=== PATIENT | female | born 1970 | race Caucasian/White ===

== ENCOUNTER 2017-08-20 13:04 | Emergency (ER) | payer MEDICAID, SELFPAY ==
--- NOTE | 2017-08-20 13:04 | DT_ITS ---
This patient was seen during an EMR downtime August 13, 2017 - August 20, 2017. This patient may have a combination of paper and electronic documentation or all paper documentation. All documentation is viewable within the e-chart portion of [facility] for each patient visit.
[2017-08-20 13:05] VITALS: BP 139/89; PULSE 85; RESP 16; TEMP 36.4; O2SAT 98; BMI 40.8
--- NOTE | 2017-08-20 13:44 | CT_ITS ---
STUDY: CT ABDOMEN AND PELVIS WITHOUT CONTRAST REASON FOR EXAM: Female, 47 years old. DIFFUSE ABD PAIN X 3 DAYS, HARD STOOL-NOW DIARRHEA -- CHOLECYSTECTOMY, HIATAL HERNIA, . RADIATION DOSAGE (If Supplied By Facility): CTDIvol = ( 17.43 ) mGy, DLP = ( 911.48 ) mGycm TECHNIQUE: Transaxial images were obtained from the dome of the diaphragm to the symphysis pubis without oral contrast, and without intravenous contrast. Sagittal and coronal images were reconstructed. Individualized dose optimization techniques were used for this CT. COMPARISON: August 24, 2016 FINDINGS: The visualized lung bases are unremarkable. The visualized portions of the heart are within normal limits. Normal liver. There is non-visualization of the gallbladder, which may be secondary to either contraction or a prior cholecystectomy. Normal spleen. Normal pancreas. Normal bilateral adrenal glands. Normal right kidney. Normal left kidney. Normal visualized stomach. Normal small intestine. Normal colon. The appendix is visualized and appears normal. Normal abdominal aorta. Normal inferior vena cava. Normal retroperitoneum. Normal urinary bladder. Normal abdominal wall. There are diffuse degenerative changes of the visualized lumbar spine. CT/Abdomen/Pelvis without Cont IMPRESSION: Unremarkable unenhanced CT of the abdomen and pelvis. Cholecystectomy Electronically Signed: Eduard Patel MD at 15:30 EDT Tel , Service support ,
--- NOTE | 2017-08-20 13:49 | ED.DCSUM_ITS ---
- ER Visit Summary Date of Service: 08/20/17 Chief Complaint: Abdominal pain History of Present Illness: The patient is a 47 F who presents for 3 days of abdominal pain. Patient states it is the worst stomachache she is ever had. It is diffuse and now radiating into the right lower quadrant. Patient has associated nausea. She has had multiple episodes of diarrhea with it. She saw her primary care doctor today and states an x-ray of the abdomen was normal and she was sent for further evaluation. No fever, chest pain, shortness of breath , urinary complaints. Patient is status post hysterectomy. Medical history remarkable for irritable bowel syndrome, fibromyalgia. Physical Examination: Vital signs: afebrile, hemodynamically stable, no hypoxia on room air General: well nourished, well developed, appears mildly uncomfortable, moving in bed without difficulty Skin: warm, dry, no rash, no pallor HEENT: normocephalic and atraumatic; PERRL, EOMI, moist mucous membranes Cardiovascular: Tachycardic rate and rhythm without murmurs, no peripheral edema , 2+ pulses all distal extremities Respiratory: No increased work of breathing, lungs are clear to auscultation bilaterally, no rales, rhonchi or wheezing Abdominal: Abdomen is soft, tender in the lower quadrant and epigastric region with normoactive bowel sounds, no guarding or rebound, no masses MSK: Moves all extremities, no deformities, normal strength Neuro: Awake and alert, oriented ?4. No facial droop, sensation and motor function intact and symmetric Test Results: Abnormal Lab Results 08/20/17 08/20/17 08/20/17 14:10 14:20 14:20 WBC 8.1 RBC 4.31 Hgb 12.1 Hct 35.9 L MCV 83.3 MCH 28.1 MCHC 33.7 RDW 14.0 RDW Differential 41.8 Plt Count 252 MPV 10.3 Immature Gran % (Auto) 0.100 Neut % (Auto) 70.9 H Lymph % (Auto) 21.6 [place] % (Auto) 6.3 Eos % (Auto) 0.9 Baso % (Auto) 0.2 Absolute Neuts (auto) 5.7 Absolute Lymphs (auto) 1.74 Total Counted Not Reportable Sodium 140 Potassium 3.8 Chloride 104 Carbon Dioxide 27.0 Anion Gap 9 BUN 8 Creatinine 0.72 Est GFR (MDRD) Af Amer 113 Est GFR (MDRD) Non-Af 93 BUN/Creatinine Ratio 11.2 Glucose 79 Calcium 8.7 Total Bilirubin 0.40 AST 12 L ALT 22 Alkaline Phosphatase 122 H Total Protein 7.6 Albumin 3.3 Globulin 4.3 H Albumin/Globulin Ratio 0.8 L Lipase 181 Urine Color Yellow Urine Clarity Sl. Cloudy Urine pH 5.0 Ur Specific [place] 1.025 Urine Protein 15 H Urine Glucose (UA) Normal Urine Ketones Negative Urine Occult Blood Negative Urine Nitrite Negative Urine Bilirubin Negative Urine Urobilinogen Normal Ur Leukocyte Esterase 25 H Urine RBC 0 SEEN Urine WBC 0-5 SEEN Ur Squamous Epith Cells 5-10 SEEN Urine Bacteria 1+ Urine Mucus 1+ Clinical Impression(s) from Imaging Studies Abdomen/Pelvis CT 08/20/17 13:44 IMPRESSION: Unremarkable unenhanced CT of the abdomen and pelvis. Cholecystectomy Electronically Signed: Eduard Patel MD at 15:30 EDT Tel , Service support , Emergency Department Course and Treatment: Patient presents for 3 days of abdominal pain, now with right lower quadrant pain. Because of this and tenderness in the right lower quadrant, workup to rule out appendicitis was performed. Had no leukocytosis, electrolyte derangements, renal or hepatic dysfunction. CT the abdomen and pelvis showed no acute process. Patient received Bentyl and Zofran as well as IV fluids while in the emergency department. On reevaluation she was feeling better. She was given a prescription for Bentyl and Zofran and instructions to follow-up with her primary care doctor. She was discharged home in improved condition. Treatment Plan: [] Disposition: [] Impression: Abdominal pain This note was generated with [employer] dictation software. It may contain incorrect words, spelling, and punctuation that were not noted in review of the chart prior to signing ED Disposition - Plan for ED Patient: Disposition: Home or Assisted Living Chief Complaint: Abd Pain Instructions: ED Abdominal Pain Unkn Cause Prescriptions: Ondansetron [Zofran Odt] 4 mg PO Q8H PRN PRN #10 tab PRN Reason: Nausea Dicyclomine HCl [Bentyl] 20 mg PO TIDAC #20 cap Referrals: Olguin,Tang, DO [Primary Care Provider] - 3-5 Days if not improving
[2017-08-20] MEDS: Dicyclomine 10 MG Capsule 20 MG PO (14:31)
[2017-08-20] MEDS: Ondansetron 4 MG/2 ML Vial IV (14:31)
[2017-08-20 14:38] LABS: Red Blood Cells-Urine 0 SEEN /hpf (0-5)
[2017-08-20 14:39] LABS: Absolute Lymphocyte Count 1.74 X10^3/ul (0.83-4.51); Absolute Neutrophil Count 5.7 X10^3/uL (2.0-7.7); Basophil# 0.02 X10^3/uL; Basophil% 0.2 % (0-1); Eosinophil# 0.07 X10^3/uL; Eosinophils% 0.9 % (0-5); Hematocrit 35.9 % (37-47); Hemoglobin 12.1 g/dl (12.0-15.0); Lymphocyte # 1.74 X10^3/ul (4.0); Lymphocyte % 21.6 % (19-41); Mean Corp Hgb Conc 33.7 g/gl (32-36); Mean Corpuscular Hgb 28.1 pg (27.0-32.0); Mean Corpuscular Volume 83.3 fL (81-99); Mean Platelet Vol. 10.3 fl (6.2-12.0); Monocyte# 0.51 X10^3/uL; Monocyte% 6.3 % (0-10); Neutrophil % 70.9 % (47-70); POSITIVE COUNT NO; POSITIVE DIFFERENTIAL NO; POSITIVE MORPHOLOGY NO; Platelet Count 252 K/mm3 (150-450); RBC Distribution Width SD 41.8 fl (35.1-43.9); Red Blood Count 4.31 M/mm3 (4.2-5.4); White Blood Count 8.1 K/mm3 (4.4-11.0)
[2017-08-20 14:40] LABS: Color, Urine Yellow (Yellow); Glucose, Dipstick Normal (Normal); Ketone-Dipstick Negative (Negative); Leukocyte Esterase-Dipstick 25 /ul (Negative); Nitrite-Dipstick Negative (Negative); Occult Blood-Urine Negative /ul (Negative); Protein-Dipstick 15 mg/dl (Negative); Specific Gravity, Urine 1.025 (1.002-1.030); Urine Bilirubin Dipstick Negative (Negative); Urine Clarity Sl. Cloudy (Clear); Urine Urobilinogen Normal (Normal)
[2017-08-20 14:46] LABS: Bacteria 1+ /hpf (None Seen); Mucous, Urine 1+ /hpf (<or=2+); Squamous Epithelial Cells - UA 5-10 SEEN /hpf (5-10); White Blood Cells 0-5 SEEN /hpf (0-5)
[2017-08-20 14:57] LABS: ALB/GLOB Ratio 0.8 RATIO (0.9-2.4); AST(SGOT) 12 U/L (15-37); Alanine Aminotransfer ALT/SGPT 22 U/L (13-56); Albumin, Serum 3.3 g/dL (3.2-5.0); Alkaline Phosphatase 122 U/L (45-117); Anion Gap 9 (5-15); BUN 8 mg/dL (7-18); BUN/Creat Ratio 11.2 RATIO (10-20); Calcium,Total 8.7 mg/dL (8.5-10.1); Chloride 104 mmol/L (98-107); Creatinine, Serum 0.72 mg/dL (0.55-1.02); EST Glomerular Filtration Rate 93 mL/min (>60); Est Glom Filt Rate - Afr Amer 113 mL/min (>60); Globulin 4.3 g/dL (2.2-4.2); Glucose 79 mg/dL (74-106); Lipase 181 U/L (73-393); Potassium 3.8 mmol/L (3.5-5.1); Protein, Total 7.6 g/dL (6.4-8.2); Sodium Level 140 mmol/L (136-145)
--- NOTE | 2017-08-20 16:07 | ED.DEP ---
ED Disposition - Plan for ED Patient: Disposition: Home or Assisted Living Chief Complaint: Abd Pain Instructions: ED Abdominal Pain Unkn Cause Prescriptions: Ondansetron [Zofran Odt] 4 mg PO Q8H PRN PRN #10 tab PRN Reason: Nausea Dicyclomine HCl [Bentyl] 20 mg PO TIDAC #20 cap Referrals: Tang Olguin DO [Primary Care Provider] - 3-5 Days if not improving
[2017-08-20 16:26] VITALS: BP 131/62; PULSE 75; RESP 16; O2SAT 98
== END 2017-08-20 16:27 | disposition home or self-care (01) ==
PROVIDERS: Emergency Provider Emergency Medicine; Family Provider Student in an Organized Health Care Education/Training Program; PCP Student in an Organized Health Care Education/Training Program
DX: R10.9 Unspecified abdominal pain (principal); Z90.710 Acquired absence of both cervix and uterus; K58.9 Irritable bowel syndrome, unspecified; M79.7 Fibromyalgia
CPT/HCPCS: 74176; 80053; 81001; 83690; 85025; 96374; 99284; A4216; J2405

== ENCOUNTER 2017-10-23 10:11 | Emergency (ER) | payer MEDICAID, SELFPAY ==
[2017-10-23 10:11] VITALS: BP 137/89; PULSE 77; RESP 12; TEMP 36.7; O2SAT 98; BMI 42.0
--- NOTE | 2017-10-23 11:16 | ED.VISSUMM ---
- ER Visit Summary Date of Service: 10/23/17 Chief Complaint: [Pain right leg] History of Present Illness: The patient is a 47 F [presents to the emergency department complaint of discomfort in her right leg that started yesterday. Patient's are with some mild soreness and then had aching throughout the night. Patient is concerned because she has had history of DVT in that leg before. Patient currently not on any anticoagulation. 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 Patient denies any chest pain or shortness of breath. Patient denies any trauma to her leg.] Physical Examination: [HEENT-PERRLA, EOMI. Cranial nerves II through XII grossly intact. TMs clear. Mucous membranes moist. No adenopathy. Cardiovascular-regular rate and rhythm without murmur or ectopy Lungs-clear to auscultation, chest wall stable without crepitus or subcu emphysema Abdomen-normoactive bowel sounds, soft, nontender, no rebound or rigidity, no peritoneal signs. Extremities-intact ?4, normal range of motion, normal pulses, atraumatic]. Right leg-patient does have some tenderness to the distal third medial aspect of the right lower extremity without evidence of edema or erythema. Patient has normal dorsal pedal, posterior tibial, popliteal pulses. Normal range of motion at the ankle and toes. Test Results: [Venous duplex of the right lower extremity obtained was negative for DVT] Emergency Department Course and Treatment: [] Treatment Plan: [I advised use of ibuprofen or naproxen for discomfort. Patient to follow-up with primary care physician in 5-7 days.] Disposition: [Discharged home in stable condition] Impression: [Right leg pain-etiology uncertain] This note was generated with [employer] dictation software. It may contain incorrect words, spelling, and punctuation that were not noted in review of the chart prior to signing ED Disposition - Plan for ED Patient: Chief Complaint: Other, Pain/Inj Referrals: Tang Olguin DO [Primary Care Provider] -
--- NOTE | 2017-10-23 11:19 | ED.DEP ---
ED Disposition - Plan for ED Patient: Chief Complaint: Other, Pain/Inj Instructions: ED Contusion Lower Ext Referrals: Tang Olguin DO [Primary Care Provider] - 5-7 Days
== END 2017-10-23 11:36 | disposition home or self-care (01) ==
LOC: ED 11:29
PROVIDERS: Emergency Provider Emergency Medicine; Family Provider Student in an Organized Health Care Education/Training Program; PCP Student in an Organized Health Care Education/Training Program
DX: M79.604 Pain in right leg (principal); R05 Cough; K21.9 Gastro-esophageal reflux disease without esophagitis; M79.7 Fibromyalgia; Z86.718 Personal history of other venous thrombosis and embolism
CPT/HCPCS: 93971; 99282

== ENCOUNTER 2017-11-04 22:03 | Emergency (ER) | payer MEDICAID, SELFPAY ==
[2017-11-04 22:04] VITALS: BP 121/80; PULSE 77; RESP 16; TEMP 36.7; O2SAT 98; BMI 41.5
--- NOTE | 2017-11-04 22:56 | ED.DEP ---
ED Disposition - Plan for ED Patient: Chief Complaint: Upper Extremity Injury Instructions: ED Sprain Wrist Referrals: Tang Olguin DO [Primary Care Provider] -
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
[2017-11-04] MEDS: Ibuprofen 600 MG Tablet PO (23:02)
== END 2017-11-04 23:05 | disposition home or self-care (01) ==
PROVIDERS: Emergency Provider Emergency Medicine; Family Provider Student in an Organized Health Care Education/Training Program; PCP Student in an Organized Health Care Education/Training Program
DX: S63.502A Unspecified sprain of left wrist, initial encounter (principal); X58.XXXA Exposure to other specified factors, initial encounter; Y93.83 Activity, rough housing and horseplay; Y92.9 Unspecified place or not applicable; Y99.9 Unspecified external cause status; K21.9 Gastro-esophageal reflux disease without esophagitis; M79.7 Fibromyalgia; F32.9 Major depressive disorder, single episode, unspecified
CPT/HCPCS: 73110; 99283

== ENCOUNTER 2017-11-09 11:08 | Emergency (ER) | payer MEDICAID, SELFPAY ==
[2017-11-09 11:09] VITALS: BP 126/86; PULSE 82; RESP 18; TEMP 36.3; O2SAT 98; BMI 42.0
[2017-11-09] MEDS: Aspirin 81 MG TAB.CHEW 324 MG PO (11:49)
[2017-11-09 12:09] VITALS: O2SAT 100
[2017-11-09 12:12] LABS: Absolute Lymphocyte Count 1.65 X10^3/ul (0.83-4.51); Absolute Neutrophil Count 5.5 X10^3/uL (2.0-7.7); Basophil# 0.02 X10^3/uL; Basophil% 0.3 % (0-1); Eosinophil# 0.08 X10^3/uL; Hematocrit 38.3 % (37-47); Hemoglobin 12.4 g/dl (12.0-15.0); Lymphocyte # 1.65 X10^3/ul (4.0); Lymphocyte % 21.3 % (19-41); Mean Corp Hgb Conc 32.4 g/gl (32-36); Mean Corpuscular Hgb 26.9 pg (27.0-32.0); Mean Corpuscular Volume 83.1 fL (81-99); Mean Platelet Vol. 10.1 fl (6.2-12.0); Monocyte# 0.44 X10^3/uL; Monocyte% 5.7 % (0-10); Neutrophil # 5.54 X10^3/uL (2.7-7.7); Neutrophil % 71.6 % (47-70); Platelet Count 271 K/mm3 (150-450); RBC Distribution Width CV 13.7 % (11.6-14.6); RBC Distribution Width SD 40.8 fl (35.1-43.9); Red Blood Count 4.61 M/mm3 (4.2-5.4); White Blood Count 7.7 K/mm3 (4.4-11.0)
[2017-11-09 12:15] LABS: POSITIVE COUNT NO; POSITIVE DIFFERENTIAL NO; POSITIVE MORPHOLOGY NO
[2017-11-09 12:24] LABS: Anion Gap 9 (5-15); BUN 7 mg/dL (7-18); BUN/Creat Ratio 9.6 RATIO (10-20); Calcium,Total 8.6 mg/dL (8.5-10.1); Chloride 103 mmol/L (98-107); Creatinine, Serum 0.73 mg/dL (0.55-1.02); EST Glomerular Filtration Rate 91 mL/min (>60); Est Glom Filt Rate - Afr Amer 110 mL/min (>60); Estimated Creatinine Clearance 76.16 ml/min; Glucose 83 mg/dL (74-106); Potassium 4.1 mmol/L (3.5-5.1); Sodium Level 140 mmol/L (136-145)
[2017-11-09 12:51] LABS: D-Dimer Quantitative (DVT/PE) < 0.27 FEU/ug/m (0.27-0.49)
--- NOTE | 2017-11-09 13:59 | ED.VISSUMM ---
- ER Visit Summary Date of Service: 11/09/17 Chief Complaint: Cough with chest pain History of Present Illness: The patient is a 47 F prior history of DVTs ?2. History also of irritable bowel, PTSD, fibromyalgia and reflux. Patient's had no recent surgery, hospitalization or travel. No leg pain or swelling. 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 She denies any hemoptysis. She has had DVTs in the past but no prior PE. Patient last 2 days she has had a cough that has been nonproductive with some chest discomfort. At times it is pleuritic. She denies any significant shortness of breath. She is not on any type of control pill and she has had a prior hysterectomy. Primary care physician sent the patient to urgent care today who then sent her into ER. Physical Examination: Well-appearing middle-age female. Vital signs are stable afebrile pulse ox 90% room air no signs of hypoxia. No distress. No tachycardia. H EENT exam unremarkable. Neck nontender no lymphadenopathy. Lungs clear to auscultation bilaterally. Dry cough. No rales no rhonchi no wheezing. Equal symmetrical. Heart regular rate and rhythm no murmur. Abdomen soft nontender. Normal bowel sounds no peritoneal signs. She is moving all 4 extremities. Nontender no edema no cords neurologically she is awake and alert with no Test Results: Chest x-ray shows normal cardiac silhouette and mediastinum. No pneumonia. EKG sinus rhythm rate is 73. No S1 nor to 3 nor T3. CBC normal. White count 7 hemoglobin 12 electrolytes unremarkable. Troponin normal. D-dimer less than 0.27. Normal. Multiple repeat exams patient is doing well. Emergency Department Course and Treatment: Clinically and by labs this is consistent with a viral URI. I do not think she is a PE. I do not think this is cardiac chest pain. I discussed all that with the patient going over her test results. She will be discharged to home. Treatment Plan: Treated as a viral URI. Tylenol and Motrin for pain. Follow-up with her doctor as needed return to the ER if worse. Disposition: discharge Impression: Viral URI with chest pain This note was generated with [employer] software. It may contain incorrect words, spelling, and punctuation that were not noted in review of the chart prior to signing ED Disposition - Plan for ED Patient: Chief Complaint: General Illness Referrals: Tang Olguin DO [Primary Care Provider] -
--- NOTE | 2017-11-09 14:03 | ED.DEP ---
ED Disposition - Plan for ED Patient: Disposition: Home or Assisted Living Chief Complaint: General Illness Instructions: ED URI Viral Referrals: Tang Olguin DO [Primary Care Provider] - 1 Week if not improving Additional Instructions: Tylenol and/or Motrin for pain. Your exam, history and labs consistent with a viral URI. Follow-up with primary care physician if not improving or return to ER if feeling a lot worse.
[2017-11-09 14:12] VITALS: BP 121/79; PULSE 73; RESP 16; O2SAT 99
== END 2017-11-09 14:12 | disposition home or self-care (01) ==
PROVIDERS: Emergency Provider Emergency Medicine; Family Provider Student in an Organized Health Care Education/Training Program; PCP Student in an Organized Health Care Education/Training Program
DX: J06.9 Acute upper respiratory infection, unspecified (principal); R07.9 Chest pain, unspecified; K21.9 Gastro-esophageal reflux disease without esophagitis; M79.7 Fibromyalgia; Z86.718 Personal history of other venous thrombosis and embolism; Z79.01 Long term (current) use of anticoagulants; F43.10 Post-traumatic stress disorder, unspecified; K58.9 Irritable bowel syndrome, unspecified
CPT/HCPCS: 71045; 80048; 84484; 85025; 85379; 93005; 99285; A4216

== ENCOUNTER 2017-11-23 04:12 | Emergency (ER) | payer MEDICAID, SELFPAY ==
[2017-11-23 04:13] VITALS: BP 117/76; PULSE 70; RESP 20; TEMP 36.5; O2SAT 99; BMI 41.7
--- NOTE | 2017-11-23 04:28 | CT_ITS ---
STUDY: CT ABDOMEN AND PELVIS WITH CONTRAST REASON FOR EXAM: Female, 47 years old. Upper abdominal pain after drinking prep for scheduled colonoscopy today. History of GERD, hiatal hernia, HLD, hypertension RADIATION DOSAGE (If Supplied By Facility): CTDIvol = ( 20.34 ) mGy, DLP = ( 1276.29 ) mGycm TECHNIQUE: Transaxial 3.75 mm images were obtained from the dome of the diaphragm to the symphysis pubis without oral contrast. 100 ml of Isovue 300 contrast was administered. Sagittal and coronal images were reconstructed. There is obesity, the entirety of soft tissue is not imaged. Individualized dose optimization techniques were used for this CT. COMPARISON: CT abdomen pelvis 08/20/2017. 08/24/2016. 02/11/2016 FINDINGS: The visualized lung bases are unremarkable. The visualized portions of the heart are within normal limits. There is decreased attenuation of the liver consistent with steatosis. Nonvisualized gallbladder and mild prominence of the extrahepatic biliary system which can be seen with cholecystectomy.. Normal spleen. Normal pancreas. Normal bilateral adrenal glands. Normal right kidney. Normal left kidney. Normal visualized stomach. Normal small intestine. Normal colon. The appendix is visualized and appears normal. Normal abdominal aorta. Normal inferior vena cava. Normal retroperitoneum. Decompressed urinary bladder. There is absence of the uterus consistent with a prior hysterectomy. Normal abdominal wall. Stable small focal sclerosis involving the right humeral head, posterior right acetabulum, posterior L5 vertebral body since 2015 felt to be benign entity such as bone islands. Stable mild levoscoliosis. CT/Abdomen/Pelvis W IV Cont ONLY IMPRESSION: There is no acute abdomen and pelvic pathology. There is no significant interval change. Electronically Signed: Madeleine Little MD at 5:15 EDT , Service support ,
[2017-11-23] MEDS: Ondansetron 4 MG/2 ML Vial IV (04:34)
[2017-11-23] MEDS: 0.9% Normal Saline 1,000 ML 1000 ML IV (04:34)
[2017-11-23] MEDS: Morphine 4 MG/ML Syringe IV (04:34)
[2017-11-23 04:51] LABS: Absolute Lymphocyte Count 1.85 X10^3/ul (0.83-4.51); Absolute Neutrophil Count 6.1 X10^3/uL (2.0-7.7); Basophil# 0.03 X10^3/uL; Basophil% 0.3 % (0-1); Eosinophil# 0.07 X10^3/uL; Eosinophils% 0.8 % (0-5); Hematocrit 38.4 % (37-47); Hemoglobin 12.8 g/dl (12.0-15.0); Lymphocyte # 1.85 X10^3/ul (4.0); Lymphocyte % 21.4 % (19-41); Mean Corp Hgb Conc 33.3 g/gl (32-36); Mean Corpuscular Hgb 27.5 pg (27.0-32.0); Mean Corpuscular Volume 82.6 fL (81-99); Monocyte# 0.53 X10^3/uL; Monocyte% 6.1 % (0-10); Neutrophil # 6.13 X10^3/uL (2.7-7.7); Neutrophil % 71.2 % (47-70); Platelet Count 289 K/mm3 (150-450); RBC Distribution Width CV 13.7 % (11.6-14.6); RBC Distribution Width SD 40.3 fl (35.1-43.9); Red Blood Count 4.65 M/mm3 (4.2-5.4); White Blood Count 8.6 K/mm3 (4.4-11.0)
[2017-11-23 04:52] LABS: Differential Indicated SCAN CRITERIA MET; POSITIVE COUNT NO; POSITIVE DIFFERENTIAL NO; POSITIVE MORPHOLOGY YES
[2017-11-23 04:58] LABS: ALB/GLOB Ratio 0.7 RATIO (0.9-2.4); AST(SGOT) 15 U/L (15-37); Alanine Aminotransfer ALT/SGPT 19 U/L (13-56); Albumin, Serum 3.2 g/dL (3.2-5.0); Alkaline Phosphatase 109 U/L (45-117); Anion Gap 10 (5-15); BUN 10 mg/dL (7-18); BUN/Creat Ratio 11.8 RATIO (10-20); Calcium,Total 8.8 mg/dL (8.5-10.1); Chloride 106 mmol/L (98-107); Creatinine, Serum 0.85 mg/dL (0.55-1.02); EST Glomerular Filtration Rate 77 mL/min (>60); Est Glom Filt Rate - Afr Amer 93 mL/min (>60); Estimated Creatinine Clearance 65.41 ml/min; Globulin 4.4 g/dL (2.2-4.2); Glucose 112 mg/dL (74-106); Lipase 91 U/L (73-393); Potassium 3.4 mmol/L (3.5-5.1); Protein, Total 7.6 g/dL (6.4-8.2); Sodium Level 141 mmol/L (136-145)
--- NOTE | 2017-11-23 05:25 | ED.VISSUMM ---
- ER Visit Summary Date of Service: 11/23/17 Chief Complaint: Abdominal pain History of Present Illness: The patient is a 47 F with abdominal pain that started about 1-1/2 hours prior to arrival while the patient was sitting on the toilet. She describes the pain over her upper abdomen as cramping and burning. Associated with nausea and dry heaves. The patient took GoLYTELY yesterday as a bowel prep for colonoscopy later this morning. Her last dose of GoLYTELY was yesterday at 9:30 PM. The pain started this morning around 2:45 AM and she presents today around 4:15 AM. She has a colonoscopy later today at 8 AM. No other associated symptoms. No history of this in the past. She does have a history of cholecystectomy, section, hysterectomy, et al. Physical Examination: Afebrile and vital signs unremarkable. Patient is tearful and appears very uncomfortable. Heart regular rate and rhythm. Lungs clear. Abdomen is tender to palpation with light touch diffusely. No guarding or rebound. Skin appears normal in color without jaundice, diaphoresis, or pallor. Test Results: CBC normal. Potassium 3.4 and glucose 112. Liver panel and lipase normal. CT showed no acute findings. Emergency Department Course and Treatment: Patient treated with fluids, morphine, and Zofran while awaiting results. She was n.p.o. I suspect her symptoms are related to the GoLYTELY. It can cause cramping and pain. He can also cause colitis. The patient is having very severe pain and is tearful. Because of her severe symptoms, workup was pursued. It was unremarkable. On reevaluation, the patient is feeling better. She would like to follow-up with her doctor this morning at 8 AM for the colonoscopy. Patient will be discharged. Return for any new or worsening issues. Treatment Plan: As above Disposition: Discharged Impression: 1. Abdominal pain This note was generated with [employer] dictation software. It may contain incorrect words, spelling, and punctuation that were not noted in review of the chart prior to signing ED Disposition - Plan for ED Patient: Chief Complaint: Abd Pain Referrals: Tang Olguin DO [Primary Care Provider] -
--- NOTE | 2017-11-23 05:29 | ED.DCSUM_ITS ---
- ER Visit Summary Date of Service: 11/23/17 Chief Complaint: Abdominal pain History of Present Illness: The patient is a 47 F with abdominal pain that started about 1-1/2 hours prior to arrival while the patient was sitting on the toilet. She describes the pain over her upper abdomen as cramping and burning. Associated with nausea and dry heaves. The patient took GoLYTELY yesterday as a bowel prep for colonoscopy later this morning. Her last dose of GoLYTELY was yesterday at 9:30 PM. The pain started this morning around 2:45 AM and she presents today around 4:15 AM. She has a colonoscopy later today at 8 AM. No other associated symptoms. No history of this in the past. She does have a history of cholecystectomy, section, hysterectomy, et al. Physical Examination: Afebrile and vital signs unremarkable. Patient is tearful and appears very uncomfortable. Heart regular rate and rhythm. Lungs clear. Abdomen is tender to palpation with light touch diffusely. No guarding or rebound. Skin appears normal in color without jaundice, diaphoresis, or pallor. Test Results: CBC normal. Potassium 3.4 and glucose 112. Liver panel and lipase normal. CT showed no acute findings. Emergency Department Course and Treatment: Patient treated with fluids, morphine , and Zofran while awaiting results. She was n.p.o. I suspect her symptoms are related to the GoLYTELY. It can cause cramping and pain. He can also cause colitis. The patient is having very severe pain and is tearful. Because of her severe symptoms, workup was pursued. It was unremarkable. On reevaluation, the patient is feeling better. She would like to follow-up with her doctor this morning at 8 AM for the colonoscopy. Patient will be discharged. Return for any new or worsening issues. Treatment Plan: As above Disposition: Discharged Impression: 1. Abdominal pain This note was generated with [employer] dictation software. It may contain incorrect words, spelling, and punctuation that were not noted in review of the chart prior to signing ED Disposition - Plan for ED Patient: Chief Complaint: Abd Pain Referrals: Tang Olguin DO [Primary Care Provider] -
--- NOTE | 2017-11-23 05:29 | ED.DEP ---
ED Disposition - Plan for ED Patient: Chief Complaint: Abd Pain Instructions: ED Abdominal Pain Unkn Cause Referrals: Tang Olguin DO [Primary Care Provider] -
[2017-11-23 05:44] VITALS: BP 114/60; PULSE 87; RESP 18; O2SAT 98
== END 2017-11-23 05:45 | disposition home or self-care (01) ==
LOC: ED 04:36
PROVIDERS: Emergency Provider Emergency Medicine; Family Provider Student in an Organized Health Care Education/Training Program; PCP Student in an Organized Health Care Education/Training Program
DX: R10.9 Unspecified abdominal pain (principal); R11.2 Nausea with vomiting, unspecified; I10 Essential (primary) hypertension; M79.7 Fibromyalgia; Z90.49 Acquired absence of other specified parts of digestive tract; Z90.710 Acquired absence of both cervix and uterus; Z86.010 Personal history of colon polyps
CPT/HCPCS: 74177; 80053; 83690; 85025; 96361; 96374; 96375; 99285; Q9967; A4216; J2405

== ENCOUNTER 2018-05-06 16:27 | Emergency (ER) | payer MEDICAID, SELFPAY ==
[2018-05-06 16:28] VITALS: BP 136/84; PULSE 106; PULSE 107; RESP 17; RESP 18; TEMP 37.1; O2SAT 98; BMI 42.1
--- NOTE | 2018-05-06 16:39 | EKG12_ITS ---
Test Reason : CP Blood Pressure : / mmHG Vent. Rate : 094 BPM Atrial Rate : 094 BPM P-R Int : 146 ms QRS Dur : 070 ms QT Int : 342 ms P-R-T Axes : 053 020 031 degrees QTc Int : 427 ms Normal sinus rhythm Poor R wave progression Confirmed by PAM NAVARRO, JULIANA ([id number]), acquisition editor [employer] ([id number]) on 05/08/2018 10:06:59 AM Referred By: YVES Confirmed By:JULIANA OROZCO MD
--- NOTE | 2018-05-06 18:03 | CT_ITS ---
STUDY: CT ABDOMEN AND PELVIS WITH CONTRAST REASON FOR EXAM: Female, 47 years old. Abdominal pain with nausea and vomiting RADIATION DOSAGE (If Supplied By Facility): CTDIvol = ( 17.07 ) mGy, DLP = ( 1261.41 ) mGycm TECHNIQUE: Transaxial images were obtained from the dome of the diaphragm to the symphysis pubis without oral contrast. Isovue 300 100ML IV/Oral was administered. Sagittal and coronal images were reconstructed. Individualized dose optimization techniques were used for this CT. COMPARISON: November 23, 2017 FINDINGS: The visualized lung bases are unremarkable. The visualized portions of the heart are within normal limits. Normal liver. Gallbladder not visualized consistent with cholecystectomy.. Normal spleen. Normal pancreas. Normal bilateral adrenal glands. Normal right kidney. Normal left kidney. Normal visualized stomach. Normal small intestine. Minor diverticular changes of sigmoid colon without evidence for acute diverticulitis . There is no evidence for acute appendicitis. There are tiny subcentimeter mesenteric nodes with stranding in the fat consistent with nonspecific mesenteric adenitis Normal abdominal aorta. Normal inferior vena cava. Normal retroperitoneum. Normal urinary bladder. Uterus not visualized consistent with hysterectomy Normal abdominal wall. Lumbar spine demonstrates mild spondylosis CT/Abdomen/Pelvis WITH Contrast IMPRESSION: Findings which may be consistent with nonspecific mesenteric adenitis. Status post cholecystectomy and hysterectomy Electronically Signed: Moises Hussein MD at 20:24 EST , Service support ,
--- NOTE | 2018-05-06 18:05 | ED.VIS.GEN ---
History of Present Illness Chief Complaint: General Illness Detail of Chief Complaint: Generalized abdominal pain with nausea, vomiting and diarrhea Informant: Patient Onset: Yesterday Context: Sudden Onset Timing: Continuous, Waxes and wanes Quality: Achy Location: Generalized Current Severity: Mild Maximum Severity: Severe Worsened by: Walking and car ride to the emergency department Relieved by: Nothing Associated Symptoms: Subjective fever with sweats Narrative: Patient middle-aged woman who presents with generalized abdominal pain with nausea, vomiting diarrhea that started last evening. She reports 4 episodes of emesis. She reports greater than 10 loose watery stools. She denies black or maroon colored diarrhea. She denies mucus or blood in her diarrhea. She has not had anything to eat that did not taste normal to her. She was on metronidazole for vaginal infection. 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 She states her client is at [facility] with GI symptoms. She denies history of Pseudomonas enterocolitis. She does report decreased urine output. She does report headache, myalgias, arthralgias slight nonproductive cough. She denies rash. She denies photophobia, neck pain or neck stiffness. Past Medical History - Allergies and Home Meds Allergies/Adverse Reactions: Allergies hydromorphone HCl [From Dilaudid] Allergy (Verified 05/06/18 16:28) Chest tightness warfarin sodium [From Coumadin] Allergy (Verified 05/06/18 16:28) Chest tightness milnacipran HCl [From Savella] Adverse Reaction (Verified 05/06/18 16:28) Other rivaroxaban [From Xarelto] Adverse Reaction (Verified 05/06/18 16:28) Nausea Primary Care Physician: Tang Olguin DO [Primary Care Provider] - Past Medical History: - - Hiatal hernia, GERD, fibromyalgia, DVT, depression and history of overdose Surgical History: cholecystectomy, - - , foot surgery for plantar fasciitis, breast reduction, uterine ablation,egd,carpal tunnel Lives: Spouse/ Significant Other, With Family Smoking Status: Never smoker Drugs: None - Family History Maternal Family History: Reports: Pulmonary Disease, No pertinent history, - - no history of CVD or CVA's, no FH of migraines, Paternal Family History: Reports: Pulmonary Disease Sibling Family History: Reports: - - sister with fibromyalgia Review of Systems General: Reports: Chills, Fever, Malaise, Sweats Eyes: Denies: Visual changes - bilaterally, Blurred Vision - bilaterally, Diplopia ENT: Denies: Bilateral ear pain, Rhinorrhea, Sore throat Cardiovascular: Reports: - - She does report lightheadedness with standing. Denies: Chest pain, Palpitations Respiratory: Reports: Cough. Denies: Dyspnea, Dyspnea on exertion Gastrointestinal: Reports: Abdominal pain, Nausea, Vomiting, Diarrhea, Melena, Hematochezia Genitourinary: Denies: Dysuria, Hematuria, Frequency Musculoskeletal: Reports: Myalgias, Arthralgias. Denies: Neck pain, Back pain, Extremity Pain Skin: Denies: Rash, Wounds Neurological: Denies: Headache, Weakness, Numbness Endocrine: Denies: Polyuria, Polydipsia Hematologic: Denies: Easy bruising Allergy: Denies: Uticaria, Swelling of the mouth Physical Exam Vital Signs/Narrative: Vital Signs Temp Pulse Resp BP Pulse Ox 05/06/18 16:28 98.8 F 107 H 18 136/84 H 98 Inital Vital Signs reviewed: Yes General: Well nourished, Well developed, Obese, No Acute Distress, Acute Distress Eyes: Perrl, EOMI. Negative for: Pale conjunctiva, Scleral icterus ENT: No rhinorrhea, TM's clear, Dry mucous membranes, Nasal congestion Neck: Supple, Nontender, No lymphadenopathy, No JVD Cardiovascular: Regular rhythm, No murmurs, Tachycardia. Negative for: Regular rate Respiratory: No distress, CTA bilaterally, Chest nontender Abdomen: Soft, Nondistended, No masses, Tender, Guarding, Rebound tenderness, Hypoactive bowel sounds, - - Patient has well-healed scars.. Negative for: Normal bowel sounds, Hepatomegaly, Splenomegaly Back: Nontender, Normal Inspection Extremities: Nontender, No edema. Negative for: Edema Skin: Normal color, No rash. Negative for: Cyanosis, Jaundice Neurological: Alert, Oriented x3, Cranial nerves II-XII grossly intact, Normal Strength, Normal Sensation Psychological: Normal affect, Normal Mood Diagnostic/Tx/Re-eval CBC and basic metabolic panel unremarkable. CT of the abdomen with IV and p.o. contrast reveals mesenteric adenitis. - Medical Decision Making Basic metabolic panel was obtained to assess electrolytes and renal function. CBC was obtained to assess for anemia and white count. CT of the abdomen and pelvis with IV and p.o. contrast was obtained since patient has peritoneal findings. This may represent infectious diarrhea, versus viral, versus inflammatory bowel disorder. She denies history of diverticulosis or diverticulitis. Patient has viral illness causing nausea, vomiting diarrhea and mesenteric adenitis as the cause of her pain. Will treat with appropriate medication for pain and discharged home ED Disposition - Plan for ED Patient: Disposition: Home or Assisted Living Diagnosis: Acute mesenteric adenitis, Nausea vomiting and diarrhea, Abdominal pain, Mild dehydration Instructions: ED Adenitis Mesenteric Prescriptions: Dicyclomine HCl [Bentyl] 20 mg PO TIDAC #20 capsule Referrals: Tang Olguin DO [Primary Care Provider] - 1 Week if not improving Additional Instructions: 1. Your prescription was electronically transmitted to [facility] pharmacy on [address] your designated pharmacy. 2. You have a viral illness causing your pain as well as vomiting diarrhea. 3. Take Imodium as instructed on box for diarrhea
[2018-05-06] MEDS: Morphine 4 MG/ML Syringe IV (18:17)
[2018-05-06] MEDS: Ondansetron 4 MG/2 ML Vial IV (18:17)
[2018-05-06] MEDS: 0.9% Normal Saline 1,000 ML 1000 ML IV (18:17)
[2018-05-06 18:31] VITALS: TEMP 37
[2018-05-06 18:39] LABS: Anion Gap 8 (5-15); BUN 13 mg/dL (7-18); BUN/Creat Ratio 16.2 RATIO (10-20); Calcium,Total 8.3 mg/dL (8.5-10.1); Chloride 106 mmol/L (98-107); EST Glomerular Filtration Rate 82 mL/min (>60); Est Glom Filt Rate - Afr Amer 99 mL/min (>60); Glucose 86 mg/dL (74-106); Potassium 3.8 mmol/L (3.5-5.1); Sodium Level 140 mmol/L (136-145)
[2018-05-06 18:49] LABS: Absolute Lymphocyte Count 1.02 X10^3/ul (0.83-4.51); Absolute Neutrophil Count 5.6 X10^3/uL (2.0-7.7); Basophil# 0.01 X10^3/uL; Basophil% 0.1 % (0-1); Eosinophil# 0.08 X10^3/uL; Eosinophils% 1.1 % (0-5); Hematocrit 39.9 % (37-47); Hemoglobin 12.6 g/dl (12.0-15.0); Lymphocyte # 1.02 X10^3/ul (4.0); Lymphocyte % 14.4 % (19-41); Mean Corp Hgb Conc 31.6 g/gl (32-36); Mean Corpuscular Hgb 26.9 pg (27.0-32.0); Mean Corpuscular Volume 85.3 fL (81-99); Mean Platelet Vol. 9.6 fl (6.2-12.0); Monocyte# 0.38 X10^3/uL; Monocyte% 5.4 % (0-10); Neutrophil # 5.58 X10^3/uL (2.7-7.7); Neutrophil % 78.9 % (47-70); Platelet Count 263 K/mm3 (150-450); RBC Distribution Width CV 14.7 % (11.6-14.6); RBC Distribution Width SD 45.6 fl (35.1-43.9); Red Blood Count 4.68 M/mm3 (4.2-5.4); White Blood Count 7.1 K/mm3 (4.4-11.0)
[2018-05-06 18:52] LABS: POSITIVE COUNT NO; POSITIVE DIFFERENTIAL NO; POSITIVE MORPHOLOGY NO
[2018-05-06 19:04] VITALS: BP 128/87; PULSE 78; RESP 17; O2SAT 98
[2018-05-06 19:26] VITALS: BP 125/82; PULSE 76; RESP 13; TEMP 37; O2SAT 100
[2018-05-06] MEDS: Dicyclomine 10 MG Capsule 20 MG PO (21:24)
[2018-05-06] MEDS: Ondansetron ODT 4 MG Tablet 16 MG PO (21:25)
[2018-05-06 21:26] VITALS: BP 109/72; BP 109/82; PULSE 82; RESP 18; TEMP 37; O2SAT 97
== END 2018-05-06 21:28 | disposition home or self-care (01) ==
PROVIDERS: Emergency Provider Emergency Medicine; Family Provider Student in an Organized Health Care Education/Training Program; PCP Student in an Organized Health Care Education/Training Program
DX: I88.0 Nonspecific mesenteric lymphadenitis (principal); R11.2 Nausea with vomiting, unspecified; R19.7 Diarrhea, unspecified; R10.9 Unspecified abdominal pain; E86.0 Dehydration; Z90.49 Acquired absence of other specified parts of digestive tract; K21.9 Gastro-esophageal reflux disease without esophagitis; Z86.718 Personal history of other venous thrombosis and embolism
CPT/HCPCS: 74177; 80048; 83605; 85025; 93005; 96361; 96374; 96375; 99284; J7030; Q9967; J2405

== ENCOUNTER 2018-05-27 11:46 | Emergency (ER) | payer MEDICAID, SELFPAY ==
--- NOTE | 2018-05-27 11:30 | EKG12_ITS ---
Test Reason : CP Blood Pressure : / mmHG Vent. Rate : 079 BPM Atrial Rate : 079 BPM P-R Int : 156 ms QRS Dur : 072 ms QT Int : 354 ms P-R-T Axes : 054 012 027 degrees QTc Int : 405 ms Normal sinus rhythm Normal ECG Confirmed by MARCIAL NAVARRO, DIPESH ([id number]), content editor DAMARI PACK ([id number]) on 05/28/2018 2:16:49 PM Referred By: DANA/GILMAR Confirmed By:DIPESH CEJA MD
[2018-05-27 11:47] VITALS: BP 157/96; PULSE 93; RESP 17; TEMP 35.9; O2SAT 100; BMI 41.5
--- NOTE | 2018-05-27 12:15 | ED.DCSUM_ITS ---
History of Present Illness Chief Complaint: Chest Pain Informant: Patient Onset: Yesterday Context: Sudden Onset Timing: Continuous Quality: Sharp Location: Left anterior Current Severity: Mild Maximum Severity: Moderate Worsened by: Movement and breathing Relieved by: Nothing Associated Symptoms: Nothing Narrative: Patient is a middle-aged woman with a history of hypertension and fibromyalgia who presents with left-sided chest pain. 3 weeks ago she was diagnosed with bronchitis. She reports mild congestion. She denies headache, photophobia, neck pain or neck stiffness. She denies sore throat. She denies shortness of breath, dyspnea on exertion, orthopnea or PND. She has no history of PE or DVT. She denies leg pain, swelling or discoloration. 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 (morbid obesity) Status: Chronic (8) Ovarian cyst Status: Chronic Past Medical History - Allergies and Home Meds Allergies/Adverse Reactions: Allergies hydromorphone HCl [From Dilaudid] Allergy (Verified 05/27/18 11:47) Chest tightness warfarin sodium [From Coumadin] Allergy (Verified 05/27/18 11:47) Chest tightness milnacipran HCl [From Savella] Adverse Reaction (Verified 05/27/18 11:47) Other rivaroxaban [From Xarelto] Adverse Reaction (Verified 05/27/18 11:47) Nausea Primary Care Physician: Tang Olguin DO [Primary Care Provider] - Prior records reviewed: Yes - Per old records/problem list history of DVT Surgical History: cholecystectomy, - - , foot surgery for plantar fasciitis, breast reduction, uterine ablation,egd,carpal tunnel Smoking Status: Never smoker - Family History Maternal Family History: Reports: Pulmonary Disease, No pertinent history, - - no history of CVD or CVA's, no FH of migraines, Paternal Family History: Reports: Pulmonary Disease Sibling Family History: Reports: - - sister with fibromyalgia Review of Systems General: Denies: Chills, Fever, Sweats Eyes: Denies: Visual changes - bilaterally, Diplopia ENT: Denies: Rhinorrhea, Sore throat Cardiovascular: Reports: Chest pain. Denies: Palpitations Respiratory: Denies: Dyspnea, Cough, Dyspnea on exertion, Orthopnea, Paroxysmal nocturnal dyspnea Gastrointestinal: Denies: Abdominal pain, Nausea, Vomiting, Diarrhea, Melena, Hematochezia Genitourinary: Denies: Dysuria, Hematuria, Frequency Musculoskeletal: Denies: Myalgias, Arthralgias, Back pain, Extremity Pain Skin: Denies: Rash, Wounds Neurological: Denies: Headache, Weakness, Numbness Psych: Reports: Depression Hematologic: Denies: Easy bruising, Easy bleeding Allergy: Denies: Uticaria, Swelling of the mouth, Swelling of the tongue Physical Exam Vital Signs/Narrative: Vital Signs Temp Pulse Resp BP Pulse Ox 05/27/18 11:47 96.6 F L 93 17 157/96 H 100 General: Well nourished, Well developed, No Acute Distress Head: Normocephalic, Atraumatic Eyes: Perrl, EOMI ENT: Moist mucous membranes, No rhinorrhea Neck: Supple, Nontender Cardiovascular: Regular rate, Regular rhythm, No murmurs Respiratory: No distress, CTA bilaterally, Chest tenderness - Left fourth fifth intercostal space Abdomen: Soft, Nontender, Nondistended, Normal bowel sounds. Negative for: Hepatomegaly, Splenomegaly, Mass, Pulsatile mass Back: Nontender, Normal Inspection Extremities: Nontender, No edema, - - There is no asymmetry, swelling, discoloration, leg vein distention, palpable cords or tenderness along the distribution of the deep venous system. Skin: Normal color, No rash Neurological: Alert, Oriented x3, Cranial nerves II-XII grossly intact, Normal Strength, Normal Sensation Psychological: - - Affect flat Diagnostic/Tx/Re-eval - Rhythm Strip Rhythm Strip: Sinus Rhythm Rate: 85 Ectopy: None - EKG Initial EKG Interpretation: Sinus Rhythm - Ventricular rate 79 with normal MI interval, QRS duration, QT interval and axis. EKG is normal. - Medical Decision Making With history of bronchitis, reproducible chest pain and normal EKG patient's history and physical exam is consistent with costochondritis. Laboratory testing, radiologic imaging are not indicated. EKG was obtained through protocol. ED Disposition - Plan for ED Patient: Disposition: Home or Assisted Living Diagnosis: Acute costochondritis Instructions: ED Chest Pain Costochondritis Prescriptions: Naproxen [Naprosyn] 500 mg PO BID #14 tablet Referrals: Tang Olguin DO [Primary Care Provider] - 1 Week if not improving Additional Instructions: Your prescription was electronically transmitted to [facility] pharmacy located on [address].
[2018-05-27 12:27] VITALS: BP 118/80; PULSE 76; RESP 16; O2SAT 97
[2018-05-27] MEDS: Naproxen 250 MG Tablet 500 MG PO (12:27)
== END 2018-05-27 12:29 | disposition home or self-care (01) ==
LOC: ED 12:19
PROVIDERS: Emergency Provider Emergency Medicine; Family Provider Student in an Organized Health Care Education/Training Program; PCP Student in an Organized Health Care Education/Training Program
DX: M94.0 Chondrocostal junction syndrome [Tietze] (principal); Z90.49 Acquired absence of other specified parts of digestive tract; E66.01 Morbid (severe) obesity due to excess calories; Z68.41 Body mass index [BMI] 40.0-44.9, adult; K44.9 Diaphragmatic hernia without obstruction or gangrene; K21.9 Gastro-esophageal reflux disease without esophagitis; M79.7 Fibromyalgia; F32.9 Major depressive disorder, single episode, unspecified; Z86.718 Personal history of other venous thrombosis and embolism; I10 Essential (primary) hypertension
CPT/HCPCS: 93005; 99284; A4216

== ENCOUNTER 2018-08-19 15:09 | Observation (INO) | payer MEDICAID, SELFPAY ==
[2018-08-19] VITALS (10 sets, daily range): BP systolic 102–132; BP diastolic 60–85; PULSE 66–77; RESP 12–18; TEMP 36.6–36.9; O2SAT 96–100; BMI 42.0; BMI 42.1; BMI 42.6
--- NOTE | 2018-08-19 16:13 | EKG12_ITS ---
Test Reason : CP ADMIT Blood Pressure : / mmHG Vent. Rate : 073 BPM Atrial Rate : 073 BPM P-R Int : 148 ms QRS Dur : 078 ms QT Int : 376 ms P-R-T Axes : 024 014 024 degrees QTc Int : 414 ms Normal sinus rhythm Normal ECG Confirmed by PAM NAVARRO, JULIANA ([id number]), development editor LORIE SULLIVAN ([id number]) on 08/21/2018 11:43:13 AM Referred By: Agustina Rubalcava Confirmed By:JULIANA OROZCO MD
--- NOTE | 2018-08-19 16:18 | RAD_ITS ---
STUDY: X-RAY CHEST REASON FOR EXAM: Female, 48 years old. Chest pain. TECHNIQUE: Single frontal view of the chest. COMPARISON: November 09, 2017 FINDINGS: There is no new focal consolidation. Normal size heart. Normal mediastinum and sagar. Normal visualized pulmonary arteries. Normal visualized aortic arch and descending thoracic aorta. Normal visualized thoracic spine. Normal visualized ribs, clavicles, and shoulders. There is no demonstrated abnormality of the visualized soft tissue structures of the upper abdomen. RAD/Chest 1 View (Portable) IMPRESSION: No acute cardiopulmonary process. Electronically Signed: Nellie Pierre MD at 16:31 EDT Tel , Service support ,
[2018-08-19 16:27] LABS: Absolute Neutrophil Count 5.9 X10^3/uL (2.0-7.7); Basophil# 0.04 X10^3/uL; Basophil% 0.5 % (0-1); Eosinophil# 0.07 X10^3/uL; Eosinophils% 0.8 % (0-5); Hematocrit 36.8 % (37-47); Hemoglobin 12.1 g/dl (12.0-15.0); Lymphocyte % 24.5 % (19-41); Mean Corp Hgb Conc 32.9 g/gl (32-36); Mean Corpuscular Hgb 27.1 pg (27.0-32.0); Mean Corpuscular Volume 82.3 fL (81-99); Mean Platelet Vol. 9.7 fl (6.2-12.0); Monocyte# 0.47 X10^3/uL; Monocyte% 5.5 % (0-10); Neutrophil # 5.86 X10^3/uL (2.7-7.7); Neutrophil % 68.5 % (47-70); Platelet Count 265 K/mm3 (150-450); RBC Distribution Width CV 14.2 % (11.6-14.6); RBC Distribution Width SD 43.1 fl (35.1-43.9); Red Blood Count 4.47 M/mm3 (4.2-5.4); White Blood Count 8.6 K/mm3 (4.4-11.0)
[2018-08-19 16:28] LABS: POSITIVE COUNT NO; POSITIVE DIFFERENTIAL NO; POSITIVE MORPHOLOGY NO
--- NOTE | 2018-08-19 16:31 | CT_ITS ---
STUDY: CT BRAIN WITHOUT CONTRAST REASON FOR EXAM: Female, 48 years old. Headache RADIATION DOSAGE (If Supplied By Facility): CTDIvol = ( 44.99 ) mGy, DLP = ( 779.24 ) mGycm TECHNIQUE: Transaxial CT imaging of the brain was performed without administration of intravenous contrast material. Individualized dose optimization techniques were used for this CT. COMPARISON: June 07, 2016 FINDINGS: Normal soft tissue structures. Normal calvarium. Normal size ventricles and extra-axial spaces for the patient's age. Normal white matter tracts of the cerebral hemispheres. Normal basal ganglia and thalami. Normal brainstem. Normal cerebellum. There is no intracranial hemorrhage. There are no findings of an acute ischemic infarction. There is trace opacification of the sphenoid sinus. CT/Brain/Head without Contrast IMPRESSION: No acute intracranial process. Trace opacification of the sphenoid sinus consistent with a history of sinusitis. Electronically Signed: Nellie Pierre MD at 17:12 EDT Tel , Service support ,
[2018-08-19 16:36] LABS: Anion Gap 6 (5-15); BUN 10 mg/dL (7-18); BUN/Creat Ratio 12.8 RATIO (10-20); Calcium,Total 8.8 mg/dL (8.5-10.1); Chloride 105 mmol/L (98-107); Creatinine, Serum 0.78 mg/dL (0.55-1.02); EST Glomerular Filtration Rate 84 mL/min (>60); Est Glom Filt Rate - Afr Amer 101 mL/min (>60); Estimated Creatinine Clearance 70.52 ml/min; Glucose 89 mg/dL (74-106); Potassium 3.9 mmol/L (3.5-5.1); Sodium Level 137 mmol/L (136-145)
[2018-08-19] MEDS: Aspirin 81 MG TAB.CHEW 324 MG PO (16:44)
[2018-08-19 17:30] LABS: D-Dimer Quantitative (DVT/PE) < 0.27 FEU/ug/m (0.27-0.49)
--- NOTE | 2018-08-19 18:14 | ED.VISSUMM ---
- ER Visit Summary Date of Service: 08/19/18 Chief Complaint: [Chest pain and dizziness] History of Present Illness: The patient is a 48 F [the emergency department complaint of chest discomfort and dizziness for last 2 days. Patient states that 2 days ago she woke up rolled over in bed and noted that everything was spinning on the ground. Patient's been feeling off balance intermittently and this morning fell against the wall because she was so dizzy. Patient also is been experiencing exertional chest discomfort that radiates up into her jaw. She is describes it as a dull ache. Patient denies any nausea or vomiting with it although she does feel somewhat short of breath with activity. Patient does have a history of hyper tension and hypercholesterolemia. Patient has had prior DVT. She denies recent travel or surgery. Patient was seen in urgent care and was referred to the emergency department.] Patient also complaining of a headache that is frontal and that she rates about a 6 out of 10. She just states she does not feel well and feels fatigued and no energy. Physical Examination: [HEENT-PERRLA, EOMI. Cranial nerves II through XII grossly intact. TMs clear. Mucous membranes moist. No adenopathy. Cardiovascular-regular rate and rhythm without murmur or ectopy Lungs-clear to auscultation, chest wall stable without crepitus or subcu emphysema Abdomen-normoactive bowel sounds, soft, nontender, no rebound or rigidity, no peritoneal signs. Neuro octv-[id number] and heel alicea testing within normal limits, negative Romberg, negative pronator drift, fundi benign. Hallpike maneuver performed elicited no nystagmus or symptoms. Extremities-intact ?4, normal range of motion, normal pulses, atraumatic] Test Results: [EKG obtained arrival shows sinus rhythm with a ventricular rate of 78 bpm with no acute ST segment changes. CBC with it was normal. Chemistries normal. Troponin is less than 0.015. D-dimer was less than 0.27. Chest x-ray was normal. CT scan of the brain without contrast showed nothing acute.] Emergency Department Course and Treatment: [Received aspirin in the emergency department.] Treatment Plan: [Admit for further work-up and evaluation of her chest pain.] Disposition: [Admit] Impression: [Chest pain-rule out acute current syndrome Benign positional vertigo] This note was generated with Dragon dictation software. It may contain incorrect words, spelling, and punctuation that were not noted in review of the chart prior to signing ED Disposition - Plan for ED Patient: Referrals: Tang Olguin DO [Primary Care Provider] -
--- NOTE | 2018-08-19 18:38 | PCM.HP.STD ---
Problem List (1) Obesity, Class III, BMI 40-49.9 (morbid obesity) Status: Chronic (2) GERD (gastroesophageal reflux disease) Status: Chronic Qualifiers: Esophagitis presence: esophagitis presence not specified Qualified Code(s): K21.9 - Gastro-esophageal reflux disease without esophagitis (3) Chest pain Status: Acute Qualifiers: Chest pain type: unspecified Qualified Code(s): R07.9 - Chest pain, unspecified (4) Fibromyalgia Status: Chronic (5) Depression Status: Chronic Qualifiers: Depression Type: unspecified Qualified Code(s): F32.9 - Major depressive disorder, single episode, unspecified History of Present Illness Date of Admission: 08/19/18 Chief Complaint: Chest pain, headache, dizziness - 2 days The patient is a 48 year old F with past medical history of fibromyalgia, depression, obesity who comes in with complaints of chest discomfort and dizziness ongoing for 2 days. Patient states that her symptoms started 2 days ago, started with severe frontal headache that radiated down her neck into her chest, mostly on the left side and sometimes into her shoulder. This is associated with dizziness. She states that she has been feeling off balance intermittently. She denied any diaphoresis or nausea or vomiting. Denies any weakness in her extremities or tingling or numbness. She reports that she was following with Dr. Vergara for possible aortic aneurysm. She last saw Dr. Vergara a year ago. She got concerned that this could be due to possible aortic aneurysm. 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 Admits that her fibromyalgia is not under control.. In the ED show temperature of 97.9F, heart rate 72, blood pressure 132/85, respiratory rate is 18, SPO2 is 98% on room air. Blood work was work was unremarkable. EKG was also unremarkable. Chest X-ray showed no acute cardio-pulmonary process. CT scan of the head showed no acute intracranial process. Past Medical History Past Medical History (Chronic Problems): Chronic Problems Obesity, Class III, BMI 40-49.9 (morbid obesity) (Chronic) Hiatal hernia (Chronic) GERD (gastroesophageal reflux disease) (Chronic) Ovarian cyst (Chronic) Fibromyalgia (Chronic) Depression (Chronic) H/O deep venous thrombosis (Chronic) Allergies hydromorphone HCl [From Dilaudid] Allergy (Verified 08/19/18 15:29) Chest tightness warfarin sodium [From Coumadin] Allergy (Verified 08/19/18 15:29) Chest tightness milnacipran HCl [From Savella] Adverse Reaction (Verified 08/19/18 18:27) Other pt does not remember pregabalin [From Lyrica] Adverse Reaction (Verified 08/19/18 18:28) Rash rivaroxaban [From Xarelto] Adverse Reaction (Verified 08/19/18 15:29) Nausea Home Medications: Ambulatory Orders Medication Instructions Recorded Duloxetine Hcl [Cymbalta] 90 mg PO QHS 03/02/13 Ropinirole HCl [Requip] 4 mg PO QHS 03/10/14 Omeprazole [Prilosec] 40 mg PO QHS 11/06/14 Valacyclovir HCl [Valtrex] 500 mg PO QHS 12/06/16 Cetirizine HCl [Zyrtec] 10 mg PO QHS 01/22/17 Losartan Potassium [Cozaar] 50 mg PO QHS 01/22/17 Naproxen [Naprosyn] 500 mg PO BID PRN 03/08/17 Triamcinolone Acetonide [Nasacort 1 spray NASAL BID PRN 11/04/17 Aq Nasal [place]] Nitroglycerin [Nitrostat] 0.4 mg SL Q10M PRN 11/09/17 Surgical History: cholecystectomy, - - , foot surgery for plantar fasciitis, breast reduction, uterine ablation,egd,carpal tunnel Psychiatric History: Anxiety, Depression [employer] History: No pertinent [employer] history Lives: Spouse/ Significant Other Smoking Status: Never smoker Tobacco Use: Non-smoker Alcohol: Occasional Drugs: None - *Family History Maternal History Items: Pulmonary Disease, No pertinent history, - - no history of CVD or CVA's, no FH of migraines, Paternal History Items: Pulmonary Disease Sibling History Items: - - sister with fibromyalgia Review of Systems Constitutional: Reports: Weakness, Fatigue. Denies: Anorexia, Chills, Fever, Night Sweats, Malaise, Weight Change Eyes: Denies: Blurred vision, Cataracts, Conjunctivae Inflammation, Pain, Redness, Vision Change HEENT: Denies: Difficulty Hearing, Difficulty Swallowing, Head Aches, Hearing Changes, Sinus Congestion, Sinus Drainage Cardiovascular: Reports: Chest Pain, Light Headedness. Denies: Claudication, Chest Tightness, Orthopnea, Palpitations, Paroxysmal Noc. Dyspnea Respiratory: Denies: Cough, Hemoptysis, Shortness of breath at rest, Sputum production Gastrointestinal: Denies: Abdominal Pain, Constipation, Hematemesis, Nausea, Vomiting Genitourinary: Denies: Dysuria Musculoskeletal: Denies: Joint Pain, Joint Tenderness Skin: Denies: Rash, Wounds Neurological: Denies: Difficulty swallowing, Focal weakness, Headaches, Numbness, Tingling Psychiatric: Denies: Anxiety, Depression, Homicidal Ideations, Suicidal Ideations Hematologic/ Lymphatic: Denies: Easy Bruising, Easy Bleeding VTE Information - Inpt Only VTE Present on Admission: No VTE Pharm Prophylaxis ordered?: Yes Patient Problems: Active and Suspected Problems Chest pain (Acute) - Physical Exam General: Alert, Oriented x3, Cooperative, No apparent distress HEENT: Atraumatic, PERRLA, EOMI, Normocephalic Oral: Moist Mucosa Neck: Supple Lungs: Clear to auscultation, Normal air movement, - - Tenderness over the left scapula and left anterior chest wall Cardiovascular: Regular rate, Regular Rhythm, Normal S1, Normal S2, No murmurs Abdomen: Bowel Sounds Present, Soft, Non Tender, Non-Distended, No Hepato-splenomegaly Extremities: No edema Skin: No rashes Musculoskeletal: No Tenderness to Palpation of Joints or Extremities Lymphatic: No Cervical, Supraclavicular, or Inguinal Adenopathy Neurological: Cranial nerves II-XII grossly intact, Neuro grossly intact Psych/Mental Status: Normal Affect, Appropriate Vital Signs Temp Pulse Resp BP Pulse Ox 97.9 F 72 12 105/72 98 08/19/18 15:27 08/19/18 18:25 08/19/18 18:25 08/19/18 18:25 08/19/18 18:25 Oxygen Delivery Method Room Air Weight: 104.326 kg Body Mass Index (BMI) 42.0 Finger Stick Blood Glucose 121 Laboratory Tests Past 24 Hrs 08/19/18 08/19/18 08/19/18 16:05 16:05 16:05 WBC 8.6 Corrected WBC RBC 4.47 Hgb 12.1 Hct 36.8 L MCV 82.3 MCH 27.1 MCHC 32.9 RDW 14.2 RDW Differential 43.1 Plt Count 265 MPV 9.7 Immature Gran % (Auto) 0.200 Neut % (Auto) 68.5 Lymph % (Auto) 24.5 [place] % (Auto) 5.5 Eos % (Auto) 0.8 Baso % (Auto) 0.5 Immature Gran # (Auto) Absolute Neuts (auto) 5.9 Absolute Lymphs (auto) 2.10 Absolute Monos (auto) Total Counted Not Reportable Neutrophils % (Manual) Band Neutrophils % Lymphocytes % (Manual) Monocytes % (Manual) Eosinophils % (Manual) Basophils % (Manual) Metamyelocytes % Myelocytes % Promyelocytes % Blast Cells % Plasma Cell % (Manual) Other Cells % Lymphocytes # Nucleated RBCs/100 WBC Differential Comment Diff Path Review Hypersegmented Neuts Atypical Lymphocytes Reactive Lymphocytes Smudge Cells Eosinophilia # Basophilia # Toxic Granulation Dohle Bodies Karin Rods Platelet Estimate Plt Morphology Comment RBC Morphology Polychromasia Hypochromasia Poikilocytosis Basophilic Stippling Anisocytosis Microcytosis Macrocytosis Spherocytes Sickle Cells Target Cells Tear Drop Cells Ovalocytes Stomatocytes Talley-Turton Bodies Lina Cells Bite Cells Acanthocytes (Spur) Rouleaux Schistocytes D-Dimer Quant (PE/DVT) Cancelled Sodium 137 Potassium 3.9 Chloride 105 Carbon Dioxide 26.0 Anion Gap 6 BUN 10 Creatinine 0.78 Estim Creat Clear Calc 70.52 Est GFR (MDRD) Af Amer 101 Est GFR (MDRD) Non-Af 84 BUN/Creatinine Ratio 12.8 Glucose 89 Calcium 8.8 Troponin I < 0.015 08/19/18 08/19/18 16:05 16:58 WBC Cancelled Corrected WBC Cancelled RBC Cancelled Hgb Cancelled Hct Cancelled MCV Cancelled MCH Cancelled MCHC Cancelled RDW Cancelled RDW Differential Cancelled Plt Count Cancelled MPV Cancelled Immature Gran % (Auto) Cancelled Neut % (Auto) Cancelled Lymph % (Auto) Cancelled [place] % (Auto) Cancelled Eos % (Auto) Cancelled Baso % (Auto) Cancelled Immature Gran # (Auto) Cancelled Absolute Neuts (auto) Cancelled Absolute Lymphs (auto) Cancelled Absolute Monos (auto) Cancelled Total Counted Cancelled Neutrophils % (Manual) Cancelled Band Neutrophils % Cancelled Lymphocytes % (Manual) Cancelled Monocytes % (Manual) Cancelled Eosinophils % (Manual) Cancelled Basophils % (Manual) Cancelled Metamyelocytes % Cancelled Myelocytes % Cancelled Promyelocytes % Cancelled Blast Cells % Cancelled Plasma Cell % (Manual) Cancelled Other Cells % Cancelled Lymphocytes # Cancelled Nucleated RBCs/100 WBC Cancelled Differential Comment Cancelled Diff Path Review Cancelled Hypersegmented Neuts Cancelled Atypical Lymphocytes Cancelled Reactive Lymphocytes Cancelled Smudge Cells Cancelled Eosinophilia # Cancelled Basophilia # Cancelled Toxic Granulation Cancelled Dohle Bodies Cancelled Karin Rods Cancelled Platelet Estimate Cancelled Plt Morphology Comment Cancelled RBC Morphology Cancelled Polychromasia Cancelled Hypochromasia Cancelled Poikilocytosis Cancelled Basophilic Stippling Cancelled Anisocytosis Cancelled Microcytosis Cancelled Macrocytosis Cancelled Spherocytes Cancelled Sickle Cells Cancelled Target Cells Cancelled Tear Drop Cells Cancelled Ovalocytes Cancelled Stomatocytes Cancelled Talley-Turton Bodies Cancelled Lina Cells Cancelled Bite Cells Cancelled Acanthocytes (Spur) Cancelled Rouleaux Cancelled Schistocytes Cancelled D-Dimer Quant (PE/DVT) < 0.27 L Sodium Potassium Chloride Carbon Dioxide Anion Gap BUN Creatinine Estim Creat Clear Calc Est GFR (MDRD) Af Amer Est GFR (MDRD) Non-Af BUN/Creatinine Ratio Glucose Calcium Troponin I Assessment/Plan All Active Problems Chest pain (Acute) Hypokalemia (Acute) Encephalopathy (Acute) Acute respiratory failure (Acute) Overdose (Acute) The patient is a 48 year old F with past medical history of fibromyalgia, depression, obesity who comes in with complaints of chest discomfort and dizziness ongoing for 2 days. Patient states that her symptoms started 2 days ago, started with severe frontal headache that radiated down her neck into her chest, mostly on the left side and sometimes into her shoulder. This is associated with dizziness. She states that she has been feeling off balance intermittently. 1. Chest pain, likely musculoskeletal with a component of fibromyalgia Stable vitals, no cardiac history,no acute ST-T changes on EKG, normal troponins x 1 CT of the chest done in 2018 was negative for thoracic aneurysm. Plan: Admit to PCU, recommend conservative treatment, trend troponins, monitor on telemetry Would hold off on ordering stress test or cardiology consult. Needs to be evaluated in the morning 2. GERD, on PPI, continue same 3. Hypertension, controlled, continue on losartan 4. Fibromyalgia/depression/anxiety -needs to be followed up in the outpatient, continue on Cymbalta 5. DVT PPx- early ambulation Code Visit OBSV E&M: 17786 Initial observation care L3
--- NOTE | 2018-08-19 19:45 | EKG12_ITS ---
Test Reason : DIZZINESS Blood Pressure : / mmHG Vent. Rate : 076 BPM Atrial Rate : 076 BPM P-R Int : 148 ms QRS Dur : 072 ms QT Int : 384 ms P-R-T Axes : 015 018 028 degrees QTc Int : 432 ms Normal sinus rhythm Low voltage QRS Borderline ECG Confirmed by PAM NAVARRO, JULIANA ([id number]), metropolitan editor LORIE SULLIVAN ([id number]) on 08/21/2018 11:11:55 AM Referred By: Agustina Rubalcava Confirmed By:JULIANA OROZCO MD
[2018-08-19] MEDS: 0.9% Normal Saline 1,000 ML 100 ML IV (19:58)
[2018-08-19] MEDS: Acetaminophen 325 MG Tablet 650 MG PO (19:58)
[2018-08-19] MEDS: DULoxetine Hcl 30 MG Capsule 90 MG PO (21:48)
[2018-08-19] MEDS: Pramipexole Di-HCl 0.5 MG Tablet 1.5 MG PO (21:48)
[2018-08-19] MEDS: Pantoprazole Sodium 40 MG Tablet PO (21:48)
[2018-08-19] MEDS: Losartan Potassium 50 MG Tablet PO (21:48)
[2018-08-20] VITALS (7 sets, daily range): BP systolic 112–127; BP diastolic 69–83; PULSE 67–82; RESP 15–16; TEMP 36.7–36.8; O2SAT 95–97
[2018-08-20 02:45] LABS: Anion Gap 5 (5-15); BUN 10 mg/dL (7-18); BUN/Creat Ratio 13.7 RATIO (10-20); Calcium,Total 8.3 mg/dL (8.5-10.1); Chloride 107 mmol/L (98-107); Creatinine, Serum 0.73 mg/dL (0.55-1.02); EST Glomerular Filtration Rate 90 mL/min (>60); Est Glom Filt Rate - Afr Amer 109 mL/min (>60); Estimated Creatinine Clearance 75.35 ml/min; Glucose 95 mg/dL (74-106); Potassium 3.7 mmol/L (3.5-5.1); Sodium Level 138 mmol/L (136-145)
[2018-08-20] MEDS: 0.9% Normal Saline 1,000 ML 100 ML IV (05:52)
[2018-08-20] MEDS: Acetaminophen 325 MG Tablet 650 MG PO (05:52)
[2018-08-20 12:01] LABS: Cholesterol 232 mg/dL (200); High Density Lipoprotein 40 mg/dL; Triglycerides 152 mg/dL; Very Low Density Lipoprotein 30 mg/dL (5-40)
--- NOTE | 2018-08-20 13:41 | STRESSREP ---
Stress Test Report Date: 08-20-18 Procedure: Exercise tolerance test/imaging study Indications: Chest pain Consent: Per the patient Procedure: The patient exercised on a Abiodun protocol for 6 minutes completing stage II achieving a peak heart rate of 157 bpm (90 % predicted maximal heart rate) with a peak blood pressure 150/72 mmHg and a peak MET capacity of 7 METs. The baseline ECG demonstrated normal sinus rhythm. The peak exercise ECG demonstrated no obvious ECG changes. There were no cardiac dysrhythmias pretest, during exercise, or recovery. The functional capacity was considered decreased. There was no complaint of chest discomfort during exercise or recovery. The examination was discontinued secondary to dyspnea. Impression: 1. Technically adequate (percent predicted maximal heart rate greater than 85%) exercise tolerance test 2. Peak exercise ECG with no obvious ECG changes 3. There were no cardiac dysrhythmias pretest, during exercise, or recovery 4. Nuclear images pending Myocardial perfusion imaging study: Technique: The patient was injected with 15.0 mCi of technetium 99m Cardiolite and subsequently rest SPECT Cardiolite nuclear imaging was obtained in the horizontal long, vertical long, and short axis views. The patient exercised on a Abiodun protocol for 6 minutes completing stage II achieving a peak heart rate of 157 bpm (90 % predicted maximal heart rate) with a peak blood pressure 150/72 mmHg and a peak MET capacity of 7 METs. The patient was injected with 44.8 mCi of technetium 99m Cardiolite and subsequently stress SPECT Cardiolite nuclear imaging was obtained in the horizontal long, vertical long, and short axis views. A gated Cardiolite study at peak stress was obtained. Interpretation: Rest and stress SPECT Cardiolite nuclear imaging status post realignment, normalization, and attenuation correction, demonstrates rest the appearance of an area of diminished tracer uptake near the apical segments which appears to improve and/or normalize following stress. Otherwise following stress there appears to be relative uniform tracer uptake and myocardial perfusion appearing within normal limits. There is end systolic thickening and brightening. The gated Cardiolite study demonstrates myocardial thickening and inward wall motion. The reported LVEF is 79 %. Impression: 1. Rest and stress SPECT Cardiolite nuclear imaging demonstrate myocardial perfusion changes at rest which appear to improve following stress appearing compatible with shifting soft tissue attenuation/artifact with no myocardial perfusion changes considered diagnostic for associated stress-induced myocardial ischemia. 2. The gated Cardiolite study reports an LVEF of 79 %. This note was generated with Dragon dictation software. It may contain incorrect words, spelling, and punctuation that were not noted in checking the note before signing.
--- NOTE | 2018-08-20 14:09 | DCINST_ITS ---
- Discharge Diagnoses Current Active Problems: Current Active and Chronic Problems Chest pain (Acute) You will use the following diet at home:: Calorie/Carbohydrate Controlled (specify 1200, 1400, etc) Discharge Activity: Return to Normal Activity Call your doctor if you observe: Shortness of breath, Dizziness, Fainting spells, Chest pain Allergies/Adverse Reactions: Allergies hydromorphone HCl [From Dilaudid] Allergy (Verified 08/19/18 15:29) Chest tightness warfarin sodium [From Coumadin] Allergy (Verified 08/19/18 15:29) Chest tightness milnacipran HCl [From Savella] Adverse Reaction (Verified 08/19/18 18:27) Other pt does not remember pregabalin [From Lyrica] Adverse Reaction (Verified 08/19/18 18:28) Rash rivaroxaban [From Xarelto] Adverse Reaction (Verified 08/19/18 15:29) Nausea Medications to take at Discharge Duloxetine Hcl [Cymbalta] 90 mg PO QHS 03/02/13 Ropinirole HCl [Requip] 4 mg PO QHS 03/10/14 Omeprazole [Prilosec] 40 mg PO QHS 11/06/14 Valacyclovir HCl [Valtrex] 500 mg PO QHS 12/06/16 Cetirizine HCl [Zyrtec] 10 mg PO QHS 01/22/17 Losartan Potassium [Cozaar] 50 mg PO QHS 01/22/17 Naproxen [Naprosyn] 500 mg PO BID PRN 03/08/17 Triamcinolone Acetonide [Nasacort Aq Nasal [place]] 1 spray NASAL BID PRN 11/04/17 Nitroglycerin [Nitrostat] 0.4 mg SL Q10M PRN 11/09/17 Atorvastatin Calcium 10 mg PO QHS #30 tablet 08/20/18 The following prescriptions were given: Atorvastatin Calcium 10 mg PO QHS #30 tablet Primary Care Physician: Tang Olguin DO [Primary Care Provider] - Please follow up with your Primary Care Physician in: 1 Week Test Results: Test results from this visit will be discussed in further detail at your follow- up appointment, if applicable. Proposed Discharge Date: 08/20/18
--- NOTE | 2018-08-20 14:23 | DS.PCM_ITS ---
<Jessi John - Last Filed: 08/20/18 14:26> Discharge Date and Diagnosis Date of Admission: 08/19/18 Date of Discharge: 08/20/18 - Primary Discharge Diagnosis Active and Suspected Problems 1. Chest pain, acs ruled out 2. Hyperlipidemia 3. Hypertension 4. Depression 5. GERD 6. Seasonal allergies 7. Fibromyalgia 8. History of DVT 9. Obesity - Secondary Discharge Diagnosis Chronic Problems Obesity, Class III, BMI 40-49.9 (morbid obesity) (Chronic) Hiatal hernia (Chronic) GERD (gastroesophageal reflux disease) (Chronic) Ovarian cyst (Chronic) Fibromyalgia (Chronic) Depression (Chronic) H/O deep venous thrombosis (Chronic) Hospital Course and Treatment Imaging Results: Diagnostic Data Chest X-Ray 08/19/18 16:18 IMPRESSION: No acute cardiopulmonary process. Electronically Signed: Nellie Pierre MD at 16:31 EDT Tel , Service support , Brain CT 08/19/18 16:31 IMPRESSION: No acute intracranial process. Trace opacification of the sphenoid sinus consistent with a history of sinusitis. Electronically Signed: Nellie Pierre MD at 17:12 EDT Tel , Service support , Operations: None Procedures: Stress test Summary of Care Provided: The patient is a 48 year old F admitted 08/19/2018 due to chest pain and dizziness. 1. Chest pain, acs ruled out-troponin negative. EKG without ST-T changes. Patient underwent nuclear treadmill stress test which was negative for ischemia. Denies further chest pain or dizziness. Brain CT shows no acute process. Chest x-ray unremarkable. Follow-up with primary care provider in 1 week. 2. Hyperlipidemia-initiated on atorvastatin 10 mg p.o. nightly. Recommend repeat lipid panel by primary care provider. 3. Hypertension-stable, continue home losartan regimen. 4. Depression-continue home duloxetine regimen. 5. GERD-continue omeprazole regimen. 6. Seasonal allergies-continue Zyrtec. 7. Fibromyalgia 8. History of DVT 9. Obesity-encouraged diet lifestyle modifications. Patient seen and examined prior to discharge. Physical assessment as noted below. Patient is stable for discharge with follow up recommendations as noted above. This patient was seen by LEE Schneider under the supervision of Dr. Diaz. - Physical Exam General: Alert, Oriented x3, Cooperative HEENT: Atraumatic, PERRLA, EOMI, Normocephalic Neck: Supple, No JVD, Negative Carotid Bruits Lungs: Clear to auscultation, Normal air movement Cardiovascular: Regular rate, Regular Rhythm, Normal S1, Normal S2, No murmurs Abdomen: Bowel Sounds Present, Soft, Non Tender, Non-Distended, Obese Extremities: No clubbing, No cyanosis, No edema, Capillary Refill Less than 3 Seconds Skin: No rashes, No breakdown Musculoskeletal: No Tenderness to Palpation of Joints or Extremities Neurological: Cranial nerves II-XII grossly intact, Neuro grossly intact Psych/Mental Status: Normal Affect, Appropriate Vital Signs Temp Pulse Resp BP Pulse Ox 98.2 F 67 15 115/69 97 08/20/18 08:00 08/20/18 08:00 08/20/18 08:00 08/20/18 08:00 08/20/18 08:00 Oxygen Delivery Method Room Air Weight: 233 lb 0.458 oz Body Mass Index (BMI) 42.6 Finger Stick Blood Glucose 121 Intake and Output for Last 24 Hours 08/18/18 08/19/18 08/20/18 23:59 23:59 23:59 Intake Total 673 / 673 992 / 992 Balance 673 / 673 992 / 992 Laboratory Tests Past 24 Hrs 08/19/18 08/19/18 08/19/18 16:05 16:05 16:05 WBC 8.6 Corrected WBC RBC 4.47 Hgb 12.1 Hct 36.8 L MCV 82.3 MCH 27.1 MCHC 32.9 RDW 14.2 RDW Differential 43.1 Plt Count 265 MPV 9.7 Immature Gran % (Auto) 0.200 Neut % (Auto) 68.5 Lymph % (Auto) 24.5 Bucks % (Auto) 5.5 Eos % (Auto) 0.8 Baso % (Auto) 0.5 Immature Gran # (Auto) Absolute Neuts (auto) 5.9 Absolute Lymphs (auto) 2.10 Absolute Monos (auto) Total Counted Not Reportable Neutrophils % (Manual) Band Neutrophils % Lymphocytes % (Manual) Monocytes % (Manual) Eosinophils % (Manual) Basophils % (Manual) Metamyelocytes % Myelocytes % Promyelocytes % Blast Cells % Plasma Cell % (Manual) Other Cells % Lymphocytes # Nucleated RBCs/100 WBC Differential Comment Diff Path Review Hypersegmented Neuts Atypical Lymphocytes Reactive Lymphocytes Smudge Cells Eosinophilia # Basophilia # Toxic Granulation Dohle Bodies Karin Rods Platelet Estimate Plt Morphology Comment RBC Morphology Polychromasia Hypochromasia Poikilocytosis Basophilic Stippling Anisocytosis Microcytosis Macrocytosis Spherocytes Sickle Cells Target Cells Tear Drop Cells Ovalocytes Stomatocytes [place] Bodies Lina Cells Bite Cells Acanthocytes (Spur) Rouleaux Schistocytes D-Dimer Quant (PE/DVT) Cancelled Sodium 137 Potassium 3.9 Chloride 105 Carbon Dioxide 26.0 Anion Gap 6 BUN 10 Creatinine 0.78 Estim Creat Clear Calc 70.52 Est GFR (MDRD) Af Amer 101 Est GFR (MDRD) Non-Af 84 BUN/Creatinine Ratio 12.8 Glucose 89 Calcium 8.8 Troponin I < 0.015 Triglycerides Cholesterol LDL Cholesterol VLDL Cholesterol HDL Cholesterol 08/19/18 08/19/18 08/19/18 16:05 16:58 20:00 WBC Cancelled Corrected WBC Cancelled RBC Cancelled Hgb Cancelled Hct Cancelled MCV Cancelled MCH Cancelled MCHC Cancelled RDW Cancelled RDW Differential Cancelled Plt Count Cancelled MPV Cancelled Immature Gran % (Auto) Cancelled Neut % (Auto) Cancelled Lymph % (Auto) Cancelled Bucks % (Auto) Cancelled Eos % (Auto) Cancelled Baso % (Auto) Cancelled Immature Gran # (Auto) Cancelled Absolute Neuts (auto) Cancelled Absolute Lymphs (auto) Cancelled Absolute Monos (auto) Cancelled Total Counted Cancelled Neutrophils % (Manual) Cancelled Band Neutrophils % Cancelled Lymphocytes % (Manual) Cancelled Monocytes % (Manual) Cancelled Eosinophils % (Manual) Cancelled Basophils % (Manual) Cancelled Metamyelocytes % Cancelled Myelocytes % Cancelled Promyelocytes % Cancelled Blast Cells % Cancelled Plasma Cell % (Manual) Cancelled Other Cells % Cancelled Lymphocytes # Cancelled Nucleated RBCs/100 WBC Cancelled Differential Comment Cancelled Diff Path Review Cancelled Hypersegmented Neuts Cancelled Atypical Lymphocytes Cancelled Reactive Lymphocytes Cancelled Smudge Cells Cancelled Eosinophilia # Cancelled Basophilia # Cancelled Toxic Granulation Cancelled Dohle Bodies Cancelled Karin Rods Cancelled Platelet Estimate Cancelled Plt Morphology Comment Cancelled RBC Morphology Cancelled Polychromasia Cancelled Hypochromasia Cancelled Poikilocytosis Cancelled Basophilic Stippling Cancelled Anisocytosis Cancelled Microcytosis Cancelled Macrocytosis Cancelled Spherocytes Cancelled Sickle Cells Cancelled Target Cells Cancelled Tear Drop Cells Cancelled Ovalocytes Cancelled Stomatocytes Cancelled [place] Bodies Cancelled Lina Cells Cancelled Bite Cells Cancelled Acanthocytes (Spur) Cancelled Rouleaux Cancelled Schistocytes Cancelled D-Dimer Quant (PE/DVT) < 0.27 L Sodium Potassium Chloride Carbon Dioxide Anion Gap BUN Creatinine Estim Creat Clear Calc Est GFR (MDRD) Af Amer Est GFR (MDRD) Non-Af BUN/Creatinine Ratio Glucose Calcium Troponin I < 0.015 Triglycerides Cholesterol LDL Cholesterol VLDL Cholesterol HDL Cholesterol 08/19/18 08/20/18 08/20/18 22:38 02:12 02:12 WBC Corrected WBC RBC Hgb Hct MCV MCH MCHC RDW RDW Differential Plt Count MPV Immature Gran % (Auto) Neut % (Auto) Lymph % (Auto) [place]ucks % (Auto) Eos % (Auto) Baso % (Auto) Immature Gran # (Auto) Absolute Neuts (auto) Absolute Lymphs (auto) Absolute Monos (auto) Total Counted Neutrophils % (Manual) Band Neutrophils % Lymphocytes % (Manual) Monocytes % (Manual) Eosinophils % (Manual) Basophils % (Manual) Metamyelocytes % Myelocytes % Promyelocytes % Blast Cells % Plasma Cell % (Manual) Other Cells % Lymphocytes # Nucleated RBCs/100 WBC Differential Comment Diff Path Review Hypersegmented Neuts Atypical Lymphocytes Reactive Lymphocytes Smudge Cells Eosinophilia # Basophilia # Toxic Granulation Dohle Bodies Karin Rods Platelet Estimate Plt Morphology Comment RBC Morphology Polychromasia Hypochromasia Poikilocytosis Basophilic Stippling Anisocytosis Microcytosis Macrocytosis Spherocytes Sickle Cells Target Cells Tear Drop Cells Ovalocytes Stomatocytes [place] Bodies [place] Cells Bite Cells Acanthocytes (Spur) Rouleaux Schistocytes D-Dimer Quant (PE/DVT) Sodium Cancelled 138 Potassium Cancelled 3.7 Chloride Cancelled 107 Carbon Dioxide Cancelled 26.0 Anion Gap Cancelled 5 BUN Cancelled 10 Creatinine Cancelled 0.73 Estim Creat Clear Calc Cancelled 75.35 Est GFR (MDRD) Af Amer Cancelled 109 Est GFR (MDRD) Non-Af Cancelled 90 BUN/Creatinine Ratio Cancelled 13.7 Glucose Cancelled 95 Calcium Cancelled 8.3 L Troponin I < 0.015 < 0.015 Triglycerides Cholesterol LDL Cholesterol VLDL Cholesterol HDL Cholesterol 08/20/18 02:12 WBC Corrected WBC RBC Hgb Hct MCV MCH MCHC RDW RDW Differential Plt Count MPV Immature Gran % (Auto) Neut % (Auto) Lymph % (Auto) [place] % (Auto) Eos % (Auto) Baso % (Auto) Immature Gran # (Auto) Absolute Neuts (auto) Absolute Lymphs (auto) Absolute Monos (auto) Total Counted Neutrophils % (Manual) Band Neutrophils % Lymphocytes % (Manual) Monocytes % (Manual) Eosinophils % (Manual) Basophils % (Manual) Metamyelocytes % Myelocytes % Promyelocytes % Blast Cells % Plasma Cell % (Manual) Other Cells % Lymphocytes # Nucleated RBCs/100 WBC Differential Comment Diff Path Review Hypersegmented Neuts Atypical Lymphocytes Reactive Lymphocytes Smudge Cells Eosinophilia # Basophilia # Toxic Granulation Dohle Bodies Karin Rods Platelet Estimate Plt Morphology Comment RBC Morphology Polychromasia Hypochromasia Poikilocytosis Basophilic Stippling Anisocytosis Microcytosis Macrocytosis Spherocytes Sickle Cells Target Cells Tear Drop Cells Ovalocytes Stomatocytes [place] Bodies Lina Cells Bite Cells Acanthocytes (Spur) Rouleaux Schistocytes D-Dimer Quant (PE/DVT) Sodium Potassium Chloride Carbon Dioxide Anion Gap BUN Creatinine Estim Creat Clear Calc Est GFR (MDRD) Af Amer Est GFR (MDRD) Non-Af BUN/Creatinine Ratio Glucose Calcium Troponin I Triglycerides 152 Cholesterol 232 H LDL Cholesterol 162 H VLDL Cholesterol 30 HDL Cholesterol 40 Discharge Diet: Low fat/ Low Cholesterol Discharge Activity: Return to Normal Activity Call your doctor if you observe: Shortness of breath, Dizziness, Fainting spells, Chest pain Home Medications: Medications to take at Discharge Duloxetine Hcl [Cymbalta] 90 mg PO QHS 03/02/13 Ropinirole HCl [Requip] 4 mg PO QHS 03/10/14 Omeprazole [Prilosec] 40 mg PO QHS 11/06/14 Valacyclovir HCl [Valtrex] 500 mg PO QHS 12/06/16 Cetirizine HCl [Zyrtec] 10 mg PO QHS 01/22/17 Losartan Potassium [Cozaar] 50 mg PO QHS 01/22/17 Naproxen [Naprosyn] 500 mg PO BID PRN 03/08/17 Triamcinolone Acetonide [Nasacort Aq Nasal [place]] 1 spray NASAL BID PRN 11/04/17 Nitroglycerin [Nitrostat] 0.4 mg SL Q10M PRN 11/09/17 Atorvastatin Calcium 10 mg PO QHS #30 tablet 08/20/18 Following Prescrptions Were Given to Patient: Atorvastatin Calcium 10 mg PO QHS #30 tablet Primary Care Physician: Tang Olguin DO [Primary Care Provider] - Please follow up with your Primary Care Physician in: 1 Week Disposition: Home Minutes spent on discharge:: 35 Patient Condition:: Stable Medical Necessity - Tobacco Use Smoking Status: Never smoker Tobacco Use: Non-smoker Meaningful Use Info Meaningful Use Diagnoses (Choose all that apply): None applicable <Nick Diaz F - Last Filed: 08/20/18 14:45> Discharge Date and Diagnosis - Secondary Discharge Diagnosis Chronic Problems Obesity, Class III, BMI 40-49.9 (morbid obesity) (Chronic) Hiatal hernia (Chronic) GERD (gastroesophageal reflux disease) (Chronic) Ovarian cyst (Chronic) Fibromyalgia (Chronic) Depression (Chronic) H/O deep venous thrombosis (Chronic) Hospital Course and Treatment Imaging Results: 08/20/18 10:10 Nuclear Stress Test - Treadmil [NM] Stat Summary of Care Provided: The patient is a 48 year old F [] - Physical Exam Vital Signs Temp Pulse Resp BP Pulse Ox 98.1 F 76 16 127/83 H 97 08/20/18 14:41 08/20/18 14:41 08/20/18 14:41 08/20/18 14:41 08/20/18 14:41 Oxygen Delivery Method Room Air Weight: 233 lb 0.458 oz Body Mass Index (BMI) 42.6 Finger Stick Blood Glucose 121 Intake and Output for Last 24 Hours 08/18/18 08/19/18 08/20/18 23:59 23:59 23:59 Intake Total 673 / 673 992 / 992 Balance 673 / 673 992 / 992 Laboratory Tests Past 24 Hrs 08/19/18 08/19/18 08/19/18 16:05 16:05 16:05 WBC 8.6 Corrected WBC RBC 4.47 Hgb 12.1 Hct 36.8 L MCV 82.3 MCH 27.1 MCHC 32.9 RDW 14.2 RDW Differential 43.1 Plt Count 265 MPV 9.7 Immature Gran % (Auto) 0.200 Neut % (Auto) 68.5 Lymph % (Auto) 24.5 Bucks % (Auto) 5.5 Eos % (Auto) 0.8 Baso % (Auto) 0.5 Immature Gran # (Auto) Absolute Neuts (auto) 5.9 Absolute Lymphs (auto) 2.10 Absolute Monos (auto) Total Counted Not Reportable Neutrophils % (Manual) Band Neutrophils % Lymphocytes % (Manual) Monocytes % (Manual) Eosinophils % (Manual) Basophils % (Manual) Metamyelocytes % Myelocytes % Promyelocytes % Blast Cells % Plasma Cell % (Manual) Other Cells % Lymphocytes # Nucleated RBCs/100 WBC Differential Comment Diff Path Review Hypersegmented Neuts Atypical Lymphocytes Reactive Lymphocytes Smudge Cells Eosinophilia # Basophilia # Toxic Granulation Dohle Bodies Karin Rods Platelet Estimate Plt Morphology Comment RBC Morphology Polychromasia Hypochromasia Poikilocytosis Basophilic Stippling Anisocytosis Microcytosis Macrocytosis Spherocytes Sickle Cells Target Cells Tear Drop Cells Ovalocytes Stomatocytes [place] Bodies [place] Cells Bite Cells Acanthocytes (Spur) Rouleaux Schistocytes D-Dimer Quant (PE/DVT) Cancelled Sodium 137 Potassium 3.9 Chloride 105 Carbon Dioxide 26.0 Anion Gap 6 BUN 10 Creatinine 0.78 Estim Creat Clear Calc 70.52 Est GFR (MDRD) Af Amer 101 Est GFR (MDRD) Non-Af 84 BUN/Creatinine Ratio 12.8 Glucose 89 Calcium 8.8 Troponin I < 0.015 Triglycerides Cholesterol LDL Cholesterol VLDL Cholesterol HDL Cholesterol 08/19/18 08/19/18 08/19/18 16:05 16:58 20:00 WBC Cancelled Corrected WBC Cancelled RBC Cancelled Hgb Cancelled Hct Cancelled MCV Cancelled MCH Cancelled MCHC Cancelled RDW Cancelled RDW Differential Cancelled Plt Count Cancelled MPV Cancelled Immature Gran % (Auto) Cancelled Neut % (Auto) Cancelled Lymph % (Auto) Cancelled [place] % (Auto) Cancelled Eos % (Auto) Cancelled Baso % (Auto) Cancelled Immature Gran # (Auto) Cancelled Absolute Neuts (auto) Cancelled Absolute Lymphs (auto) Cancelled Absolute Monos (auto) Cancelled Total Counted Cancelled Neutrophils % (Manual) Cancelled Band Neutrophils % Cancelled Lymphocytes % (Manual) Cancelled Monocytes % (Manual) Cancelled Eosinophils % (Manual) Cancelled Basophils % (Manual) Cancelled Metamyelocytes % Cancelled Myelocytes % Cancelled Promyelocytes % Cancelled Blast Cells % Cancelled Plasma Cell % (Manual) Cancelled Other Cells % Cancelled Lymphocytes # Cancelled Nucleated RBCs/100 WBC Cancelled Differential Comment Cancelled Diff Path Review Cancelled Hypersegmented Neuts Cancelled Atypical Lymphocytes Cancelled Reactive Lymphocytes Cancelled Smudge Cells Cancelled Eosinophilia # Cancelled Basophilia # Cancelled Toxic Granulation Cancelled Dohle Bodies Cancelled Karin Rods Cancelled Platelet Estimate Cancelled Plt Morphology Comment Cancelled RBC Morphology Cancelled Polychromasia Cancelled Hypochromasia Cancelled Poikilocytosis Cancelled Basophilic Stippling Cancelled Anisocytosis Cancelled Microcytosis Cancelled Macrocytosis Cancelled Spherocytes Cancelled Sickle Cells Cancelled Target Cells Cancelled Tear Drop Cells Cancelled Ovalocytes Cancelled Stomatocytes Cancelled [place] Bodies Cancelled [place] Cells Cancelled Bite Cells Cancelled Acanthocytes (Spur) Cancelled Rouleaux Cancelled Schistocytes Cancelled D-Dimer Quant (PE/DVT) < 0.27 L Sodium Potassium Chloride Carbon Dioxide Anion Gap BUN Creatinine Estim Creat Clear Calc Est GFR (MDRD) Af Amer Est GFR (MDRD) Non-Af BUN/Creatinine Ratio Glucose Calcium Troponin I < 0.015 Triglycerides Cholesterol LDL Cholesterol VLDL Cholesterol HDL Cholesterol 08/19/18 08/20/18 08/20/18 22:38 02:12 02:12 WBC Corrected WBC RBC Hgb Hct MCV MCH MCHC RDW RDW Differential Plt Count MPV Immature Gran % (Auto) Neut % (Auto) Lymph % (Auto) [place] % (Auto) Eos % (Auto) Baso % (Auto) Immature Gran # (Auto) Absolute Neuts (auto) Absolute Lymphs (auto) Absolute Monos (auto) Total Counted Neutrophils % (Manual) Band Neutrophils % Lymphocytes % (Manual) Monocytes % (Manual) Eosinophils % (Manual) Basophils % (Manual) Metamyelocytes % Myelocytes % Promyelocytes % Blast Cells % Plasma Cell % (Manual) Other Cells % Lymphocytes # Nucleated RBCs/100 WBC Differential Comment Diff Path Review Hypersegmented Neuts Atypical Lymphocytes Reactive Lymphocytes Smudge Cells Eosinophilia # Basophilia # Toxic Granulation Dohle Bodies Karin Rods Platelet Estimate Plt Morphology Comment RBC Morphology Polychromasia Hypochromasia Poikilocytosis Basophilic Stippling Anisocytosis Microcytosis Macrocytosis Spherocytes Sickle Cells Target Cells Tear Drop Cells Ovalocytes Stomatocytes [place] Bodies [place] Cells Bite Cells Acanthocytes (Spur) Rouleaux Schistocytes D-Dimer Quant (PE/DVT) Sodium Cancelled 138 Potassium Cancelled 3.7 Chloride Cancelled 107 Carbon Dioxide Cancelled 26.0 Anion Gap Cancelled 5 BUN Cancelled 10 Creatinine Cancelled 0.73 Estim Creat Clear Calc Cancelled 75.35 Est GFR (MDRD) Af Amer Cancelled 109 Est GFR (MDRD) Non-Af Cancelled 90 BUN/Creatinine Ratio Cancelled 13.7 Glucose Cancelled 95 Calcium Cancelled 8.3 L Troponin I < 0.015 < 0.015 Triglycerides Cholesterol LDL Cholesterol VLDL Cholesterol HDL Cholesterol 08/20/18 02:12 WBC Corrected WBC RBC Hgb Hct MCV MCH MCHC RDW RDW Differential Plt Count MPV Immature Gran % (Auto) Neut % (Auto) Lymph % (Auto) [place] % (Auto) Eos % (Auto) Baso % (Auto) Immature Gran # (Auto) Absolute Neuts (auto) Absolute Lymphs (auto) Absolute Monos (auto) Total Counted Neutrophils % (Manual) Band Neutrophils % Lymphocytes % (Manual) Monocytes % (Manual) Eosinophils % (Manual) Basophils % (Manual) Metamyelocytes % Myelocytes % Promyelocytes % Blast Cells % Plasma Cell % (Manual) Other Cells % Lymphocytes # Nucleated RBCs/100 WBC Differential Comment Diff Path Review Hypersegmented Neuts Atypical Lymphocytes Reactive Lymphocytes Smudge Cells Eosinophilia # Basophilia # Toxic Granulation Dohle Bodies Karin Rods Platelet Estimate Plt Morphology Comment RBC Morphology Polychromasia Hypochromasia Poikilocytosis Basophilic Stippling Anisocytosis Microcytosis Macrocytosis Spherocytes Sickle Cells Target Cells Tear Drop Cells Ovalocytes Stomatocytes [place] Bodies Lina Cells Bite Cells Acanthocytes (Spur) Rouleaux Schistocytes D-Dimer Quant (PE/DVT) Sodium Potassium Chloride Carbon Dioxide Anion Gap BUN Creatinine Estim Creat Clear Calc Est GFR (MDRD) Af Amer Est GFR (MDRD) Non-Af BUN/Creatinine Ratio Glucose Calcium Troponin I Triglycerides 152 Cholesterol 232 H LDL Cholesterol 162 H VLDL Cholesterol 30 HDL Cholesterol 40 Code Visit Addendum: Dr. Diaz I personally examined the patient and reviewed the chart. I agree with the above. 48-year-old female with a history of hypertension and morbid obesity presenting with chest pain. She ruled out with an EKG and serial troponins. She underwent a stress test today which was normal. Her chest pain has resolved and she is okay for discharge. I do recommend modification in her lifestyle given her BMI of 42. OBSV E&M: 31178 Observation care discharge
--- NOTE | 2018-08-20 14:51 | NURSING ---
Work excuse provided for 08/19 and 08/20. Discharge teaching completed. Patient voices understanding of same.
--- NOTE | 2018-08-20 15:36 | CHAPLAIN ---
Type of Pastoral Visit _x__ Initial Visit ___ Follow-up Visit ___ On-call Visit ___ General Patient Visit ___ Spiritual Assessment ___ Family Conference ___ Bereavement ___ Rapid Response ___ Code Blue ___ Other (describe below) Pastoral Care Referral From _x__ Patient ___ Family ___ Nurse ___ Physician ___ Zanjero ___ Electronics Scale Tester ___ Other (describe below) Sacrament/Intervention _x__ Active listening ___ Anointing ___ Sikh ___ Bereavement ___ Communion ___ Mikaela exploration ___ _x__ Life review _x__ Prayer ___ Reconciliation ___ Sacrament of Sick ___ Supportive presence ___ Wedding ___ Other (describe below) Pastoral Comments
== END 2018-08-20 14:08 | disposition home or self-care (01) ==
LOC: ED 16:47 → PCU 18:43
PROVIDERS: Nurse Practitioner Family; Admitting Provider Internal Medicine; Emergency Provider Emergency Medicine; Family Provider Student in an Organized Health Care Education/Training Program; PCP Student in an Organized Health Care Education/Training Program; Referring Provider Internal Medicine; Visit Provider Family Medicine
DX: R07.89 Other chest pain (principal); H81.10 Benign paroxysmal vertigo, unspecified ear; I10 Essential (primary) hypertension; R51 Headache; E78.5 Hyperlipidemia, unspecified; E66.01 Morbid (severe) obesity due to excess calories; K21.9 Gastro-esophageal reflux disease without esophagitis; F32.9 Major depressive disorder, single episode, unspecified; M79.7 Fibromyalgia; F41.9 Anxiety disorder, unspecified; Z86.718 Personal history of other venous thrombosis and embolism; Z79.899 Other long term (current) drug therapy; Z68.41 Body mass index [BMI] 40.0-44.9, adult; Z71.3 Dietary counseling and surveillance
CPT/HCPCS: 36415; 70450; 71045; 78452; 80048; 80061; 84484; 85025; 85379; 93005; 93017; 96360; 96361; 97161; 99218; 99284; A9500; J7030; A4216; G0378

== ENCOUNTER → 2018-10-30 17:17 | Outpatient (CLI) | payer MEDICAID, SELFPAY ==
[2018-08-19 19:16] VITALS: BMI 42.6
== END ==
PROVIDERS: Family Provider Student in an Organized Health Care Education/Training Program; PCP Student in an Organized Health Care Education/Training Program; Referring Provider Otolaryngology Otolaryngology/Facial Plastic Surgery; Visit Provider Otolaryngology Otolaryngology/Facial Plastic Surgery
DX: J02.9 Acute pharyngitis, unspecified (principal)
CPT/HCPCS: 87070

== ENCOUNTER 2019-01-27 19:45 | Emergency (ER) | payer MEDICAID, SELFPAY ==
[2018-08-19 19:16] VITALS: BMI 42.6
[2019-01-27 19:46] VITALS: BP 132/89; PULSE 88; RESP 20; TEMP 36.5; O2SAT 100; BMI 43.4
--- NOTE | 2019-01-27 20:19 | EKG12_ITS ---
Test Reason : SOB Blood Pressure : / mmHG Vent. Rate : 084 BPM Atrial Rate : 084 BPM P-R Int : 162 ms QRS Dur : 076 ms QT Int : 358 ms P-R-T Axes : 014 004 021 degrees QTc Int : 423 ms Normal sinus rhythm Normal ECG Confirmed by PAM NAVARRO, JULIANA ([id number]), make up editor LORIE SULLIVAN ([id number]) on 01/29/2019 2:07:55 PM Referred By: JH Confirmed By:JULIANA OROZCO MD
--- NOTE | 2019-01-27 20:25 | US_ITS ---
STUDY: VENOUS DOPPLER ULTRASOUND - BILATERAL LOWER EXTREMITIES REASON FOR EXAM: Female, 48 years old. Shortness of breath TECHNIQUE: Ultrasound evaluation of the deep vein system to include suárez-scale imaging and compression was performed. Suárez-scale imaging and Doppler sonographic evaluation, including duplex spectral analysis and qualitative color flow sonography, was performed. COMPARISON: None. FINDINGS: RIGHT LEG Common Femoral Vein: Normal compression, spontaneity and augmentation. Normal color Doppler. Common Femoral Vein/Greater Saphenous Junction: Normal compression. Femoral Proximal: Normal compression. Femoral Middle: Normal compression, spontaneity and augmentation. Normal color Doppler. Femoral Distal: Normal compression. Popliteal Vein: Normal compression, spontaneity and augmentation. Normal color Doppler. Posterior Tibial Vein: Normal compression. Peroneal Vein: Normal compression. LEFT LEG Common Femoral Vein: Normal compression, spontaneity and augmentation. Normal color Doppler. Common Femoral Vein/Greater Saphenous Junction: Normal compression. Femoral Proximal: Normal compression. Femoral Middle: Normal compression, spontaneity and augmentation. Normal color Doppler. Femoral Distal: Normal compression. Popliteal Vein: Normal compression, spontaneity and augmentation. Normal color Doppler. Posterior Tibial Vein: Normal compression. Peroneal Vein: Normal compression. US/Venous Duplex Imag/Aldo Extrem IMPRESSION: Normal venous Doppler ultrasound of the bilateral lower extremities. Electronically Signed: Waldemar Marr DO at 21:52 EST Tel [phone], Service support ,
[2019-01-27 20:33] VITALS: PULSE 91; RESP 14; O2SAT 98; O2SAT 99
--- NOTE | 2019-01-27 20:40 | RAD_ITS ---
STUDY: X-RAY CHEST REASON FOR EXAM: Female, 48 years old. Cough TECHNIQUE: Frontal and lateral views COMPARISON: August 19, 2018 FINDINGS: The lungs are clear and expanded. There is no demonstrated pleural abnormality. Normal size heart. Normal mediastinum and sagar. Normal visualized pulmonary arteries. Normal visualized aortic arch and descending thoracic aorta. Normal visualized thoracic spine. Normal visualized ribs, clavicles, and shoulders. There is no demonstrated abnormality of the visualized soft tissue structures of the upper abdomen. RAD/Chest PA and Lateral IMPRESSION: Normal x-ray examination of the chest. Electronically Signed: Waldemar Marr DO at 21:19 EST Tel [phone], Service support ,
[2019-01-27 20:49] LABS: Absolute Lymphocyte Count 2.25 X10^3/uL (0.83-4.51); Absolute Neutrophil Count 3.7 X10^3/uL (2.0-7.7); Basophil# 0.05 X10^3/uL; Basophil% 0.7 % (0-1); Eosinophil# 0.12 X10^3/uL; Eosinophils% 1.8 % (0-5); Hematocrit 39.3 % (37-47); Hemoglobin 12.6 g/dL (12.0-15.0); Lymphocyte # 2.25 X10^3/ul (4.0); Lymphocyte % 33.3 % (19-41); Mean Corp Hgb Conc 32.1 g/dL (32-36); Mean Corpuscular Hgb 27.2 pg (27.0-32.0); Mean Corpuscular Volume 84.7 fL (81-99); Mean Platelet Vol. 9.5 fl (6.2-12.0); Monocyte# 0.58 X10^3/uL; Monocyte% 8.6 % (0-10); NRBC Flagged by Analyzer 0 % (0-5); Neutrophil # 3.71 X10^3/uL (2.7-7.7); Platelet Count 272 K/mm3 (150-450); RBC Distribution Width CV 14.3 % (11.6-14.6); RBC Distribution Width SD 44.2 fl (35.1-43.9); Red Blood Count 4.64 M/mm3 (4.2-5.4); White Blood Count 6.8 K/mm3 (4.4-11.0)
[2019-01-27 21:08] LABS: D-Dimer Quantitative (DVT/PE) 0.39 FEU/ug/m (0.27-0.49)
[2019-01-27 21:15] LABS: ALB/GLOB Ratio 0.8 RATIO (0.9-2.4); AST(SGOT) 16 U/L (15-37); Alanine Aminotransfer ALT/SGPT 32 U/L (13-56); Albumin, Serum 3.4 g/dL (3.2-5.0); Alkaline Phosphatase 122 U/L (45-117); Anion Gap 7 (5-15); BUN 14 mg/dL (7-18); BUN/Creat Ratio 14.7 RATIO (10-20); Calcium,Total 8.8 mg/dL (8.5-10.1); Chloride 109 mmol/L (98-107); Creatinine, Serum 0.95 mg/dL (0.55-1.02); EST Glomerular Filtration Rate 67 mL/min (>60); Est Glom Filt Rate - Afr Amer 81 mL/min (>60); Globulin 4.1 g/dL (2.2-4.2); Glucose 71 mg/dL (74-106); Potassium 3.5 mmol/L (3.5-5.1); Protein, Total 7.5 g/dL (6.4-8.2); Sodium Level 141 mmol/L (136-145)
[2019-01-27] MEDS: 0.9% Normal Saline 1,000 ML 1000 ML IV (21:24)
[2019-01-27] MEDS: Acetaminophen 500 MG Tablet 1000 MG PO (21:24)
--- NOTE | 2019-01-27 22:20 | ED.VISSUMM ---
- ER Visit Summary Date of Service: 01/27/19 Chief Complaint: Shortness of breath and cough History of Present Illness: The patient is a [address] Olguin. She reports that she has had a nonproductive cough for the past 2 months. She reports subjective fever and chills. States that she is been short of breath since yesterday. She has been wheezing. She is using her inhaler without relief. Patient reports that she has a history of DVT and is not been on anticoagulant for a couple of years. She had right calf pain yesterday that resolved and she is not having pain now. However, she reports that she has chest pain with deep breath swelling that began yesterday as well. Physical Examination: Vitals: Stable. Afebrile. General: Well-nourished and well-developed. Head: Normocephalic atraumatic. Neck: Supple, no lymphadenopathy. No JVD. Nontender. Cardiovascular: Regular rate and rhythm. No murmurs. Respiratory: No respiratory distress. Clear to auscultation bilaterally. Abdominal: Soft, nontender, nondistended, normal bowel sounds. No guarding, rebound, or peritoneal signs. Back: Nontender. Extremities: Nontender, no edema. Skin: Normal color, no rash. Neurologic: Alert and oriented ?3. Cranial nerves II through XII are intact. Normal strength and sensation. Psych: Normal affect. Test Results: EKG is sinus at 84 with no acute changes. Troponin is negative. D-dimer is negative. LFTs are marked for alk phos 122. Chem-7 shows a chloride of 109 and glucose of 71. CBC is normal. Bilateral lower extreme Dopplers are negative. Chest x-ray shows no acute disease. Emergency Department Course and Treatment: Patient is resting comfortably without complaint. Treatment Plan: Patient did not want to be placed on steroids. She does not smoke I do not think that there is an indication for an antibiotic. She will be discharged instructions to continue to use her inhaler. Follow-up with her primary care physician in 3 to 5 days if not improving. Return to the emergency department for any worsening symptoms. Disposition: To home in improved and stable condition. Impression: 1. URI. This note was generated with [employer] dictation software. It may contain incorrect words, spelling, and punctuation that were not noted in review of the chart prior to signing ED Disposition - Plan for ED Patient: Disposition: Home or Assisted Living Instructions: BRONCHITIS, No Antibiotic (Adult) Referrals: Tang Olguin, [Primary Care Provider] - 3-5 Days if not improving
[2019-01-27 22:29] VITALS: BP 117/86; PULSE 81; RESP 14; O2SAT 98
== END 2019-01-27 22:31 | disposition home or self-care (01) ==
LOC: ED 20:04
PROVIDERS: Emergency Provider Emergency Medicine; Family Provider Student in an Organized Health Care Education/Training Program; PCP Student in an Organized Health Care Education/Training Program
DX: J06.9 Acute upper respiratory infection, unspecified (principal); Z86.718 Personal history of other venous thrombosis and embolism; I10 Essential (primary) hypertension; E78.00 Pure hypercholesterolemia, unspecified; M79.7 Fibromyalgia
CPT/HCPCS: 71046; 80053; 84484; 85025; 85379; 93005; 93970; 96360; 99284; J7030; A4216

== ENCOUNTER 2019-02-16 20:21 | Emergency (ER) | payer MEDICAID, SELFPAY ==
[2019-02-16 20:22] VITALS: BP 156/104; PULSE 91; RESP 18; TEMP 37.1; O2SAT 99; BMI 41.1
--- NOTE | 2019-02-16 20:38 | ED.DCSUM_ITS ---
- ER Visit Summary Date of Service: 02/16/19 Chief Complaint: Cough and wheezing History of Present Illness: The patient is a 48 F history of hypertension prediabetic. Patient states for 2 months she has had a cough developed wheezing over the last several weeks. Saw her in the urgent care had a chest x-ray which is negative but a week ago. She is on an inhaler. But states she is getting worse instead of better. Intermittent fevers of 101. Denies nausea vomiting or diarrhea. No hemoptysis. She is a non-smoker but is around people smoke frequently. Physical Examination: Middle-aged female no acute distress vital signs are stable afebrile. Pulse ox 99% on room air no signs hypoxia. HEENT exam posterior pharynx normal. Moist and pink. No erythema or exudate. No drooling or stridor. TMs normal bilaterally. Neck nontender no lymphadenopathy. Lungs dry hacking cough. Expiratory wheezing throughout both sides. No rales or rhonchi. Heart regular rhythm no murmur. Abdomen soft nontender normal bowel sounds no peritoneal signs. Moving all 4 extremities. Calves are nontender without edema or cords. Neurologically she is awake and alert with no focal motor deficits. Test Results: None Emergency Department Course and Treatment: Patient had a 1 to 2-month history of a cough is progressively getting worse. I will start her on Zithromax Z-ESTELLE first dose in ER. Prednisone daily first dose given in ER. Follow-up. Treatment Plan: Tinea her inhaler. Prednisone daily for 1 week 40 mg a day. Zithromax Z-ESTELLE. Disposition: Discharge Impression: Bronchitis with bronchospasm This note was generated with [employer] dictation software. It may contain incorrect words, spelling, and punctuation that were not noted in review of the chart prior to signing ED Disposition - Plan for ED Patient: Referrals: Tang Olguin DO [Primary Care Provider] -
--- NOTE | 2019-02-16 20:40 | ED.DEP ---
ED Disposition - Plan for ED Patient: Disposition: Home or Assisted Living Instructions: BRONCHITIS with Wheezing (Adult) Prescriptions: Prednisone [Deltasone] 40 mg PO DAILY 7 Days tab Prescription Printed Azithromycin [Zithromax] 250 mg PO DAILY #4 tab Prescription Printed Referrals: Tang Olguin DO [Primary Care Provider] - 1 Week if not improving Additional Instructions: Prednisone daily for 7 days. Zithromax daily for 4 more days start tomorrow. Use your inhaler. Follow-up with not improving.
[2019-02-16] MEDS: predniSONE 20 MG Tablet 60 MG PO (20:51)
[2019-02-16] MEDS: Azithromycin 250 MG Tablet 500 MG PO (20:52)
[2019-02-16 20:54] VITALS: RESP 16
== END 2019-02-16 20:54 | disposition home or self-care (01) ==
LOC: ED 20:48
PROVIDERS: Emergency Provider Emergency Medicine; Family Provider Student in an Organized Health Care Education/Training Program; PCP Student in an Organized Health Care Education/Training Program
DX: J40 Bronchitis, not specified as acute or chronic (principal); I10 Essential (primary) hypertension
CPT/HCPCS: 99284

== ENCOUNTER → 2019-02-19 15:51 | Outpatient (CLI) | payer MEDICAID, SELFPAY ==
[2019-02-16 20:22] VITALS: BMI 41.1
== END ==
PROVIDERS: Family Provider Student in an Organized Health Care Education/Training Program; PCP Student in an Organized Health Care Education/Training Program; Referring Provider Otolaryngology Otolaryngology/Facial Plastic Surgery; Visit Provider Otolaryngology Otolaryngology/Facial Plastic Surgery
DX: J32.9 Chronic sinusitis, unspecified (principal)
CPT/HCPCS: 87070; 87077; 87186; 87205

== ENCOUNTER 2019-02-25 11:32 | Emergency (ER) | payer MEDICAID, SELFPAY ==
[2019-02-25 11:33] VITALS: BP 122/75; PULSE 80; RESP 20; TEMP 37.2; O2SAT 99; BMI 42.0
--- NOTE | 2019-02-25 12:08 | EKG12_ITS ---
Test Reason : SOB Blood Pressure : / mmHG Vent. Rate : 078 BPM Atrial Rate : 078 BPM P-R Int : 138 ms QRS Dur : 074 ms QT Int : 372 ms P-R-T Axes : 050 011 025 degrees QTc Int : 424 ms Normal sinus rhythm with sinus arrhythmia Normal ECG Confirmed by DANIELLE NAVARRO, [place] ([id number]), book editor DAMARI PACK ([id number]) on 03/03/2019 11:52:01 AM Referred By: NACHO Confirmed By:DENNIS SANTOS MD
--- NOTE | 2019-02-25 12:08 | RAD_ITS ---
STUDY: X-RAY CHEST REASON FOR EXAM: Female, 48 years old. 2 1/2 month history of a cough and cold-like symptoms. TECHNIQUE: PA and lateral views of the chest. COMPARISON: Comparison is made with prior study dated January 27, 2019. FINDINGS: EKG lateral dressing. The lungs are clear and expanded. Scattered calcified granulomas. There is no demonstrated pleural abnormality. Normal size heart. Normal mediastinum and sagar. Normal visualized pulmonary arteries. Normal visualized aortic arch and descending thoracic aorta. Normal visualized thoracic spine. Normal visualized ribs, clavicles, and shoulders. There is no demonstrated abnormality of the visualized soft tissue structures of the upper abdomen. RAD/Chest PA and Lateral IMPRESSION: Normal x-ray examination of the chest. Electronically Signed: Colby Cruz, at 13:20 EST , Service support ,
--- NOTE | 2019-02-25 12:10 | ED.DCSUM_ITS ---
History of Present Illness Chief Complaint: Shortness of Breath Informant: Patient Onset: Weeks Context: Gradual Onset Timing: Continuous Associated Symptoms: Nasal Congestion, Headache, Chest Pain, Productive Cough Narrative: Patient is a 48-year-old female with history of fibromyalgia, depression, hypertension and prediabetes presenting with worsening cough and upper respiratory symptoms. Patient states she has been sick for the past 2-1/2 months. She does unspecified that she had a cold at the beginning that was treated with amoxicillin. She then had a stomach flu which had vomiting and diarrhea. Now for the past month she has had another cold/respiratory symptoms. She states she is wheezing with sinus congestion and cough. She notes she was on a course of Augmentin and then was switched to cefdinir. She still currently on the cefdinir. She also has been on prednisone but is not on any currently. Patient states she followed up with Dr. Mayorga who swabbed her nose and said there is 2 types of bacteria in it. He is on his been prescribed antibiotics. Chart review shows that 1 month ago patient was seen for URI and started on a Z- Jose, prednisone taper and an albuterol inhaler. Patient notes he has been significantly worsening over the past 24 to 48 hours. She states she is been worsening and the intensity of her symptoms. She has chest pain associated with her coughing. She has had associated nausea and posttussive emesis. She has chills and sweats but is not sure if she is had a fever. She states her cough is been productive of green sputum as well as blood. She denies any abdominal pain, diarrhea or leg swelling. She denies any other complaints at this time. She saw her PCP earlier today who apparently sent her to the emergency room for further evaluation of the symptoms. Past Medical History - Allergies and Home Meds Allergies/Adverse Reactions: Allergies hydromorphone HCl [From Dilaudid] Allergy (Verified 02/25/19 11:36) Chest tightness warfarin sodium [From Coumadin] Allergy (Verified 02/25/19 11:36) Chest tightness milnacipran HCl [From Savella] Adverse Reaction (Verified 02/25/19 11:36) Other pt does not remember pregabalin [From Lyrica] Adverse Reaction (Verified 02/25/19 11:36) Rash rivaroxaban [From Xarelto] Adverse Reaction (Verified 02/25/19 11:36) Nausea Primary Care Physician: Tang Olguin DO [Primary Care Provider] - Past Medical History: - - GERD, hiatal hernia, fibromyalgia, depression, history of DVT Surgical History: cholecystectomy, - - , foot surgery for plantar fasciitis, breast reduction, uterine ablation,egd,carpal tunnel Smoking Status: Never smoker - Family History Maternal Family History: Reports: Pulmonary Disease, No pertinent history, - - no history of CVD or CVA's, no FH of migraines, Paternal Family History: Reports: Pulmonary Disease Sibling Family History: Reports: - - sister with fibromyalgia Review of Systems General: Reports: Fever, Malaise Eyes: Denies: Visual changes - bilaterally, Diplopia ENT: Reports: Rhinorrhea, - - Sinus congestion. Denies: Sore throat Cardiovascular: Reports: Chest pain. Denies: Palpitations Respiratory: Reports: Cough, Sputum. Denies: Dyspnea, Dyspnea on exertion Gastrointestinal: Reports: Nausea, Vomiting - Posttussive. Denies: Abdominal pain, Diarrhea, Melena, Hematochezia Genitourinary: Denies: Dysuria, Hematuria, Frequency Musculoskeletal: Reports: Myalgias. Denies: Back pain, Extremity Pain Skin: Denies: Rash, Wounds Neurological: Denies: Headache, Weakness, Numbness Physical Exam Vital Signs/Narrative: Vital Signs Temp Pulse Resp BP Pulse Ox 02/25/19 11:33 98.9 F 80 20 H 122/75 H 99 Inital Vital Signs reviewed: Yes General: Well nourished, Well developed Head: Normocephalic, Atraumatic Eyes: Perrl, EOMI Ears: Normal external canal, - - Mild Erythema and injection of the bilateral TMs but no bulging or no fluid level Nose: Normal Inspection, No Rhinorrhea. Negative for: Swollen Turbinates Mouth/Throat: Normal Inspection, No Posterior Erythema Neck: Supple, Nontender, No Lymphadenopathy, No Meningismus Cardiovascular: Regular rate, Regular rhythm, No murmurs Respiratory: No distress, Chest nontender, Wheezing - Diffuse, bilateral. Negative for: Decreased Air Movement, Chest tenderness Abdomen: Soft, Nontender, Nondistended, Normal bowel sounds Back: Nontender, Normal Inspection Extremities: Nontender, No edema Skin: Normal color, No rash Neurological: Alert, Oriented x3, Cranial nerves II-XII grossly intact, Normal Strength, Normal Sensation Psychological: Normal affect Diagnostic/Tx/Re-eval Chest X-Ray - ED: 2 View, Read by ED Physician, Read by Radiologist, No Acute Disease Clinical Impression(s) from Imaging Studies Chest X-Ray 02/25/19 12:08 IMPRESSION: Normal x-ray examination of the chest. Electronically Signed: Colby Curz, at 13:20 EST , Service support , Laboratory Data 02/25/19 02/25/19 12:35 12:35 WBC 8.6 RBC 4.57 Hgb 12.2 Hct 38.6 MCV 84.5 MCH 26.7 L MCHC 31.6 L RDW Std Deviation 44.3 H RDW Coeff of [place] 14.5 Plt Count 266 MPV 9.3 Immature Gran % (Auto) 0.600 Neut % (Auto) 62.5 Lymph % (Auto) 28.1 [place] % (Auto) 7.0 Eos % (Auto) 1.3 Baso % (Auto) 0.5 Absolute Neuts (auto) 5.4 Absolute Lymphs (auto) 2.42 Nucleated RBC % 0 Sodium 138 Potassium 3.8 Chloride 104 Carbon Dioxide 30.0 Anion Gap 4 L BUN 7 Creatinine 0.80 Estim Creat Clear Calc 68.76 Est GFR (MDRD) Af Amer 99 Est GFR (MDRD) Non-Af 82 BUN/Creatinine Ratio 8.8 L Glucose 85 Calcium 8.3 L - Rhythm Strip Rhythm Strip: Sinus Rhythm Rate: 78 Ectopy: None - EKG Initial EKG Interpretation: Sinus Rhythm, Sinus Arrythmia, - - Normal sinus rhythm at a rate of 78 Sinus arrhythmia present Normal intervals Normal axis Normal ST segments - Medical Decision Making Patient is evaluated for cough, wheezing and upper respiratory symptoms. She has associated myalgias. She appears nontoxic in no acute distress. She is given aerosols which improved her symptoms. She is also given oral steroids. Chest x-ray obtained which does not show any acute infiltrate. CBC and BMP are unremarkable. She does not have a significant leukocytosis or anemia. She does not have any significant electrolyte derangement. Patient is hemodynamically stable. I suspect this is a viral syndrome that is causing her symptoms. 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 Patient has an inhaler that she can use at home with a spacer. She is told that she needs to use it every 4-6 hours. I also encouraged her to call her PCP about getting a nebulizer to help with her respiratory symptoms. Patient will be given a prescription for Mucinex D as well as 5-day prednisone c ourse. First dose is given in the emergency room. Patient is counseled on signs and symptoms requiring return to the emergency room. Patient verbalizes agreement and understand this plan. Patient discharged home in stable and improved condition. ED Disposition - Plan for ED Patient: Disposition: Home or Assisted Living Diagnosis: Acute bronchitis Instructions: BRONCHITIS with Wheezing (Adult) Prescriptions: Prednisone [Deltasone] 40 mg PO DAILY #8 tab Prescription Printed Guaifenesin/Pseudoephedrne HCl [Mucinex D ER 1,200-120 mg Tab] 1 ea PO BID PRN #20 tab.er.12h PRN Reason: Congestion Prescription Printed Referrals: Tang Olguin DO [Primary Care Provider] - Additional Instructions: Please follow-up with your primary care doctor next week. You can discuss a prescription for a nebulizer machine to help with your wheezing. Use your albuterol inhaler every 4-6 hours regularly for your cough and wheezing. Drink plenty of fluids. You been given a work note for the remainder of the week. Return to the emergency room if you develop any worsening symptoms.
[2019-02-25] MEDS: predniSONE 20 MG Tablet 60 MG PO (12:23)
[2019-02-25] MEDS: Benzonatate 100 MG Capsule 200 MG PO (12:24)
[2019-02-25] MEDS: Albuterol 2.5 MG/3 ML VIAL.NEB. INHALATION ×3 (12:31→12:52)
[2019-02-25] MEDS: Ipratropium/Albuterol Sulfate 3 ML AMPUL.NEB INHALATION (12:31)
[2019-02-25 12:32] VITALS: PULSE 76; RESP 20
[2019-02-25 12:35] VITALS: BP 125/79; PULSE 86; RESP 16; TEMP 37; O2SAT 97
[2019-02-25] MEDS: 0.9% Normal Saline 1,000 ML 999 ML IV (12:43)
[2019-02-25 12:47] LABS: Absolute Lymphocyte Count 2.42 X10^3/uL (0.83-4.51); Absolute Neutrophil Count 5.4 X10^3/uL (2.0-7.7); Basophil# 0.04 X10^3/uL; Basophil% 0.5 % (0-1); Eosinophil# 0.11 X10^3/uL; Eosinophils% 1.3 % (0-5); Hematocrit 38.6 % (37-47); Hemoglobin 12.2 g/dL (12.0-15.0); Lymphocyte # 2.42 X10^3/ul (4.0); Lymphocyte % 28.1 % (19-41); Mean Corp Hgb Conc 31.6 g/dL (32-36); Mean Corpuscular Hgb 26.7 pg (27.0-32.0); Mean Corpuscular Volume 84.5 fL (81-99); Mean Platelet Vol. 9.3 fl (6.2-12.0); NRBC Flagged by Analyzer 0 % (0-5); Neutrophil % 62.5 % (47-70); Platelet Count 266 K/mm3 (150-450); RBC Distribution Width CV 14.5 % (11.6-14.6); RBC Distribution Width SD 44.3 fl (35.1-43.9); Red Blood Count 4.57 M/mm3 (4.2-5.4); White Blood Count 8.6 K/mm3 (4.4-11.0)
[2019-02-25 12:57] LABS: Anion Gap 4 (5-15); BUN 7 mg/dL (7-18); BUN/Creat Ratio 8.8 RATIO (10-20); Calcium,Total 8.3 mg/dL (8.5-10.1); Chloride 104 mmol/L (98-107); EST Glomerular Filtration Rate 82 mL/min (>60); Est Glom Filt Rate - Afr Amer 99 mL/min (>60); Estimated Creatinine Clearance 68.76 ml/min; Glucose 85 mg/dL (74-106); Potassium 3.8 mmol/L (3.5-5.1); Sodium Level 138 mmol/L (136-145)
[2019-02-25 13:00] VITALS: BP 129/84; PULSE 98; RESP 16; TEMP 36.9; O2SAT 98
[2019-02-25 14:24] VITALS: RESP 18
== END 2019-02-25 14:25 | disposition home or self-care (01) ==
PROVIDERS: Emergency Provider Emergency Medicine; Family Provider Student in an Organized Health Care Education/Training Program; PCP Student in an Organized Health Care Education/Training Program
DX: J20.9 Acute bronchitis, unspecified (principal); F32.9 Major depressive disorder, single episode, unspecified; I10 Essential (primary) hypertension; K21.9 Gastro-esophageal reflux disease without esophagitis; K44.9 Diaphragmatic hernia without obstruction or gangrene; Z86.718 Personal history of other venous thrombosis and embolism; Z88.5 Allergy status to narcotic agent; Z90.49 Acquired absence of other specified parts of digestive tract
CPT/HCPCS: 71046; 80048; 85025; 87804; 93005; 94640; 99251; 99284; J7030; A4216; G0463

== ENCOUNTER → 2019-03-04 12:20 | Outpatient (CLI) | payer MEDICAID, SELFPAY ==
[2019-02-25 11:33] VITALS: BMI 42.0
== END ==
PROVIDERS: Family Provider Student in an Organized Health Care Education/Training Program; PCP Student in an Organized Health Care Education/Training Program; Referring Provider Otolaryngology Otolaryngology/Facial Plastic Surgery; Visit Provider Otolaryngology Otolaryngology/Facial Plastic Surgery
DX: J32.9 Chronic sinusitis, unspecified (principal)
CPT/HCPCS: 87070; 87077

== ENCOUNTER → 2019-03-24 15:16 | Outpatient (CLI) | payer MEDICAID, SELFPAY ==
[2019-02-25 11:33] VITALS: BMI 42.0
== END ==
PROVIDERS: Family Provider Student in an Organized Health Care Education/Training Program; PCP Student in an Organized Health Care Education/Training Program; Referring Provider Otolaryngology Otolaryngology/Facial Plastic Surgery; Visit Provider Otolaryngology Otolaryngology/Facial Plastic Surgery
DX: J02.9 Acute pharyngitis, unspecified (principal)
CPT/HCPCS: 87070

== ENCOUNTER 2019-03-28 15:53 | Emergency (ER) | payer MEDICAID, SELFPAY ==
[2019-03-28 15:54] VITALS: BP 137/93; PULSE 93; PULSE 97; RESP 16; TEMP 36.3; O2SAT 96; O2SAT 97; BMI 43.7
--- NOTE | 2019-03-28 17:09 | CT_ITS ---
STUDY: CT ABDOMEN AND PELVIS WITH CONTRAST REASON FOR EXAM: Female, 48 years old. PT STATED ABDOM PAIN, N/D X 4 DAYS RADIATION DOSAGE (If Supplied By Facility): CTDIvol = ( 17.07 ) mGy, DLP = ( 1242.66 ) mGycm TECHNIQUE: Transaxial images were obtained from the dome of the diaphragm to the symphysis pubis without oral contrast. Oral and amp; IV Readi-CAT and amp; 100mL Isovue-300 was administered. Sagittal and coronal images were reconstructed. Individualized dose optimization techniques were used for this CT. COMPARISON: May 06, 2018 FINDINGS: The visualized lung bases are unremarkable. The visualized portions of the heart are within normal limits. Normal liver. Gallbladder not visualized status post cholecystectomy. Normal spleen. Normal pancreas. Normal bilateral adrenal glands. Normal right kidney. Normal left kidney. Normal visualized stomach. Normal small intestine. Normal colon. No evidence for acute appendicitis Normal abdominal aorta. Normal inferior vena cava. Normal retroperitoneum. There are a couple of tiny mesenteric nodes with subtle stranding in the fat which may be consistent with mesenteric adenitis Incompletely distended mildly thick-walled bladder likely of no significance. Uterus has been removed surgically. Normal abdominal wall. Normal osseous structures. CT/Abdomen/Pelvis WITH Contrast IMPRESSION: Findings which may be consistent with mild nonspecific mesenteric adenitis. Status post cholecystectomy and hysterectomy. Electronically Signed: Moises Hussein MD at 19:10 EST , Service support ,
[2019-03-28 17:30] LABS: Absolute Lymphocyte Count 1.83 X10^3/uL (0.83-4.51); Absolute Neutrophil Count 4.5 X10^3/uL (2.0-7.7); Basophil# 0.05 X10^3/uL; Basophil% 0.7 % (0-1); Eosinophil# 0.15 X10^3/uL; Eosinophils% 2.1 % (0-5); Hematocrit 39.3 % (37-47); Hemoglobin 12.2 g/dL (12.0-15.0); Lymphocyte # 1.83 X10^3/ul (4.0); Lymphocyte % 25.9 % (19-41); Mean Corpuscular Hgb 26.1 pg (27.0-32.0); Mean Platelet Vol. 10.2 fl (6.2-12.0); Monocyte# 0.45 X10^3/uL; Monocyte% 6.4 % (0-10); NRBC Flagged by Analyzer 0 % (0-5); Neutrophil # 4.54 X10^3/uL (2.7-7.7); Neutrophil % 64.2 % (47-70); Platelet Count 243 K/mm3 (150-450); RBC Distribution Width CV 14.6 % (11.6-14.6); RBC Distribution Width SD 44.4 fl (35.1-43.9); Red Blood Count 4.68 M/mm3 (4.2-5.4); White Blood Count 7.1 K/mm3 (4.4-11.0)
[2019-03-28] MEDS: 0.9% Normal Saline 1,000 ML 1000 ML IV (17:34)
[2019-03-28] MEDS: proMETHazine 25 MG/ML Syringe 6.25 MG IV (17:34)
[2019-03-28] MEDS: Morphine 4 MG/ML Syringe IV (17:35)
[2019-03-28 17:40] LABS: Mucous, Urine 0 SEEN /hpf (<or=2+); Red Blood Cells-Urine 0 SEEN /hpf (0-5); White Blood Cells 0 SEEN /hpf (0-5)
[2019-03-28 17:41] LABS: ALB/GLOB Ratio 0.8 RATIO (0.9-2.4); AST(SGOT) 20 U/L (15-37); Alanine Aminotransfer ALT/SGPT 42 U/L (13-56); Alkaline Phosphatase 126 U/L (45-117); Anion Gap 4 (5-15); BUN 11 mg/dL (7-18); BUN/Creat Ratio 12.4 RATIO (10-20); Calcium,Total 8.6 mg/dL (8.5-10.1); Chloride 106 mmol/L (98-107); Color, Urine Yellow (Yellow); Creatinine, Serum 0.88 mg/dL (0.55-1.02); EST Glomerular Filtration Rate 73 mL/min (>60); Est Glom Filt Rate - Afr Amer 88 mL/min (>60); Estimated Creatinine Clearance 62.51 ml/min; Glucose 106 mg/dL (74-106); Glucose, Dipstick Normal (Normal); Ketone-Dipstick 5 mg/dl (Negative); Leukocyte Esterase-Dipstick Negative /ul (Negative); Lipase 89 U/L (73-393); Nitrite-Dipstick Negative (Negative); Occult Blood-Urine Negative /ul (Negative); Potassium 3.8 mmol/L (3.5-5.1); Protein-Dipstick Negative (Negative); Sodium Level 140 mmol/L (136-145); Urine Bilirubin Dipstick Negative (Negative); Urine Clarity Clear (Clear); Urine Urobilinogen Normal (Normal)
[2019-03-28 17:52] LABS: Bacteria RARE /hpf (None Seen)
[2019-03-28 17:53] LABS: Squamous Epithelial Cells - UA 0-5 SEEN /hpf (5-10)
[2019-03-28 18:25] VITALS: BP 122/73; PULSE 79; RESP 16; O2SAT 100
--- NOTE | 2019-03-28 18:44 | ED.VISSUMM ---
- ER Visit Summary Date of Service: 03/28/19 Chief Complaint: Abdominal pain History of Present Illness: The patient is a 48 F presenting with abdominal pain. Patient states this started on Sunday. She has nausea without vomiting. She has had diarrhea. She denies blood in her stool. She denies urinary complaints. Denies fever. She complains of diffuse abdominal pain. She has tried Zofran at home. Physical Examination: Vitals are stable. Patient is afebrile. Alert no acute distress. HEENT exam is unremarkable. Neck is supple. Lungs are clear and equal bilaterally. Heart is regular rate and rhythm. Abdomen is soft diffuse tenderness with no rebound or guarding Extremities are unremarkable. Skin is warm and dry. No focal neurologic deficit. Remainder of exam is unremarkable. Emergency Department Course and Treatment: Patient was given IV fluids, morphine, Phenergan. CBC, chemistries unremarkable. Liver lipase are normal. Urinalysis unremarkable. CT abdomen pelvis shows findings which may be consistent with mild nonspecific mesenteric adenitis.Status post cholecystectomy and hysterectomy. On reevaluation, patient is resting comfortably. She is given prescription for Bentyl. She will continue Zofran at home. She is advised to follow-up with her primary care physician. Advised return to ED for worsening complaints. Disposition: Discharge home Impression: Abdominal pain, mesenteric adenitis This note was generated with [employer] dictation software. It may contain incorrect words, spelling, and punctuation that were not noted in review of the chart prior to signing ED Disposition - Plan for ED Patient: Instructions: ABDOMINAL PAIN, Unknown Cause, (Female), Adenitis, Mesenteric Prescriptions: Dicyclomine HCl [Bentyl] 20 mg PO TIDAC #20 cap Prescription Printed Referrals: Tang Olguin DO [Primary Care Provider] -
--- NOTE | 2019-03-28 19:39 | ED.DEP ---
ED Disposition - Plan for ED Patient: Instructions: ABDOMINAL PAIN, Unknown Cause, (Female), Adenitis, Mesenteric Prescriptions: Dicyclomine HCl [Bentyl] 20 mg PO TIDAC #20 capsule Referrals: Tang Olguin DO [Primary Care Provider] -
[2019-03-28 20:12] VITALS: BP 109/76; PULSE 81; RESP 16; O2SAT 97
--- NOTE | 2019-03-28 20:19 | ED.RN ---
PT EDUCATED ON WRITTEN AND VERBAL DISCHARGE INSTRUCTIONS. PT EDUCATED ON HOME GOING PRESCRIPTION. PT VERBALIZES UNDERSTANDING AND DENIES ANY FURTHER QUESTIONS. IV D/C AND COVERED WITH 2X2 GAUZE AND PAPER TAPE. PT DRESSES SELF AND AMBULATES OUT OF DEPT WITH SPOUSE.
== END 2019-03-28 20:21 | disposition home or self-care (01) ==
PROVIDERS: Emergency Provider Emergency Medicine; PCP Student in an Organized Health Care Education/Training Program; Referring Provider Student in an Organized Health Care Education/Training Program
DX: I88.0 Nonspecific mesenteric lymphadenitis (principal); I10 Essential (primary) hypertension; Z90.49 Acquired absence of other specified parts of digestive tract; Z90.710 Acquired absence of both cervix and uterus
CPT/HCPCS: 74177; 80053; 81001; 83690; 85025; 99284; J7030; Q9967; A4216

== ENCOUNTER 2019-05-08 11:56 | Observation (INO) | payer MEDICAID, SELFPAY ==
[2019-05-08] VITALS (8 sets, daily range): BP systolic 122–133; BP diastolic 74–84; PULSE 74–104; RESP 16–19; TEMP 36.4–36.8; O2SAT 95–98; BMI 44.4; BMI 43.4; BMI 44.5
--- NOTE | 2019-05-08 12:14 | EKG12_ITS ---
Test Reason : SYNCOPE Blood Pressure : / mmHG Vent. Rate : 075 BPM Atrial Rate : 075 BPM P-R Int : 154 ms QRS Dur : 074 ms QT Int : 390 ms P-R-T Axes : 055 006 025 degrees QTc Int : 435 ms Normal sinus rhythm Normal ECG Confirmed by DANIELLE NAVARRO, [place] ([id number]), school photograph editor DAMARI PACK ([id number]) on 05/12/2019 8:52:38 AM Referred By: MARIUM Confirmed By:DENNIS SANTOS MD
--- NOTE | 2019-05-08 12:15 | CT_ITS ---
STUDY: CTA HEAD AND NECK WITH CONTRAST REASON FOR EXAM: Female, 48 years old. Syncope, headache x 2 days RADIATION DOSAGE (If Supplied By Facility): CTDIvol = ( 28.95 ) mGy, DLP = ( 1588.37 ) mGycm COMPARISON: Previous CT of the head obtained on 08/19/2018 TECHNIQUE: A CTA of the Head and Neck was performed first without than with IV contrast, in the axial plane. Multiplanar CT reconstruction images were performed and later 3D volumetric reconstruction images were obtained This exam was performed according to our departmental dose-optimization program, which includes automated exposure control, adjustment of the mA and/or kV according to patient size and/or use of iterative reconstruction technique. FINDINGS: The pre and post contrast CT images of the head were obtained and reviewed. The anthony, medulla, and cerebellum appear to be normal. The cerebral hemispheres and the ventricles and cerebral sulci are normal. The basal ganglia are normal. No enhancing masses or lesions are seen. Bone scanning windows were reviewed and show the inner and outer tables of the skull to be intact. The frontal, ethmoid, maxillary, and sphenoid sinuses are normal. Post contrast CTA images were then reviewed. Posterior Cerebral Circulation: The V4 segments of the vertebral arteries are normal bilaterally. The basilar artery is normal. The [right and left] anterior inferior cerebellar artery is normal. The anterior superior cerebellar arteries are seen at their origins and are normal. The P1, P2, and P3 segments of the [right and left] posterior cerebral arteries are normal. Anterior Cerebral Circulation: The cavernous and supraclinoid carotid arteries are normal. The A1 segments of the [right and left] anterior cerebral arteries are normal. The anterior communicating artery are normal. The M1 segments of the [right and left] cerebral arteries are normal. The bifurcations of the middle cerebral arteries are normal. Cerebral Venous Circulation: The superior sagital sinus is normal. The inferior sagital sinus is normal. The internal cerebral veins, great vein of [place], straight sinus, and torcula are normal. The transverse sinuses and sigmoid sinuses are normal. The CT scan of the neck, and CTA of the carotid and vertebral arteries was performed. The base of the skull, the mandible and the lung apices are normal. The cervical vertebra are normal and are in good position and alignment. Cervical Soft Tissues. The parotid space, buccal space, heel coverer space, retropharnygeal space, parapharyngeal space, parapharyngeal mucosal space, and visceral space are normal. The carotid space is normal. The thyroid is normal. The thoracic inlet is normal. The supraclavicular space is normal. The nasopharynx and torus tuberous, the oropharynx and epiglottis, and the hypopharynx and aryepiglottic folds are normal. The true vocal cords and false cords are normal. The cervical trachea is normal. CTA images of the neck were reviewed and show a normal branch pattern of the aortic arch with a normal branch pattern. 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 The right subclavian artery is normal. The left common carotid artery is normal at its origin. The left subclavian artery is normal at its origin. On the right side, the right vertebral artery originates from the right subclavian artery. The V1, V2, V3, and V4 segments of the right vertebral artery are normal. The right common carotid artery is smooth. The right carotid bifurcation is normal. The right external carotid artery is normal. The origin of the right internal carotid artery, and the cervical and petrous portions of the right internal carotid artery are normal. On the left side, the left vertebral artery originates from the aortic arch. The V1,V2, V3, and V4 segments of the left vertebral artery are normal. The left common carotid artery is smooth. The left carotid bifurcation is normal. The left external carotid artery is normal. The origins of the left internal carotid artery, and the cervical and petrous portions of the left internal carotid artery are normal. CT/CTA Head AND Neck W/ Contrast IMPRESSION: Normal CTA of the Head Normal CTA of the Cervical Carotid and Vertebral Arteries. No stenosis identified. Electronically Signed: Trevor Og, at 14:19 EST Tel , Service support ,
[2019-05-08 12:33] LABS: Absolute Neutrophil Count 6.5 X10^3/uL (2.0-7.7); Basophil# 0.04 X10^3/uL; Basophil% 0.5 % (0-1); Eosinophil# 0.13 X10^3/uL; Eosinophils% 1.5 % (0-5); Hematocrit 39.8 % (37-47); Hemoglobin 12.8 g/dL (12.0-15.0); Lymphocyte % 17.5 % (19-41); Mean Corp Hgb Conc 32.2 g/dL (32-36); Mean Corpuscular Hgb 26.8 pg (27.0-32.0); Mean Corpuscular Volume 83.4 fL (81-99); Mean Platelet Vol. 9.4 fl (6.2-12.0); Monocyte% 4.7 % (0-10); NRBC Flagged by Analyzer 0 % (0-5); Neutrophil # 6.45 X10^3/uL (2.7-7.7); Neutrophil % 75.3 % (47-70); Platelet Count 289 K/mm3 (150-450); RBC Distribution Width CV 14.5 % (11.6-14.6); RBC Distribution Width SD 43.9 fl (35.1-43.9); Red Blood Count 4.77 M/mm3 (4.2-5.4); White Blood Count 8.6 K/mm3 (4.4-11.0)
[2019-05-08] MEDS: 0.9% Normal Saline 1,000 ML 1000 ML IV (12:36)
[2019-05-08 12:49] LABS: Anion Gap 6 (5-15); BUN 11 mg/dL (7-18); BUN/Creat Ratio 14.3 RATIO (10-20); Chloride 108 mmol/L (98-107); Creatinine, Serum 0.77 mg/dL (0.55-1.02); EST Glomerular Filtration Rate 85 mL/min (>60); Est Glom Filt Rate - Afr Amer 103 mL/min (>60); Estimated Creatinine Clearance 71.44 ml/min; Glucose 91 mg/dL (74-106); Potassium 4.2 mmol/L (3.5-5.1); Sodium Level 140 mmol/L (136-145)
[2019-05-08 12:53] LABS: Erythrocyte Sedimentation Rate 54 mm/hr (0-20)
[2019-05-08 13:34] LABS: D-Dimer Quantitative (DVT/PE) <= 0.27 FEU/ug/m (0.27-0.49)
[2019-05-08] MEDS: predniSONE 20 MG Tablet 60 MG PO (14:16)
[2019-05-08] MEDS: DiphenhydrAMINE 50 MG/ML Syringe 25 MG IV ×2 (14:16→16:08)
[2019-05-08] MEDS: Ketorolac 30 MG/ML Syringe IV (14:17)
[2019-05-08] MEDS: Metoclopramide 10 MG/2 ML Vial IV (14:17)
--- NOTE | 2019-05-08 14:29 | ED.VISSUMM ---
- ER Visit Summary Date of Service: 05/08/19 Chief Complaint: [Syncope and headache] History of Present Illness: The patient is a 48 F [presents to the emergency department complaint of a headache that started 2 days ago. Patient states that kind of came on gradually and progressively worsened. She currently rates it a 9 out of 10. Patient has a friend that staying with her and she came downstairs this morning and the friend states that patient was kind of slurring her words and then passed out. Patient apparently was partially caught by the friend and eased to the floor therefore she did not strike her head. The friend describes some twitching and shaking of the arms and legs and patient was unresponsive for about 5 minutes. She did not lose control of bowel or bladder. Patient has not had symptoms like this before. When asked if she is ever had seizures patient states that when she was up in [place] and admitted she had staring spells. Patient does have history of trigeminal neuralgia. Patient has history of hypertension. Patient's had prior cholecystectomy, hysterectomy, and . Patient denies recent illness otherwise. Does complain of some nausea and some photophobia.] Patient's headache is mostly right side of her head and she rates it a 9 out of 10. Physical Examination: [HEENT-PERRLA, EOMI. Cranial nerves II through XII grossly intact. TMs clear. Mucous membranes moist. No adenopathy. Evaluation of the mouth reveals no evidence of bite wounds to the oral mucosa or the tongue. Patient does have tenderness palpation over the right temporal artery. I cannot palpate any significant induration. Cardiovascular-regular rate and rhythm without murmur or ectopy Lungs-clear to auscultation, chest wall stable without crepitus or subcu emphysema Abdomen-normoactive bowel sounds, soft, nontender, no rebound or rigidity, no peritoneal signs. Neuro xrev-pclonr-xplo and heel alicea testing within normal limits, negative Romberg, negative , Fundi benign Extremities-intact ?4, normal range of motion, normal pulses, atraumatic] Test Results: [EKG obtained arrival shows sinus rhythm with a ventricular rate of 75 bpm with no acute segment changes. CBC with differential was normal. Her sed rate however was quite elevated 54. Chemistries unremarkable. Troponin is less than 0.015. D-dimer was less than 0.27.] CTA of the head and neck normal. Emergency Department Course and Treatment: [Patient had an IV line established. Patient was given a liter normal same fluid bolus. Patient was given Reglan, Benadryl, and Toradol. Patient was given prednisone 60 mg p.o.] Treatment Plan: [Admit for further work-up and evaluation of her syncopal episode as it is unclear if this was syncope versus seizure. Etiology of the headache is unclear although she is responding to current medications. Given the elevated sed rate and the tenderness to the right side of the head concerned about possibility of temporal arteritis.] Disposition: [Admit] Impression: [Syncope Cephalgia] This note was generated with [employer] dictation software. It may contain incorrect words, spelling, and punctuation that were not noted in review of the chart prior to signing ED Disposition - Plan for ED Patient: Referrals: Tang Olguin DO [Primary Care Provider] -
--- NOTE | 2019-05-08 16:06 | HP.PCM_ITS ---
Problem List (1) Acute respiratory failure Status: Resolved (2) Overdose Status: Resolved (3) Depression Status: Chronic Qualifiers: (4) Fibromyalgia Status: Chronic (5) GERD (gastroesophageal reflux disease) Status: Chronic Qualifiers: (6) H/O deep venous thrombosis Status: Chronic (7) Hiatal hernia Status: Chronic (8) Obesity, Class III, BMI 40-49.9 (morbid obesity) Status: Chronic (9) Ovarian cyst Status: Chronic History of Present Illness Date of Admission: 05/08/19 Chief Complaint: Right sided headache. The patient is a 48 year old F who presents emergency room due to intractable headache and possible seizure versus syncope. Patient reports she has had a headache for the past 2 days which initially started as a dull ache in her right religious area and has increased in severity over the past 2 days. She reports her right religious and scalp area is tender to touch. She reports aidan tophobia, nausea without emesis. Denies other neurologic symptoms or focal deficits. Patient reports she lives with her friend who reported that patient was sitting on couch and passed out which was followed by shaking movement. Patient was reported to be unresponsive for approximately 5 minutes. Patient does not recall this incident. The friend is not available during HPI. Patient denies history of seizures. She reports a history of trigeminal neuralgia approximately 10 years ago where she was treated at [facility] and states her current symptoms feel similar to episode 10 years ago. She previously followed with neurology for this, no recent follow-up She denies loss of bowel/bladder function during episode of syncope. Patient's past medical history includes hypertension, hyperlipidemia, depression, GERD, seasonal allergies, fibromyalgia, history of DVT, obesity. Past Medical History Past Medical History (Chronic Problems): Chronic Problems Obesity, Class III, BMI 40-49.9 (morbid obesity) (Chronic) Hiatal hernia (Chronic) GERD (gastroesophageal reflux disease) (Chronic) Ovarian cyst (Chronic) Fibromyalgia (Chronic) Depression (Chronic) H/O deep venous thrombosis (Chronic) Allergies hydromorphone HCl [From Dilaudid] Allergy (Verified 05/08/19 12:01) Chest tightness warfarin sodium [From Coumadin] Allergy (Verified 05/08/19 12:01) Chest tightness milnacipran HCl [From Savella] Adverse Reaction (Verified 05/08/19 12:01) Other pt does not remember pregabalin [From Lyrica] Adverse Reaction (Verified 05/08/19 12:01) Rash rivaroxaban [From Xarelto] Adverse Reaction (Verified 05/08/19 12:01) Nausea Home Medications: Ambulatory Orders Medication Instructions Recorded Duloxetine Hcl [Cymbalta] 60 mg PO QHS 03/02/13 Ropinirole HCl [Requip] 4 mg PO QHS 03/10/14 Omeprazole [Prilosec] 40 mg PO QHS 11/06/14 Valacyclovir HCl [Valtrex] 500 mg PO QHS 12/06/16 Cetirizine HCl [Zyrtec] 10 mg PO QHS 01/22/17 Bupropion HCl [Wellbutrin Xl] 150 mg PO DAILY 05/08/19 Cholecalciferol (Vitamin D3) 2,000 unit PO DAILY 05/08/19 [Vitamin D3] Losartan Potassium [Cozaar] 100 mg PO DAILY 05/08/19 Surgical History: cholecystectomy, - - , foot surgery for plantar fasciitis, breast reduction, uterine ablation,egd,carpal tunnel Psychiatric History: Anxiety, Depression [employer]ATE History: No pertinent [employer] history Lives: - - With friend Smoking Status: Never smoker Tobacco Use: Non-smoker Alcohol: None Drugs: None - *Family History Maternal History Items: Pulmonary Disease, No pertinent history, - - no history of CVD or CVA's, no FH of migraines, Paternal History Items: Pulmonary Disease Sibling History Items: - - sister with fibromyalgia Review of Systems Constitutional: Denies: Chills, Fever, Weight Change Eyes: Reports: - - Photophobia, - - Photophobia HEENT: Reports: Head Aches. Denies: Sinus Congestion, Sinus Drainage Cardiovascular: Denies: Chest Pain, Palpitations Respiratory: Denies: Cough, Shortness of breath at rest, Sputum production Gastrointestinal: Denies: Abdominal Pain, Nausea, Vomiting Genitourinary: Denies: Dysuria Musculoskeletal: Denies: Joint Pain, Joint Tenderness Skin: Denies: Rash, Wounds Neurological: Denies: Numbness, Tingling, Focal weakness Psychiatric: Reports: Anxiety, Depression Hematologic/ Lymphatic: Denies: Easy Bruising, Easy Bleeding VTE Information - Inpt Only VTE Present on Admission: No VTE Mechan Device Prophylaxis: SCD's VTE Pharm Prophylaxis ordered?: Yes - Physical Exam Vitals/I&O's: Vital Signs Temp Pulse Resp BP Pulse Ox 98.3 F 76 16 130/84 H 98 05/08/19 11:56 05/08/19 15:53 05/08/19 15:53 05/08/19 14:20 05/08/19 15:53 Oxygen Delivery Method Room Air Weight: 243 lb 2.718 oz Body Mass Index (BMI) 44.4 Finger Stick Blood Glucose 121 Intake and Output for Last 24 Hours 05/06/19 05/07/19 05/08/19 23:59 23:59 23:59 Intake Total 1000 / 1000 Balance 1000 / 1000 General: Alert, Oriented x3, Cooperative HEENT: Atraumatic, PERRLA, EOMI, Normocephalic Neck: Supple, No JVD, Negative Carotid Bruits Lungs: Clear to auscultation, Normal air movement Cardiovascular: Regular rate, Regular Rhythm, Normal S1, Normal S2, No murmurs Abdomen: Bowel Sounds Present, Soft, Non Tender, Non-Distended Extremities: No clubbing, No cyanosis, No edema, Capillary Refill Less than 3 Seconds Skin: No rashes, No breakdown Musculoskeletal: No Tenderness to Palpation of Joints or Extremities Neurological: Cranial nerves II-XII grossly intact, Neuro grossly intact Psych/Mental Status: Normal Affect, Appropriate Laboratory Results 05/08/19 12:25: WBC 8.6, RBC 4.77, Hgb 12.8, Hct 39.8, MCV 83.4, MCH 26.8 L, MCHC 32.2, RDW Std Deviation 43.9, RDW Coeff of [place] 14.5, Plt Count 289, MPV 9.4, Immature Gran % (Auto) 0.500, Neut % (Auto) 75.3 H, Lymph % (Auto) 17.5 L, Schuyler % (Auto) 4.7, Eos % (Auto) 1.5, Baso % (Auto) 0.5, Absolute Neuts (auto) 6.5, Absolute Lymphs (auto) 1.50, Nucleated RBC % 0, ESR 54 H 05/08/19 12:25: D-Dimer Quant (PE/DVT) <= 0.27 05/08/19 12:25: Sodium 140, Potassium 4.2, Chloride 108 H, Carbon Dioxide 26.0, Anion Gap 6, BUN 11, Creatinine 0.77, Estim Creat Clear Calc 71.44, Est GFR (MDRD) Af Amer 103, Est GFR (MDRD) Non-Af 85, BUN/Creatinine Ratio 14.3, Glucose 91, Calcium 9.0, Troponin I < 0.015 Current Medications Diphenhydramine HCl (Benadryl) 25 mg IV X1 ONE Stop: 05/08/19 16:06 Assessment/Plan All Active Problems Acute respiratory failure (Resolved) Overdose (Resolved) 1. Intractable headache-history of trigeminal neuralgia. Possible migraine versus temporal arteritis. ESR 54, CRP 35. Right-sided headache with tenderness to palpation. MRI of brain with and without contrast. MRA of head with and without contrast. Patient did receive prednisone 60 mg p.o. x1 in ER. Continue prednisone 60 mg daily. Pending imaging, may need biopsy to definitely rule out temporal arteritis. 2. Syncope versus new onset seizure-obtain EEG, echo. Trend enzymes. Repeat EKG in a.m. Monitor telemetry. Orthostatic vitals. Plan for tele-neurology consult in a.m. 3. Hyperlipidemia-previously given Rx for statin, no longer taking. 4. Hypertension-stable, continue home losartan regimen. 5. Depression/anxiety-continue home duloxetine, bupropion regimen. 6. GERD-continue omeprazole regimen. 7. Seasonal allergies-continue Zyrtec. 8. Fibromyalgia-PRN pain regimen. 9. History of DVT-no longer on anticoagulation. 10. Obesity-encouraged diet lifestyle modifications. 11. Restless leg syndrome-continue Requip regimen. DVT prophylaxis-SCDs, Lovenox This patient was seen by LEE Schneider under the supervision of Dr. Sood.
--- NOTE | 2019-05-08 16:33 | MRI_ITS ---
STUDY: MRI BRAIN WITH AND WITHOUT CONTRAST REASON FOR EXAM: Female, 48 years old. MIGRAINE X 2 DAYS, SEIZURE LIKE ACTIVITY THIS AFTERNOON, H/O TRIGEMINAL NEURALGIA TECHNIQUE: Standardized multiplanar fat and water weighted pulse sequences were obtained. DOTAREM IV 20CC was administered for the contrast portion of the examination. COMPARISON: CT brain August 19, 2018 and CTA brain from the 2019. MRI brain November 01, 2013 FINDINGS: Normal size of the ventricles and extra-axial spaces for the patient''s age. Normal white matter tracts of the supratentorial brain. There is no evidence for recent intracranial ischemia or other cause of cytotoxic edema on diffusion weighted imaging (DWI). Normal bilateral basal ganglia. Normal thalami. There is no extra-axial fluid accumulation. Normal flow voids within the major intracranial circulation suggesting patency by spin echo criteria. Normal venous enhancement. There is no enhancing intra-axial or extra-axial abnormality. Normal sella turcica, pituitary gland, infundibular stalk, optic chiasm and hypothalamus. Normal tectal plate and pineal gland. Normal midbrain, anthony and medulla. Normal cerebellum. Normal basal cisterns. Normal bilateral temporal bones. Normal bilateral internal auditory canals. Fluid in right mastoid air cells. No demonstrated orbital abnormality, within the constraints of a routine brain study. Normal visualized paranasal sinuses. Normal calvarium and skull base. Normal visualized soft tissue structures. Normal visualized upper cervical spine. IMPRESSION: Right mastoid effusion. Normal unenhanced and enhanced MRI of the brain. Electronically Signed: Mark Akers MD at 18:37 EST , Service support , MRI/Brain W/WO Contrast
[2019-05-08 17:42] LABS: Thyroid Stim Hormone (TSH) 1.22 uIU/mL (0.358-3.74)
--- NOTE | 2019-05-08 18:29 | ECHOCS_ITS ---
Reason For Study: Syncope Procedure This was a 2D Doppler, Color Flow transthoracic echocardiogram. The study was technically difficult. Contrast injection was performed. Exam performed portable in patient room. Left Ventricle Normal LV size. The estimated ejection fraction is 60 %. No evidence for diastolic dysfunction. No regional wall motion abnormalities noted. Right Ventricle Normal RV size. Normal systolic function. Atria Normal left atrium. Normal right atrium. No doppler evidence for ASD. Mitral Valve There is no mitral valve stenosis. No mitral valve insufficiency. Tricuspid Valve There is no tricuspid stenosis. Trivial tricuspid valve insufficiency. Unable to estimate RV systolic pressure due to insufficient tricuspid regurgitant envelope. Aortic Valve Trisinus/trileaflet aortic valve. There is no aortic stenosis. No aortic valve insufficiency. Pulmonic Valve There is no pulmonic valvular stenosis. No pulmonic valve insufficiency. Great Vessels Normal aortic root. Pericardium/Pleural No pericardial effusion. Medication Diluted definity 2ml given slow IV push to enhance endocardial definition. MMode/2D Measurements & Calculations LVIDd: 3.7 cm IVSd: 1.4 cm Ao root diam: 3.3 cm LVIDs: 2.1 cm LVPWd: 1.0 cm LA dimension: 3.9 cm FS: 43.6 % LAV(MOD-bp): 45.8 ml LA A4 area: 16.3 cm2 RA A4 area: 13.2 cm2 LAV(MOD-bp) Indexed: 22.4 ml/m2 LAV(MOD-sp2): 45.0 ml LAV(MOD-sp4): 45.8 ml Time Measurements MV dec time: 0.18 sec Doppler Measurements & Calculations MV E max horacio: 110.9 cm/sec Lat Peak E' Horacio: 13.3 cm/sec Med Peak E' Horacio: 8.9 cm/sec MV A max horacio: 80.3 cm/sec E/E' lat: 8.3 E/E' med: 12.5 MV E/A: 1.4 MV V2 max: 123.3 cm/sec MV P1/2t max horacio: 124.2 cm/sec Ao V2 max: 136.8 cm/sec MV max P.1 mmHg MV P1/2t: 68.1 msec Ao max P.5 mmHg MV V2 mean: 68.5 cm/sec MV dec slope: 534.0 cm/sec2 MV mean P.2 mmHg MV V2 VTI: 29.5 cm MVA(P1/2t): 3.2 cm2 LV V1 max: 111.0 cm/sec PA V2 max: 104.0 cm/sec TR max horacio: 230.6 cm/sec LV V1 max P.9 mmHg TR max P.3 mmHg Interpretation Summary The estimated ejection fraction is 60 %. No evidence for diastolic dysfunction. The study was technically difficult. Contrast injection was performed. Ordering Physician: Jessi John Referring Physician: Tang Varma Performed By: Shawn Nicholson RCS
[2019-05-08] MEDS: Pramipexole Di-HCl 0.5 MG Tablet 1.5 MG PO (18:43)
[2019-05-08] MEDS: levETIRAcetam IV 1,000 MG/100 ML BAG 400 MG IV (18:43)
[2019-05-08 19:15] LABS: Amphetamine Urine VISTA NEGATIVE (<1000 ng/mL); Barbiturate Urine VISTA NEGATIVE (< 200 ng/mL); Benzodiazepine Urine VISTA NEGATIVE (< 200 ng/mL); Cocaine Urine VISTA NEGATIVE (< 300 ng/mL); Ecstacy Urine VISTA POSITIVE (< 500 ng/mL); Methadone Urine VISTA NEGATIVE (< 300 ng/mL); PCP Urine VISTA NEGATIVE (< 25 ng/mL); THC Urine VISTA NEGATIVE (< 50 ng/mL); Vista UDS pH Range 6
[2019-05-08] MEDS: oxyCODONE 5 MG Tablet PO (20:20)
[2019-05-08] MEDS: DULoxetine Hcl 60 MG Capsule PO (21:22)
[2019-05-08] MEDS: Loratadine 10 MG Tablet PO (21:22)
[2019-05-08] MEDS: Pantoprazole Sodium 40 MG Tablet PO (21:22)
[2019-05-09] VITALS (7 sets, daily range): BP systolic 100–132; BP diastolic 49–79; PULSE 73–97; RESP 16; TEMP 36.5–36.7; O2SAT 96–97
--- NOTE | 2019-05-09 05:55 | EKG12_ITS ---
Test Reason : AM EKG Blood Pressure : / mmHG Vent. Rate : 065 BPM Atrial Rate : 065 BPM P-R Int : 148 ms QRS Dur : 074 ms QT Int : 406 ms P-R-T Axes : 045 004 024 degrees QTc Int : 422 ms Normal sinus rhythm Normal ECG Confirmed by PAM NAVARRO, JULIANA ([id number]), electronic news gathering editor LORIE SULLIVAN ([id number]) on 05/14/2019 2:06:59 PM Referred By: DR CHEN Confirmed By:JULIANA OROZCO MD
[2019-05-09] MEDS: Enoxaparin 40 MG/0.4 ML Syringe SC (06:19)
[2019-05-09] MEDS: Losartan Potassium 100 MG Tablet PO (09:13)
[2019-05-09] MEDS: predniSONE 20 MG Tablet 60 MG PO (09:13)
[2019-05-09] MEDS: buPROPion (XL) 150 MG TABLET.XL PO (09:14)
[2019-05-09] MEDS: Ibuprofen 400 MG Tablet PO (09:22)
[2019-05-09] MEDS: 0.9% Saline Lock 10 ML Syringe IV (09:22)
--- NOTE | 2019-05-09 11:55 | DCINST_ITS ---
You will use the following diet at home:: Calorie/Carbohydrate Controlled (specify 1200, 1400, etc) Discharge Activity: Return to Normal Activity, May Not Drive - until follow up with neurology Call your doctor if you observe: Shortness of breath, Dizziness, Fainting spells, Chest pain Allergies/Adverse Reactions: Allergies hydromorphone HCl [From Dilaudid] Allergy (Verified 05/08/19 12:01) Chest tightness warfarin sodium [From Coumadin] Allergy (Verified 05/08/19 12:01) Chest tightness milnacipran HCl [From Savella] Adverse Reaction (Verified 05/08/19 12:01) Other pt does not remember pregabalin [From Lyrica] Adverse Reaction (Verified 05/08/19 12:01) Rash rivaroxaban [From Xarelto] Adverse Reaction (Verified 05/08/19 12:01) Nausea Medications to take at Discharge Duloxetine Hcl [Cymbalta] 60 mg PO QHS 03/02/13 Ropinirole HCl [Requip] 4 mg PO QHS 03/10/14 Omeprazole [Prilosec] 40 mg PO QHS 11/06/14 Valacyclovir HCl [Valtrex] 500 mg PO QHS 12/06/16 Cetirizine HCl [Zyrtec] 10 mg PO QHS 01/22/17 Bupropion HCl [Wellbutrin Xl] 150 mg PO DAILY 05/08/19 Cholecalciferol (Vitamin D3) [Vitamin D3] 2,000 unit PO DAILY 05/08/19 Losartan Potassium [Cozaar] 100 mg PO DAILY 05/08/19 Levetiracetam [Keppra] 500 mg PO BID #60 tab 05/09/19 Prednisone 60 mg PO DAILY #42 tab 05/09/19 The following prescriptions were given: Levetiracetam [Keppra] 500 mg PO BID #60 tab Transmission Status: Received by [id number] Prednisone 60 mg PO DAILY #42 tab Transmission Status: Received by [id number] Primary Care Physician: Tang Olguin DO [Primary Care Provider] - Please follow up with your Primary Care Physician in: 1 Week Test Results: Test results from this visit will be discussed in further detail at your follow- up appointment, if applicable. Please Follow Up With: Dr. Ruiz - Neurology When: Call sunday for [facility] appt Proposed Discharge Date: 05/09/19
--- NOTE | 2019-05-09 12:46 | PHA.DC.MR ---
Pharmacy Service has performed discharge medication reconciliation for this patient. The patient's discharge medication list was reviewed for discrepancies and discrepancies were resolved. Home Medications Duloxetine Hcl [Cymbalta] 60 mg PO QHS 03/02/13 Ropinirole HCl [Requip] 4 mg PO QHS 03/10/14 Omeprazole [Prilosec] 40 mg PO QHS 11/06/14 Valacyclovir HCl [Valtrex] 500 mg PO QHS 12/06/16 Cetirizine HCl [Zyrtec] 10 mg PO QHS 01/22/17 Bupropion HCl [Wellbutrin Xl] 150 mg PO DAILY 05/08/19 Cholecalciferol (Vitamin D3) [Vitamin D3] 2,000 unit PO DAILY 05/08/19 Losartan Potassium [Cozaar] 100 mg PO DAILY 05/08/19
[2019-05-09] MEDS: Acyclovir 200 MG Capsule 400 MG PO (12:55)
--- NOTE | 2019-05-09 15:51 | PCM.DC.SUM ---
<Jessi John - Last Filed: 05/09/19 17:36> Discharge Date and Diagnosis Date of Admission: 05/08/19 Date of Discharge: 05/09/19 - Primary Discharge Diagnosis 1. Intractable headache-history of trigeminal neuralgia. Possible migraine versus temporal arteritis. 2. Syncope versus new onset seizure 3. Hyperlipidemia 4. Hypertension 5. Depression/anxiety 6. GERD 7. Seasonal allergies 8. Fibromyalgia 9. History of DVT 10. Obesity 11. Restless leg syndrome - Secondary Discharge Diagnosis Chronic Problems Obesity, Class III, BMI 40-49.9 (morbid obesity) (Chronic) Hiatal hernia (Chronic) GERD (gastroesophageal reflux disease) (Chronic) Ovarian cyst (Chronic) Fibromyalgia (Chronic) Depression (Chronic) H/O deep venous thrombosis (Chronic) Hospital Course and Treatment Imaging Results: Diagnostic Data Diagnostic Data Head/Neck CTA 05/08/19 12:15 IMPRESSION: Normal CTA of the Head Normal CTA of the Cervical Carotid and Vertebral Arteries. No stenosis identified. Electronically Signed: Trevor Earle at 14:19 EST Tel , Service support , Brain MRI 05/08/19 16:33 [facility] neurology Operations: None Procedures: 2-D Echocardiogram Summary of Care Provided: The patient is a 48 year old F admitted 05/08/2019 due to right-sided headache. 1. Intractable headache-history of trigeminal neuralgia. Possible migraine versus temporal arteritis. ESR 54, CRP 35. Right-sided headache with tenderness to palpation. MRI of brain normal. CTA of head and neck unremarkable. Initiated on prednisone 60 mg daily which patient will continue at discharge until further neurology follow-up. May need biopsy to definitively rule out temporal arteritis. Patient has followed with [facility] neurology in the past, recommend follow-up with Dr. Ruiz next week for further evaluation. Follow-up with primary care provider in 3 to 5 days as well. Spoke with Dr. Villa who is willing to assist with temporal biopsy if neurology during in fact feels this is strongly indicated. [facility] neurology documented low suspicion for temporal arteritis given patient's age and history. Will await outpatient follow up. 2. Syncope versus new onset seizure-EEG completed, report pending. Orthostatic vitals negative. Echocardiogram demonstrated an EF of 60%. Initiated on Keppra 500 mg twice daily which patient will continue at discharge with further outpatient follow-up with neurology as noted above. No driving until follow-up with neurology. 3. Hyperlipidemia-previously given Rx for statin, no longer taking. 4. Hypertension-stable, continue home losartan regimen. 5. Depression/anxiety-continue home duloxetine, bupropion regimen. 6. GERD-continue omeprazole regimen. 7. Seasonal allergies-continue Zyrtec. 8. Fibromyalgia-PRN pain regimen. 9. History of DVT-no longer on anticoagulation. 10. Obesity-encouraged diet lifestyle modifications. 11. Restless leg syndrome-continue Requip regimen. General: Alert, Oriented x3, Cooperative HEENT: Atraumatic, PERRLA, EOMI, Normocephalic Neck: Supple, No JVD, Negative Carotid Bruits Lungs: Clear to auscultation, Normal air movement Cardiovascular: Regular rate, Regular Rhythm, Normal S1, Normal S2, No murmurs Abdomen: Bowel Sounds Present, Soft, Non Tender, Non-Distended Extremities: No clubbing, No cyanosis, No edema, Capillary Refill Less than 3 Seconds Skin: No rashes, No breakdown Musculoskeletal: No Tenderness to Palpation of Joints or Extremities Neurological: Cranial nerves II-XII grossly intact, Neuro grossly intact Psych/Mental Status: Normal Affect, Appropriate Patient seen and examined prior to discharge. Physical assessment as noted above. Patient is stable for discharge with follow up recommendations as noted above. This patient was seen by LEE Schneider under the supervision of Dr. Lo. - Physical Exam Vitals/I&O's: Vital Signs Temp Pulse Resp BP Pulse Ox 97.7 F L 90 16 119/76 96 05/09/19 09:15 05/09/19 09:15 05/09/19 09:15 05/09/19 09:15 05/09/19 09:15 Oxygen Delivery Method Room Air Weight: 237 lb 3.478 oz Body Mass Index (BMI) 43.4 Finger Stick Blood Glucose 121 Orthostatic Vital Signs Start: 05/09/19 09:06 Freq: q24h Status: Active Protocol: Activity Type Activity Date Activity User E-Sign Co-Sign Detail Recorded Client Recorded Date Recorded By Document 05/09/19 09:13 AMG [id number] 05/09/19 09:13 AMG 02/28/20 09:13 Orthostatic Vitals Standing -Blood Pressure (90/60-120/80) 132/79 H -Extremity Use Right Arm -Pulse Rate (60-100) 90 Sitting -Blood Pressure (90/60-120/80) 119/76 -Extremity Use Right Arm -Pulse Rate (60-100) 90 Lying -Blood Pressure (90/60-120/80) 110/63 -Extremity Use Right Arm -Pulse Rate (60-100) 80 Intake and Output for Last 24 Hours 05/07/19 05/08/19 05/09/19 23:59 23:59 23:59 Intake Total 1700 / 1700 585 / 585 Balance 1700 / 1700 585 / 585 Laboratory Results 05/08/19 12:25: Magnesium 2.0, C-React Prot Ext Range 35.70 H, TSH 1.22 05/08/19 17:05: Urine Opiates Screen NEGATIVE, Urine Methadone Screen NEGATIVE, Ur Barbiturates Screen NEGATIVE, Ur Phencyclidine Scrn NEGATIVE, Ur Amphetamines Screen NEGATIVE, U Methamphetamin-MDMA POSITIVE H, U Benzodiazepines Scrn NEGATIVE, Urine Cocaine Screen NEGATIVE, U Cannabinoids Screen NEGATIVE, Ur Drug Screen Comment 05/08/19 18:55: Troponin I < 0.015 05/08/19 21:41: Troponin I < 0.015 05/09/19 00:45: Troponin I < 0.015 Current Medications Acetaminophen (Tylenol) 650 mg PO Q6H PRN PRN PRN Reason: Pain Score 1-10/Temp > 100.7 F Acyclovir (Zovirax) 400 mg PO BID [facility] Last Admin: 05/09/19 12:55 Dose: 400 mg Documented by: Bupropion HCl (Wellbutrin Xl) 150 mg PO DAILY [facility] Last Admin: 05/09/19 09:14 Dose: 150 mg Documented by: Cholecalciferol (Vitamin D (25mcg)) 2,000 unit PO DAILY [facility] Last Admin: 05/09/19 09:13 Dose: 2,000 unit Documented by: Duloxetine HCl (Cymbalta) 60 mg PO QHS [facility] Last Admin: 05/08/19 21:22 Dose: 60 mg Documented by: Enoxaparin Sodium (Lovenox) 40 mg SC DAILY@0600 [facility] Last Admin: 05/09/19 06:19 Dose: 40 mg Documented by: Glucagon () 1 mg IM .X1 PRN PRN Reason: Hypoglycemia Levetiracetam 500 mg/ Sodium (Chloride) 105 mls @ 400 mls/hr IV Q12 [facility] Last Infusion: 05/09/19 09:30 Dose: Infused Documented by: Sodium Chloride () 250 mls @ 15 mls/hr IV .[id number] PRN PRN Reason: Saline Flush Sodium Chloride () 250 mls @ 15 mls/hr IV .[id number] PRN PRN Reason: Additional IVPB Infusion Dextrose (Dextrose 10%-Water) 250 mls @ 999 mls/hr IV .Q16M PRN; Protocol PRN Reason: HYPOGLYCEMIA Ibuprofen (Motrin) 400 mg PO Q4H PRN PRN PRN Reason: Pain Score 1-10/Temp > 100.7 F Last Admin: 05/09/19 09:22 Dose: 400 mg Documented by: Loratadine (Claritin) 10 mg PO QHS [facility] Last Admin: 05/08/19 21:22 Dose: 10 mg Documented by: Losartan Potassium (Cozaar) 100 mg PO DAILY [facility] Last Admin: 05/09/19 09:13 Dose: 100 mg Documented by: Melatonin (Melatonin) 3 mg PO QHS PRN PRN PRN Reason: INSOMNIA Nutritional Formula (Lactose Free) (Ensure Enlive) 120 ml PO 4X/DAY [facility] Last Admin: 05/09/19 13:38 Dose: Not Given Documented by: Ondansetron HCl (Zofran) 4 mg IV Q8H PRN PRN PRN Reason: NAUSEA/VOMITING Oxycodone HCl (Oxyir) 5 mg PO Q4H PRN PRN PRN Reason: Pain Score 4-5/10 Last Admin: 05/08/19 20:20 Dose: 5 mg Documented by: Pantoprazole Sodium (Protonix) 40 mg PO QHS [facility] Last Admin: 05/08/19 21:22 Dose: 40 mg Documented by: Pramipexole Dihydrochloride (Mirapex) 1.5 mg PO QHS [facility] Last Admin: 05/08/19 18:43 Dose: 1.5 mg Documented by: Prednisone () 60 mg PO DAILY@0800 [facility] Last Admin: 05/09/19 09:13 Dose: 60 mg Documented by: Sodium Chloride () 10 - 40 ml IV UD PRN PRN Reason: SALINE FLUSH Last Admin: 05/09/19 09:22 Dose: 10 ml Documented by: Discharge Diet: No Restrictions Discharge Activity: Return to Normal Activity, May Not Drive - until follow up with neurology Call your doctor if you observe: Shortness of breath, Dizziness, Fainting spells, Chest pain Home Medications: Medications to take at Discharge Duloxetine Hcl [Cymbalta] 60 mg PO QHS 03/02/13 Ropinirole HCl [Requip] 4 mg PO QHS 03/10/14 Omeprazole [Prilosec] 40 mg PO QHS 11/06/14 Valacyclovir HCl [Valtrex] 500 mg PO QHS 12/06/16 Cetirizine HCl [Zyrtec] 10 mg PO QHS 01/22/17 Bupropion HCl [Wellbutrin Xl] 150 mg PO DAILY 05/08/19 Cholecalciferol (Vitamin D3) [Vitamin D3] 2,000 unit PO DAILY 05/08/19 Losartan Potassium [Cozaar] 100 mg PO DAILY 05/08/19 Levetiracetam [Keppra] 500 mg PO BID #60 tab 05/09/19 Prednisone 60 mg PO DAILY #42 tab 05/09/19 Following Prescrptions Were Given to Patient: Levetiracetam [Keppra] 500 mg PO BID #60 tab [facility] Prednisone 60 mg PO DAILY #42 tab [facility]: [facility] Primary Care Physician: Tang Olguin DO [Primary Care Provider] - Please follow up with your Primary Care Physician in: 1 Week Please Follow Up With: Dr. Ruiz - Neurology When: Call sunday for [facility] appt Disposition: Home Minutes spent on discharge:: 35 Patient Condition:: Stable Medical Necessity - Tobacco Use Smoking Status: Never smoker Tobacco Use: Non-smoker Meaningful Use Info Meaningful Use Diagnoses (Choose all that apply): None applicable <Boo Lo - Last Filed: 05/10/19 07:26> Discharge Date and Diagnosis - Secondary Discharge Diagnosis Chronic Problems Obesity, Class III, BMI 40-49.9 (morbid obesity) (Chronic) Hiatal hernia (Chronic) GERD (gastroesophageal reflux disease) (Chronic) Ovarian cyst (Chronic) Fibromyalgia (Chronic) Depression (Chronic) H/O deep venous thrombosis (Chronic) Hospital Course and Treatment Summary of Care Provided: This patient was seen in conjunction with LEE Schneider . I have independently interviewed and examined the patient and reviewed pertinent historical, laboratory, and other data. Please refer to LEE Schneider note for details of this patient's presentation, findings, and recommendations. I have reviewed LEE Schneider note and concur with documented findings. In brief, Patient is a 48-year-old lady with history of neuralgia admitted with intractable headache. Admitted to monitored bed for subsequent management Hospital course: As documented above. - Physical Exam Vitals/I&O's: Vital Signs Temp Pulse Resp BP Pulse Ox 98.0 F 97 16 105/69 96 05/09/19 15:15 05/09/19 15:56 05/09/19 15:15 05/09/19 15:15 05/09/19 15:15 Oxygen Delivery Method Room Air Weight: 107.6 kg Body Mass Index (BMI) 43.4 Finger Stick Blood Glucose 121 Orthostatic Vital Signs Start: 05/09/19 09:06 Freq: q24h Status: Active Protocol: Activity Type Activity Date Activity User E-Sign Co-Sign Detail Recorded Client Recorded Date Recorded By Document 05/09/19 09:13 AMG [id number] 05/09/19 09:13 AMG 05/09/19 09:13 Orthostatic Vitals Standing -Blood Pressure (90/60-120/80) 132/79 H -Extremity Use Right Arm -Pulse Rate (60-100) 90 Sitting -Blood Pressure (90/60-120/80) 119/76 -Extremity Use Right Arm -Pulse Rate (60-100) 90 Lying -Blood Pressure (90/60-120/80) 110/63 -Extremity Use Right Arm -Pulse Rate (60-100) 80 Intake and Output for Last 24 Hours 05/08/19 05/09/19 05/10/19 23:59 23:59 23:59 Intake Total 1700 / 1700 585 / 585 Balance 1700 / 1700 585 / 585 Code Visit OBSV E&M: [id number] Observation care discharge
== END 2019-05-09 11:55 | disposition home or self-care (01) ==
LOC: ED 12:24 → PCU 16:18
PROVIDERS: Nurse Practitioner Family; Admitting Provider Family Medicine; Emergency Provider Emergency Medicine; PCP Student in an Organized Health Care Education/Training Program; Visit Provider Internal Medicine
DX: R55 Syncope and collapse (principal); R51 Headache; E78.5 Hyperlipidemia, unspecified; I10 Essential (primary) hypertension; F41.9 Anxiety disorder, unspecified; F32.9 Major depressive disorder, single episode, unspecified; R47.81 Slurred speech; E66.01 Morbid (severe) obesity due to excess calories; K21.9 Gastro-esophageal reflux disease without esophagitis; M79.7 Fibromyalgia; G93.40 Encephalopathy, unspecified; G25.81 Restless legs syndrome; Z79.899 Other long term (current) drug therapy; Z86.69 Personal history of other diseases of the nervous system and sense organs; Z68.41 Body mass index [BMI] 40.0-44.9, adult; Z86.718 Personal history of other venous thrombosis and embolism
CPT/HCPCS: 36415; 70496; 70498; 70553; 80048; 80307; 83735; 84443; 84484; 85025; 85379; 85652; 86140; 93005; 93306; 95819; 96361; 96365; 96366; 96372; 96375; 96376; 99218; 99285; A9575; J7030; Q9957; Q9967; A4216; C8929; G0378

== ENCOUNTER 2019-05-20 15:03 | Emergency (ER) | payer MEDICAID, SELFPAY ==
[2019-05-08 16:43] VITALS: BMI 43.4
[2019-05-20 15:05] VITALS: BP 133/97; PULSE 86; RESP 17; TEMP 36.2; O2SAT 96; BMI 43.4
--- NOTE | 2019-05-20 15:27 | ED.RN ---
PT REPORTS SHE FEELS HER SYMPTOMS ARE RESOLVING, AND SHE IS GOING TO LEAVE BECAUSE IT IS BUSY.
== END 2019-05-20 15:56 ==
LOC: ED 15:43
PROVIDERS: Emergency Provider Emergency Medicine; PCP Student in an Organized Health Care Education/Training Program
DX: I10 Essential (primary) hypertension (principal)

== ENCOUNTER 2019-06-25 10:01 | Emergency (ER) | payer MEDICAID, SELFPAY ==
[2019-06-25 10:03] VITALS: BP 154/95; PULSE 103; RESP 17; TEMP 36.6; O2SAT 97; BMI 45.1
--- NOTE | 2019-06-25 10:17 | CT_ITS ---
STUDY: CT ABDOMEN AND PELVIS WITH CONTRAST REASON FOR EXAM: Female, 49 years old. ABD PAIN, NAUSEA, DIARRHEA, COUGH. PRIOR Uterus, appendix, TUBAL LIGATION RADIATION DOSAGE (If Supplied By Facility): CTDIvol = ( 15.38 ) mGy, DLP = ( 1256.61 ) mGycm TECHNIQUE: Transaxial images were obtained from the dome of the diaphragm to the symphysis pubis with oral contrast. Oral and amp;amp; IV Gastrografin and amp;amp; 100mL Isovue-370 was administered. Sagittal and coronal images were reconstructed. Individualized dose optimization techniques were used for this CT. COMPARISON: Comparison is made with prior examination dated March 28, 2019. FINDINGS: The visualized lung bases are unremarkable. The visualized portions of the heart are within normal limits. Normal liver. The patient is status post cholecystectomy. Normal spleen. Normal pancreas. Normal bilateral adrenal glands. Normal right kidney. Normal left kidney. There is a small hiatal hernia. Normal small intestine. Normal colon. There is non-visualization of the appendix. Normal abdominal aorta. Normal inferior vena cava. There is borderline retroperitoneal lymphadenopathy with enlarged nodes no greater than 10mm in the short axis diameter. Normal urinary bladder. There is a 2.8 cm x 2 cm cyst in the right ovary. A dominant follicle in the left ovary measuring 1.8 cm x 1.4 cm is seen. The patient is status post hysterectomy. Small benign-appearing bilateral inguinal lymph nodes. There are mild degenerative changes of the visualized lumbar spine. CT/Abdomen/Pelvis WITH Contrast IMPRESSION: Small cyst in the right ovary. Dominant follicle in the left ovary. Electronically Signed: Colby Cruz, at 12:41 EDT , Service support ,
--- NOTE | 2019-06-25 10:18 | ED.VIS.GEN ---
History of Present Illness Chief Complaint: Abd Pain Informant: Patient Onset: Days Context: Gradual Onset Current Severity: Moderate Maximum Severity: Moderate Narrative: Patient presents secondary to upper abdominal pain. Symptoms started 3 days ago. She is had nausea but no vomiting. She also reports diarrhea. She does report having a cough for the past couple weeks. T-max is been 100.8. She has had prior cholecystectomy and hysterectomy. She was trying Gas-X and Pepto-Bismol without improvement of her symptoms. She does report having a recent upper scope. She states she had some stomach irritation but no ulcers. Biopsies were unremarkable. - Past Medical History (1) Depression Status: Chronic (2) Fibromyalgia Status: Chronic (3) GERD (gastroesophageal reflux disease) Status: Chronic (4) H/O deep venous thrombosis Status: Chronic (5) Hiatal hernia Status: Chronic (6) Obesity, Class III, BMI 40-49.9 (morbid obesity) Status: Chronic Past Medical History - Allergies and Home Meds Allergies/Adverse Reactions: Allergies hydromorphone HCl [From Dilaudid] Allergy (Verified 06/25/19 10:03) Chest tightness warfarin sodium [From Coumadin] Allergy (Verified 06/25/19 10:03) Chest tightness milnacipran HCl [From Savella] Adverse Reaction (Verified 06/25/19 10:03) Other pt does not remember pregabalin [From Lyrica] Adverse Reaction (Verified 06/25/19 10:03) Rash rivaroxaban [From Xarelto] Adverse Reaction (Verified 06/25/19 10:03) Nausea Primary Care Physician: Tang Olguin DO [Primary Care Provider] - Doctors: Dr. Bobo Surgical History: cholecystectomy, - - , foot surgery for plantar fasciitis, breast reduction, uterine ablation,egd,carpal tunnel Smoking Status: Unknown if ever smoked - Family History Maternal Family History: Reports: Pulmonary Disease, No pertinent history, - - no history of CVD or CVA's, no FH of migraines, Paternal Family History: Reports: Pulmonary Disease Sibling Family History: Reports: - - sister with fibromyalgia Review of Systems General: Reports: Fever - T-max equals 100.8 Eyes: Denies: Visual changes - bilaterally ENT: Denies: Bilateral ear pain Cardiovascular: Denies: Chest pain Respiratory: Reports: Cough. Denies: Dyspnea, Sputum Gastrointestinal: Reports: Abdominal pain, Nausea, Diarrhea. Denies: Vomiting Genitourinary: Denies: Dysuria Musculoskeletal: Denies: Swelling, Extremity Pain Skin: Denies: Rash Neurological: Denies: Headache Hematologic: Denies: Easy bruising Allergy: Denies: Uticaria Physical Exam Vital Signs/Narrative: Vital Signs Temp Pulse Resp BP Pulse Ox 06/25/19 10:03 97.8 F 103 H 17 154/95 H 97 Inital Vital Signs reviewed: Yes General: Well nourished, Well developed Head: Normocephalic ENT: Moist mucous membranes Neck: Supple Cardiovascular: Regular rate, Regular rhythm Respiratory: No distress Abdomen: Soft, Normal bowel sounds, Tender - Upper abdominal tenderness to palpation.. Negative for: Guarding, Rebound tenderness Back: Nontender Extremities: Nontender Skin: Normal color Neurological: Alert, Oriented x3 Psychological: Normal affect Diagnostic/Tx/Re-eval Impressions Abdomen/Pelvis CT 06/25/19 10:17 IMPRESSION: Small cyst in the right ovary. Dominant follicle in the left ovary. Electronically Signed: Colby Cruz, at 12:41 EDT , Service support , Chest X-Ray 06/25/19 12:22 IMPRESSION: Normal x-ray examination of the chest. Electronically Signed: Colby Cruz, at 12:37 EDT , Service support , 06/25/19 10:17 Abdomen/Pelvis WITH Contrast [CT] Stat 06/25/19 12:22 Chest 1 View (Portable) [RAD] Stat Laboratory Results 06/25/19 06/25/19 11:00 11:00 WBC 8.2 RBC 4.59 Hgb 12.8 Hct 39.4 MCV 85.8 MCH 27.9 MCHC 32.5 RDW Std Deviation 45.6 H RDW Coeff of [place] 14.8 H Plt Count 249 MPV 10.7 Immature Gran % (Auto) 0.500 Neut % (Auto) 74.4 H Lymph % (Auto) 17.9 L [place] % (Auto) 5.5 Eos % (Auto) 1.2 Baso % (Auto) 0.5 Absolute Neuts (auto) 6.1 Absolute Lymphs (auto) 1.47 Nucleated RBC % 0 Sodium 138 Potassium 4.2 Chloride 106 Carbon Dioxide 28.0 Anion Gap 4 L BUN 8 Creatinine 0.84 Estim Creat Clear Calc 64.78 Est GFR (MDRD) Af Amer 93 Est GFR (MDRD) Non-Af 77 BUN/Creatinine Ratio 9.5 L Glucose 113 H Calcium 8.4 L Total Bilirubin 0.30 Direct Bilirubin 0.08 AST 26 ALT 28 Alkaline Phosphatase 125 H Total Protein 6.9 Albumin 2.8 L Globulin 4.1 Lipase 89 - Medical Decision Making Patient was given morphine, Zofran, IV fluids. Test results are discussed with her. No significant findings are noted on her CT to explain her upper abdominal pain. She will continue her Prilosec. She will be written for [place] and Bentyl. She has had both of these medications in the past without difficulty. She is given return instructions and will follow up with her primary care physician. ED Disposition - Plan for ED Patient: Disposition: Home or Assisted Living Diagnosis: Abdominal pain Instructions: ED Abdominal Pain Unkn Cause Fem Prescriptions: Dicyclomine HCl [Bentyl] 20 mg PO TIDAC #20 cap Transmission Status: Pending to [facility] Hydrocodone Bitart/Apap 5-325 [[place] 5MG-325MG] 1 tablet PO Q6H PRN PRN 3 Days #10 tablet PRN Reason: Pain Transmission Status: Sent to [facility] Ondansetron [Zofran Odt] 4 mg PO Q8H PRN PRN #10 tab PRN Reason: Nausea Transmission Status: Pending to [facility] Referrals: Tang Olguin DO [Primary Care Provider] - 1 Week
[2019-06-25 10:36] VITALS: BP 154/95; PULSE 103; RESP 18; TEMP 36.6
[2019-06-25] MEDS: Ondansetron 4 MG/2 ML Vial IV (10:47)
[2019-06-25] MEDS: Morphine 4 MG/ML Syringe IV ×2 (10:47→13:06)
[2019-06-25] MEDS: 0.9% Normal Saline 1,000 ML 150 ML IV (10:47)
[2019-06-25 11:06] LABS: Absolute Lymphocyte Count 1.47 X10^3/uL (0.83-4.51); Absolute Neutrophil Count 6.1 X10^3/uL (2.0-7.7); Basophil# 0.04 X10^3/uL; Basophil% 0.5 % (0-1); Eosinophils% 1.2 % (0-5); Hematocrit 39.4 % (37-47); Hemoglobin 12.8 g/dL (12.0-15.0); Lymphocyte # 1.47 X10^3/ul (4.0); Lymphocyte % 17.9 % (19-41); Mean Corp Hgb Conc 32.5 g/dL (32-36); Mean Corpuscular Hgb 27.9 pg (27.0-32.0); Mean Corpuscular Volume 85.8 fL (81-99); Mean Platelet Vol. 10.7 fl (6.2-12.0); Monocyte# 0.45 X10^3/uL; Monocyte% 5.5 % (0-10); NRBC Flagged by Analyzer 0 % (0-5); Neutrophil # 6.13 X10^3/uL (2.7-7.7); Neutrophil % 74.4 % (47-70); Platelet Count 249 K/mm3 (150-450); RBC Distribution Width CV 14.8 % (11.6-14.6); RBC Distribution Width SD 45.6 fl (35.1-43.9); Red Blood Count 4.59 M/mm3 (4.2-5.4); White Blood Count 8.2 K/mm3 (4.4-11.0)
[2019-06-25 11:24] LABS: AST(SGOT) 26 U/L (15-37); Alanine Aminotransfer ALT/SGPT 28 U/L (13-56); Albumin, Serum 2.8 g/dL (3.2-5.0); Alkaline Phosphatase 125 U/L (45-117); Anion Gap 4 (5-15); BUN 8 mg/dL (7-18); BUN/Creat Ratio 9.5 RATIO (10-20); Bilirubin, Direct 0.08 mg/dL (0.00-0.30); Calcium,Total 8.4 mg/dL (8.5-10.1); Chloride 106 mmol/L (98-107); Creatinine, Serum 0.84 mg/dL (0.55-1.02); EST Glomerular Filtration Rate 77 mL/min (>60); Est Glom Filt Rate - Afr Amer 93 mL/min (>60); Estimated Creatinine Clearance 64.78 ml/min; Globulin 4.1 g/dL (2.2-4.2); Glucose 113 mg/dL (74-106); Lipase 89 U/L (73-393); Potassium 4.2 mmol/L (3.5-5.1); Protein, Total 6.9 g/dL (6.4-8.2); Sodium Level 138 mmol/L (136-145)
--- NOTE | 2019-06-25 12:22 | RAD_ITS ---
STUDY: X-RAY CHEST REASON FOR EXAM: Female, 49 years old. Cough, abdomen pain TECHNIQUE: Single AP portable view of the chest. COMPARISON: Comparison is made with prior study dated February 25, 2019. FINDINGS: EKG electrodes are seen. The lungs are clear and expanded. There is no demonstrated pleural abnormality. Normal size heart. Normal mediastinum and sagar. Normal visualized pulmonary arteries. Normal visualized aortic arch and descending thoracic aorta. Normal visualized thoracic spine. Normal visualized ribs, clavicles, and shoulders. There is no demonstrated abnormality of the visualized soft tissue structures of the upper abdomen. RAD/Chest 1 View (Portable) IMPRESSION: Normal x-ray examination of the chest. Electronically Signed: Colby Cruz, at 12:37 EDT , Service support ,
[2019-06-25 13:07] VITALS: BP 121/76; PULSE 81; PULSE 84; RESP 17; TEMP 36.4; O2SAT 96; O2SAT 97
[2019-06-25 13:27] VITALS: BP 121/76; PULSE 83; RESP 19; O2SAT 94
== END 2019-06-25 13:35 | disposition home or self-care (01) ==
PROVIDERS: Emergency Provider Emergency Medicine; PCP Student in an Organized Health Care Education/Training Program
DX: R10.10 Upper abdominal pain, unspecified (principal); R05 Cough; R19.7 Diarrhea, unspecified; E66.01 Morbid (severe) obesity due to excess calories; F32.9 Major depressive disorder, single episode, unspecified; K21.9 Gastro-esophageal reflux disease without esophagitis; M79.7 Fibromyalgia; K44.9 Diaphragmatic hernia without obstruction or gangrene; N83.201 Unspecified ovarian cyst, right side; Z86.718 Personal history of other venous thrombosis and embolism; Z88.5 Allergy status to narcotic agent; Z90.49 Acquired absence of other specified parts of digestive tract
CPT/HCPCS: 71045; 74177; 80048; 80076; 83690; 85025; 96361; 96374; 96375; 96376; 99284; J7030; Q9967; A4216; J2405

== ENCOUNTER 2019-10-15 15:41 | Emergency (ER) | payer MEDICAID, SELFPAY ==
[2019-10-15 15:43] VITALS: BP 116/71; PULSE 65; RESP 16; TEMP 36.4; BMI 44.7
[2019-10-15 15:48] VITALS: BP 116/71; PULSE 65; RESP 16; TEMP 36.4
--- NOTE | 2019-10-15 16:28 | CT_ITS ---
STUDY: CT ABDOMEN AND PELVIS WITH CONTRAST REASON FOR EXAM: Female, 49 years old. PT STATED N/V, HX HIATAL HERNIA, OVARIAN CYST, [place] RADIATION DOSAGE (If Supplied By Facility): CTDIvol = ( 18.63 ) mGy, DLP = ( 1305.90 ) mGycm TECHNIQUE: Transaxial images were obtained from the dome of the diaphragm to the symphysis pubis with oral contrast. Oral and amp; IV Gastrografin and amp; 100mL Isovue-300 was administered. Sagittal and coronal images were reconstructed. Individualized dose optimization techniques were used for this CT. COMPARISON: 06/25/2019. FINDINGS: The visualized lung bases are unremarkable. The visualized portions of the heart are within normal limits. There is decreased attenuation of the liver consistent with steatosis. There is hepatomegaly. There is non-visualization of the gallbladder, which may be secondary to either contraction or a prior cholecystectomy. Normal spleen. Normal pancreas. Normal bilateral adrenal glands. Normal right kidney. Normal left kidney. Normal visualized stomach. Normal small intestine. Normal colon. There is non-visualization of the appendix. Normal abdominal aorta. Normal inferior vena cava. Normal retroperitoneum. Normal urinary bladder. There is absence of the uterus consistent with a prior hysterectomy. Normal abdominal wall. Normal osseous structures. CT/Abdomen/Pelvis WITH Contrast IMPRESSION: No definite acute or significant abnormality seen. Electronically Signed: Ad Stringer MD at 18:55 EDT , Service support ,
--- NOTE | 2019-10-15 16:29 | ED.DCSUM_ITS ---
History of Present Illness Chief Complaint: Nausea/Vomiting/Diarrhea Informant: Patient Onset: Days Context: Gradual Onset Current Severity: Moderate Maximum Severity: Moderate Narrative: Patient presents secondary to abdominal cramping and diarrhea for the past 4 days. She initially thought she had food poisoning, but symptoms have persisted. She had a Covid test today that was negative. She states pain started to radiate around to the right flank area. She has had nausea but no vomiting. She denies fever, but does feel warm. Prior abdominal surgeries include , hysterectomy, cholecystectomy. - Past Medical History (1) Obesity, Class III, BMI 40-49.9 (morbid obesity) Status: Chronic (2) Hiatal hernia Status: Chronic (3) GERD (gastroesophageal reflux disease) Status: Chronic (4) Fibromyalgia Status: Chronic (5) Depression Status: Chronic (6) H/O deep venous thrombosis Status: Chronic Past Medical History - Allergies and Home Meds Allergies/Adverse Reactions: Allergies hydromorphone HCl [From Dilaudid] Allergy (Verified 06/25/19 10:03) Chest tightness warfarin sodium [From Coumadin] Allergy (Verified 06/25/19 10:03) Chest tightness milnacipran HCl [From Savella] Adverse Reaction (Verified 06/25/19 10:03) Other pt does not remember pregabalin [From Lyrica] Adverse Reaction (Verified 06/25/19 10:03) Rash rivaroxaban [From Xarelto] Adverse Reaction (Verified 06/25/19 10:03) Nausea Primary Care Physician: Tang Olguin DO [Primary Care Provider] - Prior records reviewed: Yes Surgical History: cholecystectomy, - - , foot surgery for plantar fasciitis, breast reduction, uterine ablation,egd,carpal tunnel Lives: Spouse/ Significant Other Smoking Status: Never smoker - Family History Maternal Family History: Reports: Pulmonary Disease, No pertinent history, - - no history of CVD or CVA's, no FH of migraines, Paternal Family History: Reports: Pulmonary Disease Sibling Family History: Reports: - - sister with fibromyalgia Review of Systems General: Denies: Chills, Fever Eyes: Denies: Visual changes - bilaterally ENT: Denies: Bilateral ear pain Cardiovascular: Denies: Chest pain Respiratory: Denies: Dyspnea Gastrointestinal: Reports: Abdominal pain, Nausea, Diarrhea. Denies: Vomiting Genitourinary: Denies: Dysuria Musculoskeletal: Denies: Swelling, Extremity Pain Skin: Denies: Rash Neurological: Denies: Headache Hematologic: Denies: Easy bruising, Easy bleeding Allergy: Denies: Uticaria Physical Exam Vital Signs/Narrative: Vital Signs Temp Pulse Resp BP 10/15/19 15:48 97.5 F L 65 16 116/71 10/15/19 15:43 97.5 F L 65 16 116/71 Inital Vital Signs reviewed: Yes General: Well nourished, Well developed Head: Normocephalic ENT: Moist mucous membranes Neck: Supple Cardiovascular: Regular rate, Regular rhythm Respiratory: No distress, CTA bilaterally Abdomen: Soft, Tender - Mild diffuse tenderness palpation., Hypoactive bowel sounds. Negative for: Guarding, Rebound tenderness Back: Nontender Extremities: Nontender Skin: Normal color, No rash Neurological: Alert, Oriented x3 Psychological: Normal affect Diagnostic/Tx/Re-eval Impressions Abdomen/Pelvis CT 10/15/19 16:28 IMPRESSION: No definite acute or significant abnormality seen. Electronically Signed: Ad Stringer MD at 18:55 EDT , Service support , 10/15/19 16:28 Abdomen/Pelvis WITH Contrast [CT] Stat Laboratory Results 10/15/19 10/15/19 10/15/19 16:14 16:14 17:20 WBC 8.1 RBC 4.59 Hgb 12.6 Hct 39.1 MCV 85.2 MCH 27.5 MCHC 32.2 RDW Std Deviation 43.1 RDW Coeff of [place] 14.0 Plt Count 254 MPV 10.3 Immature Gran % (Auto) 0.500 Neut % (Auto) 65.7 Lymph % (Auto) 26.6 Dixon % (Auto) 5.7 Eos % (Auto) 1.1 Baso % (Auto) 0.4 Absolute Neuts (auto) 5.3 Absolute Lymphs (auto) 2.14 Nucleated RBC % 0 Sodium 141 Potassium 4.2 Chloride 109 H Carbon Dioxide 27.0 Anion Gap 5 BUN 7 Creatinine 0.76 Estim Creat Clear Calc 71.60 Est GFR (MDRD) Af Amer 105 Est GFR (MDRD) Non-Af 86 BUN/Creatinine Ratio 9.2 L Glucose 72 L Calcium 8.5 Total Bilirubin 0.30 Direct Bilirubin < 0.05 AST 26 ALT 30 Alkaline Phosphatase 109 Total Protein 7.4 Albumin 3.3 Globulin 4.1 Urine Color Cancelled Urine Clarity Cancelled Urine pH Cancelled Ur Specific [place] Cancelled U Specif Grav (Refrac) Cancelled Urine Protein Cancelled Urine Glucose (UA) Cancelled Urine Ketones Cancelled Urine Occult Blood Cancelled Urine Nitrite Cancelled Urine Bilirubin Cancelled Urine Urobilinogen Cancelled Ur Leukocyte Esterase Cancelled Urine RBC Cancelled Urine WBC Cancelled Ur Squamous Epith Cells Cancelled Ur Transition Epith Cell Cancelled Ur Renal Epithelial Cell Cancelled Calcium Oxalate Crystal Cancelled Uric Acid Crystals Cancelled Triple Phos Crystals Cancelled Other Crystals Cancelled Amorphous Sediment Cancelled Urine Bacteria Cancelled Hyaline Casts Cancelled Fine Granular Casts Cancelled Coarse Granular Casts Cancelled Waxy Casts Cancelled RBC Casts Cancelled WBC Casts Cancelled Urine Mucus Cancelled Urine Trichomonas Cancelled Urine Yeast Cancelled 10/15/19 18:30 WBC RBC Hgb Hct MCV MCH MCHC RDW Std Deviation RDW Coeff of [place] Plt Count MPV Immature Gran % (Auto) Neut % (Auto) Lymph % (Auto) Dixon % (Auto) Eos % (Auto) Baso % (Auto) Absolute Neuts (auto) Absolute Lymphs (auto) Nucleated RBC % Sodium Potassium Chloride Carbon Dioxide Anion Gap BUN Creatinine Estim Creat Clear Calc Est GFR (MDRD) Af Amer Est GFR (MDRD) Non-Af BUN/Creatinine Ratio Glucose Calcium Total Bilirubin Direct Bilirubin AST ALT Alkaline Phosphatase Total Protein Albumin Globulin Urine Color Yellow Urine Clarity Clear Urine pH 5.0 Ur Specific [place] 1.020 U Specif Grav (Refrac) Urine Protein Negative Urine Glucose (UA) Normal Urine Ketones Negative Urine Occult Blood Negative Urine Nitrite Negative Urine Bilirubin Negative Urine Urobilinogen Normal Ur Leukocyte Esterase Negative Urine RBC 0 SEEN Urine WBC 0 SEEN Ur Squamous Epith Cells 0-5 SEEN Ur Transition Epith Cell Ur Renal Epithelial Cell Calcium Oxalate Crystal Uric Acid Crystals Triple Phos Crystals Other Crystals Amorphous Sediment Urine Bacteria RARE Hyaline Casts Fine Granular Casts Coarse Granular Casts Waxy Casts RBC Casts WBC Casts Urine Mucus 0 SEEN Urine Trichomonas Urine Yeast - Medical Decision Making Patient was given morphine, Zofran, and IV fluids on arrival. Test results are discussed with patient and spouse at bedside. At this time I see no acute cause of her symptoms. She will be given prescriptions for Bentyl and Zofran at home. She is given return instructions. ED Disposition - Plan for ED Patient: Disposition: Home or Assisted Living Diagnosis: Abdominal pain Instructions: ED Abdominal Pain Unkn Cause Fem Prescriptions: Dicyclomine HCl [Bentyl] 20 mg PO TIDAC #20 cap [id number] Ondansetron [Zofran Odt] 4 mg PO Q8H PRN PRN #10 tab PRN Reason: Nausea Transmission Status: [id number] Referrals: Tang Olguin, [Primary Care Provider] - 3-5 Days if not improving
[2019-10-15] MEDS: Morphine 4 MG/ML Syringe IV (16:37)
[2019-10-15] MEDS: Ondansetron 4 MG/2 ML Vial IV (16:37)
[2019-10-15 17:16] LABS: Absolute Lymphocyte Count 2.14 X10^3/uL (0.83-4.51); Absolute Neutrophil Count 5.3 X10^3/uL (2.0-7.7); Basophil# 0.03 X10^3/uL; Basophil% 0.4 % (0-1); Eosinophil# 0.09 X10^3/uL; Eosinophils% 1.1 % (0-5); Hematocrit 39.1 % (37-47); Hemoglobin 12.6 g/dL (12.0-15.0); Lymphocyte # 2.14 X10^3/ul (4.0); Lymphocyte % 26.6 % (19-41); Mean Corp Hgb Conc 32.2 g/dL (32-36); Mean Corpuscular Hgb 27.5 pg (27.0-32.0); Mean Corpuscular Volume 85.2 fL (81-99); Mean Platelet Vol. 10.3 fl (6.2-12.0); Monocyte# 0.46 X10^3/uL; Monocyte% 5.7 % (0-10); NRBC Flagged by Analyzer 0 % (0-5); Neutrophil # 5.29 X10^3/uL (2.7-7.7); Neutrophil % 65.7 % (47-70); Platelet Count 254 K/mm3 (150-450); RBC Distribution Width SD 43.1 fl (35.1-43.9); Red Blood Count 4.59 M/mm3 (4.2-5.4); White Blood Count 8.1 K/mm3 (4.4-11.0)
[2019-10-15 17:54] LABS: AST(SGOT) 26 U/L (15-37); Alanine Aminotransfer ALT/SGPT 30 U/L (13-56); Albumin, Serum 3.3 g/dL (3.2-5.0); Alkaline Phosphatase 109 U/L (45-117); Anion Gap 5 (5-15); BUN 7 mg/dL (7-18); BUN/Creat Ratio 9.2 RATIO (10-20); Bilirubin, Direct < 0.05 mg/dL (0.00-0.30); Calcium,Total 8.5 mg/dL (8.5-10.1); Chloride 109 mmol/L (98-107); Creatinine, Serum 0.76 mg/dL (0.55-1.02); EST Glomerular Filtration Rate 86 mL/min (>60); Est Glom Filt Rate - Afr Amer 105 mL/min (>60); Globulin 4.1 g/dL (2.2-4.2); Glucose 72 mg/dL (74-106); Potassium 4.2 mmol/L (3.5-5.1); Protein, Total 7.4 g/dL (6.4-8.2); Sodium Level 141 mmol/L (136-145)
[2019-10-15 18:38] LABS: Mucous, Urine 0 SEEN /hpf (<or=2+); Red Blood Cells-Urine 0 SEEN /hpf (0-5); White Blood Cells 0 SEEN /hpf (0-5)
[2019-10-15 18:44] LABS: Color, Urine Yellow (Yellow); Glucose, Dipstick Normal (Normal); Ketone-Dipstick Negative (Negative); Leukocyte Esterase-Dipstick Negative /ul (Negative); Nitrite-Dipstick Negative (Negative); Occult Blood-Urine Negative /ul (Negative); Protein-Dipstick Negative (Negative); Urine Bilirubin Dipstick Negative (Negative); Urine Clarity Clear (Clear); Urine Urobilinogen Normal (Normal)
[2019-10-15 18:50] LABS: Bacteria RARE /hpf (None Seen); Squamous Epithelial Cells - UA 0-5 SEEN /hpf (5-10)
[2019-10-15 20:07] VITALS: BP 136/86; PULSE 70; RESP 16; O2SAT 98
== END 2019-10-15 20:12 | disposition home or self-care (01) ==
PROVIDERS: Emergency Provider Emergency Medicine; PCP Student in an Organized Health Care Education/Training Program
DX: R10.9 Unspecified abdominal pain (principal); R19.7 Diarrhea, unspecified; Z90.49 Acquired absence of other specified parts of digestive tract; E66.01 Morbid (severe) obesity due to excess calories; K21.9 Gastro-esophageal reflux disease without esophagitis; K44.9 Diaphragmatic hernia without obstruction or gangrene; M79.7 Fibromyalgia; F32.9 Major depressive disorder, single episode, unspecified; N83.209 Unspecified ovarian cyst, unspecified side; Z86.718 Personal history of other venous thrombosis and embolism; Z88.5 Allergy status to narcotic agent
CPT/HCPCS: 74177; 80048; 80076; 81001; 85025; 96361; 96374; 96375; 99283; J7030; Q9967; A4216; J2405

== ENCOUNTER 2019-10-30 00:24 | Emergency (ER) | payer MEDICAID, SELFPAY ==
[2019-10-30 00:25] VITALS: BP 126/74; PULSE 74; RESP 18; TEMP 36.5; O2SAT 100; BMI 49.3
--- NOTE | 2019-10-30 01:07 | ED.DCSUM_ITS ---
History of Present Illness Chief Complaint: Other, Pain/Inj Informant: Patient Narrative: Stated she is having pain on the inside of her right foot. She had surgery on this foot for heel spurs yesterday. She followed up today and had a cast placed as an outpatient. She stated tonight the pain has gotten worse on the inside of her foot. It is a sharp stabbing pain. She was told that the cast will loosen up tomorrow and may be snug tonight. She denies any significant pain in her leg. The cast goes up to her small alicea. Denies any numbness or tingling. She does have a static that is being injected into the nerve in her right lateral leg to help with pain control as well - Past Medical History (1) Depression Status: Chronic (2) Fibromyalgia Status: Chronic (3) GERD (gastroesophageal reflux disease) Status: Chronic (4) H/O deep venous thrombosis Status: Chronic (5) Hiatal hernia Status: Chronic (6) Obesity, Class III, BMI 40-49.9 (morbid obesity) Status: Chronic (7) Ovarian cyst Status: Chronic Past Medical History - Allergies and Home Meds Allergies/Adverse Reactions: Allergies hydromorphone HCl [From Dilaudid] Allergy (Verified 10/30/19 00:25) Chest tightness warfarin sodium [From Coumadin] Allergy (Verified 10/30/19 00:25) Chest tightness milnacipran HCl [From Savella] Adverse Reaction (Verified 10/30/19 00:25) Other pt does not remember pregabalin [From Lyrica] Adverse Reaction (Verified 10/30/19 00:25) Rash rivaroxaban [From Xarelto] Adverse Reaction (Verified 10/30/19 00:25) Nausea Primary Care Physician: Tang Olguin DO [Primary Care Provider] - Prior records reviewed: Yes Past Medical History: - - Problem list- see Surgical History: cholecystectomy, - - , foot surgery for plantar fasciitis, breast reduction, uterine ablation,egd,carpal tunnel Lives: With Family Smoking Status: Never smoker Alcohol: None Drugs: None - Family History Maternal Family History: Reports: Pulmonary Disease, No pertinent history, - - no history of CVD or CVA's, no FH of migraines, Paternal Family History: Reports: Pulmonary Disease Sibling Family History: Reports: - - sister with fibromyalgia Review of Systems General: Denies: Chills, Fever, Sweats Eyes: Denies: Visual changes - bilaterally, Diplopia ENT: Denies: Rhinorrhea, Sore throat Cardiovascular: Denies: Chest pain, Palpitations Respiratory: Denies: Dyspnea, Cough, Dyspnea on exertion Gastrointestinal: Denies: Abdominal pain, Nausea, Vomiting, Diarrhea, Melena, Hematochezia Genitourinary: Denies: Dysuria, Hematuria, Frequency Musculoskeletal: Reports: Extremity Pain - She is having postoperative pain see HPI. Denies: Back pain Skin: Denies: Rash, Wounds Neurological: Denies: Headache, Weakness, Numbness Physical Exam Vital Signs/Narrative: Vital Signs Temp Pulse Resp BP Pulse Ox 10/30/19 00:25 97.7 F L 74 18 126/74 H 100 General: Well nourished, Well developed, No Acute Distress Head: Normocephalic, Atraumatic Eyes: Perrl, EOMI ENT: Moist mucous membranes, No rhinorrhea Neck: Supple, Nontender Cardiovascular: Regular rate, Regular rhythm, No murmurs Respiratory: No distress, CTA bilaterally, Chest nontender Abdomen: Soft, Nontender, Nondistended, Normal bowel sounds Back: Nontender, Normal Inspection Extremities: - - Has a cast on her right lower extremity up to her proximal alicea. And I am unable to palpate pulses or see the wound. Skin: Normal color, No rash Neurological: Alert, Oriented x3, Cranial nerves II-XII grossly intact, Normal Strength, Normal Sensation Psychological: Normal affect, Normal Mood Diagnostic/Tx/Re-eval - Medical Decision Making Discussed taking the cast off with the patient. I discussed the possibility of postoperative pain exacerbated by the cast. I have a low suspicion for compartment syndrome but this is possible. Her surgery was in her foot however. Patient wants to keep the cast on. She stated starting to feel better. Given a dose of morphine intramuscular. On reevaluation she feels significantly better resting comfortably. I have a low suspicion again for compartment syndrome on reevaluation. She is wiggling her toes. I did discuss again taken her cast off and she would like to hold off and see if it loosens up throughout the night. I suspect her pain is worse because she has a cast that is elizabeth sing her wound surgical site and not a compartment syndrome. She does not want her cast off. She will follow-up and return if she worsens ED Disposition - Plan for ED Patient: Disposition: Home or Assisted Living Diagnosis: Post-operative pain Instructions: Managing Post-Op Pain at Home: Non-Medication Relief Referrals: Tang Olguin DO [Primary Care Provider] -
[2019-10-30] MEDS: morphine 8 MG/ML Syringe IM (01:12)
[2019-10-30 01:55] VITALS: BP 112/74; PULSE 71; RESP 17; O2SAT 99
== END 2019-10-30 01:56 | disposition home or self-care (01) ==
PROVIDERS: Emergency Provider Emergency Medicine; PCP Student in an Organized Health Care Education/Training Program
DX: G89.18 Other acute postprocedural pain (principal); Z90.49 Acquired absence of other specified parts of digestive tract; F32.9 Major depressive disorder, single episode, unspecified; M79.7 Fibromyalgia; K21.9 Gastro-esophageal reflux disease without esophagitis; E66.01 Morbid (severe) obesity due to excess calories; Z68.41 Body mass index [BMI] 40.0-44.9, adult; Z86.718 Personal history of other venous thrombosis and embolism
CPT/HCPCS: 99282

== ENCOUNTER 2019-11-18 17:01 | Emergency (ER) | payer MEDICAID, SELFPAY ==
[2019-11-18 17:02] VITALS: BP 142/89; PULSE 88; RESP 17; TEMP 36.2; O2SAT 98; BMI 40.2
--- NOTE | 2019-11-18 17:21 | ED.DCSUM_ITS ---
History of Present Illness Chief Complaint: Lower Extremity Injury Informant: Patient Onset: Days - 3 days Context: Gradual Onset Timing: Intermittent Current Severity: Mild Maximum Severity: Moderate Narrative: She presents with a 3-day history of intermittent cramping and aching behind her knee and on her lower leg. She had surgery 21 days ago for plantar fasciitis, bone spurs x2, and her heel was shaved. She is currently in a lower extremity cast. She was on Lovenox for the first 14 days after her surgery. She does have a history of DVTs. Her orthopedic doctor in [place] sent her in to rule out DVT. She denies chest pain or shortness of breath. - Past Medical History (1) Depression Status: Chronic (2) Fibromyalgia Status: Chronic (3) GERD (gastroesophageal reflux disease) Status: Chronic (4) H/O deep venous thrombosis Status: Chronic (5) Hiatal hernia Status: Chronic Past Medical History - Allergies and Home Meds Allergies/Adverse Reactions: Allergies hydromorphone HCl [From Dilaudid] Allergy (Verified 11/18/19 17:02) Chest tightness warfarin sodium [From Coumadin] Allergy (Verified 11/18/19 17:02) Chest tightness milnacipran HCl [From Savella] Adverse Reaction (Verified 11/18/19 17:02) Other pt does not remember pregabalin [From Lyrica] Adverse Reaction (Verified 11/18/19 17:02) Rash rivaroxaban [From Xarelto] Adverse Reaction (Verified 11/18/19 17:02) Nausea Primary Care Physician: Tang Olguin DO [Primary Care Provider] - Prior records reviewed: Yes Surgical History: cholecystectomy, - - , foot surgery for plantar fasciitis, breast reduction, uterine ablation,egd,carpal tunnel Smoking Status: Never smoker - Family History Maternal Family History: Reports: Pulmonary Disease, No pertinent history, - - no history of CVD or CVA's, no FH of migraines, Paternal Family History: Reports: Pulmonary Disease Sibling Family History: Reports: - - sister with fibromyalgia Review of Systems General: Denies: Chills, Fever Eyes: Denies: Visual changes - bilaterally ENT: Denies: Bilateral ear pain Cardiovascular: Denies: Chest pain Respiratory: Reports: - - Occasional wheezing secondary to allergies. Denies: Dyspnea Gastrointestinal: Denies: Abdominal pain Genitourinary: Denies: Dysuria Musculoskeletal: Reports: Swelling, Extremity Pain Skin: Denies: Rash Neurological: Denies: Headache Allergy: Denies: Uticaria Physical Exam Vital Signs/Narrative: Vital Signs Temp Pulse Resp BP Pulse Ox 11/18/19 17:02 97.2 F L 88 17 142/89 H 98 Inital Vital Signs reviewed: Yes General: Well nourished, Well developed Head: Normocephalic ENT: Moist mucous membranes Neck: Supple Cardiovascular: Regular rate, Regular rhythm Respiratory: No distress, CTA bilaterally Abdomen: Soft, Nontender Extremities: - - Still two thirds of the right lower leg is covered in cast. No focal calf tenderness or palpable cords over the upper portion of her lower leg. Skin: Normal color Neurological: Alert, Oriented x3 Psychological: Normal affect Diagnostic/Tx/Re-eval Venous ultrasound of the thigh and upper portion of the lower leg was obtained with no evidence of DVT. - Medical Decision Making Patient was sent for ultrasound with cast in place. My thought was that if there was a clot in her thigh or upper portion of her lower leg she would need to be treated with thinners regardless. If there was no clot plan was to cut off the cast to scan the rest of the leg. Initial scan comes back with no evidence of DVT. When I went back to talk with the patient and cut off her cast she is declining that at this time. She was previously on Lovenox 40 mg once a day and wishes just to be covered on this. She will call her doctor for follow- up. She is reassured that at this time there is no clot in the thigh or upper portion of the lower leg so repeat ultrasound is not an unreasonable treatment. ED Disposition - Plan for ED Patient: Disposition: Home or Assisted Living Diagnosis: Right leg pain, Postoperative pain Prescriptions: Enoxaparin [Lovenox] 40 mg SUBCUT DAILY@0600 #20 syringe Transmission Status: Pending to [id number] Additional Instructions: As discussed, there is no clot in the thigh or upper portion of your lower leg. You will be covered with the same dose of Lovenox you were on after your surgery. Please talk to your surgeon tomorrow regarding follow-up scans.
--- NOTE | 2019-11-18 17:47 | US_ITS ---
STUDY: VENOUS DOPPLER ULTRASOUND - RIGHT LOWER EXTREMITY REASON FOR EXAM: Female, 49 years old. RT LEG PAIN S/P FOOT SURGERY TECHNIQUE: Ultrasound evaluation of the deep vein system to include suárez-scale imaging and compression was performed. Suárez-scale imaging and Doppler sonographic evaluation, including duplex spectral analysis and qualitative color flow sonography, was performed. COMPARISON: None. FINDINGS: Slightly limited study due to bandages. Common femoral, femoral, and popliteal veins are patent with no evidence of luminal thrombus. Deep venous structures respond normally to compression maneuvers. Normal color Doppler. Visualized calf veins are patent. US/Venous Duplex Imag/Limited/Uni IMPRESSION: Normal venous Doppler ultrasound of the lower extremity. Electronically Signed: Sanam Noonan MD at 19:15 EDT Tel , Service support ,
[2019-11-18] MEDS: Enoxaparin 40 MG/0.4 ML Syringe SC (18:53)
[2019-11-18 18:54] VITALS: RESP 16
== END 2019-11-18 19:01 | disposition home or self-care (01) ==
PROVIDERS: Emergency Provider Emergency Medicine; PCP Student in an Organized Health Care Education/Training Program
DX: M79.604 Pain in right leg (principal); G89.18 Other acute postprocedural pain; K21.9 Gastro-esophageal reflux disease without esophagitis; M79.7 Fibromyalgia; Z79.01 Long term (current) use of anticoagulants; Z88.5 Allergy status to narcotic agent; Z90.49 Acquired absence of other specified parts of digestive tract; Z86.718 Personal history of other venous thrombosis and embolism; F32.9 Major depressive disorder, single episode, unspecified
CPT/HCPCS: 93971; 96372; 99282

== ENCOUNTER 2020-02-10 05:57 | Emergency (ER) | payer MEDICAID, SELFPAY ==
[2020-02-10 05:58] VITALS: BP 141/86; PULSE 84; RESP 17; TEMP 36.6; O2SAT 95; BMI 46.3
--- NOTE | 2020-02-10 06:07 | CT_ITS ---
STUDY: CT ABDOMEN AND PELVIS WITHOUT CONTRAST REASON FOR EXAM: Female, 49 years old. LEFT FLANK PAIN. PRIOR CHICO,HYSTERECTOMY (HAS OVARIES) RADIATION DOSAGE (If Supplied By Facility): CTDIvol = ( 24.06 ) mGy, DLP = ( 1202.23 ) mGycm TECHNIQUE: Transaxial images were obtained from the dome of the diaphragm to the symphysis pubis without oral contrast, and without intravenous contrast. Sagittal and coronal images were reconstructed. Individualized dose optimization techniques were used for this CT. COMPARISON: CT scan 10/15/2019.w FINDINGS: The visualized lung bases are unremarkable. The visualized portions of the heart are within normal limits. There is decreased attenuation of the liver consistent with steatosis. The gallbladder surgically absent. There is mild splenomegaly. Normal pancreas. Normal bilateral adrenal glands. Normal right kidney. Normal left kidney. Normal visualized stomach. Normal small intestine. Normal colon. The appendix is visualized on axial images 90-114 and it appears normal.. Normal abdominal aorta. Normal inferior vena cava. Normal retroperitoneum. Assessment of the urinary bladder is limited by nondistention. There is absence of the uterus consistent with a prior hysterectomy..There is a 2.5 cm right ovarian cyst. Normal abdominal wall. There are diffuse degenerative changes of the visualized lumbar spine. CT/Abdomen/Pelvis without Cont IMPRESSION: Previous hysterectomy and cholecystectomy. 2.5 cm right ovarian cyst. Fatty liver. Mild splenomegaly. No evidence for acute pathology. No demonstrated urinary calculi or hydronephrosis. No evidence for diverticulitis or appendicitis. Electronically Signed: Matty Johnson MD at 7:04 EST , Service support ,
[2020-02-10 06:08] LABS: Bacteria 0 SEEN /hpf (None Seen); Color, Urine Yellow (Yellow); Glucose, Dipstick Normal (Normal); Ketone-Dipstick 5 mg/dl (Negative); Leukocyte Esterase-Dipstick Negative /ul (Negative); Mucous, Urine 0 SEEN /hpf (<or=2+); Nitrite-Dipstick Negative (Negative); Occult Blood-Urine 10 /ul (Negative); Protein-Dipstick 15 mg/dl (Negative); Urine Bilirubin Dipstick Negative (Negative); Urine Clarity Clear (Clear); Urine Urobilinogen Normal (Normal); White Blood Cells 0 SEEN /hpf (0-5)
--- NOTE | 2020-02-10 06:08 | ED.VIS.GEN ---
History of Present Illness Chief Complaint: Flank Pain Informant: Patient Narrative: Patient is a 49-year-old female who presents to the emergency department for left-sided flank pain that radiates into her abdomen. She states that this initially started 3 or 4 days ago. The pain relieved on its own. Yesterday the pain returned and it was very severe. She currently rates the pain as an 8 out of 10. She has been taking Aleve for this which does take the edge off. She has been nauseous and having chills with it. She states that she is not peeing very frequently and it is difficult to go. No dysuria or hematuria. She denies any history of kidney stones. She has a history of section, cholecystectomy and hysterectomy. She denies any chest pain or shortness of breath. She has not had any fevers. No change in bowel habits. Past Medical History - Allergies and Home Meds Allergies/Adverse Reactions: Allergies hydromorphone HCl [From Dilaudid] Allergy (Verified 02/10/20 05:58) Chest tightness warfarin sodium [From Coumadin] Allergy (Verified 02/10/20 05:58) Chest tightness milnacipran HCl [From Savella] Adverse Reaction (Verified 02/10/20 05:58) Other pt does not remember pregabalin [From Lyrica] Adverse Reaction (Verified 02/10/20 05:58) Rash rivaroxaban [From Xarelto] Adverse Reaction (Verified 02/10/20 05:58) Nausea Primary Care Physician: Tang Olguin DO [Primary Care Provider] - 2 Days Prior records reviewed: Yes Past Medical History: - - History of DVT, fibromyalgia, GERD Surgical History: cholecystectomy, - - , foot surgery for plantar fasciitis, breast reduction, uterine ablation,egd,carpal tunnel Smoking Status: Never smoker - Family History Maternal Family History: Family History (Last Updated 01/16/20 @ 09:27 by Lala Rivera) Mother Hypertension Hyperlipidemia alcohol/drug addiction Allergies Father alcohol/drug addiction Sister Thyroid disorder Fibromyalgia Blindness Grandmother Emphysema lung Heart disease Grandfather Emphysema lung Brother alcohol/drug addiction Family History: Reports: Pulmonary Disease, No pertinent history, - - no history of CVD or CVA's, no FH of migraines, Paternal Family History: Family History (Last Updated 01/16/20 @ 09:27 by Lala Rivera) Mother Hypertension Hyperlipidemia alcohol/drug addiction Allergies Father alcohol/drug addiction Sister Thyroid disorder Fibromyalgia Blindness Grandmother Emphysema lung Heart disease Grandfather Emphysema lung Brother alcohol/drug addiction Family History: Reports: Pulmonary Disease Sibling Family History: Family History (Last Updated 01/16/20 @ 09:27 by Lala Rivera) Mother Hypertension Hyperlipidemia alcohol/drug addiction Allergies Father alcohol/drug addiction Sister Thyroid disorder Fibromyalgia Blindness Grandmother Emphysema lung Heart disease Grandfather Emphysema lung Brother alcohol/drug addiction Family History: Reports: - - sister with fibromyalgia Review of Systems All systems negative except as indicated General: Reports: Chills. Denies: Fever, Sweats Eyes: Denies: Visual changes - bilaterally, Diplopia ENT: Denies: Rhinorrhea, Sore throat Cardiovascular: Denies: Chest pain, Palpitations Respiratory: Denies: Dyspnea, Cough, Dyspnea on exertion Gastrointestinal: Reports: Abdominal pain, Nausea. Denies: Vomiting, Diarrhea, Melena, Hematochezia Genitourinary: Reports: - - Difficulty urinating. Denies: Dysuria, Hematuria, Frequency Musculoskeletal: Reports: Back pain. Denies: Extremity Pain Skin: Denies: Rash, Wounds Neurological: Denies: Headache, Weakness, Numbness Physical Exam Vital Signs/Narrative: Vital Signs Temp Pulse Resp BP Pulse Ox 02/10/20 05:58 98 F 84 17 141/86 H 95 Inital Vital Signs reviewed: Yes General: Well nourished, Well developed, No Acute Distress, - - Patient appears uncomfortable but nontoxic. Head: Normocephalic, Atraumatic Eyes: Perrl, EOMI ENT: Moist mucous membranes, No rhinorrhea Neck: Supple, Nontender Cardiovascular: Regular rate, Regular rhythm, No murmurs Respiratory: No distress, CTA bilaterally, Chest nontender Abdomen: Soft, Nontender, Nondistended, Normal bowel sounds Back: Normal Inspection, CVA tenderness - On the left. Negative for: Spinal tenderness Extremities: Nontender, No edema. Negative for: Calf Tenderness Skin: Normal color, No rash Neurological: Alert, Oriented x3, Normal Strength, Normal Sensation Psychological: Normal affect, Normal Mood Diagnostic/Tx/Re-eval - Medical Decision Making Patient presents to the emerge department for left-sided flank pain that wraps around to her left sided abdomen. Upon arrival to the emergency department vital signs within normal limits. She does not appear in acute distress. Her pain is reproducible on palpation. Basic lab work including CBC and BMP are being obtained. Will check urinalysis for evidence of infection. CT scan of the abdomen pelvis being obtained to evaluate for ureterolithiasis. She is given a dose of Toradol and Zofran for symptomatic treatment. Patient's lab work did not reveal any significant acute abnormality. Urine did not show any evidence of UTI. There were some red blood cells present. CT scan did not show any obvious obstructing stone. No other acute pathology noted. On reevaluation of the patient she does appear comfortable. She states that the Toradol did take the edge off but still having some pain. She is given a Mclaughlin as she has previously tolerated this in the past. She does feel comfortable going home at this time. Will discharge home in stable condition. Warning signs and symptoms for which to return to the ED are reviewed with her including any worsening symptoms, developing any fever/chills. She understands and is agreeable with this plan. All questions were answered. ED Disposition - Plan for ED Patient: Disposition: Home or Assisted Living Diagnosis: Flank pain, Nausea Instructions: ED Flank Pain, Uncertain Cause Referrals: Tang Olguin DO [Primary Care Provider] - 2 Days
[2020-02-10 06:12] LABS: Absolute Lymphocyte Count 2.07 X10^3/uL (0.83-4.51); Absolute Neutrophil Count 4.9 X10^3/uL (2.0-7.7); Basophil# 0.04 X10^3/uL; Basophil% 0.5 % (0-1); Eosinophil# 0.09 X10^3/uL; Eosinophils% 1.2 % (0-5); Hematocrit 40.2 % (37-47); Lymphocyte # 2.07 X10^3/ul (4.0); Lymphocyte % 26.9 % (19-41); Mean Corp Hgb Conc 32.3 g/dL (32-36); Mean Corpuscular Hgb 27.8 pg (27.0-32.0); Mean Corpuscular Volume 86.1 fL (81-99); Monocyte# 0.57 X10^3/uL; Monocyte% 7.4 % (0-10); NRBC Flagged by Analyzer 0 % (0-5); Neutrophil % 63.6 % (47-70); Platelet Count 270 K/mm3 (150-450); RBC Distribution Width CV 13.7 % (11.6-14.6); RBC Distribution Width SD 42.5 fl (35.1-43.9); Red Blood Count 4.67 M/mm3 (4.2-5.4); White Blood Count 7.7 K/mm3 (4.4-11.0)
[2020-02-10 06:16] LABS: Red Blood Cells-Urine 5-10 SEEN /hpf (0-5); Squamous Epithelial Cells - UA 5-10 SEEN /hpf (5-10)
[2020-02-10 06:31] LABS: Anion Gap 3 (5-15); BUN 10 mg/dL (7-18); BUN/Creat Ratio 11.3 RATIO (10-20); Chloride 107 mmol/L (98-107); Creatinine, Serum 0.89 mg/dL (0.55-1.02); EST Glomerular Filtration Rate 72 mL/min (>60); Est Glom Filt Rate - Afr Amer 87 mL/min (>60); Estimated Creatinine Clearance 61.14 ml/min; Glucose 109 mg/dL (74-106); Potassium 3.8 mmol/L (3.5-5.1); Sodium Level 139 mmol/L (136-145)
[2020-02-10] MEDS: Ketorolac 15 MG/ML Vial IV (06:40)
[2020-02-10] MEDS: Ondansetron 4 MG/2 ML Vial IV (06:40)
[2020-02-10 07:17] VITALS: BP 140/85; PULSE 67; RESP 16; O2SAT 96
[2020-02-10] MEDS: HYDROcodone Bitartrate/Apap 5/325 Tablet PO (07:17)
== END 2020-02-10 07:25 | disposition home or self-care (01) ==
PROVIDERS: Emergency Provider Emergency Medicine; PCP Student in an Organized Health Care Education/Training Program
DX: R10.9 Unspecified abdominal pain (principal); R11.0 Nausea; R68.83 Chills (without fever); Z82.49 Family history of ischemic heart disease and other diseases of the circulatory system; Z86.718 Personal history of other venous thrombosis and embolism; Z88.5 Allergy status to narcotic agent; Z90.49 Acquired absence of other specified parts of digestive tract; Z90.710 Acquired absence of both cervix and uterus; K21.9 Gastro-esophageal reflux disease without esophagitis; M79.7 Fibromyalgia
CPT/HCPCS: 74176; 80048; 81001; 85025; 87086; 96374; 96375; 99282; A4216; J2405

== ENCOUNTER → 2020-04-02 11:21 | Outpatient (CLI) | payer MEDICAID, SELFPAY ==
[2020-04-02 11:49] LABS: D-Dimer Quantitative (DVT/PE) 0.32 FEU/ug/m (0.27-0.49)
== END ==
PROVIDERS: PCP Student in an Organized Health Care Education/Training Program; Referring Provider Physician Assistant; Visit Provider Physician Assistant
DX: R07.89 Other chest pain (principal); M79.604 Pain in right leg
CPT/HCPCS: 85379

== ENCOUNTER 2020-07-29 23:22 | Emergency (ER) | payer MEDICAID, SELFPAY ==
[2020-07-26 13:15] VITALS: BMI 46.3
[2020-07-29 23:24] VITALS: BP 158/84; PULSE 86; RESP 14; TEMP 36.7; O2SAT 98; BMI 46.3
--- NOTE | 2020-07-29 23:38 | ED.VIS.LOWEX ---
HPI History of Present Illness Chief Complaint: Lower Extremity Injury Informant: patient Onset/Context/Timing Onset: Today Context: Gradual Onset Timing: Continuous Quality of Pain: Stabbing and Throbbing Current Severity: Moderate Maximum Severity: Moderate Associated Symptoms Associated Symptoms: Negative for Parasthesia, Weakness and Loss of Funtion Narrative Narrative: Patient is a 50-year-old female presents to the emergency department for right heel pain. Patient states that last year, she had surgery on her calcaneus and on her Achilles. She states that about a week ago, she stepped down and felt like something popped. She states it really did not hurt. Today, she was getting up from a seated position and had the same pain. She states it was difficult to bear weight on her foot. She denies other injury. She is otherwise been in her normal state of health. [facility] Medical History Anxiety Aortic aneurysm Calcaneal spur Carpal tunnel syndrome Colon polyps Delivery with history of Depressive disorder Diaphragmatic hernia without mention of obstruction or gangrene DVT (deep venous thrombosis) Endometriosis Fibromyalgia muscle pain GERD (gastroesophageal reflux disease) Hayfever HSV infection HTN (hypertension) Hypercholesteremia Impaired fasting glucose Patellofemoral disorder PTSD (post-traumatic stress disorder) r middle trigger finger release Rheumatoid arthritis Right hand paresthesia Seizures Temporomandibular joint disorder Trigger middle finger of right hand Trigger ring finger of right hand uterine ablation Vitamin D deficiency Home Medications duloxetine 30 mg PO QHS 03/02/13 [History Last Taken 05/07/19] ropinirole [Requip] 4 mg PO QHS 03/10/14 [History Last Taken 05/07/19] valacyclovir [Valtrex] 500 mg PO QHS 12/06/16 [History Last Taken 05/07/19] Zyrtec 10 mg PO QHS 01/22/17 [History Last Taken 05/07/19] cholecalciferol (vitamin D3) 2,000 unit PO DAILY 05/08/19 [History Last Taken 05/07/19] ondansetron 4 mg PO Q8H PRN PRN #10 tab 10/15/19 [Rx Last Taken Unknown] albuterol sulfate 2 puff INHALATION Q4H PRN PRN 10/30/19 [History Last Taken Unknown] ferrous sulfate 325 mg PO DAILY 10/30/19 [History Last Taken Unknown] fluticasone propionate 1 puff INHALATION BID 10/30/19 [History Last Taken Unknown] magnesium 30 mg PO DAILY 10/30/19 [History Last Taken Unknown] metoprolol succinate 25 mg PO DAILY 10/30/19 [History Last Taken Unknown] ondansetron 4 mg PO Q6H PRN PRN 10/30/19 [History Last Taken Unknown] omeprazole 40 mg capsule,delayed release 40 mg PO DAILY 07/26/20 [History Last Taken Unknown] hydrocodone-acetaminophen 1 tab PO Q6H PRN PRN 3 Days #10 tablet 07/30/20 [Rx Last Taken Unknown] Allergy/AdvReac Type Severity Reaction Status Date / Time hydromorphone HCl Allergy Chest Verified 07/29/20 23:23 [From Dilaudid] tightness warfarin sodium Allergy Chest Verified 07/29/20 23:23 [From Coumadin] tightness milnacipran HCl AdvReac Other Verified 07/29/20 23:23 [From Savella] pregabalin [From Lyrica] AdvReac Rash Verified 07/29/20 23:23 rivaroxaban [From Xarelto] AdvReac Nausea Verified 07/29/20 23:23 Family History Mother Hypertension Hyperlipidemia alcohol/drug addiction Allergies Father alcohol/drug addiction Sister Thyroid disorder Fibromyalgia Blindness Grandmother Emphysema lung Heart disease Grandfather Emphysema lung Brother alcohol/drug addiction Surgical History History of bilateral breast reduction surgery History of bilateral salpingectomy History of carpal tunnel release History of esophagogastroduodenoscopy (EGD) History of laparoscopic cholecystectomy History of laparoscopic-assisted vaginal hysterectomy History of tubal ligation Hx of colonoscopy S/P foot surgery, left Social History Smoking Status: Never smoker alcohol intake: former what type of physical activity do you participate in: walking seatbelt use: always do you feel safe at home: Yes additional social history: single- unemployed EXAM Physical Exam Const Vital Signs: 07/29/20 23:24 Temperature 98.0 F Temperature Source Temporal Pulse Rate 86 Respiratory Rate 14 Blood Pressure 158/84 H Blood Pressure Mean 108 Pulse Ox 98 Oxygen Delivery Method Room Air MDM MDM MDM Narrative Medical decision making narrative: The patient presents to the emergency department with heel pain. She does have history of prior heel surgery. I did obtain plain films of the foot and the calcaneus. There is no evidence of fracture. She does have a heel spur. Is reviewed by both myself and the radiologist. With her history of surgery, I do feel that placing her in a boot would be appropriate. She also given a short course of analgesics. 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 Impression 1. Right heel spur Discharge Plan Triage Chief Complaint: Lower Extremity Injury ED Provider: Evaristo Gutierrez Dx/Rx/DC Orders Instructions: ED Heel Spur Prescriptions: New hydrocodone-acetaminophen [hydrocodone-acetaminophen] 1 TABLET tablet 1 tab PO Q6H PRN PRN (Reason: Pain) 3 Days Qty: 10 RF: 0 No Action omeprazole 40 mg capsule,delayed release(DR/EC) 40 mg PO DAILY RF: 0 duloxetine 60 MG capsule 30 mg PO QHS RF: 0 ropinirole [Requip] 4 MG tablet 4 mg PO QHS RF: 0 valacyclovir [Valtrex] 500 MG tablet 500 mg PO QHS RF: 0 Zyrtec 10 MG capsule 10 mg PO QHS RF: 0 cholecalciferol (vitamin D3) 2,000 UNIT capsule 2,000 unit PO DAILY RF: 0 ondansetron 4 MG tablet 4 mg PO Q8H PRN PRN (Reason: Nausea) Qty: 10 RF: 0 ferrous sulfate 325 MG tablet 325 mg PO DAILY RF: 0 metoprolol succinate 25 MG tablet extended release 24 hr 25 mg PO DAILY RF: 0 albuterol sulfate 1 INHALER inhaler 2 puff inhalation Q4H PRN PRN (Reason: Wheezing) RF: 0 magnesium 30 MG tablet 30 mg PO DAILY RF: 0 fluticasone propionate 1 INHALER inhaler 1 puff inhalation BID RF: 0 ondansetron 4 MG tablet 4 mg PO Q6H PRN PRN (Reason: Nausea) RF: 0 Primary Care Provider: Tang Olguin Referrals: Tang Olguin DO [Primary Care Provider] -
--- NOTE | 2020-07-29 23:50 | RAD_ITS ---
STUDY: X-RAY - RIGHT CALCANEUS REASON FOR EXAM: Female, 50 years old patient with injury of the heel. TECHNIQUE: Plantar and lateral view(s) of the calcaneus were obtained. COMPARISON: Radiographs of the right foot dated 07/29/2020. FINDINGS: There is a posterior and plantar calcaneal enthesophyte and plantar calcaneal spur. The tarsal bones have a generally normal appearance and alignment. Visualized metatarsals have a normal appearance. There is localized soft tissue swelling of the heel are particularly posterior to the calcaneus that suggests possible injury to the distal Achilles tendon. RAD/Calcaneus min 2 Views IMPRESSION: Soft tissue swelling and calcaneal spurs. Electronically Signed: Noelle Huang MD at 1:00 EDT , Service support ,
--- NOTE | 2020-07-29 23:54 | RAD_ITS ---
STUDY: X-RAY - RIGHT FOOT CLINICAL: Female, 50 years old patient with right-sided foot injury. TECHNIQUE: 3 view(s) of the foot. COMPARISON: Prior comparison studies are not available for review at this time. FINDINGS: There is a posterior calcaneal enthesophyte and plantar calcaneal spur. The bones have normal appearance and alignment. There is joint space narrowing of the intertarsal and tarsometatarsal reticulations. Normal metatarsi. There is degenerative arthrosis of the metatarsophalangeal joint of the hallux . Normal tibial and fibular sesamoid bones. Normal interphalangeal joint of the great toe. Normal phalanges of the great toe. Normal second through fifth metatarsophalangeal joints. Normal interphalangeal joints and phalanges of the lesser toes. There is moderately severe soft tissue swelling particularly posterior to the calcaneus with may be injury to the distal Achilles tendon near its insertion. RAD/Foot min 3 Views IMPRESSION: Soft tissue swelling particularly of the heel with calcaneal spurs could be secondary to sequela of plantar fasciitis or recent trauma. Electronically Signed: Noelle Huang MD at 0:58 EDT , Service support ,
== END 2020-07-30 01:17 | disposition home or self-care (01) ==
LOC: ED 23:44
PROVIDERS: Emergency Provider Emergency Medicine; PCP Student in an Organized Health Care Education/Training Program
DX: M77.31 Calcaneal spur, right foot (principal); I10 Essential (primary) hypertension; E78.00 Pure hypercholesterolemia, unspecified; K21.9 Gastro-esophageal reflux disease without esophagitis; F43.10 Post-traumatic stress disorder, unspecified; F32.9 Major depressive disorder, single episode, unspecified; M06.9 Rheumatoid arthritis, unspecified; Z56.0 Unemployment, unspecified; Z79.01 Long term (current) use of anticoagulants; Z79.899 Other long term (current) drug therapy
CPT/HCPCS: 73630; 73650; 99283

== ENCOUNTER 2020-08-11 15:21 | Emergency (ER) | payer MEDICAID, SELFPAY ==
[2020-08-11 15:22] VITALS: BP 157/89; PULSE 79; RESP 16; TEMP 36.3; O2SAT 98; BMI 46.6
--- NOTE | 2020-08-11 15:37 | VDUE_ITS ---
Reason For Study: Pain Left Proximal Left jugular vein is spontaneous, widely patent, phasic, with no intraluminal echogenicity noted. Left subclavian vein is spontaneous, widely patent, phasic, with no intraluminal echogenicity noted. Left Arm Left axillary vein is spontaneous, patent, phasic, competent, compressible and demonstrates augmentation. Left brachial vein is compressible. Left cephalic vein is compressible. Left basilic vein is compressible. Left Lower Arm Left radial vein is compressible. Left ulnar vein is compressible. VL/Venous Duplex US, Unilateral Interpretation Summary Deep veins of the left upper extremity are patent and compressible segmentally. There is no evidence of deep vein thrombosis. The superficial veins of the left upper extremity, the basilic and cephalic veins, are patent and compressible. There is no evidence of left upper extremit y superficial thrombophlebitis involving the veins imaged. Ordering Physician: Angela Millard Referring Physician: Tang Olguin Performed By: Lian Cooper, TREVORCS, RVT ?
--- NOTE | 2020-08-11 15:38 | EDS_ITS ---
HPI History of Present Illness Chief Complaint: Upper Extremity Injury Detail of Chief Complaint: Left elbow pain Informant: patient Occured/Mechanism Comment: Patient states that she picked up a case of Gatorade 2 months ago and felt a tear in her left elbow. Narrative Narrative: Patient presents with pain in her left elbow for about 2 months. Patient states that she picked up a case of Gatorade and felt a tear in her left elbow area. She was seen in urgent care and referred to orthopedics. She followed up with Dr. Ramires who wanted to obtain an MRI of her left elbow but it was denied by insurance. Patient states that they have appealed it. She continues to have pain despite using Tylenol and Voltaren cream and prednisone. She states that the prednisone seemed to help for short time but then the discomfort came back. Patient denies any chest pain or shortness of breath. Patient states that now it feels like her arm is swelling and has pain towards the shoulder as well. She is not had any fever or recent illness. [facility] Medical History Anxiety Aortic aneurysm Calcaneal spur Carpal tunnel syndrome Colon polyps Delivery with history of Depressive disorder Diaphragmatic hernia without mention of obstruction or gangrene DVT (deep venous thrombosis) Endometriosis Fibromyalgia muscle pain GERD (gastroesophageal reflux disease) Hayfever HSV infection HTN (hypertension) Hypercholesteremia Impaired fasting glucose Patellofemoral disorder PTSD (post-traumatic stress disorder) r middle trigger finger release Rheumatoid arthritis Right hand paresthesia Seizures Temporomandibular joint disorder Trigger middle finger of right hand Trigger ring finger of right hand uterine ablation Vitamin D deficiency Home Medications duloxetine 30 mg PO QHS 03/02/13 [History Last Taken 05/07/19] ropinirole [Requip] 4 mg PO QHS 03/10/14 [History Last Taken 05/07/19] valacyclovir [Valtrex] 500 mg PO QHS 12/06/16 [History Last Taken 05/07/19] Zyrtec 10 mg PO QHS 01/22/17 [History Last Taken 05/07/19] cholecalciferol (vitamin D3) 2,000 unit PO DAILY 05/08/19 [History Last Taken 05/07/19] ondansetron 4 mg PO Q8H PRN PRN #10 tab 10/15/19 [Rx Last Taken Unknown] albuterol sulfate 2 puff INHALATION Q4H PRN PRN 10/30/19 [History Last Taken Unknown] ferrous sulfate 325 mg PO DAILY 10/30/19 [History Last Taken Unknown] fluticasone propionate 1 puff INHALATION BID 10/30/19 [History Last Taken Unknown] magnesium 30 mg PO DAILY 10/30/19 [History Last Taken Unknown] metoprolol succinate 25 mg PO DAILY 10/30/19 [History Last Taken Unknown] ondansetron 4 mg PO Q6H PRN PRN 10/30/19 [History Last Taken Unknown] omeprazole 40 mg capsule,delayed release 40 mg PO DAILY 07/26/20 [History Last Taken Unknown] hydrocodone-acetaminophen 1 tab PO Q6H PRN PRN 3 Days #10 tablet 07/30/20 [Rx L ast Taken Unknown] hydrocodone-acetaminophen 1 tab PO Q4H PRN PRN 2 Days #14 tablet 08/11/20 [Rx Last Taken Unknown] Allergy/AdvReac Type Severity Reaction Status Date / Time hydromorphone HCl Allergy Chest Verified 08/11/20 15:24 [From Dilaudid] tightness warfarin sodium Allergy Chest Verified 08/11/20 15:24 [From Coumadin] tightness milnacipran HCl AdvReac Other Verified 08/11/20 15:24 [From Savella] pregabalin [From Lyrica] AdvReac Rash Verified 08/11/20 15:24 rivaroxaban [From Xarelto] AdvReac Nausea Verified 08/11/20 15:24 Family History Mother Hypertension Hyperlipidemia alcohol/drug addiction Allergies Father alcohol/drug addiction Sister Thyroid disorder Fibromyalgia Blindness Grandmother Emphysema lung Heart disease Grandfather Emphysema lung Brother alcohol/drug addiction Surgical History History of bilateral breast reduction surgery History of bilateral salpingectomy History of carpal tunnel release History of esophagogastroduodenoscopy (EGD) History of laparoscopic cholecystectomy History of laparoscopic-assisted vaginal hysterectomy History of tubal ligation Hx of colonoscopy S/P foot surgery, left Social History Smoking Status: Never smoker alcohol intake: former what type of physical activity do you participate in: walking seatbelt use: always do you feel safe at home: Yes additional social history: single- unemployed ROS ROS ED Constitutional Constitutional ED: Reports systems reviewed and no addt'l complaints, except as documented; Denies body ache(s), change in weight or chills Eyes Eyes: Denies acute decrease in peripheral vision, change in vision, double vision or loss of vision ENT ENT ED: Reports none; Denies ear pain, lip swelling, loss taste/smell, neck pain, otalgia or sore throat Cardiovascular Cardiovascular: Reports none; Denies abdominal pain, chest pain with activity, leg edema, lightheadedness, palpitations, rapid heart rate or syncope Respiratory/Chest Respiratory/Chest: Reports none; Denies change in mental status, dry cough, dyspnea, hemoptysis, shortness of breath at rest or shortness of breath with exertion Gastrointestinal Gastrointestinal: Reports none; Denies abdominal pain, change in stool character, diarrhea, hematemesis, hematochezia, melena, rectal bleeding or vomiting Genitourinary Genitourinary ED: Reports none; Denies abdominal discomfort, anuria, dysuria, genital pain or polyuria Musculoskeletal Musculoskeletal: Reports none and other Details: Left elbow pain ; Denies arthr algias, back pain, difficulty walking, extremity pain, muscle weakness or myalgias Integumentary Reports none; Denies abscess or rash Neurologic Neurologic: Reports none; Denies abnormal gait, confusion, focal weakness, frequent falls, headache(s), loss of vision, numbness, paresthesias, radicular pain, vertigo or weakness Psychiatric Psychiatric: Reports systems reviewed and no addt'l complaints, except as documented and none; Denies behavioral changes, confusion, difficulty concentrating, hallucinations, suicidal ideation, tactile hallucinations or visual hallucinations Endocrine Endocrinology: Denies none, cold intolerance, excessive sweating, fatigue or heat intolerance Hematologic/Lymphatic Hematologic/Lymphatic: Reports none; Denies anemia, easy bleeding or easy bruising Allergic/Immunologic Allergic/Immunologic ED: Denies as per HPI, none, lip swelling, mouth swelling, throat swelling, tongue swelling or hives EXAM Physical Exam Const Vital Signs: 08/11/20 15:22 Temperature 97.3 F L Temperature Source Temporal Pulse Rate 79 Respiratory Rate 16 Blood Pressure 157/89 H Blood Pressure Mean 111 Pulse Ox 98 Oxygen Delivery Method Room Air Positive well nourished and well developed General Appearance ED: well developed and NAD HEENT Reports TM's clear and moist mucous membranes normocephalic and atraumatic; Negative for trauma or tenderness Tympanic Membrane ED: Yes TM's clear Eyes PERRL and EOMs intact bilaterally General Eye ED: Negative for pale conjunctiva or scleral icterus Neck no lymphadenopathy, supple and no JVD General: Negative for tenderness Chest Wall inspection of chest normal and palpation of chest normal Chest: Negative for tenderness Resp normal respiratory effort and clear to auscultation bilaterally Effort and Inspection: Negative for respiratory distress or pain with movement Auscultation: Negative for rhonchi, wheezes or diminished lung sounds Cardio regular rate, regular rhythm, S1 normal heart sound, S2 normal heart sound and no murmurs Peripheral Pulses: pulses 2+ throughout GI normal to inspection, nondistended, normoactive bowel sounds, soft to palpation, non-tender, non-distended and no masses Back/Spine no CVA tenderness and no thoracic nor lumbar tenderness Extremity Extremity Narrative: I have appreciate any significant edema at the elbow or the left arm compared to the right. Patient does have diffuse tenderness about the elbow. She has pain with range of motion at the elbow. She is neurovascular intact distally. There is no ecchymosis or bruising. There is no erythema or cellulitis. General Extremety ED: Negative for edema General Extremity: Negative for edema Neuro oriented x3, CN's II-XII intact bilaterally, no sensory deficits noted and gait normal Sensorium / Orientation: awake, alert, oriented to person, oriented to place and oriented to time Motor Exam: strength 5/5 throughout and strength abnormal Psych mental status grossly normal Skin no rashes or lesions noted and no wounds MDM MDM MDM Narrative Medical decision making narrative: Patient had a venous duplex of the left upper extremity that was negative for DVT. At this point I suspect ligamentous or musculoskeletal injury of the left elbow. She understands I can get an emergent MRI from the emergency department. She will continue to pursue her appeal with the insurance company. She will follow up with orthopedics. She will be given a prescription for few [place] for pain. Lab Data Attestation: I reviewed the patient's lab results. Discharge Plan Triage Chief Complaint: Upper Extremity Injury ED Provider: Angela Millard Dx/Rx/DC Orders Clinical Impression: Elbow pain, left Instructions: ED Sprain, Elbow, ED Pain, Acute, Uncertain Cause Prescriptions: New hydrocodone-acetaminophen [hydrocodone-acetaminophen] 1 TABLET tablet 1 tab PO Q4H PRN PRN (Reason: Pain) 2 Days Qty: 14 RF: 0 No Action omeprazole 40 mg capsule,delayed release(DR/EC) 40 mg PO DAILY RF: 0 duloxetine 60 MG capsule 30 mg PO QHS RF: 0 ropinirole [Requip] 4 MG tablet 4 mg PO QHS RF: 0 valacyclovir [Valtrex] 500 MG tablet 500 mg PO QHS RF: 0 Zyrtec 10 MG capsule 10 mg PO QHS RF: 0 cholecalciferol (vitamin D3) 2,000 UNIT capsule 2,000 unit PO DAILY RF: 0 ondansetron 4 MG tablet 4 mg PO Q8H PRN PRN (Reason: Nausea) Qty: 10 RF: 0 ferrous sulfate 325 MG tablet 325 mg PO DAILY RF: 0 metoprolol succinate 25 MG tablet extended release 24 hr 25 mg PO DAILY RF: 0 albuterol sulfate 1 INHALER inhaler 2 puff inhalation Q4H PRN PRN (Reason: Wheezing) RF: 0 magnesium 30 MG tablet 30 mg PO DAILY RF: 0 fluticasone propionate 1 INHALER inhaler 1 puff inhalation BID RF: 0 ondansetron 4 MG tablet 4 mg PO Q6H PRN PRN (Reason: Nausea) RF: 0 hydrocodone-acetaminophen [hydrocodone-acetaminophen] 1 TABLET tablet 1 tab PO Q6H PRN PRN (Reason: Pain) 3 Days Qty: 10 RF: 0 Primary Care Provider: Tang Olguin Referrals: Charlie Ramires MD [NON-STAFF] - 3-5 Days Tang Olguin DO [Primary Care Provider] - Disposition Disposition: Home, self care
== END 2020-08-11 16:24 | disposition home or self-care (01) ==
PROVIDERS: Emergency Provider Emergency Medicine; PCP Student in an Organized Health Care Education/Training Program
DX: M25.522 Pain in left elbow (principal); Z56.0 Unemployment, unspecified; I10 Essential (primary) hypertension; E78.00 Pure hypercholesterolemia, unspecified; M06.9 Rheumatoid arthritis, unspecified
CPT/HCPCS: 93971; 99283

== ENCOUNTER 2020-12-21 07:51 | Emergency (ER) | payer MEDICAID, SELFPAY ==
[2020-12-21 07:52] VITALS: BP 126/102; PULSE 72; RESP 20; TEMP 36.6; O2SAT 100; BMI 44.4
--- NOTE | 2020-12-21 07:58 | RAD_ITS ---
STUDY: X-RAY CHEST REASON FOR EXAM: Female, 50 years old. Cough and shortness of breath. TECHNIQUE: Single AP portable view of the chest. COMPARISON: Comparison is made with prior study dated 06/25/2019. FINDINGS: The lungs are clear and expanded. There is no demonstrated pleural abnormality. Normal size heart. Normal mediastinum and sagar. Normal visualized pulmonary arteries. Normal visualized aortic arch and descending thoracic aorta. Normal visualized thoracic spine. Normal visualized ribs, clavicles, and shoulders. There is no demonstrated abnormality of the visualized soft tissue structures of the upper abdomen. RAD/Chest 1 View (Portable) IMPRESSION: Normal x-ray examination of the chest. Electronically Signed: Colby Cruz MD at 8:53 EDT , Service support ,
--- NOTE | 2020-12-21 08:03 | EX.ED.DYSGE1 ---
HPI History of Present Illness Chief Complaint: Cough Informant: patient Narrative Narrative: 50-year-old female presenting with cough, body aches. She states her symptoms started 4 days ago. She has multiple sick contacts at work who have tested positive for Covid. She is not vaccinated. She had an episode of posttussive emesis. She has had subjective fever and chills. She has mild shortness of breath when coughing. Recent Illness/Hospitalization: No PFSH PFSH Medical History Anxiety Aortic aneurysm Calcaneal spur Carpal tunnel syndrome Colon polyps Delivery with history of Depressive disorder Diaphragmatic hernia without mention of obstruction or gangrene DVT (deep venous thrombosis) Endometriosis Fibromyalgia muscle pain GERD (gastroesophageal reflux disease) Hayfever HSV infection HTN (hypertension) Hypercholesteremia Impaired fasting glucose Patellofemoral disorder PTSD (post-traumatic stress disorder) r middle trigger finger release Rheumatoid arthritis Right hand paresthesia Seizures Temporomandibular joint disorder Trigger middle finger of right hand Trigger ring finger of right hand uterine ablation Vitamin D deficiency Home Medications duloxetine 30 mg PO QHS 03/02/13 [History Last Taken 05/07/19] ropinirole [Requip] 4 mg PO QHS 03/10/14 [History Last Taken 05/07/19] valacyclovir [Valtrex] 500 mg PO QHS 12/06/16 [History Last Taken 05/07/19] Zyrtec 10 mg PO QHS 01/22/17 [History Last Taken 05/07/19] cholecalciferol (vitamin D3) 2,000 unit PO DAILY 05/08/19 [History Last Taken 05/07/19] ondansetron 4 mg PO Q8H PRN PRN #10 tab 10/15/19 [Rx Last Taken Unknown] albuterol sulfate 2 puff INHALATION Q4H PRN PRN 10/30/19 [History Last Taken Unknown] ferrous sulfate 325 mg PO DAILY 10/30/19 [History Last Taken Unknown] fluticasone propionate 1 puff INHALATION BID 10/30/19 [History Last Taken Unknown] magnesium 30 mg PO DAILY 10/30/19 [History Last Taken Unknown] metoprolol succinate 25 mg PO DAILY 10/30/19 [History Last Taken Unknown] ondansetron 4 mg PO Q6H PRN PRN 10/30/19 [History Last Taken Unknown] omeprazole 40 mg capsule,delayed release 40 mg PO DAILY 07/26/20 [History Last Taken Unknown] hydrocodone-acetaminophen 1 tab PO Q6H PRN PRN 3 Days #10 tablet 07/30/20 [Rx Last Taken Unknown] hydrocodone-acetaminophen 1 tab PO Q4H PRN PRN 2 Days #14 tablet 08/11/20 [Rx Last Taken Unknown] Allergy/AdvReac Type Severity Reaction Status Date / Time hydromorphone HCl Allergy Chest Verified 12/21/20 08:11 [From Dilaudid] tightness warfarin sodium Allergy Chest Verified 12/21/20 08:11 [From Coumadin] tightness milnacipran HCl AdvReac Other Verified 12/21/20 08:11 [From Savella] pregabalin [From Lyrica] AdvReac Rash Verified 12/21/20 08:11 rivaroxaban [From Xarelto] AdvReac Nausea Verified 12/21/20 08:11 Family History Mother Hypertension Hyperlipidemia alcohol/drug addiction Allergies Father alcohol/drug addiction Sister Thyroid disorder Fibromyalgia Blindness Grandmother Emphysema lung Heart disease Grandfather Emphysema lung Brother alcohol/drug addiction Surgical History History of bilateral breast reduction surgery History of bilateral salpingectomy History of carpal tunnel release History of esophagogastroduodenoscopy (EGD) History of laparoscopic cholecystectomy History of laparoscopic-assisted vaginal hysterectomy History of tubal ligation Hx of colonoscopy S/P foot surgery, left Social History Smoking Status: Never smoker alcohol intake: former what type of physical activity do you participate in: walking seatbelt use: always do you feel safe at home: Yes additional social history: single- unemployed ROS ROS ED Constitutional Constitutional ED: Denies fever(s) Eyes Eyes: Denies change in vision ENT ENT ED: Denies rhinorrhea or sore throat Cardiovascular Cardiovascular: Denies chest pain or palpitations Respiratory/Chest Respiratory/Chest: Reports cough and dyspnea Gastrointestinal Gastrointestinal: Reports nausea and vomiting; Denies abdominal pain or diarrhea Genitourinary Genitourinary ED: Denies dysuria Musculoskeletal Musculoskeletal: Reports myalgias Integumentary Denies rash Neurologic Neurologic: Denies headache(s) Psychiatric Psychiatric: Denies suicidal thoughts EXAM Physical Exam Const Vital Signs: 12/21/20 07:52 12/21/20 08:08 Temperature 97.8 F Temperature Source Temporal Pulse Rate 72 Respiratory Rate 20 H Respiratory Effort Normal Respiratory Depth Normal Respiratory Pattern Normal Blood Pressure 126/102 H Blood Pressure Mean 110 Pulse Ox 100 Oxygen Delivery Method Room Air Room Air Positive well nourished and well developed General Appearance ED: well developed HEENT Reports normocephalic and head/scalp atraumatic Eyes PERRL and EOMs intact bilaterally Neck supple General: Negative for tenderness Chest Wall inspection of chest normal Resp normal respiratory effort and clear to auscultation bilaterally Cardio regular rate and regular rhythm GI non-tender and non-distended Palpation: soft; Negative for guarding or rebound tenderness present no CVA tenderness Extremity normal to inspection Neuro oriented x3 Sensorium / Orientation: alert Psych mental status grossly normal MDM MDM MDM Narrative Medical decision making narrative: Covid is positive. Chest x-ray read by myself and radiology shows no acute process. Her pulse ox is 100% on room air. Advised signs and symptoms for which to return to the ED. Advised to social distance, quarantine, and wear a mask. Lab Data Attestation: I reviewed the patient's lab results. Radiography Diagnostic Testing: Clinical Impression(s) from Imaging Studies Chest X-Ray 12/21/20 07:58 IMPRESSION: Normal x-ray examination of the chest. Electronically Signed: Colby Cruz MD at 8:53 EDT , Service support , Discharge Plan Triage Chief Complaint: Cough ED Provider: Juany Sadnoval Dx/Rx/DC Orders Clinical Impression: COVID-19 Instructions: Coronavirus Disease 2019 (COVID-19): Overview Prescriptions: No Action omeprazole 40 mg capsule,delayed release(DR/EC) 40 mg PO DAILY RF: 0 duloxetine 60 MG capsule 30 mg PO QHS RF: 0 ropinirole [Requip] 4 MG tablet 4 mg PO QHS RF: 0 valacyclovir [Valtrex] 500 MG tablet 500 mg PO QHS RF: 0 Zyrtec 10 MG capsule 10 mg PO QHS RF: 0 cholecalciferol (vitamin D3) 2,000 UNIT capsule 2,000 unit PO DAILY RF: 0 ondansetron 4 MG tablet 4 mg PO Q8H PRN PRN (Reason: Nausea) Qty: 10 RF: 0 ferrous sulfate 325 MG tablet 325 mg PO DAILY RF: 0 metoprolol succinate 25 MG tablet extended release 24 hr 25 mg PO DAILY RF: 0 albuterol sulfate 1 INHALER inhaler 2 puff inhalation Q4H PRN PRN (Reason: Wheezing) RF: 0 magnesium 30 MG tablet 30 mg PO DAILY RF: 0 fluticasone propionate 1 INHALER inhaler 1 puff inhalation BID RF: 0 ondansetron 4 MG tablet 4 mg PO Q6H PRN PRN (Reason: Nausea) RF: 0 hydrocodone-acetaminophen [hydrocodone-acetaminophen] 1 TABLET tablet 1 tab PO Q6H PRN PRN (Reason: Pain) 3 Days Qty: 10 RF: 0 hydrocodone-acetaminophen [hydrocodone-acetaminophen] 1 TABLET tablet 1 tab PO Q4H PRN PRN (Reason: Pain) 2 Days Qty: 14 RF: 0 Primary Care Provider: Tang Olguin Referrals: Tang Olguin DO [Primary Care Provider] - Disposition Disposition: Home, Self Care
[2020-12-21 08:08] VITALS: O2SAT 100
[2020-12-21 09:30] VITALS: BP 138/69; PULSE 89; RESP 18; TEMP 37.2; O2SAT 98
== END 2020-12-21 09:31 | disposition home or self-care (01) ==
PROVIDERS: Emergency Provider Emergency Medicine; PCP Student in an Organized Health Care Education/Training Program
DX: U07.1 COVID-19 (principal); E78.00 Pure hypercholesterolemia, unspecified; F32.A Depression, unspecified; F43.10 Post-traumatic stress disorder, unspecified; I10 Essential (primary) hypertension; K21.9 Gastro-esophageal reflux disease without esophagitis; M06.9 Rheumatoid arthritis, unspecified; Z56.0 Unemployment, unspecified; Z79.01 Long term (current) use of anticoagulants; Z79.899 Other long term (current) drug therapy
CPT/HCPCS: 71045; 87426; 99282

== ENCOUNTER 2021-03-23 12:34 | Outpatient (CLI) | payer MEDICAID, SELFPAY ==
--- NOTE | 2021-03-23 12:38 | BI_ITS ---
MAMMOGRAPHY - BILATERAL SCREENING REASON FOR EXAM: Female, 50 years old. Routine annual screening examination. PERTINENT HISTORY: Non-contributory. Prior bilateral breast reduction surgery. TECHNIQUE: Digital bilateral breast graeme (3D mammographic acquisition) in the CC and MLO projections. 2-D mediolateral oblique (MLO) and craniocaudad (CC) views of both breasts were obtained. CAD: Full Field Digital Mammography with Computer Added Detection was performed. COMPARISON: Comparison is made with prior abdomen examination dated 01/16/2019. FINDINGS: Breast Composition: There are scattered areas of fibroglandular density. There are no dominant masses or suspicious calcifications. No other significant abnormalities are identified. There has been no significant change since the prior study. BI/SCRN MAMM (CAD)W/GRAEME BILAT IMPRESSION: Stable bilateral screening mammogram. Yearly follow-up mammogram recommended. (A) ASSESSMENT CATEGORY: BIRADS Category 1: Negative. A letter regarding these results will be sent to the patient by the facility within 30 days. Approximately 10% of breast cancers are not detected by mammography. A normal mammogram should not delay biopsy of a clinically suspicious abnormality. [id number] Electronically Signed: Colby Cruz MD at 13:49 EST , Service support ,
== END 2021-03-23 23:59 | disposition short-term general hospital (02) ==
PROVIDERS: PCP Student in an Organized Health Care Education/Training Program; Referring Provider Obstetrics & Gynecology; Visit Provider Obstetrics & Gynecology
DX: Z12.31 Encounter for screening mammogram for malignant neoplasm of breast (principal)
CPT/HCPCS: 77063; 77067

== ENCOUNTER 2021-06-09 16:53 | Outpatient (CLI) | payer MEDICAID, SELFPAY | END 2021-06-09 23:59 | disposition home or self-care (01) | PROVIDERS: PCP Student in an Organized Health Care Education/Training Program; Visit Provider Otolaryngology | DX: Z11.59 Encounter for screening for other viral diseases (principal); Z03.818 Encounter for observation for suspected exposure to other biological agents ruled out | CPT/HCPCS: 87635; U0003; U0005 ==

== ENCOUNTER 2021-06-10 07:23 | Outpatient (CLI) | payer MEDICAID, SELFPAY ==
--- NOTE | 2021-06-10 07:27 | EKG12_ITS ---
Test Reason : PRE OP Blood Pressure : / mmHG Vent. Rate : 075 BPM Atrial Rate : 075 BPM P-R Int : 158 ms QRS Dur : 074 ms QT Int : 372 ms P-R-T Axes : 042 000 035 degrees QTc Int : 415 ms Normal sinus rhythm Normal ECG Confirmed by DANIELLE NAVARRO, [place] ([id number]), desk editor DAMARI PACK ([id number]) on 06/10/2021 2:22:20 PM Referred By: Ck Parker Confirmed By:DENNIS SANTOS MD
[2021-06-10 08:05] LABS: Hematocrit 40.9 % (37-47); Hemoglobin 13.5 g/dL (12.0-15.0); Mean Corpuscular Hgb 27.7 pg (27.0-32.0); Mean Corpuscular Volume 83.8 fL (81-99); Mean Platelet Vol. 9.8 fl (6.2-12.0); Platelet Count 255 K/mm3 (150-450); RBC Distribution Width CV 13.8 % (11.6-14.6); RBC Distribution Width SD 42.1 fl (35.1-43.9); Red Blood Count 4.88 M/mm3 (4.2-5.4); White Blood Count 8.6 K/mm3 (4.4-11.0)
[2021-06-10 08:31] LABS: Anion Gap 4 (5-15); BUN 12 mg/dL (7-18); BUN/Creat Ratio 15.1 RATIO (10-20); Chloride 104 mmol/L (98-107); EST Glomerular Filtration Rate 81 mL/min (>60); Est Glom Filt Rate - Afr Amer 98 mL/min (>60); Glucose 108 mg/dL (74-106); Potassium 4.3 mmol/L (3.5-5.1); Sodium Level 137 mmol/L (136-145)
== END 2021-06-10 23:59 | disposition home or self-care (01) ==
PROVIDERS: PCP Student in an Organized Health Care Education/Training Program; Referring Provider Otolaryngology; Visit Provider Otolaryngology
DX: Z01.812 Encounter for preprocedural laboratory examination (principal)
CPT/HCPCS: 36415; 80048; 85027; 93005

== ENCOUNTER 2021-06-26 17:18 | Emergency (ER) | payer MEDICAID, SELFPAY ==
[2021-06-26 17:19] VITALS: BP 133/92; PULSE 73; RESP 15; TEMP 37.2; O2SAT 99; BMI 44.2
--- NOTE | 2021-06-26 17:35 | EX.ED.DYSGE1 ---
HPI History of Present Illness Chief Complaint: Flank Pain Informant: patient Onset/Context/Timing Onset: Today and Hours (2) Context: Gradual Onset Timing: Continuous Quality: Sharp, aching Location: Left flank Worsened by: Nothing Relieved by: Nothing Narrative Narrative: Patient presents with left flank pain that began today. Patient states it began approximately 2 hours prior to arrival. Patient states it is gradually getting worse. Patient states it is constant. Patient describes the pain as sharp and aching. Patient states the pain is over the left flank and radiates into the abdomen. Patient states nothing makes it worse and nothing makes it better. Patient admits to nausea but denies any vomiting. Patient denies any dysuria or hematuria. Patient denies any fevers or chills. PFSH [facility] Medical History Anxiety Aortic aneurysm Calcaneal spur Carpal tunnel syndrome Colon polyps Delivery with history of Depressive disorder Diaphragmatic hernia without mention of obstruction or gangrene DVT (deep venous thrombosis) Endometriosis Fibromyalgia muscle pain GERD (gastroesophageal reflux disease) Hayfever HSV infection HTN (hypertension) Hypercholesteremia Impaired fasting glucose Patellofemoral disorder PTSD (post-traumatic stress disorder) r middle trigger finger release Rheumatoid arthritis Right hand paresthesia Seizures Temporomandibular joint disorder Trigger middle finger of right hand Trigger ring finger of right hand uterine ablation Vitamin D deficiency Home Medications duloxetine 30 mg PO QHS 03/02/13 [History Last Taken 05/07/19] ropinirole [Requip] 4 mg PO QHS 03/10/14 [History Last Taken 05/07/19] valacyclovir [Valtrex] 500 mg PO QHS 12/06/16 [History Last Taken 05/07/19] Zyrtec 10 mg PO QHS 01/22/17 [History Last Taken 05/07/19] cholecalciferol (vitamin D3) 2,000 unit PO DAILY 05/08/19 [History Last Taken 05/07/19] ondansetron 4 mg PO Q8H PRN PRN #10 tab 10/15/19 [Rx Last Taken Unknown] albuterol sulfate 2 puff INHALATION Q4H PRN PRN 10/30/19 [History Last Taken Unknown] ferrous sulfate 325 mg PO DAILY 10/30/19 [History Last Taken Unknown] fluticasone propionate 1 puff INHALATION BID 10/30/19 [History Last Taken Unknown] magnesium 30 mg PO DAILY 10/30/19 [History Last Taken Unknown] metoprolol succinate 25 mg PO DAILY 10/30/19 [History Last Taken Unknown] ondansetron 4 mg PO Q6H PRN PRN 10/30/19 [History Last Taken Unknown] omeprazole 40 mg capsule,delayed release 40 mg PO DAILY 07/26/20 [History Last Taken Unknown] hydrocodone-acetaminophen 1 tab PO Q6H PRN PRN 3 Days #10 tablet 07/30/20 [Rx Last Taken Unknown] hydrocodone-acetaminophen 1 tab PO Q4H PRN PRN 2 Days #14 tablet 08/11/20 [Rx Last Taken Unknown] Allergy/AdvReac Type Severity Reaction Status Date / Time hydromorphone HCl Allergy Chest Verified 06/26/21 17:22 [From Dilaudid] tightness warfarin sodium Allergy Chest Verified 06/26/21 17:22 [From Coumadin] tightness milnacipran HCl AdvReac Other Verified 06/26/21 17:22 [From Savella] pregabalin [From Lyrica] AdvReac Rash Verified 06/26/21 17:22 rivaroxaban [From Xarelto] AdvReac Nausea Verified 06/26/21 17:22 Family History Mother Hypertension Hyperlipidemia alcohol/drug addiction Allergies Father alcohol/drug addiction Sister Thyroid disorder Fibromyalgia Blindness Grandmother Emphysema lung Heart disease Grandfather Emphysema lung Brother alcohol/drug addiction Surgical History History of bilateral breast reduction surgery History of bilateral salpingectomy History of carpal tunnel release History of esophagogastroduodenoscopy (EGD) History of laparoscopic cholecystectomy History of laparoscopic-assisted vaginal hysterectomy History of tubal ligation Hx of colonoscopy S/P foot surgery, left Social History Smoking Status: Never smoker alcohol intake: former what type of physical activity do you participate in: walking seatbelt use: always do you feel safe at home: Yes additional social history: single- unemployed ROS ROS ED Constitutional Constitutional ED: Denies chills or fever(s) Eyes Eyes: Denies blurry vision or change in vision ENT ENT ED: Denies rhinorrhea or sore throat Cardiovascular Cardiovascular: Denies chest pain or palpitations Respiratory/Chest Respiratory/Chest: Denies cough or dyspnea Gastrointestinal Gastrointestinal: Reports nausea; Denies vomiting Genitourinary Genitourinary ED: Denies dysuria or hematuria Musculoskeletal Musculoskeletal: Reports back pain; Denies neck pain Integumentary Denies abscess or rash Neurologic Neurologic: Denies headache(s) or weakness Allergic/Immunologic Allergic/Immunologic ED: Denies mouth swelling or urticaria EXAM Physical Exam Const Vital Signs: 06/26/21 17:19 06/26/21 17:49 Temperature 99 F Temperature Source Temporal Pulse Rate 73 Respiratory Rate 15 Respiratory Pattern Normal Blood Pressure 133/92 H Blood Pressure Mean 105 Pulse Ox 99 Oxygen Delivery Method Room Air Positive well nourished, well developed and obese General Appearance ED: well developed and NAD Nutritional Appearance: obese HEENT Reports moist mucous membranes Neck supple and no JVD Resp normal respiratory effort and clear to auscultation bilaterally Cardio regular rate, regular rhythm and no murmurs GI normal to inspection, nondistended, normoactive bowel sounds and non-tender Palpation: soft Back/Spine General Back: CVA tenderness left Extremity normal to inspection General Extremety ED: Negative for edema or tenderness General Extremity: Negative for edema Neuro oriented x3, CN's II-XII intact bilaterally and no sensory deficits noted Sensorium / Orientation: alert Motor Exam: strength 5/5 throughout Psych mental status grossly normal Skin no rashes or lesions noted MDM MDM MDM Narrative Medical decision making narrative: Patient was given IV fluids, morphine, and Zofran here. CBC was within normal limits. Comprehensive metabolic profile was within normal limits. Urinalysis does not show any evidence of urinary tract infection or hematuria. CT scan of the abdomen pelvis was obtained. There is a 4.1 cm cyst in the right adnexa. There are bilateral renal calculi noted. There is no obstructive uropathy noted. There is stool throughout the colon. This was interpreted by the radiologist and reviewed by myself. Patient was advised of her findings. Patient was instructed to drink plenty of fluids. Patient was instructed to follow-up with her primary care physician in 3 to 5 days. Patient understood and was agreeable with the plan. All questions were answered. Lab Data Labs: Laboratory Results - last 24 hr 06/26/21 06/26/21 06/26/21 18:25 18:25 18:30 WBC 9.1 RBC 4.41 Hgb 12.1 Hct 37.3 MCV 84.6 MCH 27.4 MCHC 32.4 RDW Std Deviation 41.1 RDW Coeff of [place] 13.3 Plt Count 272 MPV 9.7 Immature Gran % (Auto) 0.400 Neut % (Auto) 65.5 Lymph % (Auto) 26.1 [place] % (Auto) 6.1 Eos % (Auto) 1.3 Baso % (Auto) 0.6 Absolute Neuts (auto) 5.9 Absolute Lymphs (auto) 2.37 Nucleated RBC % 0 Sodium 140 Potassium 4.2 Chloride 109 H Carbon Dioxide 26.0 Anion Gap 5 BUN 12 Creatinine 1.03 H Estim Creat Clear Calc 51.68 Est GFR (MDRD) Af Amer 73 Est GFR (MDRD) Non-Af 60 BUN/Creatinine Ratio 11.7 Glucose 105 Calcium 8.4 L Total Bilirubin 0.10 L AST 18 ALT 32 Alkaline Phosphatase 121 H Total Protein 6.9 Albumin 2.8 L Globulin 4.1 Albumin/Globulin Ratio 0.7 L Urine Color Yellow Urine Clarity Clear Urine pH 8.0 Ur Specific [place] 1.015 Urine Protein Negative Urine Glucose (UA) Normal Urine Ketones Negative Urine Occult Blood Negative Urine Nitrite Negative Urine Bilirubin Negative Urine Urobilinogen Normal Ur Leukocyte Esterase Negative Urine RBC 0 SEEN Urine WBC 0 SEEN Ur Squamous Epith Cells 0 SEEN Urine Bacteria 0 SEEN Urine Mucus 0 SEEN Radiography Diagnostic Testing: Clinical Impression(s) from Imaging Studies Abdomen/Pelvis CT 06/26/21 17:38 IMPRESSION: Punctate nonobstructing stones in the bilateral kidneys. A 4.1 cm cystic area in the right adnexa, amenable to further evaluation by ultrasound. Electronically Signed: Yony Winslow MD at 19:25 EDT , Discharge Plan Triage Chief Complaint: Flank Pain ED Provider: Hardeep Mascorro Dx/Rx/DC Orders Clinical Impression: Left flank pain, Ovarian cyst, Obesity, Class III, BMI 40-49.9 (morbid obesity) Instructions: ED Flank Pain, Uncertain Cause, ED Ovarian Cyst Prescriptions: No Action omeprazole 40 mg capsule,delayed release(DR/EC) 40 mg PO DAILY RF: 0 duloxetine 60 MG capsule 30 mg PO QHS RF: 0 ropinirole [Requip] 4 MG tablet 4 mg PO QHS RF: 0 valacyclovir [Valtrex] 500 MG tablet 500 mg PO QHS RF: 0 Zyrtec 10 MG capsule 10 mg PO QHS RF: 0 cholecalciferol (vitamin D3) 2,000 UNIT capsule 2,000 unit PO DAILY RF: 0 ondansetron 4 MG tablet 4 mg PO Q8H PRN PRN (Reason: Nausea) Qty: 10 RF: 0 ferrous sulfate 325 MG tablet 325 mg PO DAILY RF: 0 metoprolol succinate 25 MG tablet extended release 24 hr 25 mg PO DAILY RF: 0 albuterol sulfate 1 INHALER inhaler 2 puff inhalation Q4H PRN PRN (Reason: Wheezing) RF: 0 magnesium 30 MG tablet 30 mg PO DAILY RF: 0 fluticasone propionate 1 INHALER inhaler 1 puff inhalation BID RF: 0 ondansetron 4 MG tablet 4 mg PO Q6H PRN PRN (Reason: Nausea) RF: 0 hydrocodone-acetaminophen [hydrocodone-acetaminophen] 1 TABLET tablet 1 tab PO Q6H PRN PRN (Reason: Pain) 3 Days Qty: 10 RF: 0 hydrocodone-acetaminophen [hydrocodone-acetaminophen] 1 TABLET tablet 1 tab PO Q4H PRN PRN (Reason: Pain) 2 Days Qty: 14 RF: 0 Primary Care Provider: Tang Olguin Referrals: Tang Olguin DO [Primary Care Provider] - 3-5 Days Disposition Disposition: Home, Self Care
--- NOTE | 2021-06-26 17:38 | CT_ITS ---
STUDY: CT ABDOMEN AND PELVIS WITHOUT CONTRAST REASON FOR EXAM: Female, 51 years old. Left flank pain RADIATION DOSAGE (If Supplied By Facility): CTDIvol = ( 22.10 ) mGy, DLP = ( 1104.18 ) mGycm TECHNIQUE: Transaxial images were obtained from the dome of the diaphragm to the symphysis pubis without oral contrast, and without intravenous contrast. Sagittal and coronal images were reconstructed. Individualized dose optimization techniques were used for this CT. COMPARISON: 02/10/2020 FINDINGS: Lung bases clear. Unremarkable liver, spleen, pancreas, and adrenals on this unenhanced study. Gallbladder not seen and likely removed. A few punctate nonobstructing stones in the bilateral kidneys. No radiopaque stone in the ureters and the urinary bladder. Normal appendix. Moderate amount of retained stool throughout the colon with no evidence of bowel obstruction. No free air or free fluid. No adenopathy. No abdominal aortic aneurysm. Sections through the pelvis demonstrate an approximately 4.1 cm cystic area in the right adnexa. There is no radiopaque stone in the urinary bladder. Mild multilevel lumbar spondylosis and mild levoscoliosis. Mild osteoarthritis of the bilateral hip joints. Bone island in the right femoral head. CT/Abdomen/Pelvis without Cont IMPRESSION: Punctate nonobstructing stones in the bilateral kidneys. A 4.1 cm cystic area in the right adnexa, amenable to further evaluation by ultrasound. Electronically Signed: Yony Winslow MD at 19:25 EDT ,
[2021-06-26] MEDS: Ondansetron 4 MG/2 ML Vial IV (18:29)
[2021-06-26] MEDS: 0.9% Normal Saline 1,000 ML 1000 ML IV (18:29)
[2021-06-26] MEDS: Morphine 4 MG/ML Syringe IV (18:29)
[2021-06-26 18:32] LABS: Absolute Lymphocyte Count 2.37 X10^3/uL (0.83-4.51); Absolute Neutrophil Count 5.9 X10^3/uL (2.0-7.7); Basophil# 0.05 X10^3/uL; Basophil% 0.6 % (0-1); Eosinophil# 0.12 X10^3/uL; Eosinophils% 1.3 % (0-5); Hematocrit 37.3 % (37-47); Hemoglobin 12.1 g/dL (12.0-15.0); Lymphocyte # 2.37 X10^3/ul (0.83-4.51); Lymphocyte % 26.1 % (19-41); Mean Corp Hgb Conc 32.4 g/dL (32-36); Mean Corpuscular Hgb 27.4 pg (27.0-32.0); Mean Corpuscular Volume 84.6 fL (81-99); Mean Platelet Vol. 9.7 fl (6.2-12.0); Monocyte# 0.55 X10^3/uL; Monocyte% 6.1 % (0-10); NRBC Flagged by Analyzer 0 % (0-5); Neutrophil # 5.94 X10^3/uL (2.7-7.7); Neutrophil % 65.5 % (47-70); Platelet Count 272 K/mm3 (150-450); RBC Distribution Width CV 13.3 % (11.6-14.6); RBC Distribution Width SD 41.1 fl (35.1-43.9); Red Blood Count 4.41 M/mm3 (4.2-5.4); White Blood Count 9.1 K/mm3 (4.4-11.0)
[2021-06-26 18:44] LABS: Bacteria 0 SEEN /hpf (None Seen); Mucous, Urine 0 SEEN /hpf (<or=2+); Red Blood Cells-Urine 0 SEEN /hpf (0-5); Squamous Epithelial Cells - UA 0 SEEN /hpf (5-10); White Blood Cells 0 SEEN /hpf (0-5)
[2021-06-26 18:47] LABS: Color, Urine Yellow (Yellow); Glucose, Dipstick Normal (Normal); Ketone-Dipstick Negative (Negative); Leukocyte Esterase-Dipstick Negative /ul (Negative); Nitrite-Dipstick Negative (Negative); Occult Blood-Urine Negative /ul (Negative); Protein-Dipstick Negative (Negative); Specific Gravity, Urine 1.015 (1.002-1.030); Urine Bilirubin Dipstick Negative (Negative); Urine Clarity Clear (Clear); Urine Urobilinogen Normal (Normal)
[2021-06-26 18:47] LABS: ALB/GLOB Ratio 0.7 RATIO (0.9-2.4); AST(SGOT) 18 U/L (15-37); Alanine Aminotransfer ALT/SGPT 32 U/L (13-56); Albumin, Serum 2.8 g/dL (3.2-5.0); Alkaline Phosphatase 121 U/L (45-117); Anion Gap 5 (5-15); BUN 12 mg/dL (7-18); BUN/Creat Ratio 11.7 RATIO (10-20); Calcium,Total 8.4 mg/dL (8.5-10.1); Chloride 109 mmol/L (98-107); Creatinine, Serum 1.03 mg/dL (0.55-1.02); EST Glomerular Filtration Rate 60 mL/min (>60); Est Glom Filt Rate - Afr Amer 73 mL/min (>60); Estimated Creatinine Clearance 51.68 ml/min; Globulin 4.1 g/dL (2.2-4.2); Glucose 105 mg/dL (74-106); Potassium 4.2 mmol/L (3.5-5.1); Protein, Total 6.9 g/dL (6.4-8.2); Sodium Level 140 mmol/L (136-145)
[2021-06-26 20:00] VITALS: BP 126/78; PULSE 88; RESP 16; O2SAT 98
[2021-06-26 20:19] VITALS: BP 124/78; PULSE 66; RESP 16; TEMP 36.9; O2SAT 98
== END 2021-06-26 20:21 | disposition home or self-care (01) ==
PROVIDERS: Emergency Provider Emergency Medicine; PCP Student in an Organized Health Care Education/Training Program; Visit Provider Emergency Medicine
DX: R10.9 Unspecified abdominal pain (principal); E66.01 Morbid (severe) obesity due to excess calories; Z68.41 Body mass index [BMI] 40.0-44.9, adult; I10 Essential (primary) hypertension; N83.209 Unspecified ovarian cyst, unspecified side; N20.0 Calculus of kidney; E78.00 Pure hypercholesterolemia, unspecified; R11.0 Nausea
CPT/HCPCS: 74176; 80053; 81001; 85025; 99284; J2405

== ENCOUNTER → 2021-10-19 | Outpatient (CLI) | payer MEDICAID, SELFPAY ==
[2021-10-19 17:27] LABS: Absolute Neutrophil Count 4.3 X10^3/uL (2.0-7.7); Basophil# 0.01 X10^3/uL; Basophil% 0.2 % (0-1); Hemoglobin 13.3 g/dL (12.0-15.0); Lymphocyte % 21.3 % (19-41); Mean Corp Hgb Conc 32.4 g/dL (32-36); Mean Corpuscular Hgb 27.4 pg (27.0-32.0); Mean Corpuscular Volume 84.5 fL (81-99); Mean Platelet Vol. 10.2 fl (6.2-12.0); Monocyte# 0.47 X10^3/uL; Monocyte% 7.7 % (0-10); NRBC Flagged by Analyzer 0 % (0-5); Neutrophil # 4.31 X10^3/uL (2.7-7.7); Neutrophil % 70.5 % (47-70); Platelet Count 250 K/mm3 (150-450); RBC Distribution Width CV 14.6 % (11.6-14.6); RBC Distribution Width SD 44.3 fl (35.1-43.9); Red Blood Count 4.85 M/mm3 (4.2-5.4); White Blood Count 6.1 K/mm3 (4.4-11.0)
[2021-10-19 17:34] LABS: Erythrocyte Sedimentation Rate 48 mm/hr (0-30)
[2021-10-19 17:57] LABS: ALB/GLOB Ratio 0.7 RATIO (0.9-2.4); AST(SGOT) 17 U/L (15-37); Alanine Aminotransfer ALT/SGPT 24 U/L (13-56); Albumin, Serum 3.2 g/dL (3.2-5.0); Alkaline Phosphatase 116 U/L (45-117); Amylase 48 U/L (25-115); Anion Gap 5 (5-15); BUN 11 mg/dL (7-18); Chloride 106 mmol/L (98-107); Creatinine, Serum 0.92 mg/dL (0.55-1.02); EST Glomerular Filtration Rate 69 mL/min (>60); Est Glom Filt Rate - Afr Amer 83 mL/min (>60); GGTP 61 U/L (5-55); Globulin 4.3 g/dL (2.2-4.2); Glucose 87 mg/dL (74-106); LDH 198 U/L (84-246); Lipase 70 U/L (73-393); Potassium 3.9 mmol/L (3.5-5.1); Protein, Total 7.5 g/dL (6.4-8.2); Sodium Level 137 mmol/L (136-145)
[2021-10-21 13:07] LABS: Anti-Centromere B Ab <0.2 AI (0.0-0.9); Anti-Chromatin <0.2 AI (0.0-0.9); Anti-Jo <0.2 AI (0.0-0.9); Anti-Scleroderma-70 AB <0.2 AI (0.0-0.9); RNP Ab 0.2 AI (0.0-0.9); SJOGREN'S Anti-SS-A test < 0.2 AI (0.0-0.9); SJOGREN'S Anti-SS-B test < 0.2 AI (0.0-0.9); Smith Ab <0.2 AI (0.0-0.9)
[2021-10-21 15:08] LABS: Endomysial Antibody IgA Negative (Negative); Immunoglobulin A 77 mg/dL (87-352)
[2021-10-21 17:14] LABS: t-Transglutaminase IgA <2 U/mL (0-3)
[2021-10-21 17:16] LABS: Anti-dsDNA Ab 1 IU/mL (0-9)
[2021-10-25 16:08] LABS: Albumin 3.3 g/dL (2.9-4.4); Alpha-1-Globulins 0.3 g/dL (0.0-0.4); Cytoplasmic Ab (C-ANCA) <1:20 titer (Neg:<1:20); Immunoglobulin A 79 mg/dL (87-352); Immunoglobulin E 3 IU/mL (6-495); Immunoglobulin G 1049 mg/dL (586-1602); Immunoglobulin M 120 mg/dL (26-217); PROEL- TOTAL PROTEIN 6.8 g/dL (6.0-8.5)
[2021-10-26 14:27] LABS: Perinuclear Ab (P-ANCA) <1:20 titer (Neg:<1:20)
== END | disposition home or self-care (01) ==
LOC: LAB 16:46
PROVIDERS: PCP Student in an Organized Health Care Education/Training Program; Referring Provider Nurse Practitioner Adult Health; Visit Provider Nurse Practitioner Adult Health
DX: R19.8 Other specified symptoms and signs involving the digestive system and abdomen (principal); R10.31 Right lower quadrant pain; R14.0 Abdominal distension (gaseous); R68.81 Early satiety; R10.13 Epigastric pain; R74.8 Abnormal levels of other serum enzymes
CPT/HCPCS: 36415; 80053; 82150; 82784; 82785; 82977; 83516; 83615; 83690; 84165; 85025; 85652; 86140; 86225; 86235; 86255; 86256; 86334

== ENCOUNTER → 2021-10-20 | Outpatient (CLI) | payer MEDICAID, SELFPAY ==
[2021-10-25 12:42] LABS: Pancreatic Elastase, Fecal 183 (>200)
[2021-10-27 07:37] LABS: Calprotectin, Stool 27 ug/g (0-120); Fats, Neutral Normal (.); Fats, Total Normal (.)
== END | disposition home or self-care (01) ==
LOC: LABSPEC 09:46
PROVIDERS: PCP Student in an Organized Health Care Education/Training Program; Visit Provider Nurse Practitioner Adult Health
DX: R19.8 Other specified symptoms and signs involving the digestive system and abdomen (principal); R10.31 Right lower quadrant pain; R14.0 Abdominal distension (gaseous); R74.8 Abnormal levels of other serum enzymes; R68.81 Early satiety
CPT/HCPCS: 82653; 82705; 83630; 83993

== ENCOUNTER → 2021-10-24 | Outpatient (CLI) | payer MEDICAID, SELFPAY ==
--- NOTE | 2021-10-24 07:29 | CT_ITS ---
EXAM: CT ABDOMEN AND PELVIS WITH INTRAVENOUS CONTRAST CLINICAL INDICATION: upper and lower abd pain -- oral and iv TECHNIQUE: Helically acquired images were obtained of the abdomen and pelvis with intravenous contrast. This CT exam was performed using one or more of the following dose reduction techniques: automated exposure control, adjustment of the mA and/or kV according to patient size, and/or use of iterative reconstruction technique. This report was created using [employer] report generation technology. CONTRAST: Oral and amp; IV Readi-CAT and amp; 100mL Isovue-300 COMPARISON: CT Abdomen Pelvis dated 06/26/2021 FINDINGS: LOWER THORAX: Normal. Lung bases are clear. No cardiomegaly. No pericardial effusion. ABDOMEN: LIVER: Normal. Homogeneous. No focal mass. GALLBLADDER AND BILE DUCTS: Gallbladder is absent. No intra- or extrahepatic biliary ductal dilation. PANCREAS: Normal. No focal cystic or solid mass. SPLEEN: Normal. Normal size without focal cystic or solid mass. ADRENALS: Normal. No nodules. KIDNEYS AND URETERS: Normal. Normal renal size and position. No hydronephrosis. STOMACH AND BOWEL: Normal. No bowel distention. No focal inflammatory change. PELVIS: APPENDIX: Appendix is visualized and normal in appearance. BLADDER: Normal. REPRODUCTIVE: Resolution of the previously noted right adnexal mass. Uterus is absent. ABDOMEN and PELVIS: INTRAPERITONEAL SPACE: Normal. No ascites or other fluid collection. No free air. BONES/JOINTS: Normal. No suspicious lytic or blastic abnormality. SOFT TISSUES: Normal. No discrete abdominal or pelvic wall hernia. VASCULATURE: Normal. Abdominal aorta is non-dilated. LYMPH NODES: Normal. No enlarged lymph nodes. CT/Abdomen/Pelvis WITH Contrast IMPRESSION: No acute abdominal or pelvic abnormality. Resolution of the previously noted right adnexal lesion. Electronically Signed: Ramírez Harris MD at 14:38 EDT ,
== END | disposition home or self-care (01) ==
LOC: CT 07:27
PROVIDERS: PCP Student in an Organized Health Care Education/Training Program; Referring Provider Nurse Practitioner Adult Health; Visit Provider Nurse Practitioner Adult Health
DX: R10.31 Right lower quadrant pain (principal); R14.0 Abdominal distension (gaseous); R68.81 Early satiety; R19.8 Other specified symptoms and signs involving the digestive system and abdomen
CPT/HCPCS: 74177; Q9967

== ENCOUNTER → 2021-10-27 | Outpatient (CLI) | payer MEDICAID, SELFPAY ==
--- NOTE | 2021-10-27 10:51 | NM_ITS ---
EXAM: NM GASTRIC EMPTYING SCAN CLINICAL INDICATION: suspect gastroparesis -- Pancreatic Insufficiency -- Patient states her stomach feels like it has a big rock in it TECHNIQUE: Patient was fed a drink and meal containing Tc99m sulfur colloid. Images of the abdomen were obtained over 60 minutes. Half time of gastric emptying and percent retention of radionuclide activity were calculated. This report was created using [employer] report generation technology. COMPARISON: None. FINDINGS: STOMACH: 90% gastric emptying noted at 60 minutes. Gastric activity half-life is approximately 30 minutes. NM/Gastric Emptying Study IMPRESSION: Normal gastric emptying. Electronically Signed: Ramírez Harris MD at 13:37 EDT ,
== END | disposition home or self-care (01) ==
LOC: NM 10:50
PROVIDERS: PCP Student in an Organized Health Care Education/Training Program; Referring Provider Internal Medicine Gastroenterology; Visit Provider Internal Medicine Gastroenterology
DX: R68.81 Early satiety (principal); R14.0 Abdominal distension (gaseous); R10.13 Epigastric pain
CPT/HCPCS: 78264; A9541

== ENCOUNTER 2021-11-16 06:58 | Day surgery (SDC) | payer MEDICAID, SELFPAY ==
[2021-11-16] VITALS (7 sets, daily range): BP systolic 103–117; BP diastolic 65–86; PULSE 63–80; RESP 16; TEMP 36–36.3; O2SAT 96–99; BMI 44.3
--- NOTE | 2021-11-16 | GASB_PTH ---
PATIENT: CLARISA ANTHONY LOC: EN U#:[id number] AGE/SX: 51/F ROOM: RE11/16/[address]: Dr. Faraz Cortez DO : 1970 BED: DIS: 11/16/2021 SPEC #: [id number] RECD: 11/16/21 12:48 STATUS: SEDRICK EVERARDO #: [id number] CHAMP: 11/16/21 00:[address]: Faraz Cortez DEPT: SURGICAL PATHOLOGY RECD BY: Ashok Woodward ENTERED: 11/16/21 12:49 SP TYPE: Gastric Bx OTHR DR: Dr. Tang Olguin DO Tissues: A - Duodenum, NOS B - Gastric mucous membrane C - Esophageal mucous membrane Sigmoid colon biopsy Procedures: Special Stain Group II Surgery Specimen Level IV Alcian Blue/PAS (control) HEADER OPERATION: Colonoscopy, EGD ([facility] [place]) with biopsies PRE-OP DIAGNOSIS: Epigastric pain, RLQ abdominal pain, bloating, early satiety, change in bowel function, elevated alk phos level TISSUE SUBMITTED: A ? Duodenum, B ? Gastric ulcer, C ? Distal esophagus, D ? Sigmoid biopsy MICROSCOPIC DIAGNOSIS A. Duodenum, biopsy: A fragment of small intestinal mucosa, no pathologic diagnosis. B. Gastric ulcer, biopsy: Mild gastritis. See microscopic description and comment. C. Distal esophagus, biopsy: Fragments of gastroesophageal mucosa with chronic inflammation. 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 See comment. D. Sigmoid colon, biopsy: Fragments of colonic mucosa, no pathologic diagnosis. SJ:rg 11/17/2021 COMMENT B. The results of immunohistochemistry for Helicobacter pylori will be reported separately ([id number]). C. Alcian blue/PAS stain with matched control is used in the evaluation of the specimen. MICROSCOPIC DESCRIPTION Slides are reviewed. B. The specimen shows fragments of gastric mucosa with chronic inflammatory cell infiltrates in the lamina propria consisting of lymphocytes and plasma cells, consistent with mild chronic gastritis. GROSS DESCRIPTION A - Received in fixative is one container labeled with the patient's name and designated duodenum biopsy. The specimen consists of one irregular fragment of light krause soft tissue that measures 0.5 x 0.4 x 0.1 cm. The specimen is totally submitted in one cassette. B - Received in fixative is one container labeled with the patient's name and designated gastric antrum biopsy. The specimen consists of multiple irregular fragments of light krause soft tissue that in aggregate measure 0.6 x 0.3 x 0.1 cm. The specimen is totally submitted in one cassette. C - Received in fixative is one container labeled with the patient's name and designated distal esophagus biopsy. The specimen consists of two irregular fragments of light krause soft tissue that in aggregate measure 0.6 x 0.3 x 0.1 cm. The specimen is totally submitted in one cassette. D - Received in fixative is one container labeled with the patient's name and designated sigmoid biopsy. The specimen consists of multiple irregular fragments of light krause soft tissue that in aggregate measure 0.9 x 0.4 x 0.1 cm. The specimen is totally submitted in one cassette. / SJ:rg 11/16/2021 TC:3 CPT: 02479 x4, 17903
[2021-11-16] MEDS: Lactated Ringers 1,000 ML 15 ML IV (07:26)
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
--- NOTE | 2021-11-16 08:15 | IMM_PTH ---
PATIENT: CLARISA ANTHONY LOC: EN U#:[id number] AGE/SX: 51/F ROOM: RE11/16/[address]: Dr. Faraz Cortez DO : 1970 BED: DIS: 11/16/2021 SPEC #: [id number] RECD: 11/16/21 13:25 STATUS: SEDRICK REPratibha #: [id number] CHAMP: 11/16/21 08:[address]: Faraz Cortez DEPT: IMMUNOHISTOCHEMISTRY RECD BY: Kelly Sotelo ENTERED: 11/16/21 13:25 SP TYPE: IMMUNO OTHR DR: Dr. Tang Olguin DO Tissues: B - Stomach, NOS Procedures: H Pylori (initial) PHYSICIAN & INSTITUTION [place] [id number] SPECIMEN INFORMATION: Tissue Source: B ? Gastric antrum Clinical Info: Epigastric pain, RLQ abdominal pain, bloating, early satiety, change in bowel habit Specimen Number: [id number] CPT code: 37104 METHODOLOGY: Deparaffinized sections of prefer/formalin-fixed tissue or PAP/DQ stained slides are incubated with monoclonal/polyclonal antibodies/oligonucleotide probes. Localization is made via biotin free immunoperoxidase method. Appropriate controls are performed and reacted as expected. Results on target cell population are indicated in the following table: RESULTS: ANTIBODY / CLONE RESULT Block B H Pylori (polyclonal) negative These tests were developed and their performance characteristics determined by [facility]. They may not have been cleared or approved by the U.S. Food and Drug Administration. The FDA has determined that such clearance or approval is not necessary. The above immunohistochemical/dualISH markers are ordered and reviewed by the Pathologist. INTERPRETATION: B. Gastric antrum, biopsy: Negative for Helicobacter pylori organisms. SJ:yaritza 11/17/2021
--- NOTE | 2021-11-16 08:53 | OP.EGD_ITS ---
Patient Name: Ning Ann Procedure Date: 11/16/2021 8:10 AM Date of : 1970 Age: 51 Procedure: Upper GI endoscopy Indications: Epigastric abdominal pain, Generalized abdominal pain, Functional Dyspepsia, Failure to respond to medical treatment Providers: Faraz Cortez DO Medicines: Monitored Anesthesia Care Patient Profile: Patient has symptoms of chronic abdominal cramping, chronic abdominal distention and chronic epigastric abdominal pain. Complications: No immediate complications. Procedure: Pre-Anesthesia Assessment: - Prior to the procedure, a History and Physical was performed, and patient medications and allergies were reviewed. The patient is competent. The risks and benefits of the procedure and the sedation options and risks were discussed with the patient. All questions were answered and informed consent was obtained. Patient identification and proposed procedure were verified by the physician in the pre-procedure area. Mental Status Examination: alert and oriented. Airway Examination: normal oropharyngeal airway and neck mobility. Respiratory Examination: clear to auscultation. CV Examination: normal. Prophylactic Antibiotics: The patient does not require prophylactic antibiotics. Prior Anticoagulants: The patient has taken no previous anticoagulant or antiplatelet agents. ASA Grade Assessment: II - A patient with mild systemic disease. After reviewing the risks and benefits, the patient was deemed in satisfactory condition to undergo the procedure. The anesthesia plan was to use monitored anesthesia care (MAC). Immediately prior to administration of medications, the patient was re-assessed for adequacy to receive sedatives. The heart rate, respiratory rate, oxygen saturations, blood pressure, adequacy of pulmonary ventilation, and response to care were monitored throughout the procedure. The physical status of the patient was re-assessed after the procedure. After obtaining informed consent, the endoscope was passed under direct vision. Throughout the procedure, the patient's blood pressure, pulse, and oxygen saturations were monitored continuously. The was introduced through the mouth, and advanced to the second part of duodenum. The upper GI endoscopy was accomplished without difficulty. The patient tolerated the procedure well. Scope In: 8:23:18 AM Scope Out: 8:28:29 AM Total Procedure Duration Time 0 hours 5 minutes 11 seconds Findings: The Z-line was irregular and was found 37 cm from the incisors. Biopsies were taken with a cold forceps for histology. Verification of patient identification for the specimen was done. Estimated blood loss was minimal. A medium-sized hiatal hernia was present. The cardia and gastric fundus were normal on retroflexion. No gross lesions were noted in the entire examined stomach. Biopsies were taken with a cold forceps for histology. Verification of patient identification for the specimen was done. Estimated blood loss was minimal. No gross lesions were noted in the second portion of the duodenum. Biopsies were taken with a cold forceps for histology. Verification of patient identification for the specimen was done. Estimated blood loss was minimal. Impression: - Z-line irregular, 37 cm from the incisors. Biopsied. - Medium-sized hiatal hernia. - No gross lesions in the stomach. Biopsied. - No gross lesions in the second portion of the duodenum. Biopsied. Recommendation: - Discharge patient to home. - Resume previous diet. - Continue present medications. - Await pathology results. Procedure Code(s): --- Professional --- 28984, Esophagogastroduodenoscopy, flexible, transoral; with biopsy, single or multiple CPT copyright 2017 [employer]. All rights reserved. The codes documented in this report are preliminary and upon data coder operator review may be revised to meet current compliance requirements. Faraz Cortez DO 11/16/2021 8:53:06 AM This report has been signed electronically. Number of Addenda: 0 Note Initiated On: 11/16/2021 8:10 AM
--- NOTE | 2021-11-16 08:54 | OP.CCLET_ITS ---
11/16/2021 Tang Olguin [address] [place] [address] Re : Upper GI endoscopy procedure for Ning Ann Dear Dr. Olguin This procedure was performed on Tuesday, November 16, 2021. My impressions and recommendations are as follows: Impressions : - Z-line irregular, 37 cm from the incisors. Biopsied. - Medium-sized hiatal hernia. - No gross lesions in the stomach. Biopsied. - No gross lesions in the second portion of the duodenum. Biopsied. Recommendations : - Discharge patient to home. - Resume previous diet. - Continue present medications. - Await pathology results. My findings are described in the full procedure note, which is enclosed. If I can be of further assistance, please feel free to contact me at . Sincerely, Faraz Cortez, 11/16/2021 8:53:06 AM This report has been signed electronically.
--- NOTE | 2021-11-16 08:59 | OP.COLON_ITS ---
Patient Name: Ning Ann Procedure Date: 11/16/2021 8:28 AM Date of : 1970 Age: 51 Procedure: Colonoscopy Indications: Screening for colorectal malignant neoplasm Providers: Faraz Cortez DO Medicines: Monitored Anesthesia Care Patient Profile: Patient has symptoms of chronic abdominal cramping, chronic abdominal distention and chronic epigastric abdominal pain. Last Colonoscopy: date unknown. Unable to locate last colonoscopy report. Complications: No immediate complications. Procedure: Pre-Anesthesia Assessment: - Prior to the procedure, a History and Physical was performed, and patient medications and allergies were reviewed. The patient is competent. The risks and benefits of the procedure and the sedation options and risks were discussed with the patient. All questions were answered and informed consent was obtained. Patient identification and proposed procedure were verified by the physician in the pre-procedure area. Mental Status Examination: alert and oriented. Airway Examination: normal oropharyngeal airway and neck mobility. Respiratory Examination: clear to auscultation. CV Examination: normal. Prophylactic Antibiotics: The patient does not require prophylactic antibiotics. Prior Anticoagulants: The patient has taken no previous anticoagulant or antiplatelet agents. ASA Grade Assessment: II - A patient with mild systemic disease. After reviewing the risks and benefits, the patient was deemed in satisfactory condition to undergo the procedure. The anesthesia plan was to use monitored anesthesia care (MAC). Immediately prior to administration of medications, the patient was re-assessed for adequacy to receive sedatives. The heart rate, respiratory rate, oxygen saturations, blood pressure, adequacy of pulmonary ventilation, and response to care were monitored throughout the procedure. The physical status of the patient was re-assessed after the procedure. After I obtained informed consent, the scope was passed under direct vision. Throughout the procedure, the patient's blood pressure, pulse, and oxygen saturations were monitored continuously. The colonoscope was introduced through the anus and advanced to the cecum, identified by appendiceal orifice and ileocecal valve. The colonoscopy was performed without difficulty. The patient tolerated the procedure well. The quality of the bowel preparation was good. Scope In: 8:30:49 AM Scope Withdrawal Time 0 hours 13 minutes 4 seconds Scope Out: 8:46:00 AM Total Procedure Duration Time 0 hours 15 minutes 11 seconds Findings: The perianal and digital rectal examinations were normal. An area of mildly congested mucosa was found in the sigmoid colon. Biopsies were taken with a cold forceps for histology. Verification of patient identification for the specimen was done. Estimated blood loss was minimal. No additional abnormalities were found on retroflexion. Impression: - Congested mucosa in the sigmoid colon. Biopsied. Recommendation: - Discharge patient to home. - Resume previous diet. - Continue present medications. - Await pathology results. - Repeat colonoscopy in 10 years for screening purposes. Procedure Code(s): --- Professional --- 76081, Colonoscopy, flexible; with biopsy, single or multiple CPT copyright 2017 [employer]. All rights reserved. The codes documented in this report are preliminary and upon credit review manager review may be revised to meet current compliance requirements. Faraz Cortez DO 11/16/2021 8:59:02 AM This report has been signed electronically. Number of Addenda: 0 Note Initiated On: 11/16/2021 8:28 AM
--- NOTE | 2021-11-16 09:00 | OP.CCLET_ITS ---
11/16/2021 Tang Olguin [address] [place] [address] Re : Colonoscopy procedure for Ning Ann Dear Dr. Olguin This procedure was performed on Tuesday, November 16, 2021. My impressions and recommendations are as follows: Impressions : - Congested mucosa in the sigmoid colon. Biopsied. Recommendations : - Discharge patient to home. - Resume previous diet. - Continue present medications. - Await pathology results. - Repeat colonoscopy in 10 years for screening purposes. My findings are described in the full procedure note, which is enclosed. If I can be of further assistance, please feel free to contact me at . Sincerely, Faraz Cortez, 11/16/2021 8:59:02 AM This report has been signed electronically.
== END 2021-11-16 09:35 | disposition home or self-care (01) ==
LOC: EN 06:59 → AC 07:00
PROVIDERS: PCP Student in an Organized Health Care Education/Training Program; Referring Provider Student in an Organized Health Care Education/Training Program; Visit Provider Internal Medicine Gastroenterology
PROC: 0DJD8ZZ Inspection of Lower Intestinal Tract, Via Natural or Artificial Opening Endoscopic (ICD-10-PCS; CPT 45378; principal; 2021-11-16 08:10)
DX: K44.9 Diaphragmatic hernia without obstruction or gangrene (principal); K76.0 Fatty (change of) liver, not elsewhere classified; R14.0 Abdominal distension (gaseous); K59.09 Other constipation; Z12.11 Encounter for screening for malignant neoplasm of colon; R16.1 Splenomegaly, not elsewhere classified; K21.9 Gastro-esophageal reflux disease without esophagitis; D50.9 Iron deficiency anemia, unspecified; N83.201 Unspecified ovarian cyst, right side; R13.10 Dysphagia, unspecified; R60.0 Localized edema; K63.89 Other specified diseases of intestine; L29.9 Pruritus, unspecified; R19.7 Diarrhea, unspecified; R68.81 Early satiety; N20.0 Calculus of kidney; K29.70 Gastritis, unspecified, without bleeding
CPT/HCPCS: 43239; 45380; 88305; 88313; 88342; J7120; J2405

== ENCOUNTER → 2021-11-30 | Outpatient (CLI) | payer MEDICAID, SELFPAY ==
[2021-11-30 10:19] LABS: Absolute Lymphocyte Count 1.48 X10^3/uL (0.83-4.51); Absolute Neutrophil Count 5.7 X10^3/uL (2.0-7.7); Basophil# 0.02 X10^3/uL; Basophil% 0.3 % (0-1); Hematocrit 40.6 % (37-47); Hemoglobin 13.1 g/dL (12.0-15.0); Lymphocyte # 1.48 X10^3/ul (0.83-4.51); Lymphocyte % 19.3 % (19-41); Mean Corp Hgb Conc 32.3 g/dL (32-36); Mean Corpuscular Hgb 27.4 pg (27.0-32.0); Mean Corpuscular Volume 84.9 fL (81-99); Mean Platelet Vol. 10.4 fl (6.2-12.0); Monocyte# 0.45 X10^3/uL; Monocyte% 5.9 % (0-10); NRBC Flagged by Analyzer 0 % (0-5); Neutrophil # 5.69 X10^3/uL (2.7-7.7); Neutrophil % 74.2 % (47-70); Platelet Count 267 K/mm3 (150-450); RBC Distribution Width CV 14.2 % (11.6-14.6); RBC Distribution Width SD 44.3 fl (35.1-43.9); RET-HE 30.1 pg (30-35); Red Blood Count 4.78 M/mm3 (4.2-5.4); Reticulocyte Count 1.22 % (0.5-1.5); White Blood Count 7.7 K/mm3 (4.4-11.0)
[2021-11-30 10:43] LABS: CPK Total, Creatine Kinase 55 U/L (26-192); Ferritin 50 ng/mL (8-252); Iron 62 ug/dL (50-170); Iron Binding Capacity,Total 363 ug/dL (250-450); PERCENT IRON SATURATION 17.1 % (15.0-55.0)
[2021-11-30 11:01] LABS: Erythrocyte Sedimentation Rate 33 mm/hr (0-30)
== END | disposition home or self-care (01) ==
LOC: LAB 09:25
PROVIDERS: PCP Student in an Organized Health Care Education/Training Program; Visit Provider Nurse Practitioner Adult Health
DX: K29.70 Gastritis, unspecified, without bleeding (principal); D50.9 Iron deficiency anemia, unspecified
CPT/HCPCS: 36415; 82550; 82728; 83516; 83540; 83550; 85025; 85045; 85652; 86140

== ENCOUNTER 2021-12-08 09:36 | Emergency (ER) | payer MEDICAID, SELFPAY ==
[2021-12-08 09:38] VITALS: BP 158/114; PULSE 74; RESP 18; TEMP 36.6; O2SAT 97; BMI 44.4
--- NOTE | 2021-12-08 10:05 | EX.ED.DYSGE1 ---
HPI History of Present Illness Chief Complaint: General Illness Informant: patient Onset/Context/Timing Onset: Weeks (1) Context: Gradual Onset Timing: Continuous Quality: Aching, numbing Location: Right face Worsened by: Coughing Relieved by: Nothing Narrative Narrative: Patient presents with right facial pain and numbness for the past week. Patient states it has been constant. Patient states her pain is over the right side of her face. Patient describes it as aching and numbing. Patient denies any weakness. Patient states it is worse whenever she coughs. Patient states she has had an upper respiratory infection and laryngitis for the past week as well. Patient states nothing makes it better. Patient denies any difficulty swallowing or difficulty talking. Patient denies any visual changes. [facility] Medical History Acute maxillary sinusitis, unspecified Anxiety Aortic aneurysm Asthma Calcaneal spur Cardiology follow-up encounter Carpal tunnel syndrome Colon polyps Contact with and (suspected) exposure to other viral communicable diseases Delivery with history of Depressive disorder Diaphragmatic hernia without mention of obstruction or gangrene Difficulty swallowing DVT (deep venous thrombosis) Endometriosis Fatty liver Fibromyalgia Fibromyalgia muscle pain Gastric reflux GERD (gastroesophageal reflux disease) Hayfever History of echocardiogram History of hiatal hernia History of IBS History of stress test HSV infection HTN (hypertension) Hypercholesteremia Impaired fasting glucose Non-smoker Patellofemoral disorder PTSD (post-traumatic stress disorder) r middle trigger finger release Restless legs Rheumatoid arthritis Right hand paresthesia Seizures Temporomandibular joint disorder Trigger middle finger of right hand Trigger ring finger of right hand uterine ablation Vitamin D deficiency Home Medications ropinirole 4 mg tablet (Requip) 4 mg PO QHS restless legs 03/10/14 [History Last Taken 05/07/19] valacyclovir 500 mg tablet (Valtrex) 500 mg PO QHS anti viral 12/06/16 [History Last Taken 05/07/19] cetirizine 10 mg capsule (Zyrtec) 10 mg PO QHS allergies 01/22/17 [History Last Taken 05/07/19] albuterol sulfate 90 mcg/actuation aerosol inhaler 2 puff inhalation Q4H PRN PRN Wheezing 10/30/19 [History Last Taken 11/16/21] fluticasone propionate 110 mcg/actuation HFA aerosol inhaler (Flovent HFA) 1 puff inhalation BID 10/30/19 [History Last Taken Unknown] magnesium 30 mg tablet 500 mg PO DAILY 10/30/19 [History Last Taken Unknown] ondansetron 4 mg disintegrating tablet 4 mg PO Q6H PRN PRN Nausea 10/30/19 [History Last Taken Unknown] uqdmwu-[id number]-hlylncg 36,000-114,000-180,000 unit capsule,delay rel (Creon) See Rx Instructions PO .COMPLEX #300 caps 10/25/21 [Rx Last Taken Unknown] cyclobenzaprine 10 mg tablet 10 mg PO PRN PRN MUSCLE SPASMS 11/10/21 [History Last Taken Unknown] venlafaxine 75 mg capsule,extended release 24 hr (Effexor XR) 75 mg PO DAILY 11/10/21 [History Last Taken Unknown] omeprazole 40 mg capsule,delayed release 40 mg PO BID #180 caps 11/18/21 [Rx Last Taken Unknown] sucralfate 1 gram tablet 1 g PO QAC #90 tabs 11/18/21 [Rx Last Taken Unknown] amoxicillin 500 mg capsule 1,000 mg PO BID 10 days #40 caps 11/30/21 [Rx Last Taken Unknown] prednisone 10 mg tablet 10 mg PO .COMPLEX #30 tabs 12/04/21 [Rx Last Taken Unknown] Allergy/AdvReac Type Severity Reaction Status Date / Time hydromorphone HCl Allergy Chest Verified 12/08/21 09:38 [From Dilaudid] tightness prednisone Allergy Itching Verified 12/08/21 09:38 warfarin sodium Allergy Chest Verified 12/08/21 09:38 [From Coumadin] tightness milnacipran HCl AdvReac Other Verified 12/08/21 09:38 [From Savella] pregabalin [From Lyrica] AdvReac Rash Verified 12/08/21 09:38 rivaroxaban [From Xarelto] AdvReac Nausea Verified 12/08/21 09:38 Family History Mother Hypertension Hyperlipidemia alcohol/drug addiction Allergies Father alcohol/drug addiction Sister Thyroid disorder Fibromyalgia Blindness Grandmother Emphysema lung Heart disease Grandfather Emphysema lung Brother alcohol/drug addiction Surgical History History of bilateral breast reduction surgery History of bilateral salpingectomy History of carpal tunnel release History of esophagogastroduodenoscopy (EGD) History of laparoscopic cholecystectomy History of laparoscopic-assisted vaginal hysterectomy History of nasal surgery History of tubal ligation Hx of colonoscopy Hx of tonsillectomy S/P foot surgery, left Social History Smoking Status: Never smoker alcohol intake: former what type of physical activity do you participate in: walking seatbelt use: always do you feel safe at home: Yes additional social history: single- [employer] ROS ROS ED Constitutional Constitutional ED: Reports chills and subjective; Denies fever(s) Eyes Eyes: Denies blurry vision or change in vision ENT ENT ED: Reports sore throat; Denies rhinorrhea Cardiovascular Cardiovascular: Denies chest pain or palpitations Respiratory/Chest Respiratory/Chest: Reports cough and dyspnea Gastrointestinal Gastrointestinal: Reports nausea; Denies vomiting Genitourinary Genitourinary ED: Denies dysuria or hematuria Musculoskeletal Musculoskeletal: Reports neck pain; Denies back pain Integumentary Denies abscess or rash Neurologic Neurologic: Reports headache(s); Denies weakness Allergic/Immunologic Allergic/Immunologic ED: Denies mouth swelling or urticaria EXAM Physical Exam Const Vital Signs: 12/08/21 09:38 12/08/21 10:21 12/08/21 10:36 Temperature 97.9 F 97.9 F Temperature Source Temporal Temporal Pulse Rate 74 74 92 Respiratory Rate 18 18 20 H Respiratory Pattern Normal Blood Pressure 158/114 H 158/114 H Blood Pressure Mean 128 128 Pulse Ox 97 97 Oxygen Delivery Method Room Air Room Air 12/08/21 11:52 Temperature 98.2 F Temperature Source Oral Pulse Rate 86 Respiratory Rate 17 Respiratory Pattern Blood Pressure 139/84 H Blood Pressure Mean 102 Pulse Ox 98 Oxygen Delivery Method Room Air Positive well nourished, well developed and obese General Appearance ED: well developed and NAD Nutritional Appearance: obese HEENT Reports moist mucous membranes Neck supple and no JVD Resp normal respiratory effort and clear to auscultation bilaterally Cardio regular rate, regular rhythm and no murmurs GI normal to inspection, nondistended, normoactive bowel sounds and non-tender Palpation: soft Extremity normal to inspection General Extremety ED: Negative for edema or tenderness General Extremity: Negative for edema Neuro oriented x3, CN's II-XII intact bilaterally and no sensory deficits noted Sensorium / Orientation: alert Motor Exam: strength 5/5 throughout Psych mental status grossly normal Skin no rashes or lesions noted MDM MDM MDM Narrative Medical decision making narrative: Patient was given a DuoNeb aerosol here. PA and lateral chest x-ray was obtained. There are 2 views. On my interpretation, lung rowe are clear. There is normal cardiac silhouette. Bony thorax is normal. There is no acute process noted. Radiologist also interpreted the x-ray and agrees. CBC was within normal limits. Comprehensive metabolic profile was within normal limits. Alk phos was slightly elevated at 122. COVID-19 rapid antigen was obtained and was negative. Influenza A and influenza B swabs were obtained and were negative. Rapid strep was obtained and was negative. Patient is feeling better on reevaluation. Patient was advised this is most likely a viral upper respiratory infection. Patient was instructed to follow-up with her primary care physician in 5 to 7 days. Patient understood and was agreeable with plan. All questions were answered. Lab Data Attestation: I reviewed the patient's lab results. Labs: Laboratory Results - last 24 hr 12/08/21 12/08/21 10:25 10:25 WBC 7.5 RBC 4.51 Hgb 12.7 Hct 37.8 MCV 83.8 MCH 28.2 MCHC 33.6 RDW Std Deviation 43.8 RDW Coeff of [place] 14.3 Plt Count 257 MPV 9.8 Immature Gran % (Auto) 0.500 Neut % (Auto) 66.3 Lymph % (Auto) 25.0 [place] % (Auto) 7.7 Eos % (Auto) 0.0 Baso % (Auto) 0.5 Absolute Neuts (auto) 5.0 Absolute Lymphs (auto) 1.87 Nucleated RBC % 0 Sodium 138 Potassium 3.9 Chloride 105 Carbon Dioxide 27.0 Anion Gap 6 BUN 8 Creatinine 0.75 Estim Creat Clear Calc 70.98 Est GFR (MDRD) Af Amer 106 Est GFR (MDRD) Non-Af 87 BUN/Creatinine Ratio 10.7 Glucose 98 Calcium 9.0 Total Bilirubin 0.20 AST 13 L ALT 23 Alkaline Phosphatase 122 H Total Protein 7.4 Albumin 3.1 L Globulin 4.3 H Albumin/Globulin Ratio 0.7 L Radiography Diagnostic Testing: Clinical Impression(s) from Imaging Studies Chest X-Ray 12/08/21 10:50 IMPRESSION: Normal x-ray examination of the chest. Electronically Signed: Colby Cruz MD at 11:09 EDT , Discharge Plan Triage Chief Complaint: General Illness ED Provider: Hardeep Mascorro Dx/Rx/DC Orders Clinical Impression: Viral upper respiratory tract infection, Obesity, Class III, BMI 40-49.9 (morbid obesity) Instructions: ED URI, Viral, No Abx (Adult) Prescriptions: No Action amoxicillin 500 mg capsule 1,000 mg PO BID 10 Days Qty: 40 0RF prednisone 10 mg tablet 10 mg PO .COMPLEX Qty: 30 0RF Rx Instructions: Take 4 pills for 3 days, 3 pills for 3 days, 2 pills for 3 days, take 1 pill for 3 days ropinirole [Requip] 4 MG tablet 4 mg PO QHS Label Comments: restless leg valacyclovir [Valtrex] 500 MG tablet 500 mg PO QHS Zyrtec 10 MG capsule 10 mg PO QHS albuterol sulfate 1 INHALER inhaler 2 puff inhalation Q4H PRN PRN (Reason: Wheezing) magnesium 30 MG tablet 500 mg PO DAILY fluticasone propionate [Flovent HFA] 1 INHALER inhaler 1 puff inhalation BID ondansetron 4 MG tablet 4 mg PO Q6H PRN PRN (Reason: Nausea) cyclobenzaprine 10 mg tablet 10 mg PO PRN PRN (Reason: MUSCLE SPASMS) venlafaxine [Effexor XR] 75 mg Capsule,Extended Release 24hr 75 mg PO DAILY Creon 36,000-114,000- 180,000 unit capsule,delayed release(DR/EC) See Rx Instructions PO .COMPLEX Qty: 300 2RF Rx Instructions: take 1 capsule with snacks, take 2 capsules with every meal sucralfate 1 gram tablet 1 g PO QAC Qty: 90 0RF omeprazole 40 mg capsule,delayed release(DR/EC) 40 mg PO BID Qty: 180 0RF Primary Care Provider: Tang Olguin Referrals: Tang Olguin, DO [Primary Care Provider] - 5-7 Days Disposition Disposition: Home, Self Care
[2021-12-08 10:21] VITALS: BP 158/114; PULSE 74; RESP 18; TEMP 36.6; O2SAT 97
[2021-12-08 10:34] LABS: Absolute Lymphocyte Count 1.87 X10^3/uL (0.83-4.51); Basophil# 0.04 X10^3/uL; Basophil% 0.5 % (0-1); Hematocrit 37.8 % (37-47); Hemoglobin 12.7 g/dL (12.0-15.0); Lymphocyte # 1.87 X10^3/ul (0.83-4.51); Mean Corp Hgb Conc 33.6 g/dL (32-36); Mean Corpuscular Hgb 28.2 pg (27.0-32.0); Mean Corpuscular Volume 83.8 fL (81-99); Mean Platelet Vol. 9.8 fl (6.2-12.0); Monocyte# 0.58 X10^3/uL; Monocyte% 7.7 % (0-10); NRBC Flagged by Analyzer 0 % (0-5); Neutrophil # 4.96 X10^3/uL (2.7-7.7); Neutrophil % 66.3 % (47-70); Platelet Count 257 K/mm3 (150-450); RBC Distribution Width CV 14.3 % (11.6-14.6); RBC Distribution Width SD 43.8 fl (35.1-43.9); Red Blood Count 4.51 M/mm3 (4.2-5.4); White Blood Count 7.5 K/mm3 (4.4-11.0)
[2021-12-08 10:36] VITALS: PULSE 92; RESP 20
[2021-12-08] MEDS: Ipratropium/Albuterol Sulfate 3 ML AMPUL.NEB INHALATION (10:36)
--- NOTE | 2021-12-08 10:50 | RAD_ITS ---
STUDY: X-RAY CHEST REASON FOR EXAM: Female, 51 years old. Cough . Respiratory symptoms. TECHNIQUE: PA and lateral views of the chest. COMPARISON: Comparison is made with prior study 12/21/2020. FINDINGS: The lungs are clear and expanded. There is no demonstrated pleural abnormality. Normal size heart. Normal mediastinum and sagar. Normal visualized pulmonary arteries. Normal visualized aortic arch and descending thoracic aorta. Normal visualized thoracic spine. Normal visualized ribs, clavicles, and shoulders. There is no demonstrated abnormality of the visualized soft tissue structures of the upper abdomen. RAD/Chest PA and Lateral IMPRESSION: Normal x-ray examination of the chest. Electronically Signed: Colby Cruz MD at 11:09 EDT ,
[2021-12-08 10:51] LABS: ALB/GLOB Ratio 0.7 RATIO (0.9-2.4); AST(SGOT) 13 U/L (15-37); Alanine Aminotransfer ALT/SGPT 23 U/L (13-56); Albumin, Serum 3.1 g/dL (3.2-5.0); Alkaline Phosphatase 122 U/L (45-117); Anion Gap 6 (5-15); BUN 8 mg/dL (7-18); BUN/Creat Ratio 10.7 RATIO (10-20); Chloride 105 mmol/L (98-107); Creatinine, Serum 0.75 mg/dL (0.55-1.02); EST Glomerular Filtration Rate 87 mL/min (>60); Est Glom Filt Rate - Afr Amer 106 mL/min (>60); Estimated Creatinine Clearance 70.98 ml/min; Globulin 4.3 g/dL (2.2-4.2); Glucose 98 mg/dL (74-106); Potassium 3.9 mmol/L (3.5-5.1); Protein, Total 7.4 g/dL (6.4-8.2); Sodium Level 138 mmol/L (136-145)
[2021-12-08 11:52] VITALS: BP 139/84; PULSE 86; RESP 17; TEMP 36.8; O2SAT 98
[2021-12-08 13:03] VITALS: BP 139/77; PULSE 62; RESP 15; O2SAT 98
== END 2021-12-08 13:10 | disposition home or self-care (01) ==
PROVIDERS: Emergency Provider Emergency Medicine; PCP Student in an Organized Health Care Education/Training Program; Visit Provider Emergency Medicine
DX: J06.9 Acute upper respiratory infection, unspecified (principal); E66.01 Morbid (severe) obesity due to excess calories; Z68.41 Body mass index [BMI] 40.0-44.9, adult; E78.00 Pure hypercholesterolemia, unspecified; I10 Essential (primary) hypertension; R51.9 Headache, unspecified
CPT/HCPCS: 71046; 80053; 85025; 87428; 87880; 94640; 99283

== ENCOUNTER 2022-02-16 07:36 | Emergency (ER) | payer MEDICAID, SELFPAY ==
[2022-02-16 07:38] VITALS: BP 138/66; PULSE 70; RESP 18; TEMP 36.1; O2SAT 99; BMI 45.3
--- NOTE | 2022-02-16 07:47 | RAD_ITS ---
STUDY: X-RAY - LEFT WRIST REASON FOR EXAM: Female, 51 years old. Numbness and tingling. TECHNIQUE: 3 view(s) of the wrist were obtained. COMPARISON: None. FINDINGS: Normal visualized distal radius and ulna. Normal radiocarpal articulation. Normal distal radioulnar articulation. Normal carpal bones. Normal carpal articulations. Normal carpometacarpal articulation of the thumb. Normal second through fifth carpometacarpal articulations. Normal visualized metacarpal bones. The soft tissue structures are unremarkable. RAD/Wrist min 3 Views IMPRESSION: Normal x-ray examination of the wrist. Electronically Signed: Colby Cruz MD at 8:52 EST ,
--- NOTE | 2022-02-16 07:47 | RAD_ITS ---
STUDY: X-RAY - LEFT RADIUS AND ULNA REASON FOR EXAM: Female, 51 years old. Numbness and tingling in the upper extremity. TECHNIQUE: 2 view(s) of the forearm. COMPARISON: None. FINDINGS: There is no demonstrated soft tissue swelling. Normal visualized radius. Normal visualized ulna. RAD/Forearm 2 Views IMPRESSION: Normal x-ray examination of the radius and ulna. Electronically Signed: Colby Cruz MD at 8:52 EST ,
--- NOTE | 2022-02-16 07:47 | RAD_ITS ---
STUDY: X-RAY - LEFT SHOULDER REASON FOR EXAM: Female, 51 years old. Tingling and numbness in the left upper extremity. TECHNIQUE: 4 view(s) of the shoulder. COMPARISON: None. FINDINGS: Normal glenohumeral articulation. Normal acromioclavicular joint. Normal acromion. Normal humeral head and visualized proximal humerus. There is periarticular soft tissue calcification consistent with a calcific tendinitis. Normal visualized pulmonary apex. RAD/Shoulder min 2 Views IMPRESSION: Calcific tendinitis. Electronically Signed: Colby Cruz MD at 8:51 EST ,
--- NOTE | 2022-02-16 07:48 | EDS_ITS ---
HPI History of Present Illness Chief Complaint: Upper Extremity Injury Narrative Narrative: 51-year-old female presenting with left shoulder pain. She states it is nontraumatic. She states she started having this about Sunday. She has pain with range of motion of the left shoulder. She states that over the course of the weekend she started having pain down her left forearm and into her left wrist. She made a appointment for Dr. Ramires to be evaluated, but continued to have pain so she went to the urgent care. Urgent care referred her over here to the emergency room because she has a history of DVT. She states she had 1 provoked DVT after right foot surgery in the right leg. She states she also has a history of an unprovoked DVT in the left leg. She states that she is allergic to all blood thinners except for Lovenox. [facility] Medical History Acute maxillary sinusitis, unspecified Anxiety Aortic aneurysm Asthma Calcaneal spur Cardiology follow-up encounter Carpal tunnel syndrome Colon polyps Contact with and (suspected) exposure to other viral communicable diseases Delivery with history of Depressive disorder Diaphragmatic hernia without mention of obstruction or gangrene Difficulty swallowing DVT (deep venous thrombosis) Endometriosis Fatty liver Fibromyalgia Fibromyalgia muscle pain Gastric reflux GERD (gastroesophageal reflux disease) Hayfever History of echocardiogram History of hiatal hernia History of IBS History of stress test HSV infection HTN (hypertension) Hypercholesteremia Impaired fasting glucose Non-smoker Patellofemoral disorder PTSD (post-traumatic stress disorder) r middle trigger finger release Restless legs Rheumatoid arthritis Right hand paresthesia Seizures Temporomandibular joint disorder Trigger middle finger of right hand Trigger ring finger of right hand uterine ablation Vitamin D deficiency Home Medications ropinirole 4 mg tablet (Requip) 4 mg PO QHS restless legs 03/10/14 [History Last Taken 05/07/19] valacyclovir 500 mg tablet (Valtrex) 500 mg PO QHS anti viral 12/06/16 [History Last Taken 05/07/19] cetirizine 10 mg capsule (Zyrtec) 10 mg PO QHS allergies 01/22/17 [History Last Taken 05/07/19] albuterol sulfate 90 mcg/actuation aerosol inhaler 2 puff inhalation Q4H PRN PRN Wheezing 10/30/19 [History Last Taken 11/16/21] fluticasone propionate 110 mcg/actuation HFA aerosol inhaler (Flovent HFA) 1 puff inhalation BID 10/30/19 [History Last Taken Unknown] magnesium 30 mg tablet 500 mg PO DAILY 10/30/19 [History Last Taken Unknown] ondansetron 4 mg disintegrating tablet 4 mg PO Q6H PRN PRN Nausea 10/30/19 [History Last Taken Unknown] sdxahq-ehjfecam-mitrolh 36,000-114,000-180,000 unit capsule,delay rel (Creon) See Rx Instructions PO .COMPLEX #300 caps 10/25/21 [Rx Last Taken Unknown] cyclobenzaprine 10 mg tablet 10 mg PO PRN PRN MUSCLE SPASMS 11/10/21 [History Last Taken Unknown] venlafaxine 75 mg capsule,extended release 24 hr (Effexor XR) 75 mg PO DAILY 11/10/21 [History Last Taken Unknown] omeprazole 40 mg capsule,delayed release 40 mg PO BID #180 caps 11/18/21 [Rx Last Taken Unknown] sucralfate 1 gram tablet 1 g PO QAC #90 tabs 11/18/21 [Rx Last Taken Unknown] prednisone 10 mg tablet 10 mg PO .COMPLEX #30 tabs 12/04/21 [Rx Last Taken Unknown] naproxen 500 mg tablet (Naprosyn) 500 mg PO BID PRN pain #20 tabs 02/16/22 [Rx Last Taken Unknown] Allergy/AdvReac Type Severity Reaction Status Date / Time hydromorphone HCl Allergy Chest Verified 02/16/22 07:40 [From Dilaudid] tightness prednisone Allergy Itching Verified 02/16/22 07:40 warfarin sodium Allergy Chest Verified 02/16/22 07:40 [From Coumadin] tightness milnacipran HCl AdvReac Other Verified 02/16/22 07:40 [From Savella] pregabalin [From Lyrica] AdvReac Rash Verified 02/16/22 07:40 rivaroxaban [From Xarelto] AdvReac Nausea Verified 02/16/22 07:40 Family History Mother Hypertension Hyperlipidemia alcohol/drug addiction Allergies Father alcohol/drug addiction Sister Thyroid disorder Fibromyalgia Blindness Grandmother Emphysema lung Heart disease Grandfather Emphysema lung Brother alcohol/drug addiction Surgical History History of bilateral breast reduction surgery History of bilateral salpingectomy History of carpal tunnel release History of esophagogastroduodenoscopy (EGD) History of laparoscopic cholecystectomy History of laparoscopic-assisted vaginal hysterectomy History of nasal surgery History of tubal ligation Hx of colonoscopy Hx of tonsillectomy S/P foot surgery, left Social History Smoking Status: Never smoker alcohol intake: former what type of physical activity do you participate in: walking seatbelt use: always do you feel safe at home: Yes additional social history: single- [employer] ROS ROS ED Constitutional Constitutional ED: Denies chills or fever(s) Eyes Eyes: Denies change in vision or diplopia ENT ENT ED: Denies rhinorrhea or sore throat Cardiovascular Cardiovascular: Denies chest pain or palpitations Respiratory/Chest Respiratory/Chest: Reports cough Gastrointestinal Gastrointestinal: Denies abdominal pain Genitourinary Genitourinary ED: Denies dysuria or hematuria Musculoskeletal Musculoskeletal: Reports other Details: Left shoulder, left forearm, left wrist pain ; Denies back pain Integumentary Denies abscess or Abrasions Neurologic Neurologic: Denies headache(s) or paresthesias Psychiatric Psychiatric: Denies anxiety or depression EXAM Physical Exam Const Vital Signs: 02/16/22 07:38 Temperature 97 F L Temperature Source Temporal Pulse Rate 70 Respiratory Rate 18 Blood Pressure 138/66 H Blood Pressure Mean 90 Pulse Ox 99 Oxygen Delivery Method Room Air Positive well nourished General Appearance ED: NAD HEENT Reports moist mucous membranes Eyes PERRL and EOMs intact bilaterally Chest Wall inspection of chest normal Resp normal respiratory effort Auscultation: Negative for rales, rhonchi or wheezes Cardio regular rate and regular rhythm GI non-tender Extremity Extremity Narrative: Tenderness to palpation posterior to the left shoulder. Range of motion is no rmal however it is painful to move the left shoulder. There is no pain in the proximal or distal humerus. Left elbow is nontender to palpation. There is tenderness focally over the dorsal aspect of the left forearm midway. There is no obvious deformity. There is tenderness to palpation over the left wrist medially without deformity. Normal Emiliano's test. Neurovascularly intact brisk cap refill to all 5 fingers. Negative Tinel sign. Negative Nina Neuro oriented x3 and CN's II-XII intact bilaterally Sensorium / Orientation: alert Psych mental status grossly normal Skin Lesions: no lesions Rashes: no rashes MDM MDM MDM Narrative Medical decision making narrative: Patient presenting with left shoulder pain, left forearm pain, left wrist pain. She states this developed over the weekend. She is concerned for DVT. Ultrasound was ordered and is negative for DVT. I obtain x-rays of the left wrist, left forearm, left shoulder. These are all negative for acute fracture or subluxation on my interpretation. Radiologist interprets this and agrees. He does state that there is calcific tendinitis in the left shoulder. Patient has a follow-up already with orthopedics. She is counseled to use Tylenol and Motrin as needed. She has follow-up with her primary care physician tomorrow. Patient discharged stable condition Impression: 1. History of DVT 2. Left shoulder tendinitis 3. Left forearm pain 4. Left wrist Lab Data Attestation: I reviewed the patient's lab results. Discharge Plan Triage Chief Complaint: Upper Extremity Injury ED Provider: Reggie Pina Dx/Rx/DC Orders Instructions: ED Tendonitis, ED Wrist Sprain Prescriptions: New naproxen [Naprosyn] 500 mg tablet 500 mg PO BID PRN (Reason: pain) Qty: 20 0RF No Action prednisone 10 mg tablet 10 mg PO .COMPLEX Qty: 30 0RF Rx Instructions: Take 4 pills for 3 days, 3 pills for 3 days, 2 pills for 3 days, take 1 pill for 3 days ropinirole [Requip] 4 MG tablet 4 mg PO QHS Label Comments: restless leg valacyclovir [Valtrex] 500 MG tablet 500 mg PO QHS Zyrtec 10 MG capsule 10 mg PO QHS albuterol sulfate 1 INHALER inhaler 2 puff inhalation Q4H PRN PRN (Reason: Wheezing) magnesium 30 MG tablet 500 mg PO DAILY fluticasone propionate [Flovent HFA] 1 INHALER inhaler 1 puff inhalation BID ondansetron 4 MG tablet 4 mg PO Q6H PRN PRN (Reason: Nausea) cyclobenzaprine 10 mg tablet 10 mg PO PRN PRN (Reason: MUSCLE SPASMS) venlafaxine [Effexor XR] 75 mg Capsule,Extended Release 24hr 75 mg PO DAILY Creon 36,000-114,000- 180,000 unit capsule,delayed release(DR/EC) See Rx Instructions PO .COMPLEX Qty: 300 2RF Rx Instructions: take 1 capsule with snacks, take 2 capsules with every meal sucralfate 1 gram tablet 1 g PO QAC Qty: 90 0RF omeprazole 40 mg capsule,delayed release(DR/EC) 40 mg PO BID Qty: 180 0RF Primary Care Provider: Tang Olguin Referrals: Tang Olguin DO [Primary Care Provider] - Disposition Disposition: Home, Self Care
--- NOTE | 2022-02-16 08:58 | VDUE_ITS ---
Reason For Study: Arm Pain Right Proximal Left Proximal Right subclavian vein is spontaneous, widely Left jugular vein is spontaneous, widely patent, phasic, with no intraluminal patent, phasic, with no intraluminal echogenicity noted. echogenicity noted. Left subclavian vein is spontaneous, widely patent, phasic, with no intraluminal echogenicity noted. Left Arm Left axillary vein is spontaneous, patent, phasic, competent, compressible and demonstrates augmentation. Left brachial vein is compressible. Left cephalic vein is compressible. Left basilic vein is compressible. Left Lower Arm Left radial vein is compressible. Left ulnar vein is compressible. VL/Venous Duplex US, Unilateral Interpretation Summary No evidence for acute deep venous thrombosis[left] upper extremity with patent and compressible cephalic and basilic veins. Normal flow patterns right subclavian vein Ordering Physician: Reggie Pina Performed By: Prashant Frankel RVEarl ???
== END 2022-02-16 10:41 | disposition home or self-care (01) ==
PROVIDERS: Emergency Provider Student in an Organized Health Care Education/Training Program; PCP Student in an Organized Health Care Education/Training Program; Visit Provider Student in an Organized Health Care Education/Training Program
DX: M75.82 Other shoulder lesions, left shoulder (principal); M25.512 Pain in left shoulder; M79.632 Pain in left forearm; I10 Essential (primary) hypertension; E78.00 Pure hypercholesterolemia, unspecified
CPT/HCPCS: 73030; 73090; 73110; 93971; 99282

== ENCOUNTER 2022-04-07 16:23 | Emergency (ER) | payer MEDICAID, SELFPAY ==
[2022-04-07 16:24] VITALS: BP 160/98; PULSE 81; RESP 18; TEMP 35.8; O2SAT 98; BMI 45.7
--- NOTE | 2022-04-07 17:04 | EKG12_ITS ---
Test Reason : CP Blood Pressure : / mmHG Vent. Rate : 069 BPM Atrial Rate : 069 BPM P-R Int : 158 ms QRS Dur : 074 ms QT Int : 364 ms P-R-T Axes : 054 007 024 degrees QTc Int : 390 ms Normal sinus rhythm Normal ECG Confirmed by MARCIAL NAVARRO, DIPESH ([id number]), slot editor DAMARI PACK ([id number]) on 04/10/2022 9:22:59 AM Referred By: JAVIER/TRA Confirmed By:DIPESH CEJA MD
[2022-04-07 17:23] VITALS: RESP 16
--- NOTE | 2022-04-07 17:30 | RAD_ITS ---
INDICATION: chest pain EXAMINATION/TECHNIQUE: X-RAY - XR Chest 2 Views COMPARISON: 12/08/2021. FINDINGS: The lungs are clear. The cardiomediastinal silhouette is unremarkable. No pleural effusion or pneumothorax. Degenerative changes of the thoracic spine. RAD/Chest PA and Lateral IMPRESSION: No acute radiographic abnormalities. Electronically Signed: Andrew Noriega MD at 18:16 EST ,
--- NOTE | 2022-04-07 17:31 | ED.VIS.CHEST ---
HPI History of Present Illness Chief Complaint: Chest Pain Informant: patient Narrative Narrative: Sent in by PCP for evaluation. Reported having chest tightness for last 4 evenings 1 hour after taking her Requip. She has been taking this for years with no changes in doses. There is been no new prescriptions recently. Today on and off symptoms. Slight palpitations. History of Osman's esophagus. No cardiac history. History of hyper tension hyperlipidemia. Denies diabetes. Denies tobacco. Denies family history of MIs at a young age. She called discussed with her PCP about possible medication changes however sent to the ED for rule out. No dyspnea no leg swelling. She has had DVT in the past was treated with anticoagulants. [facility] Medical History Acute maxillary sinusitis, unspecified Anxiety Aortic aneurysm Asthma Calcaneal spur Cardiology follow-up encounter Carpal tunnel syndrome Colon polyps Contact with and (suspected) exposure to other viral communicable diseases Delivery with history of Depressive disorder Diaphragmatic hernia without mention of obstruction or gangrene Difficulty swallowing DVT (deep venous thrombosis) Endometriosis Fatty liver Fibromyalgia Fibromyalgia muscle pain Gastric reflux GERD (gastroesophageal reflux disease) Hayfever History of echocardiogram History of hiatal hernia History of IBS History of stress test HSV infection HTN (hypertension) Hx of blood clots Hypercholesteremia Impaired fasting glucose Non-smoker Patellofemoral disorder PTSD (post-traumatic stress disorder) r middle trigger finger release Restless legs Rheumatoid arthritis Right hand paresthesia Seizures Temporomandibular joint disorder Trigger middle finger of right hand Trigger ring finger of right hand uterine ablation Vitamin D deficiency Home Medications ropinirole 4 mg tablet (Requip) 4 mg PO QHS restless legs 03/10/14 [History Last Taken 05/07/19] valacyclovir 500 mg tablet (Valtrex) 500 mg PO QHS anti viral 12/06/16 [History Last Taken 05/07/19] cetirizine 10 mg capsule (Zyrtec) 10 mg PO QHS allergies 01/22/17 [History Last Taken 05/07/19] albuterol sulfate 90 mcg/actuation aerosol inhaler 2 puff inhalation Q4H PRN PRN Wheezing 10/30/19 [History Last Taken 11/16/21] fluticasone propionate 110 mcg/actuation HFA aerosol inhaler (Flovent HFA) 1 puff inhalation BID 10/30/19 [History Last Taken Unknown] magnesium 30 mg tablet 500 mg PO DAILY 10/30/19 [History Last Taken Unknown] ondansetron 4 mg disintegrating tablet 4 mg PO Q6H PRN PRN Nausea 10/30/19 [History Last Taken Unknown] lepdms-[id number]-[id number] 36,000-114,000-180,000 unit capsule,delay rel (Creon) See Rx Instructions PO .COMPLEX #300 caps 10/25/21 [Rx Last Taken Unknown] cyclobenzaprine 10 mg tablet 10 mg PO PRN PRN MUSCLE SPASMS 11/10/21 [History Last Taken Unknown] venlafaxine 75 mg capsule,extended release 24 hr (Effexor XR) 75 mg PO DAILY 11/10/21 [History Last Taken Unknown] omeprazole 40 mg capsule,delayed release 40 mg PO BID #180 caps 11/18/21 [Rx Last Taken Unknown] sucralfate 1 gram tablet 1 g PO QAC #90 tabs 11/18/21 [Rx Last Taken Unknown] prednisone 10 mg tablet 10 mg PO .COMPLEX #30 tabs 12/04/21 [Rx Last Taken Unknown] naproxen 500 mg tablet (Naprosyn) 500 mg PO BID PRN pain #20 tabs 02/16/22 [Rx Last Taken Unknown] Allergy/AdvReac Type Severity Reaction Status Date / Time hydromorphone HCl Allergy Chest Verified 04/07/22 16:27 [From Dilaudid] tightness prednisone Allergy Itching Verified 04/07/22 16:27 warfarin sodium Allergy Chest Verified 04/07/22 16:27 [From Coumadin] tightness milnacipran HCl AdvReac Other Verified 04/07/22 16:27 [From Savella] pregabalin [From Lyrica] AdvReac Rash Verified 04/07/22 16:27 rivaroxaban [From Xarelto] AdvReac Nausea Verified 04/07/22 16:27 Family History Mother Hypertension Hyperlipidemia alcohol/drug addiction Allergies Father alcohol/drug addiction Sister Thyroid disorder Fibromyalgia Blindness Grandmother Emphysema lung Heart disease Grandfather Emphysema lung Brother alcohol/drug addiction Surgical History History of bilateral breast reduction surgery History of bilateral salpingectomy History of carpal tunnel release History of esophagogastroduodenoscopy (EGD) History of laparoscopic cholecystectomy History of laparoscopic-assisted vaginal hysterectomy History of nasal surgery History of tubal ligation Hx of colonoscopy Hx of tonsillectomy S/P foot surgery, left Social History Smoking Status: Never smoker alcohol intake: former what type of physical activity do you participate in: walking seatbelt use: always do you feel safe at home: Yes additional social history: [employer] ROS ROS ED Constitutional Constitutional ED: Denies chills, fever(s) or sweats Eyes Eyes: Denies change in vision ENT ENT ED: Denies dysphagia or sore throat Cardiovascular Cardiovascular: Reports chest pain; Denies leg edema, palpitations or racing heartbeat Respiratory/Chest Respiratory/Chest: Denies cough, dyspnea or dyspnea on exertion Gastrointestinal Gastrointestinal: Denies abdominal pain, diarrhea, nausea or vomiting Genitourinary Genitourinary ED: Denies dysuria, hematuria or urinary frequency Musculoskeletal Musculoskeletal: Denies back pain, extremity pain or neck pain Integumentary Denies rash or wounds Neurologic Neurologic: Denies headache(s), paresthesias or weakness EXAM Physical Exam Const Vital Signs: 04/07/22 16:24 04/07/22 16:34 04/07/22 17:04 Temperature 96.4 F L Temperature Source Temporal Pulse Rate 81 Respiratory Rate 18 Respiratory Effort Normal Blood Pressure 160/98 H Blood Pressure Mean 118 Pulse Ox 98 Oxygen Delivery Method Room Air Room Air 04/07/22 17:23 04/07/22 18:23 04/07/22 19:15 Temperature Temperature Source Pulse Rate 75 Respiratory Rate 16 16 16 Respiratory Effort Blood Pressure 121/80 H Blood Pressure Mean Pulse Ox 96 Oxygen Delivery Method Positive well nourished and well developed General Appearance ED: well developed and NAD HEENT Reports moist mucous membranes normocephalic and atraumatic Eyes PERRL, EOMs intact bilaterally and conjunctivae normal General Eye ED: Yes normal appearance of both eyes Neck no lymphadenopathy and supple General: Negative for tenderness Chest Wall Chest: Negative for tenderness Resp normal respiratory effort and normal air movement Effort and Inspection: symmetric chest movement; Negative for respiratory distress Cardio regular rate, regular rhythm and no murmurs Peripheral Pulses: pulses 2+ throughout GI normal to inspection, nondistended, normoactive bowel sounds and non-tender Palpation: Negative for guarding or rebound tenderness present Back/Spine no CVA tenderness and no thoracic nor lumbar tenderness Extremity normal to inspection General Extremety ED: Negative for edema or tenderness General Extremity: Negative for edema Neuro oriented x3 and no sensory deficits noted Sensorium / Orientation: awake and alert Skin no rashes or lesions noted and no wounds MDM MDM MDM Narrative Medical decision making narrative: Patient sent here for chest pains. EKG cardiac work-up negative troponin. Labs are stable. Two-view chest x-ray interpreted myself and read by radiology shows no acute process. She has no dyspnea or hypoxia or concerns for PE. Differential is atypical chest pain, musculoskeletal chest pains. . Also possible medical side effects with symptoms occurring an hour after taking her medications. She is symptom-free on reevaluation. Discussed concerns and obtain repeat troponin however she declines would like to go home. Return precaution discussed otherwise follow-up with her PCP for discussion of potential alternative medications. All questions were answered. Lab Data Attestation: I reviewed the patient's lab results. Labs: Laboratory Results - last 24 hr 04/07/22 04/07/22 16:47 16:47 WBC 12.9 H RBC 4.85 Hgb 13.4 Hct 41.2 MCV 84.9 MCH 27.6 MCHC 32.5 RDW Std Deviation 45.8 H RDW Coeff of [place] 15.0 H Plt Count 294 MPV 9.5 Immature Gran % (Auto) 0.500 Neut % (Auto) 73.9 H Lymph % (Auto) 18.3 L [place] % (Auto) 6.5 Eos % (Auto) 0.5 Baso % (Auto) 0.3 Absolute Neuts (auto) 9.6 H Absolute Lymphs (auto) 2.37 Nucleated RBC % 0 Sodium 140 Potassium 3.9 Chloride 103 Carbon Dioxide 30.0 Anion Gap 7 BUN 16 Creatinine 0.85 Estim Creat Clear Calc 62.62 Est GFR (MDRD) Af Amer 91 Est GFR (MDRD) Non-Af 75 BUN/Creatinine Ratio 18.8 Glucose 86 Calcium 8.9 Troponin I High Sens 4 Radiography Diagnostic Testing: Clinical Impression(s) from Imaging Studies Chest X-Ray 04/07/22 17:30 IMPRESSION: No acute radiographic abnormalities. Electronically Signed: Andrew Noriega MD at 18:16 EST , EKG Initial EKG: Attestation: I personally reviewed and interpreted this EKG as follows: Comments: Sinus rate of 69, no ST changes. Isolated T wave version lead III. Nonspecific. Discharge Plan Triage Chief Complaint: Chest Pain ED Provider: Geovanni Mohan Dx/Rx/DC Orders Clinical Impression: Atypical chest pain, History of restless legs syndrome, Palpitation Instructions: ED Chest Pain, Uncertain Cause, ED Palpitations Prescriptions: No Action prednisone 10 mg tablet 10 mg PO .COMPLEX Qty: 30 0RF Rx Instructions: Take 4 pills for 3 days, 3 pills for 3 days, 2 pills for 3 days, take 1 pill for 3 days ropinirole [Requip] 4 MG tablet 4 mg PO QHS Label Comments: restless leg valacyclovir [Valtrex] 500 MG tablet 500 mg PO QHS Zyrtec 10 MG capsule 10 mg PO QHS albuterol sulfate 1 INHALER inhaler 2 puff inhalation Q4H PRN PRN (Reason: Wheezing) magnesium 30 MG tablet 500 mg PO DAILY fluticasone propionate [Flovent HFA] 1 INHALER inhaler 1 puff inhalation BID ondansetron 4 MG tablet 4 mg PO Q6H PRN PRN (Reason: Nausea) cyclobenzaprine 10 mg tablet 10 mg PO PRN PRN (Reason: MUSCLE SPASMS) venlafaxine [Effexor XR] 75 mg Capsule,Extended Release 24hr 75 mg PO DAILY naproxen [Naprosyn] 500 mg tablet 500 mg PO BID PRN (Reason: pain) Qty: 20 0RF Creon 36,000-114,000- 180,000 unit capsule,delayed release(DR/EC) See Rx Instructions PO .COMPLEX Qty: 300 2RF Rx Instructions: take 1 capsule with snacks, take 2 capsules with every meal sucralfate 1 gram tablet 1 g PO QAC Qty: 90 0RF omeprazole 40 mg capsule,delayed release(DR/EC) 40 mg PO BID Qty: 180 0RF Primary Care Provider: Tang Olguin Referrals: Tang Olguin, [Primary Care Provider] - 2 Days Activity Restrictions/Additional Instructions: Cardiac work-up negative. Follow-up with her doctor discussion of your medications. Return if any worsening symptoms. Disposition Disposition: Home, Self Care Discharge Date/Time: 04/07/22 19:15
[2022-04-07 17:32] LABS: Absolute Lymphocyte Count 2.37 X10^3/uL (0.83-4.51); Absolute Neutrophil Count 9.6 X10^3/uL (2.0-7.7); Basophil# 0.04 X10^3/uL; Basophil% 0.3 % (0-1); Eosinophil# 0.07 X10^3/uL; Eosinophils% 0.5 % (0-5); Hematocrit 41.2 % (37-47); Hemoglobin 13.4 g/dL (12.0-15.0); Lymphocyte # 2.37 X10^3/ul (0.83-4.51); Lymphocyte % 18.3 % (19-41); Mean Corp Hgb Conc 32.5 g/dL (32-36); Mean Corpuscular Hgb 27.6 pg (27.0-32.0); Mean Corpuscular Volume 84.9 fL (81-99); Mean Platelet Vol. 9.5 fl (6.2-12.0); Monocyte# 0.84 X10^3/uL; Monocyte% 6.5 % (0-10); NRBC Flagged by Analyzer 0 % (0-5); Neutrophil # 9.56 X10^3/uL (2.7-7.7); Neutrophil % 73.9 % (47-70); Platelet Count 294 K/mm3 (150-450); RBC Distribution Width SD 45.8 fl (35.1-43.9); Red Blood Count 4.85 M/mm3 (4.2-5.4); White Blood Count 12.9 K/mm3 (4.4-11.0)
[2022-04-07 17:55] LABS: Anion Gap 7 (5-15); BUN 16 mg/dL (7-18); BUN/Creat Ratio 18.8 RATIO (10-20); Calcium,Total 8.9 mg/dL (8.5-10.1); Chloride 103 mmol/L (98-107); Creatinine, Serum 0.85 mg/dL (0.55-1.02); EST Glomerular Filtration Rate 75 mL/min (>60); Est Glom Filt Rate - Afr Amer 91 mL/min (>60); Estimated Creatinine Clearance 62.62 ml/min; Glucose 86 mg/dL (74-106); Potassium 3.9 mmol/L (3.5-5.1); Sodium Level 140 mmol/L (136-145); Troponin-I HS (w/2H Reflex) 4 pg/mL (3.0-54.0)
[2022-04-07 18:23] VITALS: RESP 16
[2022-04-07 19:15] VITALS: BP 121/80; PULSE 75; RESP 16; O2SAT 96
[2022-04-07 19:26] LABS: Reflex Troponin-HS? (from REC) Y
== END 2022-04-07 19:15 | disposition home or self-care (01) ==
PROVIDERS: Emergency Provider Emergency Medicine; PCP Student in an Organized Health Care Education/Training Program; Visit Provider Emergency Medicine
DX: R07.89 Other chest pain (principal); E78.00 Pure hypercholesterolemia, unspecified; I10 Essential (primary) hypertension; R00.2 Palpitations; G25.81 Restless legs syndrome; Z86.718 Personal history of other venous thrombosis and embolism
CPT/HCPCS: 71046; 80048; 84484; 85025; 93005; 99284; A4216

== ENCOUNTER → 2022-05-05 | Outpatient (CLI) | payer MEDICAID, SELFPAY ==
--- NOTE | 2022-05-05 09:12 | US_ITS ---
STUDY: ULTRASOUND BREAST - RIGHT REASON FOR EXAM: Female, 51 years old. Pain in the right breast. TECHNIQUE: Axial and longitudinal images of the RIGHT breast were performed with a high resolution ultrasound transducer. # OF IMAGES: 27 COMPARISON: Comparison is made with prior mammogram done earlier today. FINDINGS: RIGHT Breast: The upper outer quadrant of the right breast was examined with ultrasound. No sonographic abnormality is seen. US/Breast Limited Unilateral IMPRESSION: No sonographic abnormality is seen. ASSESSMENT CATEGORY: BIRADS Category 1: Negative. A letter regarding these results will be sent to the patient by the facility within 30 days. Electronically Signed: Colby Cruz MD at 10:59 EST ,
--- NOTE | 2022-05-05 09:12 | BI_ITS ---
MAMMOGRAPHY - BILATERAL DIAGNOSTIC REASON FOR EXAM: Female, 51 years old. 2 week history of pain in the upper outer quadrant of the right breast. History of prior bilateral breast reduction surgery. PERTINENT HISTORY: Non-contributory. TECHNIQUE: Digital bilateral breast sandy (3D mammographic acquisition) in the CC and MLO projections. 2-D mediolateral oblique (MLO) and craniocaudad (CC) views of both breasts were obtained. CAD: Full Field Digital Mammography with Computer Added Detection was performed. COMPARISON: Comparison is made with prior examination dated 03/23/2021. FINDINGS: Breast Composition: There are scattered areas of fibroglandular density. There are no dominant masses or suspicious calcifications. No other significant abnormalities are identified. There has been no significant change since the prior study. BI/DIAG MAMM W/CAD, BILAT IMPRESSION: Stable bilateral diagnostic mammogram. With the patient''s history of pain in the upper-outer quadrant of the right breast, correlation with ultrasound is recommended. ASSESSMENT CATEGORY: BIRADS Category 0: Incomplete. Need additional imaging evaluation. A letter regarding these results will be sent to the patient by the facility within 30 days. Approximately 10% of breast cancers are not detected by mammography. A normal mammogram should not delay biopsy of a clinically suspicious abnormality. Electronically Signed: Colby Cruz MD at 10:15 EST ,
== END | disposition home or self-care (01) ==
LOC: OPBI 09:11
PROVIDERS: PCP Student in an Organized Health Care Education/Training Program; Referring Provider Obstetrics & Gynecology; Visit Provider Obstetrics & Gynecology
DX: N64.4 Mastodynia (principal); Z12.31 Encounter for screening mammogram for malignant neoplasm of breast
CPT/HCPCS: 77062; 76642; 77066; G0279

== ENCOUNTER 2022-07-25 10:58 | Emergency (ER) | payer MEDICAID, SELFPAY ==
[2022-07-25 10:58] VITALS: BP 117/82; PULSE 84; RESP 18; TEMP 36.4; O2SAT 100; BMI 40.4
--- NOTE | 2022-07-25 11:10 | EX.ED.DYSGE1 ---
HPI History of Present Illness Chief Complaint: Flank Pain Detail of Chief Complaint: Left flank pain Informant: patient Narrative Narrative: Patient presents to the emergency department with complaint of left flank pain that started this morning. Relatively sudden onset of pain that severe and currently rates it a 9 out of 10. Patient had a hard time sitting still. She describes some nausea but no vomiting. She denies fever. She denies urinary symptoms. No history of kidney stones. She did have gastric bypass surgery in May of this year. Patient denies any injury to her back. Pain radiates around the front of the abdomen towards the groin. [facility] Medical History (Reviewed 05/12/22 @ 10:31 by Patricia June [employer], [employer]-C) Acute maxillary sinusitis, unspecified Anxiety Aortic aneurysm Asthma Calcaneal spur Cardiology follow-up encounter Carpal tunnel syndrome Colon polyps Contact with and (suspected) exposure to other viral communicable diseases Delivery with history of Depressive disorder Diaphragmatic hernia without mention of obstruction or gangrene Difficulty swallowing DVT (deep venous thrombosis) Endometriosis Fatty liver Fibromyalgia Fibromyalgia muscle pain Gastric reflux GERD (gastroesophageal reflux disease) Hayfever History of echocardiogram History of hiatal hernia History of IBS History of stress test HSV infection HTN (hypertension) Hx of blood clots Hypercholesteremia Impaired fasting glucose Non-smoker Patellofemoral disorder PTSD (post-traumatic stress disorder) r middle trigger finger release Restless legs Rheumatoid arthritis Right hand paresthesia Seizures Temporomandibular joint disorder Trigger middle finger of right hand Trigger ring finger of right hand uterine ablation Vitamin D deficiency Home Medications ropinirole 4 mg tablet (Requip) 4 mg PO QHS restless legs 03/10/14 [History Last Taken 05/07/19] valacyclovir 500 mg tablet (Valtrex) 500 mg PO QHS anti viral 12/06/16 [History Last Taken 05/07/19] cetirizine 10 mg capsule (Zyrtec) 10 mg PO QHS allergies 01/22/17 [History Last Taken 05/07/19] albuterol sulfate 90 mcg/actuation aerosol inhaler 2 puff inhalation Q4H PRN PRN Wheezing 10/30/19 [History Last Taken 11/16/21] fluticasone propionate 110 mcg/actuation HFA aerosol inhaler (Flovent HFA) 1 puff inhalation BID 10/30/19 [History Last Taken Unknown] magnesium 30 mg tablet 500 mg PO DAILY 10/30/19 [History Last Taken Unknown] krijul-[id number]-[id number] 36,000-114,000-180,000 unit capsule,delay rel (Creon) See Rx Instructions PO .COMPLEX #300 caps 10/25/21 [Rx Last Taken Unknown] venlafaxine 75 mg capsule,extended release 24 hr (Effexor XR) 75 mg PO DAILY 11/10/21 [History Last Taken Unknown] losartan 50 mg tablet 50 mg PO DAILY #90 tabs 04/23/22 [Rx Last Taken Unknown] omeprazole 40 mg capsule,delayed release 40 mg PO BID #180 caps 05/12/22 [Rx Last Taken Unknown] cyclobenzaprine 10 mg tablet 10 mg PO TID PRN Muscle Spasm #20 TABLETS 07/25/22 [Rx Last Taken Unknown] hydrocodone-acetaminophen 5-325mg 5mg-325mg 1 tab PO Q4H PRN PRN Pain 2 days #10 TABLETS 07/25/22 [Rx Last Taken Unknown] naproxen 500 mg tablet (Naprosyn) 500 mg PO BID PRN pain #20 tabs 07/25/22 [Rx Last Taken Unknown] Allergy/AdvReac Type Severity Reaction Status Date / Time hydromorphone HCl Allergy Chest Verified 07/25/22 10:58 [From Dilaudid] tightness prednisone Allergy Itching Verified 07/25/22 10:58 warfarin sodium Allergy Chest Verified 07/25/22 10:58 [From Coumadin] tightness milnacipran HCl AdvReac Other Verified 07/25/22 10:58 [From Savella] pregabalin [From Lyrica] AdvReac Rash Verified 07/25/22 10:58 rivaroxaban [From Xarelto] AdvReac Nausea Verified 07/25/22 10:58 Family History Mother Hypertension Hyperlipidemia alcohol/drug addiction Allergies Father alcohol/drug addiction Sister Thyroid disorder Fibromyalgia Blindness Grandmother Emphysema lung Heart disease Grandfather Emphysema lung Brother alcohol/drug addiction Surgical History (Reviewed 05/12/22 @ 10:31 by Patricia June [employer], [employer]-C) History of bilateral breast reduction surgery History of bilateral salpingectomy History of carpal tunnel release History of esophagogastroduodenoscopy (EGD) History of laparoscopic cholecystectomy History of laparoscopic-assisted vaginal hysterectomy History of nasal surgery History of tubal ligation Hx of colonoscopy Hx of tonsillectomy S/P foot surgery, left Social History (Reviewed 05/12/22 @ 10:31 by Patricia June [employer], [employer]-C) 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 Smoking Status: Never smoker alcohol intake: former what type of physical activity do you participate in: walking seatbelt use: always do you feel safe at home: Yes additional social history: lottie COX ROS ED Review of Systems ROS Unobtainable: other Constitutional Constitutional ED: Reports lethargy; Denies chills, fever(s), sweats or weight loss Eyes Eyes: Denies blurry vision, change in vision or diplopia ENT ENT ED: Denies rhinorrhea or sore throat Cardiovascular Cardiovascular: Denies chest pain, orthopnea or racing heartbeat Respiratory/Chest Respiratory/Chest: Denies cough, dyspnea, dyspnea on exertion, orthopnea or sputum Gastrointestinal Gastrointestinal: Denies abdominal pain, diarrhea, nausea or vomiting Genitourinary Genitourinary ED: Denies dysuria, hematuria or urinary frequency Musculoskeletal Musculoskeletal: Reports back pain; Denies arthralgias, myalgias or neck pain Integumentary Denies abscess, Abrasions or rash Neurologic Neurologic: Denies headache(s) or weakness Psychiatric Psychiatric: Denies anxiety, depression or suicidal thoughts Endocrine Endocrinology: Denies polydipsia, polyphagia or polyuria Hematologic/Lymphatic Hematologic/Lymphatic: Denies easy bleeding, easy bruising or lymphadenopathy Allergic/Immunologic Allergic/Immunologic ED: Denies mouth swelling, tongue swelling or urticaria EXAM Physical Exam Const Vital Signs: 07/25/22 10:58 07/25/22 12:19 Temperature 97.6 F L Temperature Source Temporal Pulse Rate 84 61 Respiratory Rate 18 18 Blood Pressure 117/82 H 105/57 L Blood Pressure Mean 93 73 Pulse Ox 100 98 Oxygen Delivery Method Room Air Room Air Positive well nourished and well developed General Appearance ED: well developed and NAD HEENT Reports TM's clear and moist mucous membranes normocephalic and atraumatic; Negative for trauma or tenderness Tympanic Membrane ED: Yes TM's clear Eyes PERRL and EOMs intact bilaterally General Eye ED: Negative for pale conjunctiva or scleral icterus Neck no lymphadenopathy, supple and no JVD General: Negative for tenderness Chest Wall inspection of chest normal and palpation of chest normal Chest: Negative for tenderness Resp normal respiratory effort and clear to auscultation bilaterally Effort and Inspection: Negative for respiratory distress or pain with movement Auscultation: Negative for rhonchi, wheezes or diminished lung sounds Cardio regular rate, regular rhythm, S1 normal heart sound, S2 normal heart sound and no murmurs Peripheral Pulses: pulses 2+ throughout GI normal to inspection, nondistended, normoactive bowel sounds, soft to palpation, non-tender, non-distended and no masses Back/Spine no thoracic nor lumbar tenderness Back/Spine Narrative: Positive CVA tenderness on the left. Extremity normal to inspection General Extremety ED: Negative for edema General Extremity: Negative for edema Neuro oriented x3, CN's II-XII intact bilaterally, no sensory deficits noted and gait normal Sensorium / Orientation: awake, alert, oriented to person, oriented to place and oriented to time Motor Exam: strength 5/5 throughout and strength abnormal Psych mental status grossly normal Skin no rashes or lesions noted and no wounds MDM MDM MDM Narrative Medical decision making narrative: Patient with sudden onset of left flank pain initially concerning for kidney stone. She had no trauma to her back. No significant risk factors for PE. She has had prior history of DVT. Patient was medicated with morphine and Zofran as well as Toradol. CBC with differential showed a white count 7.1 with a hemoglobin of 13 and platelet count of 242. Chemistries were normal. BUN 11 and creatinine 0.66. Urinalysis was normal. We did obtain a CT flank which was negative for acute disease process and no evidence of kidney stones. I did obtain a D-dimer also given the prior history of DVT and this was normal. This point etiology of her back pain unclear although it is somewhat reproducible I suspect likely musculoskeletal at this time. Patient will be started on prescription for naproxen as well as [place] and Flexeril. Patient advised to follow-up with primary care physician within next 3 to 5 days. She is to return if worsening pain or condition should worsen I may Lab Data Attestation: I reviewed the patient's lab results. Labs: Laboratory Results - last 24 hr 07/25/22 07/25/22 07/25/22 11:20 11:20 12:12 WBC 7.1 RBC 4.68 Hgb 12.9 Hct 39.3 MCV 84.0 MCH 27.6 MCHC 32.8 RDW Std Deviation 49.0 H RDW Coeff of [place] 16.2 H Plt Count 242 MPV 10.5 Immature Gran % (Auto) 0.300 Neut % (Auto) 61.3 Lymph % (Auto) 27.9 Richardson % (Auto) 8.3 Eos % (Auto) 1.6 Baso % (Auto) 0.6 Absolute Neuts (auto) 4.3 Absolute Lymphs (auto) 1.97 Nucleated RBC % 0 D-Dimer Quant (PE/DVT) Sodium 141 Potassium 4.1 Chloride 109 H Carbon Dioxide 23.0 Anion Gap 9 BUN 11 Creatinine 0.66 Estim Creat Clear Calc 79.76 Est GFR (MDRD) Af Amer 122 Est GFR (MDRD) Non-Af 101 BUN/Creatinine Ratio 16.7 Glucose 86 Calcium 9.0 Urine Color Yellow Urine Clarity Clear Urine pH 5.0 Ur Specific [place] 1.025 Urine Protein 15 H Urine Glucose (UA) Normal Urine Ketones 5 H Urine Occult Blood Negative Urine Nitrite Negative Urine Bilirubin Negative Urine Urobilinogen 1 H Ur Leukocyte Esterase Negative Urine RBC 0 SEEN Urine WBC 0-5 SEEN Ur Squamous Epith Cells 0-5 SEEN Urine Bacteria 1+ Urine Mucus 2+ 07/25/22 13:20 WBC RBC Hgb Hct MCV MCH MCHC RDW Std Deviation RDW Coeff of [place] Plt Count MPV Immature Gran % (Auto) Neut % (Auto) Lymph % (Auto) Richardson % (Auto) Eos % (Auto) Baso % (Auto) Absolute Neuts (auto) Absolute Lymphs (auto) Nucleated RBC % D-Dimer Quant (PE/DVT) < 0.27 L Sodium Potassium Chloride Carbon Dioxide Anion Gap BUN Creatinine Estim Creat Clear Calc Est GFR (MDRD) Af Amer Est GFR (MDRD) Non-Af BUN/Creatinine Ratio Glucose Calcium Urine Color Urine Clarity Urine pH Ur Specific [place] Urine Protein Urine Glucose (UA) Urine Ketones Urine Occult Blood Urine Nitrite Urine Bilirubin Urine Urobilinogen Ur Leukocyte Esterase Urine RBC Urine WBC Ur Squamous Epith Cells Urine Bacteria Urine Mucus Discharge Plan Triage Chief Complaint: Flank Pain ED Provider: Angela Millard Dx/Rx/DC Orders Clinical Impression: Back pain Instructions: ED Back Pain (Acute or Chronic) Prescriptions: New cyclobenzaprine [cyclobenzaprine] 10 mg tablet 10 mg PO TID PRN (Reason: Muscle Spasm) Qty: 20 0RF hydrocodone-acetaminophen [hydrocodone-acetaminophen] 5-325 mg tablet 1 tab PO Q4H PRN PRN (Reason: Pain) 2 Days Qty: 10 0RF naproxen [Naprosyn] 500 mg tablet 500 mg PO BID PRN (Reason: pain) Qty: 20 0RF No Action omeprazole 40 mg capsule,delayed release(DR/EC) 40 mg PO BID Qty: 180 1RF losartan 50 mg tablet 50 mg PO DAILY Qty: 90 3RF ropinirole [Requip] 4 MG tablet 4 mg PO QHS Label Comments: restless leg valacyclovir [Valtrex] 500 MG tablet 500 mg PO QHS Zyrtec 10 MG capsule 10 mg PO QHS albuterol sulfate 1 INHALER inhaler 2 puff inhalation Q4H PRN PRN (Reason: Wheezing) magnesium 30 MG tablet 500 mg PO DAILY fluticasone propionate [Flovent HFA] 1 INHALER inhaler 1 puff inhalation BID venlafaxine [Effexor XR] 75 mg Capsule,Extended Release 24hr 75 mg PO DAILY Creon 36,000-114,000- 180,000 unit capsule,delayed release(DR/EC) See Rx Instructions PO .COMPLEX Qty: 300 2RF Rx Instructions: take 1 capsule with snacks, take 2 capsules with every meal Primary Care Provider: Tang Olguin Referrals: Tang Olguin DO [Primary Care Provider] - 3-5 Days Disposition Disposition: Home, Self Care
[2022-07-25] MEDS: 0.9% Normal Saline 1,000 ML 150 ML IV (11:21)
[2022-07-25] MEDS: Ondansetron 4 MG/2 ML Vial IV (11:21)
[2022-07-25] MEDS: Ketorolac 15 MG/ML Vial IV (11:22)
[2022-07-25] MEDS: Morphine 4 MG/ML Syringe IV ×2 (11:22→12:17)
[2022-07-25 11:25] LABS: Absolute Lymphocyte Count 1.97 X10^3/uL (0.83-4.51); Absolute Neutrophil Count 4.3 X10^3/uL (2.0-7.7); Basophil# 0.04 X10^3/uL; Basophil% 0.6 % (0-1); Eosinophil# 0.11 X10^3/uL; Eosinophils% 1.6 % (0-5); Hematocrit 39.3 % (37-47); Hemoglobin 12.9 g/dL (12.0-15.0); Lymphocyte # 1.97 X10^3/ul (0.83-4.51); Lymphocyte % 27.9 % (19-41); Mean Corp Hgb Conc 32.8 g/dL (32-36); Mean Corpuscular Hgb 27.6 pg (27.0-32.0); Mean Platelet Vol. 10.5 fl (6.2-12.0); Monocyte# 0.59 X10^3/uL; Monocyte% 8.3 % (0-10); NRBC Flagged by Analyzer 0 % (0-5); Neutrophil # 4.34 X10^3/uL (2.7-7.7); Neutrophil % 61.3 % (47-70); Platelet Count 242 K/mm3 (150-450); RBC Distribution Width CV 16.2 % (11.6-14.6); Red Blood Count 4.68 M/mm3 (4.2-5.4); White Blood Count 7.1 K/mm3 (4.4-11.0)
--- NOTE | 2022-07-25 11:38 | CT_ITS ---
EXAM: CT ABDOMEN AND PELVIS WITHOUT INTRAVENOUS CONTRAST CLINICAL INDICATION: Left flank pain TECHNIQUE: Helically acquired images were obtained of the abdomen and pelvis without intravenous contrast. This CT exam was performed using one or more of the following dose reduction techniques: automated exposure control, adjustment of the mA and/or kV according to patient size, and/or use of iterative reconstruction technique. RADIATION DOSE: CTDIvol = 20.67 mGy, DLP = 1115.59 mGy-cm COMPARISON: CT abdomen and pelvis with contrast 10/24/2021. FINDINGS: LOWER THORAX: Unremarkable. Lung bases are clear. No cardiomegaly. No significant pericardial effusion. ABDOMEN: LIVER: Unremarkable. Homogeneous. GALLBLADDER AND BILE DUCTS: Unremarkable. No calcified gallstones. No gallbladder distention or wall edema. No intra- or extrahepatic biliary ductal dilation. No visible gallbladder presumably from laparoscopic surgery. PANCREAS: Unremarkable. No focal cystic mass. SPLEEN: Unremarkable. Normal size without focal cystic or solid mass. ADRENALS: Unremarkable. No nodules. KIDNEYS AND URETERS: Unremarkable. Normal renal size and position. No hydronephrosis. STOMACH AND BOWEL: Multiple surgical sutures in the stomach from recent gastric bypass surgery. No stomach or bowel distention. No focal inflammatory change. PELVIS: APPENDIX: Normal. BLADDER: Unremarkable. REPRODUCTIVE: Unremarkable as visualized. No mass. ABDOMEN and PELVIS: INTRAPERITONEAL SPACE: Unremarkable. No ascites or other fluid collection. No free air. BONES/JOINTS: Unremarkable. No suspicious lytic or blastic abnormality. SOFT TISSUES: Unremarkable. No discrete abdominal or pelvic wall hernia. VASCULATURE: Unremarkable. Abdominal aorta is non-dilated. LYMPH NODES: Unremarkable. No enlarged lymph nodes. CT/Abdomen/Pelvis without Cont IMPRESSION: 1. No acute findings in the abdomen or pelvis. 2. No CT evidence of stones kidneys, ureters and urinary bladder. 3. No significant interval change when compared to 10/24/2021. Electronically Signed: Isma Jasmine MD at 12:22 EDT ,
[2022-07-25 11:41] LABS: Anion Gap 9 (5-15); BUN 11 mg/dL (7-18); BUN/Creat Ratio 16.7 RATIO (10-20); Chloride 109 mmol/L (98-107); Creatinine, Serum 0.66 mg/dL (0.55-1.02); EST Glomerular Filtration Rate 101 mL/min (>60); Est Glom Filt Rate - Afr Amer 122 mL/min (>60); Estimated Creatinine Clearance 79.76 ml/min; Glucose 86 mg/dL (74-106); Potassium 4.1 mmol/L (3.5-5.1); Sodium Level 141 mmol/L (136-145)
[2022-07-25 12:15] LABS: Red Blood Cells-Urine 0 SEEN /hpf (0-5)
[2022-07-25 12:19] VITALS: BP 105/57; PULSE 61; RESP 18; O2SAT 98
[2022-07-25 12:37] LABS: Color, Urine Yellow (Yellow); Glucose, Dipstick Normal (Normal); Ketone-Dipstick 5 mg/dl (Negative); Leukocyte Esterase-Dipstick Negative /ul (Negative); Nitrite-Dipstick Negative (Negative); Occult Blood-Urine Negative /ul (Negative); Protein-Dipstick 15 mg/dl (Negative); Specific Gravity, Urine 1.025 (1.002-1.030); Urine Bilirubin Dipstick Negative (Negative); Urine Clarity Clear (Clear); Urine Urobilinogen 1 mg/dl (Normal)
[2022-07-25 12:47] LABS: Bacteria 1+ /hpf (None Seen); Mucous, Urine 2+ /hpf (<or=2+); Squamous Epithelial Cells - UA 0-5 SEEN /hpf (5-10); White Blood Cells 0-5 SEEN /hpf (0-5)
[2022-07-25 13:45] LABS: D-Dimer Quantitative (DVT/PE) < 0.27 FEU/ug/m (0.27-0.49)
[2022-07-25 15:11] VITALS: BP 99/57; PULSE 57; RESP 16; O2SAT 98
== END 2022-07-25 15:12 | disposition home or self-care (01) ==
PROVIDERS: Emergency Provider Emergency Medicine; PCP Student in an Organized Health Care Education/Training Program; Visit Provider Emergency Medicine
DX: M54.9 Dorsalgia, unspecified (principal); I10 Essential (primary) hypertension; E78.00 Pure hypercholesterolemia, unspecified; G25.81 Restless legs syndrome; Z79.899 Other long term (current) drug therapy; J45.909 Unspecified asthma, uncomplicated; Z79.51 Long term (current) use of inhaled steroids; F41.9 Anxiety disorder, unspecified; F32.A Depression, unspecified; K21.9 Gastro-esophageal reflux disease without esophagitis
CPT/HCPCS: 74176; 80048; 81001; 85025; 85379; 99284; J7030; A4216; J2405

== ENCOUNTER 2022-10-02 12:59 | Emergency (ER) | payer MEDICAID, SELFPAY ==
[2022-10-02 13:00] VITALS: BP 111/83; PULSE 59; RESP 16; TEMP 36.7; O2SAT 98; BMI 38.0
--- NOTE | 2022-10-02 14:02 | CT_ITS ---
STUDY: CT ABDOMEN AND PELVIS WITH CONTRAST REASON FOR EXAM: Female, 52 years old. abd pain -- IV PO Contrast, 4 mth post [id number] RADIATION DOSAGE (If Supplied By Facility): CTDIvol = ( 16.42 ) mGy, DLP = ( 1158.85 ) mGycm TECHNIQUE: Transaxial images were obtained from the dome of the diaphragm to the symphysis pubis without oral contrast. IV 100mL Isovue-300 was administered. Sagittal and coronal images were reconstructed. Individualized dose optimization techniques were used for this CT. COMPARISON: 07/25/2022. FINDINGS: The visualized lung bases are unremarkable. The visualized portions of the heart are within normal limits. Normal liver. There is non-visualization of the gallbladder, which may be secondary to either contraction or a prior cholecystectomy. Common bile duct measures 1 cm across, worse than prior study, correlate with liver function tests. Normal spleen. Normal pancreas. Normal bilateral adrenal glands. Normal right kidney. Normal left kidney. There is a typical appearance of gastric bypass with no evidence for complication. Normal small intestine. Normal colon. The appendix is visualized and appears normal. Normal abdominal aorta. Normal inferior vena cava. Normal retroperitoneum. Normal urinary bladder. There is absence of the uterus consistent with a prior hysterectomy. Normal abdominal wall. Normal osseous structures. CT/Abdomen/Pelvis WITH Contrast IMPRESSION: Increasing distention of the common bile duct. Correlate with liver function tests. No other definite acute or significant abnormality seen. Electronically Signed: Ad Stringer MD at 16:29 EDT ,
--- NOTE | 2022-10-02 14:03 | EDS_ITS ---
HPI HPI - GI History of Present Illness Chief Complaint: Abd Pain Informant: patient Narrative Narrative: 1 week history intermittent upper abdominal pain. Nausea without vomiting. Last bowel movement 2 days ago. 3 months status post Faith-en-Y by Dr. Powell at [facility]. She is on Protonix. Was doing well. 1 week of*noted symptoms. She had a cholecystectomy approximately 7 years ago. C-sections in the past. She does states she is having increasing bloating. Positive flatus. No history of bowel obstructions. She called the surgeon office on Sunday was told to use MiraLAX she took it had bowel movements however pain is persisted. Today pain in the right lower abdomen. Called her PCP office was referred here for evaluation. No Jimmy symptoms. Prior similar symptoms: No PFSH PFSH Medical History Acute maxillary sinusitis, unspecified Anxiety Aortic aneurysm Asthma Calcaneal spur Cardiology follow-up encounter Carpal tunnel syndrome Colon polyps Contact with and (suspected) exposure to other viral communicable diseases Delivery with history of Depressive disorder Diaphragmatic hernia without mention of obstruction or gangrene Difficulty swallowing DVT (deep venous thrombosis) Endometriosis Fatty liver Fibromyalgia Fibromyalgia muscle pain Gastric reflux GERD (gastroesophageal reflux disease) Hayfever History of echocardiogram History of hiatal hernia History of IBS History of stress test HSV infection HTN (hypertension) Hx of blood clots Hypercholesteremia Impaired fasting glucose Non-smoker Patellofemoral disorder PTSD (post-traumatic stress disorder) r middle trigger finger release Restless legs Rheumatoid arthritis Right hand paresthesia Seizures Temporomandibular joint disorder Trigger middle finger of right hand Trigger ring finger of right hand uterine ablation Vitamin D deficiency Home Medications ropinirole 4 mg tablet (Requip) 4 mg PO QHS restless legs 03/10/14 [History Last Taken 05/07/19] valacyclovir 500 mg tablet (Valtrex) 500 mg PO QHS anti viral 12/06/16 [History Last Taken 05/07/19] cetirizine 10 mg capsule (Zyrtec) 10 mg PO QHS allergies 01/22/17 [History Last Taken 05/07/19] albuterol sulfate 90 mcg/actuation aerosol inhaler 2 puff inhalation Q4H PRN PRN Wheezing 10/30/19 [History Last Taken 11/16/21] fluticasone propionate 110 mcg/actuation HFA aerosol inhaler (Flovent HFA) 1 puff inhalation BID 10/30/19 [History Last Taken Unknown] magnesium 30 mg tablet 500 mg PO DAILY 10/30/19 [History Last Taken Unknown] tjcelu-zvicneka-skbrbwp 36,000-114,000-180,000 unit capsule,delay rel (Creon) See Rx Instructions PO .COMPLEX #300 caps 10/25/21 [Rx Last Taken Unknown] venlafaxine 75 mg capsule,extended release 24 hr (Effexor XR) 75 mg PO DAILY 11/10/21 [History Last Taken Unknown] losartan 50 mg tablet 50 mg PO DAILY #90 tabs 04/23/22 [Rx Last Taken Unknown] omeprazole 40 mg capsule,delayed release 40 mg PO BID #180 caps 05/12/22 [Rx Last Taken Unknown] cyclobenzaprine 10 mg tablet 10 mg PO TID PRN Muscle Spasm #20 TABLETS 07/25/22 [Rx Last Taken Unknown] hydrocodone-acetaminophen 5-325mg 5mg-325mg 1 tab PO Q4H PRN PRN Pain 2 days #10 TABLETS 07/25/22 [Rx Last Taken Unknown] naproxen 500 mg tablet (Naprosyn) 500 mg PO BID PRN pain #20 tabs 07/25/22 [Rx Last Taken Unknown] Allergy/AdvReac Type Severity Reaction Status Date / Time hydromorphone HCl Allergy Chest Verified 10/02/22 13:02 [From Dilaudid] tightness prednisone Allergy Itching Verified 10/02/22 13:02 warfarin sodium Allergy Chest Verified 10/02/22 13:02 [From Coumadin] tightness milnacipran HCl AdvReac Other Verified 10/02/22 13:02 [From Savella] pregabalin [From Lyrica] AdvReac Rash Verified 10/02/22 13:02 rivaroxaban [From Xarelto] AdvReac Nausea Verified 10/02/22 13:02 Family History Mother Hypertension Hyperlipidemia alcohol/drug addiction Allergies Father alcohol/drug addiction Sister Thyroid disorder Fibromyalgia Blindness Grandmother Emphysema lung Heart disease Grandfather Emphysema lung Brother alcohol/drug addiction Surgical History History of bilateral breast reduction surgery History of bilateral salpingectomy History of carpal tunnel release History of esophagogastroduodenoscopy (EGD) History of laparoscopic cholecystectomy History of laparoscopic-assisted vaginal hysterectomy History of nasal surgery History of tubal ligation Hx of colonoscopy Hx of tonsillectomy S/P foot surgery, left Social History 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 Smoking Status: Never smoker alcohol intake: former what type of physical activity do you participate in: walking seatbelt use: always do you feel safe at home: Yes additional social history: lottie COX ROS ED Constitutional Constitutional ED: Denies chills, fever(s) or sweats Eyes Eyes: Denies change in vision ENT ENT ED: Denies dysphagia or sore throat Cardiovascular Cardiovascular: Denies chest pain, leg edema, palpitations or racing heartbeat Respiratory/Chest Respiratory/Chest: Denies cough, dyspnea or dyspnea on exertion Gastrointestinal Gastrointestinal: Reports abdominal pain and nausea; Denies diarrhea or vomiting Genitourinary Genitourinary ED: Denies dysuria, hematuria or urinary frequency Musculoskeletal Musculoskeletal: Denies back pain, extremity pain or neck pain Integumentary Denies rash or wounds Neurologic Neurologic: Denies headache(s), paresthesias or weakness EXAM Physical Exam Const Vital Signs: 10/02/22 13:00 Temperature 98.1 F Temperature Source Temporal Pulse Rate 59 L Respiratory Rate 16 Blood Pressure 111/83 H Blood Pressure Mean 92 Pulse Ox 98 Oxygen Delivery Method Room Air Positive well nourished and well developed General Appearance ED: well developed and NAD HEENT Reports dry mucous membranes normocephalic and atraumatic Mouth ED: Yes dry mucous membranes Mouth: dry mucous membranes Eyes PERRL, EOMs intact bilaterally and conjunctivae normal General Eye ED: Yes normal appearance of both eyes Neck no lymphadenopathy and supple General: Negative for tenderness Chest Wall Chest: Negative for tenderness Resp normal respiratory effort and normal air movement Effort and Inspection: symmetric chest movement; Negative for respiratory distress Cardio regular rate, regular rhythm and no murmurs Peripheral Pulses: pulses 2+ throughout GI normal to inspection, nondistended, normoactive bowel sounds GI Narrative: Tenderness right lower quadrant hypoactive bowel sounds. Previous laparoscopic incisions healed scars. Palpation: Negative for guarding or rebound tenderness present Back/Spine no CVA tenderness and no thoracic nor lumbar tenderness Extremity normal to inspection General Extremety ED: Negative for edema or tenderness General Extremity: Negative for edema Neuro oriented x3 and no sensory deficits noted Sensorium / Orientation: awake and alert Skin no rashes or lesions noted and no wounds MDM MDM MDM Narrative Medical decision making narrative: Interventions / MDM: Differential diagnosis: Gastritis, choledocholithiasis Diagnosis considered but do not suspect: Appendicitis however CT is negative. Pancreatitis with a normal lipase My EKG interpretation: N/A Imaging independently reviewed and interpreted by myself: CT scan abdomen pelvis with p.o. and oral contrast. Normal. No abnormalities from gastric region. Reported common bile duct dilated more at 1 cm. Read by radiology. External documents reviewed: N/A Test considered but not ordered:N/A ED course: Patient with upper abdominal pain and right lower quadrant pain on my exam. 3 months out from Faith-en-Y surgery. Abdominal labs obtained contrast CT scan ordered she is ordered for morphine Zofran and fluids. 1700: CT scan results per radiology no complications Faith-en-Y region there is a normal appendix however noted increasing dilation of the common bile duct up to 1 cm. Patient will like pain liver enzymes only slightly elevated alk phos of 118. Reevaluation the patient states pain not improve nausea is improved. We will redose her pain since due to she reported dilating common bile duct will obtain ultrasound. However she is postcholecystectomy and this is a normal dilation for this. Patient will be signed out to Dr. Singh. Re-evaluation: stable Disposition discussed with patient/family/significant other: patient Case discussed with consulting clinician: N/A This note was generated with [employer] dictation software. It may contain incorrect words, spelling, and punctuation that were not noted in checking the note before signing. Lab Data Attestation: I reviewed the patient's lab results. Labs: Laboratory Results - last 24 hr 10/02/22 10/02/22 14:10 14:35 WBC 5.8 RBC 4.80 Hgb 13.6 Hct 42.7 MCV 89.0 MCH 28.3 MCHC 31.9 L RDW Std Deviation 46.4 H RDW Coeff of [place] 14.4 Plt Count 247 MPV 11.1 Immature Gran % (Auto) 0.200 Neut % (Auto) 59.3 Lymph % (Auto) 31.6 [place] % (Auto) 6.8 Eos % (Auto) 1.4 Baso % (Auto) 0.7 Absolute Neuts (auto) 3.4 Absolute Lymphs (auto) 1.82 Nucleated RBC % 0 Sodium 138 Potassium 3.8 Chloride 107 Carbon Dioxide 27.0 Anion Gap 4 L BUN 8 Creatinine 0.76 Estim Creat Clear Calc 69.26 Est GFR (MDRD) Af Amer 103 Est GFR (MDRD) Non-Af 85 BUN/Creatinine Ratio 10.5 Glucose 83 Lactic Acid 0.5 Calcium 8.7 Total Bilirubin 0.30 AST 24 ALT 35 Alkaline Phosphatase 118 H Total Protein 6.8 Albumin 3.0 L Globulin 3.8 Albumin/Globulin Ratio 0.8 L Lipase 21 Urine Color Yellow Urine Clarity Sl. Cloudy Urine pH 6.5 Ur Specific [place] 1.015 Urine Protein 15 H Urine Glucose (UA) Normal Urine Ketones Negative Urine Occult Blood Negative Urine Nitrite Negative Urine Bilirubin Negative Urine Urobilinogen 4 H Ur Leukocyte Esterase Negative Urine RBC 0 SEEN Urine WBC 0 SEEN Ur Squamous Epith Cells 0-5 SEEN Urine Bacteria 0 SEEN Urine Mucus 0 SEEN Radiography Diagnostic Testing: Clinical Impression(s) from Imaging Studies Abdomen/Pelvis CT 10/02/22 14:02 IMPRESSION: Increasing distention of the common bile duct. Correlate with liver function tests. No other definite acute or significant abnormality seen. Electronically Signed: Ad Stringer MD at 16:29 EDT Reading Location ID and State: [address] [place] [address] , Service support , Discharge Plan Triage Chief Complaint: Abd Pain ED Provider: Geovanni Mohan Dx/Rx/DC Orders Prescriptions: No Action omeprazole 40 mg capsule,delayed release(DR/EC) 40 mg PO BID Qty: 180 1RF losartan 50 mg tablet 50 mg PO DAILY Qty: 90 3RF ropinirole [Requip] 4 MG tablet 4 mg PO QHS Patient Comments: restless leg valacyclovir [Valtrex] 500 MG tablet 500 mg PO QHS Zyrtec 10 MG capsule 10 mg PO QHS albuterol sulfate 1 INHALER inhaler 2 puff inhalation Q4H PRN PRN (Reason: Wheezing) magnesium 30 MG tablet 500 mg PO DAILY fluticasone propionate [Flovent HFA] 1 INHALER inhaler 1 puff inhalation BID venlafaxine [Effexor XR] 75 mg Capsule,Extended Release 24hr 75 mg PO DAILY cyclobenzaprine [cyclobenzaprine] 10 mg tablet 10 mg PO TID PRN (Reason: Muscle Spasm) Qty: 20 0RF hydrocodone-acetaminophen [hydrocodone-acetaminophen] 5-325 mg tablet 1 tab PO Q4H PRN PRN (Reason: Pain) 2 Days Qty: 10 0RF naproxen [Naprosyn] 500 mg tablet 500 mg PO BID PRN (Reason: pain) Qty: 20 0RF Creon 36,000-114,000- 180,000 unit capsule,delayed release(DR/EC) See Rx Instructions PO .COMPLEX Qty: 300 2RF Rx Instructions: take 1 capsule with snacks, take 2 capsules with every meal Primary Care Provider: Tang Olguin Referrals: Tang Olguin DO [Primary Care Provider] -
[2022-10-02 14:26] LABS: Absolute Lymphocyte Count 1.82 X10^3/uL (0.83-4.51); Absolute Neutrophil Count 3.4 X10^3/uL (2.0-7.7); Basophil# 0.04 X10^3/uL; Basophil% 0.7 % (0-1); Eosinophil# 0.08 X10^3/uL; Eosinophils% 1.4 % (0-5); Hematocrit 42.7 % (37-47); Hemoglobin 13.6 g/dL (12.0-15.0); Lymphocyte # 1.82 X10^3/ul (0.83-4.51); Lymphocyte % 31.6 % (19-41); Mean Corp Hgb Conc 31.9 g/dL (32-36); Mean Corpuscular Hgb 28.3 pg (27.0-32.0); Mean Platelet Vol. 11.1 fl (6.2-12.0); Monocyte# 0.39 X10^3/uL; Monocyte% 6.8 % (0-10); NRBC Flagged by Analyzer 0 % (0-5); Neutrophil # 3.42 X10^3/uL (2.7-7.7); Neutrophil % 59.3 % (47-70); Platelet Count 247 K/mm3 (150-450); RBC Distribution Width CV 14.4 % (11.6-14.6); RBC Distribution Width SD 46.4 fl (35.1-43.9); White Blood Count 5.8 K/mm3 (4.4-11.0)
[2022-10-02] MEDS: Ondansetron 4 MG/2 ML Vial IV (14:27)
[2022-10-02] MEDS: Morphine 4 MG/ML Syringe IV ×2 (14:27→17:09)
[2022-10-02] MEDS: 0.9% Normal Saline 1,000 ML 1000 ML IV (14:27)
[2022-10-02 14:39] LABS: Bacteria 0 SEEN /hpf (None Seen); Mucous, Urine 0 SEEN /hpf (<or=2+); Red Blood Cells-Urine 0 SEEN /hpf (0-5); White Blood Cells 0 SEEN /hpf (0-5)
[2022-10-02 14:40] LABS: ALB/GLOB Ratio 0.8 RATIO (0.9-2.4); AST(SGOT) 24 U/L (15-37); Alanine Aminotransfer ALT/SGPT 35 U/L (13-56); Alkaline Phosphatase 118 U/L (45-117); Anion Gap 4 (5-15); BUN 8 mg/dL (7-18); BUN/Creat Ratio 10.5 RATIO (10-20); Calcium,Total 8.7 mg/dL (8.5-10.1); Chloride 107 mmol/L (98-107); Creatinine, Serum 0.76 mg/dL (0.55-1.02); EST Glomerular Filtration Rate 85 mL/min (>60); Est Glom Filt Rate - Afr Amer 103 mL/min (>60); Estimated Creatinine Clearance 69.26 ml/min; Globulin 3.8 g/dL (2.2-4.2); Glucose 83 mg/dL (74-106); Lipase 21 U/L (13-75); Potassium 3.8 mmol/L (3.5-5.1); Protein, Total 6.8 g/dL (6.4-8.2); Sodium Level 138 mmol/L (136-145)
[2022-10-02 14:47] LABS: Color, Urine Yellow (Yellow); Glucose, Dipstick Normal (Normal); Ketone-Dipstick Negative (Negative); Leukocyte Esterase-Dipstick Negative /ul (Negative); Nitrite-Dipstick Negative (Negative); Occult Blood-Urine Negative /ul (Negative); Protein-Dipstick 15 mg/dl (Negative); Specific Gravity, Urine 1.015 (1.002-1.030); Urine Bilirubin Dipstick Negative (Negative); Urine Clarity Sl. Cloudy (Clear); Urine Urobilinogen 4 mg/dl (Normal); Urine pH 6.5 (5.0 - 8.0)
[2022-10-02 15:10] LABS: Squamous Epithelial Cells - UA 0-5 SEEN /hpf (5-10)
[2022-10-02 15:16] LABS: Lactic Acid 0.5 mmol/L (0.4-1.9)
--- NOTE | 2022-10-02 16:57 | US_ITS ---
STUDY: ABDOMINAL ULTRASOUND - RIGHT UPPER QUADRANT REASON FOR VISIT: Female, 52 years old pain -- hx cholecystectomy, dilated CBD TECHNIQUE: Ultrasound evaluation of the right upper quadrant was performed with real-time and static pleitez-scale imaging. TECHNICAL QUALITY: Limited. Examination limited due to a combination of factors including obesity and bowel gas. COMPARISON: CT scan of the same day showing dilated common bile duct.. FINDINGS: Liver: The liver measures 14.2 cm. There is normal echogenicity of the liver. The bile ducts are within normal limits. There is hepatic color flow. The direction of portal flow is hepatopetal. There is no demonstrated mass lesion. Gallbladder: The patient is status post cholecystectomy. Common Bile Duct (C.B.D.): The common bile duct measures 11 mm. Pancreas: Normal size of the head, body and tail of the pancreas. There is normal echogenicity of the pancreas. There is no demonstrated pancreatic mass or cyst. Right Kidney: Normal size of the right kidney. The right kidney measures 9.7 cm. Normal renal cortex. The right cortex measures 1.8 cm. There is no demonstrated renal mass or cyst. There is no right hydronephrosis. US/Gallbladder IMPRESSION: Limited as above. As previously diagnosed on CT scan of earlier today, dilated common bile duct again noted. No additional findings. Electronically Signed: Ad Stringer MD at 18:34 EDT ,
[2022-10-02] MEDS: Famotidine 200 MG/20 ML MDV 20 MG in 0.9% Normal Saline (Pres. free 8 ML 300 MG IV (18:03)
[2022-10-02 19:37] VITALS: BP 116/69; PULSE 53; RESP 18
== END 2022-10-02 20:14 | disposition home or self-care (01) ==
PROVIDERS: Emergency Provider Emergency Medicine; PCP Student in an Organized Health Care Education/Training Program; Visit Provider Emergency Medicine
DX: R10.31 Right lower quadrant pain (principal); R11.0 Nausea; E78.00 Pure hypercholesterolemia, unspecified; I10 Essential (primary) hypertension; G89.29 Other chronic pain; R14.3 Flatulence; Z90.49 Acquired absence of other specified parts of digestive tract; Z86.718 Personal history of other venous thrombosis and embolism
CPT/HCPCS: 74177; 76705; 80053; 81001; 83605; 83690; 85025; 96361; 96374; 96375; 96376; 99283; J7030; Q9967; A4216; J2405; J3490

== ENCOUNTER → 2022-10-13 | Outpatient (CLI) | payer MEDICAID, SELFPAY ==
[2022-10-13 13:02] LABS: ALB/GLOB Ratio 0.8 RATIO (0.9-2.4); AST(SGOT) 46 U/L (15-37); Alanine Aminotransfer ALT/SGPT 56 U/L (13-56); Albumin, Serum 3.3 g/dL (3.2-5.0); Alkaline Phosphatase 146 U/L (45-117); Anion Gap 5 (5-15); BUN 9 mg/dL (7-18); Bilirubin, Direct 0.12 mg/dL (0.00-0.30); Chloride 107 mmol/L (98-107); EST Glomerular Filtration Rate 70 mL/min (>60); Est Glom Filt Rate - Afr Amer 85 mL/min (>60); Globulin 4.2 g/dL (2.2-4.2); Glucose 89 mg/dL (74-106); Potassium 3.9 mmol/L (3.5-5.1); Protein, Total 7.5 g/dL (6.4-8.2); Sodium Level 139 mmol/L (136-145)
== END | disposition home or self-care (01) ==
LOC: LAB 12:00
PROVIDERS: PCP Student in an Organized Health Care Education/Training Program; Referring Provider Internal Medicine Gastroenterology; Visit Provider Internal Medicine Gastroenterology
DX: K83.8 Other specified diseases of biliary tract (principal)
CPT/HCPCS: 36415; 80053; 82248

== ENCOUNTER → 2022-10-17 | Outpatient (CLI) | payer MEDICAID, SELFPAY ==
--- NOTE | 2022-10-17 15:44 | MRI_ITS ---
STUDY: MR MRCP WITHOUT CONTRAST REASON FOR EXAM: Female, 52 years old. dilated CBD, abd pain,bloating TECHNIQUE: Standard MRCP technique was utilized. 3-dimensional reconstruction images of the biliary tree provided. COMPARISON: 10/02/[address] FINDINGS: Gall Bladder: Gall bladder is surgically absent. Cystic duct: Cystic duct was not well visualized. Intrahepatic ducts: Normal visualized intrahepatic ducts with no demonstrated fixed filling defect, dilation or stricture. Common hepatic duct: Diffusely dilated measuring up to 9.5 mm. No filling defect or stricture. Common bile duct: Diffusely dilated measuring up to 7.8 mm with normal tapering at the ampulla. No filling defect or stricture. Pancreatic duct: Nondilated. No filling defects or strictures. The pancreatic duct drains into the minor papilla of the second portion duodenum best seen on image 5 of series 10. MRI/MRCP Abdomen without Contrast IMPRESSION: 1. Distended extrahepatic common duct likely related to increased capacitance following cholecystectomy. No biliary stricture or filling defects. 2. Pancreatic divisum Electronically Signed: Paul Berrios (Brooks), at 14:35 EDT Reading Location ID and State: [address] [place] [address] , Service support ,
== END | disposition home or self-care (01) ==
LOC: MRI 15:35
PROVIDERS: PCP Student in an Organized Health Care Education/Training Program; Referring Provider Internal Medicine Gastroenterology; Visit Provider Internal Medicine Gastroenterology
DX: K83.8 Other specified diseases of biliary tract (principal)
CPT/HCPCS: 74181

== ENCOUNTER 2022-12-11 10:32 | Emergency (ER) | payer MEDICAID, SELFPAY ==
[2022-12-11 10:34] VITALS: BP 78/40; PULSE 59; RESP 15; TEMP 36.1; O2SAT 99; BMI 37.0
--- NOTE | 2022-12-11 10:45 | ED.RN ---
THIS RN CALLED HER SPORTS WRITER ANIYAH AT [phone] PER PT REQUEST TO GIVE HER UPDATE ON HER CONDITION AND THAT SHE IS IN THE DEPARTMENT
[2022-12-11 10:54] VITALS: BP 126/77; PULSE 53; RESP 16; O2SAT 99
--- NOTE | 2022-12-11 11:03 | EKG12_ITS ---
Test Reason : CP/DIZZY Blood Pressure : / mmHG Vent. Rate : 054 BPM Atrial Rate : 054 BPM P-R Int : 168 ms QRS Dur : 076 ms QT Int : 416 ms P-R-T Axes : 053 015 021 degrees QTc Int : 394 ms Sinus bradycardia Low voltage QRS Borderline ECG Confirmed by MARCIAL NAVARRO, DIPESH ([id number]), news videotape editor YVONNE NAVA ([id number]) on 12/15/2022 2:32:54 PM Referred By: GILMAR/NACHO Confirmed By:DIPESH CEJA MD
--- NOTE | 2022-12-11 11:05 | RAD_ITS ---
STUDY: X-RAY CHEST REASON FOR EXAM: Female, 52 years old. Chest pain and dizziness. TECHNIQUE: Single AP portable view of the chest. COMPARISON: Comparison is made with prior study dated 12/06/2022. FINDINGS: EKG electrodes are seen. The lungs are clear and expanded. There is no demonstrated pleural abnormality. Normal size heart. Normal mediastinum and sagar. Normal visualized pulmonary arteries. Normal visualized aortic arch and descending thoracic aorta. Normal visualized thoracic spine. Normal visualized ribs, clavicles, and shoulders. There is no demonstrated abnormality of the visualized soft tissue structures of the upper abdomen. RAD/Chest 1 View (Portable) IMPRESSION: Normal x-ray examination of the chest. Electronically Signed: Colby Cruz MD at 11:25 EDT ,
--- NOTE | 2022-12-11 11:21 | EX.ED.DYSGE1 ---
HPI <LEE Antoine - Last Filed: 12/11/22 13:52> History of Present Illness Chief Complaint: Chest Pain Narrative Narrative: Patient is a 52 female with history of far myalgia, depression, history of Faith-en-Y gastric bypass who presents to the emergency department with 1 week of generalized feeling of unwell, 2 days of vomiting, feeling of dizziness like she might pass out as well chest pain. Patient states that she is felt chest heaviness today while she was sitting, she became weak and nauseous, felt she was in a pass out she is here for evaluation. Patient is not on any medication that affects her heart rate or her blood pressure. Patient stopped her blood pressure medicine after she lost weight from the Faith-en-Y surgery. Patient states she just feels generally not right, patient states she feels spacey. PFSH <LEE Antoine - Last Filed: 12/11/22 13:52> [facility] Medical History Acute maxillary sinusitis, unspecified Anxiety Aortic aneurysm Asthma Calcaneal spur Cardiology follow-up encounter Carpal tunnel syndrome Colon polyps Contact with and (suspected) exposure to other viral communicable diseases Delivery with history of Depressive disorder Diaphragmatic hernia without mention of obstruction or gangrene Difficulty swallowing DVT (deep venous thrombosis) Endometriosis Fatty liver Fibromyalgia Fibromyalgia muscle pain Gastric reflux GERD (gastroesophageal reflux disease) Hayfever History of echocardiogram History of hiatal hernia History of IBS History of stress test HSV infection HTN (hypertension) Hx of blood clots Hypercholesteremia Impaired fasting glucose Non-smoker Patellofemoral disorder PTSD (post-traumatic stress disorder) r middle trigger finger release Restless legs Rheumatoid arthritis Right hand paresthesia Seizures Temporomandibular joint disorder Trigger middle finger of right hand Trigger ring finger of right hand uterine ablation Vitamin D deficiency Home Medications cetirizine 10 mg capsule (Zyrtec) 10 mg PO QHS allergies 01/22/17 [History Last Taken 05/07/19] albuterol sulfate 90 mcg/actuation aerosol inhaler 2 puff inhalation Q4H PRN PRN Wheezing 10/30/19 [History Last Taken 11/16/21] magnesium 30 mg tablet 500 mg PO DAILY 10/30/19 [History Last Taken Unknown] venlafaxine 75 mg capsule,extended release 24 hr (Effexor XR) 75 mg PO DAILY 11/10/21 [History Last Taken Unknown] losartan 50 mg tablet 50 mg PO DAILY #90 tabs 04/23/22 [Rx Last Taken Unknown] omeprazole 40 mg capsule,delayed release 40 mg PO BID #180 caps 05/12/22 [Rx Last Taken Unknown] cyclobenzaprine 10 mg tablet 10 mg PO TID PRN Muscle Spasm #20 TABLETS 07/25/22 [Rx Last Taken Unknown] hydrocodone-acetaminophen 5-325mg 5mg-325mg 1 tab PO Q4H PRN PRN Pain 2 days #10 TABLETS 07/25/22 [Rx Last Taken Unknown] naproxen 500 mg tablet (Naprosyn) 500 mg PO BID PRN pain #20 tabs 07/25/22 [Rx Last Taken Unknown] hydrocodone-acetaminophen 5-325mg 5mg-325mg 1 tab PO Q6H PRN PRN Pain 3 days #10 TABLETS 10/02/22 [Rx Last Taken Unknown] ursodiol 250 mg tablet 250 mg PO BID #60 tabs 10/13/22 [Rx Last Taken Unknown] ondansetron 4 mg disintegrating tablet 4 mg PO Q8H PRN PRN Nausea #10 tabs 12/11/22 [Rx Last Taken Unknown] Allergy/AdvReac Type Severity Reaction Status Date / Time hydromorphone HCl Allergy Chest Verified 12/11/22 10:37 [From Dilaudid] tightness prednisone Allergy Itching Verified 12/11/22 10:37 warfarin sodium Allergy Chest Verified 12/11/22 10:37 [From Coumadin] tightness milnacipran HCl AdvReac Other Verified 12/11/22 10:37 [From Savella] pregabalin [From Lyrica] AdvReac Rash Verified 12/11/22 10:37 rivaroxaban [From Xarelto] AdvReac Nausea Verified 12/11/22 10:37 Family History Mother Hypertension Hyperlipidemia alcohol/drug addiction Allergies Father alcohol/drug addiction Sister Thyroid disorder Fibromyalgia Blindness Grandmother Emphysema lung Heart disease Grandfather Emphysema lung Brother alcohol/drug addiction Surgical History History of bilateral breast reduction surgery History of bilateral salpingectomy History of carpal tunnel release History of esophagogastroduodenoscopy (EGD) History of laparoscopic cholecystectomy History of laparoscopic-assisted vaginal hysterectomy History of nasal surgery History of tubal ligation Hx of colonoscopy Hx of tonsillectomy S/P foot surgery, left Social History current occupation: [employer] Smoking Status: Never smoker alcohol intake: former what type of physical activity do you participate in: walking seatbelt use: always do you feel safe at home: Yes additional social history: lottie COX <LEE Antoine - Last Filed: 12/11/22 13:52> ROS ED ROS Narrative Constitutional: Negative for fever, chills, weight loss, weakness Eyes: Negative for vision loss, vision change, double vision ENT: Negative for any sore throat, ear pain, congestion Cardiovascular: Negative for any chest pain, tightness, palpitations Respiratory: Negative for any cough, sputum production, hemoptysis, dyspnea, dyspnea on exertion, orthopnea Gastrointestinal: Negative for any diarrhea, constipation, blood in stool, blood in vomit. Positive for nausea, vomiting : Negative for any urinary frequency, dysuria, retention, blood in urine Muscle skeletal: Negative for any muscle joint pain, stiffness, myalgias, arthralgias, neck pain, back pain Neurological: Negative for any headache, syncope, numbness or tingling. Positive feeling of dizziness Skin: Negative for any rashes, lumps, itching, abrasions, lacerations Psychiatric: Negative for any depression, anxiety, stress, suicidal ideation, homicidal ideation Hematologic: Negative for any easy bruising, excessive bruising, easy bleeding Allergies: Negative for any eczema, hives, rash EXAM <LEE Antoine - Last Filed: 12/11/22 13:52> Physical Exam Narrative Exam Narrative: Vital signs reviewed. When patient was sitting up, patient heart rate went from 55-75, patient felt dizzy like he might pass out. Patient's blood pressure was 100/60 during initial evaluation. She states this is not normal for her. HEET: Head normocephalic atraumatic, TMs clear bilaterally. Posterior pharynx is clear, moist mucous membranes. Nares clear bilaterally. Neck: Supple with no lymphadenopathy or tenderness. No signs of meningismus, negative jolt sign. Cardiac: Bradycardic rhythm, rate of 55 no murmurs gallops or rubs, equal peripheral pulses bilaterally. Respiratory: Lungs clear to auscultation bilaterally. No chest tenderness. Abdomen: Soft, nondistended. No abdominal bruit or pulsatile masses. No hepatosplenomegaly. Tenderness to the right upper quadrant, history of the same, this has been ongoing. Extremities: No peripheral edema, no signs of gross trauma or deformity. Active full range of motion of all extremities. Neuro: Cranial nerves II through XII intact, no focal neurological deficits. Skin: Clean dry and intact with no rash, purpura, petechiae, vesicles or pustules. Backs/flank: No CVA tenderness, no midline spinal tenderness, no deformity. Psych: Normal mood and affect. No SI, HI or acute psychosis. Const Vital Signs: 12/11/22 10:34 12/11/22 10:54 12/11/22 11:07 Temperature 97.0 F L Temperature Source Temporal Pulse Rate 59 L 53 L Respiratory Rate 15 16 Blood Pressure 78/40 L 126/77 H Blood Pressure Mean 52 93 Pulse Ox 99 99 Oxygen Delivery Method Room Air Room Air Room Air 12/11/22 13:30 12/11/22 14:15 12/11/22 14:40 Temperature Temperature Source Pulse Rate 49 L 57 L Respiratory Rate 15 16 26 H Blood Pressure 128/116 H 124/91 H Blood Pressure Mean 122 101 Pulse Ox 96 98 99 Oxygen Delivery Method Positive well nourished <Dr. Delfina Gabriel, DO - Last Filed: 12/11/22 17:11> Physical Exam Const Vital Signs: 12/11/22 10:34 12/11/22 10:54 12/11/22 11:07 Temperature 97.0 F L Temperature Source Temporal Pulse Rate 59 L 53 L Respiratory Rate 15 16 Blood Pressure 78/40 L 126/77 H Blood Pressure Mean 52 93 Pulse Ox 99 99 Oxygen Delivery Method Room Air Room Air Room Air 12/11/22 13:30 12/11/22 14:15 12/11/22 14:40 Temperature Temperature Source Pulse Rate 49 L 57 L Respiratory Rate 15 16 26 H Blood Pressure 128/116 H 124/91 H Blood Pressure Mean 122 101 Pulse Ox 96 98 99 Oxygen Delivery Method [facility] <Ty AslLEE aponte - Last Filed: 12/11/22 13:52> [facility] Lab Data Attestation: I reviewed the patient's lab results. Labs: Laboratory Results - last 24 hr 12/11/22 12/11/22 12/11/22 10:35 11:39 13:16 WBC 6.6 RBC 4.79 Hgb 13.9 Hct 42.9 MCV 89.6 MCH 29.0 MCHC 32.4 RDW Std Deviation 44.8 H RDW Coeff of [place] 13.6 Plt Count 230 MPV 10.9 Immature Gran % (Auto) 0.200 Neut % (Auto) 57.1 Lymph % (Auto) 33.0 [place] % (Auto) 7.3 Eos % (Auto) 1.8 Baso % (Auto) 0.6 Absolute Neuts (auto) 3.8 Absolute Lymphs (auto) 2.18 Nucleated RBC % 0 Sodium 138 Potassium 4.1 Chloride 105 Carbon Dioxide 29.0 Anion Gap 4 L BUN 12 Creatinine 0.79 Estim Creat Clear Calc 66.63 Est GFR (MDRD) Af Amer 98 Est GFR (MDRD) Non-Af 81 BUN/Creatinine Ratio 15.2 Glucose 95 Calcium 9.0 Magnesium 2.3 Total Bilirubin 0.40 Direct Bilirubin 0.12 AST 31 ALT 44 Alkaline Phosphatase 138 H Troponin I High Sens 5 6 Total Protein 7.3 Albumin 3.5 Globulin 3.8 Lipase 22 Urine Color Yellow Urine Clarity Clear Urine pH 6.5 Ur Specific [place] 1.010 Urine Protein Negative Urine Glucose (UA) Normal Urine Ketones Negative Urine Occult Blood Negative Urine Nitrite Negative Urine Bilirubin Negative Urine Urobilinogen Normal Ur Leukocyte Esterase Negative Urine RBC 0 SEEN Urine WBC 0 SEEN Ur Squamous Epith Cells 0-5 SEEN Urine Bacteria 0 SEEN Urine Mucus 0 SEEN Radiography Diagnostic Testing: Clinical Impression(s) from Imaging Studies Chest X-Ray 12/11/22 11:05 IMPRESSION: Normal x-ray examination of the chest. Electronically Signed: Colby Cruz MD at 11:25 EDT , Treatment and Re-Evaluation :: Patient appears to be in no obvious distress. Patient's vital signs she states are different for her, patient states her blood pressure is normally not this low and her heart rate is not this low. Patient's physical examination is consistent with possible dehydration, patient has not been eating or drinking well the last 48 hours. Patient will receive laboratory values, cardiac work-up. Patient chest x-ray two-view by ER physician was negative. Patient's laboratory values show a normal CBC, chemistries were unremarkable, patient's alkaline phosphatase was slightly elevated 138, this is chronic. Patient's urinalysis was negative for any infection. Patient's troponin was negative. EKG was unremarkable, no evidence of any ACS or NV. Patient after 1 L of normal saline felt much better, patient was able to get up and walk and did not feel dizzy. She will receive 1 more liter of fluid. She will see a second troponin, if this is negative, patient be stable for discharge. Patient is likely suffering from dehydration, she does not drink enough water, and she is having orthostatic hypotension secondary to dehydration. This was reversed with IV fluids. She is happy the plan of care and will follow-up outpatient. <Dr. Delfina Gabriel, DO - Last Filed: 12/11/22 17:11> [facility] Lab Data Labs: Laboratory Results - last 24 hr 12/11/22 12/11/22 12/11/22 10:35 11:39 13:16 WBC 6.6 RBC 4.79 Hgb 13.9 Hct 42.9 MCV 89.6 MCH 29.0 MCHC 32.4 RDW Std Deviation 44.8 H RDW Coeff of [place] 13.6 Plt Count 230 MPV 10.9 Immature Gran % (Auto) 0.200 Neut % (Auto) 57.1 Lymph % (Auto) 33.0 [place] % (Auto) 7.3 Eos % (Auto) 1.8 Baso % (Auto) 0.6 Absolute Neuts (auto) 3.8 Absolute Lymphs (auto) 2.18 Nucleated RBC % 0 Sodium 138 Potassium 4.1 Chloride 105 Carbon Dioxide 29.0 Anion Gap 4 L BUN 12 Creatinine 0.79 Estim Creat Clear Calc 66.63 Est GFR (MDRD) Af Amer 98 Est GFR (MDRD) Non-Af 81 BUN/Creatinine Ratio 15.2 Glucose 95 Calcium 9.0 Magnesium 2.3 Total Bilirubin 0.40 Direct Bilirubin 0.12 AST 31 ALT 44 Alkaline Phosphatase 138 H Troponin I High Sens 5 6 Total Protein 7.3 Albumin 3.5 Globulin 3.8 Lipase 22 Urine Color Yellow Urine Clarity Clear Urine pH 6.5 Ur Specific [place] 1.010 Urine Protein Negative Urine Glucose (UA) Normal Urine Ketones Negative Urine Occult Blood Negative Urine Nitrite Negative Urine Bilirubin Negative Urine Urobilinogen Normal Ur Leukocyte Esterase Negative Urine RBC 0 SEEN Urine WBC 0 SEEN Ur Squamous Epith Cells 0-5 SEEN Urine Bacteria 0 SEEN Urine Mucus 0 SEEN Radiography Diagnostic Testing: Clinical Impression(s) from Imaging Studies Chest X-Ray 12/11/22 11:05 IMPRESSION: Normal x-ray examination of the chest. Electronically Signed: Colby Cruz MD at 11:25 EDT , Treatment and Re-Evaluation :: Patient appears to be in no obvious distress. Patient's vital signs she states are different for her, patient states her blood pressure is normally not this low and her heart rate is not this low. Patient's physical examination is consistent with possible dehydration, patient has not been eating or drinking well the last 48 hours. Patient will receive laboratory values, cardiac work-up. Patient chest x-ray two-view by ER physician was negative. Patient's laboratory values show a normal CBC, chemistries were unremarkable, patient's alkaline phosphatase was slightly elevated 138, this is chronic. Patient's urinalysis was negative for any infection. Patient's troponin was negative. EKG was unremarkable, no evidence of any ACS or NV. Patient after 1 L of normal saline felt much better, patient was able to get up and walk and did not feel dizzy. She will receive 1 more liter of fluid. She will see a second troponin, if this is negative, patient be stable for discharge. Patient is likely suffering from dehydration, she does not drink enough water, and she is having orthostatic hypotension secondary to dehydration. This was reversed with IV fluids. She is happy the plan of care and will follow-up outpatient. I have personally performed a face to face assessment of the patient and have reviewed the DOROTA Note. I performed a substantive portion of the visit including all aspects of the following. My pitts findings include: History is a 52-year-old female a status post Faith-en-Y gastric bypass performed at [facility] earlier this year. Presenting with lightheadedness and of vague chest discomfort. Suspect her symptoms are more from hypovolemia. She notes that she has had nausea, ongoing right upper quadrant abdominal pain (this has been worked up pretty thoroughly outpatient) and that she does not only tolerate water and does not think she is drinking enough. She is mildly hypotensive upon arrival however is fluid responsive. She is not complain of any shortness of breath or respiratory symptoms. She is not hypoxic and have a low suspicion for pulmonary emboli as a cause of her symptoms. I do suspect she is hypervolemic. Is given 2 L of fluid. States that she is feeling better. Now able to ambulate without feeling lightheaded. Counseled importance of outpatient follow-up with her surgeon as this hypovolemia is likely more of a complication associated with her Faith-en-Y bypass. She verbalized agreement understand this plan. Discharged home in stable and improved condition. Other additions or changes: [None] Discharge Plan Triage Chief Complaint: Chest Pain Other Complaint: Dizziness ED Midlevel Provider: Ty Garcia ED Provider: Delfina Gabriel Dx/Rx/DC Orders Clinical Impression: Acute dehydration, Orthostatic hypotension, Nausea & vomiting Instructions: ED Dehydration (Adult), ED Hypotension, Orthostatic Prescriptions: New ondansetron 4 mg tablet,disintegrating 4 mg PO Q8H PRN PRN (Reason: Nausea) Qty: 10 0RF No Action omeprazole 40 mg capsule,delayed release(DR/EC) 40 mg PO BID Qty: 180 1RF losartan 50 mg tablet 50 mg PO DAILY Qty: 90 3RF Zyrtec 10 MG capsule 10 mg PO QHS albuterol sulfate 1 INHALER inhaler 2 puff inhalation Q4H PRN PRN (Reason: Wheezing) magnesium 30 MG tablet 500 mg PO DAILY venlafaxine [Effexor XR] 75 mg Capsule,Extended Release 24hr 75 mg PO DAILY cyclobenzaprine [cyclobenzaprine] 10 mg tablet 10 mg PO TID PRN (Reason: Muscle Spasm) Qty: 20 0RF hydrocodone-acetaminophen [hydrocodone-acetaminophen] 5-325 mg tablet 1 tab PO Q4H PRN PRN (Reason: Pain) 2 Days Qty: 10 0RF naproxen [Naprosyn] 500 mg tablet 500 mg PO BID PRN (Reason: pain) Qty: 20 0RF hydrocodone-acetaminophen [hydrocodone-acetaminophen] 5-325 mg tablet 1 tab PO Q6H PRN PRN (Reason: Pain) 3 Days Qty: 10 0RF ursodiol 250 mg tablet 250 mg PO BID Qty: 60 0RF Primary Care Provider: Tang Olguin Referrals: Tang Olguin DO [Primary Care Provider] - Activity Restrictions/Additional Instructions: Please use the nausea medicine. Maintain hydration. Need to follow-up with your surgeon at the [facility] Disposition Disposition: Home, Self Care Discharge Date/Time: 12/11/22 14:44
[2022-12-11 11:22] LABS: Absolute Lymphocyte Count 2.18 X10^3/uL (0.83-4.51); Absolute Neutrophil Count 3.8 X10^3/uL (2.0-7.7); Basophil# 0.04 X10^3/uL; Basophil% 0.6 % (0-1); Eosinophil# 0.12 X10^3/uL; Eosinophils% 1.8 % (0-5); Hematocrit 42.9 % (37-47); Hemoglobin 13.9 g/dL (12.0-15.0); Lymphocyte # 2.18 X10^3/ul (0.83-4.51); Mean Corp Hgb Conc 32.4 g/dL (32-36); Mean Corpuscular Volume 89.6 fL (81-99); Mean Platelet Vol. 10.9 fl (6.2-12.0); Monocyte# 0.48 X10^3/uL; Monocyte% 7.3 % (0-10); NRBC Flagged by Analyzer 0 % (0-5); Neutrophil # 3.77 X10^3/uL (2.7-7.7); Neutrophil % 57.1 % (47-70); Platelet Count 230 K/mm3 (150-450); RBC Distribution Width CV 13.6 % (11.6-14.6); RBC Distribution Width SD 44.8 fl (35.1-43.9); Red Blood Count 4.79 M/mm3 (4.2-5.4); White Blood Count 6.6 K/mm3 (4.4-11.0)
[2022-12-11 11:31] LABS: Anion Gap 4 (5-15); BUN 12 mg/dL (7-18); BUN/Creat Ratio 15.2 RATIO (10-20); Chloride 105 mmol/L (98-107); Creatinine, Serum 0.79 mg/dL (0.55-1.02); EST Glomerular Filtration Rate 81 mL/min (>60); Est Glom Filt Rate - Afr Amer 98 mL/min (>60); Estimated Creatinine Clearance 66.63 ml/min; Glucose 95 mg/dL (74-106); Potassium 4.1 mmol/L (3.5-5.1); Sodium Level 138 mmol/L (136-145); Troponin-I HS (w/2H Reflex) 5 pg/mL (3.0-54.0)
[2022-12-11] MEDS: Ondansetron 4 MG/2 ML Vial IV (11:35)
[2022-12-11] MEDS: 0.9% Normal Saline (1000mL) 1,000 ML 1000 ML IV (11:35)
[2022-12-11 11:40] LABS: AST(SGOT) 31 U/L (15-37); Alanine Aminotransfer ALT/SGPT 44 U/L (13-56); Albumin, Serum 3.5 g/dL (3.2-5.0); Alkaline Phosphatase 138 U/L (45-117); Bilirubin, Direct 0.12 mg/dL (0.00-0.30); Globulin 3.8 g/dL (2.2-4.2); Lipase 22 U/L (13-75); Protein, Total 7.3 g/dL (6.4-8.2)
[2022-12-11 11:44] LABS: Bacteria 0 SEEN /hpf (None Seen); Mucous, Urine 0 SEEN /hpf (<or=2+); Red Blood Cells-Urine 0 SEEN /hpf (0-5); White Blood Cells 0 SEEN /hpf (0-5)
[2022-12-11 11:52] LABS: Color, Urine Yellow (Yellow); Glucose, Dipstick Normal (Normal); Ketone-Dipstick Negative (Negative); Leukocyte Esterase-Dipstick Negative /ul (Negative); Nitrite-Dipstick Negative (Negative); Occult Blood-Urine Negative /ul (Negative); Protein-Dipstick Negative (Negative); Urine Bilirubin Dipstick Negative (Negative); Urine Clarity Clear (Clear); Urine Urobilinogen Normal (Normal); Urine pH 6.5 (5.0 - 8.0)
[2022-12-11 12:15] LABS: Squamous Epithelial Cells - UA 0-5 SEEN /hpf (5-10)
[2022-12-11 12:30] LABS: Magnesium 2.3 mg/dL (1.6-2.6)
[2022-12-11 13:07] LABS: Reflex Troponin-HS? (from REC) Y
[2022-12-11] MEDS: 0.9% Normal Saline (1000mL) 1,000 ML 999 ML IV (13:14)
[2022-12-11 13:30] VITALS: BP 128/116; PULSE 49; RESP 15; O2SAT 96
[2022-12-11 13:41] LABS: Troponin-I HS 6 pg/mL (3.0-54.0)
[2022-12-11 14:15] VITALS: BP 124/91; PULSE 57; RESP 16; O2SAT 98
[2022-12-11 14:40] VITALS: RESP 26; O2SAT 99
== END 2022-12-11 14:44 | disposition home or self-care (01) ==
PROVIDERS: Nurse Practitioner; Emergency Provider Emergency Medicine; PCP Student in an Organized Health Care Education/Training Program; Visit Provider Emergency Medicine
DX: E86.0 Dehydration (principal); E78.00 Pure hypercholesterolemia, unspecified; I95.1 Orthostatic hypotension; R11.2 Nausea with vomiting, unspecified; I10 Essential (primary) hypertension; J45.909 Unspecified asthma, uncomplicated; Z86.718 Personal history of other venous thrombosis and embolism; Z98.84 Bariatric surgery status
CPT/HCPCS: 71045; 80048; 80076; 81001; 83690; 83735; 84484; 85025; 93005; 96361; 96374; 99283; J7030; A4216; J2405

== ENCOUNTER 2023-04-26 09:28 | Day surgery (SDC) | payer MEDICAID, SELFPAY ==
[2023-04-26 09:53] VITALS: BP 104/72; PULSE 60; RESP 16; TEMP 36.3; O2SAT 100; BMI 34.9
--- NOTE | 2023-04-26 10:30 | EGD_PTH ---
PATHOLOGY RESULTS PATIENT: CLARISA CHO LOC: EN U#:[id number] AGE/SX: 52/F ROOM: RE04/26/[address]: Dr. Faraz Cortez DO : 1970 BED: DIS: 04/26/2023 SPEC #: [id number] RECD: 04/26/23 13:21 STATUS: SEDRICK REPratibha #: [id number] CHAMP: 04/26/23 10:[address]: Faraz Cortez DEPT: SURGICAL PATHOLOGY RECD BY: Adriana Bentley ENTERED: 04/26/23 13:39 SP TYPE: EGD BIOPSY OTHR DR: Dr. Tang Olguin DO Tissues: Esophagus, NOS Procedures: Special Stain Group II Surgery Specimen Level IV Alcian Blue/PAS (control) HEADER OPERATION: EGD with biopsy PRE-OP DIAGNOSIS: Gastritis, anemia, dilated CBD, Osman's TISSUE SUBMITTED: Distal esophagus MICROSCOPIC DIAGNOSIS Distal esophagus, biopsy: Gastroesophageal junctional mucosa with chronic inflammation. No evidence of goblet cell metaplasia. See comment. AM:yaritza 04/30/2023 COMMENT Alcian blue/PAS stain with matched control supports the above diagnosis. MICROSCOPIC DESCRIPTION Slides are reviewed. GROSS DESCRIPTION Received in fixative is one container labeled with the patient's name and designated distal esophagus. The specimen consists of multiple irregular fragments of light krause soft tissue that in aggregate measure 1.5 x 0.3 x 0.1 cm. The specimen is totally submitted in one cassette. ZAID/rd 04/26/23 TC:3 CPT: 89979
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
--- NOTE | 2023-04-26 10:48 | OP.EGD_ITS ---
Patient Name: Ning Ann Procedure Date: 04/26/2023 10:33 AM Date of : 1970 Age: 52 Procedure: Upper GI endoscopy Indications: Heartburn, Follow-up of Osman's esophagus Providers: Faraz Cortez DO Medicines: Monitored Anesthesia Care Patient Profile: This is a 52 year old female. Refer to note in patient chart for documentation of history and physical. Patient has symptoms of chronic heartburn and chronic nausea. Complications: No immediate complications. Procedure: Pre-Anesthesia Assessment: - Prior to the procedure, a History and Physical was performed, and patient medications and allergies were reviewed. The patient is competent. The risks and benefits of the procedure and the sedation options and risks were discussed with the patient. All questions were answered and informed consent was obtained. Patient identification and proposed procedure were verified by the physician in the pre-procedure area. Mental Status Examination: alert and oriented. Airway Examination: normal oropharyngeal airway and neck mobility. Respiratory Examination: clear to auscultation. CV Examination: normal. Prophylactic Antibiotics: The patient does not require prophylactic antibiotics. Prior Anticoagulants: The patient has taken no anticoagulant or antiplatelet agents. After reviewing the risks and benefits, the patient was deemed in satisfactory condition to undergo the procedure. The anesthesia plan was to use monitored anesthesia care (MAC). Immediately prior to administration of medications, the patient was re-assessed for adequacy to receive sedatives. The heart rate, respiratory rate, oxygen saturations, blood pressure, adequacy of pulmonary ventilation, and response to care were monitored throughout the procedure. The physical status of the patient was re-assessed after the procedure. After obtaining informed consent, the endoscope was passed under direct vision. Throughout the procedure, the patient's blood pressure, pulse, and oxygen saturations were monitored continuously. The gastroscope was introduced through the mouth, and advanced to the second part of duodenum. The upper GI endoscopy was accomplished without difficulty. The patient tolerated the procedure well. Scope In: 10:41:28 AM Scope Out: 10:44:23 AM Total Procedure Duration Time 0 hours 2 minutes 55 seconds Findings: There were esophageal mucosal changes secondary to established short-segment Osman's disease present in the lower third of the esophagus. The maximum longitudinal extent of these mucosal changes was 2 cm in length. Mucosa was biopsied with a cold forceps for histology in a targeted manner at intervals of 1 cm in the lower third of the esophagus. One specimen bottle was sent to pathology. Verification of patient identification for the specimen was done. Estimated blood loss was minimal. Evidence of a Faith-en-Y gastrojejunostomy was found. The gastrojejunal anastomosis was characterized by healthy appearing mucosa. This was traversed. The sglzf-[id number]-[id number] limb was characterized by healthy appearing mucosa. The jejunojejunal anastomosis was characterized by healthy appearing mucosa. The yhtdexdg-se-vzyqxfn limb was not examined as it could not be found. The excluded stomach was not examined as it could not be found. The examined jejunum was normal. Impression: - Esophageal mucosal changes secondary to established short-segment Osman's disease. Biopsied. - Faith-en-Y gastrojejunostomy with gastrojejunal anastomosis characterized by healthy appearing mucosa. - Normal examined jejunum. Recommendation: - Discharge patient to home. - Resume previous diet. - Continue present medications. - Await pathology results. Procedure Code(s): --- Professional --- 61097, Esophagogastroduodenoscopy, flexible, transoral; with biopsy, single or multiple CPT copyright 2021 [employer]. All rights reserved. The codes documented in this report are preliminary and upon operations intelligence review may be revised to meet current compliance requirements. Faraz Cortez DO 04/26/2023 10:47:51 AM This report has been signed electronically. Number of Addenda: 0 Note Initiated On: 04/26/2023 10:33 AM
--- NOTE | 2023-04-26 10:48 | OP.CCLET_ITS ---
04/26/2023 Tang Olguin [address] [place] [address] Re : Upper GI endoscopy procedure for Ning Ann Dear Dr. Olguin This procedure was performed on April. My impressions and recommendations are as follows: Impressions : - Esophageal mucosal changes secondary to established short-segment Osman's disease. Biopsied. - Faith-en-Y gastrojejunostomy with gastrojejunal anastomosis characterized by healthy appearing mucosa. - Normal examined jejunum. Recommendations : - Discharge patient to home. - Resume previous diet. - Continue present medications. - Await pathology results. My findings are described in the full procedure note, which is enclosed. If I can be of further assistance, please feel free to contact me at . Sincerely, Faraz Cortez, 04/26/2023 10:47:51 AM This report has been signed electronically.
[2023-04-26 10:50] VITALS: BP 100/84; BP 104/72; PULSE 69; RESP 16; TEMP 36.1; O2SAT 94
[2023-04-26 10:55] VITALS: BP 104/72; BP 99/62; PULSE 62; RESP 16; O2SAT 93
[2023-04-26 10:58] VITALS: BP 104/72
[2023-04-26 11:00] VITALS: BP 104/72; BP 99/70; PULSE 64; RESP 16; TEMP 36.6; O2SAT 96
[2023-04-26 11:20] VITALS: BP 104/72
== END 2023-04-26 11:29 | disposition home or self-care (01) ==
LOC: EN 09:29 → AC 09:30
PROVIDERS: PCP Student in an Organized Health Care Education/Training Program; Referring Provider Student in an Organized Health Care Education/Training Program; Visit Provider Internal Medicine Gastroenterology
PROC: 0DJ08ZZ Inspection of Upper Intestinal Tract, Via Natural or Artificial Opening Endoscopic (ICD-10-PCS; CPT 43235; principal; 2023-04-26 10:25)
DX: K22.70 Barrett's esophagus without dysplasia (principal); E78.00 Pure hypercholesterolemia, unspecified; L29.9 Pruritus, unspecified; I10 Essential (primary) hypertension; K31.89 Other diseases of stomach and duodenum; R12 Heartburn; M79.7 Fibromyalgia; D50.9 Iron deficiency anemia, unspecified; Z79.01 Long term (current) use of anticoagulants; Z98.84 Bariatric surgery status; K29.50 Unspecified chronic gastritis without bleeding
CPT/HCPCS: 43239; 88305; 88313; J7120; J2405

== ENCOUNTER 2023-05-29 10:37 | Emergency (ER) | payer MEDICAID, SELFPAY ==
[2023-05-29] VITALS (8 sets, daily range): BP systolic 114–147; BP diastolic 68–97; PULSE 54–69; RESP 10–20; TEMP 36.4–36.7; O2SAT 95–100; BMI 33.7
--- NOTE | 2023-05-29 11:07 | EDS_ITS ---
HPI History of Present Illness Chief Complaint: Chest Pain Informant: patient Onset/Context/Timing Onset: Days (2) Activity at onset: sudden Timing: Continuous Quality: Positive for Heaviness Location: Substernal Worsened By: Nothing Relieved By: Nothing Associated Symptoms: Positive for Cough, Lightheadedness, Acid Reflux and Palpitations; Negative for Nausea, Vomiting, Diaphoresis, Dyspnea or Fever Narrative Narrative: Patient presents with chest pain and right leg pain that began 2 days ago. Patient states it came on rather suddenly. Patient states it has been constant. Patient describes it as a heaviness. Patient states it is over the substernal area. Patient states nothing makes it better nothing makes it worse. Patient admits to some swelling in her right leg. Patient also admits to some aching in her right calf. Patient is concerned for possible DVT. Patient states she has had a DVT in the past. [facility] Medical History Acute maxillary sinusitis, unspecified Acute otitis externa of left ear Anxiety Aortic aneurysm Asthma Calcaneal spur Cardiology follow-up encounter Carpal tunnel syndrome Colon polyps Contact with and (suspected) exposure to other viral communicable diseases Delivery with history of Depressive disorder Diaphragmatic hernia without mention of obstruction or gangrene Difficulty swallowing DVT (deep venous thrombosis) Endometriosis Fatty liver Fibromyalgia Fibromyalgia muscle pain Gastric reflux GERD (gastroesophageal reflux disease) Hayfever History of echocardiogram History of hiatal hernia History of IBS History of stress test HSV infection HTN (hypertension) Hx of blood clots Hypercholesteremia Impaired fasting glucose Non-smoker Patellofemoral disorder PTSD (post-traumatic stress disorder) r middle trigger finger release Restless legs Rheumatoid arthritis Right hand paresthesia Seizures Temporomandibular joint disorder Trigger middle finger of right hand Trigger ring finger of right hand uterine ablation Vitamin D deficiency Home Medications cetirizine 10 mg capsule (Zyrtec) 10 mg PO QHS allergies 01/22/17 [History Last Taken 05/07/19] albuterol sulfate 90 mcg/actuation aerosol inhaler 2 puff inhalation Q4H PRN PRN Wheezing 10/30/19 [History Last Taken 11/16/21] ondansetron 4 mg disintegrating tablet 4 mg PO Q8H PRN PRN Nausea #10 tabs 12/11/22 [Rx Last Taken Unknown] cholestyramine (with sugar) 4 gram oral powder 2 g PO DAILY #378 grams 04/20/23 [Rx Last Taken Unknown] duloxetine 30 mg capsule,delayed release 30 mg PO DAILY #30 caps 04/20/23 [Rx Last Taken Unknown] escitalopram oxalate 5 mg tablet 5 mg PO DAILY 04/20/23 [History Last Taken Unknown] pantoprazole 40 mg tablet,delayed release 40 mg PO DAILY 04/20/23 [History Last Taken Unknown] vitamin #56-iron 35 mg and 5 mg-folic acid 1 mg-dha capsule 1 cap PO DAILY 04/20/23 [History Last Taken Unknown] valacyclovir 500 mg tablet 500 mg PO DAILY 04/20/23 [History Last Taken Unknown] pseudoephedrine 60 mg-DM 15 mg-guaifenesin 400 mg tablet (Capmist DM) 1 tab PO Q4-6H PRN cold symptoms #20 tabs 05/03/23 [Rx Last Taken Unknown] Allergy/AdvReac Type Severity Reaction Status Date / Time hydromorphone HCl Allergy Chest Verified 05/29/23 10:40 [From Dilaudid] tightness prednisone Allergy Itching Verified 05/29/23 10:40 warfarin sodium Allergy Chest Verified 05/29/23 10:40 [From Coumadin] tightness milnacipran HCl AdvReac Other Verified 05/29/23 10:40 [From Savella] pregabalin [From Lyrica] AdvReac Rash Verified 05/29/23 10:40 rivaroxaban [From Xarelto] AdvReac Nausea Verified 05/29/23 10:40 Family History Mother Hypertension Hyperlipidemia alcohol/drug addiction Allergies Father alcohol/drug addiction Sister Thyroid disorder Fibromyalgia Blindness Grandmother Emphysema lung Heart disease Grandfather Emphysema lung Brother alcohol/drug addiction Surgical History History of bilateral breast reduction surgery History of bilateral salpingectomy History of carpal tunnel release History of esophagogastroduodenoscopy (EGD) History of laparoscopic cholecystectomy History of laparoscopic-assisted vaginal hysterectomy History of nasal surgery History of tubal ligation History of weight loss surgery Hx of colonoscopy Hx of tonsillectomy S/P foot surgery, left Social History 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 Smoking Status: Never smoker alcohol intake: former what type of physical activity do you participate in: walking seatbelt use: always do you feel safe at home: Yes additional social history: lottie COX ROS ED Constitutional Constitutional ED: Denies chills or fever(s) Eyes Eyes: Denies blurry vision or change in vision ENT ENT ED: Reports sore throat; Denies rhinorrhea Cardiovascular Cardiovascular: Reports chest pain, palpitations and racing heartbeat Respiratory/Chest Respiratory/Chest: Reports cough; Denies dyspnea Gastrointestinal Gastrointestinal: Denies nausea or vomiting Genitourinary Genitourinary ED: Denies dysuria or hematuria Musculoskeletal Musculoskeletal: Denies back pain or neck pain Integumentary Denies abscess or rash Neurologic Neurologic: Reports headache(s); Denies weakness Allergic/Immunologic Allergic/Immunologic ED: Denies mouth swelling or urticaria EXAM Physical Exam Const Vital Signs: 05/29/23 10:38 05/29/23 10:38 05/29/23 10:44 Temperature 97.6 F L 97.6 F L Temperature Source Temporal Temporal Pulse Rate 63 60 Respiratory Rate 15 15 Respiratory Effort Normal Blood Pressure 147/97 H 147/97 H Blood Pressure Mean 113 113 Pulse Ox 100 100 Oxygen Delivery Method Room Air Room Air 05/29/23 11:14 05/29/23 11:19 05/29/23 11:30 Temperature Temperature Source Pulse Rate 57 L 57 L Respiratory Rate 11 L 10 L Respiratory Effort Blood Pressure 116/82 H 125/85 H Blood Pressure Mean 92 98 Pulse Ox 100 100 100 Oxygen Delivery Method Room Air 05/29/23 11:40 05/29/23 11:45 05/29/23 12:00 Temperature Temperature Source Pulse Rate 69 54 L 62 Respiratory Rate 20 H 18 18 Respiratory Effort Blood Pressure 129/78 H 114/68 Blood Pressure Mean 95 84 Pulse Ox 98 95 98 Oxygen Delivery Method Positive well nourished and well developed General Appearance ED: well developed and NAD HEENT Reports moist mucous membranes Neck supple and no JVD Chest Wall Chest Narrative: There is some mild tenderness over the sternal area with palpation. There is no bony crepitance or step-off noted. Resp normal respiratory effort and clear to auscultation bilaterally Cardio regular rate and regular rhythm GI soft to palpation, non-tender and non-distended Extremity Extremity Narrative: There is some mild calf tenderness on the right. There is no pain with dorsiflexion of the ankle. There is some pain with squeezing of the calf. Pedal pulses are equal bilaterally. Sensation was intact to light touch bilaterally in the lower extremities. Strength is 5/5 bilaterally in the lower extremities. Neuro oriented x3, CN's II-XII intact bilaterally and no sensory deficits noted Sensorium / Orientation: awake and alert Motor Exam: strength 5/5 throughout Heart Score History: Slightly/Non-Suspicious ECG: Normal Age: >45 - <65 years Risk Factors: No Risk Factors Troponin: </= Normal Limit Score: 1 MDM MDM MDM Narrative Medical decision making narrative: Differential diagnosis includes DVT, PE, cardiac dysrhythmia, cardiac ischemia, pneumonia, electrolyte abnormality, and musculoskeletal pain. Venous duplex of the right lower extremity will be obtained to assess for DVT. CTA of the chest will be obtained to assess for pulmonary embolism. EKG will be obtained to assess for cardiac dysrhythmia and cardiac ischemia. CBC will be obtained to assess for leukocytosis and anemia. Basic metabolic profile will be obtained to assess for electrolyte abnormality and renal function. High-sensitivity troponin will be obtained to assess for cardiac ischemia. Lab Data Attestation: I reviewed the patient's lab results. Lab results narrative: CBC was reviewed and was within normal limits. Basic metabolic profile was rev iewed and was within normal limits. High-sensitivity troponin was reviewed and was normal at 6. Labs: Laboratory Results - last 24 hr 05/29/23 10:55 WBC 6.3 RBC 4.98 Hgb 14.5 Hct 45.0 MCV 90.4 MCH 29.1 MCHC 32.2 RDW Std Deviation 44.9 H RDW Coeff of [place] 13.6 Plt Count 229 MPV 10.7 Immature Gran % (Auto) 0.300 Neut % (Auto) 54.9 Lymph % (Auto) 35.6 [place] % (Auto) 7.0 Eos % (Auto) 1.3 Baso % (Auto) 0.9 Absolute Neuts (auto) 3.5 Absolute Lymphs (auto) 2.25 Nucleated RBC % 0 Sodium 139 Potassium 3.6 Chloride 102 Carbon Dioxide 29.0 Anion Gap 8 BUN 10 Creatinine 0.74 Estim Creat Clear Calc 89.12 Est GFR (MDRD) Af Amer 105 Est GFR (MDRD) Non-Af 87 BUN/Creatinine Ratio 13.4 Glucose 88 Calcium 9.3 Troponin I High Sens 6 Radiography CTA PE Study: No Evidence of PE and No Evidence of Dissection Diagnostic Testing: Venous duplex of the right lower extremity was obtained. There is no evidence of DVT noted. CTA of the chest was obtained. There is no evidence of pulmonary embolism or aortic dissection. This was interpreted by the radiologist and was also independently reviewed by myself. EKG Initial EKG: Attestation: I personally reviewed and interpreted this EKG as follows: Interpretation: No Acute Injury Pattern and Sinus Bradycardia (55) Comments: EKG was obtained. On my independent interpretation, it showed a sinus bradycardia with a rate of 55. NM interval, QRS interval, and QTc intervals were all normal. [place] was normal. There are no acute ST or T wave changes. Prior EKG tracings: available for review Prior: Unchanged (12/11/2022) Treatment and Re-Evaluation :: Patient was advised of her findings. Patient is resting comfortably on reevaluation. Patient has a HEART score of 1. Patient was advised that this is low risk for acute cardiac event. Patient was instructed to follow-up with her primary care physician in 5 to 7 days. Patient was instructed take Tylenol or ibuprofen as needed for pain. Patient understood and was agreeable with the plan. All questions were answered. Discharge Plan Triage Chief Complaint: Chest Pain Other Complaint: Lower Extremity Injury ED Provider: Hardeep Mascorro Dx/Rx/DC Orders Clinical Impression: Pain in right lower leg, Chest pain of uncertain etiology Instructions: ED Chest Pain, Uncertain Cause, ED Pain, Acute, Uncertain Cause, ED Muscle Strain, Extremity Prescriptions: No Action valacyclovir 500 mg tablet 500 mg PO DAILY Patient Comments: TAKE 1 TABLET BY MOUTH 2 TIMES A DAY pantoprazole 40 mg tablet,delayed release (DR/EC) 40 mg PO DAILY Patient Comments: TAKE 1 TABLET BY MOUTH EVERY DAY escitalopram oxalate 5 mg tablet 5 mg PO DAILY Patient Comments: TAKE 1 TABLET BY MOUTH AT BEDTIME FOR MOOD PNV #[id number] acid-dha 35 mg iron-5 mg iron-1 mg capsule 1 cap PO DAILY cholestyramine (with sugar) 4 gram powder 2 g PO DAILY Qty: 378 0RF Rx Instructions: administer w/meal; avoid other meds within 1hr before or 4-6hr after dose duloxetine 30 mg capsule,delayed release(DR/EC) 30 mg PO DAILY Qty: 30 3RF Capmist DM 60-15-400 mg tablet 1 tab PO Q4-6H PRN (Reason: cold symptoms) Qty: 20 0RF Rx Instructions: do not exceed 4 doses per 24 hrs Zyrtec 10 MG capsule 10 mg PO QHS albuterol sulfate 1 INHALER inhaler 2 puff inhalation Q4H PRN PRN (Reason: Wheezing) ondansetron 4 mg tablet,disintegrating 4 mg PO Q8H PRN PRN (Reason: Nausea) Qty: 10 0RF Primary Care Provider: Tang Olguin Referrals: Tang Olguin DO [Primary Care Provider] - 5-7 Days Disposition Disposition: Home, Self Care
--- NOTE | 2023-05-29 11:14 | EKG12_ITS ---
Test Reason : CP Blood Pressure : / mmHG Vent. Rate : 055 BPM Atrial Rate : 055 BPM P-R Int : 168 ms QRS Dur : 072 ms QT Int : 404 ms P-R-T Axes : 070 042 030 degrees QTc Int : 386 ms Sinus bradycardia Otherwise normal ECG When compared with ECG of 11-DEC-2022 10:43, No significant change was found Confirmed by Evaristo Luis ([id number]), newspaper managing editor DAMARI PACK ([id number]) on 06/01/2023 6:24:43 AM Referred By: ROSANGELA/RU Confirmed By:Evaristo Luis
--- NOTE | 2023-05-29 11:14 | VDLE_ITS ---
Reason For Study: Right leg jaqueline RIGHT LEFT GSV is normal. CFV is compressible, spontaneous, phasic, CFV is compressible, spontaneous, phasic, competent, and demonstrates normal competent and demonstrates normal augmentation. augmentation. FV is compressible, spontaneous, phasic, competent and demonstrates normal augmentation. POP V is compressible, spontaneous, phasic, competent and demonstrates normal augmentation. T/P Trunk is compressible. PTV is compressible. RT PerV is compressible. Procedure This is a venous duplex using B-mode, color flow and spectral Doppler. Exam performed portable in ED. A preliminary report was called and/or faxed to Dr. Mascorro. VL/Venous Duplex US, Unilateral Interpretation Summary There is no evidence of right lower extremity deep vein thrombosis. Right great saphenous vein appears patent and compressible segmentally. Normal flow patterns left common f emoral vein Ordering Physician: Hardeep Mascorro Referring Physician: Tang York Performed By: Kenya Escoto RVT
[2023-05-29] MEDS: Aspirin 81 MG TAB.CHEW 324 MG PO (11:19)
[2023-05-29 11:27] LABS: Absolute Lymphocyte Count 2.25 X10^3/uL (0.83-4.51); Absolute Neutrophil Count 3.5 X10^3/uL (2.0-7.7); Basophil# 0.06 X10^3/uL; Basophil% 0.9 % (0-1); Eosinophil# 0.08 X10^3/uL; Eosinophils% 1.3 % (0-5); Hemoglobin 14.5 g/dL (12.0-15.0); Lymphocyte # 2.25 X10^3/ul (0.83-4.51); Lymphocyte % 35.6 % (19-41); Mean Corp Hgb Conc 32.2 g/dL (32-36); Mean Corpuscular Hgb 29.1 pg (27.0-32.0); Mean Corpuscular Volume 90.4 fL (81-99); Mean Platelet Vol. 10.7 fl (6.2-12.0); Monocyte# 0.44 X10^3/uL; NRBC Flagged by Analyzer 0 % (0-5); Neutrophil # 3.47 X10^3/uL (2.7-7.7); Neutrophil % 54.9 % (47-70); Platelet Count 229 K/mm3 (150-450); RBC Distribution Width CV 13.6 % (11.6-14.6); RBC Distribution Width SD 44.9 fl (35.1-43.9); Red Blood Count 4.98 M/mm3 (4.2-5.4); White Blood Count 6.3 K/mm3 (4.4-11.0)
[2023-05-29 11:43] LABS: Anion Gap 8 (5-15); BUN 10 mg/dL (7-18); BUN/Creat Ratio 13.4 RATIO (10-20); Calcium,Total 9.3 mg/dL (8.5-10.1); Chloride 102 mmol/L (98-107); Creatinine, Serum 0.74 mg/dL (0.55-1.02); EST Glomerular Filtration Rate 87 mL/min (>60); Est Glom Filt Rate - Afr Amer 105 mL/min (>60); Estimated Creatinine Clearance 89.12 ml/min; Glucose 88 mg/dL (74-106); Potassium 3.6 mmol/L (3.5-5.1); Sodium Level 139 mmol/L (136-145); Troponin-I HS 6 pg/mL (3.0-54.0)
--- NOTE | 2023-05-29 12:00 | CT_ITS ---
STUDY: CTA CHEST REASON FOR EXAM: Female, 53 years old. Chest pain RADIATION DOSAGE (If Supplied By Facility): CTDIvol = ( 12.10 ) mGy, DLP = ( 527.34 ) mGycm TECHNIQUE: The examination was performed with the intravenous administration of IV 100mL [id number]-370. Post-processing of the angiographic images was performed, with multiplanar reformation and 3D reconstruction. Individualized dose optimization techniques were used for this CT. COMPARISON: Comparison is made with prior study dated March 20, 2017. FINDINGS: Normal enhancement of the main pulmonary artery and right and left pulmonary arteries. Normal enhancement of the bilateral peripheral pulmonary arteries. There is no demonstrated pulmonary embolism. Normal thoracic aorta and visualized great vessels. There is no demonstrated aortic dissection. Normal heart and pericardium. Normal mediastinum. Normal hilar regions. Normal visualized trachea and bronchi. The lungs are well expanded. Normal pulmonary parenchyma. Normal pleura. Normal chest wall structures. There are degenerative changes of thoracic spine. Status post cholecystectomy. Surgical anastomosis seen in the left upper quadrant involving the small bowel. Subtotal gastrectomy. CT/CTA Chest W/WO Contrast IMPRESSION: No evidence of pulmonary embolism. No acute abnormality is seen. Electronically Signed: Colby Cruz MD at 13:27 EDT ,
== END 2023-05-29 13:19 | disposition home or self-care (01) ==
PROVIDERS: Emergency Provider Emergency Medicine; PCP Student in an Organized Health Care Education/Training Program; Visit Provider Emergency Medicine
DX: R07.9 Chest pain, unspecified (principal); M79.661 Pain in right lower leg; I10 Essential (primary) hypertension; F41.9 Anxiety disorder, unspecified; F32.A Depression, unspecified; Z79.899 Other long term (current) drug therapy; K21.9 Gastro-esophageal reflux disease without esophagitis; Z90.49 Acquired absence of other specified parts of digestive tract; Z98.51 Tubal ligation status; Z90.710 Acquired absence of both cervix and uterus
CPT/HCPCS: 71275; 80048; 84484; 85025; 93005; 93971; 99285; Q9967

== ENCOUNTER → 2023-10-22 | Outpatient (CLI) | payer OTHER, SELFPAY ==
--- NOTE | 2023-10-22 13:50 | VDLE_ITS ---
Reason For Study: Swelling LLE RIGHT LEFT CFV is compressible, spontaneous, phasic, GSV is normal. competent and demonstrates normal CFV is compressible, spontaneous, phasic, augmentation. competent, and demonstrates normal Procedure augmentation. This is a venous duplex using B-mode, color FV is compressible, spontaneous, phasic, flow and spectral Doppler. competent and demonstrates normal Exam performed in department. augmentation. A preliminary report was called and/or faxed POP V is compressible, spontaneous, phasic, to Debbie Ying [employer]PERATOR. competent and demonstrates normal augmentation. T/P Trunk is compressible. PTV is compressible. LT PerV is compressible. VL/Venous Duplex US, Unilateral Interpretation Summary Deep veins of the left lower extremity are patent and compressible segmentally. There is no evidence of left lower extremity deep vein thrombosis. The left great saphenous vein anastasia ears patent and compressible segmentally. Ordering Physician: Debbie Ying Referring Physician: Tang Olguin Performed By: Lian Cooper, MAXWELL, RVT
== END | disposition home or self-care (01) ==
PROVIDERS: PCP Student in an Organized Health Care Education/Training Program; Referring Provider Nurse Practitioner Women's Health; Visit Provider Nurse Practitioner Women's Health
DX: Z86.718 Personal history of other venous thrombosis and embolism (principal)
CPT/HCPCS: 93971

== ENCOUNTER → 2024-01-07 | Outpatient (CLI) | payer OTHER, SELFPAY ==
--- NOTE | 2024-01-07 11:25 | RAD_ITS ---
STUDY: X-RAY CHEST REASON FOR EXAM: Female, 53 years old. Cough and headache. Shortness of breath. TECHNIQUE: PA and lateral views of the chest. COMPARISON: Comparison is made with prior study dated December 11, 2022. FINDINGS: The lungs are clear and expanded. Scattered calcified granulomas. There is no demonstrated pleural abnormality. Normal size heart. Normal mediastinum and sagar. Normal visualized pulmonary arteries. Normal visualized aortic arch and descending thoracic aorta. Normal visualized thoracic spine. Normal visualized ribs, clavicles, and shoulders. Surgical clips are seen in the epigastric region. RAD/Chest PA and Lateral IMPRESSION: Stable examination. No acute abnormality is seen. Electronically Signed: Colby Cruz MD at 12:42 EDT ,
--- OUTSIDE RECORDS SUMMARY | 2024-01-07 13:31 | XMS RPT_ITS | CCD ---
Author Organization [facility] Informat ion Partnership [employer] SAL[employer] [facility] Care Team Providers Care Special Education Science Teacher Name Role Phone Tang Olguin DO Primary Care Provider CHARLIE DRAPER Attending Unavailable CHARLIE DRAPER Admitting Unavailable TANG OLGUIN Primary Care Unavailable Tang Olguin DO Primary Care Provider Tang Olguin Unavailable Dr. Kristal Recinos Attending Bharati Olguin, Dr. Tang Ballesteros Primary Care Unava lida Friend, Dr. Ruth Referring Unavailable Tang Olguin DO Primary Care Provider Tang Olguin DO Primary Care Provider SÁNCHEZ PELLETIER Attending Unavailable TANG OLGUIN Primary Care Unavailable TANG OLGUIN Primary Care Unavailable TANG OLGUIN Primary Care Unavailable TANG OLGUIN Primary Care Unavailable OLGUIN, TANG Clifford Primary Care Unavailable OLGUINTANG Primary Care Unavailable OLGUINTANG Primary Care Unavailable TANG OLGUIN Referring Unavailable TANG OLGUIN Primary Care Unavailable TANG OLGUIN Attending Unavailable TANG OLGUIN Primary Care Unavailable SÁNCHEZ PELLETIER Referring Unavailable SHARIF, TANG Clifford Primary Care Unavailable MARY FARFAN Attending Unavailable TANG OLGUIN Primary Care Unavailable CIERRA EMMANUEL Attending Unavailable TANG OLGUIN Primary Care Unavailable Allergies Allergy Classification Reported Allergen(s) Allergy Type Date of Onset Reaction(s) Facility (20 sources) atorvastatin; Translations: [ATORVASTATIN] Drug Allergy 08-28-2018 Other: See Comments [facility] (20 sources) HYDROmorphone; Translations: [HYDROMORPHONE (BULK)] Drug Allergy 03-17-2013 Other: See Comments [facility] (20 sources) HYDROmorphone; Translations: [HYDROMORPHONE] Drug Allergy 08-12-2016 Other: See Comments [facility] (20 sources) Miconazole; Translations: [MICONAZOLE] Drug Allergy 01-13-2004 Itching [facility] (20 sources) milnacipran; Translations: [MILNACIPRAN] Drug Allergy 07-19-2011 Mental Status Change, Other: See Comments [facility] (20 sources) Morphine; Translations: [MORPHINE] Drug Allergy 03-09-2009 Shortness of Breath [facility] (20 sources) pregabalin; Translations: [PREGABALIN] Drug Allergy 07-22-2018 Rash, Cough, Itching [facility] Work Phone: (20 sources) rivaroxaban; Translations: [RIVAROXABAN] Drug Allergy 12-02-2014 Other: See Comments, GI Upset [facility] (20 sources) Warfarin; Translations: [WARFARIN SODIUM] Drug Allergy 07-19-2011 Other: See Comments [facility] Work Phone: (20 sources) Warfarin; Translations: [WARFARIN] Drug Allergy 08-12-2016 Other: See Comments [facility] (20 sources) predniSONE; Translations: [PREDNISONE] Drug Allergy 12-27-2021 Itching [facility] Work Phone: Medications Current Medications Medication Drug Class(es) Dates Sig (Normalized) Sig (Original) acetaminophen 325 mg / HYDROcodone bitartrate 5 mg oral tablet (1 source) Opioid Agonist Start: 03-22-2022 End: 03-29-2022 take 1 tablet by mouth every six hours as needed for pain HYDROcodone-acet aminophen (NORCO) 5-325 mg per tablet Indications: Carpal tunnel syndrome of left wrist Take 1 tablet by mouth every 6 hours as needed for pain for up to 7 days. 10 tablet 0 03/22/2022 03/29/2022 Active Comment on above: Take 1 tablet by asim every 6 hours as needed for pain for up to 7 days. albuterol 0.833 mg/ml / ipratropium bromide 0.167 mg/ml inhalation solution (20 sources) Anticholinergic, beta2-Adrenergic Agonist Start: 02-16-2021 take 3 mL by inhalation every four hours as needed ipratropium-albu terol (DUONEB) 0.5 mg-3 mg(2.5 mg base)/3 mL nebu Inhale 3 mL as instructed every 4 hours as needed for wheezing/shortne ss of breath. 3 mL 3 02/16/2021 Active Comment on above: Inhale 3 mL as instr ucted every 4 hours as needed for wheezing/shortness of breath. amoxicillin 875 mg / clavulanate 125 mg oral tablet (6 sources) Penicillin-class Antibacterial Start: 2023 End: 05-29-2023 take 1 tablet by mouth twice daily amoxicillin-clav ulanate potassium (AUGMENTIN) 875-125 mg per tablet Take 1 tablet by mouth two times a day for 7 days. 14 tablet 0 2023 05/29/2023 Active Start: 12-13-2022 End: 12-20-2022 take 1 tablet by mouth twice daily amoxicillin-clavulanic acid (AUGMENTIN) 875-125 mg per tablet Take 1 tablet by mouth two times a day for 7 days. 14 tablet 0 12/13/2022 12/20/2022 Active Comment on above: Take 1 tablet by asim th two times a day for 7 days. amylase [id number] unt / lipase 10528 unt / protease [id number] unt delayed release oral capsule (20 sources) Start: 03-20-2022 End: 06-18-2022 take 3 capsules by mouth three times daily at mealtime meumja-tupfflch-bdb lase (CREON) 36,000-114,000- 180,000 unit delayed release capsule Take 3 capsules by mouth three times daily with meals. 810 capsule 03/20/2022 Active Start: 01-04-2022 End: 03-17-2022 take 3 capsules by mouth three times daily at mealtime whatlw-zvzomggz-oggrwtt (CREON) 36,000-114,000- 180,000 unit delayed release capsule Take 3 capsules by mouth three times daily with meals. 01/04/2022 03/17/2022 Discontinued Comment on above: Take 3 capsules by m outh three times daily with meals. Blood Pressure Monitor (20 sources) Start: 06-23-2022 Blood Pressure Monitor Indications: Hypertension, essential 1 Each as directed. Blood pressure KIT, Dx: HTN 1 Each 06/23/2022 Active Start: 06-23-2022 Blood Pressure Monitor Indications: Hypertension, essential 1 Each as directed. Blood pressure KIT, Dx: HTN 1 Each 0 06/23/2022 Active Comment on above: 1 Each as directed. Blood pressure KIT, Dx: HTN Blood-Glucose Meter monitoring kit (1 source) Start: 4 End: Blood-Glucose Meter monitoring kit Indications: Lightheaded , Hypoglycemia , Blood glucose labile Glucose Meter of Choice - Kit - Dx: Other DM Code : fluctuating blood glucose, hypoglycemia 1 Each 0 08/21/2023 08/22/2023 Active cetirizine hydrochloride 10 mg oral tablet (20 sources) Histamine-1 Receptor Antagonist Start: 4 End: take 1 tablet by mouth once daily cetirizine (ZYRTEC) 10 mg tablet Indications: Environmental allergies Take 1 tablet by mouth once daily. 30 tablet 2 07/02/2023 Active Start: 08-18-2022 End: 12-18-2022 take 1 tablet by mouth once daily cetirizine (ZYRTEC) 10 mg tablet Indications: Environmental allergies Take 1 tablet by mouth once daily. 30 tablet 2 12/18/2022 Active Start: 05-30-2021 End: 07-20-2022 take 1 tablet by mouth once daily cetirizine (ZYRTEC) 10 mg tablet Indications: Environmental allergies Take 1 tablet by mouth once daily. 90 tablet 3 05/30/2021 07/20/2022 Discontinued Start: 05-18-2020 End: 05-28-2021 take 1 tablet by mouth once daily cetirizine (ZYRTEC) 10 mg tablet Indications: Environmental allergies Take 1 tablet by mouth once daily. 90 tablet 3 05/18/2020 05/28/2021 Discontinued Comment on above: Take 1 tablet by asim th once daily. Take 1 tablet by asim th once daily codeine phosphate 2 mg/ml / guaiFENesin 20 mg/ml oral solution (3 sources) Opioid Agonist Start: End: take 5 mL by mouth every eight hours as needed for cough and cough codeine-guaiFENesin (ROBITUSSIN AC) 10-100 mg/5 mL syrup Indications: Acute cough Take 5 mL by mouth three times daily as needed for up to 7 days. 118 mL 0 12/05/2021 12/12/2021 Active Comment on above: Take 5 mL by mouth t hree times daily as needed for up to 7 days. 0.4 ml enoxaparin sodium 100 mg/ml prefilled syringe (10 sources) Low Molecular Weight Heparin Start: End: inject 40 mg by subcutaneous injection every twelve hours enoxaparin (LOVENOX) 40 mg/0.4 mL Inject 0.4 mL subcutaneously q 12 HR for 14 days. 11.2 mL 0 05/28/2022 06/11/2022 Active Comment on above: Inject 0.4 mL subcut aneously q 12 HR for 14 days. escitalopram 5 mg oral tablet (20 sources) Serotonin Reuptake Inhibitor Start: End: take 1 tablet by mouth once daily at bedtime escitalopram oxalate (LEXAPRO) 5 mg tablet Indications: Perimenopausal disorder Take 1 tablet by mouth daily at bedtime. For mood 30 tablet 5 12/14/2023 Active Comment on above: Take 1 tablet by asim th daily at bedtime. For mood fluconazole 150 mg oral tablet (1 source) Azole Antifungal Start: End: fluconazole (DIFLUCAN) 150 mg tablet Indications: Vaginal yeast infection Take 1 tablet by mouth one time only for 1 dose. Repeat in 3 days as needed. 2 tablet 0 12/05/2021 12/05/2021 Active Comment on above: Take 1 tablet by asim th one time only for 1 dose. Repeat in 3 days as needed. fluticasone propionate 0.05 mg/actuat metered dose nasal spray (20 sources) Corticosteroid Start: take 2 spray(s) by mouth once daily fluticasone (FLONASE) 50 mcg/actuation nasal spray Use 2 Sprays in each nostril once daily. Rinse mouth after use. 1 Each 2023 Active Start: 09-06-2022 take 1 puff(s) by mo ut twice daily fluticasone (FLOVENT HFA) 110 mcg/actuation inhaler Indications: Cough Inhale 1 Puff as instructed twice daily. Rinse mouth after using. 12 g 5 09/06/2022 Active Start: 01-26-2021 End: 01-04-2022 take 2 spray(s) by mouth once daily fluticasone (FLONASE) 50 mcg/actuation nasal spray Indications: Right otitis media with effusion Use 2 Sprays in each nostril once daily. Rinse mouth after use. 1 Each 01/26/2021 01/04/2022 Discontinued Start: 03-14-2019 End: 09-06-2022 take 1 puff(s) by mouth twice daily fluticasone (FLOVENT HFA) 110 mcg/actuation inhaler Indications: Cough Inhale 1 Puff as instructed twice daily. Rinse mouth after using. 1 Inhaler 1 03/14/2019 10/17/2021 Discontinued Comment on above: Inhale 1 Puff as ins tructed twice daily. Rinse mouth after using. Use 2 Sprays in each nostril once daily. Rinse mouth after use. Miscellaneous Medical Supply (BLOOD PRESSURE CUFF) (20 sources) Start: 01-04-2022 Miscellaneous Medical Supply (BLOOD PRESSURE CUFF) Indications: Elevated BP without diagnosis of hypertension 1 Each once daily. 1 Each 01/04/2022 Active Start: 01-04-2022 Miscellaneous Medical Supply (BLOOD PRESSURE CUFF) Indications: Elevated BP without diagnosis of hypertension 1 Each once daily. 1 Each 0 01/04/2022 Suspended Start: 01-04-2022 Miscellaneous Medical Supply (BLOOD PRESSURE CUFF) Indications: Elevated BP without diagnosis of hypertension 1 Each once daily. 1 Each 0 01/04/2022 Active Comment on above: 1 Each once daily. Nebulizer Accessories misc (20 sources) Start: 02-26-2019 Nebulizer Accessories misc Indications: Bronchitis, mucopurulent recurrent (HCC) , Wheezing 1 Each as directed. Dx: wheezing, recurrent acute bronchitis, Tubing and mask for nebulizer 1 Each 02/26/2019 Active Start: 02-26-2019 Nebulizer Acce ssories misc Indications: Bronchitis, mucopurulent recurrent (HCC) , Wheezing 1 Each as directed. Dx: wheezing, recurrent acute bronchitis, Tubing and mask for nebulizer 1 Each 0 02/26/2019 Suspended Start: 02-26-2019 Nebulizer Acce [place]ories [facility] [place]ications: Bronchitis, mucopurulent recurrent (HCC) , Wheezing 1 Each as directed. Dx: wheezing, recurrent acute bronchitis, Tubing and mask for nebulizer 1 Each 0 02/26/2019 Active Comment on above: 1 Each as directed. Dx: wheezing, recurrent acute bronchitis, Tubing and mask for nebulizer Nebulizers (20 sources) Start: 02-26-2019 Nebulizers Indications: Bronchitis, mucopurulent recurrent (HCC) , Wheezing 1 Each as directed. Dx: wheezing, recurrent acute bronchitis, 1 Each 02/26/2019 Active Start: 02-26-2019 Nebulizers Ind ications: Bronchitis, mucopurulent recurrent (HCC) , Wheezing 1 Each as directed. Dx: wheezing, recurrent acute bronchitis, 1 Each 0 02/26/2019 Suspended Start: 02-26-2019 Nebulizers Ind ications: Bronchitis, mucopurulent recurrent (HCC) , Wheezing 1 Each as directed. Dx: wheezing, recurrent acute bronchitis, 1 Each 0 02/26/2019 Active Comment on above: 1 Each as directed. Dx: wheezing, recurrent acute bronchitis, omeprazole 40 mg delayed release oral capsule (20 sources) Proton Pump Inhibitor Start: 3 End: 3 take 1 capsule by mouth twice daily omeprazole (PRILOSEC) 40 mg capsule Take 1 capsule by mouth twice daily. Open capsules 180 capsule 2 08/23/2022 Active Start: 02-19-2020 End: 2022 take 1 capsule by mouth once daily omeprazole (PRILOSEC) 40 mg capsule Take 1 capsule by mouth once daily. 30 capsule 11 02/16/2021 05/03/2022 Discontinued Comment on above: Take 1 capsule by mo [facility] once daily. Take 1 capsule by mo [facility] twice daily. Open capsules ondansetron 4 mg disintegrating oral tablet (20 sources) Serotonin-3 Receptor Antagonist Start: 05-29-19 23 take 1 tablet by mouth every eight hours as needed ondansetron orally disintegrating (ZOFRAN ODT) 4 mg disintegrating tablet Take 1 tablet by mouth every 8 hours as needed for nausea/vomiting. 20 tablet 1 05/28/2022 Active Start: 06-04-2019 End: 01-18-2021 take 1 tablet by mouth every six hours as needed for nausea and nausea ondansetron orally disintegrating (ZOFRAN ODT) 4 mg disintegrating tablet Indications: Nausea Take 1 tablet by mouth every 6 hours as needed for Nausea/Vomiting. 30 tablet 06/04/2019 01/18/2021 Discontinued Comment on above: Take 1 tablet by asim th every 8 hours as needed for nausea/vomiting. pantoprazole 40 mg delayed release oral tablet (20 sources) Proton Pump Inhibitor Start: 12-12-19 End: 06-11-19 take 1 tablet by mouth once daily pantoprazole DR (PROTONIX) 40 mg tablet Take 1 tablet by mouth once daily. 180 tablet 12/13/2023 06/10/2024 Active Start: 06-05-2022 End: 12-02-2022 take 1 tablet by mouth once daily pantoprazole DR (PROTONIX) 40 mg tablet Take 1 tablet by mouth once daily. 180 tablet 0 06/05/2022 12/02/2022 Active Start: 05-26-2022 End: 05-26-2023 take 1 tablet by mouth twice daily pantoprazole DR (PROTONIX) 40 mg tablet Take 1 tablet by mouth twice daily. 60 tablet 11 05/26/2022 06/05/2022 Discontinued Comment on above: Take 1 tablet by asim twice daily. Take 1 tablet by asim th once daily. predniSONE 20 mg oral tablet (3 sources) Start: 08-23-2021 End: 08-28-2021 take 2 tablets by mouth once daily predniSONE (DELTASONE) 20 mg tablet Take 2 tablets by mouth once daily for 5 days. 10 tablet 0 08/23/2021 08/28/2021 Active Start: 07-20-2021 End: 07-25-2021 take 2 tablets by mouth once daily predniSONE (DELTASONE) 20 mg tablet Indications: Itching Take 2 tablets by mouth once daily for 5 days. 10 tablet 0 07/20/2021 07/25/2021 Active Comment on above: Take 2 tablets by mo [facility] once daily for 5 days. no115/iron/folic acid ( 19 ORAL) (15 sources) take 1 tablet by mouth once daily no115/iron/folic acid ( 19 ORAL) Take 1 tablet by mouth once daily. Active take 1 tablet by mouth once yola y no115/iron/folic acid ( 19 ORAL) Take 1 tablet by mouth once daily. 0 Active Comment on above: Take 1 tablet by asim th once daily. rOPINIRole 0.5 mg oral tablet (20 sources) Nonergot Dopamine Agonist Start: 02-22-2023 End: 12-04-2023 take 0.5-1 mg by mouth every twenty-four hours as needed rOPINIRole (REQUIP) 0.5 mg tablet Take 1-2 tablets by mouth at bedtime as needed (restless legs). 60 tablet 5 12/04/2023 Active Start: 06-23-2022 take 0.5-1 mg by asim th every twenty-four hours as needed rOPINIRole (REQUIP) 0.5 mg tablet Take 1-2 tablets by mouth at bedtime as needed (restless legs). 60 tablet 5 06/23/2022 Active Start: 12-15-2019 End: 06-23-2022 take 1 tablet by mouth once daily at bedtime rOPINIRole (REQUIP) 4 mg tablet Indications: Restless legs Take 1 tablet by mouth daily at bedtime. 30 tablet 11 01/10/2021 01/04/2022 Discontinued Comment on above: Take 1 tablet by asim daily at bedtime. Take 1-2 tablets by mouth at bedtime as needed (restless legs). sucralfate 100 mg/ml oral suspension (20 sources) Aluminum Complex Start: 08-23-2022 End: 02-19-2023 take 10 mL by mouth four times daily sucralfate (CARAFATE) 100 mg/mL suspension Take 10 mL by mouth four times daily. 3600 mL 1 08/23/2022 02/19/2023 Active Start: 03-20-2022 End: 04-19-2022 take 1 tablet by mouth at bedtime sucralfate (CARAFATE) 1 gram tablet Take 1 tablet by mouth before meals and at bedtime. 120 tablet 0 03/20/2022 04/19/2022 Active Start: 01-04-2022 End: 03-17-2022 take 1 tablet by mouth at bedtime sucralfate (CARAFATE) 1 gram tablet Take 1 tablet by mouth before meals and at bedtime. 01/04/2022 03/17/2022 Discontinued Comment on above: Take 1 tablet by asim th before meals and at bedtime. Take 10 mL by mouth four times daily. valACYclovir 500 mg oral tablet (20 sources) Herpesvirus Nucleoside Analog DNA Polymerase Inhibitor, Herpes Simplex Virus Nucleoside Analog DNA Polymerase Inhibitor, Herpes Zoster Virus Nucleoside Analog DNA Polymerase Inhibitor Start: End: take 1 tablet by mouth twice daily valACYclovir (VALTREX) 500 mg tablet Take 1 tablet by mouth two times a day. 60 tablet 5 12/04/2023 Active Start: 03-20-2022 take 1 tablet by asim th twice daily valACYclovir (VALTREX) 500 mg tablet Take 1 tablet by mouth twice daily. 60 tablet 5 03/20/2022 Active Start: 03-16-2020 End: 03-17-2022 take 1 tablet by mouth twice daily valACYclovir (VALTREX) 500 mg tablet Take 1 tablet by mouth twice daily. 60 tablet 5 03/16/2020 03/08/2021 Discontinued Comment on above: Take 1 tablet by asim th twice daily. Take 1 tablet by asim th two times a day. Completed/Discontinued Medications Medication Drug Class(es) Dates Sig (Normalized) Sig (Original) albuterol 0.83 mg/ml inhalation solution (20 sources) beta2-Adrenergic Agonist Start: 12-05-2021 End: 2022 albuterol (PROVENTIL) 2.5 mg /3 mL (0.083 %) nebulizer solution Indications: Acute cough , Pleuritic pain Use 3 mL via nebulizer every 4 hours as needed for wheezing/shortness of breath. Use over 5-15minutes. 3 mL 01/04/2022 2022 Discontinued Start: 01-18-2021 End: 2022 take 2 puff(s) by inhalation every four hours as needed for wheezing albuterol HFA (PROVENTIL HFA, VENTOLIN HFA) 90 mcg/actuation inhaler Indications: Cough Inhale 2 Puffs as instructed every 4 hours as needed for wheezing/shortness of breath. 1 Each 01/18/2021 01/04/2022 Discontinued Start: 03-16-2020 End: 10-03-2020 take 2 puff(s) by inhalation every four hours as needed albuterol HFA (PROAIR HFA) 90 mcg/actuation inhaler Indications: Cough Inhale 2 Puffs as instructed every 4 hours as needed. 18 g 1 03/16/2020 10/03/2020 Discontinued Start: 02-27-2019 End: 01-18-2021 albuterol (PROVENTIL) 2.5 mg /3 mL (0.083 %) nebulizer solution Indications: Cough , Bronchitis, mucopurulent recurrent (HCC) Use 3 mL via nebulizer every 4 hours as needed for Wheezing/Shortness of Breath. Use over 5-15minutes. Dx: R05, J41.1 100 Vial 1 02/27/2019 01/18/2021 Discontinued Comment on above: Inhale 2 Puffs as in structed every 4 hours as needed for wheezing/shortness of breath. Use 3 mL via nebuliz er every 4 hours as needed for wheezing/shortness of breath. Use over 5-15minutes. ascorbic acid 1000 mg oral tablet (4 sources) Vitamin C take 1 tablet by mouth once daily Ascorbic Acid (VITAMIN C) 1,000 mg tablet Take 1,000 mg by mouth once daily. 0 Active Comment on above: Take 1,000 mg by asim once daily. bifidobacterium animalis [id number] unt / bifidobacterium longum [id number] unt / lactobacillus acidophilus [id number] unt oral capsule (1 source) Start: 2018 End: 2020 take 1 capsule by mouth once daily L.acidoph-B.lactis-B .longum (FLORAJEN3) 460 mg (7.5-6- 1.5 bill. cell) cap Take 1 capsule by mouth once daily. 30 capsule 2 04/18/2018 06/30/2020 Discontinued (Course of therapy completed) 24 hr buPROPion hydrochloride 150 mg extended release oral tablet (1 source) Aminoketone Start: 2019 End: 2020 take 1 tablet by mouth once daily at breakfast buPROPion XL (WELLBUTRIN XL) 150 mg 24 hr tablet Indications: Perimenopausal disorder Take 1 tablet by mouth daily with breakfast. 90 tablet 1 04/07/2019 06/30/2020 Discontinued (Discontinued by another Health Care Provider) cholecalciferol 0.05 mg oral tablet (20 sources) Vitamin D Start: 2019 End: 2023 take 1 tablet by mouth once daily cholecalciferol (VITAMIN D3) 50 mcg (2,000 unit) tablet Take 1 tablet by mouth once daily. 90 tablet 3 03/11/2020 05/24/2021 Discontinued Comment on above: Take 1 tablet by asim th once daily. cholestyramine resin 4000 mg powder for oral suspension (14 sources) Bile Acid Sequestrant Start: 2020 End: 2021 take 1 dose by mouth three times daily at mealtime cholestyramine (QUESTRAN) 4 gram packet Take 1 Packet by mouth three times daily with meals. 90 Packet 06/17/2020 01/04/2022 Discontinued Comment on above: Take 1 Packet by asim th three times daily with meals. COMPOUNDED PRESCRIPTION (1 source) Start: 2014 End: 2020 COMPOUNDED PRESCRIPTION Indications: DVT (deep venous thrombosis), left , Edema Support socks 10-20 mmHg # one pair Dx: 453.40 and 782.3 1 Device 0 11/05/2014 06/30/2020 Discontinued (Course of therapy completed) cyclobenzaprine hydrochloride 10 mg oral tablet (20 sources) Muscle Relaxant Start: 2021 End: 2023 take 1 tablet by mouth three times daily as needed for muscle spasms cyclobenzaprine (FLEXERIL) 10 mg tablet Indications: Muscle spasm of back Take 1 tablet by mouth three times daily as needed for muscle spasm. 30 tablet 11/09/2021 06/06/2023 Discontinued Comment on above: Take 1 tablet by asim th three times daily as needed for muscle spasm. 1 ml dexamethasone phosphate 4 mg/ml injection (5 sources) Corticosteroid Start: 2020 End: 2021 dexAMETHasone sodium phosphate (DECADRON) 4 mg/mL injection 4 mg as directed. For topical use with iontophoresis pads for at home iontophoresis therapy Not being used for IV usage. 30 mL 12/01/2020 07/20/2021 Discontinued Comment on above: 4 mg as directed. Fo r topical use with iontophoresis pads for at home iontophoresis therapy Not being used for IV usage. diclofenac sodium 0.01 mg/mg topical gel (20 sources) Nonsteroidal Anti-inflammatory Drug End: 2022 apply 2 g topically four times daily diclofenac (VOLTAREN) 1 % topical gel Apply 2 g to affected area four times daily. uses on foot and left arm 05/26/2022 Discontinued Comment on above: Apply 2 g to affecte d area four times daily. uses on foot and left arm dicyclomine hydrochloride 10 mg oral capsule (20 sources) Anticholinergic Start: 2020 End: 2021 take 1 capsule by mouth four times daily as needed dicyclomine (BENTYL) 10 mg capsule Indications: CRP elevated , Myalgia , Chronic pain syndrome , Nausea , Elevated sed rate Take 1 capsule by mouth four times daily as needed. 60 capsule 1 06/04/2020 02/27/2022 Discontinued (Course of therapy completed) Comment on above: Take 1 capsule by mo [facility] four times daily as needed. doxycycline hyclate 100 mg oral tablet (6 sources) Tetracycline-class Drug Start: 2021 End: 2021 take 1 tablet by mouth twice daily doxycycline (VIBRA-TABS) 100 mg tablet Indications: Subacute cough , Acute bronchitis, unspecified organism Take 1 tablet by mouth twice daily for 7 days. 14 tablet 02/17/2022 02/24/2022 Start: 12-27-2021 End: 01-06-2022 take 1 tablet by mouth twice daily doxycycline (VIBRA-TABS) 100 mg tablet Indications: Subacute cough , Acute bronchitis, unspecified organism Take 1 tablet by mouth twice daily for 10 days. 20 tablet 0 12/27/2021 01/06/2022 Active Comment on above: Take 1 tablet by asim twice daily for 10 days. Take 1 tablet by asim twice daily for 7 days. DULoxetine 20 mg delayed release oral capsule (17 sources) Serotonin and Norepinephrine Reuptake Inhibitor Start: 04-11-2021 End: 01-04-2022 DULoxetine (CYMBALTA) 20 mg capsule Take 1 capsule every day x 2 weeks then 1 capsule every other day x 2 weeks then stop medication (tapering off) 21 capsule 0 04/11/2021 01/04/2022 Discontinued Start: 02-16-2021 End: 01-31-2022 take 1 capsule by mouth once daily DULoxetine (CYMBALTA) 30 mg capsule Indications: Perimenopausal disorder Take 1 capsule by mouth once daily. Tapering off 30 capsule 3 02/16/2021 04/11/2021 Discontinued Start: 05-26-2020 End: 10-03-2020 take 1 capsule by mouth once daily DULoxetine (CYMBALTA) 30 mg capsule Indications: Perimenopausal disorder Take 1 capsule by mouth once daily. Tapering off 30 capsule 3 05/26/2020 10/03/2020 Discontinued Comment on above: Take 1 capsule every day x 2 weeks then 1 capsule every other day x 2 weeks then stop medication (tapering off) enteric contrast (will be provided with radiology test) (1 source) Start: 2 End: 2 enteric contrast (will be provided with radiology test) Indications: Blood in stool , Nausea , Bloating , Generalized abdominal pain , Abdominal pain, unspecified abdominal location For CT ABD/PEL W IVCON Routine order Administer, As Directed One Time Only, via Oral, Rectal, both Oral and Rectal, Enteric Tube, Stoma or Indwelling Catheter, Enteric Contrast as designated per enteric contrast guidelines 1 Each 03/18/2021 03/19/2021 ferrous sulfate 140 mg extended release oral tablet (17 sources) Start: 2 End: 2 take 1 tablet by mouth twice daily at mealtime ferrous sulfate (SLOW FE) 140 mg (45 mg iron) TbER Indications: Iron deficiency Take 1 tablet by mouth twice daily with meals. 60 tablet 3 03/30/2021 01/04/2022 Discontinued Start: 03-11-2020 End: 03-30-2021 take 1 tablet by mouth once daily at breakfast ferrous sulfate 325 mg (65 mg iron) tablet Take 1 tablet by mouth daily with breakfast. 30 tablet 5 03/11/2020 03/30/2021 Discontinued Comment on above: Take 1 tablet by asim twice daily with meals. hydroCHLOROthiazide 12.5 mg oral capsule (1 source) Thiazide Diuretic Start : 06-15 End: 06-30 take 1 capsule by mouth once daily Hydrochlorothiazide 12.5 mg capsule Take 1 capsule by mouth once daily. 30 capsule 12 06/16/2019 06/30/2020 Discontinued (Discontinued by another Health Care Provider) hydrocortisone acetate 25 mg rectal suppository (16 sources) Corticosteroid Start : 12-04 End: 01-04 take 25 mg rectal route every twelve hours as needed hydrocortisone (ANUSOL-HC) 25 mg suppository 1 Suppository by RECTAL route twice daily as needed (hemorrhoids/rectal pain). 12 Suppository 1 12/04/2020 01/04/2022 Discontinued Comment on above: 1 Suppository by REC KARLI route twice daily as needed (hemorrhoids/rectal pain). iv contrast (will be provided with radiology test) (2 sources) Start : 03-18 End: 03-19 iv contrast (will be provided with radiology test) Indications: Blood in stool , Nausea , Bloating , Generalized abdominal pain , Abdominal pain, unspecified abdominal location CT ABD/PEL -Inject, intravenously, once for 1 dose.No IV access, insert saline lock prior to the beginning of sedation, infusion, injection of imaging exam. Discontinue saline lock post exam. If Pt. has a central line or IVAD, may access for administration according to line specific nursing protocol. Once exam is complete flush line and de-access according to line specific nursing protocol in the CT contrast administration guidelines link. 1 Each 03/18/2021 03/19/2021 Start: 02-16-2021 End: 02-17-2021 iv contrast (will be provide d with radiology test) Indications: Shortness of breath , Chest tightness , Post-COVID chronic cough , History of DVT (deep vein thrombosis) CT Chest PE -Inject, intravenously, once for 1 dose.No IV access, insert saline lock prior to the beginning of sedation, infusion, injection of imaging exam. Discontinue saline lock post exam. If Pt. has a central line or IVAD, may access for administration according to line specific nursing protocol. Once exam is complete flush line and de-access according to line specific nursing protocol in the CT contrast administration guidelines link. 1 Each 02/16/2021 02/17/2021 lactobacillus rhamnosus gg [id number] unt oral capsule (20 sources) Start: 01-26-2021 End: 02-27-2022 take 1 capsule by mouth once daily lactobacillus rhamnosus (CULTURELLE) 15 billion cell capsule Take 1 capsule by mouth once daily. 30 capsule 01/26/2021 02/27/2022 Discontinued (Course of therapy completed) Comment on above: Take 1 capsule by mo [facility] once daily. losartan potassium 50 mg oral tablet (14 sources) Angiotensin 2 Receptor Annamarie Start: 01-22-2017 take 1 tablet by mouth once daily losartan (COZAAR) 50 mg tablet Take 50 mg by mouth once daily. 0 01/22/2017 Active Comment on above: Take 50 mg by mouth once daily. maalox-lidocaine (GI COCKTAIL) 2:1 liqd (17 sources) Start: 08-23-2022 End: 06-06-2023 take 5 mL by mouth every four hours as needed maalox-lidocaine (GI COCKTAIL) 2:1 liqd Take 5 mL by mouth every 4 hours as needed for up to 30 doses. 30 mL 08/23/2022 06/06/2023 Discontinued Start: 08-23-2022 take 5 mL by mouth e very four hours as needed maalox-lidocaine (GI COCKTAIL) 2:1 liqd Take 5 mL by mouth every 4 hours as needed for up to 30 doses. 30 mL 0 08/23/2022 Active Comment on above: Take 5 mL by mouth e very 4 hours as needed for up to 30 doses. magnesium gluconate 550 mg oral tablet (2 sources) End: 03-18-2021 take 1 tablet by mouth twice daily Magnesium 30 mg tablet Take 30 mg by mouth twice daily. 03/18/2021 Discontinued magnesium oxide 500 mg oral tablet (20 sources) Start: 03-20-2022 End: 06-06-2023 take 1 tablet by mouth once daily Magnesium Oxide 500 mg tab Indications: Restless legs Take 1 tablet by mouth once daily. 90 tablet 3 03/20/2022 06/06/2023 Discontinued Start: 03-18-2021 End: 03-17-2022 take 1 tablet by mouth once daily Magnesium Oxide 500 mg tab Indications: Restless legs Take 1 tablet by mouth once daily. 90 tablet 3 03/18/2021 03/17/2022 Discontinued Comment on above: Take 1 tablet by [facility] once daily. meloxicam 15 mg oral tablet (19 sources) Nonsteroidal Anti-inflammatory Drug Start : 01-12 End: 05-26 take 1 tablet by mouth once daily at mealtime meloxicam (MOBIC) 15 mg tablet Take 1 tablet by mouth once daily. Take with food. 30 tablet 2 01/12/2022 05/26/2022 Discontinued Comment on above: Take 1 tablet by asim th once daily. Take with food. methylPREDNISolone (4 sources) Corticosteroid Start : 02-17 End: 02-23 methylPREDNISolone (MEDROL, ESTELLE,) 4 mg Dose-Pack Indications: Subacute cough , Acute bronchitis, unspecified organism Follow dosing instructions, take with food. 21 tablet 02/17/2022 02/23/2022 Start: 02-17-2022 End: 02-23-2022 methylPREDNISolone (MEDROL, ESTELLE,) 4 mg Dose-Pack Indications: Subacute cough , Acute bronchitis, unspecified organism Follow dosing instructions, take with food. 21 tablet 0 02/17/2022 02/23/2022 Start: 02-17-2022 End: 02-23-2022 methylPREDNISolone (MEDROL, ESTELLE,) 4 mg Dose-Pack Indications: Subacute cough , Acute bronchitis, unspecified organism Follow dosing instructions, take with food. 21 tablet 0 02/17/2022 02/23/2022 Active Start: 12-27-2021 End: 01-02-2022 methylPREDNISolone (MEDROL, ESTELLE,) 4 mg Dose-Pack Indications: Subacute cough , Acute bronchitis, unspecified organism Follow dosing instructions, take with food. 21 tablet 0 12/27/2021 01/02/2022 Active Comment on above: Follow dosing instru ctions, take with food. 24 hr metoprolol succinate 25 mg extended release oral tablet (17 sources) beta-Adrenergic Annamarie Start: End: take 1 tablet by mouth once daily at bedtime metoprolol succinate ER (TOPROL XL) 25 mg 24 hr tablet Indications: Hypertension, essential Take 1 tablet by mouth daily at bedtime. FOR blood pressure 30 tablet 1 02/09/2021 01/04/2022 Discontinued Start: 05-17-2020 End: 07-09-2020 take 1 tablet by mouth once daily at bedtime metoprolol succinate ER (TOPROL XL) 25 mg 24 hr tablet Indications: Hypertension, essential Take 1 tablet by mouth daily at bedtime. FOR blood pressure 30 tablet 1 05/17/2020 07/09/2020 Discontinued Comment on above: Take 1 tablet by asim th daily at bedtime. FOR blood pressure oxyCODONE hydrochloride 5 mg oral tablet (20 sources) Opioid Agonist Start: End: take 1 tablet by mouth every six hours as needed for pain oxyCODONE IR (ROXICODONE) 5 mg immediate release tablet Indications: Post-op pain Take 1 tablet by mouth every 6 hours as needed for pain. 8 tablet 05/28/2022 06/06/2023 Discontinued Comment on above: Take 1 tablet by asim th every 6 hours as needed for pain. polyethylene glycol 3350 51431 mg powder for oral solution (17 sources) Osmotic Laxative Start: End: take 1 scoop(s) by mouth once daily in the morning polyethylene glycol 3350 (MIRALAX) 17 gram/dose powder Take 1 scoop of powder by mouth with 8oz of liquid once daily in the morning 507 g 2 01/12/2022 2022 Discontinued Comment on above: Take 1 scoop of powd er by mouth with 8oz of liquid once daily in the morning 1000 ml sodium chloride 9 mg/ml injection (20 sources) Start: End: 0.9 % sodium chloride (NACL 0.9%) 0.9% solp Indications: Dehydration , History of bariatric surgery Please administer over 2 hours. 1000 mL 05/30/2022 06/06/2023 Discontinued Comment on above: Please administer ov er 2 hours. traZODone hydrochloride 50 mg oral tablet (14 sources) Serotonin Reuptake Inhibitor Start: End: take 1-2 tablets by mouth once daily at bedtime traZODone (DESYREL) 50 mg tablet Indications: Perimenopausal disorder , Situational insomnia Take 1-2 tablets by mouth daily at bedtime. For insomnia, perimenopause 90 tablet 1 07/08/2021 01/04/2022 Discontinued Comment on above: Take 1-2 tablets by mouth daily at bedtime. For insomnia, perimenopause triamcinolone acetonide 0.055 mg/actuat metered dose nasal spray (20 sources) Corticosteroid Start: End: triamcinolone acetonide (KENALOG) 0.1 % cream Indications: Itching Apply 1 application to affected area three times daily for 10 days. Apply sparingly to area for rash/itching. 80 g 0 07/20/2021 07/30/2021 Active Start: 08-31-2020 End: 06-06-2023 take 2 spray(s) by inhalation once daily triamcinolone acetonide (NASACORT) 55 mcg nasal inhaler Use 2 Sprays in the nose once daily. 16.9 mL 5 10/17/2021 06/06/2023 Discontinued Comment on above: Use 2 Sprays in the nose once daily. Apply 1 application to affected area three times daily for 10 days. Apply sparingly to area for rash/itching. 24 hr venlafaxine 37.5 mg extended release oral capsule (20 sources) Serotonin and Norepinephrine Reuptake Inhibitor Start: 11-10-19 End: 06-24-19 23 take 1 capsule by mouth once daily venlafaxine ER (EFFEXOR XR) 37.5 mg 24 hr capsule Take 1 capsule by mouth once daily. 90 capsule 1 11/09/2021 06/23/2022 Discontinued Start: 08-12-2021 End: 11-09-2021 take 1 capsule by mouth once daily venlafaxine ER (EFFEXOR XR) 75 mg 24 hr capsule Take 75 mg by mouth once daily. 0 08/12/2021 11/09/2021 Discontinued Comment on above: Take 75 mg by mouth once daily. Take 1 capsule by [facility] once daily. vitamin b12 1 mg oral tablet (20 sources) Vitamin B12 Start: 01-03-2021 End: 06-06-2023 take 1 tablet by mouth once daily cyanocobalamin (VITAMIN B-12) 1,000 mcg tab Take 1 tablet by mouth once daily. 30 tablet 2 05/25/2021 06/06/2023 Discontinued Start: 04-05-2020 End: 07-09-2020 take 1 tablet by mouth once daily cyanocobalamin (VITAMIN B-12) 1,000 mcg tab Take 1 tablet by mouth once daily. 30 tablet 2 04/05/2020 07/09/2020 Discontinued Comment on above: Take 1 tablet by [facility] once daily. Zinc Acetate (4 sources) take 1 tablet by mouth once daily ZINC ACETATE ORAL Take 1 tablet by mouth once daily. 0 Active Comment on above: Take 1 tablet by asim th once daily. Problems Active Problems Problem Classification Problem Date Documented Da te Episodic/Chronic Anxiety disorders (20 sources) Anxiety state; Translations: [Generalized anxiety disorder] Onset: 7 06-03-2019 Chronic Asthma (20 sources) Mild intermittent asthma; Translations: [Mild intermittent asthma, uncomplicated] Onset: 0 10-27-2019 Chronic Biliary tract disease (20 sources) Cholangiectasis; Translations: [Other specified diseases of biliary tract] Onset: 3 10-10-2022 Chronic Disorders of lipid metabolism (20 sources) Hyperlipidemia; Translations: [Hyperlipidemia, unspecified] Onset: 6 01-11-2011 Chronic Esophageal disorders (20 sources) Gastroesophageal reflux disease; Translations: [Gastro-esophageal reflux disease without esophagitis] Onset: 0 01-11-2011 Chronic Essential hypertension (20 sources) Essential hypertension; Translations: [Essential (primary) hypertension] Onset: 0 10-09-2019 Chronic Genitourinary symptoms and ill-defined conditions (20 sources) Female stress incontinence; Translations: [Stress incontinence (female) (male)] Onset: 4 04-02-2013 Chronic Immunizations and screening for infectious disease (2 sources) Contact with or exposure to other viral diseases; Translations: [Close exposure to COVID-19 virus] Episodic Menopausal disorders (20 sources) Perimenopausal disorder; Translations: [Unspecified menopausal and perimenopausal disorder] Onset: 2 Chronic Miscellaneous mental health disorders (1 source) Insomnia; Translations: [Other insomnia not due to a substance or known physiological condition] Chronic Mood disorders (20 sources) Moderate major depression, single episode; Translations: [Major depressive disorder, single episode, moderate] Onset: 9 06-29-2015 Chronic Mycoses (1 source) Candidiasis of vagina; Translations: [Candidiasis of vulva and vagina] Episodic Nonspecific chest pain (2 sources) Chest pain; Translations: [Other chest pain] Episodic Nutritional deficiencies (1 source) Iron deficiency; Translations: [Iron deficiency] Episodic Other aftercare (1 source) Polypharmacy ; Translations: [Other middle or intermediate school principal (current) drug therapy] Episodic Other aftercare (3 sources) Patient encounter status; Translations: [Other penitentiary (current) drug therapy] Episodic Other bone disease and musculoskeletal deformities (20 sources) Posterior calcaneal exostosis; Translations: [Juvenile osteochondrosis of tarsus, right ankle] Onset: 2 10-20-2019 Chronic Other circulatory disease (1 source) Elevated blood-pressure reading without diagnosis of hypertension; Translations: [Elevated blood-pressure reading, without diagnosis of hypertension] Episodic Other connective tissue disease (2 sources) Pain in left arm; Translations: [Pain in left arm] Episodic Other connective tissue disease (2 sources) Pain of left hand; Translations: [Pain in left hand] Episodic Other connective tissue disease (2 sources) Pain in right foot; Translations: [Pain in right foot] 04-13-2023 Episodic Other ear and sense organ disorders (1 source) Otalgia, right ear; Translations: [Otalgia, unspecified] 12-05-2023 Episodic Other endocrine disorders (10 sources) Hypoglycemia; Translations: [Hypoglycemia, unspecified] Onset: 4 08-22-2023 Chronic Other endocrine disorders (1 source) Hypoglycemia, unspecified; Translations: [Hypoglycemia] Onset: 4 Chronic Other gastrointestinal disorders (20 sources) Irritable bowel syndrome; Translations: [Irritable bowel syndrome without diarrhea] Onset: 0 01-11-2011 Chronic Other gastrointestinal disorders (1 source) Abnormal intestinal absorption; Translations: [Intestinal malabsorption, unspecified] Chronic Other gastrointestinal disorders (3 sources) History of bariatric surgical procedure; Translations: [Bariatric surgery status] Episodic Other gastrointestinal disorders (4 sources) H/O: GIT by-pass; Translations: [Bariatric surgery status] Onset: 3 Episodic Other hereditary and degenerative nervous system conditions (20 sources) Restless legs; Translations: [Restless legs syndrome] Onset: 1 01-11-2011 Chronic Other inflammatory condition of skin (1 source) Itching ; Translations: [Pruritus, unspecified] Episodic Other injuries and conditions due to external causes (1 source) Other injury of unspecified body region, initial encounter; Translations: [Hematoma] Onset: 4 Episodic Other lower respiratory disease (2 sources) Pleuritic pain; Translations: [Pleurodynia] Episodic Other lower respiratory disease (1 source) Chronic cough; Translations: [Chronic cough] Episodic Other lower respiratory disease (2 sources) Cough; Translations: [Acute cough] 12-05-2021 Episodic Other lower respiratory disease (1 source) Dyspnea; Translations: [Shortness of breath] 02-16-2021 Episodic Other nervous system disorders (20 sources) Chronic pain syndrome; Translations: [Chronic pain syndrome] Onset: 9 07-09-2018 Chronic Other nervous system disorders (2 sources) Carpal tunnel syndrome of left wrist; Translations: [Carpal tunnel syndrome, left upper limb] Chronic Other nervous system disorders (1 source) Carpal tunnel syndrome, left upper limb; Translations: [Carpal tunnel syndrome of left wrist] Onset: 3 Chronic Other nervous system disorders (2 sources) Paresthesia; Translations: [Paresthesia of skin] Episodic Other non-traumatic joint disorders (1 source) Disorder of shoulder; Translations: [Other specified joint disorders, unspecified shoulder] Episodic Other non-traumatic joint disorders (1 source) Chronic pain of left upper limb; Translations: [Pain in left shoulder] Episodic Other non-traumatic joint disorders (1 source) Hip pain; Translations: [Pain in left hip] 03-18-2021 Episodic Other non-traumatic joint disorders (1 source) Pain in elbow; Translations: [Pain in left elbow] 06-28-2020 Episodic Other nutritional; endocrine; and metabolic disorders (20 sources) Obesity; Translations: [Obesity, unspecified] Onset: 7 12-20-2016 Chronic Other nutritional; endocrine; and metabolic disorders (20 sources) Body mass index 40+ - severely obese; Translations: [Morbid (severe) obesity due to excess calories] Onset: 0 10-28-2019 Chronic Other nutritional; endocrine; and metabolic disorders (2 sources) Morbid obesity; Translations: [Morbid (severe) obesity due to excess calories] Chronic Other nutritional; endocrine; and metabolic disorders (1 source) Obese class III; Translations: [Morbid (severe) obesity due to excess calories] Chronic Other nutritional; endocrine; and metabolic disorders (1 source) Body weight problem; Translations: [Other symptoms and signs concerning food and fluid intake] Episodic Other nutritional; endocrine; and metabolic disorders (1 source) Abnormal weight gain; Translations: [Abnormal weight gain] Episodic Other upper respiratory infections (1 source) Acute pansinusitis; Translations: [Acute pansinusitis, unspecified] 2023 Episodic Residual codes; unclassified (20 sources) Obstructive sleep apnea syndrome; Translations: [Obstructive sleep apnea (adult) (pediatric)] Onset: 0 10-27-2019 Chronic Residual codes; unclassified (1 source) Did not attend; Translations: [No-show for appointment] Episodic Unclassified (1 source) NO SHOW Past or Other Problems Problem Classification Problem Date Documented Da te Episodic/Chronic Abdominal hernia (20 sources) Hiatal hernia; Translations: [Diaphragmatic hernia without obstruction or gangrene] Onset: 2 Episodic Abdominal pain (20 sources) Indigestion; Translations: [Epigastric pain] Onset: 7 Resolved: 7 06-16-2019 Episodic Acute bronchitis (20 sources) Acute bronchitis; Translations: [Acute bronchitis, unspecified] Onset: 9 Episodic Allergic reactions (20 sources) Environmental allergy; Translations: [Other allergy status, other than to drugs and biological substances] Onset: 9 Resolved: 0 Episodic Biliary tract disease (16 sources) Disorder of gallbladder; Translations: [Other specified diseases of gallbladder] Onset: 7 Resolved: 6 03-17-2015 Episodic Conditions associated with dizziness or vertigo (20 sources) Vertigo; Translations: [Dizziness and giddiness] Onset: 1 01-11-2011 Episodic Diabetes mellitus without complication (20 sources) Abnormal glucose level; Translations: [Other abnormal glucose] Onset: 4 08-21-2023 Episodic Disorders of teeth and jaw (16 sources) Temporomandibular joint disorder; Translations: [Unspecified temporomandibular joint disorder, unspecified side] Resolved: 7 05-18-2006 Episodic Endometriosis (16 sources) Endometriosis (clinical); Translations: [Endometriosis] Resolved: 5 04-22-2014 Chronic Epilepsy; convulsions (20 sources) Seizure; Translations: [Unspecified convulsions] Onset: 0 10-27-2019 Episodic Fluid and electrolyte disorders (1 source) Hypovolemia; Translations: [Hypotension due to hypovolemia] Onset: 4 Episodic Gastritis and duodenitis (16 sources) Acute gastritis; Translations: [Acute gastritis without bleeding] Onset: 1 Resolved: 1 07-01-2010 Episodic Gastrointestinal hemorrhage (20 sources) Hematochezia; Translations: [Melena] Onset: 2 Resolved: 6 03-18-2021 Episodic Genitourinary symptoms and ill-defined conditions (20 sources) Dysuria; Translations: [Dysuria] Onset: 2 Episodic Influenza (1 source) Influenza due to unidentified influenza virus with other respiratory manifestations; Translations: [Influenza] Onset: 3 Episodic Intestinal infection (16 sources) Infection caused by Helicobacter pylori; Translations: [Other specified bacterial intestinal infections] Onset: 0 Resolved: 1 07-01-2010 Episodic Joint disorders and dislocations; trauma-related (16 sources) Disorder of patellofemoral joint; Translations: [Patellofemoral disorders, unspecified knee] Onset: 9 Resolved: 7 07-25-2016 Chronic Malaise and fatigue (20 sources) Fatigue; Translations: [Other fatigue] Onset: 8 Resolved: 0 Episodic Mood disorders (20 sources) Mood swings; Translations: [Emotional lability] Onset: 4 04-02-2013 Episodic Nausea and vomiting (20 sources) Nausea; Translations: [Nausea] Onset: 6 Resolved: 7 03-18-2021 Episodic Nonmalignant breast conditions (16 sources) Hypertrophy of breast; Translations: [Hypertrophy of breast] Onset: 4 Resolved: 7 05-18-2006 Episodic Other and unspecified benign neoplasm (20 sources) Polyp of colon; Translations: [Polyp of colon] Onset: 0 01-11-2011 Episodic Other and unspecified benign neoplasm (16 sources) History of polyp of colon; Translations: [Personal history of colonic polyps] Onset: 7 Resolved: 1 07-01-2010 Episodic Other connective tissue disease (20 sources) Fibromyalgia; Translations: [Fibromyalgia] Onset: 0 03-07-2021 Episodic Other connective tissue disease (20 sources) Calcaneal spur of right foot; Translations: [Calcaneal spur, right foot] Onset: 0 04-15-2019 Episodic Other connective tissue disease (20 sources) Heel pain; Translations: [Pain in right foot] Onset: 0 04-15-2019 Episodic Other connective tissue disease (20 sources) Plantar fasciitis of right foot; Translations: [Plantar fascial fibromatosis] Onset: 0 04-29-2019 Episodic Other connective tissue disease (16 sources) Muscle pain; Translations: [Myalgia and myositis, unspecified] Resolved: 0 11-12-2009 Episodic Other connective tissue disease (20 sources) Triggering of digit; Translations: [Trigger finger, right ring finger] Onset: 5 Resolved: 7 07-25-2016 Episodic Other connective tissue disease (1 source) Pain in right foot; Translations: [Foot pain, right] Onset: 4 Episodic Other ear and sense organ disorders (17 sources) Otalgia, left ear; Translations: [Otalgia, unspecified] Onset: 4 Resolved: 6 2023 Episodic Other female genital disorders (16 sources) Abnormal uterine bleeding; Translations: [Abnormal uterine and vaginal bleeding, unspecified] Onset: 3 Resolved: 4 01-13-2014 Chronic Other gastrointestinal disorders (20 sources) Abdominal bloating; Translations: [Abdominal distension (gaseous)] Onset: 2 03-18-2021 Episodic Other gastrointestinal disorders (20 sources) History of bypass of stomach; Translations: [Bariatric surgery status] Onset: 3 05-30-2022 Episodic Other gastrointestinal disorders (16 sources) Diarrhea; Translations: [Diarrhea, unspecified] Onset: 1 Resolved: 1 07-01-2010 Episodic Other lower respiratory disease (20 sources) Cough; Translations: [Acute cough] Onset: 2 Episodic Other nervous system disorders (16 sources) Carpal tunnel syndrome of right wrist; Translations: [Carpal tunnel syndrome, right upper limb] Onset: 4 Resolved: 7 07-25-2016 Chronic Other nervous system disorders (20 sources) Right trigeminal neuralgia; Translations: [Trigeminal neuralgia] Onset: 5 04-21-2014 Episodic Other nervous system disorders (16 sources) Abnormal gait; Translations: [Unspecified abnormalities of gait and mobility] Onset: 2 Resolved: 6 03-17-2015 Episodic Other nervous system disorders (16 sources) Paresthesia of hand ; Translations: [Paresthesia of skin] Onset: 4 Resolved: 7 07-25-2016 Episodic Other non-traumatic joint disorders (20 sources) Multiple joint pain; Translations: [Pain in unspecified joint] Onset: 2 Episodic Other non-traumatic joint disorders (1 source) Pain in unspecified joint; Translations: [Multiple joint pain] Onset: 2 Episodic Other nutritional; endocrine; and metabolic disorders (10 sources) Increased appetite; Translations: [Polyphagia] Onset: 4 08-22-2023 Episodic Other nutritional; endocrine; and metabolic disorders (1 source) Polyphagia; Translations: [Appetite increase] Onset: 4 Episodic Other screening for suspected conditions (not mental disorders or infectious disease) (20 sources) Thyroid function tests abnormal; Translations: [Abnormal results of thyroid function studies] Onset: 2 Episodic Other skin disorders (16 sources) Nail deformity; Translations: [Other nail disorders] Onset: 4 Resolved: 7 07-25-2016 Episodic Other skin disorders (16 sources) Folliculitis; Translations: [Follicular disorder, unspecified] Onset: 4 Resolved: 6 03-17-2015 Episodic Other upper respiratory disease (16 sources) Allergy to pollen; Translations: [Allergic rhinitis due to pollen] Onset: 1 Resolved: 7 07-25-2016 Chronic Other upper respiratory disease (16 sources) Disorder of nasal sinus; Translations: [Unspecified disorder of nose and nasal sinuses] Onset: 9 Resolved: 0 11-12-2009 Episodic Otitis media and related conditions (16 sources) Acute serous otitis media of bilateral ears; Translations: [Acute serous otitis media, bilateral] Onset: 4 Resolved: 6 03-17-2015 Episodic Pancreatic disorders (not diabetes) (20 sources) Pancreatic insufficiency; Translations: [Other specified diseases of pancreas] Onset: 2 Episodic Phlebitis; thrombophlebitis and thromboembolism (20 sources) Deep venous thrombosis; Translations: [Acute embolism and thrombosis of unspecified deep veins of unspecified lower extremity] Onset: 3 06-26-2012 Episodic Residual codes; unclassified (20 sources) Postoperative state; Translations: [Other specified postprocedural states] Onset: 0 01-21-2020 Episodic Spondylosis; intervertebral disc disorders; other back problems (20 sources) Left cervical root neuropathy; Translations: [Radiculopathy, cervical region] Onset: 0 06-16-2019 Episodic Suicide and intentional self-inflicted injury (20 sources) Suicide attempt ; Translations: [Suicide and self-inflicted injury by unspecified means] Onset: 0 08-15-2016 Episodic Viral infection (16 sources) Infective dermatosis of female genitalia; Translations: [Anogenital (venereal) warts] Onset: 6 Resolved: 7 04-27-2016 Episodic Results Test Name Value Interpretation Reference Range Facility [facility] 12-28-2023 [facility] HNO ID: [id number] Author: SIERRA HU TECHNOLOGIST Service: ? Author Type: Technologist Type: [facility] Filed: 12/28/2023 17:48 Note Text: Radiology Service Progress Note PATIENT NAME: Ning Mendes DATE OF SERVICE: December 28, 2023 TIME: 5:47 PM PATIENT IDENTITY VERIFICATION COMPLETED USING TWO (2) IDENTIFIERS: Name and Date of confirmed by patient verbally. FALL SCREENING: Has the patient had 2 falls in the last year or 1 fall with injury or currently using an Ambulatory Assistive Device (Walker, Cane, Wheelchair, Crutches, etc.)? Emergency Room Patient: Screened in ED PATIENT GENDER DATA: Female. status: : No status: NO. PATIENT RELEVANT IMPLANT DATA REVIEWED: Yes PATIENT PRESENTS WITH AN IMPLANTABLE OR ATTACHED CAR DRIVER: No RADIOLOGY DEPARTMENT: Ultrasound PERIPHERAL IV DATA: Not applicable SIGNED BY: Sierra Hu TECHNOLOGIST December 28, 2023 5:47 PM [facility] ED NOTEon 12-28-2023 ED NOTE HNO ID: [id number] Author: BENSON ARROYO RN Service: Emergency Medicine Author Type: Registered Nurse Type: ED Notes Filed: 12/29/2023 09:16 Note Text: Patient Call Back Information How are you doing ? better Did we appropriately manage your pain? Yes Did you understand your discharge instructions? Yes Did you get your prescriptions filled? Yes Were you able to make a follow-up appointment with your physician? Yes Were you comfortable during your stay here? Yes Did a member of the ER nursing team round on you during your visit? Yes You will receive a patient satisfaction survey in the mail in the nest 2 weeks, please take the time to fill out the survey as your input from your ER visit is very important to us. Yes Can we do anything else to help you? No [facility] ED NOTE HNO ID: [id number] Author: KALI RAMOS RN Service: Emergency Medicine Author Type: Registered Nurse Type: ED Notes Filed: 12/28/2023 19:36 Note Text: Patient discharge instructions given to patient. Patient educated on discharge instructions. Patient denied having questions at this time regarding discharge instructions. Patient discharged home at this time. [facility] ED NOTE HNO ID: [id number] Author: KALI RAMOS RN Service: Emergency Medicine Author Type: Registered Nurse Type: ED Notes Filed: 12/28/2023 19:15 Note Text: Change of shift report received from Yumiko Garcia RN. I assumed patient care at this time. [facility] ED NOTE HNO ID: [id number] Author: YUMIKO ZAMUDIO RN Service: Nursing Author Type: Registered Nurse Type: ED Notes Filed: 12/28/2023 17:32 Note Text: US at bedside [facility] ED NOTE HNO ID: [id number] Author: YUMIKO ZAMUDIO RN Service: Nursing Author Type: Registered Nurse Type: ED Notes Filed: 12/28/2023 17:19 Note Text: Pt denies injury [facility] ED NOTE HNO ID: [id number] Author: KAIN JIMÉNEZ RN Service: Emergency Medicine Author Type: Registered Nurse Type: ED Notes Filed: 12/28/2023 17:02 Note Text: Pt reports pain/burning sensation to L left lower leg. Patient is alert and oriented ambulates to room 4 [facility] ED PROV NOTEon 12-28-2023 ED PROV NOTE HNO ID: [id number] Author: CIERRA EMMANUEL MD Service: Emergency Medicine Author Type: Physician Type: ED Provider Notes Filed: 12/28/2023 21:38 Note Text: ED Provider Note Patient Name: Ning Mendes : 1970 SERVICE DATE: 12/28/23 History Patient presents with: Leg Pain HPI Patient is a 53-year-old female who has history as below presenting with concern for blood clot in her left leg. States that she noticed a lump on the upper outer aspect of her left calf and some discomfort. States that it is burning, sore. States that it was bruised looking fall trauma or injury. Was concerned that she was developing a blood clot, DVT she has a history of this so presents for ED assessment. Chest pain, shortness of breath. No palpitations. PAST MEDICAL HISTORY Diagnosis Date Abdominal pain 02/15/2016 Abdominal pain, epigastric Anxiety state, unspecified Aortic aneurysm (HCC) ascending thoracic Asthma Calcaneal spur 05/24/2011 Carpal tunnel syndrome, right 05/2013 moderate Colon polyps Depressive disorder, not elsewhere classified Diaphragmatic hernia without mention of obstruction or gangrene DVT (deep venous thrombosis) (HCC) post foot surgery, x 2 interval Endometriosis ? HX not confirmed Fibromyalgia muscle pain GERD (gastroesophageal reflux disease) Hayfever 10/04/2010 HSV (herpes simplex virus) infection Hypercholesteremia Hypertension 01/2017 Impaired fasting glucose 08/2013 5.7% A1C Mild intermittent asthma without complication 10/27/2019 NNEKA (obstructive sleep apnea) 10/27/2019 Patellofemoral disorder 03/09/2009 PONV (postoperative nausea and vomiting) 03/17/2015 PTSD (post-traumatic stress disorder) per counseling center rheumatoid arthritis Right carpal tunnel syndrome 06/30/2013 Right hand paresthesia 04/28/2013 Seizures (HCC) Snoring Temporomandibular joint disorders, unspecified Toenail deformity 04/28/2013 Trigger middle finger of right hand 12/15/2014 Trigger ring finger of right hand 12/15/2014 Vitamin D deficiency 03/2013 PAST SURGICAL HISTORY Procedure Laterality Date CARPAL TUNNEL 07/2013 right, Dr. Draper DELIVERY ONLY 1990 , low cervical COLONOSCOPY 08/11/2014 normal, repeat in 5 years COLONOSCOPY FLX DX W/COLLJ SPEC WHEN PFRMD 06/24/2004 Colonoscopy/Dr. Cash COLONOSCOPY FLX DX W/COLLJ SPEC WHEN PFRMD 11/23/2017 Colonoscopy COLONOSCOPY W/BIOPSY SINGLE/MULTIPLE 05/04/2010 EGD EGD 08/11/2014 mild chronic gastritis EGD TRANSORAL BIOPSY SINGLE/MULTIPLE 05/04/2010 ESOPHAGOGASTRODUODENOSC OPY TRANSORAL DIAGNOSTIC 11/23/2017 EGD ESOPHAGOGASTRODUODENOSC OPY TRANSORAL DIAGNOSTIC 05/01/2019 EGD GASTRIC BYPASS HX 05/26/2022 INCISE FINGER TENDON SHEATH Right 03/23/2015 Right middle trigger finger release LAPAROSCOPIC TUBAL LIGATION/RING/CLIP 2012 alessandro elliott vesicouterine adhesions LAPAROSCOPY DIAGNOSTIC 2016 extensive KEVYN, severe LAPS SURG CHOLECYSTECTOMY W/CHOLANGIOGRAPHY 05/02/2006 LAPS W/VAG HYSTERECT 250 GM/ANDRMVL TUBEAND/OVARIES 2014 [facility] bilateral salpingectomy, scar tissue LIDOCAINE IV treatments-Mohit Duran PAST SURGICAL HISTORY OF 01/13/2006 Bilateral Breast Reduction PAST SURGICAL HISTORY OF 06/14/2011 left foot for plantar fasciitis REVISE MEDIAN N/CARPAL TUNNEL SURG Left 03/22/2022 Left carpal tunnel release and injection left shoulder S CATH ABLATION THERMACHOICE 2013 uterine ablation FAMILY HISTORY Problem Relation Age of Onset Hypertension Mother Lipids Mother Alcohol/Drug Mother Allergies Mother Alcohol/Drug Father Thyroid Sister other (fibromyalgia) Sister other (brain) Sister surgery brain too big for her skull (plate) Blindness Sister Alcohol/Drug Brother Emphysema Maternal Grandmother Emphysema Maternal Grandfather Heart Paternal Grandmother Anesthesia Problems No Family History Social History Tobacco Use Smoking status: Never Smokeless tobacco: Never Vaping Use Vaping status: Never Used Substance and Sexual Activity Alcohol use: Not Currently Drug use: No Sexual activity: Yes Partners: Male control/protection: Vasectomy, Surgical Comment: Vaginal Hysterectomy ALLERGIES Allergen Reactions Miconazole Itching Milnacipran Mental Status Change, Other: See Comments [place] weird. Rivaroxaban Other: See Comments, GI Upset Taste of blood in mouth and muscle aches Morphine Shortness of Breath Atorvastatin Other: See Comments Leg aching and pain Coumadin [Warfarin * Other: See Comments headache,arm pain and back pain Dilaudid [Hydromorp* Other: See Comments Pain Lyrica [Pregabalin] Rash, Cough, Itching Prednisone Itching Review of Systems Per HPI Physical Exam Vitals [12/28/23 1702] BP Pulse Temp Temp src Resp SpO2 Weight Height 127/70 64 (!) 35.8 ?C (96.4 ?F) Temporal 18 98 % 81.6 kg (180 lb) -- Physical Exam Well-appearing, non-toxic and in (more content not included)... [facility] US DVT LOWER LTon 12-28-2023 US DVT LOWER LT * * *Final Report* * * DATE OF EXAM: Dec 28 2023 5:46PM LDU 1006 - US DVT LOWER LT / PROCEDURE REASON: Leg deep vein thrombosis (DVT), new symptoms * * * * Physician Interpretation * * * * EXAMINATION: LEFT LOWER EXTREMITY DEEP VENOUS ULTRASOUND WITH DOPPLER IMAGING CLINICAL HISTORY: Leg swelling TECHNIQUE: Grayscale with compression maneuvers, color Doppler and spectral Doppler imaging of the left proximal deep veins was performed. Grayscale with compression maneuvers of the peroneal and posterior tibial veins was performed. The left great and small saphenous veins were evaluated at their insertion to the deep system. The contralateral common femoral vein was imaged for comparison. Images were obtained and stored in a permanent archive. MQ: [id number] COMPARISON: None RESULT: LEFT LOWER EXTREMITY PROXIMAL DEEP VEINS Distal External Iliac, Common Femoral and proximal Profunda Veins: Compression: Normal Doppler: Normal, spontaneous respirophasic flow. Normal response to augmentation. Femoral vein: Compression: Normal Doppler: Normal, spontaneous flow. Normal response to augmentation. Popliteal vein: Compression: Normal Doppler: Normal, spontaneous flow. Normal response to augmentation. CALF DEEP VEINS Peroneal veins: Normal compression. Posterior tibial veins: Normal compression. Gastrocnemius and Soleal veins: Not imaged. SUPERFICIAL VEINS Great saphenous: Patent and compressible at insertion into common femoral vein; not otherwise assessed. Small Saphenous: Patent and compressible in the proximal calf, not otherwise assessed. RIGHT LOWER EXTREMITY (FOR COMPARISON) Common Femoral Vein: Compression: Normal Doppler: Normal, spontaneous respirophasic flow. Normal response to augmentation. IMPRESSION: NEGATIVE STUDY FOR PROXIMAL DVT IN THE LEFT LOWER EXTREMITY. NEGATIVE STUDY FOR CALF DVT IN THE LEFT LOWER EXTREMITY. NEGATIVE STUDY FOR SUPERFICIAL THROMBOPHLEBITIS IN THE IMAGED SEGMENTS OF THE LEFT LOWER EXTREMITY. Plant Tour Guide[facility] Transcribe Date/Time: Dec 28 2023 7:01P Dictated by : GELY WILSON MD This examination was interpreted and the report reviewed and electronically signed by: GELY WILSON MD on Dec 28 2023 7:02PM EST [id number] [facility] NING MENDES ([id number]) 1970 F NFR Date Time Provider Department 12/05/23 10:30 AM [facility] During your visit today, we recorded the following information about you: Temperature Pulse Respiration Blood pressure 96.9 degrees 66/minute 16/minute 110/72 Weight 83.2 kg Mark Tate MD 12/05/2023 10:52 AM Signed Patient presents with: Head Congestion: dry cough, fatigue. right ear pain x 2 weeks HPI: Right ear discomfort for a couple weeks. Pain has been sharp for a couple days. The pain is radiating down the neck to the right shoulder and her trigeminal neuralgia is aggravated on the right parietal. Positive symptoms: dry Cough, right Earache, some Sinus pressure/Nasal Congestion, scratchy throat, Fatigue, Negative symptoms: Shortness of breath, Fever, Chills, OTC: Tylenol MEDICATIONS: Current Outpatient Medications Medication Sig valACYclovir (VALTREX) 500 mg tablet Take 1 tablet by mouth two times a day. rOPINIRole (REQUIP) 0.5 mg tablet Take 1-2 tablets by mouth at bedtime as needed (restless legs). pantoprazole DR (PROTONIX) 40 mg tablet Take 1 tablet by mouth once daily. blood sugar diagnostic (BLOOD GLUCOSE TEST) test strip Test blood sugar(s) 2 times daily. Dx: Other DM Code fluctuating blood glucose, hypoglycemia Insulin: No Lancets Test blood sugar(s) 2 times daily. Dx: Other DM Code fluctuating blood glucose, hypoglycemia. Insulin: No cetirizine (ZYRTEC) 10 mg tablet Take 1 tablet by mouth once daily. escitalopram oxalate (LEXAPRO) 5 mg tablet Take 1 tablet by mouth daily at bedtime. For mood no115/iron/folic acid ( 19 ORAL) Take 1 tablet by mouth once daily. fluticasone (FLONASE) 50 mcg/actuation nasal spray Use 2 Sprays in each nostril once daily. Rinse mouth after use. fluticasone (FLOVENT HFA) 110 mcg/actuation inhaler Inhale 1 Puff as instructed twice daily. Rinse mouth after using. Blood Pressure Monitor 1 Each as directed. Blood pressure KIT, Dx: HTN ondansetron orally disintegrating (ZOFRAN ODT) 4 mg disintegrating tablet Take 1 tablet by mouth every 8 hours as needed for nausea/vomiting. Miscellaneous Medical Supply (BLOOD PRESSURE CUFF) 1 Each once daily. ipratropium-albuterol (DUONEB) 0.5 mg-3 mg(2.5 mg base)/3 mL nebu Inhale 3 mL as instructed every 4 hours as needed for wheezing/shortness of breath. Nebulizers 1 Each as directed. Dx: wheezing, recurrent acute bronchitis, Nebulizer Accessories misc 1 Each as directed. Dx: wheezing, recurrent acute bronchitis, Tubing and mask for nebulizer omeprazole (PRILOSEC) 40 mg capsule Take 1 capsule by mouth twice daily. Open capsules ynjvgk-favqboob-wjrkxff (CREON) 36,000-114,000- 180,000 unit delayed release capsule Take 3 capsules by mouth three times daily with meals. No current facility-administered medications for this visit. ALLERGIES: ALLERGIES Allergen Reactions Miconazole Itching Milnacipran Mental Status Change, Other: See Comments [place] weird. Rivaroxaban Other: See Comments, GI Upset Taste of blood in mouth and muscle aches Morphine Shortness of Breath Atorvastatin Other: See Comments Leg aching and pain Coumadin [Warfarin * Other: See Comments headache,arm pain and back pain Dilaudid [Hydromorp* Other: See Comments Pain Lyrica [Pregabalin] Rash, Cough, Itching Prednisone Itching VITALS: BP 110/72 Pulse 66 Temp 36.1 ?C (96.9 ?F) Resp 16 Wt 83.2 kg (183 lb 6.8 oz) LMP 07/11/2012 SpO2 97% BMI 33.55 kg/m? PHYSICAL EXAM: GEN: Pleasant, in no acute distress. HEENT: PERRL, EOMI, conjunctiva clear Ears: canals clear. TMs without erythema, bulge, or effusion. Tender right TMJ palpation reproduces right ear pain. Sinuses: non-tender frontal sinus, non-tender maxillary sinuses Throat: moist mucous membranes, mild erythema, no exudate Neck: supple, no thyromegaly, no lymphadenopathy HEART: regular rate and rhythm, no murmurs LUNGS: clear to auscultation, no wheezes or crackles, no increased WOB ASSESSMENT/PLAN: 1. Otalgia, right - ICD9: 388.70, ICD10: H92.01 Reassured by benign exam with no ear infection. Right temporomandibular joint pain. 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 Continue ccsd-bls-pbwvqfu acetaminophen. Discussed options for further treatment to include consult to specialist focusing on TMJ pain: dentist, oral maxillofacial surgeon, physical therapy. Mark Tate MD Allergies As of Date: 12/05/2023 Noted Allergy Reaction MICONAZOLE 01/13/2004 9 - Itching MILNACIPRAN 07/19/2011 1 - Mental Status Change 14 - Other: See Comments Comments: [place] weird. RIVAROXABAN 12/02/2014 14 - Other: See Comments 8 - GI Upset Comments: Taste of blood in mouth and muscle aches MORPHINE 03/09/2009 12 - Shortness of Breath A (more content not included)... Normal [facility] Zaira 10-09-2023 [facility] Telephone ([facility]) NING MENDES ([id number]) 1970 F NFR Date Time Provider Department 10/09[facility]23 [facility] During your visit today, we recorded the following information about you: Karen Middleton MA 10/09/2023 2:43 PM Signed Pt sends World[employer] message asking about weight loss meds. See pt message below. Eddy, we talked about putting me on something to help with my weight loss, is it possible that I can get something now since my labs were okay? Thank you Tang Olguin DO 10/23/2023 7:12 AM Signed Please let her know that options would include Metformin or Adipex or Wellbutrin (or a combination of 2 of these medications). What is she interested in starting? DO Corrine Wright [place], MA 10/23/2023 9:43 AM Signed Sent pt World[employer] message Alicia Castle MA Allergies As of Date: 10/09/2023 Noted Allergy Reaction MICONAZOLE 01/13/2004 9 - Itching MILNACIPRAN 07/19/2011 1 - Mental Status Change 14 - Other: See Comments Comments: [place] weird. RIVAROXABAN 12/02/2014 14 - Other: See Comments 8 - GI Upset Comments: Taste of blood in mouth and muscle aches MORPHINE 03/09/2009 12 - Shortness of Breath ATORVASTATIN 08/28/2018 14 - Other: See Comments Comments: Leg aching and pain COUMADIN (WARFARIN SODIUM) 07/19/2011 14 - Other: See Comments Comments: headache,arm pain and back pain DILAUDID (HYDROMORPHONE (BULK)) 03/17/2013 14 - Other: See Comments Comments: Pain LYRICA (PREGABALIN) 07/22/2018 2 - Rash 3 - Cough 9 - Itching PREDNISONE 12/27/2021 9 - Itching Date Reviewed: 06/06/2023 Reviewed by: Sánchez Pelletier APRN.EVALUATION MANAGER - Fully Assessed Reason for Visit: Weight Problem [121] Prescriptions as of 10/23/2023 - blood sugar diagnostic (BLOOD GLUCOSE TEST) test strip Test blood sugar(s) 2 times daily. Dx: Other DM Code fluctuating blood glucose, hypoglycemia Insulin: No - Lancets Test blood sugar(s) 2 times daily. Dx: Other DM Code fluctuating blood glucose, hypoglycemia. Insulin: No - cetirizine (ZYRTEC) 10 mg tablet Take 1 tablet by mouth once daily. - escitalopram oxalate (LEXAPRO) 5 mg tablet Take 1 tablet by mouth daily at bedtime. For mood - pantoprazole DR (PROTONIX) 40 mg tablet Take 1 tablet by mouth once daily. - no115/iron/folic acid ( 19 ORAL) Take 1 tablet by mouth once daily. - fluticasone (FLONASE) 50 mcg/actuation nasal spray Use 2 Sprays in each nostril once daily. Rinse mouth after use. - valACYclovir (VALTREX) 500 mg tablet Take 1 tablet by mouth two times a day. - rOPINIRole (REQUIP) 0.5 mg tablet Take 1-2 tablets by mouth at bedtime as needed (restless legs). - fluticasone (FLOVENT HFA) 110 mcg/actuation inhaler Inhale 1 Puff as instructed twice daily. Rinse mouth after using. - omeprazole (PRILOSEC) 40 mg capsule Take 1 capsule by mouth twice daily. Open capsules - Blood Pressure Monitor 1 Each as directed. Blood pressure KIT, Dx: HTN - ondansetron orally disintegrating (ZOFRAN ODT) 4 mg disintegrating tablet Take 1 tablet by mouth every 8 hours as needed for nausea/vomiting. - qgpobj-sxhcgvyr-ddflxlc (CREON) 36,000-114,000- 180,000 unit delayed release capsule Take 3 capsules by mouth three times daily with meals. - Miscellaneous Medical Supply (BLOOD PRESSURE CUFF) 1 Each once daily. - ipratropium-albuterol (DUONEB) 0.5 mg-3 mg(2.5 mg base)/3 mL nebu Inhale 3 mL as instructed every 4 hours as needed for wheezing/shortness of breath. - Nebulizers 1 Each as directed. Dx: wheezing, recurrent acute bronchitis, - Nebulizer Accessories misc 1 Each as directed. Dx: wheezing, recurrent acute bronchitis, Tubing and mask for nebulizer Problem List As Of Date 10/09/2023 Noted Resolved HYPERTROPHY OF BREAST [N62] 01/13/2004 05/18/2006 Endometriosis [617] 04/22/2014 Anxiety state [F41.1] Moderate single current episode of major depres* TM JOINT DISORDER, UNSPEC [M26.609] 05/18/2006 Unspecified Myalgia and Myositis [CYP9472] 11/12/2009 Other and unspecified hyperlipidemia [E78.5] 03/30/2005 Personal history of colonic polyps [Z86.010] 03/15/2006 07/01/2010 PAIN ABDOMEN( Right Upper Quadrant) [R10.11] 04/20/2006 05/18/2006 Hemorrhage of rectum and anus [K62.5] 03/17/2015 Abdominal Pain, Epigastric [R10.13] 11/12/2009 BILIARY DYSKINESIA [K82.8] 04/25/2006 03/17/2015 Obesity [E66.9] 05/18/2006 Other Malaise and Fatigue [R53.81, R53.83] 04/22/2007 11/12/2009 Acute bronchitis [J20.9] 07/13/2008 Contact Dermatitis and Other Eczema, due to Uns*07/13/2008 11/12/2009 Sinus Disorder [J34.9] 11/23/2008 11/12/2009 Patellofemoral disorder [M22.2X9] 03/09/2009 07/25/2016 Suicidal attempted 04/06/2009 Fibromyalgia [M79.7] 11/12/2009 IBS (irritable bowel syndrome) [K58.9] 11/12/2009 GERD (gastroesophageal reflux disease) [K21.9] 11/12/2009 Epigastric pain [R10.13] 12/27/2009 (more content not included)... Normal [facility] CBC W Auto Differential pane l (Bld)on 08-22-2023 Basophils (Bld) [#/Vol] 0.05 10*3/uL Normal <0.11 [facility] Comment on above: Order Comment: Speci men Type: BLOOD SPECIMENOrdering Facility: [facility] Address: [address] [place] [address] Performed By: #### 5 7021-8 ####[facility] LABCLIA [id number] [place] [address] [place] Basophils/100 WBC (Bld) 1.0 % Normal [facility] Comment on above: Order Comment: Speci men Type: BLOOD SPECIMENOrdering Facility: [facility] Address: [address] [place] [address] Performed By: #### 5 7021-8 ####[facility]CL[facility] [id number] [place] [address] [place] Differential cell count method Nom (Bld) Auto Normal [facility] Comment on above: Order Comment: Speci men Type: BLOOD SPECIMENOrdering Facility: [facility] Address: [address] [place] [address] Performed By: #### 5 7021-8 ####[facility]CLIA [id number] [place] [address] [place] Eosinophils (Bld) [#/Vol] 0.07 10*3/uL Normal <0.46 [facility] Comment on above: Order Comment: Speci men Type: BLOOD SPECIMENOrdering Facility: [facility] Address: [address] [place] [address] Performed By: #### 5 7021-8 ####[facility] LABCLIA [id number] [place] [address] [place] Eosinophils/100 WBC (Bld) 1.4 % Normal [facility] Comment on above: Order Comment: Speci men Type: BLOOD SPECIMENOrdering Facility: [facility] Address: [address] [place] [address] Performed By: #### 5 7021-8 ####[facility] LABCLIA [id number] [address] [id number] [address] [place] [place] Erythrocyte distribution width (RBC) [Ratio] 13.1 % Normal 11.5-15.0 [facility] Comment on above: Order Comment: Speci men Type: BLOOD SPECIMENOrdering Facility: [facility] Address: [address] [place] [address] Performed By: #### 5 7021-8 ####[facility] [id number] [place] [address] [place] Hematocrit (Bld) [Volume fraction] 40.4 % Normal 36.0-46.0 [facility] Comment on above: Order Comment: Speci men Type: BLOOD SPECIMENOrdering Facility: [facility] Address: [address] [place] [address] Performed By: #### 5 7021-8 ####[facility] [id number] [place] [address] [place] Hemoglobin (Bld) [Mass/Vol] 13.7 g/dL Normal 11.5-15.5 [facility] Comment on above: Order Comment: Speci men Type: BLOOD SPECIMENOrdering Facility: [facility] Address: [address] [place] [address] Performed By: #### 5 7021-8 ####[facility] [id number] [place] [address] [place] Immature granulocytes (Bld) [#/Vol] 10*3/uL Normal <0.10 [facility] Comment on above: Order Comment: Speci men Type: BLOOD SPECIMENOrdering Facility: [facility] Address: [address] [place] [address] Performed By: #### 5 7021-8 ####[facility] [id number] [place] [address] [place] Immature granulocytes/100 WBC (Bld) 0.2 % Normal [facility] Comment on above: Order Comment: Speci men Type: BLOOD SPECIMENOrdering Facility: [facility] Address: [address] [place] [address] Performed By: #### 5 7021-8 ####[facility] [id number] [place] [address] [place] Lymphocytes (Bld) [#/Vol] 1.86 10*3/uL Normal 1.00-4.00 [facility] Comment on above: Order Comment: Speci men Type: BLOOD SPECIMENOrdering Facility: [facility] Address: [address] [place] [address] Performed By: #### 5 7021-8 ####[facility] [id number] [place] [address] [place] Lymphocytes/100 WBC (Bld) 37.7 % Normal [facility] Comment on above: Order Comment: Speci men Type: BLOOD SPECIMENOrdering Facility: [facility] Address: [address] [place] [address] Performed By: #### 5 7021-8 ####[facility] [id number] [place] [address] [place] MCH (RBC) [Entitic mass] 30.3 pg Normal 26.0-34.0 [facility] Comment on above: Order Comment: Speci men Type: BLOOD SPECIMENOrdering Facility: [facility] Address: [address] [place] [address] Performed By: #### 5 7021-8 ####[facility] [id number] [place] [address] [place] MCHC (RBC) [Mass/Vol] 33.9 g/dL Normal 30.5-36.0 [facility] Comment on above: Order Comment: Speci men Type: BLOOD SPECIMENOrdering Facility: [facility] Address: [address] [place] [address] Performed By: #### 5 7021-8 ####[facility] [id number] [place] [address] [place] MCV (RBC) [Entitic vol] 89.4 fL Normal 80.0-100.0 [facility] Comment on above: Order Comment: Speci men Type: BLOOD SPECIMENOrdering Facility: [facility] Address: [address] [place] [address] Performed By: #### 5 7021-8 ####[facility] [id number] [place] [address] [place] Monocytes (Bld) [#/Vol] 0.36 10*3/uL Normal <0.87 [facility] Comment on above: Order Comment: Speci men Type: BLOOD SPECIMENOrdering Facility: [facility] Address: [address] [place] [address] Performed By: #### 5 7021-8 ####[facility] [id number] [place] [address] [place] Monocytes/100 WBC (Bld) 7.3 % Normal [facility] Comment on above: Order Comment: Speci men Type: BLOOD SPECIMENOrdering Facility: [facility] Address: [address] [place] [address] Performed By: #### 5 7021-8 ####[facility] [id number] [place] [address] [place] Neutrophils (Bld) [#/Vol] 2.59 10*3/uL Normal 1.45-7.50 [facility] Comment on above: Order Comment: Speci men Type: BLOOD SPECIMENOrdering Facility: [facility] Address: [address] [place] [address] Performed By: #### 5 7021-8 ####[facility] [id number] [place] [address] [place] Neutrophils/100 WBC (Bld) 52.4 % Normal [facility] Comment on above: Order Comment: Speci men Type: BLOOD SPECIMENOrdering Facility: [facility] Address: [address] [place] [address] Performed By: #### 5 7021-8 ####[facility] [id number] [place] [address] [place] Nucleated RBC (Bld) [#/Vol] 10*3/uL Normal <0.01 [facility] Comment on above: Order Comment: Speci men Type: BLOOD SPECIMENOrdering Facility: [facility] Address: [address] [place] [address] Performed By: #### 5 7021-8 ####[facility] [id number] [place] [address] [place] Nucleated RBC/100 WBC (Bld) [Ratio] 0.0 /100 WBC Normal [facility] Comment on above: Order Comment: Speci men Type: BLOOD SPECIMENOrdering Facility: [facility] Address: [address] [place] [address] Performed By: #### 5 7021-8 ####[facility] [id number] [place] [address] [place] Platelet mean volume (Bld) [Entitic vol] 11.3 fL Normal 9.0-12.7 [facility] Comment on above: Order Comment: Speci men Type: BLOOD SPECIMENOrdering Facility: [facility] Address: [address] [place] [address] Performed By: #### 5 7021-8 ####[facility] [id number] [place] [address] [place] Platelets (Bld) [#/Vol] 201 10*3/uL Normal 150-400 [facility] Comment on above: Order Comment: Speci men Type: BLOOD SPECIMENOrdering Facility: [facility] Address: [address] [place] [address] Performed By: #### 5 7021-8 ####[facility] [id number] [place] [address] [place] RBC (Bld) [#/Vol] 4.52 10*6/uL Normal 3.90-5.20 [facility] Comment on above: Order Comment: Speci men Type: BLOOD SPECIMENOrdering Facility: [facility] Address: [address] [place] [address] Performed By: #### 5 7021-8 ####[facility] [id number] [place] [address] [place] WBC (Bld) [#/Vol] 4.94 10*3/uL Normal 3.70-11.00 [facility] Comment on above: Order Comment: Speci men Type: BLOOD SPECIMENOrdering Facility: [facility] Address: [address] [place] [address] Performed By: #### 5 7021-8 ####[facility] [id number] [place] [address] [place] Comprehensive metabolic 2000 panelon 08-22-2023 Albumin [Mass/Vol] 3.8 g/dL Low 3.9-4.9 [facility] Comment on above: Order Comment: Speci men Type: BLOOD SPECIMENOrdering Facility: [facility] Address: [address] [place] [address] Performed By: #### 3 016-3, 21248-7, 302-7, 3051-0 ####[facility] [id number] [place] [id number] [place] ALP [Catalytic activity/Vol] 127 U/L High 34-123 [facility] Comment on above: Order Comment: Speci men Type: BLOOD SPECIMENOrdering Facility: [facility] Address: [address] [place] [address] Performed By: #### 3 016-3, 73195-9, 3024-7, 3051-0 ####[facility] [id number] [address] [address] [place] ALT [Catalytic activity/Vol] 32 U/L Normal 7-38 [facility] Comment on above: Order Comment: Speci men Type: BLOOD SPECIMENOrdering Facility: [facility] Address: [address] [place] [address] Performed By: #### 3 016-3, 19553-4, 3023-7, 3051-0 ####[facility] [id number] [place] [id number] [place] Anion gap [Moles/Vol] 8 mmol/L Normal 8-15 [facility] Comment on above: Order Comment: Speci men Type: BLOOD SPECIMENOrdering Facility: [facility] Address: [address] [place] [address] Performed By: #### 3 016-3, 65339-1, 3023-7, 305-0 ####[facility] [id number] [place] [address] [place] AST [Catalytic activity/Vol] 32 U/L Normal 13-35 [facility] Comment on above: Order Comment: Speci men Type: BLOOD SPECIMENOrdering Facility: [facility] Address: [address] [place] [address] Performed By: #### 3 016-3, 11042-1, 3023-7, 305-0 ####[facility] [id number] [place] [id number] [place] Bilirubin [Mass/Vol] 0.4 mg/dL Normal 0.2-1.3 [facility] Comment on above: Order Comment: Speci men Type: BLOOD SPECIMENOrdering Facility: [facility] Address: [address] [place] [address] Performed By: #### 3 016-3, 49317-7, 302-7, 3051-0 ####[facility] [id number] [address] [address] [place] Calcium [Mass/Vol] 9.0 mg/dL Normal 8.5-10.2 [facility] Comment on above: Order Comment: Speci men Type: BLOOD SPECIMENOrdering Facility: [facility] Address: [address] [place] [address] Performed By: #### 3 016-3, 99022-1, 302-7, 3051-0 ####[facility] [id number] [place] [id number] [place] Chloride [Moles/Vol] 104 mmol/L Normal 98-107 [facility] Comment on above: Order Comment: Speci men Type: BLOOD SPECIMENOrdering Facility: [facility] Address: [address] [place] [address] Performed By: #### 3 016-3, 98898-4, 3023-7, 305-0 ####[facility] [id number] [place] [address] [place] CO2 [Moles/Vol] 27 mmol/L Normal 22-30 [facility] Comment on above: Order Comment: Speci men Type: BLOOD SPECIMENOrdering Facility: [facility] Address: [address] [place] [address] Performed By: #### 3 016-3, 96129-7, 3023-7, 305-0 ####[facility] [id number] [place] [id number] [place] Creatinine [Mass/Vol] 0.75 mg/dL Normal 0.58-0.96 [facility] Comment on above: Order Comment: Speci men Type: BLOOD SPECIMENOrdering Facility: [facility] Address: [address] [place] [address] Performed By: #### 3 016-3, 11976-7, 3024-7, 3051-0 ####[facility] [id number] [address] [place] Creatinine and Glomerular filtration rate.predicted panel (S/P/Bld) 96 mL/min/1.73m??? Normal >=60 [facility] Comment on above: Order Comment: Fabiola luis m Type: BLOOD SPECIMENOrdering Facility: [facility] Address: [address] [place] [address] Result Comment: Cris mated Glomerular Filtration Rate (eGFR) is calculated using the 2020 CKD-EPI creatinine equation. This equation utilizes serum creatinine, sex, and age as parameters. The creatinine assay has traceable calibration to isotope dilution-mass spectrometry. Refer to KDIGO guidelines for clinical interpretation. In patients with unstable renal function, e.g. those with acute kidney injury, the eGFR may not accurately reflect actual GFR. Performed By: #### 3 016-3, 69692-0, 3024-7, 3051-0 ####[facility] [id number] [place] [address] [place] Glucose [Mass/Vol] 84 mg/dL Normal 74-99 [facility] Comment on above: Order Comment: Fabiola asencio Type: BLOOD SPECIMENOrdering Facility: [facility] Address: [address] [place] [address] Result Comment: The [place] [employer] (ADA) provides guidance for cutoff values for fasting glucose and random glucose. The ADA defines fasting as no caloric intake for at least 8 hours. Fasting plasma glucose results between 100 to 125 mg/dL indicate increased risk for diabetes (prediabetes). Fasting plasma glucose results greater than or equal to 126 mg/dL meet the criteria for diagnosis of diabetes. In the absence of unequivocal hyperglycemia, results should be confirmed by repeat testing. In a patient with classic symptoms of hyperglycemia or hyperglycemic crisis, random plasma glucose results greater than or equal to 200 mg/dL meet the criteria for diagnosis of diabetes. Reference: Standards of Medical Care in Diabetes 2016, [place] [employer] Association. Diabetes Care. 2016.39(Suppl 1). Performed By: #### 3 016-3, 57064-5, 3024-7, 3051-0 ####[facility] [id number] [address] [address] [place] Potassium [Moles/Vol] 4.3 mmol/L Normal 3.7-5.1 [facility] Comment on above: Order Comment: Speci men Type: BLOOD SPECIMENOrdering Facility: [facility] Address: [address] [place] [address] Performed By: #### 3 016-3, 77010-0, 3024-7, 3051-0 ####[facility] [id number] [place] [id number] [place] Protein [Mass/Vol] 6.1 g/dL Low 6.3-8.0 [facility] Comment on above: Order Comment: Speci men Type: BLOOD SPECIMENOrdering Facility: [facility] Address: [address] [place] [address] Performed By: #### 3 016-3, 88050-4, 3023-7, 3051-0 ####[facility] [id number] [place] [address] [place] Sodium [Moles/Vol] 139 mmol/L Normal 136-144 [facility] Comment on above: Order Comment: Speci men Type: BLOOD SPECIMENOrdering Facility: [facility] Address: [address] [place] [address] Performed By: #### 3 016-3, 05872-4, 302-7, 3051-0 ####[facility] [id number] [place] [id number] [place] Urea nitrogen [Mass/Vol] 11 mg/dL Normal 7-21 [facility] Comment on above: Order Comment: Speci men Type: BLOOD SPECIMENOrdering Facility: [facility] Address: [address] [place] [address] Performed By: #### 3 016-3, 03520-0, 3024-7, 3051-0 ####[facility] [id number] [place] [address] [place] HbA1c (Bld)on 08-22-2023 Average glucose Estimated from glycated hemoglobin (Bld) [Mass/Vol] 100 mg/dL Normal [facility] Comment on above: Order Comment: Fabiola men Type: BLOOD SPECIMENOrdering Facility: [facility] Address: [address] [place] [address] Result Comment: eAG: (Estimated average glucose) is a calculated value from HgbA1c and is telephone sales representative of the average blood glucose level in the last 2-3 month period. Performed By: #### 5 5454-3 ####[facility] [id number] [place] [address] [place] HbA1c (Bld) [Mass fraction] 5.1 % Normal 4.3-5.6 [facility] Comment on above: Order Comment: Speci men Type: BLOOD SPECIMENOrdering Facility: [facility] Address: [address] [place] [address] Result Comment: [place] Diabetes Association guidelines indicate that patients with HgbA1c in the range 5.7-6.4% are at increased risk for development of diabetes, and intervention by lifestyle modification may be beneficial. HgbA1c greater or equal to 6.5% is considered diagnostic of diabetes. Performed By: #### 5 5454-3 ####[facility] [id number] [place] [address] [place] T3Free SerPl-mCncon 08-22-19 24 Free T3 [Mass/Vol] 2.5 pg/mL Normal 2.3-4.1 [facility] Comment on above: Order Comment: Speci men Type: BLOOD SPECIMENOrdering Facility: [facility] Address: [address] [place] [address] Performed By: #### 3 016-3, 58234-4, 3024-7, 3051-0 ####[facility] [id number] [place] [address] [place] T4 Free SerPl-mCncon 024 Free T4 [Mass/Vol] 0.9 ng/dL Normal 0.9-1.7 [facility] Comment on above: Order Comment: Speci men Type: BLOOD SPECIMENOrdering Facility: [facility] Address: [address] [place] [address] Performed By: #### 3 016-3, 99197-5, 3024-7, 3051-0 ####[facility] [id number] [address] [place] TSH SerPl-aCncon 08-22-2023 TSH Qn 3.960 m[IU]/L Normal 0.270-4.200 [facility] Comment on above: Order Comment: Speci men Type: BLOOD SPECIMENOrdering Facility: [facility] Address: [address] [place] [address] Performed By: #### 3 016-3, 90062-1, 3024-7, 3051-0 ####[facility] [id number] [address] [place] CNOVon 08-21-2023 CNOV Office Visit (FAMPWS ) NING MENDES ([id number]) 1970 F NFR Date Time Provider Department 08/21/23 3:00 PM TANG OLGUIN FAMPWS During your visit today, we recorded the following information about you: Temperature Pulse Respiration Blood pressure 97 degrees 64/minute 12/minute 110/60 Weight 83.9 kg Tang Olguin DO 08/22/2023 7:23 AM Signed CC: Ning Mendes is a 53 year old female who presents to the office for follow up HPI: Concerns for hypoglycemia and sometimes hypeglycemia- no previous known history of diabetes. Has been shaky and struggling with blood glucose regulation with feeling that her blood glucose goes from 80s to 150s range. Hasn't had diabetes in the past. She is concerned about her risk since she had IFG in the past. She is interested in having a glucometer to be able to check her blood glucose Obestiy, weight now at 185 lbs. Her goal is in the 150 lbs range. Inflammation markers were normal last labs after her weight loss Elevated LFTs. Has been seen by Dr. 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 He is helping her with medication adjustments. + Fatigue, frustrated with constant feeling of hunger, even after her bariatric surgery PAST MEDICAL HISTORY Diagnosis Date Abdominal pain 02/15/2016 Abdominal pain, epigastric Anxiety state, unspecified Aortic aneurysm (HCC) ascending thoracic Asthma Calcaneal spur 05/24/2011 Carpal tunnel syndrome, right 05/2013 moderate Colon polyps Depressive disorder, not elsewhere classified Diaphragmatic hernia without mention of obstruction or gangrene DVT (deep venous thrombosis) (HCC) post foot surgery, x 2 interval Endometriosis ? HX not confirmed Fibromyalgia muscle pain GERD (gastroesophageal reflux disease) Hayfever 10/04/2010 HSV (herpes simplex virus) infection Hypercholesteremia Hypertension 01/2017 Impaired fasting glucose 08/2013 5.7% A1C Mild intermittent asthma without complication 10/27/2019 NNEKA (obstructive sleep apnea) 10/27/2019 Patellofemoral disorder 03/09/2009 PONV (postoperative nausea and vomiting) 03/17/2015 PTSD (post-traumatic stress disorder) per counseling center rheumatoid arthritis Right carpal tunnel syndrome 06/30/2013 Right hand paresthesia 04/28/2013 Seizures (HCC) Snoring Temporomandibular joint disorders, unspecified Toenail deformity 04/28/2013 Trigger middle finger of right hand 12/15/2014 Trigger ring finger of right hand 12/15/2014 Vitamin D deficiency 03/2013 PAST SURGICAL HISTORY Procedure Laterality Date CARPAL TUNNEL 07/2013 right, Dr. Draper DELIVERY ONLY 1990 , low cervical COLONOSCOPY 08/11/2014 normal, repeat in 5 years COLONOSCOPY FLX DX W/COLLJ SPEC WHEN PFRMD 06/24/2004 Colonoscopy/Dr. Cash COLONOSCOPY FLX DX W/COLLJ SPEC WHEN PFRMD 11/23/2017 Colonoscopy COLONOSCOPY W/BIOPSY SINGLE/MULTIPLE 05/04/2010 EGD EGD 08/11/2014 mild chronic gastritis EGD TRANSORAL BIOPSY SINGLE/MULTIPLE 05/04/2010 ESOPHAGOGASTRODUODENOSC OPY TRANSORAL DIAGNOSTIC 11/23/2017 EGD ESOPHAGOGASTRODUODENOSC OPY TRANSORAL DIAGNOSTIC 05/01/2019 EGD GASTRIC BYPASS HX 05/26/2022 INCISE FINGER TENDON SHEATH Right 03/23/2015 Right middle trigger finger release LAPAROSCOPIC TUBAL LIGATION/RING/CLIP 2012 alessandro elliott vesicouterine adhesions LAPAROSCOPY DIAGNOSTIC 2016 extensive KEVYN, severe LAPS SURG CHOLECYSTECTOMY W/CHOLANGIOGRAPHY 05/02/2006 LAPS W/VAG HYSTERECT 250 GM/ANDRMVL TUBEAND/OVARIES 2013 [facility] bilateral salpingectomy, scar tissue LIDOCAINE IV treatments-Mohit Duran PAST SURGICAL HISTORY OF 01/13/2006 Bilateral Breast Reduction PAST SURGICAL HISTORY OF 06/14/2011 left foot for plantar fasciitis REVISE MEDIAN N/CARPAL TUNNEL SURG Left 03/22/2022 Left carpal tunnel release and injection left shoulder S CATH ABLATION THERMACHOICE 2012 uterine ablation Current Outpatient Medications Medication Sig Blood-Glucose Meter monitoring kit Glucose Meter of Choice - Kit - Dx: Other DM Code : fluctuating blood glucose, hypoglycemia blood sugar diagnostic (BLOOD GLUCOSE TEST) test strip Test blood sugar(s) 2 times daily. Dx: Other DM Code fluctuating blood glucose, hypoglycemia Insulin: No Lancets Test blood sugar(s) 2 times daily. Dx: Other DM Code fluctuating blood glucose, hypoglycemia. Insulin: No cetirizine (ZYRTEC) 10 mg tablet Take 1 tablet by mouth once daily. escitalopram oxalate (LEXAPRO) 5 mg tablet Take 1 tablet by mouth daily at bedtime. For mood pantoprazole DR (PROTONIX) 40 mg tablet Take 1 tablet by mouth once daily. no115/iron/folic acid ( 19 ORAL) Take 1 tablet by mouth once daily. fluticasone (FLONASE) 50 mcg/actuation nasal spray Use 2 Sprays in each nostril once daily. Rinse mouth after use. v (more content not included)... Normal [facility] CBC panel Auto (Bld)on 06-05 Erythrocyte distribution width (RBC) [Ratio] 13.4 % Normal 11.5-15.0 [facility] Comment on above: Order Comment: Speci men Type: BLOOD SPECIMENOrdering Facility: [facility] Address: [address] [place] [address] Performed By: #### 5 8410-2 ####[facility] [id number] [place] [address] [place] Hematocrit (Bld) [Volume fraction] 44.7 % Normal 36.0-46.0 [facility] Comment on above: Order Comment: Speci men Type: BLOOD SPECIMENOrdering Facility: [facility] Address: [address] [place] [address] Performed By: #### 5 8410-2 ####[facility] [id number] [place] [address] [place] Hemoglobin (Bld) [Mass/Vol] 14.6 g/dL Normal 11.5-15.5 [facility] Comment on above: Order Comment: Speci men Type: BLOOD SPECIMENOrdering Facility: [facility] Address: [address] [place] [address] Performed By: #### 5 8410-2 ####[facility] [id number] [place] [address] [place] MCH (RBC) [Entitic mass] 29.9 pg Normal 26.0-34.0 [facility] Comment on above: Order Comment: Speci men Type: BLOOD SPECIMENOrdering Facility: [facility] Address: [address] [place] [address] Performed By: #### 5 8410-2 ####[facility] [id number] [place] [address] [place] MCHC (RBC) [Mass/Vol] 32.7 g/dL Normal 30.5-36.0 [facility] Comment on above: Order Comment: Speci men Type: BLOOD SPECIMENOrdering Facility: [facility] Address: [address] [place] [address] Performed By: #### 5 8410-2 ####[facility] [id number] [place] [address] [place] MCV (RBC) [Entitic vol] 91.6 fL Normal 80.0-100.0 [facility] Comment on above: Order Comment: Speci men Type: BLOOD SPECIMENOrdering Facility: [facility] Address: [address] [place] [address] Performed By: #### 5 8410-2 ####[facility] [id number] [place] [address] [place] Nucleated RBC (Bld) [#/Vol] 10*3/uL Normal <0.01 [facility] Comment on above: Order Comment: Speci men Type: BLOOD SPECIMENOrdering Facility: [facility] Address: [address] [place] [address] Performed By: #### 5 8410-2 ####[facility] [id number] [place] [address] [place] Platelet mean volume (Bld) [Entitic vol] 11.3 fL Normal 9.0-12.7 [facility] [facility] Comment on above: Order Comment: Speci men Type: BLOOD SPECIMENOrdering Facility: [facility] Address: [address] [place] [address] Performed By: #### 5 8410-2 ####[facility] [id number] [place] [address] [place] Platelets (Bld) [#/Vol] 244 10*3/uL Normal 150-400 [facility] Comment on above: Order Comment: Speci men Type: BLOOD SPECIMENOrdering Facility: [facility] Address: [address] [place] [address] Performed By: #### 5 8410-2 ####[facility] [id number] [place] [address] [place] RBC (Bld) [#/Vol] 4.88 10*6/uL Normal 3.90-5.20 [facility] Comment on above: Order Comment: Speci men Type: BLOOD SPECIMENOrdering Facility: [facility] Address: [address] [place] [address] Performed By: #### 5 8410-2 ####[facility]CL[facility] [id number] [place] [address] [place] WBC (Bld) [#/Vol] 6.04 10*3/uL Normal 3.70-11.00 [facility] Comment on above: Order Comment: Speci men Type: BLOOD SPECIMENOrdering Facility: [facility] Address: [address] [place] [address] Performed By: #### 5 8410-2 ####[facility] LABCL[facility] [id number] [address] [place] CNOVon 06-06-2023 [facility] N[facility] ANN ([id number]) 1970 F NFR Date Time Provider Department 06/06/23 10:20 AM SÁNCHEZ PELLETIER FAMPWS During your visit today, we recorded the following information about you: Pulse Respiration Blood pressure Weight 60/minute 16/minute 102/78 84.6 kg Sánchez Pelletier APRN.EVALUATION MANAGER 06/06/2023 12:10 PM Signed Chief Complaint Patient presents with: Acute Visit: Lightheaded, shaky, headaches x 1 month, has checked blood sugars and they run around 60-70, feels like Blood sugar related. Skin tag on back. HPI Ning Pierson Marissa is a 53 year old female who presents here today for Above Complaints.. Currently: Had weight loss surgery about a year ago. Has lost weight but feels like she's at a standstill with her weight loss right now. Concern for low blood sugar. Occasionally will feel lightheaded and achy. Has checked her blood sugar at her friend's house and has been in the 60's-70's. Has had headaches as well. Typically eating improves her sx. Eating-breakfast, lunch, dinner. Tries to eat cheese sticks in between for snacks. Knows she is dehydrated-just can't get enough water in because she will get stomach ache because it gets so full. Tries to get protein but probably doesn't get enough. Has skin tag in her right armpit that she would like to have removed as she is getting in a month and would show with her dress. Past medical history, appointments, medications, allergies reviewed. Previous Medical History PAST MEDICAL HISTORY Diagnosis Date Abdominal pain 02/15/2016 Abdominal pain, epigastric Anxiety state, unspecified Aortic aneurysm (HCC) ascending thoracic Asthma Calcaneal spur 05/24/2011 Carpal tunnel syndrome, right 05/2013 moderate Colon polyps Depressive disorder, not elsewhere classified Diaphragmatic hernia without mention of obstruction or gangrene DVT (deep venous thrombosis) (HCC) post foot surgery, x 2 interval Endometriosis ? HX not confirmed Fibromyalgia muscle pain GERD (gastroesophageal reflux disease) Hayfever 10/04/2010 HSV (herpes simplex virus) infection Hypercholesteremia Hypertension 01/2017 Impaired fasting glucose 08/2013 5.7% A1C Mild intermittent asthma without complication 10/27/2019 NNEKA (obstructive sleep apnea) 10/27/2019 Patellofemoral disorder 03/09/2009 PONV (postoperative nausea and vomiting) 03/17/2015 PTSD (post-traumatic stress disorder) per counseling center rheumatoid arthritis Right carpal tunnel syndrome 06/30/2013 Right hand paresthesia 04/28/2013 Seizures (HCC) Snoring Temporomandibular joint disorders, unspecified Toenail deformity 04/28/2013 Trigger middle finger of right hand 12/15/2014 Trigger ring finger of right hand 12/15/2014 Vitamin D deficiency 03/2013 Previous Surgical History PAST SURGICAL HISTORY Procedure Laterality Date CARPAL TUNNEL 07/2013 right, Dr. Draper DELIVERY ONLY 1990 , low cervical COLONOSCOPY 08/11/2014 normal, repeat in 5 years COLONOSCOPY FLX DX W/COLLJ SPEC WHEN PFRMD 06/24/2004 Colonoscopy/Dr. Cash COLONOSCOPY FLX DX W/COLLJ SPEC WHEN PFRMD 11/23/2017 Colonoscopy COLONOSCOPY W/BIOPSY SINGLE/MULTIPLE 05/04/2010 EGD EGD 08/11/2014 mild chronic gastritis EGD TRANSORAL BIOPSY SINGLE/MULTIPLE 05/04/2010 ESOPHAGOGASTRODUODENOSC OPY TRANSORAL DIAGNOSTIC 11/23/2017 EGD ESOPHAGOGASTRODUODENOSC OPY TRANSORAL DIAGNOSTIC 05/01/2019 EGD GASTRIC BYPASS HX 05/26/2022 INCISE FINGER TENDON SHEATH Right 03/23/2015 Right middle trigger finger release LAPAROSCOPIC TUBAL LIGATION/RING/CLIP 2012 alessandro elliott vesicouterine adhesions LAPAROSCOPY DIAGNOSTIC 2016 extensive KEVYN, severe LAPS SURG CHOLECYSTECTOMY W/CHOLANGIOGRAPHY 05/02/2006 LAPS W/VAG HYSTERECT 250 GM/ANDRMVL TUBEAND/OVARIES 2013 lavh bilateral salpingectomy, scar tissue LIDOCAINE IV treatments-Mohit Duran PAST SURGICAL HISTORY OF 01/13/2006 Bilateral Breast Reduction PAST SURGICAL HISTORY OF 06/14/2011 left foot for plantar fasciitis REVISE MEDIAN N/CARPAL TUNNEL SURG Left 03/22/2022 Left carpal tunnel release and injection left shoulder S CATH ABLATION THERMACHOICE 2013 uterine ablation Family History FAMILY HISTORY Problem Relation Age of Onset Hypertension Mother Lipids Mother Alcohol/Drug Mother Allergies Mother Alcohol/Drug Father Thyroid Sister other (fibromyalgia) Sister other (brain) Sister surgery brain too big for her skull (plate) Blindness Sister Alcohol/Drug Brother Emphysema Maternal Grandmother Emphysema Maternal Grandfather Heart Paternal Grandmother Anesthesia Problems No Family History Patient Allergies ALLERGIES Allergen Reactions Miconazole Itching Milnacipran Mental Status Change, Other: See Comments [place] weird. Rivaroxaban Other: See Comments, GI Upset Taste of blood in m (more content not included)... Normal [facility] CRP SerPl-mCncon 06-06-2023 CRP [Mass/Vol] 0.5 mg/dL Normal <0.9 [facility] Comment on above: Order Comment: Speci men Type: BLOOD SPECIMENOrdering Facility: [facility] Address: [address] [place] [address] Performed By: #### 2 4323-8, 2276, , 1987-07 ####[facility] [id number] [address] [address] [place] Comprehensive metabolic 2000 panelon 06-06-2023 Albumin [Mass/Vol] 4.0 g/dL Normal 3.9-4.9 [facility] Comment on above: Order Comment: Speci men Type: BLOOD SPECIMENOrdering Facility: [facility] Address: [address] [place] [address] Performed By: #### 2 4323-8, 6-4, 55143-9, 1987-07 ####[facility] [id number] [place] [id number] [place] ALP [Catalytic activity/Vol] 133 U/L High 34-123 [facility] Comment on above: Order Comment: Speci men Type: BLOOD SPECIMENOrdering Facility: [facility] Address: [address] [place] [address] Performed By: #### 2 4323-8, 6-4, , 1987-07 ####[facility] [id number] [place] [id number] [place] ALT [Catalytic activity/Vol] 40 U/L High 7-38 [facility] Comment on above: Order Comment: Speci men Type: BLOOD SPECIMENOrdering Facility: [facility] Address: [address] [place], [place] [address] Performed By: #### 2 4323-8, 2275-4, , 1987-07 ####[facility] [id number] [place] [id number] [place] Anion gap [Moles/Vol] 9 mmol/L Normal 9-18 [facility] Comment on above: Order Comment: Speci men Type: BLOOD SPECIMENOrdering Facility: [facility] Address: [address] [place] [address] Performed By: #### 2 4323-8, 2275-06, , 1987-07 ####[facility] [id number] [address] [address] [place] AST [Catalytic activity/Vol] 38 U/L High 13-35 [facility] Comment on above: Order Comment: Speci men Type: BLOOD SPECIMENOrdering Facility: [facility] Address: [address] [place] [address] Performed By: #### 2 4323-8, 2275-4, , 1987-07 ####[facility] [id number] [place] [id number] [place] Bilirubin [Mass/Vol] 0.4 mg/dL Normal 0.2-1.3 [facility] Comment on above: Order Comment: Speci men Type: BLOOD SPECIMENOrdering Facility: [facility] Address: [address] [place] [address] Performed By: #### 2 4323-8, 2275-4, , 1987-07 ####[facility] [id number] [place] [id number] [place] Calcium [Mass/Vol] 9.4 mg/dL Normal 8.5-10.2 [facility] Comment on above: Order Comment: Speci men Type: BLOOD SPECIMENOrdering Facility: [facility] Address: [address] [place], [place] [address] Performed By: #### 2 4323-8, 2275-4, , 1987-07 ####[facility] [id number] [place] [id number] [place] Chloride [Moles/Vol] 104 mmol/L Normal 97-105 [facility] Comment on above: Order Comment: Speci men Type: BLOOD SPECIMENOrdering Facility: [facility] Address: [address] [place], [place] [address] Performed By: #### 2 4323-8, 2275-06, , 1987-07 ####[facility]CL[facility] [id number] [facility] [place] [id number] [place] CO2 [Moles/Vol] 27 mmol/L Normal 22-30 [facility] Comment on above: Order Comment: Speci men Type: BLOOD SPECIMENOrdering Facility: [facility] Address: [address] [place] [address] Performed By: #### 2 4323-8, 2275-06, , 1987-07 ####[facility] [id number] [place] [address] [place] Creatinine [Mass/Vol] 0.72 mg/dL Normal 0.58-0.96 [facility] Comment on above: Order Comment: Speci men Type: BLOOD SPECIMENOrdering Facility: [facility] Address: [address] [place] [address] Performed By: #### 2 4323-8, 2275-06, , 1987-07 ####[facility] [id number] [place] [address] [place] Creatinine and Glomerular filtration rate.predicted panel (S/P/Bld) 101 mL/min/1.73m??? Normal >=60 [facility] Comment on above: Order Comment: Speci men Type: BLOOD SPECIMENOrdering Facility: [facility] Address: [address] [place] [address] Result Comment: Cris mated Glomerular Filtration Rate (eGFR) is calculated using the 2020 CKD-EPI creatinine equation. This equation utilizes serum creatinine, sex, and age as parameters. The creatinine assay has traceable calibration to isotope dilution-mass spectrometry. Refer to KDIGO guidelines for clinical interpretation. In patients with unstable renal function, e.g. those with acute kidney injury, the eGFR may not accurately reflect actual GFR. Performed By: #### 2 4323-8, 2275-06, , 1987-07 ####[facility] [id number] [address] [address] [place] Glucose [Mass/Vol] 78 mg/dL Normal 74-99 [facility] Comment on above: Order Comment: Speci men Type: BLOOD SPECIMENOrdering Facility: [facility] Address: [address] [place], [place] [id number] Result Comment: The [place] [employer] (ADA) provides guidance for cutoff values for fasting glucose and random glucose. The ADA defines fasting as no caloric intake for at least 8 hours. Fasting plasma glucose results between 100 to 125 mg/dL indicate increased risk for diabetes (prediabetes). Fasting plasma glucose results greater than or equal to 126 mg/dL meet the criteria for diagnosis of diabetes. In the absence of unequivocal hyperglycemia, results should be confirmed by repeat testing. In a patient with classic symptoms of hyperglycemia or hyperglycemic crisis, random plasma glucose results greater than or equal to 200 mg/dL meet the criteria for diagnosis of diabetes. Reference: Standards of Medical Care in Diabetes 2016, [place] [employer]. Diabetes Care. 2016.39(Suppl 1). Performed By: #### 2 4323-8, 2276-4, 98454-1, 1987-07 ####[facility] [id number] [place] [address] [place] Potassium [Moles/Vol] 4.8 mmol/L Normal 3.7-5.1 [facility] Comment on above: Order Comment: Speci men Type: BLOOD SPECIMENOrdering Facility: [facility] Address: [address] [place] [address] Performed By: #### 2 4323-8, 2276-4, 64866-8, 1987-07 ####[facility] [id number] [place] [address] [place] Protein [Mass/Vol] 7.2 g/dL Normal 6.3-8.0 [facility] Comment on above: Order Comment: Speci men Type: BLOOD SPECIMENOrdering Facility: [facility] Address: [address] [place] [address] Performed By: #### 2 4323-8, 2275-06, , 1987-07 ####[facility] [id number] [place] [id number] [place] Sodium [Moles/Vol] 140 mmol/L Normal 136-144 [facility] Comment on above: Order Comment: Speci men Type: BLOOD SPECIMENOrdering Facility: [facility] Address: [address] [place] [address] Performed By: #### 2 4323-8, 2275-06, , 1987-07 ####[facility] [id number] [place] [address] [place] Urea nitrogen [Mass/Vol] 12 mg/dL Normal 7-21 [facility] Comment on above: Order Comment: Speci men Type: BLOOD SPECIMENOrdering Facility: [facility] Address: [address] [place] [address] Performed By: #### 2 4323-8, 2275-06, , 1987-07 ####[facility] [id number] [place] [address] [place] Ferritin SerPl-mCncon 2023 Ferritin [Mass/Vol] 105.0 ng/mL Normal 14.7-205.1 [facility] Comment on above: Order Comment: Speci men Type: BLOOD SPECIMENOrdering Facility: [facility] Address: [address] [place] [address] Performed By: #### 2 4323-8, 4, , 1987-07 ####[facility] [id number] [place] [id number] [place] Insulin SerPl-aCncon 024 Insulin Qn 3.7 u[IU]/mL Normal 3.0-25.0 [facility] Comment on above: Order Comment: Speci men Type: BLOOD SPECIMENOrdering Facility: [facility] Address: [address] [place] [address] Performed By: #### 2 0448-7 ####[facility] [id number] [place] [address] [place] Iron and Iron binding capaci ty panelon 06-06-2023 Iron [Mass/Vol] 86 ug/dL Normal 41-186 [facility] Comment on above: Order Comment: Speci men Type: BLOOD SPECIMENOrdering Facility: [facility] Address: [address] [place] [address] Performed By: #### 2 4323-8, 2276-4, 07889-3, 1987-07 ####[facility] [id number] [address] STATES [facility] Iron binding capacity [Mass/Vol] 356 ug/dL Normal 232-386 [facility] Comment on above: Order Comment: Speci men Type: BLOOD SPECIMENOrdering Facility: [facility] Address: [address] [place] [address] Performed By: #### 2 4323-8, 6-4, 97873-0, 1987-07 ####[facility] [id number] [address] STATES OF [facility] Iron/TIBC [Molar ratio] 24.2 % Normal 15.0-57.0 [facility] Comment on above: Order Comment: Speci men Type: BLOOD SPECIMENOrdering Facility: [facility] Address: [address] [place] [address] Performed By: #### 2 4323-8, 2276-4, 84411-2, 1987-07 ####[facility] [id number] [place] [id number] [place] CNOVon 2023 CNOV Office Visit ([facility] ) NING ANN ([id number]) 1970 F NFR Date Time Provider Department 05/22/23 10:30 AM AGAPITO GONZALEZ [facility] During your visit today, we recorded the following information about you: Temperature Pulse Respiration Blood pressure 97.4 degrees 62/minute 20/minute 134/86 Weight 85 kg Agapito Gonzalez PA-C 2023 11:05 AM Signed This note was created using KontronriMinggl. Subjective Ning Ann is a 53 year old female. HPI Patient presents with a chief complaint of left ear pain. She states she had COVID at the beginning of May. She still has sinus pressure and congestion and her ear has been popping and bothering her. No drainage out of her ear. Denies chest pain. She states she is still coughing and felt a little wheezy this morning. No vomiting or diarrhea. She has been using saline spray [id number]. Review of Systems Constitutional: Negative. HENT: Positive for congestion, ear pain, sinus pressure and sinus pain. Negative for ear discharge and sore throat. Respiratory: Positive for cough and wheezing. Cardiovascular: Negative. Gastrointestinal: Negative. Genitourinary: Negative. Musculoskeletal: Negative. All other systems reviewed and are negative. PAST MEDICAL HISTORY Diagnosis Date Abdominal pain 02/15/2016 Abdominal pain, epigastric Anxiety state, unspecified Aortic aneurysm (HCC) ascending thoracic Asthma Calcaneal spur 05/24/2011 Carpal tunnel syndrome, right 05/2013 moderate Colon polyps Depressive disorder, not elsewhere classified Diaphragmatic hernia without mention of obstruction or gangrene DVT (deep venous thrombosis) (HCC) post foot surgery, x 2 interval Endometriosis ? HX not confirmed Fibromyalgia muscle pain GERD (gastroesophageal reflux disease) Hayfever 10/04/2010 HSV (herpes simplex virus) infection Hypercholesteremia Hypertension 01/2017 Impaired fasting glucose 08/2013 5.7% A1C Mild intermittent asthma without complication 10/27/2019 NNEKA (obstructive sleep apnea) 10/27/2019 Patellofemoral disorder 03/09/2009 PONV (postoperative nausea and vomiting) 03/17/2015 PTSD (post-traumatic stress disorder) per counseling center rheumatoid arthritis Right carpal tunnel syndrome 06/30/2013 Right hand paresthesia 04/28/2013 Seizures (HCC) Snoring Temporomandibular joint disorders, unspecified Toenail deformity 04/28/2013 Trigger middle finger of right hand 12/15/2014 Trigger ring finger of right hand 12/15/2014 Vitamin D deficiency 03/2013 Current Outpatient Medications Medication Sig Dispense Refill ZINC ACETATE ORAL Take 1 tablet by mouth once daily. Ascorbic Acid (VITAMIN C) 1,000 mg tablet Take 1,000 mg by mouth once daily. no115/iron/folic acid ( 19 ORAL) Take 1 tablet by mouth once daily. cetirizine (ZYRTEC) 10 mg tablet Take 1 tablet by mouth once daily. 30 tablet 2 valACYclovir (VALTREX) 500 mg tablet Take 1 tablet by mouth two times a day. 60 tablet 5 rOPINIRole (REQUIP) 0.5 mg tablet Take 1-2 tablets by mouth at bedtime as needed (restless legs). 60 tablet 5 escitalopram oxalate (LEXAPRO) 5 mg tablet Take 1 tablet by mouth daily at bedtime. For mood [address] (PROTONIX) 40 mg tablet Take 1 tablet by mouth once daily. 180 tablet 0 Blood Pressure Monitor 1 Each as directed. Blood pressure KIT, Dx: HTN 1 Each 0 ondansetron orally disintegrating (ZOFRAN ODT) 4 mg disintegrating tablet Take 1 tablet by mouth every 8 hours as needed for nausea/vomiting. 20 tablet 1 ipratropium-albuterol (DUONEB) 0.5 mg-3 mg(2.5 mg base)/3 mL nebu Inhale 3 mL as instructed every 4 hours as needed for wheezing/shortness of breath. 3 mL 3 Nebulizers 1 Each as directed. Dx: wheezing, recurrent acute bronchitis, 1 Each 0 Nebulizer Accessories misc 1 Each as directed. Dx: wheezing, recurrent acute bronchitis, Tubing and mask for nebulizer 1 Each 0 amoxicillin-clavulanate potassium (AUGMENTIN) 875-125 mg per tablet Take 1 tablet by mouth two times a day for 7 days. 14 tablet 0 fluticasone (FLONASE) 50 mcg/actuation nasal spray Use 2 Sprays in each nostril once daily. Rinse mouth after use. 1 Each 0 fluticasone (FLOVENT HFA) 110 mcg/actuation inhaler Inhale 1 Puff as instructed twice daily. Rinse mouth after using. 12 g 5 omeprazole (PRILOSEC) 40 mg capsule Take 1 capsule by mouth twice daily. Open capsules 180 capsule 2 maalox-lidocaine (GI COCKTAIL) 2:1 liqd Take 5 mL by mouth every 4 hours as needed for up to 30 doses. (Patient not taking: Reported on 2023) 30 mL 0 0.9 % sodium chloride (NACL 0.9%) 0.9% solp Please administer over 2 hours. (Patient not taking: Reported on 2023) 1000 mL 0 oxyCODONE IR (ROXICODONE) 5 mg immediate release tablet Take 1 tablet by mouth every 6 hours as needed for pain. (Patient not taking: Reported on 04/05/2023) 8 tablet (more content not included)... Normal [facility] CNOVon 04-13-2023 CNOV Office Visit ([facility] ) MAYELAROSANGELANING Kenna ([id number]) 1970 F NFR Date Time Provider Department 04/13/23 9:30 AM LIAM ALANIS [facility] During your visit today, we recorded the following information about you: Temperature Pulse Respiration Blood pressure 97 degrees 63/minute 18/minute 144/84 Weight 86.8 kg Liam Alanis PA 04/13/2023 10:22 AM Signed This note was created using Synchris. Nikole Whytee Kenna Marissa is a 52 year old female. HPI 52-year-old female presents for foot pain. Patient has been having right foot pain for the past 2 days. She stepped wrong on her foot and has been having pain over the right lateral foot since then. She states that when she stepped down she kind of twisted her foot and felt a sharp pain in it. She reports pain is worse with ambulation. No numbness, occasionally has a little bit of tingling in her toes. She denies any fevers. No other injury or complaints. No history of surgery on this foot. PAST MEDICAL HISTORY Diagnosis Date Abdominal pain 02/15/2016 Abdominal pain, epigastric Anxiety state, unspecified Aortic aneurysm (HCC) ascending thoracic Asthma Calcaneal spur 05/24/2011 Carpal tunnel syndrome, right 05/2013 moderate Colon polyps Depressive disorder, not elsewhere classified Diaphragmatic hernia without mention of obstruction or gangrene DVT (deep venous thrombosis) (HCC) post foot surgery, x 2 interval Endometriosis ? HX not confirmed Fibromyalgia muscle pain GERD (gastroesophageal reflux disease) Hayfever 10/04/2010 HSV (herpes simplex virus) infection Hypercholesteremia Hypertension 01/2017 Impaired fasting glucose 08/2013 5.7% A1C Mild intermittent asthma without complication 10/27/2019 NNEKA (obstructive sleep apnea) 10/27/2019 Patellofemoral disorder 03/09/2009 PONV (postoperative nausea and vomiting) 03/17/2015 PTSD (post-traumatic stress disorder) per counseling center rheumatoid arthritis Right carpal tunnel syndrome 06/30/2013 Right hand paresthesia 04/28/2013 Seizures ([facility]) Snoring Temporomandibular joint disorders, unspecified Toenail deformity 04/28/2013 Trigger middle finger of right hand 12/15/2014 Trigger ring finger of right hand 12/15/2014 Vitamin D deficiency 03/2013 PAST SURGICAL HISTORY Procedure Laterality Date CARPAL TUNNEL 07/2013 right, Dr. Draper DELIVERY ONLY 1990 , low cervical COLONOSCOPY 08/11/2014 normal, repeat in 5 years COLONOSCOPY FLX DX W/COLLJ SPEC WHEN PFRMD 06/24/2004 Colonoscopy/Dr. Cash COLONOSCOPY FLX DX W/COLLJ SPEC WHEN PFRMD 11/23/2017 Colonoscopy COLONOSCOPY W/BIOPSY SINGLE/MULTIPLE 05/04/2010 EGD EGD 08/11/2014 mild chronic gastritis EGD TRANSORAL BIOPSY SINGLE/MULTIPLE 05/04/2010 ESOPHAGOGASTRODUODENOSC OPY TRANSORAL DIAGNOSTIC 11/23/2017 EGD ESOPHAGOGASTRODUODENOSC OPY TRANSORAL DIAGNOSTIC 05/01/2019 EGD GASTRIC BYPASS HX 05/26/2022 INCISE FINGER TENDON SHEATH Right 03/23/2015 Right middle trigger finger release LAPAROSCOPIC TUBAL LIGATION/RING/CLIP 2012 alessandro elliott vesicouterine adhesions LAPAROSCOPY DIAGNOSTIC 2016 extensive KEVYN, severe LAPS SURG CHOLECYSTECTOMY W/CHOLANGIOGRAPHY 05/02/2006 LAPS W/VAG HYSTERECT 250 GM/ANDRMVL TUBEAND/OVARIES 2013 lav[facility] bilateral salpingectomy, scar tissue LIDOCAINE IV treatments-Mohit Duran PAST SURGICAL HISTORY OF 01/13/2006 Bilateral Breast Reduction PAST SURGICAL HISTORY OF 06/14/2011 left foot for plantar fasciitis REVISE MEDIAN N/CARPAL TUNNEL SURG Left 03/22/2022 Left carpal tunnel release and injection left shoulder S CATH ABLATION THERMACHOICE 2012 uterine ablation ALLERGIES Miconazole, Milnacipran, Rivaroxaban, Morphine, Atorvastatin, Coumadin [Warfarin Sodium], Dilaudid [Hydromorphone (Bulk)], Lyrica [Pregabalin], and Prednisone MEDICATIONS cetirizine (ZYRTEC) 10 mg tablet Take 1 tablet by mouth once daily. valACYclovir (VALTREX) 500 mg tablet Take 1 tablet by mouth two times a day. rOPINIRole (REQUIP) 0.5 mg tablet Take 1-2 tablets by mouth at bedtime as needed (restless legs). escitalopram oxalate (LEXAPRO) 5 mg tablet Take 1 tablet by mouth daily at bedtime. For mood pantoprazole DR (PROTONIX) 40 mg tablet Take 1 tablet by mouth once daily. fluticasone (FLOVENT HFA) 110 mcg/actuation inhaler Inhale 1 Puff as instructed twice daily. Rinse mouth after using. omeprazole (PRILOSEC) 40 mg capsule Take 1 capsule by mouth twice daily. Open capsules maalox-lidocaine (GI COCKTAIL) 2:1 liqd Take 5 mL by mouth every 4 hours as needed for up to 30 doses. Blood Pressure Monitor 1 Each as directed. Blood pressure KIT, Dx: HTN 0.9 % sodium chloride (NACL 0.9%) 0.9% solp Please administer over 2 hours. ondansetron orally disintegrating (ZOFRAN ODT) 4 mg disintegrating tablet Take 1 tablet by mouth every 8 hours as needed for nausea/vomiting (more content not included)... Normal [facility] XR FOOT 3V AP/LAT/OBL RTon 0 04-13-2023 XR FOOT 3V AP/LAT/OBL RT * * *Final Report* * * DATE OF EXAM: Apr 13 2023 10:01AM WOX [id number] - XR FOOT 3V AP/LAT/OBL RT / PROCEDURE REASON: Foot pain, right * * * * Physician Interpretation * * * * EXAM TITLE: XR FOOT 3V AP/LAT/OBL RT EXAM DATE/TIME: 04/13/2023 10:01 AM COMPARISON: X-ray foot on 08/28/2019 CLINICAL INDICATION/HISTORY: Foot pain at the fifth metatarsal bone TECHNIQUE: AP, lateral and oblique views of the right foot are presented. FINDINGS: No acute fractures or subluxations are noted. There are degenerative changes in the first metatarsophalangeal joint. Achilles/calcaneal enthesopathy noted. The joint spaces are well preserved. The mineralization of the bones is normal. There is no significant soft tissue swelling. IMPRESSION: No acute fractures demonstrated in the right foot. Degenerative changes as described above. Plant Tour Guide: LEON Transcribe Date/Time: Apr 13 2023 10:07A Dictated by : ROSE MARY SULLIVAN MD This examination was interpreted and the report reviewed and electronically signed by: ROSE MARY SULLIVAN MD on Apr 13 2023 10:13AM EST [id number] Normal [facility] XR FOOT GENERAL 3V AP/LAT/OB L RIGHTon 04-13-2023 [facility] XR Foot - right AP and Later al and obliqueon 04-13-2023 IMPRESSION: No acute fractures demonstrated in the right foot. Degenerative changes as described above. Plant Tour Guide: [facility] Transcribe Date/Time: Apr 13 2023 10:07A Dictated by : ROSE MARY SULLIVAN MD This examination was interpreted and the report reviewed and electronically signed by: ROSE MARY SULLIVAN MD on Apr 13 2023 10:13AM EST DIVISION OF RADIOLOGY * * *Final Report* * * DATE OF EXAM: Apr 13 2023 10:01AM WOX [id number] - XR FOOT 3V AP/LAT/OBL RT / PROCEDURE REASON: Foot pain, right * * * * Physician Interpretation * * * * EXAM TITLE: XR FOOT 3V AP/LAT/OBL RT EXAM DATE/TIME: 04/13/2023 10:01 AM COMPARISON: X-ray foot on 08/28/2019 CLINICAL INDICATION/HISTORY: Foot pain at the fifth metatarsal bone TECHNIQUE: AP, lateral and oblique views of the right foot are presented. FINDINGS: No acute fractures or subluxations are noted. There are degenerative changes in the first metatarsophalangeal joint. Achilles/calcaneal enthesopathy noted. The joint spaces are well preserved. The mineralization of the bones is normal. There is no significant soft tissue swelling. DIVISION OF RADIOLOGY Provider, Kenan De La Garza [place] - 04/13/2023 * * *Final Report* * * DATE OF EXAM: Apr 13 2023 10:01AM WOX [id number] - XR FOOT 3V AP/LAT/OBL RT / PROCEDURE REASON: Foot pain, right * * * * Physician Interpretation * * * * EXAM TITLE: XR FOOT 3V AP/LAT/OBL RT EXAM DATE/TIME: 04/13/2023 10:01 AM COMPARISON: X-ray foot on 08/28/2019 CLINICAL INDICATION/HISTORY: Foot pain at the fifth metatarsal bone TECHNIQUE: AP, lateral and oblique views of the right foot are presented. FINDINGS: No acute fractures or subluxations are noted. There are degenerative changes in the first metatarsophalangeal joint. Achilles/calcaneal enthesopathy noted. The joint spaces are well preserved. The mineralization of the bones is normal. There is no significant soft tissue swelling. IMPRESSION IMPRESSION: No acute fractures demonstrated in the right foot. Degenerative changes as described above. Plant Tour Guide: [facility] Transcribe Date/Time: Apr 13 2023 10:07A Dictated by : ROSE MARY SULLIVAN MD This examination was interpreted and the report reviewed and electronically signed by: ROSE MARY SULLIVAN MD on Apr 13 2023 10:13AM [facility] Radiology Study observation (narrative) [facility] XR Foot - right AP and Later al and obliqueOrdered By: Ccf Provider on 04-13-2023 [facility] CNOVon 04-05-2023 CNOV Office Visit (UCWSTR ) NING ANN ([id number]) 1970 F NFR Date Time Provider Department 04/05/23 10:30 AM JESSI LUU During your visit today, we recorded the following information about you: Temperature Pulse Respiration Blood pressure 97.5 degrees 68/minute 16/minute 128/64 Weight 86.8 kg Jessi Luu APRN.EVALUATION MANAGER 04/05/2023 10:51 AM Signed This note was created using Kontronriter. Subjective Ning Ann is a 52 year old female. 52 year old female with PMH fibromyalgia, RLS, HTN, ashtma, GERD, IBS, anxiety, and PTSD presents for illness. 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 Has used Tylenol (states history of bypass surgery and cannot take NSAIDs) The history is provided by the patient. No speech and language assistant was used. Cough This is a new problem. The current episode started 2 days ago. The problem occurs constantly. The problem has not changed since onset.The cough is Non-productive. There has been no fever. Associated symptoms include chills, ear congestion, ear pain, headaches, rhinorrhea and myalgias. Pertinent negatives include no chest pain, no sweats, no weight loss, no sore throat, no shortness of breath, no wheezing and no eye redness. Treatments tried: Tylenol. The treatment provided no relief. She is not a smoker. Her past medical history does not include bronchitis, pneumonia, bronchiectasis, COPD, emphysema or asthma. PAST MEDICAL HISTORY Diagnosis Date Abdominal pain 02/15/2016 Abdominal pain, epigastric Anxiety state, unspecified Aortic aneurysm (HCC) ascending thoracic Asthma Calcaneal spur 05/24/2011 Carpal tunnel syndrome, right 05/2013 moderate Colon polyps Depressive disorder, not elsewhere classified Diaphragmatic hernia without mention of obstruction or gangrene DVT (deep venous thrombosis) (HCC) post foot surgery, x 2 interval Endometriosis ? HX not confirmed Fibromyalgia muscle pain GERD (gastroesophageal reflux disease) Hayfever 10/04/2010 HSV (herpes simplex virus) infection Hypercholesteremia Hypertension 01/2017 Impaired fasting glucose 08/2013 5.7% A1C Mild intermittent asthma without complication 10/27/2019 NNEKA (obstructive sleep apnea) 10/27/2019 Patellofemoral disorder 03/09/2009 PONV (postoperative nausea and vomiting) 03/17/2015 PTSD (post-traumatic stress disorder) per counseling center rheumatoid arthritis Right carpal tunnel syndrome 06/30/2013 Right hand paresthesia 04/28/2013 Seizures (HCC) Snoring Temporomandibular joint disorders, unspecified Toenail deformity 04/28/2013 Trigger middle finger of right hand 12/15/2014 Trigger ring finger of right hand 12/15/2014 Vitamin D deficiency 03/2013 PAST SURGICAL HISTORY Procedure Laterality Date CARPAL TUNNEL 07/2013 right, Dr. Draper DELIVERY ONLY 1990 , low cervical COLONOSCOPY 08/11/2014 normal, repeat in 5 years COLONOSCOPY FLX DX W/COLLJ SPEC WHEN PFRMD 06/24/2004 Colonoscopy/Dr. Cash COLONOSCOPY FLX DX W/COLLJ SPEC WHEN PFRMD 11/23/2017 Colonoscopy COLONOSCOPY W/BIOPSY SINGLE/MULTIPLE 05/04/2010 EGD EGD 08/11/2014 mild chronic gastritis EGD TRANSORAL BIOPSY SINGLE/MULTIPLE 05/04/2010 ESOPHAGOGASTRODUODENOSC OPY TRANSORAL DIAGNOSTIC 11/23/2017 EGD ESOPHAGOGASTRODUODENOSC OPY TRANSORAL DIAGNOSTIC 05/01/2019 EGD GASTRIC BYPASS HX 05/26/2022 INCISE FINGER TENDON SHEATH Right 03/23/2015 Right middle trigger finger release LAPAROSCOPIC TUBAL LIGATION/RING/CLIP 2012 alessandro elliott vesicouterine adhesions LAPAROSCOPY DIAGNOSTIC 2016 extensive KEVYN, severe LAPS SURG CHOLECYSTECTOMY W/CHOLANGIOGRAPHY 05/02/2006 LAPS W/VAG HYSTERECT 250 GM/ANDRMVL TUBEAND/OVARIES 2014 [facility] bilateral salpingectomy, scar tissue LIDOCAINE IV treatments-Mohit Duran PAST SURGICAL HISTORY OF 01/13/2006 Bilateral Breast Reduction PAST SURGICAL HISTORY OF 06/14/2011 left foot for plantar fasciitis REVISE MEDIAN N/CARPAL TUNNEL SURG Left 03/22/2022 Left carpal tunnel release and injection left shoulder S CATH ABLATION THERMACHOICE 2012 uterine ablation ALLERGIES Miconazole, Milnacipran, Rivaroxaban, Morphine, Atorvastatin, Coumadin [Warfarin Sodium], Dilaudid [Hydromorphone (Bulk)], Lyrica [Pregabalin], and Prednisone MEDICATIONS cetirizine (ZYRTEC) 10 mg tablet Take 1 tablet by mouth once daily. valACYclovir (VALTREX) 500 mg tablet Take 1 tablet by mouth two times a day. rOPINIRole (REQUIP) 0.5 mg tablet Take 1-2 tablets by mouth at bedtime as needed (restless legs). escitalopram oxalate (LEXAPRO) 5 mg tablet Take 1 tablet b (more content not included)... Normal [facility] COVID AND INFLUENZA A/B AND RSV NAAT, ROUTINEon 04-05-2023 SARS-CoV-2 (COVID-19) RNA AYAZ+probe Ql (Unsp spec) COVID 19 RESULT: Not detected The method used is RT-PCR or an equivalent NAAT method. Reference Range (the expected result in uninfected individuals): Not detected INFLUENZA A PCR: Not detected INFLUENZA B PCR: Not detected RSV PCR: Not detected Normal [facility] Comment on above: Performed By: #### C VFLRS ####[facility] LABCLIA [id number] [address] OF [facility] ED NOTEon 02-25-2023 ED NOTE HNO ID: [id number] Author: Ashley Land, RN Service: Nursing Author Type: Registered Nurse Type: ED Notes Filed: 02/25/2023 7:25 PM Note Text: Pt verbalizes understanding of discharge instructions. Pt able to ambulate out of ED. Normal [facility] ED NOTE HNO ID: [id number] Author: Ashley Land, RN Service: Nursing Author Type: Registered Nurse Type: ED Notes Filed: 02/25/2023 3:55 PM Note Text: Pt reports body aches and cough since yesterday. Did covid home test this morning which was negative. Normal [facility] ED PROV NOTEon 02-25-2023 ED PROV NOTE HNO ID: [id number] Author: MARY FARFAN MD Service: Emergency Medicine Author Type: Physician Type: ED Provider Notes Filed: 03/21/2023 21:56 Note Text: ED Provider Note Patient Name: Ning Ann : 1970 SERVICE DATE: 02/25/23 History Patient presents with: Flu Like Symptoms Patient is a 52-year-old female presenting today with complaint of I do not feel well. Patient states that yesterday started getting myalgias as well as headaches. She also endorses a cough. She has mild congestion but a lot more mucus drainage and rhinorrhea. She denies any sick contacts. She did take a COVID test at home which was negative. She denies any shortness of breath. She does endorse decreased appetite as well as fatigue. She endorses some mild fevers and chills as well. She is here because she does not feel well and is looking to get some symptom relief as well as try to figure out what exactly she has. PAST MEDICAL HISTORY Diagnosis Date Abdominal pain 02/15/2016 Abdominal pain, epigastric Anxiety state, unspecified Aortic aneurysm (HCC) ascending thoracic Asthma Calcaneal spur 05/24/2011 Carpal tunnel syndrome, right 05/2013 moderate Colon polyps Depressive disorder, not elsewhere classified Diaphragmatic hernia without mention of obstruction or gangrene DVT (deep venous thrombosis) (HCC) post foot surgery, x 2 interval Endometriosis ? HX not confirmed Fibromyalgia muscle pain GERD (gastroesophageal reflux disease) Hayfever 10/04/2010 HSV (herpes simplex virus) infection Hypercholesteremia Hypertension 01/2017 Impaired fasting glucose 08/2013 5.7% A1C Mild intermittent asthma without complication 10/27/2019 NNEKA (obstructive sleep apnea) 10/27/2019 Patellofemoral disorder 03/09/2009 PONV (postoperative nausea and vomiting) 03/17/2015 PTSD (post-traumatic stress disorder) per counseling center rheumatoid arthritis Right carpal tunnel syndrome 06/30/2013 Right hand paresthesia 04/28/2013 Seizures (HCC) Snoring Temporomandibular joint disorders, unspecified Toenail deformity 04/28/2013 Trigger middle finger of right hand 12/15/2014 Trigger ring finger of right hand 12/15/2014 Vitamin D deficiency 03/2013 PAST SURGICAL HISTORY Procedure Laterality Date CARPAL TUNNEL 07/2013 right, Dr. Draper DELIVERY ONLY 1990 , low cervical COLONOSCOPY 08/11/2014 normal, repeat in 5 years COLONOSCOPY FLX DX W/COLLJ SPEC WHEN PFRMD 06/24/2004 Colonoscopy/Dr. Cash COLONOSCOPY FLX DX W/COLLJ SPEC WHEN PFRMD 11/23/2017 Colonoscopy COLONOSCOPY W/BIOPSY SINGLE/MULTIPLE 05/04/2010 EGD EGD 08/11/2014 mild chronic gastritis EGD TRANSORAL BIOPSY SINGLE/MULTIPLE 05/04/2010 ESOPHAGOGASTRODUODENOSC OPY TRANSORAL DIAGNOSTIC 11/23/2017 EGD ESOPHAGOGASTRODUODENOSC OPY TRANSORAL DIAGNOSTIC 05/01/2019 EGD GASTRIC BYPASS HX 05/26/2022 INCISE FINGER TENDON SHEATH Right 03/23/2015 Right middle trigger finger release LAPAROSCOPIC TUBAL LIGATION/RING/CLIP 2013 alessandro elliott vesicouterine adhesions LAPAROSCOPY DIAGNOSTIC 2016 extensive KEVYN, severe LAPS SURG CHOLECYSTECTOMY W/CHOLANGIOGRAPHY 05/02/2006 LAPS W/VAG HYSTERECT 250 GM/ANDRMVL TUBEAND/OVARIES 2014 [facility] bilateral salpingectomy, scar tissue LIDOCAINE IV treatments-Mohit Duran PAST SURGICAL HISTORY OF 01/13/2006 Bilateral Breast Reduction PAST SURGICAL HISTORY OF 06/14/2011 left foot for plantar fasciitis REVISE MEDIAN N/CARPAL TUNNEL SURG Left 03/22/2022 Left carpal tunnel release and injection left shoulder S CATH ABLATION THERMACHOICE 2012 uterine ablation FAMILY HISTORY Problem Relation Age of Onset Hypertension Mother Lipids Mother Alcohol/Drug Mother Allergies Mother Alcohol/Drug Father Thyroid Sister other (fibromyalgia) Sister other (brain) Sister surgery brain too big for her skull (plate) Blindness Sister Alcohol/Drug Brother Emphysema Maternal Grandmother Emphysema Maternal Grandfather Heart Paternal Grandmother Anesthesia Problems No Family History Social History Tobacco Use Smoking status: Never Smokeless tobacco: Never Vaping Use Vaping Use: Never used Substance and Sexual Activity Alcohol use: Not Currently Drug use: No Sexual activity: Yes Partners: Male control/protection: Vasectomy, Surgical Comment: Vaginal Hysterectomy ALLERGIES Allergen Reactions Miconazole Itching Milnacipran Mental Status Change, Other: See Comments [place] weird. Rivaroxaban Other: See Comments, GI Upset Taste of blood in mouth and muscle aches Morphine Shortness of Breath Atorvastatin Other: See Comments Leg aching and pain Coumadin [Warfarin * Other: See Comments headache,arm pain and back pain Dilaudid [Hydromorp* Other: See Comments Pain Lyrica [Pregabalin] Rash, Cough, Itching Prednisone Itching Review of Systems Constitutional: Positive for appetite change, chills, fa (more content not included)... Normal [facility] FLUABV+SARS-CoV-2+RSV Pnl Re sp AYAZ+probeon 02-25-2023 FLUABV+SARS-CoV-2+RSV Pnl Resp AYAZ+probe COVID 19 RESULT: Not detected The method used is RT-PCR or an equivalent NAAT method. Reference Range(the expected result in uninfected individuals): Not detected INFLUENZA A PCR: Detected INFLUENZA B PCR: Not detected RSV PCR: Not detected Abnormal [facility] Comment on above: Performed By: #### [id number] ####[facility] LABCLIA [id number] [place] [address] [facility] 12-14-2022 [facility] Telephone ([facility]) NING ANN ([id number]) 1970 F NFR Date Time Provider Department 12/14/22 PARVEEN SEN [facility] During your visit today, we recorded the following information about you: Parveen Sen APRN.[facility] 12/14/2022 7:21 AM Signed Please notify that covid/flu testing negative. Continue with plan of care as discussed during visit. Milagros Cruz LPN 12/14/2022 8:36 AM Signed Patient given results and verbalized understanding of instructions given. Milagros Cruz LPN Allergies As of Date: 12/14/2022 Noted Allergy Reaction MICONAZOLE 01/13/2004 9 - Itching MILNACIPRAN 07/19/2011 1 - Mental Status Change 14 - Other: See Comments Comments: [place] weird. RIVAROXABAN 12/02/2014 14 - Other: See Comments 8 - GI Upset Comments: Taste of blood in mouth and muscle aches MORPHINE 03/09/2009 12 - Shortness of Breath ATORVASTATIN 08/28/2018 14 - Other: See Comments Comments: Leg aching and pain COUMADIN (WARFARIN SODIUM) 07/19/2011 14 - Other: See Comments Comments: headache,arm pain and back pain DILAUDID (HYDROMORPHONE (BULK)) 03/17/2013 14 - Other: See Comments Comments: Pain LYRICA (PREGABALIN) 07/22/2018 2 - Rash 3 - Cough 9 - Itching PREDNISONE 12/27/2021 9 - Itching Date Reviewed: 12/13/2022 Reviewed by: Deanna Wallace MA - Fully Assessed Reason for Visit: Results [95] Prescriptions as of 12/14/2022 - amoxicillin-clavulanic acid (AUGMENTIN) 875-125 mg per tablet Take 1 tablet by mouth two times a day for 7 days. - pantoprazole DR (PROTONIX) 40 mg tablet Take 1 tablet by mouth once daily. - cetirizine (ZYRTEC) 10 mg tablet Take 1 tablet by mouth once daily. - fluticasone (FLOVENT HFA) 110 mcg/actuation inhaler Inhale 1 Puff as instructed twice daily. Rinse mouth after using. - omeprazole (PRILOSEC) 40 mg capsule Take 1 capsule by mouth twice daily. Open capsules - sucralfate (CARAFATE) 100 mg/mL suspension Take 10 mL by mouth four times daily. - maalox-lidocaine (GI COCKTAIL) 2:1 liqd Take 5 mL by mouth every 4 hours as needed for up to 30 doses. - rOPINIRole (REQUIP) 0.5 mg tablet Take 1-2 tablets by mouth at bedtime as needed (restless legs). - Blood Pressure Monitor 1 Each as directed. Blood pressure KIT, Dx: HTN - escitalopram oxalate (LEXAPRO) 5 mg tablet Take 1 tablet by mouth daily at bedtime. For mood - 0.9 % sodium chloride (NACL 0.9%) 0.9% solp Please administer over 2 hours. - ondansetron orally disintegrating (ZOFRAN ODT) 4 mg disintegrating tablet Take 1 tablet by mouth every 8 hours as needed for nausea/vomiting. - oxyCODONE IR (ROXICODONE) 5 mg immediate release tablet Take 1 tablet by mouth every 6 hours as needed for pain. - nxktyw-yegfdqzc-kkzjklp (CREON) 36,000-114,000- 180,000 unit delayed release capsule Take 3 capsules by mouth three times daily with meals. - valACYclovir (VALTREX) 500 mg tablet Take 1 tablet by mouth twice daily. - Magnesium Oxide 500 mg tab Take 1 tablet by mouth once daily. - Miscellaneous Medical Supply (BLOOD PRESSURE CUFF) 1 Each once daily. - cyclobenzaprine (FLEXERIL) 10 mg tablet Take 1 tablet by mouth three times daily as needed for muscle spasm. - triamcinolone acetonide (NASACORT) 55 mcg nasal inhaler Use 2 Sprays in the nose once daily. - cholecalciferol (VITAMIN D3) 50 mcg (2,000 unit) tablet Take 1 tablet by mouth once daily. - cyanocobalamin (VITAMIN B-12) 1,000 mcg tab Take 1 tablet by mouth once daily. - ipratropium-albuterol (DUONEB) 0.5 mg-3 mg(2.5 mg base)/3 mL nebu Inhale 3 mL as instructed every 4 hours as needed for wheezing/shortness of breath. - Nebulizers 1 Each as directed. Dx: wheezing, recurrent acute bronchitis, - Nebulizer Accessories misc 1 Each as directed. Dx: wheezing, recurrent acute bronchitis, Tubing and mask for nebulizer Problem List As Of Date 12/14/2022 Noted Resolved HYPERTROPHY OF BREAST [N62] 01/13/2004 05/18/2006 Endometriosis [617] 04/22/2014 Anxiety state [F41.1] Moderate single current episode of major depres* TM JOINT DISORDER, UNSPEC [M26.609] 05/18/2006 Unspecified Myalgia and Myositis [BGI8633] 11/12/2009 Other and unspecified hyperlipidemia [E78.5] 03/30/2005 Personal history of colonic polyps [Z86.010] 03/15/2006 07/01/2010 PAIN ABDOMEN( Right Upper Quadrant) [R10.11] 04/20/2006 05/18/2006 Hemorrhage of rectum and anus [K62.5] 03/17/2015 Abdominal Pain, Epigastric [R10.13] 11/12/2009 BILIARY DYSKINESIA [K82.8] 04/25/2006 03/17/2015 Obesity [E66.9] 05/18/2006 Other Malaise and Fatigue [R53.81, R53.83] 04/22/2007 11/12/2009 Acute bronchitis [J20.9] 07/13/2008 Contact Dermatitis and Other Eczema, due to Uns*07/13/2008 11/12/2009 Sinus Disorder [J34.9] 11/23/2008 11/12/2009 Patellofemoral disorder [M22.2X9] 03/09/2009 07/25/2016 Suicidal attempted 04/06/2009 Fibromyalgia [M79.7] 11/12/2009 IBS (irritable bowel syndrom (more content not included)... Normal [facility] CNOVon 12-13-2022 CNOV Office Visit (UCWSTR ) MARISSANING Kenna ([id number]) 1970 F NFR Date Time Provider Department 12/13/22 5:00 PM AGAPITO GONZALEZ WSTR During your visit today, we recorded the following information about you: Temperature Pulse Respiration Blood pressure 98.1 degrees 58/minute 18/minute 132/84 Weight 89.3 kg Agapito Gonzalez PA-C 12/13/2022 5:50 PM Signed This note was created using Synchris. Subjective Ninggregorio Ann is a 52 year old female. HPI Patient presents with sinus pressure, ear pressure and congestion for over a week. She was seen in the ER 2 days ago for dizziness and dehydration. She did feel better after 2 L of fluid there. Her labs were stable and unremarkable. She states she has not been able to eat much due to having a gastric bypass surgery in May. She states she has drank about 60 ounces of fluids today. She did start to cough today. She has not had a fever. 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 Review of Systems Constitutional: Positive for fatigue. HENT: Positive for congestion, ear pain, postnasal drip, sinus pressure and sinus pain. Negative for sore throat. Respiratory: Positive for cough. Negative for shortness of breath. Genitourinary: Negative. Musculoskeletal: Positive for myalgias. Neurological: Positive for headaches. All other systems reviewed and are negative. PAST MEDICAL HISTORY Diagnosis Date Abdominal pain 02/15/2016 Abdominal pain, epigastric Anxiety state, unspecified Aortic aneurysm (HCC) ascending thoracic Asthma Calcaneal spur 05/24/2011 Carpal tunnel syndrome, right 05/2013 moderate Colon polyps Depressive disorder, not elsewhere classified Diaphragmatic hernia without mention of obstruction or gangrene DVT (deep venous thrombosis) (HCC) post foot surgery, x 2 interval Endometriosis ? HX not confirmed Fibromyalgia muscle pain GERD (gastroesophageal reflux disease) Hayfever 10/04/2010 HSV (herpes simplex virus) infection Hypercholesteremia Hypertension 01/2017 Impaired fasting glucose 08/2013 5.7% A1C Mild intermittent asthma without complication 10/27/2019 NNEKA (obstructive sleep apnea) 10/27/2019 Patellofemoral disorder 03/09/2009 PONV (postoperative nausea and vomiting) 03/17/2015 PTSD (post-traumatic stress disorder) per counseling center rheumatoid arthritis Right carpal tunnel syndrome 06/30/2013 Right hand paresthesia 04/28/2013 Seizures ([facility]) Snoring Temporomandibular joint disorders, unspecified Toenail deformity 04/28/2013 Trigger middle finger of right hand 12/15/2014 Trigger ring finger of right hand 12/15/2014 Vitamin D deficiency 03/2013 Current Outpatient Medications Medication Sig Dispense Refill amoxicillin-clavulanic acid (AUGMENTIN) 875-125 mg per tablet Take 1 tablet by mouth two times a day for 7 days. 14 tablet [address] (PROTONIX) 40 mg tablet Take 1 tablet by mouth once daily. 180 tablet 0 cetirizine (ZYRTEC) 10 mg tablet Take 1 tablet by mouth once daily. 30 tablet 2 fluticasone (FLOVENT HFA) 110 mcg/actuation inhaler Inhale 1 Puff as instructed twice daily. Rinse mouth after using. 12 g 5 omeprazole (PRILOSEC) 40 mg capsule Take 1 capsule by mouth twice daily. Open capsules 180 capsule 2 sucralfate (CARAFATE) 100 mg/mL suspension Take 10 mL by mouth four times daily. 3600 mL 1 maalox-lidocaine (GI COCKTAIL) 2:1 liqd Take 5 mL by mouth every 4 hours as needed for up to 30 doses. 30 mL 0 rOPINIRole (REQUIP) 0.5 mg tablet Take 1-2 tablets by mouth at bedtime as needed (restless legs). 60 tablet 5 Blood Pressure Monitor 1 Each as directed. Blood pressure KIT, Dx: HTN 1 Each 0 escitalopram oxalate (LEXAPRO) 5 mg tablet Take 1 tablet by mouth daily at bedtime. For mood 30 tablet 5 0.9 % sodium chloride (NACL 0.9%) 0.9% solp Please administer over 2 hours. 1000 mL 0 ondansetron orally disintegrating (ZOFRAN ODT) 4 mg disintegrating tablet Take 1 tablet by mouth every 8 hours as needed for nausea/vomiting. 20 tablet 1 oxyCODONE IR (ROXICODONE) 5 mg immediate release tablet Take 1 tablet by mouth every 6 hours as needed for pain. 8 tablet 0 xeoufu-ncvclfoz-lnvpbml (CREON) 36,000-114,000- 180,000 unit delayed release capsule Take 3 capsules by mouth three times daily with meals. 810 capsule 0 valACYclovir (VALTREX) 500 mg tablet Take 1 tablet by mouth twice daily. 60 tablet 5 Magnesium Oxide 500 mg tab Take 1 tablet by mouth once daily. 90 tablet 3 Miscellaneous Medical Supply (BLOOD PRESSURE CUFF) 1 Each once daily. 1 Each 0 cyclobenzaprine (FLEXERIL) 10 mg tablet Take 1 tablet by mouth three times daily as needed for muscle spasm. 30 tablet 0 triamcinolone acetonide (NASACORT) 55 mcg nasal inhaler Use 2 Sprays in the nose once daily. 16.9 mL 5 cholecalciferol (VITAMIN D3) 50 mcg (2,000 unit) tablet Take 1 tablet by mouth once daily. (more content not included)... Normal [facility] FLUABV + SARS-CoV-2 Pnl Resp AYAZ+prbon 12-13-2022 Influenza virus A and B RNA and SARS-CoV-2 (COVID-19) N gene panel AYAZ+probe (Resp) COVID 19 RESULT: Not detected The method used is RT-PCR or an equivalent NAAT method. Reference Range (the expected result in uninfected individuals): Not detected INFLUENZA A PCR: Not detected INFLUENZA B PCR: Not detected Normal [facility] Comment on above: Performed By: #### 9 [id number] ####[facility] LABCLIA [id number] [place] [id number] [place] Endoscopic Ultrasound (Upper )on 11-09-2022 Kristal Recinos MD - 12/05/2022 Patient Name: Ning Ann Procedure Date: 11/09/2022 12:35 PM Date of : 1970 Admit Type: Outpatient Site: [facility] Ethnicity: Not or Race: White Attending MD: Kristal Recinos MD, [id number] Procedure: Upper EUS Indications: Common bile duct dilation (acquired) seen on MRI, Upper abdominal pain, Generalized abdominal pain, Assessment following Bernadine-en-Y gastric bypass Patient Profile: This is a 52 year old female. Refer to note in patient chart for documentation of history and physical. Providers: Kristal Recinos MD (Doctor), Amanda Muñoz RN (Nurse), Clive Boyer, Automotive Brake Specialist Referring: Medicines: Monitored Anesthesia Care Complications: No immediate complications. Procedure: After obtaining informed consent, the endoscope was passed under direct vision. Throughout the procedure, the patient's blood pressure, pulse, and oxygen saturations were monitored continuously. The endoscope was introduced through the mouth, and advanced to the jejunum. After obtaining informed consent, the endoscope was passed under direct vision. Throughout the procedure, the patient's blood pressure, pulse, and oxygen saturations were monitored continuously. The ultrasound scope was introduced through the mouth, and advanced to the stomach for ultrasound examination. Findings: ENDOSCOPIC FINDING: : The examined esophagus was normal. The Z-line was found 38 cm from the incisors. Evidence of a gastric bypass was found. A gastric pouch with a 5 cm length from the GE junction to the gastrojejunal anastomosis was found. The staple line appeared intact. The gastrojejunal anastomosis was characterized by healthy appearing mucosa. This was traversed. The vjhtp-xw-aoecrje limb was characterized by healthy appearing mucosa. The examined jejunum was normal. ENDOSONOGRAPHIC FINDING: : There was no sign of significant endosonographic abnormality in the genu of the pancreas, pancreatic body and pancreatic tail. The pancreatic duct measured up to 2 mm in diameter. The pancreas was well visualized, the pancreatic duct was well visualized from ampulla to tail, the pancreatic duct was thin in caliber, the pancreatic duct was regular in contour. Endosonographic images of the remnant stomach were unremarkable. No pathologic lymphadenopathy, no masses and no wall thickening were identified. Given limitations of post surgical anatomy (RYGB), the bile duct was unabe to be visualized. Estimated Blood Loss: Estimated blood loss: none. Impression: EGD: - Normal esophagus. - Z-line, 38 cm from the incisors. - Gastric bypass with a pouch 5 cm in length and intact staple line. Gastrojejunal anastomosis characterized by healthy appearing mucosa. - Normal examined jejunum. EUS: - There was no sign of significant pathology in the genu of the pancreas, pancreatic body and pancreatic tail. - Endosonographic images of the remnant stomach were unremarkable. - Given limitations of post surgical anatomy (RYGB), the bile duct was unabe to be visualized. Recommendation: - The patient will be observed post-procedure, until all discharge criteria are met. - Patient has a contact number available for emergencies. The signs and symptoms of potential delayed complications were discussed with the patient. Return to normal activities tomorrow. Written discharge instructions were provided to the patient. - Resume previous diet. - Continue present medications. Procedure Code(s): --- Professional --- 15728, Esophagogastroduodenosc opy, flexible, transoral; with endoscopic ultrasound examination limited to the esophagus, stomach or duodenum, and adjacent structures Diagnosis Code(s): --- Professional --- Z98.84, Bariatric surgery status R10.10, Upper abdominal pain, unspecified R10.84, Generalized abdominal pain Z09, Encounter for follow-up examination after completed treatment for conditions other than malignant neoplasm Z98.0, Intestinal bypass and anastomosis status K83.8, Other specified diseases of biliary tract CPT copyright 2020 [employer]. All rights reserved. The codes documented in this report are preliminary and upon electronic scale tester review may be revised to meet current compliance requirements. MD Kristal Zarate MD 11/09/2022 1:18:40 PM This report has been signed electronically. Number of Addenda: 0 Note Initiated On: 11/09/2022 12:35 PM Total Procedure Duration Time 0 hours 17 minutes 19 seconds [facility] Work Phone: Radiology Study observation (narrative) [facility] Work Phone: Endoscopic Ultrasound (Upper )Ordered By: Kristal Recinos on 11-09-2022 [facility] Work Phone: Upper EUSon 11-09-2022 Upper EUS PATIENTNAME Patient Name: Ning Ann EXAMDATE Procedure Date: 11/09/2022 12:35 PM PATIENTID PATIENTACCOUNTNUM PATIENTDOB Date of : 1970 ADMITTYPE Admit Type: Outpatient PATIENTROOM Site: [facility] 1 ETHNICITY Ethnicity: Not or RACE Race: White PROVDR Attending MD: Kristal Recinos MD, [id number] ENDOPROCEDURENAME Procedure: Upper EUS INDICATION Indications: Common bile duct dilation (acquired) seen on MRI, Upper abdominal pain, Generalized abdominal pain, Assessment following Bernadine-en-Y gastric bypass PTPROFILE Patient Profile: This is a 52 year old female. Refer to note in patient chart for documentation of history and physical. PRIMARYPROVIDER Providers: Kristal Recinos MD (Doctor), Amanda Muñoz RN (Nurse), Clive Boyer, Automotive Brake Specialist EDREFPROVIDER Referring: CURRENT_MEDS Medicines: Monitored Anesthesia Care COMPLIC Complications: No immediate complications. ENDOPROCEDURETEXT Procedure: After obtaining informed consent, the endoscope was passed under direct vision. Throughout the procedure, the patient's blood pressure, pulse, and oxygen saturations were monitored continuously. The endoscope was introduced through the mouth, and advanced to the jejunum. After obtaining informed consent, the endoscope was passed under direct vision. Throughout the procedure, the patient's blood pressure, pulse, and oxygen saturations were monitored continuously. The ultrasound scope was introduced through the mouth, and advanced to the stomach for ultrasound examination. FINDING Findings: ENDOSCOPIC FINDING: : The examined esophagus was normal. The Z-line was found 38 cm from the incisors. Evidence of a gastric bypass was found. A gastric pouch with a 5 cm length from the GE junction to the gastrojejunal anastomosis was found. The staple line appeared intact. The gastrojejunal anastomosis was characterized by healthy appearing mucosa. This was traversed. The izepx-gy-gyiswzm limb was characterized by healthy appearing mucosa. The examined jejunum was normal. ENDOSONOGRAPHIC FINDING: : There was no sign of significant endosonographic abnormality in the genu of the pancreas, pancreatic body and pancreatic tail. The pancreatic duct measured up to 2 mm in diameter. The pancreas was well visualized, the pancreatic duct was well visualized from ampulla to tail, the pancreatic duct was thin in caliber, the pancreatic duct was regular in contour. Endosonographic images of the remnant stomach were unremarkable. No pathologic lymphadenopathy, no masses and no wall thickening were identified. Given limitations of post surgical anatomy (RYGB), the bile duct was unabe to be visualized. EBL Estimated Blood Loss: Estimated blood loss: none. IMPRESS Impression: EGD: - Normal esophagus. - Z-line, 38 cm from the incisors. - Gastric bypass with a pouch 5 cm in length and intact staple line. Gastrojejunal anastomosis characterized by healthy appearing mucosa. - Normal examined jejunum. EUS: - There was no sign of significant pathology in the genu of the pancreas, pancreatic body and pancreatic tail. - Endosonographic images of the remnant stomach were unremarkable. - Given limitations of post surgical anatomy (RYGB), the bile duct was unabe to be visualized. ENDORECOMMENDATION Recommendation: - The patient will be observed post-procedure, until all discharge criteria are met. - Patient has a contact number available for emergencies. The signs and symptoms of potential delayed complications were discussed with the patient. Return to normal activities tomorrow. Written discharge instructions were provided to the patient. - Resume previous diet. - Continue present medications. CPT_CODES Procedure Code(s): --- Professional --- 93459, Esophagogastroduodenosc opy, flexible, transoral; with endoscopic ultrasound examination limited to the esophagus, stomach or duodenum, and adjacent structures ICD_CODES Diagnosis Code(s): --- Professional --- Z98.84, Bariatric surgery status R10.10, Upper abdominal pain, unspecified R10.84, Generalized abdominal pain Z09, Encounter for follow-up examination after completed treatment for conditions other than malignant neoplasm Z98.0, Intestinal bypass and anastomosis status K83.8, Other specified diseases of biliary tract CODINGSTPR CPT copyright 2020 [employer]. All rights reserved. The codes documented in this report are preliminary and upon electronic scale tester review may be revised to meet current compliance requirements. SIGNATURENAME MD Kristal Zarate MD SIGNATUREDATE 11/09/2022 1:18:40 PM SIGNATUREONFILEIND This report has been signed electronically. NUMADDENDA Number of Addenda: 0 INITIATEDON Note Initiated On: 11/09/2022 12:35 PM TOTPROCTIME To (more content not included)... Normal [facility] Comprehensive metabolic 2000 panelon 10-11-2022 Albumin [Mass/Vol] 3.7 g/dL Low 3.9 - 4.9 g/dL [facility] ALP [Catalytic activity/Vol] 121 U/L 34 - 123 U/L [facility] ALT [Catalytic activity/Vol] 30 U/L 7 - 38 U/L [facility] Anion gap [Moles/Vol] 10 mmol/L 9 - 18 mmol/L [facility] AST [Catalytic activity/Vol] 28 U/L 13 - 35 U/L [facility] Bilirubin [Mass/Vol] 0.3 mg/dL 0.2 - 1 .3 mg/dL [facility] Calcium [Mass/Vol] 9.3 mg/dL 8.5 - 10. 2 mg/dL [facility] Chloride [Moles/Vol] 105 mmol/L 97 - 10 5 mmol/L [facility] CO2 [Moles/Vol] 22 mmol/L 22 - 30 mmol/L [facility] Creatinine [Mass/Vol] 0.81 mg/dL 0.58 - 0.96 mg/dL [facility] Estimated Glomerular Filtration Rate 88 mL/min/1.73m >=60 mL/min/1.73m [facility] Glucose [Mass/Vol] 85 mg/dL 74 - 99 mg/dL [facility] Potassium [Moles/Vol] 4.3 mmol/L 3.7 - 5.1 mmol/L [facility] Protein [Mass/Vol] 6.7 g/dL 6.3 - 8.0 g/dL [facility] Sodium [Moles/Vol] 137 mmol/L 136 - 144 mmol/L [facility] Urea nitrogen [Mass/Vol] 9 mg/dL 7 - 21 mg/dL [facility] MAGNESIUM BLDon 10-11-2022 Magnesium [Mass/Vol] 2.0 mg/dL 1.7 - 2 .3 mg/dL [facility] T3 FREE BLDon 10-11-2022 Free T3 [Mass/Vol] 2.5 pg/mL 2.3 - 4.1 pg/mL [facility] T4 FREE/FREE THYROXon 2022 Free T4 [Mass/Vol] 0.9 ng/dL 0.9 - 1.7 ng/dL [facility] TSH BLDon 10-11-2022 TSH Qn 3.580 m[IU]/L 0.270 - 4.200 mIU/L [facility] VITAMIN B12 BLOODon 10-12-19 Cobalamin (Vitamin B12) [Mass/Vol] 1407 pg/mL High 232 - 1,245 pg/mL [facility] VITAMIN D 25 HYDROXYon 10-11 25-hydroxyvitamin D3 [Mass/Vol] 41.2 ng/mL 31.0 - 80.0 ng/mL [facility] ANES POSTPROC EVALon 023 ANES POSTPROC EVAL HNO ID: [id number] Author: Max Sen MD Service: ? Author Type: Anesthesiologist Type: Anesthesia Postprocedure Evaluation Filed: 03/29/2022 9:05 AM Note Text: POST ANESTHESIA EVALUATION NOTE : 1970 Procedure Summary Date: 03/22/22 Room / Location: [place] [address] / [place] Anesthesia Start: 1447 Anesthesia Stop: 151 Procedures: DECOMPRESSION NERVE MEDIAN CARPAL TUNNEL (Left: Wrist) INJECTION SHOULDER LEFT - NO C-ARM (Left: Shoulder) Diagnosis: Carpal tunnel syndrome, left (Carpal tunnel syndrome, left [G56.02]) Surgeons: Charlie Draper MD Responsible Provider: Max Sen MD Anesthesia Type: MAC ASA Status: 2 Anesthesia Type: MAC Last Vitals Vitals Value Taken Time BP 162/82 03/22/22 1600 Temp 37.5 ?C (99.5 ?F) 03/22/22 1525 Pulse 67 03/22/22 1615 Resp 27 03/22/22 1615 SpO2 98 % 03/22/22 1615 Post Anesthesia Patient Status Patient Evaluation: bedside. Anticipated Disposition: phase 2 then home. Neurological Status: aware and responsive. Pulmonary Status: breathing comfortably on room air Airway Control: returned to baseline unsupported. Cardiovascular Status: stable. Pain Management: clinically adequate Postoperative Hydration: acceptable. Intraoperative Events: no significant anesthesia events Post Operative Nausea/Vomiting Status: no significant post operative nausea or vomiting Recommendation: continue current plan of care. Anesthesia Observations No Documentation SIGNATURE: Max Sen MD PATIENT NAME: Ning Ann DATE: March 29, 2022 TIME: 9:04 AM CSN: [id number] [facility] ANES PRE-OPon 03-22-2022 ANES PRE-OP HNO ID: [id number] Author: Max Sen MD Service: ? Author Type: Anesthesiologist Type: Anesthesia Preprocedure Evaluation Filed: 03/22/2022 1:33 PM Note Text: ANESTHESIOLOGY DAY OF SURGERY NOTE : 1970 Procedure Information Date/Time: 03/22/22 1425 Procedures: DECOMPRESSION NERVE MEDIAN CARPAL TUNNEL (Left: Wrist) INJECTION SHOULDER LEFT - NO C-ARM (Left: Shoulder) Location: [facility] / [place] Surgeons: Charlie Draper MD Estimated body mass index is 43.91 kg/m? as calculated from the following: Height as of 03/08/22: 158.5 cm (5' 2.4 ). Weight as of 03/08/22: 110.3 kg (243 lb 3.2 oz). Most recent hematocrit and potassium results: Hematocrit 41.8 01/04/2022 Potassium 4.6 01/04/2022 Relevant Problems ANESTHESIA (+) NNEKA (obstructive sleep apnea) CARDIO (+) DVT (deep venous thrombosis) (HCC) (+) Hypertension, essential (-) Angina at rest (HCC) (-) Angina of effort (HCC) GI (+) GERD (gastroesophageal reflux disease) (+) Hiatal hernia NEURO-PSYCH (+) Seizures (HCC) PULMONARY (+) Mild intermittent asthma without complication (Improved. Has not needed PRN albuterol in nember of weeks.) (+) NNEKA (obstructive sleep apnea) I - PHYSICAL EVALUATION AIRWAY Patient intubated: No. Tracheostomy tube not present Mallampati: II. TM distance: >3 FB. Neck ROM: full ROM without neurological symptoms. Mouth opening: adequate. Short neck: no. Thick neck: no Ziegler present: no DENTAL Dental findings: teeth intact. Additional exam findings: yes. CARDIOVASCULAR Rhythm: regular Rate: normal PULMONARY Breath sounds clear to auscultation. II - ANESTHESIA PLAN ASA Score: 2 The patient is not a current smoker. NPO Status: adequate Beta Annamarie Monitoring Plan Monitoring plan: standard ASA. Post Procedure Analgesic Plan Postoperative analgesic plan: multimodal analgesia. Informed Consent Anesthetic risks, benefits, alternatives, personnel and consent discussed: yes. Patient / Responsible Libertarian agrees to proceed: yes Patient / Surrogate agrees to blood products: Yes DNR status not reviewed with patient and/or family prior to surgery. Significant changes in the patient condition since the History and Physical, not otherwise documented in primary service progress note: no. Potential Anesthesia issues that may suggest increased risk of complications or contraindication to planned procedure: none. No vitals data found for the desired time range. Facility-Administered Medications as of 03/22/2022 Medication Dose Route Frequency - lidocaine (PF) 10 mg/mL (1 %) 1-2 mg injection (XYLOCAINE) 0.1-0.2 mL INTRADERMAL PRN - lactated ringers iv infusion 5-30 mL/hr INTRAVENOUS CONTINUOUS - NaCl 0.9% iv flush bag 20 mL INTRAVENOUS PRN - ceFAZolin iv piggyback 2 g in D5W (iso-osmotic) 100 mL (ANCEF) 2 g INTRAVENOUS Pre-Op Once - promethazine 12.5 mg tab(s) (PHENERGAN) 12.5 mg ORAL Pre-Op Once - scopolamine 1 mg over 3 days 1 Patch (TRANSDERM-SCOP) 1 Patch TRANSDERMAL ONCE Outpatient Medications as of 03/22/2022 Medication Sig - venlafaxine ER (EFFEXOR XR) 37.5 mg 24 hr capsule Take 1 capsule by mouth once daily. - cetirizine (ZYRTEC) 10 mg tablet Take 1 tablet by mouth once daily. - omeprazole (PRILOSEC) 40 mg capsule Take 1 capsule by mouth once daily. - diclofenac (VOLTAREN) 1 % topical gel Apply 2 g to affected area four times daily. uses on foot and left arm - [] doxycycline (VIBRA-TABS) 100 mg tablet Take 1 tablet by mouth twice daily for 7 days. - meloxicam (MOBIC) 15 mg tablet Take 1 tablet by mouth once daily. Take with food. - polyethylene glycol 3350 (MIRALAX) 17 gram/dose powder Take 1 scoop of powder by mouth with 8oz of liquid once daily in the morning - rOPINIRole (REQUIP) 4 mg tablet Take 1 tablet by mouth daily at bedtime. - albuterol HFA (PROVENTIL HFA, VENTOLIN HFA) 90 mcg/actuation inhaler Inhale 2 Puffs as instructed every 4 hours as needed for wheezing/shortness of breath. - albuterol (PROVENTIL) 2.5 mg /3 mL (0.083 %) nebulizer solution Use 3 mL via nebulizer every 4 hours as needed for wheezing/shortness of breath. Use over 5-15minutes. - Miscellaneous Medical Supply (BLOOD PRESSURE CUFF) 1 Each once daily. - cyclobenzaprine (FLEXERIL) 10 mg tablet Take 1 tablet by mouth three times daily as needed for muscle spasm. - triamcinolone acetonide (NASACORT) 55 mcg nasal inhaler Use 2 Sprays in the nose once daily. - fluticasone (FLOVENT HFA) 110 mcg/actuation inhaler Inhale 1 Puff as instructed twice daily. Rinse mouth after using. - cholecalciferol (VITAMIN D3) 50 mcg (2,000 unit) tablet Take 1 tablet by mouth once daily. - cyanocobalamin (VITAMIN B-12) 1,000 mcg tab Take 1 tablet by mouth once daily. - ipratropium-albuterol (DUONEB) 0.5 mg-3 mg(2.5 mg base)/3 mL nebu Inhale 3 mL as instructed every 4 hours as needed for wheezing/shortness of breath. - Nebulizers 1 Each as directed. Dx (more content not included)... [facility] OPERATIVE NOon 03-22-2022 OPERATIVE NO HNO ID: [id number] Author: Charlie Draper MD Service: Orthopaedic Surgery Author Type: Physician Type: Operative Report Filed: 03/27/2022 12:55 PM Note Text: OPERATIVE/PROCEDURE REPORT LOG ID: [id number] SURGERY/PROCEDURE DATE: 03/22/2022 INCISION/PROCEDURE START TIME: 3:04 PM INCISION CLOSE/PROCEDURE END TIME: 3:17 PM SURGEON(S)/PROCEDURALIS T(S) AND HUMID SYSTEM OPERATOR(S): Surgeon(s) and Role: * Charlie Draper MD - Primary Physician Candle Wicker: Lyudmila Lynch PA-C SURGERY/PROCEDURE(S): OPERATION: 1. Left carpal tunnel release, open. 2. Left shoulder, subacromial injection; large joint. ANESTHESIA: MAC with local. PREOPERATIVE DIAGNOSIS:1. Left carpal tunnel syndrome. 2. Left shoulder, subacromial impingement. POSTOPERATIVE DIAGNOSIS: Same OPERATIVE INDICATIONS: This is a pleasant 51 year old female who had worsening, numbness, and tingling. She deferred nerve testing, though had successful corrective surgery on the right side back in 2013. Additionally, she has been having impingement symptoms in her left shoulder and she wished to have a cortisone injection at the time of anesthesia. She exhausted conservative management and in the office, we discussed the risks, benefits, alternatives, and potential complications involving carpal tunnel release and she wished to pursue surgical intervention. OPERATIVE FINDINGS: Consistent with postoperative diagnosis. OPERATIVE PROCEDURE: On March 22, 2022, the patient was clearly identified in the preoperative area and marked accordingly on the Left palm and shoulder by myself. She was taken to the operative suite and placed in the supine position with an armboard on the Left. She received 2 g of Ancef in the IV within 1 hour of incision or tourniquet. Anesthesia assumed care of the head and neck for the remainder of the case and began a MAC anesthetic. All other bony landmarks were appropriately padded in standard fashion. The upper extremity had a well-padded upper brachium tourniquet applied with Webril padding and set at 250 mmHg, but not yet inflated. The arm was then sterilely prepped and draped in standard fashion. An appropriate time-out was conducted and all in the room were in agreement, signed consent form was on the chart. The upper extremity was exsanguinated with an Esmarch bandage and the tourniquet was applied at 250 mmHg. Local anesthetic was provided at the palm and wrist with 1% lidocaine plain and 0.25% Marcaine plain in a 1:1 ratio for total of 4 mL. A longitudinal incision was made with in line with the third web space from 1 cm distal of the wrist crease to Garner's cardinal line. I used Marlyn Rakes to retract the soft tissues. Bipolar electrocautery was used for hemostasis. I bluntly dissected down with Littler scissors to distal edge of the transverse carpal ligament until a flash of fat was noted. I directly divided distal edge of the transverse carpal ligament with a #15 blade. Attention was then focused on the proximal portion and I used Littler scissors to bluntly dissect off the volar surface of the transverse carpal ligament. A carpal tunnel and median nerve protection guide was slid directly under the ligament for dilation and a second time for appropriate positioning, this was passed freely without any resistance. Subsequently, I selected a mini meniscotome [place] blade and slid this in the protective guide, completely dividing the transverse carpal ligament. Marlyn rakes were used to view up the wound to visualize for complete release and a [place] elevator was used to palpate for complete release. At this point, the tourniquet was taken down and hemostasis was observed. The wound was copiously irrigated with normal saline and I closed with 3-0 nylons in horizontal mattress fashion for a total of 3. Xeroform gauze, sterile 4 x 4 gauze, Webril padding, and a Bias roll was used for final bandage. After a ChloraPrep to the left shoulder subacromial injection was provided with 80 mg of Kenalog and 3 cc of quarter percent Marcaine plain. Band-Aid was applied. There were no complications during the procedure. The patient was safely awoken and transferred to the Postanesthetic Care Unit in stable condition. ANESTHESIA: Monitored Anesthesia Care ESTIMATED BLOOD LOSS: 0 ml SPECIMENS: None IMPLANTABLE DEVICES: NONE DRAINS: None COMPLICATIONS: None PARTICIPATION IN SURGERY/PROCEDURE: I/primary surgeon/proceduralist performed the entire procedure. SIGNATURE: Charlie Draper MD PATIENT NAME: Ning Ann DATE: March 27, 2022 TIME: 12:[address] [facility] XR Cervical spine AP and Lat eral and obliqueon 02-19-2022 IMPRESSION: As above Plant Tour Guide: PSCB Transcribe Date/Time: Feb 19 2022 5:29P Dictated by : SUHAIL SERNA MD This examination was interpreted and the report reviewed and electronically signed by: SUHAIL SERNA MD on Feb 19 2022 6:25PM [facility] DIVISION OF RADIOLOGY * * *Final Report* * * DATE OF EXAM: Feb 17 2022 10:32AM WOX 5311 - XR CERVICAL 4V AP/LAT/OBL / PROCEDURE REASON: multiple diagnoses * * * * Physician Interpretation * * * * History: Left arm pain and hand pain/paresthesia FINDINGS: AP, lateral, and bilateral oblique views of the cervical spine have been obtained. The bones are well-mineralized without evidence of fracture or subluxation. Vertebrae are best seen to the level of C6. Vertebral and intervertebral disc space heights appear maintained. Prevertebral soft tissues are unremarkable. There is mild neural foraminal narrowing on the left at the C5/6 and C6/7 levels. DIVISION OF RADIOLOGY Provider, Kenan De La Garza [facility] - 02/19/2022 * * *Final Report* * * DATE OF EXAM: Feb 17 2022 10:32AM WOX 5311 - XR CERVICAL 4V AP/LAT/OBL / PROCEDURE REASON: multiple diagnoses * * * * Physician Interpretation * * * * History: Left arm pain and hand pain/paresthesia FINDINGS: AP, lateral, and bilateral oblique views of the cervical spine have been obtained. The bones are well-mineralized without evidence of fracture or subluxation. Vertebrae are best seen to the level of C6. Vertebral and intervertebral disc space heights appear maintained. Prevertebral soft tissues are unremarkable. There is mild neural foraminal narrowing on the left at the C5/6 and C6/7 levels. IMPRESSION IMPRESSION: As above Plant Tour Guide: LEON Transcribe Date/Time: Feb 19 2022 5:29P Dictated by : SUHAIL SERNA MD This examination was interpreted and the report reviewed and electronically signed by: SUHAIL SERNA MD on Feb 19 2022 6:25PM EST [facility] XR Cervical spine AP and Lat eral and obliqueOrdered By: Ccf [facility] C[facility] and Lat eral and obliqueon 02-17-2022 Radiology Study observation (narrative) [facility] XR CHEST 2V FRONTAL/LATon [facility] XR Chest PA and Lateralon IMPRESSION: No acute radiographic abnormality. Plant Tour Guide: LEON Transcribe Date/Time: Dec 05 2021 12:03P Dictated by : SKYLAR STRICKLAND MD This examination was interpreted and the report reviewed and electronically signed by: SKYLAR STRICKLAND MD on Dec 05 2021 12:03PM EST DIVISION OF RADIOLOGY * * *Final Report* * * DATE OF EXAM: Dec 05 2021 11:56AM WOX 5291 - XR CHEST 2V FRONTAL/LAT / PROCEDURE REASON: Acute cough * * * * Physician Interpretation * * * * EXAMINATION: CHEST RADIOGRAPH (2 VIEW FRONTAL & LATERAL) CLINICAL HISTORY: Acute cough MQ: XC2_6 EXAM DATE/TIME: 12/05/2021 11:56 AM COMPARISON: 02/16/2021 RESULT: Lines, tubes, and devices: None. Lungs and pleura: No consolidation. No lung mass. No pleural effusion. No pneumothorax. Cardiomediastinal silhouette: Normal cardiomediastinal silhouette. Bones and soft tissues: Unremarkable. DIVISION OF RADIOLOGY Provider, [facility] - 12/05/2021 * * *Final Report* * * DATE OF EXAM: Dec 05 2021 11:56AM WOX 5291 - XR CHEST 2V FRONTAL/LAT / PROCEDURE REASON: Acute cough * * * * Physician Interpretation * * * * EXAMINATION: CHEST RADIOGRAPH (2 VIEW FRONTAL & LATERAL) CLINICAL HISTORY: Acute cough MQ: XC2_6 EXAM DATE/TIME: 12/05/2021 11:56 AM COMPARISON: 02/16/2021 RESULT: Lines, tubes, and devices: None. Lungs and pleura: No consolidation. No lung mass. No pleural effusion. No pneumothorax. Cardiomediastinal silhouette: Normal cardiomediastinal silhouette. Bones and soft tissues: Unremarkable. IMPRESSION IMPRESSION: No acute radiographic abnormality. Plant Tour Guide: PSCB Transcribe Date/Time: Dec 05 2021 12:03P Dictated by : SKYLAR STRICKLADN MD This examination was interpreted and the report reviewed and electronically signed by: SKYLAR STRICKLAND MD on Dec 05 2021 12:03PM EST [facility] Radiology Study observation (narrative) [facility] XR Chest PA and LateralOrder ed By: [facility] Provider on 12-05-2021 [facility] UA DIP, URINE (POC)on 2021 BILIRUBIN UA (POCT) Negative Negative [facility] CLARITY UA (POCT) Clear [facility] COLOR UA (POCT) Yellow [facility] GLUCOSE UA (POCT) Negative Negative mg/dL [facility] HEMOGLOBIN/BLOOD UA (POCT) Negative Negative [facility] KETONE UA (POCT) Negative Negative mg/dL [facility] LEUKOCYTES UA (POCT) Negative Negative [facility] NITRITE UA (POCT) Negative Negative [facility] PH UA (POCT) 5.5 4.5 - 8.0 [facility] Protein Ql (U) Negative Negative mg/dL [facility] SPECIFIC GRAVITY UA (POCT) >=1.030 1.005 - 1.030 [facility] UROBILINOGEN UA (POCT) 0.2 E.U./dL Tess l E.U./dL [facility] CBC W Auto Differential pane l (Bld)on 07-08-2021 Abs Immature Gran 0.04 k/uL <0.10 k/uL [facility] Basophils (Bld) [#/Vol] 0.04 10*3/uL <0.11 k/uL [facility] Basophils/100 WBC (Bld) 0.5 % [facility] Differential cell count method Nom (Bld) Auto [facility] Eosinophils (Bld) [#/Vol] 0.10 10*3/uL <0.46 k/uL [facility] Eosinophils/100 WBC (Bld) 1.3 % [facility] Erythrocyte distribution width (RBC) [Ratio] 13.8 % 11.5 - 15.0 % [facility] Hematocrit (Bld) [Volume fraction] 39.7 % 36.0 - 46.0 % [facility] Hemoglobin (Bld) [Mass/Vol] 12.7 g/dL 11.5 - 15.5 g/dL [facility] Immature Gran % 0.5 % [facility] Lymphocytes (Bld) [#/Vol] 1.70 10*3/uL 1.00 - 4.00 k/uL [facility] Lymphocytes/100 WBC (Bld) 22.6 % [facility] MCH (RBC) [Entitic mass] 27.5 pg 26.0 - 34.0 pg [facility] MCHC (RBC) [Mass/Vol] 32.0 g/dL 30.5 - 36.0 g/dL [facility] MCV (RBC) [Entitic vol] 86.1 fL 80.0 - 100.0 fL [facility] Monocytes (Bld) [#/Vol] 0.45 10*3/uL <0.87 k/uL [facility] Monocytes/100 WBC (Bld) 6.0 % [facility] Neutrophils (Bld) [#/Vol] 5.19 10*3/uL 1.45 - 7.50 k/uL [facility] Neutrophils/100 WBC (Bld) 69.1 % [facility] Nucleated RBC (Bld) [#/Vol] 10*3/uL <0.01 k/uL [facility] Nucleated RBC/100 WBC (Bld) [Ratio] 0.0 /100 WBC [facility] Platelet mean volume (Bld) [Entitic vol] 10.3 fL 9.0 - 12.7 fL [facility] Platelets (Bld) [#/Vol] 280 10*3/uL 150 - 400 k/uL [facility] RBC (Bld) [#/Vol] 4.61 10*6/uL 3.90 - 5.2 0 m/uL [facility] WBC (Bld) [#/Vol] 7.52 10*3/uL 3.70 - 11. 00 k/uL [facility] Comprehensive metabolic 2000 panelon 07-08-2021 Albumin [Mass/Vol] 3.8 g/dL Low 3.9 - 4.9 g/dL [facility] ALP [Catalytic activity/Vol] 119 U/L 34 - 123 U/L [facility] ALT [Catalytic activity/Vol] 18 U/L 7 - 38 U/L [facility] Anion gap [Moles/Vol] 9 mmol/L 9 - 18 mmol/L [facility] AST [Catalytic activity/Vol] 15 U/L 13 - 35 U/L [facility] Bilirubin [Mass/Vol] 0.2 mg/dL 0.2 - 1 .3 mg/dL [facility] Calcium [Mass/Vol] 9.2 mg/dL 8.5 - 10. 2 mg/dL [facility] Chloride [Moles/Vol] 103 mmol/L 97 - 10 5 mmol/L [facility] CO2 [Moles/Vol] 27 mmol/L 22 - 30 mmol/L [facility] Creatinine [Mass/Vol] 0.72 mg/dL 0.58 - 0.96 mg/dL [facility] Estimated Glomerular Filtration Rate 102 mL/min/1.73m >=60 mL/min/1.73m [facility] Glucose [Mass/Vol] 97 mg/dL 74 - 99 mg/dL [facility] Potassium [Moles/Vol] 4.3 mmol/L 3.7 - 5.1 mmol/L [facility] Protein [Mass/Vol] 7.3 g/dL 6.3 - 8.0 g/dL [facility] Sodium [Moles/Vol] 139 mmol/L 136 - 144 mmol/L [facility] Urea nitrogen [Mass/Vol] 8 mg/dL 7 - 21 mg/dL [facility] FERRITIN [facility] 07-08-2021 Ferritin [Mass/Vol] 93.5 ng/mL 14.7 - 2 05.1 ng/mL [facility] FSH [facility] 07-08-2021 Follitropin Qn 8.2 m[IU]/mL See comment mIU/mL [facility] IRON + TIBCon 07-08-2021 Iron [Mass/Vol] 34 ug/dL Low 41 - 186 ug/dL [facility] Iron binding capacity [Mass/Vol] 378 ug/dL 232 - 386 ug/dL [facility] Iron/TIBC [Molar ratio] 9 % Low 15 - 57 % [facility] T3 FREE [facility] 07-08-2021 Free T3 [Mass/Vol] 3.0 pg/mL 2.3 - 4.1 pg/mL [facility] T4 FREE/FREE THYROXon 2021 Free T4 [Mass/Vol] 0.9 ng/dL 0.9 - 1.7 ng/dL [facility] TSH Don 07-08-2021 TSH Qn 1.780 m[IU]/L 0.270 - 4.200 mIU/L [facility] VITAMIN B12 BLOODon 07-09-19 Cobalamin (Vitamin B12) [Mass/Vol] 1230 pg/mL 232-1,245 pg/mL [facility] VITAMIN D 25 HYDROXYon 07-08 25-hydroxyvitamin D3 [Mass/Vol] 37.8 ng/mL 31.0 - 80.0 ng/mL [facility] No Panel Informationon 03-18 IMPRESSION: Bilateral hips well-maintained. Plant Tour Guide: LEON Transcribe Date/Time: Mar 18 2021 10:59A Dictated by : DEVORAH FELDMAN MD This examination was interpreted and the report reviewed and electronically signed by: DEVORAH FELDMAN MD on Mar 18 2021 11:03AM [facility] DIVISION OF RADIOLOGY Radiology Study observation (narrative) [facility] No Panel InformationOrdered By: Cc Provider on 03-18-2021 [facility] XR Hip - left AP and Lateral on 03-18-2021 * * *Final Report* * * DATE OF EXAM: Mar 18 2021 10:48AM WOX 5279 - XR HIP 2V AP/ LAT LT / PROCEDURE REASON: multiple diagnoses * * * * Physician Interpretation * * * * HISTORY: pain for a couple of months posterior left hip and lateral side of left hip no inj. Left hip pain Acute left-sided low back pain without sciatica . TECHNIQUE: XR HIP 3V PELV+ AP/LAT RT, XR HIP 2V AP/ LAT LT Laterality: RIGHT (accession [id number]), LEFT (accession [id number]) Number of different views (projections): 3 (accession [id number]), 2 (accession [id number]) COMPARISON: None RESULT: Bilateral hips are well-maintained. There is enthesophyte formation of the acetabulum on both side. Normal contour of the femoral head. No fracture. Bony pelvis is intact. SI joints grossly unremarkable. DIVISION OF RADIOLOGY Provider, [facility] - 03/18/2021 * * *Final Report* * * DATE OF EXAM: Mar 18 2021 10:48AM WOX 5279 - XR HIP 2V AP/ LAT LT / PROCEDURE REASON: multiple diagnoses * * * * Physician Interpretation * * * * HISTORY: pain for a couple of months posterior left hip and lateral side of left hip no inj. Left hip pain Acute left-sided low back pain without sciatica . TECHNIQUE: XR HIP 3V PELV+ AP/LAT RT, XR HIP 2V AP/ LAT LT Laterality: RIGHT (accession [id number]), LEFT (accession [id number]) Number of different views (projections): 3 (accession [id number]), 2 (accession [id number]) COMPARISON: None RESULT: Bilateral hips are well-maintained. There is enthesophyte formation of the acetabulum on both side. Normal contour of the femoral head. No fracture. Bony pelvis is intact. SI joints grossly unremarkable. IMPRESSION IMPRESSION: Bilateral hips well-maintained. Plant Tour Guide: LEON Transcribe Date/Time: Mar 18 2021 10:59A Dictated by : DEVORAH FELDMAN MD This examination was interpreted and the report reviewed and electronically signed by: DEVORAH FELDMAN MD on Mar 18 2021 11:03AM EST [facility] XR Lumbar spine 3 Viewson IMPRESSION: Lumbar spine degenerative changes as described above. Plant Tour Guide: LEON Transcribe Date/Time: Mar 18 2021 10:56A Dictated by : ROSE MARY SULLIVAN MD This examination was interpreted and the report reviewed and electronically signed by: ROSE MARY SULLIVAN MD on Mar 18 2021 10:58AM EST DIVISION OF RADIOLOGY * * *Final Report* * * DATE OF EXAM: Mar 18 2021 10:48AM WOX 5228 - XR LUMBAR 3V AP/LAT/L5-S1 / PROCEDURE REASON: multiple diagnoses * * * * Physician Interpretation * * * * EXAM TITLE: XR LUMBAR 3V AP/LAT/L5-S1 EXAM DATE/TIME: 03/18/2021 10:48 AM COMPARISON: None. CLINICAL INDICATION/HISTORY: Pain. TECHNIQUE: AP, lateral and cone down lateral views of the lumbar spine are presented. FINDINGS: There are five [id number]-vbekxas lumbar vertebrae. No fracture or subluxations are noted. The disc spaces are grossly preserved. There is mild osteophyte formation, with facet arthrosis in the lower lumbar spine. Kissing spine seen on lateral view. DIVISION OF RADIOLOGY Provider, [facility] - 03/18/2021 * * *Final Report* * * DATE OF EXAM: Mar 18 2021 10:48AM WOX 5228 - XR LUMBAR 3V AP/LAT/L5-S1 / PROCEDURE REASON: multiple diagnoses * * * * Physician Interpretation * * * * EXAM TITLE: XR LUMBAR 3V AP/LAT/L5-S1 EXAM DATE/TIME: 03/18/2021 10:48 AM COMPARISON: None. CLINICAL INDICATION/HISTORY: Pain. TECHNIQUE: AP, lateral and cone down lateral views of the lumbar spine are presented. FINDINGS: There are five [id number]-jnxoisd lumbar vertebrae. No fracture or subluxations are noted. The disc spaces are grossly preserved. There is mild osteophyte formation, with facet arthrosis in the lower lumbar spine. Kissing spine seen on lateral view. IMPRESSION IMPRESSION: Lumbar spine degenerative changes as described above. Plant Tour Guide: LEON Transcribe Date/Time: Mar 18 2021 10:56A Dictated by : ROSE MARY SULLIVAN MD This examination was interpreted and the report reviewed and electronically signed by: ROSE MARY SULLIVAN MD on Mar 18 2021 10:58AM [facility] XR Pelvis and Hip - right AP and Lateral frogon 03-18-2021 * * *Final Report* * * DATE OF EXAM: Mar 18 2021 10:48AM WOX 5352 - XR HIP 3V PELV+ AP/LAT RT / PROCEDURE REASON: multiple diagnoses * * * * Physician Interpretation * * * * HISTORY: pain for a couple of months posterior left hip and lateral side of left hip no inj. Left hip pain Acute left-sided low back pain without sciatica . TECHNIQUE: XR HIP 3V PELV+ AP/LAT RT, XR HIP 2V AP/ LAT LT Laterality: RIGHT (accession [id number]), LEFT (accession [id number]) Number of different views (projections): 3 (accession [id number]), 2 (accession [id number]) COMPARISON: None RESULT: Bilateral hips are well-maintained. There is enthesophyte formation of the acetabulum on both side. Normal contour of the femoral head. No fracture. Bony pelvis is intact. SI joints grossly unremarkable. DIVISION OF RADIOLOGY Provider, [facility] - 03/18/2021 * * *Final Report* * * DATE OF EXAM: Mar 18 2021 10:48AM WOX 5352 - XR HIP 3V PELV+ AP/LAT RT / PROCEDURE REASON: multiple diagnoses * * * * Physician Interpretation * * * * HISTORY: pain for a couple of months posterior left hip and lateral side of left hip no inj. Left hip pain Acute left-sided low back pain without sciatica . TECHNIQUE: XR HIP 3V PELV+ AP/LAT RT, XR HIP 2V AP/ LAT LT Laterality: RIGHT (accession [id number]), LEFT (accession [id number]) Number of different views (projections): 3 (accession [id number]), 2 (accession [id number]) COMPARISON: None RESULT: Bilateral hips are well-maintained. There is enthesophyte formation of the acetabulum on both side. Normal contour of the femoral head. No fracture. Bony pelvis is intact. SI joints grossly unremarkable. IMPRESSION IMPRESSION: Bilateral hips well-maintained. Plant Tour Guide[facility] Transcribe Date/Time: Mar 18 2021 10:59A Dictated by : DEVORAH FELDMAN MD This examination was interpreted and the report reviewed and electronically signed by: DEVORAH FELDMAN MD on Mar 18 2021 11:03AM EST [facility] XR Chest PA and Lateralon IMPRESSION: No acute radiographic abnormality. Plant Tour Guide: [facility] Transcribe Date/Time: Feb 16 2021 5:38P Dictated by : HAILE BANKS MD This examination was interpreted and the report reviewed and electronically signed by: HAILE BANKS MD on Feb 16 2021 5:39PM EST DIVISION OF RADIOLOGY * * *Final Report* * * DATE OF EXAM: Feb 16 2021 5:20PM WOX 5291 - XR CHEST 2V FRONTAL/LAT / PROCEDURE REASON: multiple diagnoses * * * * Physician Interpretation * * * * EXAMINATION: CHEST RADIOGRAPH (2 VIEW FRONTAL & LATERAL) CLINICAL HISTORY: Shortness of breath Chest tightness MQ: XC2_6 EXAM DATE/TIME: 02/16/2021 5:20 PM COMPARISON: 02/10/2019 RESULT: Lines, tubes, and devices: None. Lungs and pleura: No consolidation. No lung mass. No pleural effusion. No pneumothorax. Cardiomediastinal silhouette: Normal cardiomediastinal silhouette. Bones and soft tissues: Endplate osteophytes at multiple levels in the thoracic spine. DIVISION OF RADIOLOGY Provider, [facility] - 02/16/2021 * * *Final Report* * * DATE OF EXAM: Feb 16 2021 5:20PM WOX 5291 - XR CHEST 2V FRONTAL/LAT / PROCEDURE REASON: multiple diagnoses * * * * Physician Interpretation * * * * EXAMINATION: CHEST RADIOGRAPH (2 VIEW FRONTAL & LATERAL) CLINICAL HISTORY: Shortness of breath Chest tightness MQ: XC2_6 EXAM DATE/TIME: 02/16/2021 5:20 PM COMPARISON: 02/10/2019 RESULT: Lines, tubes, and devices: None. Lungs and pleura: No consolidation. No lung mass. No pleural effusion. No pneumothorax. Cardiomediastinal silhouette: Normal cardiomediastinal silhouette. Bones and soft tissues: Endplate osteophytes at multiple levels in the thoracic spine. IMPRESSION IMPRESSION: No acute radiographic abnormality. Plant Tour Guide: LEON Transcribe Date/Time: Feb 16 2021 5:38P Dictated by : HAILE BANKS MD This examination was interpreted and the report reviewed and electronically signed by: HAILE BANKS MD on Feb 16 2021 5:39PM EST [facility] Radiology Study observation (narrative) [facility] XR Chest PA and LateralOrder ed By: Ccf Provider on 02-16-2021 [facility] XR Elbow - left AP and Later al and obliqueon 06-28-2020 IMPRESSION: No acute osseous findings. Plant Tour Guide: LEON Transcribe Date/Time: Jun 28 2020 10:11A Dictated by : TARA WARD DO This examination was interpreted and the report reviewed and electronically signed by: TARA WARD DO on Jun 28 2020 10:12AM [facility] DIVISION OF RADIOLOGY * * *Final Report* * * DATE OF EXAM: Jun 28 2020 10:03AM WOX 5324 - XR ELBOW 3V AP/LAT/OTHER LT / PROCEDURE REASON: Left elbow pain * * * * Physician Interpretation * * * * EXAMINATION: XR ELBOW 3V AP/LAT/OTHER LT PATIENT/TECHNOLOGIST PROVIDED HISTORY: pt states picked up a 6 pack of gatorade a month ago and has pain since worsening in the last few weeks, pain all along lateral left elbow. CLINICAL INFORMATION: 50 years old Female with Left elbow pain TECHNIQUE: XR ELBOW 3V AP/LAT/OTHER LT Laterality: LEFT Number of different views (projections): 3 COMPARISON: None available RESULT: No acute fracture or dislocation. Joint spaces are maintained. No effusion. DIVISION OF RADIOLOGY Provider, [facility] - 06/28/2020 * * *Final Report* * * DATE OF EXAM: Jun 28 2020 10:03AM WOX 5324 - XR ELBOW 3V AP/LAT/OTHER LT / PROCEDURE REASON: Left elbow pain * * * * Physician Interpretation * * * * EXAMINATION: XR ELBOW 3V AP/LAT/OTHER LT PATIENT/TECHNOLOGIST PROVIDED HISTORY: pt states picked up a 6 pack of gatorade a month ago and has pain since worsening in the last few weeks, pain all along lateral left elbow. CLINICAL INFORMATION: 50 years old Female with Left elbow pain TECHNIQUE: XR ELBOW 3V AP/LAT/OTHER LT Laterality: LEFT Number of different views (projections): 3 COMPARISON: None available RESULT: No acute fracture or dislocation. Joint spaces are maintained. No effusion. IMPRESSION IMPRESSION: No acute osseous findings. Plant Tour Guide: PSCB Transcribe Date/Time: Jun 28 2020 10:11A Dictated by : TARA WARD DO This examination was interpreted and the report reviewed and electronically signed by: TARA WARD DO on Jun 28 2020 10:12AM EST [facility] Radiology Study observation (narrative) [facility] XR Elbow - left AP and Later al and obliqueOrdered By: Ccbrayden Provider on 06-28-2020 [facility] ANES POSTPROC EVALon 020 ANES POSTPROC EVAL HNO ID: [id number] Author: Herb Altamirano Service: ? 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 Post Anesthesia Patient Status Patient Evaluation: PACU. PACU/ICU Patient Condition: stable. Anticipated Disposition: inpatient floor planned admission. Neurological Status: aware and responsive. Pulmonary Status: breathing comfortably on room air Airway Control: returned to baseline unsupported. Cardiovascular Status: stable. Pain Management: clinically adequate Postoperative Hydration: acceptable. Intraoperative Events: no significant anesthesia events Post Operative Nausea/Vomiting Status: Anesthetic Observations: no significant anesthetic observations Recommendation: continue current plan of care. SIGNATURE: Herb Altamirano MD PATIENT NAME: Ning Ann DATE: October 28, 2019 TIME: 3:02 PM CSN: [id number] [facility] ANES PRE-OPon 10-28-2019 ANES PRE-OP HNO ID: [id number] Author: Herb Altamirano Service: ? Author Type: Anesthesiologist Type: Anesthesia Preprocedure Evaluation Filed: 10/28/2019 8:11 AM Note Text: ANESTHESIOLOGY DAY OF SURGERY NOTE : 1970 Procedure(s) (LRB): REPAIR ACHILLES TENDON SECONDARY (Right) OSTECTOMY CALCANEUS SPUR W/ OR W/O PLANTAR FASCIAL RELEASE (Right) FASCIOTOMY FOOT AND/OR TOE (Right) NEUROLYSIS OF FOOT (Right) Surgeon(s): Joe Gaitan Estimated body mass index is 40.24 kg/m? as calculated from the following: Height as of 10/27/19: 157.5 cm (5' 2 ). Weight as of 10/27/19: 99.8 kg (220 lb). Most recent hematocrit and potassium results: Hematocrit 38.9 04/07/2019 Potassium 4.4 04/07/2019 Relevant Problems ANESTHESIA (+) NNEKA (obstructive sleep apnea) CARDIO (+) DVT (deep venous thrombosis) (HCC) (+) Hypertension, essential GI (+) GERD (gastroesophageal reflux disease) NEURO-PSYCH (+) Seizures (HCC) PULMONARY (+) Mild intermittent asthma without complication (+) NNEKA (obstructive sleep apnea) I - PHYSICAL EVALUATION AIRWAY Patient intubated: No. Tracheostomy tube not present Mallampati: II. TM distance: <3 FB. Neck ROM: full ROM without neurological symptoms. Mouth opening: adequate. Short neck: no. Thick neck: no DENTAL Dental findings: teeth intact. Additional exam findings: no II - ANESTHESIA PLAN ASA Score: 2 Anesthetic Plan: general Airway type: ETT The patient is not a current smoker. NPO Status: adequate Monitoring plan: standard ASA. Postoperative analgesic plan: multimodal analgesia and peripheral nerve catheter. Anesthetic Risks, Benefits, Alternatives, Personnel Discussed. Consent obtained from: patient. Patient / Surrogate agrees to blood products: blood products not planned DNR status not reviewed with patient and/or family prior to surgery. Significant changes in the patient condition since the History and Physical, not otherwise documented in primary service progress note: no. Potential Anesthesia issues that may suggest increased risk of complications or contractions to planned procedure: none. Vitals Value Taken Time BP 145/76 10/28/19 08 Pulse 70 10/28/19 08 Resp 18 10/28/19806 Temp 36.5 ?C (97.7 ?F) 10/28/19806 SpO2 99 % 10/28/19 08 Facility-Administered Medications as of 10/28/2019 Medication Dose Route Frequency - acetaminophen 1,000 mg tab(s) (TYLENOL) 1,000 mg ORAL Pre-Op Once - promethazine 12.5 mg tab(s) (PHENERGAN) 12.5 mg ORAL Pre-Op Once - lactated ringers infusion 30 mL/hr INTRAVENOUS CONTINUOUS - lidocaine 10 mg/mL (1 %) 1-2 mg injection (XYLOCAINE) 0.1-0.2 mL INTRADERMAL PRN - lactated ringers infusion 5-30 mL/hr INTRAVENOUS CONTINUOUS - ceFAZolin iv piggyback 2 g in D5W (iso-osmotic) 100 mL (ANCEF) 2 g INTRAVENOUS Pre-Op Once - scopolamine 1 mg over 3 days 1 Patch (TRANSDERM-SCOP) 1 Patch TRANSDERMAL q 72 HR And - [START ON 10/31/2019] scopolamine - REMOVE PATCH OTHER q 72 HR And - scopolamine - VERIFY patch OTHER q 8 H - ropivacaine (PF) 1,500 mg in empty bag Total Volume 750 mL (NAROPIN) PERIPHERAL NERVE CATHETER CONTINUOUS Outpatient Medications as of 10/28/2019 Medication Sig - ferrous sulfate 325 mg (65 mg iron) tablet Take 1 tablet by mouth daily with breakfast. - metoprolol succinate ER (TOPROL XL) 25 mg 24 hr tablet Take 1 tablet by mouth daily at bedtime. FOR blood pressure - cholecalciferol (VITAMIN D3) 2,000 unit tablet Take 1 tablet by mouth once daily. - Omeprazole 40 mg capsule Take 1 capsule by mouth once daily. - rOPINIRole (REQUIP) 4 mg tablet Take 1 tablet by mouth daily at bedtime. - cetirizine (ZYRTEC) 10 mg tablet Take 1 tablet by mouth once daily. - Hydrochlorothiazide 12.5 mg capsule Take 1 capsule by mouth once daily. (Patient not taking: Reported on 10/27/2019 ) - ondansetron orally disintegrating (ZOFRAN ODT) 4 mg disintegrating tablet Take 1 tablet by mouth every 6 hours as needed for Nausea/Vomiting. - buPROPion XL (WELLBUTRIN XL) 150 mg 24 hr tablet Take 1 tablet by mouth daily with breakfast. (Patient not taking: Reported on 10/27/2019 ) - fluticasone (FLOVENT HFA) 110 mcg/actuation inhaler Inhale 1 Puff as instructed twice daily. Rinse mouth after using. - albuterol (PROVENTIL) 2.5 mg /3 mL (0.083 %) nebulizer solution Use 3 mL via nebulizer every 4 hours as needed for Wheezing/Shortness of Breath. Use over 5-15minutes. Dx: R05, J41.1 - Nebulizers 1 Each as directed. Dx: wheezing, recurrent acute bronchitis, - Nebulizer Accessories misc 1 Each as directed. Dx: wheezing, recurrent acute bronchitis, Tubing and mask for nebulizer - albuterol HFA (PROAIR HFA) 90 mcg/actuation inhaler Inhale 2 Puffs as instructed every 4 hours as needed. - L.acidoph-B.lactis-B.lo ngum (FLORAJEN3) 460 mg (7.5-6- 1.5 bill. cell) cap Take 1 capsule by mouth once daily. - COMPOUNDED PRESCRIPTION Support socks 10-20 mmHg # one pair Dx: 453.40 and 782.3 I have interviewed and examined the patient. I have reviewed the medical record and/or the pre-anesthesia evaluation, pertinent labs, and test results. This contains updated information obtained within 48 hours of Surgery/Procedure. SIGNATURE: Herb Altamirano MD PATIENT NAME: Ning Ann DATE: October 28, 2019 TIME: 8:11 AM CSN: [id number] [facility] NURSING PROGon 10-28-2019 NURSING PROG HNO ID: [id number] Author: Mary (Rn) YOLIE Coats Service: Nursing Author Type: Registered Nurse Type: Nursing Progress Note Filed: 10/28/2019 4:01 PM Note Text: Nursing Progress Note Topic of Note: PACU Ning Ann [id number] Pt having pain when waking up in PACU. Medicated per MAY. Dr. Altamirano notified. He removed initial pain catheter and attempted to reinsert right popliteal nerve catheter without success- pt's pain not relieved. Dr. Tripathi came and reinserted nerve block catheter with pt having good relief of pain. This note was completed by: Mary Coats RN [facility] OPERATIVE NOon 10-28-2019 OPERATIVE NO HNO ID: [id number] Author: Joe Gaitan Service: Orthopaedic Surgery Author Type: Physician Type: Operative Report Filed: 10/28/2019 7:33 PM Note Text: OPERATIVE REPORT LOG ID: [id number] Surgery Date: 10/28/2019 Incision/Procedure Start Time: 9:42 AM Incision Close/Procedure End Time: 12:05 PM Procedure Performed: Procedure(s) (LRB): REPAIR ACHILLES TENDON SECONDARY (Right) Posterior calcaneal exostectomy Excision of Wolf's deformity TENO synovectomy of Achilles tendon Pre-Achilles bursectomy Surgeon monitored fluoroscopy Second procedure with repositioning and second incision OSTECTOMY INFERIOR CALCANEUS SPUR W/ OR W/O PLANTAR FASCIAL RELEASE (Right) Partial plantar fasciectomy NEUROLYSIS OF FOOT (Right), decompression first branch lateral plantar nerve Surgeon(s)/Proceduralis t(s) and Candle Wicker(s): Surgeon(s) and Role: * Joe Gaitan - Primary Physician Candle Wicker: Shanae Bryant; was essential in patient positioning, surgical exposure, bony resections, tendon repair, surgical debridement, utilizing fluoroscopy, surgical closure, postoperative bandaging and splinting. Denise Fung) [place] Anesthesia: General Estimated Blood Loss: 0 ml Drains: None Specimen: Plantar fascia, heel spur inferior calcaneus and posterior calcaneus Complications: None IMPLANTS: Implant Name Type Inv. Item Serial No. Printing Machinist Lot No. LRB No. 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 Sign in was performed with the operative team. Prophylactic IV antibiotics were administered. The patient was brought to the operating room, placed upon the operating table and given an anesthetic. Following successful levels of anesthesia, she was appropriately padded, positioned and secured to the table. The surgical leg was then prepped and draped in the usual sterile fashion. An Esmarch bandage was utilized to exsanguinate the limb and tourniquet raised on the thigh to 300 mmHg. We began with the patient in a prone position. An incision was made along the lateral border of the Achilles increasing the size of the skin bridge for planned second incision. Dissection was carried through skin and subcutaneous tissue through the peritenon which was inflammatory therefore a Maura synovectomy was performed. A complete pre-Achilles bursectomy was then performed. We then peeled off the Achilles tendon beginning from the lateral incision directly on the spur beginning inferior to it and carrying the subperiosteal dissection over the top of the spur and then moving medially. We left the medial third of the Achilles attachment as were able to get to the medial border of the spur with our subperiosteal dissection. Once we had the posterior calcaneal spur completely visualized and subperiosteally dissected we remove this with a saw and osteotome and then smoothed the back of the calcaneus appropriately. We used a motorized wraps for this. We then excised the Wolf's deformity and made sure that there was no pressure that could be on the reattached Achilles tendon. Once we resected the Wolf's deformity we smoothed and rasped and then thoroughly irrigated out our wound we checked on fluoroscopy at this point to make sure we had completely decompressed the posterior and superior calcaneus. We then repaired the Achilles tendon back to the posterior calcaneus using two 4.5 bio absorbable Arthrex anchors. Once we had a good stable repair and were quite satisfied with the we irrigated 1 more time we placed amniotic tissue over the Achilles repair then closed the peritenon with a 4-0 Vicryl suture the subcutaneous tissue was closed with the same and the skin was closed with 4-0 nylon. We placed a sterile bandage released the tourniquet and then brought in a second operating room table and transferred the patient to a prone position on the second operating room table we then remove the first operating room table. We sent to the table in the room under the lights appropriately we padded position and secured the patient appropriately. Second procedure; We brought the fluoroscopy unit back in and we marked the area of the inferior calcaneal spur and a line on the posterior aspect of the medial malleolus. At the junction of the medial and plantar skin we made an incision then which began at this line which is equal to where the spur was and we did go posterior to the line behind the vertical from the medial malleolus posterior border. This incision was continued approximately 2 and half to 3 cm distally dissecting then through skin and subcutaneous tissue and identifying the very thickened plantar fascia. We then bluntly dissected on the plantar surface of the plantar fascia and were able to get from medial to lateral and placed a nice retractor to protect there we then incised the superficial side of the abductor fascia and then dissected the musculature off of this and then dissected down the deep side of the plantar fascia we placed a Troy clamp on this and incised the plantar fascia distal to the Deidre clamp we then worked to subperiosteally dissect back to the origin of the plantar fascia identifying the spur and then subperiosteally dissecting the plantar fascia off of the inferior calcaneus we then removed the large segment of the plantar fascia we identified the inferior calcaneal spur confirmed this on fluoroscopy and used an osteotome to remove this. We then smoothed and rasped the inferior aspect of the calcaneus thoroughly irrigating and making sure on fluoroscopy that we had complete resection of the inferior calcaneal spur. Once we are satisfied with the plantar fasciotomy excision of the plantar fascia and spur removal we then lifted the abductor musculature to where we could visualize the deep fascia around the abductor calluses. We made a large window in this and made sure that we had plenty room for the first branch lateral plantar nerve we with this window and a blunt hemostat we made sure that the nerve had plenty room all the way up into the tarsal tunnel. Once we thought that we had adequately decompressed the nerve we thoroughly irrigated out our wound we placed amniotic tissue deep into the wound we then closed the the deep and subcutaneous tissues with 2-0 Vicryl the skin with 4-0 nylon a sterile bulky bandage and posterior splint were applied and the patient was then transported to the recovery room in good condition The PA'S helped with all aspects of the case. Details are as noted above There was no qualified resident to assist SIGNATURE: Joe Gaitan MD PATIENT NAME: Ning Ann DATE: October 28, 2019 TIME: 7:19 PM PHONE: [phone] [facility] PT EDon 10-28-2019 PT ED HNO ID: [id number] Author: Mary (Rn) YOLIE Coats Service: Nursing Author Type: Registered Nurse Type: Patient Education Filed: 10/28/2019 3:57 PM Note Text: Info reviewed with pt and family. Copy given. Scopolamine Transdermal Patch URL of this page: http://www.nlm.nih.gov/ medlineplus/druginfo/me ds/a627417.html Why is this medication prescribed? Scopolamine is used to prevent nausea and vomiting caused by motion sickness. This medication is sometimes prescribed for other uses; ask your doctor or pharmacist for more information. How should this medicine be used? Scopolamine comes as a patch to be placed on the skin behind your ear. Apply one patch to a clean, dry, hairless area behind the ear. The patch should be applied at least 4 hours before its effects will be needed. Each patch is good for 3 days. Follow the directions on your prescription label carefully, and ask your doctor or pharmacist to explain any part you do not understand. Use the scopolamine patch exactly as directed. To apply the patch, follow the directions provided by the public health nutritionist and these steps: 1. After washing the area behind the ear, wipe the area with a clean, dry tissue to ensure that the area is dry. 2. Remove the patch from its protective pouch. To expose the adhesive surface of the patch, the clear plastic protective strip should be peeled off and discarded. Contact with the exposed adhesive layer should be avoided to prevent contamination of fingers with scopolamine. Temporary blurred vision and dilation of the pupils may result if scopolamine comes into contact with your eyes. 3. Place the adhesive side against the skin. 4. Press the patch firmly for 10 to 20 seconds. Be sure that the edges adhere to your skin. 5. After you have placed the patch behind your ear, wash your hands thoroughly. At the end of 3 days, or when the scopolamine patch is no longer needed, (usually the day after surgery) remove the patch and throw it away. Wrap the patch in tissue or paper to avoid exposing anyone else to the remaining medication. Wash your hands and the area behind your ear thoroughly to remove any traces of scopolamine from the area. If a new patch needs to be applied, place a fresh patch on the hairless area behind your other ear. What special precautions should I follow before using scopolamine patches? tell your doctor and pharmacist if you are allergic to scopolamine or any other drugs. tell your doctor and pharmacist what prescription and nonprescription medications you are taking, especially medications that decrease mental alertness; cough, cold, and allergy products; and vitamins. tell your doctor if you have or have ever had glaucoma; heart, liver, or kidney disease; stomach or intestinal obstruction; or difficulty urinating. tell your doctor if you are , plan to become , or are breast-feeding. If you become while using scopolamine patches, call your doctor immediately. if you are having surgery, including dental surgery, tell the doctor or dentist that you are using scopolamine patches. you should know that this drug may make you drowsy. Do not drive a car or operate machinery until you know how scopolamine patches will affect you. This is especially important during the first 3 to 5 days of therapy and when your dose is increased. talk to your doctor about the safe use of alcohol while taking this drug. Alcohol increases the side effects caused by scopolamine patches. What should I do if I forget a dose? Apply the missed patch as soon as you remember it. Do not apply more than one patch at a time. What side effects can this medication cause? Scopolamine patches may cause side effects. Tell your doctor if any of these symptoms are severe or do not go away: drowsiness disorientation dry mouth blurred vision dilated pupils confusion hallucinations difficulty urinating rash If you experience any of the following symptoms, remove the patch and call your doctor immediately: eye pain dizziness rapid pulse What should I know about storage and disposal of this medication? Keep this medication in the container it came in, tightly closed, and out of reach of children. Store it at room temperature and away from excess heat and moisture (not in the bathroom). Throw away any medication that is outdated or no longer needed. Talk to your pharmacist about the proper disposal of your medication. In case of emergency/overdose In case of overdose, call your local poison control center at . If the victim has collapsed or is not breathing, call local emergency services at 110. What other information should I know? Keep all appointments with your doctor and the laboratory. The patch is not affected by limited exposure to water during bathing or swimming. Do not let anyone else use your medication. Ask your pharmacist any questions you have about refilling your prescription. It is important for you to keep a written list of all of the prescription and nonprescription (lxfk-opj-aujhlum) medicines you are taking, as well as any products such as vitamins, minerals, or other dietary supplements. You should bring this list with you each time you visit a doctor or if you are admitted to a hospital. It is also important information to carry with you in case of emergencies. Brand names Transderm Scop? Other names Transdermal scopolamine AHFS? Consumer Medication Information. ? Copyright, 2014. The [employer] [address] [facility], [place], [place]. All Rights Reserved. Duplication for commercial use must be authorized by [facility]. Patient/ family Nurse Date/ time [facility] PT ED HNO ID: [id number] Author: Mary (Rn) Pauly RN Service: Nursing Author Type: Registered Nurse Type: Patient Education Filed: 10/28/2019 3:57 PM Note Text: PATIENT EDUCATION TOPIC: PROCEDURE / SURGERY: Post Procedure Teaching: Med Administration, Symptom Management, Wound Care, and CADD pump PATIENT NAME: Ning Ann PATIENT LOCATION: ASC POOL/ ASC POOL READINESS TO LEARN COGNITIVE ABILITY: Alert and oriented MOTIVATION TO LEARN: Eager FAMILY SUPPORT: High - Very involved in pt care INSTRUCTION PROVIDED TO: Patient and family member PATIENT LEARNS BEST BY: Individual Instruction Written Instruction - Hand-outs Verbal Instruction Demonstration Videos FACTORS AFFECTING LEARNING: None PHYSICAL LIMITATIONS AFFECTING LEARNING: None LEARNING RESPONSE DIAGNOSIS: ADULT: POST OP recovery PATIENT/FAMILY RESPONSE: Verbalizes understanding of: MEDICAL REGIMEN-Importance of following prescribed medical regimen MEDICATION PRESCRIBED-Accurate knowledge of prescribed medication prior to discharge PAIN MANAGEMENT-Effective strategies to manage pain in addition to pain medication PHYSICAL RESTRICTIONS-Physical restrictions and recommendations after discharge from the hospital POST-OPERATIVE INSTRUCTIONS-Correct actions to take to reduce postoperative complications PATIENT SAFETY PRINCIPLES SYMPTOM MANAGEMENT-Correct actions to take to manage symptoms associated with his/her disease/illness WORSENING CONDITION-Signs and symptoms of a worsening condition that warrant a call to the physician WOUND CARE-Correct procedure to perform wound care METHOD OF INSTRUCTION: Teach Back CADD pump Individual instruction Written instruction - handouts Verbal instruction Demonstration-Hands on Learning FOLLOW-UP PLAN: Patient instructed to call with any further issues, follow up appointment with surgeon. INSTRUCTIONAL AIDS USED: CADD pump written instructions. SUPPLEMENTAL MATERIAL PROVIDED TO PATIENT: None REFERRAL (RECOMMENDATION): None Electronically Signed By: Mary Coats, YOLIE [facility] SURGICAL PATHOLOGYon 020 SURGICAL PATHOLOGY Specimen originated from [facility] Specimen #: [id number] Submitting Physician: Joe Gaitan M.D. FINAL DIAGNOSIS Bone and soft tissue, right plantar fascia and right heel, excision - Osteocartilaginous tissue with degenerative changes, clinically heel spur. - Fibrotendinous tissue with reactive changes. KAMALA/JGONZALO/[facility] 11/03/2019 Mahad Gomez MD (Electronic Signature) SPECIMEN SUBMITTED A: RIGHT PLANTAR FASCIA AND RIGHT HEEL SPUR CLINICAL DATA WOLF'S DEFORMITY, RIGHT; HEEL SPUR, RIGHT; PLANTAR FASCIAL FIBROMATOSIS OF RIGHT FOOT RIGHT ACHILLES TENDON TENOSYNOVECTOMY, POSTERIOR CALCANEAL SPUR EXCISION; EXCISION OF WOLF DEFORMITY, RIGHT PLANTAR FASCIOTOMY; EXCISION OF INFERIOR CALCANEAL SPUR GROSS DESCRIPTION A. Received in formalin designated right plantar fascia and heel spur are multiple segments of white rubbery and fibrofatty tissue, which aggregate to 4.2 x 1.7 x 0.8 cm. Sectioning and palpation reveal multiple fragments of unremarkable bone present, which aggregate to 1.5 x 1 x 0.4 cm. [employer] sections are submitted as follows: A1 soft tissue, A2 bone submitted after decalcification. /[facility] 10/29/2019 Gross examination performed at [facility], [address] [place] [address] Date of Report: 11/03/2019 Date of Procedure: 10/28/2019 Date of Receipt: 10/29/2019 Submitted by: Joe Gaitan M.D. Location: [facility] Diagnostic interpretation performed at [facility], [address] [place] [address]. CLIA Number: [id number] [facility] PT EDon 10-27-2019 PT ED HNO ID: [id number] Author: Hortensia (Rn) YOLIE Palacios Service: Nursing Author Type: Registered Nurse Type: Patient Education Filed: 10/27/2019 9:37 AM Note Text: During pre-op phone call patient was educated on nerve block procedure, use of crutches, non-weight bearing status, and to have a support person available for at least 24 hours after procedure. Patient states marcella Palacios RN [facility] HOSPon 10-21-2019 HOSP Patient:Kaylin Ann MRN: Height:5' 2 [pt rpt[(1.575 m) Weight:220 lb (99.791 kg) Outpatient Medications as of 10/28/19: acetaminophen (TYLENOL) 325 mg tablet oxyCODONE IR (ROXICODONE) 5 mg immediate release tablet cephALEXin (KEFLEX) 500 mg capsule valACYclovir (VALTREX) 500 mg tablet Magnesium 30 mg tablet enoxaparin (LOVENOX) 40 mg/0.4 mL cetirizine (ZYRTEC) 10 mg tablet ferrous sulfate 325 mg (65 mg iron) tablet metoprolol succinate ER (TOPROL XL) 25 mg 24 hr tablet DULoxetine (CYMBALTA) 30 mg capsule Hydrochlorothiazide 12.5 mg capsule ondansetron orally disintegrating (ZOFRAN ODT) 4 mg disintegrating tablet buPROPion XL (WELLBUTRIN XL) 150 mg 24 hr tablet fluticasone (FLOVENT HFA) 110 mcg/actuation inhaler cholecalciferol (VITAMIN D3) 2,000 unit tablet albuterol (PROVENTIL) 2.5 mg /3 mL (0.083 %) nebulizer solution Nebulizers Nebulizer Accessories misc Omeprazole 40 mg capsule albuterol HFA (PROAIR HFA) 90 mcg/actuation inhaler rOPINIRole (REQUIP) 4 mg tablet L.acidoph-B.lactis-B.lo ngum (FLORAJEN3) 460 mg (7.5-6- 1.5 bill. cell) cap COMPOUNDED PRESCRIPTION Admission/Clinic Administered Medications as of 10/28/19: lactated ringers infusion lidocaine 10 mg/mL (1 %) 1-2 mg injection (XYLOCAINE) lactated ringers infusion ceFAZolin iv piggyback 2 g in D5W (iso-osmotic) 100 mL (ANCEF) scopolamine 1 mg over 3 days 1 Patch (TRANSDERM-SCOP) scopolamine - REMOVE PATCH scopolamine - VERIFY patch ropivacaine (PF) 1,500 mg in empty bag Total Volume 750 mL (NAROPIN) Problem List: Anxiety state [F41.1] Moderate single current episode of major depressive disorder (HCC) [F32.1] Other and unspecified hyperlipidemia [E78.5] Obesity [E66.9] Suicidal attempted [] Fibromyalgia [M79.7] IBS (irritable bowel syndrome) [K58.9] GERD (gastroesophageal reflux disease) [K21.9] Colon polyps [K63.5] Vertigo [R42] RLS (restless legs syndrome) [G25.81] Wolf's deformity, 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] DVT (deep venous thrombosis) ([facility]) [I82.409] Mood swings [R45.86] Urinary, incontinence, stress female [N39.3] Trigeminal neuralgia of right side of face [G50.0] PTSD (post-traumatic stress disorder) [F43.10] Chronic pain syndrome [G89.4] Depressive disorder [F32.9] GERD with esophagitis [K21.0] Hypertension, essential [I10] Heel spur, right [M77.31] Intractable right heel pain [M79.671] Plantar fasciitis of right foot [M72.2] Left cervical radiculopathy [M54.12] Dyspepsia [R10.13] Mild intermittent asthma without complication [J45.20] Seizures (HCC) [R56.9] NNEKA (obstructive sleep apnea) [G47.33] Obesity, Class III, BMI >= 40 [E66.01] Allergies: Atorvastatin Coumadin [Warfarin Sodium] Dilaudid [Hydromorphone (Bulk)] Lyrica [Pregabalin] Miconazole Savella [Milnacipran] Xarelto [Rivaroxaban] Date Verified: 10/28/19 Lab Values No results within the last 30 days for the following basenames: K,HCT Progress Notes ([facility]): Simi Yousif, RN, RN 10/27/2019 4:14 PM Signed [facility] pharmacy called They received the prescription for Toradol, to be given after the procedure on 10/27 This medication can only be prescribed as a continuation of therapy Will patient be given either IV or IM toradol during the procedure? Pharmacy [phone] Dottie Bell RN 10/27/2019 4:32 PM Signed I spoke with the pharmacy, all questions answered. Dottie Bell RN Progress Notes ([facility]): Sánchez Pelletier APRN.CNP 10/21/2019 9:52 PM Signed The following approved medication requests have been transmitted electronically. Signed Prescriptions Disp Refills cetirizine (ZYRTEC) 10 mg tablet 90 tablet 3 Sig: Take 1 tablet by mouth once daily. DELMY: No Sánchez Pelletier APRN.[facility] XR FOOT 3V AP/LAT/OBL RTon 0 10-27-2018 XR FOOT 3V AP/LAT/OBL RT * * *Final Report* * * DATE OF EXAM: Oct 27 2018 4:15PM LDX 5337 - XR FOOT 3V AP/LAT/OBL RT / PROCEDURE REASON: Bone pain, foot * * * * Physician Interpretation * * * * EXAM TITLE: XR FOOT 3V AP/LAT/OBL RT DATE: 10/27/2018 INDICATION: Right foot pain COMPARISON: None. FINDINGS: There is no fracture or dislocation. Joint spaces and soft tissues appear normal. IMPRESSION: Within normal limits. Plant Tour Guide: PSCB Transcribe Date/Time: Oct 27 2018 4:20P Dictated by : JUVENTINO COLIN MD This examination was interpreted and the report reviewed and electronically signed by: JUVENTINO COLIN MD on Oct 27 2018 4:21PM [facility] Vital Signs Date Time Vital Sign Value Performing Clinician Facility 12-05-2023 10:28040 Body mass index (BMI) [Ratio] 33.55 kg/m2 Mark Tate MD Work Phone: [facility] 12-05-2023 10:28040 Body temperature 96.91 [degF] Mark Tate MD Work Phone: [facility] 12-05-2023 10:28040 Body weight 83.2 kg Mark Tate MD Work Phone: [facility] 12-05-2023 10:28040 Diastolic blood pressure 72 mm[Hg] Mark Tate MD Work Phone: [facility] 12-05-2023 10:28-0400 Heart rate 66 /min Mark Tate MD Work Phone: [facility] 12-05-2023 10:28-0400 Respiratory rate 16 /min Mark Tate MD Work Phone: [facility] 12-05-2023 10:28-0400 SaO2% (BldA) [Mass fraction] 97 % Mark Tate MD Work Phone: [facility] 12-05-2023 10:28-0400 Systolic blood pressure 110 mm[Hg] Mark Tate MD Work Phone: [facility] 08-21-2023 14:49-0400 Body mass index (BMI) [Ratio] 33.84 kg/m2 Tang Olguin DO Work Phone: [facility] 08-21-2023 14:49-0400 Body temperature 97 [degF] Tang Olguin DO Work Phone: [facility] 08-21-2023 14:49-0400 Body weight 83.92 kg Tang Olguin DO Work Phone: [facility] 08-21-2023 14:49-0400 Diastolic blood pressure 60 mm[Hg] Tang Olguin DO Work Phone: [facility] 08-21-2023 14:49-0400 Heart rate 64 /min Tang Olguin DO Work Phone: [facility] 08-21-2023 14:49-0400 Respiratory rate 12 /min Tang Olguin DO Work Phone: [facility] 08-21-2023 14:49-0400 Systolic blood pressure 110 mm[Hg] Tang Olguin DO Work Phone: [facility] 2023 10:40-0400 Body temperature 97.39 [degF] Agapito Athy PA-C Work Phone: [facility] 2023 10:40-0400 Body weight 85 kg Agapito Athy PA-C Work Phone: [facility] 2023 10:40-0400 Diastolic blood pressure 86 mm[Hg] Agapito Athy PA-C Work Phone: [facility] 2023 10:40-0400 Heart rate 62 /min Agapito Athy PA-C Work Phone: [facility] 2023 10:40-0400 Respiratory rate 20 /min Agapito Athy PA-C Work Phone: [facility] 2023 10:40-0400 SaO2% (BldA) [Mass fraction] 100 % Agapito Athy PA-C Work Phone: [facility] 2023 10:40-0400 Systolic blood pressure 134 mm[Hg] Agapito Athy PA-C Work Phone: [facility] 04-13-2023 09:36-0500 Body temperature 97 [degF] Krislyn Aberegg PA Work Phone: [facility] 04-13-2023 09:36-0500 Body weight 86.82 kg Krislyn Aberegg PA Work Phone: [facility] 04-13-2023 09:36-0500 Diastolic blood pressure 84 mm[Hg] Krislyn Aberegg PA Work Phone: [facility] 04-13-2023 09:36-0500 Heart rate 63 /min Krislyn Aberegg PA Work Phone: [facility] 04-13-2023 09:36-0500 Respiratory rate 18 /min Krislyn Aberegg PA Work Phone: [facility] 04-13-2023 09:36-0500 SaO2% (BldA) [Mass fraction] 98 % Krislyn Aberegg PA Work Phone: [facility] 04-13-2023 09:36-0500 Systolic blood pressure 144 mm[Hg] Krislyn Aberegg PA Work Phone: [facility] 11-09-2022 11:11-0400 Body height 157.4 cm Kristal Recinos MD Work Phone: [facility] 11-09-2022 11:11-0400 Body mass index (BMI) [Ratio] 36.73 kg/m2 Kristal Recinos MD Work Phone: [facility] 11-09-2022 11:11-0400 Body weight 91 kg Kristal Recinos MD Work Phone: [facility] 10-10-2022 11:56-0400 Body temperature 98.01 [degF] Tang Olguin DO Work Phone: [facility] 10-10-2022 11:56-0400 Body weight 92.99 kg Tang Olguin DO Work Phone: [facility] 10-10-2022 11:56-0400 Diastolic blood pressure 80 mm[Hg] Tang Olguin DO Work Phone: [facility] 10-10-2022 11:56-0400 Heart rate 64 /min Tang Olguin DO Work Phone: [facility] 10-10-2022 11:56-0400 Respiratory rate 16 /min Tang Olguin DO Work Phone: [facility] 10-10-2022 11:56-0400 Systolic blood pressure 120 mm[Hg] Tang Olguin DO Work Phone: [facility] 06-30-2022 09:11-0400 Body height 157.[address] Work Phone: [facility] 06-30-2022 09:11-0400 Body weight 102.[address] Work Phone: [facility] 06-09-2022 10:36-0400 Body height 157.[address] [facility] 06-09-2022 10:36-0400 Body weight 105.[address] [facility] 05-31-2022 08:55-0400 Body temperature 97.11 [degF] Treatment Work Phone: [facility] 05-31-2022 08:55-0400 Diastolic blood pressure 76 mm[Hg] Treatment Work Phone: [facility] 05-31-2022 08:55-0400 Heart rate 74 /min Treatment Work Phone: [facility] 05-31-2022 08:55-0400 Respiratory rate 18 /min Treatment Work Phone: [facility] 05-31-2022 08:55-0400 SaO2% (BldA) [Mass fraction] 97 % Treatment Work Phone: [facility] 05-31-2022 08:55-0400 Systolic blood pressure 129 mm[Hg] Treatment Work Phone: [facility] 2022 10:41-0400 Body height 157.5 cm Pacc 1 Work Phone: [facility] 2022 10:41-0400 Body temperature 98.2 [degF] Pacc 1 Work Phone: [facility] 2022 10:41-0400 Body weight 112.49 kg Pacc 1 Work Phone: [facility] 2022 10:41-0400 Diastolic blood pressure 82 mm[Hg] Pacc 1 Work Phone: [facility] 2022 10:41-0400 Heart rate 81 /min Pacc 1 Work Phone: [facility] 2022 10:41-0400 Respiratory rate 16 /min Pacc 1 Work Phone: [facility] 2022 10:41-0400 SaO2% (BldA) [Mass fraction] 99 % Pacc 1 Work Phone: [facility] 2022 10:41-0400 Systolic blood pressure 120 mm[Hg] Pacc 1 Work Phone: [facility] 03-08-2022 13:40-0500 Body height 158.5 cm Mayi Murillo MD Work Phone: [facility] 03-08-2022 13:40-0500 Body weight 110.31 kg Mayi Murillo MD Work Phone: [facility] 03-08-2022 13:40-0500 Diastolic blood pressure 81 mm[Hg] Mayi Murillo MD Work Phone: [facility] 03-08-2022 13:40-0500 Heart rate 75 /min Mayi Murillo MD Work Phone: [facility] 03-08-2022 13:40-0500 Systolic blood pressure 139 mm[Hg] Mayi Murillo MD Work Phone: [facility] 02-28-2022 13:28-0500 Body weight 111.13 kg Radha Langston MD Work Phone: [facility] 02-17-2022 09:29-0500 Body temperature 97.11 [degF] Tang Olguin DO Work Phone: [facility] 02-17-2022 09:29-0500 Body weight 112.49 kg Tang Olguin DO Work Phone: [facility] 02-17-2022 09:29-0500 Diastolic blood pressure 86 mm[Hg] Tang Olguin DO Work Phone: [facility] 02-17-2022 09:29-0500 Heart rate 64 /min Tang Olguin DO Work Phone: [facility] 02-17-2022 09:29-0500 Respiratory rate 20 /min Tang Olguin DO Work Phone: [facility] 02-17-2022 09:29-0500 Systolic blood pressure 136 mm[Hg] Tang Olguin DO Work Phone: [facility] 02-08-2022 12:54-0500 Body height 157.5 cm Tawny Cope MD Work Phone: [facility] 02-08-2022 12:54-0500 Body weight 113.4 kg Tawny Cope MD Work Phone: [facility] 02-08-2022 12:54-0500 Diastolic blood pressure 87 mm[Hg] Tawny Cope MD Work Phone: [facility] 02-08-2022 12:54-0500 Heart rate 83 /min Tawny Cope MD Work Phone: [facility] 02-08-2022 12:54-0500 SaO2% (BldA) [Mass fraction] 100 % Tawny Cope MD Work Phone: [facility] 02-08-2022 12:54-0500 Systolic blood pressure 149 mm[Hg] Tawny Cope MD Work Phone: [facility] 01-04-2022 14:46-0400 Body weight 111.13 kg Sánchez Cornelius WELDER/INSTALLER.EVALUATION MANAGER Work Phone: [facility] 01-04-2022 14:46-0400 Diastolic blood pressure 96 mm[Hg] Sánchez Cornelius WELDER/INSTALLER.EVALUATION MANAGER Work Phone: [facility] 01-04-2022 14:46-0400 Heart rate 82 /min Sánchez Cornelius WELDER/INSTALLER.EVALUATION MANAGER Work Phone: [facility] 01-04-2022 14:46-0400 Respiratory rate 16 /min Sánchez Cornelius WELDER/INSTALLER.EVALUATION MANAGER Work Phone: [facility] 01-04-2022 14:46-0400 SaO2% (BldA) [Mass fraction] 97 % Sánchez Cornelius WELDER/INSTALLER.EVALUATION MANAGER Work Phone: [facility] 01-04-2022 14:46-0400 Systolic blood pressure 124 mm[Hg] Sánchez Cornelius WELDER/INSTALLER.EVALUATION MANAGER Work Phone: [facility] 12-27-2021 10:11-0400 Body temperature 97.7 [degF] Tang Olguin DO Work Phone: [facility] 12-27-2021 10:11-0400 Body weight 110.68 kg Tang Olguin DO Work Phone: [facility] 12-27-2021 10:11-0400 Diastolic blood pressure 80 mm[Hg] Tang Olguin DO Work Phone: [facility] 12-27-2021 10:11-0400 Heart rate 80 /min Tang Olguin DO Work Phone: [facility] 12-27-2021 10:11-0400 Respiratory rate 16 /min Tang Olguin DO Work Phone: [facility] 12-27-2021 10:11-0400 Systolic blood pressure 130 mm[Hg] Tang Olguin DO Work Phone: [facility] 12-05-2021 10:54-0400 Body temperature 98.29 [degF] Silva Zurawick WELDER/INSTALLER.EVALUATION MANAGER Work Phone: [facility] 12-05-2021 10:54-0400 Body weight 109.77 kg Silva Zurfelixck WELDER/INSTALLER.EVALUATION MANAGER Work Phone: [facility] 12-05-2021 10:54-0400 Diastolic blood pressure 78 mm[Hg] Silva Zurawick WELDER/INSTALLER.EVALUATION MANAGER Work Phone: [facility] 12-05-2021 10:54-0400 Heart rate 89 /min Silva Zurawick WELDER/INSTALLER.EVALUATION MANAGER Work Phone: [facility] 12-05-2021 10:54-0400 Respiratory rate 16 /min Silva Zurawick WELDER/INSTALLER.EVALUATION MANAGER Work Phone: [facility] 12-05-2021 10:54-0400 SaO2% (BldA) [Mass fraction] 99 % Silva Patel WELDER/INSTALLER.EVALUATION MANAGER Work Phone: [facility] 12-05-2021 10:54-0400 Systolic blood pressure 132 mm[Hg] Silva Zurawick WELDER/INSTALLER.EVALUATION MANAGER Work Phone: [facility] 11-09-2021 15:58-0400 Body temperature 97.9 [degF] Tang Olguin DO Work Phone: [facility] 11-09-2021 15:58-0400 Body weight 111.13 kg Tang Olguin DO Work Phone: [facility] 11-09-2021 15:58-0400 Diastolic blood pressure 80 mm[Hg] Tang Olguin DO Work Phone: [facility] 11-09-2021 15:58-0400 Heart rate 80 /min Tang Olguin DO Work Phone: [facility] 11-09-2021 15:58-0400 Respiratory rate 20 /min Tang Olguin DO Work Phone: [facility] 11-09-2021 15:58-0400 Systolic blood pressure 130 mm[Hg] Tang Olguin DO Work Phone: [facility] 08-23-2021 09:38-0400 Body temperature 99.19 [degF] Deysi Mcfarland APRN.EVALUATION MANAGER Work Phone: [facility] 08-23-2021 09:38-0400 Body weight 109.32 kg Deysi Mcfarland APRN.EVALUATION MANAGER Work Phone: [facility] 08-23-2021 09:38-0400 Diastolic blood pressure 74 mm[Hg] Deysi Mcfarland APRN.EVALUATION MANAGER Work Phone: [facility] 08-23-2021 09:38-0400 Heart rate 114 /min Deysi Mcfarland APRN.EVALUATION MANAGER Work Phone: [facility] 08-23-2021 09:38-0400 Respiratory rate 18 /min Deysi Mcfarland APRN.EVALUATION MANAGER Work Phone: [facility] 08-23-2021 09:38-0400 SaO2% (BldA) [Mass fraction] 96 % Deysi Mcfarland APRN.EVALUATION MANAGER Work Phone: [facility] 08-23-2021 09:38-0400 Systolic blood pressure 132 mm[Hg] Deysi Mcfarland WELDER/INSTALLER.EVALUATION MANAGER Work Phone: [facility] 07-20-2021 10:25-0400 Body temperature 97.7 [degF] Parveen Mckinley WELDER/INSTALLER.EVALUATION MANAGER Work Phone: [facility] 07-20-2021 10:25-0400 Body weight 110.59 kg Parveen Mckinley WELDER/INSTALLER.EVALUATION MANAGER Work Phone: [facility] 07-20-2021 10:25-0400 Diastolic blood pressure 78 mm[Hg] Parveen Mckinley WELDER/INSTALLER.EVALUATION MANAGER Work Phone: [facility] 07-20-2021 10:25-0400 Heart rate 77 /min Parveenfrancis Sen WELDER/INSTALLER.EVALUATION MANAGER Work Phone: [facility] 07-20-2021 10:25-0400 Respiratory rate 20 /min Parveen Sen WELDER/INSTALLER.EVALUATION MANAGER Work Phone: [facility] 07-20-2021 10:25-0400 SaO2% (BldA) [Mass fraction] 98 % Parveen King WELDER/INSTALLER.EVALUATION MANAGER Work Phone: [facility] 07-20-2021 10:25-0400 Systolic blood pressure 112 mm[Hg] Parveen King WELDER/INSTALLER.EVALUATION MANAGER Work Phone: [facility] 07-08-2021 08:34-0400 Body temperature 97 [degF] Tang Olguin DO Work Phone: [facility] 07-08-2021 08:34-0400 Body weight 110.68 kg Tang Olguin DO Work Phone: [facility] 07-08-2021 08:34-0400 Diastolic blood pressure 78 mm[Hg] Tang Olguin DO Work Phone: [facility] 07-08-2021 08:34-0400 Heart rate 100 /min Tang Olguin DO Work Phone: [facility] 07-08-2021 08:34-0400 Respiratory rate 20 /min Tang Olguin DO Work Phone: [facility] 07-08-2021 08:34-0400 Systolic blood pressure 110 mm[Hg] Tang Olguin DO Work Phone: [facility] Encounters Encounter Date Encounter Type Care Provider Facility Start: 12-28-2023 End: 12-28-2023 Emergency department patient visit CIERRA EMMANUEL Facility:[facility] Start: 12-14-2023 End: 12-14-2023 Refill Tang Olguin DO Work Phone: [facility] Comment on above: Refill Request Start: 12-13-2023 End: 12-13-2023 ambulatory Tang Purdyrison DO Work Phone: [facility] [place] Comment on above: Question Refill Request Start: 12-05-2023 End: 12-05-2023 ambulatory TANG L OLGUIN Facility:[facility] Start: 12-05-2023 End: 12-05-2023 Patient encounter procedure Mark Tate MD Work Phone: [facility] Comment on above: Gwendolyn right (Prim sean Dx) Start: 12-04-2023 End: 12-04-2023 Refill Silva Lew WELDER/INSTALLER.EVALUATION MANAGER Work Phone: [facility] Comment on above: Refill Request Start: 11-12-2023 End: 11-13-2023 Refill Silva Lew WELDER/INSTALLER.EVALUATION MANAGER Work Phone: [facility] Comment on above: Refill Request Start: 10-09-2023 ambulatory Tang Woo fransisco DO Work Phone: [facility] Comment on above: Weight loss Start: 10-09-2023 Telephone encounter Tang guillermo DO Work Phone: [facility] Comment on above: Weight Problem Start: 08-22-2023 End: 08-22-2023 ambulatory TANG L OLGUIN Facility:[facility] Start: 08-21-2023 End: 08-21-2023 ambulatory TANG L OLGUIN Facility:[facility] Start: 08-21-2023 End: 08-21-2023 Patient encounter procedure Tang Olguin DO Work Phone: [facility] Comment on above: Hypoglycemia (Primar y Dx); Appetite increase; Lightheaded; Blood glucose labile; History of Bernadine-en-Y gastric bypass; Fatigue, unspecified type; IFG (impaired fasting glucose) Start: 07-01-2023 Refill Tang moody DO Work Phone: [facility] Comment on above: Refill Request Start: 06-12-2023 ambulatory Tang moody DO Work Phone: [facility] Comment on above: Need meds Start: 06-06-2023 End: 06-06-2023 ambulatory [facility] Facility:[facility] Start: 06-06-2023 End: 06-06-2023 ambulatory [facility] Facility:[facility] Start: 06-05-2023 Refill Silva Lew APRN.EVALUATION MANAGER Work Phone: [facility] Comment on above: Refill Request Start: 05-29-2023 ambulatory Tang moody DO Work Phone: [facility] [place] Comment on above: Possible blood clot in leg. Leg Swelling Start: 2023 End: 2023 ambulatory TANG OLGUIN Facility:[facility] Start: 2023 End: 2023 Patient encounter procedure Agapito Gonzalez PA-C Work Phone: [facility] Comment on above: Acute pansinusitis, recurrence not specified (Primary Dx); Otalgia of left ear Start: 04-13-2023 End: 04-13-2023 Subsequent hospital visit by physician Janel [facility] Work Phone: Radiology Comment on above: Foot pain, right [M7 9.325] Start: 04-13-2023 End: 04-13-2023 ambulatory TANG OLGUIN Facility:[facility] Start: 04-13-2023 End: 04-13-2023 Patient encounter procedure Liam SÁNCHEZ Work Phone: [facility] Comment on above: Foot pain, right (Pr imary Dx) Start: 04-05-2023 End: 04-05-2023 ambulatory TANG OLGUIN Facility:[facility] Start: 02-25-2023 End: 02-25-2023 Emergency department patient visit MARY FARFAN Facility:[facility] Start: 12-18-2022 Refill Tang moody DO Work Phone: [facility] [place] Comment on above: Refill Request Start: 12-14-2022 Telephone encounter Parveen castañeda APRN.EVALUATION MANAGER Work Phone: [facility] Comment on above: Results Start: 12-13-2022 End: 12-13-2022 ambulatory TANG OLGUIN Facility:[facility] Start: 11-09-2022 End: 11-09-2022 Subsequent hospital visit by physician Kristal Recinos MD Work Phone: [facility] Comment on above: Upper abdominal pain , unspecified; Bariatric surgery status; Abnormal findings on diagnostic imaging of other parts of digestive tract Start: 10-30-2022 AUDIT Tang Woo son Work Phone: [facility] [address] DO Work Phone: Start: 10-30-[address] Kristal Recinos Facility:[id number] Start: 10-18-2022 Telephone encounter Tang guillermo DO Work Phone: [facility] [place] Comment on above: Results Start: 10-10-2022 End: 10-10-2022 Patient encounter procedure Tang Olguin DO Work Phone: [facility] [place] Comment on above: Fatigue, unspecified type (Primary Dx); Nausea; RUQ abdominal pain; Common bile duct dilation; History of Bernadien-en-Y gastric bypass Start: 10-02-2022 ambulatory Tang moody DO Work Phone: [facility] Comment on above: Abdominal Pain Start: 09-25-2022 Telephone encounter Mayi Murillo MD Work Phone: General Surgery Comment on above: Patient Update; Michelle ent Question Start: 09-08-2022 Chart abstracting Edin Macho glen MURRAY Work Phone: General Surgery Comment on above: Refill Request Start: 09-06-2022 Refill Tang moody DO Work Phone: [facility] [place] Comment on above: Refill Request Start: 08-23-2022 Orders Only Leonel Freeman MD Work Phone: General Surgery Start: 07-20-2022 Refill Silva Lew WELDER/INSTALLER.EVALUATION MANAGER Work Phone: [facility] [place] Comment on above: Refill Request Start: 07-19-2022 Refill Silva Lew WELDER/INSTALLER.EVALUATION MANAGER Work Phone: [facility] [place] Comment on above: Refill Request Start: 07-03-2022 End: 07-03-2022 ambulatory Mayi Murillo MD Work Phone: General Surgery Comment on above: History of Bernadine-en-Y gastric bypass (Primary Dx) Start: 07-03-2022 End: 07-03-2022 Telemedicine consultation with patient Mayi Murillo MD Work Phone: [facility] Start: 06-30-2022 End: 06-30-2022 ambulatory Edin Sanchezaparna MURRAY Work Phone: General Surgery Comment on above: Class 3 obesity (HCC ) (Primary Dx); Dietary counseling and surveillance; Impaired intestinal absorption; S/P gastric bypass Start: 06-30-2022 End: 06-30-2022 Telemedicine consultation with patient Edin Sanchezaparna MURRAY Work Phone: [facility] Start: 06-28-2022 Telephone encounter Tang carreonvishal DO Work Phone: [facility] [place] Comment on above: Results Start: 06-12-2022 Telephone encounter Celina Mendoza RN General Surgery Comment on above: Follow Up Start: 06-09-2022 Telephone encounter Mayi Murillo MD Work Phone: General Surgery Comment on above: Patient Update Multiple Concerns Start: 06-09-2022 End: 06-09-2022 Admission to same day surgery center Dottie Ray RD Endocrinology BMI Comment on above: Bariatric surgery [facility] (Primary Dx); Dietary counseling and surveillance; Morbid obesity (HCC) Start: 06-09-2022 End: 06-09-2022 Telemedicine consultation with patient Dottie Ray RD [facility] Start: 06-07-2022 End: 06-07-2022 Admission to same day surgery center Fellow mandy Main Work Phone: General Surgery Comment on above: Bariatric surgery [facility] (Primary Dx) Start: 06-07-2022 End: 06-07-2022 Telemedicine consultation with patient Fellow Geovany Main Work Phone: [facility] Start: 06-05-2022 Telephone encounter Mayi Murillo MD Work Phone: General Surgery Comment on above: Patient Update Follow Up Start: 05-31-2022 End: 05-31-2022 Orders Only Mayi Murillo MD Work Phone: General Surgery Comment on above: S/P gastric bypass ( Primary Dx); Post-operative state Start: 05-30-2022 Telephone encounter Celina Mendoza RN General Surgery Comment on above: Follow Up Start: 05-29-2022 Telephone encounter Celina Mendoza RN General Surgery Comment on above: Post Op Start: 05-25-2022 Telephone encounter Celina Mendoza RN General Surgery Comment on above: Pre-Op Teaching Start: 2022 End: 2022 ambulatory Mayi Murillo MD Work Phone: General Surgery Comment on above: Morbid obesity with BMI of 45.0-49.9, adult (HCC) (Primary Dx); NNEKA (obstructive sleep apnea); Gastroesophageal reflux disease, unspecified whether esophagitis present; VTE (venous thromboembolism); Essential (primary) hypertension Start: 2022 End: 2022 Telemedicine consultation with patient Mayi Murillo MD Work Phone: [facility] Start: 2022 End: 2022 PAT Pacc [facility] 1 Work Phone: Pre Anesthesia Comment on above: Pre-operative examin ation (Primary Dx); Way's esophagus with dysplasia; Depressive disorder; Deep vein thrombosis (DVT) of proximal vein of left lower extremity, unspecified chronicity (HCC); Hypertension, essential; Mild intermittent asthma without complication; NNEKA (obstructive sleep apnea); Pancreatic insufficiency; RLS (restless legs syndrome); Seizures (HCC) Start: 2022 End: 2022 Preprocedural examination done Pac [place] 1 Work Phone: Pre Anesthesia Start: 05-18-2022 Telephone encounter Celina Mendoza RN General Surgery Comment on above: Schedule Surgery Start: 05-03-2022 Refill Sánchez jenkins APRN.CNP Work Phone: [facility] [place] Comment on above: Refill Request Start: 05-02-2022 ambulatory Mayi Murillo MD Work Phone: General Surgery Comment on above: 05/28/2022Sunday PSE UDO DATE Start: 04-26-2022 ambulatory Tang Woo son DO Work Phone: Internal Medicine [facility] Start: 04-07-2022 ambulatory Tang Woo son DO Work Phone: [facility] [place] Comment on above: Chest Pain Start: 03-29-2022 End: 03-29-2022 Patient encounter procedure Mesha Villarreal RD Work Phone: General Surgery Comment on above: No-show for appointm ent (Primary Dx) Start: 03-29-2022 End: 03-29-2022 Telemedicine consultation with patient Mesha Saraviacandy MURRAY Work Phone: [facility] Start: 03-22-2022 End: 03-22-2022 ambulatory CHARLIE DRAPER Facility:[facility] Start: 03-17-2022 Refill Tang Woo son DO Work Phone: [facility] [place] Comment on above: Refill Request Start: 03-08-2022 End: 03-08-2022 Patient encounter procedure Mayi Murillo MD Work Phone: General Surgery Comment on above: Obesity, Class III, BMI 40-49.9 (morbid obesity) ([facility]) (Primary Dx); Way's esophagus without dysplasia Start: 02-28-2022 End: 02-28-2022 [facility] Radha Langston MD Work Phone: General Surgery Comment on above: Weight disorder (Jillian hortensia Dx); Abnormal weight gain; Preop testing; Morbid obesity with BMI of 40.0-44.9, adult ([facility]) Start: 02-28-2022 End: 02-28-2022 Patient encounter status Radha Langston MD Work Phone: General Surgery Start: 02-24-2022 Telephone encounter Charlie montez MD Work Phone: Orthopaedics Comment on above: Schedule Surgery Start: 02-23-2022 End: 02-23-2022 Patient encounter procedure Charlie Draper MD Work Phone: Orthopaedics Comment on above: Carpal tunnel syndro me of left wrist (Primary Dx); Shoulder impingement; Chronic left shoulder pain Start: 02-17-2022 End: 02-17-2022 Subsequent hospital visit by physician Janel [facility] [place] Work Phone: Radiology Comment on above: Left arm pain [M79.6 02] Start: 02-17-2022 End: 02-17-2022 Patient encounter procedure Tang Olguin DO Work Phone: [facility] Comment on above: Need for influenza v accination (Primary Dx); Left arm pain; Left hand pain; Paresthesia; Other chest pain; Subacute cough; Acute bronchitis, unspecified organism; Medication management Start: 02-08-2022 End: 02-08-2022 Patient encounter procedure Tawny Cope MD Work Phone: Rheumatology Comment on above: Multiple joint pain (Primary Dx); CRP elevated; Fibromyalgia Start: 01-26-2022 Telephone encounter Jane rangel [facility] Comment on above: Appointment Start: 01-09-2022 Telephone encounter Sánchez Ponce WELDER/INSTALLER.EVALUATION MANAGER Work Phone: [facility] [place] Comment on above: Opened In Error Start: 01-04-2022 End: 01-04-2022 Patient encounter procedure Sánchez Pelletier WELDER/INSTALLER.EVALUATION MANAGER Work Phone: [facility] [place] Comment on above: Elevated BP without diagnosis of hypertension (Primary Dx); Restless legs; Pleuritic pain; Fatigue, unspecified type; Polypharmacy; Acute cough; Cough; Chronic cough Start: 01-02-2022 Refill Tang Woo fransisco DO Work Phone: [facility] [place] Comment on above: Refill Request Start: 12-27-2021 End: 12-27-2021 Patient encounter procedure Tang Archibaldon DO Work Phone: [facility] [place] Comment on above: Subacute cough (Prim sean Dx); Acute bronchitis, unspecified organism; Multiple joint pain; CRP elevated; Pancreatic insufficiency; Hiatal hernia; Way's esophagus with dysplasia Start: 12-08-2021 Telephone encounter Silva Delmy moody WELDER/INSTALLER.EVALUATION MANAGER Work Phone: [facility] [place] Comment on above: Results Start: 12-06-2021 ambulatory Silva werner WELDER/INSTALLER.EVALUATION MANAGER Work Phone: [facility] [place] Comment on above: Question regarding C OMP METABOLIC PANEL Start: 12-05-2021 ambulatory Silva werner WELDER/INSTALLER.EVALUATION MANAGER Work Phone: [facility] [place] Comment on above: Question regarding D -DIMER Start: 12-05-2021 Telephone encounter Tang guillermo DO Work Phone: [facility] [place] Comment on above: Future Appointment ( today 12-05-21) Start: 12-05-2021 End: 12-05-2021 Subsequent hospital visit by physician Janel [facility] [place] Work Phone: Radiology Comment on above: Acute cough [R05.1] Start: 12-05-2021 End: 12-05-2021 Patient encounter procedure Silva Sweeney WELDER/INSTALLER.EVALUATION MANAGER Work Phone: [facility] [place] Comment on above: Acute cough (Primary Dx); Pleuritic pain; Vaginal yeast infection Start: 11-09-2021 End: 11-09-2021 Patient encounter procedure Tang Olguin DO Work Phone: [facility] Comment on above: Dysuria (Primary Dx) ; Muscle spasm of back; Fatigue, unspecified type; Obesity, Class III, BMI 40-49.9 (morbid obesity) ([facility]); Perimenopausal disorder; Generalized abdominal pain Start: 10-18-2021 Chart abstracting Tang carrillo DO Work Phone: [facility] [place] Start: 08-23-2021 End: 08-23-2021 Patient encounter procedure Deysi Mcfarland APRN.EVALUATION MANAGER Work Phone: [facility] Comment on above: Close exposure to [place] VID-19 virus (Primary Dx) Start: 07-20-2021 Telephone encounter Tang guillermo DO Work Phone: [facility] Comment on above: Itching Start: 07-20-2021 End: 07-20-2021 Patient encounter procedure Parveen Sen APRN.EVALUATION MANAGER Work Phone: [facility] Comment on above: Itching (Primary Dx) Start: 07-09-2021 Telephone encounter Tang guillermo DO Work Phone: [facility] [place] Comment on above: Results Start: 07-08-2021 End: 07-08-2021 Patient encounter procedure Tang Olguin DO Work Phone: [facility] Comment on above: Fatigue, unspecified type (Primary Dx); Iron deficiency; Borderline abnormal thyroid function test; Perimenopausal disorder; Situational insomnia Start: 03-18-2021 End: 03-18-2021 Subsequent hospital visit by physician Janel [facility] [place] Work Phone: Radiology Comment on above: Left hip pain [M25.5 52] Start: 02-16-2021 End: 02-16-2021 Subsequent hospital visit by physician Janel [facility] [place] Work Phone: Radiology Comment on above: Shortness of breath [R06.02] Start: 06-28-2020 End: 06-28-2020 Subsequent hospital visit by physician Janel [facility] [place] Work Phone: Radiology Comment on above: Left elbow pain [M25 .522] Start: 01-11-2011 End: 01-15-2012 Patient encounter status Tang Olguin DO Work Phone: [facility] Work Phone: Procedures Date Procedure Procedure Detail Performing Clinician Start: 04-13-2023 Radex foot complete minimum 3 views Liam SÁNCHEZ Work Phone: Start: 11-09-2022 Esophagoscopy flexible transoral ultrasound exam Provation Conversion Start: 10-17-2022 History of gastrointestinal tract bypass History of Bernadine-en-Y gastric bypass Parveen Sen APRN.EVALUATION MANAGER Work Phone: Start: 02-17-2022 Radex spine cervical 4 or 5 views Tang Olguin DO Work Phone: Start: 02-17-2022 INFLUENZA VACCINE QUADRIVALENT 6 MO - 64 YRS IM Tang Clifford Olguin DO Work Phone: Start: 12-05-2021 Radiologic exam chest 2 views Silva Lew WELDER/INSTALLER.EVALUATION MANAGER Work Phone: Start: 11-09-2021 Urnls dip stick/tablet rgnt auto w/o microscopy Tang Clifford Olguin DO Work Phone: Start: 07-29-2021 Lipid 1996 panel - Serum or Plasma Parveen Sen WELDER/INSTALLER.EVALUATION MANAGER Work Phone: Start: 03-23-2021 Mammography Tang Olguin DO Work Phone: Start: 03-18-2021 Radex hip unilateral with pelvis 2-3 views Tang Clifford Olguin DO Work Phone: Start: 02-16-2021 Radiologic exam chest 2 views Sánchez Pelletier WELDER/INSTALLER.EVALUATION MANAGER Work Phone: Start: 06-28-2020 Radex elbow complete minimum 3 views Gracie Barboza APRN.EVALUATION MANAGER Work Phone: Start: 11-23-2017 Colonoscopy Tang Olguin DO Work Phone: History of gastroint estinal tract bypass History of Bernadine-en-Y gastric bypass Tagn Olguin DO Work Phone: Plan of Treatment Date Care Activity Detail Author Start: 11-24-2027 Colonoscopy COLONOSCOPY [facility] Start: 11-24-2027 COLORECTAL CANCER SCREENING COLORECTAL CANCER SCREENING [facility] Start: 11-24-2027 Screening for malign ant neoplasm of colon [facility] Start: 01-25-2027 Urine microalbumin profile [facility] Start: 08-21-2026 [facility] Start: 07-29-2026 Lipid 1996 panel - S alek or Plasma Lipid Screening [facility] Start: 07-29-2026 Lipid panel Lipid Screening [facility] Start: 07-29-2026 LIPID SCREEN LIPID SCREEN [facility] Start: 06-05-2026 Diabetes Screening Diabetes Screenin g [facility] Start: 10-10-2025 DIABETES SCREEN DIABETES SCREEN [facility] Start: 10-10-2025 Diabetes Screening Diabetes Screenne g [facility] Start: 06-23-2025 DIABETES SCREEN DIABETES SCREEN [facility] Start: 06-05-2025 DIABETES SCREEN DIABETES SCREEN [facility] Start: 05-28-2025 DIABETES SCREEN DIABETES SCREEN [facility] Start: 2025 DIABETES SCREEN DIABETES SCREEN [facility] Start: 01-04-2025 DIABETES SCREEN DIABETES SCREEN [facility] Start: 12-05-2024 DIABETES SCREEN DIABETES SCREEN [facility] Start: 12-04-2024 BP Controlled (<130/80) BP Controlle d (<130/80) [facility] Start: 08-20-2024 Annual PCP Team Supervisor [employer] jose Disease Visit Annual PCP Team Chronic Disease Visit [facility] Start: 08-20-2024 BP Controlled (<130/80) BP Controlle d (<130/80) [facility] Start: 07-08-2024 DIABETES SCREEN DIABETES SCREEN [facility] Start: 06-05-2024 Annual PCP Team Supervisor [employer] jose Disease Visit Annual PCP Team Chronic Disease Visit [facility] Start: 06-05-2024 BP Controlled (<130/80) BP Controlle d (<130/80) [facility] Start: 02-27-2024 End: 02-27-2024 Patient encounter procedure 02/27/2024 9:40 AM EST Office Visit [facility] [place] [address] [place] [address] Tang Olguin, DO [address] [place] [address] Weight. [facility] [place] Comment on above: Weight. Start: 12-27-2023 LIPID SCREEN LIPID SCREEN [facility] Start: 11-11-2023 Covid-19 Vaccine () Covid-19 Vaccine () [facility] Start: 11-11-2023 Covid-19 Vaccine () Covid-19 Vaccine () [facility] Start: 11-11-2023 Influenza vaccination C [facility] Start: 10-11-2023 ANNUAL PCP TEAM BOARDING MOTHER JOSE DISEASE VISIT ANNUAL PCP TEAM CHRONIC DISEASE VISIT [facility] Start: 08-21-2023 End: 08-21-2023 Patient encounter procedure 08/21/2023 3:00 PM EDT Office Visit [facility] [place] [address] [place] [address] Tang Olguin DO [address] [place] [address] Low blood sugar concerns [facility] [place] Comment on above: Low blood sugar conc erns Start: 08-21-2023 End: 11-20-2023 CBC W Auto Differential panel - Blood COMPLETE BLOOD COUNT AND DIFFERENTIAL Lab Routine Lightheaded Blood glucose labile Expected: 08/21/2023, Expires: 11/20/2023 [facility] Comment on above: Expected: 08/21/2023 , Expires: 11/20/2023 Start: 08-21-2023 End: 11-20-2023 Comprehensive metabolic 2000 panel - Serum or Plasma COMPREHENSIVE METABOLIC PANEL Lab Routine Lightheaded Blood glucose labile Expected: 08/21/2023, Expires: 11/20/2023 [facility] Work Phone: Comment on above: Expected: 08/21/2023 , Expires: 11/20/2023 Start: 08-21-2023 End: 11-20-2023 Hemoglobin A1c in Blood HEMOGLOBIN A1C Lab Routine Blood glucose labile Expected: 08/21/2023, Expires: 11/20/2023 [facility] Comment on above: Expected: 08/21/2023 , Expires: 11/20/2023 Start: 08-21-2023 End: 11-20-2023 Thyrotropin [Units/volume] in Serum or Plasma THYROID STIMULATING HORMONE Lab Routine Appetite increase Expected: 08/21/2023, Expires: 11/20/2023 [facility] Comment on above: Expected: 08/21/2023 , Expires: 11/20/2023 Start: 08-21-2023 End: 11-20-2023 Thyroxine (T4) free [Mass/volume] in Serum or Plasma T4 FREE/FREE THYROXINE Lab Routine Appetite increase Expected: 08/21/2023, Expires: 11/20/2023 [facility] Comment on above: Expected: 08/21/2023 , Expires: 11/20/2023 Start: 08-21-2023 End: 11-20-2023 Triiodothyronine (T3) Free [Mass/volume] in Serum or Plasma T3, FREE Lab Routine Appetite increase Expected: 08/21/2023, Expires: 11/20/2023 [facility] Comment on above: Expected: 08/21/2023 , Expires: 11/20/2023 Start: 06-24-2023 ANNUAL PCP TEAM BOARDING MOTHER JOSE DISEASE VISIT ANNUAL PCP TEAM CHRONIC DISEASE VISIT [facility] Start: 06-24-2023 BP CONTROLLED (<130/80) BP CONTROLLE D (<130/80) [facility] Start: 02-17-2023 ANNUAL PCP TEAM BOARDING MOTHER JOSE DISEASE VISIT ANNUAL PCP TEAM CHRONIC DISEASE VISIT [facility] Start: 02-17-2023 COVID-19 VACCINE (#1) COVID-19 VACCI NE (#1) [facility] Comment on above: Postponed from 11/21 (Declined at this time) Start: 01-04-2023 ANNUAL PCP TEAM BOARDING MOTHER JOSE DISEASE VISIT ANNUAL PCP TEAM CHRONIC DISEASE VISIT [facility] Start: 12-27-2022 ANNUAL PCP TEAM BOARDING MOTHER JOSE DISEASE VISIT ANNUAL PCP TEAM CHRONIC DISEASE VISIT [facility] Start: 12-05-2022 ANNUAL PCP TEAM BOARDING MOTHER JOSE DISEASE VISIT ANNUAL PCP TEAM CHRONIC DISEASE VISIT [facility] Start: 11-10-2022 Covid-19 Vaccine ( season) Covid-19 Vaccine () [facility] Start: 11-10-2022 Influenza vaccination C [facility] Start: 11-09-2022 ANNUAL PCP TEAM BOARDING MOTHER JOSE DISEASE VISIT ANNUAL PCP TEAM CHRONIC DISEASE VISIT [facility] Start: 11-09-2022 BP CONTROLLED (<130/80) BP CONTROLLE D (<130/80) [facility] Start: 07-20-2022 BP CONTROLLED (<130/80) BP CONTROLLE D (<130/80) [facility] Start: 07-08-2022 ANNUAL PCP TEAM BOARDING MOTHER JOSE DISEASE VISIT ANNUAL PCP TEAM CHRONIC DISEASE VISIT [facility] Start: 07-08-2022 BP CONTROLLED (<130/80) BP CONTROLLE D (<130/80) [facility] Start: 03-23-2022 Mammography [facility] Start: 03-23-2022 Screening for malign ant neoplasm of breast Mammogram Screening [facility] Start: 01-04-2022 End: 03-06-2022 25-hydroxyvitamin D3 [Mass/volume] in Serum or Plasma [facility] Work Phone: Comment on above: Expected: 01/04/2022 , Expires: 03/06/2022 Start: 01-04-2022 End: 03-06-2022 C reactive protein [Mass/volume] in Serum or Plasma [facility] Work Phone: Comment on above: Expected: 01/04/2022 , Expires: 03/06/2022 Start: 01-04-2022 End: 03-06-2022 CBC panel - Blood by Automated count [facility] Work Phone: Comment on above: Expected: 01/04/2022 , Expires: 03/06/2022 Start: 01-04-2022 End: 03-06-2022 Cobalamin (Vitamin B12) [Mass/volume] in Serum or Plasma [facility] Work Phone: Comment on above: Expected: 01/04/2022 , Expires: 03/06/2022 Start: 01-04-2022 End: 03-06-2022 Comprehensive metabolic 2000 panel - Serum or Plasma [facility] Work Phone: Comment on above: Expected: 01/04/2022 , Expires: 03/06/2022 Start: 01-04-2022 End: 03-06-2022 Erythrocyte sedimentation rate [facility] Work Phone: Comment on above: Expected: 01/04/2022 , Expires: 03/06/2022 Start: 01-04-2022 End: 03-06-2022 Ferritin [Mass/volume] in Serum or Plasma [facility] Work Phone: Comment on above: Expected: 01/04/2022 , Expires: 03/06/2022 Start: 01-04-2022 End: 03-06-2022 Iron and Iron binding capacity panel - Serum or Plasma [facility] Work Phone: Comment on above: Expected: 01/04/2022 , Expires: 03/06/2022 Start: 01-04-2022 End: 03-06-2022 Thyrotropin [Units/volume] in Serum or Plasma [facility] Work Phone: Comment on above: Expected: 01/04/2022 , Expires: 03/06/2022 Start: 12-27-2021 End: 02-26-2022 Extractable nuclear Ab panel - Serum ANTI EDSON ID Lab Routine Multiple joint pain CRP elevated Expected: 12/27/2021, Expires: 02/26/2022 [facility] Work Phone: Comment on above: Expected: 12/27/2021 , Expires: 02/26/2022 Start: 12-27-2021 End: 02-26-2022 Nuclear Ab [Presence] in Serum by Immunoassay ANTOINETTE BLOOD Lab Routine Multiple joint pain CRP elevated Expected: 12/27/2021, Expires: 02/26/2022 [facility] Work Phone: Comment on above: Expected: 12/27/2021 , Expires: 02/26/2022 Start: 12-27-2021 End: 02-26-2022 Rheumatoid factor [Units/volume] in Serum or Plasma RHEUMATOID FACTOR BL Lab Routine Multiple joint pain CRP elevated Expected: 12/27/2021, Expires: 02/26/2022 [facility] Work Phone: Comment on above: Expected: 12/27/2021 , Expires: 02/26/2022 Start: 12-05-2021 End: 02-04-2022 CBC W Auto Differential panel - Blood [facility] Work Phone: Comment on above: Expected: 12/05/2021 , Expires: 02/04/2022 Start: 12-05-2021 End: 02-04-2022 Comprehensive metabolic 2000 panel - Serum or Plasma [facility] Work Phone: Comment on above: Expected: 12/05/2021 , Expires: 02/04/2022 Start: 12-05-2021 End: 02-04-2022 Fibrin D-dimer FEU [Mass/volume] in Platelet poor plasma [facility] Work Phone: Comment on above: Expected: 12/05/2021 , Expires: 02/04/2022 Start: 11-10-2021 Influenza vaccination INFLUENZA (#1) [facility] Start: 09-08-2021 SHINGRIX VACCINE (2 of 2) NEUMANN GRIX VACCINE (2 of 2) [facility] Start: 08-23-2021 End: 09-06-2021 Influenza virus A and B RNA and SARS-CoV-2 (COVID-19) N gene panel - Respiratory specimen by AYAZ with probe detection COVID WITH FLUA+B, ROUTINE Microbiology Routine Close exposure to COVID-19 virus Expected: 08/23/2021, Expires: 09/06/2021 [facility] Work Phone: Comment on above: Expected: 08/23/2021 , Expires: 09/06/2021 Start: 05-21-2021 SHINGRIX VACCINE (1 of 2) NEUMANN GRIX VACCINE (1 of 2) [facility] Start: 05-21-2021 Zoster Vaccines (1 of 2) Zoste r Vaccines (1 of 2) [facility] Start: 05-21-2016 COLOGUARD (FIT-DNA) COLOGUARD (FIT-D NA) [facility] Start: 05-21-[address] COLONOGRAPHY [facility] Start: 05-21-2016 FECAL OCCULT BLOOD FECAL OCCULT BLOO D [facility] Start: 05-21-2016 Screening for malign ant neoplasm of colon [facility] Start: 05-21-2016 SIGMOIDOSCOPY SIGMOIDOSCOPY [facility] Start: 10-31-2012 HEPATITIS B (3 of 3 - 19+ 3-dose series) HEPATITIS B (3 of 3 - 19+ 3-dose series) [facility] Start: 10-31-2012 Hepatitis B Vaccine (3 of 3 - 19+ 3-dose series) Hepatitis B Vaccine (3 of 3 - 19+ 3-dose series) [facility] Start: 08-23-2012 HEPATITIS B (3 of 3 - 3-dose series) HEPATITIS B (3 of 3 - 3-dose series) [facility] Start: 2011 Screening for malign ant neoplasm of breast Mammogram [facility] Start: 05-21-1993 DTaP/Tdap/Td Vaccine s (1 - Tdap) DTaP/Tdap/Td Vaccines (1 - Tdap) [facility] Start: 05-21-1992 Screening for malign ant neoplasm of cervix [facility] Start: 05-21-1990 ONE PNEUMOVAX PRIOR TO AGE 65 ONE PNEUMOVAX PRIOR TO AGE 65 [facility] Start: 05-21-1989 BP CONTROLLED (<130/80) BP CONTROLLE D (<130/80) [facility] Start: 05-21-1989 Hepatitis C screening Hepatitis C Sc reening [facility] Start: 05-21-1977 PNEUMOCOCCAL (1 - PCV) PNEUMOCOCCAL (1 - PCV) [facility] Start: 05-21-1977 Pneumococcal vaccination [facility] Start: 05-21-1976 COVID-19 VACCINE (#1) COVID-19 VACCI NE (#1) [facility] Start: 05-21-1976 COVID-19 VACCINE (1) COVID-19 VACCIN E (1) [facility] Start: 05-21-1972 MMR Vaccines (1 of 1 - Standard series) MMR Vaccines (1 of 1 - Standard series) [facility] Start: 1971 COVID-19 VACCINE (#1) COVID-19 VACCI NE (#1) [facility] Start: 1971 Hepatitis B Vaccines (1 of 3 - 3-dose series) Hepatitis B Vaccines (1 of 3 - 3-dose series) [facility] Start: 1971 HIV screening HIV Screening [facility] Start: 1971 Lipid panel Lipid Panel [facility] Start: 1971 Screening for malign ant neoplasm of colon [facility] Start: 1971 Yearly Adult Physical Yearly Adult P hysical [facility] CBC W Auto Different ial panel - Blood COMPLETE BLOOD COUNT AND DIFFERENTIAL Lab Routine Lightheaded Blood glucose labile 08/22/2023 9:37 AM EDT [facility] Comprehensive metabo lic 2000 panel - Serum or Plasma COMPREHENSIVE METABOLIC PANEL Lab Routine Lightheaded Blood glucose labile 08/22/2023 9:37 AM EDT [facility] End: 12-05-2022 ECG COMPLETE ECG COMPLETE ECG Routine Acute cough Pleuritic pain 1 Occurrences starting 12/05/2021 until 12/05/2022 [facility] Work Phone: Comment on above: 1 Occurrences starti ng 12/05/2021 until 12/05/2022 End: 02-17-2023 ECG COMPLETE ECG COMPLETE ECG Routine Other chest pain 1 Occurrences starting 02/17/2022 until 02/17/2023 [facility] Work Phone: Comment on above: 1 Occurrences starti ng 02/17/2022 until 02/17/2023 Hemoglobin A1c in Blood HEMOGLOB IN A1C Lab Routine Blood glucose labile 08/22/2023 9:37 AM EDT [facility] End: 05-26-2023 KAVIN SCREENING KAVIN SCREENING Radiology Routine Encounter for screening mammogram for breast cancer 1 Occurrences starting 04/26/2022 until 05/26/2023 [facility] Work Phone: Comment on above: 1 Occurrences starti ng 04/26/2022 until 05/26/2023 End: 03-19-2023 Radex spine cervical 4 or 5 views XR CERV OTHER 4V AP/LAT/OBL Radiology Routine Left arm pain Left hand pain Paresthesia 1 Occurrences starting 02/17/2022 until 03/19/2023 [facility] Work Phone: Comment on above: 1 Occurrences starti ng 02/17/2022 until 03/19/2023 Radex spine cervical 4 or 5 views XR CERV OTHER 4V AP/LAT/OBL Radiology Routine Left arm pain Left hand pain Paresthesia 02/17/2022 10:42 AM EST [facility] Work Phone: Thyrotropin [Units/v olume] in Serum or Plasma THYROID STIMULATING HORMONE Lab Routine Appetite increase 08/22/2023 9:37 AM EDT [facility] Thyroxine (T4) free [Mass/volume] in Serum or Plasma T4 FREE/FREE THYROXINE Lab Routine Appetite increase 08/22/2023 9:37 AM EDT [facility] Triiodothyronine (T3 ) Free [Mass/volume] in Serum or Plasma T3, FREE Lab Routine Appetite increase 08/22/2023 9:37 AM EDT [facility] Immunizations Immunization Date Immunization Notes Care Provider Nickie chambers 02-17-2022 influenza, injectabl e, quadrivalent, contains preservative Tang Olguin DO Work Phone: [facility] Work Phone: 02-17-2022 influenza virus vaccine, unspecified formulation Parveen Sen WELDER/INSTALLER.EVALUATION MANAGER Work Phone: [facility] 10-18-2021 zoster vaccine recombinant Tang Olguin DO Work Phone: [facility] Work Phone: 07-14-2021 zoster vaccine recombinant Parveen Mckinley WELDER/INSTALLER.EVALUATION MANAGER Work Phone: [facility] 03-18-2021 influenza, injectabl e, quadrivalent, contains preservative Tang Olguin DO Work Phone: [facility] Work Phone: 02-21-2019 measles, mumps and rubella virus vaccine Tang Olguin DO Work Phone: [facility] Work Phone: 11-10-2018 influenza virus vaccine, unspecified formulation Tang Olguin DO Work Phone: [facility] 11-10-2018 influenza, injectabl e, quadrivalent, preservative free Tang Olguin DO Work Phone: [facility] 11-10-2018 influenza, seasonal, injectable Tang Olguin DO Work Phone: [facility] 04-01-2018 tuberculin skin test ; purified protein derivative solution, intradermal Silva Lew APRN.EVALUATION MANAGER Work Phone: [facility] 01-04-2018 influenza, injectabl e, quadrivalent, preservative free Tang Olguin DO Work Phone: [facility] 01-04-2018 influenza, seasonal, injectable Tang Olguin DO Work Phone: [facility] 12-10-2017 influenza, seasonal, injectable, preservative free Tang Olguin DO Work Phone: [facility] 01-25-2017 influenza, injectabl e, quadrivalent, contains preservative Tang Olguin DO Work Phone: [facility] 01-25-2017 tetanus toxoid, redu trisha diphtheria toxoid, and acellular pertussis vaccine, adsorbed Tang Olguin DO Work Phone: [facility] 11-30-2015 influenza, seasonal, injectable, preservative free Tang Olguin DO Work Phone: [facility] 03-11-2014 influenza, seasonal, injectable, preservative free Tang Olguin DO Work Phone: [facility] 01-07-2013 tuberculin skin test ; purified protein derivative solution, intradermal Silvaneftaly Lew WELDER/INSTALLER.EVALUATION MANAGER Work Phone: [facility] 05-31-2012 hepatitis B vaccine, adult dosage Tang Olguin DO Work Phone: [facility] 05-31-2012 hepatitis B vaccine, unspecified formulation Tang Olguin DO Work Phone: [facility] 05-03-2012 hepatitis B vaccine, adult dosage Tang Olguin DO Work Phone: [facility] 01-11-2011 influenza virus vaccine, unspecified formulation Tang Olguin DO Work Phone: [facility] Work Phone: 12-27-2009 influenza virus vaccine, unspecified formulation Tang Olguin DO Work Phone: [facility] Work Phone: 12-23-2008 influenza virus vaccine, unspecified formulation Tang Olguin DO Work Phone: [facility] Work Phone: 01-02-2006 tetanus toxoid, redu trisha diphtheria toxoid, and acellular pertussis vaccine, adsorbed Tang Olguin DO Work Phone: [facility] Work Phone: Payers Date Payer Category Payer Private Health Insurance [id number] 2023 Unknown 2023 Unknown [id number] 2022 Medicaid [id number] 2021 Private Health Insurance [employer] A ETNA CHOICE POS II [id number] 2021-Present [phone] [address] [place] [address] POS [id number] 2021 Private Health Insurance [id number] 2016 Medicaid [employer] [facility] MEDICAID [id number] 2016-Present [phone] [address] [place] [address] Medicaid [id number] 2016 Medicaid [id number] 2016 Medicaid [id number] 1971 Unknown [id number] Social History Date Type Detail Facility Start: 04-12-2011 End: 12-27-2021 Tobacco smoking status NHIS Never smoked tobacco [facility] Work Phone: Start: 06-28-2020 End: 07-08-2021 Alcohol intake Current drinker of alcohol (finding) [facility] Start: 01-19-2020 End: 02-16-2022 History SDOH Alcohol Frequency 2 [facility] Start: 01-19-2020 End: 02-16-2022 History SDOH Alcohol Std Drinks 1 [facility] Start: 08-18-2016 History SDOH Alcohol Comment social [facility] Start: 08-19-2019 End: 02-16-2022 History SDOH Social Connections Phone 5 [facility] Start: 07-16-2019 Education 15 [facility] Start: 1970 Sex Assigned At Female [facility] Start: 05-29-2020 End: 02-08-2022 Exposure to SARS-CoV-2 (event) Not sure [facility] Work Phone: Start: 04-12-2011 End: 12-27-2021 Tobacco use and exposure Smokeless tobacco non-user [facility] Start: 02-16-2022 History SDOH Alcohol Std Drinks 0 [facility] Start: 02-16-2022 History SDOH Financial 3 [facility] Start: 2022 End: 12-05-2023 Alcohol intake Ex-drinker (finding) [facility] Start: 02-16-2022 End: 07-19-2022 History of Social function [facility] Start: 02-16-2022 End: 07-19-2022 Social connection and isolation panel [facility] Do you belong to any clubs or organizations such as christianity groups, unions, fraternal or athletic groups, or school groups? Yes [facility] Are you now , , , , never or living with a partner? [facility] How often to you hav e a drink containing alcohol? Never [facility] How many standard dr inks containing alcohol do you have on a typical day? Patient does not drink [facility] How hard is it for y ou to pay for the very basics like food, housing, medical care, and heating Somewhat hard [facility] Do you feel stress - tense, restless, nervous, or anxious, or unable to sleep at night because your mind is troubled all the time - these days [OSQ] Not at all [facility] (I/We) worried mango er (my/our) food would run out before (I/we) got money to buy more. Never true [facility] In the past 12 month s, was there a time when you were not able to pay the mortgage or rent on time? No [facility] Start: 11-25-2018 Gender identity Identifies as female gender (finding) [facility] Start: 06-22-2021 Sexual orientation Heterosexual (finding) [facility] unknown [facility] Work Phone: Start: 1970 Sex Assigned At Not on file [facility] Work Phone: Are you now , , , , never or living with a partner? Living with partner [facility] How often to you hav e a drink containing alcohol? Monthly or less [facility] How many standard dr inks containing alcohol do you have on a typical day? 1 or 2 [facility] How hard is it for y ou to pay for the very basics like food, housing, medical care, and heating Not very hard [facility] Do you feel stress - tense, restless, nervous, or anxious, or unable to sleep at night because your mind is troubled all the time - these days [OSQ] To some extent [facility] How hard is it for y ou to pay for the very basics like food, housing, medical care, and heating Hard [facility] Do you feel stress - tense, restless, nervous, or anxious, or unable to sleep at night because your mind is troubled all the time - these days [OSQ] Very much [facility] Medical Equipment Procedure Code Equipment Code Equipment Origin al Text Equipment Identifier Dates Weed Sut 4.5mm Bcmps Crkscr Ft Ndl [id number] Start: 10-28-2019 Weed Sut 4.5mm Bcmps Crkscr Ft Ndl [id number] Start: 10-28-2019 Clip Endscp Flsh Smpl Rlb - [id number] Start: 08-13-2012 Comment on above: Description: Filshie clip Matrix Clarix Amniotic Membrane Umbilical Cord 6x3cm Tissue Allograft - [id number] Start: 10-28-2019 Comment on above: Description: Date an d integrity of package shown to dr. Gaitan and tech Test blood sugar (s) 2 times daily. Dx: Other DM Code fluctuating blood glucose, hypoglycemia Insulin: No [id number] Start: 08-21-2023 Test blood sugar (s) 2 times daily. Dx: Other DM Code fluctuating blood glucose, hypoglycemia. Insulin: No [id number] Start: 08-21-2023 Clinical Notes 02-15-2016 to 12-14-2023 Telephone Encounter - Alicia Castle MA - 12/14/2023 11:26 AM EDTTelephone Encounter - Alicia Castle MA - 12/14/2023 11:26 AM Mark Fuentes MD - 12/05/2023 10:31 AM EDT Note Date & Type Note Facility 12-14-2023 Telephone encounter Note Prescription Refill Information The patient has been identified by name and date of : Yes Caregiver verified no other encounters exist for this prescription request: Yes Caregiver confirmed with patient/requestor that no other refills are due, in the near future, with this provider at this time: Yes The last office visit in the department: 08/21/2023 Does the patient have a future office visit with this provider/department: Yes Requested Prescriptions Pending Prescriptions Disp Refills escitalopram oxalate (LEXAPRO) 5 mg tablet 30 tablet 5 Sig: Take 1 tablet by mouth daily at bedtime. For mood Alicia Castle MA December 14, 2023 11:26 AM [facility] 12-14-2023 Miscellaneous Notes Prescription Refill Information The patient has been identified by name and date of : Yes Caregiver verified no other encounters exist for this prescription request: Yes Caregiver confirmed with patient/requestor that no other refills are due, in the near future, with this provider at this time: Yes The last office visit in the department: 08/21/2023 Does the patient have a future office visit with this provider/department: Yes Requested Prescriptions Pending Prescriptions Disp Refills escitalopram oxalate (LEXAPRO) 5 mg tablet 30 tablet 5 Sig: Take 1 tablet by mouth daily at bedtime. For mood Alicia Castle MA December 14, 2023 11:26 AM documented in this encounter [facility] 12-13-2023 Telephone encounter Note See refill encounter Alicia Castle MA [facility] 12-13-2023 Miscellaneous Notes See refill encounter Alicia Castle MA documented in this encounter [facility] 12-13-2023 Telephone encounter Note Prescription Refill Information The patient has been identified by name and date of : Yes Caregiver verified no other encounters exist for this prescription request: Yes Caregiver confirmed with patient/requestor that no other refills are due, in the near future, with this provider at this time: Yes The last office visit in the department: 08/21/2023 Does the patient have a future office visit with this provider/department: Yes Requested Prescriptions Pending Prescriptions Disp Refills pantoprazole DR (PROTONIX) 40 mg tablet 180 tablet 0 Sig: Take 1 tablet by mouth once daily. Alicia Castle MA December 13, 2023 11:36 AM [facility] 12-13-2023 Miscellaneous Notes Prescription Refill Information The patient has been identified by name and date of : Yes Caregiver verified no other encounters exist for this prescription request: Yes Caregiver confirmed with patient/requestor that no other refills are due, in the near future, with this provider at this time: Yes The last office visit in the department: 08/21/2023 Does the patient have a future office visit with this provider/department: Yes Requested Prescriptions Pending Prescriptions Disp Refills pantoprazole DR (PROTONIX) 40 mg tablet 180 tablet 0 Sig: Take 1 tablet by mouth once daily. Alicia Castle MA December 13, 2023 11:36 AM documented in this encounter [facility] 12-05-2023 Note HNO ID: [id number] Author: MARK TATE MD Service: ? Author Type: Physician Type: Progress Notes Filed: 12/05/2023 10:52 Note Text: Patient presents with: Head Congestion: dry cough, fatigue. right ear pain x 2 weeks HPI: Right ear discomfort for a couple weeks. Pain has been sharp for a couple days. The pain is radiating down the neck to the right shoulder and her trigeminal neuralgia is aggravated on the right parietal. Positive symptoms: dry Cough, right Earache, some Sinus pressure/Nasal Congestion, scratchy throat, Fatigue, Negative symptoms: Shortness of breath, Fever, Chills, OTC: Tylenol MEDICATIONS: Current Outpatient Medications Medication Sig valACYclovir (VALTREX) 500 mg tablet Take 1 tablet by mouth two times a day. rOPINIRole (REQUIP) 0.5 mg tablet Take 1-2 tablets by mouth at bedtime as needed (restless legs). pantoprazole DR (PROTONIX) 40 mg tablet Take 1 tablet by mouth once daily. blood sugar diagnostic (BLOOD GLUCOSE TEST) test strip Test blood sugar(s) 2 times daily. Dx: Other DM Code fluctuating blood glucose, hypoglycemia Insulin: No Lancets Test blood sugar(s) 2 times daily. Dx: Other DM Code fluctuating blood glucose, hypoglycemia. Insulin: No cetirizine (ZYRTEC) 10 mg tablet Take 1 tablet by mouth once daily. escitalopram oxalate (LEXAPRO) 5 mg tablet Take 1 tablet by mouth daily at bedtime. For mood no115/iron/folic acid ( 19 ORAL) Take 1 tablet by mouth once daily. fluticasone (FLONASE) 50 mcg/actuation nasal spray Use 2 Sprays in each nostril once daily. Rinse mouth after use. fluticasone (FLOVENT HFA) 110 mcg/actuation inhaler Inhale 1 Puff as instructed twice daily. Rinse mouth after using. Blood Pressure Monitor 1 Each as directed. Blood pressure KIT, Dx: HTN ondansetron orally disintegrating (ZOFRAN ODT) 4 mg disintegrating tablet Take 1 tablet by mouth every 8 hours as needed for nausea/vomiting. Miscellaneous Medical Supply (BLOOD PRESSURE CUFF) 1 Each once daily. ipratropium-albuterol (DUONEB) 0.5 mg-3 mg(2.5 mg base)/3 mL nebu Inhale 3 mL as instructed every 4 hours as needed for wheezing/shortness of breath. Nebulizers 1 Each as directed. Dx: wheezing, recurrent acute bronchitis, Nebulizer Accessories misc 1 Each as directed. Dx: wheezing, recurrent acute bronchitis, Tubing and mask for nebulizer omeprazole (PRILOSEC) 40 mg capsule Take 1 capsule by mouth twice daily. Open capsules [id number] (CREON) 36,000-114,000- 180,000 unit delayed release capsule Take 3 capsules by mouth three times daily with meals. No current facility-administered medications for this visit. ALLERGIES: ALLERGIES Allergen Reactions Miconazole Itching Milnacipran Mental Status Change, Other: See Comments [place] weird. Rivaroxaban Other: See Comments, GI Upset Taste of blood in mouth and muscle aches Morphine Shortness of Breath Atorvastatin Other: See Comments Leg aching and pain Coumadin [Warfarin * Other: See Comments headache,arm pain and back pain Dilaudid [Hydromorp* Other: See Comments Pain Lyrica [Pregabalin] Rash, Cough, Itching Prednisone Itching VITALS: BP 110/72 Pulse 66 Temp 36.1 ?C (96.9 ?F) Resp 16 Wt 83.2 kg (183 lb 6.8 oz) LMP 07/11/2012 SpO2 97% BMI 33.55 kg/m? PHYSICAL EXAM: GEN: Pleasant, in no acute distress. HEENT: PERRL, EOMI, conjunctiva clear Ears: canals clear. TMs without erythema, bulge, or effusion. Tender right TMJ palpation reproduces right ear pain. Sinuses: non-tender frontal sinus, non-tender maxillary sinuses Throat: moist mucous membranes, mild erythema, no exudate Neck: supple, no thyromegaly, no lymphadenopathy HEART: regular rate and rhythm, no murmurs LUNGS: clear to auscultation, no wheezes or crackles, no increased WOB ASSESSMENT/PLAN: 1. Otalgia, right - ICD9: 388.70, ICD10: H92.01 Reassured by benign exam with no ear infection. Right temporomandibular joint pain. 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 Continue giau-hje-mprtigy acetaminophen. Discussed options for further treatment to include consult to specialist focusing on TMJ pain: dentist, oral maxillofacial surgeon, physical therapy. Mark Tate MD [facility] 12-05-2023 History of Present illness Narrative Patient presents with: Head Congestion: dry cough, fatigue. right ear pain x 2 weeks HPI: Right ear discomfort for a couple weeks. Pain has been sharp for a couple days. The pain is radiating down the neck to the right shoulder and her trigeminal neuralgia is aggravated on the right parietal. Positive symptoms: dry Cough, right Earache, some Sinus pressure/Nasal Congestion, scratchy throat, Fatigue, Negative symptoms: Shortness of breath, Fever, Chills, OTC: Tylenol MEDICATIONS: Current Outpatient Medications Medication Sig valACYclovir (VALTREX) 500 mg tablet Take 1 tablet by mouth two times a day. rOPINIRole (REQUIP) 0.5 mg tablet Take 1-2 tablets by mouth at bedtime as needed (restless legs). pantoprazole DR (PROTONIX) 40 mg tablet Take 1 tablet by mouth once daily. blood sugar diagnostic (BLOOD GLUCOSE TEST) test strip Test blood sugar(s) 2 times daily. Dx: Other DM Code fluctuating blood glucose, hypoglycemia Insulin: No Lancets Test blood sugar(s) 2 times daily. Dx: Other DM Code fluctuating blood glucose, hypoglycemia. Insulin: No cetirizine (ZYRTEC) 10 mg tablet Take 1 tablet by mouth once daily. escitalopram oxalate (LEXAPRO) 5 mg tablet Take 1 tablet by mouth daily at bedtime. For mood no115/iron/folic acid ( 19 ORAL) Take 1 tablet by mouth once daily. fluticasone (FLONASE) 50 mcg/actuation nasal spray Use 2 Sprays in each nostril once daily. Rinse mouth after use. fluticasone (FLOVENT HFA) 110 mcg/actuation inhaler Inhale 1 Puff as instructed twice daily. Rinse mouth after using. Blood Pressure Monitor 1 Each as directed. Blood pressure KIT, Dx: HTN ondansetron orally disintegrating (ZOFRAN ODT) 4 mg disintegrating tablet Take 1 tablet by mouth every 8 hours as needed for nausea/vomiting. Miscellaneous Medical Supply (BLOOD PRESSURE CUFF) 1 Each once daily. ipratropium-albuterol (DUONEB) 0.5 mg-3 mg(2.5 mg base)/3 mL nebu Inhale 3 mL as instructed every 4 hours as needed for wheezing/shortness of breath. Nebulizers 1 Each as directed. Dx: wheezing, recurrent acute bronchitis, Nebulizer Accessories misc 1 Each as directed. Dx: wheezing, recurrent acute bronchitis, Tubing and mask for nebulizer omeprazole (PRILOSEC) 40 mg capsule Take 1 capsule by mouth twice daily. Open capsules [id number] (CREON) 36,000-114,000- 180,000 unit delayed release capsule Take 3 capsules by mouth three times daily with meals. No current facility-administered medications for this visit. ALLERGIES: ALLERGIES Allergen Reactions Miconazole Itching Milnacipran Mental Status Change, Other: See Comments [place] weird. Rivaroxaban Other: See Comments, GI Upset Taste of blood in mouth and muscle aches Morphine Shortness of Breath Atorvastatin Other: See Comments Leg aching and pain Coumadin [Warfarin * Other: See Comments headache,arm pain and back pain Dilaudid [Hydromorp* Other: See Comments Pain Lyrica [Pregabalin] Rash, Cough, Itching Prednisone Itching VITALS: BP 110/72 Pulse 66 Temp 36.1 C (96.9 F) Resp 16 Wt 83.2 kg (183 lb 6.8 oz) LMP 07/11/2012 SpO2 97% BMI 33.55 kg/m PHYSICAL EXAM: GEN: Pleasant, in no acute distress. HEENT: PERRL, EOMI, conjunctiva clear Ears: canals clear. TMs without erythema, bulge, or effusion. Tender right TMJ palpation reproduces right ear pain. Sinuses: non-tender frontal sinus, non-tender maxillary sinuses Throat: moist mucous membranes, mild erythema, no exudate Neck: supple, no thyromegaly, no lymphadenopathy HEART: regular rate and rhythm, no murmurs LUNGS: clear to auscultation, no wheezes or crackles, no increased WOB ASSESSMENT/PLAN: 1. Otalgia, right - ICD9: 388.70, ICD10: H92.01 Reassured by benign exam with no ear infection. Right temporomandibular joint pain. 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 Continue wvzq-bwp-pvteaay acetaminophen. Discussed options for further treatment to include consult to specialist focusing on TMJ pain: dentist, oral maxillofacial surgeon, physical therapy. Mark Tate MD documented in this encounter [facility] 12-04-2023 Telephone encounter Note Prescription Refill Information The patient has been identified by name and date of : Yes Caregiver verified no other encounters exist for this prescription request: Yes Caregiver confirmed with patient/requestor that no other refills are due, in the near future, with this provider at this time: Yes The last office visit in the department: 08/21/2023 Does the patient have a future office visit with this provider/department: Yes Requested Prescriptions Pending Prescriptions Disp Refills valACYclovir (VALTREX) 500 mg tablet 60 tablet 5 Sig: Take 1 tablet by mouth two times a day. rOPINIRole (REQUIP) 0.5 mg tablet 60 tablet 5 Sig: Take 1-2 tablets by mouth at bedtime as needed (restless legs). Mer Everett LPN December 04, 2023 12:48 PM [facility] 12-04-2023 Miscellaneous Notes Prescription Refill Information The patient has been identified by name and date of : Yes Caregiver verified no other encounters exist for this prescription request: Yes Caregiver confirmed with patient/requestor that no other refills are due, in the near future, with this provider at this time: Yes The last office visit in the department: 08/21/2023 Does the patient have a future office visit with this provider/department: Yes Requested Prescriptions Pending Prescriptions Disp Refills valACYclovir (VALTREX) 500 mg tablet 60 tablet 5 Sig: Take 1 tablet by mouth two times a day. rOPINIRole (REQUIP) 0.5 mg tablet 60 tablet 5 Sig: Take 1-2 tablets by mouth at bedtime as needed (restless legs). Mer Everett LPN December 04, 2023 12:48 PM documented in this encounter [facility] 11-13-2023 Telephone encounter Note Patient has been identified by name and date of : Patient phones for refill(s): Requested Prescriptions Pending Prescriptions Disp Refills pantoprazole DR (PROTONIX) 40 mg tablet 180 tablet 0 Sig: Take 1 tablet by mouth once daily. Date of last office visit in primary care: 08/21/2023 Date of next office visit in primary care: Visit date not found Please advise. Thank you. Alesha Madrigal LPN. [facility] 11-13-2023 Miscellaneous Notes Patient has been identified by name and date of : Patient phones for refill(s): Requested Prescriptions Pending Prescriptions Disp Refills pantoprazole DR (PROTONIX) 40 mg tablet 180 tablet 0 Sig: Take 1 tablet by mouth once daily. Date of last office visit in primary care: 08/21/2023 Date of next office visit in primary care: Visit date not found Please advise. Thank you. Alesha Madrigal LPN. documented in this encounter [facility] 10-23-2023 Telephone encounter Note Sent pt mychart message Alicia Castle MA [facility] 10-23-2023 Miscellaneous Notes Sent pt mychart message Alicia Castle MA Please let her know that options would include Metformin or Adipex or Wellbutrin (or a combination of 2 of these medications). What is she interested in starting? Tang Olguin DO Pt sends mychart message asking about weight loss meds. See pt message below. Eddy, we talked about putting me on something to help with my weight loss, is it possible that I can get something now since my labs were okay? Thank you documented in this encounter [facility] 10-23-2023 Telephone encounter Note Please let her know that options would include Metformin or Adipex or Wellbutrin (or a combination of 2 of these medications). What is she interested in starting? Tang Olguin DO [facility] 10-09-2023 Telephone encounter Note Pt sends Oximityhart message asking about weight loss meds. See pt message below. Eddy we talked about putting me on something to help with my weight loss, is it possible that I can get something now since my labs were okay? Thank you [facility] 10-09-2023 Telephone encounter Note See TE 10/09/23 Karen Middleton MA [facility] 10-09-2023 Miscellaneous Notes See TE 10/09/23 Karen Middleton MA documented in this encounter [facility] 08-21-2023 Note HNO ID: [id number] Author: TANG OLGUIN, DO Service: ? Author Type: Physician Type: Progress Notes Filed: 08/22/2023 07:23 Note Text: CC: Ning Mendes is a 53 year old female who presents to the office for follow up HPI: Concerns for hypoglycemia and sometimes hypeglycemia- no previous known history of diabetes. Has been shaky and struggling with blood glucose regulation with feeling that her blood glucose goes from 80s to 150s range. Hasn't had diabetes in the past. She is concerned about her risk since she had IFG in the past. She is interested in having a glucometer to be able to check her blood glucose Obestiy, weight now at 185 lbs. Her goal is in the 150 lbs range. Inflammation markers were normal last labs after her weight loss Elevated LFTs. Has been seen by Dr. 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 He is helping her with medication adjustments. + Fatigue, frustrated with constant feeling of hunger, even after her bariatric surgery PAST MEDICAL HISTORY Diagnosis Date Abdominal pain 02/15/2016 Abdominal pain, epigastric Anxiety state, unspecified Aortic aneurysm (HCC) ascending thoracic Asthma Calcaneal spur 05/24/2011 Carpal tunnel syndrome, right 05/2013 moderate Colon polyps Depressive disorder, not elsewhere classified Diaphragmatic hernia without mention of obstruction or gangrene DVT (deep venous thrombosis) (HCC) post foot surgery, x 2 interval Endometriosis ? HX not confirmed Fibromyalgia muscle pain GERD (gastroesophageal reflux disease) Hayfever 10/04/2010 HSV (herpes simplex virus) infection Hypercholesteremia Hypertension 01/2017 Impaired fasting glucose 08/2013 5.7% A1C Mild intermittent asthma without complication 10/27/2019 NNEKA (obstructive sleep apnea) 10/27/2019 Patellofemoral disorder 03/09/2009 PONV (postoperative nausea and vomiting) 03/17/2015 PTSD (post-traumatic stress disorder) per counseling center rheumatoid arthritis Right carpal tunnel syndrome 06/30/2013 Right hand paresthesia 04/28/2013 Seizures (HCC) Snoring Temporomandibular joint disorders, unspecified Toenail deformity 04/28/2013 Trigger middle finger of right hand 12/15/2014 Trigger ring finger of right hand 12/15/2014 Vitamin D deficiency 03/2013 PAST SURGICAL HISTORY Procedure Laterality Date CARPAL TUNNEL 07/2013 right, Dr. Draper DELIVERY ONLY 1990 , low cervical COLONOSCOPY 08/11/2014 normal, repeat in 5 years COLONOSCOPY FLX DX W/COLLJ SPEC WHEN PFRMD 06/24/2004 Colonoscopy/Dr. Cash COLONOSCOPY FLX DX W/COLLJ SPEC WHEN PFRMD 11/23/2017 Colonoscopy COLONOSCOPY W/BIOPSY SINGLE/MULTIPLE 05/04/2010 EGD EGD 08/11/2014 mild chronic gastritis EGD TRANSORAL BIOPSY SINGLE/MULTIPLE 05/04/2010 ESOPHAGOGASTRODUODENOSCOPY TRANSORAL DIAGNOSTIC 11/23/2017 EGD ESOPHAGOGASTRODUODENOSCOPY TRANSORAL DIAGNOSTIC 05/01/2019 EGD GASTRIC BYPASS HX 05/26/2022 INCISE FINGER TENDON SHEATH Right 03/23/2015 Right middle trigger finger release LAPAROSCOPIC TUBAL LIGATION/RING/CLIP 2012 alessandro elliott vesicouterine adhesions LAPAROSCOPY DIAGNOSTIC 2016 extensive KEVYN, severe LAPS SURG CHOLECYSTECTOMY W/CHOLANGIOGRAPHY 05/02/2006 LAPS W/VAG HYSTERECT 250 GM/ANDRMVL TUBEAND/OVARIES 2014 [facility] bilateral salpingectomy, scar tissue LIDOCAINE IV treatments-[facility] Dr Duran PAST SURGICAL HISTORY OF 01/13/2006 Bilateral Breast Reduction PAST SURGICAL HISTORY OF 06/14/2011 left foot for plantar fasciitis REVISE MEDIAN N/CARPAL TUNNEL SURG Left 03/22/2022 Left carpal tunnel release and injection left shoulder S CATH ABLATION THERMACHOICE 2012 uterine ablation Current Outpatient Medications Medication Sig Blood-Glucose Meter monitoring kit Glucose Meter of Choice - Kit - Dx: Other DM Code : fluctuating blood glucose, hypoglycemia blood sugar diagnostic (BLOOD GLUCOSE TEST) test strip Test blood sugar(s) 2 times daily. Dx: Other DM Code fluctuating blood glucose, hypoglycemia Insulin: No Lancets Test blood sugar(s) 2 times daily. Dx: Other DM Code fluctuating blood glucose, hypoglycemia. Insulin: No cetirizine (ZYRTEC) 10 mg tablet Take 1 tablet by mouth once daily. escitalopram oxalate (LEXAPRO) 5 mg tablet Take 1 tablet by mouth daily at bedtime. For mood pantoprazole DR (PROTONIX) 40 mg tablet Take 1 tablet by mouth once daily. no115/iron/folic acid ( 19 ORAL) Take 1 tablet by mouth once daily. fluticasone (FLONASE) 50 mcg/actuation nasal spray Use 2 Sprays in each nostril once daily. Rinse mouth after use. valACYclovir (VALTREX) 500 mg tablet Take 1 tablet by mouth two times a day. rOPINIRole (REQUIP) 0.5 mg tablet Take 1-2 tablets by mouth at bedtime as needed (restless legs). fluticasone (FLOVENT HFA) 110 mcg/actuation inhaler Inhale 1 Puff as instructed twice daily. Rinse mouth after using. omeprazol (more content not included)... [facility] 08-21-2023 History of Present illness Narrative CC: Ning Mendes is a 53 year old female who presents to the office for follow up HPI: Concerns for hypoglycemia and sometimes hypeglycemia- no previous known history of diabetes. Has been shaky and struggling with blood glucose regulation with feeling that her blood glucose goes from 80s to 150s range. Hasn't had diabetes in the past. She is concerned about her risk since she had IFG in the past. She is interested in having a glucometer to be able to check her blood glucose Obestiy, weight now at 185 lbs. Her goal is in the 150 lbs range. Inflammation markers were normal last labs after her weight loss Elevated LFTs. Has been seen by Dr. 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 He is helping her with medication adjustments. + Fatigue, frustrated with constant feeling of hunger, even after her bariatric surgery PAST MEDICAL HISTORY Diagnosis Date Abdominal pain 02/15/2016 Abdominal pain, epigastric Anxiety state, unspecified Aortic aneurysm (HCC) ascending thoracic Asthma Calcaneal spur 05/24/2011 Carpal tunnel syndrome, right 05/2013 moderate Colon polyps Depressive disorder, not elsewhere classified Diaphragmatic hernia without mention of obstruction or gangrene DVT (deep venous thrombosis) (HCC) post foot surgery, x 2 interval Endometriosis ? HX not confirmed Fibromyalgia muscle pain GERD (gastroesophageal reflux disease) Hayfever 10/04/2010 HSV (herpes simplex virus) infection Hypercholesteremia Hypertension 01/2017 Impaired fasting glucose 08/2013 5.7% A1C Mild intermittent asthma without complication 10/27/2019 NNEKA (obstructive sleep apnea) 10/27/2019 Patellofemoral disorder 03/09/2009 PONV (postoperative nausea and vomiting) 03/17/2015 PTSD (post-traumatic stress disorder) per counseling center rheumatoid arthritis Right carpal tunnel syndrome 06/30/2013 Right hand paresthesia 04/28/2013 Seizures (HCC) Snoring Temporomandibular joint disorders, unspecified Toenail deformity 04/28/2013 Trigger middle finger of right hand 12/15/2014 Trigger ring finger of right hand 12/15/2014 Vitamin D deficiency 03/2013 PAST SURGICAL HISTORY Procedure Laterality Date CARPAL TUNNEL 07/2013 right, Dr. Draper DELIVERY ONLY 1990 , low cervical COLONOSCOPY 08/11/2014 normal, repeat in 5 years COLONOSCOPY FLX DX W/COLLJ SPEC WHEN PFRMD 06/24/2004 Colonoscopy/Dr. Cash COLONOSCOPY FLX DX W/COLLJ SPEC WHEN PFRMD 11/23/2017 Colonoscopy COLONOSCOPY W/BIOPSY SINGLE/MULTIPLE 05/04/2010 EGD EGD 08/11/2014 mild chronic gastritis EGD TRANSORAL BIOPSY SINGLE/MULTIPLE 05/04/2010 ESOPHAGOGASTRODUODENOSCOPY TRANSORAL DIAGNOSTIC 11/23/2017 EGD ESOPHAGOGASTRODUODENOSCOPY TRANSORAL DIAGNOSTIC 05/01/2019 EGD GASTRIC BYPASS HX 05/26/2022 INCISE FINGER TENDON SHEATH Right 03/23/2015 Right middle trigger finger release LAPAROSCOPIC TUBAL LIGATION/RING/CLIP 2012 alessandro elliott vesicouterine adhesions LAPAROSCOPY DIAGNOSTIC 2016 extensive KEVYN, severe LAPS SURG CHOLECYSTECTOMY W/CHOLANGIOGRAPHY 05/02/2006 LAPS W/VAG HYSTERECT 250 GM/&RMVL TUBE&/OVARIES 2014 [facility] bilateral salpingectomy, scar tissue LIDOCAINE IV treatments-Mohit Duran PAST SURGICAL HISTORY OF 01/13/2006 Bilateral Breast Reduction PAST SURGICAL HISTORY OF 06/14/2011 left foot for plantar fasciitis REVISE MEDIAN N/CARPAL TUNNEL SURG Left 03/22/2022 Left carpal tunnel release and injection left shoulder S CATH ABLATION THERMACHOICE 2012 uterine ablation Current Outpatient Medications Medication Sig Blood-Glucose Meter monitoring kit Glucose Meter of Choice - Kit - Dx: Other DM Code : fluctuating blood glucose, hypoglycemia blood sugar diagnostic (BLOOD GLUCOSE TEST) test strip Test blood sugar(s) 2 times daily. Dx: Other DM Code fluctuating blood glucose, hypoglycemia Insulin: No Lancets Test blood sugar(s) 2 times daily. Dx: Other DM Code fluctuating blood glucose, hypoglycemia. Insulin: No cetirizine (ZYRTEC) 10 mg tablet Take 1 tablet by mouth once daily. escitalopram oxalate (LEXAPRO) 5 mg tablet Take 1 tablet by mouth daily at bedtime. For mood pantoprazole DR (PROTONIX) 40 mg tablet Take 1 tablet by mouth once daily. no115/iron/folic acid ( 19 ORAL) Take 1 tablet by mouth once daily. fluticasone (FLONASE) 50 mcg/actuation nasal spray Use 2 Sprays in each nostril once daily. Rinse mouth after use. valACYclovir (VALTREX) 500 mg tablet Take 1 tablet by mouth two times a day. rOPINIRole (REQUIP) 0.5 mg tablet Take 1-2 tablets by mouth at bedtime as needed (restless legs). fluticasone (FLOVENT HFA) 110 mcg/actuation inhaler Inhale 1 Puff as instructed twice daily. Rinse mouth after using. omeprazole (PRILOSEC) 40 mg capsule Take 1 capsule by mouth twice daily. Open capsules Blood Pressure Monitor 1 Each as directed. Blood pressure KIT, Dx: HTN ondansetron orally disintegrating (ZOFRAN ODT) 4 mg disintegrating tablet Take 1 tablet by mouth every 8 hours as needed for nausea/vomiting. nxmexl-jcwooeyg-fbvlyur (CREON) 36,000-114,000- 180,000 unit delayed release capsule Take 3 capsules by mouth three times daily with meals. Miscellaneous Medical Supply (BLOOD PRESSURE CUFF) 1 Each once daily. ipratropium-albuterol (DUONEB) 0.5 mg-3 mg(2.5 mg base)/3 mL nebu Inhale 3 mL as instructed every 4 hours as needed for wheezing/shortness of breath. Nebulizers 1 Each as directed. Dx: wheezing, recurrent acute bronchitis, Nebulizer Accessories misc 1 Each as directed. Dx: wheezing, recurrent acute bronchitis, Tubing and mask for nebulizer No current facility-administered medications for this visit. ALLERGIES Allergen Reactions Miconazole Itching Milnacipran Mental Status Change, Other: See Comments [place] weird. Rivaroxaban Other: See Comments, GI Upset Taste of blood in mouth and muscle aches Morphine Shortness of Breath Atorvastatin Other: See Comments Leg aching and pain Coumadin [Warfarin * Other: See Comments headache,arm pain and back pain Dilaudid [Hydromorp* Other: See Comments Pain Lyrica [Pregabalin] Rash, Cough, Itching Prednisone Itching Social History Tobacco Use Smoking status: Never Smokeless tobacco: Never Vaping Use Vaping Use: Never used Substance Use Topics Alcohol use: Not Currently Drug use: No ROS: See HPI PE: BP 110/60 Pulse 64 Temp (Src) 97 (Right Tympanic) Resp 12 Wt 185 lb (83.9kg) LMP 07/11/2012 Gen: A&OX3, NAD, non-toxic appearing HEENT: PERRLA, EOMs intact b/l, nares without drainage, pharynx without erythema, exudate, lesions, or drainage. Uvula midline. Neck: No LAD, no thyromegaly, no meningismus. CV: RRR, no murmur Lungs: CTA b/l, no wheezing Skin: No rashes, lesions, or wounds on exposed skin. No edema, normal pulses Abd: soft, NT, normal BS, overweight ASSESSMENT/PLAN: 1. Hypoglycemia - ICD9: 251.2, ICD10: E16.2 (primary diagnosis) Need for glucose monitoring and labs as ordered Concerns about her risk of diabetes - BLOOD-GLUCOSE METER KIT - BLOOD SUGAR DIAGNOSTIC STRIPS - LANCETS 2. Appetite increase - ICD9: 783.6, ICD10: R63.2 Need for glucose monitoring and labs as ordered Concerns about her risk of diabetes - THYROID STIMULATING HORMONE - T4 FREE/FREE THYROXINE - T3, FREE 3. Lightheaded - ICD9: 780.4, ICD10: R42 Need for glucose monitoring and labs as ordered Concerns about her risk of diabetes - COMPREHENSIVE METABOLIC PANEL - COMPLETE BLOOD COUNT AND DIFFERENTIAL - BLOOD-GLUCOSE METER KIT - BLOOD SUGAR DIAGNOSTIC STRIPS - LANCETS 4. Blood glucose labile - ICD9: 790.29, ICD10: R73.09 Need for glucose monitoring and labs as ordered Concerns about her risk of diabetes - COMPREHENSIVE METABOLIC PANEL - COMPLETE BLOOD COUNT AND DIFFERENTIAL - HEMOGLOBIN A1C - BLOOD-GLUCOSE METER KIT - BLOOD SUGAR DIAGNOSTIC STRIPS - LANCETS 5. History of Bernadine-en-Y gastric bypass - ICD9: V45.86, ICD10: Z98.84 Need for glucose monitoring and labs as ordered Concerns about her risk of diabetes 6. Fatigue, unspecified type - ICD9: 780.79, ICD10: R53.83 Need for glucose monitoring and labs as ordered Concerns about her risk of diabetes 7. IFG (impaired fasting glucose) - ICD9: 790.21, ICD10: R73.01 Need for glucose monitoring and labs as ordered Concerns about her risk of diabetes Tang Olguin DO Return if no improvement. Follow up with Tang Olguin DO. To ER if develops chest pain, shortness of breath. Discussed risks, benefits, alternatives, and potential side effects of medications. Patient/Guardian expressed understanding and agreed with the plan. See patient instructions. Tang Olguin DO [address] [place] [address] documented in this encounter [facility] 06-12-2023 Miscellaneous Notes The following approved medication requests have been transmitted electronically. Requested Prescriptions Signed Prescriptions Disp Refills escitalopram oxalate (LEXAPRO) 5 mg tablet 30 tablet 5 Sig: Take 1 tablet by mouth daily at bedtime. For mood Sánchez Pelletier APRN.CNP Patient last visit with PCP 06/06/23 Follow up appointment scheduled 08/21/23 Radha Modi MA documented in this encounter [facility] 06-06-2023 Note HNO ID: [id number] Author: SÁNCHEZ PELLETIER APRN.EVALUATION MANAGER Service: ? Author Type: Nurse Practitioner Type: Progress Notes Filed: 06/06/2023 12:10 Note Text: Chief Complaint Patient presents with: Acute Visit: Lightheaded, shaky, headaches x 1 month, has checked blood sugars and they run around 60-70, feels like Blood sugar related. Skin tag on back. HPI Ning Ann is a 53 year old female who presents here today for Above Complaints.. Currently: Had weight loss surgery about a year ago. Has lost weight but feels like she's at a standstill with her weight loss right now. Concern for low blood sugar. Occasionally will feel lightheaded and achy. Has checked her blood sugar at her friend's house and has been in the 60's-70's. Has had headaches as well. Typically eating improves her sx. Eating-breakfast, lunch, dinner. Tries to eat cheese sticks in between for snacks. Knows she is dehydrated-just can't get enough water in because she will get stomach ache because it gets so full. Tries to get protein but probably doesn't get enough. Has skin tag in her right armpit that she would like to have removed as she is getting in a month and would show with her dress. Past medical history, appointments, medications, allergies reviewed. Previous Medical History PAST MEDICAL HISTORY Diagnosis Date Abdominal pain 02/15/2016 Abdominal pain, epigastric Anxiety state, unspecified Aortic aneurysm (HCC) ascending thoracic Asthma Calcaneal spur 05/24/2011 Carpal tunnel syndrome, right 05/2013 moderate Colon polyps Depressive disorder, not elsewhere classified Diaphragmatic hernia without mention of obstruction or gangrene DVT (deep venous thrombosis) (HCC) post foot surgery, x 2 interval Endometriosis ? HX not confirmed Fibromyalgia muscle pain GERD (gastroesophageal reflux disease) Hayfever 10/04/2010 HSV (herpes simplex virus) infection Hypercholesteremia Hypertension 01/2017 Impaired fasting glucose 08/2013 5.7% A1C Mild intermittent asthma without complication 10/27/2019 NNEKA (obstructive sleep apnea) 10/27/2019 Patellofemoral disorder 03/09/2009 PONV (postoperative nausea and vomiting) 03/17/2015 PTSD (post-traumatic stress disorder) per counseling center rheumatoid arthritis Right carpal tunnel syndrome 06/30/2013 Right hand paresthesia 04/28/2013 Seizures (HCC) Snoring Temporomandibular joint disorders, unspecified Toenail deformity 04/28/2013 Trigger middle finger of right hand 12/15/2014 Trigger ring finger of right hand 12/15/2014 Vitamin D deficiency 03/2013 Previous Surgical History PAST SURGICAL HISTORY Procedure Laterality Date CARPAL TUNNEL 07/2013 right, Dr. Draper DELIVERY ONLY 1990 , low cervical COLONOSCOPY 08/11/2014 normal, repeat in 5 years COLONOSCOPY FLX DX W/COLLJ SPEC WHEN PFRMD 06/24/2004 Colonoscopy/Dr. Cash COLONOSCOPY FLX DX W/COLLJ SPEC WHEN PFRMD 11/23/2017 Colonoscopy COLONOSCOPY W/BIOPSY SINGLE/MULTIPLE 05/04/2010 EGD EGD 08/11/2014 mild chronic gastritis EGD TRANSORAL BIOPSY SINGLE/MULTIPLE 05/04/2010 ESOPHAGOGASTRODUODENOSCOPY TRANSORAL DIAGNOSTIC 11/23/2017 EGD ESOPHAGOGASTRODUODENOSCOPY TRANSORAL DIAGNOSTIC 05/01/2019 EGD GASTRIC BYPASS HX 05/26/2022 INCISE FINGER TENDON SHEATH Right 03/23/2015 Right middle trigger finger release LAPAROSCOPIC TUBAL LIGATION/RING/CLIP 2012 alessandro elliott vesicouterine adhesions LAPAROSCOPY DIAGNOSTIC 2016 extensive KEVYN, severe LAPS SURG CHOLECYSTECTOMY W/CHOLANGIOGRAPHY 05/02/2006 LAPS W/VAG HYSTERECT 250 GM/ANDRMVL TUBEAND/OVARIES 2014 [facility] bilateral salpingectomy, scar tissue LIDOCAINE IV treatments-Mohit Duran PAST SURGICAL HISTORY OF 01/13/2006 Bilateral Breast Reduction PAST SURGICAL HISTORY OF 06/14/2011 left foot for plantar fasciitis REVISE MEDIAN N/CARPAL TUNNEL SURG Left 03/22/2022 Left carpal tunnel release and injection left shoulder S CATH ABLATION THERMACHOICE 2012 uterine ablation Family History FAMILY HISTORY Problem Relation Age of Onset Hypertension Mother Lipids Mother Alcohol/Drug Mother Allergies Mother Alcohol/Drug Father Thyroid Sister other (fibromyalgia) Sister other (brain) Sister surgery brain too big for her skull (plate) Blindness Sister Alcohol/Drug Brother Emphysema Maternal Grandmother Emphysema Maternal Grandfather Heart Paternal Grandmother Anesthesia Problems No Family History Patient Allergies ALLERGIES Allergen Reactions Miconazole Itching Milnacipran Mental Status Change, Other: See Comments [place] weird. Rivaroxaban Other: See Comments, GI Upset Taste of blood in mouth and muscle aches Morphine Shortness of Breath Atorvastatin Other: See Comments Leg aching and pain Coumadin [Warfarin * Other: See Comments headache,arm pain and back pain Dilaudid [Hydromorp* Other: See Comments Pain Lyrica [Pregabalin] Rash, Cough, I (more content not included)... [facility] 06-05-2023 Miscellaneous Notes Patient has been identified by name and date of : Patient phones for refill(s): Requested Prescriptions Pending Prescriptions Disp Refills pantoprazole DR (PROTONIX) 40 mg tablet 180 tablet 0 Sig: Take 1 tablet by mouth once daily. Date of last office visit in primary care: 10/10/2022 Date of next office visit in primary care: 06/06/2023 Please advise. Thank you. Alesha Madrigal LPN. documented in this encounter [facility] 05-29-2023 Miscellaneous Notes Spoke to patient and triage completed. See triage. Closing encounter. Yuli Pike RN documented in this encounter [facility] 05-29-2023 Miscellaneous Notes Patient calls to report right foot and leg swelling. She reports the leg aches. The right foot is numb feeling and cool to touch. The numbness/tingling extends up the leg into the calf. Nurse triage completed. Protocol recommends go to ED now. Patient agreeable and aware that she should have someone take her. Patient reports that she will have someone take her to [facility] ER. Care advice reviewed. Patient verbalizes understanding. Reason for Disposition Entire foot is cool or blue in comparison to other side Answer Assessment - Initial Assessment Questions 1. ONSET: Patient reports two days ago 2. LOCATION:Right foot and right leg above the knee 3. SEVERITY: - SEVERE edema: Swelling extends above knee, facial or hand swelling present. 4. REDNESS: No 5. PAIN:Moderate 6. FEVER: No 7. CAUSE: Patient concerned with a blood clot 8. MEDICAL HISTORY: History or blood clots. No history of cancer, heart failure, kidney disease, or liver failure. 9. RECURRENT SYMPTOM: Yes, previously had to be treated for blood clots. 10. OTHER SYMPTOMS: Patient reports that foot is numb feeling and cool to touch. Numbness extends up leg into calf. No chest pain or difficulty breathing. Protocols used: Leg Swelling and [id number] documented in this encounter [facility] 2023 Note HNO ID: [id number] Author: AGAPITO GONZALEZ PA-C Service: ? Author Type: Physician Candle Wicker Type: Progress Notes Filed: 2023 11:05 Note Text: This note was created using Synchris. Subjective Ning Ann is a 53 year old female. HPI Patient presents with a chief complaint of left ear pain. She states she had COVID at the beginning of May. She still has sinus pressure and congestion and her ear has been popping and bothering her. No drainage out of her ear. Denies chest pain. She states she is still coughing and felt a little wheezy this morning. No vomiting or diarrhea. She has been using saline spray [id number]. Review of Systems Constitutional: Negative. HENT: Positive for congestion, ear pain, sinus pressure and sinus pain. Negative for ear discharge and sore throat. Respiratory: Positive for cough and wheezing. Cardiovascular: Negative. Gastrointestinal: Negative. Genitourinary: Negative. Musculoskeletal: Negative. All other systems reviewed and are negative. PAST MEDICAL HISTORY Diagnosis Date Abdominal pain 02/15/2016 Abdominal pain, epigastric Anxiety state, unspecified Aortic aneurysm (HCC) ascending thoracic Asthma Calcaneal spur 05/24/2011 Carpal tunnel syndrome, right 05/2013 moderate Colon polyps Depressive disorder, not elsewhere classified Diaphragmatic hernia without mention of obstruction or gangrene DVT (deep venous thrombosis) (HCC) post foot surgery, x 2 interval Endometriosis ? HX not confirmed Fibromyalgia muscle pain GERD (gastroesophageal reflux disease) Hayfever 10/04/2010 HSV (herpes simplex virus) infection Hypercholesteremia Hypertension 01/2017 Impaired fasting glucose 08/2013 5.7% A1C Mild intermittent asthma without complication 10/27/2019 NNEKA (obstructive sleep apnea) 10/27/2019 Patellofemoral disorder 03/09/2009 PONV (postoperative nausea and vomiting) 03/17/2015 PTSD (post-traumatic stress disorder) per counseling center rheumatoid arthritis Right carpal tunnel syndrome 06/30/2013 Right hand paresthesia 04/28/2013 Seizures (HCC) Snoring Temporomandibular joint disorders, unspecified Toenail deformity 04/28/2013 Trigger middle finger of right hand 12/15/2014 Trigger ring finger of right hand 12/15/2014 Vitamin D deficiency 03/2013 Current Outpatient Medications Medication Sig Dispense Refill ZINC ACETATE ORAL Take 1 tablet by mouth once daily. Ascorbic Acid (VITAMIN C) 1,000 mg tablet Take 1,000 mg by mouth once daily. no115/iron/folic acid ( 19 ORAL) Take 1 tablet by mouth once daily. cetirizine (ZYRTEC) 10 mg tablet Take 1 tablet by mouth once daily. 30 tablet 2 valACYclovir (VALTREX) 500 mg tablet Take 1 tablet by mouth two times a day. 60 tablet 5 rOPINIRole (REQUIP) 0.5 mg tablet Take 1-2 tablets by mouth at bedtime as needed (restless legs). 60 tablet 5 escitalopram oxalate (LEXAPRO) 5 mg tablet Take 1 tablet by mouth daily at bedtime. For mood [address] (PROTONIX) 40 mg tablet Take 1 tablet by mouth once daily. 180 tablet 0 Blood Pressure Monitor 1 Each as directed. Blood pressure KIT, Dx: HTN 1 Each 0 ondansetron orally disintegrating (ZOFRAN ODT) 4 mg disintegrating tablet Take 1 tablet by mouth every 8 hours as needed for nausea/vomiting. 20 tablet 1 ipratropium-albuterol (DUONEB) 0.5 mg-3 mg(2.5 mg base)/3 mL nebu Inhale 3 mL as instructed every 4 hours as needed for wheezing/shortness of breath. 3 mL 3 Nebulizers 1 Each as directed. Dx: wheezing, recurrent acute bronchitis, 1 Each 0 Nebulizer Accessories misc 1 Each as directed. Dx: wheezing, recurrent acute bronchitis, Tubing and mask for nebulizer 1 Each 0 amoxicillin-clavulanate potassium (AUGMENTIN) 875-125 mg per tablet Take 1 tablet by mouth two times a day for 7 days. 14 tablet 0 fluticasone (FLONASE) 50 mcg/actuation nasal spray Use 2 Sprays in each nostril once daily. Rinse mouth after use. 1 Each 0 fluticasone (FLOVENT HFA) 110 mcg/actuation inhaler Inhale 1 Puff as instructed twice daily. Rinse mouth after using. 12 g 5 omeprazole (PRILOSEC) 40 mg capsule Take 1 capsule by mouth twice daily. Open capsules 180 capsule 2 maalox-lidocaine (GI COCKTAIL) 2:1 liqd Take 5 mL by mouth every 4 hours as needed for up to 30 doses. (Patient not taking: Reported on 2023) 30 mL 0 0.9 % sodium chloride (NACL 0.9%) 0.9% solp Please administer over 2 hours. (Patient not taking: Reported on 2023) 1000 mL 0 oxyCODONE IR (ROXICODONE) 5 mg immediate release tablet Take 1 tablet by mouth every 6 hours as needed for pain. (Patient not taking: Reported on 04/05/2023) 8 tablet 0 gzzbre-qalormsi-daejobn (CREON) 36,000-114,000- 180,000 unit delayed release capsule Take 3 capsules by mouth three times daily with meals. 810 capsule 0 Magnesium Oxide 500 mg tab Take 1 tablet by mouth once daily. (Patient not taking: Reported on 2023) 90 tablet 3 Miscellaneous Me (more content not included)... [facility] 2023 History of Present illness Narrative This note was created using Synchris. Subjective Ning Ann is a 53 year old female. HPI Patient presents with a chief complaint of left ear pain. She states she had COVID at the beginning of May. She still has sinus pressure and congestion and her ear has been popping and bothering her. No drainage out of her ear. Denies chest pain. She states she is still coughing and felt a little wheezy this morning. No vomiting or diarrhea. She has been using saline spray [id number]. Review of Systems Constitutional: Negative. HENT: Positive for congestion, ear pain, sinus pressure and sinus pain. Negative for ear discharge and sore throat. Respiratory: Positive for cough and wheezing. Cardiovascular: Negative. Gastrointestinal: Negative. Genitourinary: Negative. Musculoskeletal: Negative. All other systems reviewed and are negative. PAST MEDICAL HISTORY Diagnosis Date Abdominal pain 02/15/2016 Abdominal pain, epigastric Anxiety state, unspecified Aortic aneurysm (HCC) ascending thoracic Asthma Calcaneal spur 05/24/2011 Carpal tunnel syndrome, right 05/2013 moderate Colon polyps Depressive disorder, not elsewhere classified Diaphragmatic hernia without mention of obstruction or gangrene DVT (deep venous thrombosis) ([facility]) post foot surgery, x 2 interval Endometriosis ? HX not confirmed Fibromyalgia muscle pain GERD (gastroesophageal reflux disease) Hayfever 10/04/2010 HSV (herpes simplex virus) infection Hypercholesteremia Hypertension 01/2017 Impaired fasting glucose 08/2013 5.7% A1C Mild intermittent asthma without complication 10/27/2019 NNEKA (obstructive sleep apnea) 10/27/2019 Patellofemoral disorder 03/09/2009 PONV (postoperative nausea and vomiting) 03/17/2015 PTSD (post-traumatic stress disorder) per counseling center rheumatoid arthritis Right carpal tunnel syndrome 06/30/2013 Right hand paresthesia 04/28/2013 Seizures ([facility]) Snoring Temporomandibular joint disorders, unspecified Toenail deformity 04/28/2013 Trigger middle finger of right hand 12/15/2014 Trigger ring finger of right hand 12/15/2014 Vitamin D deficiency 03/2013 Current Outpatient Medications Medication Sig Dispense Refill ZINC ACETATE ORAL Take 1 tablet by mouth once daily. Ascorbic Acid (VITAMIN C) 1,000 mg tablet Take 1,000 mg by mouth once daily. no115/iron/folic acid ( 19 ORAL) Take 1 tablet by mouth once daily. cetirizine (ZYRTEC) 10 mg tablet Take 1 tablet by mouth once daily. 30 tablet 2 valACYclovir (VALTREX) 500 mg tablet Take 1 tablet by mouth two times a day. 60 tablet 5 rOPINIRole (REQUIP) 0.5 mg tablet Take 1-2 tablets by mouth at bedtime as needed (restless legs). 60 tablet 5 escitalopram oxalate (LEXAPRO) 5 mg tablet Take 1 tablet by mouth daily at bedtime. For mood [address] (PROTONIX) 40 mg tablet Take 1 tablet by mouth once daily. 180 tablet 0 Blood Pressure Monitor 1 Each as directed. Blood pressure KIT, Dx: HTN 1 Each 0 ondansetron orally disintegrating (ZOFRAN ODT) 4 mg disintegrating tablet Take 1 tablet by mouth every 8 hours as needed for nausea/vomiting. 20 tablet 1 ipratropium-albuterol (DUONEB) 0.5 mg-3 mg(2.5 mg base)/3 mL nebu Inhale 3 mL as instructed every 4 hours as needed for wheezing/shortness of breath. 3 mL 3 Nebulizers 1 Each as directed. Dx: wheezing, recurrent acute bronchitis, 1 Each 0 Nebulizer Accessories misc 1 Each as directed. Dx: wheezing, recurrent acute bronchitis, Tubing and mask for nebulizer 1 Each 0 amoxicillin-clavulanate potassium (AUGMENTIN) 875-125 mg per tablet Take 1 tablet by mouth two times a day for 7 days. 14 tablet 0 fluticasone (FLONASE) 50 mcg/actuation nasal spray Use 2 Sprays in each nostril once daily. Rinse mouth after use. 1 Each 0 fluticasone (FLOVENT HFA) 110 mcg/actuation inhaler Inhale 1 Puff as instructed twice daily. Rinse mouth after using. 12 g 5 omeprazole (PRILOSEC) 40 mg capsule Take 1 capsule by mouth twice daily. Open capsules 180 capsule 2 maalox-lidocaine (GI COCKTAIL) 2:1 liqd Take 5 mL by mouth every 4 hours as needed for up to 30 doses. (Patient not taking: Reported on 2023) 30 mL 0 0.9 % sodium chloride (NACL 0.9%) 0.9% solp Please administer over 2 hours. (Patient not taking: Reported on 2023) 1000 mL 0 oxyCODONE IR (ROXICODONE) 5 mg immediate release tablet Take 1 tablet by mouth every 6 hours as needed for pain. (Patient not taking: Reported on 04/05/2023) 8 tablet 0 vqzajj-nbcqrnpe-dgzmpxi (CREON) 36,000-114,000- 180,000 unit delayed release capsule Take 3 capsules by mouth three times daily with meals. 810 capsule 0 Magnesium Oxide 500 mg tab Take 1 tablet by mouth once daily. (Patient not taking: Reported on 2023) 90 tablet 3 Miscellaneous Medical Supply (BLOOD PRESSURE CUFF) 1 Each once daily. 1 Each 0 cyclobenzaprine (FLEXERIL) 10 mg tablet Take 1 tablet by mouth three times daily as needed for muscle spasm. (Patient not taking: Reported on 2023) 30 tablet 0 triamcinolone acetonide (NASACORT) 55 mcg nasal inhaler Use 2 Sprays in the nose once daily. (Patient not taking: Reported on 2023) 16.9 mL 5 cholecalciferol (VITAMIN D3) 50 mcg (2,000 unit) tablet Take 1 tablet by mouth once daily. (Patient not taking: Reported on 2023) 90 tablet 3 cyanocobalamin (VITAMIN B-12) 1,000 mcg tab Take 1 tablet by mouth once daily. (Patient not taking: Reported on 2023) 30 tablet 2 No current facility-administered medications for this visit. PAST SURGICAL HISTORY Procedure Laterality Date CARPAL TUNNEL 07/2013 right, Dr. Draper DELIVERY ONLY 1990 , low cervical COLONOSCOPY 08/11/2014 normal, repeat in 5 years COLONOSCOPY FLX DX W/COLLJ SPEC WHEN PFRMD 06/24/2004 Colonoscopy/Dr. Cash COLONOSCOPY FLX DX W/COLLJ SPEC WHEN PFRMD 11/23/2017 Colonoscopy COLONOSCOPY W/BIOPSY SINGLE/MULTIPLE 05/04/2010 EGD EGD 08/11/2014 mild chronic gastritis EGD TRANSORAL BIOPSY SINGLE/MULTIPLE 05/04/2010 ESOPHAGOGASTRODUODENOSCOPY TRANSORAL DIAGNOSTIC 11/23/2017 EGD ESOPHAGOGASTRODUODENOSCOPY TRANSORAL DIAGNOSTIC 05/01/2019 EGD GASTRIC BYPASS HX 05/26/2022 INCISE FINGER TENDON SHEATH Right 03/23/2015 Right middle trigger finger release LAPAROSCOPIC TUBAL LIGATION/RING/CLIP 2012 alessandro elliott vesicouterine adhesions LAPAROSCOPY DIAGNOSTIC 2016 extensive KEVYN, severe LAPS SURG CHOLECYSTECTOMY W/CHOLANGIOGRAPHY 05/02/2006 LAPS W/VAG HYSTERECT 250 GM/&RMVL TUBE&/OVARIES 2013 [facility] bilateral salpingectomy, scar tissue LIDOCAINE IV treatments-Mohit Duran PAST SURGICAL HISTORY OF 01/13/2006 Bilateral Breast Reduction PAST SURGICAL HISTORY OF 06/14/2011 left foot for plantar fasciitis REVISE MEDIAN N/CARPAL TUNNEL SURG Left 03/22/2022 Left carpal tunnel release and injection left shoulder S CATH ABLATION THERMACHOICE 2013 uterine ablation FAMILY HISTORY Problem Relation Age of Onset Hypertension Mother Lipids Mother Alcohol/Drug Mother Allergies Mother Alcohol/Drug Father Thyroid Sister other (fibromyalgia) Sister other (brain) Sister surgery brain too big for her skull (plate) Blindness Sister Alcohol/Drug Brother Emphysema Maternal Grandmother Emphysema Maternal Grandfather Heart Paternal Grandmother Anesthesia Problems No Family History Social History Tobacco Use Smoking status: Never Smokeless tobacco: Never Vaping Use Vaping Use: Never used Substance Use Topics Alcohol use: Not Currently Drug use: No Objective BP 134/86 Pulse 62 Temp 36.3 C (97.4 F) Resp 20 Wt 85 kg (187 lb 6.3 oz) LMP 07/11/2012 SpO2 100% BMI 34.27 kg/m Physical Exam Vitals reviewed. Constitutional: Appearance: Normal appearance. HENT: Head: Normocephalic and atraumatic. Right Ear: Tympanic membrane, ear canal and external ear normal. Left Ear: Tympanic membrane, ear canal and external ear normal. Nose: Congestion present. Mouth/Throat: Mouth: Mucous membranes are moist. Pharynx: Oropharynx is clear. Cardiovascular: Rate and Rhythm: Normal rate and regular rhythm. Heart sounds: Normal heart sounds. Pulmonary: Effort: Pulmonary effort is normal. Breath sounds: Normal breath sounds. Musculoskeletal: Cervical back: Neck supple. Lymphadenopathy: Cervical: No cervical adenopathy. Skin: General: Skin is warm and dry. Findings: No rash. Neurological: General: No focal deficit present. Mental Status: She is alert and oriented to person, place, and time. Assessment and Plan ASSESSMENT/PLAN: 1. Acute pansinusitis, recurrence not specified - ICD9: 461.8, ICD10: J01.40 (primary diagnosis) - Will begin treatment with Augmentin 875 mg PO BID for 7 days - Supportive care with plenty of fluids, rest, and analgesia prn. - Follow up in 3-5 days if symptoms persist or worsen. 2. Otalgia of left ear - ICD9: 388.70, ICD10: H92.02 Likely eustachian tube dysfunction. Flonase rx, continue zyrtec, maybe try sudafed otc. Agapito Gonzalez PA-C documented in this encounter [facility] 04-13-2023 Instructions Liam Alanis PA - 04/13/2023 10:19 AM EST R.I.C.E. The general care of your injury includes the following: Resting, Icing, Compressing and Elevating the injured area. Remember this as RICE. REST: Limit the use of the injured body part. ICE: By applying ice to the affected area, swelling and pain can be reduced. Place some ice cubes in a re-sealable (Ziploc) bag and add some water. Put a thin washcloth between the bag and your skin. Apply the ice bag to the area for at least 20 minutes. Do this at least 4 times per day. Using the ice for longer times and more frequently is OK. NEVER APPLY ICE DIRECTLY TO THE SKIN. COMPRESS: Compression means to apply pressure around the injured area such as with a splint, cast or an marvel bandage. Compression decreases swelling and improves comfort. Compression should be tight enough to relieve swelling but not so tight as to decrease circulation. Increasing pain, numbness, tingling, or change in skin color, are all signs of decreased circulation. ELEVATE: Elevate the injured part. For example, elevate your foot by placing it on a chair while sitting, or propping it up on pillows when lying down. documented in this encounter [facility] 04-13-2023 History of Present illness Narrative Radiology Service Progress Note PATIENT NAME: Ning Ann DATE OF SERVICE: April 13, 2023 TIME: 9:51 AM PATIENT IDENTITY VERIFICATION COMPLETED USING TWO (2) IDENTIFIERS: Name and Date of confirmed by patient verbally. FALL SCREENING: Has the patient had 2 falls in the last year or 1 fall with injury or currently using an Ambulatory Assistive Device (Walker, Cane, Wheelchair, Crutches, etc.)? No PATIENT GENDER DATA: Female. status: : No status: NO. PATIENT RELEVANT IMPLANT DATA REVIEWED: Not Applicable PATIENT PRESENTS WITH AN IMPLANTABLE OR ATTACHED CAR DRIVER: No RADIOLOGY DEPARTMENT: General X-ray: Exam(s) Completed: Lower Extremity X-Ray(s): Foot, Right PERIPHERAL IV DATA: Not applicable SIGNED BY: RT Will(Sheila) April 13, 2023 9:51 AM documented in this encounter [facility] 04-13-2023 Note HNO ID: [id number] Author: CAMDEN RAMAN RT(R) Service: Radiology Author Type: Technologist Type: Progress Notes Filed: 04/13/2023 10:02 Note Text: Radiology Service Progress Note PATIENT NAME: Ning Ann DATE OF SERVICE: April 13, 2023 TIME: 9:51 AM PATIENT IDENTITY VERIFICATION COMPLETED USING TWO (2) IDENTIFIERS: Name and Date of confirmed by patient verbally. FALL SCREENING: Has the patient had 2 falls in the last year or 1 fall with injury or currently using an Ambulatory Assistive Device (Walker, Cane, Wheelchair, Crutches, etc.)? No PATIENT GENDER DATA: Female. status: : No status: NO. PATIENT RELEVANT IMPLANT DATA REVIEWED: Not Applicable PATIENT PRESENTS WITH AN IMPLANTABLE OR ATTACHED CAR DRIVER: No RADIOLOGY DEPARTMENT: General X-ray: Exam(s) Completed: Lower Extremity X-Ray(s): Foot, Right PERIPHERAL IV DATA: Not applicable SIGNED BY: RT Will(Sheila) April 13, 2023 9:51 AM [facility] 04-13-2023 Note HNO ID: [id number] Author: LIAM ALANIS PA Service: ? Author Type: Physician Candle Wicker Type: Progress Notes Filed: 04/13/2023 10:22 Note Text: This note was created using Kontronriter. Subjective Ning Ann is a 52 year old female. HPI 52-year-old female presents for foot pain. Patient has been having right foot pain for the past 2 days. She stepped wrong on her foot and has been having pain over the right lateral foot since then. She states that when she stepped down she kind of twisted her foot and felt a sharp pain in it. She reports pain is worse with ambulation. No numbness, occasionally has a little bit of tingling in her toes. She denies any fevers. No other injury or complaints. No history of surgery on this foot. PAST MEDICAL HISTORY Diagnosis Date Abdominal pain 02/15/2016 Abdominal pain, epigastric Anxiety state, unspecified Aortic aneurysm (HCC) ascending thoracic Asthma Calcaneal spur 05/24/2011 Carpal tunnel syndrome, right 05/2013 moderate Colon polyps Depressive disorder, not elsewhere classified Diaphragmatic hernia without mention of obstruction or gangrene DVT (deep venous thrombosis) (HCC) post foot surgery, x 2 interval Endometriosis ? HX not confirmed Fibromyalgia muscle pain GERD (gastroesophageal reflux disease) Hayfever 10/04/2010 HSV (herpes simplex virus) infection Hypercholesteremia Hypertension 01/2017 Impaired fasting glucose 08/2013 5.7% A1C Mild intermittent asthma without complication 10/27/2019 NNEKA (obstructive sleep apnea) 10/27/2019 Patellofemoral disorder 03/09/2009 PONV (postoperative nausea and vomiting) 03/17/2015 PTSD (post-traumatic stress disorder) per counseling center rheumatoid arthritis Right carpal tunnel syndrome 06/30/2013 Right hand paresthesia 04/28/2013 Seizures ([facility]) Snoring Temporomandibular joint disorders, unspecified Toenail deformity 04/28/2013 Trigger middle finger of right hand 12/15/2014 Trigger ring finger of right hand 12/15/2014 Vitamin D deficiency 03/2013 PAST SURGICAL HISTORY Procedure Laterality Date CARPAL TUNNEL 07/2013 right, Dr. Draper DELIVERY ONLY 1990 , low cervical COLONOSCOPY 08/11/2014 normal, repeat in 5 years COLONOSCOPY FLX DX W/COLLJ SPEC WHEN PFRMD 06/24/2004 Colonoscopy/Dr. Cash COLONOSCOPY FLX DX W/COLLJ SPEC WHEN PFRMD 11/23/2017 Colonoscopy COLONOSCOPY W/BIOPSY SINGLE/MULTIPLE 05/04/2010 EGD EGD 08/11/2014 mild chronic gastritis EGD TRANSORAL BIOPSY SINGLE/MULTIPLE 05/04/2010 ESOPHAGOGASTRODUODENOSCOPY TRANSORAL DIAGNOSTIC 11/23/2017 EGD ESOPHAGOGASTRODUODENOSCOPY TRANSORAL DIAGNOSTIC 05/01/2019 EGD GASTRIC BYPASS HX 05/26/2022 INCISE FINGER TENDON SHEATH Right 03/23/2015 Right middle trigger finger release LAPAROSCOPIC TUBAL LIGATION/RING/CLIP 2012 filshie, saw vesicouterine adhesions LAPAROSCOPY DIAGNOSTIC 2016 extensive KEVYN, severe LAPS SURG CHOLECYSTECTOMY W/CHOLANGIOGRAPHY 05/02/2006 LAPS W/VAG HYSTERECT 250 GM/ANDRMVL TUBEAND/OVARIES 2013 [facility] bilateral salpingectomy, scar tissue LIDOCAINE IV treatments-Mohit Duran PAST SURGICAL HISTORY OF 01/13/2006 Bilateral Breast Reduction PAST SURGICAL HISTORY OF 06/14/2011 left foot for plantar fasciitis REVISE MEDIAN N/CARPAL TUNNEL SURG Left 03/22/2022 Left carpal tunnel release and injection left shoulder S CATH ABLATION THERMACHOICE 2012 uterine ablation ALLERGIES Miconazole, Milnacipran, Rivaroxaban, Morphine, Atorvastatin, Coumadin [Warfarin Sodium], Dilaudid [Hydromorphone (Bulk)], Lyrica [Pregabalin], and Prednisone MEDICATIONS cetirizine (ZYRTEC) 10 mg tablet Take 1 tablet by mouth once daily. valACYclovir (VALTREX) 500 mg tablet Take 1 tablet by mouth two times a day. rOPINIRole (REQUIP) 0.5 mg tablet Take 1-2 tablets by mouth at bedtime as needed (restless legs). escitalopram oxalate (LEXAPRO) 5 mg tablet Take 1 tablet by mouth daily at bedtime. For mood pantoprazole DR (PROTONIX) 40 mg tablet Take 1 tablet by mouth once daily. fluticasone (FLOVENT HFA) 110 mcg/actuation inhaler Inhale 1 Puff as instructed twice daily. Rinse mouth after using. omeprazole (PRILOSEC) 40 mg capsule Take 1 capsule by mouth twice daily. Open capsules maalox-lidocaine (GI COCKTAIL) 2:1 liqd Take 5 mL by mouth every 4 hours as needed for up to 30 doses. Blood Pressure Monitor 1 Each as directed. Blood pressure KIT, Dx: HTN 0.9 % sodium chloride (NACL 0.9%) 0.9% solp Please administer over 2 hours. ondansetron orally disintegrating (ZOFRAN ODT) 4 mg disintegrating tablet Take 1 tablet by mouth every 8 hours as needed for nausea/vomiting. oxyCODONE IR (ROXICODONE) 5 mg immediate release tablet Take 1 tablet by mouth every 6 hours as needed for pain. (Patient not taking: Reported on 04/05/2023) xictgt-escrarlo-oecktkk (CREON) 36,000-114,000- 180,000 unit delayed release capsule Take 3 capsules by mouth three times daily with (more content not included)... [facility] 04-13-2023 History of Present illness Narrative This note was created using Seeoter. Subjective Ning Ann is a 52 year old female. HPI 52-year-old female presents for foot pain. Patient has been having right foot pain for the past 2 days. She stepped wrong on her foot and has been having pain over the right lateral foot since then. She states that when she stepped down she kind of twisted her foot and felt a sharp pain in it. She reports pain is worse with ambulation. No numbness, occasionally has a little bit of tingling in her toes. She denies any fevers. No other injury or complaints. No history of surgery on this foot. PAST MEDICAL HISTORY Diagnosis Date Abdominal pain 02/15/2016 Abdominal pain, epigastric Anxiety state, unspecified Aortic aneurysm (HCC) ascending thoracic Asthma Calcaneal spur 05/24/2011 Carpal tunnel syndrome, right 05/2013 moderate Colon polyps Depressive disorder, not elsewhere classified Diaphragmatic hernia without mention of obstruction or gangrene DVT (deep venous thrombosis) (HCC) post foot surgery, x 2 interval Endometriosis ? HX not confirmed Fibromyalgia muscle pain GERD (gastroesophageal reflux disease) Hayfever 10/04/2010 HSV (herpes simplex virus) infection Hypercholesteremia Hypertension 01/2017 Impaired fasting glucose 08/2013 5.7% A1C Mild intermittent asthma without complication 10/27/2019 NNEKA (obstructive sleep apnea) 10/27/2019 Patellofemoral disorder 03/09/2009 PONV (postoperative nausea and vomiting) 03/17/2015 PTSD (post-traumatic stress disorder) per counseling center rheumatoid arthritis Right carpal tunnel syndrome 06/30/2013 Right hand paresthesia 04/28/2013 Seizures (HCC) Snoring Temporomandibular joint disorders, unspecified Toenail deformity 04/28/2013 Trigger middle finger of right hand 12/15/2014 Trigger ring finger of right hand 12/15/2014 Vitamin D deficiency 03/2013 PAST SURGICAL HISTORY Procedure Laterality Date CARPAL TUNNEL 07/2013 right, Dr. Draper DELIVERY ONLY 1990 , low cervical COLONOSCOPY 08/11/2014 normal, repeat in 5 years COLONOSCOPY FLX DX W/COLLJ SPEC WHEN PFRMD 06/24/2004 Colonoscopy/Dr. Cash COLONOSCOPY FLX DX W/COLLJ SPEC WHEN PFRMD 11/23/2017 Colonoscopy COLONOSCOPY W/BIOPSY SINGLE/MULTIPLE 05/04/2010 EGD EGD 08/11/2014 mild chronic gastritis EGD TRANSORAL BIOPSY SINGLE/MULTIPLE 05/04/2010 ESOPHAGOGASTRODUODENOSCOPY TRANSORAL DIAGNOSTIC 11/23/2017 EGD ESOPHAGOGASTRODUODENOSCOPY TRANSORAL DIAGNOSTIC 05/01/2019 EGD GASTRIC BYPASS HX 05/26/2022 INCISE FINGER TENDON SHEATH Right 03/23/2015 Right middle trigger finger release LAPAROSCOPIC TUBAL LIGATION/RING/CLIP 2012 alessandro elliott vesicouterine adhesions LAPAROSCOPY DIAGNOSTIC 2016 extensive KEVYN, severe LAPS SURG CHOLECYSTECTOMY W/CHOLANGIOGRAPHY 05/02/2006 LAPS W/VAG HYSTERECT 250 GM/&RMVL TUBE&/OVARIES 2014 [facility] bilateral salpingectomy, scar tissue LIDOCAINE IV treatments-Mohit Duran PAST SURGICAL HISTORY OF 01/13/2006 Bilateral Breast Reduction PAST SURGICAL HISTORY OF 06/14/2011 left foot for plantar fasciitis REVISE MEDIAN N/CARPAL TUNNEL SURG Left 03/22/2022 Left carpal tunnel release and injection left shoulder S CATH ABLATION THERMACHOICE 2012 uterine ablation ALLERGIES Miconazole, Milnacipran, Rivaroxaban, Morphine, Atorvastatin, Coumadin [Warfarin Sodium], Dilaudid [Hydromorphone (Bulk)], Lyrica [Pregabalin], and Prednisone MEDICATIONS cetirizine (ZYRTEC) 10 mg tablet Take 1 tablet by mouth once daily. valACYclovir (VALTREX) 500 mg tablet Take 1 tablet by mouth two times a day. rOPINIRole (REQUIP) 0.5 mg tablet Take 1-2 tablets by mouth at bedtime as needed (restless legs). escitalopram oxalate (LEXAPRO) 5 mg tablet Take 1 tablet by mouth daily at bedtime. For mood pantoprazole DR (PROTONIX) 40 mg tablet Take 1 tablet by mouth once daily. fluticasone (FLOVENT HFA) 110 mcg/actuation inhaler Inhale 1 Puff as instructed twice daily. Rinse mouth after using. omeprazole (PRILOSEC) 40 mg capsule Take 1 capsule by mouth twice daily. Open capsules maalox-lidocaine (GI COCKTAIL) 2:1 liqd Take 5 mL by mouth every 4 hours as needed for up to 30 doses. Blood Pressure Monitor 1 Each as directed. Blood pressure KIT, Dx: HTN 0.9 % sodium chloride (NACL 0.9%) 0.9% solp Please administer over 2 hours. ondansetron orally disintegrating (ZOFRAN ODT) 4 mg disintegrating tablet Take 1 tablet by mouth every 8 hours as needed for nausea/vomiting. oxyCODONE IR (ROXICODONE) 5 mg immediate release tablet Take 1 tablet by mouth every 6 hours as needed for pain. (Patient not taking: Reported on 04/05/2023) lcmpem-dzkgfjpp-pcgjskt (CREON) 36,000-114,000- 180,000 unit delayed release capsule Take 3 capsules by mouth three times daily with meals. Magnesium Oxide 500 mg tab Take 1 tablet by mouth once daily. Miscellaneous Medical Supply (BLOOD PRESSURE CUFF) 1 Each once daily. cyclobenzaprine (FLEXERIL) 10 mg tablet Take 1 tablet by mouth three times daily as needed for muscle spasm. triamcinolone acetonide (NASACORT) 55 mcg nasal inhaler Use 2 Sprays in the nose once daily. cholecalciferol (VITAMIN D3) 50 mcg (2,000 unit) tablet Take 1 tablet by mouth once daily. cyanocobalamin (VITAMIN B-12) 1,000 mcg tab Take 1 tablet by mouth once daily. ipratropium-albuterol (DUONEB) 0.5 mg-3 mg(2.5 mg base)/3 mL nebu Inhale 3 mL as instructed every 4 hours as needed for wheezing/shortness of breath. Nebulizers 1 Each as directed. Dx: wheezing, recurrent acute bronchitis, Nebulizer Accessories misc 1 Each as directed. Dx: wheezing, recurrent acute bronchitis, Tubing and mask for nebulizer FAMILY HISTORY Problem Relation Age of Onset Hypertension Mother Lipids Mother Alcohol/Drug Mother Allergies Mother Alcohol/Drug Father Thyroid Sister other (fibromyalgia) Sister other (brain) Sister surgery brain too big for her skull (plate) Blindness Sister Alcohol/Drug Brother Emphysema Maternal Grandmother Emphysema Maternal Grandfather Heart Paternal Grandmother Anesthesia Problems No Family History Social History Tobacco Use Smoking status: Never Smokeless tobacco: Never Vaping Use Vaping Use: Never used Substance Use Topics Alcohol use: Not Currently Drug use: No Review of Systems Constitutional: Negative for chills and fever. HENT: Negative for congestion, ear pain and sore throat. Respiratory: Negative for cough and shortness of breath. Cardiovascular: Negative for chest pain. Gastrointestinal: Negative for diarrhea and vomiting. Musculoskeletal: Positive for arthralgias. Objective BP 144/84 Pulse 63 Temp 36.1 C (97 F) Resp 18 Wt 86.8 kg (191 lb 6.4 oz) LMP 07/11/2012 SpO2 98% BMI 35.01 kg/m Physical Exam Vitals and nursing note reviewed. Constitutional: General: She is not in acute distress. Appearance: Normal appearance. She is not toxic-appearing. Musculoskeletal: Right foot: Normal range of motion and normal capillary refill. Tenderness and bony tenderness present. No swelling or deformity. Normal pulse. Comments: Tenderness over distal right fifth metatarsal. No bruising or deformity. No significant swelling. DP and PT pulses 2+. Normal sensation. Cap refill less than 2 seconds. Nontender ankle. Skin: General: Skin is warm and dry. Neurological: Mental Status: She is alert. Assessment and Plan ASSESSMENT/PLAN: 1. Foot pain, right - ICD9: 729.5, ICD10: M79.671 - XR FOOT GENERAL 3V AP/LAT/OBL RIGHT-no acute fractures. Degenerative changes. -Recommend rest, ice, Tylenol/Motrin as needed for pain. -Follow-up with PCP if no improvement in 1 week. -Patient able to ambulate. Diagnosis and treatment plan were discussed and questions were answered to the patient's satisfaction. Pt acknowledged understanding of concepts and follow up plan. Specific signs and symptoms that would indicate the need for higher level of care were discussed in detail warranting prompt ER evaluation. PRINCESS Ferrera documented in this encounter [facility] 04-05-2023 Note HNO ID: [id number] Author: JESSI LUU APRN.EVALUATION MANAGER Service: ? Author Type: Nurse Practitioner Type: Progress Notes Filed: 04/05/2023 10:51 Note Text: This note was created using Kontronriter. Subjective Ning Ann is a 52 year old female. 52 year old female with PMH fibromyalgia, RLS, HTN, ashtma, GERD, IBS, anxiety, and PTSD presents for illness. 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 Has used Tylenol (states history of bypass surgery and cannot take NSAIDs) The history is provided by the patient. No speech and language assistant was used. Cough This is a new problem. The current episode started 2 days ago. The problem occurs constantly. The problem has not changed since onset.The cough is Non-productive. There has been no fever. Associated symptoms include chills, ear congestion, ear pain, headaches, rhinorrhea and myalgias. Pertinent negatives include no chest pain, no sweats, no weight loss, no sore throat, no shortness of breath, no wheezing and no eye redness. Treatments tried: Tylenol. The treatment provided no relief. She is not a smoker. Her past medical history does not include bronchitis, pneumonia, bronchiectasis, COPD, emphysema or asthma. PAST MEDICAL HISTORY Diagnosis Date Abdominal pain 02/15/2016 Abdominal pain, epigastric Anxiety state, unspecified Aortic aneurysm (HCC) ascending thoracic Asthma Calcaneal spur 05/24/2011 Carpal tunnel syndrome, right 05/2013 moderate Colon polyps Depressive disorder, not elsewhere classified Diaphragmatic hernia without mention of obstruction or gangrene DVT (deep venous thrombosis) ([facility]) post foot surgery, x 2 interval Endometriosis ? HX not confirmed Fibromyalgia muscle pain GERD (gastroesophageal reflux disease) Hayfever 10/04/2010 HSV (herpes simplex virus) infection Hypercholesteremia Hypertension 01/2017 Impaired fasting glucose 08/2013 5.7% A1C Mild intermittent asthma without complication 10/27/2019 NNEKA (obstructive sleep apnea) 10/27/2019 Patellofemoral disorder 03/09/2009 PONV (postoperative nausea and vomiting) 03/17/2015 PTSD (post-traumatic stress disorder) per counseling center rheumatoid arthritis Right carpal tunnel syndrome 06/30/2013 Right hand paresthesia 04/28/2013 Seizures (HCC) Snoring Temporomandibular joint disorders, unspecified Toenail deformity 04/28/2013 Trigger middle finger of right hand 12/15/2014 Trigger ring finger of right hand 12/15/2014 Vitamin D deficiency 03/2013 PAST SURGICAL HISTORY Procedure Laterality Date CARPAL TUNNEL 07/2013 right, Dr. Draper DELIVERY ONLY 1990 , low cervical COLONOSCOPY 08/11/2014 normal, repeat in 5 years COLONOSCOPY FLX DX W/COLLJ SPEC WHEN PFRMD 06/24/2004 Colonoscopy/Dr. Cash COLONOSCOPY FLX DX W/COLLJ SPEC WHEN PFRMD 11/23/2017 Colonoscopy COLONOSCOPY W/BIOPSY SINGLE/MULTIPLE 05/04/2010 EGD EGD 08/11/2014 mild chronic gastritis EGD TRANSORAL BIOPSY SINGLE/MULTIPLE 05/04/2010 ESOPHAGOGASTRODUODENOSCOPY TRANSORAL DIAGNOSTIC 11/23/2017 EGD ESOPHAGOGASTRODUODENOSCOPY TRANSORAL DIAGNOSTIC 05/01/2019 EGD GASTRIC BYPASS HX 05/26/2022 INCISE FINGER TENDON SHEATH Right 03/23/2015 Right middle trigger finger release LAPAROSCOPIC TUBAL LIGATION/RING/CLIP 2012 alessandro elliott vesicouterine adhesions LAPAROSCOPY DIAGNOSTIC 2016 extensive KEVYN, severe LAPS SURG CHOLECYSTECTOMY W/CHOLANGIOGRAPHY 05/02/2006 LAPS W/VAG HYSTERECT 250 GM/ANDRMVL TUBEAND/OVARIES 2014 [facility] bilateral salpingectomy, scar tissue LIDOCAINE IV treatments-Mohit Duran PAST SURGICAL HISTORY OF 01/13/2006 Bilateral Breast Reduction PAST SURGICAL HISTORY OF 06/14/2011 left foot for plantar fasciitis REVISE MEDIAN N/CARPAL TUNNEL SURG Left 03/22/2022 Left carpal tunnel release and injection left shoulder S CATH ABLATION THERMACHOICE 2012 uterine ablation ALLERGIES Miconazole, Milnacipran, Rivaroxaban, Morphine, Atorvastatin, Coumadin [Warfarin Sodium], Dilaudid [Hydromorphone (Bulk)], Lyrica [Pregabalin], and Prednisone MEDICATIONS cetirizine (ZYRTEC) 10 mg tablet Take 1 tablet by mouth once daily. valACYclovir (VALTREX) 500 mg tablet Take 1 tablet by mouth two times a day. rOPINIRole (REQUIP) 0.5 mg tablet Take 1-2 tablets by mouth at bedtime as needed (restless legs). escitalopram oxalate (LEXAPRO) 5 mg tablet Take 1 tablet by mouth daily at bedtime. For mood pantoprazole DR (PROTONIX) 40 mg tablet Take 1 tablet by mouth once daily. fluticasone (FLOVENT HFA) 110 mcg/actuation inhaler Inhale 1 Puff as instructed twice daily. Rinse mouth after using. maalox-lidocaine (GI COCKTAIL) 2:1 liqd Take 5 mL by mouth ever (more content not included)... [facility] 03-28-2023 Note Patient Outreach (IN [facility]) -------- NING ANN ([id number]) 1970 F NFR Date Time Provider Department 03/28/23 TANG OLGUIN During your visit today, we recorded the following information about you: Allergies As of Date: 03/28/2023 Noted Allergy Reaction MICONAZOLE 01/13/2004 9 - Itching MILNACIPRAN 07/19/2011 1 - Mental Status Change 14 - Other: See Comments Comments: [place] weird. RIVAROXABAN 12/02/2014 14 - Other: See Comments 8 - GI Upset Comments: Taste of blood in mouth and muscle aches MORPHINE 03/09/2009 12 - Shortness of Breath ATORVASTATIN 08/28/2018 14 - Other: See Comments Comments: Leg aching and pain COUMADIN (WARFARIN SODIUM) 07/19/2011 14 - Other: See Comments Comments: headache,arm pain and back pain DILAUDID (HYDROMORPHONE (BULK)) 03/17/2013 14 - Other: See Comments Comments: Pain LYRICA (PREGABALIN) 07/22/2018 2 - Rash 3 - Cough 9 - Itching PREDNISONE 12/27/2021 9 - Itching Date Reviewed: 02/25/2023 Reviewed by: Ashley Land, YOLIE - Fully Assessed Visit Diagnosis:Encounter for screening mammogram for breast cancer [Z12.31] Order(s):[facility] SCREEN[facility] [[id number]] Order #: [id number] FUTURE Prescriptions as of 04/02/2023 - cetirizine (ZYRTEC) 10 mg tablet Take 1 tablet by mouth once daily. - valACYclovir (VALTREX) 500 mg tablet Take 1 tablet by mouth two times a day. - rOPINIRole (REQUIP) 0.5 mg tablet Take 1-2 tablets by mouth at bedtime as needed (restless legs). - escitalopram oxalate (LEXAPRO) 5 mg tablet Take 1 tablet by mouth daily at bedtime. For mood - pantoprazole DR (PROTONIX) 40 mg tablet Take 1 tablet by mouth once daily. - fluticasone (FLOVENT HFA) 110 mcg/actuation inhaler Inhale 1 Puff as instructed twice daily. Rinse mouth after using. - omeprazole (PRILOSEC) 40 mg capsule Take 1 capsule by mouth twice daily. Open capsules - maalox-lidocaine (GI COCKTAIL) 2:1 liqd Take 5 mL by mouth every 4 hours as needed for up to 30 doses. - Blood Pressure Monitor 1 Each as directed. Blood pressure KIT, Dx: HTN - 0.9 % sodium chloride (NACL 0.9%) 0.9% solp Please administer over 2 hours. - ondansetron orally disintegrating (ZOFRAN ODT) 4 mg disintegrating tablet Take 1 tablet by mouth every 8 hours as needed for nausea/vomiting. - oxyCODONE IR (ROXICODONE) 5 mg immediate release tablet Take 1 tablet by mouth every 6 hours as needed for pain. - wybqnd-hbhphpqu-lgkukwr (CREON) 36,000-114,000- 180,000 unit delayed release capsule Take 3 capsules by mouth three times daily with meals. - Magnesium Oxide 500 mg tab Take 1 tablet by mouth once daily. - Miscellaneous Medical Supply (BLOOD PRESSURE CUFF) 1 Each once daily. - cyclobenzaprine (FLEXERIL) 10 mg tablet Take 1 tablet by mouth three times daily as needed for muscle spasm. - triamcinolone acetonide (NASACORT) 55 mcg nasal inhaler Use 2 Sprays in the nose once daily. - cholecalciferol (VITAMIN D3) 50 mcg (2,000 unit) tablet Take 1 tablet by mouth once daily. - cyanocobalamin (VITAMIN B-12) 1,000 mcg tab Take 1 tablet by mouth once daily. - ipratropium-albuterol (DUONEB) 0.5 mg-3 mg(2.5 mg base)/3 mL nebu Inhale 3 mL as instructed every 4 hours as needed for wheezing/shortness of breath. - Nebulizers 1 Each as directed. Dx: wheezing, recurrent acute bronchitis, - Nebulizer Accessories misc 1 Each as directed. Dx: wheezing, recurrent acute bronchitis, Tubing and mask for nebulizer Problem List As Of Date 03/28/2023 Noted Resolved HYPERTROPHY OF BREAST [N62] 01/13/2004 05/18/2006 Endometriosis [617] 04/22/2014 Anxiety state [F41.1] Moderate single current episode of major depres* TM JOINT DISORDER, UNSPEC [M26.609] 05/18/2006 Unspecified Myalgia and Myositis [KNC6844] 11/12/2009 Other and unspecified hyperlipidemia [E78.5] 03/30/2005 Personal history of colonic polyps [Z86.010] 03/15/2006 07/01/2010 PAIN ABDOMEN( Right Upper Quadrant) [R10.11] 04/20/2006 05/18/2006 Hemorrhage of rectum and anus [K62.5] 03/17/2015 Abdominal Pain, Epigastric [R10.13] 11/12/2009 BILIARY DYSKINESIA [K82.8] 04/25/2006 03/17/2015 Obesity [E66.9] 05/18/2006 Other Malaise and Fatigue [R53.81, R53.83] 04/22/2007 11/12/2009 Acute bronchitis [J20.9] 07/13/2008 Contact Dermatitis and Other Eczema, due to Uns*07/13/2008 11/12/2009 Sinus Disorder [J34.9] 11/23/2008 11/12/2009 Patellofemoral disorder [M22.2X9] 03/09/2009 07/25/2016 Suicidal attempted 04/06/2009 Fibromyalgia [M79.7] 11/12/2009 IBS (irritable bowel syndrome) [K58.9] 11/12/2009 GERD (gastroesophageal reflux disease) [K21.9] 11/12/2009 Epigastric pain [R10.13] 12/27/2009 03/17/2015 Bacterial infection due to H. pylori [A04.8] 02/09/2010 07/01/2010 Colon polyps [K63.5] 02/09/2010 Acute gastritis without mention of hemorrhage [*05/04/2010 07/01/2010 Diarrhea [R19.7] 05/04/2010 07/01/2010 Vertigo [R42] 10/04/2010 Hayfeve (more content not included)... [facility] 12-18-2022 Miscellaneous Notes Patient has been identified by name and date of : Yes Requested Prescriptions Pending Prescriptions Disp Refills cetirizine (ZYRTEC) 10 mg tablet 30 tablet 2 Sig: Take 1 tablet by mouth once daily. RX INSTRUCTIONS: Patient aware RX will be sent to pharmacy. No need to notify patient. Patient last office visit: 10/10/22 Patient next office visit: 03/30/23 Lian Smith MA documented in this encounter [facility] 12-18-2022 Miscellaneous Notes Judith--10/10/22 Nov--03/30/23 Last refill--06/23/22 30 with 5 refills Last labs--10/10/22 documented in this encounter [facility] 12-14-2022 Miscellaneous Notes Patient given results and verbalized understanding of instructions given. Milagros Cruz LPN Please notify that covid/flu testing negative. Continue with plan of care as discussed during visit. documented in this encounter [facility] 12-13-2022 Note HNO ID: [id number] Author: Agapito Gonzalez PA-C Service: ? Author Type: Physician Candle Wicker Type: Progress Notes Filed: 12/13/2022 5:50 PM Note Text: This note was created using Kontronriter. Nikole Ann is a 52 year old female. HPI Patient presents with sinus pressure, ear pressure and congestion for over a week. She was seen in the ER 2 days ago for dizziness and dehydration. She did feel better after 2 L of fluid there. Her labs were stable and unremarkable. She states she has not been able to eat much due to having a gastric bypass surgery in May. She states she has drank about 60 ounces of fluids today. She did start to cough today. She has not had a fever. 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 Review of Systems Constitutional: Positive for fatigue. HENT: Positive for congestion, ear pain, postnasal drip, sinus pressure and sinus pain. Negative for sore throat. Respiratory: Positive for cough. Negative for shortness of breath. Genitourinary: Negative. Musculoskeletal: Positive for myalgias. Neurological: Positive for headaches. All other systems reviewed and are negative. PAST MEDICAL HISTORY Diagnosis Date Abdominal pain 02/15/2016 Abdominal pain, epigastric Anxiety state, unspecified Aortic aneurysm (HCC) ascending thoracic Asthma Calcaneal spur 05/24/2011 Carpal tunnel syndrome, right 05/2013 moderate Colon polyps Depressive disorder, not elsewhere classified Diaphragmatic hernia without mention of obstruction or gangrene DVT (deep venous thrombosis) (HCC) post foot surgery, x 2 interval Endometriosis ? HX not confirmed Fibromyalgia muscle pain GERD (gastroesophageal reflux disease) Hayfever 10/04/2010 HSV (herpes simplex virus) infection Hypercholesteremia Hypertension 01/2017 Impaired fasting glucose 08/2013 5.7% A1C Mild intermittent asthma without complication 10/27/2019 NNEKA (obstructive sleep apnea) 10/27/2019 Patellofemoral disorder 03/09/2009 PONV (postoperative nausea and vomiting) 03/17/2015 PTSD (post-traumatic stress disorder) per counseling center rheumatoid arthritis Right carpal tunnel syndrome 06/30/2013 Right hand paresthesia 04/28/2013 Seizures ([facility]) Snoring Temporomandibular joint disorders, unspecified Toenail deformity 04/28/2013 Trigger middle finger of right hand 12/15/2014 Trigger ring finger of right hand 12/15/2014 Vitamin D deficiency 03/2013 Current Outpatient Medications Medication Sig Dispense Refill amoxicillin-clavulanic acid (AUGMENTIN) 875-125 mg per tablet Take 1 tablet by mouth two times a day for 7 days. [address] (PROTONIX) 40 mg tablet Take 1 tablet by mouth once daily. 180 tablet 0 cetirizine (ZYRTEC) 10 mg tablet Take 1 tablet by mouth once daily. 30 tablet 2 fluticasone (FLOVENT HFA) 110 mcg/actuation inhaler Inhale 1 Puff as instructed twice daily. Rinse mouth after using. 12 g 5 omeprazole (PRILOSEC) 40 mg capsule Take 1 capsule by mouth twice daily. Open capsules 180 capsule 2 sucralfate (CARAFATE) 100 mg/mL suspension Take 10 mL by mouth four times daily. 3600 mL 1 maalox-lidocaine (GI COCKTAIL) 2:1 liqd Take 5 mL by mouth every 4 hours as needed for up to 30 doses. 30 mL 0 rOPINIRole (REQUIP) 0.5 mg tablet Take 1-2 tablets by mouth at bedtime as needed (restless legs). 60 tablet 5 Blood Pressure Monitor 1 Each as directed. Blood pressure KIT, Dx: HTN 1 Each 0 escitalopram oxalate (LEXAPRO) 5 mg tablet Take 1 tablet by mouth daily at bedtime. For mood 30 tablet 5 0.9 % sodium chloride (NACL 0.9%) 0.9% solp Please administer over 2 hours. 1000 mL 0 ondansetron orally disintegrating (ZOFRAN ODT) 4 mg disintegrating tablet Take 1 tablet by mouth every 8 hours as needed for nausea/vomiting. 20 tablet 1 oxyCODONE IR (ROXICODONE) 5 mg immediate release tablet Take 1 tablet by mouth every 6 hours as needed for pain. 8 tablet 0 ijwgsv-bywwwtwz-aekhepr (CREON) 36,000-114,000- 180,000 unit delayed release capsule Take 3 capsules by mouth three times daily with meals. 810 capsule 0 valACYclovir (VALTREX) 500 mg tablet Take 1 tablet by mouth twice daily. 60 tablet 5 Magnesium Oxide 500 mg tab Take 1 tablet by mouth once daily. 90 tablet 3 Miscellaneous Medical Supply (BLOOD PRESSURE CUFF) 1 Each once daily. 1 Each 0 cyclobenzaprine (FLEXERIL) 10 mg tablet Take 1 tablet by mouth three times daily as needed for muscle spasm. 30 tablet 0 triamcinolone acetonide (NASACORT) 55 mcg nasal inhaler Use 2 Sprays in the nose once daily. 16.9 mL 5 cholecalciferol (VITAMIN D3) 50 mcg (2,000 unit) tablet Take 1 tablet by mouth once daily. 90 tablet 3 cyanocobalamin (VITAMIN B-12) 1,000 mcg tab Take 1 tablet by mouth once daily. 30 tablet 2 ipratropium-albuterol (DUONEB) 0.5 mg-3 mg(2.5 mg base)/3 mL nebu Inhale 3 mL as instructed every 4 hours as needed for wheezing/shortness of breath. 3 mL 3 Nebulizers 1 E (more content not included)... [facility] 11-09-2022 Note Patient Name: Kaylin Ann Procedure Date: 11/09/2022 12:35 PM Date of : 1970 Admit Type: Outpatient Site: [facility] Ethnicity: Not or Race: White Attending MD: Kristal Recinos MD, [id number] Procedure: Upper EUS Indications: Common bile duct dilation (acquired) seen on MRI, Upper abdominal pain, Generalized abdominal pain, Assessment following Bernadine-en-Y gastric bypass Patient Profile: This is a 52 year old female. Refer to note in patient chart for documentation of history and physical. Providers: Kristal Recinos MD (Doctor), Amanda Muñoz RN (Nurse), Clive Boyer, Automotive Brake Specialist Referring: Medicines: Monitored Anesthesia Care Complications: No immediate complications. Procedure: After obtaining informed consent, the endoscope was passed under direct vision. Throughout the procedure, the patient's blood pressure, pulse, and oxygen saturations were monitored continuously. The endoscope was introduced through the mouth, and advanced to the jejunum. After obtaining informed consent, the endoscope was passed under direct vision. Throughout the procedure, the patient's blood pressure, pulse, and oxygen saturations were monitored continuously. The ultrasound scope was introduced through the mouth, and advanced to the stomach for ultrasound examination. Findings: ENDOSCOPIC FINDING: : The examined esophagus was normal. The Z-line was found 38 cm from the incisors. Evidence of a gastric bypass was found. A gastric pouch with a 5 cm length from the GE junction to the gastrojejunal anastomosis was found. The staple line appeared intact. The gastrojejunal anastomosis was characterized by healthy appearing mucosa. This was traversed. The unjna-et-mawbjxi limb was characterized by healthy appearing mucosa. The examined jejunum was normal. ENDOSONOGRAPHIC FINDING: : There was no sign of significant endosonographic abnormality in the genu of the pancreas, pancreatic body and pancreatic tail. The pancreatic duct measured up to 2 mm in diameter. The pancreas was well visualized, the pancreatic duct was well visualized from ampulla to tail, the pancreatic duct was thin in caliber, the pancreatic duct was regular in contour. Endosonographic images of the remnant stomach were unremarkable. No pathologic lymphadenopathy, no masses and no wall thickening were identified. Given limitations of post surgical anatomy (RYGB), the bile duct was unabe to be visualized. Estimated Blood Loss: Estimated blood loss: none. Impression: EGD: - Normal esophagus. - Z-line, 38 cm from the incisors. - Gastric bypass with a pouch 5 cm in length and intact staple line. Gastrojejunal anastomosis characterized by healthy appearing mucosa. - Normal examined jejunum. EUS: - There was no sign of significant pathology in the genu of the pancreas, pancreatic body and pancreatic tail. - Endosonographic images of the remnant stomach were unremarkable. - Given limitations of post surgical anatomy (RYGB), the bile duct was unabe to be visualized. Recommendation: - The patient will be observed post-procedure, until all discharge criteria are met. - Patient has a contact number available for emergencies. The signs and symptoms of potential delayed complications were discussed with the patient. Return to normal activities tomorrow. Written discharge instructions were provided to the patient. - Resume previous diet. - Continue present medications. Procedure Code(s): --- Professional --- 10190, Esophagogastroduodenoscopy, flexible, transoral; with endoscopic ultrasound examination limited to the esophagus, stomach or duodenum, and adjacent structures Diagnosis Code(s): --- Professional --- Z98.84, Bariatric surgery status (more content not included)... PROVATION - 10-19-2022 Miscellaneous Notes Pt called and is notified of providers results. Brenda Ng RN Please let patient know that overall her lab results are stable, no concerns Tang Olguin DO documented in this encounter [facility] 10-10-2022 History of Present illness Narrative CC: Ning Ann is a 52 year old female who presents to the office for follow up HPI: Surgery was on May 26 for Bernadine n Y bypass surgery. She feesl that she has adjusted to the smaller stomach size and she is tolerating foods that she should be eating and she is losing weight. Weight today at 205 lbs. Was recently having right upper abdominal discomfort, like a knot feeling. Was supposed to be seen by Dr. Cortez and had to have surgery rescheduled. Had RUQ US which showed dilated common bile duct at 11 mm. Was supposed to be scheduled by specialist at [facility] for this due to her recent surgery of Bernadine n Y bypass. Was told needs to have an MRCP procedure but hasn't had this scheduled- waiting on [facility] to schedule this testing. Had CT abd/pelvis which also showed this common bile duct dilation Struggling with some LH feeling with exercise so is avoiding exercise. + nausea and knot like feeling in right upper stomach. + fatigue. Feels that most of her symptoms are related to this abdominal concern. No fevers or chills. No vomiting, no diarrhea or blood in stool or jaundice. PAST MEDICAL HISTORY Diagnosis Date Abdominal pain 02/15/2016 Abdominal pain, epigastric Anxiety state, unspecified Aortic aneurysm (HCC) ascending thoracic Asthma Calcaneal spur 05/24/2011 Carpal tunnel syndrome, right 05/2013 moderate Colon polyps Depressive disorder, not elsewhere classified Diaphragmatic hernia without mention of obstruction or gangrene DVT (deep venous thrombosis) (HCC) post foot surgery, x 2 interval Endometriosis ? HX not confirmed Fibromyalgia muscle pain GERD (gastroesophageal reflux disease) Hayfever 10/04/2010 HSV (herpes simplex virus) infection Hypercholesteremia Hypertension 01/2017 Impaired fasting glucose 08/2013 5.7% A1C Mild intermittent asthma without complication 10/27/2019 NNEKA (obstructive sleep apnea) 10/27/2019 Patellofemoral disorder 03/09/2009 PONV (postoperative nausea and vomiting) 03/17/2015 PTSD (post-traumatic stress disorder) per counseling center rheumatoid arthritis Right carpal tunnel syndrome 06/30/2013 Right hand paresthesia 04/28/2013 Seizures (HCC) Snoring Temporomandibular joint disorders, unspecified Toenail deformity 04/28/2013 Trigger middle finger of right hand 12/15/2014 Trigger ring finger of right hand 12/15/2014 Vitamin D deficiency 03/2013 PAST SURGICAL HISTORY Procedure Laterality Date CARPAL TUNNEL 07/2013 right, Dr. Draper DELIVERY ONLY 1990 , low cervical COLONOSCOPY 08/11/2014 normal, repeat in 5 years COLONOSCOPY FLX DX W/COLLJ SPEC WHEN PFRMD 06/24/2004 Colonoscopy/Dr. Cash COLONOSCOPY FLX DX W/COLLJ SPEC WHEN PFRMD 11/23/2017 Colonoscopy COLONOSCOPY W/BIOPSY SINGLE/MULTIPLE 05/04/2010 EGD EGD 08/11/2014 mild chronic gastritis EGD TRANSORAL BIOPSY SINGLE/MULTIPLE 05/04/2010 ESOPHAGOGASTRODUODENOSCOPY TRANSORAL DIAGNOSTIC 11/23/2017 EGD ESOPHAGOGASTRODUODENOSCOPY TRANSORAL DIAGNOSTIC 05/01/2019 EGD INCISE FINGER TENDON SHEATH Right 03/23/2015 Right middle trigger finger release LAPAROSCOPIC TUBAL LIGATION/RING/CLIP 2012 alessandro elliott vesicouterine adhesions LAPAROSCOPY DIAGNOSTIC 2016 extensive KEVYN, severe LAPS SURG CHOLECYSTECTOMY W/CHOLANGIOGRAPHY 05/02/2006 LAPS W/VAG HYSTERECT 250 GM/&RMVL TUBE&/OVARIES 2014 [facility] bilateral salpingectomy, scar tissue LIDOCAINE IV treatments-Mohit Duran PAST SURGICAL HISTORY OF 01/13/2006 Bilateral Breast Reduction PAST SURGICAL HISTORY OF 06/14/2011 left foot for plantar fasciitis REVISE MEDIAN N/CARPAL TUNNEL SURG Left 03/22/2022 Left carpal tunnel release and injection left shoulder S CATH ABLATION THERMACHOICE 2012 uterine ablation Current Outpatient Medications Medication Sig cetirizine (ZYRTEC) 10 mg tablet Take 1 tablet by mouth once daily. fluticasone (FLOVENT HFA) 110 mcg/actuation inhaler Inhale 1 Puff as instructed twice daily. Rinse mouth after using. omeprazole (PRILOSEC) 40 mg capsule Take 1 capsule by mouth twice daily. Open capsules rOPINIRole (REQUIP) 0.5 mg tablet Take 1-2 tablets by mouth at bedtime as needed (restless legs). Blood Pressure Monitor 1 Each as directed. Blood pressure KIT, Dx: HTN escitalopram oxalate (LEXAPRO) 5 mg tablet Take 1 tablet by mouth daily at bedtime. For mood pantoprazole DR (PROTONIX) 40 mg tablet Take 1 tablet by mouth once daily. ondansetron orally disintegrating (ZOFRAN ODT) 4 mg disintegrating tablet Take 1 tablet by mouth every 8 hours as needed for nausea/vomiting. oxyCODONE IR (ROXICODONE) 5 mg immediate release tablet Take 1 tablet by mouth every 6 hours as needed for pain. wdniim-ywnzyvxo-zrfbtdo (CREON) 36,000-114,000- 180,000 unit delayed release capsule Take 3 capsules by mouth three times daily with meals. valACYclovir (VALTREX) 500 mg tablet Take 1 tablet by mouth twice daily. Miscellaneous Medical Supply (BLOOD PRESSURE CUFF) 1 Each once daily. triamcinolone acetonide (NASACORT) 55 mcg nasal inhaler Use 2 Sprays in the nose once daily. ipratropium-albuterol (DUONEB) 0.5 mg-3 mg(2.5 mg base)/3 mL nebu Inhale 3 mL as instructed every 4 hours as needed for wheezing/shortness of breath. Nebulizers 1 Each as directed. Dx: wheezing, recurrent acute bronchitis, Nebulizer Accessories misc 1 Each as directed. Dx: wheezing, recurrent acute bronchitis, Tubing and mask for nebulizer sucralfate (CARAFATE) 100 mg/mL suspension Take 10 mL by mouth four times daily. maalox-lidocaine (GI COCKTAIL) 2:1 liqd Take 5 mL by mouth every 4 hours as needed for up to 30 doses. 0.9 % sodium chloride (NACL 0.9%) 0.9% solp Please administer over 2 hours. Magnesium Oxide 500 mg tab Take 1 tablet by mouth once daily. cyclobenzaprine (FLEXERIL) 10 mg tablet Take 1 tablet by mouth three times daily as needed for muscle spasm. cholecalciferol (VITAMIN D3) 50 mcg (2,000 unit) tablet Take 1 tablet by mouth once daily. cyanocobalamin (VITAMIN B-12) 1,000 mcg tab Take 1 tablet by mouth once daily. No current facility-administered medications for this visit. ALLERGIES Allergen Reactions Miconazole Itching Milnacipran Mental Status Change, Other: See Comments [place] weird. Rivaroxaban Other: See Comments, GI Upset Taste of blood in mouth and muscle aches Morphine Shortness of Breath Atorvastatin Other: See Comments Leg aching and pain Coumadin [Warfarin * Other: See Comments headache,arm pain and back pain Dilaudid [Hydromorp* Other: See Comments Pain Lyrica [Pregabalin] Rash, Cough, Itching Prednisone Itching Social History Tobacco Use Smoking status: Never Smokeless tobacco: Never Vaping Use Vaping Use: Never used Substance Use Topics Alcohol use: Not Currently Drug use: No ROS: See HPI PE: BP 120/80 Pulse 64 Temp (Src) 98 (Left Tympanic) Resp 16 Wt 205 lb (93.0kg) LMP 07/11/2012 Gen: A&OX3, NAD, non-toxic appearing HEENT: PERRLA, EOMs intact b/l, nares without drainage, pharynx without erythema, exudate, lesions, or drainage. Uvula midline. Neck: No LAD, no thyromegaly, no meningismus. CV: RRR, no murmur Lungs: CTA b/l, no wheezing Skin: No rashes, lesions, or wounds on exposed skin. Abd: mild epigastric discomfort, no obvious distension or fluid wave, no r/r/g. No obvious masses No edema legs, normal pulses Normal gait ASSESSMENT/PLAN: 1. Fatigue, unspecified type - ICD9: 780.79, ICD10: R53.83 (primary diagnosis) Unsure if fatigue is regarding her recent pain as below or concerning any deficiencies due to recent Bernadine en Y bypass procedure. She is taking Bariatric vitamins. - TSH BLD - HEPATIC FUNCTION PNL - T4 FREE/FREE THYROX - T3 FREE BLD - COMP METABOLIC PANEL - VITAMIN B12 BLOOD - VITAMIN D 25 HYDROXY - MAGNESIUM BLD 2. Nausea - ICD9: 787.02, ICD10: R11.0 Needs follow up with Dr. Cortez/Product Distribution Specialist for further testing, recently found to have dilated CBD concerns and need for further determination of cause - TSH BLD - T4 FREE/FREE THYROX - T3 FREE BLD - COMP METABOLIC PANEL - MAGNESIUM BLD 3. RUQ abdominal pain - ICD9: 789.01, ICD10: R10.11 Needs follow up with Dr. Cortez/Product Distribution Specialist for further testing, recently found to have dilated CBD concerns and need for further determination of cause - TSH BLD - T4 FREE/FREE THYROX - T3 FREE BLD - COMP METABOLIC PANEL 4. Common bile duct dilation - ICD9: 576.8, ICD10: K83.8 Needs follow up with Dr. Cortez/Product Distribution Specialist for further testing, recently found to have dilated CBD concerns and need for further determination of cause - HEPATIC FUNCTION PNL - COMP METABOLIC PANEL 5. History of Bernadine-en-Y gastric bypass - ICD9: V45.86, ICD10: Z98.84 Needs follow up with Dr. Cortez/Product Distribution Specialist for further testing, recently found to have dilated CBD concerns and need for further determination of cause Tang Olguin DO Return if no improvement. Follow up with Tang Olguin DO. To ER if develops chest pain, shortness of breath Discussed risks, benefits, alternatives, and potential side effects of medications. Patient/Guardian expressed understanding and agreed with the plan. See patient instructions. Tang Olguin DO [address] [place] [address] documented in this encounter [facility] 10-02-2022 Miscellaneous Notes Call to pt and notified her of response below from Provider. 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 Barbara Rojas Ma Patient needs to go to ER immediately. Patient calls to report upper abdominal pain. Nurse triage completed. Protocol recommends go to ED now. Patient doesn't want to but will go to ED. Care advice reviewed. Patient verbalizes understanding. Reason for Disposition [1] Pain lasts > 10 minutes AND [2] age > 50 Answer Assessment - Initial Assessment Questions 1. LOCATION: Abdomen right side above the rib cage and right side below (groin area). Patient reports back pain, constipation, bloating. Inability to eat or drink. Previously recommended patient seek ED treatment. 2. RADIATION: to the back. 3. ONSET: A week ago. 4. SUDDEN: Sudden. 5. PATTERN Pain at the level of the rib cage: Constant. Lower right abdomen comes and goes. 6. SEVERITY: - MODERATE (4-7): interferes with normal activities or awakens from sleep, abdomen tender to touch 7. RECURRENT SYMPTOM: No, just since bariatric surgery 8. AGGRAVATING FACTORS: Food 9. CARDIAC SYMPTOMS: Nausea and chills. Patient reports she is not able to eat or drink anything. Denies chest pain, sweating, or difficulty breathing. 10. OTHER SYMPTOMS: Back pain. Denies diarrhea, fever, urination, or vomiting. Protocols used: Abdominal Pain - [id number] documented in this encounter [facility] 09-25-2022 Miscellaneous Notes BMI SPECIALTY CARE COORDINATION TELEPHONE ENCOUNTER Phoned patient upon learning of her call to office. She reported feeling bloated; passing gas but unable to have BM for several days. Says she has not been hydrating well because feeling bloated makes her uncomfortable. Tried taking colace with no relief. Recommended Miralax and increasing fluids; encouraged exercise. Patient stated she walked on treadmill this morning and felt like she might pass out. Denied dizziness and lightheadedness, but stated she felt weak. Patient stated concerns for pancreatic insufficiency and dehydration, remembering prior issues. Patient also complaining of back pain and upper abdominal pain with breathing. Advised patient to go to her local ER for evaluation and treatment. Patient stated understanding and agreed with plan. She will continue to keep this office updated. BMI Incoming Patient Nursing Line Call Summary: Situation/Concerns:Constipation and back pain. Has taken laxatives, nothing working. Background/Duration of event: Pass 3 weeks Assessment/Subjective symptoms: as noted above. Recommendation/How message sent to provider/nurse:Celina via Telephone Encounter. NATHAN Kent documented in this encounter [facility] 09-08-2022 Miscellaneous Notes OK to refill as ordered Froylan House MD Last office visit: 06/23/22 F/u scheduled: 11/01/22 Karen Middleton Ma documented in this encounter [facility] 09-08-2022 History of Present illness Narrative Patient was scheduled for a nutrition appointment today. The patient did not check into their scheduled appointment. I sent the patient a [employer] message encouraging them to reschedule their appointment by calling [phone]. documented in this encounter [facility] 09-06-2022 Miscellaneous Notes Patient has been identified by name and date of : Patient phones for refill(s): Requested Prescriptions Pending Prescriptions Disp Refills fluticasone (FLOVENT HFA) 110 mcg/actuation inhaler Sig: Inhale 1 Puff as instructed twice daily. Rinse mouth after using. Date of last office visit in primary care: 06/23/22 Last 2 Encounter Wt Readings: Date: Wt: 06/30/2022 103 kg (227 lb) 06/23/2022 104.8 kg (231 lb) Previous labs/tests for medication: Not applicable Please advise. Thank you. Alesha Madrigal LPN documented in this encounter [facility] 07-20-2022 Miscellaneous Notes Judith--06/23/22 Nov--nothing schedule Last refill-- Last labs-- documented in this encounter [facility] 07-20-2022 Miscellaneous Notes Patient has been identified by name and date of : Yes Requested Prescriptions Pending Prescriptions Disp Refills cetirizine (ZYRTEC) 10 mg tablet [Pharmacy Med Name: Cetirizine HCl 10 MG Oral Tablet] 30 tablet 0 Sig: Take 1 tablet by mouth once daily RX INSTRUCTIONS: Patient aware RX will be sent to pharmacy. No need to notify patient. Izabel Mcfarland MA Judith 06/2022 Nov 08/2022 Last refill: 05/2021 documented in this encounter [facility] 07-03-2022 History of Present illness Narrative Metabolic Surgery Postoperative Virtual Clinic Visit Name: Ning Ann This visit was performed virtually via Zoom technology due to the COVID-19 epidemic as an effort to protect patients and minimize exposure.? Virtual Visit (Audio/Visual) I have discussed the nature of this visit with the patient which will occur via [facility] (Phone, Virtual Visit) and she agrees to proceed with this interaction . Index Surgery Date of Surgery: 05/26/2022 Surgeon: Mayi Murillo MD Surgical Procedure: LAPAROSCOPIC GASTRIC RESTRICTIVE SURG W/ BYPASS & BERNADINE-EN-Y 150CM OR LESS Pre-surgical weight: 112.5 kg (248 lb) HPI: Today's Visit: There were no vitals taken for this visit. No weight on file for this encounter. Last Visit: Wt: 103 kg (227 lb) BMI: 41.52 kg/(m^2) Total weight loss: 22 Ib Doing well, better oral intake. She has been drinking Powerade zero, 2-3 a day. She has bought different protein shakes, turkey, eggs, tuna, etc... Denies acid reflux. Body weight today 227 Ib. Not constipated. She can start exercicing PHYSICAL EXAM: General - Normal, healthy, cooperative, in no acute distress, obese Able to interact verbally by video conference Psych - ORIENTATION: normal to time place, person and situation Mood/Affect: AFFECT AND MOOD: Normal Head/Neuro - Normal size and shape Facial appearance normal Pulmonary - respiratory effort normal Cardiovascular - patient describes extremities normal, warm, no cyanosis,no clubbing, and no edema Abdominal - Obese, Visible protrusions or hernias: No Incisions/scars: Healed, Skin - abnormal lesions not visualized Motor - patient seen sitting with Normal appearing strength and coordination Assessment A/P: Normal post-OP course Patient Active Problem List Other and unspecified hyperlipidemia Anxiety state Moderate single current episode of major depressive disorder (HCC) Colon polyps Fibromyalgia GERD (gastroesophageal reflux disease) IBS (irritable bowel syndrome) Status post gastric bypass for obesity Way's esophagus with dysplasia Hiatal hernia CRP elevated Multiple joint pain Pancreatic insufficiency Subacute cough Fatigue Dysuria Muscle spasm of back Nausea Bloating Blood in stool Perimenopausal disorder Major depressive disorder, recurrent, moderate (HCC) Post-operative state Obesity, Class III, BMI >= 40 Mild intermittent asthma without complication Seizures (HCC) NNEKA (obstructive sleep apnea) Left cervical radiculopathy Dyspepsia Plantar fasciitis of right foot GERD with esophagitis Hypertension, essential Heel spur, right Intractable right heel pain Chronic pain syndrome Depressive disorder PTSD (post-traumatic stress disorder) Trigeminal neuralgia of right side of face Restless legs Mood swings Urinary, incontinence, stress female DVT (deep venous thrombosis) (HCC) Wolf's deformity, right RLS (restless legs syndrome) Vertigo Suicidal attempted Acute bronchitis Obesity Resolved Hospital Problems No resolved problems to display. DISPOSITION: Return 1 year to Post-op follow up/ individual office visit EDUCATION: Encouraged to continue with healthy lifestyle changes and incorporate cardiovascular and resistance training, Discussed weight loss expectations after bariatric and metabolic surgery, Advised PT to avoid NSAIDs, smoking tobacco given increased risk of marginal ulcers, or Discussed importance of protein intake as per the RDN note REFERRALS: N/A LABS: Mayi Powell MD Advanced Laparoscopic & Bariatric Surgery Bariatric & Metabolic [place] [facility] documented in this encounter [facility] 06-30-2022 Instructions Edin Powers, RD - 06/30/2022 9:30 AM EDT Nutrition Action Plan 1. Continue to take all recommended vitamin/minerals: Bariatric Pal Once Daily MVI + 9981-5308 mg calcium citrate (3 soft chews) 2. Protein goal: 74 grams protein/day 3. Fluid goal: 64 ounces per day (no carbonation, caffeine, calories, alcohol) 4. Exercise goal: Continue walking; add in strength training when cleared by surgery with a goal of 150+ minutes per week 5. Practice mindful eating habits-take small portions, eat slowly, chew thoroughly Follow Up on 09/08 at 8 AM documented in this encounter [facility] 06-30-2022 History of Present illness Narrative AMBULATORY PATIENT EDUCATION NOTE- Shared [facility] I have communicated my name and active licensure. The patient s identity and physical location were verified at the time of this visit. Either the patient or their legal telephone sales representative has been informed of the risks and benefits of -- and alternatives to -- treatment through a remote evaluation and consents to proceed with the evaluation remotely. Patient reports weight (as measured by home scale) of 227 pounds. TOPIC: LIFE STYLE CHANGES: Post-op weight loss surgery: Diet and Exercise READINESS TO LEARN COGNITIVE ABILITY: Alert and oriented MOTIVATION TO LEARN: Eager FAMILY SUPPORT: Unable to assess - Family not present INSTRUCTION PROVIDED TO: Patient PATIENT LEARNS BEST BY: Multiple Methods FACTORS AFFECTING LEARNING: None PHYSICAL LIMITATIONS AFFECTING LEARNING: None LEARNING RESPONSE DIAGNOSIS: Inadequate protein-energy intake, related to s/p bariatric surgery, as evidenced by patient report and diet recall, Altered Gastrointestinal Tract Function, related to, S/P bariatric surgery, as evidenced by patient report and past surgical history and Overweight/obesity, related to, food/nutrition - related knowledge deficit, as evidenced by BMI above normative standard for age and gender. Malnutrition Screening Significant unintentional weight loss? No Eating less than 75% of usual intake for more than 2 weeks? Yes, but advancing per diet protocol METHOD OF INSTRUCTION: Individual instruction & Group class instruction PATIENT / FAMILY RESPONSE: Nutrition outcome statement: Expect attention to diet to assist with weight management and minimum 800 calories/2 liters of fluids per day. 1 months post op RYGB ([place]) Net weight loss 25 lbs (252 lbs initial) Pre-surgery weight: 248 pounds 10 % TWL weight loss higher than anticipated 5 lb weight loss since last session (232 lbs) Diet recall indicates consistent meal pattern with regular meals and snacks. Patient tolerates Phase III diet plan with minimal complaints; she cannot tolerates protein shakes, however. Patient confirms to eat slowly and separates fluids from foods as recommended. ~800 calories/day Inadequate, but progressing 74+ gm protein intake/day Meets recommendations 60+ oz fluid intake/day Meets recommendations Consistent with appropriate vitamin/minerals (Bariatric Pal Once Daily MVI and 1000 mg calcium citrate) Inadequate in calcium citrate Labs low iron and transferrin Exercise - Walking daily for 30-45 minutes Meets current recommendations Resting Metabolic Rate: 1601 Energy needs for weight loss: 2936-3416 calories per day (10-15 kcal/kg CBW) Protein needs: 74 grams protein per day (1.2 g/kg IBW kg) Reviewed nutrition principles of: 1. Continue to take all recommended vitamin/minerals: Bariatric Pal Once Daily MVI + 1433-9901 mg calcium citrate (3 soft chews) 2. Protein goal: 74 grams protein/day 3. Fluid goal: 64 ounces per day (no carbonation, caffeine, calories, alcohol) 4. Exercise goal: Continue walking; add in strength training when cleared by surgery with a goal of 150+ minutes per week 5. Practice mindful eating habits-take small portions, eat slowly, chew thoroughly Nutrition Monitoring & Evaluation:BMI <40 Criteria: weight check Need for Follow up: 3 months post op Appointment Start Time: 7:54 AM Appointment End Time: 8:47 AM Time Spent on Consult: 53 minutes - Group Edin Powers RD documented in this encounter [facility] 06-29-2022 Miscellaneous Notes Pt informed, verbalized understanding. Alicia Castle Please inform patient that her iron levels are low, other labs are stable. Needs to be taking her bariatric vitamins /Tang Olguin DO documented in this encounter [facility] 06-12-2022 Miscellaneous Notes [facility] SPECIALTY CARE COORDINATION TELEPHONE ENCOUNTER Patient phoned this morning to update team on R incision. She reports same serosanguinous drainage, scant to small amounts on gauze dressing that she changes 2-3 x daily. No odor. No fevers. No redness around area or swelling. Notes pain is improved; taking Tylenol occasionally. She's hydrating better, has started eating soft/pureed foods and tolerating well. She continues to feel unsure of her progress, has concerns about incision healing. Sent updated photo this morning and this RN forwarded to team. MD confirmed current home care is appropriate and no immediate concerns. Instructed patient to continue keeping area clean and dry; may keep [employer] or loosely covered with gauze. Will add patient to surgical fellow's schedule on 06/14 for continued close monitoring and support. This RN will also follow. Patient stated good understanding and agreed with plan. documented in this encounter [facility] 06-09-2022 Miscellaneous Notes [facility] SPECIALTY CARE COORDINATION TELEPHONE ENCOUNTER Sharp pain at L side near her incision that shoots up her side to her shoulder. Happening for about a week, has become more frequent (2-3 times daily) and It takes my breath away . More intense last night and associated with movement. Denies pain w breathing, SOB at rest or any other trouble breathing; denies palpitations. No nausea, vomiting, constipation or diarrhea. Passing lots of gas; bloated. Has not taken any Gas X or other pain med. BM 2 days ago; has been soft and about every 2-3 days since surgery. Reports drainage this afternoon at L incision; serosanguinous white with blood - noticed her shirt was wet this afternoon about a half-dollar sized amount on her clothing. Patient sent photo - will forward to surgical team. No odor noted. Greenish bruise above incision, small scab. She reports improved fluid intake; including decaf tea; gatorade 0; water. Today had soft boiled egg and tolerated. Met with Nutrition today. Patient seemingly close to tears. I'm so scared . Asking, do you think it's infected? , and why am I having this pain ? Provided emotional support and reassurance. Reviewed incision care and encouraged patient to take Gas X, do gentle stretches, continue with oral intake and ambulating. Will notify MD and update patient of any additional recommendations or orders. Patient stated understanding and agreed with plan S/p LRYGB on 05/[address] Powell. 16:30 Phoned patient again while waiting for MD's reply. No new or worsening s/s except patient noted area above scabbed L sided incision is soft and spongy to touch. This RN will ask MD to phone patient this evening. Instructed patient of s/s that would warrant immediate medical attention. She stated understanding and agreed with plan documented in this encounter [facility] 06-09-2022 Miscellaneous Notes [facility] Incoming Patient Nursing Line Call Summary: Situation/Concerns:Today Pus is coming out of one incision. Also for the past 4 days she has had under the left breast. The pain takes her breath away Background/Duration of event: N/A Assessment/Subjective symptoms: as noted above. Recommendation/How message sent to provider/nurse:Celina via Telephone Encounter. NATHAN Kent [facility] SPECIALTY CARE COORDINATION TELEPHONE ENCOUNTER Sharp pain at L side near her incision that shoots up her side to her shoulder. Happening for about a week, has become more frequent (2-3 times daily) and It takes my breath away . More intense last night and associated with movement. Denies pain w breathing, SOB at rest or any other trouble breathing; denies palpitations. No nausea, vomiting, constipation or diarrhea. Passing lots of gas; bloated. Has not taken any Gas X or other pain med. BM 2 days ago; has been soft and about every 2-3 days since surgery. Reports dainage this afternoon at L incision; serosanguinous white with blood - noticed her shirt was wet this afternoon about a half-dollar sized amount on her clothing. Patient sent photo - will forward to surgical team. No odor noted. Greenish bruise above incision, small scab. She reports improved fluid intake; including decaf tea; gatorade 0; water. Today had soft boiled egg and tolerated. Met with Nutrition today. Patient seemingly close to tears. I'm so scared . Asking, do you think it's infected? , and why am I having this pain ? Provided emotional support and reassurance. Reviewed incision care and encouraged patient to take Gas X, do gentle stretches, continue with oral intake and ambulating. Will notify MD and update patient of any additional recommendations or orders. Patient stated understanding and agreed with plan S/p LRYGB on 05/[address] Powell. documented in this encounter [facility] 06-09-2022 History of Present illness Narrative This visit was performed virtually due to the COVID-19 epidemic as an effort to protect patients and minimize exposure. Consent from patient received to conduct visit virtually. This Team Access Model visit is a virtual GROUP encounter. It required patient-provider interaction for the medical decision making as documented below. I have communicated my name and active licensure. The patient s identity and physical location were verified at the time of this visit. Either the patient or their legal telephone sales representative has been informed of the risks and benefits of -- and alternatives to -- treatment through a remote evaluation and consents to proceed with the evaluation remotely. Patient reports weight (as measured by home scale) of 232 pounds. AMBULATORY PATIENT EDUCATION NOTE-Shared Nutrition Group TOPIC: LIFE STYLE CHANGES: Post-op weight loss surgery: Diet and Exercise READINESS TO LEARN COGNITIVE ABILITY: Alert and oriented MOTIVATION TO LEARN: Eager Interested FAMILY SUPPORT: Unable to assess - Family not present INSTRUCTION PROVIDED TO: Patient PATIENT LEARNS BEST BY: Multiple Methods FACTORS AFFECTING LEARNING: None PHYSICAL LIMITATIONS AFFECTING LEARNING: None LEARNING RESPONSE DIAGNOSIS: Inadequate protein-energy intake, related to: decreased PO intake due to complaints of early fullness, as evidenced by verbal recall less than recommended. Malnutrition Screening Significant unintentional weight loss? No Eating less than 75% of usual intake for more than 2 weeks? No Nutritional status: METHOD OF INSTRUCTION: Individual instruction Group class instruction PATIENT / FAMILY RESPONSE: Nutrition outcome statement: Expect attention to diet to assist with weight management and minimum 500 calories/2 liters of fluids per day. Patient participated in a 2 week post-op shared nutrition group. Post-op weight loss surgery (RYGB) (Dr. Powell) . Weight loss: 20 lbs since initial assessment (252 lbs); 8% loss total body weight. Pre surgery weight: 248 lbs. Weight loss tracking higher than expected from surgery. Tolerating phase 2/3 diet without difficulty. Protein needs estimated at 74 grams protein per day (1.2 g/kg IBW kg). Current intake meeting ~ 50% protein needs. Fluid consumption working towards goal- has had IVF x 2 and includes popsicles and gatorade zero- went to ED for IVF Patient is not yet taking recommended vitamin/minerals. Exercise includes walking as able up to 3/day. Labs not available to evaluate. Reviewed nutrition principles of: Begin vitamins this weekend 2. Protein goal: 74 grams protein/day 3. Fluid goal: 64 ounces per day (no carbonation, caffeine, calories, alcohol) - separate foods and fluids by 20 minutes, small sips, no straw 4. Exercise goal: begin low intensity exercise until cleared by surgeon. 5. Practice mindful eating habits-take small portions, eat slowly, and chew thoroughly You have lost 8% total weight loss (average 6-9% at 1 month) Blog: patsy [facility] has 2 virtual support group meetings: This is the [employer] link with meeting number that will be used for all of the SUNDAY virtual support groups this year, on the Sunday of each month 5:30-6:30PM Join from the meeting link [email or web address] Join by meeting number Meeting number (access code): [phone] Meeting password: [email or web address] The schedule with dates, times, topics, and facilitators can be found here: [email or web address] This is the V[employer] link with meeting number that will be used for the Open Discussion ( Food for Thought ) support group on the Sunday of each month 5:30-6:30PM Join from the meeting link [email or web address] Join by meeting number Meeting number (access code): [phone] Meeting password: [email or web address] Hope to see you there! Nutrition Monitoring & Evaluation: Advance diet to phase 3 by next visit Criteria: patient recall Need for Follow up: 1 month post op Appointment Start Time: 9:30 AM Appointment End Time: 10:02 AM Time Spent on Consult: 32 minutes - Group Dottie Ray MS,RD,CSOWM,LD documented in this encounter [facility] 06-07-2022 History of Present illness Narrative Metabolic Surgery Postoperative Virtual Clinic Visit Name: Ning Ann This visit was performed virtually via Zoom technology due to the COVID-19 epidemic as an effort to protect patients and minimize exposure.? Virtual Visit (Audio/Visual) I have discussed the nature of this visit with the patient which will occur via Distance Health (Phone, Virtual Visit) and she agrees to proceed with this interaction . Index Surgery Date of Surgery: 05/26/2022 Surgeon: Mayi Murillo MD Surgical Procedure: LAPAROSCOPIC GASTRIC RESTRICTIVE SURG W/ BYPASS & BERNADINE-EN-Y 150CM OR LESS Pre-surgical weight: 112.5 kg (248 lb) HPI: Ning Ann is a 52 year old female with history of NNEKA, high BMI 45.18 now s/p lap RYGB with Dr. Powell on 05/26 Doing well, pain is controlled. She had dehydration few days , requiring IV hydration. She is feeling better. Tolerating PO intake. Takes around 50 oz of liquids and 1 bottles of proteins. Feels full when she drinks. She also do some scrambled eggs. She has no nausea or vomiting. Urine color light yellow. She has no dysphagia. Had normal bowel movements. Walking and doing daily activities. Denies any fever, SOB, chest pain, calf muscle pain or swelling. Today's Visit: There were no vitals taken for this visit. No weight on file for this encounter. Last Visit: Wt: 105.2 kg (232 lb) BMI: 42.43 kg/(m^2) Total weight loss: 17 lbs PHYSICAL EXAM: General - Normal, healthy, cooperative, in no acute distress, obese Able to interact verbally by video conference Psych - ORIENTATION: normal to time place, person and situation Mood/Affect: AFFECT AND MOOD: Normal Head/Neuro - Normal size and shape Facial appearance normal Pulmonary - respiratory effort normal Cardiovascular - patient describes extremities normal, warm, no cyanosis,no clubbing, and no edema Abdominal - Obese, Visible protrusions or hernias: No Incisions/scars: Healed, Skin - abnormal lesions not visualized Motor - patient seen sitting with Normal appearing strength and coordination Assessment A/P: Normal post-OP course Patient Active Problem List Other and unspecified hyperlipidemia Anxiety state Moderate single current episode of major depressive disorder (HCC) Colon polyps Fibromyalgia GERD (gastroesophageal reflux disease) IBS (irritable bowel syndrome) S/P gastric bypass Way's esophagus with dysplasia Hiatal hernia CRP elevated Multiple joint pain Pancreatic insufficiency Subacute cough Fatigue Dysuria Muscle spasm of back Nausea Bloating Blood in stool Perimenopausal disorder Major depressive disorder, recurrent, moderate (HCC) Post-operative state Obesity, Class III, BMI >= 40 Mild intermittent asthma without complication Seizures ([facility]) NNEKA (obstructive sleep apnea) Left cervical radiculopathy Dyspepsia Plantar fasciitis of right foot GERD with esophagitis Hypertension, essential Heel spur, right Intractable right heel pain Chronic pain syndrome Depressive disorder PTSD (post-traumatic stress disorder) Trigeminal neuralgia of right side of face Restless legs Mood swings Urinary, incontinence, stress female DVT (deep venous thrombosis) (HCC) Wolf's deformity, right RLS (restless legs syndrome) Vertigo Suicidal attempted Acute bronchitis Obesity Resolved Hospital Problems No resolved problems to display. DISPOSITION: Return 1 month to Post-op follow up/ individual office visit EDUCATION: Encouraged to continue with healthy lifestyle changes and incorporate cardiovascular and resistance training, Discussed weight loss expectations after bariatric and metabolic surgery, Advised PT to avoid NSAIDs, smoking tobacco given increased risk of marginal ulcers, or Discussed importance of protein intake as per the RDN note Activity: OK to start exercise program in next 1-2 weeks. Return to work: 3 weeks Diet: Advance diet per Handbook Counseling: Vitamins, Symptoms of stricture and Ulcer REFERRALS: N/A LABS: Leonel Fisher MD Advanced Laparoscopic & Bariatric Surgery Fellow [facility] [facility] documented in this encounter [facility] 06-05-2022 Miscellaneous Notes Addended by: TULIO KNIGHT on: 06/05/2022 07:24 PM Modules accepted: Orders [facility] SPECIAL[facility]ARE COORDINATION TELEPHONE ENCOUNTER Phoned patient after IV hydration. She reported feeling improved after IV Zofran and 1L NS. Encouraged patient to maintain oral hydration. Discussed mjultiple strategies and reinforced prior instruction for increasing fluids and protein. Patient stated she took cottage cheese over the weekend and had no issues. Instructed patient to stay with Phase II diet for now. Will be 2 weeks post-op this Sunday, has visit with Nutrition also that day. Patient stated good understanding and agreed w plan. Instructed patient to update this RN tomorrow; she agreed and has contact info documented in this encounter [facility] 06-05-2022 Miscellaneous Notes [facility] Incoming Patient Nursing Line Call Summary: Situation/Concerns:Nutrition Questions and Ning feels she is dehydrated. Please call her at [phone] Background/Duration of event: all the time Assessment/Subjective symptoms: as noted above. Recommendation/How message sent to provider/nurse:Celina via Telephone Encounter. NATHAN Kent [facility] SPECIALTY CARE COORDINATION TELEPHONE ENCOUNTER Phoned patient. She reported feeling well over the weekend, but noticed she is no urinating as usual, small amounts and dark in color. Patient says she knows she is dehydrated, I'm afraid to drink so much because it hurts . Says she is nauseated this morning also; has not vomiting. Patient tearful. Provided emotional support. Patient will have lottie's mom take her this morning to [facility] for IV hydration. This RN to follow. Post-op w Surgical Fellow this Sunday, 06/07. Patient aware. documented in this encounter [facility] 05-30-2022 Miscellaneous Notes [facility] SPECIALTY CARE COORDINATION TELEPHONE ENCOUNTER Phoned patient for additional follow and and to provide support. She reported taking about 15 oz so far today, having been awake about 4 hours this morning. Intake includes popsicles, water and 5 oz (15 g) protein shake. Denies nausea/vomiting, headache or lightheadedness. States pain is improved. States reason for not hydrating more, I'm afraid I'll hurt myself and I'm tired . Was able to take 32 oz by end of day yesterday. Has urinated twice this morning, but notes color darker yellow . RN phoned [facility] yesterday and was told no slots available this week. Will call [place] today for possible slot tomorrow. Discussed with patient. She says it will be unlikely she can get a ride to [facility] [place], but might be able to find a local flatbed driver tomorrow for [place]. Reinforced prior instruction regarding importance of hydration and strategies to increase intake. Patient again stated understanding and agreed w plan. Cough slightly improved. Secretions are loose and thin. Denies chest pain, tightness or SOB. She confirms she has been ambulating at home; plans to walk a bit outside this afternoon with her nieces. Encouraged fresh air and reviewed safety precautions. Will phone patient again this afternoon for update. NOTE: order for IV hydration (1000 mL NS over 2 hours) directed by Dr. Powell. Slot available at [facility] for tomorrow. Patient notified. documented in this encounter [facility] 05-29-2022 Miscellaneous Notes BMI SPECIALTY CARE COORDINATION POST-OP TELEPHONE CALL BMI Post Op Telephone Call Pt was called on the first day after discharge. DO YOU HAVE A COPY OF YOUR DISCHARGE INSTRUCTIONS YES Is there anything in your discharge instructions that you do not understand? NO Pain: tolerable, taking Tylenol, and taking Oxycodone occasionally. On a scale of 0-10, 0 being not satisfied and 10 being very satisfied, how satisfied were you with your pain management strategy after surgery? 7 Patient instructed not to take any narcotic pain medications (such as Roxicodone) within three hours before bedtime as it may cause breathing difficulty. If you are having pain at bedtime you may take Tylenol (liquid form or two extra strength tablets). Phase 2 full liquid diet: tolerating diet and pt estimates 30 grams of protein and 48 oz of fluid daily. Discussed strategies to increase hydration and protein; patient stated good understanding and agreed w plan. Incisions: surgical glue intact GI: +flatus : WNL at this time, but patient noted darker urine upon rising this morning.; noted dry mouth. Reinforced importance of hydration, discussed strategies and s/s dehydration; confirmed patient has phone numbers to call w concerns; this RN will call patient again this afternoon and tomorrow to follow up. Medications: Taking as instructioned at discharge Zofran and usual meds as directed; picking up lovenox and pantoprazole today and will begin this afternoon. CPAP USE: N/A Remind patient of post op appt. Reminded patient of how to reach [facility] or their surgeons office. Patient reminded to seek medical attention if they develop chest pain, a sudden onset of shortness of breath or persistent pain in the calf of their legs - BEST TO ALWAYS present to [facility] hospital where you had your surgery Patient verbalized understanding of all advice and instructions given. COVID-19 Symptoms: patient noted cough that was present prior to surgery and continues at this time. Secretions thin and clear. No fevers, no sore throat . Intermittent wheezing that improves w nebulizer. Celina Mendoza RN 16:00 Phoned patient again for update. States, after prior call, she took oxycodone and slept for over 2 hours on the couch. Said, before falling asleep she was able to take in 10 oz protein shake and 10 oz clear liquids. Instructed patient to focus on clear liquids for the rest of the day, to stay awake and hydrate. Patient stated good understanding and agreed. She denied any pain or nausea at this time. Will call again tomorrow morning to follow. documented in this encounter [facility] 05-25-2022 Miscellaneous Notes [facility] SPECIALTY CARE COORDINATION SURGERY PRE-OP EDUCATION NOTE AMBULATORY PATIENT EDUCATION NOTE TOPIC: SURVIVAL SKILLS: Diet Pain Management Wound Care LIFE STYLE CHANGES: Diet, Exercise, and Safety Precautions HEALTH PROMOTION: Diet Exercise Follow up management VTE Prevention Measure Mechanical READINESS TO LEARN COGNITIVE ABILITY: Alert and oriented MOTIVATION TO LEARN: Eager Interested FAMILY SUPPORT: Unable to assess - Family not present INSTRUCTION PROVIDED TO: Patient PATIENT LEARNS BEST BY: Individual Instruction Written Instruction - Hand-outs Verbal Instruction Multiple Methods FACTORS AFFECTING LEARNING: None PHYSICAL LIMITATIONS AFFECTING LEARNING: None LEARNING RESPONSE DIAGNOSIS: Morbid Obesity METHOD OF INSTRUCTION: Teach Back pre and post-op diet/importance of hydration PATIENT / FAMILY RESPONSE: Information received as demonstrated by interest and questions FOLLOW-UP PLAN: Reinforce - Repeat previous content SUPPLEMENTAL MATERIAL: Bariatric Surgery Post Operative Care REFERRAL (RECOMMENDATION): None Surgery Pre-Op Education Note in Nurse Visit Education video modules viewed by the patient: Yes Postop prescriptions provided to the patient: Yes Postop Surgeon Visit scheduled: Yes On-Call & Clinic Phone Number given to the Patient: Yes Pre surgery checklist reviewed: Yes Patient Instructions for the Liquid Diet: Day Before Surgery - Liquid Diet Instruction Review 1. Last Protein shake should be before 6 pm. 2. It is important that you stay hydrated - 64 ounces of fluid per day. 3. Drink a 28-32 ounce bottle of a regular (not sugar free) sport drink (Gatorade, Powerade, etc.) the night prior to surgery. If the sport drinks aren t tolerable, may substitute with no sugar added - no pulp juice - apple, cranberry, lemonade, white grape or orange. Day of Surgery Clear Liquid Diet Drink 12-20 ounces of a regular sport drink (or juice as above) stop liquids 2 hours before scheduled arrival time. Other Instructions Reviewed: Skin Preparation: Skin cleanse with antibacterial soap, Teodora, wound care, vitamin & nutrients, activity restrictions post op, discharge instructions & surgical guide, incentive spirometry;diet progression-mria phase I & II & 2wk liquid diet prior to surgery, activity level & pt responsibility during hospitalization. Sleep Apnea: Patient has sleep apnea? No. Do not take pain medication three hours before bedtime as it may cause breathing difficulty. If you are having pain at bedtime you may take two Extra Strength Tylenol. Celina Mendoza RN documented in this encounter [facility] 2022 History of Present illness Narrative BARIATRIC SURGERY PREOPERATIVE VISIT NOTE SERVICE DATE: 2022 SERVICE TIME: 3:25 pm This visit was performed virtually using Zoom technology due to the COVID-19 epidemic as an effort to protect patients and minimize exposure.? Patient gave me the verbal consent for the telehealth visit. Ms. Ann is a 52 year old female referred to me for preoperative evaluation. Name: Ning Ann Medical Record: [id number] Encounter No.: [id number] Ning Ann is a 52 year old female seen in Bariatric Surgery clinic today for their final preoperative assessment. WEIGHT Current Wt/BMI: 248 Ib, 45 kg/m2 Planned Procedure: Laparoscopic Bernadine en-Y Gastric Bypass PAST MEDICAL HISTORY: PAST MEDICAL HISTORY Diagnosis Date Abdominal pain 02/15/2016 Abdominal pain, epigastric Anxiety state, unspecified Aortic aneurysm (HCC) ascending thoracic Asthma Calcaneal spur 05/24/2011 Carpal tunnel syndrome, right 05/2013 moderate Colon polyps Depressive disorder, not elsewhere classified Diaphragmatic hernia without mention of obstruction or gangrene DVT (deep venous thrombosis) (HCC) post foot surgery, x 2 interval Endometriosis ? HX not confirmed Fibromyalgia muscle pain GERD (gastroesophageal reflux disease) Hayfever 10/04/2010 HSV (herpes simplex virus) infection Hypercholesteremia Hypertension 01/2017 Impaired fasting glucose 08/2013 5.7% A1C Mild intermittent asthma without complication 10/27/2019 NNEKA (obstructive sleep apnea) 10/27/2019 Patellofemoral disorder 03/09/2009 PONV (postoperative nausea and vomiting) 03/17/2015 PTSD (post-traumatic stress disorder) per counseling center rheumatoid arthritis Right carpal tunnel syndrome 06/30/2013 Right hand paresthesia 04/28/2013 Seizures (HCC) Snoring Temporomandibular joint disorders, unspecified Toenail deformity 04/28/2013 Trigger middle finger of right hand 12/15/2014 Trigger ring finger of right hand 12/15/2014 Vitamin D deficiency 03/2013 PAST SURGICAL HISTORY: PAST SURGICAL HISTORY Procedure Laterality Date CARPAL TUNNEL 07/2013 right, Dr. Draper DELIVERY ONLY 1990 , low cervical COLONOSCOPY 08/11/2014 normal, repeat in 5 years COLONOSCOPY FLX DX W/COLLJ SPEC WHEN PFRMD 06/24/2004 Colonoscopy/Dr. Cash COLONOSCOPY FLX DX W/COLLJ SPEC WHEN PFRMD 11/23/2017 Colonoscopy COLONOSCOPY W/BIOPSY SINGLE/MULTIPLE 05/04/2010 EGD EGD 08/11/2014 mild chronic gastritis EGD TRANSORAL BIOPSY SINGLE/MULTIPLE 05/04/2010 ESOPHAGOGASTRODUODENOSCOPY TRANSORAL DIAGNOSTIC 11/23/2017 EGD ESOPHAGOGASTRODUODENOSCOPY TRANSORAL DIAGNOSTIC 05/01/2019 EGD INCISE FINGER TENDON SHEATH Right 03/23/2015 Right middle trigger finger release LAPAROSCOPIC TUBAL LIGATION/RING/CLIP 2012 alessandro elliott vesicouterine adhesions LAPAROSCOPY DIAGNOSTIC 2016 extensive KEVYN, severe LAPS SURG CHOLECYSTECTOMY W/CHOLANGIOGRAPHY 05/02/2006 LAPS W/VAG HYSTERECT 250 GM/&RMVL TUBE&/OVARIES 2013 [facility] bilateral salpingectomy, scar tissue LIDOCAINE IV treatments-Mohit Duran PAST SURGICAL HISTORY OF 01/13/2006 Bilateral Breast Reduction PAST SURGICAL HISTORY OF 06/14/2011 left foot for plantar fasciitis REVISE MEDIAN N/CARPAL TUNNEL SURG Left 03/22/2022 Left carpal tunnel release and injection left shoulder S CATH ABLATION THERMACHOICE 2012 uterine ablation SOCIAL HISTORY: Social History Tobacco Use Smoking status: Never Smokeless tobacco: Never Vaping Use Vaping Use: Never used Substance Use Topics Alcohol use: Not Currently Drug use: No ALLERGIES: ALLERGIES Allergen Reactions Miconazole Itching Milnacipran Mental Status Change, Other: See Comments [place] weird. Rivaroxaban Other: See Comments, GI Upset Taste of blood in mouth and muscle aches Warfarin Other: See Comments Morphine Shortness of Breath Atorvastatin Other: See Comments Leg aching and pain Coumadin [Warfarin * Other: See Comments headache,arm pain and back pain Dilaudid [Hydromorp* Other: See Comments Pain Hydromorphone Other: See Comments Lyrica [Pregabalin] Rash, Cough, Itching Prednisone Itching MEDICATIONS: Prior to Admission Medications: losartan (COZAAR) 50 mg tablet Take 50 mg by mouth once daily. vlzlke-enxksdld-ricrjll (CREON) 36,000-114,000- 180,000 unit delayed release capsule Take 3 capsules by mouth three times daily with meals. valACYclovir (VALTREX) 500 mg tablet Take 1 tablet by mouth twice daily. Magnesium Oxide 500 mg tab Take 1 tablet by mouth once daily. meloxicam (MOBIC) 15 mg tablet Take 1 tablet by mouth once daily. Take with food. rOPINIRole (REQUIP) 4 mg tablet Take 1 tablet by mouth daily at bedtime. Miscellaneous Medical Supply (BLOOD PRESSURE CUFF) 1 Each once daily. venlafaxine ER (EFFEXOR XR) 37.5 mg 24 hr capsule Take 1 capsule by mouth once daily. cyclobenzaprine (FLEXERIL) 10 mg tablet Take 1 tablet by mouth three times daily as needed for muscle spasm. triamcinolone acetonide (NASACORT) 55 mcg nasal inhaler Use 2 Sprays in the nose once daily. fluticasone (FLOVENT HFA) 110 mcg/actuation inhaler Inhale 1 Puff as instructed twice daily. Rinse mouth after using. cetirizine (ZYRTEC) 10 mg tablet Take 1 tablet by mouth once daily. cholecalciferol (VITAMIN D3) 50 mcg (2,000 unit) tablet Take 1 tablet by mouth once daily. cyanocobalamin (VITAMIN B-12) 1,000 mcg tab Take 1 tablet by mouth once daily. ipratropium-albuterol (DUONEB) 0.5 mg-3 mg(2.5 mg base)/3 mL nebu Inhale 3 mL as instructed every 4 hours as needed for wheezing/shortness of breath. diclofenac (VOLTAREN) 1 % topical gel Apply 2 g to affected area four times daily. uses on foot and left arm Nebulizers 1 Each as directed. Dx: wheezing, recurrent acute bronchitis, Nebulizer Accessories misc 1 Each as directed. Dx: wheezing, recurrent acute bronchitis, Tubing and mask for nebulizer VISIT NOTE This patient was seen in virtual clinic today to discuss the details of their upcoming operation including the appropriate expectations for perioperative and postoperative care. I have also reviewed with this patient needed nutritional changes, post-operative recovery and the potential for excess skin following surgery and subsequent weight loss She has class III obesity, BMI 43, h/o lap ivette, CS, lap tubal ligation. 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 She has history of DVT twice, was in coumadin and then on Xarelto. No longer on AC. We will need to extend DVT chemoprophylaxis at [facility] For surgery this Sunday. SIGNATURE: Mayi Murillo MD PATIENT NAME: Ning Ann DATE: 2022 TIME: 3:41 PM PAGER/CONTACT #: documented in this encounter [facility] 2022 Instructions Elis Andres APRN.EVALUATION MANAGER - 2022 10:57 AM EDT PATIENT PREOPERATIVE INSTRUCTIONS No ref. provider found has scheduled you for your procedure at this surgery center: [facility] [place] Scheduling Office: [phone] --[address] [place] [address]. Please read below carefully for your personalized instructions. Dietary Restrictions: - No solid food after midnight. - You may have 12 ounces of clear liquids (water, clear juices such as apple juice or gatorade, carbonated beverages, clear tea, black coffee, jello) until 2 hours before scheduled arrival at facility. No red/purple coloring and no creamer/sugar Medications: Unless instructed differently below, stay on all of your medications until your surgery. Approved medications to take the morning of surgery with a sip of water: omeprazole (PRILOSEC), rOPINIRole (REQUIP), venlafaxine (EFFEXOR), flovent, duoneb, zyrtec If you start any new medications after today's visit, please contact the surgeon's office. Blood Thinning Medications: - Stop NSAIDS (Ibuprofen, Advil, Aleve, Motrin, Celebrex, Mobic, etc.) 7 days before surgery, as directed by your surgeon. - Stop Aspirin 7 days before surgery, as directed by your surgeon. - Stop Vitamin E, ALL multi-vitamins, herbals and dietary supplements 7 days before surgery. - You may take Tylenol (Acetaminophen) or any of your pain medications that do not contain aspirin or NSAIDS as needed. Important Reminders: - Candy, mints, gum and tobacco products are NOT permitted the morning of surgery. - Hearing aids, dentures and glasses may be worn the morning of surgery. - NO jewelry, body piercings, makeup, hairpins or contacts are to be worn the day of surgery. If you develop symptoms such as a fever, cold, or flu, or have other changes to your health within TWO DAYS of scheduled surgery or the morning of surgery, please contact the surgery center above. Personal Belongings: -Please have photo ID and insurance cards. -If you do not have a copy of advance directives on file with us, please bring a copy with you on the day of surgery. - Leave ALL valuables and money at home or with family members. For Outpatient Procedures: - YOU MUST HAVE A RESPONSIBLE RAG CUTTING MACHINE OPERATOR TAKE YOU HOME. A UNDERCAR SPECIALIST OR PHARMACY TECHNICIAN TRAINEE CANNOT BE MADE A RESPONSIBLE RAG CUTTING MACHINE OPERATOR. - We recommend that a responsible person stays with you overnight to take care of you. - You cannot stay in a hotel alone after outpatient surgery. You will not be permitted to have your surgery, if you do not have someone to take care of you. Arrival Time for Surgery: - To obtain your arrival time for surgery, call your physician's office the day before your surgery. - If your surgery is scheduled for Sunday, call the Sunday before. Your surgeon s armor officer will tell you what time to call the office. - If you have not reached the departmental armor officer by 5 P.M., call [phone] after 5 P.M. the day before your surgery. Please be aware that emergency situations arise, which may delay or change your surgical time. If this happens, we will notify you as soon as possible and regret any inconvenience. If you already have an Advance Directive, please fax a copy to [phone] or email to for it to be added to your chart. If you do not have an Advance Directive, you can find the appropriate form and more information at [email or web address]. We recommend that you complete the Advance Directive form found on the website and bring it with you the day of your surgery. It can be witnessed and scanned into your chart that day. Elis Andres APRN.SERA documented in this encounter [facility] 2022 History and physical note Images from the original note were not included. HISTORY AND PHYSICAL EXAMINATION SERVICE DATE: 2022 SERVICE TIME: 12:15 PM PRIMARY CARE PHYSICIAN: Tang Olguin DO REASON FOR VISIT: Ning Ann is a 52 year old female who is scheduled for Procedure(s): LAPAROSCOPIC GASTRIC RESTRICTIVE SURG W/ BYPASS & BERNADINE-EN-Y 150CM OR LESS (N/A) at the request of Dr. Mayi Murillo MD for consultation. My final recommendation will be communicated back to the requesting physician by way of shared medical record or letter. Subjective The patient has the following: ACTIVE PROBLEM LIST Anxiety State Moderate Single Current Episode of Major Depressive Disorder (Hcc) Other and Unspecified Hyperlipidemia Obesity Acute Bronchitis Suicidal Attempted Fibromyalgia Ibs (Irritable Bowel Syndrome) Gerd (Gastroesophageal Reflux Disease) Colon Polyps Vertigo Rls (Restless Legs Syndrome) Wolf's Deformity, Right Dvt (Deep Venous Thrombosis) (Hcc) Restless Legs Mood Swings Urinary, Incontinence, Stress Female Trigeminal Neuralgia of Right Side of Face Ptsd (Post-Traumatic Stress Disorder) Chronic Pain Syndrome Depressive Disorder Gerd With Esophagitis Hypertension, Essential Heel Spur, Right Intractable Right Heel Pain Plantar Fasciitis of Right Foot Left Cervical Radiculopathy Dyspepsia Mild Intermittent Asthma Without Complication Seizures (Hcc) Nneka (Obstructive Sleep Apnea) Obesity, Class III, BMI >= 40 Post-Operative State Major Depressive Disorder, Recurrent, Moderate (Hcc) Nausea Bloating Blood in Stool Perimenopausal Disorder Fatigue Dysuria Muscle Spasm of Back Way's Esophagus With Dysplasia Hiatal Hernia Crp Elevated Multiple Joint Pain Pancreatic Insufficiency Subacute Cough COVID-19 Immunization Status Postponed - COVID-19 VACCINE (1) Postponed until 02/17/2023 02/17/2022 Postponed until 02/17/2023 by Alesha Madrigal LPN (Declined at this time) CHIEF COMPLAINT: Pre-op exam HPI: Ning Ann is a 52 year old seen for PAC due to scheduled above surgery because of morbid obesity. 03/08/2022, Dr. Powell Ning Ann is a 51 year old female who presents on March 08, 2022 for surgical evaluation and treatment of obesity. The patient is interested in laparoscopic gastric bypass bernadine-en-y and has decided to have the procedure with Mayi Powell MD. Age at onset - adolescence. Rate of weight gain is described as gradual over years. Family history positive for obesity in the patient's sister. She considers ideal weight to be 140 lb. Maximum weight 240 lb. Previous treatments include self-directed dieting, metal tank erector consultation, supervised diet program, very low calorie diet, and prescription appetite suppressants. Current pre-operative weight is 110.3 kg (243 lb) with BMI of 43.91 kg/m^2. She had endoscopy in 2019 showing gastritis. She takes medication for gastric reflux therefore not an ideal candidate for sleeve gastrectomy. She has a history of bilateral DVT. No NNEKA. DIET INTAKE: Carbohydrate restriction, water intake, high protein intake. EXERCISE ACTIVITY: Patient walks 30 min/day for 3-4 times/ week FUNCTIONAL STATUS: Walk indoors, such as around the house (1.75 METs) Patient's functional class is I based on self-reported physical activity. Significant Anesthesia Considerations: Postop nausea/vomiting REVIEW OF SYSTEMS: General: No weight loss, malaise or fevers. Neurological: +RLS, on rx. No history of TIA's, stroke, DESIGN ENGINEERING TECHNICIAN tumor, impaired sensorium, hemiplegia, paraplegia or quadraplegia. No neurological symptoms or problems. Respiratory: Positive for: asthma (on rx and as neded). Negative for: COPD, pneumonia within 6 weeks, tobacco use, URI < 2 weeks and obstructive sleep apnea. Cardiovascular: Positive for: DVT/PE (LE DVT, provoked, tx with AC), hyperlipidemia and hypertension Negative for: anticoagulation therapy, arrhythmia, atrial fibrillation, CAD, chest pain, CHF, congenital heart defect, recent [place], murmur/valvular heart disease, open heart surgery and valve surgery. GI: See HPI. Positive for: GERD (on rx, hiatal hernia, way's) Negative for: abdominal pain, dysphagia, hepatitis, irritable bowel syndrome, inflammatory bowel disease, liver disease, nausea, pancreatitis, vomiting and ETOH >2 drinks/day. : No history of dysuria, frequency or incontinence, stones or chronic kidney disease. No difficulty urinating, nocturia > 1 time per night or hematuria. ADJUNCT PSYCHOLOGY PROFESSOR: Negative for abnormal vaginal bleeding, abnormal vaginal discharge. Endocrine: +pancreatic insufficiency, on rx. No history of diabetes. Has not taken steroids within the past 30 days. No history of endocrinological symptoms or problems. Hematology: No history of bleeding or clotting disorder. Patient is not taking anti-coagulation or platelet medications. No history of hematological symptoms or problems. Oncology: No history of CA metastasis, chemo within 30 days, or radiotherapy within 90 days. No history of oncological symptoms or problems. Psych: Positive for: anxiety (on rx). Musculoskeletal: +fibromyalgia Skin: Negative for lesions, rash and itching. PAST MEDICAL HISTORY Diagnosis Date Abdominal pain 02/15/2016 Abdominal pain, epigastric Anxiety state, unspecified Aortic aneurysm (HCC) ascending thoracic Asthma Calcaneal spur 05/24/2011 Carpal tunnel syndrome, right 05/2013 moderate Colon polyps Depressive disorder, not elsewhere classified Diaphragmatic hernia without mention of obstruction or gangrene DVT (deep venous thrombosis) (HCC) post foot surgery, x 2 interval Endometriosis ? HX not confirmed Fibromyalgia muscle pain GERD (gastroesophageal reflux disease) Hayfever 10/04/2010 HSV (herpes simplex virus) infection Hypercholesteremia Hypertension 01/2017 Impaired fasting glucose 08/2013 5.7% A1C Mild intermittent asthma without complication 10/27/2019 NNEKA (obstructive sleep apnea) 10/27/2019 Patellofemoral disorder 03/09/2009 PONV (postoperative nausea and vomiting) 03/17/2015 PTSD (post-traumatic stress disorder) per counseling center rheumatoid arthritis Right carpal tunnel syndrome 06/30/2013 Right hand paresthesia 04/28/2013 Seizures (HCC) Snoring Temporomandibular joint disorders, unspecified Toenail deformity 04/28/2013 Trigger middle finger of right hand 12/15/2014 Trigger ring finger of right hand 12/15/2014 Vitamin D deficiency 03/2013 PAST SURGICAL HISTORY Procedure Laterality Date CARPAL TUNNEL 07/2013 right, Dr. Draper DELIVERY ONLY 1990 , low cervical COLONOSCOPY 08/11/2014 normal, repeat in 5 years COLONOSCOPY FLX DX W/COLLJ SPEC WHEN PFRMD 06/24/2004 Colonoscopy/Dr. Cash COLONOSCOPY FLX DX W/COLLJ SPEC WHEN PFRMD 11/23/2017 Colonoscopy COLONOSCOPY W/BIOPSY SINGLE/MULTIPLE 05/04/2010 EGD EGD 08/11/2014 mild chronic gastritis EGD TRANSORAL BIOPSY SINGLE/MULTIPLE 05/04/2010 ESOPHAGOGASTRODUODENOSCOPY TRANSORAL DIAGNOSTIC 11/23/2017 EGD ESOPHAGOGASTRODUODENOSCOPY TRANSORAL DIAGNOSTIC 05/01/2019 EGD INCISE FINGER TENDON SHEATH Right 03/23/2015 Right middle trigger finger release LAPAROSCOPIC TUBAL LIGATION/RING/CLIP 2012 alessandro elliott vesicouterine adhesions LAPAROSCOPY DIAGNOSTIC 2016 extensive KEVYN, severe LAPS SURG CHOLECYSTECTOMY W/CHOLANGIOGRAPHY 05/02/2006 LAPS W/VAG HYSTERECT 250 GM/&RMVL TUBE&/OVARIES 2014 [facility] bilateral salpingectomy, scar tissue LIDOCAINE IV treatments-Mohit Duran PAST SURGICAL HISTORY OF 01/13/2006 Bilateral Breast Reduction PAST SURGICAL HISTORY OF 06/14/2011 left foot for plantar fasciitis REVISE MEDIAN N/CARPAL TUNNEL SURG Left 03/22/2022 Left carpal tunnel release and injection left shoulder S CATH ABLATION THERMACHOICE 2013 uterine ablation FAMILY HISTORY Problem Relation Age of Onset Hypertension Mother Lipids Mother Alcohol/Drug Mother Allergies Mother Alcohol/Drug Father Thyroid Sister other (fibromyalgia) Sister other (brain) Sister surgery brain too big for her skull (plate) Blindness Sister Alcohol/Drug Brother Emphysema Maternal Grandmother Emphysema Maternal Grandfather Heart Paternal Grandmother Anesthesia Problems No Family History Social History Tobacco Use Smoking status: Never Smokeless tobacco: Never Vaping Use Vaping Use: Never used Substance Use Topics Alcohol use: Not Currently Drug use: No Prior to Admission medications as of 05/22/22 1057 Medication Sig Last Dose Taking losartan (COZAAR) 50 mg tablet Take 50 mg by mouth once daily. Yes mobbje-enhjldkc-blpvmel (CREON) 36,000-114,000- 180,000 unit delayed release capsule Take 3 capsules by mouth three times daily with meals. Taking Yes valACYclovir (VALTREX) 500 mg tablet Take 1 tablet by mouth twice daily. Taking Yes Magnesium Oxide 500 mg tab Take 1 tablet by mouth once daily. Taking Yes rOPINIRole (REQUIP) 4 mg tablet Take 1 tablet by mouth daily at bedtime. Taking Yes Miscellaneous Medical Supply (BLOOD PRESSURE CUFF) 1 Each once daily. Taking Yes venlafaxine ER (EFFEXOR XR) 37.5 mg 24 hr capsule Take 1 capsule by mouth once daily. Taking Yes cyclobenzaprine (FLEXERIL) 10 mg tablet Take 1 tablet by mouth three times daily as needed for muscle spasm. Taking Yes triamcinolone acetonide (NASACORT) 55 mcg nasal inhaler Use 2 Sprays in the nose once daily. Taking Yes fluticasone (FLOVENT HFA) 110 mcg/actuation inhaler Inhale 1 Puff as instructed twice daily. Rinse mouth after using. Taking Yes cetirizine (ZYRTEC) 10 mg tablet Take 1 tablet by mouth once daily. Taking Yes cholecalciferol (VITAMIN D3) 50 mcg (2,000 unit) tablet Take 1 tablet by mouth once daily. Taking Yes cyanocobalamin (VITAMIN B-12) 1,000 mcg tab Take 1 tablet by mouth once daily. Taking Yes ipratropium-albuterol (DUONEB) 0.5 mg-3 mg(2.5 mg base)/3 mL nebu Inhale 3 mL as instructed every 4 hours as needed for wheezing/shortness of breath. Taking Yes diclofenac (VOLTAREN) 1 % topical gel Apply 2 g to affected area four times daily. uses on foot and left arm Taking Yes Nebulizers 1 Each as directed. Dx: wheezing, recurrent acute bronchitis, Taking Yes Nebulizer Accessories misc 1 Each as directed. Dx: wheezing, recurrent acute bronchitis, Tubing and mask for nebulizer Taking Yes meloxicam (MOBIC) 15 mg tablet Take 1 tablet by mouth once daily. Take with food. Medication Comments documented by Trina Carr RN on 11/12/2019 at 1247. Pt reports not taking Lovenox or Keflex fatoumata longer ALLERGIES Allergen Reactions Miconazole Itching Milnacipran Mental Status Change, Other: See Comments [place] weird. Rivaroxaban Other: See Comments, GI Upset Taste of blood in mouth and muscle aches Warfarin Other: See Comments Morphine Shortness of Breath Atorvastatin Other: See Comments Leg aching and pain Coumadin [Warfarin * Other: See Comments headache,arm pain and back pain Dilaudid [Hydromorp* Other: See Comments Pain Hydromorphone Other: See Comments Lyrica [Pregabalin] Rash, Cough, Itching Prednisone Itching Objective PHYSICAL EXAM: General: alert and oriented (x3), healthy appearance and morbidly obese. Pertinent negatives noted - not distressed. Skin: normal color, no rash or lesions. HEENT: EOM intact and pupils equal round. Pertinent negatives noted - no carotid bruit. Cardiovascular: regular rate and rhythm, normal S1 and S2, no rub, murmurs, or gallop. Respiratory: normal breath sounds, no wheezes or crackles. No chest wall deformity or tenderness. Abdomen: soft. Pertinent negatives noted - not tender. Extremities: no deformity, no edema or tenderness, no joint swelling or clubbing. Neurological: normal cognition and motor skills. Gait normal. No weakness or sensory deficit. PAIN ASSESSMENT: VITALS: BP 120/82 Pulse 81 Temp (Src) 98.2 (Temporal) Resp 16 Ht 5' 2 (1.58m) Wt 248 lb (112.5kg) SpO2 99% LMP 07/11/2012 BMI 45.35 kg/(m^2). Diagnostic tests reviewed for today's visit: Lab Value Units Date High Low HB 13.1 g/dL 2022 15.5 11.5 HCT 39.8 % 2022 46.0 36.0 WBC 8.81 k/uL 2022 11.00 3.70 PLT 259 k/uL 2022 400 150 NA 140 mmol/L 01/04/2022 144 136 K 4.6 mmol/L 01/04/2022 5.1 3.7 GLUC 95 mg/dL 01/04/2022 99 74 BUN 11 mg/dL 01/04/2022 21 7 CREAT 0.76 mg/dL 01/04/2022 0.96 0.58 PTSEC No results within date range. INR No results within date range. APTT No results within date range. ALT 16 U/L 01/04/2022 38 7 AST 10 U/L 01/04/2022 35 13 TBILI <0.2 mg/dL 01/04/2022 1.3 0.2 TSH 3.080 mIU/L 01/04/2022 4.200 0.270 Lab Value Units Date High Low HCGQT No results within date range. UHCG No results within date range. HCG, BODY* No results within date range. Lab Value Units Date High Low ABORHD No results within date range. ABSCREEN No results within date range. Hemoglobin A1C (%) Date Value 12/26/2018 5.7 06/21/2017 5.7 06/29/2015 5.4 03/13/2015 5.9 09/05/2013 5.7 Recent Results (from the past 8760 hour(s)) ECG COMPLETE Collection Time: 02/17/22 10:08 AM Result Value Ventricular Rate 59 Atrial Rate 59 P-R Interval 152 QRS Duration 76 QT Interval 416 QTC Calculation (Bazett) 411 Calculated P [place] 58 Calculated R [place] 24 Calculated T [place] 27 Impression SINUS BRADYCARDIA LOW VOLTAGE QRS, CONSIDER PULMONARY DISEASE, PERICARDIAL EFFUSION, OR NORMAL VARIANT BORDERLINE ECG Confirmed by VERONIKA REID M.D. ([id number]) on 02/21/2022 4:09:56 PM No results found for this or any previous visit (from the past 41143 hour(s)). Assessment Patient has the following medical conditions which may affect stanley-operative course: Way's esophagus with dysplasia Assessment: GERD, controlled on rx, hx hiatal hernia present Depressive disorder Assessment: and anxiety, stable on rx per pt DVT (deep venous thrombosis) Assessment: hx DVT following surgery, no current tX Hypertension, essential Assessment: controlled on rx Last 14 BP Last 14 Encounter BP Readings: Date: BP: 2022 120/82 03/22/2022 107/55 03/08/2022 139/81 02/24/2022 162/82 02/17/2022 136/86 02/09/2022 136/80 02/08/2022 149/87[forarm[ 01/04/2022 124/96 12/27/2021 130/80 12/05/2021 132/78 11/09/2021 130/80 08/23/2021 132/74 07/20/2021 112/78 07/08/2021 110/78 Mild intermittent asthma without complication Assessment: controlled on rx and as needed NNEKA (obstructive sleep apnea) Assessment: pt states was mild results and did not require CPAP Pancreatic insufficiency Assessment: on rx RLS (restless legs syndrome) Assessment: on rx Seizures (HCC) Assessment: several years ago, absence seizure x1, no further problems, no meds [place] Activity Status Index: METS: Climb a flight of stairs or walk up a hill (5.50 METs) DASI Score: 5.5 Patient denies any chest pain or undue shortness of breath with the above physical activity. Clinical Frailty Scale: 3. Well, with treated comorbid disease STOP-Bang Score: Snores loudly Has or is being treated for high blood pressure BMI greater than 35 kg/m^2 Patient over 50 years old Has a large neck Denies feeling tired, fatigued, or sleepy during the daytime Has not been observed to stop breathing or choking/gasping during sleep Non-male patient STOP-Bang Score: 5 [id number] Score: Age: <65 Sex: female CHF history: No Hypertension history: Yes Stroke/TIA/thromboembolism history: No Vascular disease history: No Diabetes history: No [id number] Score: 2 ARISCAT Score: Age: 51-80 Preoperative SpO2: >=96% Preoperative anemia: No Surgical incision: upper abdominal Duration of surgery: >3 hrs Emergency procedure: No ARISCAT Score: ASA Class: 3 ANESTHESIA FINDINGS: Intubation History: No history of difficult intubation Significant Anesthesia Considerations: none Airway History: No history of difficult airway I - PHYSICAL EVALUATION AIRWAY Patient intubated: No. Tracheostomy tube not present Mallampati: III. TM distance: >3 FB. Neck ROM: full ROM without neurological symptoms. Mouth opening: adequate. Short neck: no. Thick neck: yes Ziegler present: no DENTAL Dental findings: teeth intact. II - ANESTHESIA PLAN ASA Score: 3 Anesthetic Plan: other Anesthetic plan additional comments: *PACC/TCI - anesthesia choice. Beta Annamarie Monitoring Plan Post Procedure Analgesic Plan Informed Consent Anesthetic risks, benefits, alternatives, personnel and consent discussed: yes. Patient / Responsible Libertarian agrees to proceed: yes Patient / Surrogate agrees to blood products: Yes Prepared for Surgery: optimally prepared for surgery, pending [see comment]. labs CONSULTS: Patient does not require consults for optimization at this time Planned Anesthetic: other anesthesia choice The Following Tests/Procedures Have Been Initiated: Orders Placed This Encounter losartan (COZAAR) 50 mg tablet Sig: Take 50 mg by mouth once daily. Instructions Given to Patient: Instructions located in the after visit summary. Patient given verbal and written preop instructions and voices comprehension and compliance. SIGNATURE: Elis Andres APRN.CNP PATIENT NAME: Ning Ann DATE: 2022 TIME: 10:56 AM PAGER/CONTACT #: documented in this encounter [facility] 05-18-2022 Miscellaneous Notes [facility] COORDINATION SURGERY APPROVAL CALL Received e-mail confirmation of insurance approval for bariatric surgery.Pre-operative call placed to the patient, this RN spoke with patient and agreed upon a surgery date of May 26 2022. Surgical episode request sent to [facility] surgery scheduling. Patient understands that the surgery type is Gastric Bypass as approved by insurance. Creatinine level 0.76 Patient instructed to start pre-op 800 calorie total protein liquid diet Atkins (5) daily beginning 2 weeks prior to surgery. - Stop all ASA and NSAID products, Blanding 3 fish oil, herbal products such as ginko etc. Stop vitamins EXCEPT B COMPLEX- take this up to the day before surgery - Medication List reviewed. - Patient denies use of estrogen products. Sleep apnea requiring treatment? No. Patient will require FMLA forms to be completed? Yes, Pt instructed to fax FMLA forms to [phone] and allow 7-10 days for completion. - Teodora video assigned. - All questions and concerns addressed and patient verbalized understanding. - Patient case reviewed. All nutrition appointments completed, psychology clearance obtained, surgeon visit and procedure type verified, medical optimization obtained and all testing complete. Does patient have Con ABO? No, patient does not have Con ABO and it has been ordered. Celina Mendoza RN documented in this encounter [facility] 05-03-2022 Miscellaneous Notes Judith--02/17/22 Nov--nothing scheduled Last refill--02/16/21 30 with 11 Last labs--01/04/22 documented in this encounter [facility] 04-07-2022 Miscellaneous Notes Patient was left detailed message on confidential vm Radha Modi Ma Agree with EMERGENCY DEPARTMENT evaluation of her symptoms Tang Olguin DO Triage protocol advised: See provider within 4 hours today. Patient states she would not be able to be evaluated until after 4pm today. No appts available. Pt agreeable to possible [facility] this afternoon and ER for red flag sx's as discussed. Pt requests PCP to advise. Pt asking if this could be side effect of her Requip, which she has been taking for awhile. Please call patient with advise. Thank you. Reason for Disposition [1] Chest pain lasts > 5 minutes AND [2] occurred > 3 days ago (72 hours) AND [3] NO chest pain or cardiac symptoms now Answer Assessment - Initial Assessment Questions Patient calling with complaints of multiple symptoms and asking for PCP advise. Patient states over the last week she has noticed during the nights, that she becomes anxious, sweats, palpitations, breathing gets heavier , mild chest pressure, feels a flutter in her throat area and shoulders and neck feel tense. Denies any radiating pain into jaw, arms or back. States when these sx's occur, she just lies in bed and dozes off and sx's go away. Lies flat on her left or right sides at night. Reports been having headaches in the mornings and they go away on their own. Pt asking PCP if this could be a side effect from her Requip medication that she takes at bedtime daily? States takes medication with food. Currently denies chest pain, chest pressure, SOB, dizziness, fever, sore throat, nausea, vomiting or diarrhea. Currently has occ. mild cough and reports after she ate something this morning the food feels like it is stuck in her throat. No difficulty breathing now, no coughing heard during length of phone call and no distress. Has h/o Way's esophagus, hiatal hernia, and GERD. Reports she sees Dr. Cortez and has appt with his office next month. Reports Dr. Cortez ordered her a medication, she thinks is called sucralfate, and she does not take it as she should-states she forgets to. 1. LOCATION: as above 2. RADIATION: as above 3. ONSET: approx 1 week ago 4. PATTERN : comes and goes-at night mostly 5. DURATION: minutes/hours 6. SEVERITY: mild-moderate 7. CARDIAC RISK FACTORS: see history 8. PULMONARY RISK FACTORS: see history 9. CAUSE: Patient thinks may be a side effect of her Requip 10. OTHER SYMPTOMS: as above Protocols used: Chest Fcka-MYHKH-OM documented in this encounter [facility] 03-29-2022 History of Present illness Narrative Patient did not attend today's appointment. Mesha Villarreal RD documented in this encounter [facility] 03-20-2022 Miscellaneous Notes Patient phones requesting refills as follows: Requested Prescriptions Pending Prescriptions Disp Refills valACYclovir (VALTREX) 500 mg tablet 60 tablet 5 Sig: Take 1 tablet by mouth twice daily. Magnesium Oxide 500 mg tab 90 tablet 3 Sig: Take 1 tablet by mouth once daily. JUDITH-02/17/22 Labs-03/01/22 NOV-none Please review and advise. Brenda Hernandez LPN documented in this encounter [facility] 03-20-2022 Miscellaneous Notes Patient phones requesting refills as follows: Requested Prescriptions Pending Prescriptions Disp Refills yvohjv-xswmddef-gyjpqek (CREON) 36,000-114,000- 180,000 unit delayed release capsule Sig: Take 3 capsules by mouth three times daily with meals. sucralfate (CARAFATE) 1 gram tablet Sig: Take 1 tablet by mouth before meals and at bedtime. JUDITH-02/17/22 Labs-03/01/22 NOV-none med filled 01/04/22 Please review and advise. Brenda Hernandez LPN documented in this encounter [facility] 03-08-2022 History of Present illness Narrative BARIATRIC H&P/PRE-OPERATIVE CONSULT SERVICE DATE: 03/08/2022 SERVICE TIME: 2:40 pm Nikole Ann is a 51 year old female who presents on March 08, 2022 for surgical evaluation and treatment of obesity. The patient is interested in laparoscopic gastric bypass bernadine-en-y and has decided to have the procedure with Mayi Powell MD. Age at onset - adolescence. Rate of weight gain is described as gradual over years. Family history positive for obesity in the patient s sister. She considers ideal weight to be 140 lb. Maximum weight 240 lb. Previous treatments include self-directed dieting, metal tank erector consultation, supervised diet program, very low calorie diet, and prescription appetite suppressants. Current pre-operative weight is 110.3 kg (243 lb) with BMI of 43.91 kg/m^2. She had endoscopy in 2019 showing gastritis. She takes medication for gastric reflux therefore not an ideal candidate for sleeve gastrectomy. She has a history of bilateral DVT. No NNEKA. DIET INTAKE: Carbohydrate restriction, water intake, high protein intake. EXERCISE ACTIVITY: Patient walks 30 min/day for 3-4 times/ week FUNCTIONAL STATUS: Walk indoors, such as around the house (1.75 METs) Patient's functional class is I based on self-reported physical activity. Significant Anesthesia Considerations: Postop nausea/vomiting PAST MEDICAL HISTORY Diagnosis Date Abdominal pain 02/15/2016 Abdominal pain, epigastric Anxiety state, unspecified Aortic aneurysm (HCC) ascending thoracic Asthma Calcaneal spur 05/24/2011 Carpal tunnel syndrome, right 05/2013 moderate Colon polyps Depressive disorder, not elsewhere classified Diaphragmatic hernia without mention of obstruction or gangrene DVT (deep venous thrombosis) (HCC) post foot surgery, x 2 interval Endometriosis ? HX not confirmed Fibromyalgia muscle pain GERD (gastroesophageal reflux disease) Hayfever 10/04/2010 HSV (herpes simplex virus) infection Hypercholesteremia Hypertension 01/2017 Impaired fasting glucose 08/2013 5.7% A1C Mild intermittent asthma without complication 10/27/2019 NNEKA (obstructive sleep apnea) 10/27/2019 Patellofemoral disorder 03/09/2009 PONV (postoperative nausea and vomiting) 03/17/2015 PTSD (post-traumatic stress disorder) per counseling center rheumatoid arthritis Right carpal tunnel syndrome 06/30/2013 Right hand paresthesia 04/28/2013 Seizures (HCC) Snoring Temporomandibular joint disorders, unspecified Toenail deformity 04/28/2013 Trigger middle finger of right hand 12/15/2014 Trigger ring finger of right hand 12/15/2014 Vitamin D deficiency 03/2013 PAST SURGICAL HISTORY Procedure Laterality Date CARPAL TUNNEL 07/2013 right, Dr. Draper DELIVERY ONLY 1990 , low cervical COLONOSCOPY 08/11/14 normal, repeat in 5 years COLONOSCOPY FLX DX W/COLLJ SPEC WHEN PFRMD 06/24/04 Colonoscopy/Dr. Cash COLONOSCOPY FLX DX W/COLLJ SPEC WHEN PFRMD 11/23/2017 Colonoscopy COLONOSCOPY W/BIOPSY SINGLE/MULTIPLE 05/04/10 EGD EGD 08/11/14 mild chronic gastritis EGD TRANSORAL BIOPSY SINGLE/MULTIPLE 05/04/10 ESOPHAGOGASTRODUODENOSCOPY TRANSORAL DIAGNOSTIC 11/23/2017 EGD ESOPHAGOGASTRODUODENOSCOPY TRANSORAL DIAGNOSTIC 05/01/2019 EGD INCISE FINGER TENDON SHEATH Right 03/23/2015 Right middle trigger finger release LAPAROSCOPIC TUBAL LIGATION/RING/CLIP 2012 alessandro elliott vesicouterine adhesions LAPAROSCOPY DIAGNOSTIC 2015 extensive KEVYN, severe LAPS SURG CHOLECYSTECTOMY W/CHOLANGIOGRAPHY 05/02/06 LAPS W/VAG HYSTERECT 250 GM/&RMVL TUBE&/OVARIES 2013 [facility] bilateral salpingectomy, scar tissue LIDOCAINE IV treatments-Mohit Duran PAST SURGICAL HISTORY OF 01/13/06 Bilateral Breast Reduction PAST SURGICAL HISTORY OF 06/14/2011 left foot for plantar fasciitis S CATH ABLATION THERMACHOICE 2012 uterine ablation FAMILY HISTORY Problem Relation Age of Onset Hypertension Mother Lipids Mother Alcohol/Drug Mother Allergies Mother Alcohol/Drug Father Thyroid Sister other (fibromyalgia) Sister other (brain) Sister surgery brain too big for her skull (plate) Blindness Sister Alcohol/Drug Brother Emphysema Maternal Grandmother Emphysema Maternal Grandfather Heart Paternal Grandmother Anesthesia Problems No Family History Social History Tobacco Use Smoking status: Never Smokeless tobacco: Never Vaping Use Vaping Use: Never used Substance Use Topics Alcohol use: Yes Comment: social Drug use: No Current Outpatient Medications Medication Sig meloxicam (MOBIC) 15 mg tablet Take 1 tablet by mouth once daily. Take with food. polyethylene glycol 3350 (MIRALAX) 17 gram/dose powder Take 1 scoop of powder by mouth with 8oz of liquid once daily in the morning rOPINIRole (REQUIP) 4 mg tablet Take 1 tablet by mouth daily at bedtime. odrdqg-hnecgjfm-kwllklj (CREON) 36,000-114,000- 180,000 unit delayed release capsule Take 3 capsules by mouth three times daily with meals. sucralfate (CARAFATE) 1 gram tablet Take 1 tablet by mouth before meals and at bedtime. Miscellaneous Medical Supply (BLOOD PRESSURE CUFF) 1 Each once daily. venlafaxine ER (EFFEXOR XR) 37.5 mg 24 hr capsule Take 1 capsule by mouth once daily. cyclobenzaprine (FLEXERIL) 10 mg tablet Take 1 tablet by mouth three times daily as needed for muscle spasm. triamcinolone acetonide (NASACORT) 55 mcg nasal inhaler Use 2 Sprays in the nose once daily. fluticasone (FLOVENT HFA) 110 mcg/actuation inhaler Inhale 1 Puff as instructed twice daily. Rinse mouth after using. cetirizine (ZYRTEC) 10 mg tablet Take 1 tablet by mouth once daily. cholecalciferol (VITAMIN D3) 50 mcg (2,000 unit) tablet Take 1 tablet by mouth once daily. cyanocobalamin (VITAMIN B-12) 1,000 mcg tab Take 1 tablet by mouth once daily. Magnesium Oxide 500 mg tab Take 1 tablet by mouth once daily. valACYclovir (VALTREX) 500 mg tablet Take 1 tablet by mouth twice daily. omeprazole (PRILOSEC) 40 mg capsule Take 1 capsule by mouth once daily. ipratropium-albuterol (DUONEB) 0.5 mg-3 mg(2.5 mg base)/3 mL nebu Inhale 3 mL as instructed every 4 hours as needed for wheezing/shortness of breath. diclofenac (VOLTAREN) 1 % topical gel Apply 2 g to affected area four times daily. uses on foot and left arm Nebulizers 1 Each as directed. Dx: wheezing, recurrent acute bronchitis, Nebulizer Accessories misc 1 Each as directed. Dx: wheezing, recurrent acute bronchitis, Tubing and mask for nebulizer albuterol HFA (PROVENTIL HFA, VENTOLIN HFA) 90 mcg/actuation inhaler Inhale 2 Puffs as instructed every 4 hours as needed for wheezing/shortness of breath. albuterol (PROVENTIL) 2.5 mg /3 mL (0.083 %) nebulizer solution Use 3 mL via nebulizer every 4 hours as needed for wheezing/shortness of breath. Use over 5-15minutes. No current facility-administered medications for this visit. ALLERGIES Allergen Reactions Miconazole Itching Milnacipran Mental Status Change, Other: See Comments [place] weird. Rivaroxaban Other: See Comments, GI Upset Taste of blood in mouth and muscle aches Warfarin Other: See Comments Morphine Shortness of Breath Atorvastatin Other: See Comments Leg aching and pain Coumadin [Warfarin * Other: See Comments headache,arm pain and back pain Dilaudid [Hydromorp* Other: See Comments Pain Hydromorphone Other: See Comments Lyrica [Pregabalin] Rash, Cough, Itching Prednisone Itching REVIEW OF SYSTEMS: General: No weight loss, malaise or fevers. 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 No neurological symptoms or problems. Respiratory: No history of current cough or dyspnea, or pneumonia in the past 6 weeks. No history of respiratory/pulmonary symptoms or problems. Cardiovascular: No history of HTN requiring medication, no history of angina, CHF, OH, cardiac surgery or stents. Denies rest pain, gangrene or revascularization/amputation for PVD. No history of cardiovascular symptoms or problems. GI: No history of GI symptoms or problems. No history of esophageal varices, recent ascites, or ETOH greater than 2 drinks per day. : No history of UTI in past 6 weeks. No history of renal failure. Not currently on or requiring dialysis. No history of symptoms or problems. 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 Endocrine: No history of diabetes. Has not taken steroids within the past 30 days. No history of endocrinological symptoms or problems. Hematology: No history of bleeding or clotting disorder. No history of hematological symptoms or problems. Oncology: No history of CA metastasis, chemo within 30 days, or radiotherapy within 90 days. No history of oncological symptoms or problems. Psych: No history of psychiatric symptoms or problems. Skin: Negative for lesions, rash, and itching. Objective PHYSICAL EXAM: Patient reported BP 139/81 Pulse 75 Ht 158.5 cm (5' 2.4 ) Wt 110.3 kg (243 lb 3.2 oz) LMP 07/11/2012 BMI 43.91 kg/m General - Normal, healthy, cooperative, in no acute distress, obese Able to interact verbally by video conference Psych - ORIENTATION: normal to time place, person and situation Mood/Affect: AFFECT AND MOOD: Normal Head/Neuro - Normal size and shape Facial appearance normal Pulmonary - respiratory effort normal Cardiovascular - patient describes extremities normal, warm, no cyanosis,no clubbing, and no edema Abdominal - Obese, Visible protrusions or hernias: No Incisions/scars: None, Skin - abnormal lesions not visualized Motor - patient seen sitting with Normal appearing strength and coordination DATA: Diagnostic tests reviewed for today's visit: Most recent labs Most recent imaging Assessment/Plan IMPRESSION: Patient Active Problem List Other and unspecified hyperlipidemia Anxiety state Moderate single current episode of major depressive disorder (HCC) Colon polyps Fibromyalgia GERD (gastroesophageal reflux disease) IBS (irritable bowel syndrome) Way's esophagus with dysplasia Hiatal hernia CRP elevated Multiple joint pain Pancreatic insufficiency Subacute cough Fatigue Dysuria Muscle spasm of back Nausea Bloating Blood in stool Perimenopausal disorder Major depressive disorder, recurrent, moderate (HCC) Post-operative state Obesity, Class III, BMI >= 40 Mild intermittent asthma without complication Seizures (HCC) NNEKA (obstructive sleep apnea) Left cervical radiculopathy Dyspepsia Plantar fasciitis of right foot GERD with esophagitis Hypertension, essential Heel spur, right Intractable right heel pain Chronic pain syndrome Depressive disorder PTSD (post-traumatic stress disorder) Trigeminal neuralgia of right side of face Restless legs Mood swings Urinary, incontinence, stress female DVT (deep venous thrombosis) (HCC) Wolf's deformity, right RLS (restless legs syndrome) Vertigo Suicidal attempted Acute bronchitis Obesity Resolved Hospital Problems No resolved problems to display. PLAN/RECOMMENDATIONS: Ning Ann is a 51 years old lady who is here for her preoperative visit. Patient is a good candidate for metabolic surgery based on NIH criteria and will undergo laparoscopic gastric bypass. She has a history of reflux gastritis and bilateral DVTs. She also has h/o lap cholecystectomy and lap hysterectomy as previous abdominal surgeries. - She is advised to continue through BMI program - Reviewed principles of energy metabolism, caloric intake and expenditure, and rationale for treatment program. Also reinforced need for reduced calorie, low fat diet and increased physical activity. SIGNATURE: Chantale Barrios (Medical Student) PATIENT NAME: Ning Ann DATE: March 08, 2022 TIME: 2:42 PM PAGER/CONTACT #: STAFF ATTESTATION: I have reviewed the note obtained and documented by the medical student and I personally participated in the pitts components. I have discussed the case and management of the patient's care with the medical student. I have examined the patient, reviewed all relevant laboratory findings and imaging studies. The following comments revise or confirm relevant pitts components of the medical student's note. I spent a total of 45 minutes on the date of the service which included preparing to see the patient, [id number] patient care, completing clinical documentation, obtaining and/or reviewing separately obtained history, performing a medically appropriate examination, ordering medications, tests, or procedures, and care coordination (not separately reported). IMPRESSION AND PLAN: Ning Ann is a pleasant 51 yo female patient, she is almost done with our pathway for MBS (Metabolic & Bariatric Surgery). She has class III obesity, BMI 43, h/o lap ivette, CS, lap tubal ligation. 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 Discussed the LRYGB as her best option. She has history of DVT twice, was in coumadin and then on Xarelto. No longer on AC. We will need to extend DVT chemoprophylaxis at [place]. Mayi Powell MD documented in this encounter [facility] 02-28-2022 History of Present illness Narrative This Team Access Model visit is a virtual encounter. It required patient-provider interaction for the medical decision making as documented below. Both audio and visual components utilized for this visit. Consent from patient received to conduct visit using telehealth. This visit was performed virtually due to the COVID-19 pandemic as an effort to protect patients and minimize exposure. CC/HPI: 51 year old lady presents for follow up evaluation in preparation for bariatric surgery. General Health Updates: Patient specifies the following items as new or significant updates in general health since last appointment here: -she is now on 2 new medications: Creon for pancreatic insufficiency, and recently diagnosed Way's d/t acid reflux and on Sucralfate. 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 Cannon Physical activity: has been doing a little bit of walking, but is going to have carpal tunnel surgery in March; suggested looking into mini-sessions of physical activity-she notes that through work she will soon have access to a free rec center OTHER: -01/26/2022 OV BMI/Nutrition -10/08/2020: OV BMI/[place]orty MEDS: See [facility] PMH: Women: Control method: PSHX: PAST MEDICAL HISTORY Diagnosis Date Abdominal pain 02/15/2016 Abdominal pain, epigastric Anxiety state, unspecified Aortic aneurysm (HCC) ascending thoracic Asthma Calcaneal spur 05/24/2011 Carpal tunnel syndrome, right 05/2013 moderate Colon polyps Depressive disorder, not elsewhere classified Diaphragmatic hernia without mention of obstruction or gangrene DVT (deep venous thrombosis) ([facility]) post foot surgery, x 2 interval Endometriosis ? HX not confirmed Fibromyalgia muscle pain GERD (gastroesophageal reflux disease) Hayfever 10/04/2010 HSV (herpes simplex virus) infection Hypercholesteremia Hypertension 01/2017 Impaired fasting glucose 08/2013 5.7% A1C Mild intermittent asthma without complication 10/27/2019 NNEKA (obstructive sleep apnea) 10/27/2019 Patellofemoral disorder 03/09/2009 PONV (postoperative nausea and vomiting) 03/17/2015 PTSD (post-traumatic stress disorder) per counseling center rheumatoid arthritis Right carpal tunnel syndrome 06/30/2013 Right hand paresthesia 04/28/2013 Seizures ([facility]) Snoring Temporomandibular joint disorders, unspecified Toenail deformity 04/28/2013 Trigger middle finger of right hand 12/15/2014 Trigger ring finger of right hand 12/15/2014 Vitamin D deficiency 03/2013 methylPREDNISolone (MEDROL, ESTELLE,) 4 mg Dose-Pack Follow dosing instructions, take with food. doxycycline (VIBRA-TABS) 100 mg tablet Take 1 tablet by mouth twice daily for 7 days. meloxicam (MOBIC) 15 mg tablet Take 1 tablet by mouth once daily. Take with food. polyethylene glycol 3350 (MIRALAX) 17 gram/dose powder Take 1 scoop of powder by mouth with 8oz of liquid once daily in the morning rOPINIRole (REQUIP) 4 mg tablet Take 1 tablet by mouth daily at bedtime. albuterol HFA (PROVENTIL HFA, VENTOLIN HFA) 90 mcg/actuation inhaler Inhale 2 Puffs as instructed every 4 hours as needed for wheezing/shortness of breath. albuterol (PROVENTIL) 2.5 mg /3 mL (0.083 %) nebulizer solution Use 3 mL via nebulizer every 4 hours as needed for wheezing/shortness of breath. Use over 5-15minutes. tnkazs-jjuptkyg-wdpkwvf (CREON) 36,000-114,000- 180,000 unit delayed release capsule Take 3 capsules by mouth three times daily with meals. sucralfate (CARAFATE) 1 gram tablet Take 1 tablet by mouth before meals and at bedtime. Miscellaneous Medical Supply (BLOOD PRESSURE CUFF) 1 Each once daily. venlafaxine ER (EFFEXOR XR) 37.5 mg 24 hr capsule Take 1 capsule by mouth once daily. cyclobenzaprine (FLEXERIL) 10 mg tablet Take 1 tablet by mouth three times daily as needed for muscle spasm. triamcinolone acetonide (NASACORT) 55 mcg nasal inhaler Use 2 Sprays in the nose once daily. fluticasone (FLOVENT HFA) 110 mcg/actuation inhaler Inhale 1 Puff as instructed twice daily. Rinse mouth after using. cetirizine (ZYRTEC) 10 mg tablet Take 1 tablet by mouth once daily. cholecalciferol (VITAMIN D3) 50 mcg (2,000 unit) tablet Take 1 tablet by mouth once daily. cyanocobalamin (VITAMIN B-12) 1,000 mcg tab Take 1 tablet by mouth once daily. Magnesium Oxide 500 mg tab Take 1 tablet by mouth once daily. valACYclovir (VALTREX) 500 mg tablet Take 1 tablet by mouth twice daily. omeprazole (PRILOSEC) 40 mg capsule Take 1 capsule by mouth once daily. ipratropium-albuterol (DUONEB) 0.5 mg-3 mg(2.5 mg base)/3 mL nebu Inhale 3 mL as instructed every 4 hours as needed for wheezing/shortness of breath. lactobacillus rhamnosus (CULTURELLE) 15 billion cell capsule Take 1 capsule by mouth once daily. diclofenac (VOLTAREN) 1 % topical gel Apply 2 g to affected area four times daily. uses on foot and left arm dicyclomine (BENTYL) 10 mg capsule Take 1 capsule by mouth four times daily as needed. Nebulizers 1 Each as directed. Dx: wheezing, recurrent acute bronchitis, Nebulizer Accessories misc 1 Each as directed. Dx: wheezing, recurrent acute bronchitis, Tubing and mask for nebulizer ALLERGIES Allergen Reactions Miconazole Itching Milnacipran Mental Status Change, Other: See Comments [place] weird. Rivaroxaban Other: See Comments, GI Upset Taste of blood in mouth and muscle aches Warfarin Other: See Comments Morphine Shortness of Breath Atorvastatin Other: See Comments Leg aching and pain Coumadin [Warfarin * Other: See Comments headache,arm pain and back pain Dilaudid [Hydromorp* Other: See Comments Pain Hydromorphone Other: See Comments Lyrica [Pregabalin] Rash, Cough, Itching Prednisone Itching PHYSICAL EXAMINATION: Wt 111.1 kg (245 lb) LMP 07/11/2012 BMI 44.81 kg/m General: alert and appropriate, in no distress, well-hydrated, well nourished, happy, smiling, interactive, and pleasant lady Skin: no rash noted Head: normocephalic, no abnormality or lesion noted Eyes: no injection and visual acuity is grossly normal Respiratory: breathing non-labored REVIEW OF SYSTEMS Non-remarkable except for what is noted in HPI and/or Assessment/plan ASSESSMENT: Reviewed principles of energy metabolism, caloric intake and expenditure, and rationale for treatment program. Also reinforced need for reduced calorie, low fat diet and increased physical Activity. 1)Morbid obesity Weight and BMI today (02/28/2022) = 245 lbs Weight and BMI previous visit dated: 10/08/2020= 252 lb -this does count as visit # 5 of 6 supervised nutrition visits as required by the patient's insurance. Discussed importance of physical activity, avoiding sugary/carbonated/caffeinated beverages and to consider replacing 1 or 2 meals per day with healthy protein shake (see Nutrition guide for suggestions). Presurgical testing: -had a CXR 12/01; prior h/o GB surgery; had an EKG 02/2022-needs to have a presurgical visit with a surgeon-have messaged her navigator and scheduling team regarding this. May need updated labs. 2)h/o DVT previous-she will inform surgical team 3)sleep disordered: denies snoring; her partner says she doesn't stop breathing; denies excessive sleepiness x tired d/t her iron level; has trigeminal nerve damage; had a sleep study done before and this bothered her-her last PSG was mild, told by sleep med she didn't require a mask Radha Langston MD I spent a total of 30 minutes on the date of the service which included preparing to see the patient, [id number] patient care, obtaining and/or reviewing separately obtained history, counseling and educating the patient/family/caregiver, ordering medications, tests, or procedures, and care coordination (not separately reported). documented in this encounter [facility] 02-27-2022 Miscellaneous Notes Surgery has been scheduled as requested. Surgical request completed for left CTR and left shoulder injection at [facility] on 03/22/2022. Post op appointments have been scheduled and mailed to patient. documented in this encounter [facility] 02-23-2022 History of Present illness Narrative Charlie Draper MD Department of Orthopaedics Orthopaedics [address] [facility] [address] Dept: [phone] Dept February 23, 2022 CHIEF COMPLAINT: Established Patient of the Left Wrist and Left CTR - Wants to discuss surgery (Last seen 07/15/20 Left elbow pain) HPI Patient states on 02/17/22 she had swelling and pain in her left hand. Saw Dr Olguin and had an x-ray of her cervical spine and then sent to the ED for an US. She was negative for a DVT in her arm. She is having some numbness in her 3-5 fingers. It it worse with driving. She has been loosing rug measurer strength and dropping things. 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 Patient is right hand dominant. Taking Meloxicam for the pain and is no help. She did have an EMG done on 05/23/13 on her right hand and had CTR done on 08/01/13. Pt is not , nor is she 3 months post-. Intake information documented in the prior visit with Dr. Olguin on 02/17/22. [facility] ROOMING INTAKE FLOWSHEET DATA Pain Pain Level: 5 Pain Location: Hand-Left Description: Sharp, Aching, Numbness, Tingling Duration Amount of Time: 1 Duration Units: Weeks Frequency: Continuous Intervention/Comfort measure: Medication ASSESSMENT: G56.02 Carpal tunnel syndrome of left wrist (primary encounter diagnosis) M75.40 Shoulder impingement M25.512, G89.29 Chronic left shoulder pain PLAN: She did very well many years ago with carpal tunnel release on the right side. She is having similar and worsening symptoms on the left. We reviewed the risks, benefits, alternatives and potential complications again with the procedure and she would like to proceed with surgery. SHe's been having impingement/rotator cuff symptoms and is interested in a cortisone injection, however is a bit needle phobic. She would like a subacromial injection while under anesthesia for the carpal tunnel. This seems like a reasonable request. Ms. Ning Ann was advised as to contrast therapies and/or to take analgesics/anti-inflammatories as needed and all contraindications were reviewed. OBJECTIVE: Ms. Ning Ann is a pleasant 51 year old in no apparent distress. Gen:LMP 07/11/2012 nl development, obese, no deformities ENT: Normocephalic, normal hearing, moist mucosa CV: Pulses:Radial= 2+ and symmetric, capillary refill < 2 secs, no peripheral edema/varicosities Skin: no rash, bruising or lesions. Good turgor. Psych: cooperative and appropriate, alert and oriented x 3, good mood and affect. Musculoskeletal: Cervical spine has some limitations with range of motion and no tenderness to palpation, Spurling's sign negative. Shoulders and elbows have pain free range of motion with still some diminished on the left elbow. She has positive neer and hawkin's exam. 4+/5 supraspinatus testing. Neg. Tinel's over the cubital tunnel, no subluxation of ulnar nerve at the elbow with flexion. Neg Tinel's over Guyon's canal. Inspection reveals no thenar atrophy. diminished sensation to light touch in the radial 3 digits. Sensation intact in the ulnar 2 digits with no intrinsic atrophy/weakness. positive Tinel's at the wrist, positive carpal tunnel compression testing on the left. No locking or catching of the digits. No tenderness to palpation or masses noted in the forearm or hand. Imaging: Deferred today Supporting Subjective Information Below: Past Surgical History: PAST SURGICAL HISTORY Procedure Laterality Date CARPAL TUNNEL 07/2013 right, Dr. Draper DELIVERY ONLY 1990 , low cervical COLONOSCOPY 08/11/14 normal, repeat in 5 years COLONOSCOPY FLX DX W/COLLJ SPEC WHEN PFRMD 06/24/04 Colonoscopy/Dr. Cash COLONOSCOPY FLX DX W/COLLJ SPEC WHEN PFRMD 11/23/2017 Colonoscopy COLONOSCOPY W/BIOPSY SINGLE/MULTIPLE 05/04/10 EGD EGD 08/11/14 mild chronic gastritis EGD TRANSORAL BIOPSY SINGLE/MULTIPLE 05/04/10 ESOPHAGOGASTRODUODENOSCOPY TRANSORAL DIAGNOSTIC 11/23/2017 EGD ESOPHAGOGASTRODUODENOSCOPY TRANSORAL DIAGNOSTIC 05/01/2019 EGD INCISE FINGER TENDON SHEATH Right 03/23/2015 Right middle trigger finger release LAPAROSCOPIC TUBAL LIGATION/RING/CLIP 2012 alessandro elliott vesicouterine adhesions LAPAROSCOPY DIAGNOSTIC 2015 extensive KEVYN, severe LAPS SURG CHOLECYSTECTOMY W/CHOLANGIOGRAPHY 05/02/06 LAPS W/VAG HYSTERECT 250 GM/&RMVL TUBE&/OVARIES 2013 [facility] bilateral salpingectomy, scar tissue LIDOCAINE IV treatments-Mohit Duran PAST SURGICAL HISTORY OF 01/13/06 Bilateral Breast Reduction PAST SURGICAL HISTORY OF 06/14/2011 left foot for plantar fasciitis S CATH ABLATION THERMACHOICE 2012 uterine ablation Medications: Current Outpatient Medications Medication Sig methylPREDNISolone (MEDROL, ESTELLE,) 4 mg Dose-Pack Follow dosing instructions, take with food. doxycycline (VIBRA-TABS) 100 mg tablet Take 1 tablet by mouth twice daily for 7 days. meloxicam (MOBIC) 15 mg tablet Take 1 tablet by mouth once daily. Take with food. polyethylene glycol 3350 (MIRALAX) 17 gram/dose powder Take 1 scoop of powder by mouth with 8oz of liquid once daily in the morning rOPINIRole (REQUIP) 4 mg tablet Take 1 tablet by mouth daily at bedtime. albuterol HFA (PROVENTIL HFA, VENTOLIN HFA) 90 mcg/actuation inhaler Inhale 2 Puffs as instructed every 4 hours as needed for wheezing/shortness of breath. albuterol (PROVENTIL) 2.5 mg /3 mL (0.083 %) nebulizer solution Use 3 mL via nebulizer every 4 hours as needed for wheezing/shortness of breath. Use over 5-15minutes. ctyuej-ximiltjd-uhcepsm (CREON) 36,000-114,000- 180,000 unit delayed release capsule Take 3 capsules by mouth three times daily with meals. sucralfate (CARAFATE) 1 gram tablet Take 1 tablet by mouth before meals and at bedtime. Miscellaneous Medical Supply (BLOOD PRESSURE CUFF) 1 Each once daily. venlafaxine ER (EFFEXOR XR) 37.5 mg 24 hr capsule Take 1 capsule by mouth once daily. cyclobenzaprine (FLEXERIL) 10 mg tablet Take 1 tablet by mouth three times daily as needed for muscle spasm. triamcinolone acetonide (NASACORT) 55 mcg nasal inhaler Use 2 Sprays in the nose once daily. fluticasone (FLOVENT HFA) 110 mcg/actuation inhaler Inhale 1 Puff as instructed twice daily. Rinse mouth after using. cetirizine (ZYRTEC) 10 mg tablet Take 1 tablet by mouth once daily. cholecalciferol (VITAMIN D3) 50 mcg (2,000 unit) tablet Take 1 tablet by mouth once daily. cyanocobalamin (VITAMIN B-12) 1,000 mcg tab Take 1 tablet by mouth once daily. Magnesium Oxide 500 mg tab Take 1 tablet by mouth once daily. valACYclovir (VALTREX) 500 mg tablet Take 1 tablet by mouth twice daily. omeprazole (PRILOSEC) 40 mg capsule Take 1 capsule by mouth once daily. ipratropium-albuterol (DUONEB) 0.5 mg-3 mg(2.5 mg base)/3 mL nebu Inhale 3 mL as instructed every 4 hours as needed for wheezing/shortness of breath. lactobacillus rhamnosus (CULTURELLE) 15 billion cell capsule Take 1 capsule by mouth once daily. diclofenac (VOLTAREN) 1 % topical gel Apply 2 g to affected area four times daily. uses on foot and left arm dicyclomine (BENTYL) 10 mg capsule Take 1 capsule by mouth four times daily as needed. Nebulizer Accessories misc 1 Each as directed. Dx: wheezing, recurrent acute bronchitis, Tubing and mask for nebulizer Nebulizers 1 Each as directed. Dx: wheezing, recurrent acute bronchitis, No current facility-administered medications for this visit. Allergies: Miconazole, Milnacipran, Rivaroxaban, Warfarin, Morphine, Atorvastatin, Coumadin [Warfarin Sodium], Dilaudid [Hydromorphone (Bulk)], Hydromorphone, Lyrica [Pregabalin], and Prednisone ROS: General (negative for fatigue, malaise, weight loss/gain) HEENT (negative for headache, earache, recent vision changes, sinus pain, sore throat) Respiratory (no recent shortness of breath, hemoptysis) CV (negative for chest tightness, palpitations) Musculoskeletal (see HPI) Psych (no depression, anxiety) Charlie Draper MD documented in this encounter [facility] 02-17-2022 History of Present illness Narrative Radiology Service Progress Note PATIENT NAME: Ning Ann DATE OF SERVICE: February 17, 2022 TIME: 10:30 AM PATIENT IDENTITY VERIFICATION COMPLETED USING TWO (2) IDENTIFIERS: Name and Date of confirmed by patient verbally. FALL SCREENING: Has the patient had 2 falls in the last year or 1 fall with injury or currently using an Ambulatory Assistive Device (Walker, Cane, Wheelchair, Crutches, etc.)? No PATIENT GENDER DATA: Female. status: : No status: NO. PATIENT RELEVANT IMPLANT DATA REVIEWED: Not Applicable RADIOLOGY DEPARTMENT: General X-ray: Exam(s) Completed: Spine X-Ray(s): Cervical AP / LAT / OBL PERIPHERAL IV DATA: Not applicable SIGNED BY: RT Will(R) February 17, 2022 10:30 AM documented in this encounter [facility] 02-17-2022 History of Present illness Narrative CC: Ning Ann is a 51 year old female who presents to the office for follow up HPI: Left hand pain, tingling and swelling feeling. Was seen in EMERGENCY DEPARTMENT yesterday and had xray of ulna and radius which was normal. Also xray of left shoulder showed calcific tendinitis. Xray of wrist left side was also normal. Is interested in seeing orthopedics- this has caused her to lose her job since not able to use her left arm well without pain. Is taking meloxicam medication without relief. Cough, present for 2-3 weeks, sputum production is yellow in appearance. Did have fever and chills- those resolved. Did covid and influenza testing which was normal. No wheezing or dyspnea. Has been trying OTC decongestants with relief. No sore throat Chest pain, comes and goes, associated with left arm pain, happens at rest and not with exertion. No dyspnea. Has been sick and coughing. Does also have a hiatal hernia that will be corrected with bariatric surgery upcoming. No syncope or palpitations. PAST MEDICAL HISTORY Diagnosis Date Abdominal pain 02/15/2016 Abdominal pain, epigastric Anxiety state, unspecified Aortic aneurysm (HCC) ascending thoracic Asthma Calcaneal spur 05/24/2011 Carpal tunnel syndrome, right 05/2013 moderate Colon polyps Depressive disorder, not elsewhere classified Diaphragmatic hernia without mention of obstruction or gangrene DVT (deep venous thrombosis) (HCC) post foot surgery, x 2 interval Endometriosis ? HX not confirmed Fibromyalgia muscle pain GERD (gastroesophageal reflux disease) Hayfever 10/04/2010 HSV (herpes simplex virus) infection Hypercholesteremia Hypertension 01/2017 Impaired fasting glucose 08/2013 5.7% A1C Mild intermittent asthma without complication 10/27/2019 NNEKA (obstructive sleep apnea) 10/27/2019 Patellofemoral disorder 03/09/2009 PONV (postoperative nausea and vomiting) 03/17/2015 PTSD (post-traumatic stress disorder) per counseling center rheumatoid arthritis Right carpal tunnel syndrome 06/30/2013 Right hand paresthesia 04/28/2013 Seizures (HCC) Snoring Temporomandibular joint disorders, unspecified Toenail deformity 04/28/2013 Trigger middle finger of right hand 12/15/2014 Trigger ring finger of right hand 12/15/2014 Vitamin D deficiency 03/2013 PAST SURGICAL HISTORY Procedure Laterality Date CARPAL TUNNEL 07/2013 right, Dr. Draper DELIVERY ONLY 1990 , low cervical COLONOSCOPY 08/11/14 normal, repeat in 5 years COLONOSCOPY FLX DX W/COLLJ SPEC WHEN PFRMD 06/24/04 Colonoscopy/Dr. Cash COLONOSCOPY FLX DX W/COLLJ SPEC WHEN PFRMD 11/23/2017 Colonoscopy COLONOSCOPY W/BIOPSY SINGLE/MULTIPLE 05/04/10 EGD EGD 08/11/14 mild chronic gastritis EGD TRANSORAL BIOPSY SINGLE/MULTIPLE 05/04/10 ESOPHAGOGASTRODUODENOSCOPY TRANSORAL DIAGNOSTIC 11/23/2017 EGD ESOPHAGOGASTRODUODENOSCOPY TRANSORAL DIAGNOSTIC 05/01/2019 EGD INCISE FINGER TENDON SHEATH Right 03/23/2015 Right middle trigger finger release LAPAROSCOPIC TUBAL LIGATION/RING/CLIP 2012 alessandro elliott vesicouterine adhesions LAPAROSCOPY DIAGNOSTIC 2015 extensive KEVYN, severe LAPS SURG CHOLECYSTECTOMY W/CHOLANGIOGRAPHY 05/02/06 LAPS W/VAG HYSTERECT 250 GM/&RMVL TUBE&/OVARIES 2013 [facility] bilateral salpingectomy, scar tissue LIDOCAINE IV treatments-Mohit Duran PAST SURGICAL HISTORY OF 01/13/06 Bilateral Breast Reduction PAST SURGICAL HISTORY OF 06/14/2011 left foot for plantar fasciitis S CATH ABLATION THERMACHOICE 2012 uterine ablation Current Outpatient Medications Medication Sig meloxicam (MOBIC) 15 mg tablet Take 1 tablet by mouth once daily. Take with food. polyethylene glycol 3350 (MIRALAX) 17 gram/dose powder Take 1 scoop of powder by mouth with 8oz of liquid once daily in the morning rOPINIRole (REQUIP) 4 mg tablet Take 1 tablet by mouth daily at bedtime. albuterol HFA (PROVENTIL HFA, VENTOLIN HFA) 90 mcg/actuation inhaler Inhale 2 Puffs as instructed every 4 hours as needed for wheezing/shortness of breath. albuterol (PROVENTIL) 2.5 mg /3 mL (0.083 %) nebulizer solution Use 3 mL via nebulizer every 4 hours as needed for wheezing/shortness of breath. Use over 5-15minutes. jyjxrv-mfacxogz-gozlscv (CREON) 36,000-114,000- 180,000 unit delayed release capsule Take 3 capsules by mouth three times daily with meals. sucralfate (CARAFATE) 1 gram tablet Take 1 tablet by mouth before meals and at bedtime. Miscellaneous Medical Supply (BLOOD PRESSURE CUFF) 1 Each once daily. venlafaxine ER (EFFEXOR XR) 37.5 mg 24 hr capsule Take 1 capsule by mouth once daily. cyclobenzaprine (FLEXERIL) 10 mg tablet Take 1 tablet by mouth three times daily as needed for muscle spasm. triamcinolone acetonide (NASACORT) 55 mcg nasal inhaler Use 2 Sprays in the nose once daily. fluticasone (FLOVENT HFA) 110 mcg/actuation inhaler Inhale 1 Puff as instructed twice daily. Rinse mouth after using. cetirizine (ZYRTEC) 10 mg tablet Take 1 tablet by mouth once daily. cholecalciferol (VITAMIN D3) 50 mcg (2,000 unit) tablet Take 1 tablet by mouth once daily. cyanocobalamin (VITAMIN B-12) 1,000 mcg tab Take 1 tablet by mouth once daily. Magnesium Oxide 500 mg tab Take 1 tablet by mouth once daily. valACYclovir (VALTREX) 500 mg tablet Take 1 tablet by mouth twice daily. omeprazole (PRILOSEC) 40 mg capsule Take 1 capsule by mouth once daily. ipratropium-albuterol (DUONEB) 0.5 mg-3 mg(2.5 mg base)/3 mL nebu Inhale 3 mL as instructed every 4 hours as needed for wheezing/shortness of breath. lactobacillus rhamnosus (CULTURELLE) 15 billion cell capsule Take 1 capsule by mouth once daily. diclofenac (VOLTAREN) 1 % topical gel Apply 2 g to affected area four times daily. uses on foot and left arm dicyclomine (BENTYL) 10 mg capsule Take 1 capsule by mouth four times daily as needed. Nebulizers 1 Each as directed. Dx: wheezing, recurrent acute bronchitis, Nebulizer Accessories misc 1 Each as directed. Dx: wheezing, recurrent acute bronchitis, Tubing and mask for nebulizer No current facility-administered medications for this visit. ALLERGIES Allergen Reactions Miconazole Itching Milnacipran Mental Status Change, Other: See Comments [place] weird. Rivaroxaban Other: See Comments, GI Upset Taste of blood in mouth and muscle aches Warfarin Other: See Comments Morphine Shortness of Breath Atorvastatin Other: See Comments Leg aching and pain Coumadin [Warfarin * Other: See Comments headache,arm pain and back pain Dilaudid [Hydromorp* Other: See Comments Pain Hydromorphone Other: See Comments Lyrica [Pregabalin] Rash, Cough, Itching Prednisone Itching Social History Tobacco Use Smoking status: Never Smokeless tobacco: Never Vaping Use Vaping Use: Never used Substance Use Topics Alcohol use: Yes Comment: social Drug use: No ROS: See HPI PE: BP 136/86 Pulse 64 Temp (Src) 97.1 (Left Tympanic) Resp 20 Wt 248 lb (112.5kg) LMP 07/11/2012 Gen: A&OX3, NAD, non-toxic appearing HEENT: PERRLA, EOMs intact b/l, nares without drainage, pharynx without erythema, exudate, lesions, or drainage. Uvula midline. Neck: No LAD, no thyromegaly, no meningismus. + neck muscle tension left >right side with spasms of muscle present and trigger point on left mid trapezius CV: RRR, no murmur, normal s1s2 Left chest wall TTP that is reproducible Lungs: CTA b/l, coughing, rhonchi present at bases. Skin: No rashes, lesions, or wounds on exposed skin. Left arm reduced ROM shoulder and elbow and wrist and hand rug measurer due to pain and tingling ASSESSMENT/PLAN: 1. Need for influenza vaccination - ICD9: V04.81, ICD10: Z23 (primary diagnosis) - INFLUENZA VACCINE QUADRIVALENT 6 MO - 64 YRS IM 2. Left arm pain - ICD9: 729.5, ICD10: M79.602 Xray of cervical spine needed and follow up with orthopedics for opinion. Unsure where symptoms are coming from but suspicious of potential impingement. - XR CERV OTHER 4V AP/LAT/OBL - CONSULT TO ORTHOPAEDICS 3. Left hand pain - ICD9: 729.5, ICD10: M79.642 Xray of cervical spine needed and follow up with orthopedics for opinion. Unsure where symptoms are coming from but suspicious of potential impingement. Xray of wrist and elbow/ulna and radius was normal - XR CERV OTHER 4V AP/LAT/OBL - CONSULT TO ORTHOPAEDICS 4. Paresthesia - ICD9: 782.0, ICD10: R20.2 Xray of cervical spine needed and follow up with orthopedics for opinion. Unsure where symptoms are coming from but suspicious of potential impingement. Xray of wrist and elbow/ulna and radius was normal - XR CERV OTHER 4V AP/LAT/OBL - CONSULT TO ORTHOPAEDICS 5. Other chest pain - ICD9: 786.59, ICD10: R07.89 Atypical chest pain, likely related to recent cough/chest cold and neck / left arm pain, not likely cardiac by description. - ECG COMPLETE 6. Subacute cough - ICD9: 786.2, ICD10: R05.2 Atypical chest pain, likely related to recent cough/chest cold and neck / left arm pain, not likely cardiac by description. - METHYLPREDNISOLONE 4 MG TABLETS IN A DOSE PACK - DOXYCYCLINE HYCLATE 100 MG TABLET 7. Acute bronchitis, unspecified organism - ICD9: 466.0, ICD10: J20.9 rx as below, f/u in office if symptoms don't improve - METHYLPREDNISOLONE 4 MG TABLETS IN A DOSE PACK - DOXYCYCLINE HYCLATE 100 MG TABLET 8. Medication management - ICD9: V58.69, ICD10: Z79.899 - CONSULT TO PHARMACY Tang Olguin DO Return if no improvement. Follow up with Tang Olguin DO. To ER if develops chest pain, shortness of breath Discussed risks, benefits, alternatives, and potential side effects of medications. Patient/Guardian expressed understanding and agreed with the plan. See patient instructions. Tang Olguin DO [address] [place] [address] documented in this encounter [facility] 02-08-2022 Instructions Tawny Cope MD - 02/08/2022 1:26 PM EST I discussed regarding nature of Chronic pain syndrome. Discussed that this is not an inflammatory rheumatologic disease. It is a disorder that causes widespread muscle pain and tenderness which tends to come and go and move about the body. This common and chronic condition typically is associated with fatigue and sleep disturbances. Discussed that underlying sleep apnea may cause or worsen chronic pain, so sleep apnea testing is recommended. Discussed recommended management include: Regular exercise: regular graded aerobic exercise (start low and go slow), physical therapy and aquatic pool therapy. There are some reports on benefits from chriopractic and acupuncture procedures, Yoga, ana rosa chi, therapeutic massage, and other body-based therapies to relieve muscle spasms and stiffness. Come As You Are: YOGA - Gentle Yoga Anyone Can Do Anywhere [email or web address] Sleep : Improving sleep hygiene and quality, poor sleep impacts everything, recommended sleep is 7.5 to 8 hrs. a night. Certain people need less or more sleep. Meditation and relaxation techniques have shown to help with improving sleep. Diet: continue with healthy diet, Vit D supplementation. Stress management: staying positive, be happy, laugh often (it is a great medicine) Find time to relax and meditate if possible. Following steps 1-3 will help with this as well. In psychiatric disorders, it is important to follow with a professional on the optimal management of depression, anxiety or psychiatric illness Diet and Supplements: Continue with healthy diet, avoid processed food, refined sugar. Supplementing necessary vitamins and minerals, correcting any deficiencies, i.e. Vitamin D, B12, omega-3 fatty acids Blanding-3 plant based rich foods are good anti-inflammatory sources such as : lydia seeds, flax seed (needs to be ground), walnuts, hemp seeds, dark green leafy vegetables Medication, while important, are not first choice and not indicated for all patients, and not the only treatment. Patient education, exercise, self-management skills and alternative therapies help treat fibromyalgia symptoms. Certain patient require anti-depressants, especially if they have a diagnosis of depression. Patients who have other associated disorders, such as depression, would need to be evaluated and treated by their Primary care physician or Psychiatrist. Recommend the Fibroguide at [email or web address] website. It has shown that the website alone can be very effective in helping manage fibromyalgia symptoms. As discussed, this is a pain syndrome and usually well managed by primary care physicians. In certain cases, a referral to a building performance specialist and multidisciplinary management may be required, in patients who fail traditional management approach as prescribed by primary care physician and as listed above. documented in this encounter [facility] 02-08-2022 History of Present illness Narrative Images from the original note were not included. Rheumatology Outpatient Clinic Date of Service: 02/08/2022 Patient: Ning Ann Medical Record: [id number] Primary Care Physician: Tang Olguin DO Referring Provider: Tang Olguin [id number] [facility] [id number] Last Rheumatology visit: 07/23/2019 (with Andrés Bond) Chief complaint: Consult (Multiple joint pain, whole body, pain scale 8-9, aching pain, x years, just getting worse. ) History of Present Illness Ning Ann is a 51 year old White female with medical history of anxiety, ascending thoracic aortic aneurysm, Way's esophagus, asthma, right carpal tunnel syndrome, colon polyp, depression, DVT, fibromyalgia, GERD, hyperlipidemia, mild NNEKA (told that she did not need CPAP), hypertension, presents on 02/08/2022 for an in-person visit for evaluation of Consult (Multiple joint pain, whole body, pain scale 8-9, aching pain, x years, just getting worse. ). She is currently taking meloxicam. Ning is both RF - 9 (01/04/2022) and CCP - 13.5 (03/07/2019) negative. Her most recent ANTOINETTE was negative (01/04/2022). HISTORY OF PRESENT ILLNESS Patient was seen by rheumatology in 07/2019 for elevated sed rate and CRP. She did not have any evidence of inflammatory arthritis. She was diagnosed with fibromyalgia. Today she is here for follow-up of her elevated sed rate and CRP. Patient reports diffuse pain over whole body. Pain is gradually getting worse Pain is mostly continuous and worse with activities Has noted puffy hands but no joint swelling Has morning stiffness for whole day Medications tried for pain meloxicam 15 mg, tylenol as needed- helps slightly Lyrica- rash Duloxetine- didn't help for pain so switched to effexor Amitryptiline- tried, does not recall why stopped Tried water therapy that had helped Denies history of inflammatory eye disease, inflammatory bowel disease, psoriasis, history of kidney disease/biopsy, nephrolithiasis, peptic ulcer disease, miscarriages, malignancy, pleural/pericardial effusion, CHF, CAD, CVA. MRI right ankle 09/2019-FINDINGS OF CHRONIC PLANTAR FASCIITIS DETAILED. Radiograph feet 08/2019- No radiographic evidence of acute fracture or dislocation. The osseous structures appear intact. Bones of the midfoot are well aligned. Moderate to large size plantar calcaneal spur is noted. Small enthesophyte is identified in the posterior aspect of the calcaneus, at the site of insertion of the Achilles tendon. Few small dorsal tarsal spurs are noted. Stable appearing small well-corticated osseous density adjacent to the space between the distal fourth and fifth metatarsal. Radiograph hands 07/2019- Visualized soft tissues are normal. No fracture or erosion. Joint spaces are well-maintained. Patient-Entered Data PAIN EVALUATION 02/08/2022 1253 Pain Level: 9 Pain Location: Other: See Comment Joint pain, pain all over, pain scale 9. Description: Aching Duration Units: Years Frequency: Continuous Intervention/Comfort measure: Medication Comments: Meloxicam, it takes the edge off, cold makes it worse. PROMIS Assessments PROMIS Assessments 12/20/2021 02/05/2022 02/06/2022 Physical Health Percentile 4 % - 1 % Mental Health Percentile 19 % - 19 % Pain Score 2 - 2 Pain Interference Percentile - 4 % - Fatigue Percentile - 0 % - Physical Function Percentile - 16 % - RAPID 3 [place] Activities of Daily Living 02/05/2022 12:09 AM 08/25/2020 10:46 AM Dress self? With SOME difficulty With SOME difficulty Get in and out of bed? With SOME difficulty With SOME difficulty Walk outdoors? With SOME difficulty With SOME difficulty Wash and dry body? Without ANY difficulty With SOME difficulty Get in and out of car? Without ANY difficulty With SOME difficulty RAPID 3 Disease Activity Weighed Score Levels: 0 - 1: Near Remission 1.3 - 2.0: Low Severity 2.3 - 4.0: Moderate Severity 4.3 - 10.0: High Severity RAPID-3 Weighed Score 08/25/2020 02/05/2022 RAPID 3 Weighed Score 7.22 (High Severity (HS)) 6.56 (High Severity (HS)) Review of Systems REVIEW OF SYSTEMS: Joint pain: As above Joint swelling: Denies Joint stiffness: Whole day Back/neck pain: yes Enthesopathic pain: Denies Fever: Denies Change in weight: Denies Lymphadenopathy: Denies Mucosal ulcers: Denies Skin rash: Denies Photosensitive rash: Denies Alopecia: yes Chest Pain: Denies Dyspnea: Denies Cough : Yes with mild sputum since covid in 05/2021 Difficulty swallowing: Denies Nausea/vomiting: Denies Heartburn: Denies Abdominal Pain: Denies Diarrhea/constipation :alternating diarrhea and constipation, has IBD Blood in stool : Denies Dysuria/hematuria: Denies Muscle pain: Denies Muscle weakness: Denies Numbness: Yes, Tingling sensation over bilateral feet on and off. Headache: yes Seizures: Denies Raynaud's: Denies Sicca: Dry mouth Past Medical History PAST MEDICAL HISTORY Diagnosis Date Abdominal pain 02/15/2016 Abdominal pain, epigastric Anxiety state, unspecified Aortic aneurysm (HCC) ascending thoracic Asthma Calcaneal spur 05/24/2011 Carpal tunnel syndrome, right 05/2013 moderate Colon polyps Depressive disorder, not elsewhere classified Diaphragmatic hernia without mention of obstruction or gangrene DVT (deep venous thrombosis) (HCC) post foot surgery, x 2 interval Endometriosis ? HX not confirmed Fibromyalgia muscle pain GERD (gastroesophageal reflux disease) Hayfever 10/04/2010 HSV (herpes simplex virus) infection Hypercholesteremia Hypertension 01/2017 Impaired fasting glucose 08/2013 5.7% A1C Mild intermittent asthma without complication 10/27/2019 NNEKA (obstructive sleep apnea) 10/27/2019 Patellofemoral disorder 03/09/2009 PONV (postoperative nausea and vomiting) 03/17/2015 PTSD (post-traumatic stress disorder) per counseling center rheumatoid arthritis Right carpal tunnel syndrome 06/30/2013 Right hand paresthesia 04/28/2013 Seizures (HCC) Snoring Temporomandibular joint disorders, unspecified Toenail deformity 04/28/2013 Trigger middle finger of right hand 12/15/2014 Trigger ring finger of right hand 12/15/2014 Vitamin D deficiency 03/2013 Past Surgical History PAST SURGICAL HISTORY Procedure Laterality Date CARPAL TUNNEL 07/2013 right, Dr. Draper DELIVERY ONLY 1990 , low cervical COLONOSCOPY 08/11/14 normal, repeat in 5 years COLONOSCOPY FLX DX W/COLLJ SPEC WHEN PFRMD 06/24/04 Colonoscopy/Dr. Cash COLONOSCOPY FLX DX W/COLLJ SPEC WHEN PFRMD 11/23/2017 Colonoscopy COLONOSCOPY W/BIOPSY SINGLE/MULTIPLE 05/04/10 EGD EGD 08/11/14 mild chronic gastritis EGD TRANSORAL BIOPSY SINGLE/MULTIPLE 05/04/10 ESOPHAGOGASTRODUODENOSCOPY TRANSORAL DIAGNOSTIC 11/23/2017 EGD ESOPHAGOGASTRODUODENOSCOPY TRANSORAL DIAGNOSTIC 05/01/2019 EGD INCISE FINGER TENDON SHEATH Right 03/23/2015 Right middle trigger finger release LAPAROSCOPIC TUBAL LIGATION/RING/CLIP 2012 alessandro elliott vesicouterine adhesions LAPAROSCOPY DIAGNOSTIC 2016 extensive KEVYN, severe LAPS SURG CHOLECYSTECTOMY W/CHOLANGIOGRAPHY 05/02/06 LAPS W/VAG HYSTERECT 250 GM/&RMVL TUBE&/OVARIES 2013 [facility] bilateral salpingectomy, scar tissue LIDOCAINE IV treatments-Mohit Duran PAST SURGICAL HISTORY OF 01/13/06 Bilateral Breast Reduction PAST SURGICAL HISTORY OF 06/14/2011 left foot for plantar fasciitis S CATH ABLATION THERMACHOICE 2012 uterine ablation Allergy ALLERGIES Allergen Reactions Miconazole Itching Milnacipran Mental Status Change, Other: See Comments [place] weird. Rivaroxaban Other: See Comments, GI Upset Taste of blood in mouth and muscle aches Warfarin Other: See Comments Morphine Shortness of Breath Atorvastatin Other: See Comments Leg aching and pain Coumadin [Warfarin * Other: See Comments headache,arm pain and back pain Dilaudid [Hydromorp* Other: See Comments Pain Hydromorphone Other: See Comments Lyrica [Pregabalin] Rash, Cough, Itching Prednisone Itching Family History The patient denies family history of SLE, RA, Sarcoidosis, Scleroderma, IBD or Psoriasis. FAMILY HISTORY Problem Relation Age of Onset Hypertension Mother Lipids Mother Alcohol/Drug Mother Allergies Mother Alcohol/Drug Father Thyroid Sister other (fibromyalgia) Sister other (brain) Sister surgery brain too big for her skull (plate) Blindness Sister Emphysema Maternal Grandmother Emphysema Maternal Grandfather Heart Paternal Grandmother Alcohol/Drug Brother Social History Social History Tobacco Use Smoking status: Never Smokeless tobacco: Never Vaping Use Vaping Use: Never used Substance Use Topics Alcohol use: Yes Comment: social Drug use: No Current Medications Current Outpatient Medications Medication Sig meloxicam (MOBIC) 15 mg tablet Take 1 tablet by mouth once daily. Take with food. polyethylene glycol 3350 (MIRALAX) 17 gram/dose powder Take 1 scoop of powder by mouth with 8oz of liquid once daily in the morning rOPINIRole (REQUIP) 4 mg tablet Take 1 tablet by mouth daily at bedtime. albuterol HFA (PROVENTIL HFA, VENTOLIN HFA) 90 mcg/actuation inhaler Inhale 2 Puffs as instructed every 4 hours as needed for wheezing/shortness of breath. albuterol (PROVENTIL) 2.5 mg /3 mL (0.083 %) nebulizer solution Use 3 mL via nebulizer every 4 hours as needed for wheezing/shortness of breath. Use over 5-15minutes. uyzjhf-jgubjwfz-wsnluax (CREON) 36,000-114,000- 180,000 unit delayed release capsule Take 3 capsules by mouth three times daily with meals. sucralfate (CARAFATE) 1 gram tablet Take 1 tablet by mouth before meals and at bedtime. Miscellaneous Medical Supply (BLOOD PRESSURE CUFF) 1 Each once daily. venlafaxine ER (EFFEXOR XR) 37.5 mg 24 hr capsule Take 1 capsule by mouth once daily. cyclobenzaprine (FLEXERIL) 10 mg tablet Take 1 tablet by mouth three times daily as needed for muscle spasm. triamcinolone acetonide (NASACORT) 55 mcg nasal inhaler Use 2 Sprays in the nose once daily. fluticasone (FLOVENT HFA) 110 mcg/actuation inhaler Inhale 1 Puff as instructed twice daily. Rinse mouth after using. cetirizine (ZYRTEC) 10 mg tablet Take 1 tablet by mouth once daily. cholecalciferol (VITAMIN D3) 50 mcg (2,000 unit) tablet Take 1 tablet by mouth once daily. cyanocobalamin (VITAMIN B-12) 1,000 mcg tab Take 1 tablet by mouth once daily. Magnesium Oxide 500 mg tab Take 1 tablet by mouth once daily. valACYclovir (VALTREX) 500 mg tablet Take 1 tablet by mouth twice daily. omeprazole (PRILOSEC) 40 mg capsule Take 1 capsule by mouth once daily. ipratropium-albuterol (DUONEB) 0.5 mg-3 mg(2.5 mg base)/3 mL nebu Inhale 3 mL as instructed every 4 hours as needed for wheezing/shortness of breath. lactobacillus rhamnosus (CULTURELLE) 15 billion cell capsule Take 1 capsule by mouth once daily. diclofenac (VOLTAREN) 1 % topical gel Apply 2 g to affected area four times daily. uses on foot and left arm dicyclomine (BENTYL) 10 mg capsule Take 1 capsule by mouth four times daily as needed. Nebulizers 1 Each as directed. Dx: wheezing, recurrent acute bronchitis, Nebulizer Accessories misc 1 Each as directed. Dx: wheezing, recurrent acute bronchitis, Tubing and mask for nebulizer No current facility-administered medications for this visit. Labs CBC Latest Ref Rng & Units 03/18/2021 07/08/2021 12/05/2021 01/04/2022 WBC 3.70 - 11.00 k/uL - 7.52 10.72 10.77 HEMOGLOBIN 11.5 - 15.5 g/dL - 12.7 13.0 13.3 HEMOGLOBIN, ROBERTO 11.5 - 15.5 g/dL - - - - HEMATOCRIT 36.0 - 46.0 % 39.3 39.7 41.1 41.8 PLATELETS 150 - 400 k/uL - 280 300 247 ABS NEUT (ANC) 1.45 - 7.50 k/uL - 5.19 7.60(H) - ABS NEUT, ROBERTO 1.45 - 7.50 k/uL - - - - ABS LYMP, ROBERTO 1.00 - 4.00 k/uL - - - - ABS LYMPH 1.00 - 4.00 k/uL - 1.70 2.32 - CMP Latest Ref Rng & Units 03/18/2021 07/08/2021 12/05/2021 01/04/2022 SODIUM 136 - 144 mmol/L 136 139 139 140 SODIUM, ROBERTO 136 - 145 mmol/L - - - - SODIUM, ROBERTO 136 - 145 mmol/L - - - - POTASSIUM 3.7 - 5.1 mmol/L 4.2 4.3 3.8 4.6 POTASSIUM, ROBERTO 3.5 - 5.1 mmol/L - - - - CHLORIDE 97 - 105 mmol/L 101 103 104 102 CHLORIDE, ROBERTO 98 - 107 mmol/L - - - - CO2 22 - 30 mmol/L 24 27 22 26 CO2, ROBERTO 21.0 - 32.0 mmol/L - - - - GLUCOSE 74 - 99 mg/dL 96 97 84 95 GLUCOSE (U), ROBERTO NEGAT mg/dL - - - - GLUCOSE, ROBERTO 70 - 99 mg/dL - - - - BUN 7 - 21 mg/dL 12 8 8 11 BUN, ROBERTO 7 - 18 mg/dL - - - - CREATININE 0.58 - 0.96 mg/dL 0.73 0.72 0.73 0.76 CREATININE, ROBERTO 0.6 - 1.0 mg/dL - - - - CALCIUM, ROBERTO 8.5 - 10.1 mg/dL - - - - CALCIUM, TOTAL 8.5 - 10.2 mg/dL 9.4 9.2 9.5 9.0 AST 13 - 35 U/L 15 15 16 10(L) AST, ROBERTO 7 - 40 U/L - - - - ALT 7 - 38 U/L 20 18 20 16 ALT, ROBERTO 0 - 45 U/L - - - - ALKALINE PHOSPHATASE 34 - 123 U/L 113 119 134(H) 131(H) Uric Acid Latest Ref Rng & Units 01/31/2013 03/07/2019 URIC ACID 2.5 - 6.6 mg/dL 4.7 4.3 ESR, WSR Latest Ref Rng & Units 04/07/2019 07/29/2019 05/26/2020 01/04/2022 WSR 0 - 20 mm/hr 31(H) 35(H) 52(H) 35(H) SED RATE, ROBERTO 0 - 20 mm/hr - - - - CRP Latest Ref Rng & Units 07/29/2019 05/26/2020 02/16/2021 01/04/2022 CRP <0.9 mg/dL 3.0(H) 3.1(H) 3.3(H) 3.9(H) CK Latest Ref Rng & Units 06/21/2017 03/11/2019 CK 42 - 196 U/L 52 48 RF and CCP Latest Ref Rng & Units 03/13/2015 06/29/2015 03/07/2019 01/04/2022 RHEUMATOID FACTOR <16 IU/mL <10 10 <10 <10 CCP ANTIBODY, IGG <20 Units - - <15 - Hepatitis Screen Latest Ref Rng & Units 01/31/2013 07/29/2019 HEPBCOTOL Negative Negative Negative HEPSABQ Negative Equivocal(A) Negative HEPCABEIA Negative Negative Negative HBSAGR Negative Negative Negative TB Screen Latest Ref Rng & Units 01/10/2013 TBTEST 0 x 0 - 10 x 10 mm 0mm Antibodies Latest Ref Rng & Units 06/21/2017 03/07/2019 03/11/2019 01/04/2022 ANTOINETTE Negative Negative Negative - - ANTOINETTE BY EIA <1.5 OD Ratio - - - - ANTOINETTE BY EIA, QUAL Negative - - - Negative ANTOINETTE TITER Negative Negative Negative - - ANTOINETTE PATTERN - Not applicable for negative result. Not applicable for negative result. - - DNA ANTIBODY W/CONFIRMATION <30 IU/mL - - - - WOOD FINISHER ANTIBODY <1.0 AI - - <0.2 - WOOD FINISHER ANTIBODY QUAL Negative - - - Negative SSA ANTIBODY <1.0 AI - - <0.2 - SSA ANTIBODY QUAL Negative - - - Negative SSB ANTIBODY <1.0 AI - - <0.2 - RUBEN-1 ANTIBODY, IGG <1.0 AI - - <0.2 <0.2 RUBEN 1 ANTIBODY QUAL Negative - - - Negative RIBOSOMAL WOOD FINISHER <1.0 AI - - <0.2 - RIBOSOMAL WOOD FINISHER AB <1.0 AI - - - <0.2 RIBOSOMAL WOOD FINISHER QUAL Negative - - - Negative ANTI-SSA <1.0 AI - - - <0.2 ANTI-SSB <1.0 AI - - - <0.2 ANTI-SM <1.0 AI - - - <0.2 SM ANTIBODY Negative - - <0.2 Negative SCLERODERMA AB, IGG <1.0 AI - - <0.2 - SCL-70 AB QUAL Negative - - - Negative SCL-70 ABS, EIA <1.0 AI - - - <0.2 CENTROMERE AB <1.0 AI - - <0.2 <0.2 CENTROMERE AB QUAL Negative - - - Negative CHROMATIN AB <1.0 AI - - - <0.2 CHROMATIN AB QUAL Negative - - - Negative CHROMATIN ANTIBODY <1.0 AI - - <0.2 - PT INR 2.0 - 3.0 - - - - Urinalysis Latest Ref Rng & Units 01/08/2018 05/20/2018 11/19/2020 11/09/2021 PROTEIN, URINE Negative mg/dL Negative - - - PROTEIN (U), ROBERTO NEGAT mg/dL - - - - PROTEIN UA (POCT) Negative mg/dL - Negative Negative Negative RBC, URINE 0 - 3 /HPF - - - - RBC, URINE, ROBERTO /hpf - - - - Vitamin D Latest Ref Rng & Units 05/26/2020 03/18/2021 07/08/2021 01/04/2022 VITAMIN D 25 HYDROXY 31.0 - 80.0 ng/mL 37.8 39.9 37.8 27.8(L) Vitamin B12 Latest Ref Rng & Units 05/26/2020 03/18/2021 07/08/2021 01/04/2022 VITAMIN B12 232 - 1,245 pg/mL 871 649 1,230 616 Celiac Panel Latest Ref Rng & Units 07/29/2019 06/17/2020 CELIAC CATEGORY - - 0 CELIAC PANEL COMMENT - - SEE COMMENT CELIAC PNL INTERPRETATION - - No evidence of celiac disease. CELIAC RISK HAPLOTYPE Negative - Negative IGA 70 - 400 mg/dL 69(L) 64(L) TRANSGLUTAMINASE AB, IGA <20 Units - 2 Imaging Last XR Hand/Finger - Impression Only XR HAND GENERAL 3V PA/LAT/OBL BILAT Exam End: 07/29/2019 9:31 AM (Final result) Impression: IMPRESSION: No bone or articular disease identified. Plant Tour Guide: LEON Transcribe Date/Time: Jul 29 2019 9:33A ... Last MRI Hand - Impression Only No resulted procedures found. Last XR Chest - Impression Only XR CHEST 2V FRONTAL/LAT Exam End: 12/05/2021 11:56 AM (Final result) Impression: IMPRESSION: No acute radiographic abnormality. ... Last XR Cervical Spine - Impression Only XR CERVICAL AP/LAT/OBL Collected: 05/17/2009 2:33 PM (Final result) Health Maintenance Current Immunizations Reviewed on 02/17/2021 Name Date HEPATITIS B 05/31/2012 , 05/03/2012 INFLUENZA 03/18/2021 , 11/10/2018 , 11/10/2018 , 11/10/2018 , 01/04/2018 , 01/04/2018 , 12/10/2017 , 01/25/2017 , 11/30/2015 , 03/11/2014 , 01/11/2011 , 12/27/2009 , 12/23/2008 PPD ([place]) 04/01/2018 , 01/07/2013 Tdap (Age 7+) 01/25/2017 , 01/02/2006 VARICELLA-ZOSTER (SHINGLES) 10/18/2021 , 07/14/2021 measles mumps rubella (MMR) vaccine 02/21/2019 Physical Exam VITAL SIGNS: BP 149/87[forarm[ Pulse 83 Ht 5' 2 (1.58m) Wt 250 lb (113.4kg) SpO2 100% LMP 07/11/2012 BMI 45.71 kg/(m^2). GENERAL APPEARANCE: Well groomed. In no distress. SKIN: No rash, thickening, nodules, calcifications, discoloration. EYES: PERRL, EOMI HENT: Normal external examination of the ears and nose, lips, oropharynx and tongue. No oropharyngeal lesions, exudate, or sores. NECK: No mass or asymmetry, no lymphadenopathy. RESPIRATORY: Normal respiratory effort. Clear to auscultation, no wheeze. CARDIOVASCULAR: regular, normal rate, normal heart sounds, no murmur or rub ABDOMEN: BS normal. No bruits, NEUROLOGIC: Alert and oriented x 3. Motor exam: grossly Normal. Normal bulk and tone. MUSCULOSKELETAL EXAMINATION: Soft tissue tender points: Tenderness to light touch of skin all over her body Full ROM in all directions, No synovitis or joint effusion. Bony enlargement over multiple DIP bony enlargement over multiple DIPs Diagnoses: (M25.50) Multiple joint pain (primary encounter diagnosis) (R79.82) CRP elevated (M79.7) Fibromyalgia Impression and Plan 1. Elevated ESR/CRP She has persistently elevated sed rate and CRP for many years She has diffuse pain all over her body but no history of joint swelling, no synovitis on exam She does not have any evidence of inflammatory arthritis/autoimmune arthritis Also noted that RF, CCP, ANTOINETTE was negative in the past She reports being up-to-date with is appropriate malignancy screening Discussed that elevated sed rate and CRP can be elevated in different conditions and is not specific for autoimmune disease Discussed that it could also be elevated due to body fat 2. Fibromyalgia: Patient has diffuse body pain with fatigue, brain fog, nonrestorative sleep No synovitis on exam but has diffuse tenderness to light touch I discussed regarding nature of Chronic pain syndrome. Discussed that this is not an inflammatory rheumatologic disease. It is a disorder that causes widespread muscle pain and tenderness which tends to come and go and move about the body. This common and chronic condition typically is associated with fatigue and sleep disturbances. Discussed that underlying sleep apnea may cause or worsen chronic pain, so sleep apnea testing is recommended. She did see was diagnosed with mild NNEKA, advised to try using CPAP and see if her symptoms improve. Discussed recommended management include: Regular exercise: regular graded aerobic exercise (start low and go slow), physical therapy and aquatic pool therapy. There are some reports on benefits from chriopractic and acupuncture procedures, Yoga, ana rosa chi, therapeutic massage, and other body-based therapies to relieve muscle spasms and stiffness. Come As You Are: YOGA - Gentle Yoga Anyone Can Do Anywhere [email or web address] Sleep : Improving sleep hygiene and quality, poor sleep impacts everything, recommended sleep is 7.5 to 8 hrs. a night. Certain people need less or more sleep. Meditation and relaxation techniques have shown to help with improving sleep. Diet: continue with healthy diet, Vit D supplementation. Stress management: staying positive, be happy, laugh often (it is a great medicine) Find time to relax and meditate if possible. Following steps 1-3 will help with this as well. In psychiatric disorders, it is important to follow with a professional on the optimal management of depression, anxiety or psychiatric illness Diet and Supplements: Continue with healthy diet, avoid processed food, refined sugar. Supplementing necessary vitamins and minerals, correcting any deficiencies, i.e. Vitamin D, B12, omega-3 fatty acids Blanding-3 plant based rich foods are good anti-inflammatory sources such as : lydia seeds, flax seed (needs to be ground), walnuts, hemp seeds, dark green leafy vegetables Medication, while important, are not first choice and not indicated for all patients, and not the only treatment. Patient education, exercise, self-management skills and alternative therapies help treat fibromyalgia symptoms. Certain patient require anti-depressants, especially if they have a diagnosis of depression. Patients who have other associated disorders, such as depression, would need to be evaluated and treated by their Primary care physician or Psychiatrist. Recommend the Fibroguide at [email or web address] website. It has shown that the website alone can be very effective in helping manage fibromyalgia symptoms. As discussed, this is a pain syndrome and usually well managed by primary care physicians. In certain cases, a referral to a building performance specialist and multidisciplinary management may be required, in patients who fail traditional management approach as prescribed by primary care physician and as listed above. 3. Healthcare maintenance/Malignancy screening Defer to PCP Orders this visit: Office Visit on 02/08/22 CONSULT TO RHEUM/IMMUN DISEASE Return if symptoms worsen or fail to improve. I spent a total of 42 minutes on the date of the service which included preparing to see the patient, [id number] patient care, completing clinical documentation, obtaining and/or reviewing separately obtained history, performing a medically appropriate examination, and counseling and educating the patient/family/caregiver. Tawny Cope MD, MSUS Rheumatology documented in this encounter [facility] 01-26-2022 Miscellaneous Notes Left message for patient to call and reschedule PharmD appointment. Jane Flores RPh, PharmD PGY1 Aircraft Inspector documented in this encounter [facility] 01-06-2022 Miscellaneous Notes Ordered 01/04/2022. Sánchez Pelletier APRN.SERA Last office visit: 12/27/21 F/u scheduled: 02/17/22 Karen Middleton Ma documented in this encounter [facility] 01-04-2022 History of Present illness Narrative Chief Complaint Patient presents with: Hypertension HPI Ning Ann is a 51 year old female who presents here today for Above Complaints.. Today: The past few days has felt off, just not like herself. Took her BP at home: 158/98, 152/88, etc. Used to take BP medication, but hasn't for almost a year. Is a lot more tired than typical, can't hardly stay awake during the day. Past medical history, appointments, medications, allergies reviewed. Previous Medical History PAST MEDICAL HISTORY Diagnosis Date Abdominal pain 02/15/2016 Abdominal pain, epigastric Anxiety state, unspecified Aortic aneurysm (HCC) ascending thoracic Asthma Calcaneal spur 05/24/2011 Carpal tunnel syndrome, right 05/2013 moderate Colon polyps Depressive disorder, not elsewhere classified Diaphragmatic hernia without mention of obstruction or gangrene DVT (deep venous thrombosis) (HCC) post foot surgery, x 2 interval Endometriosis ? HX not confirmed Fibromyalgia muscle pain GERD (gastroesophageal reflux disease) Hayfever 10/04/2010 HSV (herpes simplex virus) infection Hypercholesteremia Hypertension 01/2017 Impaired fasting glucose 08/2013 5.7% A1C Mild intermittent asthma without complication 10/27/2019 NNEKA (obstructive sleep apnea) 10/27/2019 Patellofemoral disorder 03/09/2009 PONV (postoperative nausea and vomiting) 03/17/2015 PTSD (post-traumatic stress disorder) per counseling center rheumatoid arthritis Right carpal tunnel syndrome 06/30/2013 Right hand paresthesia 04/28/2013 Seizures (HCC) Snoring Temporomandibular joint disorders, unspecified Toenail deformity 04/28/2013 Trigger middle finger of right hand 12/15/2014 Trigger ring finger of right hand 12/15/2014 Vitamin D deficiency 03/2013 Previous Surgical History PAST SURGICAL HISTORY Procedure Laterality Date CARPAL TUNNEL 07/2013 right, Dr. Draper DELIVERY ONLY 1990 , low cervical COLONOSCOPY 08/11/14 normal, repeat in 5 years COLONOSCOPY FLX DX W/COLLJ SPEC WHEN PFRMD 06/24/04 Colonoscopy/Dr. Cash COLONOSCOPY FLX DX W/COLLJ SPEC WHEN PFRMD 11/23/2017 Colonoscopy COLONOSCOPY W/BIOPSY SINGLE/MULTIPLE 05/04/10 EGD EGD 08/11/14 mild chronic gastritis EGD TRANSORAL BIOPSY SINGLE/MULTIPLE 05/04/10 ESOPHAGOGASTRODUODENOSCOPY TRANSORAL DIAGNOSTIC 11/23/2017 EGD ESOPHAGOGASTRODUODENOSCOPY TRANSORAL DIAGNOSTIC 05/01/2019 EGD INCISE FINGER TENDON SHEATH Right 03/23/2015 Right middle trigger finger release LAPAROSCOPIC TUBAL LIGATION/RING/CLIP 2012 alessandro elliott vesicouterine adhesions LAPAROSCOPY DIAGNOSTIC 2016 extensive KEVYN, severe LAPS SURG CHOLECYSTECTOMY W/CHOLANGIOGRAPHY 05/02/06 LAPS W/VAG HYSTERECT 250 GM/&RMVL TUBE&/OVARIES 2013 [facility] bilateral salpingectomy, scar tissue LIDOCAINE IV treatments-Mohit Duran PAST SURGICAL HISTORY OF 01/13/06 Bilateral Breast Reduction PAST SURGICAL HISTORY OF 06/14/2011 left foot for plantar fasciitis S CATH ABLATION THERMACHOICE 2013 uterine ablation Family History FAMILY HISTORY Problem Relation Age of Onset Hypertension Mother Lipids Mother Alcohol/Drug Mother Allergies Mother Alcohol/Drug Father Thyroid Sister other (fibromyalgia) Sister other (brain) Sister surgery brain too big for her skull (plate) Blindness Sister Emphysema Maternal Grandmother Emphysema Maternal Grandfather Heart Paternal Grandmother Alcohol/Drug Brother Patient Allergies ALLERGIES Allergen Reactions Miconazole Itching Milnacipran Mental Status Change, Other: See Comments [place] weird. Rivaroxaban Other: See Comments, GI Upset Taste of blood in mouth and muscle aches Warfarin Other: See Comments Morphine Shortness of Breath Atorvastatin Other: See Comments Leg aching and pain Coumadin [Warfarin * Other: See Comments headache,arm pain and back pain Dilaudid [Hydromorp* Other: See Comments Pain Hydromorphone Other: See Comments Lyrica [Pregabalin] Rash, Cough, Itching Prednisone Itching Current Medications Current Outpatient Medications on File Prior to Visit Medication Sig doxycycline (VIBRA-TABS) 100 mg tablet Take 1 tablet by mouth twice daily for 10 days. albuterol (PROVENTIL) 2.5 mg /3 mL (0.083 %) nebulizer solution Use 3 mL via nebulizer every 4 hours as needed for wheezing/shortness of breath. Use over 5-15minutes. venlafaxine ER (EFFEXOR XR) 37.5 mg 24 hr capsule Take 1 capsule by mouth once daily. cyclobenzaprine (FLEXERIL) 10 mg tablet Take 1 tablet by mouth three times daily as needed for muscle spasm. triamcinolone acetonide (NASACORT) 55 mcg nasal inhaler Use 2 Sprays in the nose once daily. fluticasone (FLOVENT HFA) 110 mcg/actuation inhaler Inhale 1 Puff as instructed twice daily. Rinse mouth after using. cetirizine (ZYRTEC) 10 mg tablet Take 1 tablet by mouth once daily. cholecalciferol (VITAMIN D3) 50 mcg (2,000 unit) tablet Take 1 tablet by mouth once daily. cyanocobalamin (VITAMIN B-12) 1,000 mcg tab Take 1 tablet by mouth once daily. Magnesium Oxide 500 mg tab Take 1 tablet by mouth once daily. valACYclovir (VALTREX) 500 mg tablet Take 1 tablet by mouth twice daily. omeprazole (PRILOSEC) 40 mg capsule Take 1 capsule by mouth once daily. ipratropium-albuterol (DUONEB) 0.5 mg-3 mg(2.5 mg base)/3 mL nebu Inhale 3 mL as instructed every 4 hours as needed for wheezing/shortness of breath. fluticasone (FLONASE) 50 mcg/actuation nasal spray Use 2 Sprays in each nostril once daily. Rinse mouth after use. lactobacillus rhamnosus (CULTURELLE) 15 billion cell capsule Take 1 capsule by mouth once daily. albuterol HFA (PROVENTIL HFA, VENTOLIN HFA) 90 mcg/actuation inhaler Inhale 2 Puffs as instructed every 4 hours as needed for wheezing/shortness of breath. rOPINIRole (REQUIP) 4 mg tablet Take 1 tablet by mouth daily at bedtime. diclofenac (VOLTAREN) 1 % topical gel Apply 2 g to affected area four times daily. uses on foot and left arm dicyclomine (BENTYL) 10 mg capsule Take 1 capsule by mouth four times daily as needed. Nebulizers 1 Each as directed. Dx: wheezing, recurrent acute bronchitis, Nebulizer Accessories misc 1 Each as directed. Dx: wheezing, recurrent acute bronchitis, Tubing and mask for nebulizer traZODone (DESYREL) 50 mg tablet Take 1-2 tablets by mouth daily at bedtime. For insomnia, perimenopause (Patient not taking: Reported on 01/04/2022) DULoxetine (CYMBALTA) 20 mg capsule Take 1 capsule every day x 2 weeks then 1 capsule every other day x 2 weeks then stop medication (tapering off) ferrous sulfate (SLOW FE) 140 mg (45 mg iron) TbER Take 1 tablet by mouth twice daily with meals. (Patient not taking: Reported on 01/04/2022) metoprolol succinate ER (TOPROL XL) 25 mg 24 hr tablet Take 1 tablet by mouth daily at bedtime. FOR blood pressure (Patient not taking: Reported on 01/04/2022) hydrocortisone (ANUSOL-HC) 25 mg suppository 1 Suppository by RECTAL route twice daily as needed (hemorrhoids/rectal pain). cholestyramine (QUESTRAN) 4 gram packet Take 1 Packet by mouth three times daily with meals. No current facility-administered medications on file prior to visit. Social History Social History Tobacco Use Smoking status: Never Smokeless tobacco: Never Vaping Use Vaping Use: Never used Substance Use Topics Alcohol use: Yes Comment: social Drug use: No Review of Symptoms REVIEW OF SYSTEMS See HPI, otherwise negative EXAM: BP 124/96 (BP Site: Left Arm, BP Position: Sitting, BP Cuff Size: Regular Adult) Pulse 82 Resp 16 Wt 111.1 kg (245 lb) LMP 07/11/2012 SpO2 97% BMI 44.81 kg/m General Appearance: Well appearing, alert, in no acute distress, well-hydrated, well nourished. and Morbidly obese. Oropharynx: Lips, mucosa, and tongue normal, teeth and gums normal, oropharynx normal. Neck: Supple, no adenopathy; thyroid symmetric, normal size, no bruits. Lungs: Lungs clear to auscultation. No wheezing, rhonchi, rales.. Heart: RRR without murmur, gallop, or rubs. No ectopy. Lymph Nodes: No cervical lymphadenopathy and No supraclavicular lymphadenopathy. Psychiatric: pleasant, cooperative. Health Maintenance List COVID-19 VACCINE(1) Never done PNEUMOCOCCAL(1 - PCV) Never done HEPATITIS B(3 of 3 - 3-dose series) due on 08/23/2012 INFLUENZA(1) due on 11/10/2021 MAMMOGRAM due on 03/23/2022 BP CONTROLLED (<130/80) due on 11/09/2022 ANNUAL PCP TEAM CHRONIC DISEASE VISIT due on 12/27/2022 DIABETES SCREEN due on 12/05/2024 LIPID SCREEN due on 07/29/2026 DTAP,TDAP,TD(3 - Td or Tdap) due on 01/25/2027 COLORECTAL CANCER SCREENING due on 11/24/2027 SPIROMETRY Completed HEPATITIS C SCREENING Completed HIV SCREENING Completed SHINGRIX VACCINE Completed PAP TESTING Discontinued HPV TESTING Discontinued Data reviewed Previous records, office notes ASSESSMENT/PLAN: 1. Elevated BP without diagnosis of hypertension - ICD9: 796.2, ICD10: R03.0 (primary diagnosis) - Encouraged dietary sodium restriction/DASH diet - Recommended regular aerobic exercise. - Recommend home blood pressure monitoring, to bring results in on next visit - Goal of BP <130/80 - CBC - COMP METABOLIC PANEL - TSH BLD - C-REACTIVE PROTEIN (CRP) - SED RATE WESTERGREN - BLOOD PRESSURE CUFF - IRON + TIBC - FERRITIN BLD - CONSULT TO PHARMACY 2. Restless legs - ICD9: 333.94, ICD10: G25.81 - ROPINIROLE 4 MG TABLET 3. Pleuritic pain - ICD9: 786.52, ICD10: R07.81 - ALBUTEROL SULFATE 2.5 MG/3 ML (0.083 %) SOLUTION FOR NEBULIZATION 4. Fatigue, unspecified type - ICD9: 780.79, ICD10: R53.83 - CBC - COMP METABOLIC PANEL - TSH BLD - VITAMIN D 25 HYDROXY - VITAMIN B12 BLOOD - C-REACTIVE PROTEIN (CRP) - SED RATE WESTERGREN - CONSULT TO PHARMACY 5. Polypharmacy - ICD9: V58.69, ICD10: Z79.899 - CONSULT TO PHARMACY 6. Acute cough - ICD9: 786.2, ICD10: R05.1 - ALBUTEROL SULFATE 2.5 MG/3 ML (0.083 %) SOLUTION FOR NEBULIZATION 7. Cough - ICD9: 786.2, ICD10: R05.9 - ALBUTEROL SULFATE HFA 90 MCG/ACTUATION AEROSOL INHALER Sánchez Pelletier APRN.SERA documented in this encounter [facility] 12-27-2021 Instructions Tang Olguin DO - 12/27/2021 11:09 AM EDT Manager Sales Training Dr. Jhonathan Luna documented in this encounter [facility] 12-27-2021 History of Present illness Narrative CC: Ning Ann is a 51 year old female who presents to the office for follow up HPI: Hiatal hernia, diagnosed with moderate size. Also confirmed to have Way's esophagus by EGD with Dr. [facility]ez [facility] at [facility]. Also found to have pancreatic insufficiency and now taking Creon with meals. Still struggling with bloating and indigestion. Has a follow up. Found to have elevated CRP at 28. Has a lot of chronic muscle and joint pains. Has been diagnosed with fibromyalgia in the past. Hasn't seen Manager Sales Training recently. Cough, present for 3-4 weeks. Was treated with amoxicillin and cough medication without relief. Has been using her albuterol and mucinex as well. No fevers or chills. Symptoms worse when trying to be active or laying down at night. Had labs with normal D dimer levels and elevated neutrophil levels. PAST MEDICAL HISTORY Diagnosis Date Abdominal pain 02/15/2016 Abdominal pain, epigastric Anxiety state, unspecified Aortic aneurysm (HCC) ascending thoracic Asthma Calcaneal spur 05/24/2011 Carpal tunnel syndrome, right 05/2013 moderate Colon polyps Depressive disorder, not elsewhere classified Diaphragmatic hernia without mention of obstruction or gangrene DVT (deep venous thrombosis) ([facility]) post foot surgery, x 2 interval Endometriosis ? HX not confirmed Fibromyalgia muscle pain GERD (gastroesophageal reflux disease) Hayfever 10/04/2010 HSV (herpes simplex virus) infection Hypercholesteremia Hypertension 01/2017 Impaired fasting glucose 08/2013 5.7% A1C Mild intermittent asthma without complication 10/27/2019 NNEKA (obstructive sleep apnea) 10/27/2019 Patellofemoral disorder 03/09/2009 PONV (postoperative nausea and vomiting) 03/17/2015 PTSD (post-traumatic stress disorder) per counseling center rheumatoid arthritis Right carpal tunnel syndrome 06/30/2013 Right hand paresthesia 04/28/2013 Seizures ([facility]) Snoring Temporomandibular joint disorders, unspecified Toenail deformity 04/28/2013 Trigger middle finger of right hand 12/15/2014 Trigger ring finger of right hand 12/15/2014 Vitamin D deficiency 03/2013 PAST SURGICAL HISTORY Procedure Laterality Date CARPAL TUNNEL 07/2013 right, Dr. Draper DELIVERY ONLY 1990 , low cervical COLONOSCOPY 08/11/14 normal, repeat in 5 years COLONOSCOPY FLX DX W/COLLJ SPEC WHEN PFRMD 06/24/04 Colonoscopy/Dr. Cash COLONOSCOPY FLX DX W/COLLJ SPEC WHEN PFRMD 11/23/2017 Colonoscopy COLONOSCOPY W/BIOPSY SINGLE/MULTIPLE 05/04/10 EGD EGD 08/11/14 mild chronic gastritis EGD TRANSORAL BIOPSY SINGLE/MULTIPLE 05/04/10 ESOPHAGOGASTRODUODENOSCOPY TRANSORAL DIAGNOSTIC 11/23/2017 EGD ESOPHAGOGASTRODUODENOSCOPY TRANSORAL DIAGNOSTIC 05/01/2019 EGD INCISE FINGER TENDON SHEATH Right 03/23/2015 Right middle trigger finger release LAPAROSCOPIC TUBAL LIGATION/RING/CLIP 2012 alessandro elliott vesicouterine adhesions LAPAROSCOPY DIAGNOSTIC 2015 extensive KEVYN, severe LAPS SURG CHOLECYSTECTOMY W/CHOLANGIOGRAPHY 05/02/06 LAPS W/VAG HYSTERECT 250 GM/&RMVL TUBE&/OVARIES 2013 [facility] bilateral salpingectomy, scar tissue LIDOCAINE IV treatments-Mohit Duran PAST SURGICAL HISTORY OF 01/13/06 Bilateral Breast Reduction PAST SURGICAL HISTORY OF 06/14/2011 left foot for plantar fasciitis S CATH ABLATION THERMACHOICE 2012 uterine ablation Social History: Social History Tobacco Use Smoking status: Never Smokeless tobacco: Never Vaping Use Vaping Use: Never used Substance Use Topics Alcohol use: Yes Comment: social Drug use: No FAMILY HISTORY Problem Relation Age of Onset Hypertension Mother Lipids Mother Alcohol/Drug Mother Allergies Mother Alcohol/Drug Father Thyroid Sister other (fibromyalgia) Sister other (brain) Sister surgery brain too big for her skull (plate) Blindness Sister Emphysema Maternal Grandmother Emphysema Maternal Grandfather Heart Paternal Grandmother Alcohol/Drug Brother Current Outpatient prescriptions: albuterol (PROVENTIL) 2.5 mg /3 mL (0.083 %) nebulizer solution Use 3 mL via nebulizer every 4 hours as needed for wheezing/shortness of breath. Use over 5-15minutes. venlafaxine ER (EFFEXOR XR) 37.5 mg 24 hr capsule Take 1 capsule by mouth once daily. cyclobenzaprine (FLEXERIL) 10 mg tablet Take 1 tablet by mouth three times daily as needed for muscle spasm. triamcinolone acetonide (NASACORT) 55 mcg nasal inhaler Use 2 Sprays in the nose once daily. fluticasone (FLOVENT HFA) 110 mcg/actuation inhaler Inhale 1 Puff as instructed twice daily. Rinse mouth after using. traZODone (DESYREL) 50 mg tablet Take 1-2 tablets by mouth daily at bedtime. For insomnia, perimenopause cetirizine (ZYRTEC) 10 mg tablet Take 1 tablet by mouth once daily. cholecalciferol (VITAMIN D3) 50 mcg (2,000 unit) tablet Take 1 tablet by mouth once daily. cyanocobalamin (VITAMIN B-12) 1,000 mcg tab Take 1 tablet by mouth once daily. ferrous sulfate (SLOW FE) 140 mg (45 mg iron) TbER Take 1 tablet by mouth twice daily with meals. Magnesium Oxide 500 mg tab Take 1 tablet by mouth once daily. valACYclovir (VALTREX) 500 mg tablet Take 1 tablet by mouth twice daily. omeprazole (PRILOSEC) 40 mg capsule Take 1 capsule by mouth once daily. ipratropium-albuterol (DUONEB) 0.5 mg-3 mg(2.5 mg base)/3 mL nebu Inhale 3 mL as instructed every 4 hours as needed for wheezing/shortness of breath. fluticasone (FLONASE) 50 mcg/actuation nasal spray Use 2 Sprays in each nostril once daily. Rinse mouth after use. lactobacillus rhamnosus (CULTURELLE) 15 billion cell capsule Take 1 capsule by mouth once daily. albuterol HFA (PROVENTIL HFA, VENTOLIN HFA) 90 mcg/actuation inhaler Inhale 2 Puffs as instructed every 4 hours as needed for wheezing/shortness of breath. rOPINIRole (REQUIP) 4 mg tablet Take 1 tablet by mouth daily at bedtime. hydrocortisone (ANUSOL-HC) 25 mg suppository 1 Suppository by RECTAL route twice daily as needed (hemorrhoids/rectal pain). diclofenac (VOLTAREN) 1 % topical gel Apply 2 g to affected area four times daily. uses on foot and left arm cholestyramine (QUESTRAN) 4 gram packet Take 1 Packet by mouth three times daily with meals. dicyclomine (BENTYL) 10 mg capsule Take 1 capsule by mouth four times daily as needed. Nebulizers 1 Each as directed. Dx: wheezing, recurrent acute bronchitis, Nebulizer Accessories misc 1 Each as directed. Dx: wheezing, recurrent acute bronchitis, Tubing and mask for nebulizer doxycycline (VIBRA-TABS) 100 mg tablet Take 1 tablet by mouth twice daily for 10 days. methylPREDNISolone (MEDROL, ESTELLE,) 4 mg Dose-Pack Follow dosing instructions, take with food. DULoxetine (CYMBALTA) 20 mg capsule Take 1 capsule every day x 2 weeks then 1 capsule every other day x 2 weeks then stop medication (tapering off) metoprolol succinate ER (TOPROL XL) 25 mg 24 hr tablet Take 1 tablet by mouth daily at bedtime. FOR blood pressure Allergies: ALLERGIES Allergen Reactions Miconazole Itching Milnacipran Mental Status Change, Other: See Comments [place] weird. Rivaroxaban Other: See Comments, GI Upset Taste of blood in mouth and muscle aches Warfarin Other: See Comments Morphine Shortness of Breath Atorvastatin Other: See Comments Leg aching and pain Coumadin [Warfarin * Other: See Comments headache,arm pain and back pain Dilaudid [Hydromorp* Other: See Comments Pain Hydromorphone Other: See Comments Lyrica [Pregabalin] Rash, Cough, Itching Prednisone Itching ROS: See HPI PE: 12/27/21 1011 BP: 130/80 Pulse: 80 Resp: 16 Temp: 36.5 C (97.7 F) TempSrc: Right Tympanic Weight: 110.7 kg (244 lb) Gen: A&O, NAD, non-toxic appearing, coughing, fatigued appearing. HEENT: NT/AC, PERRLA, EOMs intact b/l, nares congested and swollen turbinates, pharynx without erythema, exudate or lesions. Uvula midline. EACs without erythema or debris. TMs pearly dennison with serous effusion present Neck: supple, No cervical LAD, no thyromegaly, no carotid bruits CV: RRR, normal S1 and S2, no murmurs, no gallops, no rubs, Pulses 2+ and symmetric in UE and LE b/l Lungs: normal respiratory effort, coughing through examination, no respiratory distress Abd: soft, obese, bloated appearing, mild generalized pain, +BS, no hepatosplenomegaly MS: muscle and joint pain diffusely Neuro: CN II-XII intact b/l Skin: warm, dry, intact, No rashes or lesions on exposed skin. ASSESSMENT/PLAN: 1. Subacute cough - ICD9: 786.2, ICD10: R05.2 (primary diagnosis) - rx as below, f/u in office if symptoms don't improve. - DOXYCYCLINE HYCLATE 100 MG TABLET - METHYLPREDNISOLONE 4 MG TABLETS IN A DOSE PACK 2. Acute bronchitis, unspecified organism - ICD9: 466.0, ICD10: J20.9 See above, start on antibiotic and medrol dose pack - DOXYCYCLINE HYCLATE 100 MG TABLET - METHYLPREDNISOLONE 4 MG TABLETS IN A DOSE PACK 3. Multiple joint pain - ICD9: 719.49, ICD10: M25.50 - f/u with repeat labs and referral to Manager Sales Training, CRP at [facility] recently at -. Hx of fibromyalgia. No diagnosis in past of inflammatory arthritis. Unsure cause - CONSULT TO RHEUM/IMMUN DISEASE - ANTI EDSON ID - ANTOINETTE BLOOD - RHEUMATOID FACTOR BL 4. CRP elevated - ICD9: 790.95, ICD10: R79.82 - f/u with repeat labs and referral to Manager Sales Training, CRP at [facility] recently at -. Hx of fibromyalgia. No diagnosis in past of inflammatory arthritis. Unsure cause - CONSULT TO RHEUM/IMMUN DISEASE - ANTI EDSON ID - ANTOINETTE BLOOD - RHEUMATOID FACTOR BL 5. Pancreatic insufficiency - ICD9: 577.8, ICD10: K86.89 F/u with Product Distribution Specialist, taking Creon medication 6. Hiatal hernia - ICD9: 553.3, ICD10: K44.9 - f/u with GI, need for surgical intervention to be considered due to her recent diagnosis of Way's esophagitis 7. Way's esophagus with dysplasia - ICD9: 530.85, ICD10: K22.719 See above Tang Olguin DO To ER if develops chest pain, shortness of breath, or severe worsening of symptoms. Discussed risks, benefits, alternatives, and potential side effects of medications. Patient expressed understanding and agreed with the plan. Tang Olguin DO [address] [place] [address] documented in this encounter [facility] 12-08-2021 Miscellaneous Notes Noted. Thank you, Silva Sweneey APRN.SERA Pt informed and agreed to go to the ER. Alicia Christian Ma Please call patient and let her know that if she is having numbness or abnormal feeling to one side of her face/body -- she needs to go to ER d/t concerns for stroke. Thank you, Silva Sweeney APRN.SERA Please review labs. Pt also sent additional message regarding D-Dimer, but I'm closing it as this encounter is open. Barabra Rojas Ma documented in this encounter [facility] 12-06-2021 Miscellaneous Notes Duplicate request. Pt sent in additional message regarding lab results. Barbara Rojas Ma documented in this encounter [facility] 12-05-2021 History of Present illness Narrative Chief Complaint Patient presents with: Cough HPI Ning Ann is a 51 year old female who presents here today for Above Complaints. Ning is an established patient of Dr. Sharif DO. Lorna is a new patient to me today. Concerns today... Cough, Congestion, headache -- Been to [facility] urgent care x2 in the last 6 days. At first visit 6 days ago, tested negative for COVID. Given amoxicillin ATB regimen. Symptoms did not improve and returned to yesterday, given prednisone taper. COVID negative again. Today... Reports only taking 1 prednisone tablet and had extreme itchiness and throat closing sensation so she stopped taking this and does not want to take anymore. Reports symptoms of productive cough with pleitez/yellow sputum, pleuritic pain with deep breath and coughing, lost her voice, and scratchy throat. Hx of asthma. Taking albuterol inhaler more frequently. Reports mild CP radiating to R arm. Taking OTC cough drops and tessalone perles for cough with no relief. Feels she is getting a yeast infection from antibiotic regimen. Has tried OTC cream without relief. No other concerns or complaints. Past medical history, appointments, medications, allergies reviewed. Previous Medical History PAST MEDICAL HISTORY Diagnosis Date Abdominal pain 02/15/2016 Abdominal pain, epigastric Anxiety state, unspecified Aortic aneurysm (HCC) ascending thoracic Asthma Calcaneal spur 05/24/2011 Carpal tunnel syndrome, right 05/2013 moderate Colon polyps Depressive disorder, not elsewhere classified Diaphragmatic hernia without mention of obstruction or gangrene DVT (deep venous thrombosis) (HCC) post foot surgery, x 2 interval Endometriosis ? HX not confirmed Fibromyalgia muscle pain GERD (gastroesophageal reflux disease) Hayfever 10/04/2010 HSV (herpes simplex virus) infection Hypercholesteremia Hypertension 01/2017 Impaired fasting glucose 08/2013 5.7% A1C Mild intermittent asthma without complication 10/27/2019 NNEKA (obstructive sleep apnea) 10/27/2019 Patellofemoral disorder 03/09/2009 PONV (postoperative nausea and vomiting) 03/17/2015 PTSD (post-traumatic stress disorder) per counseling center rheumatoid arthritis Right carpal tunnel syndrome 06/30/2013 Right hand paresthesia 04/28/2013 Seizures ([facility]) Snoring Temporomandibular joint disorders, unspecified Toenail deformity 04/28/2013 Trigger middle finger of right hand 12/15/2014 Trigger ring finger of right hand 12/15/2014 Vitamin D deficiency 03/2013 Previous Surgical History PAST SURGICAL HISTORY Procedure Laterality Date CARPAL TUNNEL 07/2013 right, Dr. Draper DELIVERY ONLY 1990 , low cervical COLONOSCOPY 08/11/14 normal, repeat in 5 years COLONOSCOPY FLX DX W/COLLJ SPEC WHEN PFRMD 06/24/04 Colonoscopy/Dr. Cash COLONOSCOPY FLX DX W/COLLJ SPEC WHEN PFRMD 11/23/2017 Colonoscopy COLONOSCOPY W/BIOPSY SINGLE/MULTIPLE 05/04/10 EGD EGD 08/11/14 mild chronic gastritis EGD TRANSORAL BIOPSY SINGLE/MULTIPLE 05/04/10 ESOPHAGOGASTRODUODENOSCOPY TRANSORAL DIAGNOSTIC 11/23/2017 EGD ESOPHAGOGASTRODUODENOSCOPY TRANSORAL DIAGNOSTIC 05/01/2019 EGD INCISE FINGER TENDON SHEATH Right 03/23/2015 Right middle trigger finger release LAPAROSCOPIC TUBAL LIGATION/RING/CLIP 2012 alessandro elliott vesicouterine adhesions LAPAROSCOPY DIAGNOSTIC 2016 extensive KEVYN, severe LAPS SURG CHOLECYSTECTOMY W/CHOLANGIOGRAPHY 05/02/06 LAPS W/VAG HYSTERECT 250 GM/&RMVL TUBE&/OVARIES 2014 [facility] bilateral salpingectomy, scar tissue LIDOCAINE IV treatments-Mohit Duran PAST SURGICAL HISTORY OF 01/13/06 Bilateral Breast Reduction PAST SURGICAL HISTORY OF 06/14/2011 left foot for plantar fasciitis S CATH ABLATION THERMACHOICE 2012 uterine ablation Family History FAMILY HISTORY Problem Relation Age of Onset Hypertension Mother Lipids Mother Alcohol/Drug Mother Allergies Mother Alcohol/Drug Father Thyroid Sister other (fibromyalgia) Sister other (brain) Sister surgery brain too big for her skull (plate) Blindness Sister Emphysema Maternal Grandmother Emphysema Maternal Grandfather Heart Paternal Grandmother Alcohol/Drug Brother Patient Allergies ALLERGIES Allergen Reactions Miconazole Itching Milnacipran Mental Status Change, Other: See Comments [place] weird. Rivaroxaban Other: See Comments, GI Upset Taste of blood in mouth and muscle aches Warfarin Other: See Comments Morphine Shortness of Breath Atorvastatin Other: See Comments Leg aching and pain Coumadin [Warfarin * Other: See Comments headache,arm pain and back pain Dilaudid [Hydromorp* Other: See Comments Pain Hydromorphone Other: See Comments Lyrica [Pregabalin] Rash, Cough, Itching Current Medications Current Outpatient Medications on File Prior to Visit Medication Sig venlafaxine ER (EFFEXOR XR) 37.5 mg 24 hr capsule Take 1 capsule by mouth once daily. cyclobenzaprine (FLEXERIL) 10 mg tablet Take 1 tablet by mouth three times daily as needed for muscle spasm. triamcinolone acetonide (NASACORT) 55 mcg nasal inhaler Use 2 Sprays in the nose once daily. fluticasone (FLOVENT HFA) 110 mcg/actuation inhaler Inhale 1 Puff as instructed twice daily. Rinse mouth after using. traZODone (DESYREL) 50 mg tablet Take 1-2 tablets by mouth daily at bedtime. For insomnia, perimenopause (Patient not taking: Reported on 08/23/2021 ) cetirizine (ZYRTEC) 10 mg tablet Take 1 tablet by mouth once daily. cholecalciferol (VITAMIN D3) 50 mcg (2,000 unit) tablet Take 1 tablet by mouth once daily. cyanocobalamin (VITAMIN B-12) 1,000 mcg tab Take 1 tablet by mouth once daily. DULoxetine (CYMBALTA) 20 mg capsule Take 1 capsule every day x 2 weeks then 1 capsule every other day x 2 weeks then stop medication (tapering off) (Patient not taking: Reported on 08/23/2021 ) ferrous sulfate (SLOW FE) 140 mg (45 mg iron) TbER Take 1 tablet by mouth twice daily with meals. Magnesium Oxide 500 mg tab Take 1 tablet by mouth once daily. valACYclovir (VALTREX) 500 mg tablet Take 1 tablet by mouth twice daily. omeprazole (PRILOSEC) 40 mg capsule Take 1 capsule by mouth once daily. ipratropium-albuterol (DUONEB) 0.5 mg-3 mg(2.5 mg base)/3 mL nebu Inhale 3 mL as instructed every 4 hours as needed for wheezing/shortness of breath. metoprolol succinate ER (TOPROL XL) 25 mg 24 hr tablet Take 1 tablet by mouth daily at bedtime. FOR blood pressure (Patient not taking: Reported on 08/23/2021 ) fluticasone (FLONASE) 50 mcg/actuation nasal spray Use 2 Sprays in each nostril once daily. Rinse mouth after use. (Patient not taking: Reported on 08/23/2021 ) lactobacillus rhamnosus (CULTURELLE) 15 billion cell capsule Take 1 capsule by mouth once daily. albuterol HFA (PROVENTIL HFA, VENTOLIN HFA) 90 mcg/actuation inhaler Inhale 2 Puffs as instructed every 4 hours as needed for wheezing/shortness of breath. rOPINIRole (REQUIP) 4 mg tablet Take 1 tablet by mouth daily at bedtime. hydrocortisone (ANUSOL-HC) 25 mg suppository 1 Suppository by RECTAL route twice daily as needed (hemorrhoids/rectal pain). (Patient not taking: Reported on 08/23/2021 ) diclofenac (VOLTAREN) 1 % topical gel Apply 2 g to affected area four times daily. uses on foot and left arm cholestyramine (QUESTRAN) 4 gram packet Take 1 Packet by mouth three times daily with meals. (Patient not taking: Reported on 03/18/2021 ) dicyclomine (BENTYL) 10 mg capsule Take 1 capsule by mouth four times daily as needed. Nebulizers 1 Each as directed. Dx: wheezing, recurrent acute bronchitis, Nebulizer Accessories misc 1 Each as directed. Dx: wheezing, recurrent acute bronchitis, Tubing and mask for nebulizer No current facility-administered medications on file prior to visit. Social History Social History Tobacco Use Smoking status: Never Smokeless tobacco: Never Vaping Use Vaping Use: Never used Substance Use Topics Alcohol use: Yes Comment: social Drug use: No REVIEW OF SYSTEMS: as above Reviewed relevant PMHx, PSHx, Social Hx, current medications and allergies. Review of Symptoms REVIEW OF SYSTEMS See HPI. EXAM: BP 132/78 Pulse 89 Temp 36.8 C (98.3 F) Resp 16 Wt 109.8 kg (242 lb) LMP 07/11/2012 SpO2 99% BMI 44.26 kg/m General Appearance: Well appearing, alert, in no acute distress, well-hydrated, well nourished.. Skin: Skin color, texture, turgor normal, no suspicious rashes or lesions. Head: Normocephalic, no masses, lesions, tenderness or abnormalities. Eyes: Anicteric sclera. Pupils are equally round and reactive to light. Extraocular movements are intact. . Nose/Sinuses: Nares normal, septum midline, mucosa normal, no drainage or sinus tenderness. Oropharynx: Lips, mucosa, and tongue normal, teeth and gums normal, oropharynx normal. Neck: Supple, no adenopathy; thyroid symmetric, normal size, no bruits. Back:no pain to palpation of vertebrae, good flexion and extension, good range of motion, no muscle tenderness, reflexes are 2+ and symmetric, motor and sensory appear to be normal, negative SLR test, no evidence of scoliosis Lungs: Lungs clear to auscultation. No wheezing, rhonchi, rales.. Heart: RRR without murmur, gallop, or rubs. No ectopy. Lymph Nodes: No cervical lymphadenopathy, No supraclavicular lymphadenopathy, No axillary lymphadenopathy., and No inguinal lymphadenopathy.. Health Maintenance List COVID-19 VACCINE(1) Never done PNEUMOCOCCAL(1 - PCV) Never done HEPATITIS B(3 of 3 - 3-dose series) due on 08/23/2012 INFLUENZA(1) due on 11/10/2021 MAMMOGRAM due on 03/23/2022 ANNUAL PCP TEAM CHRONIC DISEASE VISIT due on 11/09/2022 BP CONTROLLED (<130/80) due on 11/09/2022 DIABETES SCREEN due on 07/08/2024 LIPID SCREEN due on 07/29/2026 DTAP,TDAP,TD(3 - Td or Tdap) due on 01/25/2027 COLORECTAL CANCER SCREENING due on 11/24/2027 SPIROMETRY Completed HEPATITIS C SCREENING Completed HIV SCREENING Completed SHINGRIX VACCINE Completed PAP TESTING Discontinued HPV TESTING Discontinued ASSESSMENT/PLAN: 1. Acute cough - ICD9: 786.2, ICD10: R05.1 (primary diagnosis) Chest x-ray to rule out pneumonia. Robitussin AC cough syrup EKG to rule out cardiac concerns. Albuterol nebulizer prn. Discontinue prednisone. Blood work, rule out blood clot with D-dimer. - XR CHEST 2V FRONTAL/LAT - CODEINE 10 MG-GUAIFENESIN 100 MG/5 ML ORAL LIQUID - ALBUTEROL SULFATE 2.5 MG/3 ML (0.083 %) SOLUTION FOR NEBULIZATION - ECG COMPLETE - COMP METABOLIC PANEL - CBC + DIFF - D-DIMER 2. Pleuritic pain - ICD9: 786.52, ICD10: R07.81 Atypical chest pain, symptoms are not consistent with cardiac ischemia due to nonexertional nature of symptom and pleuritic nature of pain - Electrocardiogram: An ECG today showed normal sinus rhythm at 77 BPM, - Chest X-ray today. - Oxygen saturation 99% on RA - ALBUTEROL SULFATE 2.5 MG/3 ML (0.083 %) SOLUTION FOR NEBULIZATION - ECG COMPLETE - D-DIMER 3. Vaginal yeast infection - ICD9: 112.1, ICD10: B37.3 Take 1 tablet today. If no relief in 3 days, take additional tablet. - FLUCONAZOLE 150 MG TABLET RTO if symptoms worsen or do not improve. Prescription instructions reviewed with patient as applicable. Potential red flag symptoms discussed with the patient. Reviewed appropriate action plan to take if red flag symptoms occur. Patient agreeable to treatment plan. Silva Sweeney APRN.CNP [address] [place] [address] documented in this encounter [facility] 12-05-2021 Miscellaneous Notes Noted, thank you. Sánchez Pelletier APRN.EVALUATION MANAGER Pt calls and states the following: COUGH ONSET: 11-30-21 pt started with sinus infection, cough SEVERITY: deep cough has made he chest hurt SPUTUM: Sputum yellow in color HEMOPTYSIS: no DIFFICULTY BREATHING: no FEVER: no CARDIAC HISTORY: aortic aneurysm LUNG HISTORY: asthma PE RISK FACTORS: surgery on nose approx 3 month ago OTHER SYMPTOMS: itching, runny nose, drainage down throat,wheezing chest hurts because of coughing Pt states went to [facility] at [facility] on 11-30-21 dx with sinus infection. Pt was given Amoxicillin. Pt went back again 12/04/21 for cough and felt like she was getting worse. She was given Prednisone. Took Yesterday and starting itching but no rash. Then started with vaginal itching, eyes itch (no rash). Yesterday felt like her throat was closing but that has left. She has not taken Prednisone today. Pt lost her voice on Sunday. Pt scheduled for apt in office 11 am. Sanam Landers LPN documented in this encounter [facility] 11-09-2021 History of Present illness Narrative CC: Ning Ann is a 51 year old female who presents to the office for follow up HPI: Seen in office on 03/18/21, at that time: Restless legs, taking requip 4 mg a day, states it feels like it isn't working well, the restlessness is all over my body now. Hasn't had recent labs completed. Is taking low dose magnesium over the counter supplement 20-30 mg a day only. Blood in stool, bring red, sometimes dark stools. Hx of hemorrhoids. Also having nausea, gassiness, abdominal bloating symptoms. No known hx of food intoleratnces, no vomiting. No weight loss. Has had some sweats. Hx of colon polyps, last scope colon 11/2017. Sweats, appetite difficult to control. Obesity, frustrated with inability to lose any weight. Wanting to get weight loss surgery, try weight loss medication. Unsure what her insurance will cover. Left hip pain, lateral, sometimes also with low back pain and radiating into posterior thigh. No known injuries. Does admit that she favors putting more weight on left leg due to her right foot pain and issues. No falls. No swelling, no skin changes. No routine use of ice or heat or NSAIDs. At follow up on 07/08/21 She is struggling with a lot of fatigue symptoms, difficulty falling asleep and staying asleep at night. Sometimes laying awake in the middle of the night for >1 hour and sometimes not able to fall back asleep. This is causing her a lot of fatigue during the daytime. Has had iron deficiency and vitamin D and B12 deficiency in the past. Unsure what else could be causing her symptoms. Has been more emotional recently as well. Denies any SI or HI Currently Mood, recently dose of effexor was increased to 75 mg a day. Doesn't feel that she is tolerating this. [place] better at 37.5 mg dose daily. Asking to go back down on dose. No SI or HI. Abdominal pain, distension, upper discomfort. Has been seen by Gastroenterology recently and found to have abnormal pancreatic elastase levels. Diagnosed with pancreatic insufficiency and started on CREON. Is scheduled to have EGD and colonoscopy. Still struggling with bloating and distension and intermittent loose stools and intermittent constipation. No blood in stool. Feels full quickly with eating, sometimes feels nausea and need to vomit after eating and a burning feeling in her stomach. Urinary urgency, minimal. Mostly resolved but wondering if could have UTI Muscle spasm of mid back, no fevers of chills. Started today, no known injury or cause. No history of kidney stones PAST MEDICAL HISTORY Diagnosis Date Abdominal pain 02/15/2016 Abdominal pain, epigastric Anxiety state, unspecified Aortic aneurysm (HCC) ascending thoracic Asthma Calcaneal spur 05/24/2011 Carpal tunnel syndrome, right 05/2013 moderate Colon polyps Depressive disorder, not elsewhere classified Diaphragmatic hernia without mention of obstruction or gangrene DVT (deep venous thrombosis) (HCC) post foot surgery, x 2 interval Endometriosis ? HX not confirmed Fibromyalgia muscle pain GERD (gastroesophageal reflux disease) Hayfever 10/04/2010 HSV (herpes simplex virus) infection Hypercholesteremia Hypertension 01/2017 Impaired fasting glucose 08/2013 5.7% A1C Mild intermittent asthma without complication 10/27/2019 NNEKA (obstructive sleep apnea) 10/27/2019 Patellofemoral disorder 03/09/2009 PONV (postoperative nausea and vomiting) 03/17/2015 PTSD (post-traumatic stress disorder) per counseling center rheumatoid arthritis Right carpal tunnel syndrome 06/30/2013 Right hand paresthesia 04/28/2013 Seizures (HCC) Snoring Temporomandibular joint disorders, unspecified Toenail deformity 04/28/2013 Trigger middle finger of right hand 12/15/2014 Trigger ring finger of right hand 12/15/2014 Vitamin D deficiency 03/2013 PAST SURGICAL HISTORY Procedure Laterality Date CARPAL TUNNEL 07/2013 right, Dr. Draper DELIVERY ONLY 1990 , low cervical COLONOSCOPY 08/11/14 normal, repeat in 5 years COLONOSCOPY FLX DX W/COLLJ SPEC WHEN PFRMD 06/24/04 Colonoscopy/Dr. Cash COLONOSCOPY FLX DX W/COLLJ SPEC WHEN PFRMD 11/23/2017 Colonoscopy COLONOSCOPY W/BIOPSY SINGLE/MULTIPLE 05/04/10 EGD EGD 08/11/14 mild chronic gastritis EGD TRANSORAL BIOPSY SINGLE/MULTIPLE 05/04/10 ESOPHAGOGASTRODUODENOSCOPY TRANSORAL DIAGNOSTIC 11/23/2017 EGD ESOPHAGOGASTRODUODENOSCOPY TRANSORAL DIAGNOSTIC 05/01/2019 EGD INCISE FINGER TENDON SHEATH Right 03/23/2015 Right middle trigger finger release LAPAROSCOPIC TUBAL LIGATION/RING/CLIP 2012 alessandro elliott vesicouterine adhesions LAPAROSCOPY DIAGNOSTIC 2015 extensive KEVYN, severe LAPS SURG CHOLECYSTECTOMY W/CHOLANGIOGRAPHY 05/02/06 LAPS W/VAG HYSTERECT 250 GM/&RMVL TUBE&/OVARIES 2013 [facility] bilateral salpingectomy, scar tissue LIDOCAINE IV treatments-Mohit Duran PAST SURGICAL HISTORY OF 01/13/06 Bilateral Breast Reduction PAST SURGICAL HISTORY OF 06/14/2011 left foot for plantar fasciitis S CATH ABLATION THERMACHOICE 2012 uterine ablation Current Outpatient Medications Medication Sig venlafaxine ER (EFFEXOR XR) 37.5 mg 24 hr capsule Take 1 capsule by mouth once daily. cyclobenzaprine (FLEXERIL) 10 mg tablet Take 1 tablet by mouth three times daily as needed for muscle spasm. triamcinolone acetonide (NASACORT) 55 mcg nasal inhaler Use 2 Sprays in the nose once daily. fluticasone (FLOVENT HFA) 110 mcg/actuation inhaler Inhale 1 Puff as instructed twice daily. Rinse mouth after using. traZODone (DESYREL) 50 mg tablet Take 1-2 tablets by mouth daily at bedtime. For insomnia, perimenopause (Patient not taking: Reported on 08/23/2021 ) cetirizine (ZYRTEC) 10 mg tablet Take 1 tablet by mouth once daily. cholecalciferol (VITAMIN D3) 50 mcg (2,000 unit) tablet Take 1 tablet by mouth once daily. cyanocobalamin (VITAMIN B-12) 1,000 mcg tab Take 1 tablet by mouth once daily. DULoxetine (CYMBALTA) 20 mg capsule Take 1 capsule every day x 2 weeks then 1 capsule every other day x 2 weeks then stop medication (tapering off) (Patient not taking: Reported on 08/23/2021 ) ferrous sulfate (SLOW FE) 140 mg (45 mg iron) TbER Take 1 tablet by mouth twice daily with meals. Magnesium Oxide 500 mg tab Take 1 tablet by mouth once daily. valACYclovir (VALTREX) 500 mg tablet Take 1 tablet by mouth twice daily. omeprazole (PRILOSEC) 40 mg capsule Take 1 capsule by mouth once daily. ipratropium-albuterol (DUONEB) 0.5 mg-3 mg(2.5 mg base)/3 mL nebu Inhale 3 mL as instructed every 4 hours as needed for wheezing/shortness of breath. metoprolol succinate ER (TOPROL XL) 25 mg 24 hr tablet Take 1 tablet by mouth daily at bedtime. FOR blood pressure (Patient not taking: Reported on 08/23/2021 ) fluticasone (FLONASE) 50 mcg/actuation nasal spray Use 2 Sprays in each nostril once daily. Rinse mouth after use. (Patient not taking: Reported on 08/23/2021 ) lactobacillus rhamnosus (CULTURELLE) 15 billion cell capsule Take 1 capsule by mouth once daily. albuterol HFA (PROVENTIL HFA, VENTOLIN HFA) 90 mcg/actuation inhaler Inhale 2 Puffs as instructed every 4 hours as needed for wheezing/shortness of breath. rOPINIRole (REQUIP) 4 mg tablet Take 1 tablet by mouth daily at bedtime. hydrocortisone (ANUSOL-HC) 25 mg suppository 1 Suppository by RECTAL route twice daily as needed (hemorrhoids/rectal pain). (Patient not taking: Reported on 08/23/2021 ) diclofenac (VOLTAREN) 1 % topical gel Apply 2 g to affected area four times daily. uses on foot and left arm cholestyramine (QUESTRAN) 4 gram packet Take 1 Packet by mouth three times daily with meals. (Patient not taking: Reported on 03/18/2021 ) dicyclomine (BENTYL) 10 mg capsule Take 1 capsule by mouth four times daily as needed. Nebulizers 1 Each as directed. Dx: wheezing, recurrent acute bronchitis, Nebulizer Accessories misc 1 Each as directed. Dx: wheezing, recurrent acute bronchitis, Tubing and mask for nebulizer No current facility-administered medications for this visit. ALLERGIES Allergen Reactions Miconazole Itching Milnacipran Mental Status Change, Other: See Comments [place] weird. Rivaroxaban Other: See Comments, GI Upset Taste of blood in mouth and muscle aches Warfarin Other: See Comments Morphine Shortness of Breath Atorvastatin Other: See Comments Leg aching and pain Coumadin [Warfarin * Other: See Comments headache,arm pain and back pain Dilaudid [Hydromorp* Other: See Comments Pain Hydromorphone Other: See Comments Lyrica [Pregabalin] Rash, Cough, Itching Social History Tobacco Use Smoking status: Never Smokeless tobacco: Never Vaping Use Vaping Use: Never used Substance Use Topics Alcohol use: Yes Comment: social Drug use: No ROS: See HPI PE: BP 130/80 Pulse 80 Temp (Src) 97.9 (Left Tympanic) Resp 20 Wt 245 lb (111.1kg) LMP 07/11/2012 Gen: A&OX3, NAD, non-toxic appearing HEENT: PERRLA, EOMs intact b/l, nares without drainage, pharynx without erythema, exudate, lesions, or drainage. Uvula midline. Neck: No LAD, no thyromegaly, no meningismus. CV: RRR, no murmur Lungs: CTA b/l, no wheezing Skin: No rashes, lesions, or wounds on exposed skin. Abd: upper abdominal distension with mild TTP, no obvious masses, normal BS No edema, normal pulses Obese ASSESSMENT/PLAN: 1. Dysuria - ICD9: 788.1, ICD10: R30.0 (primary diagnosis) acute - Patient education for prevention given UA is negative for any signs of blood or infection - UA DIP, URINE (POC) 2. Muscle spasm of back - ICD9: 724.8, ICD10: M62.830 - rx as below, prn use, use of heating pad prn. - CYCLOBENZAPRINE 10 MG TABLET 3. Fatigue, unspecified type - ICD9: 780.79, ICD10: R53.83 - chronic, decrease dose of Effexor due to SE with medication, f/u in 1-2 months in office. 4. Obesity, Class III, BMI 40-49.9 (morbid obesity) (HCC) - ICD9: 278.01, ICD10: E66.01 Stable - Behavioral intervention and - Eat well program 5. Perimenopausal disorder - ICD9: 627.9, ICD10: N95.9 - see above, will decrease effexor dosing as above due to SE 6. Generalized abdominal pain - ICD9: 789.07, ICD10: R10.84 F/u with Product Distribution Specialist, has pancreatic insufficiency, also concerns for potential other causes of symptoms Tang Olguin DO Return if no improvement. Follow up with Tang Olguin DO. To ER if develops chest pain, shortness of breath, Discussed risks, benefits, alternatives, and potential side effects of medications. Patient/Guardian expressed understanding and agreed with the plan. See patient instructions. Tang Olguin DO [address] [place] [address] documented in this encounter [facility] 11-09-2021 Instructions Tang Olguin DO - 11/09/2021 4:43 PM EDT Eosinophilic esophagitis evaluation? documented in this encounter [facility] 08-23-2021 History of Present illness Narrative CC: Patient presents with: Chest Congestion: cough, bodyaches and sinus pressure x 3 days, boyfriend + covid on HPI: Ning Ann is a 51 year old female who presents to the office with complaint of head congestion and cough, productive for a few days. Symptoms are worsening Associated symptoms includes body aches and wheezing. Denies fever, nausea, vomiting and diarrhea. Treatments tried include nothing so far. with no relief of symptoms. Sick contacts: yes. History of asthma, frequent episodes of bronchitis, chronic bronchitis, bronchiectasis or COPD: yes ashtma Smoker: No Seasonal/environmental allergies: No The ROS is otherwise negative. The patient's pmh, medications, allergies, and past visits are reviewed. PHYSICAL EXAM: BP 132/74 Pulse 114 Temp 37.3 C (99.2 F) Resp 18 Wt 109.3 kg (241 lb) LMP 07/11/2012 SpO2 96% BMI 44.08 kg/m General appearance: alert, cooperative, pleasant, in no acute distress Head: Normocephalic Eyes: EOM's intact, conjunctiva pink and moist, no icterus, sclera white, non-injected Heart: Negative. RRR without obvious murmur, gallop, or rubs. No ectopy. Lungs: mild wheezing throughout bilaterally. PAST MEDICAL HISTORY Diagnosis Date Abdominal pain 02/15/2016 Abdominal pain, epigastric Anxiety state, unspecified Aortic aneurysm (HCC) ascending thoracic Asthma Calcaneal spur 05/24/2011 Carpal tunnel syndrome, right 05/2013 moderate Colon polyps Depressive disorder, not elsewhere classified Diaphragmatic hernia without mention of obstruction or gangrene DVT (deep venous thrombosis) (HCC) post foot surgery, x 2 interval Endometriosis ? HX not confirmed Fibromyalgia muscle pain GERD (gastroesophageal reflux disease) Hayfever 10/04/2010 HSV (herpes simplex virus) infection Hypercholesteremia Hypertension 01/2017 Impaired fasting glucose 08/2013 5.7% A1C Mild intermittent asthma without complication 10/27/2019 NNEKA (obstructive sleep apnea) 10/27/2019 Patellofemoral disorder 03/09/2009 PONV (postoperative nausea and vomiting) 03/17/2015 PTSD (post-traumatic stress disorder) per counseling center rheumatoid arthritis Right carpal tunnel syndrome 06/30/2013 Right hand paresthesia 04/28/2013 Seizures (HCC) Snoring Temporomandibular joint disorders, unspecified Toenail deformity 04/28/2013 Trigger middle finger of right hand 12/15/2014 Trigger ring finger of right hand 12/15/2014 Vitamin D deficiency 03/2013 PAST SURGICAL HISTORY Procedure Laterality Date CARPAL TUNNEL 07/2013 right, Dr. Draper DELIVERY ONLY 1990 , low cervical COLONOSCOPY 08/11/14 normal, repeat in 5 years COLONOSCOPY FLX DX W/COLLJ SPEC WHEN PFRMD 06/24/04 Colonoscopy/Dr. Cash COLONOSCOPY FLX DX W/COLLJ SPEC WHEN PFRMD 11/23/2017 Colonoscopy COLONOSCOPY W/BIOPSY SINGLE/MULTIPLE 05/04/10 EGD EGD 08/11/14 mild chronic gastritis EGD TRANSORAL BIOPSY SINGLE/MULTIPLE 05/04/10 ESOPHAGOGASTRODUODENOSCOPY TRANSORAL DIAGNOSTIC 11/23/2017 EGD ESOPHAGOGASTRODUODENOSCOPY TRANSORAL DIAGNOSTIC 05/01/2019 EGD INCISE FINGER TENDON SHEATH Right 03/23/2015 Right middle trigger finger release LAPAROSCOPIC TUBAL LIGATION/RING/CLIP 2012 alessandro elliott vesicouterine adhesions LAPAROSCOPY DIAGNOSTIC 2015 extensive KEVYN, severe LAPS SURG CHOLECYSTECTOMY W/CHOLANGIOGRAPHY 05/02/06 LAPS W/VAG HYSTERECT 250 GM/&RMVL TUBE&/OVARIES 2013 [facility] bilateral salpingectomy, scar tissue LIDOCAINE IV treatments-Mohit Duran PAST SURGICAL HISTORY OF 01/13/06 Bilateral Breast Reduction PAST SURGICAL HISTORY OF 06/14/2011 left foot for plantar fasciitis S CATH ABLATION THERMACHOICE 2012 uterine ablation ALLERGIES Miconazole, Milnacipran, Rivaroxaban, Warfarin, Morphine, Atorvastatin, Coumadin [Warfarin Sodium], Dilaudid [Hydromorphone (Bulk)], Hydromorphone, and Lyrica [Pregabalin] MEDICATIONS cetirizine (ZYRTEC) 10 mg tablet Take 1 tablet by mouth once daily. cholecalciferol (VITAMIN D3) 50 mcg (2,000 unit) tablet Take 1 tablet by mouth once daily. cyanocobalamin (VITAMIN B-12) 1,000 mcg tab Take 1 tablet by mouth once daily. ferrous sulfate (SLOW FE) 140 mg (45 mg iron) TbER Take 1 tablet by mouth twice daily with meals. Magnesium Oxide 500 mg tab Take 1 tablet by mouth once daily. valACYclovir (VALTREX) 500 mg tablet Take 1 tablet by mouth twice daily. omeprazole (PRILOSEC) 40 mg capsule Take 1 capsule by mouth once daily. ipratropium-albuterol (DUONEB) 0.5 mg-3 mg(2.5 mg base)/3 mL nebu Inhale 3 mL as instructed every 4 hours as needed for wheezing/shortness of breath. lactobacillus rhamnosus (CULTURELLE) 15 billion cell capsule Take 1 capsule by mouth once daily. albuterol HFA (PROVENTIL HFA, VENTOLIN HFA) 90 mcg/actuation inhaler Inhale 2 Puffs as instructed every 4 hours as needed for wheezing/shortness of breath. rOPINIRole (REQUIP) 4 mg tablet Take 1 tablet by mouth daily at bedtime. triamcinolone acetonide (NASACORT) 55 mcg nasal inhaler Use 2 Sprays in the nose once daily. diclofenac (VOLTAREN) 1 % topical gel Apply 2 g to affected area four times daily. uses on foot and left arm dicyclomine (BENTYL) 10 mg capsule Take 1 capsule by mouth four times daily as needed. fluticasone (FLOVENT HFA) 110 mcg/actuation inhaler Inhale 1 Puff as instructed twice daily. Rinse mouth after using. Nebulizers 1 Each as directed. Dx: wheezing, recurrent acute bronchitis, Nebulizer Accessories misc 1 Each as directed. Dx: wheezing, recurrent acute bronchitis, Tubing and mask for nebulizer venlafaxine ER (EFFEXOR XR) 75 mg 24 hr capsule Take 75 mg by mouth once daily. predniSONE (DELTASONE) 20 mg tablet Take 2 tablets by mouth once daily for 5 days. traZODone (DESYREL) 50 mg tablet Take 1-2 tablets by mouth daily at bedtime. For insomnia, perimenopause DULoxetine (CYMBALTA) 20 mg capsule Take 1 capsule every day x 2 weeks then 1 capsule every other day x 2 weeks then stop medication (tapering off) metoprolol succinate ER (TOPROL XL) 25 mg 24 hr tablet Take 1 tablet by mouth daily at bedtime. FOR blood pressure fluticasone (FLONASE) 50 mcg/actuation nasal spray Use 2 Sprays in each nostril once daily. Rinse mouth after use. hydrocortisone (ANUSOL-HC) 25 mg suppository 1 Suppository by RECTAL route twice daily as needed (hemorrhoids/rectal pain). cholestyramine (QUESTRAN) 4 gram packet Take 1 Packet by mouth three times daily with meals. FAMILY HISTORY Problem Relation Age of Onset Hypertension Mother Lipids Mother Alcohol/Drug Mother Allergies Mother Alcohol/Drug Father Thyroid Sister other (fibromyalgia) Sister other (brain) Sister surgery brain too big for her skull (plate) Blindness Sister Emphysema Maternal Grandmother Emphysema Maternal Grandfather Heart Paternal Grandmother Alcohol/Drug Brother Social History Tobacco Use Smoking status: Never Smoker Smokeless tobacco: Never Used Vaping Use Vaping Use: Never used Substance Use Topics Alcohol use: Yes Comment: social Drug use: No ASSESSMENT/PLAN: 1. Close exposure to COVID-19 virus - ICD9: V01.79, ICD10: Z20.822 - COVID WITH FLUA+B, ROUTINE prednisone 40mg daily for 5 days. Prescription instructions reviewed with patient as applicable. Potential red flag symptoms discussed with the patient. Reviewed appropriate action plan to take if red flag symptoms occur. Patient agreeable to treatment plan. Deysi Mcfarland APRN.SERA documented in this encounter [facility] 07-21-2021 Miscellaneous Notes Pt seen in . Sanam Landers LPN 1st attempt - LVM for patient to call back and set up office visit with pcp Please contact the patient to schedule an appointment. Appointment specifications include: WHY does the patient need to be seen? Office visit for red/itchiness WHO should the patient schedule the appointment with? Physician or [facility] is acceptable WHAT specific type of appointment is needed? Office Visit WHEN should the patient be seen? First available appointment WHERE should the patient be seen? In Office Please assist in aking pt appointment to come in and be seen. , Agree with need for appt as below Tang Olguin DO Pt calls and states the following: she had a shingles vaccine at [facility] 07-13-21. States feeling sluggish for the past day or so and feels warm has not taken her temperature. APPEARANCE OF RASH: red only not seeing anything raised LOCATION: slight rash on left arm ONSET: itching last night 07-19-21 and getting worse ITCHING: on back towards side severe and around face, PAIN: where itching, it is getting painful. Scale 4 or 5 OTHER SYMPTOMS: face is red around area where she is itching. The itching is close to the eyes and round out side of face. Pt advised to come into [facility] and gave hours. She is not sure if she got into something or if this is from the shingles vaccine. Sanam Landers LPN documented in this encounter [facility] 07-20-2021 History of Present illness Narrative Images from the original note were not included. Subjective HPI HPI Ning Ann is a 51 year old female who presents today for CC of itching all over. This started 1 day ago. Has tried nothing for relief. Symptoms are worsened by nothign. Risk factors was doing garden work for past few days. Denies fever, cp/sob. Multiple cat scratches on right hand, no redness, drainage, fever, lymph nodes. .Patient presents with: Rash: on arm, back, and face started last night PAST MEDICAL HISTORY Diagnosis Date Abdominal pain 02/15/2016 Abdominal pain, epigastric Anxiety state, unspecified Aortic aneurysm (HCC) ascending thoracic Asthma Calcaneal spur 05/24/2011 Carpal tunnel syndrome, right 05/2013 moderate Colon polyps Depressive disorder, not elsewhere classified Diaphragmatic hernia without mention of obstruction or gangrene DVT (deep venous thrombosis) (HCC) post foot surgery, x 2 interval Endometriosis ? HX not confirmed Fibromyalgia muscle pain GERD (gastroesophageal reflux disease) Hayfever 10/04/2010 HSV (herpes simplex virus) infection Hypercholesteremia Hypertension 01/2017 Impaired fasting glucose 08/2013 5.7% A1C Mild intermittent asthma without complication 10/27/2019 NNEKA (obstructive sleep apnea) 10/27/2019 Patellofemoral disorder 03/09/2009 PONV (postoperative nausea and vomiting) 03/17/2015 PTSD (post-traumatic stress disorder) per counseling center rheumatoid arthritis Right carpal tunnel syndrome 06/30/2013 Right hand paresthesia 04/28/2013 Seizures (HCC) Snoring Temporomandibular joint disorders, unspecified Toenail deformity 04/28/2013 Trigger middle finger of right hand 12/15/2014 Trigger ring finger of right hand 12/15/2014 Vitamin D deficiency 03/2013 PAST SURGICAL HISTORY Procedure Laterality Date CARPAL TUNNEL 07/2013 right, Dr. Draper DELIVERY ONLY 1990 , low cervical COLONOSCOPY 08/11/14 normal, repeat in 5 years COLONOSCOPY FLX DX W/COLLJ SPEC WHEN PFRMD 06/24/04 Colonoscopy/Dr. Cash COLONOSCOPY FLX DX W/COLLJ SPEC WHEN PFRMD 11/23/2017 Colonoscopy COLONOSCOPY W/BIOPSY SINGLE/MULTIPLE 05/04/10 EGD EGD 08/11/14 mild chronic gastritis EGD TRANSORAL BIOPSY SINGLE/MULTIPLE 05/04/10 ESOPHAGOGASTRODUODENOSCOPY TRANSORAL DIAGNOSTIC 11/23/2017 EGD ESOPHAGOGASTRODUODENOSCOPY TRANSORAL DIAGNOSTIC 05/01/2019 EGD INCISE FINGER TENDON SHEATH Right 03/23/2015 Right middle trigger finger release LAPAROSCOPIC TUBAL LIGATION/RING/CLIP 2012 alessandro elliott vesicouterine adhesions LAPAROSCOPY DIAGNOSTIC 2016 extensive KEVYN, severe LAPS SURG CHOLECYSTECTOMY W/CHOLANGIOGRAPHY 05/02/06 LAPS W/VAG HYSTERECT 250 GM/&RMVL TUBE&/OVARIES 2013 [facility] bilateral salpingectomy, scar tissue LIDOCAINE IV treatments-Mohit Duran PAST SURGICAL HISTORY OF 01/13/06 Bilateral Breast Reduction PAST SURGICAL HISTORY OF 06/14/2011 left foot for plantar fasciitis S CATH ABLATION THERMACHOICE 2013 uterine ablation ALLERGIES Miconazole, Milnacipran, Rivaroxaban, Warfarin, Morphine, Atorvastatin, Coumadin [Warfarin Sodium], Dilaudid [Hydromorphone (Bulk)], Hydromorphone, and Lyrica [Pregabalin] MEDICATIONS traZODone (DESYREL) 50 mg tablet Take 1-2 tablets by mouth daily at bedtime. For insomnia, perimenopause cetirizine (ZYRTEC) 10 mg tablet Take 1 tablet by mouth once daily. cholecalciferol (VITAMIN D3) 50 mcg (2,000 unit) tablet Take 1 tablet by mouth once daily. cyanocobalamin (VITAMIN B-12) 1,000 mcg tab Take 1 tablet by mouth once daily. ferrous sulfate (SLOW FE) 140 mg (45 mg iron) TbER Take 1 tablet by mouth twice daily with meals. Magnesium Oxide 500 mg tab Take 1 tablet by mouth once daily. valACYclovir (VALTREX) 500 mg tablet Take 1 tablet by mouth twice daily. omeprazole (PRILOSEC) 40 mg capsule Take 1 capsule by mouth once daily. ipratropium-albuterol (DUONEB) 0.5 mg-3 mg(2.5 mg base)/3 mL nebu Inhale 3 mL as instructed every 4 hours as needed for wheezing/shortness of breath. metoprolol succinate ER (TOPROL XL) 25 mg 24 hr tablet Take 1 tablet by mouth daily at bedtime. FOR blood pressure lactobacillus rhamnosus (CULTURELLE) 15 billion cell capsule Take 1 capsule by mouth once daily. albuterol HFA (PROVENTIL HFA, VENTOLIN HFA) 90 mcg/actuation inhaler Inhale 2 Puffs as instructed every 4 hours as needed for wheezing/shortness of breath. rOPINIRole (REQUIP) 4 mg tablet Take 1 tablet by mouth daily at bedtime. triamcinolone acetonide (NASACORT) 55 mcg nasal inhaler Use 2 Sprays in the nose once daily. diclofenac (VOLTAREN) 1 % topical gel Apply 2 g to affected area four times daily. uses on foot and left arm dicyclomine (BENTYL) 10 mg capsule Take 1 capsule by mouth four times daily as needed. fluticasone (FLOVENT HFA) 110 mcg/actuation inhaler Inhale 1 Puff as instructed twice daily. Rinse mouth after using. Nebulizers 1 Each as directed. Dx: wheezing, recurrent acute bronchitis, Nebulizer Accessories misc 1 Each as directed. Dx: wheezing, recurrent acute bronchitis, Tubing and mask for nebulizer predniSONE (DELTASONE) 20 mg tablet Take 2 tablets by mouth once daily for 5 days. triamcinolone acetonide (KENALOG) 0.1 % cream Apply 1 application to affected area three times daily for 10 days. Apply sparingly to area for rash/itching. DULoxetine (CYMBALTA) 20 mg capsule Take 1 capsule every day x 2 weeks then 1 capsule every other day x 2 weeks then stop medication (tapering off) fluticasone (FLONASE) 50 mcg/actuation nasal spray Use 2 Sprays in each nostril once daily. Rinse mouth after use. hydrocortisone (ANUSOL-HC) 25 mg suppository 1 Suppository by RECTAL route twice daily as needed (hemorrhoids/rectal pain). cholestyramine (QUESTRAN) 4 gram packet Take 1 Packet by mouth three times daily with meals. FAMILY HISTORY Problem Relation Age of Onset Hypertension Mother Lipids Mother Alcohol/Drug Mother Allergies Mother Alcohol/Drug Father Thyroid Sister other (fibromyalgia) Sister other (brain) Sister surgery brain too big for her skull (plate) Blindness Sister Emphysema Maternal Grandmother Emphysema Maternal Grandfather Heart Paternal Grandmother Alcohol/Drug Brother Social History Tobacco Use Smoking status: Never Smoker Smokeless tobacco: Never Used Vaping Use Vaping Use: Never used Substance Use Topics Alcohol use: Yes Comment: social Drug use: No ROS Objective Blood pressure 112/78, pulse 77, temperature 36.5 C (97.7 F), resp. rate 20, weight 110.6 kg (243 lb 12.8 oz), last menstrual period 07/11/2012, SpO2 98 %. Physical Exam Constitutional: General: She is not in acute distress. Appearance: She is not toxic-appearing or diaphoretic. HENT: Head: Normocephalic and atraumatic. Pulmonary: Effort: Pulmonary effort is normal. No accessory muscle usage or respiratory distress. Skin: Neurological: Mental Status: She is alert and oriented to person, place, and time. ASSESSMENT/PLAN: 1. Itching - ICD9: 698.9, ICD10: L29.9 No rash present. Will order steroids F/u for continued/worsening s/s. - PREDNISONE 20 MG TABLET - TRIAMCINOLONE ACETONIDE 0.1 % TOPICAL CREAM Agrees to plan Parveen Sen APRN.EVALUATION MANAGER documented in this encounter [facility] 07-09-2021 Miscellaneous Notes Spoke with pt and information listed below given. Pt verbalizes understanding. FYI: Pt states she is already taking an iron supplement (1) per day. Pt will increase to (2) per day. Sanam Landers LPN Please inform patient that her labs show that her iron levels are low normal. Needs to be taking an iron supplemnt such as ferrous sulfate twice a day with meals. Her vitamin D is also borderline range at 37. Needs to be taking an extra 1000 international unit(s) A day of vitamin D3 supplement from what she is already taking currently. Tang Olguin DO documented in this encounter [facility] 07-08-2021 History of Present illness Narrative CC: Ning Ann is a 51 year old female who presents to the office for follow up HPI: Seen in office on 03/18/21, at that time: Restless legs, taking requip 4 mg a day, states it feels like it isn't working well, the restlessness is all over my body now. Hasn't had recent labs completed. Is taking low dose magnesium over the counter supplement 20-30 mg a day only. Blood in stool, bring red, sometimes dark stools. Hx of hemorrhoids. Also having nausea, gassiness, abdominal bloating symptoms. No known hx of food intoleratnces, no vomiting. No weight loss. Has had some sweats. Hx of colon polyps, last scope colon 11/2017. Sweats, appetite difficult to control. Obesity, frustrated with inability to lose any weight. Wanting to get weight loss surgery, try weight loss medication. Unsure what her insurance will cover. Left hip pain, lateral, sometimes also with low back pain and radiating into posterior thigh. No known injuries. Does admit that she favors putting more weight on left leg due to her right foot pain and issues. No falls. No swelling, no skin changes. No routine use of ice or heat or NSAIDs. Currently She is struggling with a lot of fatigue symptoms, difficulty falling asleep and staying asleep at night. Sometimes laying awake in the middle of the night for >1 hour and sometimes not able to fall back asleep. This is causing her a lot of fatigue during the daytime. Has had iron deficiency and vitamin D and B12 deficiency in the past. Unsure what else could be causing her symptoms. Has been more emotional recently as well. Denies any SI or HI PAST MEDICAL HISTORY Diagnosis Date Abdominal pain 02/15/2016 Abdominal pain, epigastric Anxiety state, unspecified Aortic aneurysm (HCC) ascending thoracic Asthma Calcaneal spur 05/24/2011 Carpal tunnel syndrome, right 05/2013 moderate Colon polyps Depressive disorder, not elsewhere classified Diaphragmatic hernia without mention of obstruction or gangrene DVT (deep venous thrombosis) (HCC) post foot surgery, x 2 interval Endometriosis ? HX not confirmed Fibromyalgia muscle pain GERD (gastroesophageal reflux disease) Hayfever 10/04/2010 HSV (herpes simplex virus) infection Hypercholesteremia Hypertension 01/2017 Impaired fasting glucose 08/2013 5.7% A1C Mild intermittent asthma without complication 10/27/2019 NNEKA (obstructive sleep apnea) 10/27/2019 Patellofemoral disorder 03/09/2009 PONV (postoperative nausea and vomiting) 03/17/2015 PTSD (post-traumatic stress disorder) per counseling center rheumatoid arthritis Right carpal tunnel syndrome 06/30/2013 Right hand paresthesia 04/28/2013 Seizures (HCC) Snoring Temporomandibular joint disorders, unspecified Toenail deformity 04/28/2013 Trigger middle finger of right hand 12/15/2014 Trigger ring finger of right hand 12/15/2014 Vitamin D deficiency 03/2013 PAST SURGICAL HISTORY Procedure Laterality Date CARPAL TUNNEL 07/2013 right, Dr. Draper DELIVERY ONLY 1990 , low cervical COLONOSCOPY 08/11/14 normal, repeat in 5 years COLONOSCOPY FLX DX W/COLLJ SPEC WHEN PFRMD 06/24/04 Colonoscopy/Dr. Cash COLONOSCOPY FLX DX W/COLLJ SPEC WHEN PFRMD 11/23/2017 Colonoscopy COLONOSCOPY W/BIOPSY SINGLE/MULTIPLE 05/04/10 EGD EGD 08/11/14 mild chronic gastritis EGD TRANSORAL BIOPSY SINGLE/MULTIPLE 05/04/10 ESOPHAGOGASTRODUODENOSCOPY TRANSORAL DIAGNOSTIC 11/23/2017 EGD ESOPHAGOGASTRODUODENOSCOPY TRANSORAL DIAGNOSTIC 05/01/2019 EGD INCISE FINGER TENDON SHEATH Right 03/23/2015 Right middle trigger finger release LAPAROSCOPIC TUBAL LIGATION/RING/CLIP 2012 alessandro elliott vesicouterine adhesions LAPAROSCOPY DIAGNOSTIC 2015 extensive KEVYN, severe LAPS SURG CHOLECYSTECTOMY W/CHOLANGIOGRAPHY 05/02/06 LAPS W/VAG HYSTERECT 250 GM/&RMVL TUBE&/OVARIES 2013 [facility] bilateral salpingectomy, scar tissue LIDOCAINE IV treatments-Mohit Duran PAST SURGICAL HISTORY OF 01/13/06 Bilateral Breast Reduction PAST SURGICAL HISTORY OF 06/14/2011 left foot for plantar fasciitis S CATH ABLATION THERMACHOICE 2012 uterine ablation Current Outpatient Medications Medication Sig cetirizine (ZYRTEC) 10 mg tablet Take 1 tablet by mouth once daily. cholecalciferol (VITAMIN D3) 50 mcg (2,000 unit) tablet Take 1 tablet by mouth once daily. cyanocobalamin (VITAMIN B-12) 1,000 mcg tab Take 1 tablet by mouth once daily. ferrous sulfate (SLOW FE) 140 mg (45 mg iron) TbER Take 1 tablet by mouth twice daily with meals. Magnesium Oxide 500 mg tab Take 1 tablet by mouth once daily. valACYclovir (VALTREX) 500 mg tablet Take 1 tablet by mouth twice daily. omeprazole (PRILOSEC) 40 mg capsule Take 1 capsule by mouth once daily. ipratropium-albuterol (DUONEB) 0.5 mg-3 mg(2.5 mg base)/3 mL nebu Inhale 3 mL as instructed every 4 hours as needed for wheezing/shortness of breath. metoprolol succinate ER (TOPROL XL) 25 mg 24 hr tablet Take 1 tablet by mouth daily at bedtime. FOR blood pressure lactobacillus rhamnosus (CULTURELLE) 15 billion cell capsule Take 1 capsule by mouth once daily. albuterol HFA (PROVENTIL HFA, VENTOLIN HFA) 90 mcg/actuation inhaler Inhale 2 Puffs as instructed every 4 hours as needed for wheezing/shortness of breath. rOPINIRole (REQUIP) 4 mg tablet Take 1 tablet by mouth daily at bedtime. triamcinolone acetonide (NASACORT) 55 mcg nasal inhaler Use 2 Sprays in the nose once daily. diclofenac (VOLTAREN) 1 % topical gel Apply 2 g to affected area four times daily. uses on foot and left arm dicyclomine (BENTYL) 10 mg capsule Take 1 capsule by mouth four times daily as needed. fluticasone (FLOVENT HFA) 110 mcg/actuation inhaler Inhale 1 Puff as instructed twice daily. Rinse mouth after using. DULoxetine (CYMBALTA) 20 mg capsule Take 1 capsule every day x 2 weeks then 1 capsule every other day x 2 weeks then stop medication (tapering off) fluticasone (FLONASE) 50 mcg/actuation nasal spray Use 2 Sprays in each nostril once daily. Rinse mouth after use. hydrocortisone (ANUSOL-HC) 25 mg suppository 1 Suppository by RECTAL route twice daily as needed (hemorrhoids/rectal pain). dexAMETHasone sodium phosphate (DECADRON) 4 mg/mL injection 4 mg as directed. For topical use with iontophoresis pads for at home iontophoresis therapy Not being used for IV usage. (Patient not taking: Reported on 07/08/2021 ) cholestyramine (QUESTRAN) 4 gram packet Take 1 Packet by mouth three times daily with meals. (Patient not taking: Reported on 03/18/2021 ) Nebulizers 1 Each as directed. Dx: wheezing, recurrent acute bronchitis, Nebulizer Accessories misc 1 Each as directed. Dx: wheezing, recurrent acute bronchitis, Tubing and mask for nebulizer No current facility-administered medications for this visit. ALLERGIES Allergen Reactions Miconazole Itching Milnacipran Mental Status Change, Other: See Comments [place] weird. Rivaroxaban Other: See Comments, GI Upset Taste of blood in mouth and muscle aches Warfarin Other: See Comments Morphine Shortness of Breath Atorvastatin Other: See Comments Leg aching and pain Coumadin [Warfarin * Other: See Comments headache,arm pain and back pain Dilaudid [Hydromorp* Other: See Comments Pain Hydromorphone Other: See Comments Lyrica [Pregabalin] Rash, Cough, Itching Social History Tobacco Use Smoking status: Never Smoker Smokeless tobacco: Never Used Vaping Use Vaping Use: Never used Substance Use Topics Alcohol use: Yes Comment: social Drug use: No ROS: See HPI PE: BP 110/78 Pulse 100 Temp (Src) 97 (Tympanic) Resp 20 Wt 244 lb (110.7kg) LMP 07/11/2012 Gen: A&OX3, NAD, non-toxic appearing HEENT: PERRLA, EOMs intact b/l, nares without drainage, pharynx without erythema, exudate, lesions, or drainage. Uvula midline. Neck: No LAD, no thyromegaly, no meningismus. CV: RRR, no murmur Lungs: CTA b/l, no wheezing Skin: No rashes, lesions, or wounds on exposed skin. Tearful in office today, no distress ASSESSMENT/PLAN: 1. Fatigue, unspecified type - ICD9: 780.79, ICD10: R53.83 (primary diagnosis) - labs as ordered, unsure cause of her symptoms, start on trazodone to help with her insomnia symptoms, suspect partially related to perimenopause and insomnia. - CBC + DIFF - IRON + TIBC - FERRITIN BLD - COMP METABOLIC PANEL - VITAMIN D 25 HYDROXY - VITAMIN B12 BLOOD 2. Iron deficiency - ICD9: 280.9, ICD10: E61.1 - labs as ordered, unsure cause of her symptoms, start on trazodone to help with her insomnia symptoms, suspect partially related to perimenopause and insomnia. - CBC + DIFF - IRON + TIBC - FERRITIN BLD 3. Borderline abnormal thyroid function test - ICD9: 794.5, ICD10: R94.6 - labs as ordered, unsure cause of her symptoms, start on trazodone to help with her insomnia symptoms, suspect partially related to perimenopause and insomnia. - TSH BLD - T4 FREE/FREE THYROX - T3 FREE BLD 4. Perimenopausal disorder - ICD9: 627.9, ICD10: N95.9 - labs as ordered, unsure cause of her symptoms, start on trazodone to help with her insomnia symptoms, suspect partially related to perimenopause and insomnia. - FSH BLD - TRAZODONE 50 MG TABLET 5. Situational insomnia - ICD9: 307.41, ICD10: F51.09 - labs as ordered, unsure cause of her symptoms, start on trazodone to help with her insomnia symptoms, suspect partially related to perimenopause and insomnia. - TRAZODONE 50 MG TABLET Tang Olguin DO Return if no improvement. Follow up with Tang Olguin DO. To ER if develops chest pain, shortness of breath Discussed risks, benefits, alternatives, and potential side effects of medications. Patient/Guardian expressed understanding and agreed with the plan. See patient instructions. Tang Olguin DO [id number] [place] [address] documented in this encounter [facility] 03-18-2021 History of Present illness Narrative Radiology Service Progress Note PATIENT NAME: Ning Ann DATE OF SERVICE: March 18, 2021 TIME: 10:19 AM PATIENT IDENTITY VERIFICATION COMPLETED USING TWO (2) IDENTIFIERS: Name and Date of confirmed by patient verbally. FALL SCREENING: Has the patient had 2 falls in the last year or 1 fall with injury or currently using an Ambulatory Assistive Device (Walker, Cane, Wheelchair, Crutches, etc.)? No PATIENT GENDER DATA: Female. status: : No status: NO. PATIENT RELEVANT IMPLANT DATA REVIEWED: Not Applicable RADIOLOGY DEPARTMENT: General X-ray: Exam(s) Completed: Spine X-Ray(s): Lumbar AP / LAT / L5-S1 Pelvis X-Ray: Pelvis with Hip Bilateral PERIPHERAL IV DATA: Not applicable SIGNED BY: RT Will(R) March 18, 2021 10:48 AM documented in this encounter [facility] 02-16-2021 History of Present illness Narrative Radiology Service Progress Note PATIENT NAME: Ning Ann DATE OF SERVICE: February 16, 2021 TIME: 5:16 PM PATIENT IDENTITY VERIFICATION COMPLETED USING TWO (2) IDENTIFIERS: Name and Date of confirmed by patient verbally. FALL SCREENING: Has the patient had 2 falls in the last year or 1 fall with injury or currently using an Ambulatory Assistive Device (Walker, Cane, Wheelchair, Crutches, etc.)? No PATIENT GENDER DATA: Female. status: : No status: NO. PATIENT RELEVANT IMPLANT DATA REVIEWED: Not Applicable RADIOLOGY DEPARTMENT: General X-ray: Exam(s) Completed: Chest X-Ray PERIPHERAL IV DATA: Not applicable SIGNED BY: RT Jenn(R) February 16, 2021 5:16 PM documented in this encounter [facility] 06-28-2020 History of Present illness Narrative Radiology Service Progress Note PATIENT NAME: Ning Ann DATE OF SERVICE: June 28, 2020 TIME: 10:03 AM PATIENT IDENTITY VERIFICATION COMPLETED USING TWO (2) IDENTIFIERS: Name and Date of confirmed by patient verbally. FALL SCREENING: Has the patient had 2 falls in the last year or 1 fall with injury or currently using an Ambulatory Assistive Device (Walker, Cane, Wheelchair, Crutches, etc.)? No PATIENT GENDER DATA: Female. status: : No status: NO. PATIENT RELEVANT IMPLANT DATA REVIEWED: Not Applicable RADIOLOGY DEPARTMENT: General X-ray: Exam(s) Completed: Upper Extremity X-Ray(s): Elbow, left : PERIPHERAL IV DATA: Not applicable SIGNED BY: RT Will June 28, 2020 10:03 AM documented in this encounter [facility] 02-15-2016 History of Past i llness Narrative Problem Noted Date Resolved Date Abdominal pain 02/15/2016 07/25/2016 Genital condyloma, female 09/23/20152016 PONV (postoperative nausea and vomiting) 016 07/25/2016 Trigger ring finger of right hand 12/15/2014 07/25/2016 Trigger middle finger of right hand 12/15/2014 07/25/2016 Chronic pelvic pain in female 01/13/2014 Acute pelvic pain, female 11/03/20132013 Right carpal tunnel syndrome 06/30/2013 Toenail deformity 04/28/2013 07/25/2016 Right hand paresthesia 04/28/2013 7 Folliculitis 04/28/2013 03/17/2015 Left ear pain 04/02/2013 03/17/2015 Bilateral acute serous otitis media 04/02/2013 03/17/2015 Abnormal uterine bleeding 08/09/20122013 Abnormality of gait 06/09/2011 03/17/2015 Routine general medical exam ination at a health care facility 01/11/2011 01/15/2012 Overview: 01/11/2011, establish care from Dr. Manning Routine gynecological examination 01/11/2011 01/15/2012 Overview: [facility]2016 Acute gastritis without mention of hemorrhage 07/01/2010 Diarrhea 05/04/2010 07/01/2010 Bacterial infection due to H. pylori 02/09/2010 07/01/2010 Epigastric pain 12/27/2009 03/17/2015 Patellofemoral disorder 03/09/2009 07/26/19 17 Sinus disorder 11/23/2008 11/12/2009 Acute bronchitis 07/13/2008 11/12/2009 Contact dermatitis and other eczema, due to unspecified cause 07/13/2008 11/12/2009 Other malaise and fatigue 04/22/20072009 BILIARY DYSKINESIA 04/25/2006 03/17/2015 PAIN ABDOMEN( Right Upper Quadrant) 04/20/2006 05/18/2006 Personal history of colonic polyps 03/15/2006 07/01/2010 Hypertrophy of breast 01/13/2004 05/18/2006 Endometriosis 04/22/2014 Temporomandibular joint disorders, unspecified 05/18/2006 Myalgia and myositis, unspecified 11/12/2009 Hemorrhage of rectum and anus Abdominal pain, epigastric 11/12 documented as of this encounter (statuses as of 07/11/2021) [facility]12-[facility]-2016 History of Past illness Narrative* Problem Noted Date Resolved Date Abdominal pain 02/15/2016 07/25/2016 Genital condyloma, female 09/23/20152016 PONV (postoperative nausea and vomiting) 016 07/25/2016 Trigger ring finger of right hand 12/15/2014 07/25/2016 Trigger middle finger of right hand 12/15/2014 07/25/2016 Chronic pelvic pain in female 01/13/2014 Acute pelvic pain, female 11/03/20132013 Right carpal tunnel syndrome 06/30/2013 Toenail deformity 04/28/2013 07/25/2016 Right hand paresthesia 04/28/2013 7 Folliculitis 04/28/2013 03/17/2015 Left ear pain 04/02/2013 03/17/2015 Bilateral acute serous otitis media 04/02/2013 03/17/2015 Abnormal uterine bleeding 08/09/20122013 Abnormality of gait 06/09/2011 03/17/2015 Routine general medical exam ination at a health care facility 01/11/2011 01/15/2012 Overview: 01/11/2011, establish care from Dr. Manning Routine gynecological examination 01/11/2011 01/15/2012 Overview: [facility] Roberto Kenneymagdi 10/04/2010 07/25/2016 Acute gastritis without mention of hemorrhage 07/01/2010 Diarrhea 05/04/2010 07/01/2010 Bacterial infection due to H. pylori 02/09/2010 07/01/2010 Epigastric pain 12/27/2009 03/17/2015 Patellofemoral disorder 03/09/2009 07/26/19 17 Sinus disorder 11/23/2008 11/12/2009 Acute bronchitis 07/13/2008 11/12/2009 Contact dermatitis and other eczema, due to unspecified cause 07/13/2008 11/12/2009 Other malaise and fatigue 04/22/20072009 BILIARY DYSKINESIA 04/25/2006 03/17/2015 PAIN ABDOMEN( Right Upper Quadrant) 04/20/2006 05/18/2006 Personal history of colonic polyps 03/15/2006 07/01/2010 Hypertrophy of breast 01/13/2004 05/18/2006 Endometriosis 04/22/2014 Temporomandibular joint disorders, unspecified 05/18/2006 Myalgia and myositis, unspecified 11/12/2009 Hemorrhage of rectum and anus Abdominal pain, epigastric 11/12 documented as of this encounter (statuses as of 07/15/2021) [facility]12[facility] History of Past illness Narrative* Problem Noted Date Resolved Date Abdominal pain 02/15/2016 07/25/2016 Genital condyloma, female 09/23/20152016 PONV (postoperative nausea and vomiting) 016 07/25/2016 Trigger ring finger of right hand 12/15/2014 07/25/2016 Trigger middle finger of right hand 12/15/2014 07/25/2016 Chronic pelvic pain in female 01/13/2014 Acute pelvic pain, female 11/03/20132013 Right carpal tunnel syndrome 06/30/2013 Toenail deformity 04/28/2013 07/25/2016 Right hand paresthesia 04/28/2013 7 Folliculitis 04/28/2013 03/17/2015 Left ear pain 04/02/2013 03/17/2015 Bilateral acute serous otitis media 04/02/2013 03/17/2015 Abnormal uterine bleeding 08/09/20122013 Abnormality of gait 06/09/2011 03/17/2015 Routine general medical exam ination at a health care facility 01/11/2011 01/15/2012 Overview: 01/11/2011, establish care from Dr. Manning Routine gynecological examination 01/11/2011 01/15/2012 Overview: [facility] Roberto Godinez 10/04/2010 07/25/2016 Acute gastritis without mention of hemorrhage 07/01/2010 Diarrhea 05/04/2010 07/01/2010 Bacterial infection due to H. pylori 02/09/2010 07/01/2010 Epigastric pain 12/27/2009 03/17/2015 Patellofemoral disorder 03/09/2009 07/26/19 17 Sinus disorder 11/23/2008 11/12/2009 Acute bronchitis 07/13/2008 11/12/2009 Contact dermatitis and other eczema, due to unspecified cause 07/13/2008 11/12/2009 Other malaise and fatigue 04/22/20072009 BILIARY DYSKINESIA 04/25/2006 03/17/2015 PAIN ABDOMEN( Right Upper Quadrant) 04/20/2006 05/18/2006 Personal history of colonic polyps 03/15/2006 07/01/2010 Hypertrophy of breast 01/13/2004 05/18/2006 Endometriosis 04/22/2014 Temporomandibular joint disorders, unspecified 05/18/2006 Myalgia and myositis, unspecified 11/12/2009 Hemorrhage of rectum and anus Abdominal pain, epigastric 11/12 documented as of this encounter (statuses as of 07/20/2021) [facility]12[facility] History of Past illness Narrative* Problem Noted Date Resolved Date Abdominal pain 02/15/2016 07/25/2016 Genital condyloma, female 09/23/20152016 PONV (postoperative nausea and vomiting) 016 07/25/2016 Trigger ring finger of right hand 12/15/2014 07/25/2016 Trigger middle finger of right hand 12/15/2014 07/25/2016 Chronic pelvic pain in female 01/13/2014 Acute pelvic pain, female 11/03/20132013 Right carpal tunnel syndrome 06/30/2013 Toenail deformity 04/28/2013 07/25/2016 Right hand paresthesia 04/28/2013 7 Folliculitis 04/28/2013 03/17/2015 Left ear pain 04/02/2013 03/17/2015 Bilateral acute serous otitis media 04/02/2013 03/17/2015 Abnormal uterine bleeding 08/09/20122013 Abnormality of gait 06/09/2011 03/17/2015 Routine general medical exam ination at a health care facility 01/11/2011 01/15/2012 Overview: 01/11/2011, establish care from Dr. Manning Routine gynecological examination 01/11/2011 01/15/2012 Overview: [facility] Roberto Godinez 10/04/2010 07/25/2016 Acute gastritis without mention of hemorrhage 07/01/2010 Diarrhea 05/04/2010 07/01/2010 Bacterial infection due to H. pylori 02/09/2010 07/01/2010 Epigastric pain 12/27/2009 03/17/2015 Patellofemoral disorder 03/09/2009 07/26/19 17 Sinus disorder 11/23/2008 11/12/2009 Acute bronchitis 07/13/2008 11/12/2009 Contact dermatitis and other eczema, due to unspecified cause 07/13/2008 11/12/2009 Other malaise and fatigue 04/22/20072009 BILIARY DYSKINESIA 04/25/2006 03/17/2015 PAIN ABDOMEN( Right Upper Quadrant) 04/20/2006 05/18/2006 Personal history of colonic polyps 03/15/2006 07/01/2010 Hypertrophy of breast 01/13/2004 05/18/2006 Endometriosis 04/22/2014 Temporomandibular joint disorders, unspecified 05/18/2006 Myalgia and myositis, unspecified 11/12/2009 Hemorrhage of rectum and anus Abdominal pain, epigastric 11/12 documented as of this encounter (statuses as of 07/21/2021) [facility]12[facility] History of Past illness Narrative* Problem Noted Date Resolved Date Abdominal pain 02/15/2016 07/25/2016 Genital condyloma, female 09/23/20152016 PONV (postoperative nausea and vomiting) 016 07/25/2016 Trigger ring finger of right hand 12/15/2014 07/25/2016 Trigger middle finger of right hand 12/15/2014 07/25/2016 Chronic pelvic pain in female 01/13/2014 Acute pelvic pain, female 11/03/20132013 Right carpal tunnel syndrome 06/30/2013 Toenail deformity 04/28/2013 07/25/2016 Right hand paresthesia 04/28/2013 7 Folliculitis 04/28/2013 03/17/2015 Left ear pain 04/02/2013 03/17/2015 Bilateral acute serous otitis media 04/02/2013 03/17/2015 Abnormal uterine bleeding 08/09/20122013 Abnormality of gait 06/09/2011 03/17/2015 Routine general medical exam ination at a health care facility 01/11/2011 01/15/2012 Overview: 01/11/2011, establish care from Dr. Manning Routine gynecological examination 01/11/2011 01/15/2012 Overview: [facility], [facility] Roberto Godinez 10/04/2010 07/25/2016 Acute gastritis without mention of hemorrhage 07/01/2010 Diarrhea 05/04/2010 07/01/2010 Bacterial infection due to H. pylori 02/09/2010 07/01/2010 Epigastric pain 12/27/2009 03/17/2015 Patellofemoral disorder 03/09/2009 07/26/19 17 Sinus disorder 11/23/2008 11/12/2009 Acute bronchitis 07/13/2008 11/12/2009 Contact dermatitis and other eczema, due to unspecified cause 07/13/2008 11/12/2009 Other malaise and fatigue 04/22/20072009 BILIARY DYSKINESIA 04/25/2006 03/17/2015 PAIN ABDOMEN( Right Upper Quadrant) 04/20/2006 05/18/2006 Personal history of colonic polyps 03/15/2006 07/01/2010 Hypertrophy of breast 01/13/2004 05/18/2006 Endometriosis 04/22/2014 Temporomandibular joint disorders, unspecified 05/18/2006 Myalgia and myositis, unspecified 11/12/2009 Hemorrhage of rectum and anus Abdominal pain, epigastric 11/12 documented as of this encounter (statuses as of 08/23/2021) [facility]12[facility] History of Past illness Narrative* Problem Noted Date Resolved Date Abdominal pain 02/15/2016 07/25/2016 Genital condyloma, female 09/23/20152016 PONV (postoperative nausea and vomiting) 016 07/25/2016 Trigger ring finger of right hand 12/15/2014 07/25/2016 Trigger middle finger of right hand 12/15/2014 07/25/2016 Chronic pelvic pain in female 01/13/2014 Acute pelvic pain, female 11/03/20132013 Right carpal tunnel syndrome 06/30/2013 Toenail deformity 04/28/2013 07/25/2016 Right hand paresthesia 04/28/2013 7 Folliculitis 04/28/2013 03/17/2015 Left ear pain 04/02/2013 03/17/2015 Bilateral acute serous otitis media 04/02/2013 03/17/2015 Abnormal uterine bleeding 08/09/20122013 Abnormality of gait 06/09/2011 03/17/2015 Routine general medical exam ination at a health care facility 01/11/2011 01/15/2012 Overview: 01/11/2011, establish care from Dr. Manning Routine gynecological examination 01/11/2011 01/15/2012 Overview: [facility] 07/25/2016 Acute gastritis without mention of hemorrhage 07/01/2010 Diarrhea 05/04/2010 07/01/2010 Bacterial infection due to H. pylori 02/09/2010 07/01/2010 Epigastric pain 12/27/2009 03/17/2015 Patellofemoral disorder 03/09/2009 07/26/19 17 Sinus disorder 11/23/2008 11/12/2009 Acute bronchitis 07/13/2008 11/12/2009 Contact dermatitis and other eczema, due to unspecified cause 07/13/2008 11/12/2009 Other malaise and fatigue 04/22/20072009 BILIARY DYSKINESIA 04/25/2006 03/17/2015 PAIN ABDOMEN( Right Upper Quadrant) 04/20/2006 05/18/2006 Personal history of colonic polyps 03/15/2006 07/01/2010 Hypertrophy of breast 01/13/2004 05/18/2006 Endometriosis 04/22/2014 Temporomandibular joint disorders, unspecified 05/18/2006 Myalgia and myositis, unspecified 11/12/2009 Hemorrhage of rectum and anus Abdominal pain, epigastric 11/12 documented as of this encounter (statuses as of 10/18/2021) [facility]12[facility] History of Past illness Narrative* Problem Noted Date Resolved Date Abdominal pain 02/15/2016 07/25/2016 Genital condyloma, female 09/23/20152016 PONV (postoperative nausea and vomiting) 016 07/25/2016 Trigger ring finger of right hand 12/15/2014 07/25/2016 Trigger middle finger of right hand 12/15/2014 07/25/2016 Chronic pelvic pain in female 01/13/2014 Acute pelvic pain, female 11/03/20132013 Right carpal tunnel syndrome 06/30/2013 Toenail deformity 04/28/2013 07/25/2016 Right hand paresthesia 04/28/2013 7 Folliculitis 04/28/2013 03/17/2015 Left ear pain 04/02/2013 03/17/2015 Bilateral acute serous otitis media 04/02/2013 03/17/2015 Abnormal uterine bleeding 08/09/20122013 Abnormality of gait 06/09/2011 03/17/2015 Routine general medical exam ination at a health care facility 01/11/2011 01/15/2012 Overview: 01/11/2011, establish care from Dr. Manning Routine gynecological examination 01/11/2011 01/15/2012 Overview: [facility] Roberto Kenneymagdi 10/04/2010 07/25/2016 Acute gastritis without mention of hemorrhage 07/01/2010 Diarrhea 05/04/2010 07/01/2010 Bacterial infection due to H. pylori 02/09/2010 07/01/2010 Epigastric pain 12/27/2009 03/17/2015 Patellofemoral disorder 03/09/2009 07/26/19 17 Sinus disorder 11/23/2008 11/12/2009 Acute bronchitis 07/13/2008 11/12/2009 Contact dermatitis and other eczema, due to unspecified cause 07/13/2008 11/12/2009 Other malaise and fatigue 04/22/20072009 BILIARY DYSKINESIA 04/25/2006 03/17/2015 PAIN ABDOMEN( Right Upper Quadrant) 04/20/2006 05/18/2006 Personal history of colonic polyps 03/15/2006 07/01/2010 Hypertrophy of breast 01/13/2004 05/18/2006 Endometriosis 04/22/2014 Temporomandibular joint disorders, unspecified 05/18/2006 Myalgia and myositis, unspecified 11/12/2009 Hemorrhage of rectum and anus Abdominal pain, epigastric 11/12 documented as of this encounter (statuses as of 11/10/2021) [facility] History of Past illness Narrative* Problem Noted Date Resolved Date Abdominal pain 02/15/2016 07/25/2016 Genital condyloma, female 09/23/20152016 PONV (postoperative nausea and vomiting) 016 07/25/2016 Trigger ring finger of right hand 12/15/2014 07/25/2016 Trigger middle finger of right hand 12/15/2014 07/25/2016 Chronic pelvic pain in female 01/13/2014 Acute pelvic pain, female 11/03/20132013 Right carpal tunnel syndrome 06/30/2013 Toenail deformity 04/28/2013 07/25/2016 Right hand paresthesia 04/28/2013 7 Folliculitis 04/28/2013 03/17/2015 Left ear pain 04/02/2013 03/17/2015 Bilateral acute serous otitis media 04/02/2013 03/17/2015 Abnormal uterine bleeding 08/09/20122013 Abnormality of gait 06/09/2011 03/17/2015 Routine general medical exam ination at a health care facility 01/11/2011 01/15/2012 Overview: 01/11/2011, establish care from Dr. Manning Routine gynecological examination 01/11/2011 01/15/2012 Overview: [facility] Roberto Godinez 10/04/2010 07/25/2016 Acute gastritis without mention of hemorrhage 07/01/2010 Diarrhea 05/04/2010 07/01/2010 Bacterial infection due to H. pylori 02/09/2010 07/01/2010 Epigastric pain 12/27/2009 03/17/2015 Patellofemoral disorder 03/09/2009 07/26/19 17 Sinus disorder 11/23/2008 11/12/2009 Acute bronchitis 07/13/2008 11/12/2009 Contact dermatitis and other eczema, due to unspecified cause 07/13/2008 11/12/2009 Other malaise and fatigue 04/22/20072009 BILIARY DYSKINESIA 04/25/2006 03/17/2015 PAIN ABDOMEN( Right Upper Quadrant) 04/20/2006 05/18/2006 Personal history of colonic polyps 03/15/2006 07/01/2010 Hypertrophy of breast 01/13/2004 05/18/2006 Endometriosis 04/22/2014 Temporomandibular joint disorders, unspecified 05/18/2006 Myalgia and myositis, unspecified 11/12/2009 Hemorrhage of rectum and anus Abdominal pain, epigastric 11/12 documented as of this encounter (statuses as of 12/05/2021) [facility] History of Past illness Narrative* Problem Noted Date Resolved Date Abdominal pain 02/15/2016 07/25/2016 Genital condyloma, female 09/23/20152016 PONV (postoperative nausea and vomiting) 016 07/25/2016 Trigger ring finger of right hand 12/15/2014 07/25/2016 Trigger middle finger of right hand 12/15/2014 07/25/2016 Chronic pelvic pain in female 01/13/2014 Acute pelvic pain, female 11/03/20132013 Right carpal tunnel syndrome 06/30/2013 Toenail deformity 04/28/2013 07/25/2016 Right hand paresthesia 04/28/2013 7 Folliculitis 04/28/2013 03/17/2015 Left ear pain 04/02/2013 03/17/2015 Bilateral acute serous otitis media 04/02/2013 03/17/2015 Abnormal uterine bleeding 08/09/20122013 Abnormality of gait 06/09/2011 03/17/2015 Routine general medical exam ination at a health care facility 01/11/2011 01/15/2012 Overview: 01/11/2011, establish care from Dr. Manning Routine gynecological examination 01/11/2011 01/15/2012 Overview: [facility], [facility] Roberto Godinez 10/04/2010 07/25/2016 Acute gastritis without mention of hemorrhage 07/01/2010 Diarrhea 05/04/2010 07/01/2010 Bacterial infection due to H. pylori 02/09/2010 07/01/2010 Epigastric pain 12/27/2009 03/17/2015 Patellofemoral disorder 03/09/2009 07/26/19 17 Sinus disorder 11/23/2008 11/12/2009 Acute bronchitis 07/13/2008 11/12/2009 Contact dermatitis and other eczema, due to unspecified cause 07/13/2008 11/12/2009 Other malaise and fatigue 04/22/20072009 BILIARY DYSKINESIA 04/25/2006 03/17/2015 PAIN ABDOMEN( Right Upper Quadrant) 04/20/2006 05/18/2006 Personal history of colonic polyps 03/15/2006 07/01/2010 Hypertrophy of breast 01/13/2004 05/18/2006 Endometriosis 04/22/2014 Temporomandibular joint disorders, unspecified 05/18/2006 Myalgia and myositis, unspecified 11/12/2009 Hemorrhage of rectum and anus Abdominal pain, epigastric 11/12 documented as of this encounter (statuses as of 12/05/2021) [facility] of Past illness Narrative* Problem Noted Date Resolved Date Abdominal pain 02/15/2016 07/25/2016 Genital condyloma, female 09/23/20152016 PONV (postoperative nausea and vomiting) 016 07/25/2016 Trigger ring finger of right hand 12/15/2014 07/25/2016 Trigger middle finger of right hand 12/15/2014 07/25/2016 Chronic pelvic pain in female 01/13/2014 Acute pelvic pain, female 11/03/20132013 Right carpal tunnel syndrome 06/30/2013 Toenail deformity 04/28/2013 07/25/2016 Right hand paresthesia 04/28/2013 7 Folliculitis 04/28/2013 03/17/2015 Left ear pain 04/02/2013 03/17/2015 Bilateral acute serous otitis media 04/02/2013 03/17/2015 Abnormal uterine bleeding 08/09/20122013 Abnormality of gait 06/09/2011 03/17/2015 Routine general medical exam ination at a health care facility 01/11/2011 01/15/2012 Overview: 01/11/2011, establish care from Dr. Manning Routine gynecological examination 01/11/2011 01/15/2012 Overview: [facility], [facility] Roberto [facility] 10/04/2010 07/25/2016 Acute gastritis without mention of hemorrhage 07/01/2010 Diarrhea 05/04/2010 07/01/2010 Bacterial infection due to H. pylori 02/09/2010 07/01/2010 Epigastric pain 12/27/2009 03/17/2015 Patellofemoral disorder 03/09/2009 07/26/19 17 Sinus disorder 11/23/2008 11/12/2009 Acute bronchitis 07/13/2008 11/12/2009 Contact dermatitis and other eczema, due to unspecified cause 07/13/2008 11/12/2009 Other malaise and fatigue 04/22/20072009 BILIARY DYSKINESIA 04/25/2006 03/17/2015 PAIN ABDOMEN( Right Upper Quadrant) 04/20/2006 05/18/2006 Personal history of colonic polyps 03/15/2006 07/01/2010 Hypertrophy of breast 01/13/2004 05/18/2006 Endometriosis 04/22/2014 Temporomandibular joint disorders, unspecified 05/18/2006 Myalgia and myositis, unspecified 11/12/2009 Hemorrhage of rectum and anus Abdominal pain, epigastric 11/12 documented as of this encounter (statuses as of 12/06/2021) [facility] of Past illness Narrative* Problem Noted Date Resolved Date Abdominal pain 02/15/2016 07/25/2016 Genital condyloma, female 09/23/20152016 PONV (postoperative nausea and vomiting) 016 07/25/2016 Trigger ring finger of right hand 12/15/2014 07/25/2016 Trigger middle finger of right hand 12/15/2014 07/25/2016 Chronic pelvic pain in female 01/13/2014 Acute pelvic pain, female 11/03/20132013 Right carpal tunnel syndrome 06/30/2013 Toenail deformity 04/28/2013 07/25/2016 Right hand paresthesia 04/28/2013 7 Folliculitis 04/28/2013 03/17/2015 Left ear pain 04/02/2013 03/17/2015 Bilateral acute serous otitis media 04/02/2013 03/17/2015 Abnormal uterine bleeding 08/09/20122013 Abnormality of gait 06/09/2011 03/17/2015 Routine general medical exam ination at a health care facility 01/11/2011 01/15/2012 Overview: 01/11/2011, establish care from Dr. Manning Routine gynecological examination 01/11/2011 01/15/2012 Overview: [facility], [facility] Roberto Godinez 10/04/2010 07/25/2016 Acute gastritis without mention of hemorrhage 07/01/2010 Diarrhea 05/04/2010 07/01/2010 Bacterial infection due to H. pylori 02/09/2010 07/01/2010 Epigastric pain 12/27/2009 03/17/2015 Patellofemoral disorder 03/09/2009 07/26/19 17 Sinus disorder 11/23/2008 11/12/2009 Acute bronchitis 07/13/2008 11/12/2009 Contact dermatitis and other eczema, due to unspecified cause 07/13/2008 11/12/2009 Other malaise and fatigue 04/22/20072009 BILIARY DYSKINESIA 04/25/2006 03/17/2015 PAIN ABDOMEN( Right Upper Quadrant) 04/20/2006 05/18/2006 Personal history of colonic polyps 03/15/2006 07/01/2010 Hypertrophy of breast 01/13/2004 05/18/2006 Endometriosis 04/22/2014 Temporomandibular joint disorders, unspecified 05/18/2006 Myalgia and myositis, unspecified 11/12/2009 Hemorrhage of rectum and anus Abdominal pain, epigastric 11/12 documented as of this encounter (statuses as of 12/08/2021) [facility] of Past illness Narrative* Problem Noted Date Resolved Date Abdominal pain 02/15/2016 07/25/2016 Genital condyloma, female 09/23/20152016 PONV (postoperative nausea and vomiting) 016 07/25/2016 Trigger ring finger of right hand 12/15/2014 07/25/2016 Trigger middle finger of right hand 12/15/2014 07/25/2016 Chronic pelvic pain in female 01/13/2014 Acute pelvic pain, female 11/03/20132013 Right carpal tunnel syndrome 06/30/2013 Toenail deformity 04/28/2013 07/25/2016 Right hand paresthesia 04/28/2013 7 Folliculitis 04/28/2013 03/17/2015 Left ear pain 04/02/2013 03/17/2015 Bilateral acute serous otitis media 04/02/2013 03/17/2015 Abnormal uterine bleeding 08/09/20122013 Abnormality of gait 06/09/2011 03/17/2015 Routine general medical exam ination at a health care facility 01/11/2011 01/15/2012 Overview: 01/11/2011, establish care from Dr. Manning Routine gynecological examination 01/11/2011 01/15/2012 Overview: [facility] 10/04/2010 07/25/2016 Acute gastritis without mention of hemorrhage 07/01/2010 Diarrhea 05/04/2010 07/01/2010 Bacterial infection due to H. pylori 02/09/2010 07/01/2010 Epigastric pain 12/27/2009 03/17/2015 Patellofemoral disorder 03/09/2009 07/26/19 17 Sinus disorder 11/23/2008 11/12/2009 Contact dermatitis and other eczema, due to unspecified cause 07/13/2008 11/12/2009 Other malaise and fatigue 04/22/20072009 BILIARY DYSKINESIA 04/25/2006 03/17/2015 PAIN ABDOMEN( Right Upper Quadrant) 04/20/2006 05/18/2006 Personal history of colonic polyps 03/15/2006 07/01/2010 Hypertrophy of breast 01/13/2004 05/18/2006 Endometriosis 04/22/2014 Temporomandibular joint disorders, unspecified 05/18/2006 Myalgia and myositis, unspecified 11/12/2009 Hemorrhage of rectum and anus Abdominal pain, epigastric 11/12 documented as of this encounter (statuses as of 12/27/2021) [facility] of Past illness Narrative* Problem Noted Date Resolved Date Abdominal pain 02/15/2016 07/25/2016 Genital condyloma, female 09/23/20152016 PONV (postoperative nausea and vomiting) 016 07/25/2016 Trigger ring finger of right hand 12/15/2014 07/25/2016 Trigger middle finger of right hand 12/15/2014 07/25/2016 Chronic pelvic pain in female 01/13/2014 Acute pelvic pain, female 11/03/20132013 Right carpal tunnel syndrome 06/30/2013 Toenail deformity 04/28/2013 07/25/2016 Right hand paresthesia 04/28/2013 7 Folliculitis 04/28/2013 03/17/2015 Left ear pain 04/02/2013 03/17/2015 Bilateral acute serous otitis media 04/02/2013 03/17/2015 Abnormal uterine bleeding 08/09/20122013 Abnormality of gait 06/09/2011 03/17/2015 Routine general medical exam ination at a health care facility 01/11/2011 01/15/2012 Overview: 01/11/2011, establish care from Dr. Manning Routine gynecological examination 01/11/2011 01/15/2012 Overview: [facility] Roberto Godinez 10/04/2010 07/25/2016 Acute gastritis without mention of hemorrhage 07/01/2010 Diarrhea 05/04/2010 07/01/2010 Bacterial infection due to H. pylori 02/09/2010 07/01/2010 Epigastric pain 12/27/2009 03/17/2015 Patellofemoral disorder 03/09/2009 07/26/19 17 Sinus disorder 11/23/2008 11/12/2009 Contact dermatitis and other eczema, due to unspecified cause 07/13/2008 11/12/2009 Other malaise and fatigue 04/22/20072009 BILIARY DYSKINESIA 04/25/2006 03/17/2015 PAIN ABDOMEN( Right Upper Quadrant) 04/20/2006 05/18/2006 Personal history of colonic polyps 03/15/2006 07/01/2010 Hypertrophy of breast 01/13/2004 05/18/2006 Endometriosis 04/22/2014 Temporomandibular joint disorders, unspecified 05/18/2006 Myalgia and myositis, unspecified 11/12/2009 Hemorrhage of rectum and anus Abdominal pain, epigastric 11/12 documented as of this encounter (statuses as of 01/04/2022) [facility]12-[facility]-2016 History of Past illness Narrative* Problem Noted Date Resolved Date Abdominal pain 02/15/2016 07/25/2016 Genital condyloma, female 09/23/20152016 PONV (postoperative nausea and vomiting) 016 07/25/2016 Trigger ring finger of right hand 12/15/2014 07/25/2016 Trigger middle finger of right hand 12/15/2014 07/25/2016 Chronic pelvic pain in female 01/13/2014 Acute pelvic pain, female 11/03/20132013 Right carpal tunnel syndrome 06/30/2013 Toenail deformity 04/28/2013 07/25/2016 Right hand paresthesia 04/28/2013 7 Folliculitis 04/28/2013 03/17/2015 Left ear pain 04/02/2013 03/17/2015 Bilateral acute serous otitis media 04/02/2013 03/17/2015 Abnormal uterine bleeding 08/09/20122013 Abnormality of gait 06/09/2011 03/17/2015 Routine general medical exam ination at a health care facility 01/11/2011 01/15/2012 Overview: 01/11/2011, establish care from Dr. Manning Routine gynecological examination 01/11/2011 01/15/2012 Overview: [facility], [facility] Roberto Godinez 10/04/2010 07/25/2016 Acute gastritis without mention of hemorrhage 07/01/2010 Diarrhea 05/04/2010 07/01/2010 Bacterial infection due to H. pylori 02/09/2010 07/01/2010 Epigastric pain 12/27/2009 03/17/2015 Patellofemoral disorder 03/09/2009 07/26/19 17 Sinus disorder 11/23/2008 11/12/2009 Contact dermatitis and other eczema, due to unspecified cause 07/13/2008 11/12/2009 Other malaise and fatigue 04/22/20072009 BILIARY DYSKINESIA 04/25/2006 03/17/2015 PAIN ABDOMEN( Right Upper Quadrant) 04/20/2006 05/18/2006 Personal history of colonic polyps 03/15/2006 07/01/2010 Hypertrophy of breast 01/13/2004 05/18/2006 Endometriosis 04/22/2014 Temporomandibular joint disorders, unspecified 05/18/2006 Myalgia and myositis, unspecified 11/12/2009 Hemorrhage of rectum and anus Abdominal pain, epigastric 11/12 documented as of this encounter (statuses as of 01/06/2022) [facility]12-[facility]2016 History of Past illness Narrative* Problem Noted Date Resolved Date Abdominal pain 02/15/2016 07/25/2016 Genital condyloma, female 09/23/20152016 PONV (postoperative nausea and vomiting) 016 07/25/2016 Trigger ring finger of right hand 12/15/2014 07/25/2016 Trigger middle finger of right hand 12/15/2014 07/25/2016 Chronic pelvic pain in female 01/13/2014 Acute pelvic pain, female 11/03/20132013 Right carpal tunnel syndrome 06/30/2013 Toenail deformity 04/28/2013 07/25/2016 Right hand paresthesia 04/28/2013 7 Folliculitis 04/28/2013 03/17/2015 Left ear pain 04/02/2013 03/17/2015 Bilateral acute serous otitis media 04/02/2013 03/17/2015 Abnormal uterine bleeding 08/09/20122013 Abnormality of gait 06/09/2011 03/17/2015 Routine general medical exam ination at a health care facility 01/11/2011 01/15/2012 Overview: 01/11/2011, establish care from Dr. Manning Routine gynecological examination 01/11/2011 01/15/2012 Overview: [facility], [facility] Roberto Godinez 10/04/2010 07/25/2016 Acute gastritis without mention of hemorrhage 07/01/2010 Diarrhea 05/04/2010 07/01/2010 Bacterial infection due to H. pylori 02/09/2010 07/01/2010 Epigastric pain 12/27/2009 03/17/2015 Patellofemoral disorder 03/09/2009 07/26/19 17 Sinus disorder 11/23/2008 11/12/2009 Contact dermatitis and other eczema, due to unspecified cause 07/13/2008 11/12/2009 Other malaise and fatigue 04/22/20072009 BILIARY DYSKINESIA 04/25/2006 03/17/2015 PAIN ABDOMEN( Right Upper Quadrant) 04/20/2006 05/18/2006 Personal history of colonic polyps 03/15/2006 07/01/2010 Hypertrophy of breast 01/13/2004 05/18/2006 Endometriosis 04/22/2014 Temporomandibular joint disorders, unspecified 05/18/2006 Myalgia and myositis, unspecified 11/12/2009 Hemorrhage of rectum and anus Abdominal pain, epigastric 11/12 documented as of this encounter (statuses as of 01/09/2022) [facility] History of Past illness Narrative* Problem Noted Date Resolved Date Abdominal pain 02/15/2016 07/25/2016 Genital condyloma, female 09/23/20152016 PONV (postoperative nausea and vomiting) 016 07/25/2016 Trigger ring finger of right hand 12/15/2014 07/25/2016 Trigger middle finger of right hand 12/15/2014 07/25/2016 Chronic pelvic pain in female 01/13/2014 Acute pelvic pain, female 11/03/20132013 Right carpal tunnel syndrome 06/30/2013 Toenail deformity 04/28/2013 07/25/2016 Right hand paresthesia 04/28/2013 7 Folliculitis 04/28/2013 03/17/2015 Left ear pain 04/02/2013 03/17/2015 Bilateral acute serous otitis media 04/02/2013 03/17/2015 Abnormal uterine bleeding 08/09/20122013 Abnormality of gait 06/09/2011 03/17/2015 Routine general medical exam ination at a health care facility 01/11/2011 01/15/2012 Overview: 01/11/2011, establish care from Dr. Manning Routine gynecological examination 01/11/2011 01/15/2012 Overview: [facility] 07[facility]/2016 Acute gastritis without mention of hemorrhage 07/01/2010 Diarrhea 05/04/2010 07/01/2010 Bacterial infection due to H. pylori 02/09/2010 07/01/2010 Epigastric pain 12/27/2009 03/17/2015 Patellofemoral disorder 03/09/2009 07/26/19 17 Sinus disorder 11/23/2008 11/12/2009 Contact dermatitis and other eczema, due to unspecified cause 07/13/2008 11/12/2009 Other malaise and fatigue 04/22/20072009 BILIARY DYSKINESIA 04/25/2006 03/17/2015 PAIN ABDOMEN( Right Upper Quadrant) 04/20/2006 05/18/2006 Personal history of colonic polyps 03/15/2006 07/01/2010 Hypertrophy of breast 01/13/2004 05/18/2006 Endometriosis 04/22/2014 Temporomandibular joint disorders, unspecified 05/18/2006 Myalgia and myositis, unspecified 11/12/2009 Hemorrhage of rectum and anus Abdominal pain, epigastric 11/12 documented as of this encounter (statuses as of 01/26/2022) [facility]12[facility] History of Past illness Narrative* Problem Noted Date Resolved Date Abdominal pain 02/15/2016 07/25/2016 Genital condyloma, female 09/23/20152016 PONV (postoperative nausea and vomiting) 016 07/25/2016 Trigger ring finger of right hand 12/15/2014 07/25/2016 Trigger middle finger of right hand 12/15/2014 07/25/2016 Chronic pelvic pain in female 01/13/2014 Acute pelvic pain, female 11/03/20132013 Right carpal tunnel syndrome 06/30/2013 Toenail deformity 04/28/2013 07/25/2016 Right hand paresthesia 04/28/2013 7 Folliculitis 04/28/2013 03/17/2015 Left ear pain 04/02/2013 03/17/2015 Bilateral acute serous otitis media 04/02/2013 03/17/2015 Abnormal uterine bleeding 08/09/20122013 Abnormality of gait 06/09/2011 03/17/2015 Routine general medical exam ination at a health care facility 01/11/2011 01/15/2012 Overview: 01/11/2011, establish care from Dr. Manning Routine gynecological examination 01/11/2011 01/15/2012 Overview: [facility] Roberto Kenneymagdi 10/04/2010 07/25/2016 Acute gastritis without mention of hemorrhage 07/01/2010 Diarrhea 05/04/2010 07/01/2010 Bacterial infection due to H. pylori 02/09/2010 07/01/2010 Epigastric pain 12/27/2009 03/17/2015 Patellofemoral disorder 03/09/2009 07/26/19 17 Sinus disorder 11/23/2008 11/12/2009 Contact dermatitis and other eczema, due to unspecified cause 07/13/2008 11/12/2009 Other malaise and fatigue 04/22/20072009 BILIARY DYSKINESIA 04/25/2006 03/17/2015 PAIN ABDOMEN( Right Upper Quadrant) 04/20/2006 05/18/2006 Personal history of colonic polyps 03/15/2006 07/01/2010 Hypertrophy of breast 01/13/2004 05/18/2006 Endometriosis 04/22/2014 Temporomandibular joint disorders, unspecified 05/18/2006 Myalgia and myositis, unspecified 11/12/2009 Hemorrhage of rectum and anus Abdominal pain, epigastric 11/12 documented as of this encounter (statuses as of 02/08/2022) [facility]12[facility] History of Past illness Narrative* Problem Noted Date Resolved Date Abdominal pain 02/15/2016 07/25/2016 Genital condyloma, female 09/23/20152016 PONV (postoperative nausea and vomiting) 016 07/25/2016 Trigger ring finger of right hand 12/15/2014 07/25/2016 Trigger middle finger of right hand 12/15/2014 07/25/2016 Chronic pelvic pain in female 01/13/2014 Acute pelvic pain, female 11/03/20132013 Right carpal tunnel syndrome 06/30/2013 Toenail deformity 04/28/2013 07/25/2016 Right hand paresthesia 04/28/2013 7 Folliculitis 04/28/2013 03/17/2015 Left ear pain 04/02/2013 03/17/2015 Bilateral acute serous otitis media 04/02/2013 03/17/2015 Abnormal uterine bleeding 08/09/20122013 Abnormality of gait 06/09/2011 03/17/2015 Routine general medical exam ination at a health care facility 01/11/2011 01/15/2012 Overview: 01/11/2011, establish care from Dr. Manning Routine gynecological examination 01/11/2011 01/15/2012 Overview: [facility] Roberto Godinez 10/04/2010 07/25/2016 Acute gastritis without mention of hemorrhage 07/01/2010 Diarrhea 05/04/2010 07/01/2010 Bacterial infection due to H. pylori 02/09/2010 07/01/2010 Epigastric pain 12/27/2009 03/17/2015 Patellofemoral disorder 03/09/2009 07/26/19 17 Sinus disorder 11/23/2008 11/12/2009 Contact dermatitis and other eczema, due to unspecified cause 07/13/2008 11/12/2009 Other malaise and fatigue 04/22/20072009 BILIARY DYSKINESIA 04/25/2006 03/17/2015 PAIN ABDOMEN( Right Upper Quadrant) 04/20/2006 05/18/2006 Personal history of colonic polyps 03/15/2006 07/01/2010 Hypertrophy of breast 01/13/2004 05/18/2006 Endometriosis 04/22/2014 Temporomandibular joint disorders, unspecified 05/18/2006 Myalgia and myositis, unspecified 11/12/2009 Hemorrhage of rectum and anus Abdominal pain, epigastric 11/12 documented as of this encounter (statuses as of 02/17/2022) [facility] History of Past illness Narrative* Problem Noted Date Resolved Date Abdominal pain 02/15/2016 07/25/2016 Genital condyloma, female 09/23/20152016 PONV (postoperative nausea and vomiting) 016 07/25/2016 Trigger ring finger of right hand 12/15/2014 07/25/2016 Trigger middle finger of right hand 12/15/2014 07/25/2016 Chronic pelvic pain in female 01/13/2014 Acute pelvic pain, female 11/03/20132013 Right carpal tunnel syndrome 06/30/2013 Toenail deformity 04/28/2013 07/25/2016 Right hand paresthesia 04/28/2013 7 Folliculitis 04/28/2013 03/17/2015 Left ear pain 04/02/2013 03/17/2015 Bilateral acute serous otitis media 04/02/2013 03/17/2015 Abnormal uterine bleeding 08/09/20122013 Abnormality of gait 06/09/2011 03/17/2015 Routine general medical exam ination at a health care facility 01/11/2011 01/15/2012 Overview: 01/11/2011, establish care from Dr. Manning Routine gynecological examination 01/11/2011 01/15/2012 Overview: [facility], [facility] Roberto Godinez 10/04/2010 07/25/2016 Acute gastritis without mention of hemorrhage 07/01/2010 Diarrhea 05/04/2010 07/01/2010 Bacterial infection due to H. pylori 02/09/2010 07/01/2010 Epigastric pain 12/27/2009 03/17/2015 Patellofemoral disorder 03/09/2009 07/26/19 17 Sinus disorder 11/23/2008 11/12/2009 Contact dermatitis and other eczema, due to unspecified cause 07/13/2008 11/12/2009 Other malaise and fatigue 04/22/20072009 BILIARY DYSKINESIA 04/25/2006 03/17/2015 PAIN ABDOMEN( Right Upper Quadrant) 04/20/2006 05/18/2006 Personal history of colonic polyps 03/15/2006 07/01/2010 Hypertrophy of breast 01/13/2004 05/18/2006 Endometriosis 04/22/2014 Temporomandibular joint disorders, unspecified 05/18/2006 Myalgia and myositis, unspecified 11/12/2009 Hemorrhage of rectum and anus Abdominal pain, epigastric 11/12 documented as of this encounter (statuses as of 02/27/2022) [facility] History of Past illness Narrative* Problem Noted Date Resolved Date Abdominal pain 02/15/2016 07/25/2016 Genital condyloma, female 09/23/20152016 PONV (postoperative nausea and vomiting) 016 07/25/2016 Trigger ring finger of right hand 12/15/2014 07/25/2016 Trigger middle finger of right hand 12/15/2014 07/25/2016 Chronic pelvic pain in female 01/13/2014 Acute pelvic pain, female 11/03/20132013 Right carpal tunnel syndrome 06/30/2013 Toenail deformity 04/28/2013 07/25/2016 Right hand paresthesia 04/28/2013 7 Folliculitis 04/28/2013 03/17/2015 Left ear pain 04/02/2013 03/17/2015 Bilateral acute serous otitis media 04/02/2013 03/17/2015 Abnormal uterine bleeding 08/09/20122013 Abnormality of gait 06/09/2011 03/17/2015 Routine general medical exam ination at a health care facility 01/11/2011 01/15/2012 Overview: 01/11/2011, establish care from Dr. Beam Routine gynecological examination 01/11/2011 01/15/2012 Overview: [facility], [facility] Roberto Godinez 10/04/2010 07/25/2016 Acute gastritis without mention of hemorrhage 07/01/2010 Diarrhea 05/04/2010 07/01/2010 Bacterial infection due to H. pylori 02/09/2010 07/01/2010 Epigastric pain 12/27/2009 03/17/2015 Patellofemoral disorder 03/09/2009 07/26/19 17 Sinus disorder 11/23/2008 11/12/2009 Contact dermatitis and other eczema, due to unspecified cause 07/13/2008 11/12/2009 Other malaise and fatigue 04/22/20072009 BILIARY DYSKINESIA 04/25/2006 03/17/2015 PAIN ABDOMEN( Right Upper Quadrant) 04/20/2006 05/18/2006 Personal history of colonic polyps 03/15/2006 07/01/2010 Hypertrophy of breast 01/13/2004 05/18/2006 Endometriosis 04/22/2014 Temporomandibular joint disorders, unspecified 05/18/2006 Myalgia and myositis, unspecified 11/12/2009 Hemorrhage of rectum and anus Abdominal pain, epigastric 11/12 documented as of this encounter (statuses as of 03/01/2022) [facility] History of Past illness Narrative* Problem Noted Date Resolved Date Abdominal pain 02/15/2016 07/25/2016 Genital condyloma, female 09/23/20152016 PONV (postoperative nausea and vomiting) 016 07/25/2016 Trigger ring finger of right hand 12/15/2014 07/25/2016 Trigger middle finger of right hand 12/15/2014 07/25/2016 Chronic pelvic pain in female 01/13/2014 Acute pelvic pain, female 11/03/20132013 Right carpal tunnel syndrome 06/30/2013 Toenail deformity 04/28/2013 07/25/2016 Right hand paresthesia 04/28/2013 7 Folliculitis 04/28/2013 03/17/2015 Left ear pain 04/02/2013 03/17/2015 Bilateral acute serous otitis media 04/02/2013 03/17/2015 Abnormal uterine bleeding 08/09/20122013 Abnormality of gait 06/09/2011 03/17/2015 Routine general medical exam ination at a health care facility 01/11/2011 01/15/2012 Overview: 01/11/2011, establish care from Dr. Manning Routine gynecological examination 01/11/2011 01/15/2012 Overview: [facility]2016 Acute gastritis without mention of hemorrhage 07/01/2010 Diarrhea 05/04/2010 07/01/2010 Bacterial infection due to H. pylori 02/09/2010 07/01/2010 Epigastric pain 12/27/2009 03/17/2015 Patellofemoral disorder 03/09/2009 07/26/19 17 Sinus disorder 11/23/2008 11/12/2009 Contact dermatitis and other eczema, due to unspecified cause 07/13/2008 11/12/2009 Other malaise and fatigue 04/22/20072009 BILIARY DYSKINESIA 04/25/2006 03/17/2015 PAIN ABDOMEN( Right Upper Quadrant) 04/20/2006 05/18/2006 Personal history of colonic polyps 03/15/2006 07/01/2010 Hypertrophy of breast 01/13/2004 05/18/2006 Endometriosis 04/22/2014 Temporomandibular joint disorders, unspecified 05/18/2006 Myalgia and myositis, unspecified 11/12/2009 Hemorrhage of rectum and anus Abdominal pain, epigastric 11/12 documented as of this encounter (statuses as of 03/15/2022) [facility] History of Past illness Narrative* Problem Noted Date Resolved Date Abdominal pain 02/15/2016 07/25/2016 Genital condyloma, female 09/23/20152016 PONV (postoperative nausea and vomiting) 016 07/25/2016 Trigger ring finger of right hand 12/15/2014 07/25/2016 Trigger middle finger of right hand 12/15/2014 07/25/2016 Chronic pelvic pain in female 01/13/2014 Acute pelvic pain, female 11/03/20132013 Right carpal tunnel syndrome 06/30/2013 Toenail deformity 04/28/2013 07/25/2016 Right hand paresthesia 04/28/2013 7 Folliculitis 04/28/2013 03/17/2015 Left ear pain 04/02/2013 03/17/2015 Bilateral acute serous otitis media 04/02/2013 03/17/2015 Abnormal uterine bleeding 08/09/20122013 Abnormality of gait 06/09/2011 03/17/2015 Routine general medical exam ination at a health care facility 01/11/2011 01/15/2012 Overview: 01/11/2011, establish care from Dr. Manning Routine gynecological examination 01/11/2011 01/15/2012 Overview: [facility], [facility] Roberto Godinez 10/04/2010 07/25/2016 Acute gastritis without mention of hemorrhage 07/01/2010 Diarrhea 05/04/2010 07/01/2010 Bacterial infection due to H. pylori 02/09/2010 07/01/2010 Epigastric pain 12/27/2009 03/17/2015 Patellofemoral disorder 03/09/2009 07/26/19 17 Sinus disorder 11/23/2008 11/12/2009 Contact dermatitis and other eczema, due to unspecified cause 07/13/2008 11/12/2009 Other malaise and fatigue 04/22/20072009 BILIARY DYSKINESIA 04/25/2006 03/17/2015 PAIN ABDOMEN( Right Upper Quadrant) 04/20/2006 05/18/2006 Personal history of colonic polyps 03/15/2006 07/01/2010 Hypertrophy of breast 01/13/2004 05/18/2006 Endometriosis 04/22/2014 Temporomandibular joint disorders, unspecified 05/18/2006 Myalgia and myositis, unspecified 11/12/2009 Hemorrhage of rectum and anus Abdominal pain, epigastric 11/12 documented as of this encounter (statuses as of 03/16/2022) [facility] History of Past illness Narrative* Problem Noted Date Resolved Date Abdominal pain 02/15/2016 07/25/2016 Genital condyloma, female 09/23/20152016 PONV (postoperative nausea and vomiting) 016 07/25/2016 Trigger ring finger of right hand 12/15/2014 07/25/2016 Trigger middle finger of right hand 12/15/2014 07/25/2016 Chronic pelvic pain in female 01/13/2014 Acute pelvic pain, female 11/03/20132013 Right carpal tunnel syndrome 06/30/2013 Toenail deformity 04/28/2013 07/25/2016 Right hand paresthesia 04/28/2013 7 Folliculitis 04/28/2013 03/17/2015 Left ear pain 04/02/2013 03/17/2015 Bilateral acute serous otitis media 04/02/2013 03/17/2015 Abnormal uterine bleeding 08/09/20122013 Abnormality of gait 06/09/2011 03/17/2015 Routine general medical exam ination at a health care facility 01/11/2011 01/15/2012 Overview: 01/11/2011, establish care from Dr. Manning Routine gynecological examination 01/11/2011 01/15/2012 Overview: [facility], [facility] 10/04/2010 07/25/2016 Acute gastritis without mention of hemorrhage 07/01/2010 Diarrhea 05/04/2010 07/01/2010 Bacterial infection due to H. pylori 02/09/2010 07/01/2010 Epigastric pain 12/27/2009 03/17/2015 Patellofemoral disorder 03/09/2009 07/26/19 17 Sinus disorder 11/23/2008 11/12/2009 Contact dermatitis and other eczema, due to unspecified cause 07/13/2008 11/12/2009 Other malaise and fatigue 04/22/20072009 BILIARY DYSKINESIA 04/25/2006 03/17/2015 PAIN ABDOMEN( Right Upper Quadrant) 04/20/2006 05/18/2006 Personal history of colonic polyps 03/15/2006 07/01/2010 Hypertrophy of breast 01/13/2004 05/18/2006 Endometriosis 04/22/2014 Temporomandibular joint disorders, unspecified 05/18/2006 Myalgia and myositis, unspecified 11/12/2009 Hemorrhage of rectum and anus Abdominal pain, epigastric 11/12 documented as of this encounter (statuses as of 03/20/2022) [facility] of Past illness Narrative* Problem Noted Date Resolved Date Abdominal pain 02/15/2016 07/25/2016 Genital condyloma, female 09/23/20152016 PONV (postoperative nausea and vomiting) 016 07/25/2016 Trigger ring finger of right hand 12/15/2014 07/25/2016 Trigger middle finger of right hand 12/15/2014 07/25/2016 Chronic pelvic pain in female 01/13/2014 Acute pelvic pain, female 11/03/20132013 Right carpal tunnel syndrome 06/30/2013 Toenail deformity 04/28/2013 07/25/2016 Right hand paresthesia 04/28/2013 7 Folliculitis 04/28/2013 03/17/2015 Left ear pain 04/02/2013 03/17/2015 Bilateral acute serous otitis media 04/02/2013 03/17/2015 Abnormal uterine bleeding 08/09/20122013 Abnormality of gait 06/09/2011 03/17/2015 Routine general medical exam ination at a health care facility 01/11/2011 01/15/2012 Overview: 01/11/2011, establish care from Dr. Manning Routine gynecological examination 01/11/2011 01/15/2012 Overview: [facility] Roberto Godinez 10/04/2010 07/25/2016 Acute gastritis without mention of hemorrhage 07/01/2010 Diarrhea 05/04/2010 07/01/2010 Bacterial infection due to H. pylori 02/09/2010 07/01/2010 Epigastric pain 12/27/2009 03/17/2015 Patellofemoral disorder 03/09/2009 07/26/19 17 Sinus disorder 11/23/2008 11/12/2009 Contact dermatitis and other eczema, due to unspecified cause 07/13/2008 11/12/2009 Other malaise and fatigue 04/22/20072009 BILIARY DYSKINESIA 04/25/2006 03/17/2015 PAIN ABDOMEN( Right Upper Quadrant) 04/20/2006 05/18/2006 Personal history of colonic polyps 03/15/2006 07/01/2010 Hypertrophy of breast 01/13/2004 05/18/2006 Endometriosis 04/22/2014 Temporomandibular joint disorders, unspecified 05/18/2006 Myalgia and myositis, unspecified 11/12/2009 Hemorrhage of rectum and anus Abdominal pain, epigastric 11/12 documented as of this encounter (statuses as of 03/20/2022) [facility] of Past illness Narrative* Problem Noted Date Resolved Date Abdominal pain 02/15/2016 07/25/2016 Genital condyloma, female 09/23/20152016 PONV (postoperative nausea and vomiting) 016 07/25/2016 Trigger ring finger of right hand 12/15/2014 07/25/2016 Trigger middle finger of right hand 12/15/2014 07/25/2016 Chronic pelvic pain in female 01/13/2014 Acute pelvic pain, female 11/03/20132013 Right carpal tunnel syndrome 06/30/2013 Toenail deformity 04/28/2013 07/25/2016 Right hand paresthesia 04/28/2013 7 Folliculitis 04/28/2013 03/17/2015 Left ear pain 04/02/2013 03/17/2015 Bilateral acute serous otitis media 04/02/2013 03/17/2015 Abnormal uterine bleeding 08/09/20122013 Abnormality of gait 06/09/2011 03/17/2015 Routine general medical exam ination at a health care facility 01/11/2011 01/15/2012 Overview: 01/11/2011, establish care from Dr. Manning Routine gynecological examination 01/11/2011 01/15/2012 Overview: [facility], [facility] Roberto Godinez 10/04/2010 07/25/2016 Acute gastritis without mention of hemorrhage 07/01/2010 Diarrhea 05/04/2010 07/01/2010 Bacterial infection due to H. pylori 02/09/2010 07/01/2010 Epigastric pain 12/27/2009 03/17/2015 Patellofemoral disorder 03/09/2009 07/26/19 17 Sinus disorder 11/23/2008 11/12/2009 Contact dermatitis and other eczema, due to unspecified cause 07/13/2008 11/12/2009 Other malaise and fatigue 04/22/20072009 BILIARY DYSKINESIA 04/25/2006 03/17/2015 PAIN ABDOMEN( Right Upper Quadrant) 04/20/2006 05/18/2006 Personal history of colonic polyps 03/15/2006 07/01/2010 Hypertrophy of breast 01/13/2004 05/18/2006 Endometriosis 04/22/2014 Temporomandibular joint disorders, unspecified 05/18/2006 Myalgia and myositis, unspecified 11/12/2009 Hemorrhage of rectum and anus Abdominal pain, epigastric 11/12 documented as of this encounter (statuses as of 03/29/2022) [facility]12-[facility]2016 History of Past illness Narrative* Problem Noted Date Resolved Date Abdominal pain 02/15/2016 07/25/2016 Genital condyloma, female 09/23/20152016 PONV (postoperative nausea and vomiting) 016 07/25/2016 Trigger ring finger of right hand 12/15/2014 07/25/2016 Trigger middle finger of right hand 12/15/2014 07/25/2016 Chronic pelvic pain in female 01/13/2014 Acute pelvic pain, female 11/03/20132013 Right carpal tunnel syndrome 06/30/2013 Toenail deformity 04/28/2013 07/25/2016 Right hand paresthesia 04/28/2013 7 Folliculitis 04/28/2013 03/17/2015 Left ear pain 04/02/2013 03/17/2015 Bilateral acute serous otitis media 04/02/2013 03/17/2015 Abnormal uterine bleeding 08/09/20122013 Abnormality of gait 06/09/2011 03/17/2015 Routine general medical exam ination at a health care facility 01/11/2011 01/15/2012 Overview: 01/11/2011, establish care from Dr. Manning Routine gynecological examination 01/11/2011 01/15/2012 Overview: [facility], [facility] Roberto Godinez 10/04/2010 07/25/2016 Acute gastritis without mention of hemorrhage 07/01/2010 Diarrhea 05/04/2010 07/01/2010 Bacterial infection due to H. pylori 02/09/2010 07/01/2010 Epigastric pain 12/27/2009 03/17/2015 Patellofemoral disorder 03/09/2009 07/26/19 17 Sinus disorder 11/23/2008 11/12/2009 Contact dermatitis and other eczema, due to unspecified cause 07/13/2008 11/12/2009 Other malaise and fatigue 04/22/20072009 BILIARY DYSKINESIA 04/25/2006 03/17/2015 PAIN ABDOMEN( Right Upper Quadrant) 04/20/2006 05/18/2006 Personal history of colonic polyps 03/15/2006 07/01/2010 Hypertrophy of breast 01/13/2004 05/18/2006 Endometriosis 04/22/2014 Temporomandibular joint disorders, unspecified 05/18/2006 Myalgia and myositis, unspecified 11/12/2009 Hemorrhage of rectum and anus Abdominal pain, epigastric 11/12 documented as of this encounter (statuses as of 03/31/2022) [facility]12-[facility] History of Past illness Narrative* Problem Noted Date Resolved Date Abdominal pain 02/15/2016 07/25/2016 Genital condyloma, female 09/23/20152016 PONV (postoperative nausea and vomiting) 016 07/25/2016 Trigger ring finger of right hand 12/15/2014 07/25/2016 Trigger middle finger of right hand 12/15/2014 07/25/2016 Chronic pelvic pain in female 01/13/2014 Acute pelvic pain, female 11/03/20132013 Right carpal tunnel syndrome 06/30/2013 Toenail deformity 04/28/2013 07/25/2016 Right hand paresthesia 04/28/2013 7 Folliculitis 04/28/2013 03/17/2015 Left ear pain 04/02/2013 03/17/2015 Bilateral acute serous otitis media 04/02/2013 03/17/2015 Abnormal uterine bleeding 08/09/20122013 Abnormality of gait 06/09/2011 03/17/2015 Routine general medical exam ination at a health care facility 01/11/2011 01/15/2012 Overview: 01/11/2011, establish care from Dr. Manning Routine gynecological examination 01/11/2011 01/15/2012 Overview: [facility], [facility] Roberto Kenneymagdi 10/04/2010 07/25/2016 Acute gastritis without mention of hemorrhage 07/01/2010 Diarrhea 05/04/2010 07/01/2010 Bacterial infection due to H. pylori 02/09/2010 07/01/2010 Epigastric pain 12/27/2009 03/17/2015 Patellofemoral disorder 03/09/2009 07/26/19 17 Sinus disorder 11/23/2008 11/12/2009 Contact dermatitis and other eczema, due to unspecified cause 07/13/2008 11/12/2009 Other malaise and fatigue 04/22/20072009 BILIARY DYSKINESIA 04/25/2006 03/17/2015 PAIN ABDOMEN( Right Upper Quadrant) 04/20/2006 05/18/2006 Personal history of colonic polyps 03/15/2006 07/01/2010 Hypertrophy of breast 01/13/2004 05/18/2006 Endometriosis 04/22/2014 Temporomandibular joint disorders, unspecified 05/18/2006 Myalgia and myositis, unspecified 11/12/2009 Hemorrhage of rectum and anus Abdominal pain, epigastric 11/12 documented as of this encounter (statuses as of 04/07/2022) [facility]12[facility] History of Past illness Narrative* Problem Noted Date Resolved Date Abdominal pain 02/15/2016 07/25/2016 Genital condyloma, female 09/23/20152016 PONV (postoperative nausea and vomiting) 016 07/25/2016 Trigger ring finger of right hand 12/15/2014 07/25/2016 Trigger middle finger of right hand 12/15/2014 07/25/2016 Chronic pelvic pain in female 01/13/2014 Acute pelvic pain, female 11/03/20132013 Right carpal tunnel syndrome 06/30/2013 Toenail deformity 04/28/2013 07/25/2016 Right hand paresthesia 04/28/2013 7 Folliculitis 04/28/2013 03/17/2015 Left ear pain 04/02/2013 03/17/2015 Bilateral acute serous otitis media 04/02/2013 03/17/2015 Abnormal uterine bleeding 08/09/20122013 Abnormality of gait 06/09/2011 03/17/2015 Routine general medical exam ination at a health care facility 01/11/2011 01/15/2012 Overview: 01/11/2011, establish care from Dr. Manning Routine gynecological examination 01/11/2011 01/15/2012 Overview: [facility], [facility] Roberto Pablitomagdi 10/04/2010 07/25/2016 Acute gastritis without mention of hemorrhage 07/01/2010 Diarrhea 05/04/2010 07/01/2010 Bacterial infection due to H. pylori 02/09/2010 07/01/2010 Epigastric pain 12/27/2009 03/17/2015 Patellofemoral disorder 03/09/2009 07/26/19 17 Sinus disorder 11/23/2008 11/12/2009 Contact dermatitis and other eczema, due to unspecified cause 07/13/2008 11/12/2009 Other malaise and fatigue 04/22/20072009 BILIARY DYSKINESIA 04/25/2006 03/17/2015 PAIN ABDOMEN( Right Upper Quadrant) 04/20/2006 05/18/2006 Personal history of colonic polyps 03/15/2006 07/01/2010 Hypertrophy of breast 01/13/2004 05/18/2006 Endometriosis 04/22/2014 Temporomandibular joint disorders, unspecified 05/18/2006 Myalgia and myositis, unspecified 11/12/2009 Hemorrhage of rectum and anus Abdominal pain, epigastric 11/12 documented as of this encounter (statuses as of 05/01/2022) [facility]12[facility] History of Past illness Narrative* Problem Noted Date Resolved Date Abdominal pain 02/15/2016 07/25/2016 Genital condyloma, female 09/23/20152016 PONV (postoperative nausea and vomiting) 016 07/25/2016 Trigger ring finger of right hand 12/15/2014 07/25/2016 Trigger middle finger of right hand 12/15/2014 07/25/2016 Chronic pelvic pain in female 01/13/2014 Acute pelvic pain, female 11/03/20132013 Right carpal tunnel syndrome 06/30/2013 Toenail deformity 04/28/2013 07/25/2016 Right hand paresthesia 04/28/2013 7 Folliculitis 04/28/2013 03/17/2015 Left ear pain 04/02/2013 03/17/2015 Bilateral acute serous otitis media 04/02/2013 03/17/2015 Abnormal uterine bleeding 08/09/20122013 Abnormality of gait 06/09/2011 03/17/2015 Routine general medical exam ination at a health care facility 01/11/2011 01/15/2012 Overview: 01/11/2011, establish care from Dr. Manning Routine gynecological examination 01/11/2011 01/15/2012 Overview: [facility], [facility] Roberto Godinez 10/04/2010 07/25/2016 Acute gastritis without mention of hemorrhage 07/01/2010 Diarrhea 05/04/2010 07/01/2010 Bacterial infection due to H. pylori 02/09/2010 07/01/2010 Epigastric pain 12/27/2009 03/17/2015 Patellofemoral disorder 03/09/2009 07/26/19 17 Sinus disorder 11/23/2008 11/12/2009 Contact dermatitis and other eczema, due to unspecified cause 07/13/2008 11/12/2009 Other malaise and fatigue 04/22/20072009 BILIARY DYSKINESIA 04/25/2006 03/17/2015 PAIN ABDOMEN( Right Upper Quadrant) 04/20/2006 05/18/2006 Personal history of colonic polyps 03/15/2006 07/01/2010 Hypertrophy of breast 01/13/2004 05/18/2006 Endometriosis 04/22/2014 Temporomandibular joint disorders, unspecified 05/18/2006 Myalgia and myositis, unspecified 11/12/2009 Hemorrhage of rectum and anus Abdominal pain, epigastric 11/12 documented as of this encounter (statuses as of 05/03/2022) [facility] History of Past illness Narrative* Problem Noted Date Resolved Date Abdominal pain 02/15/2016 07/25/2016 Genital condyloma, female 09/23/20152016 PONV (postoperative nausea and vomiting) 016 07/25/2016 Trigger ring finger of right hand 12/15/2014 07/25/2016 Trigger middle finger of right hand 12/15/2014 07/25/2016 Chronic pelvic pain in female 01/13/2014 Acute pelvic pain, female 11/03/20132013 Right carpal tunnel syndrome 06/30/2013 Toenail deformity 04/28/2013 07/25/2016 Right hand paresthesia 04/28/2013 7 Folliculitis 04/28/2013 03/17/2015 Left ear pain 04/02/2013 03/17/2015 Bilateral acute serous otitis media 04/02/2013 03/17/2015 Abnormal uterine bleeding 08/09/20122013 Abnormality of gait 06/09/2011 03/17/2015 Routine general medical exam ination at a health care facility 01/11/2011 01/15/2012 Overview: 01/11/2011, establish care from Dr. Manning Routine gynecological examination 01/11/2011 01/15/2012 Overview: [facility], [facility] Roberto Godinez 10/04/2010 07/25/2016 Acute gastritis without mention of hemorrhage 07/01/2010 Diarrhea 05/04/2010 07/01/2010 Bacterial infection due to H. pylori 02/09/2010 07/01/2010 Epigastric pain 12/27/2009 03/17/2015 Patellofemoral disorder 03/09/2009 07/26/19 17 Sinus disorder 11/23/2008 11/12/2009 Contact dermatitis and other eczema, due to unspecified cause 07/13/2008 11/12/2009 Other malaise and fatigue 04/22/20072009 BILIARY DYSKINESIA 04/25/2006 03/17/2015 PAIN ABDOMEN( Right Upper Quadrant) 04/20/2006 05/18/2006 Personal history of colonic polyps 03/15/2006 07/01/2010 Hypertrophy of breast 01/13/2004 05/18/2006 Endometriosis 04/22/2014 Temporomandibular joint disorders, unspecified 05/18/2006 Myalgia and myositis, unspecified 11/12/2009 Hemorrhage of rectum and anus Abdominal pain, epigastric 11/12 documented as of this encounter (statuses as of 05/04/2022) [facility]12[facility] History of Past illness Narrative* Problem Noted Date Resolved Date Abdominal pain 02/15/2016 07/25/2016 Genital condyloma, female 09/23/20152016 PONV (postoperative nausea and vomiting) 016 07/25/2016 Trigger ring finger of right hand 12/15/2014 07/25/2016 Trigger middle finger of right hand 12/15/2014 07/25/2016 Chronic pelvic pain in female 01/13/2014 Acute pelvic pain, female 11/03/20132013 Right carpal tunnel syndrome 06/30/2013 Toenail deformity 04/28/2013 07/25/2016 Right hand paresthesia 04/28/2013 7 Folliculitis 04/28/2013 03/17/2015 Left ear pain 04/02/2013 03/17/2015 Bilateral acute serous otitis media 04/02/2013 03/17/2015 Abnormal uterine bleeding 08/09/20122013 Abnormality of gait 06/09/2011 03/17/2015 Routine general medical exam ination at a health care facility 01/11/2011 01/15/2012 Overview: 01/11/2011, establish care from Dr. Manning Routine gynecological examination 01/11/2011 01/15/2012 Overview: [facility], [facility] Roberto Godinez 10/04/2010 07/25/2016 Acute gastritis without mention of hemorrhage 07/01/2010 Diarrhea 05/04/2010 07/01/2010 Bacterial infection due to H. pylori 02/09/2010 07/01/2010 Epigastric pain 12/27/2009 03/17/2015 Patellofemoral disorder 03/09/2009 07/26/19 17 Sinus disorder 11/23/2008 11/12/2009 Contact dermatitis and other eczema, due to unspecified cause 07/13/2008 11/12/2009 Other malaise and fatigue 04/22/20072009 BILIARY DYSKINESIA 04/25/2006 03/17/2015 PAIN ABDOMEN( Right Upper Quadrant) 04/20/2006 05/18/2006 Personal history of colonic polyps 03/15/2006 07/01/2010 Hypertrophy of breast 01/13/2004 05/18/2006 Endometriosis 04/22/2014 Temporomandibular joint disorders, unspecified 05/18/2006 Myalgia and myositis, unspecified 11/12/2009 Hemorrhage of rectum and anus Abdominal pain, epigastric 11/12 documented as of this encounter (statuses as of 05/19/2022) [facility]12[facility] History of Past illness Narrative* Problem Noted Date Resolved Date Abdominal pain 02/15/2016 07/25/2016 Genital condyloma, female 09/23/20152016 PONV (postoperative nausea and vomiting) 016 07/25/2016 Trigger ring finger of right hand 12/15/2014 07/25/2016 Trigger middle finger of right hand 12/15/2014 07/25/2016 Chronic pelvic pain in female 01/13/2014 Acute pelvic pain, female 11/03/20132013 Right carpal tunnel syndrome 06/30/2013 Toenail deformity 04/28/2013 07/25/2016 Right hand paresthesia 04/28/2013 7 Folliculitis 04/28/2013 03/17/2015 Left ear pain 04/02/2013 03/17/2015 Bilateral acute serous otitis media 04/02/2013 03/17/2015 Abnormal uterine bleeding 08/09/20122013 Abnormality of gait 06/09/2011 03/17/2015 Routine general medical exam ination at a health care facility 01/11/2011 01/15/2012 Overview: 01/11/2011, establish care from Dr. Manning Routine gynecological examination 01/11/2011 01/15/2012 Overview: [facility], [facility] Roberto Kenneyrosalio 10/04/2010 07/25/2016 Acute gastritis without mention of hemorrhage 07/01/2010 Diarrhea 05/04/2010 07/01/2010 Bacterial infection due to H. pylori 02/09/2010 07/01/2010 Epigastric pain 12/27/2009 03/17/2015 Patellofemoral disorder 03/09/2009 07/26/19 17 Sinus disorder 11/23/2008 11/12/2009 Contact dermatitis and other eczema, due to unspecified cause 07/13/2008 11/12/2009 Other malaise and fatigue 04/22/20072009 BILIARY DYSKINESIA 04/25/2006 03/17/2015 PAIN ABDOMEN( Right Upper Quadrant) 04/20/2006 05/18/2006 Personal history of colonic polyps 03/15/2006 07/01/2010 Hypertrophy of breast 01/13/2004 05/18/2006 Endometriosis 04/22/2014 Temporomandibular joint disorders, unspecified 05/18/2006 Myalgia and myositis, unspecified 11/12/2009 Hemorrhage of rectum and anus Abdominal pain, epigastric 11/12 documented as of this encounter (statuses as of 2022) [facility] History of Past illness Narrative* Problem Noted Date Resolved Date Abdominal pain 02/15/2016 07/25/2016 Genital condyloma, female 09/23/20152016 PONV (postoperative nausea and vomiting) 016 07/25/2016 Trigger ring finger of right hand 12/15/2014 07/25/2016 Trigger middle finger of right hand 12/15/2014 07/25/2016 Chronic pelvic pain in female 01/13/2014 Acute pelvic pain, female 11/03/20132013 Right carpal tunnel syndrome 06/30/2013 Toenail deformity 04/28/2013 07/25/2016 Right hand paresthesia 04/28/2013 7 Folliculitis 04/28/2013 03/17/2015 Left ear pain 04/02/2013 03/17/2015 Bilateral acute serous otitis media 04/02/2013 03/17/2015 Abnormal uterine bleeding 08/09/20122013 Abnormality of gait 06/09/2011 03/17/2015 Routine general medical exam ination at a health care facility 01/11/2011 01/15/2012 Overview: 01/11/2011, establish care from Dr. Manning Routine gynecological examination 01/11/2011 01/15/2012 Overview: [facility], [facility] Roberto Godinez 10/04/2010 07/25/2016 Acute gastritis without mention of hemorrhage 07/01/2010 Diarrhea 05/04/2010 07/01/2010 Bacterial infection due to H. pylori 02/09/2010 07/01/2010 Epigastric pain 12/27/2009 03/17/2015 Patellofemoral disorder 03/09/2009 07/26/19 17 Sinus disorder 11/23/2008 11/12/2009 Contact dermatitis and other eczema, due to unspecified cause 07/13/2008 11/12/2009 Other malaise and fatigue 04/22/20072009 BILIARY DYSKINESIA 04/25/2006 03/17/2015 PAIN ABDOMEN( Right Upper Quadrant) 04/20/2006 05/18/2006 Personal history of colonic polyps 03/15/2006 07/01/2010 Hypertrophy of breast 01/13/2004 05/18/2006 Endometriosis 04/22/2014 Temporomandibular joint disorders, unspecified 05/18/2006 Myalgia and myositis, unspecified 11/12/2009 Hemorrhage of rectum and anus Abdominal pain, epigastric 11/12 documented as of this encounter (statuses as of 05/23/2022) [facility] of Past illness Narrative* Problem Noted Date Resolved Date Abdominal pain 02/15/2016 07/25/2016 Genital condyloma, female 09/23/20152016 PONV (postoperative nausea and vomiting) 016 07/25/2016 Trigger ring finger of right hand 12/15/2014 07/25/2016 Trigger middle finger of right hand 12/15/2014 07/25/2016 Chronic pelvic pain in female 01/13/2014 Acute pelvic pain, female 11/03/20132013 Right carpal tunnel syndrome 06/30/2013 Toenail deformity 04/28/2013 07/25/2016 Right hand paresthesia 04/28/2013 7 Folliculitis 04/28/2013 03/17/2015 Left ear pain 04/02/2013 03/17/2015 Bilateral acute serous otitis media 04/02/2013 03/17/2015 Abnormal uterine bleeding 08/09/20122013 Abnormality of gait 06/09/2011 03/17/2015 Routine general medical exam ination at a health care facility 01/11/2011 01/15/2012 Overview: 01/11/2011, establish care from Dr. Manning Routine gynecological examination 01/11/2011 01/15/2012 Overview: [facility]2016 Acute gastritis without mention of hemorrhage 07/01/2010 Diarrhea 05/04/2010 07/01/2010 Bacterial infection due to H. pylori 02/09/2010 07/01/2010 Epigastric pain 12/27/2009 03/17/2015 Patellofemoral disorder 03/09/2009 07/26/19 17 Sinus disorder 11/23/2008 11/12/2009 Contact dermatitis and other eczema, due to unspecified cause 07/13/2008 11/12/2009 Other malaise and fatigue 04/22/20072009 BILIARY DYSKINESIA 04/25/2006 03/17/2015 PAIN ABDOMEN( Right Upper Quadrant) 04/20/2006 05/18/2006 Personal history of colonic polyps 03/15/2006 07/01/2010 Hypertrophy of breast 01/13/2004 05/18/2006 Endometriosis 04/22/2014 Temporomandibular joint disorders, unspecified 05/18/2006 Myalgia and myositis, unspecified 11/12/2009 Hemorrhage of rectum and anus Abdominal pain, epigastric 11/12 documented as of this encounter (statuses as of 05/26/2022) [facility] History of Past illness Narrative* Problem Noted Date Resolved Date Abdominal pain 02/15/2016 07/25/2016 Genital condyloma, female 09/23/20152016 PONV (postoperative nausea and vomiting) 016 07/25/2016 Trigger ring finger of right hand 12/15/2014 07/25/2016 Trigger middle finger of right hand 12/15/2014 07/25/2016 Chronic pelvic pain in female 01/13/2014 Acute pelvic pain, female 11/03/20132013 Right carpal tunnel syndrome 06/30/2013 Toenail deformity 04/28/2013 07/25/2016 Right hand paresthesia 04/28/2013 7 Folliculitis 04/28/2013 03/17/2015 Left ear pain 04/02/2013 03/17/2015 Bilateral acute serous otitis media 04/02/2013 03/17/2015 Abnormal uterine bleeding 08/09/20122013 Abnormality of gait 06/09/2011 03/17/2015 Routine general medical exam ination at a health care facility 01/11/2011 01/15/2012 Overview: 01/11/2011, establish care from Dr. Manning Routine gynecological examination 01/11/2011 01/15/2012 Overview: [facility] Roberto Godinez 10/04/2010 07/25/2016 Acute gastritis without mention of hemorrhage 07/01/2010 Diarrhea 05/04/2010 07/01/2010 Bacterial infection due to H. pylori 02/09/2010 07/01/2010 Epigastric pain 12/27/2009 03/17/2015 Patellofemoral disorder 03/09/2009 07/26/19 17 Sinus disorder 11/23/2008 11/12/2009 Contact dermatitis and other eczema, due to unspecified cause 07/13/2008 11/12/2009 Other malaise and fatigue 04/22/20072009 BILIARY DYSKINESIA 04/25/2006 03/17/2015 PAIN ABDOMEN( Right Upper Quadrant) 04/20/2006 05/18/2006 Personal history of colonic polyps 03/15/2006 07/01/2010 Hypertrophy of breast 01/13/2004 05/18/2006 Endometriosis 04/22/2014 Temporomandibular joint disorders, unspecified 05/18/2006 Myalgia and myositis, unspecified 11/12/2009 Hemorrhage of rectum and anus Abdominal pain, epigastric 11/12 documented as of this encounter (statuses as of 05/29/2022) [facility] of Past illness Narrative* Problem Noted Date Resolved Date Abdominal pain 02/15/2016 07/25/2016 Genital condyloma, female 09/23/20152016 PONV (postoperative nausea and vomiting) 016 07/25/2016 Trigger ring finger of right hand 12/15/2014 07/25/2016 Trigger middle finger of right hand 12/15/2014 07/25/2016 Chronic pelvic pain in female 01/13/2014 Acute pelvic pain, female 11/03/20132013 Right carpal tunnel syndrome 06/30/2013 Toenail deformity 04/28/2013 07/25/2016 Right hand paresthesia 04/28/2013 7 Folliculitis 04/28/2013 03/17/2015 Left ear pain 04/02/2013 03/17/2015 Bilateral acute serous otitis media 04/02/2013 03/17/2015 Abnormal uterine bleeding 08/09/20122013 Abnormality of gait 06/09/2011 03/17/2015 Routine general medical exam ination at a health care facility 01/11/2011 01/15/2012 Overview: 01/11/2011, establish care from Dr. Manning Routine gynecological examination 01/11/2011 01/15/2012 Overview: [facility] Roberto Godinez 10/04/2010 07/25/2016 Acute gastritis without mention of hemorrhage 07/01/2010 Diarrhea 05/04/2010 07/01/2010 Bacterial infection due to H. pylori 02/09/2010 07/01/2010 Epigastric pain 12/27/2009 03/17/2015 Patellofemoral disorder 03/09/2009 07/26/19 Sinus disorder 11/23/2008 11/12/2009 Contact dermatitis and other eczema, due to unspecified cause 07/13/2008 11/12/2009 Other malaise and fatigue 04/22/20072009 BILIARY DYSKINESIA 04/25/2006 03/17/2015 PAIN ABDOMEN( Right Upper Quadrant) 04/20/2006 05/18/2006 Personal history of colonic polyps 03/15/2006 07/01/2010 Hypertrophy of breast 01/13/2004 05/18/2006 Endometriosis 04/22/2014 Temporomandibular joint disorders, unspecified 05/18/2006 Myalgia and myositis, unspecified 11/12/2009 Hemorrhage of rectum and anus Abdominal pain, epigastric 11/12 documented as of this encounter (statuses as of 05/30/2022) [facility] of Past illness Narrative* Problem Noted Date Resolved Date Abdominal pain 02/15/2016 07/25/2016 Genital condyloma, female 09/23/20152016 PONV (postoperative nausea and vomiting) 016 07/25/2016 Trigger ring finger of right hand 12/15/2014 07/25/2016 Trigger middle finger of right hand 12/15/2014 07/25/2016 Chronic pelvic pain in female 01/13/2014 Acute pelvic pain, female 11/03/20132013 Right carpal tunnel syndrome 06/30/2013 Toenail deformity 04/28/2013 07/25/2016 Right hand paresthesia 04/28/2013 7 Folliculitis 04/28/2013 03/17/2015 Left ear pain 04/02/2013 03/17/2015 Bilateral acute serous otitis media 04/02/2013 03/17/2015 Abnormal uterine bleeding 08/09/20122013 Abnormality of gait 06/09/2011 03/17/2015 Routine general medical exam ination at a health care facility 01/11/2011 01/15/2012 Overview: 01/11/2011, establish care from Dr. Manning Routine gynecological examination 01/11/2011 01/15/2012 Overview: [facility], [facility] Roberto Kenneyrosalio 10/04/2010 07/25/2016 Acute gastritis without mention of hemorrhage 07/01/2010 Diarrhea 05/04/2010 07/01/2010 Bacterial infection due to H. pylori 02/09/2010 07/01/2010 Epigastric pain 12/27/2009 03/17/2015 Patellofemoral disorder 03/09/2009 07/26/19 17 Sinus disorder 11/23/2008 11/12/2009 Contact dermatitis and other eczema, due to unspecified cause 07/13/2008 11/12/2009 Other malaise and fatigue 04/22/20072009 BILIARY DYSKINESIA 04/25/2006 03/17/2015 PAIN ABDOMEN( Right Upper Quadrant) 04/20/2006 05/18/2006 Personal history of colonic polyps 03/15/2006 07/01/2010 Hypertrophy of breast 01/13/2004 05/18/2006 Endometriosis 04/22/2014 Temporomandibular joint disorders, unspecified 05/18/2006 Myalgia and myositis, unspecified 11/12/2009 Hemorrhage of rectum and anus Abdominal pain, epigastric 11/12 documented as of this encounter (statuses as of 05/31/2022) [facility]12-06-2016 History of Past illness Narrative* Problem Noted Date Resolved Date Abdominal pain 02/15/2016 07/25/2016 Genital condyloma, female 09/23/20152016 PONV (postoperative nausea and vomiting) 016 07/25/2016 Trigger ring finger of right hand 12/15/2014 07/25/2016 Trigger middle finger of right hand 12/15/2014 07/25/2016 Chronic pelvic pain in female 01/13/2014 Acute pelvic pain, female 11/03/20132013 Right carpal tunnel syndrome 06/30/2013 Toenail deformity 04/28/2013 07/25/2016 Right hand paresthesia 04/28/2013 7 Folliculitis 04/28/2013 03/17/2015 Left ear pain 04/02/2013 03/17/2015 Bilateral acute serous otitis media 04/02/2013 03/17/2015 Abnormal uterine bleeding 08/09/20122013 Abnormality of gait 06/09/2011 03/17/2015 Routine general medical exam ination at a health care facility 01/11/2011 01/15/2012 Overview: 01/11/2011, establish care from Dr. Manning Routine gynecological examination 01/11/2011 01/15/2012 Overview: [facility], [facility]/2016 Acute gastritis without mention of hemorrhage 07/01/2010 Diarrhea 05/04/2010 07/01/2010 Bacterial infection due to H. pylori 02/09/2010 07/01/2010 Epigastric pain 12/27/2009 03/17/2015 Patellofemoral disorder 03/09/2009 07/26/19 17 Sinus disorder 11/23/2008 11/12/2009 Contact dermatitis and other eczema, due to unspecified cause 07/13/2008 11/12/2009 Other malaise and fatigue 04/22/20072009 BILIARY DYSKINESIA 04/25/2006 03/17/2015 PAIN ABDOMEN( Right Upper Quadrant) 04/20/2006 05/18/2006 Personal history of colonic polyps 03/15/2006 07/01/2010 Hypertrophy of breast 01/13/2004 05/18/2006 Endometriosis 04/22/2014 Temporomandibular joint disorders, unspecified 05/18/2006 Myalgia and myositis, unspecified 11/12/2009 Hemorrhage of rectum and anus Abdominal pain, epigastric 11/12 documented as of this encounter (statuses as of 05/31/2022) [facility]12-06-2016 History of Past illness Narrative* Problem Noted Date Resolved Date Abdominal pain 02/15/2016 07/25/2016 Genital condyloma, female 09/23/20152016 PONV (postoperative nausea and vomiting) 016 07/25/2016 Trigger ring finger of right hand 12/15/2014 07/25/2016 Trigger middle finger of right hand 12/15/2014 07/25/2016 Chronic pelvic pain in female 01/13/2014 Acute pelvic pain, female 11/03/20132013 Right carpal tunnel syndrome 06/30/2013 Toenail deformity 04/28/2013 07/25/2016 Right hand paresthesia 04/28/2013 7 Folliculitis 04/28/2013 03/17/2015 Left ear pain 04/02/2013 03/17/2015 Bilateral acute serous otitis media 04/02/2013 03/17/2015 Abnormal uterine bleeding 08/09/20122013 Abnormality of gait 06/09/2011 03/17/2015 Routine general medical exam ination at a health care facility 01/11/2011 01/15/2012 Overview: 01/11/2011, establish care from Dr. Manning Routine gynecological examination 01/11/2011 01/15/2012 Overview: [facility] 07/25/2016 Acute gastritis without mention of hemorrhage 07/01/2010 Diarrhea 05/04/2010 07/01/2010 Bacterial infection due to H. pylori 02/09/2010 07/01/2010 Epigastric pain 12/27/2009 03/17/2015 Patellofemoral disorder 03/09/2009 07/26/19 17 Sinus disorder 11/23/2008 11/12/2009 Contact dermatitis and other eczema, due to unspecified cause 07/13/2008 11/12/2009 Other malaise and fatigue 04/22/20072009 BILIARY DYSKINESIA 04/25/2006 03/17/2015 PAIN ABDOMEN( Right Upper Quadrant) 04/20/2006 05/18/2006 Personal history of colonic polyps 03/15/2006 07/01/2010 Hypertrophy of breast 01/13/2004 05/18/2006 Endometriosis 04/22/2014 Temporomandibular joint disorders, unspecified 05/18/2006 Myalgia and myositis, unspecified 11/12/2009 Hemorrhage of rectum and anus Abdominal pain, epigastric 11/12 documented as of this encounter (statuses as of 06/05/2022) [facility]12-06-2016 History of Past illness Narrative* Problem Noted Date Resolved Date Abdominal pain 02/15/2016 07/25/2016 Genital condyloma, female 09/23/20152016 PONV (postoperative nausea and vomiting) 016 07/25/2016 Trigger ring finger of right hand 12/15/2014 07/25/2016 Trigger middle finger of right hand 12/15/2014 07/25/2016 Chronic pelvic pain in female 01/13/2014 Acute pelvic pain, female 11/03/20132013 Right carpal tunnel syndrome 06/30/2013 Toenail deformity 04/28/2013 07/25/2016 Right hand paresthesia 04/28/2013 7 Folliculitis 04/28/2013 03/17/2015 Left ear pain 04/02/2013 03/17/2015 Bilateral acute serous otitis media 04/02/2013 03/17/2015 Abnormal uterine bleeding 08/09/20122013 Abnormality of gait 06/09/2011 03/17/2015 Routine general medical exam ination at a health care facility 01/11/2011 01/15/2012 Overview: 01/11/2011, establish care from Dr. Manning Routine gynecological examination 01/11/2011 01/15/2012 Overview: [facility] Roberto Godinez 10/04/2010 07/25/2016 Acute gastritis without mention of hemorrhage 07/01/2010 Diarrhea 05/04/2010 07/01/2010 Bacterial infection due to H. pylori 02/09/2010 07/01/2010 Epigastric pain 12/27/2009 03/17/2015 Patellofemoral disorder 03/09/2009 07/26/19 17 Sinus disorder 11/23/2008 11/12/2009 Contact dermatitis and other eczema, due to unspecified cause 07/13/2008 11/12/2009 Other malaise and fatigue 04/22/20072009 BILIARY DYSKINESIA 04/25/2006 03/17/2015 PAIN ABDOMEN( Right Upper Quadrant) 04/20/2006 05/18/2006 Personal history of colonic polyps 03/15/2006 07/01/2010 Hypertrophy of breast 01/13/2004 05/18/2006 Endometriosis 04/22/2014 Temporomandibular joint disorders, unspecified 05/18/2006 Myalgia and myositis, unspecified 11/12/2009 Hemorrhage of rectum and anus Abdominal pain, epigastric 11/12 documented as of this encounter (statuses as of 06/05/2022) [facility]12-06-2016 History of Past illness Narrative* Problem Noted Date Resolved Date Abdominal pain 02/15/2016 07/25/2016 Genital condyloma, female 09/23/20152016 PONV (postoperative nausea and vomiting) 016 07/25/2016 Trigger ring finger of right hand 12/15/2014 07/25/2016 Trigger middle finger of right hand 12/15/2014 07/25/2016 Chronic pelvic pain in female 01/13/2014 Acute pelvic pain, female 11/03/20132013 Right carpal tunnel syndrome 06/30/2013 Toenail deformity 04/28/2013 07/25/2016 Right hand paresthesia 04/28/2013 7 Folliculitis 04/28/2013 03/17/2015 Left ear pain 04/02/2013 03/17/2015 Bilateral acute serous otitis media 04/02/2013 03/17/2015 Abnormal uterine bleeding 08/09/20122013 Abnormality of gait 06/09/2011 03/17/2015 Routine general medical exam ination at a health care facility 01/11/2011 01/15/2012 Overview: 01/11/2011, establish care from Dr. Manning Routine gynecological examination 01/11/2011 01/15/2012 Overview: [facility], [facility] Roberto Godinez 10/04/2010 07/25/2016 Acute gastritis without mention of hemorrhage 07/01/2010 Diarrhea 05/04/2010 07/01/2010 Bacterial infection due to H. pylori 02/09/2010 07/01/2010 Epigastric pain 12/27/2009 03/17/2015 Patellofemoral disorder 03/09/2009 07/26/19 17 Sinus disorder 11/23/2008 11/12/2009 Contact dermatitis and other eczema, due to unspecified cause 07/13/2008 11/12/2009 Other malaise and fatigue 04/22/20072009 BILIARY DYSKINESIA 04/25/2006 03/17/2015 PAIN ABDOMEN( Right Upper Quadrant) 04/20/2006 05/18/2006 Personal history of colonic polyps 03/15/2006 07/01/2010 Hypertrophy of breast 01/13/2004 05/18/2006 Endometriosis 04/22/2014 Temporomandibular joint disorders, unspecified 05/18/2006 Myalgia and myositis, unspecified 11/12/2009 Hemorrhage of rectum and anus Abdominal pain, epigastric 11/12 documented as of this encounter (statuses as of 06/07/2022) [facility]12-06-2016 History of Past illness Narrative* Problem Noted Date Resolved Date Abdominal pain 02/15/2016 07/25/2016 Genital condyloma, female 09/23/20152016 PONV (postoperative nausea and vomiting) 016 07/25/2016 Trigger ring finger of right hand 12/15/2014 07/25/2016 Trigger middle finger of right hand 12/15/2014 07/25/2016 Chronic pelvic pain in female 01/13/2014 Acute pelvic pain, female 11/03/20132013 Right carpal tunnel syndrome 06/30/2013 Toenail deformity 04/28/2013 07/25/2016 Right hand paresthesia 04/28/2013 7 Folliculitis 04/28/2013 03/17/2015 Left ear pain 04/02/2013 03/17/2015 Bilateral acute serous otitis media 04/02/2013 03/17/2015 Abnormal uterine bleeding 08/09/20122013 Abnormality of gait 06/09/2011 03/17/2015 Routine general medical exam ination at a health care facility 01/11/2011 01/15/2012 Overview: 01/11/2011, establish care from Dr. Manning Routine gynecological examination 01/11/2011 01/15/2012 Overview: [facility] Roberto Godinez 10/04/2010 07/25/2016 Acute gastritis without mention of hemorrhage 07/01/2010 Diarrhea 05/04/2010 07/01/2010 Bacterial infection due to H. pylori 02/09/2010 07/01/2010 Epigastric pain 12/27/2009 03/17/2015 Patellofemoral disorder 03/09/2009 07/26/19 17 Sinus disorder 11/23/2008 11/12/2009 Contact dermatitis and other eczema, due to unspecified cause 07/13/2008 11/12/2009 Other malaise and fatigue 04/22/20072009 BILIARY DYSKINESIA 04/25/2006 03/17/2015 PAIN ABDOMEN( Right Upper Quadrant) 04/20/2006 05/18/2006 Personal history of colonic polyps 03/15/2006 07/01/2010 Hypertrophy of breast 01/13/2004 05/18/2006 Endometriosis 04/22/2014 Temporomandibular joint disorders, unspecified 05/18/2006 Myalgia and myositis, unspecified 11/12/2009 Hemorrhage of rectum and anus Abdominal pain, epigastric 11/12 documented as of this encounter (statuses as of 06/09/2022) [facility]12-06-2016 History of Past illness Narrative* Problem Noted Date Resolved Date Abdominal pain 02/15/2016 07/25/2016 Genital condyloma, female 09/23/20152016 PONV (postoperative nausea and vomiting) 016 07/25/2016 Trigger ring finger of right hand 12/15/2014 07/25/2016 Trigger middle finger of right hand 12/15/2014 07/25/2016 Chronic pelvic pain in female 01/13/2014 Acute pelvic pain, female 11/03/20132013 Right carpal tunnel syndrome 06/30/2013 Toenail deformity 04/28/2013 07/25/2016 Right hand paresthesia 04/28/2013 7 Folliculitis 04/28/2013 03/17/2015 Left ear pain 04/02/2013 03/17/2015 Bilateral acute serous otitis media 04/02/2013 03/17/2015 Abnormal uterine bleeding 08/09/20122013 Abnormality of gait 06/09/2011 03/17/2015 Routine general medical exam ination at a health care facility 01/11/2011 01/15/2012 Overview: 01/11/2011, establish care from Dr. Manning Routine gynecological examination 01/11/2011 01/15/2012 Overview: [facility], [facility] Roberto Godinez 10/04/2010 07/25/2016 Acute gastritis without mention of hemorrhage 07/01/2010 Diarrhea 05/04/2010 07/01/2010 Bacterial infection due to H. pylori 02/09/2010 07/01/2010 Epigastric pain 12/27/2009 03/17/2015 Patellofemoral disorder 03/09/2009 07/26/19 17 Sinus disorder 11/23/2008 11/12/2009 Contact dermatitis and other eczema, due to unspecified cause 07/13/2008 11/12/2009 Other malaise and fatigue 04/22/20072009 BILIARY DYSKINESIA 04/25/2006 03/17/2015 PAIN ABDOMEN( Right Upper Quadrant) 04/20/2006 05/18/2006 Personal history of colonic polyps 03/15/2006 07/01/2010 Hypertrophy of breast 01/13/2004 05/18/2006 Endometriosis 04/22/2014 Temporomandibular joint disorders, unspecified 05/18/2006 Myalgia and myositis, unspecified 11/12/2009 Hemorrhage of rectum and anus Abdominal pain, epigastric 11/12 documented as of this encounter (statuses as of 06/09/2022) [facility]12[facility]-2016 History of Past illness Narrative* Problem Noted Date Resolved Date Abdominal pain 02/15/2016 07/25/2016 Genital condyloma, female 09/23/20152016 PONV (postoperative nausea and vomiting) 016 07/25/2016 Trigger ring finger of right hand 12/15/2014 07/25/2016 Trigger middle finger of right hand 12/15/2014 07/25/2016 Chronic pelvic pain in female 01/13/2014 Acute pelvic pain, female 11/03/20132013 Right carpal tunnel syndrome 06/30/2013 Toenail deformity 04/28/2013 07/25/2016 Right hand paresthesia 04/28/2013 7 Folliculitis 04/28/2013 03/17/2015 Left ear pain 04/02/2013 03/17/2015 Bilateral acute serous otitis media 04/02/2013 03/17/2015 Abnormal uterine bleeding 08/09/20122013 Abnormality of gait 06/09/2011 03/17/2015 Routine general medical exam ination at a health care facility 01/11/2011 01/15/2012 Overview: 01/11/2011, establish care from Dr. Manning Routine gynecological examination 01/11/2011 01/15/2012 Overview: [facility]2016 Acute gastritis without mention of hemorrhage 07/01/2010 Diarrhea 05/04/2010 07/01/2010 Bacterial infection due to H. pylori 02/09/2010 07/01/2010 Epigastric pain 12/27/2009 03/17/2015 Patellofemoral disorder 03/09/2009 07/26/19 17 Sinus disorder 11/23/2008 11/12/2009 Contact dermatitis and other eczema, due to unspecified cause 07/13/2008 11/12/2009 Other malaise and fatigue 04/22/20072009 BILIARY DYSKINESIA 04/25/2006 03/17/2015 PAIN ABDOMEN( Right Upper Quadrant) 04/20/2006 05/18/2006 Personal history of colonic polyps 03/15/2006 07/01/2010 Hypertrophy of breast 01/13/2004 05/18/2006 Endometriosis 04/22/2014 Temporomandibular joint disorders, unspecified 05/18/2006 Myalgia and myositis, unspecified 11/12/2009 Hemorrhage of rectum and anus Abdominal pain, epigastric 11/12 documented as of this encounter (statuses as of 06/10/2022) [facility]12[facility] History of Past illness Narrative* Problem Noted Date Resolved Date Abdominal pain 02/15/2016 07/25/2016 Genital condyloma, female 09/23/20152016 PONV (postoperative nausea and vomiting) 016 07/25/2016 Trigger ring finger of right hand 12/15/2014 07/25/2016 Trigger middle finger of right hand 12/15/2014 07/25/2016 Chronic pelvic pain in female 01/13/2014 Acute pelvic pain, female 11/03/20132013 Right carpal tunnel syndrome 06/30/2013 Toenail deformity 04/28/2013 07/25/2016 Right hand paresthesia 04/28/2013 7 Folliculitis 04/28/2013 03/17/2015 Left ear pain 04/02/2013 03/17/2015 Bilateral acute serous otitis media 04/02/2013 03/17/2015 Abnormal uterine bleeding 08/09/20122013 Abnormality of gait 06/09/2011 03/17/2015 Routine general medical exam ination at a health care facility 01/11/2011 01/15/2012 Overview: 01/11/2011, establish care from Dr. Manning Routine gynecological examination 01/11/2011 01/15/2012 Overview: [facility], [facility] Roberto Godinez 10/04/2010 07/25/2016 Acute gastritis without mention of hemorrhage 07/01/2010 Diarrhea 05/04/2010 07/01/2010 Bacterial infection due to H. pylori 02/09/2010 07/01/2010 Epigastric pain 12/27/2009 03/17/2015 Patellofemoral disorder 03/09/2009 07/26/19 17 Sinus disorder 11/23/2008 11/12/2009 Contact dermatitis and other eczema, due to unspecified cause 07/13/2008 11/12/2009 Other malaise and fatigue 04/22/20072009 BILIARY DYSKINESIA 04/25/2006 03/17/2015 PAIN ABDOMEN( Right Upper Quadrant) 04/20/2006 05/18/2006 Personal history of colonic polyps 03/15/2006 07/01/2010 Hypertrophy of breast 01/13/2004 05/18/2006 Endometriosis 04/22/2014 Temporomandibular joint disorders, unspecified 05/18/2006 Myalgia and myositis, unspecified 11/12/2009 Hemorrhage of rectum and anus Abdominal pain, epigastric 11/12 documented as of this encounter (statuses as of 06/12/2022) [facility] History of Past illness Narrative* Problem Noted Date Resolved Date Abdominal pain 02/15/2016 07/25/2016 Genital condyloma, female 09/23/20152016 PONV (postoperative nausea and vomiting) 016 07/25/2016 Trigger ring finger of right hand 12/15/2014 07/25/2016 Trigger middle finger of right hand 12/15/2014 07/25/2016 Chronic pelvic pain in female 01/13/2014 Acute pelvic pain, female 11/03/20132013 Right carpal tunnel syndrome 06/30/2013 Toenail deformity 04/28/2013 07/25/2016 Right hand paresthesia 04/28/2013 7 Folliculitis 04/28/2013 03/17/2015 Left ear pain 04/02/2013 03/17/2015 Bilateral acute serous otitis media 04/02/2013 03/17/2015 Abnormal uterine bleeding 08/09/20122013 Abnormality of gait 06/09/2011 03/17/2015 Routine general medical exam ination at a health care facility 01/11/2011 01/15/2012 Overview: 01/11/2011, establish care from Dr. Manning Routine gynecological examination 01/11/2011 01/15/2012 Overview: [facility], [facility] Roberto Godinez 10/04/2010 07/25/2016 Acute gastritis without mention of hemorrhage 07/01/2010 Diarrhea 05/04/2010 07/01/2010 Bacterial infection due to H. pylori 02/09/2010 07/01/2010 Epigastric pain 12/27/2009 03/17/2015 Patellofemoral disorder 03/09/2009 07/26/19 17 Sinus disorder 11/23/2008 11/12/2009 Contact dermatitis and other eczema, due to unspecified cause 07/13/2008 11/12/2009 Other malaise and fatigue 04/22/20072009 BILIARY DYSKINESIA 04/25/2006 03/17/2015 PAIN ABDOMEN( Right Upper Quadrant) 04/20/2006 05/18/2006 Personal history of colonic polyps 03/15/2006 07/01/2010 Hypertrophy of breast 01/13/2004 05/18/2006 Endometriosis 04/22/2014 Temporomandibular joint disorders, unspecified 05/18/2006 Myalgia and myositis, unspecified 11/12/2009 Hemorrhage of rectum and anus Abdominal pain, epigastric 11/12 documented as of this encounter (statuses as of 06/29/2022) [facility] History of Past illness Narrative* Problem Noted Date Resolved Date Abdominal pain 02/15/2016 07/25/2016 Genital condyloma, female 09/23/20152016 PONV (postoperative nausea and vomiting) 016 07/25/2016 Trigger ring finger of right hand 12/15/2014 07/25/2016 Trigger middle finger of right hand 12/15/2014 07/25/2016 Chronic pelvic pain in female 01/13/2014 Acute pelvic pain, female 11/03/20132013 Right carpal tunnel syndrome 06/30/2013 Toenail deformity 04/28/2013 07/25/2016 Right hand paresthesia 04/28/2013 7 Folliculitis 04/28/2013 03/17/2015 Left ear pain 04/02/2013 03/17/2015 Bilateral acute serous otitis media 04/02/2013 03/17/2015 Abnormal uterine bleeding 08/09/20122013 Abnormality of gait 06/09/2011 03/17/2015 Routine general medical exam ination at a health care facility 01/11/2011 01/15/2012 Overview: 01/11/2011, establish care from Dr. Manning Routine gynecological examination 01/11/2011 01/15/2012 Overview: [facility] Roberto Godinez 10/04/2010 07/25/2016 Acute gastritis without mention of hemorrhage 07/01/2010 Diarrhea 05/04/2010 07/01/2010 Bacterial infection due to H. pylori 02/09/2010 07/01/2010 Epigastric pain 12/27/2009 03/17/2015 Patellofemoral disorder 03/09/2009 07/26/19 17 Sinus disorder 11/23/2008 11/12/2009 Contact dermatitis and other eczema, due to unspecified cause 07/13/2008 11/12/2009 Other malaise and fatigue 04/22/20072009 BILIARY DYSKINESIA 04/25/2006 03/17/2015 PAIN ABDOMEN( Right Upper Quadrant) 04/20/2006 05/18/2006 Personal history of colonic polyps 03/15/2006 07/01/2010 Hypertrophy of breast 01/13/2004 05/18/2006 Endometriosis 04/22/2014 Temporomandibular joint disorders, unspecified 05/18/2006 Myalgia and myositis, unspecified 11/12/2009 Hemorrhage of rectum and anus Abdominal pain, epigastric 11/12 documented as of this encounter (statuses as of 06/30/2022) [facility] History of Past illness Narrative* Problem Noted Date Resolved Date Abdominal pain 02/15/2016 07/25/2016 Genital condyloma, female 09/23/20152016 PONV (postoperative nausea and vomiting) 016 07/25/2016 Trigger ring finger of right hand 12/15/2014 07/25/2016 Trigger middle finger of right hand 12/15/2014 07/25/2016 Chronic pelvic pain in female 01/13/2014 Acute pelvic pain, female 11/03/20132013 Right carpal tunnel syndrome 06/30/2013 Toenail deformity 04/28/2013 07/25/2016 Right hand paresthesia 04/28/2013 7 Folliculitis 04/28/2013 03/17/2015 Left ear pain 04/02/2013 03/17/2015 Bilateral acute serous otitis media 04/02/2013 03/17/2015 Abnormal uterine bleeding 08/09/20122013 Abnormality of gait 06/09/2011 03/17/2015 Routine general medical exam ination at a health care facility 01/11/2011 01/15/2012 Overview: 01/11/2011, establish care from Dr. Manning Routine gynecological examination 01/11/2011 01/15/2012 Overview: [facility], [facility] Roberto Godinez 10/04/2010 07/25/2016 Acute gastritis without mention of hemorrhage 07/01/2010 Diarrhea 05/04/2010 07/01/2010 Bacterial infection due to H. pylori 02/09/2010 07/01/2010 Epigastric pain 12/27/2009 03/17/2015 Patellofemoral disorder 03/09/2009 07/26/19 17 Sinus disorder 11/23/2008 11/12/2009 Contact dermatitis and other eczema, due to unspecified cause 07/13/2008 11/12/2009 Other malaise and fatigue 04/22/20072009 BILIARY DYSKINESIA 04/25/2006 03/17/2015 PAIN ABDOMEN( Right Upper Quadrant) 04/20/2006 05/18/2006 Personal history of colonic polyps 03/15/2006 07/01/2010 Hypertrophy of breast 01/13/2004 05/18/2006 Endometriosis 04/22/2014 Temporomandibular joint disorders, unspecified 05/18/2006 Myalgia and myositis, unspecified 11/12/2009 Hemorrhage of rectum and anus Abdominal pain, epigastric 11/12 documented as of this encounter (statuses as of 07/03/2022) [facility] of Past illness Narrative* Problem Noted Date Resolved Date Abdominal pain 02/15/2016 07/25/2016 Genital condyloma, female 09/23/20152016 PONV (postoperative nausea and vomiting) 016 07/25/2016 Trigger ring finger of right hand 12/15/2014 07/25/2016 Trigger middle finger of right hand 12/15/2014 07/25/2016 Chronic pelvic pain in female 01/13/2014 Acute pelvic pain, female 11/03/20132013 Right carpal tunnel syndrome 06/30/2013 Toenail deformity 04/28/2013 07/25/2016 Right hand paresthesia 04/28/2013 7 Folliculitis 04/28/2013 03/17/2015 Left ear pain 04/02/2013 03/17/2015 Bilateral acute serous otitis media 04/02/2013 03/17/2015 Abnormal uterine bleeding 08/09/20122013 Abnormality of gait 06/09/2011 03/17/2015 Routine general medical exam ination at a health care facility 01/11/2011 01/15/2012 Overview: 01/11/2011, establish care from Dr. Manning Routine gynecological examination 01/11/2011 01/15/2012 Overview: [facility]2016 Acute gastritis without mention of hemorrhage 07/01/2010 Diarrhea 05/04/2010 07/01/2010 Bacterial infection due to H. pylori 02/09/2010 07/01/2010 Epigastric pain 12/27/2009 03/17/2015 Patellofemoral disorder 03/09/2009 07/26/19 17 Sinus disorder 11/23/2008 11/12/2009 Contact dermatitis and other eczema, due to unspecified cause 07/13/2008 11/12/2009 Other malaise and fatigue 04/22/20072009 BILIARY DYSKINESIA 04/25/2006 03/17/2015 PAIN ABDOMEN( Right Upper Quadrant) 04/20/2006 05/18/2006 Personal history of colonic polyps 03/15/2006 07/01/2010 Hypertrophy of breast 01/13/2004 05/18/2006 Endometriosis 04/22/2014 Temporomandibular joint disorders, unspecified 05/18/2006 Myalgia and myositis, unspecified 11/12/2009 Hemorrhage of rectum and anus Abdominal pain, epigastric 11/12 documented as of this encounter (statuses as of 07/21/2022) [facility] of Past illness Narrative* Problem Noted Date Resolved Date Abdominal pain 02/15/2016 07/25/2016 Genital condyloma, female 09/23/20152016 PONV (postoperative nausea and vomiting) 016 07/25/2016 Trigger ring finger of right hand 12/15/2014 07/25/2016 Trigger middle finger of right hand 12/15/2014 07/25/2016 Chronic pelvic pain in female 01/13/2014 Acute pelvic pain, female 11/03/20132013 Right carpal tunnel syndrome 06/30/2013 Toenail deformity 04/28/2013 07/25/2016 Right hand paresthesia 04/28/2013 7 Folliculitis 04/28/2013 03/17/2015 Left ear pain 04/02/2013 03/17/2015 Bilateral acute serous otitis media 04/02/2013 03/17/2015 Abnormal uterine bleeding 08/09/20122013 Abnormality of gait 06/09/2011 03/17/2015 Routine general medical exam ination at a health care facility 01/11/2011 01/15/2012 Overview: 01/11/2011, establish care from Dr. Manning Routine gynecological examination 01/11/2011 01/15/2012 Overview: [facility] 07/25/2016 Acute gastritis without mention of hemorrhage 07/01/2010 Diarrhea 05/04/2010 07/01/2010 Bacterial infection due to H. pylori 02/09/2010 07/01/2010 Epigastric pain 12/27/2009 03/17/2015 Patellofemoral disorder 03/09/2009 07/26/19 17 Sinus disorder 11/23/2008 11/12/2009 Contact dermatitis and other eczema, due to unspecified cause 07/13/2008 11/12/2009 Other malaise and fatigue 04/22/20072009 BILIARY DYSKINESIA 04/25/2006 03/17/2015 PAIN ABDOMEN( Right Upper Quadrant) 04/20/2006 05/18/2006 Personal history of colonic polyps 03/15/2006 07/01/2010 Hypertrophy of breast 01/13/2004 05/18/2006 Endometriosis 04/22/2014 Temporomandibular joint disorders, unspecified 05/18/2006 Myalgia and myositis, unspecified 11/12/2009 Hemorrhage of rectum and anus Abdominal pain, epigastric 11/12 documented as of this encounter (statuses as of 07/21/2022) [facility]12-[facility]2016 History of Past illness Narrative* Problem Noted Date Resolved Date Abdominal pain 02/15/2016 07/25/2016 Genital condyloma, female 09/23/20152016 PONV (postoperative nausea and vomiting) 016 07/25/2016 Trigger ring finger of right hand 12/15/2014 07/25/2016 Trigger middle finger of right hand 12/15/2014 07/25/2016 Chronic pelvic pain in female 01/13/2014 Acute pelvic pain, female 11/03/20132013 Right carpal tunnel syndrome 06/30/2013 Toenail deformity 04/28/2013 07/25/2016 Right hand paresthesia 04/28/2013 7 Folliculitis 04/28/2013 03/17/2015 Left ear pain 04/02/2013 03/17/2015 Bilateral acute serous otitis media 04/02/2013 03/17/2015 Abnormal uterine bleeding 08/09/20122013 Abnormality of gait 06/09/2011 03/17/2015 Routine general medical exam ination at a health care facility 01/11/2011 01/15/2012 Overview: 01/11/2011, establish care from Dr. Manning Routine gynecological examination 01/11/2011 01/15/2012 Overview: [facility] Roberto Godinez 10/04/2010 07/25/2016 Acute gastritis without mention of hemorrhage 07/01/2010 Diarrhea 05/04/2010 07/01/2010 Bacterial infection due to H. pylori 02/09/2010 07/01/2010 Epigastric pain 12/27/2009 03/17/2015 Patellofemoral disorder 03/09/2009 07/26/19 17 Sinus disorder 11/23/2008 11/12/2009 Contact dermatitis and other eczema, due to unspecified cause 07/13/2008 11/12/2009 Other malaise and fatigue 04/22/20072009 BILIARY DYSKINESIA 04/25/2006 03/17/2015 PAIN ABDOMEN( Right Upper Quadrant) 04/20/2006 05/18/2006 Personal history of colonic polyps 03/15/2006 07/01/2010 Hypertrophy of breast 01/13/2004 05/18/2006 Endometriosis 04/22/2014 Temporomandibular joint disorders, unspecified 05/18/2006 Myalgia and myositis, unspecified 11/12/2009 Hemorrhage of rectum and anus Abdominal pain, epigastric 11/12 documented as of this encounter (statuses as of 08/23/2022) [facility]12[facility] History of Past illness Narrative* Problem Noted Date Resolved Date Abdominal pain 02/15/2016 07/25/2016 Genital condyloma, female 09/23/20152016 PONV (postoperative nausea and vomiting) 016 07/25/2016 Trigger ring finger of right hand 12/15/2014 07/25/2016 Trigger middle finger of right hand 12/15/2014 07/25/2016 Chronic pelvic pain in female 01/13/2014 Acute pelvic pain, female 11/03/20132013 Right carpal tunnel syndrome 06/30/2013 Toenail deformity 04/28/2013 07/25/2016 Right hand paresthesia 04/28/2013 7 Folliculitis 04/28/2013 03/17/2015 Left ear pain 04/02/2013 03/17/2015 Bilateral acute serous otitis media 04/02/2013 03/17/2015 Abnormal uterine bleeding 08/09/20122013 Abnormality of gait 06/09/2011 03/17/2015 Routine general medical exam ination at a health care facility 01/11/2011 01/15/2012 Overview: 01/11/2011, establish care from Dr. Manning Routine gynecological examination 01/11/2011 01/15/2012 Overview: [facility], [facility] Roberto Godinez 10/04/2010 07/25/2016 Acute gastritis without mention of hemorrhage 07/01/2010 Diarrhea 05/04/2010 07/01/2010 Bacterial infection due to H. pylori 02/09/2010 07/01/2010 Epigastric pain 12/27/2009 03/17/2015 Patellofemoral disorder 03/09/2009 07/26/19 17 Sinus disorder 11/23/2008 11/12/2009 Contact dermatitis and other eczema, due to unspecified cause 07/13/2008 11/12/2009 Other malaise and fatigue 04/22/20072009 BILIARY DYSKINESIA 04/25/2006 03/17/2015 PAIN ABDOMEN( Right Upper Quadrant) 04/20/2006 05/18/2006 Personal history of colonic polyps 03/15/2006 07/01/2010 Hypertrophy of breast 01/13/2004 05/18/2006 Endometriosis 04/22/2014 Temporomandibular joint disorders, unspecified 05/18/2006 Myalgia and myositis, unspecified 11/12/2009 Hemorrhage of rectum and anus Abdominal pain, epigastric 11/12 documented as of this encounter (statuses as of 09/07/2022) [facility] History of Past illness Narrative* Problem Noted Date Resolved Date Abdominal pain 02/15/2016 07/25/2016 Genital condyloma, female 09/23/20152016 PONV (postoperative nausea and vomiting) 016 07/25/2016 Trigger ring finger of right hand 12/15/2014 07/25/2016 Trigger middle finger of right hand 12/15/2014 07/25/2016 Chronic pelvic pain in female 01/13/2014 Acute pelvic pain, female 11/03/20132013 Right carpal tunnel syndrome 06/30/2013 Toenail deformity 04/28/2013 07/25/2016 Right hand paresthesia 04/28/2013 7 Folliculitis 04/28/2013 03/17/2015 Left ear pain 04/02/2013 03/17/2015 Bilateral acute serous otitis media 04/02/2013 03/17/2015 Abnormal uterine bleeding 08/09/20122013 Abnormality of gait 06/09/2011 03/17/2015 Routine general medical exam ination at a health care facility 01/11/2011 01/15/2012 Overview: 01/11/2011, establish care from Dr. Manning Routine gynecological examination 01/11/2011 01/15/2012 Overview: [facility], [facility] Roberto Godinez 10/04/2010 07/25/2016 Acute gastritis without mention of hemorrhage 07/01/2010 Diarrhea 05/04/2010 07/01/2010 Bacterial infection due to H. pylori 02/09/2010 07/01/2010 Epigastric pain 12/27/2009 03/17/2015 Patellofemoral disorder 03/09/2009 07/26/19 17 Sinus disorder 11/23/2008 11/12/2009 Contact dermatitis and other eczema, due to unspecified cause 07/13/2008 11/12/2009 Other malaise and fatigue 04/22/20072009 BILIARY DYSKINESIA 04/25/2006 03/17/2015 PAIN ABDOMEN( Right Upper Quadrant) 04/20/2006 05/18/2006 Personal history of colonic polyps 03/15/2006 07/01/2010 Hypertrophy of breast 01/13/2004 05/18/2006 Endometriosis 04/22/2014 Temporomandibular joint disorders, unspecified 05/18/2006 Myalgia and myositis, unspecified 11/12/2009 Hemorrhage of rectum and anus Abdominal pain, epigastric 11/12 documented as of this encounter (statuses as of 09/08/2022) [facility] History of Past illness Narrative* Problem Noted Date Resolved Date Abdominal pain 02/15/2016 07/25/2016 Genital condyloma, female 09/23/20152016 PONV (postoperative nausea and vomiting) 016 07/25/2016 Trigger ring finger of right hand 12/15/2014 07/25/2016 Trigger middle finger of right hand 12/15/2014 07/25/2016 Chronic pelvic pain in female 01/13/2014 Acute pelvic pain, female 11/03/20132013 Right carpal tunnel syndrome 06/30/2013 Toenail deformity 04/28/2013 07/25/2016 Right hand paresthesia 04/28/2013 7 Folliculitis 04/28/2013 03/17/2015 Left ear pain 04/02/2013 03/17/2015 Bilateral acute serous otitis media 04/02/2013 03/17/2015 Abnormal uterine bleeding 08/09/20122013 Abnormality of gait 06/09/2011 03/17/2015 Routine general medical exam ination at a health care facility 01/11/2011 01/15/2012 Overview: 01/11/2011, establish care from Dr. Manning Routine gynecological examination 01/11/2011 01/15/2012 Overview: [facility]2016 Acute gastritis without mention of hemorrhage 07/01/2010 Diarrhea 05/04/2010 07/01/2010 Bacterial infection due to H. pylori 02/09/2010 07/01/2010 Epigastric pain 12/27/2009 03/17/2015 Patellofemoral disorder 03/09/2009 07/26/19 17 Sinus disorder 11/23/2008 11/12/2009 Contact dermatitis and other eczema, due to unspecified cause 07/13/2008 11/12/2009 Other malaise and fatigue 04/22/20072009 BILIARY DYSKINESIA 04/25/2006 03/17/2015 PAIN ABDOMEN( Right Upper Quadrant) 04/20/2006 05/18/2006 Personal history of colonic polyps 03/15/2006 07/01/2010 Hypertrophy of breast 01/13/2004 05/18/2006 Endometriosis 04/22/2014 Temporomandibular joint disorders, unspecified 05/18/2006 Myalgia and myositis, unspecified 11/12/2009 Hemorrhage of rectum and anus Abdominal pain, epigastric 11/12 documented as of this encounter (statuses as of 09/08/2022) [facility] History of Past illness Narrative* Problem Noted Date Diagnosed Date Resolved Date Abdominal pain 02/15/2016 07/25/2016 Genital condyloma, female 09/23/2015 PONV (postoperative nausea and vomiting) 03/17/2015 07/25/2016 Trigger ring finger of right hand 12/15/2014 07/25/2016 Trigger middle finger of right hand 12/15/2014 07/25/2016 Chronic pelvic pain in female 01/13/2014 04/22/2014 Acute pelvic pain, female 11/03/2013 Right carpal tunnel syndrome 06/30/2013 07/25/2016 Toenail deformity 04/28/2013 07/25/2016 Right hand paresthesia 04/28/201307/25 Folliculitis 04/28/2013 03/17/2015 Left ear pain 04/02/2013 03/17/2015 Bilateral acute serous otitis media 04/02/2013 03/17/2015 Abnormal uterine bleeding 08/09/2012 Abnormality of gait 06/09/2011 03/17/19 16 Routine general medical exam ination at a health care facility 01/11/2011 01/15/2012 Overview: 01/11/2011, establish care from Dr. Manning Routine gynecological examination 01/11/2011 01/15/2012 Overview: [facility] 07/25/2016 Acute gastritis without mention of hemorrhage 05/04/19 11 07/01/2010 Diarrhea 05/04/2010 07/01/2010 Bacterial infection due to H. pylori 02/09/2010 07/01/2010 Epigastric pain 12/27/2009 03/17/2015 Patellofemoral disorder 03/09/200907/10 Sinus disorder 11/23/2008 11/12/2009 Contact dermatitis and other eczema, due to unspecified cause 07/13/2008 11/12/2009 Other malaise and fatigue 04/22/2007 BILIARY DYSKINESIA 04/25/2006 6 PAIN ABDOMEN( Right Upper Quadrant) 04/20/2006 05/18/2006 Personal history of colonic polyps 03/15/2006 07/01/2010 Hypertrophy of breast 01/13/20042006 Endometriosis 04/22/2014 Temporomandibular joint diso rders, unspecified 05/18/2006 Myalgia and myositis, unspecified 11/12/2009 Hemorrhage of rectum and anus 03/17/2015 Abdominal pain, epigastric 0 11/12/2009 documented as of this encounter (statuses as of 09/26/2022) [facility] History of Past illness Narrative* Problem Noted Date Diagnosed Date Resolved Date Abdominal pain 02/15/2016 07/25/2016 Genital condyloma, female 09/23/2015 PONV (postoperative nausea and vomiting) 03/17/2015 07/25/2016 Trigger ring finger of right hand 12/15/2014 07/25/2016 Trigger middle finger of right hand 12/15/2014 07/25/2016 Chronic pelvic pain in female 01/13/2014 04/22/2014 Acute pelvic pain, female 11/03/2013 Right carpal tunnel syndrome 06/30/2013 07/25/2016 Toenail deformity 04/28/2013 07/25/2016 Right hand paresthesia 04/28/201307/25 Folliculitis 04/28/2013 03/17/2015 Left ear pain 04/02/2013 03/17/2015 Bilateral acute serous otitis media 04/02/2013 03/17/2015 Abnormal uterine bleeding 08/09/2012 Abnormality of gait 06/09/2011 03/17/19 16 Routine general medical exam ination at a health care facility 01/11/2011 01/15/2012 Overview: 01/11/2011, establish care from Dr. Manning Routine gynecological examination 01/11/2011 01/15/2012 Overview: [facility] Roberto Godinez 10/04/2010 07/25/2016 Acute gastritis without mention of hemorrhage 05/04/19 11 07/01/2010 Diarrhea 05/04/2010 07/01/2010 Bacterial infection due to H. pylori 02/09/2010 07/01/2010 Epigastric pain 12/27/2009 03/17/2015 Patellofemoral disorder 03/09/200907/10 Sinus disorder 11/23/2008 11/12/2009 Contact dermatitis and other eczema, due to unspecified cause 07/13/2008 11/12/2009 Other malaise and fatigue 04/22/2007 BILIARY DYSKINESIA 04/25/2006 01/06/201 6 PAIN ABDOMEN( Right Upper Quadrant) 04/20/2006 05/18/2006 Personal history of colonic polyps 03/15/2006 07/01/2010 Hypertrophy of breast 01/13/20042006 Endometriosis 04/22/2014 Temporomandibular joint diso rders, unspecified 05/18/2006 Myalgia and myositis, unspecified 11/12/2009 Hemorrhage of rectum and anus 03/17/2015 Abdominal pain, epigastric 0 11/12/2009 documented as of this encounter (statuses as of 10/02/2022) [facility] History of Past illness Narrative* Problem Noted Date Diagnosed Date Resolved Date Abdominal pain 02/15/2016 07/25/2016 Genital condyloma, female 09/23/2015 PONV (postoperative nausea and vomiting) 03/17/2015 07/25/2016 Trigger ring finger of right hand 12/15/2014 07/25/2016 Trigger middle finger of right hand 12/15/2014 07/25/2016 Chronic pelvic pain in female 01/13/2014 04/22/2014 Acute pelvic pain, female 11/03/2013 Right carpal tunnel syndrome 06/30/2013 07/25/2016 Toenail deformity 04/28/2013 07/25/2016 Right hand paresthesia 04/28/201307/25 Folliculitis 04/28/2013 03/17/2015 Left ear pain 04/02/2013 03/17/2015 Bilateral acute serous otitis media 04/02/2013 03/17/2015 Abnormal uterine bleeding 08/09/2012 Abnormality of gait 06/09/2011 03/17/19 16 Routine general medical exam ination at a health care facility 01/11/2011 01/15/2012 Overview: 01/11/2011, establish care from Dr. Manning Routine gynecological examination 01/11/2011 01/15/2012 Overview: [facility] Roberto Godinez 10/04/2010 07/25/2016 Acute gastritis without mention of hemorrhage 05/04/19 11 07/01/2010 Diarrhea 05/04/2010 07/01/2010 Bacterial infection due to H. pylori 02/09/2010 07/01/2010 Epigastric pain 12/27/2009 03/17/2015 Patellofemoral disorder 03/09/200907/10 Sinus disorder 11/23/2008 11/12/2009 Contact dermatitis and other eczema, due to unspecified cause 07/13/2008 11/12/2009 Other malaise and fatigue 04/22/2007 BILIARY DYSKINESIA 04/25/2006 6 PAIN ABDOMEN( Right Upper Quadrant) 04/20/2006 05/18/2006 Personal history of colonic polyps 03/15/2006 07/01/2010 Hypertrophy of breast 01/13/20042006 Endometriosis 04/22/2014 Temporomandibular joint diso rders, unspecified 05/18/2006 Myalgia and myositis, unspecified 11/12/2009 Hemorrhage of rectum and anus 03/17/2015 Abdominal pain, epigastric 0 11/12/2009 documented as of this encounter (statuses as of 10/17/2022) [facility] History of Past illness Narrative* Problem Noted Date Diagnosed Date Resolved Date Abdominal pain 02/15/2016 07/25/2016 Genital condyloma, female 09/23/2015 PONV (postoperative nausea and vomiting) 03/17/2015 07/25/2016 Trigger ring finger of right hand 12/15/2014 07/25/2016 Trigger middle finger of right hand 12/15/2014 07/25/2016 Chronic pelvic pain in female 01/13/2014 04/22/2014 Acute pelvic pain, female 11/03/2013 Right carpal tunnel syndrome 06/30/2013 07/25/2016 Toenail deformity 04/28/2013 07/25/2016 Right hand paresthesia 04/28/201307/25 Folliculitis 04/28/2013 03/17/2015 Left ear pain 04/02/2013 03/17/2015 Bilateral acute serous otitis media 04/02/2013 03/17/2015 Abnormal uterine bleeding 08/09/2012 Abnormality of gait 06/09/2011 03/17/19 16 Routine general medical exam ination at a health care facility 01/11/2011 01/15/2012 Overview: 01/11/2011, establish care from Dr. Manning Routine gynecological examination 01/11/2011 01/15/2012 Overview: [facility] Roberto Godinez 10/04/2010 07/25/2016 Acute gastritis without mention of hemorrhage 05/04/19 11 07/01/2010 Diarrhea 05/04/2010 07/01/2010 Bacterial infection due to H. pylori 02/09/2010 07/01/2010 Epigastric pain 12/27/2009 03/17/2015 Patellofemoral disorder 03/09/200907/10 Sinus disorder 11/23/2008 11/12/2009 Contact dermatitis and other eczema, due to unspecified cause 07/13/2008 11/12/2009 Other malaise and fatigue 04/22/2007 BILIARY DYSKINESIA 04/25/2006 6 PAIN ABDOMEN( Right Upper Quadrant) 04/20/2006 05/18/2006 Personal history of colonic polyps 03/15/2006 07/01/2010 Hypertrophy of breast 01/13/20042006 Endometriosis 04/22/2014 Temporomandibular joint diso rders, unspecified 05/18/2006 Myalgia and myositis, unspecified 11/12/2009 Hemorrhage of rectum and anus 03/17/2015 Abdominal pain, epigastric 0 11/12/2009 documented as of this encounter (statuses as of 10/19/2022) [facility] of Past illness Narrative* Problem Noted Date Diagnosed Date Resolved Date Abdominal pain 02/15/2016 07/25/2016 Genital condyloma, female 09/23/2015 PONV (postoperative nausea and vomiting) 03/17/2015 07/25/2016 Trigger ring finger of right hand 12/15/2014 07/25/2016 Trigger middle finger of right hand 12/15/2014 07/25/2016 Chronic pelvic pain in female 01/13/2014 04/22/2014 Acute pelvic pain, female 11/03/2013 Right carpal tunnel syndrome 06/30/2013 07/25/2016 Toenail deformity 04/28/2013 07/25/2016 Right hand paresthesia 04/28/201307/25 Folliculitis 04/28/2013 03/17/2015 Left ear pain 04/02/2013 03/17/2015 Bilateral acute serous otitis media 04/02/2013 03/17/2015 Abnormal uterine bleeding 08/09/2012 Abnormality of gait 06/09/2011 03/17/19 16 Routine general medical exam ination at a health care facility 01/11/2011 01/15/2012 Overview: 01/11/2011, establish care from Dr. Manning Routine gynecological examination 01/11/2011 01/15/2012 Overview: [facility], [facility] Roberto Godinez 10/04/2010 07/25/2016 Acute gastritis without mention of hemorrhage 05/04/19 11 07/01/2010 Diarrhea 05/04/2010 07/01/2010 Bacterial infection due to H. pylori 02/09/2010 07/01/2010 Epigastric pain 12/27/2009 03/17/2015 Patellofemoral disorder 03/09/200907/10 Sinus disorder 11/23/2008 11/12/2009 Contact dermatitis and other eczema, due to unspecified cause 07/13/2008 11/12/2009 Other malaise and fatigue 04/22/2007 BILIARY DYSKINESIA 04/25/2006 6 PAIN ABDOMEN( Right Upper Quadrant) 04/20/2006 05/18/2006 Personal history of colonic polyps 03/15/2006 07/01/2010 Hypertrophy of breast 01/13/20042006 Endometriosis 04/22/2014 Temporomandibular joint diso rders, unspecified 05/18/2006 Myalgia and myositis, unspecified 11/12/2009 Hemorrhage of rectum and anus 03/17/2015 Abdominal pain, epigastric 0 11/12/2009 documented as of this encounter (statuses as of 12/15/2022) [facility] of Past illness Narrative* Problem Noted Date Diagnosed Date Resolved Date Abdominal pain 02/15/2016 07/25/2016 Genital condyloma, female 09/23/2015 PONV (postoperative nausea and vomiting) 03/17/2015 07/25/2016 Trigger ring finger of right hand 12/15/2014 07/25/2016 Trigger middle finger of right hand 12/15/2014 07/25/2016 Chronic pelvic pain in female 01/13/2014 04/22/2014 Acute pelvic pain, female 11/03/2013 Right carpal tunnel syndrome 06/30/2013 07/25/2016 Toenail deformity 04/28/2013 07/25/2016 Right hand paresthesia 04/28/201307/25 Folliculitis 04/28/2013 03/17/2015 Left ear pain 04/02/2013 03/17/2015 Bilateral acute serous otitis media 04/02/2013 03/17/2015 Abnormal uterine bleeding 08/09/2012 Abnormality of gait 06/09/2011 03/17/19 16 Routine general medical exam ination at a health care facility 01/11/2011 01/15/2012 Overview: 01/11/2011, establish care from Dr. Manning Routine gynecological examination 01/11/2011 01/15/2012 Overview: [facility] 07/25/2016 Acute gastritis without mention of hemorrhage 05/04/19 11 07/01/2010 Diarrhea 05/04/2010 07/01/2010 Bacterial infection due to H. pylori 02/09/2010 07/01/2010 Epigastric pain 12/27/2009 03/17/2015 Patellofemoral disorder 03/09/200907/10 Sinus disorder 11/23/2008 11/12/2009 Contact dermatitis and other eczema, due to unspecified cause 07/13/2008 11/12/2009 Other malaise and fatigue 04/22/2007 BILIARY DYSKINESIA 04/25/2006 6 PAIN ABDOMEN( Right Upper Quadrant) 04/20/2006 05/18/2006 Personal history of colonic polyps 03/15/2006 07/01/2010 Hypertrophy of breast 01/13/20042006 Endometriosis 04/22/2014 Temporomandibular joint diso rders, unspecified 05/18/2006 Myalgia and myositis, unspecified 11/12/2009 Hemorrhage of rectum and anus 03/17/2015 Abdominal pain, epigastric 0 11/12/2009 documented as of this encounter (statuses as of 12/19/2022) [facility] of Past illness Narrative* Problem Noted Date Diagnosed Date Resolved Date Abdominal pain 02/15/2016 07/25/2016 Genital condyloma, female 09/23/2015 PONV (postoperative nausea and vomiting) 03/17/2015 07/25/2016 Trigger ring finger of right hand 12/15/2014 07/25/2016 Trigger middle finger of right hand 12/15/2014 07/25/2016 Chronic pelvic pain in female 01/13/2014 04/22/2014 Acute pelvic pain, female 11/03/2013 Right carpal tunnel syndrome 06/30/2013 07/25/2016 Toenail deformity 04/28/2013 07/25/2016 Right hand paresthesia 04/28/201307/25 Folliculitis 04/28/2013 03/17/2015 Left ear pain 04/02/2013 03/17/2015 Bilateral acute serous otitis media 04/02/2013 03/17/2015 Abnormal uterine bleeding 08/09/2012 Abnormality of gait 06/09/2011 03/17/19 16 Routine general medical exam ination at a health care facility 01/11/2011 01/15/2012 Overview: 01/11/2011, establish care from Dr. Manning Routine gynecological examination 01/11/2011 01/15/2012 Overview: [facility] Roberto Godinez 10/04/2010 07/25/2016 Acute gastritis without mention of hemorrhage 05/04/19 11 07/01/2010 Diarrhea 05/04/2010 07/01/2010 Bacterial infection due to H. pylori 02/09/2010 07/01/2010 Epigastric pain 12/27/2009 03/17/2015 Patellofemoral disorder 03/09/200907/10 Sinus disorder 11/23/2008 11/12/2009 Contact dermatitis and other eczema, due to unspecified cause 07/13/2008 11/12/2009 Other malaise and fatigue 04/22/2007 BILIARY DYSKINESIA 04/25/2006 6 PAIN ABDOMEN( Right Upper Quadrant) 04/20/2006 05/18/2006 Personal history of colonic polyps 03/15/2006 07/01/2010 Hypertrophy of breast 01/13/20042006 Endometriosis 04/22/2014 Temporomandibular joint diso rders, unspecified 05/18/2006 Myalgia and myositis, unspecified 11/12/2009 Hemorrhage of rectum and anus 03/17/2015 Abdominal pain, epigastric 0 11/12/2009 documented as of this encounter (statuses as of 04/13/2023) [facility] of Past illness Narrative* Problem Noted Date Diagnosed Date Resolved Date Abdominal pain 02/15/2016 07/25/2016 Genital condyloma, female 09/23/2015 PONV (postoperative nausea and vomiting) 03/17/2015 07/25/2016 Trigger ring finger of right hand 12/15/2014 07/25/2016 Trigger middle finger of right hand 12/15/2014 07/25/2016 Chronic pelvic pain in female 01/13/2014 04/22/2014 Acute pelvic pain, female 11/03/2013 Right carpal tunnel syndrome 06/30/2013 07/25/2016 Toenail deformity 04/28/2013 07/25/2016 Right hand paresthesia 04/28/201307/25 Folliculitis 04/28/2013 03/17/2015 Left ear pain 04/02/2013 03/17/2015 Bilateral acute serous otitis media 04/02/2013 03/17/2015 Abnormal uterine bleeding 08/09/2012 Abnormality of gait 06/09/2011 03/17/19 16 Routine general medical exam ination at a health care facility 01/11/2011 01/15/2012 Overview: 01/11/2011, establish care from Dr. Manning Routine gynecological examination 01/11/2011 01/15/2012 Overview: [facility] Roberto Godinez 10/04/2010 07/25/2016 Acute gastritis without mention of hemorrhage 05/04/19 11 07/01/2010 Diarrhea 05/04/2010 07/01/2010 Bacterial infection due to H. pylori 02/09/2010 07/01/2010 Epigastric pain 12/27/2009 03/17/2015 Patellofemoral disorder 03/09/200907/10 Sinus disorder 11/23/2008 11/12/2009 Contact dermatitis and other eczema, due to unspecified cause 07/13/2008 11/12/2009 Other malaise and fatigue 04/22/2007 BILIARY DYSKINESIA 04/25/2006 6 PAIN ABDOMEN( Right Upper Quadrant) 04/20/2006 05/18/2006 Personal history of colonic polyps 03/15/2006 07/01/2010 Hypertrophy of breast 01/13/20042006 Endometriosis 04/22/2014 Temporomandibular joint diso rders, unspecified 05/18/2006 Myalgia and myositis, unspecified 11/12/2009 Hemorrhage of rectum and anus 03/17/2015 Abdominal pain, epigastric 0 11/12/2009 documented as of this encounter (statuses as of 2023) [facility]12-06-2016 History of Past illness Narrative* Problem Noted Date Diagnosed Date Resolved Date Abdominal pain 02/15/2016 07/25/2016 Genital condyloma, female 09/23/2015 PONV (postoperative nausea and vomiting) 03/17/2015 07/25/2016 Trigger ring finger of right hand 12/15/2014 07/25/2016 Trigger middle finger of right hand 12/15/2014 07/25/2016 Chronic pelvic pain in female 01/13/2014 04/22/2014 Acute pelvic pain, female 11/03/2013 Right carpal tunnel syndrome 06/30/2013 07/25/2016 Toenail deformity 04/28/2013 07/25/2016 Right hand paresthesia 04/28/201307/25 Folliculitis 04/28/2013 03/17/2015 Left ear pain 04/02/2013 03/17/2015 Bilateral acute serous otitis media 04/02/2013 03/17/2015 Abnormal uterine bleeding 08/09/2012 Abnormality of gait 06/09/2011 03/17/19 16 Routine general medical exam ination at a health care facility 01/11/2011 01/15/2012 Overview: 01/11/2011, establish care from Dr. Manning Routine gynecological examination 01/11/2011 01/15/2012 Overview: [facility], [facility] Roberto Godinez 10/04/2010 07/25/2016 Acute gastritis without mention of hemorrhage 05/04/19 11 07/01/2010 Diarrhea 05/04/2010 07/01/2010 Bacterial infection due to H. pylori 02/09/2010 07/01/2010 Epigastric pain 12/27/2009 03/17/2015 Patellofemoral disorder 03/09/200907/10 Sinus disorder 11/23/2008 11/12/2009 Contact dermatitis and other eczema, due to unspecified cause 07/13/2008 11/12/2009 Other malaise and fatigue 04/22/2007 BILIARY DYSKINESIA 04/25/2006 6 PAIN ABDOMEN( Right Upper Quadrant) 04/20/2006 05/18/2006 Personal history of colonic polyps 03/15/2006 07/01/2010 Hypertrophy of breast 01/13/20042006 Endometriosis 04/22/2014 Temporomandibular joint diso rders, unspecified 05/18/2006 Myalgia and myositis, unspecified 11/12/2009 Hemorrhage of rectum and anus 03/17/2015 Abdominal pain, epigastric 0 11/12/2009 documented as of this encounter (statuses as of 05/29/2023) [facility]12[facility] History of Past illness Narrative* Problem Noted Date Diagnosed Date Resolved Date Abdominal pain 02/15/2016 07/25/2016 Genital condyloma, female 09/23/2015 PONV (postoperative nausea and vomiting) 03/17/2015 07/25/2016 Trigger ring finger of right hand 12/15/2014 07/25/2016 Trigger middle finger of right hand 12/15/2014 07/25/2016 Chronic pelvic pain in female 01/13/2014 04/22/2014 Acute pelvic pain, female 11/03/2013 Right carpal tunnel syndrome 06/30/2013 07/25/2016 Toenail deformity 04/28/2013 07/25/2016 Right hand paresthesia 04/28/201307/25 Folliculitis 04/28/2013 03/17/2015 Left ear pain 04/02/2013 03/17/2015 Bilateral acute serous otitis media 04/02/2013 03/17/2015 Abnormal uterine bleeding 08/09/2012 Abnormality of gait 06/09/2011 03/17/19 16 Routine general medical exam ination at a health care facility 01/11/2011 01/15/2012 Overview: 01/11/2011, establish care from Dr. Manning Routine gynecological examination 01/11/2011 01/15/2012 Overview: [facility], [facility] Roberto Kenneymagdi 10/04/2010 07/25/2016 Acute gastritis without mention of hemorrhage 05/04/19 11 07/01/2010 Diarrhea 05/04/2010 07/01/2010 Bacterial infection due to H. pylori 02/09/2010 07/01/2010 Epigastric pain 12/27/2009 03/17/2015 Patellofemoral disorder 03/09/200907/10 Sinus disorder 11/23/2008 11/12/2009 Contact dermatitis and other eczema, due to unspecified cause 07/13/2008 11/12/2009 Other malaise and fatigue 04/22/2007 BILIARY DYSKINESIA 04/25/2006 6 PAIN ABDOMEN( Right Upper Quadrant) 04/20/2006 05/18/2006 Personal history of colonic polyps 03/15/2006 07/01/2010 Hypertrophy of breast 01/13/20042006 Endometriosis 04/22/2014 Temporomandibular joint diso rders, unspecified 05/18/2006 Myalgia and myositis, unspecified 11/12/2009 Hemorrhage of rectum and anus 03/17/2015 Abdominal pain, epigastric 0 11/12/2009 documented as of this encounter (statuses as of 05/29/2023) [facility] History of Past illness Narrative* Problem Noted Date Diagnosed Date Resolved Date Abdominal pain 02/15/2016 07/25/2016 Genital condyloma, female 09/23/2015 PONV (postoperative nausea and vomiting) 03/17/2015 07/25/2016 Trigger ring finger of right hand 12/15/2014 07/25/2016 Trigger middle finger of right hand 12/15/2014 07/25/2016 Chronic pelvic pain in female 01/13/2014 04/22/2014 Acute pelvic pain, female 11/03/2013 Right carpal tunnel syndrome 06/30/2013 07/25/2016 Toenail deformity 04/28/2013 07/25/2016 Right hand paresthesia 04/28/201307/25 Folliculitis 04/28/2013 03/17/2015 Left ear pain 04/02/2013 03/17/2015 Bilateral acute serous otitis media 04/02/2013 03/17/2015 Abnormal uterine bleeding 08/09/2012 Abnormality of gait 06/09/2011 03/17/19 16 Routine general medical exam ination at a health care facility 01/11/2011 01/15/2012 Overview: 01/11/2011, establish care from Dr. Manning Routine gynecological examination 01/11/2011 01/15/2012 Overview: [facility] 07/25/2016 Acute gastritis without mention of hemorrhage 05/04/19 11 07/01/2010 Diarrhea 05/04/2010 07/01/2010 Bacterial infection due to H. pylori 02/09/2010 07/01/2010 Epigastric pain 12/27/2009 03/17/2015 Patellofemoral disorder 03/09/200907/10 Sinus disorder 11/23/2008 11/12/2009 Contact dermatitis and other eczema, due to unspecified cause 07/13/2008 11/12/2009 Other malaise and fatigue 04/22/2007 BILIARY DYSKINESIA 04/25/2006 6 PAIN ABDOMEN( Right Upper Quadrant) 04/20/2006 05/18/2006 Personal history of colonic polyps 03/15/2006 07/01/2010 Hypertrophy of breast 01/13/20042006 Endometriosis 04/22/2014 Temporomandibular joint diso rders, unspecified 05/18/2006 Myalgia and myositis, unspecified 11/12/2009 Hemorrhage of rectum and anus 03/17/2015 Abdominal pain, epigastric 0 11/12/2009 documented as of this encounter (statuses as of 06/05/2023) [facility] History of Past illness Narrative* Problem Noted Date Diagnosed Date Resolved Date Abdominal pain 02/15/2016 07/25/2016 Genital condyloma, female 09/23/2015 PONV (postoperative nausea and vomiting) 03/17/2015 07/25/2016 Trigger ring finger of right hand 12/15/2014 07/25/2016 Trigger middle finger of right hand 12/15/2014 07/25/2016 Chronic pelvic pain in female 01/13/2014 04/22/2014 Acute pelvic pain, female 11/03/2013 Right carpal tunnel syndrome 06/30/2013 07/25/2016 Toenail deformity 04/28/2013 07/25/2016 Right hand paresthesia 04/28/201307/25 Folliculitis 04/28/2013 03/17/2015 Left ear pain 04/02/2013 03/17/2015 Bilateral acute serous otitis media 04/02/2013 03/17/2015 Abnormal uterine bleeding 08/09/2012 Abnormality of gait 06/09/2011 03/17/19 16 Routine general medical exam ination at a health care facility 01/11/2011 01/15/2012 Overview: 01/11/2011, establish care from Dr. Manning Routine gynecological examination 01/11/2011 01/15/2012 Overview: [facility] Roberto Godinez 10/04/2010 07/25/2016 Acute gastritis without mention of hemorrhage 05/04/19 11 07/01/2010 Diarrhea 05/04/2010 07/01/2010 Bacterial infection due to H. pylori 02/09/2010 07/01/2010 Epigastric pain 12/27/2009 03/17/2015 Patellofemoral disorder 03/09/200907/10 Sinus disorder 11/23/2008 11/12/2009 Contact dermatitis and other eczema, due to unspecified cause 07/13/2008 11/12/2009 Other malaise and fatigue 04/22/2007 BILIARY DYSKINESIA 04/25/2006 6 PAIN ABDOMEN( Right Upper Quadrant) 04/20/2006 05/18/2006 Personal history of colonic polyps 03/15/2006 07/01/2010 Hypertrophy of breast 01/13/20042006 Endometriosis 04/22/2014 Temporomandibular joint diso rders, unspecified 05/18/2006 Myalgia and myositis, unspecified 11/12/2009 Hemorrhage of rectum and anus 03/17/2015 Abdominal pain, epigastric 0 11/12/2009 documented as of this encounter (statuses as of 06/13/2023) [facility] [place] [facility]* Diagnosis Fatigue, unspecified type- Primary Iron deficiency Iron deficiency anemia, unspecified Borderline abnormal thyroid function test Nonspecific abnormal results of thyroid function study Perimenopausal disorder Unspecified menopausal and postmenopausal disorder Situational insomnia Transient disorder of initiating or maintaining sleep [facility] Diagnosis Itching- Primary Unspecified pruritic disorder [facility]* Diagnosis Close exposure to COVID-19 virus- Primary documented in this [facility] [place] [facility]* Diagnosis Dysuria- Primary Muscle spasm of back Other symptoms referable to back Fatigue, unspecified type Obesity, Class III, BMI 40-49.9 (morbid obesity) ([facility]) Morbid obesity Perimenopausal disorder Unspecified menopausal and postmenopausal disorder Generalized abdominal pain Abdominal pain, generalized [facility]* Diagnosis Acute cough- Primary Pleuritic pain Painful respiration Vaginal yeast infection Candidiasis of vulva and vagina [facility] Diagnosis Subacute cough- Primary Cough Acute bronchitis, unspecified organism Multiple joint pain Pain in joint, multiple sites CRP elevated Elevated C-reactive protein (CRP) Pancreatic insufficiency Other specified disease of pancreas Hiatal hernia Diaphragmatic hernia without mention of obstruction or gangrene Way's esophagus with dysplasia Way's esophagus [facility] Diagnosis Elevated BP without diagnosis of hypertension- Primary Restless legs Restless legs syndrome (RLS) Pleuritic pain Painful respiration Fatigue, unspecified type Polypharmacy Encounter for long-term (current) use of other medications Acute cough Cough Chronic cough Cough [facility]* Diagnosis Restless legs Restless legs syndrome (RLS) [facility] Diagnosis Multiple joint pain- Primary Pain in joint, multiple sites CRP elevated Elevated C-reactive protein (CRP) Fibromyalgia Mylagia and myositis, unspecified documented in this encounter [facility] [place] [facility]* Diagnosis Need for influenza vaccination- Primary Need for prophylactic vaccination and inoculation against influenza Left arm pain Pain in limb Left hand pain Pain in limb Paresthesia Disturbance of skin sensation Other chest pain Subacute cough Cough Acute bronchitis, unspecified organism Medication management Encounter for long-term (current) use of other medications documented in this encounter [facility] note* Diagnosis Carpal tunnel syndrome, left- Primary Carpal tunnel syndrome Carpal tunnel syndrome, left Carpal tunnel syndrome documented in this encounter [facility] [place] [facility]* Diagnosis Weight disorder- Primary Other symptoms concerning nutrition, metabolism, and development Abnormal weight gain Preop testing Preoperative examination, unspecified Morbid obesity with BMI of 40.0-44.9, adult (HCC) Morbid obesity Carpal tunnel syndrome, left Carpal tunnel syndrome [facility] [place] [facility] Diagnosis Obesity, Class III, BMI 40-49.9 (morbid obesity) (HCC)- Primary Morbid obesity Way's esophagus without dysplasia Way's esophagus Carpal tunnel syndrome, left Carpal tunnel syndrome documented in this encounter [facility] [place] [facility]* Diagnosis Carpal tunnel syndrome of left wrist- Primary Carpal tunnel syndrome Shoulder impingement Other affections of shoulder region, not elsewhere classified Chronic left shoulder pain Pain in joint, shoulder region Carpal tunnel syndrome, left Carpal tunnel syndrome [facility] [place] [facility]* Diagnosis Restless legs Restless legs syndrome (RLS) Carpal tunnel syndrome, left Carpal tunnel syndrome documented in this encounter [facility] note* Diagnosis No-show for appointment- Primary documented [facility] this [facility] [place] [facility]* Diagnosis Encounter for screening mammogram for breast cancer documented in this encounter [facility] [place] [facility]* Diagnosis Morbid obesity (HCC)- Primary Morbid obesity documented [facility] this [facility] [place] [facility]* Diagnosis Pre-operative examination- Primary Preoperative examination, unspecified Way's esophagus with dysplasia Way's esophagus Depressive disorder Depressive disorder, not elsewhere classified Deep vein thrombosis (DVT) of proximal vein of left lower extremity, unspecified chronicity (HCC) Hypertension, essential Unspecified essential hypertension Mild intermittent asthma without complication Unspecified asthma NNEKA (obstructive sleep apnea) Obstructive sleep apnea (adult) (pediatric) Pancreatic insufficiency Other specified disease of pancreas RLS (restless legs syndrome) Restless legs syndrome (RLS) Seizures (HCC) Other convulsions Morbid obesity (HCC) Morbid obesity documented in this [facility] [place] [facility]* Diagnosis Morbid obesity with BMI of 45.0-49.9, adult (HCC)- Primary Morbid obesity NNEKA (obstructive sleep apnea) Obstructive sleep apnea (adult) (pediatric) Gastroesophageal reflux disease, unspecified whether esophagitis present VTE (venous thromboembolism) Embolism and thrombosis of unspecified site Essential (primary) hypertension Unspecified essential hypertension Morbid obesity (HCC) Morbid obesity documented in this encounter [facility] [place] [facility]* Diagnosis S/P gastric bypass- Primary Bariatric surgery status Post-operative state Other postprocedural status documented in this encounter [facility] [place] [facility]* Diagnosis Gastroesophageal reflux disease, unspecified whether esophagitis present- Primary documented in this encounter [facility] [place] [facility]* Diagnosis Bariatric surgery status- Primary documented in this encounter [facility] [place] [facility]* Diagnosis Bariatric surgery status- Primary Dietary counseling and surveillance Dietary surveillance and counseling Morbid obesity (HCC) Morbid obesity documented [facility] this [facility] [place] [facility]* Diagnosis Class 3 obesity (HCC)- Primary Dietary counseling and surveillance Dietary surveillance and counseling Impaired intestinal absorption Unspecified intestinal malabsorption S/P gastric bypass Bariatric surgery status documented in this encounter [facility] [place] [facility]* Diagnosis History of Bernadine-en-Y gastric bypass- Primary Bariatric surgery status documented in this encounter [facility] [place] [facility]* Diagnosis Environmental allergies Other allergy, other than to medicinal agents documented in this encounter [facility] [place] [facility]* Diagnosis Environmental allergies Other allergy, other than to medicinal agents documented in this encounter [facility] [place] [facility]* Diagnosis Cough [facility]* Diagnosis NO SHOW- Primary documented in this encounter [facility] [place] [facility]* Diagnosis Environmental allergies Other allergy, other than to medicinal agents documented in this encounter [facility] [place] [facility]* Diagnosis Fatigue, unspecified type- Primary Nausea Nausea alone RUQ abdominal pain Abdominal pain, right upper quadrant Common bile duct dilation Other specified disorders of biliary tract History of Bernadine-en-Y gastric bypass Bariatric surgery status documented in this encounter [facility] [place] [facility]* Diagnosis Perimenopausal disorder Unspecified menopausal and postmenopausal disorder documented in this encounter [facility] [place] [facility]* Diagnosis Environmental allergies Other allergy, other than to medicinal agents [facility]* Diagnosis Upper abdominal pain, unspecified Bariatric surgery status Abnormal findings on diagnostic imaging of other parts of digestive tract documented in this encounter [facility] Work Phone: Evaluation note* Diagnosis Foot pain, right- Primary Pain in limb documented in this encounter [facility] [place] [facility]* Diagnosis Acute pansinusitis, recurrence not specified- Primary Otalgia of left ear Otalgia, unspecified documented in this encounter [facility] [place] [facility]* Diagnosis Perimenopausal disorder Unspecified menopausal and postmenopausal disorder documented in this encounter [facility] [place] [facility]* Diagnosis Environmental allergies Other allergy, other than to medicinal agents [facility] [place] [facility]* Diagnosis Hypoglycemia- Primary Hypoglycemia, unspecified Appetite increase Polyphagia Lightheaded Dizziness and giddiness Blood glucose labile Other abnormal glucose History of Bernadine-en-Y gastric bypass Bariatric surgery status Fatigue, unspecified type IFG (impaired fasting glucose) Impaired fasting glucose documented [facility] this encounter [facility] [place] [facility]* Diagnosis Preop examination- Primary Preoperative examination, unspecified Wolf's deformity, right Plantar fasciitis of right foot Plantar fascial fibromatosis RLS (restless legs syndrome) Restless legs syndrome (RLS) Hypertension, essential Unspecified essential hypertension Fibromyalgia Mylagia and myositis, unspecified Gastroesophageal reflux disease, esophagitis presence not specified Deep vein thrombosis (DVT) of proximal vein of left lower extremity, unspecified chronicity (HCC) Class 3 severe obesity with body mass index (BMI) of 40.0 to 44.9 in adult, unspecified obesity type, unspecified whether serious comorbidity present (HCC) Mild intermittent asthma without complication Unspecified asthma Seizures (HCC) Other convulsions NNEKA (obstructive sleep apnea) Obstructive sleep apnea (adult) (pediatric) Preop examination- Primary Preoperative examination, unspecified Gastroesophageal reflux disease, unspecified whether esophagitis present Deep vein thrombosis (DVT) of proximal vein of left lower extremity, unspecified chronicity (HCC) Pancreatic insufficiency Other specified disease of pancreas Obesity, Class III, BMI >= 40 Morbid obesity NNEKA (obstructive sleep apnea) Obstructive sleep apnea (adult) (pediatric) Mild intermittent asthma without complication Unspecified asthma Seizures (HCC) Other convulsions Acute bronchitis, unspecified organism Pre-operative examination- Primary Preoperative examination, unspecified Way's esophagus with dysplasia Way's esophagus Depressive disorder Depressive disorder, not elsewhere classified Deep vein thrombosis (DVT) of proximal vein of left lower extremity, unspecified chronicity (HCC) Hypertension, essential Unspecified essential hypertension Mild intermittent asthma without complication Unspecified asthma NNEKA (obstructive sleep apnea) Obstructive sleep apnea (adult) (pediatric) Pancreatic insufficiency Other specified disease of pancreas RLS (restless legs syndrome) Restless legs syndrome (RLS) Seizures (HCC) Other convulsions Foot pain, right Pain in limb documented in this encounter [facility] note* Diagnosis Preop examination- Primary Preoperative examination, unspecified Wolf's deformity, right Plantar fasciitis of right foot Plantar fascial fibromatosis RLS (restless legs syndrome) Restless legs syndrome (RLS) Hypertension, essential Unspecified essential hypertension Fibromyalgia Mylagia and myositis, unspecified Gastroesophageal reflux disease, esophagitis presence not specified Deep vein thrombosis (DVT) of proximal vein of left lower extremity, unspecified chronicity (HCC) Class 3 severe obesity with body mass index (BMI) of 40.0 to 44.9 in adult, unspecified obesity type, unspecified whether serious comorbidity present (HCC) Mild intermittent asthma without complication Unspecified asthma Seizures (HCC) Other convulsions NNEKA (obstructive sleep apnea) Obstructive sleep apnea (adult) (pediatric) Preop examination- Primary Preoperative examination, unspecified Gastroesophageal reflux disease, unspecified whether esophagitis present Deep vein thrombosis (DVT) of proximal vein of left lower extremity, unspecified chronicity (HCC) Pancreatic insufficiency Other specified disease of pancreas Obesity, Class III, BMI >= 40 Morbid obesity NNEKA (obstructive sleep apnea) Obstructive sleep apnea (adult) (pediatric) Mild intermittent asthma without complication Unspecified asthma Seizures (HCC) Other convulsions Acute bronchitis, unspecified organism Pre-operative examination- Primary Preoperative examination, unspecified Way's esophagus with dysplasia Way's esophagus Depressive disorder Depressive disorder, not elsewhere classified Deep vein thrombosis (DVT) of proximal vein of left lower extremity, unspecified chronicity (HCC) Hypertension, essential Unspecified essential hypertension Mild intermittent asthma without complication Unspecified asthma NNEKA (obstructive sleep apnea) Obstructive sleep apnea (adult) (pediatric) Pancreatic insufficiency Other specified disease of pancreas RLS (restless legs syndrome) Restless legs syndrome (RLS) Seizures (HCC) Other convulsions Otalgia, right- Primary documented in this encounter [facility] note* Diagnosis Preop examination- Primary Preoperative examination, unspecified Wolf's deformity, right Plantar fasciitis of right foot Plantar fascial fibromatosis RLS (restless legs syndrome) Restless legs syndrome (RLS) Hypertension, essential Unspecified essential hypertension Fibromyalgia Mylagia and myositis, unspecified Gastroesophageal reflux disease, esophagitis presence not specified Deep vein thrombosis (DVT) of proximal vein of left lower extremity, unspecified chronicity (HCC) Class 3 severe obesity with body mass index (BMI) of 40.0 to 44.9 in adult, unspecified obesity type, unspecified whether serious comorbidity present (HCC) Mild intermittent asthma without complication Unspecified asthma Seizures (HCC) Other convulsions NNEKA (obstructive sleep apnea) Obstructive sleep apnea (adult) (pediatric) Acute cough Preop examination- Primary Preoperative examination, unspecified Gastroesophageal reflux disease, unspecified whether esophagitis present Deep vein thrombosis (DVT) of proximal vein of left lower extremity, unspecified chronicity (HCC) Pancreatic insufficiency Other specified disease of pancreas Obesity, Class III, BMI >= 40 Morbid obesity NNEKA (obstructive sleep apnea) Obstructive sleep apnea (adult) (pediatric) Mild intermittent asthma without complication Unspecified asthma Seizures (HCC) Other convulsions Acute bronchitis, unspecified organism Pre-operative examination- Primary Preoperative examination, unspecified Way's esophagus with dysplasia Way's esophagus Depressive disorder Depressive disorder, not elsewhere classified Deep vein thrombosis (DVT) of proximal vein of left lower extremity, unspecified chronicity (HCC) Hypertension, essential Unspecified essential hypertension Mild intermittent asthma without complication Unspecified asthma NNEKA (obstructive sleep apnea) Obstructive sleep apnea (adult) (pediatric) Pancreatic insufficiency Other specified disease of pancreas RLS (restless legs syndrome) Restless legs syndrome (RLS) Seizures (HCC) Other convulsions [facility] Diagnosis Preop examination- Primary Preoperative examination, unspecified Wolf's deformity, right Plantar fasciitis of right foot Plantar fascial fibromatosis RLS (restless legs syndrome) Restless legs syndrome (RLS) Hypertension, essential Unspecified essential hypertension Fibromyalgia Mylagia and myositis, unspecified Gastroesophageal reflux disease, esophagitis presence not specified Deep vein thrombosis (DVT) of proximal vein of left lower extremity, unspecified chronicity (HCC) Class 3 severe obesity with body mass index (BMI) of 40.0 to 44.9 in adult, unspecified obesity type, unspecified whether serious comorbidity present (HCC) Mild intermittent asthma without complication Unspecified asthma Seizures (HCC) Other convulsions NNEKA (obstructive sleep apnea) Obstructive sleep apnea (adult) (pediatric) Left arm pain Pain in limb Left hand pain Pain in limb Paresthesia Disturbance of skin sensation Preop examination- Primary Preoperative examination, unspecified Gastroesophageal reflux disease, unspecified whether esophagitis present Deep vein thrombosis (DVT) of proximal vein of left lower extremity, unspecified chronicity (HCC) Pancreatic insufficiency Other specified disease of pancreas Obesity, Class III, BMI >= 40 Morbid obesity NNEKA (obstructive sleep apnea) Obstructive sleep apnea (adult) (pediatric) Mild intermittent asthma without complication Unspecified asthma Seizures (HCC) Other convulsions Acute bronchitis, unspecified organism Pre-operative examination- Primary Preoperative examination, unspecified Way's esophagus with dysplasia Way's esophagus Depressive disorder Depressive disorder, not elsewhere classified Deep vein thrombosis (DVT) of proximal vein of left lower extremity, unspecified chronicity (HCC) Hypertension, essential Unspecified essential hypertension Mild intermittent asthma without complication Unspecified asthma NNEKA (obstructive sleep apnea) Obstructive sleep apnea (adult) (pediatric) Pancreatic insufficiency Other specified disease of pancreas RLS (restless legs syndrome) Restless legs syndrome (RLS) Seizures (HCC) Other convulsions [facility] Diagnosis Preop examination- Primary Preoperative examination, unspecified Wolf's deformity, right Plantar fasciitis of right foot Plantar fascial fibromatosis RLS (restless legs syndrome) Restless legs syndrome (RLS) Hypertension, essential Unspecified essential hypertension Fibromyalgia Mylagia and myositis, unspecified Gastroesophageal reflux disease, esophagitis presence not specified Deep vein thrombosis (DVT) of proximal vein of left lower extremity, unspecified chronicity (HCC) Class 3 severe obesity with body mass index (BMI) of 40.0 to 44.9 in adult, unspecified obesity type, unspecified whether serious comorbidity present (HCC) Mild intermittent asthma without complication Unspecified asthma Seizures (HCC) Other convulsions NNEKA (obstructive sleep apnea) Obstructive sleep apnea (adult) (pediatric) Left hip pain Pain in joint, pelvic region and thigh Acute left-sided low back pain without sciatica Preop examination- Primary Preoperative examination, unspecified Gastroesophageal reflux disease, unspecified whether esophagitis present Deep vein thrombosis (DVT) of proximal vein of left lower extremity, unspecified chronicity (HCC) Pancreatic insufficiency Other specified disease of pancreas Obesity, Class III, BMI >= 40 Morbid obesity NNEKA (obstructive sleep apnea) Obstructive sleep apnea (adult) (pediatric) Mild intermittent asthma without complication Unspecified asthma Seizures (HCC) Other convulsions Acute bronchitis, unspecified organism Pre-operative examination- Primary Preoperative examination, unspecified Way's esophagus with dysplasia Way's esophagus Depressive disorder Depressive disorder, not elsewhere classified Deep vein thrombosis (DVT) of proximal vein of left lower extremity, unspecified chronicity (HCC) Hypertension, essential Unspecified essential hypertension Mild intermittent asthma without complication Unspecified asthma NNEKA (obstructive sleep apnea) Obstructive sleep apnea (adult) (pediatric) Pancreatic insufficiency Other specified disease of pancreas RLS (restless legs syndrome) Restless legs syndrome (RLS) Seizures (HCC) Other convulsions [facility] Diagnosis Preop examination- Primary Preoperative examination, unspecified Wolf's deformity, right Plantar fasciitis of right foot Plantar fascial fibromatosis RLS (restless legs syndrome) Restless legs syndrome (RLS) Hypertension, essential Unspecified essential hypertension Fibromyalgia Mylagia and myositis, unspecified Gastroesophageal reflux disease, esophagitis presence not specified Deep vein thrombosis (DVT) of proximal vein of left lower extremity, unspecified chronicity (HCC) Class 3 severe obesity with body mass index (BMI) of 40.0 to 44.9 in adult, unspecified obesity type, unspecified whether serious comorbidity present (HCC) Mild intermittent asthma without complication Unspecified asthma Seizures (HCC) Other convulsions NNEKA (obstructive sleep apnea) Obstructive sleep apnea (adult) (pediatric) Shortness of breath Chest tightness Other chest pain Post-COVID chronic cough Preop examination- Primary Preoperative examination, unspecified Gastroesophageal reflux disease, unspecified whether esophagitis present Deep vein thrombosis (DVT) of proximal vein of left lower extremity, unspecified chronicity (HCC) Pancreatic insufficiency Other specified disease of pancreas Obesity, Class III, BMI >= 40 Morbid obesity NNEKA (obstructive sleep apnea) Obstructive sleep apnea (adult) (pediatric) Mild intermittent asthma without complication Unspecified asthma Seizures (HCC) Other convulsions Acute bronchitis, unspecified organism Pre-operative examination- Primary Preoperative examination, unspecified Way's esophagus with dysplasia Way's esophagus Depressive disorder Depressive disorder, not elsewhere classified Deep vein thrombosis (DVT) of proximal vein of left lower extremity, unspecified chronicity (HCC) Hypertension, essential Unspecified essential hypertension Mild intermittent asthma without complication Unspecified asthma NNEKA (obstructive sleep apnea) Obstructive sleep apnea (adult) (pediatric) Pancreatic insufficiency Other specified disease of pancreas RLS (restless legs syndrome) Restless legs syndrome (RLS) Seizures (HCC) Other convulsions [facility] [place] Diagnosis Preop examination- Primary Preoperative examination, unspecified Wolf's deformity, right Plantar fasciitis of right foot Plantar fascial fibromatosis RLS (restless legs syndrome) Restless legs syndrome (RLS) Hypertension, essential Unspecified essential hypertension Fibromyalgia Mylagia and myositis, unspecified Gastroesophageal reflux disease, esophagitis presence not specified Deep vein thrombosis (DVT) of proximal vein of left lower extremity, unspecified chronicity (HCC) Class 3 severe obesity with body mass index (BMI) of 40.0 to 44.9 in adult, unspecified obesity type, unspecified whether serious comorbidity present (HCC) Mild intermittent asthma without complication Unspecified asthma Seizures (HCC) Other convulsions NNEKA (obstructive sleep apnea) Obstructive sleep apnea (adult) (pediatric) Left elbow pain Pain in joint, upper arm Preop examination- Primary Preoperative examination, unspecified Gastroesophageal reflux disease, unspecified whether esophagitis present Deep vein thrombosis (DVT) of proximal vein of left lower extremity, unspecified chronicity (HCC) Pancreatic insufficiency Other specified disease of pancreas Obesity, Class III, BMI >= 40 Morbid obesity NNEKA (obstructive sleep apnea) Obstructive sleep apnea (adult) (pediatric) Mild intermittent asthma without complication Unspecified asthma Seizures (HCC) Other convulsions Acute bronchitis, unspecified organism Pre-operative examination- Primary Preoperative examination, unspecified Way's esophagus with dysplasia Way's esophagus Depressive disorder Depressive disorder, not elsewhere classified Deep vein thrombosis (DVT) of proximal vein of left lower extremity, unspecified chronicity (HCC) Hypertension, essential Unspecified essential hypertension Mild intermittent asthma without complication Unspecified asthma NNEKA (obstructive sleep apnea) Obstructive sleep apnea (adult) (pediatric) Pancreatic insufficiency Other specified disease of pancreas RLS (restless legs syndrome) Restless legs syndrome (RLS) Seizures (HCC) Other convulsions documented in this encounter [facility] note* Diagnosis Preop examination- Primary Preoperative examination, unspecified Wolf's deformity, right Plantar fasciitis of right foot Plantar fascial fibromatosis RLS (restless legs syndrome) Restless legs syndrome (RLS) Hypertension, essential Unspecified essential hypertension Fibromyalgia Mylagia and myositis, unspecified Gastroesophageal reflux disease, esophagitis presence not specified Deep vein thrombosis (DVT) of proximal vein of left lower extremity, unspecified chronicity (HCC) Class 3 severe obesity with body mass index (BMI) of 40.0 to 44.9 in adult, unspecified obesity type, unspecified whether serious comorbidity present (HCC) Mild intermittent asthma without complication Unspecified asthma Seizures (HCC) Other convulsions NNEKA (obstructive sleep apnea) Obstructive sleep apnea (adult) (pediatric) Preop examination- Primary Preoperative examination, unspecified Gastroesophageal reflux disease, unspecified whether esophagitis present Deep vein thrombosis (DVT) of proximal vein of left lower extremity, unspecified chronicity (HCC) Pancreatic insufficiency Other specified disease of pancreas Obesity, Class III, BMI >= 40 Morbid obesity NNEKA (obstructive sleep apnea) Obstructive sleep apnea (adult) (pediatric) Mild intermittent asthma without complication Unspecified asthma Seizures (HCC) Other convulsions Acute bronchitis, unspecified organism Pre-operative examination- Primary Preoperative examination, unspecified Wya's esophagus with dysplasia Way's esophagus Depressive disorder Depressive disorder, not elsewhere classified Deep vein thrombosis (DVT) of proximal vein of left lower extremity, unspecified chronicity (HCC) Hypertension, essential Unspecified essential hypertension Mild intermittent asthma without complication Unspecified asthma NNEKA (obstructive sleep apnea) Obstructive sleep apnea (adult) (pediatric) Pancreatic insufficiency Other specified disease of pancreas RLS (restless legs syndrome) Restless legs syndrome (RLS) Seizures (HCC) Other convulsions Perimenopausal disorder Unspecified menopausal and postmenopausal disorder [facility] Outpatient Procedure (Routine) - Pending Review Specialty Diagnoses / Procedures Referred By Alvina ross [facility] Diagnoses Acute cough Pleuritic pain Procedures ECG COMPLETE ECG ROUTINE ECG W/LEAST 12 LDS W/I&R Silva Sweeney APRN.CNP [address] [place] [address] [facility] [address] [place] [id number] Referral ID Status Reason Start Date Expiration Date Visits Requested Visits Authorized [id number] Pending Review Auto-Generat ed Referral 12/05/2021 12/05/2022 1 1 [facility] for referral (narrative)* Outpatient Procedure (Routine) - Closed Specialty Diagnoses / Procedures Referred By Contac t Referred To [facility] Diagnoses Other chest pain Procedures ECG COMPLETE ECG ROUTINE ECG W/LEAST 12 LDS W/I&R Tang Olguin DO [address] [place] [address] [facility] [address] [place] [address] Referral ID Status Reason Start Date Expiration Date V isits Requested Visits Authorized [id number] Closed Auto-Generate d Referral 02/17/2022 02/17/2023 1 1 * Consult, Test, Treat (Routine) - Authorized Specialty Diagnoses / Procedures Referred By Contac t Referred To Contact Orthopedics Diagnoses Left arm pain Left hand pain Paresthesia Procedures CONSULT TO ORTHOPAEDICS OFFICE/OUTPATIENT [facility] 60-74 MINUTES Tang Olguin DO [address] [place] [address] Referral ID Status Reason Start Date Expiration Date Visits Requested Visits Authorized [id number] Authorized PCP Requested Referral 02/17/2022 02/17/2023 1 1 * Diagnostic Procedure Only (Routine) - Closed Specialty Diagnoses / Procedures Referred By Contac t Referred To Contact XR IMAGING Diagnoses Left arm pain Left hand pain Paresthesia Procedures XR CERV OTHER 4V AP/LAT/OBL RADEX SPINE CERVICAL 4 OR 5 VIEWS Tang Olguin DO [address] [place] [address] [facility] Referral ID Status Reason Start Date Expiration Date V isits Requested Visits Authorized [id number] Closed Auto-Generate d Referral 02/17/2022 03/19/2023 1 1 [facility] Diagnostic Procedure Only (Routine) - Pending Review Specialty Diagnoses / Procedures Referred By Contac t Referred To Contact BR [facility] Diagnoses Encounter for screening mammogram for breast cancer Procedures KAVIN SCREENING SCREENING MAMMOGRAPHY BI 2-VIEW BREAST INC CAD Tang Olguin DO [address] [place] [address] [facility] [address] [place] [address] Referral ID Status Reason Start Date Expiration Date Visits Requested Visits Authorized [id number] Pending Review Auto-Generat ed Referral 04/26/2022 05/26/2023 1 1 [facility] for referral (narrative)* Diagnostic Procedure Only (Urgent) - Closed Specialty Diagnoses / Procedures Referred By Contac t Referred To Contact XR IMAGING Diagnoses Foot pain, right Procedures XR FOOT GENERAL 3V AP/LAT/OBL RIGHT RADEX FOOT COMPLETE MINIMUM 3 VIEWS [facility] [address] [place] [address] [place] [address] Referral ID Status Reason Start Date Expiration Date V isits Requested Visits Authorized [id number] Closed Auto-Generate d Referral 04/13/2023 05/12/2024 1 1 [facility] for referral (narrative)* Diagnostic Procedure Only (Urgent) - Closed Specialty Diagnoses / Procedures Referred By Contac t Referred To Contact XR IMAGING Diagnoses Foot pain, right Procedures XR FOOT GENERAL 3V AP/LAT/OBL RIGHT RADEX FOOT COMPLETE MINIMUM 3 VIEWS [facility] [address] [place] [address] [place] [address] Referral ID Status Reason Start Date Expiration Date V isits Requested Visits Authorized [id number] Closed Auto-Generate d Referral 04/13/2023 05/12/2024 1 1 [facility] for referral (narrative)* Diagnostic Procedure Only (Routine) - Closed Specialty Diagnoses / Procedures Referred By Contac t Referred To Contact XR IMAGING Diagnoses Left arm pain Left hand pain Paresthesia Procedures XR CERV OTHER 4V AP/LAT/OBL RADEX SPINE CERVICAL 4 OR 5 VIEWS Tang Olguin DO [address] [place] [address] [place] [address] Referral ID Status Reason Start Date Expiration Date V isits Requested Visits Authorized [id number] Closed Auto-Generate d Referral 02/17/2022 03/19/2023 1 1 [facility] for referral (narrative)* Diagnostic Procedure Only (Routine) - Closed Specialty Diagnoses / Procedures Referred By Contac t Referred To Contact XR IMAGING Diagnoses Left hip pain Acute left-sided low back pain without sciatica Procedures XR HIP 2V AP/LAT LEFT (AK,FL,ME) RADEX HIP UNILATERAL WITH PELVIS 2-3 VIEWS Tang Olguin, DO [address] [place] [address] [place] [address] Referral ID Status Reason Start Date Expiration Date V isits Requested Visits Authorized [id number] Closed Auto-Generate d Referral 03/18/2021 04/17/2022 1 1 * Diagnostic Procedure Only (Routine) - Closed Specialty Diagnoses / Procedures Referred By Contac t Referred To Contact XR IMAGING Diagnoses Left hip pain Acute left-sided low back pain without sciatica Procedures XR LUMBAR GENERAL 3V AP/LAT/L5-S1 X-RAY L-S SPINE AP/LATERAL Tang Olguin, DO [address] [place] [address] [place] [address] Referral ID Status Reason Start Date Expiration Date V isits Requested Visits Authorized [id number] Closed Auto-Generate d Referral 03/18/2021 04/17/2022 1 1 * Diagnostic Procedure Only (Routine) - Closed Specialty Diagnoses / Procedures Referred By Contac t Referred To Contact XR IMAGING Diagnoses Left hip pain Acute left-sided low back pain without sciatica Procedures XR HIP GENERAL 3V PELV/AP/LAT RIGHT RADEX HIP UNILATERAL WITH PELVIS 2-3 VIEWS Tang Olguin, DO [address] [place] [address] [place] [address] Referral ID Status Reason Start Date Expiration Date V isits Requested Visits Authorized [id number] Closed Auto-Generate d Referral 03/18/2021 04/17/2022 1 1 [facility] for visit Narrative* Diagnostic Procedure Only (Urgent) - Closed Specialty Diagnoses / Procedures Referred By Contac t Referred To Contact XR IMAGING Diagnoses Foot pain, right Procedures XR FOOT GENERAL 3V AP/LAT/OBL RIGHT RADEX FOOT COMPLETE MINIMUM 3 VIEWS [facility] [address] [place] [address] [place] [address] Referral ID Status Reason Start Date Expiration Date V isits Requested Visits Authorized [id number] Closed Auto-Generate d Referral 04/13/2023 05/12/2024 1 1 [facility] for visit Narrative* Diagnostic Procedure Only (Routine) - Closed Specialty Diagnoses / Procedures Referred By Contac t Referred To Contact XR IMAGING Diagnoses Left arm pain Left hand pain Paresthesia Procedures XR CERV OTHER 4V AP/LAT/OBL RADEX SPINE CERVICAL 4 OR 5 VIEWS Tang Olguin DO [address] [place] [address] [place] [address] Referral ID Status Reason Start Date Expiration Date V isits Requested Visits Authorized [id number] Closed Auto-Generate d Referral 02/17/2022 03/19/2023 1 1 [facility] for visit Narrative* Diagnostic Procedure Only (Routine) - Closed Specialty Diagnoses / Procedures Referred By Contac t Referred To Contact XR IMAGING Diagnoses Left hip pain Acute left-sided low back pain without sciatica Procedures XR LUMBAR GENERAL 3V AP/LAT/L5-S1 X-RAY L-S SPINE AP/LATERAL Tang Olguin, DO [address] [place] [address] [place] [address] Referral ID Status Reason Start Date Expiration Date V isits Requested Visits Authorized [id number] Closed Auto-Generate d Referral 03/18/2021 04/17/2022 1 1 [facility] Summary Purpose Family History No Family History Records FoundNo Family History Records FoundNo Family History Records FoundNo Family History Records FoundNo Family History Records FoundNo Family History Records Found Advance Directives No Advanced Directives Records FoundDocuments on File Type Date Recorded 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 Author Type: Anesthesiologist Type: Anesthesia Procedure Notes Filed: 10/28/2019 9:34 AM Note Text: ANESTHESIOLOGY PROCEDURE NOTE Peripheral Nerve Block General Information Procedure Start Time/Medication Administration: 10/28/2019 8:24 AM Procedure End time: 10/28/2019 8:45 AM Patient location during procedure: pre-op Timeout Performed Pre-procedure: timeout performed Consent Obtained: Yes Patient identity confirmed: patient Reason for block: post-op pain management/at surgeon's request Staffing Anesthesiologist: Herb Altamirano Performed by: anesthesiologist Preparation Sterility Preparation: hand hygiene performed prior to procedure, surgical cap used, mask used, sterile drape used during line insertion, skin prep agent completely dried prior to procedure Sterility Technique Not Completely Performed Due to Extreme Emergency: No Site Prep: Duraprep Pre-Procedure Neuro Exam Location: RLE Sensory: intact Motor: intact Procedure Details Michelle (more content not included)... Note HNO ID: [id number] Author: Arcelia Bolanos Service: ? Author Type: Nurse A Operator Type: Anesthesia Procedure Notes Filed: 10/28/2019 9:38 AM Note Text: ANESTHESIOLOGY PROCEDURE NOTE Airway General Information Procedure Start Time/Medication Administration: 10/28/2019 9:16 AM Patient location during procedure: OR Patient identity confirmed: arm band and patient Staffing Anesthesiologist: Herb Altamirano [employer]: Noemy Bolanos Performed by: NATACHA Indications and Patient Condition Preoxygenated: yes Patient position: sniffing Manual In-Line Stabilization: No Difficult Mask: Yes Indications for airway management: anesthesia anesthesia circuit Method: asleep Cricoid Pressure: No Airway Accessory: oral airway Final Airway Details Final airway type: endotracheal airway Final Endotracheal Airway: ETT Cuffed: yes Devices used: Glidescope Endotracheal tube insertion site: oral Blade size: #4 ETT size (mm): 7.0 Measured from: lips Measurement (cm): 21 Placement verified by: chest a (more content not included)... Note HNO ID: [id number] Author: Mandy Altamirano Service: ? Author Type: Anesthesiologist Type: Anesthesia Procedure Notes Filed: 10/28/2019 3:01 PM Note Text: ANESTHESIOLOGY PROCEDURE NOTE Peripheral Nerve Block General Information Procedure Start Time/Medication Administration: 10/28/2019 2:37 PM Patient location during procedure: PACU Timeout Performed Pre-procedure: timeout performed Consent Obtained: Yes Patient identity confirmed: arm band and patient Reason for block: post-op pain management/at surgeon's request Staffing Anesthesiologist: Nick Tripathi Performed by: anesthesiologist Preparation Sterility Preparation: hand hygiene performed prior to procedure, surgical cap used, mask used, sterile drape used during line insertion, skin prep agent completely dried prior to procedure Site Prep: Duraprep Pre- Procedure Neuro Exam Location: RLE Procedure Details Patient Position: left lateral decubitus Monitoring: Pulse OX, NIBP and EKG Block Type Lower Extremity: popliteal Approach: pop (more content not included)... Health Concerns Infection Onset Date Last Indicated Resolved Time COVID-19 Rule-Out 08/23/2021 08/23/2021 Infection Onset Date Last Indicated Resolved Time COVID-19 Rule-Out 02/09/2022 02/09/2022 02/10/2022 8:16 AM EST Reason for Referral Specialty Diagnoses / Procedures Referred By Alvina ross Referred To Contact Rheumatology Diagnoses Multiple joint pain CRP elevated Procedures CONSULT TO RHEUM/IMMUN DISEASE OFFICE/OUTPATIENT FOR[facility]LY [facility] MDM 60-74 MINUTES Tang Olguin DO [address] [place] [address] Referral ID Status Reason Start Date Expiration Date Visits Requested Visits Authorized [id number] Authorized PCP Requested Referral 2 12/27/2022 1 1 Specialty Diagnoses / Procedures Referred By Alvina ross Referred To Contact Diagnoses Sánchez Waddell APRN.EVALUATION MANAGER [address] [place] [address] Referral ID Status Reason Start Date Expiration Date Visits Re quested Visits Authorized [id number] Closed 1 1 Medications Administered Section Inactive Administered Medications - up to 3 most recent administrations Medication Order MAR Action Action Date Dose Rate Site NaCl 0.9% 1,000 mL INTRAVENOUS, at 500 mL/hr, Administer over 2 Hours, ONCE, 1 dose, On Sun05/31/22 at 0930 New Bag/Syringe/Bottle 05/31/2022 9:05 AM EDT 500 mL/hr Additional Source Comments INFORMATION SOURCE (unrecogn ized section and content) DATE CREATED AUTHOR 10/27/2018 [facility] DATE CREATED AUTHOR AUTHOR'S ORGANIZ ATION 11/04/2019 [facility] DATE CREATED AUTHOR AUTHOR'S ORGANIZ ATION 04/04/2022 [facility] DATE CREATED AUTHOR AUTHOR'S ORGANIZ ATION 11/15/2022 [facility] DATE CREATED AUTHOR AUTHOR'S ORGANIZ ATION 12/07/2023 [facility] DATE CREATED AUTHOR AUTHOR'S ORGANIZ ATION 12/31/2023 [facility] Source Comments (unrecognize d section and content) In the event this informatio n is protected by the Federal Confidentiality of Alcohol and Drug Abuse Patient Records regulations: The Federal rules restrict any use of the information to criminally investigate or prosecute any alcohol or drug abuse patient.[facility] the event this information is protected by the Federal Confidentiality of Alcohol and Drug Abuse Patient Records regulations: The Federal rules restrict any use of the information to criminally investigate or prosecute any alcohol or drug abuse patient.[facility] CenterIn the event this information is protected by the Federal Confidentiality of Alcohol and Drug Abuse Patient Records regulations: The Federal rules restrict any use of the information to criminally investigate or prosecute any alcohol or drug abuse patient.[facility] CenterIn the event this information is protected by the Federal Confidentiality of Alcohol and Drug Abuse Patient Records regulations: The Federal rules restrict any use of the information to criminally investigate or prosecute any alcohol or drug abuse patient.[facility] CenterIn the event this information is protected by the Federal Confidentiality of Alcohol and Drug Abuse Patient Records regulations: The Federal rules restrict any use of the information to criminally investigate or prosecute any alcohol or drug abuse patient.[facility] CenterIn the event this information is protected by the Federal Confidentiality of Alcohol and Drug Abuse Patient Records regulations: The Federal rules restrict any use of the information to criminally investigate or prosecute any alcohol or drug abuse patient.[facility] CenterIn the event this information is protected by the Federal Confidentiality of Alcohol and Drug Abuse Patient Records regulations: The Federal rules restrict any use of the information to criminally investigate or prosecute any alcohol or drug abuse patient.[facility] CenterIn the event this information is protected by the Federal Confidentiality of Alcohol and Drug Abuse Patient Records regulations: The Federal rules restrict any use of the information to criminally investigate or prosecute any alcohol or drug abuse patient.[facility] CenterIn the event this information is protected by the Federal Confidentiality of Alcohol and Drug Abuse Patient Records regulations: The Federal rules restrict any use of the information to criminally investigate or prosecute any alcohol or drug abuse patient.[facility] CenterIn the event this information is protected by the Federal Confidentiality of Alcohol and Drug Abuse Patient Records regulations: The Federal rules restrict any use of the information to criminally investigate or prosecute any alcohol or drug abuse patient.[facility] CenterIn the event this information is protected by the Federal Confidentiality of Alcohol and Drug Abuse Patient Records regulations: The Federal rules restrict any use of the information to criminally investigate or prosecute any alcohol or drug abuse patient.[facility] CenterIn the event this information is protected by the Federal Confidentiality of Alcohol and Drug Abuse Patient Records regulations: The Federal rules restrict any use of the information to criminally investigate or prosecute any alcohol or drug abuse patient.[facility] CenterIn the event this information is protected by the Federal Confidentiality of Alcohol and Drug Abuse Patient Records regulations: The Federal rules restrict any use of the information to criminally investigate or prosecute any alcohol or drug abuse patient.[facility] CenterIn the event this information is protected by the Federal Confidentiality of Alcohol and Drug Abuse Patient Records regulations: The Federal rules restrict any use of the information to criminally investigate or prosecute any alcohol or drug abuse patient.[facility] CenterIn the event this information is protected by the Federal Confidentiality of Alcohol and Drug Abuse Patient Records regulations: The Federal rules restrict any use of the information to criminally investigate or prosecute any alcohol or drug abuse patient.[facility] CenterIn the event this information is protected by the Federal Confidentiality of Alcohol and Drug Abuse Patient Records regulations: The Federal rules restrict any use of the information to criminally investigate or prosecute any alcohol or drug abuse patient.[facility] CenterIn the event this information is protected by the Federal Confidentiality of Alcohol and Drug Abuse Patient Records regulations: The Federal rules restrict any use of the information to criminally investigate or prosecute any alcohol or drug abuse patient.[facility] CenterIn the event this information is protected by the Federal Confidentiality of Alcohol and Drug Abuse Patient Records regulations: The Federal rules restrict any use of the information to criminally investigate or prosecute any alcohol or drug abuse patient.[facility] CenterIn the event this information is protected by the Federal Confidentiality of Alcohol and Drug Abuse Patient Records regulations: The Federal rules restrict any use of the information to criminally investigate or prosecute any alcohol or drug abuse patient.[facility] CenterIn the event this information is protected by the Federal Confidentiality of Alcohol and Drug Abuse Patient Records regulations: The Federal rules restrict any use of the information to criminally investigate or prosecute any alcohol or drug abuse patient.[facility] CenterIn the event this information is protected by the Federal Confidentiality of Alcohol and Drug Abuse Patient Records regulations: The Federal rules restrict any use of the information to criminally investigate or prosecute any alcohol or drug abuse patient.[facility] CenterIn the event this information is protected by the Federal Confidentiality of Alcohol and Drug Abuse Patient Records regulations: The Federal rules restrict any use of the information to criminally investigate or prosecute any alcohol or drug abuse patient.[facility] CenterIn the event this information is protected by the Federal Confidentiality of Alcohol and Drug Abuse Patient Records regulations: The Federal rules restrict any use of the information to criminally investigate or prosecute any alcohol or drug abuse patient.[facility] CenterIn the event this information is protected by the Federal Confidentiality of Alcohol and Drug Abuse Patient Records regulations: The Federal rules restrict any use of the information to criminally investigate or prosecute any alcohol or drug abuse patient.[facility] CenterIn the event this information is protected by the Federal Confidentiality of Alcohol and Drug Abuse Patient Records regulations: The Federal rules restrict any use of the information to criminally investigate or prosecute any alcohol or drug abuse patient.[facility] CenterIn the event this information is protected by the Federal Confidentiality of Alcohol and Drug Abuse Patient Records regulations: The Federal rules restrict any use of the information to criminally investigate or prosecute any alcohol or drug abuse patient.[facility] CenterIn the event this information is protected by the Federal Confidentiality of Alcohol and Drug Abuse Patient Records regulations: The Federal rules restrict any use of the information to criminally investigate or prosecute any alcohol or drug abuse patient.[facility] CenterIn the event this information is protected by the Federal Confidentiality of Alcohol and Drug Abuse Patient Records regulations: The Federal rules restrict any use of the information to criminally investigate or prosecute any alcohol or drug abuse patient.[facility] CenterIn the event this information is protected by the Federal Confidentiality of Alcohol and Drug Abuse Patient Records regulations: The Federal rules restrict any use of the information to criminally investigate or prosecute any alcohol or drug abuse patient.[facility] CenterIn the event this information is protected by the Federal Confidentiality of Alcohol and Drug Abuse Patient Records regulations: The Federal rules restrict any use of the information to criminally investigate or prosecute any alcohol or drug abuse patient.[facility] CenterIn the event this information is protected by the Federal Confidentiality of Alcohol and Drug Abuse Patient Records regulations: The Federal rules restrict any use of the information to criminally investigate or prosecute any alcohol or drug abuse patient.[facility] CenterIn the event this information is protected by the Federal Confidentiality of Alcohol and Drug Abuse Patient Records regulations: The Federal rules restrict any use of the information to criminally investigate or prosecute any alcohol or drug abuse patient.[facility] CenterIn the event this information is protected by the Federal Confidentiality of Alcohol and Drug Abuse Patient Records regulations: The Federal rules restrict any use of the information to criminally investigate or prosecute any alcohol or drug abuse patient.[facility] CenterIn the event this information is protected by the Federal Confidentiality of Alcohol and Drug Abuse Patient Records regulations: The Federal rules restrict any use of the information to criminally investigate or prosecute any alcohol or drug abuse patient.[facility] CenterIn the event this information is protected by the Federal Confidentiality of Alcohol and Drug Abuse Patient Records regulations: The Federal rules restrict any use of the information to criminally investigate or prosecute any alcohol or drug abuse patient.[facility] CenterIn the event this information is protected by the Federal Confidentiality of Alcohol and Drug Abuse Patient Records regulations: The Federal rules restrict any use of the information to criminally investigate or prosecute any alcohol or drug abuse patient.[facility] CenterIn the event this information is protected by the Federal Confidentiality of Alcohol and Drug Abuse Patient Records regulations: The Federal rules restrict any use of the information to criminally investigate or prosecute any alcohol or drug abuse patient.[facility] CenterIn the event this information is protected by the Federal Confidentiality of Alcohol and Drug Abuse Patient Records regulations: The Federal rules restrict any use of the information to criminally investigate or prosecute any alcohol or drug abuse patient.[facility] CenterIn the event this information is protected by the Federal Confidentiality of Alcohol and Drug Abuse Patient Records regulations: The Federal rules restrict any use of the information to criminally investigate or prosecute any alcohol or drug abuse patient.[facility] CenterIn the event this information is protected by the Federal Confidentiality of Alcohol and Drug Abuse Patient Records regulations: The Federal rules restrict any use of the information to criminally investigate or prosecute any alcohol or drug abuse patient.[facility] CenterIn the event this information is protected by the Federal Confidentiality of Alcohol and Drug Abuse Patient Records regulations: The Federal rules restrict any use of the information to criminally investigate or prosecute any alcohol or drug abuse patient.[facility] CenterIn the event this information is protected by the Federal Confidentiality of Alcohol and Drug Abuse Patient Records regulations: The Federal rules restrict any use of the information to criminally investigate or prosecute any alcohol or drug abuse patient.[facility] CenterIn the event this information is protected by the Federal Confidentiality of Alcohol and Drug Abuse Patient Records regulations: The Federal rules restrict any use of the information to criminally investigate or prosecute any alcohol or drug abuse patient.[facility] CenterIn the event this information is protected by the Federal Confidentiality of Alcohol and Drug Abuse Patient Records regulations: The Federal rules restrict any use of the information to criminally investigate or prosecute any alcohol or drug abuse patient.[facility] CenterIn the event this information is protected by the Federal Confidentiality of Alcohol and Drug Abuse Patient Records regulations: The Federal rules restrict any use of the information to criminally investigate or prosecute any alcohol or drug abuse patient.[facility] CenterIn the event this information is protected by the Federal Confidentiality of Alcohol and Drug Abuse Patient Records regulations: The Federal rules restrict any use of the information to criminally investigate or prosecute any alcohol or drug abuse patient.[facility] CenterIn the event this information is protected by the Federal Confidentiality of Alcohol and Drug Abuse Patient Records regulations: The Federal rules restrict any use of the information to criminally investigate or prosecute any alcohol or drug abuse patient.[facility] CenterIn the event this information is protected by the Federal Confidentiality of Alcohol and Drug Abuse Patient Records regulations: The Federal rules restrict any use of the information to criminally investigate or prosecute any alcohol or drug abuse patient.[facility] CenterIn the event this information is protected by the Federal Confidentiality of Alcohol and Drug Abuse Patient Records regulations: The Federal rules restrict any use of the information to criminally investigate or prosecute any alcohol or drug abuse patient.[facility] CenterIn the event this information is protected by the Federal Confidentiality of Alcohol and Drug Abuse Patient Records regulations: The Federal rules restrict any use of the information to criminally investigate or prosecute any alcohol or drug abuse patient.[facility] CenterIn the event this information is protected by the Federal Confidentiality of Alcohol and Drug Abuse Patient Records regulations: The Federal rules restrict any use of the information to criminally investigate or prosecute any alcohol or drug abuse patient.[facility] CenterIn the event this information is protected by the Federal Confidentiality of Alcohol and Drug Abuse Patient Records regulations: The Federal rules restrict any use of the information to criminally investigate or prosecute any alcohol or drug abuse patient.[facility] CenterIn the event this information is protected by the Federal Confidentiality of Alcohol and Drug Abuse Patient Records regulations: The Federal rules restrict any use of the information to criminally investigate or prosecute any alcohol or drug abuse patient.[facility] CenterIn the event this information is protected by the Federal Confidentiality of Alcohol and Drug Abuse Patient Records regulations: The Federal rules restrict any use of the information to criminally investigate or prosecute any alcohol or drug abuse patient.[facility] CenterIn the event this information is protected by the Federal Confidentiality of Alcohol and Drug Abuse Patient Records regulations: The Federal rules restrict any use of the information to criminally investigate or prosecute any alcohol or drug abuse patient.[facility] CenterIn the event this information is protected by the Federal Confidentiality of Alcohol and Drug Abuse Patient Records regulations: The Federal rules restrict any use of the information to criminally investigate or prosecute any alcohol or drug abuse patient.[facility] CenterIn the event this information is protected by the Federal Confidentiality of Alcohol and Drug Abuse Patient Records regulations: The Federal rules restrict any use of the information to criminally investigate or prosecute any alcohol or drug abuse patient.[facility] CenterIn the event this information is protected by the Federal Confidentiality of Alcohol and Drug Abuse Patient Records regulations: The Federal rules restrict any use of the information to criminally investigate or prosecute any alcohol or drug abuse patient.[facility] CenterIn the event this information is protected by the Federal Confidentiality of Alcohol and Drug Abuse Patient Records regulations: The Federal rules restrict any use of the information to criminally investigate or prosecute any alcohol or drug abuse patient.[facility] CenterIn the event this information is protected by the Federal Confidentiality of Alcohol and Drug Abuse Patient Records regulations: The Federal rules restrict any use of the information to criminally investigate or prosecute any alcohol or drug abuse patient.[facility] CenterIn the event this information is protected by the Federal Confidentiality of Alcohol and Drug Abuse Patient Records regulations: The Federal rules restrict any use of the information to criminally investigate or prosecute any alcohol or drug abuse patient.[facility] CenterIn the event this information is protected by the Federal Confidentiality of Alcohol and Drug Abuse Patient Records regulations: The Federal rules restrict any use of the information to criminally investigate or prosecute any alcohol or drug abuse patient.[facility] CenterIn the event this information is protected by the Federal Confidentiality of Alcohol and Drug Abuse Patient Records regulations: The Federal rules restrict any use of the information to criminally investigate or prosecute any alcohol or drug abuse patient.[facility] CenterIn the event this information is protected by the Federal Confidentiality of Alcohol and Drug Abuse Patient Records regulations: The Federal rules restrict any use of the information to criminally investigate or prosecute any alcohol or drug abuse patient.[facility] CenterIn the event this information is protected by the Federal Confidentiality of Alcohol and Drug Abuse Patient Records regulations: The Federal rules restrict any use of the information to criminally investigate or prosecute any alcohol or drug abuse patient.[facility] CenterIn the event this information is protected by the Federal Confidentiality of Alcohol and Drug Abuse Patient Records regulations: The Federal rules restrict any use of the information to criminally investigate or prosecute any alcohol or drug abuse patient.[facility] CenterIn the event this information is protected by the Federal Confidentiality of Alcohol and Drug Abuse Patient Records regulations: The Federal rules restrict any use of the information to criminally investigate or prosecute any alcohol or drug abuse patient.[facility] CenterIn the event this information is protected by the Federal Confidentiality of Alcohol and Drug Abuse Patient Records regulations: The Federal rules restrict any use of the information to criminally investigate or prosecute any alcohol or drug abuse patient.[facility] CenterIn the event this information is protected by the Federal Confidentiality of Alcohol and Drug Abuse Patient Records regulations: The Federal rules restrict any use of the information to criminally investigate or prosecute any alcohol or drug abuse patient.[facility] CenterIn the event this information is protected by the Federal Confidentiality of Alcohol and Drug Abuse Patient Records regulations: The Federal rules restrict any use of the information to criminally investigate or prosecute any alcohol or drug abuse patient.[facility] CenterIn the event this information is protected by the Federal Confidentiality of Alcohol and Drug Abuse Patient Records regulations: The Federal rules restrict any use of the information to criminally investigate or prosecute any alcohol or drug abuse patient.[facility] CenterIn the event this information is protected by the Federal Confidentiality of Alcohol and Drug Abuse Patient Records regulations: The Federal rules restrict any use of the information to criminally investigate or prosecute any alcohol or drug abuse patient.[facility] CenterIn the event this information is protected by the Federal Confidentiality of Alcohol and Drug Abuse Patient Records regulations: The Federal rules restrict any use of the information to criminally investigate or prosecute any alcohol or drug abuse patient.[facility] CenterIn the event this information is protected by the Federal Confidentiality of Alcohol and Drug Abuse Patient Records regulations: The Federal rules restrict any use of the information to criminally investigate or prosecute any alcohol or drug abuse patient.[facility] Medical CenterIn the event this information is protected by the Federal Confidentiality of Alcohol and Drug Abuse Patient Records regulations: The Federal rules restrict any use of the information to criminally investigate or prosecute any alcohol or drug abuse patient.[facility] Center[facility] the event this information is protected by the Federal Confidentiality of Alcohol and Drug Abuse Patient Records regulations: The Federal rules restrict any use of the information to criminally investigate or prosecute any alcohol or drug abuse patient.[facility] Center[facility] the event this information is protected by the Federal Confidentiality of Alcohol and Drug Abuse Patient Records regulations: The Federal rules restrict any use of the information to criminally investigate or prosecute any alcohol or drug abuse patient.[facility] CenterIn the event this information is protected by the Federal Confidentiality of Alcohol and Drug Abuse Patient Records regulations: The Federal rules restrict any use of the information to criminally investigate or prosecute any alcohol or drug abuse patient.[facility] CenterIn the event this information is protected by the Federal Confidentiality of Alcohol and Drug Abuse Patient Records regulations: The Federal rules restrict any use of the information to criminally investigate or prosecute any alcohol or drug abuse patient.[facility] CenterIn the event this information is protected by the Federal Confidentiality of Alcohol and Drug Abuse Patient Records regulations: The Federal rules restrict any use of the information to criminally investigate or prosecute any alcohol or drug abuse patient.[facility] CenterIn the event this information is protected by the Federal Confidentiality of Alcohol and Drug Abuse Patient Records regulations: The Federal rules restrict any use of the information to criminally investigate or prosecute any alcohol or drug abuse patient.[facility] CenterIn the event this information is protected by the Federal Confidentiality of Alcohol and Drug Abuse Patient Records regulations: The Federal rules restrict any use of the information to criminally investigate or prosecute any alcohol or drug abuse patient.[facility] CenterIn the event this information is protected by the Federal Confidentiality of Alcohol and Drug Abuse Patient Records regulations: The Federal rules restrict any use of the information to criminally investigate or prosecute any alcohol or drug abuse patient.[facility] Reason for Visit (unrecogniz ed section and content) Reason Comments Depression states been more dep ressed and fatigued Medication Follow-up Reason Comments Results Reason Comments Rash on arm, back, and fa ce started last night Reason Comments Itching Reason Comments Chest Congestion cough, bodyaches and sinus pressure x 3 days, boyfriend + covid on thurs Reason Comments Follow Up Reason Comments Future Appointment today 12-05-21 Reason Comments Cough Reason Comments Follow Up 2 months Reason Comments Hypertension Reason Onset Date Comments Refill Request 01/02/2022 Reason Comments Opened In Error Reason Comments Appointment Reason Comments Consult Multiple joint pain, whole body, pain scale 8-9, aching pain, x years, just getting worse. Specialty Diagnoses / Procedures Referred By Contac t Referred To Contact Rheumatology Diagnoses Multiple joint pain CRP elevated Procedures CONSULT TO RHEUM/IMMUN DISEASE OFFICE/OUTPATIENT NEW HIGH MDM 60-74 MINUTES Tang Olguin, DO [address] [place] [address] Referral ID Status Reason Start Date Expiration Date V isits Requested Visits Authorized [id number] Closed PCP Requested Referral 12/27/2021 12/27/2022 1 1 Reason Onset Date Comments Follow Up Immunizations 02/17/2022 Flu vaccination Reason Comments Schedule Surgery Reason Comments Obesity Reason Comments Established Patient Left CTR - Wants to discuss surgery Last seen 07/15/20 Left elbow pain Reason Onset Date Comments Refill Request 03/17/2022 Reason Comments No Show Reason Comments Chest Pain Reason Comments 05/28/2022 PILAR PSEUDO DATE Reason Onset Date Comments Refill Request 05/03/2022 Reason Comments Consult Reason Comments Pre-Op Teaching Reason Comments Post Op Reason Comments Infusion Reason Comments Patient Update Reason Comments Weight Loss Surgery Reason Comments Patient Education Reassessment Reason Comments Multiple Concerns Reason Comments Reassessment Patient Education Reason Onset Date Comments Refill Request 07/20/2022 Reason Comments Refill Request Reason Onset Date Comments Refill Request 09/06/2022 Reason Onset Date Comments Refill Request 09/08/2022 Reason Comments Patient Update Patient Question Reason Comments Abdominal Pain Reason Comments Weight Check Reason Onset Date Comments Refill Request 12/18/2022 Reason Comments Other D [address]105 [id number] [id number] .[id number] Reason Comments Pain (foot) R foot pain x2 days, stepped wrong and felt sharp pain Reason Comments Ear Pain Left ear pain x 2 da ys cough Reason Comments Leg Swelling Reason Onset Date Comments Refill Request 06/05/2023 Reason Onset Date Comments Refill Request 07/01/2023 Reason Comments Follow Up possible low blood s ugar Reason Comments Weight Problem Reason Onset Date Comments Refill Request 11/12/2023 Reason Onset Date Comments Refill Request 12/04/2023 Reason Comments Head Congestion dry cough, fatigue. right ear pain x 2 weeks Reason Onset Date Comments Refill Request 12/13/2023 Reason Onset Date Comments Refill Request 12/14/2023 Care Teams (unrecognized sec tion and content) Special Education Science Teacher Relationship Specialty Start Date End Date Tang Olguin, DO [address] [place] [address] PCP - General Family Practice 10/24/12 Special Education Science Teacher Relationship Specialty Start Date End Date Tang Olguin, DO [address] [place] [address] PCP - General Family Practice 10/24/12 Special Education Science Teacher Relationship Specialty Start Date End Date Tang Olguin, DO [address] [place] [address] PCP - General Family Practice 10/24/12 Special Education Science Teacher Relationship Specialty Start Date End Date Tang Olguin, DO [address] [place] [address] PCP - General Family Practice 10/24/12 Special Education Science Teacher Relationship Specialty Start Date End Date Tang Olguin, DO [address] [place] [address] PCP - General Family Practice 10/24/12 Special Education Science Teacher Relationship Specialty Start Date End Date Tang Olguin DO [address] [place] [address] PCP - General Family Practice 10/24/12 Special Education Science Teacher Relationship Specialty Start Date End Date Tang Olguin, DO [address] [place] [address] PCP - General Family Medicine 10/24/12 Special Education Science Teacher Relationship Specialty Start Date End Date Tang Olguin, DO [address] [place] [address] PCP - General Family Medicine 10/24/12 Special Education Science Teacher Relationship Specialty Start Date End Date Tang Olguin, DO [address] [place] [address] PCP - General Family Medicine 10/24/12 Special Education Science Teacher Relationship Specialty Start Date End Date Tang Olguin, DO [address] [place] [address] PCP - General Family Medicine 10/24/12 Special Education Science Teacher Relationship Specialty Start Date End Date Tang Olguin, DO [address] [place] [address] PCP - General Family Medicine 10/24/12 Special Education Science Teacher Relationship Specialty Start Date End Date Tang Olguin, DO [address] [place] [address] PCP - General Family Medicine 10/24/12 Special Education Science Teacher Relationship Specialty Start Date End Date Tang Olguin, DO [address] [place] [address] PCP - General Family Medicine 10/24/12 Special Education Science Teacher Relationship Specialty Start Date End Date Tang Olguin, DO [address] [place] [address] PCP - General Family Medicine 10/24/12 Special Education Science Teacher Relationship Specialty Start Date End Date Tang Olguin, DO [address] [place] [address] PCP - General Family Medicine 10/24/12 Special Education Science Teacher Relationship Specialty Start Date End Date Tang Olguin, DO [address] [place] [address] PCP - General Family Medicine 10/24/12 Special Education Science Teacher Relationship Specialty Start Date End Date Tang Olguin, DO [address] [place] [place] [address] PCP - General Family Medicine 10/24/12 Special Education Science Teacher Relationship Specialty Start Date End Date Tang Olguin, DO [address] [place] [place] [address] PCP - General Family Medicine 10/24/12 Special Education Science Teacher Relationship Specialty Start Date End Date Tang Olguin, DO [address] [place] [address] PCP - General Family Medicine 10/24/12 Special Education Science Teacher Relationship Specialty Start Date End Date Tang Olguin, DO [address] [place] [place] [address] PCP - General Family Medicine 10/24/12 Special Education Science Teacher Relationship Specialty Start Date End Date Tang Olguin, DO [address] [place] [place] [address] PCP - General Family Medicine 10/24/12 Special Education Science Teacher Relationship Specialty Start Date End Date Tang Olguin, DO [address] [place] [address] PCP - General Family Medicine 10/24/12 Special Education Science Teacher Relationship Specialty Start Date End Date Tang Olguin, DO [address] [place] [address] PCP - General Family Medicine 10/24/12 Special Education Science Teacher Relationship Specialty Start Date End Date Tang Olguin, DO [address] [place] [address] PCP - General Family Medicine 10/24/12 Special Education Science Teacher Relationship Specialty Start Date End Date Tang Olguin, DO [address] [place] [address] PCP - General Family Medicine 10/24/12 Special Education Science Teacher Relationship Specialty Start Date End Date Tang Olguin, DO [address] [place] [address] PCP - General Family Medicine 10/24/12 Special Education Science Teacher Relationship Specialty Start Date End Date Tang Olguin, DO [address] [place] [address] PCP - General Family Medicine 10/24/12 Special Education Science Teacher Relationship Specialty Start Date End Date Tang Olguin, DO [address] [place] [address] PCP - General Family Medicine 10/24/12 Special Education Science Teacher Relationship Specialty Start Date End Date Tang Olguin, DO [address] [place] [address] PCP - General Family Medicine 10/24/12 Special Education Science Teacher Relationship Specialty Start Date End Date Tang Olguin, DO [address] [place] [address] PCP - General Family Medicine 10/24/12 Special Education Science Teacher Relationship Specialty Start Date End Date Tang Olguin, DO [address] [place] [address] PCP - General Family Medicine 10/24/12 Special Education Science Teacher Relationship Specialty Start Date End Date Tang Olguin, DO [address] [place] [address] PCP - General Family Medicine 10/24/12 Special Education Science Teacher Relationship Specialty Start Date End Date Tang Olguin DO [address] [place] [address] PCP - General Family Medicine 10/24/12 Special Education Science Teacher Relationship Specialty Start Date End Date Tang Olguin DO [address] [place] [address] PCP - General Family Medicine 10/24/12 Special Education Science Teacher Relationship Specialty Start Date End Date Tang Olguin DO [address] [place] [address] PCP - General Family Medicine 10/24/12 Special Education Science Teacher Relationship Specialty Start Date End Date Tang Olguin DO [address] [place] [address] PCP - General Family Medicine 10/24/12 Special Education Science Teacher Relationship Specialty Start Date End Date Tang Olguin DO [address] [place] [address] PCP - General 10/30/22 Special Education Science Teacher Relationship Specialty Start Date End Date Tang Olguin DO [address] [place] [address] PCP - General Family Medicine 10/24/12 Special Education Science Teacher Relationship Specialty Start Date End Date Tang Olguin DO [address] [place] [address] PCP - General Family Medicine 10/24/12 Special Education Science Teacher Relationship Specialty Start Date End Date Tang Olguin DO [address] [place] [address] PCP - General Family Medicine 10/24/12 Special Education Science Teacher Relationship Specialty Start Date End Date Tang Olguin DO [address] [place] [address] PCP - General Family Medicine 10/24/12 Special Education Science Teacher Relationship Specialty Start Date End Date Tang Olguin DO [address] [place] [address] PCP - General Family Medicine 10/24/12 Special Education Science Teacher Relationship Specialty Start Date End Date Tang Olguin DO [address] [place] [address] PCP - General Family Medicine 10/24/12 Special Education Science Teacher Relationship Specialty Start Date End Date Tang Olguin DO [address] [place] [address] PCP - General Family Medicine 10/24/12 Special Education Science Teacher Relationship Specialty Start Date End Date Tang Olguin DO [address] [place] [address] PCP - General Family Medicine 10/24/12 Special Education Science Teacher Relationship Specialty Start Date End Date Tang Olguin DO [address] [place] [address] PCP - General Family Medicine 10/24/12 Special Education Science Teacher Relationship Specialty Start Date End Date Tang Olguin DO [address] [place] [address] PCP - General Family Medicine 10/24/12 Special Education Science Teacher Relationship Specialty Start Date End Date Tang Olguin DO [address] [place] [address] PCP - General Family Medicine 10/24/12 Special Education Science Teacher Relationship Specialty Start Date End Date Tang Olguin DO [address] [place] [address] PCP - General Family Medicine 10/24/12 Special Education Science Teacher Relationship Specialty Start Date End Date Tang Olguin DO [address] [place] [address] PCP - General Family Medicine 10/24/12 Special Education Science Teacher Relationship Specialty Start Date End Date Tang Olguin DO [address] [place] [address] PCP - General Family Medicine 10/24/12 Special Education Science Teacher Relationship Specialty Start Date End Date Tang Olguin DO [address] [place] [address] PCP - General Family Medicine 10/24/12 FOR RECORDS PERTAINING TO PATIENTS WHO ARE OR HAVE BEEN ENROLLED IN A CHEMICAL DEPENDENCY/SUBSTANCEABUSE PROGRAM, SOME INFORMATION MAY BE OMITTED. This clinical summary was aggregated from multiple sources. Caution should be exercised in using it in the provision of clinical care. This summary normalizes information from multiple sources, and as a consequence, information in this document may materially change the coding, format and clinical context of patient data. In addition, data may be omitted in some cases. CLINICAL DECISIONS SHOULD BE BASED ON THE PRIMARY CLINICAL RECORDS. [employer]. provides no warranty or guarantee of the accuracy or completeness of information in this document.
== END | disposition home or self-care (01) ==
LOC: MTRAD 11:23
PROVIDERS: PCP Student in an Organized Health Care Education/Training Program; Referring Provider Physician Assistant; Visit Provider Physician Assistant
DX: R05.9 Cough, unspecified (principal)
CPT/HCPCS: 71046

== ENCOUNTER → 2024-01-31 | Outpatient (CLI) | payer OTHER, SELFPAY ==
--- NOTE | 2024-01-31 09:34 | US_ITS ---
STUDY: ULTRASOUND BREAST - RIGHT REASON FOR EXAM: Female, 53 years old. Palpable lump in the right breast. TECHNIQUE: Axial and longitudinal images of the RIGHT breast were performed with a high resolution ultrasound transducer. # OF IMAGES: 22 COMPARISON: Comparison is made with prior mammogram done earlier today as well as prior sonogram dated May 05, 2022. FINDINGS: RIGHT Breast: The inferior lateral aspect of the right breast was examined. There is a 1 cm x 0.4 cm x 0.3 cm well-defined hypoechoic nodule with fatty hilum suggestive of benign lymph node at the 8:00 position of the breast at 8 cm from the nipple. US/Breast Limited Unilateral IMPRESSION: Findings suggestive of a 1 cm x 0.4 cm x 0.3 cm well-defined hypoechoic nodule suggestive of a lymph node at the 8 o''clock position of the breast at 8 cm from the nipple. ASSESSMENT CATEGORY: BIRADS Category 2: Benign. A letter regarding these results will be sent to the patient by the facility within 30 days. Electronically Signed: Colby Cruz MD at 13:43 EST ,
--- NOTE | 2024-01-31 09:34 | BI_ITS ---
MAMMOGRAPHY - BILATERAL DIAGNOSTIC REASON FOR EXAM: Female, 53 years old. Right lateral breast lump. Remote bilateral breast reduction surgery. PERTINENT HISTORY: Non-contributory. TECHNIQUE: Digital bilateral breast sandy (3D mammographic acquisition) in the CC and MLO projections. 2-D mediolateral oblique (MLO) and craniocaudad (CC) views of both breasts were obtained. CAD: Full Field Digital Mammography with Computer Added Detection was performed. COMPARISON: Comparison is made with prior study dated May 05, 2022 and March 23, 2021. FINDINGS: Breast Composition: There are scattered areas of fibroglandular density. There are no dominant masses or suspicious calcifications. No other significant abnormalities are identified. There has been no significant change since the prior study. BI/DIAG MAMM W/CAD, BILAT IMPRESSION: Stable bilateral diagnostic mammogram. With the patient''s history of a palpable lump in the right breast, correlation with ultrasound recommended. ASSESSMENT CATEGORY: BIRADS Category 0: Incomplete. Need additional imaging evaluation. A letter regarding these results will be sent to the patient by the facility within 30 days. Approximately 10% of breast cancers are not detected by mammography. A normal mammogram should not delay biopsy of a clinically suspicious abnormality. Electronically Signed: Colby Cruz MD at 10:51 EST ,
== END | disposition home or self-care (01) ==
LOC: OPBI 09:34
PROVIDERS: PCP Student in an Organized Health Care Education/Training Program; Referring Provider Advanced Practice Midwife; Visit Provider Advanced Practice Midwife
DX: N64.4 Mastodynia (principal); N63.10 Unspecified lump in the right breast, unspecified quadrant
CPT/HCPCS: 76642; 77062; 77066; G0279

== ENCOUNTER → 2024-02-27 | Outpatient (CLI) | payer OTHER, SELFPAY ==
[2024-02-27 16:55] LABS: Mucous, Urine 0 SEEN /hpf (<or=2+)
[2024-02-27 17:14] LABS: Color, Urine Yellow (Yellow); Glucose, Dipstick Normal (Normal); Ketone-Dipstick Negative (Negative); Leukocyte Esterase-Dipstick Negative /ul (Negative); Nitrite-Dipstick Negative (Negative); Occult Blood-Urine Negative /ul (Negative); Protein-Dipstick 15 mg/dl (Negative); Specific Gravity, Urine 1.025 (1.002-1.030); Urine Bilirubin Dipstick Negative (Negative); Urine Clarity Sl. Cloudy (Clear); Urine Urobilinogen 1 mg/dl (Normal)
[2024-02-27 20:07] LABS: Calcium Oxalate Crystals Ur 2+ /hpf (<or=2+); Squamous Epithelial Cells - UA 0-5 SEEN /hpf (5-10)
[2024-02-27 20:08] LABS: Bacteria 1+ /hpf (None Seen)
[2024-02-27 20:11] LABS: Red Blood Cells-Urine 5-10 SEEN /hpf (0-5); White Blood Cells 0-5 SEEN /hpf (0-5)
[2024-02-27 20:14] LABS: Yeast-Urine 1+ /hpf (None Seen)
== END | disposition home or self-care (01) ==
PROVIDERS: PCP Student in an Organized Health Care Education/Training Program; Referring Provider Physician Assistant; Visit Provider Physician Assistant
DX: R10.9 Unspecified abdominal pain (principal)
CPT/HCPCS: 81001; 87086; 87088

== ENCOUNTER → 2024-05-26 | Outpatient (CLI) | payer OTHER, SELFPAY ==
--- NOTE | 2024-05-26 16:30 | RAD_ITS ---
PROCEDURE: CHEST PA AND LATERAL 05/26/2024 REASON FOR EXAM: COUGH TECHNIQUE: Frontal view of the chest. COMPARISON: 01/07/2024 FINDINGS: The heart size is normal. No focal consolidation. No pneumothorax. No pleural effusion. RAD/Chest PA and Lateral IMPRESSION: No Acute Findings. [facility]
== END | disposition home or self-care (01) ==
PROVIDERS: PCP Student in an Organized Health Care Education/Training Program; Referring Provider Physician Assistant; Visit Provider Physician Assistant
DX: R05.9 Cough, unspecified (principal)
CPT/HCPCS: 71046

== ENCOUNTER → 2024-07-02 | Outpatient (CLI) | payer OTHER, SELFPAY ==
--- NOTE | 2024-07-02 16:48 | RAD_ITS ---
EXAM: Right foot radiographs CLINICAL HISTORY: Pain COMPARISON: None TECHNIQUE: Three views of the right foot FINDINGS: See impression RAD/Foot min 3 Views IMPRESSION: Negative for acute displaced fracture or malalignment. Mild 1st MTP joint oste oarthritis. Moderate calcaneal enthesopathy. Thickening at the insertion of the Achilles tendon likely related to chronic te ndinopathy. Reading Location: [facility]
== END | disposition home or self-care (01) ==
PROVIDERS: PCP Student in an Organized Health Care Education/Training Program; Referring Provider Physician Assistant; Visit Provider Physician Assistant
DX: S99.921A Unspecified injury of right foot, initial encounter (principal)
CPT/HCPCS: 73630

== ENCOUNTER 2024-07-23 10:15 | Day surgery (SDC) | payer OTHER, SELFPAY ==
--- NOTE | 2024-07-21 15:02 | PAT.ANE_ITS ---
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 When Was Last Pacemaker Check QUESTION #4 FULL TEXT: You/Your Family Experience fever (hyperthermia) with Anesthesia Last Oral Intake Last Oral intake: Last Oral Intake NPO since Meds taken in AM with sips of water? Meds patient instructed to take am of surgery PONV PONV - mud tank operator: PONV - mud tank operator Female Yes 07/21/24 13:15 HX of Motion Sickness No 07/21/24 13:15 HX of N/V After Surgery Yes 07/21/24 13:15 Non-Smoker Yes 07/21/24 13:15 Duration of Surgery greater No 07/21/24 13:15 than 60 minutes Number of Risk Factors 3 07/21/24 13:15 PONV Score Moderate Risk 07/21/24 13:15 Height & Weight Height & Weight: Anesthesia: Height & Weight Height 5 ft 2 in 06/06/24 09:46 Respiratory Assessment Respiratory Assessment - mud tank operator: Respiratory Tract Infection Hx - mud tank operator Hx Respiratory Tract Infection No 07/21/24 13:15 STOP Sleep Apnea STOP Sleep Apnea - mud tank operator: STOP Sleep Apnea - mud tank operator Hx Hypertension Yes: HISTORY OF/ RESOLVED 07/21/24 13:15 AAFTER WT LOSS Hx Sleep Apnea No 07/21/24 13:15 CPAP No 07/21/24 13:15 BIPAP No 07/21/24 13:15 Do you snore loudly (louder No 07/21/24 13:15 than talking or can be heard Do you often feel tired/ No 07/21/24 13:15 fatigued/ sleepy during daytime? Has anyone observed you stop No 07/21/24 13:15 breathing during sleep? STOP Results Negative 07/21/24 13:15 QUESTION #5 FULL TEXT : Do you snore loudly (louder than talking or can be heard through closed doors)? 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 Specify any problems Hx of Preganancy in last 3 No 07/21/24 13:15 Months Nurse Filling Out Transfusion SHER 07/21/24 13:15 & Questions: Date: 07/21/24 07/21/24 13:15 Time: 13:17 07/21/24 13:15 Patient unable to answer at this time (ie. confused, unrespo /Reproduction History /Reproductive History - mud tank operator: /Reproductive Hx- mud tank operator Hx Now No 07/21/24 13:15 Gestational Age (in weeks): EDC: Hx Hx Para Hx Section SAB No 07/21/24 13:15 [facility] Medical History (Updated 07/21/24 @ 13:27 by Lulu De Los Santos) Arthritis History of DVT (deep vein thrombosis) Easy bruising Difficulty chewing PONV (postoperative nausea and vomiting) Contusion of right lesser toe(s) without damage to nail, initial encounter URI (upper respiratory infection) Mid back pain on right side Hx of blood clots Fibromyalgia Fatty liver Restless legs Difficulty swallowing History of hiatal hernia History of IBS Gastric reflux Non-smoker Asthma History of echocardiogram History of stress test Cardiology follow-up encounter COVID-19 uterine ablation r middle trigger finger release Delivery with history of Vitamin D deficiency Trigger ring finger of right hand Trigger middle finger of right hand Temporomandibular joint disorder Seizures Right hand paresthesia Rheumatoid arthritis PTSD (post-traumatic stress disorder) Patellofemoral disorder Impaired fasting glucose HTN (hypertension) Hypercholesteremia HSV infection Hayfever GERD (gastroesophageal reflux disease) Fibromyalgia muscle pain Endometriosis Diaphragmatic hernia without mention of obstruction or gangrene Depressive disorder Colon polyps Carpal tunnel syndrome Anxiety Calcaneal spur Aortic aneurysm Home Medications ?Medication ?Instructions ?Recorded ?Last Taken ?Type cetirizine 10 mg capsule (Zyrtec) 10 mg PO QHS allergi es 01/22/17 05/07/19 History escitalopram oxalate 5 mg tablet 5 mg PO QHS 04/20/23 Unknown History pantoprazole 40 mg tablet,delayed 40 mg PO QHS 4 Unknown History release valacyclovir 500 mg tablet 500 mg PO QHS 04/20/23 Unkn own History ropinirole 0.25 mg tablet 0.25 mg PO QHS 10/22/23 Unkn own History multivitamin with minerals-folic 1 tab PO DAILY Unknown History acid 200 mcg chewable tablet (Women's Multivitamin Gummies) clobetasol 0.05 % topical ointment 1 applic topical .C OMPLEX #60 grams 01/29/24 Unknown Rx estradiol 0.01% (0.1 mg/gram) 1 appful vaginal 2XW #42 .5 grams 01/29/24 Unknown Rx vaginal cream Allergy/AdvReac Type Severity Reaction Status Date / Time hydromorphone HCl (From Allergy Chest Verified 07/21/24 13:10 Dilaudid) tightness prednisone Allergy Itching Verified 07/21/24 13:10 warfarin sodium (From Allergy Chest Verified 07/21/24 13:10 Coumadin) tightness milnacipran HCl (From AdvReac Other Verified 07/21/24 13:10 Savella) pregabalin (From Lyrica) AdvReac Rash Verified 07/21/24 13:10 rivaroxaban (From Xarelto) AdvReac Nausea Verified 07/21/24 13:10 Family History Mother Hypertension Hyperlipidemia alcohol/drug addiction Allergies Father alcohol/drug addiction Sister Thyroid disorder Fibromyalgia Blindness Grandmother Emphysema lung Heart disease Grandfather Emphysema lung Brother alcohol/drug addiction Surgical History History of weight loss surgery Hx of tonsillectomy History of nasal surgery S/P foot surgery, left History of bilateral breast reduction surgery History of tubal ligation History of bilateral salpingectomy History of laparoscopic-assisted vaginal hysterectomy History of laparoscopic cholecystectomy History of esophagogastroduodenoscopy (EGD) Hx of colonoscopy History of carpal tunnel release Social History 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 Sinus bradycardia 55 bpm. Compared to December 2022 no significant change was found. Stress test pertinent findings: August 20, 2018. Ejection fraction 79%. No perfusion changes to indicate ischemia. Echo (EF%) pertinent findings: 05/09/2019. Ejection fraction 60%. No aortic stenosis. Recommendation Anesthesia Recommendation Anesthesia recommendation: OPTIMIZED for anesthesia
[2024-07-23] VITALS (8 sets, daily range): BP systolic 103–117; BP diastolic 64–79; PULSE 55–69; RESP 14–16; TEMP 36.2–36.4; O2SAT 94–99; BMI 33.6
[2024-07-23] MEDS: Lactated Ringers 1,000 ML 15 ML IV (11:00)
--- NOTE | 2024-07-23 11:19 | PCM.PRE.AN2 ---
ASA Classification* ASA Classification ASA Classification: 2 Assessment & Plan Anesthesia* Anesthesia Assessment Anesthesia Assessment: Discussed sedation and/or anesthesia options, risks, benefits, and alternatives with patient/parents/legal guardian/POA. Questions invited. The patient/parents/legal guardian/POA seems to understand and agrees to proceed with anesthesia plan. Reviewed the physical assessment, medical history, allergy history and patient home medications list prior to surgery/procedure/anesthetic and documented any changes. Performed airway and anesthesia risk assessments. Anesthesia Type Anesthesia Type: MAC Anesthesia Focused Assessment* Temperature: 97.5 F Pulse Rate: 59 Blood Pressure: 117/72 Respiratory Rate: 16 Pulse Ox: 97 Airway Assessment Mouth opens: >3 cm Mallampati Score: II Focused Labs Anesthesia Preop lab: CBC WBC 6.3 K/mm3 (4.4-11.0) 05/29/23 10:55 05/29/23 RBC 4.98 M/mm3 (4.2-5.4) 05/29/23 10:55 05/29/23 Hgb 14.5 g/dL (12.0-15.0) 05/29/23 10:55 05/29/23 Hct 45.0 % (37-47) 05/29/23 10:55 05/29/23 Plt Count 229 K/mm3 (150-450) 05/29/23 10:55 05/29/23 CHEMISTRY Potassium 3.6 mmol/L (3.5-5.1) 05/29/23 10:55 05/29/23 Sodium 139 mmol/L (136-145) 05/29/23 10:55 05/29/23 Magnesium 2.3 mg/dL (1.6-2.6) 12/11/22 10:35 12/11/22 BUN 10 mg/dL (7-18) 05/29/23 10:55 05/29/23 Creatinine 0.74 mg/dL (0.55-1.02) 05/29/23 10:55 05/29/23 Glucose 88 mg/dL (74-106) 05/29/23 10:55 05/29/23 POC Glucose 121 mg/dL (70-110) H 06/25/16 16:24 06/25/16 TSH 1.22 uIU/mL (0.358-3.74) 05/08/19 12:25 05/08/19 COAG PT 12.8 SECONDS (11.7-14.9) 06/25/16 16:15 06/25/16 HCG, Quant < 1 mIU/mL (<9 non-preg) 09/26/12 18:00 09/26/12 Urine Test Negative Negative 12/04/14 11:12 12/04/14 Pre-Assessment Diagnosis/Proposed Procedure Planned Operative Procedure(s): EGD, CAPSULE PACEMENT Anesthesia History 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 When Was Last Pacemaker Check QUESTION #4 FULL TEXT: You/Your Family Experience fever (hyperthermia) with Anesthesia Last Oral Intake Last Oral intake: Last Oral Intake NPO since 22:00 07/23/24 10:53 Meds taken in AM with sips of water? Meds patient instructed to take am of surgery PONV PONV - surgical processor: PONV - surgical processor Female Yes 07/21/24 13:15 HX of Motion Sickness No 07/21/24 13:15 HX of N/V After Surgery Yes 07/21/24 13:15 Non-Smoker Yes 07/21/24 13:15 Duration of Surgery greater No 07/21/24 13:15 than 60 minutes Number of Risk Factors 3 07/21/24 13:15 PONV Score Moderate Risk 07/21/24 13:15 Height & Weight Height & Weight: Anesthesia: Height & Weight Height 5 ft 2 in 07/23/24 10:53 Weight: 83.5 kg 07/23/24 10:53 Body Mass Index (BMI) 33.6 07/23/24 10:53 Respiratory Assessment Respiratory Assessment - surgical processor: Respiratory Tract Infection Hx - surgical processor Hx Respiratory Tract Infection No 07/21/24 13:15 STOP Sleep Apnea STOP Sleep Apnea - surgical processor: STOP Sleep Apnea - surgical processor Hx Hypertension Yes: HISTORY OF/ RESOLVED 07/21/24 13:15 AAFTER WT LOSS Hx Sleep Apnea No 07/21/24 13:15 CPAP No 07/21/24 13:15 BIPAP No 07/21/24 13:15 Do you snore loudly (louder No 07/21/24 13:15 than talking or can be heard Do you often feel tired/ No 07/21/24 13:15 fatigued/ sleepy during daytime? Has anyone observed you stop No 07/21/24 13:15 breathing during sleep? STOP Results Negative 07/21/24 13:15 QUESTION #5 FULL TEXT : Do you snore loudly (louder than talking or can be heard through closed doors)? 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 Specify any problems Hx of Preganancy in last 3 No 07/21/24 13:15 Months Nurse Filling Out Transfusion MGRIFFITH 07/21/24 13:15 & Questions: Date: 07/21/24 07/21/24 13:15 Time: 13:17 07/21/24 13:15 Patient unable to answer at this time (ie. confused, unrespo /Reproduction History /Reproductive History - surgical processor: /Reproductive Hx- surgical processor Hx Now No 07/21/24 13:15 Gestational Age (in weeks): EDC: Hx Hx Para Hx Section SAB No 07/21/24 13:15 Active Medications Active Medications: Current Medications Generic Name Dose Route Start Last Admin Trade Name Linoq PRN Reason Stop Dose Admin Lactated Ringer's 1,000 mls @ 15 mls/hr 07/23/24 10:45 07/23/24 11:00 IV 15 mls/hr .Q48H DEWEY Administration PFSH Medical History Arthritis History of DVT (deep vein thrombosis) Easy bruising Difficulty chewing PONV (postoperative nausea and vomiting) Contusion of right lesser toe(s) without damage to nail, initial encounter URI (upper respiratory infection) Mid back pain on right side Hx of blood clots Fibromyalgia Fatty liver Restless legs Difficulty swallowing History of hiatal hernia History of IBS Gastric reflux Non-smoker Asthma History of echocardiogram History of stress test Cardiology follow-up encounter COVID-19 uterine ablation r middle trigger finger release Delivery with history of Vitamin D deficiency Trigger ring finger of right hand Trigger middle finger of right hand Temporomandibular joint disorder Seizures Right hand paresthesia Rheumatoid arthritis PTSD (post-traumatic stress disorder) Patellofemoral disorder Impaired fasting glucose HTN (hypertension) Hypercholesteremia HSV infection Hayfever GERD (gastroesophageal reflux disease) Fibromyalgia muscle pain Endometriosis Diaphragmatic hernia without mention of obstruction or gangrene Depressive disorder Colon polyps Carpal tunnel syndrome Anxiety Calcaneal spur Aortic aneurysm Home Medications ?Medication ?Instructions ?Recorded ?Last Taken ?Type cetirizine 10 mg capsule (Zyrtec) 10 mg PO QHS allergies 01/22/17 07/22/24 History escitalopram oxalate 5 mg tablet 5 mg PO QHS 04/20/23 Unknown History pantoprazole 40 mg tablet,delayed 40 mg PO QHS 04/20/23 07/21/24 History release valacyclovir 500 mg tablet 500 mg PO QHS 04/20/23 07/21/24 History ropinirole 0.25 mg tablet 0.25 mg PO QHS 10/22/23 07/22/24 History multivitamin with minerals-folic 1 tab PO DAILY 11/22/23 Unknown History acid 200 mcg chewable tablet (Women's Multivitamin Gummies) clobetasol 0.05 % topical ointment 1 applic topical .COMPLEX #60 grams 01/29/24 Unknown Rx estradiol 0.01% (0.1 mg/gram) 1 appful vaginal 2XW #42.5 grams 01/29/24 Unknown Rx vaginal cream Allergy/AdvReac Type Severity Reaction Status Date / Time hydromorphone HCl (From Allergy Chest Verified 07/23/24 10:51 Dilaudid) tightness prednisone Allergy Itching Verified 07/23/24 10:51 warfarin sodium (From Allergy Chest Verified 07/23/24 10:51 Coumadin) tightness milnacipran HCl (From AdvReac Other Verified 07/23/24 10:51 Savella) pregabalin (From Lyrica) AdvReac Rash Verified 07/23/24 10:51 rivaroxaban (From Xarelto) AdvReac Nausea Verified 07/23/24 10:51 Family History Mother Hypertension Hyperlipidemia alcohol/drug addiction Allergies Father alcohol/drug addiction Sister Thyroid disorder Fibromyalgia Blindness Grandmother Emphysema lung Heart disease Grandfather Emphysema lung Brother alcohol/drug addiction Surgical History History of weight loss surgery Hx of tonsillectomy History of nasal surgery S/P foot surgery, left History of bilateral breast reduction surgery History of tubal ligation History of bilateral salpingectomy History of laparoscopic-assisted vaginal hysterectomy History of laparoscopic cholecystectomy History of esophagogastroduodenoscopy (EGD) Hx of colonoscopy History of carpal tunnel release 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
--- NOTE | 2024-07-23 11:30 | EGD_PTH ---
PATIENT: CLARISA ANTHONY LOC: EN U#:[id number] AGE/SX: 54/F ROOM: RE07/23/[address]: Dr. Faraz Cortez DO : 1970 BED: DIS: 07/23/2024 SPEC #: [id number] RECD: 07/23/24 14:12 STATUS: SEDRICK REPratibha #: [id number] CHAMP: 07/23/24 11:[address]: Faraz Cortez DEPT: SURGICAL PATHOLOGY RECD BY: Rishi Laws ENTERED: 07/23/24 14:37 SP TYPE: EGD BIOPSY CASANDRA DR: Dr. Tang Olguin DO Tissues: A - Gastric mucous membrane Procedures: Surgery Specimen Level IV HEADER OPERATION: EGD, capsule placement PRE-OP DIAGNOSIS: Gastritis, iron deficiency anemia, exocrine pancreatic insufficiency, dilated CBD, Osman's TISSUE SUBMITTED: A- Gastric-jejunal anastomosis biopsy MICROSCOPIC DIAGNOSIS A. Stomach, gastric-jejunal anastomosis, biopsy: * Oxyntic gastric mucosa with features of reactive gastropathy. * Negative for Helicobacter-like organisms (H&E stain). MICROSCOPIC DESCRIPTION Slides are reviewed. GROSS DESCRIPTION A. Received in formalin in a container labeled with the patient's name, date of , and gastric-jejunal anastomosis is a 0.5 x 0.3 x 0.2 cm fragment of krause-pink mucosal tissue. Submitted in toto in A1. [facility] 07-23-2024 CPT:63043
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
--- NOTE | 2024-07-23 12:55 | OP.EGD_ITS ---
Patient Name: Ning Mendes Procedure Date: 07/23/2024 12:30 PM Date of : 1970 Age: 54 Procedure: Upper GI endoscopy Indications: Epigastric abdominal pain, Iron deficiency anemia, Failure to respond to medical treatment Providers: Faraz Cortez DO Referring MD: Tang Olguin Medicines: Monitored Anesthesia Care Patient Profile: This is a 54 year old female. Refer to note in patient chart for documentation of history and physical. Patient has symptoms of chronic abdominal cramping, chronic abdominal distention, acute epigastric abdominal pain, chronic dyspepsia, chronic heartburn, acute nausea and chronic nausea. Complications: No immediate complications. Procedure: Pre-Anesthesia Assessment: - Prior to the procedure, a History and Physical was performed, and patient medications and allergies were reviewed. The patient is competent. The risks and benefits of the procedure and the sedation options and risks were discussed with the patient. All questions were answered and informed consent was obtained. Patient identification and proposed procedure were verified by the physician. Mental Status Examination: alert and oriented. Airway Examination: normal oropharyngeal airway and neck mobility. Respiratory Examination: clear to auscultation. CV Examination: normal. Prophylactic Antibiotics: The patient does not require prophylactic antibiotics. Prior Anticoagulants: The patient has taken no anticoagulant or antiplatelet agents except for NSAID medication. ASA Grade Assessment: II - A patient with mild systemic disease. After reviewing the risks and benefits, the patient was deemed in satisfactory condition to undergo the procedure. The anesthesia plan was to use monitored anesthesia care (MAC). Immediately prior to administration of medications, the patient was re-assessed for adequacy to receive sedatives. The heart rate, respiratory rate, oxygen saturations, blood pressure, adequacy of pulmonary ventilation, and response to care were monitored throughout the procedure. The physical status of the patient was re-assessed after the procedure. After obtaining informed consent, the endoscope was passed under direct vision. Throughout the procedure, the patient's blood pressure, pulse, and oxygen saturations were monitored continuously. The Endoscope was introduced through the mouth, and advanced to the jejunum. Small bowel enteroscopy was deemed necessary. The upper GI endoscopy was accomplished without difficulty. The patient tolerated the procedure well. Scope In: 12:39:32 PM Scope Out: 12:48:05 PM Total Procedure Duration Time 0 hours 8 minutes 33 seconds Findings: The examined esophagus was normal. Evidence of a Faith-en-Y gastrojejunostomy was found. The gastrojejunal anastomosis was characterized by friable mucosa and an intact appearance. This was traversed. The yrlpw-ta-halzzqa limb was characterized by erosion and erythema. The vauctpvm-cu-murofnp limb was not examined as it could not be found. The excluded stomach was not examined as it could not be found. Biopsies were taken with a cold forceps for histology. Verification of patient identification for the specimen was done. Estimated blood loss was minimal. Using the endoscope, the video capsule enteroscope was advanced into the proximal jejunum. The video capsule was positioned 60 cm from the incisors. The examined jejunum was normal. Impression: - Normal esophagus. - Faith-en-Y gastrojejunostomy with gastrojejunal anastomosis characterized by friable mucosa and an intact appearance. Biopsied. - Normal examined jejunum. - Successful completion of the Video Capsule Enteroscope placement. Recommendation: - Discharge patient to home. - Resume previous diet. - Continue present medications. - Await pathology results. Procedure Code(s): --- Professional --- 18083, Small intestinal endoscopy, enteroscopy beyond second portion of duodenum, not including ileum; with biopsy, single or multiple CPT copyright 2021 [employer]. All rights reserved. The codes documented in this report are preliminary and upon photofinishing laboratory worker review may be revised to meet current compliance requirements. Faraz Cortez DO 07/23/2024 12:55:10 PM This report has been signed electronically. Number of Addenda: 0 Note Initiated On: 07/23/2024 12:30 PM
--- NOTE | 2024-07-23 12:56 | OP.CCLET_ITS ---
07/23/2024 Tang Olguin [address] [place] [address] Re : Upper GI endoscopy procedure for Ning Mendes Dear Dr. Olguin This procedure was performed on Tuesday, July 23, 2024. My impressions and recommendations are as follows: Impressions : - Normal esophagus. - Faith-en-Y gastrojejunostomy with gastrojejunal anastomosis characterized by friable mucosa and an intact appearance. Biopsied. - Normal examined jejunum. - Successful completion of the Video Capsule Enteroscope placement. Recommendations : - Discharge patient to home. - Resume previous diet. - Continue present medications. - Await pathology results. My findings are described in the full procedure note, which is enclosed. If I can be of further assistance, please feel free to contact me at . Sincerely, Faraz Cortez, 07/23/2024 12:55:10 PM This report has been signed electronically.
--- NOTE | 2024-07-23 12:59 | PCM.POST.ANE ---
Anesthesia: Postop Eval I Current Vital Signs Temperature: 97.4 F Pulse Rate: 67 Blood Pressure: 103/64 Respiratory Rate: 16 Pulse Ox: 97 Assessment Airway patent: Yes Spontaneous unlabored respirations: Yes nausea: No Vomiting: No Anesthesia Complication: No Fluid Hydration Crystalloid volume administer (ml): 800 Total IV fluid infused: 800 Progress Note Anesthesia document: Postop Eval 1 completed: Yes
--- NOTE | 2024-07-23 13:06 | POSTOPAN2_ITS ---
Anesthesia Postop Eval I Sum Postop Eval Completion status Anesthesia document: Postop Eval 1 completed: Yes Anesthesia Postop Eval I Summary Anesthesia Postop Eval I Summary: Anesthesia Postop Eval I: Assessment Summary Airway patent Yes 07/23/24 12:59 [email or web address] Spontaneous unlabored Yes 07/23/24 12:59 [email or web address] [email or web address] respirations Mental status nausea No 07/23/24 12:59 [email or web address] [email or web address] Vomiting No 07/23/24 12:59 [email or web address] Anesthesia Postop Eval I: Fluid Summary Crystalloid volume administer 800 07/23/24 12:59 [email or web address] (ml) Colloids volume administered ( ml) Blood Product volume administered (ml) Total IV fluid infused 800 07/23/24 12:59 [email or web address] Anesthesia Postop Eval I: Summary Notes Anesthesia Complication No 07/23/24 12:59 [email or web address] Anesthesia Complication Comment: Post-operative progress note Anesthesia: Postop Eval II Evaluation Mental status: Awake Pain Level: 0 nausea: No Vomiting: No
--- NOTE | 2024-07-23 13:06 | PCM.POSTANE2 ---
Anesthesia Postop Eval I Sum Postop Eval Completion status Anesthesia document: Postop Eval 1 completed: Yes Anesthesia Postop Eval I Summary Anesthesia Postop Eval I Summary: Anesthesia Postop Eval I: Assessment Summary Airway patent Yes 07/23/24 12:59 [email or web address] Spontaneous unlabored Yes 07/23/24 12:59 [email or web address] respirations Mental status nausea No 07/23/24 12:59 [email or web address] Vomiting No 07/23/24 12:59 [email or web address] Anesthesia Postop Eval I: Fluid Summary Crystalloid volume administer 800 07/23/24 12:59 [email or web address] (ml) Colloids volume administered ( ml) Blood Product volume administered (ml) Total IV fluid infused 800 07/23/24 12:59 [email or web address] Anesthesia Postop Eval I: Summary Notes Anesthesia Complication No 07/23/24 12:59 [email or web address] Anesthesia Complication Comment: Post-operative progress note Anesthesia: Postop Eval II Evaluation Mental status: Awake Pain Level: 0 nausea: No Vomiting: No
== END 2024-07-23 13:36 | disposition home or self-care (01) ==
LOC: EN 10:17 → AC 10:19
PROVIDERS: PCP Student in an Organized Health Care Education/Training Program; Referring Provider Student in an Organized Health Care Education/Training Program; Visit Provider Internal Medicine Gastroenterology
PROC: 0DJ08ZZ Inspection of Upper Intestinal Tract, Via Natural or Artificial Opening Endoscopic (ICD-10-PCS; CPT 43235; principal; 2024-07-23 11:25)
DX: K22.70 Barrett's esophagus without dysplasia (principal); D50.9 Iron deficiency anemia, unspecified; K86.89 Other specified diseases of pancreas; I10 Essential (primary) hypertension; Z79.899 Other long term (current) drug therapy; Z86.718 Personal history of other venous thrombosis and embolism; Z86.16 Personal history of COVID-19
CPT/HCPCS: 43239; 88305; C1889; J2405

== ENCOUNTER 2024-09-30 21:49 | Emergency (ER) | payer OTHER, SELFPAY ==
[2024-09-30 21:49] VITALS: BP 149/86; PULSE 62; RESP 16; TEMP 36.6; O2SAT 100; BMI 34.5
--- NOTE | 2024-09-30 22:18 | EKG12_ITS ---
Test Reason : CP Blood Pressure : */* mmHG Vent. Rate : 52 BPM Atrial Rate : 52 BPM P-R Int : 166 ms QRS Dur : 76 ms QT Int : 424 ms P-R-T Axes : 54 17 23 degrees QTcB Int : 394 ms Sinus bradycardia Otherwise normal ECG Confirmed by Evaristo Luis ([id number]), editor managing director DIONNE LEIGH ([id number]) on 10/01/2024 1:50:01 PM Referred By: JEANNA Confirmed By: Evaristo Luis
--- NOTE | 2024-09-30 22:22 | RAD_ITS ---
PROCEDURE: CHEST PA AND LATERAL 09/30/2024 REASON FOR EXAM: CHEST PAIN TECHNIQUE: CHEST PA AND LATERAL COMPARISON: 05/26/2024 FINDINGS: Normal heart size. Well inflated lungs. No consolidation, effusion or pneumothorax. RAD/Chest PA and Lateral IMPRESSION: No acute chest findings Reading Location: [facility]
[2024-09-30 22:28] LABS: Hematocrit 41.4 % (37-47); Hemoglobin 13.8 g/dL (12.0-15.0); Immature Granulocytes Count 0.020 X10^3/uL (0.0-0.0); Mean Corp Hgb Conc 33.3 g/dL (32-36); Mean Corpuscular Volume 91.2 fL (81-99); Mean Platelet Vol. 11.3 fl (6.2-12.0); NRBC Flagged by Analyzer 0 % (0-5); Platelet Count 212 K/mm3 (150-450); RBC Distribution Width CV 12.7 % (11.6-14.6); RBC Distribution Width SD 41.7 fl (35.1-43.9); Red Blood Count 4.54 M/mm3 (4.2-5.4); White Blood Count 6.9 K/mm3 (4.4-11.0)
[2024-09-30 22:49] VITALS: BP 146/72; PULSE 59; RESP 14; O2SAT 99
[2024-09-30 23:00] VITALS: PULSE 59
[2024-09-30] MEDS: 0.9% Normal Saline (1000mL) 1,000 ML 999 ML IV (23:02)
[2024-09-30] MEDS: Ketorolac 30 MG/ML Syringe IV (23:02)
[2024-09-30 23:03] VITALS: O2SAT 98
[2024-09-30 23:09] LABS: Magnesium 2.1 mg/dL (1.5-2.2)
[2024-09-30 23:11] LABS: Anion Gap 12 (5-15); BUN 12 mg/dL (4-19); BUN/Creat Ratio 15.3 RATIO (10-20); Calcium,Total 9.2 mg/dL (7.6-11.0); Carbon Dioxide 25.8 mmol/L (21.0-32.0); Chloride 102 mmol/L (98-108); Estimated Creatinine Clearance 84.74 ml/min (50-250); Glucose 92 mg/dL (70-99); Potassium 4.6 mmol/L (3.3-5.1); Troponin T High Sensitivity < 6 ng/L (<=14)
[2024-09-30 23:23] LABS: D-Dimer Quantitative (DVT/PE) < 0.27 FEU/ug/m (0.27-0.49)
--- OUTSIDE RECORDS SUMMARY | 2024-09-30 23:24 | XMS RPT_ITS | CCD ---
Author Organization [facility] Care Team Providers Care Wind Farm Support Specialist Name Role Phone Dr. Tang Olguin Primary Care Provider Dr. David Lincoln Attending Provider Dr. Ck Parker Referring Provider Tang Olguin DO Primary Care Provider Tang Olguin DO Primary Care Provider Dr. Tang Olguin Primary Care Provider Dr. Tang Olguin Referring Provider Dr. Vidhya Prajapati Attending Provider Shaylee REIMBURSEMENT DIRECTOR, REIMBURSEMENT DIRECTOR-C Patricia Lin Attending Provider Dr. Faraz Cortez Attending Provider Dr. Faraz Cortez Other Provider Tang Olguin DO Primary Care Provider Catina SÁNCHEZ, PA Herb Lin Attending Provider Valorie SÁNCHEZ, PA Breanna Lin Attending Provider Tang Olguin DO Primary Care Provider CHARLIE DRAPER Attending Unavailable CHARLIE DRAPER Admitting Unavailable TANG OLGUIN Primary Care Unavailable Dr. Tang Olguin Primary Care Provider Dr. Ayad Villa Attending Provider Dr. Reggie Pina Referring Provider [phone] Dr. aTng Olguin Referring Provider Roof REIMBURSEMENT DIRECTOR, REIMBURSEMENT DIRECTOR-C Trevor Curry Attending Provider Dr. Vidhya Prajapati Attending Provider [phone] Shaylee REIMBURSEMENT DIRECTOR, REIMBURSEMENT DIRECTOR-C Patricia Lin Attending Provider [phone] Dr. Tang Olguin Primary Care Provider Dr. Tang Olguin Referring Provider Roof REIMBURSEMENT DIRECTOR, REIMBURSEMENT DIRECTOR-C Trevor Curry Attending Provider Dr. Vidhya Prajapati Attending Provider [phone] Shaylee REIMBURSEMENT DIRECTOR, REIMBURSEMENT DIRECTOR-C Patricia Lin Attending Provider [phone] Dr. Tang Olguin Primary Care Provider Dr. Tang Olguin Referring Provider Dr. Faraz Cortez Attending Provider [phone] Kristal Recinos Attending Dr. Tang Rothman Primary Care Padminila ilDr. Faraz Smith Referring Unavailable Tang Olguin DO Primary Care Provider Dr. Tang Olguin Primary Care Provider Dr. Tang Olguin Referring Provider PRINCESS Santos Attending Provider Dr. Faraz Cortez Attending Provider [phone] Dr. Faraz Cortez Other Provider [phone] Tang Olguin Primary Care Provider Dr. Tang Olguin Referring Provider Dr. Faraz Cortez Attending Provider [phone] Dr. Faraz Cortez Other Provider [phone] PRINCESS Trejo Attending Provider Dr. Ayad Villa Attending Provider Olguin DO, Tang L Primary Care Provider MARY FARFAN Attending Unavailable OLGUIN, TANG L Primary Care Unavailable CIERRA EMMANUEL Attending Unavailable OLGUIN, TANG L Primary Care Unavailable Lew TECHNICAL SUPPORT ANALYST.RESIDENCE LIFE DIRECTOR, Silav Faiza Unavailable [facility] TECHNICAL SUPPORT ANALYST.RESIDENCE LIFE DIRECTORNeva Unavailable Lew TECHNICAL SUPPORT ANALYST.SERA, Silva Kendall Unavailable Sharif PURDY, Dr. Beckwith Primary Care Provider Sharif PURDY, Dr. Beckwith Referring Provider Herb Santos Attending Provider Herb Santos Referring Provider [phone] Sharif PURDY, Dr. Beckwith Primary Care Provider Sharif PURDY, Dr. Beckwith Referring Provider Herb Santos Attending Provider [phone] Herb Santos Referring Provider Debbie Perry Attending Provider Dana PURDY, Dr. Ruth Attending Provider Dr. Faraz Cortez DO Other Provider Debbie Ying NP Attending Unavailable Olguin, Tang Primary Care Unavailable Olguin, Tang Referring Unavailable Olguin, Tang Primary Care Unavailable Herb Santos Attending Unavailable Olguin, Tang Referring Unavailable Faraz Cortez Attending Unavailable Faraz Cortez Consulting Unavailable Olguin, Tang Primary Care Unavailable Olguin, Tang Referring Unavailable Olguin, Tang Referring Unavailable Olguin, Tang Primary Care Unavailable Herb Santos Attending Unavailable Olguin, Tang Primary Care Unavailable Cortney Paul Attending Unavailable Olguin, Tang Referring Unavailable Mary Kramer Attending Unavailabl e Olguin, Tang Referring Unavailable Olguin, Tang Primary Care Unavailable Olguin, Tang Primary Care Unavailable Olguin, Tang Referring Unavailable Debbie Ying NP Attending Unavailable Hardeep Lucio Attending Unavailable Olguin, Tang Primary Care Unavailable Debbie Ying NP Referring Unavailable Olguin, Tang Primary Care Unavailable Herb Santos M Referring Unavailable WyHerb Rome M Attending Unavailable Olguin, Tang Primary Care Unavailable Olguin, Tang Referring Unavailable Herb Santos M Attending Unavailable Olguin, Tang Primary Care Unavailable Lukeles PA Herb M Referring Unavailable Wytai SÁNCHEZ Herb M Attending Unavailable Stepan REIMBURSEMENT DIRECTOR, Debbie Attending Unavailable Olguin, Tang Primary Care Unavailable Stepan REIMBURSEMENT DIRECTOR, Debbie Referring Unavailable Olguin, Tang Primary Care Unavailable Herb Santos M Attending Unavailable Catina PA Herb M Referring Unavailable Olguin, Tang Primary Care Unavailable Herb Santos Attending Unavailable Catina SÁNCHEZ Herb M Referring Unavailable Friend, Faraz Attending Unavailable Olguin, Tang Primary Care Unavailable Olguin, Tang Referring Unavailable Olguin, Tang Primary Care Unavailable Cortney Paul Referring Unavailable Cortney Paul Attending Unavailable Stepan REIMBURSEMENT DIRECTOR, Debbie Attending Unavailable Olguin, Tang Primary Care Unavailable Olguin, Tang Referring Unavailable Olguin, Tang Primary Care Unavailable Olguin, Tang Referring Unavailable Herb Santos Attending Unavailable Olguin, Tang Primary Care Unavailable Olguin, Tang Referring Unavailable Friend, Faraz Attending Unavailable Friend, Faraz Attending Unavailable Olguin, Tang Primary Care Unavailable Olguin, Tang Referring Unavailable Hamilton TECHNICAL SUPPORT ANALYST.SERA, Nissa Den Unavailable [phone] OLGUIN, TANG L Attending Unavailable OLGUIN, TANG L Primary Care Unavailable NELLY YOON Attending Unavailable OLGUIN, TANG L Primary Care Unavailable OLGUIN, TANG L Primary Care Unavailable MICHAEL DEGROOT Attending Unavailable SELF Referring Unavailable OLGUIN, TANG L Primary Care Unavailable OLGUIN, TANG L Primary Care Unavailable OLGUIN, TANG L Attending Unavailable OLGUIN, TANG L Primary Care Unavailable OLGUIN, TANG L Referring Unavailable OLGUIN, TANG L Primary Care Unavailable OLGUIN, TANG L Attending Unavailable OLGUIN, TANG L Primary Care Unavailable OLGUIN, TANG L Referring Unavailable OLGUIN, TANG L Primary Care Unavailable OLGUIN, TANG L Referring Unavailable OLGUIN, TANG L Primary Care Unavailable TOSHIA MICHAEL Referring Unavailable OLGUIN, TANG L Primary Care Unavailable Allergies Allergy Classification Reported Allergen(s) Allergy Type Date of Onset Reaction(s) Facility (20 sources) HYDROmorphone; Translations: [hydromorphone HCl] Drug Allergy 1 Chest tightness [facility] (20 sources) milnacipran; Translations: [milnacipran HCl] Drug Allergy 1 Other [facility] Comment on above: pt does not remember (20 sources) pregabalin; Translations: [PREGABALIN] Drug Allergy 9 Rash, Cough, Itching [facility] Work Phone: (20 sources) rivaroxaban; Translations: [RIVAROXABAN] Drug Allergy 5 Other: See Comments, GI Upset [facility] (20 sources) Warfarin; Translations: [WARFARIN SODIUM] Drug Allergy 2 Other: See Comments [facility] Work Phone: (20 sources) atorvastatin; Translations: [ATORVASTATIN] Drug Allergy 9 Other: See Comments [facility] (20 sources) HYDROmorphone; Translations: [HYDROMORPHONE (BULK)] Drug Allergy 4 Other: See Comments [facility] (20 sources) HYDROmorphone; Translations: [HYDROMORPHONE] Drug Allergy 7 Other: See Comments [facility] (20 sources) Miconazole; Translations: [MICONAZOLE] Drug Allergy 4 Itching [facility] (20 sources) milnacipran; Translations: [MILNACIPRAN] Drug Allergy 2 Mental Status Change, Other: See Comments [facility] (20 sources) Morphine; Translations: [MORPHINE] Drug Allergy 9 Shortness of Breath [facility] (20 sources) Warfarin; Translations: [WARFARIN] Drug Allergy 7 Other: See Comments [facility] (20 sources) predniSONE; Translations: [PREDNISONE] Drug Allergy 2 Itching [facility] Work Phone: (1 source) predniSONE Drug Allergy 5 [facility] Repository (1 source) pregabalin Drug Allergy 5 [facility] Repository (1 source) rivaroxaban Drug Allergy [facility] Repository Medications Current Medications Medication Drug Class(es) Dates Sig (Normalized) Sig (Original) [id number] 200 actuat albuterol 0.09 mg/actuat metered dose inhaler (20 sources) beta2-Adrenergic Agonist Start: 08-19-2024 take 2 puff(s) by inhalation every four hours as needed for wheezing albuterol HFA (PROVENTIL HFA, VENTOLIN HFA) 90 mcg/actuation inhaler Indications: SOB (shortness of breath) Inhale 2 puffs as instructed every 4 hours as needed for wheezing/shortnes s of breath. 2 each 1 08/19/2024 Active Start: 12-05-2021 End: 2022 albuterol (PROVENTIL) 2.5 [...] 18 g 1 03/16/2020 10/03/2020 Discontinued Start: 10-30-2019 End: 07-21-2024 Albuterol Sulfate 1 INHALER inhaler Discontinued 2 NMA INHALATION EVERY 4 HOURS NEEDED as needed for Wheezing October 30, 2019 12:00am July 21, 2024 1:10pm Start: 10-30-2019 take 1 puff(s) by in halation every four hours as needed Albuterol Sulfate Active 2 PUFF INHALATION EVERY 4 HOURS NEEDED October 30, 2019 12:00am Start: 02-27-2019 End: 01-18-2021 albuterol (PROVENTIL) 2.5 [...] for wheezing/shortness of breath. Use over 5-15minutes. albuterol 0.833 mg/ml / ipratropium bromide 0.167 mg/ml inhalation solution (20 sources) Anticholinergic, beta2-Adrenergic Agonist Start: take 3 mL by inhalation every four hours as needed ipratropium-albut elena (DUONEB) 0.5 mg-3 mg(2.5 mg base)/3 mL nebu Inhale 3 mL as instructed every 4 hours as needed for wheezing/shortnes s of breath. 3 mL 3 02/16/2021 Active Comment on above: Inhale 3 mL as instr ucted every 4 hours as needed for wheezing/shortness of breath. amylase [id number] unt / lipase [id number] unt / protease [id number] unt delayed release oral capsule (20 sources) Start: End: 023 take 3 capsules by mouth three times daily at mealtime tcrsrw-kxhliuxa-b mylase (CREON) 36,000-114,000- 180,000 unit delayed release capsule Take 3 capsules by mouth three times daily with meals. 810 capsule 03/20/2022 Active Start: 01-04-2022 End: 03-17-2022 take 3 capsules by mouth three times daily at mealtime cclhsv-lajyzydf-cntpofh (CREON) 36,000-114,000- 180,000 unit delayed release capsule Take 3 capsules by mouth three times daily with meals. 01/04/2022 03/17/2022 Discontinued Start: 10-25-2021 End: 12-11-2022 Sjrvhi-Tekecakb-Afftivk (Cre on) 36,000-114,000- 180,000 unit capsule,delayed release(DR/EC) Discontinued 0 PO .COMPLEX 300 October 25, 2021 12:00am December 11, 2022 2:09pm take 1 capsule with snacks, take 2 capsules with every meal Comment on above: Take 3 capsules by [...] Blood-Glucose Meter monitoring kit (1 source) Start: End: Blood-Glucose Meter monitoring kit Indications: Lightheaded [...] daily. 90 tablet 3 05/18/2020 05/28/2021 Discontinued Start: 01-22-2017 take 1 capsule by mo [facility] at bedtime Cetirizine (Zyrtec) 10 MG capsule Active 10 mg PO AT BEDTIME January 22, 2017 1:00am Comment on above: Take 1 tablet by asim th once daily. Take 1 tablet by asim th once daily clobetasol propionate 0.0005 mg/mg topical ointment (8 sources) Corticosteroid Start: End: Clobetasol 0.05 % ointment Active 1 NMA TOPICAL .COMPLEX 60 January 29, 2024 5:23pm 1 applic topical apply bid X 2 weeks for outbreaks and then daily for maintenance codeine phosphate 2 mg/ml / guaiFENesin 20 [...] (10 sources) Low Molecular Weight Heparin Start: 023 End: inject 40 mg by subcutaneous injection every twelve hours enoxaparin (LOVENOX) 40 mg/0.4 mL Inject 0.4 mL subcutaneously q 12 HR for 14 days. 11.2 mL 0 05/28/2022 06/11/2022 Active Comment on above: Inject 0.4 mL subcut aneously q 12 HR for 14 days. escitalopram 10 mg oral tablet (20 sources) Serotonin Reuptake Inhibitor Start: 025 take 1 tablet by mouth once daily at bedtime escitalopram oxalate (LEXAPRO) 10 mg tablet Indications: Perimenopausal disorder Take 1 tablet by mouth daily at bedtime. For mood 90 tablet 1 08/19/2024 Active Start: 06-23-2022 End: 08-19-2024 take 1 tablet by mouth once daily at bedtime escitalopram oxalate (LEXAPRO) 5 mg tablet Indications: Perimenopausal disorder Take 1 tablet by mouth daily at bedtime. For mood 30 tablet 5 05/16/2024 08/19/2024 Discontinued Comment on above: Take 1 tablet by asim th daily at bedtime. For mood estradiol 0.1 mg/ml vaginal cream (4 sources) Estrogen Start: 4 Estradiol 0.01 % (0.1 mg/gram) cream Active 1 NMA VAGINAL TWICE A WEEK 42.5 January 29, 2024 1:00am use just a fingertip amount to the external vaginal area fluticasone propionate 0.05 mg/actuat metered dose nasal spray (20 sources) Corticosteroid Start: 4 take 2 spray(s) by mouth once daily fluticasone (FLONASE) 50 mcg/actuation nasal spray Use 2 Sprays in each nostril once daily. Rinse mouth after use. 1 Each 2023 Active Start: 09-06-2022 take 1 puff(s) by mo uth twice daily fluticasone (FLOVENT HFA) 110 mcg/actuation [...] use. 1 Each 01/26/2021 01/04/2022 Discontinued Start: 10-30-2019 End: 12-11-2022 Fluticasone Propionate (Flov ent Hfa) 1 INHALER inhaler Discontinued 1 NMA INHALATION TWICE A DAY October 30, 2019 12:00am December 11, 2022 2:08pm Start: 10-30-2019 End: 12-11-2022 take 1 puff(s) by inhalation twice daily Fluticasone Propionate (Flovent Hfa) 1 INHALER inhaler Discontinued 1 PUFF INHALATION TWICE A DAY October 29, 2019 11:00pm December 11, 2022 1:08pm Start: 10-30-2019 End: 12-11-2022 take 1 puff(s) by inhalation twice daily Fluticasone Propionate (Flovent Hfa) 1 INHALER inhaler Discontinued 1 PUFF INHALATION TWICE A DAY October 30, 2019 12:00am December 11, 2022 2:08pm Start: 10-30-2019 take 1 puff(s) by in halation twice daily Fluticasone Propionate (Flovent Hfa) 1 INHALER inhaler Active 1 PUFF INHALATION TWICE A DAY October 29, 2019 11:00pm Start: 10-30-2019 take 1 puff(s) by in halation twice daily Fluticasone Propionate (Flovent Hfa) 1 INHALER inhaler Active 1 PUFF INHALATION TWICE A DAY October 30, 2019 12:00am Start: 10-30-2019 take 1 puff(s) by in halation twice daily Fluticasone Propionate Active 1 PUFF INHALATION TWICE A DAY October 30, 2019 12:00am Start: 03-14-2019 End: 09-06-2022 take 1 puff(s) by mouth twice daily fluticasone (FLOVENT HFA) 110 mcg/actuation inhaler Indications: Cough Inhale 1 Puff as instructed twice daily. Rinse mouth after using. 1 Inhaler 1 03/14/2019 10/17/2021 Discontinued Comment on above: Inhale 1 Puff as ins tructed twice daily. Rinse mouth after using. Use 2 Sprays in each nostril once daily. Rinse mouth after use. hyoscyamine sulfate 0.125 mg oral tablet (4 sources) Start: 08-08-2024 Hyoscyamine Sulfate 0.125 mg tablet Active 0.125 mg PO 2 to 4 times per day as needed for dyspepsia August 08, 2024 12:00am take 0.125 mg under the tongue every four hours as needed hyoscyamine sublingual (LEVSIN SL) 0.125 mg Dissolve 0.125 mg under the tongue every 4 hours as needed. Active Miscellaneous Medical Supply (BLOOD PRESSURE CUFF) (20 [...] Comment on above: 1 Each once daily. Multivit With Min-Folic Acid (Women's Multivitamin Gummies) 200 mcg tablet,chewable (4 sources) Start: 11-22-2023 take 1 tablet by mouth once daily Multivit With Min-Folic Acid (Women's Multivitamin Gummies) 200 mcg tablet,chewable Active 1 {tbl} PO DAILY November 22, 2023 12:00am Start: 11-22-2023 take 1 tablet by mouth once Mu ltivit With Min-Folic Acid (Women's Multivitamin Gummies) 200 mcg tablet,chewable Active {tbl} PO November 22, 2023 12:00am Nebulizer Accessories misc (20 sources) Start: 02-26-2019 Nebulizer Acce ssories misc Indications: [...] 02/26/2019 Suspended Start: 02-26-2019 Nebulizer Acce ssories misc Indications: [...] capsule (20 sources) Proton Pump Inhibitor Start: 2 End: 4 take 1 capsule by mouth twice daily omeprazole (PRILOSEC) 40 mg capsule Take 1 capsule by mouth twice daily. Open capsules 180 capsule 2 08/23/2022 Active Start: 11-06-2014 End: 07-26-2020 take 1 capsule by mouth at bedtime Omeprazole (Prilosec) 40 MG capsule Discontinued 40 mg PO AT BEDTIME November 06, 2014 12:00am July 26, 2020 1:12pm Start: 11-06-2014 End: 2022 take 1 capsule by mouth once daily Omeprazole 40 mg capsule,delayed release(DR/EC) Discontinued 40 mg PO DAILY October 19, 2021 12:00am November 18, 2021 11:09am Comment on above: Take 1 capsule by mo [facility] once daily. Take 1 capsule by mo [facility] twice daily. Open capsules ondansetron 4 mg disintegrating oral tablet (20 sources) Serotonin-3 Receptor Antagonist Start: 05-29-19 End: 07-22-19 25 take 1 tablet by mouth every eight hours as needed ondansetron orally disintegrating (ZOFRAN ODT) 4 mg disintegrating tablet Take 1 tablet by mouth every 8 hours as needed for nausea/vomiting. 20 tablet 1 05/28/2022 Active Start: 06-25-2019 End: 08-12-2021 take 1 tablet by mouth every eight hours as needed for nausea Ondansetron 4 MG tablet Discontinued 4 mg PO EVERY 8 HOURS NEEDED as needed for Nausea October 15, 2019 12:00am August 12, 2021 4:01pm Start: 06-04-2019 End: 04-23-2022 take 1 tablet by mouth every six hours as needed for nausea Ondansetron 4 MG tablet Discontinued 4 mg PO EVERY 6 HOURS NEEDED as needed for Nausea October 30, 2019 1:09am April 23, 2022 11:05am Comment on above: Take 1 tablet by asim th every 8 hours as needed for nausea/vomiting. pantoprazole 40 mg delayed release oral tablet (20 sources) Proton Pump Inhibitor Start: 04-20-19 take 40 mg by mouth once daily Pantoprazole Active 40 MG PO DAILY April 20, 2023 1:00am Start: 12-11-2022 End: 12-14-2024 take 1 tablet by mouth once daily pantoprazole DR (PROTONIX) 40 mg tablet Take 1 tablet by mouth once daily. 180 tablet 06/17/2024 12/14/2024 Active Start: 06-05-2022 End: 12-02-2022 take 1 [...] 1 tablet by asim th once daily. Pantoprazole 40 mg tablet,delayed release (DR/EC) (2 sources) Start: 04-20-19 take 1 tablet by mouth once daily Pantoprazole 40 mg tablet,delayed release (DR/EC) Active 40 mg PO DAILY April 20, 2023 1:00am phentermine hydrochloride 37.5 mg oral tablet (3 sources) Sympathomimetic Amine Anorectic Start: 05-17-19 End: 06-16-19 take 1 tablet by mouth once daily Phentermine HCl (ADIPEX-P) 37.5 mg tablet Indications: IFG (impaired fasting glucose) , Class 1 obesity with body mass index (BMI) of 33.0 to 33.9 in adult, unspecified obesity type, unspecified whether serious comorbidity present Take 1 tablet by mouth once daily for 30 days. BMI 33.65 30 tablet 2 05/16/2024 06/15/2024 Active Pnv #57-Uikg-Qbmwe Acid-Dha (2 sources) Start: 04-20-19 take 1 capsule by mouth once daily Pnv #70-Yike-Dxsai Acid-Dha Active 1 CAP PO DAILY April 20, 2023 1:00am Start: 04-20-2023 take 1 capsule by mo [facility] once daily Pnv #15-Nchp-Xbwnf Acid-Dha Active 1 CAP PO DAILY April 20, 2023 12:00am rOPINIRole 0.25 mg oral tablet (20 sources) Nonergot Dopamine Agonist Start: 08-19-2024 take 1 tablet by mouth twice daily as needed rOPINIRole (REQUIP) 0.25 mg tablet Indications: RLS (restless legs syndrome) Take 1 tablet by mouth two times a day as needed (restless legs). 60 tablet 2 08/19/2024 Active Start: 10-22-2023 take 1 tablet by asim at bedtime Ropinirole 0.25 mg tablet Active 0.25 mg PO AT BEDTIME October 22, 2023 12:00am Start: 02-22-2023 End: 08-19-2024 take 0.5-1 mg by mouth every twenty-four hours as needed rOPINIRole (REQUIP) 0.5 mg tablet Take 1-2 tablets by mouth at bedtime as needed (restless legs). 60 tablet 5 12/04/2023 08/19/2024 Discontinued Start: 06-23-2022 take 0.5-1 mg by asim every twenty-four hours as needed rOPINIRole (REQUIP) 0.5 mg tablet Take 1-2 tablets by mouth at bedtime as needed (restless legs). 60 tablet 5 06/23/2022 Active Start: 03-10-2014 End: 12-11-2022 take 1 tablet by mouth at bedtime Ropinirole (Requip) 4 MG tablet Discontinued 4 mg PO AT BEDTIME March 10, 2014 1:00am December 11, 2022 2:09pm Comment on above: Take 1 tablet by asim daily at bedtime. Take 1-2 tablets by mouth at bedtime as needed (restless legs). sucralfate 100 mg/ml oral suspension (20 sources) Aluminum Complex Start: 08-23-2022 End: 02-19-2023 take 10 mL by mouth four times daily sucralfate (CARAFATE) 100 mg/mL suspension Take 10 mL by mouth four times daily. 3600 mL 1 08/23/2022 02/19/2023 Active Start: 11-18-2021 End: 05-12-2022 take 1 tablet by mouth before mealtime Sucralfate 1 gram tablet Discontinued 1 g PO before meals 90 November 18, 2021 12:00am May 12, 2022 11:40am Comment on above: Take 1 tablet by asim th before meals and at bedtime. Take 10 mL by mouth four times daily. valACYclovir 500 mg oral tablet (20 sources) Herpesvirus Nucleoside Analog DNA Polymerase Inhibitor, Herpes Simplex Virus Nucleoside Analog DNA Polymerase Inhibitor, Herpes Zoster Virus Nucleoside Analog DNA Polymerase Inhibitor Start: take 1 tablet by mouth at bedtime Valacyclovir 500 mg tablet Active 500 mg PO AT BEDTIME April 20, 2023 1:00am Start: 02-22-2023 End: 12-04-2023 take 1 tablet by mouth twice daily valACYclovir (VALTREX) 500 mg tablet Take 1 tablet by mouth two times a day. 60 tablet 5 12/04/2023 Active Start: 12-06-2016 End: 12-11-2022 take 1 tablet by mouth at bedtime Valacyclovir (Valtrex) 500 MG tablet Discontinued 500 mg PO AT BEDTIME December 06, 2016 12:00am December 11, 2022 2:09pm Start: 12-06-2016 End: 12-11-2022 take 1 tablet by mouth twice daily [...] / HYDROcodone bitartrate 5 mg oral tablet (20 sources) Opioid Agonist Start: 10-02-2022 End: 04-20-2023 Hydrocodone-Acetami nophen 5-325 mg tablet Discontinued 1 {tbl} PO EVERY 6 HOURS NEEDED as needed for Pain 10 October 02, 2022 April 20, 2023 8:34am Start: 10-02-2022 End: 04-20-2023 take 1 tablet by mouth every six hours as needed Hydrocodone-Acetaminophen Discontinued 1 TABLET PO EVERY 6 HOURS NEEDED 10 3 October 02, 2022 April 20, 2023 8:34am Start: 07-25-2022 End: 04-20-2023 Hydrocodone-Acetaminophen 5- 325 mg tablet Discontinued 1 {tbl} PO EVERY 4 HOURS NEEDED as needed for Pain 10 July 25, 2022 April 20, 2023 8:34am Start: 07-25-2022 End: 04-20-2023 take 1 tablet by mouth every four hours as needed Hydrocodone-Acetaminophen Discontinued 1 TABLET PO EVERY 4 HOURS NEEDED 10 July 25, 2022 April 20, 2023 8:34am Start: 03-22-2022 End: 03-29-2022 take 1 tablet by mouth every six hours as needed for pain HYDROcodone-acetaminophen (NORCO) 5-325 mg per tablet Indications: Carpal tunnel syndrome of left wrist Take 1 tablet by mouth every 6 hours as needed for pain for up to 7 days. 10 tablet 0 03/22/2022 03/29/2022 Active Start: 08-11-2020 End: 08-12-2021 Hydrocodone-Acetaminophen 1 TABLET tablet Discontinued 1 {tbl} PO EVERY 4 HOURS NEEDED as needed for Pain 14 2 August 11, 2020 August 12, 2021 4:01pm Start: 08-11-2020 End: 08-12-2021 take 1 tablet by mouth every four hours as needed Hydrocodone-Acetaminophen Discontinued 1 TABLET PO EVERY 4 HOURS NEEDED 14 2 August 11, 2020 August 12, 2021 4:01pm Start: 07-30-2020 End: 08-12-2021 Hydrocodone-Acetaminophen 1 TABLET tablet Discontinued 1 {tbl} PO EVERY 6 HOURS NEEDED as needed for Pain 10 July 30, 2020 August 12, 2021 4:01pm Start: 07-30-2020 End: 08-12-2021 take 1 tablet by mouth every six hours as needed Hydrocodone-Acetaminophen Discontinued 1 TABLET PO EVERY 6 HOURS NEEDED 10 July 30, 2020 August 12, 2021 4:01pm Start: 06-25-2019 End: 06-28-2019 Hydrocodone-Acetaminophen 1 TABLET tablet Discontinued 1 {tbl} PO EVERY 6 HOURS NEEDED as needed for Pain 10 June 25, 2019 June 27, 2019 12:00am June 28, 2019 12:02am Start: 06-25-2019 End: 06-28-2019 take 1 tablet by mouth every six hours as needed Hydrocodone-Acetaminophen Discontinued 1 TABLET PO EVERY 6 HOURS NEEDED 12 12June 25, 2019 June 28, 2019 12:02am Comment on above: Take 1 tablet by asim th every 6 hours as needed for pain for up to 7 days. amoxicillin 500 mg oral tablet (20 sources) Penicillin-class Antibacterial Start: End: take 1 tablet by mouth three times daily Amoxicillin 500 mg tablet Discontinued 500 mg PO THREE TIMES A DAY January 23, 2023 1:00am April 20, 2023 8:34am Start: 11-30-2021 End: 12-10-2021 take 2 capsules by mouth twice daily Amoxicillin 500 mg capsule Discontinued 1000 mg PO TWICE A DAY 40 November 30, 2021 12:00am December 09, 2021 12:00am December 10, 2021 12:09am Start: 11-30-2021 End: 12-10-2021 take 1000 mg by mouth twice daily Amoxicillin Discontinued 1000 MG PO TWICE A DAY 40 November 30, 2021 12:00am December 10, 2021 12:09am amoxicillin 500 mg / clavulanate 125 mg oral tablet (10 sources) Penicillin-class Antibacterial Start: 06-08-2023 End: 10-22-2023 Amoxicillin-Pot Clavulanate 500-125 mg tablet Discontinued 1 {tbl} PO TWICE A DAY June 08, 2023 12:00am October 22, 2023 11:37am Start: 2023 End: 05-29-2023 take 1 tablet by mouth twice daily amoxicillin-clavulanate potassium (AUGMENTIN) 875-125 mg per tablet [...] two times a day for 7 days. ascorbic acid 1000 mg oral tablet (4 sources) Vitamin C take 1 tablet by mouth once daily Ascorbic Acid (VITAMIN C) 1,000 mg tablet Take 1,000 mg by mouth once daily. 0 Active Comment on above: Take 1,000 mg by asim th once daily. benzonatate 200 mg oral capsule (8 sources) Non-narcotic Antitussive Start: End: take 1 capsule by mouth three times daily as needed for cough Benzonatate 200 mg capsule Discontinued 200 mg PO THREE TIMES A DAY as needed for cough May 26, 2024 12:00am July 02, 2024 4:58pm Start: 01-07-2024 End: 01-29-2024 take 1 capsule by mouth three times daily as needed for cough Benzonatate 200 mg capsule Discontinued 200 mg PO THREE TIMES A DAY as needed for cough January 07, 2024 12:00am January 29, 2024 4:47pm bifidobacterium animalis [id number] unt / bifidobacterium longum [id number] unt / lactobacillus acidophilus [id number] unt oral capsule (1 source) Start: 04-18-2018 End: 06-30-2020 take 1 capsule by mouth once daily L.acidoph-B.lactis-B.longum (FLORAJEN3) 460 mg (7.5-6- 1.5 bill. cell) cap Take 1 capsule by mouth once daily. 30 capsule 2 04/18/2018 06/30/2020 Discontinued (Course of therapy completed) 24 hr buPROPion hydrochloride 150 mg extended release oral tablet (1 source) Aminoketone Start: 04-07-2019 End: 06-30-2020 take 1 tablet by mouth once daily at breakfast buPROPion XL (WELLBUTRIN XL) 150 mg 24 hr tablet Indications: Perimenopausal disorder Take 1 tablet by mouth daily with breakfast. 90 tablet 1 04/07/2019 06/30/2020 Discontinued (Discontinued by another Health Care Provider) cholecalciferol 0.05 mg oral tablet (20 sources) Vitamin D Start: 03-11-2020 End: 06-06-2023 take 1 tablet by mouth once daily cholecalciferol (VITAMIN D3) 50 mcg (2,000 unit) tablet Take 1 tablet by mouth once daily. 90 tablet 3 03/11/2020 05/24/2021 Discontinued Start: 05-08-2019 End: 10-19-2021 take 1 capsule by mouth once daily Cholecalciferol (Vitamin D3) 2,000 UNIT capsule Discontinued 2000 U PO DAILY May 08, 2019 1:00am October 19, 2021 4:10pm Comment on above: Take 1 tablet by asim once daily. Cholestyramine Resin (20 sources) Bile Acid Sequestrant Start: End: take 1 dose by mouth once daily Cholestyramine (With Sugar) 4 gram powder Discontinued 2 g PO DAILY April 20, 2023 1:00am October 22, 2023 11:39am administer w/meal; avoid other meds within 1hr before or 4-6hr after dose Start: 04-20-2023 take 1 dose by mouth once yola y Cholestyramine (With Sugar) Active 2 GM PO DAILY April 20, 2023 1:00am administer w/meal; avoid other meds within 1hr before or 4-6hr after dose Start: 04-20-2023 take 1 dose by mouth once yola y Cholestyramine (With Sugar) Active 2 GM PO DAILY April 20, 2023 12:00am administer w/meal; avoid other meds within 1hr before or 4-6hr after dose Start: 06-17-2020 End: 01-04-2022 take 1 dose by mouth three times daily at mealtime cholestyramine (QUESTRAN) 4 gram packet Take 1 Packet by mouth three times daily with meals. 90 Packet 06/17/2020 01/04/2022 Discontinued Comment on above: Take 1 Packet by asim three times daily with meals. COMPOUNDED PRESCRIPTION [...] times daily as needed for muscle spasms Cyclobenzaprine 10 mg tablet Discontinued 10 mg PO THREE TIMES A DAY as needed for Muscle Spasm July 25, 2022 12:00am April 20, 2023 8:34am Comment on above: Take 1 tablet by asim three times daily as needed for muscle [...] therapy Not being used for IV usage. dextromethorphan hydrobromide 15 mg / guaiFENesin 400 mg / pseudoephedrine hydrochloride 60 mg oral tablet (5 sources) alpha-Adrenergic Agonist, Uncompetitive L-axgopq-U-aspartate Receptor Antagonist, Sigma-1 Agonist Start: 2023 End: 2024 take 4 tablets by mouth every twenty-four hours as needed Avxxazaypfwugkd-We-Uy aifenesin (Capmist Dm) 60-15-400 mg tablet Discontinued 1 {tbl} PO EVERY 4-6 HOURS as needed for cold symptoms May 03, 2023 1:00am July 02, 2024 4:59pm do not exceed 4 doses per 24 hrs diclofenac sodium 0.01 mg/mg topical gel (20 [...] on above: Take 1 capsule by mo [facility] four times daily as needed. doxycycline hyclate 100 mg oral tablet (20 sources) Tetracycline-class Drug Start: 2022 End: 2022 take 1 tablet by mouth twice daily Doxycycline Hyclate 100 mg tablet Discontinued 100 mg PO TWICE A DAY 29 12April 23, 2022 11:25am May 02, 2022 1:00am May 03, 2022 1:08am Start: 02-17-2022 End: 02-24-2022 take 1 tablet by mouth twice daily [...] days. 20 tablet 0 12/27/2021 01/06/2022 Active Start: 11-10-2021 End: 11-18-2021 take 1 tablet by mouth twice daily Doxycycline Hyclate 100 mg tablet Discontinued 100 mg PO TWICE A DAY November 10, 2021 12:00am November 18, 2021 11:05am Start: 10-27-2021 End: 11-10-2021 take 1 capsule by mouth twice daily Doxycycline Hyclate 100 mg capsule Discontinued 100 mg PO TWICE A DAY October 27, 2021 12:00am November 09, 2021 12:00am November 10, 2021 12:04am Comment on above: Take 1 tablet by [facility] twice daily for 10 days. [facility] DULoxetine 30 mg delayed release oral capsule (20 sources) Serotonin and Norepinephrine Reuptake Inhibitor Start: 04-20-19 End: 10-22-19 take 1 capsule by mouth once daily Duloxetine 30 mg capsule,delayed release(DR/EC) Discontinued 30 mg PO DAILY April 20, 2023 1:00am October 22, 2023 11:38am Start: 04-11-2021 End: 01-04-2022 DULoxetine (CYMBALTA) 20 mg capsule Take 1 capsule every day x 2 weeks then 1 capsule every other day x 2 weeks then stop medication (tapering off) 21 capsule 0 04/11/2021 01/04/2022 Discontinued Start: 02-16-2021 End: 04-11-2021 take 1 capsule by mouth once daily [...] off 30 capsule 3 05/26/2020 10/03/2020 Discontinued Start: 03-02-2013 End: 08-12-2021 Duloxetine 60 MG capsule Dis continued 30 mg PO AT BEDTIME March 02, 2013 1:00am August 12, 2021 4:32pm Start: 03-02-2013 End: 08-12-2021 take 30 mg by mouth at bedtime Duloxetine Discontinued 30 MG PO AT BEDTIME March 02, 2013 1:00am August 12, 2021 4:32pm Comment on above: Take 1 capsule every [...] sulfate 140 mg extended release oral tablet (20 sources) Start: 2 End: 2 take 1 [...] breakfast. 30 tablet 5 03/11/2020 03/30/2021 Discontinued Start: 10-30-2019 End: 10-19-2021 take 1 tablet by mouth once daily Ferrous Sulfate 325 MG tablet Discontinued 325 mg PO DAILY October 30, 2019 12:00am October 19, 2021 4:10pm Comment on above: Take 1 tablet by asim th twice daily with meals. fluconazole 150 mg oral tablet (5 sources) Azole Antifungal Start: 05-07-2024 End: 06-06-2024 Fluconazole 150 mg tablet Discontinued 150 mg PO .COMPLEX 2 May 07, 2024 1:00am June 06, 2024 7:12am 150 mg PO take one po now and repeat in 3 days Start: 12-05-2021 End: 12-05-2021 fluconazole (DIFLUCAN) 150 m g tablet Indications: Vaginal yeast infection Take 1 tablet by mouth one time only for 1 dose. Repeat in 3 days as needed. 2 tablet 0 12/05/2021 12/05/2021 Active Comment on above: Take 1 tablet by asim one time only for 1 dose. Repeat in 3 days as needed. hydroCHLOROthiazide 12.5 mg oral capsule (1 source) [...] route twice daily as needed (hemorrhoids/rectal pain). hydrocortisone 10 mg/ml / neomycin 3.5 mg/ml / polymyxin b 03728 unt/ml otic solution (6 sources) Aminoglycoside Antibacterial, Polymyxin-class Antibacterial, Corticosteroid Start : 01-23 End: 02-02 Adfdatvs-Axltthifc-La 3.5-10,000-1 mg/mL-unit/mL-% solution Discontinued 4 NMA OTIC THREE TIMES A DAY 12 19January 23, 2023 1:00am February 01, 2023 1:00am February 02, 2023 1:05am to affected ear as instructed Start: 01-23-2023 End: 02-02-2023 Wdxqujxc-Ivummtrmb-Mp Discon tinued 4 DRP OTIC THREE TIMES A DAY 12 19January 23, 2023 1:00am February 02, 2023 1:05am to affected ear as instructed iv contrast (will be provide d with radiology test) (2 sources) Start: 03-18-2021 End: 03-19-2021 iv contrast (will be provide d with radiology test) Indications: Blood in stool [...] administration guidelines link. 1 Each 02/16/2021 02/17/2021 Lacto 51-Bifid 3-L.Lact-S.Ther (18 sources) Start: 10-30-2019 End: 07-26-2020 take 3 tablets by mouth once daily Lacto 51-Bifid 3-L.Lact-S.Ther Discontinued 1 TABLET PO DAILY October 30, 2019 12:59am July 26, 2020 1:12pm Start: 10-30-2019 End: 07-26-2020 take 3 tablets by mouth once daily Lacto 51-Bifid 3-L.Lact-S.Ther Discontinued 1 TABLET PO DAILY October 29, 2019 11:00pm July 26, 2020 12:12pm Start: 10-30-2019 End: 07-26-2020 take 3 tablets by mouth once daily Lacto 51-Bifid 3-L.Lact-S.Ther Discontinued 1 TABLET PO DAILY October 30, 2019 12:00am July 26, 2020 1:12pm Lacto 51-Bifid 3-L.Lact-S.Ther 1 EACH capsule (4 sources) Start: 10-30-2019 End: 07-26-2020 take 1 capsule by mouth once daily Lacto 51-Bifid 3-L.Lact-S.Ther 1 EACH capsule Discontinued 1 {tbl} PO DAILY October 30, 2019 12:00am July 26, 2020 1:12pm lactobacillus rhamnosus gg [id number] unt oral capsule (20 sources) Start: 01-26-2021 End: 02-27-2022 take 1 capsule by mouth once daily lactobacillus rhamnosus (CULTURELLE) 15 billion cell capsule Take 1 capsule by mouth once daily. 30 capsule 01/26/2021 02/27/2022 Discontinued (Course of therapy completed) Comment on above: Take 1 capsule by [facility] once daily. levoFLOXacin 500 mg oral tablet (8 sources) Quinolone Antimicrobial Start: 02-27-2024 End: 05-07-2024 take 1 tablet by mouth every twenty-four hours Levofloxacin 500 mg tablet Discontinued 500 mg PO Q24H February 27, 2024 1:00am May 07, 2024 11:23am Start: 01-07-2024 End: 01-29-2024 take 1 tablet by mouth every twenty-four hours Levofloxacin 500 mg tablet Discontinued 500 mg PO Q24H 7 January 07, 2024 12:00am January 29, 2024 4:47pm losartan potassium 50 mg oral tablet (20 sources) Angiotensin 2 Receptor Annamarie Start: 01-22-2017 End: 04-20-2023 take 1 tablet by mouth once daily Losartan 50 mg tablet Discontinued 50 mg PO DAILY 90 April 23, 2022 1:00am April 20, 2023 8:34am Comment on above: Take 50 mg by [...] doses. magnesium gluconate 550 mg oral tablet (20 sources) Start: 10-30-2019 End: 04-20-2023 Magnesium 30 MG tablet Discontinued 500 mg PO DAILY October 30, 2019 12:00am April 20, 2023 8:34am Start: 10-30-2019 End: 04-20-2023 take 500 mg by mouth once daily Magnesium Discontinued 500 MG PO DAILY October 30, 2019 12:00am April 20, 2023 8:34am Start: 10-30-2019 take 30 mg by mouth once daily Magnesium Active 30 MG PO DAILY October 30, 2019 12:00am End: 03-18-2021 take 1 tablet by mouth [...] 1 tablet by asim th once daily. meloxicam 15 mg oral tablet [...] succinate 25 mg extended release oral tablet (20 sources) beta-Adrenergic Annamarie Start: 0 End: take 1 tablet by mouth once daily Metoprolol Succinate 25 MG tablet extended release 24 hr Discontinued 25 mg PO DAILY October 30, 2019 12:00am October 19, 2021 4:10pm Comment on above: Take 1 tablet by asim daily at bedtime. FOR blood pressure naproxen 500 mg oral tablet (20 sources) Nonsteroidal Anti-inflammatory Drug Start: End: take 1 tablet by mouth twice daily as needed for pain Naproxen (Naprosyn) 500 mg tablet Discontinued 500 mg PO TWICE A DAY as needed for pain July 25, 2022 12:00am April 20, 2023 8:35am Start: 02-16-2022 End: 04-23-2022 take 1 tablet by mouth twice daily as needed for pain Naproxen (Naprosyn) 500 mg tablet Discontinued 500 mg PO TWICE A DAY as needed for pain February 16, 2022 1:00am April 23, 2022 11:05am Start: 08-24-2016 End: 03-08-2017 take 1 tablet by mouth twice daily Naproxen 500 MG tablet Discontinued 500 mg PO TWICE A DAY August 24, 2016 12:00am March 08, 2017 1:46pm oxyCODONE hydrochloride 5 mg oral tablet (20 sources) Opioid Agonist Start: 05-28-2022 End: 06-06-2023 take 1 tablet by mouth every six hours as needed for pain oxyCODONE IR (ROXICODONE) 5 mg immediate release tablet Indications: Post-op pain Take 1 tablet by mouth every 6 hours as needed for pain. 8 tablet 05/28/2022 06/06/2023 Discontinued Comment on above: Take 1 tablet by asim every 6 hours as needed for pain. Pnv #[id number] Acid-Dha 35 mg iron-5 mg iron-1 mg capsule (4 sources) Start: 04-20-2023 End: 10-22-2023 Pnv #[id number] Acid-Dha 35 mg iron-5 mg iron-1 mg capsule Discontinued 1 NMA PO DAILY April 20, 2023 1:00am October 22, 2023 11:31am polyethylene glycol 3350 91223 mg powder for oral solution (17 sources) Osmotic Laxative Start: 01-12-2022 End: 2022 take 1 scoop(s) by mouth once daily in the morning polyethylene glycol 3350 (MIRALAX) 17 gram/dose powder Take 1 scoop of powder by mouth with 8oz of liquid once daily in the morning 507 g 2 01/12/2022 2022 Discontinued Comment on above: Take 1 scoop of powd er by mouth with 8oz of liquid once daily in the morning predniSONE 10 mg oral tablet (20 sources) Start: 12-04-2021 End: 04-23-2022 Prednisone 10 mg tablet Discontinued 10 mg PO .COMPLEX December 04, 2021 12:00am April 23, 2022 11:05am Take 4 pills for 3 days, 3 pills for 3 days, 2 pills for 3 days, take 1 pill for 3 days Start: 08-23-2021 End: 08-28-2021 take 2 tablets [...] days. 10 tablet 0 07/20/2021 07/25/2021 Active Start: 02-16-2019 End: 02-26-2019 take 2 tablets by mouth once daily at mealtime Prednisone 20 MG tablet Discontinued 40 mg PO DAILY February 16, 2019 1:00am February 22, 2019 1:00am February 26, 2019 1:12am With food Start: 02-16-2019 End: 02-26-2019 take 40 mg by mouth once daily at mealtime Prednisone Discontinued 40 MG PO DAILY February 16, 2019 1:00am February 26, 2019 1:12am With food Comment on above: Take 2 tablets by [facility] once daily for 5 days. no115/iron/folic acid ( 19 ORAL) (20 sources) End: 08-19-2024 take 1 tablet by mouth once daily no115/iron/folic acid ( 19 ORAL) Take 1 tablet by mouth once daily. 08/19/2024 Discontinued take 1 tablet by mouth once yola y no115/iron/folic acid ( 19 ORAL) Take 1 tablet by mouth once daily. Active take 1 tablet by mouth once yola y no115/iron/folic acid ( 19 ORAL) Take 1 tablet by mouth once daily. 0 Active Comment on above: Take 1 tablet by asim th once daily. 1000 ml sodium chloride 9 mg/ml injection (20 sources) Start: End: 0.9 % sodium chloride (NACL 0.9%) 0.9% solp Indications: Dehydration , History of bariatric surgery Please administer over 2 hours. 1000 mL 05/30/2022 06/06/2023 Discontinued Comment on above: Please administer ov er 2 hours. Sucralfate 100 mg/mL suspension (4 sources) Start: End: take 1 mL by mouth twice daily Sucralfate 100 mg/mL suspension Discontinued 10 mL PO TWICE A DAY 600 June 08, 2023 12:00am October 22, 2023 11:38am traZODone hydrochloride 50 mg oral tablet (14 [...] days. Apply sparingly to area for rash/itching. ursodiol 250 mg oral tablet (20 sources) Bile Acid Start: 06-08-2023 End: 10-22-2023 take 1 tablet by mouth twice daily Ursodiol 250 mg tablet Discontinued 250 mg PO TWICE A DAY 60 June 08, 2023 12:00am October 22, 2023 11:38am Start: 10-13-2022 End: 04-20-2023 take 1 tablet by mouth twice daily Ursodiol 250 mg tablet Discontinued 250 mg PO TWICE A DAY 60 October 13, 2022 3:41pm April 20, 2023 8:35am 24 hr venlafaxine 75 mg extended release oral capsule (20 sources) Serotonin and Norepinephrine Reuptake Inhibitor Start: 11-09-2021 End: 06-23-2022 take 1 capsule by mouth once daily venlafaxine ER (EFFEXOR XR) 37.5 mg 24 hr capsule Take 1 capsule by mouth once daily. 90 capsule 1 11/09/2021 06/23/2022 Discontinued Start: 09-09-2021 take 150 mg by mouth once yola y Venlafaxine Active 150 MG PO DAILY September 09, 2021 11:33am Start: 08-12-2021 End: 04-20-2023 take 1 capsule by mouth once daily Venlafaxine (Effexor Xr) 75 mg Capsule,Extended Release 24hr Discontinued 75 mg PO DAILY November 10, 2021 12:00am April 20, 2023 8:35am Comment on above: Take 75 mg by mouth once daily. Take 1 capsule by [facility] once daily. vitamin b12 1 [...] 1 tablet by asim th once daily. Zinc Acetate (4 sources) take [...] of biliary tract] Onset: 3 10-10-2022 Chronic Cardiac dysrhythmias (12 sources) Palpitations; Translations: [Palpitations] 04-07-2022 Episodic Deficiency and other anemia (19 sources) Iron deficiency anemia; Translations: [Iron deficiency anemia, unspecified] 11-30-2021 Episodic Deficiency and other anemia (8 sources) Iron deficiency anemia, unspecified; Translations: [Iron deficiency anemia, unspecified] Onset: 5 Episodic Disorders of lipid metabolism (20 sources) Hyperlipidemia; Translations: [Hyperlipidemia, unspecified] Onset: 6 01-11-2011 Chronic Esophageal disorders (20 sources) Gastroesophageal reflux disease; Translations: [Gastro-esophageal reflux disease without esophagitis] Onset: 0 01-11-2011 Chronic Essential hypertension (20 sources) Essential hypertension; Translations: [Essential (primary) hypertension] Onset: 0 10-09-2019 Chronic Comment on above: RESOLVED W/ WEIGHT L OSS SURGERY, NO MEDS Fluid and electrolyte disorders (20 sources) Mild dehydration; Translations: [Dehydration] 05-07-2018 Episodic Genitourinary symptoms and ill-defined conditions (20 sources) Female stress incontinence; Translations: [Stress incontinence (female) (male)] Onset: 4 04-02-2013 Chronic Immunizations and screening for infectious disease (18 sources) Contact with or exposure to other viral diseases; Translations: [Close exposure to COVID-19 virus] Episodic Lymphadenitis (20 sources) Acute mesenteric adenitis; Translations: [Nonspecific mesenteric lymphadenitis] 05-07-2018 Episodic Menopausal disorders (20 sources) Perimenopausal disorder; Translations: [Unspecified menopausal and perimenopausal disorder] Onset: 2 Chronic Miscellaneous mental health disorders (1 source) Insomnia; Translations: [Other insomnia not due to a substance or known physiological condition] Chronic Mood disorders (20 sources) Depressive disorder; Translations: [Depression] Onset: 9 06-29-2015 Chronic Comment on above: counseling referral, restart effexor. 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) drug therapy] Episodic Other bone disease and musculoskeletal deformities (20 sources) Posterior calcaneal exostosis; Translations: [Juvenile osteochondrosis of tarsus, right ankle] Onset: 2 10-20-2019 Chronic Other bone disease and musculoskeletal deformities (20 sources) Costal chondritis; Translations: [Chondrocostal junction syndrome [Tietze]] 05-28-2018 Episodic Other circulatory disease (1 source) Elevated blood-pressure reading without diagnosis of hypertension; Translations: [Elevated blood-pressure reading, without diagnosis of hypertension] Episodic Other circulatory disease (7 sources) Orthostatic hypotension; Translations: [Orthostatic hypotension] 12-11-2022 Episodic Other connective tissue disease (20 sources) Pain in right lower limb; Translations: [Pain in right leg] 11-19-2019 Episodic Other connective tissue disease (20 sources) Pain in left lower limb; Translations: [Pain in left leg] 08-19-2018 Episodic Other connective tissue disease (2 sources) Pain in left arm; Translations: [Pain in left arm] Episodic Other connective tissue disease (2 sources) Pain of left hand; Translations: [Pain in left hand] Episodic Other connective tissue disease (6 sources) Pain in right foot; Translations: [Pain in right foot] 04-13-2023 Episodic Other connective tissue disease (5 sources) Pain of right lower leg; Translations: [Pain in right lower leg] 05-29-2023 Episodic Other connective tissue disease (20 sources) Muscle pain; Translations: [Myalgia and myositis, unspecified] Onset: 5 Resolved: 0 11-12-2009 Episodic Other connective tissue disease (1 source) Pain in right foot; Translations: [Right foot pain] Onset: 5 Episodic Other ear and sense organ disorders (1 source) Otalgia, right ear; Translations: [Otalgia, unspecified] 12-05-2023 Episodic Other endocrine disorders (20 sources) Hypoglycemia; Translations: [Hypoglycemia, unspecified] Onset: 4 08-22-2023 Chronic Other endocrine disorders (1 source) Hypoglycemia, unspecified; Translations: [Hypoglycemia] Onset: 4 Chronic Other gastrointestinal disorders (20 sources) Irritable bowel syndrome; Translations: [Irritable bowel syndrome without diarrhea] Onset: 0 01-11-2011 Chronic Other gastrointestinal disorders (1 source) Abnormal intestinal absorption; Translations: [Intestinal malabsorption, unspecified] Chronic Other gastrointestinal disorders (19 sources) Altered bowel function; Translations: [Other specified symptoms and signs involving the digestive system and abdomen] 10-19-2021 Episodic Other gastrointestinal disorders (7 sources) Abdominal distension (gaseous); Translations: [Flatulence, eructation, and gas pain] Episodic Other gastrointestinal disorders (7 sources) Other specified symptoms and signs involving the digestive system and abdomen; Translations: [Other symptoms involving digestive system] Episodic Other gastrointestinal disorders (3 sources) History of bariatric surgical procedure; Translations: [Bariatric surgery status] Episodic Other gastrointestinal disorders (8 sources) H/O: GIT by-pass; Translations: [Bariatric surgery status] Onset: 3 Episodic Other gastrointestinal disorders (1 source) Diarrhea, unspecified; Translations: [Diarrhea, unspecified] Onset: 5 Episodic Other hereditary and degenerative nervous system conditions (20 sources) Restless legs; Translations: [Restless legs syndrome] Onset: 1 01-11-2011 Chronic Other hereditary and degenerative nervous system conditions (1 source) Restless legs syndrome; Translations: [RLS (restless legs syndrome)] Onset: 1 Chronic Other inflammatory condition of skin (1 source) Itching ; Translations: [Pruritus, unspecified] Episodic Other injuries and conditions due to external causes (1 source) Other injury of unspecified body region, initial encounter; Translations: [Hematoma] Onset: 4 Episodic Other injuries and conditions due to external causes (1 source) Unspecified injury of right foot, initial encounter; Translations: [Unspecified injury of right foot, initial encounter] Onset: 5 Episodic Other injuries and conditions due to external causes (1 source) Unspecified injury of unspecified foot, initial encounter; Translations: [Unspecified injury of unspecified foot, initial encounter] Onset: 5 Episodic Other liver diseases (20 sources) Alkaline phosphatase raised; Translations: [Abnormal levels of other serum enzymes] 10-19-2021 Episodic Other lower respiratory disease (2 sources) Pleuritic pain; Translations: [Pleurodynia] Episodic Other lower respiratory disease (1 source) Chronic cough; Translations: [Chronic cough] Episodic Other lower respiratory disease (5 sources) Dyspnea; Translations: [Shortness of breath] Onset: 5 02-16-2021 Episodic Other lower respiratory disease (1 source) Shortness of breath; Translations: [SOB (shortness of breath)] Onset: 5 Episodic Other nervous system disorders (20 sources) [...] Onset: 3 Chronic Other nervous system disorders (20 sources) Postoperative pain ; Translations: [Other acute postprocedural pain] 10-31-2019 Episodic Other nervous system disorders (2 sources) Paresthesia; Translations: [Paresthesia of skin] Episodic Other nervous system disorders (12 sources) H/O: Disorder; Translations: [Personal history of other diseases of the nervous system and sense organs] 04-07-2022 Episodic Other nervous system disorders (1 source) Abnormal sensation; Translations: [Other disturbances of skin sensation] 09-29-2024 Episodic Other non-traumatic joint disorders (19 sources) Pain in elbow; Translations: [Pain in left elbow] 08-11-2020 Episodic Other non-traumatic joint disorders (1 source) Disorder of shoulder; Translations: [Other specified joint disorders, unspecified shoulder] Episodic Other non-traumatic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 Anticoagulants: The patient has taken no anticoagulant or antiplatelet agents except for NSAID medication. ASA Grade Assessment: II - A patient with mild systemic disease. After reviewing the risks and benefits, the patient was deemed in satisfactory condition to undergo the procedure. The anesthesia plan was to use monitored anesthesia care (MAC). Immediately prior to administration of medications, the patient was re-assessed for adequacy to receive sedatives. The heart rate, respiratory rate, oxygen saturations, blood pressure, adequacy of pulmonary ventilation, and response to care were monitored throughout the procedure. The physical status of the patient was re-assessed after the procedure. After obtaining informed consent, the endoscope was passed under direct vision. Throughout the procedure, the patient's blood pressure, pulse, and oxygen saturations were monitored continuously. The Endoscope was introduced through the mouth, and advanced to the jejunum. Small bowel enteroscopy was deemed necessary. The upper GI endoscopy was accomplished without difficulty. The patient tolerated the procedure well. Scope In: 12:39:32 PM Scope Out: 12:48:05 PM Total Procedure Duration Time 0 hours 8 minutes 33 seconds Findings: The examined esophagus was normal. Evidence of a Mitchel-en-Y gastrojejunostomy was found. The gastrojejunal anastomosis was characterized by friable mucosa and an intact appearance. This was traversed. The cflfa-wk-ceaomap limb was characterized by erosion and erythema. The vzoexifi-yx-uqwtyxu limb was not examined as it could not be found. The excluded stomach was not examined as it could not be found. Biopsies were taken with a cold forceps for histology. Verification of patient identification for the specimen was done. Estimated blood loss was minimal. Using the endoscope, the video capsule enteroscope was advanced into the proximal jejunum. The video capsule was positioned 60 cm from the incisors. The examined jejunum was normal. Impression: - Normal esophagus. - Mitchel-en-Y gastrojejunostomy with gastrojejunal anastomosis characterized by friable mucosa and an intact appearance. Biopsied. - Normal examined jejunum. - Successful completion of the Video Capsule Enteroscope placement. Recommendation: - Discharge patient to home. - Resume previous diet. - Continue present medications. - Await pathology results. Procedure Code(s): --- Professional --- 68248, Small intestinal endoscopy, enteroscopy beyond second portion of duodenum, not including ileum; with biopsy, single or multiple CPT copyright 2021 [employer] [employer]. All rights reserved. The codes documented in this report are preliminary and upon truck driver helper review may be revised to meet current compliance requirements. Faraz Cortez DO 07/23/2024 12:55:10 PM This report has been signed electronically. Number of Addenda: 0 Note Initiated On: 07/23/2024 12:30 PM 07/23/24 1255 Date Faraz Bray Signature: Date (if indicated) (more content not included)... Normal [facility] MR/POSTOP.Summer 07-23-2024 MR/POSTOP.[facility] Medical Records Department [address] [place] [address] Anesthesia Postop Eval I 07/23/24 1259 MR#: [id number] Acct: [id number] Name: CLARISA MENDES Rep #: [id number] : 1970 54 From: Ajay Ruiz CRNA PCP: Dr. Tang Olguin, DO Status:REG SDC Y Race: C Location: [place] [address] Anesthesia: Postop Eval I Current Vital Signs Temperature: 97.4 F Pulse Rate: 67 Blood Pressure: 103/64 Respiratory Rate: 16 Pulse Ox: 97 Assessment Airway patent: Yes Spontaneous unlabored respirations: Yes nausea: No Vomiting: No Anesthesia Complication: No Fluid Hydration Crystalloid volume administer (ml): 800 Total IV fluid infused: 800 Progress Note Anesthesia document: Postop Eval 1 completed: Yes 07/23/24 1300 Date Ajay Ruiz CRYSTAL SYRUP MAKER Cosigner Signature: Date CC: Signed Normal [facility] MR/[id number] 07-23-2024 /[facility] Medical Records Department [address] [place] [address] Anesthesia Postop Eval II 07/23/24 1306 MR#: [id number] Acct: [id number] Name: CLARISA MENDES Rep #: [id number] : 1970 54 From: Ej Awad MD PCP: Dr. Tang Olguin, DO Status:REG SDC Y Race: C Location: [place] [address] Anesthesia Postop Eval I Sum Postop Eval Completion status Anesthesia document: Postop Eval 1 completed: Yes Anesthesia Postop Eval I Summary Anesthesia Postop Eval I Summary: Anesthesia Postop Eval I: Assessment Summary Airway patent Yes 07/23/24 12:59 CRYSTAL SYRUP [email or web address].TNES Spontaneous unlabored Yes 07/23/24 12:59 CRYSTAL SYRUP MAKER.TNES respirations Mental status nausea No 07/23/24 12:59 CRYSTAL SYRUP MAKER.TNES Vomiting No 07/23/24 12:59 CRYSTAL SYRUP MAKER.TNES Anesthesia Postop Eval I: Fluid Summary Crystalloid volume administer 800 07/23/24 12:59 CRYSTAL SYRUP MAKER.TNES (ml) Colloids volume administered ( ml) Blood Product volume administered (ml) Total IV fluid infused 800 07/23/24 12:59 CRYSTAL SYRUP MAKER.TNES Anesthesia Postop Eval I: Summary Notes Anesthesia Complication No 07/23/24 12:59 CRYSTAL SYRUP MAKER.TNES Anesthesia Complication Comment: Post-operative progress note Anesthesia: Postop Eval II Evaluation Mental status: Awake Pain Level: 0 nausea: No Vomiting: No 07/23/24 1306 Date Ej Delmi Peacock Signature: Date CC: Signed Normal [facility] Office Visit Reporton 2024 Office Visit Report [facility] [address] [place] [address] OFFICE VISIT Date of Service: MR#: [id number] Acct: [id number] Patient: CLARISA MENDES Rep #: [id number] : 1970 Provider: Faraz Cortez DO Age/Sex: 54/F [place] [facility] [place]: Signed Intake Vital Signs 07/23/24 10:53 Height 5 ft 2 in Intake Visit Reasons: capsule placement Chief Complaint: Video capsule placement Allergies hydromorphone HCl (From Dilaudid) Allergy (Verified 07/23/24 10:51) Chest tightness prednisone Allergy (Verified 07/23/24 10:51) Itching warfarin sodium (From Coumadin) Allergy (Verified 07/23/24 10:51) Chest tightness milnacipran HCl (From Savella) Adverse Reaction (Verified 07/23/24 10:51) Other pregabalin (From Lyrica) Adverse Reaction (Verified 07/23/24 10:51) Rash rivaroxaban (From Xarelto) Adverse Reaction (Verified 07/23/24 10:51) Nausea Office Procedures Procedure Administration Route: PO Administration Location: [facility] Dispensed Units: 1 Capsule Lot Number: [id number] Expiration Date: 05/09/25 Capsule ID Number: [id number] Reason for Pill Capsule Endoscopy: Barretts Comments: Pt tolerated well Pill Cam Billing-In Office: [id number] GI TRACT CAPSULE ENDOSCOPY 07/23/24 1521 Date Faraz Bray Signature: Date (if applicable) CC: Normal [facility] Surgery Specimen Level Sandra 07-23-2024 Surgery Specimen Level IV Patient Age/Sex Location Account Attending Physician CLARISA MENDES 54/F EN [id number] Faraz Cortez DO Specimen: [id number] Received: 07/23/24 Status: SEDRICK Cohen Num: [id number] Spec Type: EGD BIOPSY Subm Dr: Faraz Cortez, DO HEADER OPERATION: EGD, capsule placement PRE-OP DIAGNOSIS: Gastritis, iron deficiency anemia, exocrine pancreatic insufficiency, dilated CBD, Way's TISSUE SUBMITTED: A- Gastric-jejunal anastomosis biopsy MICROSCOPIC DIAGNOSIS A. Stomach, gastric-jejunal anastomosis, biopsy: * Oxyntic gastric mucosa with features of reactive gastropathy. * Negative for Helicobacter-like organisms (H E stain). MICROSCOPIC DESCRIPTION Slides are reviewed. GROSS DESCRIPTION A. Received in formalin in a container labeled with the patient's name, date of , and gastric-jejunal anastomosis is a 0.5 x 0.3 x 0.2 cm fragment of krause-pink mucosal tissue. Submitted in toto in A1. [facility] 07-23-2024 [facility]:[address] Patient Age/Sex Location Account Attending Physician CLARISA MENDES 54/F EN [id number] Farazcandy Cortez DO Signed (signature on file) Dr. Smiley Newell MD 07/29/24 1558 Normal [facility] Comment on above: Performed By: #### P SUIV ####[facility] [address] [place], [place], [id number] /Tristan 07-21-2024 /THAO [facility] Medical Records Department [address] [place] [address] PAT - Anesthesia 07/21/24 1502 MR#: [id number] Acct: [id number] Name: CLARISA MENDES Rep #: [id number] : 1970 54 From: Isma Ford MD PCP: Dr. Tang Olguin, DO Status:PRE [facility] [place] [facility] Y Race: C Location: EN Pre-Assessment Diagnosis/Proposed Procedure Planned Operative Procedure(s): EGD, CAPSULE PACEMENT Anesthesia History Anesthesia History - incident response specialist: Anesthesia History - incident response specialist Hx Hospitalization No 07/21/24 13:15 Any Problems With Anesthesia Yes: PONV 07/21/24 13:15 Cholinesterase deficiency No 07/21/24 13:15 You/Your Family Experience No 07/21/24 13:15 fever (hyperthermia) with Relationship Recent Exposure to Contagious No 01/21/24 08:44 Disease Does patient have nerve No 07/21/24 13:15 stimulator Patient instructed to have device shut off --Does patient have Pacemaker or ICD? When Was Last Pacemaker Check QUESTION #4 FULL TEXT: You/Your Family Experience fever (hyperthermia) with Anesthesia Last Oral Intake Last Oral intake: Last Oral Intake NPO since Meds taken in AM with sips of water? Meds patient instructed to take am of surgery PONV PONV - incident response specialist: PONV - incident response specialist Female Yes 07/21/24 13:15 HX of Motion Sickness No 07/21/24 13:15 HX of N/V After Surgery Yes 07/21/24 13:15 Non-Smoker Yes 07/21/24 13:15 Duration of Surgery greater No 07/21/24 13:15 than 60 minutes Number of Risk Factors 3 07/21/24 13:15 PONV Score Moderate Risk 07/21/24 13:15 Height Weight Height Weight: Anesthesia: Height Weight Height 5 ft 2 in 06/06/24 09:46 Respiratory Assessment Respiratory Assessment - incident response specialist: Respiratory Tract Infection Hx - incident response specialist Hx Respiratory Tract Infection No 07/21/24 13:15 STOP Sleep Apnea STOP Sleep Apnea - incident response specialist: STOP Sleep Apnea - incident response specialist Hx Hypertension Yes: HISTORY OF/ RESOLVED 07/21/24 13:15 AAFTER WT LOSS Hx Sleep Apnea No 07/21/24 13:15 CPAP No 07/21/24 13:15 BIPAP No 07/21/24 13:15 Do you snore loudly (louder No 07/21/24 13:15 than talking or can be heard Do you often feel tired/ No 07/21/24 13:15 fatigued/ sleepy during daytime? Has anyone observed you stop No 07/21/24 13:15 breathing during sleep? STOP Results Negative 07/21/24 13:15 QUESTION #5 FULL TEXT : Do you snore loudly (louder than talking or can be heard through closed doors)? 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 Specify any problems Hx of Preganancy in last 3 No 07/21/24 13:15 Months Nurse Filling Out Transfusion MGMARCIAL 07/21/24 13:15 Questions: Date: 07/21/24 07/21/24 13:15 Time: 13:17 07/21/24 13:15 Patient unable to answer at this time (ie. confused, unrespo /Reproduction History /Reproductive History - incident response specialist: /Reproductive Hx- incident response specialist Hx Now No 07/21/24 13:15 Gestational Age (in weeks): EDC: Hx Hx Para Hx Section SAB No 07/21/24 13:15 [facility] Medical History (Updated 07/21/24 @ 13:27 by Lulu De Los Santos) Arthritis History of DVT (deep vein thrombosis) Easy bruising Difficulty chewing PONV (postoperative nausea and vomiting) Contusion of right lesser toe(s) without damage to nail, initial encounter URI (upper respiratory infection) Mid back pain on right side Hx of blood clots Fibromyalgia Fatty liver Restless legs Difficulty swallowing History of hiatal hernia History of IBS Gastric reflux Non-smoker Asthma History of echocardiogram History of stress test Cardiology follow-up encounter COVID-19 uterine ablation r middle trigger finger release Delivery with history of Vitamin D deficiency Trigger ring finger of right hand Trigger middle finger of right hand Temporomandibular joint disorder Seizures Right hand paresthesia Rh (more content not included)... Normal [facility] CNOVon 07-11-2024 CNOV Office Visit (PODIWS ) ----- GABRIELLECLARISA ([id number]) 1970 F NFR Date Time Provider Department 07/11/24 11:30 AM MICHAEL DEGROOT During your visit today, we recorded the following information about you: Cyndie Koehler LPN 07/11/2024 2:01 PM Signed AMB ROOMING INTAKE FLOWSHEET DATA Pain Pain Level: 7 Pain Location: Foot-Right Description: Aching, Burning, Numbness, Pulsating, Radiating, Sore, Stiffness, Tenderness, Throbbing, Tingling Duration Units: Days Frequency: Continuous Intervention/Comfort measure: Medication, Reposition Patient presents with: Right Foot - Pain, New, Swelling, Numbness 07/03/2024 patient kicked frame of bed. [facility] to [facility]. ABDON Her Matthew 07/11/2024 11:34 AM Signed An x?ray of your right foot was ordered today to evaluate the area of pain (right fourth and fifth metatarsal shafts and pinky toe region). You will be provided with a surgical shoe /boot to protect your foot and reduce pressure; if you find the shoe uncomfortable, discuss trying a boot with us. Continue taking Tylenol as needed for pain management. For the callus on your foot, use a pumice stone to gently smooth it, and consider gel inserts or memory foam to reduce friction while you walk. If your pain persists or worsens after today?s evaluation, please contact us to discuss the possibility of a pain specialist evaluation for conditions like reflex sympathetic dystrophy. Michael Degroot 07/11/2024 2:01 PM Signed Subjective Lorna is a 54-year-old female presenting for right foot pain following trauma. Right Foot Pain: - Acute onset of pain in the right foot after stubbing it against the bed last . - Pain localized to the right 4th and 5th toes, extending to the side and bottom of the foot. - Pain is severe enough to prevent wearing tennis shoes; currently wearing Crocs for comfort. - Pain is exacerbated by walking and touching the affected area. - Denies any prior foot problems before this incident. - X-ray taken at urgent care the day after the injury reportedly showed no fractures. - Taking Tylenol for pain management with minimal relief. Musculoskeletal: (+) right foot pain, (+) right ankle pain, (+) difficulty walking, (+) limited range of motion in right toe Neurological: (+) right foot tingling, (+) right toe numbness Skin: (+) right foot redness, (+) right foot swelling Objective Last menstrual period 07/11/2012. - Cardiovascular: Dorsalis pedis and posterior tibial pulses palpable in the right foot. Capillary refill time <5 seconds. Skin temperature warm. - Musculoskeletal: - Right Foot: - Pain present over the fourth and fifth metatarsal shafts. - Skin: No open sores noted on the right foot; callus present to right 5th metatarsal head. - Neurological: Protected sensation intact in the right foot. Imaging: - X-ray of the right foot: No fracture identified 1. Right foot pain (M79.671) 2. Contusion of right foot, initial encounter (S90.31XA) - Patient stubbed right fourth and fifth toes against the bed frame, now experiencing pain across the fourth and fifth metatarsal shafts. - Initial X-ray at urgent care showed no fractures. - On examination, pain present to the right fourth and fifth metatarsal shafts; - Ordered a repeat X-ray of the right foot to assure no fracture - Discussed possibility of bone bruising that may take time to resolve. - Advised use of a boot to reduce pain and provide support. - If X-ray shows no abnormalities and pain persists, consider referral to a pain specialist to rule out Reflex Sympathetic Dystrophy (RSD). - Patient advised to continue wearing Crocs for comfort. - Educated on the use of a pumice stone for callus management. callus reduced with dremmel today Attestation Recording using [employer] software for draft documentation of the visit was discussed with the patient/authorized quality assurance representative; all questions welcomed and answered. Patient/authorized quality assurance representative agreed to proceed Michael Degroot DPM Referring Provider: SELF [[id number]] Allergies As of Date: 07/11/2024 Noted Allergy Reaction MICONAZOLE 01/13/2004 9 - Itching MILNACIPRAN 07/19/2011 1 - Mental Status Change 14 - Other: See Comments Comments: Duson weird. RIVAROXABAN 12/02/2014 14 - Other: See [...] PREDNISONE 12/27/2021 9 - Itching Date Reviewed: 07/11 (more content not included)... Normal [facility] XR FOOT 3V AP/LAT/OBL RTon 0 5- XR FOOT 3V AP/LAT/OBL RT * * *Final Repo rt* * * DATE OF EXAM: Jul 11 2024 12:08PM [id number] - XR FOOT 3V AP/LAT/OBL RT / PROCEDURE REASON: multiple diagnoses * * * * Physician Interpretation * * * * EXAM(s): XR FOOT 3V AP/LAT/OBL RT..... HISTORY: 54 years old Clinical information: Right foot pain Contusion of right foot, initial encounter PT STATES RIGHT LITTLE TOE INJURY LAST WEEK TECHNIQUE: Images: XR FOOT 3V AP/LAT/OBL RT Comparison: None. RESULT: Findings: No fractures or dislocations identified in the right fourth or fifth toes at the site of this patient's injury. Osteoarthritic changes are seen in the interphalangeal joints of all 5 toes. Mild degenerative changes also noted in the right talonavicular joint. Soft tissues unremarkable. IMPRESSION: Degenerative changes as noted above. No evidence of fracture Head Cook: PSCB Transcribe Date/Time: Jul 11 2024 12:24P Dictated by : DARLEEN QUIÑONEZ MD This examination was interpreted and the report reviewed and electronically signed by: DARLEEN QUIÑONEZ MD on Jul 11 2024 12:27PM EST [id number] Normal [facility] XR Foot - right AP and Later al and obliqueon 07-11-2024 IMPRESSION: Degenerative changes as noted above. No evidence of fracture Head Cook: LEON Transcribe Date/Time: Jul 11 2024 12:24P Dictated by : DARLEEN QUIÑONEZ MD This examination was interpreted and the report reviewed and electronically signed by: DARLEEN QUIÑONEZ MD on Jul 11 2024 12:27PM [facility] DIVISION OF RADIOLOGY * * *Final Report* * * DATE OF EXAM: Jul 11 2024 12:08PM [id number] - XR FOOT 3V AP/LAT/OBL RT / PROCEDURE REASON: multiple diagnoses * * * * Physician Interpretation * * * * EXAM(s): XR FOOT 3V AP/LAT/OBL RT..... HISTORY: 54 years old Clinical information: Right foot pain Contusion of right foot, initial encounter PT STATES RIGHT LITTLE TOE INJURY LAST WEEK TECHNIQUE: Images: XR FOOT 3V AP/LAT/OBL RT Comparison: None. RESULT: Findings: No fractures or dislocations identified in the right fourth or fifth toes at the site of this patient's injury. Osteoarthritic changes are seen in the interphalangeal joints of all 5 toes. Mild degenerative changes also noted in the right talonavicular joint. Soft tissues unremarkable. DIVISION OF RADIOLOGY Provider, [facility] Holli Sparrow [facility] - 07/11/2024 * * *Final Report* * * DATE OF EXAM: Jul 11 2024 12:08PM [id number] - XR FOOT 3V AP/LAT/OBL RT / PROCEDURE REASON: multiple diagnoses * * * * Physician Interpretation * * * * EXAM(s): XR FOOT 3V AP/LAT/OBL RT..... HISTORY: 54 years old Clinical information: Right foot pain Contusion of right foot, initial encounter PT STATES RIGHT LITTLE TOE INJURY LAST WEEK TECHNIQUE: Images: XR FOOT 3V AP/LAT/OBL RT Comparison: None. RESULT: Findings: No fractures or dislocations identified in the right fourth or fifth toes at the site of this patient's injury. Osteoarthritic changes are seen in the interphalangeal joints of all 5 toes. Mild degenerative changes also noted in the right talonavicular joint. Soft tissues unremarkable. IMPRESSION IMPRESSION: Degenerative changes as noted above. No evidence of fracture Head Cook: LEON Transcribe Date/Time: Jul 11 2024 12:24P Dictated by : DARLEEN QUIÑONEZ MD This examination was interpreted and the report reviewed and electronically signed by: DARLEEN QUIÑONEZ MD on Jul 11 2024 12:27PM EST [facility] Radiology Study observation (narrative) [facility] XR Foot - right AP and Later al and obliqueOrdered By: Ccf Provider on 07-11-2024 [facility] Gastroenterology Visit Repor ton 07-04-2024 Gastroenterology Visit Report [facility] [address] [place] [address] OFFICE VISIT Date of Service: 07/04/24 MR#: [id number] Acct: [id number] Name: CLARISA MENDES Rep #: [id number] : 1970 Provider: Faraz Cortez DO Age/Sex: 54/F Location: [facility] [place] [facility] Status: Signed Intake Vital Signs 06/06/24 09:46 Height 5 ft 2 in Intake Visit Reasons: fOLLOW UP Allergies hydromorphone HCl (From Dilaudid) Allergy (Verified 07/02/24 16:58) Chest tightness prednisone Allergy (Verified 07/02/24 16:58) Itching warfarin sodium (From Coumadin) Allergy (Verified 07/02/24 16:58) Chest tightness milnacipran HCl (From Savella) Adverse Reaction (Verified 07/02/24 16:58) Other pregabalin (From Lyrica) Adverse Reaction (Verified 07/02/24 16:58) Rash rivaroxaban (From Xarelto) Adverse Reaction (Verified 07/02/24 16:58) Nausea Medications ???Medication ???Instructions ???Recorded ???Confirmed ???Type cetirizine 10 mg capsule (Zyrtec) 10 mg PO QHS allergies 01/22/17 0 07/04/24 History albuterol sulfate 90 mcg/actuation 2 puff inhalation Q4H PRN PRN 07/04/24 History aerosol inhaler Wheezing ondansetron 4 mg disintegrating 4 mg PO Q8H PRN PRN Nausea #10 tab s 12/11/22 07/04/24 Rx tablet escitalopram oxalate 5 mg tablet 5 mg PO DAILY 04/20/23 07/04/24 Hi story pantoprazole 40 mg tablet,delayed 40 mg PO DAILY 04/20/23 07/04/24 History release valacyclovir 500 mg tablet 500 mg PO DAILY 04/20/23 07/04/24 History ropinirole 0.25 mg tablet 0.25 mg PO DAILY 10/22/23 07/04/24 History multivitamin with minerals-folic tab PO 11/22/23 07/04/24 History acid 200 mcg chewable tablet (Women's Multivitamin Gummies) clobetasol 0.05 % topical ointment 1 applic topical .COMPLEX #60 gr ams 01/29/24 07/04/24 Rx estradiol 0.01% (0.1 mg/gram) 1 appful vaginal 2XW #42.5 grams 1 03/30/23 07/04/24 Rx vaginal cream Nurse's Note: Pt was scheduled for EGD w/ Pill Cam Placement on 07.23.24 at the end of their appt today. Reviewed prep instructions and which medications to hold prior to procedure with pt in office. A paper copy of EGD and Capsule prep instructions were given to pt. Pt denies any questions or concerns at this time. [facility] Medical History (Updated 07/02/24 @ 17:09 by Herb SÁNCHEZ, PA) Contusion of right lesser toe(s) without damage to nail, initial encounter URI (upper respiratory infection) Mid back pain on right side COVID-19 Hx of blood clots Fibromyalgia Fatty liver Restless legs Difficulty swallowing History of hiatal hernia History of IBS Gastric reflux Non-smoker Asthma History of echocardiogram History of stress test Cardiology follow-up encounter uterine ablation r middle trigger finger release Delivery with history of Vitamin D deficiency Trigger ring finger of right hand Trigger middle finger of right hand Temporomandibular joint disorder Seizures Right hand paresthesia Rheumatoid arthritis PTSD (post-traumatic stress disorder) Patellofemoral disorder Impaired fasting glucose HTN (hypertension) Hypercholesteremia HSV infection Hayfever GERD (gastroesophageal reflux disease) Fibromyalgia muscle pain Endometriosis DVT (deep venous thrombosis) Diaphragmatic hernia without mention of obstruction or gangrene Depressive disorder Colon polyps Carpal tunnel syndrome Anxiety Calcaneal spur Aortic aneurysm Surgical History History of weight loss surgery Hx of tonsillectomy History of nasal surgery S/P foot surgery, left History of bilateral breast reduction surgery History of tubal ligation History of bilateral salpingectomy History of laparoscopic-assisted vaginal hysterectomy History of laparoscopic cholecystectomy History of esophagogastroduodenoscop y (EGD) Hx of colonoscopy History of carpal tunnel release Family History Mother Hypertension Hyperlipidemia alcohol/drug addiction Allergies Father alcohol/drug addiction Sister Thyroid disorder Fibromyalgia Blindness Grandmother Emphysema lung Heart disease Grandfather Emphysema lung Brother alcohol/drug addiction Social History 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 *BGI established 8.10.22 with postprandial abd pain, nausea, early satiety and bloating for several years, but is feeling worse. Fecal pilar (more content not included)... Normal [facility] Foot min 3 Viewson 5 Foot min 3 Views [facility] Imaging Services [address] [place] [address] Foot min 3 Views MR#: [id number] Acct: [id number] Name: CLARISA MENDES Rep #: [id number] : 1970 F 54 From: Ayad Rodriguez PCP: Dr. Tang Olguin, DO Status: REG CLI Study: Foot min 3 Views Date of Exam: 07/02/24 Exam# [id number] Ordering Dr: Herb Dominique PA EXAM: Right foot radiographs CLINICAL HISTORY: Pain COMPARISON: None TECHNIQUE: Three views of the right foot FINDINGS: See impression RAD/Foot min 3 Views IMPRESSION: Negative for acute displaced fracture or malalignment. Mild 1st MTP joint osteoarthritis. Moderate calcaneal enthesopathy. Thickening at the insertion of the Achilles tendon likely related to chronic tendinopathy. Reading Location: [facility] CC: Dr. Tang Olguin, DO; PRINCESS Claudio Head Cook: Signed Normal [facility] Urgent Care Visit Reporton 0 07-02-2024 Urgent Care Visit Report [facility] [address], [address] [place] [address] OFFICE VISIT Date of Service: 07/02/24 MR#: [id number] Acct: [id number] Name: CLARISA MENDES Rep #: [id number] : 1970 Provider: PRINCESS Claudio Age/Sex: 54/F Location: [facility] Status: Signed Intake Vital Signs 06/06/24 09:46 07/02/24 16:58 Height 5 ft 2 in BP 110/60 Blood Pressure Location Lt brachial Position Sitting Respiration 14 Pulse 68 Pulse Source NIBP Temp 98.2 F Temp Source Oral Pulse Oximetry (%) 98 Oxygen Delivery Method room air Intake Visit Reasons: R FOOT/PINKY AND RING TOE INJURY Chief Complaint: right 4th/5th toes 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: No Allergies hydromorphone HCl (From Dilaudid) Allergy (Verified 07/02/24 16:58) Chest tightness prednisone Allergy (Verified 07/02/24 16:58) Itching warfarin sodium (From Coumadin) Allergy (Verified 07/02/24 16:58) Chest tightness milnacipran HCl (From Savella) Adverse Reaction (Verified 07/02/24 16:58) Other pregabalin (From Lyrica) Adverse Reaction (Verified 07/02/24 16:58) Rash rivaroxaban (From Xarelto) Adverse Reaction (Verified 07/02/24 16:58) Nausea Medications ???Medication ???Instructions ???Recorded ???Confirmed ???Type cetirizine 10 mg capsule (Zyrtec) 10 mg PO QHS allergies 01/22/17 0 06/06/24 History albuterol sulfate 90 mcg/actuation 2 puff inhalation Q4H PRN PRN 06/06/24 History aerosol inhaler Wheezing ondansetron 4 mg disintegrating 4 mg PO Q8H PRN PRN Nausea #10 tab s 12/11/22 06/06/24 Rx tablet escitalopram oxalate 5 mg tablet 5 mg PO DAILY 04/20/23 06/06/24 Hi story pantoprazole 40 mg tablet,delayed 40 mg PO DAILY 04/20/23 06/06/24 History release valacyclovir 500 mg tablet 500 mg PO DAILY 04/20/23 06/06/24 History ropinirole 0.25 mg tablet 0.25 mg PO DAILY 10/22/23 06/06/24 History multivitamin with minerals-folic tab PO 11/22/23 06/06/24 History acid 200 mcg chewable tablet (Women's Multivitamin Gummies) clobetasol 0.05 % topical ointment 1 applic topical .COMPLEX #60 gr ams 01/29/24 06/06/24 Rx estradiol 0.01% (0.1 mg/gram) 1 appful vaginal 2XW #42.5 grams 1 03/30/23 06/06/24 Rx vaginal cream Is last menstrual period known: No Post menopausal: Yes Patient : No Have you fallen in the past year?: Yes Nurse's Note: right 4th/5th toes vs. bed leg this morning. c/o pain and bruising to same, pain into right foot. hx of surgery to right foot approx 2 years ago. painful ambulation without assistance to exam room. denies additional injuries. [facility] Medical History (Updated 07/02/24 @ 17:09 by Herb SÁNCHEZ, PA) Contusion of right lesser toe(s) without damage to nail, initial encounter URI (upper respiratory infection) Mid back pain on right side COVID-19 Hx of blood clots Fibromyalgia Fatty liver Restless legs Difficulty swallowing History of hiatal hernia History of IBS Gastric reflux Non-smoker Asthma History of echocardiogram History of stress test Cardiology follow-up encounter uterine ablation r middle trigger finger release Delivery with history of Vitamin D deficiency Trigger ring finger of right hand Trigger middle finger of right hand Temporomandibular joint disorder Seizures Right hand paresthesia Rheumatoid arthritis PTSD (post-traumatic stress disorder) Patellofemoral disorder Impaired fasting glucose HTN (hypertension) Hypercholesteremia HSV infection Hayfever GERD (gastroesophageal reflux disease) Fibromyalgia muscle pain Endometriosis DVT (deep venous thrombosis) Diaphragmatic hernia without mention of obstruction or gangrene Depressive disorder Colon polyps Carpal tunnel syndrome Anxiety Calcaneal spur Aortic aneurysm Surgical History History of weight loss surgery Hx of tonsillectomy History of nasal surgery S/P foot surgery, left History of bilateral breast reduction surgery History of tubal ligation History of bilateral salpingectomy History of laparoscopic-assisted vaginal hysterectomy History of laparoscopic cholecystectomy History of esophagogastroduodenoscop y (EGD) Hx of colonoscopy History of carpal tunnel release Family History Mother Hypertension Hyperlipidemia alcohol/drug addiction Allergies Father alcohol/drug addiction Sister Thyroid disorder Fibromyalgia Blindness Grandmother Emphysema lung Heart disease Grandfather Emphysema lung Brother alcohol/drug addiction Social History current occupation: [employer] Smoking Status: Never smoker alcohol intake: former what type of physical act (more content not included)... Normal [facility] 25-hydroxyvitamin D3 [Mass/Vol] 32.3 ng/mL Normal 31.0-80.0 [facility] Comment on above: Order Comment: Speci men Type: BLOOD SPECIMENOrdering Facility: [facility] Address: [address] [place] [address] Result Comment: Clas sification of 25 [place] Vitamin D status: Deficiency/Insufficiency: < or = 30 ng/ml. Sufficiency/Optimal Levels: 31-80 ng/mL Toxicity: > 100 ng/mL. Test performed by chemiluminescent immunoassay. Performed By: #### 1 989-3, 86335-0 ####[facility] LABCLIA [id number] [place] [address] [place] ALKALINE PHOSPHATASE ISOENZY MES (P)on 06-26-2024 ALK PHOS BONE % 34.9 % Normal 10.7-68.3 [facility] Comment on above: Order Comment: Speci men Type: BLOOD SPECIMENOrdering Facility: [facility] Address: [address] [place] [address] Performed By: #### A LKISOP ####[facility] LABCLIA [id number] [address] [address] [place] ALK PHOS LIVER % 57.1 % Normal 26.0-86.2 [facility] Comment on above: Order Comment: Speci men Type: BLOOD SPECIMENOrdering Facility: [facility] Address: [address] [place] [address] Performed By: #### A LKISOP ####[facility] LABCLIA [id number] [place] [address] [place] BONE FRACTION 48.9 U/L Normal 12.9-52.6 [facility] Comment on above: Order Comment: Speci men Type: BLOOD SPECIMENOrdering Facility: [facility] Address: [address] [place] [address] Performed By: #### A LKISOP ####[facility] LABCLIA [id number] [address] [place] INTESTINE FRACTION 11.2 U/L Normal 0.0-16.3 [facility] Comment on above: Order Comment: Speci men Type: BLOOD SPECIMENOrdering Facility: [facility] Address: [address] [place] [address] Performed By: #### A LKISOP ####[facility] LABCLIA [id number] [place] [address] [place] LIVER FRACTION 79.9 U/L High 16.0-69.3 [facility] Comment on above: Order Comment: Speci men Type: BLOOD SPECIMENOrdering Facility: [facility] Address: [address] [place] [address] Performed By: #### A LKISOP ####[facility] LABCLIA [id number] [place] [id number] [place] Neutrophils/100 WBC (Bld) 8.0 % Normal 0.0-24.2 [facility] Comment on above: Order Comment: Speci men Type: BLOOD SPECIMENOrdering Facility: [facility] Address: [address] [place] [address] Performed By: #### A LKISOP ####[facility] LABIA [id number] [place] [address] [place] ALP SerPl-cCncon 06-26-2024 ALP [Catalytic activity/Vol] 140 U/L High 34-123 [facility] Comment on above: Order Comment: Speci men Type: BLOOD SPECIMENOrdering Facility: [facility] Address: [address] [place] [address] Performed By: #### 6 768-6, 2132-9, 12233-4, 57978-0 ####[facility] LABIA [id number] [place] [address] [place] B. burgdorferi IgG and IgM p ondina (S)on 06-26-2024 B. burgdorferi IgG+IgM Qn (S) Negative Normal Negative [facility] Comment on above: Order Comment: Speci [facility] Type: BLOOD SPECIMENOrdering Facility: [facility] Address: [address] [place] [address] Result Comment: Rece nt infection with B. burgdorferi sensu lato cannot be excluded if the specimen collected within four weeks after the onset of signs and symptoms or within six weeks after a known tick exposure. Clinical and epidemiological correlation is required. Performed By: #### 1 989-3, 58108-4 ####[facility] LABIA [id number] [place] [address] [place] CBC W Auto Differential pane l (Bld)on 06-26-2024 Basophils (Bld) [#/Vol] 0.05 10*3/uL Normal <0.11 [facility] Comment on above: Order Comment: Speci men Type: BLOOD SPECIMENOrdering Facility: [facility] Address: [address] [place] [address] Performed By: #### 4 537-7, 36214-7 ####[facility] LABCLIA [id number] [address] [place] [address] [place] Basophils/100 WBC (Bld) 0.8 % Normal [facility] Comment on above: Order Comment: Speci men Type: BLOOD SPECIMENOrdering Facility: [facility] Address: [address] [place] [address] Performed By: #### 4 537-7, 06036-2 ####[facility] LABCLIA [id number] [address], [place] [address] [place] Differential cell count method Nom (Bld) Auto Normal [facility] Comment on above: Order Comment: Speci men Type: BLOOD SPECIMENOrdering Facility: [facility] Address: [address] [place] [address] Performed By: #### 4 537-7, 96019-0 ####[facility] LABCLIA [id number] [place] [address] [place] Eosinophils (Bld) [#/Vol] 0.10 10*3/uL Normal <0.46 [facility] Comment on above: Order Comment: Speci men Type: BLOOD SPECIMENOrdering Facility: [facility] Address: [address] [place] [address] Performed By: #### 4 537-7, 12247-8 ####[facility] LABCLIA [id number] [address] [place] Eosinophils/100 WBC (Bld) 1.6 % Normal [facility] Comment on above: Order Comment: Speci men Type: BLOOD SPECIMENOrdering Facility: [facility] Address: [address] [place] [address] Performed By: #### 4 537-7, 60989-5 ####[facility] LABCLIA [id number] [place] [id number] [place] Erythrocyte distribution width (RBC) [Ratio] 12.5 % Normal 11.5-15.0 [facility] Comment on above: Order Comment: Speci men Type: BLOOD SPECIMENOrdering Facility: [facility] Address: [address] [place] [address] Performed By: #### 4 537-7, 61792-2 ####[facility] LABCLIA [id number] [place] [address] [place] Hematocrit (Bld) [Volume fraction] 42.3 % Normal 36.0-46.0 [facility] Comment on above: Order Comment: Speci men Type: BLOOD SPECIMENOrdering Facility: [facility] Address: [address] [place] [address] Performed By: #### 4 537-7, 46019-6 ####[facility] LABCLIA [id number] [place] [address] [place] Hemoglobin (Bld) [Mass/Vol] 14.1 g/dL Normal 11.5-15.5 [facility] Comment on above: Order Comment: Speci men Type: BLOOD SPECIMENOrdering Facility: [facility] Address: [address] [place] [address] Performed By: #### 4 537-7, 18547-4 ####[facility] LABCLIA [id number] [place] [address] [place] Immature granulocytes (Bld) [#/Vol] 10*3/uL Normal <0.10 [facility] Comment on above: Order Comment: Speci men Type: BLOOD SPECIMENOrdering Facility: [facility] Address: [address] [place] [address] Performed By: #### 4 537-7, 69903-9 ####[facility] LABCLIA [id number] [place] [address] [place] Immature granulocytes/100 WBC (Bld) 0.3 % Normal [facility] Comment on above: Order Comment: Speci men Type: BLOOD SPECIMENOrdering Facility: [facility] Address: [address] [place] [address] Performed By: #### 4 537-7, 45443-6 ####[facility] LABCLIA [id number] [place] [address] [place] Lymphocytes (Bld) [#/Vol] 2.09 10*3/uL Normal 1.00-4.00 [facility] Comment on above: Order Comment: Speci men Type: BLOOD SPECIMENOrdering Facility: [facility] Address: [address] [place] [address] Performed By: #### 4 537-7, 74317-0 ####[facility] LABIA [id number] [place] [address] [place] Lymphocytes/100 WBC (Bld) 34.4 % Normal [facility] Comment on above: Order Comment: Speci men Type: BLOOD SPECIMENOrdering Facility: [facility] Address: [address] [place] [address] Performed By: #### 4 537-7, 78838-0 ####[facility] LABIA [id number] [place] [address] [place] MCH (RBC) [Entitic mass] 30.9 pg Normal 26.0-34.0 [facility] Comment on above: Order Comment: Speci men Type: BLOOD SPECIMENOrdering Facility: [facility] Address: [address] [place] [address] Performed By: #### 4 537-7, 62511-2 ####[facility] LABIA [id number] [place] [address] [place] MCHC (RBC) [Mass/Vol] 33.3 g/dL Normal 30.5-36.0 [facility] Comment on above: Order Comment: Speci men Type: BLOOD SPECIMENOrdering Facility: [facility] Address: [address] [place] [address] Performed By: #### 4 537-7, 67927-3 ####[facility] LABCLIA [id number] [address] [address] [place] MCV (RBC) [Entitic vol] 92.8 fL Normal 80.0-100.0 [facility] Comment on above: Order Comment: Speci men Type: BLOOD SPECIMENOrdering Facility: [facility] Address: [address] [place] [address] Performed By: #### 4 537-7, 86307-0 ####[facility] LABCLIA [id number] [place] [id number] [place] Monocytes (Bld) [#/Vol] 0.35 10*3/uL Normal <0.87 [facility] Comment on above: Order Comment: Speci men Type: BLOOD SPECIMENOrdering Facility: [facility] Address: [address] [place] [address] Performed By: #### 4 537-7, 38865-3 ####[facility] LABIA [id number] [place] [address] [place] Monocytes/100 WBC (Bld) 5.8 % Normal [facility] Comment on above: Order Comment: Speci men Type: BLOOD SPECIMENOrdering Facility: [facility] Address: [address] [place] [address] Performed By: #### 4 537-7, 73675-2 ####[facility] LABCLIA [id number] [place] [address] [place] Neutrophils (Bld) [#/Vol] 3.47 10*3/uL Normal 1.45-7.50 [facility] Comment on above: Order Comment: Speci men Type: BLOOD SPECIMENOrdering Facility: [facility] Address: [address] [place] [address] Performed By: #### 4 537-7, 15296-4 ####[facility] LABCLIA [id number] [place] [address] [place] Neutrophils/100 WBC (Bld) 57.1 % Normal [facility] Comment on above: Order Comment: Speci men Type: BLOOD SPECIMENOrdering Facility: [facility] Address: [address] [place] [address] Performed By: #### 4 537-7, 61193-4 ####[facility] LABCLIA [id number] [place] [address] [place] Nucleated RBC (Bld) [#/Vol] 10*3/uL Normal <0.01 [facility] Comment on above: Order Comment: Speci men Type: BLOOD SPECIMENOrdering Facility: [facility] Address: [address] [place] [address] Performed By: #### 4 537-7, 60557-7 ####[facility] LABCLIA [id number] [place] [address] [place] Nucleated RBC/100 WBC (Bld) [Ratio] 0.0 /100 WBC Normal [facility] Comment on above: Order Comment: Speci men Type: BLOOD SPECIMENOrdering Facility: [facility] Address: [address] [place] [address] Performed By: #### 4 537-7, 50535-2 ####[facility] LABCLIA [id number] [place] [address] [place] Platelet mean volume (Bld) [Entitic vol] 10.6 fL Normal 9.0-12.7 [facility] Comment on above: Order Comment: Speci men Type: BLOOD SPECIMENOrdering Facility: [facility] Address: [address] [place] [address] Performed By: #### 4 537-7, 49782-1 ####[facility] LABCLIA [id number] [place] [id number] [place] Platelets (Bld) [#/Vol] 209 10*3/uL Normal 150-400 [facility] Comment on above: Order Comment: Speci men Type: BLOOD SPECIMENOrdering Facility: [facility] Address: [address] [place] [address] Performed By: #### 4 537-7, 73674-1 ####[facility] LABCLIA [id number] [place] [id number] [place] RBC (Bld) [#/Vol] 4.56 10*6/uL Normal 3.90-5.20 [facility] Comment on above: Order Comment: Speci men Type: BLOOD SPECIMENOrdering Facility: [facility] Address: [address] [place] [address] Performed By: #### 4 537-7, 54260-9 ####[facility] LABCLIA [id number] [place] [address] [place] WBC (Bld) [#/Vol] 6.08 10*3/uL Normal 3.70-11.00 [facility] Comment on above: Order Comment: Speci men Type: BLOOD SPECIMENOrdering Facility: [facility] Address: [address] [place] [address] Performed By: #### 4 537-7, 62552-4 ####[facility] LABCLIA [id number] [place] [address] [place] CK SerPl-cCncon 06-26-2024 CK [Catalytic activity/Vol] 47 U/L Normal 42-196 [facility] Comment on above: Order Comment: Speci men Type: BLOOD SPECIMENOrdering Facility: [facility] Address: [address] [place] [address] Performed By: #### 2 157-6, 20198-9, 11254-9, 1987- ####[facility] LABCLIA [id number] [place] [id number] [place] CRP SerPl-mCncon 06-26-2024 CRP [Mass/Vol] 0.4 mg/dL Normal <0.9 [facility] Comment on above: Order Comment: Speci men Type: BLOOD SPECIMENOrdering Facility: [facility] Address: [address] [place] [address] Performed By: #### 2 157-6, 21545-5, 84123-1, 1987- ####[facility] LABCLIA [id number] [address] [address] [place] Comprehensive metabolic 2000 panelon 06-26-2024 Albumin [Mass/Vol] 4.0 g/dL Normal 3.9-4.9 [facility] Comment on above: Order Comment: Speci men Type: BLOOD SPECIMENOrdering Facility: [facility] Address: [address] [place] [address] Performed By: #### 6 768-6, 2131-9, 03701-3, 96845-5 ####[facility] LABCLIA [id number] [place] [address] [place] ALT [Catalytic activity/Vol] 37 U/L Normal 7-38 [facility] Comment on above: Order Comment: Speci men Type: BLOOD SPECIMENOrdering Facility: [facility] Address: [address] [place] [address] Performed By: #### 6 768-6, 2131-9, 74593-5, 61651-5 ####[facility]CLIA [id number] [facility] [place] [id number] [place] Anion gap [Moles/Vol] 8 mmol/L Normal 8-15 [facility] Comment on above: Order Comment: Speci men Type: BLOOD SPECIMENOrdering Facility: [facility] Address: [address] [place] [address] Performed By: #### 6 768-6, 2131-9, 68598-5, 62888-6 ####[facility] LABCLIA [id number] [facility] [address] [address] [place] AST [Catalytic activity/Vol] 30 U/L Normal 13-35 [facility] Comment on above: Order Comment: Speci men Type: BLOOD SPECIMENOrdering Facility: [facility] Address: [address] [place] [address] Performed By: #### 6 768-6, 2131-9, 63176-0, 02565-1 ####[facility] LABCLIA [id number] [address] [address] [place] Calcium [Mass/Vol] 9.2 mg/dL Normal 8.5-10.2 [facility] Comment on above: Order Comment: Speci men Type: BLOOD SPECIMENOrdering Facility: [facility] Address: [address] [place] [address] Performed By: #### 6 768-6, 2131-9, 93634-5, 70403-7 ####[facility] LABCLIA [id number] [place] [id number] [place] Chloride [Moles/Vol] 105 mmol/L Normal 98-107 [facility] Comment on above: Order Comment: Speci men Type: BLOOD SPECIMENOrdering Facility: [facility] Address: [address] [place] [address] Performed By: #### 6 768-6, 2131-9, 69191-9, 31905-9 ####[facility] LABCLIA [id number] [address] [address] [place] CO2 [Moles/Vol] 29 mmol/L Normal 22-30 [facility] Comment on above: Order Comment: Speci men Type: BLOOD SPECIMENOrdering Facility: [facility] Address: [address] [place] [address] Performed By: #### 6 768-6, 2131-9, 77021-4, 21967-1 ####[facility] LABCLIA [id number] [address] [place] [address] [place] Creatinine [Mass/Vol] 0.70 mg/dL Normal 0.58-0.96 [facility] Comment on above: Order Comment: Fabiola asencio Type: BLOOD SPECIMENOrdering Facility: [facility] Address: [address] [place] [id number] Performed By: #### 6 768-6, 2131-9, 00648-5, 58930-9 ####[facility] LABCLIA [id number] [place] [id number] [place] Creatinine and Glomerular filtration rate.predicted panel (S/P/Bld) 104 mL/min/1.73m??? Normal >=60 [facility] Comment on above: Order Comment: Fabiola asencio Type: BLOOD SPECIMENOrdering Facility: [facility] Address: [address] [place] [address] Result Comment: Cris mated Glomerular Filtration Rate [...] accurately reflect actual GFR. Performed By: #### 6 768-6, 2131-9, 62480-2, 79379-9 ####[facility] LABCLIA [id number] [address] [address] [place] Glucose [Mass/Vol] 82 mg/dL Normal 74-99 [facility] Comment on above: Order Comment: Fabiola asencio Type: BLOOD SPECIMENOrdering Facility: [facility] Address: [address] [place] [address] Result Comment: The [place] Diabetes Association (ADA) provides guidance for cutoff [...] Standards of Medical Care in Diabetes 2016, [place] Diabetes Association. Diabetes Care. 2016.39(Suppl 1). Performed By: #### 6 768-6, 2131-9, 17422-8, 88957-4 ####[facility] LABCLIA [id number] [address] [address] [place] Potassium [Moles/Vol] 4.4 mmol/L Normal 3.7-5.1 [facility] Comment on above: Order Comment: Fabiola asencio Type: BLOOD SPECIMENOrdering Facility: [facility] Address: [address] [place] [address] Performed By: #### 6 768-6, 9, 41008-0, 16046-4 ####[facility] LABIA [id number] [address] [address] [place] Protein [Mass/Vol] 6.6 g/dL Normal 6.3-8.0 [facility] Comment on above: Order Comment: Fabiola asencio Type: BLOOD SPECIMENOrdering Facility: [facility] Address: [address] [place] [address] Performed By: #### 6 768-6, 9, 15925-9, 73722-4 ####[facility] LABIA [id number] [address] [address] [place] Sodium [Moles/Vol] 142 mmol/L Normal 136-144 [facility] Comment on above: Order Comment: Fabiola asencio Type: BLOOD SPECIMENOrdering Facility: [facility] Address: [address] [place] [address] Performed By: #### 6 768-6, 9, 99497-2, 47275-8 ####[facility]CLIA [id number] [address] [address] [place] Urea nitrogen [Mass/Vol] 10 mg/dL Normal 7-21 [facility] Comment on above: Order Comment: Speci men Type: BLOOD SPECIMENOrdering Facility: [facility] Address: [address] [place] [address] Performed By: #### 6 768-6, 2132-9, 17253-6, 08661-8 ####[facility] LABIA [id number] [address] STATES [facility] Cyclic citrullinated peptide IgG Qnon 06-26-2024 CCP ANTIBODY IGG QUALITATIVE Negative Normal Negative [facility] Comment on above: Order Comment: Speci men Type: BLOOD SPECIMENOrdering Facility: [facility] Address: [address] [place] [address] Performed By: #### 3 3935-8 ####[facility] [id number] [address] [place] ESR Westergren method (Bld) [Velocity]on 06-26-2024 ESR (Bld) [Velocity] 16 mm/h Normal 0-20 [facility] Comment on above: Order Comment: Speci men Type: BLOOD SPECIMENOrdering Facility: [facility] Address: [address] [place] [address] Performed By: #### 4 537-7, 78439-9 ####[facility] [id number] [place] [address] [place] Heteroph Ab Ser Ql LAon 06-10 Heterophile Ab LA Ql (S) Negative Normal Negative [facility] Comment on above: Order Comment: Speci men Type: BLOOD SPECIMENOrdering Facility: [facility] Address: [address] [place] [address] Result Comment: Infe ctious Mononucleosis rapid test is used as an aid in diagnosis of acute infection with Laura-Portillo virus (EBV). The antibody levels may occasionally remain elevated up to several months after a primary EBV infection. Final interpretation should be done in conjunction with EBV-specific serology and clinical correlation. False positive results may occasionally be seen with other infectious agents such as Cytomegalovirus, Toxoplasma, and HIV among others as well as non-infectious conditions such as lymphoma. Clinical correlation is required. Performed By: #### 5 213-4 ####[facility]CLIA [id number] [address] [address] [place] Iron and Iron binding capaci ty panelon 06-26-2024 Iron [Mass/Vol] 68 ug/dL Normal 41-186 [facility] Comment on above: Order Comment: Speci men Type: BLOOD SPECIMENOrdering Facility: [facility] Address: [address] [place] [address] Performed By: #### 6 768-6, 2131-9, 15791-5, 75075-7 ####[facility] [id number] [address] [address] [place] Iron binding capacity [Mass/Vol] 356 ug/dL Normal 232-386 [facility] Comment on above: Order Comment: Speci men Type: BLOOD SPECIMENOrdering Facility: [facility] Address: [address] [place] [address] Performed By: #### 6 768-6, 9, 13650-9, 35286-2 ####[facility] LABIA [id number] [address] [address] [place] Iron/TIBC [Molar ratio] 19.1 % Normal 15.0-57.0 [facility] Comment on above: Order Comment: Speci men Type: BLOOD SPECIMENOrdering Facility: [facility] Address: [address] [place], [place] [address] Performed By: #### 6 768-6, 2131-9, 88195-6, 12268-6 ####[facility] LABIA [id number] [address] [address] [place] Magnesium SerPl-mCncon 06-26 Magnesium [Mass/Vol] 2.0 mg/dL Normal 1.7-2.3 [facility] Comment on above: Order Comment: Speci men Type: BLOOD SPECIMENOrdering Facility: [facility] Address: [address] [place] [address] Performed By: #### 2 157-6, 80480-1, , 1987-07 ####[facility]CLIA [id number] [address] [address] [place] bilirubin Pnl SerPl -mCncon 06-26-2024 Bilirubin [Mass/Vol] 0.4 mg/dL Normal 0.2-1.3 [facility] Comment on above: Order Comment: Speci men Type: BLOOD SPECIMENOrdering Facility: [facility] Address: [address] [place] [address] Performed By: #### 2 157-6, 26699-2, , 1987-07 ####[facility] LABCLIA [id number] [place] [address] [place] Performed By: #### 6 768-6, 2132-9, 31296-0, 79130-4 ####[facility]CLIA [id number] [address], [facility] [place] bilirubin panel [Ma ss/Vol]on 06-26-2024 Bilirubin.conjugated [Mass/Vol] 0.2 mg/dL Normal <0.3 [facility] Comment on above: Order Comment: Speci men Type: BLOOD SPECIMENOrdering Facility: [facility] Address: [address] [place] [address] Performed By: #### 2 157-6, 22308-1, , 1987-07 ####[facility] LABCLIA [id number] [place] [id number] [place] Bilirubin.indirect [Mass/Vol] 0.2 mg/dL Normal <1.4 [facility] Comment on above: Order Comment: Speci men Type: BLOOD SPECIMENOrdering Facility: [facility] Address: [address] [place] [address] Performed By: #### 2 157-6, 36275-3, 29568-7, 1987-07 ####[facility] [id number] [place] [address] [place] Nuclear Ab IA Ql (S)on 06-26 ANTOINETTE SCR QUAL Negative Normal Negative [facility] Comment on above: Order Comment: Speci men Type: BLOOD SPECIMENOrdering Facility: [facility] Address: [address] [place] [address] Result Comment: The qualitative antinuclear antibody screen test performed using the following antigens: dsDNA, Chromatin, Ribosomal P, SS-A 60, SS-A 52, SS-B, Sm, SmRNP, MAILING MANAGER A, MAILING MANAGER 68, Scl-70, Tiana-1, and Centromere B. Methodology: Multiplex flow immunoassay. Performed By: #### 4 7383-5 ####[facility] [id number] [place] [address] [place] Rheumatoid fact SerPl-aCncon 06-26-2024 Rheumatoid factor Qn [IU]/mL Normal <16 [facility] Comment on above: Order Comment: Speci men Type: BLOOD SPECIMENOrdering Facility: [facility] Address: [address] [place] [address] Performed By: #### 3 016-3, 3024-7, 305-0, 86113-8 ####[facility] [id number] [place] [id number] [place] T3Free SerPl-mCncon 06-27-19 25 Free T3 [Mass/Vol] 2.5 pg/mL Normal 2.3-4.1 [facility] Comment on above: Order Comment: Speci men Type: BLOOD SPECIMENOrdering Facility: [facility] Address: [address] [place] [address] Performed By: #### 3 016-3, 3024-7, 305-0, 95336-1 ####[facility]CLIA [id number] [address] [address] [place] T4 Free SerPl-mCncon 025 Free T4 [Mass/Vol] 0.9 ng/dL Normal 0.9-1.7 [facility] Comment on above: Order Comment: Speci men Type: BLOOD SPECIMENOrdering Facility: [facility] Address: [address] [place] [address] Performed By: #### 3 016-3, 3024-7, 305-0, 39137-8 ####[facility] [id number] [address] [place] THYROID PEROXIDASE ANTIBODYo n 06-26-2024 TPO Ab Qn [IU]/mL Normal <5.6 [facility] Comment on above: Order Comment: Speci [facility] Type: BLOOD SPECIMENOrdering Facility: [facility] Address: [address] [place] [address] Result Comment: Thyr oid Peroxidase Antibody test is used as an aid in diagnosis of autoimmune thyroid disease. Clinical correlation is required. Performed By: #### M ICRO ####[facility] [id number] [place] [address] [place] TSH SerPl-aCncon 06-26-2024 TSH Qn 2.560 m[IU]/L Normal 0.270-4.20 0 [facility] Comment on above: Order Comment: Speci [facility] Type: BLOOD SPECIMENOrdering Facility: [facility] Address: [address] [place] [address] Performed By: #### 3 016-3, 3024-7, 3051-0, 16661-3 ####[facility] LABIA [id number] [place] [id number] [place] Vit B12 SerPl-mCncon 025 Cobalamin (Vitamin B12) [Mass/Vol] 675 pg/mL Normal 232-1245 [facility] Comment on above: Order Comment: Speci men Type: BLOOD SPECIMENOrdering Facility: [facility] Address: [address] [place] [address] Performed By: #### 6 768-6, 2132-9, 87475-2, 86661-8 ####[facility]CLIA [id number] [place] [address] [place] cCP IgG SerPl-aCncon 025 Cyclic citrullinated peptide IgG Qn <15 Normal <20 [facility] Comment on above: Order Comment: Speci men Type: BLOOD SPECIMENOrdering Facility: [facility] Address: [address] [place] [address] Performed By: #### 3 3935-8 ####[facility]CLIA [id number] [address] [place] CNOVon 06-25-2024 CNOV Office Visit (FAMPWS ) ----- CLARISA MENDES ([id number]) 1970 F NFR Date Time Provider Department 06/25/24 10:40 AM TANG OLGUIN FAMPWS During your visit today, we recorded the following information about you: Pulse Respiration Blood pressure Weight 65/minute 14/minute 112/72 86.2 kg Tang Olguin, 06/25/2024 12:16 PM Signed CC: Clarisa Mendes is a 54 year old female who presents to the office for follow up HPI: At last OFFICE VISIT on 05/16/2024 Fibromyalgia, recently has been flared up over the winter months with increased joint pain and muscle aches, no obvious swelling or skin color changes or rashes, No known trigger other than has had some stressors in her life Overweight/obesity, weight now at 184 lbs, feels she is stagnant in her ability to continue to lose weight. This is frustrating to her. Has had bariatric surgery. She is interested in starting Adipex to see if this helps her + chronic fatigue + urinary frequency Currently Obesity, weight now at 190 lbs, was at 184 lbs. Didn't tolerate the Phentermine medication - caused her shortness of breath and GI upset. Has been struggling with a lot of severe fatigue and increasing joint pain and muscle pains- especially in her hands. Hands feel stiff and swollen. Also has had a lot of foggy brain symptoms Last anti EDSON panel in 2021. CRP and ESR labs in May were okay/normal. Thyroid labs have been at borderline Also noticing when she eats a carbohydrate such as a muffin, her blood glucose tends to drop- causes her to feel jittery and shaky and clammy. Doesn't always check her blood sugar at this time. Having RUQ discomfort abdomen, + nausea. No vomiting. Is going to be seeing Dr. Cortez Valet Parking Attendant next week for opinion and follow up as well. PAST MEDICAL HISTORY Diagnosis Date Abdominal pain [...] chronic gastritis EGD TRANSORAL BIOPSY SINGLE/MULTIPLE 05/04/2010 ESOPHAGOGASTRODUODENOSCOP Y TRANSORAL DIAGNOSTIC 11/23/2017 EGD ESOPHAGOGASTRODUODENOSCOP Y TRANSORAL DIAGNOSTIC 05/01/2019 EGD GASTRIC BYPASS HX 05/26/2022 INCISE FINGER TENDON SHEATH Right 03/23/2015 Right middle trigger finger release LAPAROSCOPIC TUBAL LIGATION/RING/CLIP 2012 alessandro elliott vesicouterine adhesions LAPAROSCOPY DIAGNOSTIC 2016 extensive KEVYN, severe LAPS SURG CHOLECYSTECTOMY W/CHOLANGIOGRAPHY 05/02/2006 LAPS W/VAG HYSTERECT 250 GM/ANDRMVL TUBEAND/OVARIES 2014 [facility] bilateral salpingectomy, scar tissue LIDOCAINE IV treatments-[place] Dr Duran PAST SURGICAL HISTORY OF 01/13/2006 Bilateral Breast Reduction PAST SURGICAL HISTORY OF 06/14/2011 left foot for plantar fasciitis REVISE MEDIAN N/CARPAL TUNNEL SURG Left 03/22/2022 Left carpal tunnel release and injection left shoulder S CATH ABLATION THERMACHOICE 2012 uterine ablation Current Outpatient Medications Medication Sig pantoprazole DR (PROTONIX) 40 mg tablet Take 1 tablet by mouth once daily. escitalopram oxalate (LEXAPRO) 5 mg tablet Take 1 tablet by mouth daily at bedtime. For mood valACYclovir (VALTREX) 500 mg tablet Take 1 tablet by mouth two times a day. rOPINIRole (REQUIP) 0.5 mg tablet Take 1-2 tablets by mouth at bedtime as needed (restless legs). b (more content not included)... Normal [facility] Refuse Driver Office Visit Reporton 06-06-2024 Refuse Driver Office Visit Report [facility] [address], [address] [place] [address] OFFICE VISIT Date of Service: 06/06/24 MR#: [id number] Acct: [id number] Name: CLARISA MENDES Rep #: [id number] : 1970 Provider: LEE rojas Age/Sex: 54/F Location: [facility] Status: Signed Intake Vital Signs 01/29/24 15:44 06/06/24 09:42 06/06/24 09:46 Height 5 ft 2 in 5 ft 2 in 5 ft 2 in Weight: 185 lb 2 oz BMI 33.8 BP 120/70 Intake Visit Reasons: HOROMONE THERAPY Chief Complaint: Hormone therapy 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: No Is patient in pain?: No Allergies hydromorphone HCl (From Dilaudid) Allergy (Verified 06/06/24 09:41) Chest tightness prednisone Allergy (Verified 06/06/24 09:41) Itching warfarin sodium (From Coumadin) Allergy (Verified 06/06/24 09:41) Chest tightness milnacipran HCl (From Savella) Adverse Reaction (Verified 06/06/24 09:41) Other pregabalin (From Lyrica) Adverse Reaction (Verified 06/06/24 09:41) Rash rivaroxaban (From Xarelto) Adverse Reaction (Verified 06/06/24 09:41) Nausea Medications ???Medication ???Instructions ???Recorded ???Confirmed ???Type cetirizine 10 mg capsule (Zyrtec) 10 mg PO QHS allergies 01/22/17 0 06/06/24 History albuterol sulfate 90 mcg/actuation 2 puff inhalation Q4H PRN PRN 06/06/24 History aerosol inhaler Wheezing ondansetron 4 mg disintegrating 4 mg PO Q8H PRN PRN Nausea #10 tab s 12/11/22 06/06/24 Rx tablet escitalopram oxalate 5 mg tablet 5 mg PO DAILY 04/20/23 06/06/24 Hi story pantoprazole 40 mg tablet,delayed 40 mg PO DAILY 04/20/23 06/06/24 History release valacyclovir 500 mg tablet 500 mg PO DAILY 04/20/23 06/06/24 History pseudoephedrine 60 mg-DM 15 1 tab PO Q4-6H PRN cold symptoms 0 05/03/23 06/06/24 Rx mg-guaifenesin 400 mg tablet #20 tabs (Capmist DM) ropinirole 0.25 mg tablet 0.25 mg PO DAILY 10/22/23 06/06/24 History multivitamin with minerals-folic tab PO 11/22/23 06/06/24 History acid 200 mcg chewable tablet (Women's Multivitamin Gummies) clobetasol 0.05 % topical ointment 1 applic topical .COMPLEX #60 gr ams 01/29/24 06/06/24 Rx estradiol 0.01% (0.1 mg/gram) 1 appful vaginal 2XW #42.5 grams 1 03/30/23 06/06/24 Rx vaginal cream benzonatate 200 mg capsule 200 mg PO TID PRN cough #20 caps 0 05/26/24 06/06/24 Rx Is last menstrual period known: No Post menopausal: Yes Patient : No : No PFSH Medical History URI (upper respiratory infection) Mid back pain on right side COVID-19 Hx of blood clots Fibromyalgia Fatty liver Restless legs Difficulty swallowing History of hiatal hernia History of IBS Gastric reflux Non-smoker Asthma History of echocardiogram History of stress test Cardiology follow-up encounter uterine ablation r middle trigger finger release Delivery with history of Vitamin D deficiency Trigger ring finger of right hand Trigger middle finger of right hand Temporomandibular joint disorder Seizures Right hand paresthesia Rheumatoid arthritis PTSD (post-traumatic stress disorder) Patellofemoral disorder Impaired fasting glucose HTN (hypertension) Hypercholesteremia HSV infection Hayfever GERD (gastroesophageal reflux disease) Fibromyalgia muscle pain Endometriosis DVT (deep venous thrombosis) Diaphragmatic hernia without mention of obstruction or gangrene Depressive disorder Colon polyps Carpal tunnel syndrome Anxiety Calcaneal spur Aortic aneurysm Surgical History History of weight loss surgery Hx of tonsillectomy History of nasal surgery S/P foot surgery, left History of bilateral breast reduction surgery History of tubal ligation History of bilateral salpingectomy History of laparoscopic-assisted vaginal hysterectomy History of laparoscopic cholecystectomy History of esophagogastroduodenoscop y (EGD) Hx of colonoscopy History of carpal tunnel release Family History Mother Hypertension Hyperlipidemia alcohol/drug addiction Allergies Father alcohol/drug addiction Sister Thyroid disorder Fibromyalgia Blindness Grandmother Emphysema lung Heart disease Grandfather Emphysema lung Brother alcohol/drug addiction Social History 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 Normal [facility] Chest PA and Lateralon 05-26 Chest PA and Lateral [facility] Services [address] [place] [address] Chest PA and Lateral MR#: [id number] Acct: [id number] Name: CLARISA MENDES Rep #: [id number] : 1970 F 54 From: Constantin frye MD PCP: Dr. Tang Olguin DO Status: REG CLI Study: Chest PA and Lateral Date of Exam: 05/26/24 Exam# [id number] Ordering Dr: Herb Dominique PA PROCEDURE: CHEST PA AND LATERAL 05/26/2024 REASON FOR EXAM: COUGH TECHNIQUE: Frontal view of the chest. COMPARISON: 01/07/2024 FINDINGS: The heart size is normal. No focal consolidation. No pneumothorax. No pleural effusion. RAD/Chest PA and Lateral IMPRESSION: No Acute Findings. Reading Location: [facility] CC: Dr. Tang Olguin DO; PRINCESS Claudio Head Cook: Signed Normal [facility] Urgent Care Visit Reporton 0 05-26-2024 Urgent Care Visit Report [facility] [address], [address] [place] [address] OFFICE VISIT Date of Service: 05/26/24 MR#: [id number] Acct: [id number] Name: CLARISA MENDES Rep #: [id number] : 1970 Provider: PRINCESS Claudio Age/Sex: 54/F Location: [facility] Status: Signed Intake Vital Signs 01/29/24 15:44 05/26/24 16:26 Height 5 ft 2 in BP 106/64 Blood Pressure Location Lt brachial Position Sitting Respiration 16 Pulse 66 Pulse Source NIBP Temp 98.0 F Temp Source Oral Pulse Oximetry (%) 98 Oxygen Delivery Method room air Intake Visit Reasons: SORE THROAT, COUGH Chief Complaint: cough, chest heavy, ears plugged, ST 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: No Is patient in pain?: No Allergies hydromorphone HCl (From Dilaudid) Allergy (Verified 05/26/24 16:27) Chest tightness prednisone Allergy (Verified 05/26/24 16:27) Itching warfarin sodium (From Coumadin) Allergy (Verified 05/26/24 16:27) Chest tightness milnacipran HCl (From Savella) Adverse Reaction (Verified 05/26/24 16:27) Other pregabalin (From Lyrica) Adverse Reaction (Verified 05/26/24 16:27) Rash rivaroxaban (From Xarelto) Adverse Reaction (Verified 05/26/24 16:27) Nausea Is last menstrual period known: No Post menopausal: No Patient : No Have you fallen in the past year?: No Nurse's Note: cough, chest heavy, ears plugged, ST for over 1 week. chest heaviness has significantly worsened in last few days, concern for pneumonia. remote hx of asthma. [facility] Medical History (Updated 05/26/24 @ 17:08 by PRINCESS Newberry) URI (upper respiratory infection) Mid back pain on right side Contact with or exposure to other viral diseases Acute sinusitis, unspecified COVID-19 Hx of blood clots Fibromyalgia Fatty liver Restless legs Difficulty swallowing History of hiatal hernia History of IBS Gastric reflux Non-smoker Asthma History of echocardiogram History of stress test Cardiology follow-up encounter uterine ablation r middle trigger finger release Delivery with history of Vitamin D deficiency Trigger ring finger of right hand Trigger middle finger of right hand Temporomandibular joint disorder Seizures Right hand paresthesia Rheumatoid arthritis PTSD (post-traumatic stress disorder) Patellofemoral disorder Impaired fasting glucose HTN (hypertension) Hypercholesteremia HSV infection Hayfever GERD (gastroesophageal reflux disease) Fibromyalgia muscle pain Endometriosis DVT (deep venous thrombosis) Diaphragmatic hernia without mention of obstruction or gangrene Depressive disorder Colon polyps Carpal tunnel syndrome Anxiety Calcaneal spur Aortic aneurysm Surgical History History of weight loss surgery Hx of tonsillectomy History of nasal surgery S/P foot surgery, left History of bilateral breast reduction surgery History of tubal ligation History of bilateral salpingectomy History of laparoscopic-assisted vaginal hysterectomy History of laparoscopic cholecystectomy History of esophagogastroduodenoscop y (EGD) Hx of colonoscopy History of carpal tunnel release Family History Mother Hypertension Hyperlipidemia alcohol/drug addiction Allergies Father alcohol/drug addiction Sister Thyroid disorder Fibromyalgia Blindness Grandmother Emphysema lung Heart disease Grandfather Emphysema lung Brother alcohol/drug addiction Social 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 No complaints of fever, chills, sweats, lightheadedness/dizziness , nausea/vomiting, or chest pressure with shortness of breath/dyspnea on exertion. Non-smoker. Several close contacts with similar complaints (employment concerns taking care of children). No uuql-ikz-unwagsn products have been taken to assist. No other associated symptoms and no other alleviating/aggravating factors. ROS Const Constitutional: No other (As above) Exam Const General: cooperative, healthy appearing and no acute distress Orientation: alert and awake HENMT Head: normal to inspection Ears: hearing grossly normal bilaterally, external ears normal (more content not included)... Normal [facility] ESR Westergren method (Bld) [Velocity]on 05-17-2024 ESR (Bld) [Velocity] 12 mm/h [facility] Interpretation and review of laboratory results Normal [facility] HbA1c (Bld)on 05-17-2024 Average glucose Estimated from glycated hemoglobin (Bld) [Mass/Vol] 97 mg/dL [facility] Comment on above: eAG: (Estimated aver age glucose) is a calculated value from HgbA1c and is quality assurance representative of the average blood glucose level in the last 2-3 month period. HbA1c (Bld) [Mass fraction] 5 % 4.3 - 5.6 % [facility] Comment on above: [place] Diabetes As sociation guidelines indicate that patients with HgbA1c in the range 5.7-6.4% are at increased risk for development of diabetes, and intervention by lifestyle modification may be beneficial. HgbA1c greater or equal to 6.5% is considered diagnostic of diabetes. [facility] C-REACTIVE PROTEINon 025 CRP [Mass/Vol] 0.4 mg/dL [facility] - 0.9 mg/dL [facility] CBC W Auto Differential pane l (Bld)on 05-16-2024 Basophils (Bld) [#/Vol] 0.05 10*3/uL [facility] Basophils/100 WBC (Bld) 0.6 % [facility] Differential cell count method Nom (Bld) Auto [facility] Eosinophils (Bld) [#/Vol] 0.08 10*3/uL [facility] Eosinophils/100 WBC (Bld) 1 % [facility] Erythrocyte distribution width (RBC) [Ratio] 12.8 % 11.5 - 15.0 % [facility] Hematocrit (Bld) [Volume fraction] 43.6 % 36.0 - 46.0 % [facility] Hemoglobin (Bld) [Mass/Vol] 14.1 g/dL 11.5 - 15.5 g/dL [facility] Immature granulocytes (Bld) [#/Vol] [facility] Immature granulocytes/100 WBC (Bld) 0.2 % [facility] Lymphocytes (Bld) [#/Vol] 2.34 10*3/uL [facility] Lymphocytes/100 WBC (Bld) 29 % [facility] MCH (RBC) [Entitic mass] 30.4 pg 26. 0 - 34.0 pg [facility] MCHC (RBC) [Mass/Vol] 32.3 g/dL 30.5 - 36.0 g/dL [facility] MCV (RBC) [Entitic vol] 94 fL 80.0 - 100.0 fL [facility] Monocytes (Bld) [#/Vol] 0.47 10*3/uL [facility] Monocytes/100 WBC (Bld) 5.8 % [facility] Neutrophils (Bld) [#/Vol] 5.1 10*3/uL [facility] Neutrophils/100 WBC (Bld) 63.4 % [facility] Nucleated RBC (Bld) [#/Vol] NINF [facility] Nucleated RBC/100 WBC (Bld) [Ratio] 0 % /100 WBC [facility] Platelet mean volume (Bld) [Entitic vol] 11.1 fL 9.0 - 12.7 fL [facility] Platelets (Bld) [#/Vol] 254 10*3/uL [facility] RBC (Bld) [#/Vol] 4.64 10*6/uL 3.90 - 5.20 m/uL [facility] WBC (Bld) [#/Vol] 8.06 10*3/uL [facility] Basophils (Bld) [#/Vol] 0.05 10*3/uL Normal <0.11 [facility] Comment on above: Order Comment: Speci men Type: BLOOD SPECIMENOrdering Facility: [facility] Address: [address] [place] [address] Performed By: #### 4 537-7 ####[facility] LABCLIA [id number] [address] OF [place]#### 41056-7 ####[facility] LABORATORYCLIA [id number] [address] STATES OF [facility] Basophils/100 WBC (Bld) 0.6 % Normal [facility] Comment on above: Order Comment: Speci men Type: BLOOD SPECIMENOrdering Facility: [facility] Address: [address] [place] [address] Performed By: #### 4 537-7 ####[facility] LABCLIA [id number] [place] [address] [place]#### 45393-7 ####[facility] LABORATORYCLIA [id number] [place] [address] [place] Differential cell count method Nom (Bld) Auto Normal [facility] Comment on above: Order Comment: Speci men Type: BLOOD SPECIMENOrdering Facility: [facility] Address: [address] [place] [address] Performed By: #### 4 537-7 ####[facility] LABCLIA [id number] [place] [address] [place]#### 02094-5 ####[facility] LABORATORYCLIA [id number] [place] [address] [place] Eosinophils (Bld) [#/Vol] 0.08 10*3/uL Normal <0.46 [facility] Comment on above: Order Comment: Speci men Type: BLOOD SPECIMENOrdering Facility: [facility] Address: [address] [place] [address] Performed By: #### 4 537-7 ####[facility] LABCLIA [id number] [address] STATES [place]#### [address]70-2 ####[facility] LABORATORYCLIA [id number] [address] STATES [place] Eosinophils/100 WBC (Bld) 1.0 % Normal [facility] Comment on above: Order Comment: Speci men Type: BLOOD SPECIMENOrdering Facility: [facility] Address: [address] [place] [address] Performed By: #### 4 537-7 ####[facility] LABCLIA [id number] [place] [address] [place]#### 61751-3 ####[facility] LABORATORYCLIA [id number] [place] [address] [place] Erythrocyte distribution width (RBC) [Ratio] 12.8 % Normal 11.5-15.0 [facility] Comment on above: Order Comment: Speci men Type: BLOOD SPECIMENOrdering Facility: [facility] Address: [address] [place] [address] Performed By: #### 4 537-7 ####[facility] LABCLIA [id number] [place] [address] [place]#### 48396-9 ####[facility] LABORATORYCLIA [id number] [address] STATES [place] Hematocrit (Bld) [Volume fraction] 43.6 % Normal 36.0-46.0 [facility] Comment on above: Order Comment: Speci men Type: BLOOD SPECIMENOrdering Facility: [facility] Address: [address] [place] [address] Performed By: #### 4 537-7 ####[facility] LABCLIA [id number] [address] STATES [place]#### 80948-8 ####[facility] LABORATORYCLIA [id number] [place] [address] [place] Hemoglobin (Bld) [Mass/Vol] 14.1 g/dL Normal 11.5-15.5 [facility] Comment on above: Order Comment: Speci men Type: BLOOD SPECIMENOrdering Facility: [facility] Address: [address] [place] [address] Performed By: #### 4 537-7 ####[facility] LABCLIA [id number] [place] [address] [place]#### 25964-9 ####[facility] LABORATORYCLIA [id number] [place] [address] [place] Immature granulocytes (Bld) [#/Vol] 10*3/uL Normal <0.10 [facility] Comment on above: Order Comment: Speci men Type: BLOOD SPECIMENOrdering Facility: [facility] Address: [address] [place] [address] Performed By: #### 4 537-7 ####[facility] LABCLIA [id number] [place] [address] [place]#### 92684-7 ####[facility] LABORATORYCLIA [id number] [place] [address] [place] Immature granulocytes/100 WBC (Bld) 0.2 % Normal [facility] Comment on above: Order Comment: Speci men Type: BLOOD SPECIMENOrdering Facility: [facility] Address: [address] [place] [address] Performed By: #### 4 537-7 ####[facility] LABCLIA [id number] [place] [address] [place]#### 46866-4 ####[facility] LABORATORYCLIA [id number] [place] [address] [place] Lymphocytes (Bld) [#/Vol] 2.34 10*3/uL Normal 1.00-4.00 [facility] Comment on above: Order Comment: Speci men Type: BLOOD SPECIMENOrdering Facility: [facility] Address: [address] [place] [address] Performed By: #### 4 537-7 ####[facility] LABCLIA [id number] [address] STATES [place]#### 40662-2 ####[facility]ORATORYCLIA [id number] [address] [place] Lymphocytes/100 WBC (Bld) 29.0 % Normal [facility] Comment on above: Order Comment: Speci men Type: BLOOD SPECIMENOrdering Facility: [facility] Address: [address] [place] [address] Performed By: #### 4 537-7 ####[facility] LABCLIA [id number] [place] [address] [place]#### 94767-2 ####[facility] LABORATORYCLIA [id number] [address] MCH (RBC) [Entitic mass] 30.4 pg Normal 26.0-34.0 [facility] Comment on above: Order Comment: Speci men Type: BLOOD SPECIMENOrdering Facility: [facility] Address: [address] [place] [address] Performed By: #### 4 537-7 ####[facility] LABCLIA [id number] [address] STATES [place]#### 72975-7 ####[facility] LABORATORYCLIA [id number] [address] STATES [facility] MCHC (RBC) [Mass/Vol] 32.3 g/dL Normal 30.5-36.0 [facility] Comment on above: Order Comment: Speci men Type: BLOOD SPECIMENOrdering Facility: [facility] Address: [address] [place] [address] Performed By: #### 4 537-7 ####[facility] LABCLIA [id number] [address]#### 75331-1 ####[facility] LABORATORYCLIA [id number] [address] STATES [place] MCV (RBC) [Entitic vol] 94.0 fL Normal 80.0-100.0 [facility] Comment on above: Order Comment: Speci men Type: BLOOD SPECIMENOrdering Facility: [facility] Address: [address] [place] [address] Performed By: #### 4 537-7 ####[facility] LABCLIA [id number] [address] [place]#### 03447-1 ####[facility] LABORATORYCLIA [id number] [address] [place] Monocytes (Bld) [#/Vol] 0.47 10*3/uL Normal <0.87 [facility] Comment on above: Order Comment: Speci men Type: BLOOD SPECIMENOrdering Facility: [facility] Address: [address] [place] [address] Performed By: #### 4 537-7 ####[facility] LABCLIA [id number] [place] [address] [place]#### 68278-4 ####[facility]ORATORYCLIA [id number] [address] [place] Monocytes/100 WBC (Bld) 5.8 % Normal [facility] Comment on above: Order Comment: Speci men Type: BLOOD SPECIMENOrdering Facility: [facility] Address: [address] [place] [address] Performed By: #### 4 537-7 ####[facility] LABCLIA [id number] [address] [place]#### 39485-1 ####[facility]ORATORYCLIA [id number] [address] [place] Neutrophils (Bld) [#/Vol] 5.10 10*3/uL Normal 1.45-7.50 [facility] Comment on above: Order Comment: Speci men Type: BLOOD SPECIMENOrdering Facility: [facility] Address: [address] [place] [address] Performed By: #### 4 537-7 ####[facility] LABCLIA [id number] [place] [address] [place]#### 24393-4 ####[facility]ORATORYCLIA [id number] [address] [place] Neutrophils/100 WBC (Bld) 63.4 % Normal [facility] Comment on above: Order Comment: Speci men Type: BLOOD SPECIMENOrdering Facility: [facility] Address: [address] [place] [address] Performed By: #### 4 537-7 ####[facility] LABCLIA [id number] [place] [address] [place]#### 03590-2 ####[facility] LABORATORYCLIA [id number] [address] STATES [facility] Nucleated RBC (Bld) [#/Vol] 10*3/uL Normal <0.01 [facility] Comment on above: Order Comment: Speci men Type: BLOOD SPECIMENOrdering Facility: [facility] Address: [address] [place] [address] Performed By: #### 4 537-7 ####[facility] LABCLIA [id number] [place] [address] [place]#### 99117-2 ####[facility] LABORATORYCLIA [id number] [address] [place] Nucleated RBC/100 WBC (Bld) [Ratio] 0.0 /100 WBC Normal [facility] Comment on above: Order Comment: Speci men Type: BLOOD SPECIMENOrdering Facility: [facility] Address: [address] [place] [address] Performed By: #### 4 537-7 ####[facility] LABCLIA [id number] [address] [place]#### 69933-3 ####[facility] LABORATORYCLIA [id number] [address] [place] Platelet mean volume (Bld) [Entitic vol] 11.1 fL Normal 9.0-12.7 [facility] Comment on above: Order Comment: Speci men Type: BLOOD SPECIMENOrdering Facility: [facility] Address: [address] [place] [address] Performed By: #### 4 537-7 ####[facility] LABCLIA [id number] [place] [address] [place]#### 52146-2 ####[facility] LABORATORYCLIA [id number] [place] [address] [place] Platelets (Bld) [#/Vol] 254 10*3/uL Normal 150-400 [facility] Comment on above: Order Comment: Speci men Type: BLOOD SPECIMENOrdering Facility: [facility] Address: [address] [place] [address] Performed By: #### 4 537-7 ####[facility] LABCLIA [id number] [place] [address] [place]#### 13778-1 ####[facility] LABORATORYCLIA [id number] [place] [address] [place] RBC (Bld) [#/Vol] 4.64 10*6/uL Normal 3.90-5.20 [facility] Comment on above: Order Comment: Speci men Type: BLOOD SPECIMENOrdering Facility: [facility] Address: [address] [place] [address] Performed By: #### 4 537-7 ####[facility] LABCLIA [id number] [place] [address] [place]#### 60328-2 ####[facility] LABORATORYCLIA [id number] [place] [address] [place] WBC (Bld) [#/Vol] 8.06 10*3/uL Normal 3.70-11.00 [facility] Comment on above: Order Comment: Speci men Type: BLOOD SPECIMENOrdering Facility: [facility] Address: [address] [place] [address] Performed By: #### 4 537-7 ####[facility] LABCLIA [id number] [place] [address] [place]#### 82368-9 ####[facility]ORATORYCLIA [id number] [place] [address] [place] CNOVon 05-16-2024 CNOV Office Visit (FAMPWS ) ----- CLARISA MENDES ([id number]) 1970 F NFR Date Time Provider Department 05/16/24 2:00 PM TANG OLGUIN FAMPWS During your visit today, we recorded the following information about you: Temperature Pulse Respiration Blood pressure 97.5 degrees 76/minute 16/minute 100/60 Weight 83.5 kg Tang Olguin, DO 05/29/2024 12:51 PM Signed CC: Clarisa Mendes is a 53 year old female who presents to the office for follow up HPI: At last OFFICE VISIT August 21, 2023 Concerns for hypoglycemia and sometimes hypeglycemia- no [...] of hunger, even after her bariatric surgery Currently Fibromyalgia, recently has been flared up over the winter months with increased joint pain and muscle aches, no obvious swelling or skin color changes or rashes, No known trigger other than has had some stressors in her life Overweight/obesity, weight now at 184 lbs, feels she is stagnant in her ability to continue to lose weight. This is frustrating to her. Has had bariatric surgery. She is interested in starting Adipex to see if this helps her + chronic fatigue + urinary frequency PAST MEDICAL HISTORY Diagnosis Date Abdominal pain [...] chronic gastritis EGD TRANSORAL BIOPSY SINGLE/MULTIPLE 05/04/2010 ESOPHAGOGASTRODUODENOSCOP Y TRANSORAL DIAGNOSTIC 11/23/2017 EGD ESOPHAGOGASTRODUODENOSCOP Y TRANSORAL DIAGNOSTIC 05/01/2019 EGD GASTRIC BYPASS HX [...] uterine ablation Current Outpatient Medications Medication Sig escitalopram oxalate (LEXAPRO) 5 mg tablet Take 1 tablet by mouth daily at bedtime. For mood Phentermine HCl (ADIPEX-P) 37.5 mg tablet Take 1 tablet by mouth once daily for 30 days. BMI 33.[address] (PROTONIX) 40 mg tablet Take 1 tablet by mouth once daily. valACYclovir (VALTREX) 500 mg tablet (more content not included)... Normal [facility] 05-16-2024 [facility] Telephone (FAMWS) ----- CLARISA MENDES ([id number]) 1970 F NFR Date Time Provider Department 05/16/24 TANG OLGUIN [facility] During your visit today, we recorded the following information about you: Tang Olguin DO 05/16/2024 2:53 PM Signed Please call Dr. Prajapati office for [employer] [employer] at [facility] to let her know that I think Lorna is in need of HRT hormone therapy options to help her. Please have the office make an appointment DO Elen Wright Linda M, LPN 05/16/2024 3:03 PM Signed I did reach out to Dr. Prajapati's office they will call her but are requesting office note. Could you please finish so I could fax that to them. Neva Shields APRN.[employer]ENCE [employer] DIRECTOR 06/05/2024 2:28 PM Signed This note was completed, did it get sent? Neva Shields APRN.[employer]IDENCE LIFE DIRECTOR Alicia Castle MA 06/06/2024 2:53 PM Signed Faxed Alicia Castle MA Allergies As of Date: 05/16/2024 Noted Allergy Reaction MICONAZOLE 01/13/2004 9 - Itching MILNACIPRAN 07/19/2011 1 - Mental Status Change 14 - Other: See Comments Comments: Duson weird. RIVAROXABAN 12/02/2014 14 - Other: See [...] PREDNISONE 12/27/2021 9 - Itching Date Reviewed: 05/16/2024 Reviewed by: Alesha Madrigal LPN - Fully Assessed Prescriptions as of 06/06/2024 - escitalopram oxalate (LEXAPRO) 5 mg tablet Take 1 tablet by mouth daily at bedtime. For mood - Phentermine HCl (ADIPEX-P) 37.5 mg tablet Take 1 tablet by mouth once daily for 30 days. BMI 33.65 - pantoprazole DR (PROTONIX) 40 mg tablet Take 1 tablet by mouth once daily. - valACYclovir (VALTREX) 500 mg tablet Take 1 tablet by mouth two times a day. - rOPINIRole (REQUIP) 0.5 mg tablet Take 1-2 tablets by mouth at bedtime as needed (restless legs). - blood sugar diagnostic (BLOOD GLUCOSE TEST) [...] once daily. Rinse mouth after use. - fluticasone (FLOVENT HFA) 110 mcg/actuation inhaler [...] 8 hours as needed for nausea/vomiting. - umyppu-qsrpsvrn-mawcuso (CREON) 36,000-114,000- 180,000 unit delayed release capsule [...] for nebulizer Problem List As Of Date 05/16/2024 Noted Resolved HYPERTROPHY OF BREAST [N62] 01/13/2004 05/18/2006 Endometriosis [617] 04/22/2014 Anxiety state [F41.1] Moderate single current episode of major depres* TM JOINT DISORDER, UNSPEC [M26.609] 05/18/2006 Unspecified Myalgia and Myositis [KES0890] 11/12/2009 Other and unspecified hyperlipidemia [E78.5] 03/30/2005 Personal history of colonic polyps [Z86.0100] 03/15/2006 07/01/2010 PAIN ABDOMEN( Right Upper Quadrant) [...] 11/12/2009 IBS (irritable bowel syndrome) [K58.9] 11/12/2009 (more content not included)... Normal [facility] CRP SerPl-mCncon 05-16-2024 CRP [Mass/Vol] 0.4 mg/dL Normal <0.9 [facility] Comment on above: Order Comment: Speci men Type: BLOOD SPECIMENOrdering Facility: [facility] Address: [address] [place] [address] Performed By: #### 1 988-5, 3024-7, 3016-3, 84672-8 ####[facility] LABORATORYCLIA [id number] [place] [address] [place] CRP [Mass/Vol]on 05-16-2024 Interpretation and review of laboratory results Normal [facility] Comprehensive metabolic 2000 panelon 05-16-2024 Albumin [Mass/Vol] 4.4 g/dL 3.9 - 4.9 g/dL [facility] ALP [Catalytic activity/Vol] 139 U/L High 34 - 123 U/L [facility] ALT With P-5'-P [Catalytic activity/Vol] 25 U/L 7 - 38 U/L [facility] Anion gap [Moles/Vol] 10 mmol/L 8 - 15 mmol/L [facility] AST With P-5'-P [Catalytic activity/Vol] 26 U/L 13 - 35 U/L [facility] Bilirubin [Mass/Vol] 0.2 mg/dL 0.2 - 1 .3 mg/dL [facility] Calcium [Mass/Vol] 9.3 mg/dL 8.5 - 10. 2 mg/dL [facility] Chloride [Moles/Vol] 102 mmol/L 98 - 10 7 mmol/L [facility] CO2 [Moles/Vol] 26 mmol/L 22 - 30 mmol/L [facility] Creatinine [Mass/Vol] 0.66 mg/dL 0.58 - 0.96 mg/dL [facility] GFR/1.73 sq M.predicted among non-blacks MDRD (S/P/Bld) [Vol rate/Area] 106 mL/min/{1.73_m2} - PINF [facility] Comment on above: Estimated Glomerular Filtration Rate (eGFR) is calculated using the 2020 CKD-EPI creatinine equation. This equation utilizes serum creatinine, sex, and age as parameters. The creatinine assay has traceable calibration to isotope dilution-mass spectrometry. Refer to KDIGO guidelines for clinical interpretation. In patients with unstable renal function, e.g. those with acute kidney injury, the eGFR may not accurately reflect actual GFR. Glucose [Mass/Vol] 86 mg/dL 74 - 99 mg/dL [facility] Comment on above: The [place] Diabete s Association (ADA) provides guidance for cutoff values [...] Standards of Medical Care in Diabetes 2016, [place] Diabetes Association. Diabetes Care. 2016.39(Suppl 1). Interpretation and review of laboratory results Abnormal [facility] Potassium [Moles/Vol] 4.4 mmol/L 3.7 - 5.1 mmol/L [facility] Protein [Mass/Vol] 7.6 g/dL 6.3 - 8.0 g/dL [facility] Sodium [Moles/Vol] 138 mmol/L 136 - 144 mmol/L [facility] Urea nitrogen [Mass/Vol] 13 mg/dL 7 - 21 mg/dL [facility] Albumin [Mass/Vol] 4.4 g/dL Normal 3.9-4.9 [facility] Comment on above: Order Comment: Speci men Type: BLOOD SPECIMENOrdering Facility: [facility] Address: [address] [place] [address] Performed By: #### 1 988-5, 3024-7, 6-3, 17449-1 ####[facility] LABORATORYCLIA [id number] [place] [address] [place] ALP [Catalytic activity/Vol] 139 U/L High 34-123 [facility] Comment on above: Order Comment: Speci men Type: BLOOD SPECIMENOrdering Facility: [facility] Address: [address] [place] [address] Performed By: #### 1 988-5, 302-7, 3015-3, 89298-6 ####[facility] LABORATORYCLIA [id number] [place] [id number] [place] ALT With P-5'-P [Catalytic activity/Vol] 25 U/L Normal 7-38 [facility] Comment on above: Order Comment: Speci men Type: BLOOD SPECIMENOrdering Facility: [facility] Address: [address] [place] [address] Performed By: #### 1 988-5, 302-7, 3015-3, 07275-8 ####[facility] LABORATORYCLIA [id number] [place] [id number] [place] Anion gap [Moles/Vol] 10 mmol/L Normal 8-15 [facility] Comment on above: Order Comment: Speci men Type: BLOOD SPECIMENOrdering Facility: [facility] Address: [address] [place] [address] Performed By: #### 1 988-5, 3024-7, 3015-3, 92509-5 ####[facility] LABORATORYCLIA [id number] [place] [address] [place] AST With P-5'-P [Catalytic activity/Vol] 26 U/L Normal 13-35 [facility] Comment on above: Order Comment: Speci men Type: BLOOD SPECIMENOrdering Facility: [facility] Address: [address] [place] [address] Performed By: #### 1 988-5, 3024-7, 3015-3, 99201-8 ####[facility] LABORATORYCLIA [id number] [place] [address] [place] Bilirubin [Mass/Vol] 0.2 mg/dL Normal 0.2-1.3 [facility] Comment on above: Order Comment: Speci men Type: BLOOD SPECIMENOrdering Facility: [facility] Address: [address] [place], [place] [id number] Performed By: #### 1 988-5, 302-7, 3015-3, 46647-0 ####[facility] LABORATORYCLIA [id number] [place] [address] [place] Calcium [Mass/Vol] 9.3 mg/dL Normal 8.5-10.2 [facility] Comment on above: Order Comment: Speci men Type: BLOOD SPECIMENOrdering Facility: [facility] Address: [address] [place] [address] Performed By: #### 1 988-5, 302-7, 3015-3, 05398-1 ####[facility] LABORATORYCLIA [id number] [place] [address] [place] Chloride [Moles/Vol] 102 mmol/L Normal 98-107 [facility] Comment on above: Order Comment: Speci men Type: BLOOD SPECIMENOrdering Facility: [facility] Address: [address] [place] [address] Performed By: #### 1 988-5, 302-7, 3015-3, 82936-4 ####[facility] LABORATORYCLIA [id number] [place] [address] [place] CO2 [Moles/Vol] 26 mmol/L Normal 22-30 [facility] Comment on above: Order Comment: Speci men Type: BLOOD SPECIMENOrdering Facility: [facility] Address: [address] [place] [address] Performed By: #### 1 988-5, 3024-7, 3016-3, 47163-3 ####[facility]PITALIA [id number] [place] [address] [place] [facility] Creatinine [Mass/Vol] 0.66 mg/dL Normal 0.58-0.96 [facility] Comment on above: Order Comment: Specmitchel asencio Type: BLOOD SPECIMENOrdering Facility: [facility] Address: [address] [place] [address] Performed By: #### 1 988-5, 3024-7, 3016-3, 59340-2 ####[facility]ITAL[facility] [id number] [place] [id number] [facility] Creatinine and Glomerular filtration rate.predicted panel (S/P/Bld) 106 mL/min/1.73m??? Normal >=60 [facility] Comment on above: Order Comment: Fabiola asencio Type: BLOOD SPECIMENOrdering Facility: [facility] Address: [address] [place] [address] Result Comment: Cris mated Glomerular Filtration Rate [...] accurately reflect actual GFR. Performed By: #### 1 988-5, 3024-7, 3016-3, 74594-1 ####[facility] [id number] [place] [address] [place] Glucose [Mass/Vol] 86 mg/dL Normal 74-99 [facility] Comment on above: Order Comment: Fabiola asencio Type: BLOOD SPECIMENOrdering Facility: [facility] Address: [address] [place] [address] Result Comment: The [place] Diabetes Association (ADA) provides guidance for cutoff [...] Standards of Medical Care in Diabetes 2016, [place] Diabetes Association. Diabetes Care. 2016.39(Suppl 1). Performed By: #### 1 988-5, 3024-7, 6-3, 56825-1 ####[facility] LABORATORYCLIA [id number] [place] [id number] [place] Potassium [Moles/Vol] 4.4 mmol/L Normal 3.7-5.1 [facility] Comment on above: Order Comment: Speci men Type: BLOOD SPECIMENOrdering Facility: [facility] Address: [address] [place] [address] Performed By: #### 1 988-5, 7, 3015-3, 45646-5 ####[facility] [id number] [place] [address] [place] Protein [Mass/Vol] 7.6 g/dL Normal 6.3-8.0 [facility] Comment on above: Order Comment: Speci men Type: BLOOD SPECIMENOrdering Facility: [facility] Address: [address] [place] [address] Performed By: #### 1 988-5, 3027, 3, 59463-2 ####[facility] LABORATORYCLIA [id number] [place] [id number] [place] Sodium [Moles/Vol] 138 mmol/L Normal 136-144 [facility] Comment on above: Order Comment: Speci men Type: BLOOD SPECIMENOrdering Facility: [facility] Address: [address] [place] [address] Performed By: #### 1 988-5, 302-7, 3015-3, 53120-4 ####[facility] LABORATORYCLIA [id number] [place] [address] [place] [facility] Urea nitrogen [Mass/Vol] 13 mg/dL Normal 7-21 [facility] Comment on above: Order Comment: Speci men Type: BLOOD SPECIMENOrdering Facility: [facility] Address: [address] [place] [address] Performed By: #### 1 988-5, 3024-7, 3016-3, 30133-8 ####[facility] LABORATORYIA [id number] [place] [address] [place] ESR Westergren method (Bld) [Velocity]on 05-16-2024 ESR (Bld) [Velocity] 12 mm/h Normal 0-20 [facility] Comment on above: Order Comment: Speci men Type: BLOOD SPECIMENOrdering Facility: [facility] Address: [address] [place] [address] Performed By: #### 4 537-7 ####[facility] LABCLIA [id number] [address] [place]#### 86996-7 ####[facility] [id number] [place] [id number] [place] Free T4 [Mass/Vol]on 025 Interpretation and review of laboratory results Normal [facility] HbA1c (Bld)on 05-16-2024 Average glucose Estimated from glycated hemoglobin (Bld) [Mass/Vol] 97 mg/dL Normal [facility] Comment on above: Order Comment: Speci men Type: BLOOD SPECIMENOrdering Facility: [facility] Address: [address] [place] [address] Result Comment: eAG: (Estimated average glucose) is a calculated value from HgbA1c and is quality assurance representative of the average blood glucose level in the last 2-3 month period. Performed By: #### 5 5454-3 ####[facility] LABCLIA [id number] [address] STATES OF [facility] HbA1c (Bld) [Mass fraction] 5.0 % Normal 4.3-5.6 [facility] Comment on above: Order Comment: Speci men Type: BLOOD SPECIMENOrdering Facility: [facility] Address: [address] [place], [place] [address] Result Comment: [place] Diabetes Association guidelines indicate that patients with HgbA1c in the range 5.7-6.4% are at increased risk for development of diabetes, and intervention by lifestyle modification may be beneficial. HgbA1c greater or equal to 6.5% is considered diagnostic of diabetes. Performed By: #### 5 5454-3 ####[facility] LABCLIA [id number] [place] [id number] [place] No Panel Informationon 05-16 [facility] T4 FREE/FREE THYROXINEon Free T4 [Mass/Vol] 0.9 ng/dL 0.9 - 1.7 ng/dL [facility] T4 Free SerPl-mCncon 025 Free T4 [Mass/Vol] 0.9 ng/dL Normal 0.9-1.7 [facility] Comment on above: Order Comment: Speci men Type: BLOOD SPECIMENOrdering Facility: [facility] Address: [address] [place] [address] Performed By: #### 1 988-5, 30247, 3016-3, 37532-8 ####[facility] LABORATORYCLIA [id number] [place] [address] [place] THYROID STIMULATING HORMONEo n 05-16-2024 TSH Qn 2.78 m[IU]/L [facility] TSH Qnon 05-16-2024 Interpretation and review of laboratory results Normal [facility] TSH SerPl-aCncon 05-16-2024 TSH Qn 2.780 m[IU]/L Normal 0.270-4.20 0 [facility] Comment on above: Order Comment: Speci men Type: BLOOD SPECIMENOrdering Facility: [facility] Address: [address] [place] [address] Performed By: #### 1 988-5, 3026-7, 3016-3, 70761-5 ####[facility] LABORATORYCLIA [id number] [place] [address] [place] UA DIP, URINE (POC)on 2024 BILIRUBIN UA (POCT) Negative Negative [facility] CLARITY UA (POCT) Clear [facility] COLOR UA (POCT) Yellow [facility] GLUCOSE UA (POCT) Negative Negative mg/dL [facility] Hemoglobin Ql (U) Negative Negative [facility] KETONE UA (POCT) Negative Negative mg/dL [facility] LEUKOCYTES UA (POCT) Negative Negative [facility] NITRITE UA (POCT) Negative Negative [facility] PH UA (POCT) 6 4.5 - 8.0 [facility] Protein Ql (U) Negative Negative mg/dL [facility] SPECIFIC GRAVITY UA (POCT) >=1.030 1.005 - 1.030 [facility] UROBILINOGEN UA (POCT) 1 Tess l E.U./dL [facility] Location:[address], [place], [place], [address] [place] [address] POINT OF CARE [facility] Urine Cultureon 03-01-2024 URC Below infection leve l. Mixed Gram Positive Organisms [place] Count 1000-10,000 MIXC Mixed contaminants. Submit a new specimen if indicated. Normal [facility] Comment on above: Performed By: #### M 100.2200 ####[facility] [address] [place], [place], [address] Bilirubin Test strip Ql (U)O rdered By: Herb Dominique on 02-27-2024 Bilirubin Ql (U) Negative Negative [facility] Calcium oxalate crystals LM Ql (Urine sed)Ordered By: Herb Dominique on 02-27-2024 Urine Calcium Oxalate Crystals 2+ /hpf [facility] Epithelial cells.squamous LM Ql (Urine sed)Ordered By: Herb Dominique on 02-27-2024 Epithelial cells.squamous LM.HPF (Urine sed) [#/Area] 0 /[HPF] 5-10 [facility] Glucose Ql (U)Ordered By: St miguelito Dominique on 02-27-2024 Urine Glucose (UA) Normal mg/dl Normal [facility] Ketones Test strip Ql (U)Ord ered By: Herb Dominique on 02-27-2024 Ketones Ql (U) Negative Negative [facility] Laboratory - Chemistry and C hemistry - challengeon 02-27-2024 Bilirubin Ql (U) Negative [facility] Glucose Ql (U) Negative [facility] Ketones Ql (U) Negative [facility] pH (U) 5.0 [pH] [facility] Specific gravity (U) [Rel density] 1.025 [facility] Urobilinogen (U) [Mass/Vol] Negative [facility] Laboratory - Hematology and Cell countson 02-27-2024 Hemoglobin Ql (U) Negative [facility] Laboratory - Specimen inform ationon 02-27-2024 Clarity (U) Clear [facility] Color (U) DARK YELLOW [facility] Laboratory - Urinalysison Nitrite Ql (U) Negative [facility] Protein Ql (U) Trace [facility] Microscopic analysis of urin e for red blood cells (RBC)Ordered By: Herb Dominique on 02-27-2024 Urine RBC 5-10 SEEN /hpf 0-5 [facility] Mucus LM Ql (Urine sed)Order ed By: Herb Dominique on 02-27-2024 Mucus Ql (Urine sed) 0 SEEN /hpf [facility] Nitrite Test strip Ql (U)Ord ered By: Herb Dominique on 02-27-2024 Nitrite Ql (U) Negative Negative [facility] No Panel Informationon 02-26 Urine Leukocytes Negatve [facility] Urine Non-Hemolyzed Blood Negative [facility] Protein Test strip Ql (U)Ord ered By: Herb Dominique on 02-27-2024 Protein Ql (U) 15 mg/dl High Negative [facility] Urgent Care Visit Reporton 1 04-29-2023 Urgent Care Visit Report [facility] [address] , [address] [place] [address] OFFICE VISIT Date of Service: 02/27/24 MR#: [id number] Acct: [id number] Name: CLARISA MENDES Rep #: [id number] : 1970 Provider: PRINCESS Claudio Age/Sex: 53/F Location: [facility] Status: Signed Intake Vital Signs 01/29/24 15:44 02/27/24 10:33 Height 5 ft 2 in Weight: 184 lb 4 oz BMI 33.7 BP 136/87 H 112/70 Blood Pressure Location Lt brachial Position Sitting Respiration 16 Pulse 63 Pulse Source NIBP Temp 97.8 F Temp Source Oral Pulse Oximetry (%) 100 Oxygen Delivery Method room air Intake Visit Reasons: CONCERN FOR SINUS INFECTION / UTI Chief Complaint: face pain, chills/sweats, ST, ear pain, flank pain 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: No Is patient in pain?: Yes Allergies hydromorphone HCl (From Dilaudid) Allergy (Verified 02/27/24 10:34) Chest tightness prednisone Allergy (Verified 02/27/24 10:34) Itching warfarin sodium (From Coumadin) Allergy (Verified 02/27/24 10:34) Chest tightness milnacipran HCl (From Savella) Adverse Reaction (Verified 02/27/24 10:34) Other pregabalin (From Lyrica) Adverse Reaction (Verified 02/27/24 10:34) Rash rivaroxaban (From Xarelto) Adverse Reaction (Verified 02/27/24 10:34) Nausea Is last menstrual period known: No Post menopausal: No Patient : No Have you fallen in the past year?: No Nurse's Note: face pain, chills/sweats, ST, ear pain x approx 2 weeks. also c/o right flank pain into right abd and decreased urinary output per pt x 3 days, concern for UTI PFSH Medical History (Updated 02/27/24 @ 12:09 by Herb SÁNCHEZ, PA) Mid back pain on right side Contact with or exposure to other viral diseases Acute sinusitis, unspecified COVID-19 Hx of blood clots Fibromyalgia Fatty liver Restless legs Difficulty swallowing History of hiatal hernia History of IBS Gastric reflux Non-smoker Asthma History of echocardiogram History of stress test Cardiology follow-up encounter uterine ablation r middle trigger finger release Delivery with history of Vitamin D deficiency Trigger ring finger of right hand Trigger middle finger of right hand Temporomandibular joint disorder Seizures Right hand paresthesia Rheumatoid arthritis PTSD (post-traumatic stress disorder) Patellofemoral disorder Impaired fasting glucose HTN (hypertension) Hypercholesteremia HSV infection Hayfever GERD (gastroesophageal reflux disease) Fibromyalgia muscle pain Endometriosis DVT (deep venous thrombosis) Diaphragmatic hernia without mention of obstruction or gangrene Depressive disorder Colon polyps Carpal tunnel syndrome Anxiety Calcaneal spur Aortic aneurysm Surgical History History of weight loss surgery Hx of tonsillectomy History of nasal surgery S/P foot surgery, left History of bilateral breast reduction surgery History of tubal ligation History of bilateral salpingectomy History of laparoscopic-assisted vaginal hysterectomy History of laparoscopic cholecystectomy History of esophagogastroduodenoscop y (EGD) Hx of colonoscopy History of carpal tunnel release Family History Mother Hypertension Hyperlipidemia alcohol/drug addiction Allergies Father alcohol/drug addiction Sister Thyroid disorder Fibromyalgia Blindness Grandmother Emphysema lung Heart disease Grandfather Emphysema lung Brother alcohol/drug addiction Social History 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 Additionally, she also c/o right flank pain into right abd along with decreased urinary output per pt x over the last 3 days. No complaints of chest pressure or shortness of breath or dyspnea on exertion. No nfgu-mjh-kbhycph products taken to assist. PMH NC. No other associated symptoms and no other alleviating/aggravating factors. ROS Const Constitutional: No other (As above) Exam Const General: cooperative, healthy appearing and no acute distress Orientation: alert and awake HENTX Head: normal to inspection Ears: hearing grossly normal bilaterally, external ears normal, TM's normal bilaterally and EA (more content not included)... Normal [facility] Urinalysis, Completeon 02-26 YEAST 1+ /hpf Normal None Seen [facility] Comment on above: Order Comment: MELISA CTOR TO SPECIFY Performed By: #### L 400.0001 ####[facility] [address] [place], [address] RBC 5-10 SEEN Normal 0-5 [facility] Comment on above: Order Comment: MELISA CTOR TO SPECIFY Performed By: #### L 400.0001 ####[facility] [address] [place], [address] WBC 0-5 SEEN Normal 0-5 [facility] Comment on above: Order Comment: MELISA CTOR TO SPECIFY Performed By: #### L 400.0001 ####[facility] [address] [place], [address] BACTERIA 1+ /hpf Normal None Seen [facility] Comment on above: Order Comment: MELISA CTOR TO SPECIFY Performed By: #### L 400.0001 ####[facility] [address] [place], [address] CA OX [place]YST[place] 2+ /hpf Normal [facility] Comment on above: Order Comment: MELISA CTOR TO SPECIFY Performed By: #### L 400.0001 ####[facility] [address] [place], [address] EPI,SQUAMOUS 0-5 SEEN Normal 5-10 [facility] Comment on above: Order Comment: MELISA CTOR TO SPECIFY Performed By: #### L 400.0001 ####[facility] [address] [place], [address] Mucus Ql (Urine sed) 0 SEEN Normal [facility] Comment on above: Order Comment: MELISA CTOR TO SPECIFY Performed By: #### L 400.0001 ####[facility] [address] [place], [address] Urine blood detectionOrdered By: Herb Dominiuqe on 02-27-2024 Urine Occult Blood Negative Negative [facility] Urine clarityOrdered By: Carlos Dominique on 02-27-2024 Clarity (U) Sl. Cloudy Clear [facility] Urine color determinationOrd ered By: Herb Dominique on 02-27-2024 Color (U) Yellow Yellow [facility] Urine cultureOrdered By: Carlos Dominique on 02-27-2024 Bacteria identified Cx Nom (U) Positive Abnormal [facility] Urine leukocyte esterase det ection by dipstickOrdered By: Herb Dominique on 02-27-2024 Leukocyte esterase Test strip Ql (U) Negative Negative [facility] Urine pHOrdered By: Herb jenkins on 02-27-2024 pH (U) 6.0 [pH] 5.0 - 8.0 [facility] Urine sediment bacteria coun t by microscopy (number/high power field)Ordered By: Herb Dominique on 02-27-2024 Bacteria LM.HPF (Urine sed) [#/Area] 1 /[HPF] None Seen [facility] Urine specific gravity measu rementOrdered By: Herb Dominique on 02-27-2024 Specific gravity (U) [Rel density] 1.025 1.002-1.03 0 [facility] Urobilinogen Ql (U)Ordered B y: Herb Dominique on 02-27-2024 Urobilinogen (U) [Mass/Vol] 1 mg/dL High Normal [facility] White blood cell countOrdere d By: Herb Dominique on 02-27-2024 Urine WBC 0-5 SEEN /hpf 0-5 [facility] Yeast LM.HPF (Urine sed) [#/ Area]Ordered By: Herb Dominique on 02-27-2024 Urine Yeast 1+ /hpf None Seen [facility] Breast Limited Unilateralon 01-31-2024 Breast Limited Unilateral [facility] [address] [place] [address] Breast Limited Unilateral MR#: [id number] Acct: [id number] Name: CLARISA MENDES Rep #: [id number] : 1970 F 53 From: Colby preston MD PCP: Dr. Tang Olguin, DO Status: REG CLI Study: Breast Limited Unilateral Date of Exam: Exam# [id number] Ordering Dr: Cortney Paul CNM [id number] STUDY: ULTRASOUND BREAST - RIGHT REASON FOR EXAM: Female, 53 years old. Palpable lump in the right breast. TECHNIQUE: Axial and longitudinal images of the RIGHT breast were performed with a high resolution ultrasound transducer. # OF IMAGES: 22 COMPARISON: Comparison is made with prior mammogram done earlier today as well as prior sonogram dated May 05, 2022. FINDINGS: RIGHT Breast: The inferior lateral aspect of the right breast was examined. There is a 1 cm x 0.4 cm x 0.3 cm well-defined hypoechoic nodule with fatty hilum suggestive of benign lymph node at the 8:00 position of the breast at 8 cm from the nipple. US/Breast Limited Unilateral IMPRESSION: Findings suggestive of a 1 cm x 0.4 cm x 0.3 cm well-defined hypoechoic nodule suggestive of a lymph node at the 8 o''clock position of the breast at 8 cm from the nipple. ASSESSMENT CATEGORY: BIRADS Category 2: Benign. A letter regarding these results will be sent to the patient by the facility within 30 days. Electronically Signed: Colby Cruz MD at 13:43 EST , CC: PARK Paul; Dr. Tang Olguin DO Head Cook: Signed Normal [facility] DIAG MAMM W/CAD, BILATon DIAG MAMM W/CAD, [facility] [address] [place] [address] DIAG MAMM W/CAD, BILAT MR#: [id number] Acct: [id number] Name: CLARISA MENDES Rep #: [id number] : 1970 F 53 From: Colby preston MD PCP: Dr. Tang Olguin, DO Status: [facility] CLI Study: DIAG MAMM W/CAD, BILAT Date of Exam: 01/31/24 Exam# [id number] Ordering Dr: Cortney Paul [facility] [id number] MAMMOGRAPHY - BILATERAL DIAGNOSTIC REASON FOR EXAM: Female, 53 years old. Right lateral breast lump. Remote bilateral breast reduction surgery. PERTINENT HISTORY: Non-contributory. TECHNIQUE: Digital bilateral breast sandy (3D mammographic acquisition) in the CC and MLO projections. 2-D mediolateral oblique (MLO) and craniocaudad (CC) views of both breasts were obtained. CAD: Full Field Digital Mammography with Computer Added Detection was performed. COMPARISON: Comparison is made with prior study dated May 05, 2022 and March 23, 2021. FINDINGS: Breast Composition: There are scattered areas of fibroglandular density. There are no dominant masses or suspicious calcifications. No other significant abnormalities are identified. There has been no significant change since the prior study. BI/DIAG MAMM W/CAD, BILAT IMPRESSION: Stable bilateral diagnostic mammogram. With the patient''s history of a palpable lump in the right breast, correlation with ultrasound recommended. ASSESSMENT CATEGORY: BIRADS Category 0: Incomplete. Need additional imaging evaluation. A letter regarding these results will be sent to the patient by the facility within 30 days. Approximately 10% of breast cancers are not detected by mammography. A normal mammogram should not delay biopsy of a clinically suspicious abnormality. Electronically Signed: Colby Cruz MD at 10:51 EST , CC: PARK Paul; Dr. Tang Olguin DO Head Cook: Signed Normal [facility] Refuse Driver Office Visit Reporton 01-29-2024 Refuse Driver Office Visit Report [facility] [address], [address] [place] [address] OFFICE VISIT Date of Service: 01/29/24 MR#: [id number] Acct: [id number] Name: CLARISA MENDES Rep #: [id number] : 1970 Provider: Dr. Mary Harvey DO Age/Sex: 53/F Location: [facility] Status: Signed Intake Vital Signs 01/21/24 08:44 01/23/24 10:43 01/29/24 15:44 Height 5 ft 2 in 5 ft 2 in 5 ft 2 in Weight: 185 lb 6 oz 184 lb 4 oz BMI 33.9 33.7 BP 117/74 136/87 H Intake Visit Reasons: fu lichen sclerosis 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: No Is patient in pain?: No Allergies hydromorphone HCl (From Dilaudid) Allergy (Verified 01/29/24 15:47) Chest tightness prednisone Allergy (Verified 01/29/24 15:47) Itching warfarin sodium (From Coumadin) Allergy (Verified 01/29/24 15:47) Chest tightness milnacipran HCl (From Savella) Adverse Reaction (Verified 01/29/24 15:47) Other pregabalin (From Lyrica) Adverse Reaction (Verified 01/29/24 15:47) Rash rivaroxaban (From Xarelto) Adverse Reaction (Verified 01/29/24 15:47) Nausea Medications ???Medication ???Instructions ???Recorded ???Confirmed ???Type cetirizine 10 mg capsule (Zyrtec) 10 mg PO QHS allergies 01/22/17 01/29/24 History albuterol sulfate 90 mcg/actuation 2 puff inhalation Q4H PRN PRN 10/30/19 01/29/24 History aerosol inhaler Wheezing ondansetron 4 mg disintegrating 4 mg PO Q8H PRN PRN Nausea #10 tabs 12/11/22 01/29/24 Rx tablet escitalopram oxalate 5 mg tablet 5 mg PO DAILY 04/20/23 01/29/24 History pantoprazole 40 mg tablet,delayed 40 mg PO DAILY 04/20/23 01/29/24 History release valacyclovir 500 mg tablet 500 mg PO DAILY 04/20/23 01/29/24 History pseudoephedrine 60 mg-DM 15 1 tab PO Q4-6H PRN cold symptoms 05/03/23 01/29/24 Rx mg-guaifenesin 400 mg tablet #20 tabs (Capmist DM) ropinirole 0.25 mg tablet 0.25 mg PO DAILY 10/22/23 01/29/24 History multivitamin with minerals-folic tab PO 11/22/23 01/29/24 History acid 200 mcg chewable tablet (Women's Multivitamin Gummies) clobetasol 0.05 % topical ointment 1 applic topical .COMPLEX #60 grams 01/29/24 01/29/24 Rx estradiol 0.01% (0.1 mg/gram) 1 appful vaginal 2XW #42.5 grams 01/29/24 01/29/24 Rx vaginal cream Post menopausal: No Patient : No PFSH Medical History COVID-19 Hx of blood clots Fibromyalgia Fatty liver Restless legs Difficulty swallowing History of hiatal hernia History of IBS Gastric reflux Non-smoker Asthma History of echocardiogram History of stress test Cardiology follow-up encounter uterine ablation r middle trigger finger release Delivery with history of Vitamin D deficiency Trigger ring finger of right hand Trigger middle finger of right hand Temporomandibular joint disorder Seizures Right hand paresthesia Rheumatoid arthritis PTSD (post-traumatic stress disorder) Patellofemoral disorder Impaired fasting glucose HTN (hypertension) Hypercholesteremia HSV infection Hayfever GERD (gastroesophageal reflux disease) Fibromyalgia muscle pain Endometriosis DVT (deep venous thrombosis) Diaphragmatic hernia without mention of obstruction or gangrene Depressive disorder Colon polyps Carpal tunnel syndrome Anxiety Calcaneal spur Aortic aneurysm Surgical History History of weight loss surgery Hx of tonsillectomy History of nasal surgery S/P foot surgery, left History of bilateral breast reduction surgery History of tubal ligation History of bilateral salpingectomy History of laparoscopic-assisted vaginal hysterectomy History of laparoscopic cholecystectomy History of esophagogastroduodenoscop y (EGD) Hx of colonoscopy History of carpal tunnel release Family History Mother Hypertension Hyperlipidemia alcohol/drug addiction Allergies Father alcohol/drug addiction Sister Thyroid disorder Fibromyalgia Blindness Grandmother Emphysema lung Heart disease Grandfather Emphysema lung Brother alcohol/drug addiction Social History 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 She has been treated by Debbie Ying. Patient states that she used the steroid cream for the prescribed amount of time but when she stopped, the discomfort returned. She complains of pain with intercourse and (more content not included)... Normal [facility] Refuse Driver Office Visit Reporton 01-23-2024 Refuse Driver Office Visit Report [facility]'s [address], [address] [place] [address] OFFICE VISIT Date of Service: 01/23/24 MR#: [id number] Acct: [id number] Name: CLARISA MENDES Rep #: [id number] : 1970 Provider: PARK Allison ams Age/Sex: 53/F Location: [facility] Status: Signed Intake Vital Signs 11/22/23 10:11 01/21/24 08:44 01/23/24 10:43 Height 5 ft 2 in 5 ft 2 in 5 ft 2 in Weight: 185 lb 6 oz BMI 33.9 BP 117/74 Intake Visit Reasons: breast lump 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: No Is patient in pain?: Yes (right breast pump painful when patient messes with it) Feel stressed/tense/nervous/an xious/difficulty sleeping: not at all Allergies hydromorphone HCl (From Dilaudid) Allergy (Verified 01/23/24 10:46) Chest tightness prednisone Allergy (Verified 01/23/24 10:46) Itching warfarin sodium (From Coumadin) Allergy (Verified 01/23/24 10:46) Chest tightness milnacipran HCl (From Savella) Adverse Reaction (Verified 01/23/24 10:46) Other pregabalin (From Lyrica) Adverse Reaction (Verified 01/23/24 10:46) Rash rivaroxaban (From Xarelto) Adverse Reaction (Verified 01/23/24 10:46) Nausea Medications ???Medication ???Instructions ???Recorded ???Confirmed ???Type cetirizine 10 mg capsule (Zyrtec) 10 mg PO QHS allergies 01/22/17 01/23/24 History albuterol sulfate 90 mcg/actuation 2 puff inhalation Q4H PRN PRN 10/30/19 01/23/24 History aerosol inhaler Wheezing ondansetron 4 mg disintegrating 4 mg PO Q8H PRN PRN Nausea #10 tabs 12/11/22 01/23/24 Rx tablet escitalopram oxalate 5 mg tablet 5 mg PO DAILY 04/20/23 01/23/24 History pantoprazole 40 mg tablet,delayed 40 mg PO DAILY 04/20/23 01/23/24 History release valacyclovir 500 mg tablet 500 mg PO DAILY 04/20/23 01/23/24 History pseudoephedrine 60 mg-DM 15 1 tab PO Q4-6H PRN cold symptoms 05/03/23 01/23/24 Rx mg-guaifenesin 400 mg tablet #20 tabs (Capmist DM) clobetasol 0.05 % topical ointment 1 applic topical .COMPLEX #15 grams 10/22/23 01/23/24 Rx ropinirole 0.25 mg tablet 0.25 mg PO DAILY 10/22/23 01/23/24 History multivitamin with minerals-folic tab PO 11/22/23 01/23/24 History acid 200 mcg chewable tablet (Women's Multivitamin Gummies) benzonatate 200 mg capsule 200 mg PO TID PRN cough #20 caps 01/07/24 01/23/24 Rx levofloxacin 500 mg tablet 500 mg PO Q24H #7 tabs 01/07/24 01/23/24 Rx Is last menstrual period known: No Patient : No : No PFSH Medical History COVID-19 Hx of blood clots Fibromyalgia Fatty liver Restless legs Difficulty swallowing History of hiatal hernia History of IBS Gastric reflux Non-smoker Asthma History of echocardiogram History of stress test Cardiology follow-up encounter uterine ablation r middle trigger finger release Delivery with history of Vitamin D deficiency Trigger ring finger of right hand Trigger middle finger of right hand Temporomandibular joint disorder Seizures Right hand paresthesia Rheumatoid arthritis PTSD (post-traumatic stress disorder) Patellofemoral disorder Impaired fasting glucose HTN (hypertension) Hypercholesteremia HSV infection Hayfever GERD (gastroesophageal reflux disease) Fibromyalgia muscle pain Endometriosis DVT (deep venous thrombosis) Diaphragmatic hernia without mention of obstruction or gangrene Depressive disorder Colon polyps Carpal tunnel syndrome Anxiety Calcaneal spur Aortic aneurysm Surgical History History of weight loss surgery Hx of tonsillectomy History of nasal surgery S/P foot surgery, left History of bilateral breast reduction surgery History of tubal ligation History of bilateral salpingectomy History of laparoscopic-assisted vaginal hysterectomy History of laparoscopic cholecystectomy History of esophagogastroduodenoscop y (EGD) Hx of colonoscopy History of carpal tunnel release Family History Mother Hypertension Hyperlipidemia alcohol/drug addiction Allergies Father alcohol/drug addiction Sister Thyroid disorder Fibromyalgia Blindness Grandmother Emphysema lung Heart disease Grandfather Emphysema lung Brother alcohol/drug addiction Social History 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 Fixed and tender at times. (more content not included)... [facility] ) ----- CLARISA MENDES ([id number]) 1970 F NFR Date Time Provider Department 01/07/24 10:15 AM STEFFI ALANIS [facility] During your visit today, we recorded the following information about you: Temperature Pulse Respiration Blood pressure 97 degrees 76/minute 18/minute 103/64 Weight 83.4 kg Steffi Alanis PA 01/07/2024 10:32 AM Signed 53-year-old female presents for chest heaviness, chest pain, nasal congestion. Patient states that she started getting cold about a week ago with nasal congestion. She has had a very mild cough. She states this morning when she got up she felt like something was sitting on her chest. She states her chest still feels heavy. No radiation of pain. She does feel short of breath. History of asthma, but states she does not feel like she is wheezing. Lungs clear on exam. Pulse ox 97% on room air. At this time due to chest heaviness/chest pain, I did recommend full evaluation in the emergency room. Patient would like to take herself to the ER. She will go to ER now. Allergies As of Date: 01/07/2024 Noted Allergy Reaction MICONAZOLE 01/13/2004 9 - Itching MILNACIPRAN 07/19/2011 1 - Mental Status Change 14 - Other: See Comments Comments: Duson weird. RIVAROXABAN 12/02/2014 14 - Other: See [...] PREDNISONE 12/27/2021 9 - Itching Date Reviewed: 12/05/2023 Reviewed by: Adriana Bernal MA - Fully Assessed Reason for Visit: Cough [28] Cmt: Cough, ST, bodyaches, sinus, LONG and chest feels tight x 1 week Primary Visit Diagnosis:Chest pain, unspecified type [R07.9] Prescriptions as of 01/07/2024 - escitalopram oxalate (LEXAPRO) 5 mg tablet [...] at bedtime as needed (restless legs). - blood sugar diagnostic (BLOOD GLUCOSE TEST) [...] once daily. Rinse mouth after use. - fluticasone (FLOVENT HFA) 110 mcg/actuation inhaler [...] 8 hours as needed for nausea/vomiting. - nfbrps-etgqhrov-yhgwxea (CREON) 36,000-114,000- 180,000 unit delayed release capsule [...] for nebulizer Problem List As Of Date 01/07/2024 Noted Resolved HYPERTROPHY OF BREAST [N62] 01/13/2004 05/18/2006 Endometriosis [617] 04/22/2014 Anxiety state [F41.1] Moderate single current episode of major depres* TM JOINT DISORDER, UNSPEC [M26.609] 05/18/2006 Unspecified Myalgia and Myositis [DKH2821] 11/12/2009 Other and unspecified hyperlipidemia [E78.5] 03/30/2005 Personal history of colonic polyps [Z86.0100] 03/15/2006 07/01/2010 PAIN ABDOMEN( Right Upper Quadrant) [R10.11] 04/20/2006 05/18/2006 Hemorrhage of rectum and anus [K62.5] 03/17/2015 Abdominal Pain, Epigastric [R10.13] 11/12/2009 BILIARY DYSKINESIA [K82.8] 04/25/2006 03/17/2015 Obesity [E66.9] 05/18/2006 Other Malaise and Fatigue [R53.81, R53.83] 04/22/2007 11/12/2009 Acute bronchitis [J20.9] 07/13/2008 Contact Dermatitis and Other Eczema, due to Uns*05/ (more content not included)... Normal [facility] Chest PA and Lateralon 01-06 Chest PA and Lateral [facility] Services [address] [place], [place] [id number] Chest PA and Lateral MR#: [id number] Acct: [id number] Name: CLARISA MENDES Rep #: [id number] : 1970 F 53 From: Colby preston MD PCP: Dr. Tang Olguin DO Status: REG CLI Study: Chest PA and Lateral Date of Exam: 01/07/24 Exam# [id number] Ordering Dr: Herb Dominique [id number] STUDY: X-RAY CHEST REASON FOR EXAM: Female, 53 years old. Cough and headache. Shortness of breath. TECHNIQUE: PA and lateral views of the chest. COMPARISON: Comparison is made with prior study dated December 11, 2022. FINDINGS: The lungs are clear and expanded. Scattered calcified granulomas. There is no demonstrated pleural abnormality. Normal size heart. Normal mediastinum and sagar. Normal visualized pulmonary arteries. Normal visualized aortic arch and descending thoracic aorta. Normal visualized thoracic spine. Normal visualized ribs, clavicles, and shoulders. Surgical clips are seen in the epigastric region. RAD/Chest PA and Lateral IMPRESSION: Stable examination. No acute abnormality is seen. Electronically Signed: Colby Cruz MD at 12:42 EDT Reading Location ID and State: [facility] / [place] , Service support , CC: Dr. Tang Olguin, ; PRINCESS Claudio Head Cook: Signed Normal [facility] Urgent Care Visit Reporton 1 Urgent Care Visit Report [facility] [address], [address] [place] [address] OFFICE VISIT Date of Service: 01/07/24 MR#: [id number] Acct: [id number] Name: CLARISA MENDES Rep #: [id number] : 1970 Provider: PRINCESS Claudio Age/Sex: 53/F Location: [facility] Status: Signed Intake Vital Signs 11/22/23 10:11 01/07/24 10:51 Height 5 ft 2 in BP 128/78 H Blood Pressure Location Lt brachial Position Sitting Respiration 16 Pulse 63 Pulse Source NIBP Temp 97.9 F Temp Source Oral Pulse Oximetry (%) 98 Oxygen Delivery Method room air Intake Visit Reasons: ST/COUGH/SINUS PRESSURE/CONGESTION/LONG/BA Chief Complaint: cough, LONG, BA, ST, ear pain, eye drainage 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: No Is patient in pain?: No Allergies hydromorphone HCl (From Dilaudid) Allergy (Verified 01/07/24 10:52) Chest tightness prednisone Allergy (Verified 01/07/24 10:52) Itching warfarin sodium (From Coumadin) Allergy (Verified 01/07/24 10:52) Chest tightness milnacipran HCl (From Savella) Adverse Reaction (Verified 01/07/24 10:52) Other pregabalin (From Lyrica) Adverse Reaction (Verified 01/07/24 10:52) Rash rivaroxaban (From Xarelto) Adverse Reaction (Verified 01/07/24 10:52) Nausea Is last menstrual period known: No Post menopausal: Yes Patient : No Have you fallen in the past year?: No Nurse's Note: cough, LONG, BA, ST, ear pain, eye drainage x 1 week. 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 [facility] Medical History COVID-19 Hx of blood clots Fibromyalgia Fatty liver Restless legs Difficulty swallowing History of hiatal hernia History of IBS Gastric reflux Non-smoker Asthma History of echocardiogram History of stress test Cardiology follow-up encounter uterine ablation r middle trigger finger release Delivery with history of Vitamin D deficiency Trigger ring finger of right hand Trigger middle finger of right hand Temporomandibular joint disorder Seizures Right hand paresthesia Rheumatoid arthritis PTSD (post-traumatic stress disorder) Patellofemoral disorder Impaired fasting glucose HTN (hypertension) Hypercholesteremia HSV infection Hayfever GERD (gastroesophageal reflux disease) Fibromyalgia muscle pain Endometriosis DVT (deep venous thrombosis) Diaphragmatic hernia without mention of obstruction or gangrene Depressive disorder Colon polyps Carpal tunnel syndrome Anxiety Calcaneal spur Aortic aneurysm Surgical History History of weight loss surgery Hx of tonsillectomy History of nasal surgery S/P foot surgery, left History of bilateral breast reduction surgery History of tubal ligation History of bilateral salpingectomy History of laparoscopic-assisted vaginal hysterectomy History of laparoscopic cholecystectomy History of esophagogastroduodenoscop y (EGD) Hx of colonoscopy History of carpal tunnel release Family History Mother Hypertension Hyperlipidemia alcohol/drug addiction Allergies Father alcohol/drug addiction Sister Thyroid disorder Fibromyalgia Blindness Grandmother Emphysema lung Heart disease Grandfather Emphysema lung Brother alcohol/drug addiction Social History 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 She notes no complaints of chest pain or shortness of breath or dyspnea on exertion -though describes the chest, fullness with persistent coughing as she describes. Several close contacts recently dx???d w/ similar URI complaints as well as multiple kids with pneumonia. Patient requesting antibiotic but declining Augmentin as she says this causes her severe nausea. No ngcn-aoj-sjnjmpz products taken to assist. She notes being a non-smoker. No other associated symptoms and no other alleviating/aggravating factors. ROS Const Constitutional: No other (As above) Exam Const General: cooperative, healthy appearing and no acute distress Orientation: alert, awake and oriented x3 HENMT Head: normal to inspection Ears: hearing grossly normal bilaterally, external ears normal, TM's nor (more content not included)... Normal [facility] ALLIED HEALTHon 12-28-2023 ALLIED HEALTH HNO ID: [id number] Author: SIERRA MERRILL TECHNOLOGIST Service: ? Author Type: Technologist Type: Allied Health Filed: 12/28/2023 17:48 Note Text: Radiology Service Progress Note PATIENT NAME: Clarisa Mendes DATE OF SERVICE: December 28, 2023 [...] PATIENT PRESENTS WITH AN IMPLANTABLE OR ATTACHED IT INTEGRATION ARCHITECT: No RADIOLOGY DEPARTMENT: Ultrasound PERIPHERAL IV DATA: Not applicable SIGNED BY: TECHNOLOGIST Eleni December 28, 2023 5:47 PM [facility] ED NOTEon 12-28-2023 ED NOTE HNO ID: [id number] Author: BENSON ARROYO RN Service: Emergency Medicine [...] [facility] ED NOTE HNO ID: [id number] Author: KALI RAMOS RN Service: Emergency Medicine Author Type: Registered Nurse Type: ED Notes Filed: 12/28/2023 19:36 Note Text: Patient discharge instructions given to patient. Patient educated on discharge instructions. Patient denied having questions at this time regarding discharge instructions. Patient discharged home at this time. [facility] ED NOTE HNO ID: [id number] Author: KALI RAMOS RN Service: Emergency Medicine Author Type: Registered Nurse Type: ED Notes Filed: 12/28/2023 19:15 Note Text: Change of shift report received from Yumkio Garcia RN. I assumed patient care at this time. [facility] ED NOTE HNO ID: [id number] Author: YUMIKO ZAMUDIO RN Service: Nursing Author Type: Registered Nurse Type: ED Notes Filed: 12/28/2023 17:32 Note Text: US at bedside [facility] ED NOTE HNO ID: [id number] Author: YUMIKO ZAMUDIO RN Service: Nursing Author Type: Registered Nurse Type: ED Notes Filed: 12/28/2023 17:19 Note Text: Pt denies injury [facility] ED NOTE HNO ID: [id number] Author: KAIN JIMÉNEZ RN Service: Emergency Medicine Author Type: Registered Nurse Type: ED Notes Filed: 12/28/2023 17:02 Note Text: Pt reports pain/burning sensation to L left lower leg. Patient is alert and oriented ambulates to room 4 [facility] ED PROV NOTEon 12-28-2023 ED PROV NOTE HNO ID: [id number] Author: CIERRA EMMANUEL MD Service: Emergency Medicine Author Type: Physician Type: ED Provider Notes Filed: 12/28/2023 21:38 Note Text: ED Provider Note Patient Name: Clarisa Mendes : 1970 SERVICE DATE: 12/28/23 History [...] chronic gastritis EGD TRANSORAL BIOPSY SINGLE/MULTIPLE 05/04/2010 ESOPHAGOGASTRODUODENOSCOP Y TRANSORAL DIAGNOSTIC 11/23/2017 EGD ESOPHAGOGASTRODUODENOSCOP Y TRANSORAL DIAGNOSTIC 05/01/2019 EGD GASTRIC BYPASS HX [...] Milnacipran Mental Status Change, Other: See Comments Duson weird. Rivaroxaban Other: See Comments, GI Upset [...] and in (more content not included)... [facility] US DVT LOWER LTon 12-28-2023 US DVT [...] IMAGED SEGMENTS OF THE LEFT LOWER EXTREMITY. Head Cook: PSCB Transcribe Date/Time: Dec 28 2023 7:01P Dictated by : GELY WILSON MD This examination was interpreted and the report reviewed and electronically signed by: GELY WILSON MD on Dec 28 2023 7:02PM EST [id number] [facility] CNOVon 12-05-2023 CNOV Office Visit (UCWSTR ) ----- CLARISA MENDES ([id number]) 1970 F NFR Date Time Provider Department 12/05/23 10:30 AM FITO TATE [facility] During your visit today, we recorded the following information about you: Temperature Pulse Respiration Blood pressure 96.9 degrees 66/minute 16/minute 110/72 Weight 83.2 kg Fito Tate MD 12/05/2023 10:52 AM Signed Patient [...] capsule by mouth twice daily. Open capsules gstmcn-ijbuilfu-yrqzsnk (CREON) 36,000-114,000- 180,000 unit delayed release capsule Take 3 capsules by mouth three times daily with meals. No current facility-administered medications for this visit. ALLERGIES: ALLERGIES Allergen Reactions Miconazole Itching Milnacipran Mental Status Change, Other: See Comments Duson weird. Rivaroxaban Other: See Comments, GI Upset [...] and NSAID contraindication from bypass surgery. Continue jgbh-ncv-dacywuf acetaminophen. Discussed options for further treatment to include consult to specialist focusing on TMJ pain: dentist, oral maxillofacial surgeon, physical therapy. Fito Tate MD Allergies As of Date: 12/05/2023 Noted Allergy Reaction MICONAZOLE 01/13/2004 9 - Itching MILNACIPRAN 07/19/2011 1 - Mental Status Change 14 - Other: See Comments Comments: Duson weird. RIVAROXABAN 12/02/2014 14 - Other: See Comments 8 - GI Upset Comments: Taste of blood in mouth and muscle aches MORPHINE 03/09/2009 12 - Shortness of Breath A (more content not included)... Normal [facility] Refuse Driver Office Visit Reporton 11-22-2023 Refuse Driver Office Visit Report [facility]'s [address], [address] [place] [address] OFFICE VISIT Date of Service: 11/22/23 MR#: [id number] Acct: [id number] Name: CLARISA MENDES Rep #: [id number] : 1970 Provider: LEE rojas Age/Sex: 53/F Location: [facility] Status: Signed Intake Vital Signs 10/22/23 11:32 11/22/23 10:05 11/22/23 10:11 Height 5 ft 2 in 5 ft 2 in 5 ft 2 in Weight: 186 lb 6 oz BMI 34.0 BP 116/64 Intake Visit Reasons: MED CHECK Chief Complaint: Med check 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: No Is patient in pain?: No Allergies hydromorphone HCl (From Dilaudid) Allergy (Verified 11/22/23 10:04) Chest tightness prednisone Allergy (Verified 11/22/23 10:04) Itching warfarin sodium (From Coumadin) Allergy (Verified 11/22/23 10:04) Chest tightness milnacipran HCl (From Savella) Adverse Reaction (Verified 11/22/23 10:04) Other pregabalin (From Lyrica) Adverse Reaction (Verified 11/22/23 10:04) Rash rivaroxaban (From Xarelto) Adverse Reaction (Verified 11/22/23 10:04) Nausea Medications ???Medication ???Instructions ???Recorded ???Confirmed ???Type cetirizine 10 mg capsule (Zyrtec) 10 mg PO QHS allergies 01/22/17 11/22/23 History albuterol sulfate 90 mcg/actuation 2 puff inhalation Q4H PRN PRN 10/30/19 11/22/23 History aerosol inhaler Wheezing ondansetron 4 mg disintegrating 4 mg PO Q8H PRN PRN Nausea #10 tabs 12/11/22 11/22/23 Rx tablet escitalopram oxalate 5 mg tablet 5 mg PO DAILY 04/20/23 11/22/23 History pantoprazole 40 mg tablet,delayed 40 mg PO DAILY 04/20/23 11/22/23 History release valacyclovir 500 mg tablet 500 mg PO DAILY 04/20/23 11/22/23 History pseudoephedrine 60 mg-DM 15 1 tab PO Q4-6H PRN cold symptoms 05/03/23 11/22/23 Rx mg-guaifenesin 400 mg tablet #20 tabs (Capmist DM) clobetasol 0.05 % topical ointment 1 applic topical .COMPLEX #15 grams 10/22/23 11/22/23 Rx ropinirole 0.25 mg tablet 0.25 mg PO DAILY 10/22/23 11/22/23 History multivitamin with minerals-folic tab PO 11/22/23 11/22/23 History acid 200 mcg chewable tablet (Women's Multivitamin Gummies) Is last menstrual period known: No Post menopausal: Yes Patient : No : No PFSH Medical History COVID-19 Hx of blood clots Fibromyalgia Fatty liver Restless legs Difficulty swallowing History of hiatal hernia History of IBS Gastric reflux Non-smoker Asthma History of echocardiogram History of stress test Cardiology follow-up encounter uterine ablation r middle trigger finger release Delivery with history of Vitamin D deficiency Trigger ring finger of right hand Trigger middle finger of right hand Temporomandibular joint disorder Seizures Right hand paresthesia Rheumatoid arthritis PTSD (post-traumatic stress disorder) Patellofemoral disorder Impaired fasting glucose HTN (hypertension) Hypercholesteremia HSV infection Hayfever GERD (gastroesophageal reflux disease) Fibromyalgia muscle pain Endometriosis DVT (deep venous thrombosis) Diaphragmatic hernia without mention of obstruction or gangrene Depressive disorder Colon polyps Carpal tunnel syndrome Anxiety Calcaneal spur Aortic aneurysm Surgical History History of weight loss surgery Hx of tonsillectomy History of nasal surgery S/P foot surgery, left History of bilateral breast reduction surgery History of tubal ligation History of bilateral salpingectomy History of laparoscopic-assisted vaginal hysterectomy History of laparoscopic cholecystectomy History of esophagogastroduodenoscop y (EGD) Hx of colonoscopy History of carpal tunnel release Family History Mother Hypertension Hyperlipidemia alcohol/drug addiction Allergies Father alcohol/drug addiction Sister Thyroid disorder Fibromyalgia Blindness Grandmother Emphysema lung Heart disease Grandfather Emphysema lung Brother alcohol/drug addiction Social History 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 States had resolution of symptoms when using clobetesol twice a day but not that she is using once a day, she is again having mild itching. She does state that her hot flashes resolved with use of Gruns multivitamin. History 3 Elective abortions Hx (more content not included)... Normal [facility] Refuse Driver Office Visit Reporton 10-22-2023 Refuse Driver Office Visit Report [facility] [address] [place] [address] OFFICE VISIT Date of Service: 10/22/23 MR#: [id number] Acct: [id number] Name: CLARISA MENDES Rep #: [id number] : 1970 Provider: LEE rojas Age/Sex: 53/F Location: [facility] [place] Status: Signed Intake Vital Signs 05/29/23 10:38 10/22/23 11:28 10/22/23 11:32 Height 5 ft 2 in 5 ft 2 in 5 ft 2 in Weight: 182 lb BMI 33.3 BP 117/85 H Intake Visit Reasons: itching with any contact, hot flashes constantly, labial itching, hot flashes 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: No Allergies hydromorphone HCl (From Dilaudid) Allergy (Verified 10/22/23 11:31) Chest tightness prednisone Allergy (Verified 10/22/23 11:31) Itching warfarin sodium (From Coumadin) Allergy (Verified 10/22/23 11:31) Chest tightness milnacipran HCl (From Savella) Adverse Reaction (Verified 10/22/23 11:31) Other pregabalin (From Lyrica) Adverse Reaction (Verified 10/22/23 11:31) Rash rivaroxaban (From Xarelto) Adverse Reaction (Verified 10/22/23 11:31) Nausea Medications ???Medication ???Instructions ???Recorded ???Confirmed ???Type cetirizine 10 mg capsule (Zyrtec) 10 mg PO QHS allergies 01/22/17 10/22/23 History albuterol sulfate 90 mcg/actuation 2 puff inhalation Q4H PRN PRN 10/30/19 10/22/23 History aerosol inhaler Wheezing ondansetron 4 mg disintegrating 4 mg PO Q8H PRN PRN Nausea #10 tabs 12/11/22 10/22/23 Rx tablet escitalopram oxalate 5 mg tablet 5 mg PO DAILY 04/20/23 10/22/23 History pantoprazole 40 mg tablet,delayed 40 mg PO DAILY 04/20/23 10/22/23 History release valacyclovir 500 mg tablet 500 mg PO DAILY 04/20/23 10/22/23 History pseudoephedrine 60 mg-DM 15 1 tab PO Q4-6H PRN cold symptoms 05/03/23 10/22/23 Rx mg-guaifenesin 400 mg tablet #20 tabs (Capmist DM) clobetasol 0.05 % topical ointment 1 applic topical .COMPLEX #15 grams 10/22/23 10/22/23 Rx ropinirole 0.25 mg tablet 0.25 mg PO DAILY 10/22/23 10/22/23 History PFSH Medical History (Updated 10/22/23 @ 12:06 by Debbie Ying NP, REIMBURSEMENT DIRECTOR-C) COVID-19 Hx of blood clots Fibromyalgia Fatty liver Restless legs Difficulty swallowing History of hiatal hernia History of IBS Gastric reflux Non-smoker Asthma History of echocardiogram History of stress test Cardiology follow-up encounter uterine ablation r middle trigger finger release Delivery with history of Vitamin D deficiency Trigger ring finger of right hand Trigger middle finger of right hand Temporomandibular joint disorder Seizures Right hand paresthesia Rheumatoid arthritis PTSD (post-traumatic stress disorder) Patellofemoral disorder Impaired fasting glucose HTN (hypertension) Hypercholesteremia HSV infection Hayfever GERD (gastroesophageal reflux disease) Fibromyalgia muscle pain Endometriosis DVT (deep venous thrombosis) Diaphragmatic hernia without mention of obstruction or gangrene Depressive disorder Colon polyps Carpal tunnel syndrome Anxiety Calcaneal spur Aortic aneurysm Surgical History History of weight loss surgery Hx of tonsillectomy History of nasal surgery S/P foot surgery, left History of bilateral breast reduction surgery History of tubal ligation History of bilateral salpingectomy History of laparoscopic-assisted vaginal hysterectomy History of laparoscopic cholecystectomy History of esophagogastroduodenoscop y (EGD) Hx of colonoscopy History of carpal tunnel release Family History Mother Hypertension Hyperlipidemia alcohol/drug addiction Allergies Father alcohol/drug addiction Sister Thyroid disorder Fibromyalgia Blindness Grandmother Emphysema lung Heart disease Grandfather Emphysema lung Brother alcohol/drug addiction Social History 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 She also is having pain with a lump outer lower left leg/history of DVT. itching with any contact, hot flashes constantly Details: Clarisa is here for intense itching around clitoris downey, increase in hot flashes, painful lump lower outer left leg/has past history of DVT. History 3 Elective abortions Hx Para 2 Spontaneous abortions Hx # Term Pregnancies Ectopic pregnancies Hx # Pre (more content not included)... Normal [facility] Venous Duplex US, Unilateral on 10-22-2023 Venous Duplex US, Unilateral [facility] [address] [place] [address] Venous Duplex US, Unilateral 10/22/23 1354 MR#: [id number] Acct: [id number] Name: CLARISA MENDES Rep #: [id number] : 1970 53 From: Hardeep Lucio MD Attending Dr: Debbie Ying, REIMBURSEMENT DIRECTOR-C Status: REG CLI Ordering Dr: Debbie Ying REIMBURSEMENT DIRECTOR REIMBURSEMENT DIRECTOR-C Date: 10/22/23 Location: [facility] Sex: F C Admitted: Reason For Study: Swelling LLE RIGHT LEFT CFV is compressible, spontaneous, phasic, GSV is normal. competent and demonstrates normal CFV is compressible, spontaneous, phasic, augmentation. competent, and demonstrates normal Procedure augmentation. This is a venous duplex using B-mode, color FV is compressible, spontaneous, phasic, flow and spectral Doppler. competent and demonstrates normal Exam performed in department. augmentation. A preliminary report was called and/or faxed POP V is compressible, spontaneous, phasic, to Debbie Ying NP. competent and demonstrates normal augmentation. T/P Trunk is compressible. PTV is compressible. LT PerV is compressible. VL/Venous Duplex US, Unilateral Interpretation Summary Deep veins of the left lower extremity are patent and compressible segmentally. There is no evidence of left lower extremity deep vein thrombosis. The left great saphenous vein appears patent and compressible segmentally. ___ Ordering Physician: Debbie Ying Referring Physician: Tang Olguin Performed By: Lian Cooper, MAXWELL, RVT 10/22/23 1514 Date Hardeep Lucio MD CC: REIMBURSEMENT DIRECTOR-C Debbie Ying; Dr. Tang Olguin DO Date Dictated: 10/22/23 1354 Date Transcribed: 10/22/23 1484 Head Cook: Signed [facility] Zaira 10-09-2023 [facility] ([facility] ----- CLARISA MENDES ([id number]) 1970 F NFR Date Time Provider Department 10/09/23 [facility] During your visit today, we recorded the following information about you: Karen Middleton MA 10/09/2023 2:43 PM Signed Pt sends [employer] message asking about weight loss meds. See [...] MA 10/23/2023 9:43 AM Signed Sent pt [employer] message Alicia Castle MA Allergies As of Date: 10/09/2023 Noted Allergy Reaction MICONAZOLE 01/13/2004 9 - Itching MILNACIPRAN 07/19/2011 1 - Mental Status Change 14 - Other: See Comments Comments: Duson weird. RIVAROXABAN 12/02/2014 14 - Other: See [...] 14 - Other: See Comments Comments: Pain EMYA (PREGABALIN) 07/22/2018 2 - Rash 3 - Cough 9 - Itching PREDNISONE 12/27/2021 9 - Itching Date Reviewed: 06/06/2023 Reviewed by: Neva Shields APRN.RESIDENCE LIFE DIRECTOR - Fully Assessed Reason for Visit: Weight [...] 8 hours as needed for nausea/vomiting. - dhbvzh-wglujjdi-ydtghqk (CREON) 36,000-114,000- 180,000 unit delayed release capsule [...] UNSPEC [M26.609] 05/18/2006 Unspecified Myalgia and Myositis [DPQ1298] 11/12/2009 Other and unspecified hyperlipidemia [E78.5] 03/30/2005 [...] reflux disease) [K21.9] 11/12/2009 Epigastric pain [R10.13] 12/27/2009more content not included)... Normal [facility] Absolute lymphocyte countOrd ered By: Hardeep Mascorro on 05-29-2023 Lymphocytes Auto (Unsp spec) [#/Vol] 2.25 10*3/uL 0.83-4.51 [facility] Automated lymphocyte count a s percentage of total leukocytesOrdered By: Hardeep Mascorro on 05-29-2023 Lymphocytes/100 WBC Auto (Unsp spec) 35.6 % 19-41 [facility] Basophil percentageOrdered B y: Hardeep Mascorro on 05-29-2023 Basophils/100 WBC (Bld) 0.9 % 0-1 [facility] Chloride [Moles/Vol] 102 mmol/L 98-107 [facility] Eosinophils/100 WBC (Bld) 1.3 % 0-5 [facility] Glucose [Mass/Vol] 88 mg/dL 74-106 [facility] Hemoglobin (Bld) [Mass/Vol] 14.5 g/dL 12.0-15.0 [facility] Monocytes/100 WBC (Bld) 7.0 % 0-10 [facility] Neutrophils (Bld) [#/Vol] 3.5 10*3/uL 2.0-7.7 [facility] Neutrophils/100 WBC (Bld) 54.9 % 47-70 [facility] Potassium [Moles/Vol] 3.6 mmol/L 3.5-5.1 [facility] Sodium [Moles/Vol] 139 mmol/L 136-145 [facility] WBC (Bld) [#/Vol] 6.3 10*3/uL 4.4-11.0 [facility] Determination of erythrocyte mean corpuscular volume (MCV)Ordered By: Hardeep Mascorro on 05-29-2023 MCV (RBC) [Entitic vol] 90.4 fL 81-99 [facility] Erythrocyte distribution wid th ratioOrdered By: Hardeep Mascorro on 05-29-2023 Erythrocyte distribution width (RBC) [Ratio] 13.6 % 11.6-14.6 [facility] Erythrocyte distribution wid th standard deviationOrdered By: Hardeep Mascorro on 05-29-2023 Erythrocyte distribution width (RBC) [Entitic vol] 44.9 fL 35.1-43.9 [facility] Hematocrit Auto (Bld) [Volum e fraction]Ordered By: Hardeep Mascorro on 05-29-2023 Hematocrit (Bld) [Volume fraction] 45.0 % 37-47 [facility] Immature granulocytes/100 WB C Auto (Bld)Ordered By: Hardeep Mascorro on 05-29-2023 Immature granulocytes/100 WBC (Bld) 0.300 % 0.0-0.9 [facility] Comment on above: IG% - Immature Granu locytes (promyelocytes, myelocytes and metamyelocytes) > 1% indicates that a LEFT SHIFT is Present. Laboratory - Chemistry and C hemistry - challengeOrdered By: Hardeep Mascorro on 05-29-2023 CO2 [Moles/Vol] 29.0 mmol/L 21.0-32.0 [facility] Urea nitrogen/Creatinine [Mass ratio] 13.4 mg/mg 10-20 [facility] Laboratory - Hematology and Cell countsOrdered By: Hardeep Mascorro on 05-29-2023 MCH (RBC) [Entitic mass] 29.1 pg 27.0-32.0 [facility] MCHC (RBC) [Mass/Vol] 32.2 g/dL 32-36 [facility] Nucleated RBC/100 WBC (Bld) [Ratio] 0 % 0-5 [facility] Platelet mean volume (Bld) [Entitic vol] 10.7 fL 6.2-12.0 [facility] Platelets (Bld) [#/Vol] 229 10*3/uL 150-450 [facility] No Panel InformationOrdered By: Hardeep Mascorro on 05-29-2023 Estimated Creatinine Clearance Calc 89.12 ml/min [facility] Estimated GFR (MDRD) Amer 105 mL/min >60 [facility] Comment on above: GFR Calc Estimated GFR (MDRD) Non-Af Amer 87 mL/min >60 [facility] Comment on above: Non- GFR Calc Troponin I High Sensitivity 6 pg/mL 3.0-54.0 [facility] Comment on above: Please Note: New Clarissa t Units and Gender Specific Reference Ranges. For more information see Policy Stat Procedure Angora High Sensitivity Troponin (TNIH) and attachments. RBC Auto (Bld) [#/Vol]Ordere d By: Hardeep Mascorro on 05-29-2023 RBC (Bld) [#/Vol] 4.98 10*6/uL 4.2-5.4 [facility] Serum or plasma calcium consuelo urement (mass/volume)Ordered By: Hardeep Mascorro on 05-29-2023 Calcium [Mass/Vol] 9.3 mg/dL 8.5-10.1 [facility] Serum or plasma creatinine m easurement (mass/volume)Ordered By: Hardeep Mascorro on 05-29-2023 Creatinine [Mass/Vol] 0.74 mg/dL 0.55-1.02 [facility] Comment on above: The validity of the calculated GFR & GFRAA in patients over 70 years has not been determined. Clinical correlation is essential. Serum or plasma urea nitroge n measurement (mass/volume)Ordered By: Hardeep Mascorro on 05-29-2023 Urea nitrogen [Mass/Vol] 10 mg/dL 7-18 [facility] Thin prep Papanicolaou smear with manual screeningOrdered By: Hardeep Mascorro on 05-29-2023 Thin prep Papanicolaou smear with manual screening 8 5-15 [facility] Laboratory - Microbiology an d Antimicrobial susceptibilityon 05-03-2023 S. pyogenes Ag IA Ql (Unsp spec) Negative [facility] No Panel Informationon 05-03 Influenza Types A,B Rapid (Clinic) Negative [facility] POC SARS CoV-2 Antigen Negative [facility] XR FOOT GENERAL 3V AP/LAT/OB L RIGHTon 04-13-2023 [facility] XR Foot - right AP and Later al and obliqueon 04-13-2023 IMPRESSION: No acute fractures demonstrated in the right foot. Degenerative changes as described above. Head Cook: PSCB Transcribe Date/Time: Apr 13 2023 10:07A Dictated by : ROSE MARY SULLIVAN MD This examination was interpreted and the report reviewed and electronically signed by: ROSE MARY SULLIVAN MD on Apr 13 2023 10:13AM [facility] DIVISION OF RADIOLOGY * * *Final Report* [...] soft tissue swelling. [facility] * * *Final Report* * [...] right foot. Degenerative changes as described above. Head Cook: PSCB Transcribe Date/Time: Apr 13 2023 10:07A Dictated by : ROSE MARY SULLIVAN MD This examination was interpreted and the report reviewed and electronically signed by: ROSE MARY SULLIVAN MD on Apr 13 2023 10:13AM [facility] Radiology Study observation (narrative[facility] XR Foot - right AP and Later al and obliqueOrdered By: [facility]cf Provider on 04-13-2023 [facility] ED NOTEon 02-25-2023 ED NOTE HNO ID: [id number] Author: Ashley Land, RN Service: Nursing Author Type: Registered Nurse Type: ED Notes Filed: 02/25/2023 7:25 PM Note Text: Pt verbalizes understanding of discharge instructions. Pt able to ambulate out of ED. Normal [facility] ED NOTE HNO ID: [id number] Author: Ashley Land, YOLIE Service: Nursing Author Type: Registered Nurse Type: ED Notes Filed: 02/25/2023 3:55 PM Note Text: Pt reports body aches and cough since yesterday. Did covid home test this morning which was negative. Normal [facility] ED PROV NOTEon 02-25-2023 ED PROV NOTE HNO ID: [id number] Author: MARY FARFAN MD Service: Emergency Medicine Author Type: Physician Type: ED Provider Notes Filed: 03/21/2023 21:56 Note Text: ED Provider Note Patient Name: Clarisa Ann : 1970 SERVICE DATE: 02/25/23 History [...] chronic gastritis EGD TRANSORAL BIOPSY SINGLE/MULTIPLE 05/04/2010 ESOPHAGOGASTRODUODENOSCOP Y TRANSORAL DIAGNOSTIC 11/23/2017 EGD ESOPHAGOGASTRODUODENOSCOP Y TRANSORAL DIAGNOSTIC 05/01/2019 EGD GASTRIC BYPASS HX [...] Milnacipran Mental Status Change, Other: See Comments Duson weird. Rivaroxaban Other: See Comments, GI Upset [...] chills, fa (more content not included)... Normal [facility] FLUABV+SARS-CoV-2+RSV Pnl Re sp AYAZ+probeon 02-25-2023 FLUABV+SARS-CoV-2+RSV Pnl Resp AYAZ+probe COVID 19 RESULT: Not detected The method used is RT-PCR or an equivalent NAAT method. Reference Range(the expected result in uninfected individuals): Not detected INFLUENZA A PCR: Detected INFLUENZA B PCR: Not detected RSV PCR: Not detected Abnormal [facility] Comment on above: Performed By: #### 9 [id number] ####[facility] LABCLIA [id number] [place] [address] [facility] Absolute lymphocyte countOrd ered By: ED PROVIDER on 12-11-2022 Lymphocytes Auto (Unsp spec) [#/Vol] 2.18 10*3/uL 0.83-4.51 [facility] Basophil percentageOrdered B y: Ty Beltreraquel on 12-11-2022 Basophil percentage 0 SEEN /hpf 0-5 [facility] Bilirubin [Mass/Vol] 0.40 mg/dL 0.20-1.00 [facility] Comment on above: For patients on eltr ombopag therapy, use of Dimension Angora TBIL is not recommended. Protein [Mass/Vol] 7.3 g/dL 6.4-8.2 [facility] Basophil percentageOrdered B y: ED PROVIDER on 12-11-2022 Basophils/100 WBC (Bld) 0.6 % 0-1 [facility] Eosinophils/100 WBC (Bld) 1.8 % 0-5 [facility] Neutrophils (Bld) [#/Vol] 3.8 10*3/uL 2.0-7.7 [facility] Neutrophils/100 WBC (Bld) 57.1 % 47-70 [facility] WBC (Bld) [#/Vol] 6.6 10*3/uL 4.4-11.0 [facility] Basophil percentageOrdered B y: Delfina Gabriel on 12-11-2022 Chloride [Moles/Vol] 105 mmol/L 98-107 [facility] Glucose [Mass/Vol] 95 mg/dL 74-106 [facility] Potassium [Moles/Vol] 4.1 mmol/L 3.5-5.1 [facility] Sodium [Moles/Vol] 138 mmol/L 136-145 [facility] Bilirubin Test strip Ql (U)O rdered By: Ty Garcia on 12-11-2022 Bilirubin Ql (U) Negative Negative [facility] Blood erythrocytes count (nu mber/volume)Ordered By: ED PROVIDER on 12-11-2022 RBC (Bld) [#/Vol] 4.79 10*6/uL 4.2-5.4 [facility] Blood hemoglobin measurement (mass/volume)Ordered By: ED PROVIDER on 12-11-2022 Hemoglobin (Bld) [Mass/Vol] 13.9 g/dL 12.0-15.0 [facility] Blood lymphocytes/100 leukoc ytesOrdered By: ED PROVIDER on 12-11-2022 Lymphocytes/100 WBC (Bld) 33.0 % 19-41 [facility] Blood monocytes/100 leukocyt esOrdered By: ED PROVIDER on 12-11-2022 Monocytes/100 WBC (Bld) 7.3 % 0-10 [facility] Blood platelet mean volumeOr dered By: ED PROVIDER on 12-11-2022 Platelet mean volume (Bld) [Entitic vol] 10.9 fL 6.2-12.0 [facility] Determination of erythrocyte mean corpuscular volume (MCV)Ordered By: ED PROVIDER on 12-11-2022 MCV (RBC) [Entitic vol] 89.6 fL 81-99 [facility] Direct bilirubinOrdered By: Ty Garcia on 12-11-2022 Bilirubin.direct [Mass/Vol] 0.12 mg/dL 0.00-0.30 [facility] Hematocrit Auto (Bld) [Volum e fraction]Ordered By: ED PROVIDER on 12-11-2022 Hematocrit (Bld) [Volume fraction] 42.9 % 37-47 [facility] Ketones Test strip Ql (U)Ord ered By: Ty Garcia on 12-11-2022 Ketones Ql (U) Negative Negative [facility] Laboratory - Chemistry and C hemistry - challengeOrdered By: Ty Garcia on 12-11-2022 ALP [Catalytic activity/Vol] 138 U/L 45-117 [facility] ALT [Catalytic activity/Vol] 44 U/L 13-56 [facility] Globulin (S) [Mass/Vol] 3.8 g/dL 2.2-4.2 [facility] Lipase [Catalytic activity/Vol] 22 U/L 13-75 [facility] Comment on above: Please note:LIPASE r evised reference range effective 22. New Lipase methodology. Expected to produce lower values than the previous assay method. NEW Reference Range: 13 - 75 U/L Magnesium [Mass/Vol] 2.3 mg/dL 1.6-2.6 [facility] Laboratory - Chemistry and C hemistry - challengeOrdered By: Delfina Gabriel on 12-11-2022 CO2 [Moles/Vol] 29.0 mmol/L 21.0-32.0 [facility] Urea nitrogen/Creatinine [Mass ratio] 15.2 mg/mg 10-20 [facility] Laboratory - Hematology and Cell countsOrdered By: ED PROVIDER on 12-11-2022 Erythrocyte distribution width (RBC) [Entitic vol] 44.8 fL 35.1-43.9 [facility] Erythrocyte distribution width (RBC) [Ratio] 13.6 % 11.6-14.6 [facility] Immature granulocytes/100 WBC (Bld) 0.200 % 0.0-0.9 [facility] Comment on above: IG% - Immature Granu locytes (promyelocytes, myelocytes and metamyelocytes) > 1% indicates that a LEFT SHIFT is Present. MCH (RBC) [Entitic mass] 29.0 pg 27.0-32.0 [facility] Nucleated RBC/100 WBC (Bld) [Ratio] 0 % 0-5 [facility] MCHC Auto (RBC) [Mass/Vol]Or dered By: ED PROVIDER on 12-11-2022 MCHC (RBC) [Mass/Vol] 32.4 g/dL 32-36 [facility] Mucus LM Ql (Urine sed)Order ed By: Ty Garcia on 12-11-2022 Mucus Ql (Urine sed) 0 SEEN /hpf [facility] Nitrite Test strip Ql (U)Ord ered By: Ty Garcia on 12-11-2022 Nitrite Ql (U) Negative Negative [facility] No Panel InformationOrdered By: Delfina Gabriel on 12-11-2022 Troponin I High Sensitivity 6 pg/mL 3.0-54.0 [facility] Comment on above: Please Note: New Clarissa t Units and Gender Specific Reference Ranges. For more information see Policy Stat Procedure [place]gora High Sensitivity Troponin (TNIH) and attachments. Estimated Creatinine Clearance Calc 66.63 ml/min [facility] Estimated GFR (MDRD) Amer 98 mL/min >60 [facility] Comment on above: GFR Calc Estimated GFR (MDRD) Non-Af Amer 81 mL/min >60 [facility] Comment on above: Non- GFR Calc Platelets bldOrdered By: ED PROVIDER on 12-11-2022 Platelets (Bld) [#/Vol] 230 10*3/uL 150-450 [facility] Protein Test strip Ql (U)Ord ered By: Ty Garcia on 12-11-2022 Protein Ql (U) Negative Negative [facility] Serum or plasma albumin consuelo urement (mass/volume)Ordered By: Ty Garcia on 12-11-2022 Albumin [Mass/Vol] 3.5 g/dL 3.2-5.0 [facility] Serum or plasma calcium consuelo urement (mass/volume)Ordered By: Delfina Gabriel on 12-11-2022 Calcium [Mass/Vol] 9.0 mg/dL 8.5-10.1 [facility] Serum or plasma creatinine m easurement (mass/volume)Ordered By: Delfina Gabriel on 12-11-2022 Creatinine [Mass/Vol] 0.79 mg/dL 0.55-1.02 [facility] Comment on above: The validity of the calculated GFR & GFRAA in patients over 70 years has not been determined. Clinical correlation is essential. Serum or plasma urea nitroge n measurement (mass/volume)Ordered By: Delfina Gabriel on 12-11-2022 Urea nitrogen [Mass/Vol] 12 mg/dL 7-18 [facility] Squamous epithelial cells de tection in urine sediment by light microscopyOrdered By: Ty Garcia on 12-11-2022 Epithelial cells.squamous LM Ql (Urine sed) 0-5 SEEN /hpf 5-10 [facility] Thin prep Papanicolaou smear with manual screeningOrdered By: Ty Garcia on 12-11-2022 Thin prep Papanicolaou smear with manual screening 31 U/L 15-37 [facility] Thin prep Papanicolaou smear with manual screeningOrdered By: Delfina Gabriel on 12-11-2022 Thin prep Papanicolaou smear with manual screening 4 5-15 [facility] Urine blood detectionOrdered By: Ty Garcia on 12-11-2022 RBC Ql (U) Negative Negative [facility] RBC Ql (U) 0 SEEN /hpf 0-5 [facility] Urine clarityOrdered By: Yessica Garcia on 12-11-2022 Clarity (U) Clear Clear [facility] Urine color determinationOrd ered By: Ty Garcia on 12-11-2022 Color (U) Yellow Yellow [facility] Urine glucose detectionOrder ed By: Ty Garcia on 12-11-2022 Glucose Ql (U) Normal mg/dl Normal [facility] Urine leukocyte esterase det ection by dipstickOrdered By: Ty Garcia on 12-11-2022 Leukocyte esterase Test strip Ql (U) Negative Negative [facility] Urine pHOrdered By: Ty aponte on 12-11-2022 pH (U) 6.5 [pH] 5.0 - 8.0 [facility] Urine sediment bacteria coun t by microscopy (number/high power field)Ordered By: Ty Garcia on 12-11-2022 Bacteria LM.HPF (Urine sed) [#/Area] 0 /[HPF] None Seen [facility] Urine specific gravity measu rementOrdered By: Ty Garcia on 12-11-2022 Specific gravity (U) [Rel density] 1.010 1.002-1.03 0 [facility] Urobilinogen Auto test strip Ql (U)Ordered By: Ty Garcia on 12-11-2022 Urobilinogen Ql (U) Normal mg/dl Normal [facility] Endoscopic Ultrasound (Upper )on 11-09-2022 Kristal Recinos MD - 12/05/2022 Patient Name: Clarisa Ann Procedure Date: 11/09/2022 12:35 PM Date of : 1970 Admit Type: Outpatient Site: [facility] 1 Ethnicity: Not or Race: White Attending MD: Kristal Recinos MD, [id number] Procedure: Upper EUS Indications: Common bile duct dilation (acquired) seen on MRI, Upper abdominal pain, Generalized abdominal pain, Assessment following Mitchel-en-Y gastric bypass Patient Profile: This is a 52 year old female. Refer to note in patient chart for documentation of history and physical. Providers: Kristal Recinos MD (Doctor), Amanda Muñoz RN (Nurse), Clive Boyer, Shake Packer Referring: Medicines: Monitored Anesthesia Care Complications: No [...] healthy appearing mucosa. This was traversed. The yvrbm-hm-nmnnbqs limb was characterized by healthy appearing mucosa. [...] present medications. Procedure Code(s): --- Professional --- 41488, Esophagogastroduodenoscop y, flexible, transoral; with endoscopic ultrasound examination limited [...] diseases of biliary tract CPT copyright 2020 [employer] [place] [employer]. All rights reserved. The codes documented in this report are preliminary and upon truck driver helper review may be revised to meet current compliance requirements. MD Kristal Zarate MD 11/09/2022 1:18:40 PM This report has been signed electronically. Number of Addenda: 0 Note Initiated On: 11/09/2022 12:35 PM Total Procedure Duration Time 0 hours 17 minutes 19 seconds [facility] Work Phone: Radiology Study observation (narrative) [facility] Work Phone: Endoscopic Ultrasound (Upper )Ordered By: Kristal Recinos on 11-09-2022 [facility] Work Phone: Upper EUSon 11-09-2022 Upper EUS PATIENTNAME Patient Name: Clarisa Ann EXAMDATE Procedure Date: 11/09/2022 12:35 PM PATIENTID PATIENTACCOUNTNUM PATIENTDOB Date of : 1970 ADMITTYPE Admit Type: Outpatient PATIENTROOM Site: [facility] 1 ETHNICITY Ethnicity: Not or RACE Race: White PROVDR Attending MD: Kristal Recinos MD, [id number] ENDOPROCEDURENAME Procedure: Upper EUS INDICATION Indications: Common bile duct dilation (acquired) seen on MRI, Upper abdominal pain, Generalized abdominal pain, Assessment following Mitchel-en-Y gastric bypass PTPROFILE Patient Profile: This is a 52 year old female. Refer to note in patient chart for documentation of history and physical. PRIMARYPROVIDER Providers: Kristal Recinos MD (Doctor), Amanda Muñoz RN (Nurse), Clive Boyer, Shake Packer EDREFPROVIDER Referring: CURRENT_MEDS Medicines: Monitored Anesthesia Care [...] healthy appearing mucosa. This was traversed. The civda-aj-kxlayvc limb was characterized by healthy appearing mucosa. [...] medications. CPT_CODES Procedure Code(s): --- Professional --- 74278, Esophagogastroduodenoscop y, flexible, transoral; with endoscopic ultrasound examination limited to the esophagus, stomach or duodenum, and adjacent structures ICD_CODES Diagnosis Code(s): --- Professional --- Z98.84, Bariatric surgery status R10.10, Upper abdominal pain, unspecified R10.84, Generalized abdominal pain Z09, Encounter for follow-up examination after completed treatment for conditions other than malignant neoplasm Z98.0, Intestinal bypass and anastomosis status K83.8, Other specified diseases of biliary tract CODINGSTMT CPT copyright 2020 [employer] [place] [employer]. All rights reserved. The codes documented in this report are preliminary and upon truck driver helper review may be revised to meet current compliance requirements. SIGNATURENAME MD Kristal Zarate MD SIGNATUREDATE 11/09/2022 1:18:40 PM SIGNATUREONFILEIND This report has been signed electronically. NUMADDENDA Number of Addenda: 0 INITIATEDON Note Initiated On: 11/09/2022 12:35 PM TOTPROCTIME To (more content not included)... Normal [facility] Basophil percentageOrdered B y: Faraz Cortez on 10-13-2022 Bilirubin [Mass/Vol] 0.40 mg/dL 0.20-1.00 [facility] Comment on above: For patients on eltr ombopag therapy, use of Dimension Angora TBIL is not recommended. Chloride [Moles/Vol] 107 mmol/L 98-107 [facility] Glucose [Mass/Vol] 89 mg/dL 74-106 [facility] Potassium [Moles/Vol] 3.9 mmol/L 3.5-5.1 [facility] Protein [Mass/Vol] 7.5 g/dL 6.4-8.2 [facility] Sodium [Moles/Vol] 139 mmol/L 136-145 [facility] Direct bilirubinOrdered By: Faraz Cortez on 10-13-2022 Bilirubin.direct [Mass/Vol] 0.12 mg/dL 0.00-0.30 [facility] Laboratory - Chemistry and C hemistry - challengeOrdered By: Faraz Cortez on 10-13-2022 ALP [Catalytic activity/Vol] 146 U/L 45-117 [facility] ALT [Catalytic activity/Vol] 56 U/L 13-56 [facility] CO2 [Moles/Vol] 27.0 mmol/L 21.0-32.0 [facility] Globulin (S) [Mass/Vol] 4.2 g/dL 2.2-4.2 [facility] Urea nitrogen/Creatinine [Mass ratio] 10.0 mg/mg 10-20 [facility] No Panel InformationOrdered By: Faraz Cortez on 10-13-2022 Estimated GFR (MDRD) Amer 85 mL/min >60 [facility] Comment on above: GFR Calc Estimated GFR (MDRD) Non-Af Amer 70 mL/min >60 [facility] Comment on above: Non- GFR Calc Serum or plasma albumin consuelo urement (mass/volume)Ordered By: Faraz Cortez on 10-13-2022 Albumin [Mass/Vol] 3.3 g/dL 3.2-5.0 [facility] Serum or plasma albumin/glob ulin mass ratioOrdered By: Faraz Cortez on 10-13-2022 Albumin/Globulin [Mass ratio] 0.8 {ratio} 0.9-2.4 [facility] Serum or plasma calcium consuelo urement (mass/volume)Ordered By: Faraz Cortez on 10-13-2022 Calcium [Mass/Vol] 9.0 mg/dL 8.5-10.1 [facility] Serum or plasma creatinine m easurement (mass/volume)Ordered By: Faraz Cortez on 10-13-2022 Creatinine [Mass/Vol] 0.90 mg/dL 0.55-1.02 [facility] Comment on above: The validity of the calculated GFR & GFRAA in patients over 70 years has not been determined. Clinical correlation is essential. Serum or plasma urea nitroge n measurement (mass/volume)Ordered By: Faraz Cortez on 10-13-2022 Urea nitrogen [Mass/Vol] 9 mg/dL 7-18 [facility] Thin prep Papanicolaou smear with manual screeningOrdered By: Faraz Cortez on 10-13-2022 Thin prep Papanicolaou smear with manual screening 46 U/L 15-37 [facility] Thin prep Papanicolaou smear with manual screening 5 5-15 [facility] Comprehensive metabolic 2000 panelon 10-11-2022 Albumin [Mass/Vol] 3.7 g/dL Low 3.9 - 4.9 g/dL [facility] ALP [Catalytic activity/Vol] 121 U/L 34 - 123 U/L [facility] ALT [Catalytic activity/Vol] 30 U/L 7 - 38 U/L [facility] Anion gap [Moles/Vol] 10 mmol/L 9 - 18 mmol/L [facility] AST [Catalytic activity/Vol] 28 U/L 13 - 35 U/L [facility] Bilirubin [Mass/Vol] 0.3 mg/dL 0.2 - 1 .3 mg/dL [facility] Calcium [Mass/Vol] 9.3 mg/dL 8.5 - 10. 2 mg/dL [facility] Chloride [Moles/Vol] 105 mmol/L 97 - 10 5 mmol/L [facility] CO2 [Moles/Vol] 22 mmol/L 22 - 30 mmol/L [facility] Creatinine [Mass/Vol] 0.81 mg/dL 0.58 - 0.96 mg/dL [facility] Estimated Glomerular Filtration Rate 88 mL/min/1.73m >=60 mL/min/1.7 3m [facility] Glucose [Mass/Vol] 85 mg/dL 74 - 99 mg/dL [facility] Potassium [Moles/Vol] 4.3 mmol/L 3.7 - 5.1 mmol/L [facility] Protein [Mass/Vol] 6.7 g/dL 6.3 - 8.0 g/dL [facility] Sodium [Moles/Vol] 137 mmol/L 136 - 144 mmol/L [facility] Urea nitrogen [Mass/Vol] 9 mg/dL 7 - 21 mg/dL [facility] MAGNESIUM [facility] 10-11-2022 Magnesium [Mass/Vol] 2.0 mg/dL 1.7 - 2 .3 mg/dL [facility] T3 FREE [facility] 10-11-2022 Free T3 [Mass/Vol] 2.5 pg/mL 2.3 - 4.1 pg/mL [facility] T4 FREE/FREE THYROXon 2022 Free T4 [Mass/Vol] 0.9 ng/dL 0.9 - 1.7 ng/dL [facility] TSH [facility] 10-11-2022 TSH Qn 3.580 m[IU]/L 0.270 - 4.200 mIU/L [facility] VITAMIN B12 BLOODon 08-02-20 23 Cobalamin (Vitamin B12) [Mass/Vol] 1407 pg/mL High 232 - 1,245 pg/mL [facility] VITAMIN D 25 HYDROXYon 10-11 25-hydroxyvitamin D3 [Mass/Vol] 41.2 ng/mL 31.0 - 80.0 ng/mL [facility] Absolute lymphocyte countOrd ered By: Geovanni Mohan on 10-02-2022 Lymphocytes Auto (Unsp spec) [#/Vol] 1.82 10*3/uL 0.83-4.51 [facility] Basophil percentageOrdered B y: Geovanni Mohan on 10-02-2022 Basophil percentage 0 SEEN /hpf 0-5 [facility] Basophils/100 WBC (Bld) 0.7 % 0-1 [facility] Bilirubin [Mass/Vol] 0.30 mg/dL 0.20-1.00 [facility] Comment on above: For patients on eltr ombopag therapy, use of Dimension Angora TBIL is not recommended. Chloride [Moles/Vol] 107 mmol/L 98-107 [facility] Eosinophils/100 WBC (Bld) 1.4 % 0-5 [facility] Glucose [Mass/Vol] 83 mg/dL 74-106 [facility] Lactate [Moles/Vol] 0.5 mmol/L 0.4-2.0 [facility] Neutrophils (Bld) [#/Vol] 3.4 10*3/uL 2.0-7.7 [facility] Neutrophils/100 WBC (Bld) 59.3 % 47-70 [facility] Potassium [Moles/Vol] 3.8 mmol/L 3.5-5.1 [facility] Protein [Mass/Vol] 6.8 g/dL 6.4-8.2 [facility] Sodium [Moles/Vol] 138 mmol/L 136-145 [facility] WBC (Bld) [#/Vol] 5.8 10*3/uL 4.4-11.0 [facility] Bilirubin Test strip Ql (U)O rdered By: Geovanni Mohan on 10-02-2022 Bilirubin Ql (U) Negative Negative [facility] Blood erythrocytes count (nu mber/volume)Ordered By: Geovanni Mohan on 10-02-2022 RBC (Bld) [#/Vol] 4.80 10*6/uL 4.2-5.4 [facility] Blood hemoglobin measurement (mass/volume)Ordered By: Geovanni Mohan on 10-02-2022 Hemoglobin (Bld) [Mass/Vol] 13.6 g/dL 12.0-15.0 [facility] Blood lymphocytes/100 leukoc ytesOrdered By: Geovanni Mohan on 10-02-2022 Lymphocytes/100 WBC (Bld) 31.6 % 19-41 [facility] Blood monocytes/100 leukocyt esOrdered By: Geovanni Mohan on 10-02-2022 Monocytes/100 WBC (Bld) 6.8 % 0-10 [facility] Blood platelet mean volumeOr dered By: Geovanni Mohan on 10-02-2022 Platelet mean volume (Bld) [Entitic vol] 11.1 fL 6.2-12.0 [facility] Determination of erythrocyte mean corpuscular volume (MCV)Ordered By: Geovanni Mohan on 10-02-2022 MCV (RBC) [Entitic vol] 89.0 fL 81-99 [facility] Hematocrit Auto (Bld) [Volum e fraction]Ordered By: Geovanni Mohan on 10-02-2022 Hematocrit (Bld) [Volume fraction] 42.7 % 37-47 [facility] Ketones Test strip Ql (U)Ord ered By: Geovanni Mohan on 10-02-2022 Ketones Ql (U) Negative Negative [facility] Laboratory - Chemistry and C hemistry - challengeOrdered By: Geovanni Mohan on 10-02-2022 ALP [Catalytic activity/Vol] 118 U/L 45-117 [facility] ALT [Catalytic activity/Vol] 35 U/L 13-56 [facility] CO2 [Moles/Vol] 27.0 mmol/L 21.0-32.0 [facility] Globulin (S) [Mass/Vol] 3.8 g/dL 2.2-4.2 [facility] Lipase [Catalytic activity/Vol] 21 U/L 13-75 [facility] Comment on above: Please note:LIPASE r evised reference range effective 22. New Lipase methodology. Expected to produce lower values than the previous assay method. NEW Reference Range: 13 - 75 U/L Urea nitrogen/Creatinine [Mass ratio] 10.5 mg/mg 10-20 [facility] Laboratory - Hematology and Cell countsOrdered By: Geovanni Mohan on 10-02-2022 Erythrocyte distribution width (RBC) [Entitic vol] 46.4 fL 35.1-43.9 [facility] Erythrocyte distribution width (RBC) [Ratio] 14.4 % 11.6-14.6 [facility] Immature granulocytes/100 WBC (Bld) 0.200 % 0.0-0.9 [facility] Comment on above: IG% - Immature Granu locytes (promyelocytes, myelocytes and metamyelocytes) > 1% indicates that a LEFT SHIFT is Present. MCH (RBC) [Entitic mass] 28.3 pg 27.0-32.0 [facility] Nucleated RBC/100 WBC (Bld) [Ratio] 0 % 0-5 [facility] MCHC Auto (RBC) [Mass/Vol]Or dered By: Geovanni Mohan on 10-02-2022 MCHC (RBC) [Mass/Vol] 31.9 g/dL 32-36 [facility] Mucus LM Ql (Urine sed)Order ed By: Geovanni Mohan on 10-02-2022 Mucus Ql (Urine sed) 0 SEEN /hpf [facility] Nitrite Test strip Ql (U)Ord ered By: Geovanni Mohan on 10-02-2022 Nitrite Ql (U) Negative Negative [facility] No Panel InformationOrdered By: Geovanni Mohan on 10-02-2022 Estimated Creatinine Clearance Calc 69.26 ml/min [facility] Estimated GFR (MDRD) Amer 103 mL/min >60 [facility] Comment on above: GFR Calc Estimated GFR (MDRD) Non-Af Amer 85 mL/min >60 [facility] Comment on above: Non- GFR Calc Platelets bldOrdered By: Ralph Mohan on 10-02-2022 Platelets (Bld) [#/Vol] 247 10*3/uL 150-450 [facility] Protein Test strip Ql (U)Ord ered By: Geovanni Mohan on 10-02-2022 Protein Ql (U) 15 mg/dl Negative [facility] Serum or plasma albumin consuelo urement (mass/volume)Ordered By: Geovanni Mohan on 10-02-2022 Albumin [Mass/Vol] 3.0 g/dL 3.2-5.0 [facility] Serum or plasma albumin/glob ulin mass ratioOrdered By: Geovanni Mohan on 10-02-2022 Albumin/Globulin [Mass ratio] 0.8 {ratio} 0.9-2.4 [facility] Serum or plasma calcium consuelo urement (mass/volume)Ordered By: Geovanni Mohan on 10-02-2022 Calcium [Mass/Vol] 8.7 mg/dL 8.5-10.1 [facility] Serum or plasma creatinine m easurement (mass/volume)Ordered By: Geovanni Mohan on 10-02-2022 Creatinine [Mass/Vol] 0.76 mg/dL 0.55-1.02 [facility] Comment on above: The validity of the calculated GFR & GFRAA in patients over 70 years has not been determined. Clinical correlation is essential. Serum or plasma urea nitroge n measurement (mass/volume)Ordered By: Geovanni Mohan on 10-02-2022 Urea nitrogen [Mass/Vol] 8 mg/dL 7-18 [facility] Squamous epithelial cells de tection in urine sediment by light microscopyOrdered By: Geovanni Mohan on 10-02-2022 Epithelial cells.squamous LM Ql (Urine sed) 0-5 SEEN /hpf 5-10 [facility] Thin prep Papanicolaou smear with manual screeningOrdered By: Geovanni Mohan on 10-02-2022 Thin prep Papanicolaou smear with manual screening 24 U/L 15-37 [facility] Thin prep Papanicolaou smear with manual screening 4 5-15 [facility] Urine blood detectionOrdered By: Geovanni Mohan on 10-02-2022 RBC Ql (U) Negative Negative [facility] RBC Ql (U) 0 SEEN /hpf 0-5 [facility] Urine clarityOrdered By: Ralph Mohan on 10-02-2022 Clarity (U) Sl. Cloudy Clear [facility] Urine color determinationOrd ered By: Geovanni Mohan on 10-02-2022 Color (U) Yellow Yellow [facility] Urine glucose detectionOrder ed By: Geovanni Mohan on 10-02-2022 Glucose Ql (U) Normal mg/dl Normal [facility] Urine leukocyte esterase det ection by dipstickOrdered By: Geovanni Mohan on 10-02-2022 Leukocyte esterase Test strip Ql (U) Negative Negative [facility] Urine pHOrdered By: Geovanni Mohan on 10-02-2022 pH (U) 6.5 [pH] 5.0 - 8.0 [facility] Urine sediment bacteria coun t by microscopy (number/high power field)Ordered By: Geovanni Mohan on 10-02-2022 Bacteria LM.HPF (Urine sed) [#/Area] 0 /[HPF] None Seen [facility] Urine specific gravity measu rementOrdered By: Geovanni Mohan on 10-02-2022 Specific gravity (U) [Rel density] 1.015 1.002-1.03 0 [facility] Urobilinogen Auto test strip Ql (U)Ordered By: Geovanni Mohan on 10-02-2022 Urobilinogen Ql (U) 4 mg/dl Normal [facility] Absolute lymphocyte countOrd ered By: Dr. Millard on 07-25-2022 Lymphocytes Auto (Unsp spec) [#/Vol] 1.97 10*3/uL 0.83-4.51 [facility] Basophil percentageOrdered B y: Dr. Millard on 07-25-2022 Basophil percentage 0-5 SEEN /hpf 0-5 [facility] Basophils/100 WBC (Bld) 0.6 % 0-1 [facility] Chloride [Moles/Vol] 109 mmol/L 98-107 [facility] Eosinophils/100 WBC (Bld) 1.6 % 0-5 [facility] Glucose [Mass/Vol] 86 mg/dL 74-106 [facility] Neutrophils (Bld) [#/Vol] 4.3 10*3/uL 2.0-7.7 [facility] Neutrophils/100 WBC (Bld) 61.3 % 47-70 [facility] Potassium [Moles/Vol] 4.1 mmol/L 3.5-5.1 [facility] Comment on above: Moderate Hemolysis, Result may be falsely increased. Sodium [Moles/Vol] 141 mmol/L 136-145 [facility] WBC (Bld) [#/Vol] 7.1 10*3/uL 4.4-11.0 [facility] Bilirubin Test strip Ql (U)O rdered By: Dr. Millard on 07-25-2022 Bilirubin Ql (U) Negative Negative [facility] Blood erythrocytes count (nu mber/volume)Ordered By: Dr. Millard on 07-25-2022 RBC (Bld) [#/Vol] 4.68 10*6/uL 4.2-5.4 [facility] Blood hemoglobin measurement (mass/volume)Ordered By: Dr. Millard on 07-25-2022 Hemoglobin (Bld) [Mass/Vol] 12.9 g/dL 12.0-15.0 [facility] Blood lymphocytes/100 leukoc ytesOrdered By: Dr. Millard on 07-25-2022 Lymphocytes/100 WBC (Bld) 27.9 % 19-41 [facility] Blood monocytes/100 leukocyt esOrdered By: Dr. Millard on 07-25-2022 Monocytes/100 WBC (Bld) 8.3 % 0-10 [facility] Blood platelet mean volumeOr dered By: Dr. Millard on 07-25-2022 Platelet mean volume (Bld) [Entitic vol] 10.5 fL 6.2-12.0 [facility] Determination of erythrocyte mean corpuscular volume (MCV)Ordered By: Dr. Millard on 07-25-2022 MCV (RBC) [Entitic vol] 84.0 fL 81-99 [facility] Hematocrit Auto (Bld) [Volum e fraction]Ordered By: Dr. Millard on 07-25-2022 Hematocrit (Bld) [Volume fraction] 39.3 % 37-47 [facility] Ketones Test strip Ql (U)Ord ered By: Dr. Millard on 07-25-2022 Ketones Ql (U) 5 mg/dl Negative [facility] Laboratory - Chemistry and C hemistry - challengeOrdered By: Dr. Millard on 07-25-2022 CO2 [Moles/Vol] 23.0 mmol/L 21.0-32.0 [facility] Urea nitrogen/Creatinine [Mass ratio] 16.7 mg/mg 10-20 [facility] Laboratory - Hematology and Cell countsOrdered By: Dr. Millard on 07-25-2022 Erythrocyte distribution width (RBC) [Entitic vol] 49.0 fL 35.1-43.9 [facility] Erythrocyte distribution width (RBC) [Ratio] 16.2 % 11.6-14.6 [facility] Immature granulocytes/100 WBC (Bld) 0.300 % 0.0-0.9 [facility] Comment on above: IG% - Immature Granu locytes (promyelocytes, myelocytes and metamyelocytes) > 1% indicates that a LEFT SHIFT is Present. MCH (RBC) [Entitic mass] 27.6 pg 27.0-32.0 [facility] Nucleated RBC/100 WBC (Bld) [Ratio] 0 % 0-5 [facility] MCHC Auto (RBC) [Mass/Vol]Or dered By: Dr. Millard on 07-25-2022 MCHC (RBC) [Mass/Vol] 32.8 g/dL 32-36 [facility] Mucus LM Ql (Urine sed)Order ed By: Dr. Millard on 07-25-2022 Mucus Ql (Urine sed) 2+ /hpf [facility] Nitrite Test strip Ql (U)Ord ered By: Dr. Millard on 07-25-2022 Nitrite Ql (U) Negative Negative [facility] No Panel InformationOrdered By: Dr. Millard on 07-25-2022 D-Dimer Quantitative (PE/DVT) < 0.27 FEU/ug/m 0.27-0.49 [facility] Comment on above: NORMAL D-Dimer level (<0.50) indicates no DVT or PE. Estimated Creatinine Clearance Calc 79.76 ml/min [facility] Estimated GFR (MDRD) Amer 122 mL/min >60 [facility] Comment on above: GFR Calc Estimated GFR (MDRD) Non-Af Amer 101 mL/min >60 [facility] Comment on above: Non- GFR Calc Platelets bldOrdered By: Dr. Millard on 07-25-2022 Platelets (Bld) [#/Vol] 242 10*3/uL 150-450 [facility] Protein Test strip Ql (U)Ord ered By: Dr. Millard on 07-25-2022 Protein Ql (U) 15 mg/dl Negative [facility] Serum or plasma calcium consuelo urement (mass/volume)Ordered By: Dr. Millard on 07-25-2022 Calcium [Mass/Vol] 9.0 mg/dL 8.5-10.1 [facility] Serum or plasma creatinine m easurement (mass/volume)Ordered By: Dr. Millard on 07-25-2022 Creatinine [Mass/Vol] 0.66 mg/dL 0.55-1.02 [facility] Comment on above: The validity of the calculated GFR & GFRAA in patients over 70 years has not been determined. Clinical correlation is essential. Serum or plasma urea nitroge n measurement (mass/volume)Ordered By: Dr. Millard on 07-25-2022 Urea nitrogen [Mass/Vol] 11 mg/dL 7-18 [facility] Squamous epithelial cells de tection in urine sediment by light microscopyOrdered By: Dr. Millard on 07-25-2022 Epithelial cells.squamous LM Ql (Urine sed) 0-5 SEEN /hpf 5-10 [facility] Thin prep Papanicolaou smear with manual screeningOrdered By: Dr. Millard on 07-25-2022 Thin prep Papanicolaou smear with manual screening 9 5-15 [facility] Urine blood detectionOrdered By: Dr. Millard on 07-25-2022 RBC Ql (U) Negative Negative [facility] RBC Ql (U) 0 SEEN /hpf 0-5 [facility] Urine clarityOrdered By: Dr. Millard on 07-25-2022 Clarity (U) Clear Clear [facility] Urine color determinationOrd ered By: Dr. Millard on 07-25-2022 Color (U) Yellow Yellow [facility] Urine glucose detectionOrder ed By: Dr. Millard on 07-25-2022 Glucose Ql (U) Normal mg/dl Normal [facility] Urine leukocyte esterase det ection by dipstickOrdered By: Dr. Millard on 07-25-2022 Leukocyte esterase Test strip Ql (U) Negative Negative [facility] Urine pHOrdered By: Dr. Tylor londono on 07-25-2022 pH (U) 5.0 [pH] 5.0 - 8.0 [facility] Urine sediment bacteria coun t by microscopy (number/high power field)Ordered By: Dr. Millard on 07-25-2022 Bacteria LM.HPF (Urine sed) [#/Area] 1 /[HPF] None Seen [facility] Urine specific gravity measu rementOrdered By: Dr. Millard on 07-25-2022 Specific gravity (U) [Rel density] 1.025 1.002-1.03 0 [facility] Urobilinogen Auto test strip Ql (U)Ordered By: Dr. Millard on 07-25-2022 Urobilinogen Ql (U) 1 mg/dl Normal [facility] Absolute lymphocyte countOrd ered By: Dr. Mohan on 04-07-2022 Lymphocytes Auto (Unsp spec) [#/Vol] 2.37 10*3/uL 0.83-4.51 [facility] Basophil percentageOrdered B y: Dr. Mohan on 04-07-2022 Basophils/100 WBC (Bld) 0.3 % 0-1 [facility] Chloride [Moles/Vol] 103 mmol/L 98-107 [facility] Eosinophils/100 WBC (Bld) 0.5 % 0-5 [facility] Glucose [Mass/Vol] 86 mg/dL 74-106 [facility] Neutrophils (Bld) [#/Vol] 9.6 10*3/uL 2.0-7.7 [facility] Neutrophils/100 WBC (Bld) 73.9 % 47-70 [facility] Potassium [Moles/Vol] 3.9 mmol/L 3.5-5.1 [facility] Sodium [Moles/Vol] 140 mmol/L 136-145 [facility] WBC (Bld) [#/Vol] 12.9 10*3/uL 4.4-11.0 [facility] Blood erythrocytes count (nu mber/volume)Ordered By: Dr. Mohan on 04-07-2022 RBC (Bld) [#/Vol] 4.85 10*6/uL 4.2-5.4 [facility] Blood hemoglobin measurement (mass/volume)Ordered By: Dr. Mohan on 04-07-2022 Hemoglobin (Bld) [Mass/Vol] 13.4 g/dL 12.0-15.0 [facility] Blood lymphocytes/100 leukoc ytesOrdered By: Dr. Mohan on 04-07-2022 Lymphocytes/100 WBC (Bld) 18.3 % 19-41 [facility] Blood monocytes/100 leukocyt esOrdered By: Dr. Mohan on 04-07-2022 Monocytes/100 WBC (Bld) 6.5 % 0-10 [facility] Blood platelet mean volumeOr dered By: Dr. Mohan on 04-07-2022 Platelet mean volume (Bld) [Entitic vol] 9.5 fL 6.2-12.0 [facility] Determination of erythrocyte mean corpuscular volume (MCV)Ordered By: Dr. Mohan on 04-07-2022 MCV (RBC) [Entitic vol] 84.9 fL 81-99 [facility] Hematocrit Auto (Bld) [Volum e fraction]Ordered By: Dr. Mohan on 04-07-2022 Hematocrit (Bld) [Volume fraction] 41.2 % 37-47 [facility] Laboratory - Chemistry and C hemistry - challengeOrdered By: Dr. Mohan on 04-07-2022 CO2 [Moles/Vol] 30.0 mmol/L 21.0-32.0 [facility] Urea nitrogen/Creatinine [Mass ratio] 18.8 mg/mg 10-20 [facility] Laboratory - Hematology and Cell countsOrdered By: Dr. Mohan on 04-07-2022 Erythrocyte distribution width (RBC) [Entitic vol] 45.8 fL 35.1-43.9 [facility] Erythrocyte distribution width (RBC) [Ratio] 15.0 % 11.6-14.6 [facility] Immature granulocytes/100 WBC (Bld) 0.500 % 0.0-0.9 [facility] Comment on above: IG% - Immature Granu locytes (promyelocytes, myelocytes and metamyelocytes) > 1% indicates that a LEFT SHIFT is Present. MCH (RBC) [Entitic mass] 27.6 pg 27.0-32.0 [facility] Nucleated RBC/100 WBC (Bld) [Ratio] 0 % 0-5 [facility] MCHC Auto (RBC) [Mass/Vol]Or dered By: Dr. Mohan on 04-07-2022 MCHC (RBC) [Mass/Vol] 32.5 g/dL 32-36 [facility] No Panel InformationOrdered By: Dr. Mohan on 04-07-2022 Estimated Creatinine Clearance Calc 62.62 ml/min [facility] Estimated GFR (MDRD) Amer 91 mL/min >60 [facility] Comment on above: GFR Calc Estimated GFR (MDRD) Non-Af Amer 75 mL/min >60 [facility] Comment on above: Non- GFR Calc Troponin I High Sensitivity 4 pg/mL 3.0-54.0 [facility] Comment on above: Please Note: New Clarissa t Units and Gender Specific Reference Ranges. For more information see Policy Stat Procedure [place] High Sensitivity Troponin (TNIH) and attachments. Platelets bldOrdered By: Dr. Mohan on 04-07-2022 Platelets (Bld) [#/Vol] 294 10*3/uL 150-450 [facility] Serum or plasma calcium consuelo urement (mass/volume)Ordered By: Dr. Mohan on 04-07-2022 Calcium [Mass/Vol] 8.9 mg/dL 8.5-10.1 [facility] Serum or plasma creatinine m easurement (mass/volume)Ordered By: Dr. Mohan on 04-07-2022 Creatinine [Mass/Vol] 0.85 mg/dL 0.55-1.02 [facility] Comment on above: The validity of the calculated GFR & GFRAA in patients over 70 years has not been determined. Clinical correlation is essential. Serum or plasma urea nitroge n measurement (mass/volume)Ordered By: Dr. Mohan on 04-07-2022 Urea nitrogen [Mass/Vol] 16 mg/dL 7-18 [facility] Thin prep Papanicolaou smear with manual screeningOrdered By: Dr. Mohan on 04-07-2022 Thin prep Papanicolaou smear with manual screening 7 5-15 [facility] ANES POSTPROC EVALon 023 ANES POSTPROC EVAL HNO ID: [id number] Author: Max Sen MD Service: ? Author Type: Anesthesiologist Type: Anesthesia Postprocedure Evaluation Filed: 03/29/2022 9:05 AM Note Text: POST ANESTHESIA EVALUATION NOTE : 1970 Procedure Summary Date: 03/22/22 Room / Location: TX OR / TX OR Anesthesia Start: 1447 Anesthesia Stop: 1519 Procedures: DECOMPRESSION NERVE MEDIAN CARPAL TUNNEL (Left: [...] Documentation SIGNATURE: Max Sen MD PATIENT NAME: Clarisa Ann DATE: March 29, 2022 TIME: 9:04 AM CSN: [id number] [facility] ANES PRE-OPon 03-22-2022 ANES PRE-OP HNO ID: [id number] Author: Max Sen MD Service: ? Author Type: Anesthesiologist Type: Anesthesia Preprocedure Evaluation Filed: 03/22/2022 1:33 PM Note Text: ANESTHESIOLOGY DAY OF SURGERY NOTE : 1970 Procedure Information Date/Time: 03/22/22 1425 Procedures: DECOMPRESSION NERVE MEDIAN CARPAL TUNNEL (Left: Wrist) INJECTION SHOULDER LEFT - NO C-ARM (Left: Shoulder) Location: [place] OR01 / [place] OR Surgeons: Charlie Draper MD Estimated body mass index is 43.91 kg/m? as calculated from the following: Height as of 03/08/22: 158.5 cm (5' 2.4). Weight as of 03/08/22: 110.3 kg (243 [...] as directed. Dx (more content not included)... Normal [facility] OPERATIVE NOon 03-22-2022 OPERATIVE NO HNO ID: [id number] Author: Charlie Draper MD Service: Orthopaedic Surgery Author Type: Physician Type: Operative Report Filed: 03/27/2022 12:55 PM Note Text: OPERATIVE/PROCEDURE REPORT LOG ID: [id number] SURGERY/PROCEDURE DATE: 03/22/2022 INCISION/PROCEDURE START TIME: 3:04 PM INCISION CLOSE/PROCEDURE END TIME: 3:17 PM SURGEON(S)/PROCEDURALIST( S) AND GENETIC TECHNOLOGIST(S): Surgeon(s) and Role: * Charlie Draper MD - Primary Physician Deli Department Manager: Lyudmila Lynch PA-C SURGERY/PROCEDURE(S): OPERATION: 1. Left [...] resistance. Subsequently, I selected a mini meniscotome [place] blade and slid this in the protective guide, completely dividing the transverse carpal ligament. Marlyn rakes were used to view up the wound to visualize for complete release and a [place] elevator was used to palpate for complete [...] procedure. SIGNATURE: Charlie Draper MD PATIENT NAME: Clarisa Ann DATE: March 27, 2022 TIME: 12:51 PM [facility] XR Cervical spine AP and Lat eral and obliqueon 02-19-2022 IMPRESSION: As above Head Cook: LEON Transcribe Date/Time: Feb 19 2022 5:29P Dictated by : SUHAIL SERNA MD This examination was interpreted and the report reviewed and electronically signed by: SUHAIL SERNA MD on Feb 19 2022 6:25PM [facility] DIVISION OF RADIOLOGY * * *Final Report* [...] and C6/7 levels. DIVISION OF RADIOLOGY Provider, [facility] - 02/19/2022 * * *Final Report* * [...] and C6/7 levels. IMPRESSION IMPRESSION: As above Head Cook: LEON Transcribe Date/Time: Feb 19 2022 5:29P Dictated by : SUHAIL SERNA MD This examination was interpreted and the report reviewed and electronically signed by: SUHAIL SERNA MD on Feb 19 2022 6:25PM EST [facility] XR Cervical spine AP and Lat eral and obliqueOrdered By: [facility] Provider on 02-19-2022 [facility] XR Cervical spine AP and Lat eral and obliqueon 02-17-2022 Radiology Study observation (narrative) [facility] Throat Streptococcus pyogene s antigen detection by immunofluorescenceOrdered By: Dr. Mascorro on 12-10-2021 S. pyogenes Ag IF Ql (Throat) [facility] Absolute lymphocyte countOrd ered By: Dr. Mascorro on 12-08-2021 Lymphocytes Auto (Unsp spec) [#/Vol] 1.87 10*3/uL 0.83-4.51 [facility] Basophil percentageOrdered B y: Dr. Mascorro on 12-08-2021 Basophils/100 WBC (Bld) 0.5 % 0-1 [facility] Bilirubin [Mass/Vol] 0.20 mg/dL 0.20-1.00 [facility] Comment on above: For patients on eltr ombopag therapy, use of Dimension [place] TBIL is not recommended. Chloride [Moles/Vol] 105 mmol/L 98-107 [facility] Eosinophils/100 WBC (Bld) 0.0 % 0-5 [facility] Glucose [Mass/Vol] 98 mg/dL 74-106 [facility] Neutrophils (Bld) [#/Vol] 5.0 10*3/uL 2.0-7.7 [facility] Neutrophils/100 WBC (Bld) 66.3 % 47-70 [facility] Potassium [Moles/Vol] 3.9 mmol/L 3.5-5.1 [facility] Protein [Mass/Vol] 7.4 g/dL 6.4-8.2 [facility] Sodium [Moles/Vol] 138 mmol/L 136-145 [facility] WBC (Bld) [#/Vol] 7.5 10*3/uL 4.4-11.0 [facility] Blood erythrocytes count (nu mber/volume)Ordered By: Dr. Mascorro on 12-08-2021 RBC (Bld) [#/Vol] 4.51 10*6/uL 4.2-5.4 [facility] Blood hemoglobin measurement (mass/volume)Ordered By: Dr. Mascorro on 12-08-2021 Hemoglobin (Bld) [Mass/Vol] 12.7 g/dL 12.0-15.0 [facility] Blood lymphocytes/100 leukoc ytesOrdered By: Dr. Mascorro on 12-08-2021 Lymphocytes/100 WBC (Bld) 25.0 % 19-41 [facility] Blood monocytes/100 leukocyt esOrdered By: Dr. Mascorro on 12-08-2021 Monocytes/100 WBC (Bld) 7.7 % 0-10 [facility] Blood platelet mean volumeOr dered By: Dr. Mascorro on 12-08-2021 Platelet mean volume (Bld) [Entitic vol] 9.8 fL 6.2-12.0 [facility] Determination of erythrocyte mean corpuscular volume (MCV)Ordered By: Dr. Mascorro on 12-08-2021 MCV (RBC) [Entitic vol] 83.8 fL 81-99 [facility] Hematocrit Auto (Bld) [Volum e fraction]Ordered By: Dr. Mascorro on 12-08-2021 Hematocrit (Bld) [Volume fraction] 37.8 % 37-47 [facility] Influenza virus A and B and SARS-CoV-2 (COVID-19) Ag panel - Upper respiratory specimOrdered By: Dr. Mascorro on 12-08-2021 SARS-CoV-2 (COVID-19) RNA AYAZ+probe Ql (Resp) [facility] Laboratory - Chemistry and C hemistry - challengeOrdered By: Dr. Mascorro on 12-08-2021 ALP [Catalytic activity/Vol] 122 U/L 45-117 [facility] ALT [Catalytic activity/Vol] 23 U/L 13-56 [facility] CO2 [Moles/Vol] 27.0 mmol/L 21.0-32.0 [facility] Globulin (S) [Mass/Vol] 4.3 g/dL 2.2-4.2 [facility] Urea nitrogen/Creatinine [Mass ratio] 10.7 mg/mg 10-20 [facility] Laboratory - Hematology and Cell countsOrdered By: Dr. Mascorro on 12-08-2021 Erythrocyte distribution width (RBC) [Entitic vol] 43.8 fL 35.1-43.9 [facility] Erythrocyte distribution width (RBC) [Ratio] 14.3 % 11.6-14.6 [facility] Immature granulocytes/100 WBC (Bld) 0.500 % 0.0-0.9 [facility] Comment on above: IG% - Immature Granu locytes (promyelocytes, myelocytes and metamyelocytes) > 1% indicates that a LEFT SHIFT is Present. MCH (RBC) [Entitic mass] 28.2 pg 27.0-32.0 [facility] Nucleated RBC/100 WBC (Bld) [Ratio] 0 % 0-5 [facility] MCHC Auto (RBC) [Mass/Vol]Or dered By: Dr. Mascorro on 12-08-2021 MCHC (RBC) [Mass/Vol] 33.6 g/dL 32-36 [facility] No Panel InformationOrdered By: Dr. Mascorro on 12-08-2021 Estimated Creatinine Clearance Calc 70.98 ml/min [facility] Estimated GFR (MDRD) Amer 106 mL/min >60 [facility] Comment on above: GFR Calc Estimated GFR (MDRD) Non-Af Amer 87 mL/min >60 [facility] Comment on above: Non- GFR Calc Platelets bldOrdered By: Dr. Mascorro on 12-08-2021 Platelets (Bld) [#/Vol] 257 10*3/uL 150-450 [facility] Serum or plasma albumin consuelo urement (mass/volume)Ordered By: Dr. Mascorro on 12-08-2021 Albumin [Mass/Vol] 3.1 g/dL 3.2-5.0 [facility] Serum or plasma albumin/glob ulin mass ratioOrdered By: Dr. Mascorro on 12-08-2021 Albumin/Globulin [Mass ratio] 0.7 {ratio} 0.9-2.4 [facility] Serum or plasma calcium consuelo urement (mass/volume)Ordered By: Dr. Mascorro on 12-08-2021 Calcium [Mass/Vol] 9.0 mg/dL 8.5-10.1 [facility] Serum or plasma creatinine m easurement (mass/volume)Ordered By: Dr. Mascorro on 12-08-2021 Creatinine [Mass/Vol] 0.75 mg/dL 0.55-1.02 [facility] Comment on above: The validity of the calculated GFR & GFRAA in patients over 70 years has not been determined. Clinical correlation is essential. Serum or plasma urea nitroge n measurement (mass/volume)Ordered By: Dr. Mascorro on 12-08-2021 Urea nitrogen [Mass/Vol] 8 mg/dL 7-18 [facility] Thin prep Papanicolaou smear with manual screeningOrdered By: Dr. Mascorro on 12-08-2021 Thin prep Papanicolaou smear with manual screening 13 U/L 15-37 [facility] Thin prep Papanicolaou smear with manual screening 6 5-15 [facility] XR CHEST 2V FRONTAL/LATon [facility] XR Chest PA and Lateralon IMPRESSION: No acute radiographic abnormality. Head Cook: LEON Transcribe Date/Time: Dec 05 2021 12:03P Dictated by : SKYLAR STRICKLAND MD This examination was interpreted and the report reviewed and electronically signed by: SKYLAR STRICKLAND MD on Dec 05 2021 12:03PM [facility] DIVISION OF RADIOLOGY * * *Final Report* [...] soft tissues: Unremarkable. DIVISION OF RADIOLOGY Provider, Stephany Holli Engel - 12/05/2021 * * *Final Report* * [...] Unremarkable. IMPRESSION IMPRESSION: No acute radiographic abnormality. Head Cook: PSCB Transcribe Date/Time: Dec 05 2021 12:03P Dictated by : SKYLAR STRICKLAND MD This examination was interpreted and the report reviewed and electronically signed by: SKYLAR STRICKLAND MD on Dec 05 2021 12:03PM [facility] Radiology Study observation (narrative) [facility] XR Chest PA and LateralOrder ed By: [facility] Provider on 12-05-2021 [facility] Absolute lymphocyte counton 11-30-2021 Lymphocytes Auto (Unsp spec) [#/Vol] 1.48 10*3/uL 0.83-4.51 [facility] Work Phone: Basophil percentageon 2021 Basophils/100 WBC (Bld) 0.3 % 0-1 [facility] Work Phone: Eosinophils/100 WBC (Bld) 0.0 % 0-5 [facility] Work Phone: Neutrophils (Bld) [#/Vol] 5.7 10*3/uL 2.0-7.7 [facility] Work Phone: Neutrophils/100 WBC (Bld) 74.2 % 47-70 [facility] Work Phone: WBC (Bld) [#/Vol] 7.7 10*3/uL 4.4-11.0 [facility] Work Phone: Blood erythrocytes count (nu mber/volume)on 11-30-2021 RBC (Bld) [#/Vol] 4.78 10*6/uL 4.2-5.4 [facility] Work Phone: Blood hemoglobin measurement (mass/volume)on 11-30-2021 Hemoglobin (Bld) [Mass/Vol] 13.1 g/dL 12.0-15.0 [facility] Work Phone: Blood lymphocytes/100 leukoc yteson 11-30-2021 Lymphocytes/100 WBC (Bld) 19.3 % 19-41 [facility] Work Phone: Blood monocytes/100 leukocyt eson 11-30-2021 Monocytes/100 WBC (Bld) 5.9 % 0-10 [facility] Work Phone: Blood platelet mean volumeon 11-30-2021 Platelet mean volume (Bld) [Entitic vol] 10.4 fL 6.2-12.0 [facility] Work Phone: Determination of erythrocyte mean corpuscular volume (MCV)on 11-30-2021 MCV (RBC) [Entitic vol] 84.9 fL 81-99 [facility] Work Phone: Erythrocyte sedimentation ra julian 11-30-2021 ESR (Bld) [Velocity] 33 mm/h 0-30 [facility] Work Phone: Hematocrit Auto (Bld) [Volum e fraction]on 11-30-2021 Hematocrit (Bld) [Volume fraction] 40.6 % 37-47 [facility] Work Phone: Hemoglobin in reticulocytes (mass per reticulocyte)on 11-30-2021 Hemoglobin (Reticulocytes) [Entitic mass] 30.1 pg 30-35 [facility] Work Phone: Iron measurement (mass/mass) on 11-30-2021 Iron (Unsp spec) [Mass/Mass] 62 ug/dL 50-170 [facility] Work Phone: Laboratory - Chemistry and C hemistry - challengeon 11-30-2021 CK [Catalytic activity/Vol] 55 U/L 26-192 [facility] Work Phone: Laboratory - Hematology and Cell countson 11-30-2021 Erythrocyte distribution width (RBC) [Entitic vol] 44.3 fL 35.1-43.9 [facility] Work Phone: Erythrocyte distribution width (RBC) [Ratio] 14.2 % 11.6-14.6 [facility] Work Phone: Immature granulocytes/100 WBC (Bld) 0.300 % 0.0-0.9 [facility] Work Phone: Comment on above: IG% - Immature Granu locytes (promyelocytes, myelocytes and metamyelocytes) > 1% indicates that a LEFT SHIFT is Present. MCH (RBC) [Entitic mass] 27.4 pg 27.0-32.0 [facility] Work Phone: Nucleated RBC/100 WBC (Bld) [Ratio] 0 % 0-5 [facility] Work Phone: Laboratory - Microbiology an d Antimicrobial susceptibilityon 11-30-2021 SARS-CoV-2 (COVID-19) RNA AYAZ+probe Ql (Unsp spec) Not detected [facility] Work Phone: MCHC Auto (RBC) [Mass/Vol]on 11-30-2021 MCHC (RBC) [Mass/Vol] 32.3 g/dL 32-36 [facility] Work Phone: No Panel Informationon 11-30 Influenza Types A,B Rapid (Clinic) Not detected [facility] Work Phone: Immature Reticulocyte Fraction 13.50 % 3.00-15.90 [facility] Work Phone: Reticulocyte Count 1.22 % 0.5-1.5 [facility] Work Phone: Tissue Transglutaminase IgG Ab <2 U/mL 0-5 [facility] Work Phone: Comment on above: Negative 0 - 5 Weak Positive 6 - 9 Positive >9Performed at: [address] [id number] Director: Yasmany Lara PhD, Phone: [phone] Total Iron Binding Capacity 363 ug/dL 250-450 [facility] Work Phone: Platelets bldon 11-30-2021 Platelets (Bld) [#/Vol] 267 10*3/uL 150-450 [facility] Work Phone: Serum or plasma C reactive p rotein measurement (mass/volume)on 11-30-2021 CRP [Mass/Vol] 28.70 mg/L 0.0-3.0 [facility] Work Phone: Comment on above: C-Reactive Protein ( CRP) provides useful information for thediagnosis, therapy and monitoring of inflammatory processesand associated diseases. For the evaluation of Relative Riskfor Cardiovascular Disease, a High Sensitivity CRP (HSCRP)should be ordered. Serum or plasma ferritin michelle surement (mass/volume)on 11-30-2021 Ferritin [Mass/Vol] 50 ng/mL 8-252 [facility] Work Phone: Serum or plasma iron saturat ion measurement (mass fraction)on 11-30-2021 Iron saturation [Mass fraction] 17.1 % 15.0-55.0 [facility] Work Phone: UA DIP, URINE (POC)on 2021 BILIRUBIN UA (POCT) Negative Negative [facility] CLARITY UA (POCT) Clear [facility] COLOR UA (POCT) Yellow [facility] GLUCOSE UA (POCT) Negative Negative mg/dL [facility] HEMOGLOBIN/BLOOD UA (POCT) Negative Negative [facility] KETONE UA (POCT) Negative Negative mg/dL [facility] LEUKOCYTES UA (POCT) Negative Negative [facility] NITRITE UA (POCT) Negative Negative [facility] PH UA (POCT) 5.5 4.5 - 8.0 [facility] Protein Ql (U) Negative Negative mg/dL [facility] SPECIFIC GRAVITY UA (POCT) >=1.030 1.005 - 1.030 [facility] UROBILINOGEN UA (POCT) 0.2 E.U./dL Tess l E.U./dL [facility] No Panel Informationon 10-20 Stool Calprotectin 27 ug/g 0-120 [facility] Work Phone: Comment on above: Concentration Interp retation Follow-Up<16 - 50 ug/g Normal None>50 -120 ug/g Borderline Re-evaluate in 4-6 weeks >120 ug/g Abnormal Repeat as clinically indicatedPerformed at: [email or web address] [id number] [place], [place] [id number] Director: Yasmany Lara PhD, Phone: [phone] at: [employer] [id number] Director: Emeka Contreras MD, Phone: [phone] Stool Neutral Fats Normal . [facility] Work Phone: Comment on above: Normal (<60 Droplets /HPF) Stool Pancreatic Elastase 183 >200 [facility] Work Phone: Comment on above: Result Units: ug [address]tha st./g Severe Pancreatic Insufficiency: <100 Moderate Pancreatic Insufficiency: 100 - 200 Normal: >200Performed at: [employer] [id number] Director: Emeka Contreras MD, Phone: [phone] Qualitative fecal fat or lip idson 10-20-2021 Fat Ql (Stl) Normal . [facility] Work Phone: Comment on above: Normal (<100 Droplet s/HPF) Absolute lymphocyte counton 10-19-2021 Lymphocytes Auto (Unsp spec) [#/Vol] 1.30 10*3/uL 0.83-4.51 [facility] Work Phone: Albumin Elph [Mass/Vol]on Albumin [Mass/Vol] 3.3 g/dL 2.9-4.4 [facility] Work Phone: Atypical perinuclear antineu trophil cytoplasmic antibodies measurementon 10-19-2021 Neutrophil cytoplasmic Ab.perinuclear.atypical IF (S) [Titer] <1:20 titer Neg:<1:20 [facility] Work Phone: Comment on above: The atypical pANCA p attern has been observed in asignificant percentage of patients with ulcerative colitis,primary sclerosing cholangitis and autoimmune hepatitis.Performed at: [email or web address] [address] [id number] Director: Yasmany Lara PhD, Phone: [phone] at: [address] [id number] Director: Emeka Contreras MD, Phone: [phone] Basophil percentageon 2021 Amylase [Catalytic activity/Vol] 48 U/L 25-115 [facility] Work Phone: Basophil percentage < 0.2 AI 0.0-0.9 [facility] Work Phone: Basophils/100 WBC (Bld) 0.2 % 0-1 [facility] Work Phone: Bilirubin [Mass/Vol] 0.30 mg/dL 0.20-1.00 [facility] Work Phone: Comment on above: For patients on eltr ombopag therapy, use of Dimension [place] TBIL is not recommended. Chloride [Moles/Vol] 106 mmol/L 98-107 [facility] Work Phone: Eosinophils/100 WBC (Bld) 0.0 % 0-5 [facility] Work Phone: Glucose [Mass/Vol] 87 mg/dL 74-106 [facility] Work Phone: Neutrophils (Bld) [#/Vol] 4.3 10*3/uL 2.0-7.7 [facility] Work Phone: Neutrophils/100 WBC (Bld) 70.5 % 47-70 [facility] Work Phone: Potassium [Moles/Vol] 3.9 mmol/L 3.5-5.1 [facility] Work Phone: Protein [Mass/Vol] 7.5 g/dL 6.4-8.2 [facility] Work Phone: Sodium [Moles/Vol] 137 mmol/L 136-145 [facility] Work Phone: WBC (Bld) [#/Vol] 6.1 10*3/uL 4.4-11.0 [facility] Work Phone: Blood erythrocytes count (nu mber/volume)on 10-19-2021 RBC (Bld) [#/Vol] 4.85 10*6/uL 4.2-5.4 [facility] Work Phone: Blood hemoglobin measurement (mass/volume)on 10-19-2021 Hemoglobin (Bld) [Mass/Vol] 13.3 g/dL 12.0-15.0 [facility] Work Phone: Blood lymphocytes/100 leukoc yteson 10-19-2021 Lymphocytes/100 WBC (Bld) 21.3 % 19-41 [facility] Work Phone: Blood monocytes/100 leukocyt eson 10-19-2021 Monocytes/100 WBC (Bld) 7.7 % 0-10 [facility] Work Phone: Blood platelet mean volumeon 10-19-2021 Platelet mean volume (Bld) [Entitic vol] 10.2 fL 6.2-12.0 [facility] Work Phone: Determination of erythrocyte mean corpuscular volume (MCV)on 10-19-2021 MCV (RBC) [Entitic vol] 84.5 fL 81-99 [facility] Work Phone: Erythrocyte sedimentation ra julian 10-19-2021 ESR (Bld) [Velocity] 48 mm/h 0-30 [facility] Work Phone: Hematocrit Auto (Bld) [Volum e fraction]on 10-19-2021 Hematocrit (Bld) [Volume fraction] 41.0 % 37-47 [facility] Work Phone: Interpretation of serum or p lasma protein pattern by immunofixation (narrative resulton 10-19-2021 Protein Fractions Immunofixation Storm [Interp] See comment [facility] Work Phone: Comment on above: Result: Not Observed Laboratory - Chemistry and C hemistry - challengeon 10-19-2021 ALP [Catalytic activity/Vol] 116 U/L 45-117 [facility] Work Phone: ALT [Catalytic activity/Vol] 24 U/L 13-56 [facility] Work Phone: Amylase [Catalytic activity/Vol] 61 U/L 5-55 [facility] Work Phone: CO2 [Moles/Vol] 26.0 mmol/L 21.0-32.0 [facility] Work Phone: Globulin (S) [Mass/Vol] 4.3 g/dL 2.2-4.2 [facility] Work Phone: Lipase [Catalytic activity/Vol] 70 U/L 73-393 [facility] Work Phone: Urea nitrogen/Creatinine [Mass ratio] 12.0 mg/mg 10-20 [facility] Work Phone: Laboratory - Hematology and Cell countson 10-19-2021 Erythrocyte distribution width (RBC) [Entitic vol] 44.3 fL 35.1-43.9 [facility] Work Phone: Erythrocyte distribution width (RBC) [Ratio] 14.6 % 11.6-14.6 [facility] Work Phone: Immature granulocytes/100 WBC (Bld) 0.300 % 0.0-0.9 [facility] Work Phone: Comment on above: IG% - Immature Granu locytes (promyelocytes, myelocytes and metamyelocytes) > 1% indicates that a LEFT SHIFT is Present. MCH (RBC) [Entitic mass] 27.4 pg 27.0-32.0 [facility] Work Phone: Nucleated RBC/100 WBC (Bld) [Ratio] 0 % 0-5 [facility] Work Phone: MCHC Auto (RBC) [Mass/Vol]on 10-19-2021 MCHC (RBC) [Mass/Vol] 32.4 g/dL 32-36 [facility] Work Phone: No Panel Informationon 10-19 Addendum Document Comment . [facility] Work Phone: Comment on above: Protein electrophore sis scan will follow via computer,mail, or artificial breeding distributor delivery. [employer] Antibody <0.2 AI 0.0-0.9 [facility] Work Phone: Endomysial IgA Antibody Negative Negative [facility] Work Phone: Estimated GFR (MDRD) Amer 83 mL/min >60 [facility] Work Phone: Comment on above: GFR Calc Estimated GFR (MDRD) Non-Af Amer 69 mL/min >60 [facility] Work Phone: Comment on above: Non- GFR Calc Immunoglobulin E 3 IU/mL 6-495 [facility] Work Phone: MAILING MANAGER Antibody 0.2 AI 0.0-0.9 [facility] Work Phone: Platelets bldon 10-19-2021 Platelets (Bld) [#/Vol] 250 10*3/uL 150-450 [facility] Work Phone: Serum DNA double strand anti body assay (units/volume)on 10-19-2021 DNA double strand Ab Qn (S) 1 [IU]/mL 0-9 [facility] Work Phone: Comment on above: Negative <5 Equivoca l 5 - 9 Positive >9 Serum IgA measurement (units /volume)on 10-19-2021 IgA Qn (S) 77 mg/dL 87-352 [facility] Work Phone: Serum Tiana-1 antibody assay (u nits/volume)on 10-19-2021 Tiana-1 extractable nuclear Ab Qn (S) <0.2 AI 0.0-0.9 [facility] Work Phone: Serum Scl-70 extractable nuc lear antibody assay (units/volume)on 10-19-2021 SCL-70 extractable nuclear Ab Qn (S) <0.2 AI 0.0-0.9 [facility] Work Phone: Serum Koehler extractable nucl ear antibody detectionon 10-19-2021 Koehler extractable nuclear Ab Ql (S) <0.2 AI 0.0-0.9 [facility] Work Phone: Serum yenpm-3-shdasfwg measu rement by electrophoresison 10-19-2021 Alpha 1 globulin Elph [Mass/Vol] 0.3 g/dL 0.0-0.4 [facility] Work Phone: Alpha 1 globulin Elph [Mass/Vol] 1.0 g/dL 0.4-1.0 [facility] Work Phone: Serum classic neutrophil cyt oplasmic antibody assay (units/volume)on 10-19-2021 Neutrophil cytoplasmic Ab.classic Qn (S) <1:20 titer Neg:<1:20 [facility] Work Phone: Serum globulin measurement ( mass/volume)on 10-19-2021 Globulin (S) [Mass/Vol] 3.5 g/dL 2.2-3.9 [facility] Work Phone: Serum or plasma C reactive p rotein measurement (mass/volume)on 10-19-2021 CRP [Mass/Vol] 31.00 mg/L 0.0-3.0 [facility] Work Phone: Comment on above: C-Reactive Protein ( CRP) provides useful information for thediagnosis, therapy and monitoring of inflammatory processesand associated diseases. For the evaluation of Relative Riskfor Cardiovascular Disease, a High Sensitivity CRP (HSCRP)should be ordered. Serum or plasma IgA measurem ent (mass/volume)on 10-19-2021 IgA [Mass/Vol] 79 mg/dL 87-352 [facility] Work Phone: Serum or plasma IgG measurem ent (mass/volume)on 10-19-2021 IgG [Mass/Vol] 1049 mg/dL [phone] [facility] Work Phone: Serum or plasma IgM measurem ent (mass/volume)on 10-19-2021 IgM [Mass/Vol] 120 mg/dL 26-217 [facility] Work Phone: Serum or plasma albumin consuelo urement (mass/volume)on 10-19-2021 Albumin [Mass/Vol] 3.2 g/dL 3.2-5.0 [facility] Work Phone: Serum or plasma albumin/glob ulin mass ratioon 10-19-2021 Albumin/Globulin [Mass ratio] 0.7 {ratio} 0.9-2.4 [facility] Work Phone: Serum or plasma beta globuli n measurement by electrophoresis (mass/volume)on 10-19-2021 Beta globulin Elph [Mass/Vol] 1.2 g/dL 0.7-1.3 [facility] Work Phone: Serum or plasma calcium consuelo urement (mass/volume)on 10-19-2021 Calcium [Mass/Vol] 9.0 mg/dL 8.5-10.1 [facility] Work Phone: Serum or plasma creatinine m easurement (mass/volume)on 10-19-2021 Creatinine [Mass/Vol] 0.92 mg/dL 0.55-1.02 [facility] Work Phone: Comment on above: The validity of the calculated GFR & GFRAA in patients over 70 years has not been determined. Clinical correlation is essential. Serum or plasma gamma globul in measurement by electrophoresis (mass/volume)on 10-19-2021 Gamma globulin Elph [Mass/Vol] 1.0 g/dL 0.4-1.8 [facility] Work Phone: Serum or plasma immunoelectr ophoresis interpretation (nominal result)on 10-19-2021 Interpretation IEP [Interp] Comment . [facility] Work Phone: Comment on above: No monoclonality det ected. Serum or plasma urea nitroge n measurement (mass/volume)on 10-19-2021 Urea nitrogen [Mass/Vol] 11 mg/dL 7-18 [facility] Work Phone: Serum perinuclear neutrophil cytoplasmic antibody titer by immunofluorescenceon 10-19-2021 Neutrophil cytoplasmic Ab.perinuclear IF (S) [Titer] <1:20 titer Neg:<1:20 [facility] Work Phone: Comment on above: The presence of posi tive fluorescence exhibiting P-ANCA orC-ANCA patterns alone is not specific for the diagnosis ofWegener's Granulomatosis (WG) or microscopic polyangiitis.Decisions about treatment should not be based solely onANCA IFA results. The International ANCA Group Consensusrecommends follow up testing of positive sera with both UT-3 and MPO-ANCA enzyme immunoassays. As many as 5% serumsamples are positive only by EIA. Ref. AM J Clin [id number];111:507-513. Serum tissue transglutaminas e IgA antibody assay (units/volume)on 10-19-2021 tTG IgA Qn (S) <2 U/mL 0-3 [facility] Work Phone: Comment on above: Negative 0 - 3 Weak Positive 4 - 10 Positive >10 Tissue Transglutaminase (tTG) has been identified as the endomysial antigen. Studies have demonstr- ated that endomysial IgA antibodies have over 99% specificity for gluten sensitive enteropathy. Thin prep Papanicolaou smear with manual screeningon 10-19-2021 Thin prep Papanicolaou smear with manual screening 17 U/L 15-37 [facility] Work Phone: Thin prep Papanicolaou smear with manual screening 5 5-15 [facility] Work Phone: Thin prep Papanicolaou smear with manual screening 198 U/L 84-246 [facility] Work Phone: Thin prep Papanicolaou smear with manual screening 1.0 0.7-1.7 [facility] Work Phone: Total protein bloodon 2021 Protein [Mass/Vol] 6.8 g/dL 6.0-8.5 [facility] Work Phone: CBC W Auto Differential pane l (Bld)on 07-08-2021 Abs Immature Gran 0.04 k/uL <0.10 k/uL [facility] Basophils (Bld) [#/Vol] 0.04 10*3/uL <0.11 k/uL [facility] Basophils/100 WBC (Bld) 0.5 % [facility] Differential cell count method Nom (Bld) Auto [facility] Eosinophils (Bld) [#/Vol] 0.10 10*3/uL <0.46 k/uL [facility] Eosinophils/100 WBC (Bld) 1.3 % [facility] Erythrocyte distribution width (RBC) [Ratio] 13.8 % 11.5 - 15.0 % [facility] Hematocrit (Bld) [Volume fraction] 39.7 % 36.0 - 46.0 % [facility] Hemoglobin (Bld) [Mass/Vol] 12.7 g/dL 11.5 - 15.5 g/dL [facility] Immature Gran % 0.5 % [facility] Lymphocytes (Bld) [#/Vol] 1.70 10*3/uL 1.00 - 4.00 k/uL [facility] Lymphocytes/100 WBC (Bld) 22.6 % [facility] MCH (RBC) [Entitic mass] 27.5 pg 26. 0 - 34.0 pg [facility] MCHC (RBC) [Mass/Vol] 32.0 g/dL 30.5 - 36.0 g/dL [facility] MCV (RBC) [Entitic vol] 86.1 fL 80.0 - 100.0 fL [facility] Monocytes (Bld) [#/Vol] 0.45 10*3/uL <0.87 k/uL [facility] Monocytes/100 WBC (Bld) 6.0 % [facility] Neutrophils (Bld) [#/Vol] 5.19 10*3/uL 1.45 - 7.50 k/uL [facility] Neutrophils/100 WBC (Bld) 69.1 % [facility] Nucleated RBC (Bld) [#/Vol] 10*3/uL <0.01 k/uL [facility] Nucleated RBC/100 WBC (Bld) [Ratio] 0.0 /100 WBC [facility] Platelet mean volume (Bld) [Entitic vol] 10.3 fL 9.0 - 12.7 fL [facility] Platelets (Bld) [#/Vol] 280 10*3/uL 150 - 400 k/uL [facility] RBC (Bld) [#/Vol] 4.61 10*6/uL 3.90 - 5.20 m/uL [facility] WBC (Bld) [#/Vol] 7.52 10*3/uL 3.70 - 11.00 k/uL [facility] Comprehensive metabolic 2000 panelon 07-08-2021 Albumin [Mass/Vol] 3.8 g/dL Low 3.9 - 4.9 g/dL [facility] ALP [Catalytic activity/Vol] 119 U/L 34 - 123 U/L [facility] ALT [Catalytic activity/Vol] 18 U/L 7 - 38 U/L [facility] Anion gap [Moles/Vol] 9 mmol/L 9 - 18 mmol/L [facility] AST [Catalytic activity/Vol] 15 U/L 13 - 35 U/L [facility] Bilirubin [Mass/Vol] 0.2 mg/dL 0.2 - 1 .3 mg/dL [facility] Calcium [Mass/Vol] 9.2 mg/dL 8.5 - 10. 2 mg/dL [facility] Chloride [Moles/Vol] 103 mmol/L 97 - 10 5 mmol/L [facility] CO2 [Moles/Vol] 27 mmol/L 22 - 30 mmol/L [facility] Creatinine [Mass/Vol] 0.72 mg/dL 0.58 - 0.96 mg/dL [facility] Estimated Glomerular Filtration Rate 102 mL/min/1.73m >=60 mL/min/1.7 3m [facility] Glucose [Mass/Vol] 97 mg/dL 74 - 99 mg/dL [facility] Potassium [Moles/Vol] 4.3 mmol/L 3.7 - 5.1 mmol/L [facility] Protein [Mass/Vol] 7.3 g/dL 6.3 - 8.0 g/dL [facility] Sodium [Moles/Vol] 139 mmol/L 136 - 144 mmol/L [facility] Urea nitrogen [Mass/Vol] 8 mg/dL 7 - 21 mg/dL [facility] FERRITIN [facility] 07-08-2021 Ferritin [Mass/Vol] 93.5 ng/mL 14.7 - 205.1 ng/mL [facility] FSH [facility] 07-08-2021 Follitropin Qn 8.2 m[IU]/mL See comment mIU/mL [facility] IRON + TIBCon 07-08-2021 Iron [Mass/Vol] 34 ug/dL Low 41 - 186 ug/dL [facility] Iron binding capacity [Mass/Vol] 378 ug/dL 232 - 386 ug/dL [facility] Iron/TIBC [Molar ratio] 9 % Low 15 - 57 % [facility] T3 FREE BLDon 07-08-2021 Free T3 [Mass/Vol] 3.0 pg/mL 2.3 - 4.1 pg/mL [facility] T4 FREE/FREE THYROXon 2021 Free T4 [Mass/Vol] 0.9 ng/dL 0.9 - 1.7 ng/dL [facility] TSH Don 07-08-2021 TSH Qn 1.780 m[IU]/L 0.270 - 4.200 mIU/L [facility] VITAMIN B12 BLOODon 07-09-19 Cobalamin (Vitamin B12) [Mass/Vol] 1230 pg/mL 232-1,245 pg/mL [facility] VITAMIN D 25 HYDROXYon 07-08 25-hydroxyvitamin D3 [Mass/Vol] 37.8 ng/mL 31.0 - 80.0 ng/mL [facility] Absolute lymphocyte counton 06-26-2021 Lymphocytes Auto (Unsp spec) [#/Vol] 2.37 10*3/uL 0.83-4.51 [facility] Work Phone: Basophil percentageon 2021 Basophil percentage 0 SEEN /hpf [facility] Work Phone: Basophils/100 WBC (Bld) 0.6 % 0-1 [facility] Work Phone: Bilirubin [Mass/Vol] 0.10 mg/dL 0.20-1.00 [facility] Work Phone: [phone] Comment on above: For patients on eltr ombopag therapy, use of Dimension Angora TBIL is not recommended. Chloride [Moles/Vol] 109 mmol/L 98-107 [facility] Work Phone: Eosinophils/100 WBC (Bld) 1.3 % 0-5 [facility] Work Phone: Glucose [Mass/Vol] 105 mg/dL 74-106 [facility] Work Phone: Comment on above: Fasting Glucose resu lt from 100 to 125 mg/dL suggests IMPAIRED HOMEOSTASIS per A.D.A. criteria. Neutrophils (Bld) [#/Vol] 5.9 10*3/uL 2.0-7.7 [facility] Work Phone: Neutrophils/100 WBC (Bld) 65.5 % 47-70 [facility] Work Phone: Potassium [Moles/Vol] 4.2 mmol/L 3.5-5.1 [facility] Work Phone: Protein [Mass/Vol] 6.9 g/dL 6.4-8.2 [facility] Work Phone: Sodium [Moles/Vol] 140 mmol/L 136-145 [facility] Work Phone: [phone] WBC (Bld) [#/Vol] 9.1 10*3/uL 4.4-11.0 [facility] Work Phone: Bilirubin Test strip Ql (U)o n 06-26-2021 Bilirubin Ql (U) Negative Negative [facility] Work Phone: Blood erythrocytes count (nu mber/volume)on 06-26-2021 RBC (Bld) [#/Vol] 4.41 10*6/uL 4.2-5.4 [facility] Work Phone: Blood hemoglobin measurement (mass/volume)on 06-26-2021 Hemoglobin (Bld) [Mass/Vol] 12.1 g/dL 12.0-15.0 [facility] Work Phone: Blood lymphocytes/100 leukoc yteson 06-26-2021 Lymphocytes/100 WBC (Bld) 26.1 % 19-41 [facility] Work Phone: Blood monocytes/100 leukocyt eson 06-26-2021 Monocytes/100 WBC (Bld) 6.1 % 0-10 [facility] Work Phone: Blood platelet mean volumeon 06-26-2021 Platelet mean volume (Bld) [Entitic vol] 9.7 fL 6.2-12.0 [facility] Work Phone: Determination of erythrocyte mean corpuscular volume (MCV)on 06-26-2021 MCV (RBC) [Entitic vol] 84.6 fL 81-99 [facility] Work Phone: Hematocrit Auto (Bld) [Volum e fraction]on 06-26-2021 Hematocrit (Bld) [Volume fraction] 37.3 % 37-47 [facility] Work Phone: Ketones Test strip Ql (U)on 06-26-2021 Ketones Ql (U) Negative Negative [facility] Work Phone: Laboratory - Chemistry and C hemistry - challengeon 06-26-2021 ALP [Catalytic activity/Vol] 121 U/L 45-117 [facility] Work Phone: ALT [Catalytic activity/Vol] 32 U/L 13-56 [facility] Work Phone: CO2 [Moles/Vol] 26.0 mmol/L 21.0-32.0 [facility] Work Phone: Globulin (S) [Mass/Vol] 4.1 g/dL 2.2-4.2 [facility] Work Phone: Urea nitrogen/Creatinine [Mass ratio] 11.7 mg/mg 10-20 [facility] Work Phone: Laboratory - Hematology and Cell countson 06-26-2021 Erythrocyte distribution width (RBC) [Entitic vol] 41.1 fL 35.1-43.9 [facility] Work Phone: Erythrocyte distribution width (RBC) [Ratio] 13.3 % 11.6-14.6 [facility] Work Phone: Immature granulocytes/100 WBC (Bld) 0.400 % 0.0-0.9 [facility] Work Phone: Comment on above: IG% - Immature Granu locytes (promyelocytes, myelocytes and metamyelocytes) > 1% indicates that a LEFT SHIFT is Present. MCH (RBC) [Entitic mass] 27.4 pg 27.0-32.0 [facility] Work Phone: Nucleated RBC/100 WBC (Bld) [Ratio] 0 % 0-5 [facility] Work Phone: MCHC Auto (RBC) [Mass/Vol]on 06-26-2021 MCHC (RBC) [Mass/Vol] 32.4 g/dL 32-36 [facility] Work Phone: Mucus LM Ql (Urine sed)on Mucus Ql (Urine sed) 0 SEEN /hpf [facility] Work Phone: Nitrite Test strip Ql (U)on 06-26-2021 Nitrite Ql (U) Negative Negative [facility] Work Phone: No Panel Informationon 06-26 Estimated Creatinine Clearance Calc 51.68 ml/min [facility] Work Phone: Estimated GFR (MDRD) Amer 73 mL/min >60 [facility] Work Phone: Comment on above: GFR Calc Estimated GFR (MDRD) Non-Af Amer 60 mL/min >60 [facility] Work Phone: Comment on above: Non- GFR Calc Platelets bldon 06-26-2021 Platelets (Bld) [#/Vol] 272 10*3/uL 150-450 [facility] Work Phone: Protein Test strip Ql (U)on 06-26-2021 Protein Ql (U) Negative Negative [facility] Work Phone: Serum or plasma albumin consuelo urement (mass/volume)on 06-26-2021 Albumin [Mass/Vol] 2.8 g/dL 3.2-5.0 [facility] Work Phone: Serum or plasma albumin/glob ulin mass ratioon 06-26-2021 Albumin/Globulin [Mass ratio] 0.7 {ratio} 0.9-2.4 [facility] Work Phone: Serum or plasma calcium consuelo urement (mass/volume)on 06-26-2021 Calcium [Mass/Vol] 8.4 mg/dL 8.5-10.1 [facility] Work Phone: Serum or plasma creatinine m easurement (mass/volume)on 06-26-2021 Creatinine [Mass/Vol] 1.03 mg/dL 0.55-1.02 [facility] Work Phone: Comment on above: The validity of the calculated GFR & GFRAA in patients over 70 years has not been determined. Clinical correlation is essential. Serum or plasma urea nitroge n measurement (mass/volume)on 06-26-2021 Urea nitrogen [Mass/Vol] 12 mg/dL - [facility] Work Phone: Squamous epithelial cells de tection in urine sediment by light microscopyon 06-26-2021 Epithelial cells.squamous LM Ql (Urine sed) 0 SEEN /hpf [facility] Work Phone: Thin prep Papanicolaou smear with manual screeningon 06-26-2021 Thin prep Papanicolaou smear with manual screening 18 U/L 15-37 [facility] Work Phone: Thin prep Papanicolaou smear with manual screening 5 5-15 [facility] Work Phone: Urine blood detectionon 06-10 RBC Ql (U) Negative Negative [facility] Work Phone: RBC Ql (U) 0 SEEN /hpf [facility] Work Phone: Urine clarityon 06-26-2021 Clarity (U) Clear Clear [facility] Work Phone: Urine color determinationon 06-26-2021 Color (U) Yellow Yellow [facility] Work Phone: Urine glucose detectionon Glucose Ql (U) Normal mg/dl Normal [facility] Work Phone: Urine leukocyte esterase det ection by dipstickon 06-26-2021 Leukocyte esterase Test strip Ql (U) Negative Negative [facility] Work Phone: Urine pHon 06-26-2021 pH (U) 8.0 [pH] [facility] Work Phone: Urine sediment bacteria coun t by microscopy (number/high power field)on 06-26-2021 Bacteria LM.HPF (Urine sed) [#/Area] 0 /[HPF] None Seen [facility] Work Phone: Urine specific gravity measu rementon 06-26-2021 Specific gravity (U) [Rel density] 1.015 [facility] Work Phone: Urobilinogen Auto test strip Ql (U)on 06-26-2021 Urobilinogen Ql (U) Normal mg/dl Normal [facility] Work Phone: Basophil percentageon 2021 Chloride [Moles/Vol] 104 mmol/L 98-107 [facility] Work Phone: Glucose [Mass/Vol] 108 mg/dL 74-106 [facility] Work Phone: Comment on above: Fasting Glucose resu lt from 100 to 125 mg/dL suggests IMPAIRED HOMEOSTASIS per A.D.A. criteria. Potassium [Moles/Vol] 4.3 mmol/L 3.5-5.1 [facility] Work Phone: Sodium [Moles/Vol] 137 mmol/L 136-145 [facility] Work Phone: WBC (Bld) [#/Vol] 8.6 10*3/uL 4.4-11.0 [facility] Work Phone: Blood erythrocytes count (nu mber/volume)on 06-10-2021 RBC (Bld) [#/Vol] 4.88 10*6/uL 4.2-5.4 [facility] Work Phone: Blood hemoglobin measurement (mass/volume)on 06-10-2021 Hemoglobin (Bld) [Mass/Vol] 13.5 g/dL 12.0-15.0 [facility] Work Phone: Blood platelet mean volumeon 06-10-2021 Platelet mean volume (Bld) [Entitic vol] 9.8 fL 6.2-12.0 [facility] Work Phone: Determination of erythrocyte mean corpuscular volume (MCV)on 06-10-2021 MCV (RBC) [Entitic vol] 83.8 fL 81-99 [facility] Work Phone: Hematocrit Auto (Bld) [Volum e fraction]on 06-10-2021 Hematocrit (Bld) [Volume fraction] 40.9 % 37-47 [facility] Work Phone: Laboratory - Chemistry and C hemistry - challengeon 06-10-2021 CO2 [Moles/Vol] 29.0 mmol/L 21.0-32.0 [facility] Work Phone: Urea nitrogen/Creatinine [Mass ratio] 15.1 mg/mg 10-20 [facility] Work Phone: Laboratory - Hematology and Cell countson 06-10-2021 Erythrocyte distribution width (RBC) [Entitic vol] 42.1 fL 35.1-43.9 [facility] Work Phone: Erythrocyte distribution width (RBC) [Ratio] 13.8 % 11.6-14.6 [facility] Work Phone: MCH (RBC) [Entitic mass] 27.7 pg 27.0-32.0 [facility] Work Phone: MCHC Auto (RBC) [Mass/Vol]on 06-10-2021 MCHC (RBC) [Mass/Vol] 33.0 g/dL 32-36 [facility] Work Phone: No Panel Informationon 06-10 Estimated GFR (MDRD) Amer 98 mL/min >60 [facility] Work Phone: Comment on above: GFR Calc Estimated GFR (MDRD) Non-Af Amer 81 mL/min >60 [facility] Work Phone: Comment on above: Non- GFR Calc Platelets bldon 06-10-2021 Platelets (Bld) [#/Vol] 255 10*3/uL 150-450 [facility] Work Phone: Serum or plasma calcium consuelo urement (mass/volume)on 06-10-2021 Calcium [Mass/Vol] 9.0 mg/dL 8.5-10.1 oste r [facility] Work Phone: Serum or plasma creatinine m easurement (mass/volume)on 06-10-2021 Creatinine [Mass/Vol] 0.80 mg/dL 0.55-1.02 [facility] Work Phone: Comment on above: The validity of the calculated GFR & GFRAA in patients over 70 years has not been determined. Clinical correlation is essential. Serum or plasma urea nitroge n measurement (mass/volume)on 06-10-2021 Urea nitrogen [Mass/Vol] 12 mg/dL 7-18 [facility] Work Phone: Thin prep Papanicolaou smear with manual screeningon 06-10-2021 Thin prep Papanicolaou smear with manual screening 4 5-15 [facility] Work Phone: Laboratory - Microbiology an d Antimicrobial susceptibilityon 06-09-2021 SARS-CoV-2 (COVID-19) RNA AYAZ+probe Ql (Unsp spec) Not detected Not Detect [facility] Work Phone: Comment on above: Normal Reference Ran ge: Not DetectedMethod:(RT-PCR) real-time reverse transcriptase PCRLuminex YELENA Instrument*The Food and Drug Administration (FDA) has issued an Emergency Use Authorization (EAU) for the YELENA SARS-CoV-2 Assay for the rapid detection of the virus that causes COVID-19. This test has been validated, but the FDAs independent review of this validation is pending.*Negative results do not preclude infection and should not be used as the sole basis for treatment or patient management. Optimum specimen types and timing for peak viral levels during infections caused by SARS-CoV-2 have not been determined. Collection of multiple specimens from the same patient may be necessary to detect the virus. The possibility of a false negative result should be considered if the patient has clinical presentation or has had recent exposure. No Panel Informationon 03-18 IMPRESSION: Bilateral hips well-maintained. Head Cook: LEON Transcribe Date/Time: Mar 18 2021 10:59A Dictated by : DEN FELDMAN MD This examination was interpreted and the report reviewed and electronically signed by: DEN FELDMAN MD on Mar 18 2021 11:03AM [facility] DIVISION OF RADIOLOGY Radiology Study observation (narrative) [facility] No Panel InformationOrdered By: [facility] Provider on 03-18-2021 [facility] XR Hip - left AP and Lateral [...] 2V AP/ LAT LT Laterality: RIGHT (accession [id number]), LEFT (accession [id number]) Number of different views (projections): 3 (accession [id number]), 2 (accession [id number]) COMPARISON: None RESULT: Bilateral hips are well-maintained. There is enthesophyte formation of the acetabulum on both side. Normal contour of the femoral head. No fracture. Bony pelvis is intact. SI joints grossly unremarkable. DIVISION OF RADIOLOGY Provider, [facility] - 03/18/2021 * * *Final Report* * [...] 2V AP/ LAT LT Laterality: RIGHT (accession [id number]), LEFT (accession [id number]) Number of different views (projections): 3 (accession [id number]), 2 (accession [id number]) COMPARISON: None RESULT: Bilateral hips are well-maintained. There is enthesophyte formation of the acetabulum on both side. Normal contour of the femoral head. No fracture. Bony pelvis is intact. SI joints grossly unremarkable. IMPRESSION IMPRESSION: Bilateral hips well-maintained. Head Cook: LEON Transcribe Date/Time: Mar 18 2021 10:59A Dictated by : DEN FELDMAN MD This examination was interpreted and the report reviewed and electronically signed by: DEN FELDMAN MD on Mar 18 2021 11:03AM [facility] XR Lumbar spine 3 Viewson IMPRESSION: Lumbar s pine degenerative changes as described above. Head Cook: [facility] Transcribe Date/Time: Mar 18 2021 10:56A Dictated by : ROSE MARY SULLIVAN MD This examination was interpreted and the report reviewed and electronically signed by: ROSE MARY SULLIVAN MD on Mar 18 2021 10:58AM [facility] DIVISION OF RADIOLOGY * * *Final Report* [...] spine are presented. FINDINGS: There are five [id number] lumbar vertebrae. No fracture or subluxations are noted. The disc spaces are grossly preserved. There is mild osteophyte formation, with facet arthrosis in the lower lumbar spine. Kissing spine seen on lateral view. DIVISION OF RADIOLOGY Provider, [facility] - 03/18/2021 * * *Final Report* * [...] spine are presented. FINDINGS: There are five [id number] lumbar vertebrae. No fracture or subluxations are noted. The disc spaces are grossly preserved. There is mild osteophyte formation, with facet arthrosis in the lower lumbar spine. Kissing spine seen on lateral view. IMPRESSION IMPRESSION: Lumbar spine degenerative changes as described above. Head Cook: [facility] Transcribe Date/Time: Mar 18 2021 10:56A Dictated by : ROSE MARY SULLIVAN MD This examination was interpreted and the report reviewed and electronically signed by: ROSE MARY SULLIVAN MD on Mar 18 2021 10:58AM [facility] XR Pelvis and Hip - right AP [...] 2V AP/ LAT LT Laterality: RIGHT (accession [id number]), LEFT (accession [id number]) Number of different views (projections): 3 (accession [id number]), 2 (accession [id number]) COMPARISON: None RESULT: Bilateral hips are well-maintained. There is enthesophyte formation of the acetabulum on both side. Normal contour of the femoral head. No fracture. Bony pelvis is intact. SI joints grossly unremarkable. DIVISION OF RADIOLOGY Provider, [facility] - 03/18/2021 * * *Final Report* * [...] 2V AP/ LAT LT Laterality: RIGHT (accession [id number]), LEFT (accession [id number]) Number of different views (projections): 3 (accession [id number]), 2 (accession [id number]) COMPARISON: None RESULT: Bilateral hips are well-maintained. There is enthesophyte formation of the acetabulum on both side. Normal contour of the femoral head. No fracture. Bony pelvis is intact. SI joints grossly unremarkable. IMPRESSION IMPRESSION: Bilateral hips well-maintained. Head Cook: [facility] Transcribe Date/Time: Mar 18 2021 10:59A Dictated by : DEN FELDMAN MD This examination was interpreted and the report reviewed and electronically signed by: DEN FELDMAN MD on Mar 18 2021 11:03AM EST [facility] XR Chest PA and Lateralon IMPRESSION: No acute radiographic abnormality. Head Cook: [facility] Transcribe Date/Time: Feb 16 2021 5:38P Dictated by : HAILE BANKS MD This examination was interpreted and the report reviewed and electronically signed by: HAILE BANKS MD on Feb 16 2021 5:39PM [facility] DIVISION OF RADIOLOGY * * *Final Report* [...] the thoracic spine. DIVISION OF RADIOLOGY Provider, [facility] * * *Final Report* * [...] spine. IMPRESSION IMPRESSION: No acute radiographic abnormality. Head Cook: [facility] Transcribe Date/Time: Feb 16 2021 5:38P Dictated by : HAILE BANKS MD This examination was interpreted and the report reviewed and electronically signed by: HAILE BANKS MD on Feb 16 2021 5:39PM EST [facility] Radiology Study observation (narrative) [facility] XR Chest PA and LateralOrder ed By: [facility] Provider on 02-16-2021 [facility] XR Elbow - left AP and Later al and obliqueon 06-28-2020 IMPRESSION: No acute osseous findings. Head Cook: [facility] Transcribe Date/Time: Jun 28 2020 10:11A Dictated by : TARA WARD DO This examination was interpreted and the report reviewed and electronically signed by: TARA WARD DO on Jun 28 2020 10:12AM [facility] DIVISION OF RADIOLOGY * * *Final Report* [...] maintained. No effusion. DIVISION OF RADIOLOGY Provider, [facility] - 06/28/2020 * * *Final Report* [...] effusion. IMPRESSION IMPRESSION: No acute osseous findings. Head Cook: LEON Transcribe Date/Time: Jun 28 2020 10:11A Dictated by : TARA WARD DO This examination was interpreted and the report reviewed and electronically signed by: TARA WARD DO on Jun 28 2020 10:12AM EST [facility] Radiology Study observation (narrative) [facility] XR Elbow - left AP and Later al and obliqueOrdered By: [facility] Provider on 06-28-2020 [facility] ANES POSTPROC EVALon 020 ANES POSTPROC EVAL HNO ID: [id number] Author: Herb Altamirano Service: ? 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 SIGNATURE: Herb Altamirano MD PATIENT NAME: Clarisa Ann DATE: October 28, 2019 TIME: 3:02 PM CSN: [id number] [facility] ANES PRE-OPon 10-28-2019 ANES PRE-OP HNO ID: [id number] Author: Herb Altamirano Service: ? Author Type: [...] Height as of 10/27/19: 157.5 cm (5' 2). Weight as of 10/27/19: 99.8 kg (220 [...] Vitals Value Taken Time BP 145/76 10/28/19 0807 Pulse 70 10/28/19 0807 Resp 18 10/28/19 0807 Temp 36.5 ?C (97.7 ?F) 10/28/19 0807 SpO2 99 % 10/28/19 0807 Facility-Administered Medications as of 10/28/2019 Medication Dose [...] instructed every 4 hours as needed. - L.acidoph-B.lactis-B.long um (FLORAJEN3) 460 mg (7.5-6- 1.5 bill. cell) [...] Surgery/Procedure. SIGNATURE: Herb Altamirano MD PATIENT NAME: Clarisa Ann DATE: October 28, 2019 TIME: 8:11 AM CSN: [id number] [facility] NURSING PROGon 10-28-2019 NURSING PROG HNO ID: [id number] Author: Mary (Rn) YOLIE Coats Service: Nursing Author Type: Registered Nurse Type: Nursing Progress Note Filed: 10/28/2019 4:01 PM Note Text: Nursing Progress Note Topic of Note: PACU Clarisa Ann [id number] Pt having pain when waking up in PACU. Medicated per MAY. Dr. Altamirano notified. He removed initial pain catheter and attempted to reinsert right popliteal nerve catheter without success- pt's pain not relieved. Dr. Tripathi came and reinserted nerve block catheter with pt having good relief of pain. This note was completed by: Mary Coats RN [facility] OPERATIVE NOon 10-28-2019 OPERATIVE NO HNO ID: [id number] Author: Joe Gaitan Service: Orthopaedic Surgery Author Type: Physician Type: Operative Report Filed: 10/28/2019 7:33 PM Note Text: OPERATIVE REPORT LOG ID: [id number] Surgery Date: 10/28/2019 Incision/Procedure Start Time: 9:42 AM Incision Close/Procedure End Time: 12:05 PM Procedure Performed: Procedure(s) (LRB): REPAIR ACHILLES TENDON SECONDARY (Right) Posterior calcaneal exostectomy Excision of Kirsten's deformity TENO synovectomy of Achilles tendon Pre-Achilles bursectomy Surgeon monitored fluoroscopy Second procedure with repositioning and second incision OSTECTOMY INFERIOR CALCANEUS SPUR W/ OR W/O PLANTAR FASCIAL RELEASE (Right) Partial plantar fasciectomy NEUROLYSIS OF FOOT (Right), decompression first branch lateral plantar nerve Surgeon(s)/Proceduralist( s) and Deli Department Manager(s): Surgeon(s) and Role: * Joe Gaitan - Primary Physician Deli Department Manager: Shanae Deng) Annette; was essential in patient positioning, surgical exposure, bony resections, tendon repair, surgical debridement, utilizing fluoroscopy, surgical closure, postoperative bandaging and splinting. Denise Fung) [place] Anesthesia: General Estimated Blood Loss: 0 ml Drains: None Specimen: Plantar fascia, heel spur inferior calcaneus and posterior calcaneus Complications: None IMPLANTS: Implant Name Type Inv. Item Serial No. Hand Booked Folder And Stitcher Lot No. LRB No. 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 We then excised the Kirsten's deformity and made sure that there was no pressure that could be on the reattached Achilles tendon. Once we resected the Kirsten's deformity we smoothed and rasped and then [...] of the plantar fascia we placed a Orion clamp on this and incised the plantar [...] assist SIGNATURE: Joe Gaitan MD PATIENT NAME: Clarisa Ann DATE: October 28, 2019 TIME: 7:19 PM PHONE: [phone] [facility] PT EDon 10-28-2019 PT ED HNO ID: [id number] Author: Mary (Rn) YOLIE Coats Service: Nursing Author Type: Registered Nurse Type: Patient Education Filed: 10/28/2019 3:57 PM Note Text: Info reviewed with pt and family. Copy given. Scopolamine Transdermal Patch URL of this page: http://www.nlm.nih.gov/me dlineplus/druginfo/meds/a 862115.html Why is this medication prescribed? Scopolamine is [...] patch, follow the directions provided by the fisher seal and these steps: 1. After washing the [...] not breathing, call local emergency services at [phone]. What other information should I know? Keep [...] of all of the prescription and nonprescription (robi-wwp-bxmabic) medicines you are taking, as well as [...] Consumer Medication Information. ? Copyright, 2014. [employer] [place] [employer] [address], [place]. All Rights Reserved. Duplication for commercial use must be authorized by [facility]. Patient/ family Nurse Date/ time [facility] PT ED HNO ID: [id number] Author: Mary (Rn) YOLIE Coats Service: Nursing Author Type: Registered Nurse Type: Patient Education Filed: 10/28/2019 3:57 PM Note Text: PATIENT EDUCATION TOPIC: PROCEDURE / SURGERY: Post Procedure Teaching: Med Administration, Symptom Management, Wound Care, and CADD pump PATIENT NAME: Clarisa Ann PATIENT LOCATION: [facility] [place] READINESS TO LEARN COGNITIVE ABILITY: Alert and [...] REFERRAL (RECOMMENDATION): None Electronically Signed By: Mary Coats RN Normal [facility] SURGICAL PATHOLOGYon 020 SURGICAL PATHOLOGY Specimen originated from [facility] Specimen #: [id number] Submitting Physician: Joe Gaitan M.D. FINAL DIAGNOSIS Bone and soft tissue, right plantar fascia and right heel, excision - Osteocartilaginous tissue with degenerative changes, clinically heel spur. - Fibrotendinous tissue with reactive changes. KAMALA/RODRIGO/rebecca 11/03/2019 Mahad Gomez MD (Electronic Signature) SPECIMEN SUBMITTED A: RIGHT PLANTAR FASCIA AND RIGHT HEEL SPUR CLINICAL DATA KIRSTEN'S DEFORMITY, RIGHT; HEEL SPUR, RIGHT; PLANTAR FASCIAL FIBROMATOSIS OF RIGHT FOOT RIGHT ACHILLES TENDON TENOSYNOVECTOMY, POSTERIOR CALCANEAL SPUR EXCISION; EXCISION OF KIRSTEN DEFORMITY, RIGHT PLANTAR FASCIOTOMY; EXCISION OF INFERIOR CALCANEAL SPUR GROSS DESCRIPTION A. Received in formalin designated right plantar fascia and heel spur are multiple segments of white rubbery and fibrofatty tissue, which aggregate to 4.2 x 1.7 x 0.8 cm. Sectioning and palpation reveal multiple fragments of unremarkable bone present, which aggregate to 1.5 x 1 x 0.4 cm. Glass Cut Off Tender sections are submitted as follows: A1 soft tissue, A2 bone submitted after decalcification. PARKER/rebecca 10/29/2019 Gross examination performed at [facility], [address] [place] [address] Date of Report: 11/03/2019 Date of Procedure: 10/28/2019 Date of Receipt: 10/29/2019 Submitted by: Joe W. Arnie, M.D. Location: [facility] Diagnostic interpretation performed at [facility], [address] [place] [address]. CLIA Number: [id number] [facility] PT EDon 10-27-2019 PT ED HNO ID: [id number] Author: Hortensia (Rn) YOLIE Palacios Service: Nursing Author Type: Registered Nurse Type: Patient Education Filed: 10/27/2019 9:37 AM Note Text: During pre-op phone call patient was educated on nerve block procedure, use of crutches, non-weight bearing status, and to have a support person available for at least 24 hours after procedure. Patient states understanding Gene Palacios RN [facility] HOSPon 10-21-2019 HOSP Patient:Kaylin Ann MRN: Height:5' 2[pt rpt[(1.575 m) Weight:220 lb (99.791 kg) Outpatient [...] mcg/actuation inhaler rOPINIRole (REQUIP) 4 mg tablet L.acidoph-B.lactis-B.long um (FLORAJEN3) 460 mg (7.5-6- 1.5 bill. 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 Pharmacy [phone] Dottie Bell RN 10/27/2019 4:32 PM Signed I spoke with the pharmacy, all questions answered. Dottie Bell RN Progress Notes ([facility]): Neva Shields APRN.[employer] 10/21/2019 9:52 PM Signed The following approved medication requests have been transmitted electronically. Signed Prescriptions Disp Refills cetirizine (ZYRTEC) 10 mg tablet 90 tablet 3 Sig: Take 1 tablet by mouth once daily. KEVIN: No Neva Shields APRN.[facility] XR FOOT 3V AP/LAT/OBL RTon 0 10-27-2018 XR FOOT 3V AP/LAT/OBL RT * * *Final Repo rt* * * DATE OF EXAM: Oct 27 [...] tissues appear normal. IMPRESSION: Within normal limits. Head Cook: [facility] Transcribe Date/Time: Oct 27 2018 4:20P Dictated by : JUVENTINO COLIN MD This examination was interpreted and the report reviewed and electronically signed by: JUVENTINO COLIN MD on Oct 27 2018 4:21PM EST [facility] No Panel Information SARS-CoV-2 & FLU Antigen (Rapid) [facility] Work Phone: Vital Signs Date Time Vital Sign Value Performing Clinician Facility 09-29-2024 09:22-0400 Body mass index (BMI) [Ratio] 34.31 kg/m2 Nelly Yoon MD Work Phone: [facility] 09-29-2024 09:22-0400 Body temperature 97.39 [degF] Nelly Yoon MD Work Phone: [facility] 09-29-2024 09:22-0400 Body weight 85.09 kg Nelly Yoon MD Work Phone: [facility] 09-29-2024 09:22-0400 Diastolic blood pressure 72 mm[Hg] Nelly Yoon MD Work Phone: [facility] 09-29-2024 09:22-0400 Heart rate 82 /min Nelly Yoon MD Work Phone: [facility] 09-29-2024 09:22-0400 SaO2% (BldA) [Mass fraction] 94 % Nelly Yoon MD Work Phone: [facility] 09-29-2024 09:22-0400 Systolic blood pressure 100 mm[Hg] Nelly Yoon MD Work Phone: [facility] 08-19-2024 09:49-0400 Body mass index (BMI) [Ratio] 34.02 kg/m2 Tang Olguin DO Work Phone: [facility] 08-19-2024 09:49-0400 Body temperature 97 [degF] Tang Olguin DO Work Phone: [facility] 08-19-2024 09:49-0400 Body weight 84.37 kg Tang Olguin DO Work Phone: [facility] 08-19-2024 09:49-0400 Diastolic blood pressure 80 mm[Hg] Tang Olguin DO Work Phone: [facility] 08-19-2024 09:49-0400 Heart rate 60 /min Tang Olguin DO Work Phone: [facility] 08-19-2024 09:49-0400 Respiratory rate 16 /min Tang Olguin DO Work Phone: [facility] 08-19-2024 09:49-0400 Systolic blood pressure 118 mm[Hg] Tang Olguin DO Work Phone: 8(973)826-955364 [place] [address] 07-23-2024 13:15-0400 Body temperature 97.2 [degF] Dr. Tang Olguin DO Work Phone: 0(271)092-817138 [place] [address] 07-23-2024 13:15-0400 Diastolic blood pressure 79 mm[Hg] Dr. Tang Olguin DO Work Phone: 8(239)944-690038 [place] [address] 07-23-2024 13:15-0400 Heart rate 55 /min Dr. Tang Olguin DO Work Phone: 9(838)153-309338 [place] [address] 07-23-2024 13:15-0400 Respiratory rate 16 /min Dr. Tang Olguin DO Work Phone: 5(432)749-712338 [place] [address] 07-23-2024 13:15-0400 SaO2% (BldA) [Mass fraction] 94 % Dr. Tang Olguin DO Work Phone: 2(306)673-088138 [place] [address] 07-23-2024 13:15-0400 Systolic blood pressure 114 mm[Hg] Dr. Tang Olguin DO Work Phone: 8(594)632-902538 [place] [address] 07-23-2024 10:53-0400 Body height 157.[address] Tang Olguin DO Work Phone: 9(001)715-219438 [place] [address] 07-23-2024 10:53-0400 Body mass index (BMI) [Ratio] 33.6 kg/m2 Dr. Tang Olguin DO Work Phone: 4(427)552-097438 [place] [address] 07-23-2024 10:53-0400 Body weight 83.[address] Tang Olguin DO Work Phone: 9(396)638-506838 [place] [address] 07-02-2024 16:58-0400 Body temperature 98.2 [degF] Dr. Tang Olguin DO Work Phone: 1(746)901-125838 [place] [address] 07-02-2024 16:58-0400 Diastolic blood pressure 60 mm[Hg] Dr. Tang Olguin DO Work Phone: 5(046)630-377338 [place] [address] 07-02-2024 16:58-0400 Heart rate 68 /min Dr. Tang Olguin DO Work Phone: 0(238)008-407638 [place] [address] 07-02-2024 16:58-0400 Respiratory rate 14 /min Dr. Tang Olguin DO Work Phone: [facility] 07-02-2024 16:58-0400 SaO2% (BldA) [Mass fraction] 98 % Dr. Tang Olguin DO Work Phone: [facility] 07-02-2024 16:58-0400 Systolic blood pressure 110 mm[Hg] Dr. Tang Olguin DO Work Phone: [facility] 06-25-2024 11:00-0400 Body mass index (BMI) [Ratio] 34.75 kg/m2 Tang Olguin DO Work Phone: [facility] 06-25-2024 11:00-0400 Body weight 86.18 kg Tang Olguin DO Work Phone: [facility] 06-25-2024 11:00-0400 Diastolic blood pressure 72 mm[Hg] Tang Olguin DO Work Phone: [facility] 06-25-2024 11:00-0400 Heart rate 65 /min Tang Olguin DO Work Phone: [facility] 06-25-2024 11:00-0400 Respiratory rate 14 /min Tang Olguin DO Work Phone: [facility] 06-25-2024 11:00-0400 Systolic blood pressure 112 mm[Hg] Tang Olguin DO Work Phone: [facility] 06-06-2024 09:46-0400 Body height 157.[address] Tang Olguin DO Work Phone: [facility] 06-06-2024 09:42-0400 Body mass index (BMI) [Ratio] 33.8 kg/m2 Dr. Tang Olguin DO Work Phone: [facility] 06-06-2024 09:42-0400 Body weight 83.[address] Tang Olguin DO Work Phone: [facility] 06-06-2024 09:42-0400 Diastolic blood pressure 70 mm[Hg] Dr. Tang Olguin DO Work Phone: [facility] 06-06-2024 09:42-0400 Systolic blood pressure 120 mm[Hg] Dr. Tang Olguin DO Work Phone: [facility] 05-26-2024 16:26-0400 Body temperature 98 [degF] Dr. Tang Olguin DO Work Phone: [facility] 05-26-2024 16:26-0400 Diastolic blood pressure 64 mm[Hg] Dr. Tang Olguin DO Work Phone: [facility] 05-26-2024 16:26-0400 Heart rate 66 /min Dr. Tang Olguin DO Work Phone: 3(117)188-014238 [place] [address] 05-26-2024 16:26-0400 Respiratory rate 16 /min Dr. Tang Olguin DO Work Phone: 5(228)518-334454 [place] [address] 05-26-2024 16:26-0400 SaO2% (BldA) [Mass fraction] 98 % Dr. Tang Olguin DO Work Phone: [facility] 05-26-2024 16:26-0400 Systolic blood pressure 106 mm[Hg] Dr. Tang Olguin DO Work Phone: [facility] 05-16-2024 14:16-0500 Body mass index (BMI) [Ratio] 33.65 kg/m2 Tang Olguin DO Work Phone: [facility] 05-16-2024 14:16-0500 Body temperature 97.5 [degF] Tang Olguin DO Work Phone: [facility] 05-16-2024 14:16-0500 Body weight 83.46 kg Tang Olguin DO Work Phone: [facility] 05-16-2024 14:16-0500 Diastolic blood pressure 60 mm[Hg] Tang Olguin DO Work Phone: [facility] 05-16-2024 14:16-0500 Heart rate 76 /min Tang Olguin DO Work Phone: [facility] 05-16-2024 14:16-0500 Respiratory rate 16 /min Tang Olguin DO Work Phone: [facility] 05-16-2024 14:16-0500 Systolic blood pressure 100 mm[Hg] Tang Olguin DO Work Phone: [facility] 02-27-2024 10:33-0500 Body temperature 97.8 [degF] Dr. Tang Olguin DO Work Phone: [facility] 02-27-2024 10:33-0500 Diastolic blood pressure 70 mm[Hg] Dr. Tang Olguin DO Work Phone: 9(870)532-509454 [place] [address] 02-27-2024 10:33-0500 Heart rate 63 /min Dr. Tang Olguin DO Work Phone: 1(441)238-530054 [place] [address] 02-27-2024 10:33-0500 Respiratory rate 16 /min Dr. Tang Olguin DO Work Phone: 4(970)523-994854 [place] [address] 02-27-2024 10:33-0500 SaO2% (BldA) [Mass fraction] 100 % Dr. Tang Olguin DO Work Phone: [facility] 02-27-2024 10:33-0500 Systolic blood pressure 112 mm[Hg] Dr. Tang Olguin DO Work Phone: [facility] 01-07-2024 10:18-0400 Body mass index (BMI) [Ratio] 33.63 kg/m2 Krisdarline Aberegg PA Work Phone: [facility] 01-07-2024 10:18-0400 Body temperature 97 [degF] Krislyn Aberegg PA Work Phone: [facility] 01-07-2024 10:18-0400 Body weight 83.4 kg Krislyn Aberegg PA Work Phone: [facility] 01-07-2024 10:18-0400 Diastolic blood pressure 64 mm[Hg] Krislyn Aberegg PA Work Phone: [facility] 01-07-2024 10:18-0400 Heart rate 76 /min Krislyn Aberegg PA Work Phone: [facility] 01-07-2024 10:18-0400 Respiratory rate 18 /min Krislyn Aberegg PA Work Phone: [facility] 01-07-2024 10:18-0400 SaO2% (BldA) [Mass fraction] 97 % Krislyn Aberegg PA Work Phone: [facility] 01-07-2024 10:18-0400 Systolic blood pressure 103 mm[Hg] Krislyn Aberegg PA Work Phone: [facility] 12-05-2023 10:28-0400 Body mass index (BMI) [Ratio] 33.55 kg/m2 Fito Tate MD Work Phone: [facility] 12-05-2023 10:28-0400 Body temperature 96.91 [degF] Fito Tate MD Work Phone: [facility] 12-05-2023 10:28040 Body weight 83.2 kg Fito Tate MD Work Phone: [facility] 12-05-2023 10:28-0400 Diastolic blood pressure 72 mm[Hg] Fito Tate MD Work Phone: [facility] 12-05-2023 10:28-0400 Heart rate 66 /min Fito Tate MD Work Phone: [facility] 12-05-2023 10:280400 Respiratory rate 16 /min Fito Tate MD Work Phone: [facility] 12-05-2023 10:28-0400 SaO2% (BldA) [Mass fraction] 97 % Fito Tate MD Work Phone: [facility] 12-05-2023 10:28-0400 Systolic blood pressure 110 mm[Hg] Fito Tate MD Work Phone: [facility] 08-21-2023 14:49-0400 Body mass index (BMI) [Ratio] 33.84 kg/m2 Tang Olguin DO Work Phone: [facility] 08-21-2023 14:49-0400 Body temperature 97 [degF] Tang Olguin DO Work Phone: [facility] 08-21-2023 14:49-0400 Body weight 83.92 kg Tang Olguin DO Work Phone: [facility] 08-21-2023 14:49-0400 Diastolic blood pressure 60 mm[Hg] Tang Olguin DO Work Phone: [facility] 08-21-2023 14:49-0400 Heart rate 64 /min Tang Olguin DO Work Phone: [facility] 08-21-2023 14:49-0400 Respiratory rate 12 /min Tang Olguin DO Work Phone: [facility] 08-21-2023 14:49-0400 Systolic blood pressure 110 mm[Hg] Tang Olguin DO Work Phone: [facility] 05-29-2023 13:00-0400 Body temperature 98.1 [degF] Dr. Tang Olguin Work Phone: [facility] 05-29-2023 13:00-0400 Diastolic blood pressure 68 mm[Hg] Dr. Tang Olguin Work Phone: [facility] 05-29-2023 13:00-0400 Heart rate 67 /min Dr. Tang Olguin Work Phone: [facility] 05-29-2023 13:00-0400 Respiratory rate 16 /min Dr. Tang Olguin Work Phone: [facility] 05-29-2023 13:00-0400 SaO2% (BldA) [Mass fraction] 98 % Dr. Tang Olguin Work Phone: [facility] [facility] 05-29-2023 13:00-0400 Systolic blood pressure 114 mm[Hg] Dr. Tang Olguin Work Phone: [facility] 05-29-2023 10:38-0400 Body height 157.[address] Tang Olguin Work Phone: [facility] 05-29-2023 10:38-0400 Body mass index (BMI) [Ratio] 33.7 kg/m2 Dr. Tang Olguin Work Phone: [facility] 05-29-2023 10:38-0400 Body weight 83.[address] Tang Olguin Work Phone: [facility] 2023 10:40-0400 Body temperature 97.39 [degF] Nanci Athy PA-C Work Phone: [facility] 2023 10:40-0400 Body weight 85 kg Nanci Athy PA-C Work Phone: [facility] 2023 10:40-0400 Diastolic blood pressure 86 mm[Hg] Nanci Athy PA-C Work Phone: [facility] 2023 10:40-0400 Heart rate 62 /min Nanci Athy PA-C Work Phone: [facility] 2023 10:40-0400 Respiratory rate 20 /min Nanci Athy PA-C Work Phone: [facility] 2023 10:40-0400 SaO2% (BldA) [Mass fraction] 100 % Nanci Athy PA-C Work Phone: [facility] 2023 10:40-0400 Systolic blood pressure 134 mm[Hg] Nanci Athy PA-C Work Phone: [facility] 05-03-2023 09:38-0500 Body temperature 98 [degF] Dr. Tang Olguin Work Phone: [facility] 05-03-2023 09:38-0500 Diastolic blood pressure 76 mm[Hg] Dr. Tang Olguin Work Phone: 3(032)437-296838 [place] [address] 05-03-2023 09:38-0500 Heart rate 70 /min Dr. Tang Olguin Work Phone: 0(671)535-993838 [place] [address] 05-03-2023 09:38-0500 Respiratory rate 12 /min Dr. Tang Olguin Work Phone: 1(522)973-261738 [place] [address] 05-03-2023 09:38-0500 SaO2% (BldA) [Mass fraction] 98 % Dr. Tang Olguin Work Phone: 5(063)187-320038 [place] [address] 05-03-2023 09:38-0500 Systolic blood pressure 116 mm[Hg] Dr. Tang Olguin Work Phone: 7(674)426-591738 [place] [address] 04-26-2023 11:00-0500 Body temperature 97.9 [degF] Dr. Tang Olguin Work Phone: 4(438)536-949938 [place] [address] 04-26-2023 11:00-0500 Diastolic blood pressure 70 mm[Hg] Dr. Tang Olguin Work Phone: 9(566)381-387838 [place] [address] 04-26-2023 11:00-0500 Heart rate 64 /min Dr. Tang Olguin Work Phone: 5(909)656-882538 [place] [address] 04-26-2023 11:00-0500 Respiratory rate 16 /min Dr. Tang Olguin Work Phone: 0(490)353-098038 [place] [address] 04-26-2023 11:00-0500 SaO2% (BldA) [Mass fraction] 96 % Dr. Tang Olguin Work Phone: 9(443)776-177338 [place] [address] 04-26-2023 11:00-0500 Systolic blood pressure 99 mm[Hg] Dr. Tang Olguin Work Phone: 4(590)874-596138 [place] [address] 04-26-2023 09:53-0500 Body height 157.[address] Tang Olguin Work Phone: 7(577)204-318138 [place] [address] 04-26-2023 09:53-0500 Body mass index (BMI) [Ratio] 34.9 kg/m2 Dr. Tang Olguin Work Phone: [facility] 04-26-2023 09:53-0500 Body weight 86.[address] Tang Olguin Work Phone: [facility] 04-20-2023 07:31-0500 Body mass index (BMI) [Ratio] 35.1 kg/m2 Dr. Tang Olguin Work Phone: [facility] 04-20-2023 07:31-0500 Body weight 87.[address] Tang Olguin Work Phone: [facility] 04-13-2023 09:36-0500 Body temperature 97 [degF] Krislyn Aberegg PA Work Phone: [facility] 04-13-2023 09:36-0500 Body weight 86.82 kg Krislyn Aberegg PA Work Phone: [facility] 04-13-2023 09:36-0500 Diastolic blood pressure 84 mm[Hg] Krislyn Aberegg PA Work Phone: [facility] 04-13-2023 09:36-0500 Heart rate 63 /min Krislyn Aberegg PA Work Phone: [facility] 04-13-2023 09:36-0500 Respiratory rate 18 /min Krislyn Aberegg PA Work Phone: [facility] 04-13-2023 09:36-0500 SaO2% (BldA) [Mass fraction] 98 % Krislyn Aberegg PA Work Phone: [facility] 04-13-2023 09:36-0500 Systolic blood pressure 144 mm[Hg] Krislyn Aberegg PA Work Phone: [facility] 01-23-2023 10:15-0500 Body mass index (BMI) [Ratio] 34.7 kg/m2 Dr. Tang Olguin Work Phone: [facility] 01-23-2023 10:15-0500 Body temperature 98 [degF] Dr. Tang Olguin Work Phone: 5(957)991-371354 [place] [address] 01-23-2023 10:15-0500 Body weight 86.[address] Tang Olguin Work Phone: 4(528)438-101554 [place] [address] 01-23-2023 10:15-0500 Diastolic blood pressure 70 mm[Hg] Dr. Tang Olguin Work Phone: 4(397)710-532854 [place] [address] 01-23-2023 10:15-0500 Heart rate 73 /min Dr. Tang Olguin Work Phone: 8(814)504-387854 [place] [address] 01-23-2023 10:15-0500 Respiratory rate 16 /min Dr. Tang Olguin Work Phone: 4(586)855-947954 [place] [address] 01-23-2023 10:15-0500 SaO2% (BldA) [Mass fraction] 96 % Dr. Tang Olguin Work Phone: 2(854)975-670154 [place] [address] 01-23-2023 10:15-0500 Systolic blood pressure 115 mm[Hg] Dr. Tang Olguin Work Phone: 7(745)071-558038 [place] [address] 12-11-2022 14:40-0400 Respiratory rate 26 /min Dr. Tang Olguin Work Phone: 6(302)301-218054 [place] [address] 12-11-2022 14:40-0400 SaO2% (BldA) [Mass fraction] 99 % Dr. Tang Olguin Work Phone: 2(268)484-652954 [place] [address] 12-11-2022 14:15-0400 Diastolic blood pressure 91 mm[Hg] Dr. Tang Olguin Work Phone: 6(001)020-371954 [place] [address] 12-11-2022 14:15-0400 Heart rate 57 /min Dr. Tang Olguin Work Phone: 4(115)746-841754 [place] [address] 12-11-2022 14:15-0400 Systolic blood pressure 124 mm[Hg] Dr. Tang Olguin Work Phone: 4(343)650-716854 [place] [address] 12-11-2022 10:34-0400 Body height 157.[address] Tang Olguin Work Phone: [facility] 12-11-2022 10:34-0400 Body mass index (BMI) [Ratio] 37 kg/m2 Dr. Tang Olguin Work Phone: [facility] 12-11-2022 10:34-0400 Body temperature 97 [degF] Dr. Tang Olguin Work Phone: [facility] 12-11-2022 10:34-0400 Body weight 91.[address] Tang Olguin Work Phone: [facility] 11-09-2022 11:11-0400 Body height 157.4 cm Kristal Recinos MD Work Phone: [facility] 11-09-2022 11:11-0400 Body mass index (BMI) [Ratio] 36.73 kg/m2 Kristal Recinos MD Work Phone: [facility] 11-09-2022 11:11-0400 Body weight 91 kg Kristal Recinos MD Work Phone: [facility] 10-10-2022 11:56-0400 Body temperature 98.01 [degF] Tang Olguin DO Work Phone: [facility] 10-10-2022 11:56-0400 Body weight 92.99 kg Tang Olguin DO Work Phone: [facility] 10-10-2022 11:56-0400 Diastolic blood pressure 80 mm[Hg] Tang Olguin DO Work Phone: [facility] 10-10-2022 11:56-0400 Heart rate 64 /min Tang Olguin DO Work Phone: [facility] 10-10-2022 11:56-0400 Respiratory rate 16 /min Tang Olguin DO Work Phone: [facility] 10-10-2022 11:56-0400 Systolic blood pressure 120 mm[Hg] Tang Olguin DO Work Phone: [facility] 10-02-2022 19:37-0400 Diastolic blood pressure 69 mm[Hg] Dr. Tang Olguin Work Phone: 9(045)760-676138 [place] [address] 10-02-2022 19:37-0400 Heart rate 53 /min Dr. Tang Olguin Work Phone: 6(979)974-524838 [place] [address] 10-02-2022 19:37-0400 Respiratory rate 18 /min Dr. Tang Olguin Work Phone: 6(780)287-197338 [place] [address] 10-02-2022 19:37-0400 Systolic blood pressure 116 mm[Hg] Dr. Tang Olguin Work Phone: 0(929)623-727938 [place] [address] 10-02-2022 13:00-0400 Body height 157.[address] Tang Olguin Work Phone: 2(440)620-088538 [place] [address] 10-02-2022 13:00-0400 Body mass index (BMI) [Ratio] 38 kg/m2 Dr. Tang Olguin Work Phone: 7(242)945-391938 [place] [address] 10-02-2022 13:00-0400 Body temperature 98.1 [degF] Dr. Tang Olguin Work Phone: 4(138)430-535038 [place] [address] 10-02-2022 13:00-0400 Body weight 94.[address] Tang Olguin Work Phone: 5(283)738-225438 [place] [address] 10-02-2022 13:00-0400 SaO2% (BldA) [Mass fraction] 98 % Dr. Tang Olguin Work Phone: 7(869)289-797938 [place] [address] 07-25-2022 15:11-0400 Diastolic blood pressure 57 mm[Hg] Dr. Tang Olguin Work Phone: 9(229)121-424838 [place] [address] 07-25-2022 15:11-0400 Heart rate 57 /min Dr. Tang Olguin Work Phone: 3(594)688-752138 [place] [address] 07-25-2022 15:11-0400 Respiratory rate 16 /min Dr. Tang Olguin Work Phone: 6(814)811-082038 [place] [address] 07-25-2022 15:11-0400 SaO2% (BldA) [Mass fraction] 98 % Dr. Tang Olguin Work Phone: [facility] 07-25-2022 15:11-0400 Systolic blood pressure 99 mm[Hg] Dr. Tang Olguin Work Phone: [facility] 07-25-2022 10:58-0400 Body height 157.[address] Tang Olguin Work Phone: [facility] 07-25-2022 10:58-0400 Body mass index (BMI) [Ratio] 40.4 kg/m2 Dr. Tang Olguin Work Phone: [facility] 07-25-2022 10:58-0400 Body temperature 97.6 [degF] Dr. Tang Olguin Work Phone: [facility] 07-25-2022 10:58-0400 Body weight 100.[address] Tang Olguin Work Phone: [facility] 06-30-2022 09:11-0400 Body height 157.[address] Work Phone: [facility] 06-30-2022 09:11-0400 Body weight 102.[address] Work Phone: [facility] 06-09-2022 10:36-0400 Body height 157.[address] [facility] 06-09-2022 10:36-0400 Body weight 105.[address] [facility] 05-31-2022 08:55-0400 Body temperature 97.11 [degF] Treatment Work Phone: [facility] 05-31-2022 08:55-0400 Diastolic blood pressure 76 mm[Hg] Treatment Work Phone: [facility] 05-31-2022 08:55-0400 Heart rate 74 /min Treatment Work Phone: [facility] 05-31-2022 08:55-0400 Respiratory rate 18 /min Treatment Work Phone: [facility] 05-31-2022 08:55-0400 SaO2% (BldA) [Mass fraction] 97 % Treatment Work Phone: [facility] 05-31-2022 08:55-0400 Systolic blood pressure 129 mm[Hg] Treatment Work Phone: [facility] 2022 10:41-0400 Body height 157.5 cm Pacc 1 Work Phone: [facility] 2022 10:41-0400 Body temperature 98.2 [degF] Pacc 1 Work Phone: [facility] 2022 10:41-0400 Body weight 112.49 kg Pacc 1 Work Phone: [facility] 2022 10:41-0400 Diastolic blood pressure 82 mm[Hg] Pacc 1 Work Phone: [facility] 2022 10:41-0400 Heart rate 81 /min Pacc 1 Work Phone: [facility] 2022 10:41-0400 Respiratory rate 16 /min Pacc 1 Work Phone: [facility] 2022 10:41-0400 SaO2% (BldA) [Mass fraction] 99 % Pacc 1 Work Phone: [facility] 2022 10:41-0400 Systolic blood pressure 120 mm[Hg] Pacc 1 Work Phone: [facility] 05-12-2022 10:25-0500 Body height 157.[address] Tang Olguin Work Phone: [facility] 05-12-2022 10:25-0500 Body mass index (BMI) [Ratio] 45.8 kg/m2 Dr. Tang Olguin Work Phone: [facility] 05-12-2022 10:25-0500 Body weight 113.[address] Tang Olguin Work Phone: 8(844)027-619954 [place] [address] 05-12-2022 10:25-0500 Diastolic blood pressure 86 mm[Hg] Dr. Tang Olguin Work Phone: 2(111)206-964438 [place] [address] 05-12-2022 10:25-0500 Systolic blood pressure 124 mm[Hg] Dr. Tang Olguin Work Phone: 1(588)636-048838 [place] [address] 04-25-2022 10:38-0500 Body mass index (BMI) [Ratio] 46.1 kg/m2 Dr. Tang Olguin Work Phone: 6(802)016-933738 [place] [address] 04-25-2022 10:38-0500 Body weight 114.[address] Tang Olguin Work Phone: 8(119)506-182938 [place] [address] 04-25-2022 10:38-0500 Diastolic blood pressure 84 mm[Hg] Dr. Tang Olguin Work Phone: 1(752)177-687338 [place] [address] 04-25-2022 10:38-0500 Systolic blood pressure 134 mm[Hg] Dr. Tang Olguin Work Phone: 7(568)751-845238 [place] [address] 04-23-2022 10:04-0500 Body temperature 97.1 [degF] Dr. Tang Olguin Work Phone: 4(208)948-821238 [place] [address] 04-23-2022 10:04-0500 Diastolic blood pressure 100 mm[Hg] Dr. Tang Olguin Work Phone: 6(064)555-920638 [place] [address] 04-23-2022 10:04-0500 Heart rate 78 /min Dr. Tang Olguin Work Phone: 6(098)229-788638 [place] [address] 04-23-2022 10:04-0500 Respiratory rate 16 /min Dr. Tang Olguin Work Phone: 4(073)254-517038 [place] [address] 04-23-2022 10:04-0500 SaO2% (BldA) [Mass fraction] 97 % Dr. Tang Olguin Work Phone: 6(005)382-889538 [place] [address] 04-23-2022 10:04-0500 Systolic blood pressure 160 mm[Hg] Dr. Tang Olguin Work Phone: 6(968)009-093754 [place] [address] 04-07-2022 19:15-0500 Diastolic blood pressure 80 mm[Hg] Dr. Tang Olguin Work Phone: 5(706)708-366738 [place] [address] 04-07-2022 19:15-0500 Heart rate 75 /min Dr. Tang Olguin Work Phone: 7(591)131-333538 [place] [address] 04-07-2022 19:15-0500 Respiratory rate 16 /min Dr. Tang Olguin Work Phone: 6(419)692-538038 [place] [address] 04-07-2022 19:15-0500 SaO2% (BldA) [Mass fraction] 96 % Dr. Tang Olguin Work Phone: 8(901)465-797638 [place] [address] 04-07-2022 19:15-0500 Systolic blood pressure 121 mm[Hg] Dr. Tang Olguin Work Phone: 8(603)398-356338 [place] [address] 04-07-2022 16:24-0500 Body height 157.[address] Tang Olguin Work Phone: 6(190)228-924038 [place] [address] 04-07-2022 16:24-0500 Body mass index (BMI) [Ratio] 45.7 kg/m2 Dr. Tang Olguin Work Phone: 4(134)152-398838 [place] [address] 04-07-2022 16:24-0500 Body temperature 96.4 [degF] Dr. Tang Olguin Work Phone: 5(305)283-618238 [place] [address] 04-07-2022 16:24-0500 Body weight 113.[address] Tang Olguin Work Phone: 8(740)750-882138 [place] [address] 03-08-2022 13:40-0500 Body height 158.5 cm Mayi Murillo MD Work Phone: [facility] 03-08-2022 13:40-0500 Body weight 110.31 kg Mayi Murillo MD Work Phone: [facility] 03-08-2022 13:40-0500 Diastolic blood pressure 81 mm[Hg] Mayi Murillo MD Work Phone: [facility] 03-08-2022 13:40-0500 Heart rate 75 /min Mayi Murillo MD Work Phone: [facility] 03-08-2022 13:40-0500 Systolic blood pressure 139 mm[Hg] Mayi Murillo MD Work Phone: [facility] 02-28-2022 13:28-0500 Body weight 111.13 kg Radha Langston MD Work Phone: [facility] 02-17-2022 09:29-0500 Body temperature 97.11 [degF] Tang Olguin DO Work Phone: [facility] 02-17-2022 09:29-0500 Body weight 112.49 kg Tang Hansonrison DO Work Phone: [facility] 02-17-2022 09:29-0500 Diastolic blood pressure 86 mm[Hg] Tang Olguin DO Work Phone: [facility] 02-17-2022 09:29-0500 Heart rate 64 /min Tang Olguin DO Work Phone: [facility] 02-17-2022 09:29-0500 Respiratory rate 20 /min Tang Olguin DO Work Phone: [facility] 02-17-2022 09:29-0500 Systolic blood pressure 136 mm[Hg] Tang Hansonrison DO Work Phone: [facility] 02-16-2022 07:38-0500 Body mass index (BMI) [Ratio] 45.3 kg/m2 Dr. Tang Olguin Work Phone: [facility] 02-16-2022 07:38-0500 Body temperature 97 [degF] Dr. Tang Olguin Work Phone: [facility] 02-16-2022 07:38-0500 Body weight 112.[address] Tang Olguin Work Phone: [facility] 02-16-2022 07:38-0500 Diastolic blood pressure 66 mm[Hg] Dr. Tang Olguin Work Phone: [facility] 02-16-2022 07:38-0500 Heart rate 70 /min Dr. Tang Olguin Work Phone: [facility] 02-16-2022 07:38-0500 Respiratory rate 18 /min Dr. Tang Olguin Work Phone: [facility] 02-16-2022 07:38-0500 SaO2% (BldA) [Mass fraction] 99 % Dr. Tang Olguin Work Phone: [facility] 02-16-2022 07:38-0500 Systolic blood pressure 138 mm[Hg] Dr. Tang Olguin Work Phone: [facility] 02-08-2022 12:54-0500 Body height 157.5 cm Tawny Cope MD Work Phone: [facility] 02-08-2022 12:54-0500 Body weight 113.4 kg Tawny Cope MD Work Phone: [facility] 02-08-2022 12:54-0500 Diastolic blood pressure 87 mm[Hg] Tawny Cope MD Work Phone: [facility] 02-08-2022 12:54-0500 Heart rate 83 /min Tawny Cope MD Work Phone: [facility] 02-08-2022 12:54-0500 SaO2% (BldA) [Mass fraction] 100 % Tawny Cope MD Work Phone: [facility] 02-08-2022 12:54-0500 Systolic blood pressure 149 mm[Hg] Tawny Cope MD Work Phone: [facility] 01-04-2022 14:46-0400 Body weight 111.13 kg Neva Shields APRN.[employer] Work Phone: [facility] 01-04-2022 14:46-0400 Diastolic blood pressure 96 mm[Hg] Neva Shields APRN.[employer] Work Phone: [facility] 01-04-2022 14:46-0400 Heart rate 82 /min Neva Cornelius TECHNICAL SUPPORT ANALYST.[employer] DIRECT[employer] Work Phone: [facility] 01-04-2022 14:46-0400 Respiratory rate 16 /min Neva Cornelius TECHNICAL SUPPORT ANALYST.[employer] DIRECT[employer] Work Phone: [facility] 01-04-2022 14:46-0400 SaO2% (BldA) [Mass fraction] 97 % Neva Cornelius TECHNICAL SUPPORT ANALYST.[employer] DIRECT[employer] Work Phone: [facility] 01-04-2022 14:46-0400 Systolic blood pressure 124 mm[Hg] Neva Cornelius TECHNICAL SUPPORT ANALYST.[employer] Work Phone: [facility] 12-27-2021 10:11-0400 Body temperature 97.7 [degF] Tang Olguin DO Work Phone: [facility] 12-27-2021 10:11-0400 Body weight 110.68 kg Tang Olguin DO Work Phone: [facility] 12-27-2021 10:11-0400 Diastolic blood pressure 80 mm[Hg] Tang Olguin DO Work Phone: [facility] 12-27-2021 10:11-0400 Heart rate 80 /min Tang Olguin DO Work Phone: [facility] 12-27-2021 10:11-0400 Respiratory rate 16 /min Tang Olguin DO Work Phone: [facility] 12-27-2021 10:11-0400 Systolic blood pressure 130 mm[Hg] Tang Olguin DO Work Phone: [facility] 12-08-2021 13:03-0400 Diastolic blood pressure 77 mm[Hg] Dr. Tang Olguin Work Phone: [facility] 12-08-2021 13:03-0400 Heart rate 62 /min Dr. aTng Olguin Work Phone: [facility] 12-08-2021 13:03-0400 Respiratory rate 15 /min Dr. Tang Olguin Work Phone: [facility] 12-08-2021 13:03-0400 SaO2% (BldA) [Mass fraction] 98 % Dr. Tang Olguin Work Phone: [facility] 12-08-2021 13:03-0400 Systolic blood pressure 139 mm[Hg] Dr. Tang Olguin Work Phone: [facility] 12-08-2021 11:52-0400 Body temperature 98.2 [degF] Dr. Tang Olguin Work Phone: [facility] 12-08-2021 09:38-0400 Body height 157.[address] Tang Olguin Work Phone: [facility] Work Phone: 12-08-2021 09:38-0400 Body mass index (BMI) [Ratio] 44.4 kg/m2 Dr. Tang Olguin Work Phone: [facility] 12-08-2021 09:38-0400 Body weight 110.[address] Tang Olguin Work Phone: [facility] 12-05-2021 10:54-0400 Body temperature 98.29 [degF] Silva Sweeney TECHNICAL SUPPORT ANALYST.[employer] Work Phone: [facility] 12-05-2021 10:54-0400 Body weight 109.77 kg Silva Patel TECHNICAL SUPPORT ANALYST.[employer] DIRECT[employer] Work Phone: [facility] 12-05-2021 10:54-0400 Diastolic blood pressure 78 mm[Hg] Silva Zurfelixck TECHNICAL SUPPORT ANALYST.[employer] DIRECT[employer] Work Phone: [facility] 12-05-2021 10:54-0400 Heart rate 89 /min Silva Rosalback TECHNICAL SUPPORT ANALYST.[employer] DIRECT[employer] Work Phone: [facility] 12-05-2021 10:54-0400 Respiratory rate 16 /min Silva Zurawick TECHNICAL SUPPORT ANALYST.[employer] DIRECTOR Work Phone: [facility] 12-05-2021 10:54-0400 SaO2% (BldA) [Mass fraction] 99 % Silva Sweeney TECHNICAL SUPPORT ANALYSTLauraRESIDENCE LIFE DIRECTOR Work Phone: [facility] 12-05-2021 10:54-0400 Systolic blood pressure 132 mm[Hg] Silva Sweeney APRN.[employer] DIRECT[employer] Work Phone: [facility] 12-04-2021 11:54-0400 Body temperature 97.5 [degF] Dr. Tang Olguin Work Phone: [facility] Work Phone: 12-04-2021 11:54-0400 Diastolic blood pressure 80 mm[Hg] Dr. Tang Olguin Work Phone: [facility] Work Phone: 12-04-2021 11:54-0400 Heart rate 105 /min Dr. Tang Olguin Work Phone: [facility] Work Phone: 12-04-2021 11:54-0400 Respiratory rate 16 /min Dr. Tang Olguin Work Phone: [facility] Work Phone: 12-04-2021 11:54-0400 SaO2% (BldA) [Mass fraction] 96 % Dr. Tang Olguin Work Phone: [facility] Work Phone: 12-04-2021 11:54-0400 Systolic blood pressure 148 mm[Hg] Dr. Tang Olguin Work Phone: [facility] Work Phone: 11-30-2021 10:07-0400 Body height 157.[address] Tang Olguin Work Phone: [facility] Work Phone: 11-30-2021 10:07-0400 Body mass index (BMI) [Ratio] 44.8 kg/m2 Dr. Tang Olguin Work Phone: [facility] Work Phone: 11-30-2021 10:07-0400 Body temperature 98 [degF] Dr. Tang Olguin Work Phone: [facility] Work Phone: 11-30-2021 10:07-0400 Body weight 111.[address] Tang Olguin Work Phone: [facility] Work Phone: 11-30-2021 10:07-0400 Diastolic blood pressure 74 mm[Hg] Dr. Tang Olguin Work Phone: [facility] Work Phone: 11-30-2021 10:07-0400 Heart rate 74 /min Dr. Tang Olguin Work Phone: [facility] Work Phone: 11-30-2021 10:07-0400 Respiratory rate 14 /min Dr. Tang Olguin Work Phone: [facility] Work Phone: 11-30-2021 10:07-0400 SaO2% (BldA) [Mass fraction] 98 % Dr. Tang Olguin Work Phone: [facility] Work Phone: 11-30-2021 10:07-0400 Systolic blood pressure 128 mm[Hg] Dr. Tang Olguin Work Phone: [facility] Work Phone: 11-30-2021 08:34-0400 Body mass index (BMI) [Ratio] 44.8 kg/m2 Dr. Tang Olguin Work Phone: [facility] Work Phone: 11-30-2021 08:34-0400 Body weight 111.[address] Tang Olguin Work Phone: [facility] Work Phone: 11-30-2021 08:34-0400 Diastolic blood pressure 87 mm[Hg] Dr. Tang Olguin Work Phone: [facility] Work Phone: 11-30-2021 08:34-0400 Heart rate 77 /min Dr. Tang Olguin Work Phone: [facility] Work Phone: 11-30-2021 08:34-0400 SaO2% (BldA) [Mass fraction] 96 % Dr. Tang Olguin Work Phone: [facility] Work Phone: 11-30-2021 08:34-0400 Systolic blood pressure 128 mm[Hg] Dr. Tang Olguin Work Phone: [facility] Work Phone: 11-16-2021 09:10-0400 Body temperature 97.3 [degF] Dr. Tang Olguin Work Phone: [facility] Work Phone: 11-16-2021 09:10-0400 Diastolic blood pressure 72 mm[Hg] Dr. Tang Olguin Work Phone: [facility] Work Phone: 11-16-2021 09:10-0400 Heart rate 65 /min Dr. Tang Olguin Work Phone: [facility] Work Phone: 11-16-2021 09:10-0400 Respiratory rate 16 /min Dr. Tang Olguin Work Phone: [facility] Work Phone: 11-16-2021 09:10-0400 SaO2% (BldA) [Mass fraction] 96 % Dr. Tang Olguin Work Phone: [facility] Work Phone: 11-16-2021 09:10-0400 Systolic blood pressure 116 mm[Hg] Dr. Tang Olguin Work Phone: [facility] Work Phone: 11-16-2021 07:28-0400 Body height 157.[address] Tang Olguin Work Phone: [facility] Work Phone: 11-16-2021 07:28-0400 Body mass index (BMI) [Ratio] 44.3 kg/m2 Dr. Tang Olguin Work Phone: [facility] Work Phone: 11-16-2021 07:28-0400 Body weight [address] Tang Olguin Work Phone: [facility] Work Phone: 11-09-2021 15:58-0400 Body temperature 97.9 [degF] Tang Olguin DO Work Phone: [facility] 11-09-2021 15:58-0400 Body weight 111.13 kg Tang Olguin DO Work Phone: [facility] 11-09-2021 15:58-0400 Diastolic blood pressure 80 mm[Hg] Tnag Olguin DO Work Phone: [facility] 11-09-2021 15:58-0400 Heart rate 80 /min Tang Olguin DO Work Phone: [facility] 11-09-2021 15:58-0400 Respiratory rate 20 /min Tang Olguin DO Work Phone: [facility] 11-09-2021 15:58-0400 Systolic blood pressure 130 mm[Hg] Tang Olguin DO Work Phone: [facility] 10-19-2021 15:28-0400 Body height 157.[address] Tang Olguin Work Phone: [facility] Work Phone: 10-19-2021 15:28-0400 Body mass index (BMI) [Ratio] 44.8 kg/m2 Dr. Tang Olguin Work Phone: [facility] Work Phone: 10-19-2021 15:28-0400 Body weight 111.[address] Tang Olguin Work Phone: [facility] Work Phone: 10-19-2021 15:28-0400 Diastolic blood pressure 85 mm[Hg] Dr. Tang Olguin Work Phone: [facility] Work Phone: 10-19-2021 15:28-0400 Heart rate 88 /min Dr. Tang Olguin Work Phone: [facility] Work Phone: 10-19-2021 15:28-0400 SaO2% (BldA) [Mass fraction] 97 % Dr. Tang Olguin Work Phone: [facility] Work Phone: 10-19-2021 15:28-0400 Systolic blood pressure 125 mm[Hg] Dr. Tang Olguin Work Phone: [facility] Work Phone: 09-09-2021 11:18-0400 Body mass index (BMI) [Ratio] 45 kg/m2 Dr. Tang Olguin Work Phone: [facility] Work Phone: 09-09-2021 11:18-0400 Body weight 111.[address] Tang Olguin Work Phone: [facility] Work Phone: 09-09-2021 11:18-0400 Diastolic blood pressure 80 mm[Hg] Dr. Tang Olguin Work Phone: [facility] Work Phone: 09-09-2021 11:18-0400 Systolic blood pressure 118 mm[Hg] Dr. Tang Olguin Work Phone: [facility] Work Phone: 08-23-2021 09:38-0400 Body temperature 99.19 [degF] Deysi Mcfarland APRN.[facility] Work Phone: [facility] 08-23-2021 09:38-0400 Body weight 109.32 kg Deysi Mcfarland APRN.[employer] Work Phone: [facility] 08-23-2021 09:38-0400 Diastolic blood pressure 74 mm[Hg] Deysi Mcfarland APRN.[employer] Work Phone: [facility] 08-23-2021 09:38-0400 Heart rate 114 /min Deysi Mcfarland APRN.[employer] Work Phone: [facility] 08-23-2021 09:38-0400 Respiratory rate 18 /min Deysi Mcfarland APRN.[employer] Work Phone: [facility] 08-23-2021 09:38-0400 SaO2% (BldA) [Mass fraction] 96 % Deysi Mcfarland APRN.[employer] Work Phone: [facility] 08-23-2021 09:38-0400 Systolic blood pressure 132 mm[Hg] Deysi Mcfarland APRN.[employer] Work Phone: [facility] 08-12-2021 16:03-0400 Body mass index (BMI) [Ratio] 44.7 kg/m2 Dr. Tang Olguin Work Phone: [facility] Work Phone: 08-12-2021 16:03-0400 Body weight 110.[address] Tang Olguin Work Phone: [facility] Work Phone: 08-12-2021 16:03-0400 Diastolic blood pressure 78 mm[Hg] Dr. Tang Olguin Work Phone: [facility] Work Phone: 08-12-2021 16:03-0400 Systolic blood pressure 110 mm[Hg] Dr. Tang Olguin Work Phone: [facility] Work Phone: 07-20-2021 10:25-0400 Body temperature 97.7 [degF] Raymond Mckinley TECHNICAL SUPPORT ANALYST.[employer] Work Phone: [facility] 07-20-2021 10:25-0400 Body weight 110.59 kg Raymond Sen TECHNICAL SUPPORT ANALYST.[employer] DIRECT[employer] Work Phone: [facility] 07-20-2021 10:25-0400 Diastolic blood pressure 78 mm[Hg] Raymond Sen TECHNICAL SUPPORT ANALYST.[employer] Work Phone: [facility] 07-20-2021 10:25-0400 Heart rate 77 /min Raymond Sen TECHNICAL SUPPORT ANALYST.[employer] DIRECT[employer] Work Phone: [facility] 07-20-2021 10:25-0400 Respiratory rate 20 /min Raymond Sen TECHNICAL SUPPORT ANALYST.[employer] DIRECT[employer] Work Phone: [facility] 07-20-2021 10:25-0400 SaO2% (BldA) [Mass fraction] 98 % Raymond Sen TECHNICAL SUPPORT ANALYST.[employer] DIRECT[employer] Work Phone: [facility] 07-20-2021 10:25-0400 Systolic blood pressure 112 mm[Hg] Raymond Sen TECHNICAL SUPPORT ANALYST.[employer] DIRECT[employer] Work Phone: [facility] 07-08-2021 08:34-0400 Body temperature 97 [degF] Tang Olguin DO Work Phone: [facility] 07-08-2021 08:34-0400 Body weight 110.68 kg Tang Olguin DO Work Phone: [facility] 07-08-2021 08:34-0400 Diastolic blood pressure 78 mm[Hg] Tang Olguin DO Work Phone: [facility] 07-08-2021 08:34-0400 Heart rate 100 /min Tang Olguin DO Work Phone: [facility] 07-08-2021 08:34-0400 Respiratory rate 20 /min Tang Olguin DO Work Phone: [facility] 07-08-2021 08:34-0400 Systolic blood pressure 110 mm[Hg] Tang Olguin DO Work Phone: [facility] 06-26-2021 20:19-0400 Body temperature 98.4 [degF] Dr. Tang Olguin Work Phone: [facility] Work Phone: 06-26-2021 20:19-0400 Diastolic blood pressure 78 mm[Hg] Dr. Tang Olguin Work Phone: [facility] Work Phone: 06-26-2021 20:19-0400 Heart rate 66 /min Dr. Tang Olguin Work Phone: [facility] Work Phone: 06-26-2021 20:19-0400 Respiratory rate 16 /min Dr. Tnag Olguin Work Phone: [facility] Work Phone: 06-26-2021 20:19-0400 SaO2% (BldA) [Mass fraction] 98 % Dr. Tang Olguin Work Phone: [facility] Work Phone: 06-26-2021 20:19-0400 Systolic blood pressure 124 mm[Hg] Dr. Tang Olguin Work Phone: [facility] Work Phone: 06-26-2021 17:19-0400 Body height 157.[address] Tang Olguin Work Phone: [facility] Work Phone: 06-26-2021 17:19-0400 Body mass index (BMI) [Ratio] 44.2 kg/m2 Dr. Tang Olguin Work Phone: [facility] Work Phone: 06-26-2021 17:19-0400 Body weight 109.[address] Tang Olguin Work Phone: [facility] Work Phone: Encounters Encounter Date Encounter Type Care Provider Facility Start: 09-29-2024 End: 09-29-2024 Patient encounter procedure Nelly Yoon MD Work Phone: General Surgery Comment on above: Skin lesion (Primary Dx); Dysesthesia Start: 09-29-2024 End: 09-29-2024 ambulatory NELLY YOON Facility:[facility] Start: 09-13-2024 End: 09-15-2024 ambulatory Tang Olguin DO Work Phone: [facility] Comment on above: Cyst removal on leg. Start: 08-19-2024 End: 08-19-2024 Patient encounter procedure Tang Olguin DO Work Phone: [facility] Comment on above: Perimenopausal disor alfa (Primary Dx); RLS (restless legs syndrome); SOB (shortness of breath); Fatigue, unspecified type; Myalgia; IFG (impaired fasting glucose); Fibromyalgia; RUQ abdominal pain; Nausea; Moderate single current episode of major depressive disorder (HCC) Start: 08-19-2024 End: 08-19-2024 ambulatory TANG OLGUIN Facility:[facility] Start: 08-08-2024 End: 08-08-2024 Patient encounter procedure Faraz Cortez DO -[facility] Work Phone: Start: 08-08-2024 End: 08-08-[address] Tang Olguin DO Work Phone: [facility] Work Phone: Start: 07-23-2024 ambulatory Faraz Cortez Facility :[facility] Start: 07-23-2024 Non-patient / Non-visit Faraz Paz nd, DO -[facility] Start: 07-23-2024 End: 07-23-2024 Admission to same day surgery center Faraz Cortez DO -Endoscopy Work Phone: Start: 07-23-2024 End: 07-23-[address] Tang Olguin DO Work Phone: [facility] Work Phone: Start: 07-11-2024 End: 07-11-2024 Subsequent hospital visit by physician [facility] Work Phone: Radiology Comment on above: Right foot pain [[id number] .[id number]] Start: 07-11-2024 End: 07-11-2024 Patient encounter procedure Michael Degroot Work Phone: Podiatry Comment on above: Right foot pain (Jillian hortensia Dx); Contusion of right foot, initial encounter Start: 07-11-2024 End: 07-11-2024 ambulatory MICHAEL TEJADAROULA Facility:[facility] Start: 07-04-2024 End: 07-04-2024 Patient encounter procedure Faraz Cortez DO -[facility] Work Phone: Start: 07-04-2024 End: 07-04-2024 ambulatory Tang Olguin Facility:[facility] Start: 07-02-2024 End: 07-02-2024 Patient encounter procedure Herb Dominique [facility] -[facility] Work Phone: Start: 07-02-2024 End: 07-02-[address] Tang Olguin DO Work Phone: [facility] Work Phone: Start: 07-02-2024 End: 07-02-2024 ambulatory Tang Olguin Facility:[facility] Start: 06-26-2024 End: 06-26-2024 ambulatory TANG Clifford OLGUIN Facility:[facility] Start: 06-25-2024 End: 06-25-2024 ambulatory TANG HANSONRISON Facility:[facility] Start: 06-25-2024 End: 06-25-2024 Patient encounter procedure Tang Olguin DO Work Phone: [facility] Comment on above: Myalgia (Primary Dx) ; Arthralgia, unspecified joint; Elevated alkaline phosphatase level; Fatigue, unspecified type; Hypoglycemia; Borderline abnormal thyroid function test; Class 1 obesity with body mass index (BMI) of 34.0 to 34.9 in adult, unspecified obesity type, unspecified whether serious comorbidity present Start: 06-25-2024 End: 06-25-2024 ambulatory TANG OLGUIN Facility:[facility] Start: 06-14-2024 End: 06-17-2024 Refill Tang Olguin DO Work Phone: [facility] Comment on above: Refill Request Start: 06-06-2024 End: 06-06-2024 Patient encounter procedure Debbie Ying REIMBURSEMENT DIRECTOR-C -[facility] Work Phone: Start: 06-06-2024 End: 06-06-2024 ambulatory Debbie Ying REIMBURSEMENT DIRECTOR Facility:[facility] Start: 05-27-2024 End: 05-27-2024 ambulatory Tang Olguin DO Work Phone: [facility] Comment on above: Question about meds Start: 05-26-2024 End: 05-26-2024 Patient encounter procedure Herb Dominique [facility] -[facility] Work Phone: Start: 05-26-2024 End: 05-26-[address] Tang Olguin DO Work Phone: [facility] Work Phone: Start: 05-26-2024 End: 05-26-2024 ambulatory Tang Olguin Facility:[facility] Start: 05-21-2024 End: 07-21-2024 Follow-up encounter Silva Lew APRN.[employer] Work Phone: [facility] Start: 05-16-2024 End: 05-16-2024 ambulatory TANG OLGUIN Facility:[facility] Start: 05-16-2024 End: 05-16-2024 Patient encounter procedure Tang Olguin DO Work Phone: [facility] Comment on above: Urinary frequency (P rimary Dx); Perimenopausal disorder; Menopause syndrome; IFG (impaired fasting glucose); Fibromyalgia; Class 1 obesity with body mass index (BMI) of 33.0 to 33.9 in adult, unspecified obesity type, unspecified whether serious comorbidity present Start: 05-16-2024 End: 06-06-2024 Telephone encounter Tang Olguin DO Work Phone: [facility] Start: 03-05-2024 End: 03-10-2024 ambulatory Tang L Olguin DO Work Phone: Internal Medicine [facility] Start: 02-27-2024 End: 02-27-2024 Patient encounter procedure Herb SÁNCHEZ -Laboratory, Specimen Work Phone: Start: 02-27-2024 End: 02-27-2024 Patient encounter procedure Herb SÁNCHEZ -[facility] Work Phone: Start: 02-27-2024 End: 02-27-2024 ambulatory Tang Olguin Facility:[facility] Start: 02-27-2024 End: 02-27-2024 ambulatory Tang Olguin Facility:[facility] Start: 01-31-2024 End: 01-31-2024 ambulatory Tang Olguin Facility:[facility] Start: 01-29-2024 End: 01-29-2024 ambulatory Maryqamar Perez Autumn Facility:[facility] Start: 01-23-2024 End: 01-23-2024 ambulatory Tang Olguin Facility:[facility] Start: 01-07-2024 End: 01-07-2024 ambulatory Tang Olguin Facility:[facility] Start: 01-07-2024 End: 01-07-2024 Patient encounter procedure Steffi Alanis PA Work Phone: [facility] Comment on above: Chest pain, unspecif ied type (Primary Dx) Start: 01-07-2024 End: 01-07-2024 ambulatory Tang Olguin Facility:[facility] Start: 12-28-2023 End: 12-28-2023 Emergency department patient visit CIERRA EMMANUEL Facility:[facility] Start: 12-14-2023 End: 12-14-2023 Refill Tang L Olguin DO Work Phone: [facility] Comment on above: Refill Request Start: 12-13-2023 End: 12-13-2023 ambulatory Tang L Olguin DO Work Phone: [facility] Comment on above: Question Refill Request Start: 12-05-2023 End: 12-05-2023 ambulatory TANG L OLGUIN Facility:[facility] Start: 12-05-2023 End: 12-05-2023 Patient encounter procedure Fito Tate MD Work Phone: [facility] Comment on above: Otalgia, right (Prim sean Dx) Start: 12-04-2023 End: 12-04-2023 Refill Silva Lew TECHNICAL SUPPORT ANALYST.[employer]ENCE [employer] DIRECTOR Work Phone: [facility] Comment on above: Refill Request Start: 11-22-2023 End: 11-22-2023 ambulatory Debbie Ying REIMBURSEMENT DIRECTOR Facility:[facility] Start: 11-12-2023 End: 11-13-2023 Refill Silva Lew TECHNICAL SUPPORT ANALYST.[employer]ENCE LIFE DIRECTOR Work Phone: [facility] Comment on above: Refill Request Start: 10-22-2023 ambulatory Hardeep Lucio Facility:[facility] Start: 10-22-2023 End: 10-22-2023 ambulatory Tang Olguin Facility:[facility] Start: 10-22-2023 End: 10-22-2023 ambulatory Debbie Ying REIMBURSEMENT DIRECTOR Facility:[facility] Start: 10-09-2023 ambulatory Tang Woo son DO Work Phone: [facility] Comment on above: Weight loss Start: 10-09-2023 Telephone encounter Tang guillermo DO Work Phone: [facility] Comment on above: Weight Problem Start: 08-21-2023 End: 08-21-2023 Patient encounter procedure Tang Clifford Olguin DO Work Phone: [facility] Comment on above: Hypoglycemia (Primar y Dx); Appetite increase; Lightheaded; Blood glucose labile; History of Mitchel-en-Y gastric bypass; Fatigue, unspecified type; IFG (impaired fasting glucose) Start: 07-01-2023 Refill Tang Woo son DO Work Phone: [facility] Comment on above: Refill Request Start: 06-12-2023 ambulatory Tang Woo son DO Work Phone: [facility] Comment on above: Need meds Start: 06-05-2023 Refill Silva Lew TECHNICAL SUPPORT ANALYST.[employer] DIRECT[employer] Work Phone: [facility] Comment on above: Refill Request Start: 05-29-2023 ambulatory Tang Darrin Hansonbeck son DO Work Phone: [facility] Comment on above: Possible blood clot in leg. Leg Swelling Start: 05-29-2023 Non-patient / Non-visit Dr. Tiana Olguni Work Phone: [facility] Start: 05-29-2023 End: 05-29-2023 Emergency department patient visit Dr. Tang Olguin Work Phone: [facility]Emergency Department Work Phone: Start: 2023 End: 2023 Patient encounter procedure Nanci Villagran PA-C Work Phone: [facility] Comment on above: Acute pansinusitis, recurrence not specified (Primary Dx); Otalgia of left ear Start: 05-03-2023 End: 05-03-[address] Tang Olguin Work Phone: [facility] Work Phone: Start: 04-26-2023 Non-patient / Non-visit Dr. Tiana Olguin Work Phone: [facility] Start: 04-26-2023 End: 04-26-2023 Admission to same day surgery center Dr. Tang Olguin Work Phone: [facility]-Endoscopy Work Phone: Start: 04-26-2023 End: 04-26-[address] Tang Olguin Work Phone: [facility] Work Phone: Start: 04-20-2023 End: 04-20-[address] Tang Olguin Work Phone: [facility] Work Phone: Start: 04-13-2023 End: 04-13-2023 Subsequent hospital visit by physician Janel [facility] Work Phone: Radiology Comment on above: Foot pain, right [M7 9.671] Start: 04-13-2023 End: 04-13-2023 Patient encounter procedure Steffi Alanis PA Work Phone: [facility] Comment on above: Foot pain, right (Pr imary Dx) Start: 02-25-2023 End: 02-25-2023 Emergency department patient visit MARYJJ FARFAN Facility:[facility] Start: 01-23-2023 End: 01-23-[address] Tang Olguin Work Phone: [facility] Work Phone: Start: 12-18-2022 Refill Tang Clifford Gurwinderbeck son DO Work Phone: [facility] Comment on above: Refill Request Start: 12-14-2022 Telephone encounter Raymond castañeda APRN.[employer] DIRECT[employer] Work Phone: [facility] Comment on above: Results Start: 12-11-2022 End: 12-11-2022 Emergency department patient visit Dr. Tang Olguin Work Phone: [facility]-Emergency Department Work Phone: Start: 11-09-2022 End: 11-09-2022 Subsequent hospital visit by physician Kristal Recinos MD Work Phone: [facility] Comment on above: Upper abdominal pain , unspecified; Bariatric surgery status; Abnormal findings on diagnostic imaging of other parts of digestive tract Start: 10-30-2022 AUDIT Tang Woo son Work Phone: [facility] DO Work Phone: Start: 10-30-[address] Kristal Recinos Facility:[id number] Start: 10-18-2022 Telephone encounter Tang guillermo DO Work Phone: [facility] Comment on above: Results Start: 10-17-2022 End: 10-17-[address] Tang Olguin Work Phone: [facility] Work Phone: Start: 10-17-2022 End: 10-17-[address] Tang Olguin Work Phone: [facility] Work Phone: Start: 10-13-2022 End: 10-13-[address] Tang Olguin Work Phone: [facility] Work Phone: Start: 10-13-2022 End: 10-13-[address] Tang Olguin Work Phone: [facility]-Laboratory Work Phone: Start: 10-10-2022 End: 10-10-2022 Patient encounter procedure Tang Olguin DO Work Phone: [facility] Comment on above: Fatigue, unspecified type (Primary Dx); Nausea; RUQ abdominal pain; Common bile duct dilation; History of Mitchel-en-Y gastric bypass Start: 10-04-2022 End: 10-04-[address] Tang Olguin Work Phone: [facility] Work Phone: Start: 10-02-2022 ambulatory Tang moody DO Work Phone: [facility] Comment on above: Abdominal Pain Start: 10-02-2022 End: 10-02-2022 Emergency department patient visit Dr. Tang Olguin Work Phone: [facility]-Emergency Department Work Phone: Start: 09-25-2022 Telephone encounter Mayi Murillo MD Work Phone: General Surgery Comment on above: Patient Update; Michelle ent Question Start: 09-08-2022 [address] Work Phone: General Surgery Comment on above: Refill Request Start: 09-06-2022 Refill Tang moody DO Work Phone: [facility] Comment on above: Refill Request Start: 08-23-2022 Orders Only Leonel Freeman MD Work Phone: General Surgery Start: 07-25-2022 End: 07-25-2022 Emergency department patient visit Dr. Tang Olguin Work Phone: [facility]-Emergency Department Start: 07-20-2022 Refill Silva Lew TECHNICAL SUPPORT ANALYST.[employer] DIRECTOR Work Phone: [facility] Comment on above: Refill Request Start: 07-19-2022 Refill Silva Lew TECHNICAL SUPPORT ANALYST.[employer]ENCE LIFE DIRECTOR Work Phone: [facility] Comment on above: Refill Request Start: 07-03-2022 End: 07-03-2022 ambulatory Mayi Murillo MD Work Phone: General Surgery Comment on above: History of Mitchel-en-Y gastric bypass (Primary Dx) Start: 07-03-2022 End: 07-03-2022 Telemedicine consultation with patient Mayi Murillo MD Work Phone: [facility] Start: 06-30-2022 End: 06-30-[address] Work Phone: General Surgery Comment on above: Class 3 obesity (HCC ) (Primary Dx); Dietary counseling and surveillance; Impaired intestinal absorption; S/P gastric bypass Start: 06-30-2022 End: 06-30-2022 Telemedicine consultation with patient Edin Powers RD Work Phone: [facility] Start: 06-28-2022 Telephone encounter Tang guillermo DO Work Phone: [facility] Comment on above: Results Start: 06-12-2022 Telephone [...] End: 06-09-2022 Telemedicine consultation with patient Dottie Francois Cory [facility] [address] Start: 06-07-2022 End: 06-07-2022 Admission to same day surgery center Fellow Geovany Main Work Phone: General Surgery Comment on above: Bariatric surgery [facility] (Primary Dx) Start: 06-07-2022 End: 06-07-2022 Telemedicine consultation with patient Fellow Geovany Main Work Phone: [facility] Start: 06-05-2022 Telephone encounter Mayi Murillo [...] with patient Mayi Murillo MD Work Phone: [facility] Start: 2022 End: [address] [facility] Work Phone: Pre Anesthesia Comment on above: Pre-operative examin ation (Primary Dx); Way's esophagus with dysplasia; Depressive disorder; Deep vein thrombosis (DVT) of proximal vein of left lower extremity, unspecified chronicity (HCC); Hypertension, essential; Mild intermittent asthma without complication; NNEKA (obstructive sleep apnea); Pancreatic insufficiency; RLS (restless legs syndrome); Seizures (HCC) Start: 2022 End: [address] [facility] Work Phone: Pre Anesthesia Start: 05-18-2022 Telephone encounter Celina Mendoza RN General Surgery Comment on above: Schedule Surgery Start: 05-12-2022 End: 05-12-[address] Tang Olguin Work Phone: [facility] Start: 05-05-2022 End: 05-05-[address] Tang Olguin Work Phone: [facility] Work Phone: Start: 05-05-2022 End: 05-05-[address] Tang Olguin Work Phone: [facility]-Outpatient Breast Imaging Start: 05-03-2022 Refill Neva jenkins APRN.CNP Work Phone: [facility] [place] Comment on above: Refill Request Start: 05-02-2022 ambulatory Mayi Murillo MD Work Phone: General Surgery Comment on above: 05/28/2022Sunday PSE UDO DATE Start: 04-28-2022 End: 04-28-[address] Tang Olguin Work Phone: [facility] Start: 04-26-2022 ambulatory Tang moody DO Work Phone: [facility] [place] Start: 04-23-2022 End: 04-23-[address] Tang Olguin Work Phone: [facility] Start: 04-07-2022 End: 04-07-2022 Emergency department patient visit Dr. Tang Olguin Work Phone: [facility]Emergency Department Start: 04-07-2022 ambulatory Tang moody DO Work Phone: [facility] Comment on above: Chest Pain Start: 03-29-2022 End: 03-29-2022 Patient encounter procedure Mesha Villarreal RD Work Phone: General Surgery Comment on above: No-show for appointm ent (Primary Dx) Start: 03-29-2022 End: 03-29-2022 Telemedicine consultation with patient Mesha Villarreal RD Work Phone: [facility] Start: 03-22-2022 End: 03-22-2022 ambulatory CHARLIE DRAPER Facility:[facility] Start: 03-17-2022 Refill Tang moody DO Work Phone: [facility] Comment on above: Refill Request Start: 03-08-2022 End: 03-08-2022 Patient encounter procedure Mayi Murillo MD Work Phone: General Surgery Comment on above: Obesity, Class III, BMI 40-49.9 (morbid obesity) (HCC) (Primary Dx); Way's esophagus without dysplasia Start: 02-28-2022 End: 02-28-2022 [facility] Radha Langston MD Work Phone: General Surgery Comment on above: Weight disorder (Jillian hortensia Dx); Abnormal weight gain; Preop testing; Morbid obesity with BMI of 40.0-44.9, adult (HCC) Start: 02-28-2022 End: 02-28-2022 Patient encounter status [...] 02-17-2022 Subsequent hospital visit by physician Janel [facility] [place] Work Phone: Radiology Comment on above: Left arm pain [M79.6 02] Start: 02-17-2022 End: 02-17-2022 Patient encounter procedure Tang Olguin DO Work Phone: [facility] Comment on above: Need for influenza v accination (Primary Dx); Left arm pain; Left hand pain; Paresthesia; Other chest pain; Subacute cough; Acute bronchitis, unspecified organism; Medication management Start: 02-16-2022 Non-patient / Non-visit Dr. Tiana Olguin Work Phone: [facility] Start: 02-16-2022 End: 02-16-2022 Emergency department patient visit Dr. Tang Olguin Work Phone: [facility]-Emergency Department Start: 02-08-2022 End: 02-08-2022 Patient encounter procedure Tawny Cope MD Work Phone: Rheumatology Comment on above: Multiple joint pain (Primary Dx); CRP elevated; Fibromyalgia Start: 01-26-2022 Telephone encounter Jane Gregory [facility] Comment on above: Appointment Start: 01-09-2022 Telephone encounter Neva Ponce APRN.RESIDENCE LIFE DIRECTOR Work Phone: [facility] Comment on above: Opened In Error Start: 01-04-2022 End: 01-04-2022 Patient encounter procedure Neva Shields APRN.RESIDENCE LIFE DIRECTOR Work Phone: [facility] Comment on above: Elevated BP without diagnosis of hypertension (Primary Dx); Restless legs; Pleuritic pain; Fatigue, unspecified type; Polypharmacy; Acute cough; Cough; Chronic cough Start: 01-02-2022 Refill Tang moody DO Work Phone: [facility] Comment on above: Refill Request Start: 12-27-2021 End: 12-27-2021 Patient encounter procedure Tang Olguin DO Work Phone: [facility] Comment on above: Subacute cough (Prim sean Dx); Acute bronchitis, unspecified organism; Multiple joint pain; CRP elevated; Pancreatic insufficiency; Hiatal hernia; Way's esophagus with dysplasia Start: 12-08-2021 Telephone encounter Silva moody TECHNICAL SUPPORT ANALYST.RESIDENCE LIFE DIRECTOR Work Phone: [facility] Comment on above: Results Start: 12-08-2021 End: 12-08-2021 Emergency department patient visit Dr. Tang Olguin Work Phone: [facility]-Emergency Department Start: 12-06-2021 ambulatory Silva Navarrete alphonso TECHNICAL SUPPORT ANALYST.RESIDENCE LIFE DIRECTOR Work Phone: [facility] Comment on above: Question regarding C OMP METABOLIC PANEL Start: 12-05-2021 [facility]ulatory [facility] al[facility]so TECHNICAL SUPPORT ANALYST.RESIDENCE LIFE DIRECTOR Work Phone: [facility] Comment on above: Question regarding D -DIMER Start: 12-05-2021 Telephone encounter Tang guillermo DO Work Phone: [facility] Comment on above: Future Appointment ( today 12-05-21) Start: 12-05-2021 End: 12-05-2021 Subsequent hospital visit by physician Janel [facility] [place] Work Phone: Radiology Comment on above: Acute cough [R05.1] Start: 12-05-2021 End: 12-05-2021 Patient encounter procedure Silva Sweeney TECHNICAL SUPPORT ANALYST.RESIDENCE LIFE DIRECTOR Work Phone: [facility] Comment on above: Acute cough (Primary Dx); Pleuritic pain; Vaginal yeast infection Start: 12-04-2021 End: 12-04-[address] Tang Olguin Work Phone: [facility] Start: 11-30-2021 End: 11-30-[address] Tang Olguin Work Phone: [facility] Start: 11-30-2021 End: 11-30-[address] Tang Olguin Work Phone: [facility] Work Phone: Start: 11-30-2021 End: 11-30-[address] Tang Olguin Work Phone: [facility] Gastroenterology Start: 11-16-2021 Non-patient / Non-visit Dr. Tiana Olguin Work Phone: [facility] Start: 11-16-2021 End: 11-16-2021 Admission to same day surgery center Dr. Tang Olguin Work Phone: [facility]-Endoscopy Start: 11-16-2021 End: 11-16-[address] Tang Olguin Work Phone: [facility] Work Phone: Start: 11-09-2021 End: 11-09-2021 Patient encounter procedure Tang Olguin DO Work Phone: [facility] [place] Comment on above: Dysuria (Primary Dx) ; Muscle spasm of back; Fatigue, unspecified type; Obesity, Class III, BMI 40-49.9 (morbid obesity) (HCC); Perimenopausal disorder; Generalized abdominal pain Start: 10-27-2021 End: 10-27-[address] Tang Olguin Work Phone: [facility] Work Phone: Start: 10-27-2021 End: 10-27-[address] Tang Olguin Work Phone: [facility]-Nuclear Medicine, [facility] Start: 10-24-2021 End: 10-24-[address] Tang Olguin Work Phone: [facility]-Cat Scan, [facility] Start: 10-20-2021 End: 10-20-[address] Tang Olguin Work Phone: [facility]-Laboratory, Specimen Start: 10-19-2021 End: 10-19-[address] Tang Olguin Work Phone: [facility]-Laboratory Start: 10-19-2021 End: 10-19-[address] Tang Olguin Work Phone: [facility] Start: 10-18-2021 Chart abstracting Tang carrillo DO Work Phone: [facility] [place] Start: 09-09-2021 End: 09-09-[address] Tang Olguin Work Phone: [facility] Start: 08-23-2021 End: 08-23-2021 Patient encounter procedure Deysi Mcfarland APRN.RESIDENCE LIFE DIRECTOR Work Phone: [facility] Comment on above: Close exposure to CO VID-19 virus (Primary Dx) Start: 08-12-2021 End: 08-12-[address] Tang Olguin Work Phone: [facility] Start: 07-20-2021 Telephone encounter Tang guillermo DO Work Phone: [facility] Comment on above: Itching Start: 07-20-2021 End: 07-20-2021 Patient encounter procedure Raymond Sen APRN.RESIDENCE LIFE DIRECTOR Work Phone: [facility] Comment on above: Itching (Primary Dx) Start: 07-09-2021 Telephone encounter Tang guillermo DO Work Phone: [facility] [place] Comment on above: Results Start: 07-08-2021 End: 07-08-2021 Patient encounter procedure Tang Olguin DO Work Phone: [facility] Comment on above: Fatigue, unspecified type (Primary Dx); Iron deficiency; Borderline abnormal thyroid function test; Perimenopausal disorder; Situational insomnia Start: 06-26-2021 End: 06-26-2021 Emergency department patient visit Dr. Tang Olguin Work Phone: [facility]-Emergency Department Start: 06-10-2021 End: 06-10-2021 Patient encounter procedure [facility]-Pulmonary Services/Neurology Start: 06-10-2021 Non-patient / Non-visit Dr. Tiana Olguin Work Phone: [facility] Start: 06-09-2021 End: 06-09-2021 Patient encounter procedure [facility]-Laboratory, Specimen Start: 03-23-2021 End: 03-23-2021 Patient encounter procedure [facility]-Outpatient Breast Imaging Start: 03-18-2021 End: 03-18-2021 Subsequent hospital visit by physician [facility] Work Phone: Radiology Comment on above: Left hip pain [M25.5 52] Start: 02-16-2021 End: 02-16-2021 Subsequent hospital visit by physician [facility] Work Phone: Radiology Comment on above: Shortness of breath [R06.02] Start: 06-28-2020 End: 06-28-2020 Subsequent hospital visit by physician [facility] Work Phone: Radiology Comment on above: Left elbow pain [M25 .522] Start: 01-11-2011 End: 01-15-2012 Patient encounter status Tang Olguin DO Work Phone: [facility] Work Phone: Procedures Date Procedure Procedure Detail Performing Clinician Start: 07-23-[address] Tang Olguin DO Work Phone: Start: 07-11-2024 Radex foot complete minimum 3 views Michael Degroot Work Phone: Start: 07-02-2024 X-ray of foot, three or more views Dr. Amanda Olguin DO Work Phone: Start: 05-26-2024 X-ray of chest, PA and lateral views Dr. Tang Olguin DO Work Phone: Start: 05-16-2024 Urnls dip stick/tablet rgnt auto w/o microscopy Tang Olguin DO Work Phone: Start: 02-27-[address] Tang Olguin DO Work Phone: Start: 04-26-[address] Tang Olguin Work Phone: Start: 04-13-2023 Radex foot complete minimum 3 views Steffi SÁNCHEZ Work Phone: Start: 12-11-2022 Plain chest X-ray Dr. Tang Olguin Work Phone: Start: 11-09-2022 Esophagoscopy flexible transoral ultrasound exam Provation Conversion Start: 10-17-[address] Tang Olguin Work Phone: Start: 10-17-2022 History of gastrointestinal tract bypass History of Mitchel-en-Y gastric bypass Raymond Sne APRN.CNP Work Phone: Start: 10-02-2022 US scan of gallbladder Dr. Tang Olguin Work Phone: Start: 10-02-2022 Computed tomography of abdomen and pelvis with contrast Dr. Tang Olguin Work Phone: Start: 07-25-2022 CT of abdomen and pelvis without contrast Dr. Tang Olguin Work Phone: Start: 05-05-[address] Tang Olguin Work Phone: Start: 05-05-[address] Tang Olguin Work Phone: Start: 04-07-2022 Plain chest X-ray Dr. Tang Olguin Work Phone: Start: 02-17-2022 Radex spine cervical 4 or 5 views Tang Olguin DO Work Phone: Start: 02-17-2022 INFLUENZA VACCINE QUADRIVALENT 6 MO - 64 YRS IM Tang Olguin DO Work Phone: Start: 02-16-2022 Plain X-ray of shoulder Dr. Tang Olguin Work Phone: Start: 02-16-2022 Plain x-ray of wrist Dr. Tang Olguin Work Phone: Start: 02-16-2022 X-ray of radius and ulna Dr. Tang Olguin Work Phone: Start: 12-08-2021 Plain chest X-ray Dr. Tang Olguin Work Phone: Start: 12-05-2021 Radiologic exam chest 2 views Silvalola Brock son TECHNICAL SUPPORT ANALYST.RESIDENCE LIFE DIRECTOR Work Phone: Start: 11-16-[address] Tang Olguin Work Phone: Start: 11-09-2021 Urnls dip stick/tablet rgnt auto w/o microscopy Tang Olguin DO Work Phone: Start: 10-27-2021 Radionuclide gastric emptying study Dr. Tang Olguin Work Phone: Start: 10-24-2021 Computed tomography of abdomen and pelvis with contrast Dr. Tang Olguin Work Phone: Start: 07-29-2021 Lipid 1996 panel - Serum or Plasma Niyah camargo TECHNICAL SUPPORT ANALYST.RESIDENCE LIFE DIRECTOR Work Phone: Start: 06-26-2021 CT of abdomen and pelvis without contrast Dr. Tang Olguin Work Phone: Start: 03-23-2021 End: 03-23-2021 Screening mammography Start: 03-18-2021 Radex hip unilateral with pelvis 2-3 views Tang Olguin DO Work Phone: Start: 02-16-2021 Radiologic exam chest 2 views Neva Ponce TECHNICAL SUPPORT ANALYST.RESIDENCE LIFE DIRECTOR Work Phone: Start: 06-28-2020 Radex elbow complete minimum 3 views Gracie Barboza TECHNICAL SUPPORT ANALYST.RESIDENCE LIFE DIRECTOR Work Phone: Start: 11-23-2017 Colonoscopy Tang Olguin DO Work Phone: History of cholecystectomy Histo ry of cholecystectomy Dr. Tang Olguin Work Phone: History of gastroint estinal tract bypass History of Mitchel-en-Y gastric bypass Dr. Tang Olguin Work Phone: History of gastroint estinal tract bypass History of Mitchel-en-Y gastric bypass Tang Olguin DO Work Phone: Lactoferrin measurement Dr. Tang Olguin Work Phone: SARS-CoV-2 & FLU Antigen (Rapid) Dr. Tang Olguin Work Phone: SARS-CoV-2 & FLU Antigen (Rapid) Dr. Tang Olguin Work Phone: Streptococcus pyogen es antigen assay Dr. Tang Olguin Work Phone: Plan of Treatment Date Care Activity Detail Author Start: 11-24-2027 Colonoscopy COLONOSCOPY [facility] Start: 11-24-2027 COLORECTAL CANCER SCREENING COLORECTAL CANCER SCREENING [facility] Start: 11-24-2027 Screening for malign ant neoplasm of colon [facility] Start: 06-27-2027 [facility] Start: 05-17-2027 Diabetes Screening Diabetes Screenin g [facility] Start: 01-25-2027 Urine microalbumin profile [facility] Start: 08-21-2026 Diabetes Screening Diabetes Screenin g [facility] Start: 07-29-2026 Lipid 1996 panel - S alek or Plasma Lipid Screening [facility] Start: 07-29-2026 Lipid panel Lipid Screening [facility] Start: 07-29-2026 LIPID SCREEN LIPID SCREEN [facility] Start: 06-05-2026 Diabetes Screening Diabetes Screenin g [facility] Start: 10-10-2025 DIABETES SCREEN DIABETES SCREEN [facility] Start: 10-10-2025 Diabetes Screening Diabetes Screenin g [facility] Start: 08-19-2025 Annual PCP Team Materials Handler maris Disease Visit Annual PCP Team Chronic Disease Visit [facility] Start: 06-25-2025 Annual PCP Team Materials Handler maris Disease Visit Annual PCP Team Chronic Disease Visit [facility] Start: 06-25-2025 BP Controlled (<130/80) BP Controlle d (<130/80) [facility] Start: 06-23-2025 DIABETES SCREEN DIABETES SCREEN [facility] Start: 06-05-2025 DIABETES SCREEN DIABETES SCREEN [facility] Start: 05-28-2025 DIABETES SCREEN DIABETES SCREEN [facility] Start: 2025 DIABETES SCREEN DIABETES SCREEN [facility] Start: 05-16-2025 Annual PCP Team Materials Handler maris Disease Visit Annual PCP Team Chronic Disease Visit [facility] Start: 05-16-2025 BP Controlled (<130/80) BP Controlle d (<130/80) [facility] Start: 05-16-2025 Covid-19 Vaccine () Covid-19 Vaccine () [facility] Comment on above: Postponed from 11/10 (Declined at this time) Start: 01-06-2025 BP Controlled (<130/80) BP Controlle d (<130/80) [facility] Start: 01-04-2025 DIABETES SCREEN DIABETES SCREEN [facility] Start: 12-05-2024 DIABETES SCREEN DIABETES SCREEN [facility] Start: 12-04-2024 BP Controlled (<130/80) BP Controlle d (<130/80) [facility] Start: 11-24-2024 End: 11-24-2024 Patient encounter procedure 11/24/2024 2:00 PM EDT Office Visit [facility] [place] [address] [place] [id number] Tang Olguin DO [address] [place] [id number] 3 month follow up [facility] Comment on above: 3 month follow up Start: 11-10-2024 Influenza vaccination [facility] Start: 11-03-2024 End: 11-03-2024 Patient encounter procedure 11/03/2024 3:30 PM EDT Office Visit General Surgery [address] [place] [id number] Nelly Yoon MD [address] [place] [id number] Excision of skin lesin General Surgery Comment on above: Excision of skin les in Start: 09-08-2024 Influenza vaccination Influenza Vacc ine (#1) [facility] Comment on above: Postponed from 11/10 (Declined at this time) Start: 08-20-2024 Annual PCP Team Materials Handler maris Disease Visit Annual PCP Team Chronic Disease Visit [facility] Start: 08-20-2024 BP Controlled (<130/80) BP Controlle d (<130/80) [facility] Start: 08-19-2024 End: 08-19-2024 Patient encounter procedure 08/19/2024 10:00 AM EDT Office Visit [facility] [place] [address] [place], [place] [id number] Tang Olguin DO [address] [place] [address] 3 month follow up [facility] [place] Comment on above: 3 month follow up Start: 07-23-2024 Egd transoral biopsy single/multiple EGD BIOPSY SINGLE/MULTIPLE [facility] Start: 07-23-2024 [facility] Start: 07-08-2024 DIABETES SCREEN DIABETES SCREEN [facility] Start: 06-25-2024 End: 09-24-2024 25-hydroxyvitamin D3 [Mass/volume] in Serum or Plasma VITAMIN D 25 HYDROXY Lab Routine Fatigue, unspecified type Expected: 06/25/2024, Expires: 09/24/2024 [facility] Comment on above: Expected: 06/25/2024 , Expires: 09/24/2024 Start: 06-25-2024 End: 09-24-2024 ALK PHOS ISOENZYM BL ALK PHOS ISOENZYM BL Lab Routine Elevated alkaline phosphatase level Expected: 06/25/2024, Expires: 09/24/2024 [facility] Work Phone: Comment on above: Expected: 06/25/2024 , Expires: 09/24/2024 Start: 06-25-2024 End: 09-24-2024 Borrelia burgdorferi IgG and IgM panel - Serum LYME AB LATE >30 DAYS SYMPTOMS Lab Routine Fatigue, unspecified type Expected: 06/25/2024, Expires: 09/24/2024 [facility] Comment on above: Expected: 06/25/2024 , Expires: 09/24/2024 Start: 06-25-2024 End: 09-24-2024 C reactive protein [Mass/volume] in Serum or Plasma C-REACTIVE PROTEIN Lab Routine Myalgia Arthralgia, unspecified joint Expected: 06/25/2024, Expires: 09/24/2024 [facility] Comment on above: Expected: 06/25/2024 , Expires: 09/24/2024 Start: 06-25-2024 End: 09-24-2024 CBC W Auto Differential panel - Blood COMPLETE BLOOD COUNT AND DIFFERENTIAL Lab Routine Elevated alkaline phosphatase level Fatigue, unspecified type Expected: 06/25/2024, Expires: 09/24/2024 [facility] Comment on above: Expected: 06/25/2024 , Expires: 09/24/2024 Start: 06-25-2024 End: 09-24-2024 Cobalamin (Vitamin B12) [Mass/volume] in Serum or Plasma VITAMIN B12 Lab Routine Fatigue, unspecified type Expected: 06/25/2024, Expires: 09/24/2024 [facility] Comment on above: Expected: 06/25/2024 , Expires: 09/24/2024 Start: 06-25-2024 End: 09-24-2024 Comprehensive metabolic 2000 panel - Serum or Plasma COMPREHENSIVE METABOLIC PANEL Lab Routine Elevated alkaline phosphatase level Fatigue, unspecified type Expected: 06/25/2024, Expires: 09/24/2024 [facility] Comment on above: Expected: 06/25/2024 , Expires: 09/24/2024 Start: 06-25-2024 End: 09-24-2024 Creatine kinase [Enzymatic activity/volume] in Serum or Plasma CREATINE KINASE/CK Lab Routine Myalgia Fatigue, unspecified type Expected: 06/25/2024, Expires: 09/24/2024 [facility] Comment on above: Expected: 06/25/2024 , Expires: 09/24/2024 Start: 06-25-2024 End: 09-24-2024 Cyclic citrullinated peptide IgG Ab [Units/volume] in Serum or Plasma CCP ANTIBODY IGG Lab Routine Myalgia Arthralgia, unspecified joint Expected: 06/25/2024, Expires: 09/24/2024 [facility] Comment on above: Expected: 06/25/2024 , Expires: 09/24/2024 Start: 06-25-2024 End: 09-24-2024 Erythrocyte sedimentation rate SEDIMENTATION RATE, WESTERGREN Lab Routine Myalgia Arthralgia, unspecified joint Expected: 06/25/2024, Expires: 09/24/2024 [facility] Comment on above: Expected: 06/25/2024 , Expires: 09/24/2024 Start: 06-25-2024 End: 09-24-2024 Heterophile Ab [Presence] in Serum by Latex agglutination MONOTEST, INFECTIOUS MONO Lab Routine Fatigue, unspecified type Expected: 06/25/2024, Expires: 09/24/2024 [facility] Comment on above: Expected: 06/25/2024 , Expires: 09/24/2024 Start: 06-25-2024 End: 09-24-2024 Iron and Iron binding capacity panel - Serum or Plasma IRON AND TIBC Lab Routine Fatigue, unspecified type Expected: 06/25/2024, Expires: 09/24/2024 [facility] Comment on above: Expected: 06/25/2024 , Expires: 09/24/2024 Start: 06-25-2024 End: 09-24-2024 Magnesium [Mass/volume] in Serum or Plasma MAGNESIUM Lab Routine Myalgia Arthralgia, unspecified joint Expected: 06/25/2024, Expires: 09/24/2024 [facility] Comment on above: Expected: 06/25/2024 , Expires: 09/24/2024 Start: 06-25-2024 End: 09-24-2024 bilirubin panel [Mass/volume] - Serum or Plasma BILIRUBIN FRACTIONATED Lab Routine Elevated alkaline phosphatase level Expected: 06/25/2024, Expires: 09/24/2024 [facility] Comment on above: Expected: 06/25/2024 , Expires: 09/24/2024 Start: 06-25-2024 End: 09-24-2024 Nuclear Ab [Presence] in Serum by Immunoassay ANTOINETTE BLOOD Lab Routine Myalgia Arthralgia, unspecified joint Expected: 06/25/2024, Expires: 09/24/2024 [facility] Comment on above: Expected: 06/25/2024 , Expires: 09/24/2024 Start: 06-25-2024 End: 09-24-2024 Rheumatoid factor [Units/volume] in Serum or Plasma RHEUMATOID FACTOR Lab Routine Myalgia Arthralgia, unspecified joint Expected: 06/25/2024, Expires: 09/24/2024 [facility] Comment on above: Expected: 06/25/2024 , Expires: 09/24/2024 Start: 06-25-2024 End: 09-24-2024 THYROID PEROXIDASE ANTIBODY THYROID PEROXIDASE ANTIBODY Lab Routine Fatigue, unspecified type Borderline abnormal thyroid function test Expected: 06/25/2024, Expires: 09/24/2024 [facility] Comment on above: Expected: 06/25/2024 , Expires: 09/24/2024 Start: 06-25-2024 End: 09-24-2024 Thyrotropin [Units/volume] in Serum or Plasma THYROID STIMULATING HORMONE Lab Routine Fatigue, unspecified type Borderline abnormal thyroid function test Expected: 06/25/2024, Expires: 09/24/2024 [facility] Comment on above: Expected: 06/25/2024 , Expires: 09/24/2024 Start: 06-25-2024 End: 09-24-2024 Thyroxine (T4) free [Mass/volume] in Serum or Plasma T4 FREE/FREE THYROXINE Lab Routine Fatigue, unspecified type Borderline abnormal thyroid function test Expected: 06/25/2024, Expires: 09/24/2024 [facility] Comment on above: Expected: 06/25/2024 , Expires: 09/24/2024 Start: 06-25-2024 End: 09-24-2024 Triiodothyronine (T3) Free [Mass/volume] in Serum or Plasma T3, FREE Lab Routine Fatigue, unspecified type Borderline abnormal thyroid function test Expected: 06/25/2024, Expires: 09/24/2024 [facility] Comment on above: Expected: 06/25/2024 , Expires: 09/24/2024 Start: 06-25-2024 End: 06-25-2024 Patient encounter procedure 06/25/2024 10:40 AM EDT Office Visit [facility] [place] [address] [facility] [place] [address] Tang Olguin, DO [address] [facility] [place] [address] Side effects of meds [facility] [place] Comment on above: Side effects of meds Start: 06-05-2024 Annual PCP Team Materials Handler maris Disease Visit Annual PCP Team Chronic Disease Visit [facility] Start: 06-05-2024 BP Controlled (<130/80) BP Controlle d (<130/80) [facility] Start: 05-16-2024 End: 05-16-2024 Patient encounter procedure 05/16/2024 2:00 PM EST Office Visit [facility] [place] [address] [facility] [place] [address] Tang Olguin DO [address] [place] [place] [address] Knee pain and fibromyalgia [facility] [place] Comment on above: Knee pain and fibrom yalgia Start: 02-27-2024 End: 02-27-2024 Patient encounter procedure 02/27/2024 9:40 AM EST Office Visit [facility] [place] [address] [facility] [place] [address] Tang Olguin DO [address] [place] [place] [address] Weight. [facility] Comment on above: Weight. Start: 12-27-2023 LIPID SCREEN LIPID SCREEN [facility] Start: 11-11-2023 Covid-19 Vaccine ( season) Covid-19 Vaccine ( season) [facility] Start: 11-11-2023 Covid-19 Vaccine ( season) Covid-19 Vaccine ( season) [facility] Start: 11-11-2023 Influenza vaccination [facility] Start: 10-11-2023 ANNUAL PCP TEAM BENCH ASSEMBLY INSPECTOR MARIS DISEASE VISIT ANNUAL PCP TEAM CHRONIC DISEASE VISIT [facility] Start: 08-21-2023 End: 08-21-2023 Patient encounter procedure 08/21/2023 3:00 PM EDT Office Visit [facility] [place] [address] [facility] [place] [address] Tang Olguin DO [address] [place] [address] Low blood sugar concerns [facility] [place] Comment on above: Low blood sugar conc erns Start: 08-21-2023 End: 11-20-2023 CBC W Auto Differential panel - Blood COMPLETE BLOOD COUNT AND DIFFERENTIAL Lab Routine Lightheaded Blood glucose labile Expected: 08/21/2023, Expires: 11/20/2023 [facility] Comment on above: Expected: 08/21/2023 , Expires: 11/20/2023 Start: 08-21-2023 End: 11-20-2023 Comprehensive metabolic 2000 panel - Serum or Plasma COMPREHENSIVE METABOLIC PANEL Lab Routine Lightheaded Blood glucose labile Expected: 08/21/2023, Expires: 11/20/2023 [facility] Work Phone: Comment on above: Expected: 08/21/2023 , Expires: 11/20/2023 Start: 08-21-2023 End: 11-20-2023 Hemoglobin A1c in Blood HEMOGLOBIN A1C Lab Routine Blood glucose labile Expected: 08/21/2023, Expires: 11/20/2023 [facility] Comment on above: Expected: 08/21/2023 , Expires: 11/20/2023 Start: 08-21-2023 End: 11-20-2023 Thyrotropin [Units/volume] in Serum or Plasma THYROID STIMULATING HORMONE Lab Routine Appetite increase Expected: 08/21/2023, Expires: 11/20/2023 [facility] Comment on above: Expected: 08/21/2023 , Expires: 11/20/2023 Start: 08-21-2023 End: 11-20-2023 Thyroxine (T4) free [Mass/volume] in Serum or Plasma T4 FREE/FREE THYROXINE Lab Routine Appetite increase Expected: 08/21/2023, Expires: 11/20/2023 [facility] Comment on above: Expected: 08/21/2023 , Expires: 11/20/2023 Start: 08-21-2023 End: 11-20-2023 Triiodothyronine (T3) Free [Mass/volume] in Serum or Plasma T3, FREE Lab Routine Appetite increase Expected: 08/21/2023, Expires: 11/20/2023 [facility] Comment on above: Expected: 08/21/2023 , Expires: 11/20/2023 Start: 06-24-2023 ANNUAL PCP TEAM BENCH ASSEMBLY INSPECTOR MARIS DISEASE VISIT ANNUAL PCP TEAM CHRONIC DISEASE VISIT [facility] Start: 06-24-2023 BP CONTROLLED (<130/80) BP CONTROLLE D (<130/80) [facility] Start: 05-29-2023 [facility] Start: 05-29-2023 CT angiography of ch est with contrast CTA Chest W/WO Contrast [facility] Start: 05-29-2023 CTA Chest vessels WO and W contrast IV [facility] Start: 05-29-2023 [facility] Start: 04-26-2023 Egd transoral biopsy single/multiple EGD BIOPSY SINGLE/MULTIPLE [facility] Start: 04-26-2023 Patient discharge [facility] Start: 02-17-2023 ANNUAL PCP TEAM BENCH ASSEMBLY INSPECTOR MARIS DISEASE VISIT ANNUAL PCP TEAM CHRONIC DISEASE VISIT [facility] Start: 02-17-2023 COVID-19 VACCINE (#1) COVID-19 VACCI NE (#1) [facility] Comment on above: Postponed from 11/21 (Declined at this time) Start: 01-04-2023 ANNUAL PCP TEAM BENCH ASSEMBLY INSPECTOR MARIS DISEASE VISIT ANNUAL PCP TEAM CHRONIC DISEASE VISIT [facility] Start: 12-27-2022 ANNUAL PCP TEAM BENCH ASSEMBLY INSPECTOR MAIRS DISEASE VISIT ANNUAL PCP TEAM CHRONIC DISEASE VISIT [facility] Start: 12-11-2022 [facility] Start: 12-05-2022 ANNUAL PCP TEAM BENCH ASSEMBLY INSPECTOR MARIS DISEASE VISIT ANNUAL PCP TEAM CHRONIC DISEASE VISIT [facility] Start: 11-10-2022 Covid-19 Vaccine ( season) Covid-19 Vaccine ( season) [facility] Start: 11-10-2022 Influenza vaccination [facility] Start: 11-09-2022 ANNUAL PCP TEAM BENCH ASSEMBLY INSPECTOR MARIS DISEASE VISIT ANNUAL PCP TEAM CHRONIC DISEASE VISIT [facility] Start: 11-09-2022 BP CONTROLLED (<130/80) BP CONTROLLE D (<130/80) [facility] Start: 07-25-2022 CT Abdomen and Pelvi s WO contrast [facility] Start: 07-25-2022 CT of abdomen and pe lvis without contrast Abdomen/Pelvis without Cont [facility] Start: 07-20-2022 BP CONTROLLED (<130/80) BP CONTROLLE D (<130/80) [facility] Start: 07-08-2022 ANNUAL PCP TEAM BENCH ASSEMBLY INSPECTOR MARIS DISEASE VISIT ANNUAL PCP TEAM CHRONIC DISEASE VISIT [facility] Start: 07-08-2022 BP CONTROLLED (<130/80) BP CONTROLLE D (<130/80) [facility] Start: 05-05-2022 Digital breast tomosynthesis bilateral BREAST TOMOSYNTHESIS BI [facility] Start: 04-07-2022 Blood chemistry [facility] Start: 04-07-2022 End: 04-07-2022 [facility] Start: 03-23-2022 Mammography [facility] Start: 03-23-2022 Screening for malign ant neoplasm of breast Mammogram Screening [facility] Start: 01-04-2022 End: 03-06-2022 25-hydroxyvitamin D3 [Mass/volume] in Serum or Plasma [facility] Work Phone: Comment on above: Expected: 01/04/2022 , Expires: 03/06/2022 Start: 01-04-2022 End: 03-06-2022 C reactive protein [Mass/volume] in Serum or Plasma [facility] Work Phone: Comment on above: Expected: 01/04/2022 , Expires: 03/06/2022 Start: 01-04-2022 End: 03-06-2022 CBC panel - Blood by Automated count [facility] Work Phone: Comment on above: Expected: 01/04/2022 , Expires: 03/06/2022 Start: 01-04-2022 End: 03-06-2022 Cobalamin (Vitamin B12) [Mass/volume] in Serum or Plasma [facility] Work Phone: Comment on above: Expected: 01/04/2022 , Expires: 03/06/2022 Start: 01-04-2022 End: 03-06-2022 Comprehensive metabolic 2000 panel - Serum or Plasma [facility] Work Phone: Comment on above: Expected: 01/04/2022 , Expires: 03/06/2022 Start: 01-04-2022 End: 03-06-2022 Erythrocyte sedimentation rate [facility] Work Phone: Comment on above: Expected: 01/04/2022 , Expires: 03/06/2022 Start: 01-04-2022 End: 03-06-2022 Ferritin [Mass/volume] in Serum or Plasma [facility] Work Phone: Comment on above: Expected: 01/04/2022 , Expires: 03/06/2022 Start: 01-04-2022 End: 03-06-2022 Iron and Iron binding capacity panel - Serum or Plasma [facility] Work Phone: Comment on above: Expected: 01/04/2022 , Expires: 03/06/2022 Start: 01-04-2022 End: 03-06-2022 Thyrotropin [Units/volume] in Serum or Plasma [facility] Work Phone: Comment on above: Expected: 01/04/2022 , Expires: 03/06/2022 Start: 12-27-2021 End: 02-26-2022 Extractable nuclear Ab panel - Serum ANTI EDSON ID Lab Routine Multiple joint pain CRP elevated Expected: 12/27/2021, Expires: 02/26/2022 [facility] Work Phone: Comment on above: Expected: 12/27/2021 , Expires: 02/26/2022 Start: 12-27-2021 End: 02-26-2022 Nuclear Ab [Presence] in Serum by Immunoassay ANTOINETTE BLOOD Lab Routine Multiple joint pain CRP elevated Expected: 12/27/2021, Expires: 02/26/2022 [facility] Work Phone: Comment on above: Expected: 12/27/2021 , Expires: 02/26/2022 Start: 12-27-2021 End: 02-26-2022 Rheumatoid factor [Units/volume] in Serum or Plasma RHEUMATOID FACTOR BL Lab Routine Multiple joint pain CRP elevated Expected: 12/27/2021, Expires: 02/26/2022 [facility] Work Phone: Comment on above: Expected: 12/27/2021 , Expires: 02/26/2022 Start: 12-05-2021 End: 02-04-2022 CBC W Auto Differential panel - Blood [facility] Work Phone: Comment on above: Expected: 12/05/2021 , Expires: 02/04/2022 Start: 12-05-2021 End: 02-04-2022 Comprehensive metabolic 2000 panel - Serum or Plasma [facility] Work Phone: Comment on above: Expected: 12/05/2021 , Expires: 02/04/2022 Start: 12-05-2021 End: 02-04-2022 Fibrin D-dimer FEU [Mass/volume] in Platelet poor plasma [facility] Work Phone: Comment on above: Expected: 12/05/2021 , Expires: 02/04/2022 Start: 11-16-2021 Colonoscopy w/biopsy single/multiple COLONOSCOPY AND BIOPSY [facility] Work Phone: Start: 11-16-2021 Egd transoral biopsy single/multiple EGD BIOPSY SINGLE/MULTIPLE [facility] Work Phone: Start: 11-16-2021 Patient discharge [facility] Work Phone: Start: 11-10-2021 Influenza vaccination INFLUENZA (#1) [facility] Start: 10-20-2021 Elastase, pancreatic (el-1), fecal; quantitative [facility] Work Phone: Start: 10-20-2021 Fat [Presence] in Stool [facility] Work Phone: Start: 10-20-2021 Protein measurement [facility] Work Phone: Start: 10-19-2021 Immunoglobulin measurement [facility] Work Phone: Start: 08-10-2022 Serum immunofixation [facility] Work Phone: Start: 10-19-2021 [facility] Work Phone: Start: 09-08-2021 SHINGRIX VACCINE (2 of 2) NEUMANN GRIX VACCINE (2 of 2) [facility] Start: 08-26-2021 Patient referral [facility] Work Phone: Start: 08-23-2021 End: 09-06-2021 Influenza virus A and B RNA and SARS-CoV-2 (COVID-19) N gene panel - Respiratory specimen by AYAZ with probe detection COVID WITH FLUA+B, ROUTINE Microbiology Routine Close exposure to COVID-19 virus Expected: 08/23/2021, Expires: 09/06/2021 [facility] Work Phone: Comment on above: Expected: 08/23/2021 , Expires: 09/06/2021 Start: 08-12-2021 Patient referral [facility] Work Phone: Start: 06-09-2021 Sars-cov-2 detection by dna/rna SARS-COV-2 COVID-19 AMP PRB [facility] Work Phone: Start: 05-21-2021 Pneumococcal Vaccine : 50+ (1 of 1 - PCV) Pneumococcal Vaccine: 50+ (1 of 1 - PCV) [facility] Start: 05-21-2021 SHINGRIX VACCINE (1 of 2) NEUMANN GRIX VACCINE (1 of 2) [facility] Start: 05-21-2021 Zoster Vaccines (1 of 2) Zoste r Vaccines (1 of 2) [facility] Start: 05-21-2016 COLOGUARD (FIT-DNA) COLOGUARD (FIT-D NA) [facility] Start: 05-21-[address] COLONOGRAPHY [facility] Start: 05-21-2016 FECAL OCCULT BLOOD FECAL OCCULT BLOO D [facility] Start: 05-21-2016 Screening for malign ant neoplasm of colon [facility] Start: 05-21-2016 [facility] Start: 10-31-2012 HEPATITIS B (3 of 3 - 19+ 3-dose series) HEPATITIS B (3 of 3 - 19+ 3-dose series) [facility] Start: 10-31-2012 Hepatitis B Vaccine (3 of 3 - 19+ 3-dose series) Hepatitis B Vaccine (3 of 3 - 19+ 3-dose series) [facility] Start: 08-23-2012 HEPATITIS B (3 of 3 - 3-dose series) HEPATITIS B (3 of 3 - 3-dose series) [facility] Start: 2011 Screening for malign ant neoplasm of breast Mammogram [facility] Start: 05-21-1993 DTaP/Tdap/Td Vaccine s (1 - Tdap) DTaP/Tdap/Td Vaccines (1 - Tdap) [facility] Start: 05-21-1992 Screening for malign ant neoplasm of cervix [facility] Start: 05-21-1990 ONE PNEUMOVAX PRIOR TO AGE 65 ONE PNEUMOVAX PRIOR TO AGE 65 [facility] Start: 05-21-1989 BP CONTROLLED (<130/80) BP CONTROLLE D (<130/80) [facility] Start: 05-21-1989 Hepatitis C screening Hepatitis C Sc [facility] Start: 05-21-1977 PNEUMOCOCCAL (1 - PCV) PNEUMOCOCCAL (1 - PCV) [facility] Start: 05-21-1977 Pneumococcal vaccination [facility] Start: 05-21-1976 COVID-19 VACCINE (#1) COVID-19 VACCI NE (#1) [facility] Start: 05-21-1976 COVID-19 VACCINE (1) COVID-19 VACCIN E (1) [facility] Start: 05-21-1972 MMR Vaccines (1 of 1 - Standard series) MMR Vaccines (1 of 1 - Standard series) [facility] Start: 1971 COVID-19 VACCINE (#1) COVID-19 VACCI NE (#1) [facility] Start: 1971 Hepatitis B Vaccines (1 of 3 - 3-dose series) Hepatitis B Vaccines (1 of 3 - 3-dose series) [facility] Start: 1971 HIV screening HIV Screening [facility] Start: 1971 Lipid panel Lipid Panel [facility] Start: 1971 Screening for malign ant neoplasm of colon [facility] Start: 1971 Yearly Adult Physical Yearly Adult P [facility] Albumin [Moles/volum e] in Serum or Plasma [facility] Work Phone: Albumin/Globulin ratio [facility] Work Phone: CBC W Auto Different ial panel - Blood COMPLETE BLOOD COUNT AND DIFFERENTIAL Lab Routine Lightheaded Blood glucose labile 08/22/2023 9:37 AM EDT [facility] Comprehensive metabo lic 2000 panel - Serum or Plasma COMPREHENSIVE METABOLIC PANEL Lab Routine Lightheaded Blood glucose labile 08/22/2023 9:37 AM EDT [facility] End: 04-04-2025 DBT Breast - bilateral screening KAVIN SCREENING W SANDY Radiology Routine Encounter for screening mammogram for breast cancer 1 Occurrences starting 03/05/2024 until 04/04/2025 [facility] Work Phone: Comment on above: 1 Occurrences starti ng 03/05/2024 until 04/04/2025 End: 12-05-2022 ECG COMPLETE ECG COMPLETE ECG Routine Acute cough Pleuritic pain 1 Occurrences starting 12/05/2021 until 12/05/2022 [facility] Work Phone: Comment on above: 1 Occurrences starti ng 12/05/2021 until 12/05/2022 End: 02-17-2023 ECG COMPLETE ECG COMPLETE ECG Routine Other chest pain 1 Occurrences starting 02/17/2022 until 02/17/2023 [facility] Work Phone: Comment on above: 1 Occurrences starti ng 02/17/2022 until 02/17/2023 Electrophoresis: [id number] [facility] Work Phone: Electrophoresis: sebastian ma globulin [facility] Work Phone: Fat [Mass/mass] in Stool [facility] Work Phone: Fat.neutral [Presenc e] in Stool [facility] Work Phone: Globulin measurement [facility] Work Phone: Hemoglobin A1c in Blood HEMOGLOB IN A1C Lab Routine Blood glucose labile 08/22/2023 9:37 AM EDT [facility] IgA [Mass/volume] in Serum or Plasma [facility] Work Phone: IgE [Units/volume] i n Serum or Plasma [facility] Work Phone: IgG [Mass/volume] in Serum or Plasma [facility] Work Phone: IgM [Mass/volume] in Serum or Plasma [facility] Work Phone: End: 05-26-2023 KAVIN SCREENING KAVIN SCREENING Radiology Routine Encounter for screening mammogram for breast cancer 1 Occurrences starting 04/26/2022 until 05/26/2023 [facility] Work Phone: Comment on above: 1 Occurrences starti ng 04/26/2022 until 05/26/2023 Neutrophil cytoplasm ic Ab.classic [Units/volume] in Serum [facility] Work Phone: P-ANCA measurement [facility] Work Phone: Patient Education [facility] Work Phone: Patient referral [facility] Work Phone: Protein electrophore sis panel - Serum or Plasma [facility] Work Phone: Protein measurement [facility] Work Phone: End: 03-19-2023 Radex spine cervical 4 or 5 views XR CERV OTHER 4V AP/LAT/OBL Radiology Routine Left arm pain Left hand pain Paresthesia 1 Occurrences starting 02/17/2022 until 03/19/2023 [facility] Work Phone: Comment on above: 1 Occurrences starti ng 02/17/2022 until 03/19/2023 Radex spine cervical 4 or 5 views XR CERV OTHER 4V AP/LAT/OBL Radiology Routine Left arm pain Left hand pain Paresthesia 02/17/2022 10:42 AM EST [facility] Work Phone: Radionuclide gastric emptying study [facility] Work Phone: Serum protein electrophoresis [facility] Work Phone: Streptococcus pyogen es antigen assay Group A Streptococcus Rapid Screen [facility] Work Phone: Thyrotropin [Units/v olume] in Serum or Plasma THYROID STIMULATING HORMONE Lab Routine Appetite increase 08/22/2023 9:37 AM EDT [facility] Thyroxine (T4) free [Mass/volume] in Serum or Plasma T4 FREE/FREE THYROXINE Lab Routine Appetite increase 08/22/2023 9:37 AM EDT [facility] Triiodothyronine (T3 ) Free [Mass/volume] in Serum or Plasma T3, FREE Lab Routine Appetite increase 08/22/2023 9:37 AM EDT [facility] Immunizations Immunization Date Immunization Notes Care Provider Nickie jaimes 02-17-2022 influenza, injectabl e, quadrivalent, contains preservative Tang Olguin DO Work Phone: [facility] Work Phone: 02-17-2022 influenza virus vaccine, unspecified formulation Raymond Mckinley TECHNICAL SUPPORT ANALYST.RESIDENCE LIFE DIRECTOR Work Phone: [facility] 10-18-2021 zoster vaccine recombinant Tang Olguin DO Work Phone: [facility] Work Phone: 07-14-2021 zoster vaccine recombinant Raymond Mckinley TECHNICAL SUPPORT ANALYST.RESIDENCE LIFE DIRECTOR Work Phone: [facility] 03-18-2021 influenza, injectabl e, quadrivalent, contains preservative Tang Olguin DO Work Phone: [facility] Work Phone: 02-21-2019 measles, mumps and rubella virus vaccine Tang Olguin DO Work Phone: [facility] Work Phone: 11-10-2018 influenza virus vaccine, unspecified formulation Tang Olguin DO Work Phone: [facility] 11-10-2018 influenza, injectabl e, quadrivalent, preservative free Tang Olguin DO Work Phone: [facility] 11-10-2018 influenza, seasonal, injectable Tang Olguin DO Work Phone: [facility] 04-01-2018 tuberculin skin test ; purified protein derivative solution, intradermal Silva Lew APRN.RESIDENCE LIFE DIRECTOR Work Phone: [facility] 01-04-2018 influenza, injectabl e, quadrivalent, preservative free Tang Olguin DO Work Phone: [facility] 01-04-2018 influenza, seasonal, injectable Tang Olguin DO Work Phone: [facility] 12-10-2017 Influenza virus vaccine [facility] 12-10-2017 influenza, seasonal, injectable, preservative free Tang Olguin DO Work Phone: [facility] 01-25-2017 influenza, injectabl e, quadrivalent, contains preservative Tang Olguin DO Work Phone: [facility] 01-25-2017 tetanus toxoid, redu trisha diphtheria toxoid, and acellular pertussis vaccine, adsorbed Tang Olguin DO Work Phone: [facility] 11-30-2015 influenza, injectabl e, quadrivalent, preservative free Dr. Tang Olguin Work Phone: [facility] 11-30-2015 influenza, seasonal, injectable [facility] 11-30-2015 influenza, seasonal, injectable, preservative free Tang Olguin DO Work Phone: [facility] 03-11-2014 influenza, injectabl e, quadrivalent, preservative free Dr. Tang Olguin Work Phone: [facility] 03-11-2014 influenza, seasonal, injectable [facility] 03-11-2014 influenza, seasonal, injectable, preservative free Tang Olguin DO Work Phone: [facility] 01-07-2013 tuberculin skin test ; purified protein derivative solution, intradermal Silva Lew APRN.RESIDENCE LIFE DIRECTOR Work Phone: [facility] 05-31-2012 hepatitis B vaccine, adult dosage Tang Olguin DO Work Phone: [facility] 05-31-2012 hepatitis B vaccine, unspecified formulation Tang Olguin DO Work Phone: [facility] 05-03-2012 hepatitis B vaccine, adult dosage Tang Olguin DO Work Phone: [facility] 01-11-2011 influenza virus vaccine, unspecified formulation Tang Olguin DO Work Phone: [facility] Work Phone: 12-27-2009 influenza virus vaccine, unspecified formulation Tang Olguin DO Work Phone: [facility] Work Phone: 12-23-2008 influenza virus vaccine, unspecified formulation Tang Olguin DO Work Phone: [facility] Work Phone: 01-02-2006 tetanus toxoid, redu trisha diphtheria toxoid, and acellular pertussis vaccine, adsorbed Tang Olguin DO Work Phone: [facility] Work Phone: Payers Date Payer Category Payer Self-pay [id number] 2023 Private Health Insurance [id number] 2023 Unknown 2023 Unknown [id number] 2021 Private Health Insurance [employer]ET[employer] A ETNA CHOICE POS II [id number] 2021-Present [phone] [address] [place] [address] POS [id number] 2021 Private Health Insurance [id number] 2016 Medicaid [facility] MEDICAID [id number] 2016-Present [phone] [address] [place] [address] Medicaid [id number] 2016 Medicaid [id number] 2016 Unknown [id number] 2016 Medicaid [id number] 1971 Unknown [id number]. 356 Unknown [id number]. 462 Unknown [id number] [id number]. 462 Unknown [id number] [id number]. 462 Unknown [id number] [id number]. 462 Unknown [id number] [id number]. 462 Unknown [id number] [id number]. 462 Unknown [id number] 2.16.840.1.968463.3.579.2. 462 Unknown [id number] 2.16.840.1.106767.3.579.2. 462 Unknown [id number] 2.16.840.1.264608.3.579.2. 462 Unknown [id number] 2.16.840.1.113026.3.579.2. 462 Unknown [id number] 2.16.840.1.226525.3.579.2. 462 Unknown [id number] 2.16.840.1.683363.3.579.2. 462 Unknown [id number] 2.16.840.1.760754.3.579.2. 462 Unknown [id number] 2.16.840.1.452974.3.579.2. 462 Unknown [id number] 2.16.840.1.615666.3.579.2. 462 Unknown [id number] 2.16.840.1.365178.3.579.2. 462 Unknown [id number] [id number]. 462 Unknown [id number] [id number]. 462 Unknown [id number]. 462 Unknown [id number]. 462 Social History Date Type Detail Facility Start: 12-21-2020 End: 05-29-2023 Tobacco smoking status [facility] Unknown if ever smoked [facility] Start: 10-30-2019 None [facility] Start: 10-30-2019 With Family [facility] Start: 07-29-2020 Non-smoker [facility] Start: 1970 Sex Assigned At Female [facility] Start: 04-12-2011 End: 12-27-2021 Tobacco smoking status [facility] Never smoked tobacco [facility] Work Phone: Start: 06-28-2020 End: 07-08-2021 Alcohol intake Current drinker of alcohol (finding) [facility] Start: 01-19-2020 End: 02-16-2022 History SDOH Alcohol Frequency 2 [facility] Start: 01-19-2020 End: 02-16-2022 History SDOH Alcohol Std Drinks 1 [facility] Start: 08-18-2016 History SDOH Alcohol Comment social [facility] Start: 08-19-2019 End: 02-16-2022 History SDOH Social Connections Phone 5 [facility] Start: 07-16-2019 Education 15 [facility] Start: 05-29-2020 End: 02-08-2022 Exposure to SARS-CoV-2 (event) Not sure [facility] Work Phone: Start: 04-12-2011 End: 12-27-2021 Tobacco use and exposure Smokeless tobacco non-user [facility] Start: 02-16-2022 History SDOH Alcohol Std Drinks 0 [facility] Start: 02-16-2022 History SDOH Financial 3 [facility] Start: 2022 End: 09-29-2024 Alcohol intake Ex-drinker (finding) [facility] Start: 02-16-2022 End: 07-19-2022 History of Social function [facility] Start: 02-16-2022 End: 07-19-2022 Social connection and isolation panel [facility] Do you belong to any clubs or organizations such as latter day groups, unions, [employer] or athletic groups, or school groups? Yes [facility] Are you now , , , , never or living with a partner? [facility] How often to you hav e a drink containing alcohol? Never [facility] How many standard drinks containing alcohol do you have on a typical day? Patient does not drink [facility] How hard is it for y ou to pay for the very basics like food, housing, medical care, and heating Somewhat hard [facility] Do you feel stress - tense, restless, nervous, or anxious, or unable to sleep at night because your mind is troubled all the time - these days [OSQ] Not at all [facility] (I/We) worried mango er (my/our) food would run out before (I/we) got money to buy more. Never true [facility] In the past 12 month s, was there a time when you were not able to pay the mortgage or rent on time? No [facility] Start: 11-25-2018 Gender identity Identifies as female gender (finding) [facility] Start: 06-22-2021 Sexual orientation Heterosexual (korina jean) [facility] Start: 1970 Sex Assigned At Not on file [facility] Work Phone: Are you now , , , , never or living with a partner? Living with partner [facility] How often to you hav e a drink containing alcohol? Monthly or less [facility] How many standard drinks containing alcohol do you have on a typical day? 1 or 2 [facility] How hard is it for y ou to pay for the very basics like food, housing, medical care, and heating Not very hard [facility] Do you feel stress - tense, restless, nervous, or anxious, or unable to sleep at night because your mind is troubled all the time - these days [OSQ] To some extent [facility] How hard is it for y ou to pay for the very basics like food, housing, medical care, and heating Hard [facility] Do you feel stress - tense, restless, nervous, or anxious, or unable to sleep at night because your mind is troubled all the time - these days [OSQ] Very much [facility] Start: 06-04-2024 End: 07-07-2024 Sex Female (finding) [facility] Are you now , , , , never or living with a partner? [facility] Do you feel stress - tense, restless, nervous, or anxious, or unable to sleep at night because your mind is troubled all the time - these days [OSQ] Only a little [facility] NEGATED: Highlighted row Not [facility] Medical Equipment Procedure Code Equipment Code Equipment Origin al Text Equipment Identifier Dates Tempe Sut 4.5mm Bcmps Crkscr Ft Nd [id number] Start: 10-28-2019 Tempe Sut 4.5mm Bcmps Crkscr Ft Nd [id number] Start: 10-28-2019 Clip Endscp Flsh Smpl Rlb - [id number] Start: 08-13-2012 Comment on above: Description: Filnoahie clip Matrix Clarix Amniotic Membrane Umbilical Cord 6x3cm Tissue Allograft - [id number] Start: 10-28-2019 Comment on above: Description: Date an d integrity of package shown to dr. Gaitan and tech Test blood sugar (s) 2 times daily. Dx: Other DM Code fluctuating blood glucose, hypoglycemia Insulin: No [id number] Start: 08-21-2023 Test blood sugar (s) 2 times daily. Dx: Other DM Code fluctuating blood glucose, hypoglycemia. Insulin: No [id number] Start: 08-21-2023 Goals Date Patient Goal Desired Activity /State Functional Status Date Assessment Result Facility 10-07-2014 Are you deaf, or do you have serious difficulty hearing No 10/07/2014 3:57 PM EDT Adriana Bernal MA No [facility] 10-07-2014 Are you blind, or do you have serious difficulty seeing, even when wearing glasses No 10/07/2014 3:57 PM EDT Adriana Bernal MA No [facility] 10-07-2014 Do you have serious difficulty walking or climbing stairs No 10/07/2014 3:57 PM EDT Adriana Bernal MA [facility] 10-07-2014 Do you have difficul ty dressing or bathing No 10/07/2014 3:57 PM EDT Adriana Bernal MA [facility] 10-07-2014 Because of a physica l, mental, or emotional condition, do you have difficulty doing errands alone such as visiting a physician's office or shopping No 10/07/2014 3:57 PM EDT Adriana Bernal MA [facility] Mental Status Date Assessment Result Facility 07-23-2024 Cognitive function Level Of Cons ciousness Appropriate;Drowsy [facility] Work Phone: 05-29-2023 Cognitive function Voice/Name [facility] Work Phone: 04-26-2023 Cognitive function Voice/Name [facility] Work Phone: 12-11-2022 Cognitive function Voice/Name [facility] Work Phone: 07-25-2022 Cognitive function Level Of Cons ciousness Awake;Alert;Appropriate;Fol lows Commands [facility] Work Phone: 04-07-2022 Cognitive function Voice/Name [facility] Work Phone: 12-08-2021 Cognitive function Level Of Cons ciousness Awake;Alert;Appropriate;Fol lows Commands [facility] Work Phone: 11-16-2021 Cognitive function Touch/Shaking [facility] Work Phone: 06-26-2021 Cognitive function Level Of Cons ciousness Awake;Alert;Appropriate;Fol lows Commands [facility] Work Phone: 10-07-2014 Because of a physica l, mental, or emotional condition, do you have serious difficulty concentrating, remembering, or making decisions No 10/07/2014 3:57 PM EDT Adriana Bernal MA No [facility] Clinical Notes 02-15-2016 to 09-29-2024 Nelly Yoon MD - 09/29/2024 9:30 AM EDTTelephone Encounter - Alicia Castle MA - 09/15/2024 1:51 PM EDTTelephone [facility] 09/15/2024 1:51 PM EDT Note Date & Type Note Facility 09-29-2024 Note HNO ID: [id number] Author: NELLY YOON MD Service: ? Author Type: Physician Type: Progress Notes Filed: 09/29/2024 10:11 Note Text: Clarisa Mendes 1970 REFERRING PHYSICIAN: No ref. provider found CHIEF COMPLAINT: Consult (cyst) HPI: The patient is a 54 year old female presents with skin lesion She has noted this for about a year She has noted increase and decrease in its size It is causing irritation as it is easily abraded with shaving and clothing catches on the area. PAST MEDICAL HISTORY Diagnosis Date Abdominal pain 02/15/2016 Abdominal pain, epigastric Anxiety state, unspecified Aortic aneurysm ascending thoracic Asthma (HCC) Calcaneal spur 05/24/2011 Carpal tunnel syndrome, right 05/2013 moderate Colon polyps Depressive disorder, not elsewhere classified Diaphragmatic hernia without mention of obstruction or gangrene DVT (deep venous thrombosis) ([facility]) post foot surgery, x 2 interval Endometriosis ? HX not confirmed Fibromyalgia muscle pain GERD (gastroesophageal reflux disease) Hayfever 10/04/2010 HSV (herpes simplex virus) infection Hypercholesteremia Hypertension 01/2017 Impaired fasting glucose 08/2013 5.7% A1C Mild intermittent asthma without complication ([facility]) 10/27/2019 NNEKA (obstructive sleep apnea) 10/27/2019 Patellofemoral [...] uterine ablation Current Outpatient Medications Medication Sig hyoscyamine sublingual (LEVSIN SL) 0.125 mg Dissolve 0.125 mg under the tongue every 4 hours as needed. escitalopram oxalate (LEXAPRO) 10 mg tablet Take 1 tablet by mouth daily at bedtime. For mood rOPINIRole (REQUIP) 0.25 mg tablet Take 1 tablet by mouth two times a day as needed (restless legs). albuterol HFA (PROVENTIL HFA, VENTOLIN HFA) 90 mcg/actuation inhaler Inhale 2 puffs as instructed every 4 hours as needed for wheezing/shortness of breath. pantoprazole DR (PROTONIX) 40 mg tablet Take 1 tablet by mouth once daily. valACYclovir (VALTREX) 500 mg tablet Take 1 tablet by mouth two times a day. blood sugar diagnostic (BLOOD GLUCOSE TEST) test [...] Each as directed. Dx: wheezing, recurrent acute b (more content not included)... [facility] 09-29-2024 History of Present illness Narrative Clarisa Mendes 1970 REFERRING PHYSICIAN: No ref. provider found CHIEF COMPLAINT: Consult (cyst) HPI: The patient is a 54 year old female presents with skin lesion She has noted this for about a year She has noted increase and decrease in its size It is causing irritation as it is easily abraded with shaving and clothing catches on the area. PAST MEDICAL HISTORY Diagnosis Date Abdominal pain 02/15/2016 Abdominal pain, epigastric Anxiety state, unspecified Aortic aneurysm ascending thoracic Asthma (HCC) Calcaneal spur 05/24/2011 Carpal tunnel syndrome, right [...] 5.7% A1C Mild intermittent asthma without complication (HCC) 10/27/2019 NNEKA (obstructive sleep apnea) 10/27/2019 Patellofemoral [...] trigger finger release LAPAROSCOPIC TUBAL LIGATION/RING/CLIP 2012 alessnadro elliott vesicouterine adhesions LAPAROSCOPY DIAGNOSTIC 2016 extensive [...] uterine ablation Current Outpatient Medications Medication Sig hyoscyamine sublingual (LEVSIN SL) 0.125 mg Dissolve 0.125 mg under the tongue every 4 hours as needed. escitalopram oxalate (LEXAPRO) 10 mg tablet Take 1 tablet by mouth daily at bedtime. For mood rOPINIRole (REQUIP) 0.25 mg tablet Take 1 tablet by mouth two times a day as needed (restless legs). albuterol HFA (PROVENTIL HFA, VENTOLIN HFA) 90 mcg/actuation inhaler Inhale 2 puffs as instructed every 4 hours as needed for wheezing/shortness of breath. pantoprazole DR (PROTONIX) 40 mg tablet Take 1 tablet by mouth once daily. valACYclovir (VALTREX) 500 mg tablet Take 1 tablet by mouth two times a day. blood sugar diagnostic (BLOOD GLUCOSE TEST) test [...] capsule by mouth twice daily. Open capsules (Patient not taking: Reported on 09/29/2024) srmvwy-pwvivnwi-ssjvbui (CREON) 36,000-114,000- 180,000 unit delayed release capsule Take 3 capsules by mouth three times daily with meals. (Patient not taking: Reported on 09/29/2024) No current facility-administered medications for this visit. ALLERGIES: Miconazole, Milnacipran, Rivaroxaban, Morphine, Atorvastatin, Coumadin [Warfarin Sodium], Dilaudid [Hydromorphone (Bulk)], Lyrica [Pregabalin], and Prednisone PERSONAL HISTORY: Social History Tobacco Use Smoking status: Never Smokeless tobacco: Never Vaping Use Vaping status: Never Used Substance Use Topics Alcohol use: Not Currently Drug use: No FAMILY HISTORY Problem Relation Age of Onset Hypertension Mother Lipids Mother Alcohol/Drug Mother Allergies Mother Alcohol/Drug Father Thyroid Sister other (fibromyalgia) Sister other (brain) Sister surgery brain too big for her skull (plate) Blindness Sister Alcohol/Drug Brother Emphysema Maternal Grandmother Emphysema Maternal Grandfather Heart Paternal Grandmother Anesthesia Problems No Family History REVIEW OF SYSTEMS: General - denies fevers HEENT - denies trauma/infections Resp - denies coughing up blood, denies breathing difficulties Cardiac - denies chest pain GI - denies chronic abdominal pain, denies vomiting up of blood - denies blood in urine Endocrine - denies diabetes Psych - denies hallucinations PHYSICAL EXAMINATION: General: The patient is 54 year old female, well nourished, well hydrated in no acute distress. The patient is oriented to time, place, and person. VITALS: Blood pressure 100/72, pulse 82, temperature 36.3 C (97.4 F), weight 85.1 kg (187 lb 9.6 oz), last menstrual period 07/11/2012, SpO2 94%. Body mass index is 34.31 kg/m . Head: Normal cephalic, atraumatic Eyes: pupils are equally round, sclera are clear/anicteric, wearing glasses Neck is supple with no tracheal deviation Cardiac: normal heart sounds, regular Respiratory: Normal respiratory excursion and pattern. Abdominal exam: benign Extremities: no clubbing, cyanosis or edema. Skin - lesion of posterior right knee area about 1 cm lightly pgimented and raised Neuro: non focal Psych: normal mood The sensitive examination was discussed with the Patient or Patient's Authorized Glass Cut Off Tender. As applicable, any other physician, advance practice provider, medical student, or other health professional student that will be observing or involved in the sensitive examination for educational or training purposes was discussed with the Patient or Authorized Glass Cut Off Tender. The Patient or Authorized Glass Cut Off Tender has agreed to proceed with the sensitive examination. (Sensitive examination includes inspection and/or palpation of the breasts, pelvis, prostate and anorectal regions) Assessment IMPRESSION: skin lesion causing irritation PLAN: I have discussed the above with the patient. I have offered excision of this skin lesion. I have explained the procedure to the patient. To be done in the office using local anesthesia I have counseled the patient as to the risks of the procedure, including but not limited to: infection, bleeding, injury to any blood vessels/nerves, scar tissue, wound infections, complications of anesthesia, etc. - the patient understands. The patient wishes to proceed. I have confirmed and edited as necessary, the PFSH and ROS obtained by others. Consultation requested by Dr. Tang Olguin for an opinion regarding patient's skin lesion. My final recommendations will be communicated back to the requesting physician by way of shared Medical record or letter to requesting physician via [place] mail. . Diagnoses: (L98.9) Skin lesion (primary encounter diagnosis) (R20.8) Dysesthesia . Medical Decision Making: Risk: Low: Low risk from testing/treatment Medical Decision Making Level: 2 - Straightforward Nelly Yoon MD documented in this encounter [facility] 09-15-2024 Telephone encounter Note Turned into TE Alicia Castle MA [facility] 09-15-2024 Miscellaneous Notes Turned into RICKEY Castle MA documented in this encounter [facility] 08-20-2024 Note HNO ID: [id number] Author: TANG OLGUIN, DO Service: ? Author Type: Physician Type: Progress Notes Filed: 08/20/2024 22:45 Note Text: CC: Clarisa Mendes is a 54 year old female who presents to the office for follow up HPI: At OFFICE VISIT on 05/16/2024 Fibromyalgia, recently has been flared up over the winter months with increased joint pain and muscle aches, no obvious swelling or skin color changes or rashes, No known trigger other than has had some stressors in her life Overweight/obesity, weight now at 184 lbs, feels she is stagnant in her ability to continue to lose weight. This is frustrating to her. Has had bariatric surgery. She is interested in starting Adipex to see if this helps her + chronic fatigue + urinary frequency At follow up on 06/25/2024 Obesity, weight now at 190 lbs, was at 184 lbs. Didn't tolerate the Phentermine medication - caused her shortness of breath and GI upset. Has been struggling with a lot of severe fatigue and increasing joint pain and muscle pains- especially in her hands. Hands feel stiff and swollen. Also has had a lot of foggy brain symptoms Last anti EDSON panel in 2021. CRP and ESR labs in May were okay/normal. Thyroid labs have been at borderline Also noticing when she eats a carbohydrate such as a muffin, her blood glucose tends to drop- causes her to feel jittery and shaky and clammy. Doesn't always check her blood sugar at this time. Having RUQ discomfort abdomen, + nausea. No vomiting. Is going to be seeing Dr. Cortez [employer]ing Attendant next week for opinion and follow up as well. Currently Continues to have all her abdominal symptoms of early filling, nausea, epigastric and RUQ abd pain. Seeing Valet Park[employer] Attendant Dr. Cortez. Diagnosed with pancreatic exocrine insufficiency. Obesity, weight now at 186 lbs, was at 184 lbs. Didn't tolerate the Phentermine medication - caused her shortness of breath and GI upset. Has been struggling with a lot of severe fatigue and increasing joint pain and muscle pains- especially in her hands. Hands feel stiff and swollen. Also has had a lot of foggy brain symptoms Mood, know s that her anxiety and depression is contributing to her health symptoms. She is taking lexapro 10 mg a day, willing for dose to be increased. Her and her will be packing up and moving to a new home to help with the stress that her father in law is causing her. No SI or HI PAST MEDICAL HISTORY Diagnosis Date Abdominal pain 02/15/2016 Abdominal pain, epigastric Anxiety state, unspecified Aortic aneurysm ascending thoracic Asthma (HCC) Calcaneal spur 05/24/2011 Carpal tunnel syndrome, right 05/2013 moderate Colon polyps Depressive disorder, not elsewhere classified Diaphragmatic hernia without mention of obstruction or gangrene DVT (deep venous thrombosis) ([facility]) post foot surgery, x 2 interval Endometriosis ? HX not confirmed Fibromyalgia muscle pain GERD (gastroesophageal reflux disease) Hayfever 10/04/2010 HSV (herpes simplex virus) infection Hypercholesteremia Hypertension 01/2017 Impaired fasting glucose 08/2013 5.7% A1C Mild intermittent asthma without complication ([facility]) 10/27/2019 NNEKA (obstructive sleep apnea) 10/27/2019 Patellofemoral disorder 03/09/2009 PONV (postoperative nausea and vomiting) 03/17/2015 PTSD (post-traumatic stress disorder) per counseling center rheumatoid arthritis Right carpal tunnel syndrome 06/30/2013 Right hand paresthesia 04/28/2013 Seizures ([facility]) Snoring Temporomandibular joint disorders, unspecified Toenail deformity [...] trigger finger release LAPAROSCOPIC TUBAL LIGATION/RING/CLIP 2012 earl saw vesicouterine adhesions LAPAROSCOPY DIAGNOSTIC 2016 extensive KEVYN, severe LAPS SURG CHOLECYSTECTOMY W/CHOLANGIOGRAPHY 05/02/2006 LAPS W/VAG HYSTERECT 250 GM/ANDRMVL TUBEAND/OVARIES 2014 [facility] bilateral salpingectomy, scar tissue LIDOCAINE IV treatments-Mohit Duran PAST SURGICAL HISTORY OF 01/13/2006 Bilateral Breast Reduction PAST SURGICAL HISTORY OF 06/14/2011 left foot for plantar fascii (more content not included)... [facility] 08-20-2024 History of Present illness Narrative CC: Clarisa Mendes is a 54 year old female who presents to the office for follow up HPI: At OFFICE VISIT on 05/16/2024 Fibromyalgia, recently has been flared up over the winter months with increased joint pain and muscle aches, no obvious swelling or skin color changes or rashes, No known trigger other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 Right Foot - Pain, New, Swelling, Numbness 07/03/2024 patient kicked frame of bed. [facility]. [facility] Radiology Diagnostic study note [facility] Imaging Services [address] [place] [address] Foot min 3 Views MR#: [id number] Acct: [id number] Name: CLARISA MNEDES Rep #: [id number] : 1970 F 54 From: Zen Wang DO PCP: Dr. Tang Olguin DO Status: RE G CLI Study:Foot min 3 Views Date of Exam: Exam# [id number] Ordering Dr: [facility] miguel[facility] Dominique EXAM: Right foot radiographs CLINICAL HISTORY: Pain COMPARISON: None TECHNIQUE: Three views of the right foot FINDINGS: See impression RAD/Foot min 3 Views IMPRESSION: Negative for acute displaced fracture or malalignment. Mild 1st MTP joint osteoarthritis. Moderate calcaneal enthesopathy. Thickening at the insertion of the Achilles tendon likely related to chronic tendinopathy. Reading Location: [facility] CC: Dr. Tang Olguin DO; PRINCESS Claudio ~ Head Cook: Signed [facility]04-16-2025 NoteHNO ID: [id number] Author: TANG OLGUIN DO Service: ? Author Type: Physician Type: Progress Notes Filed: 06/25/2024 12:16 Note Text: CC: Clarisa Mendes is a 54 year old female who presents to the office for follow up HPI: At last OFFICE VISIT on 05/16/2024 Fibromyalgia, recently has been flared up over the winter months with increased joint pain and muscle aches, no obvious swelling or skin color changes or rashes, No known trigger other than has had some stressors in her life Overweight/obesity, weight now at 184 lbs, feels she is stagnant in her ability to continue to lose weight. This is frustrating to her. Has had bariatric surgery. She is interested in starting Adipex to see if this helps her + chronic fatigue + urinary frequency Currently Obesity, weight now at 190 lbs, was at 184 lbs. Didn't tolerate the Phentermine medication - caused her shortness of breath and GI upset. Has been struggling with a lot of severe fatigue and increasing joint pain and muscle pains- especially in her hands. Hands feel stiff and swollen. Also has had a lot of foggy brain symptoms Last anti EDSON panel in 2021. CRP and ESR labs in May were okay/normal. Thyroid labs have been at borderline Also noticing when she eats a carbohydrate such as a muffin, her blood glucose tends to drop- causes her to feel jittery and shaky and clammy. Doesn't always check her blood sugar at this time. Having RUQ discomfort abdomen, + nausea. No vomiting. Is going to be seeing Dr. Cortez Valet Parking Attendant next week for opinion and follow up as well. PAST MEDICAL HISTORY Diagnosis Date Abdominal pain [...] uterine ablation Current Outpatient Medications Medication Sig pantoprazole DR (PROTONIX) 40 mg tablet Take 1 tablet by mouth once daily. escitalopram oxalate (LEXAPRO) 5 mg tablet Take 1 tablet by mouth daily at bedtime. For mood valACYclovir (VALTREX) 500 mg tablet Take 1 tablet by mouth two times a day. rOPINIRole (REQUIP) 0.5 mg tablet Take 1-2 tablets by mouth at bedtime as needed (restless legs). blood sugar diagnostic (BLOOD GLUCOSE TEST) test strip Test blood sugar(s) 2 times daily. Dx: Other DM Code fluctuating blood glucose, hypoglycemia Insulin: No Lancets Test blood sugar(s) 2 times daily. Dx: Other DM Code fluctuating blood glucose, hypoglycemia. Insulin: No cet (more content not included)...[facility]04-16-2025 History of Present illness Narrative* Tang Olguin, DO - 06/25/2024 11:09 AM EDT CC: Clarisa Mendes is a 54 year old female who presents to the office for follow up HPI: At last OFFICE VISIT on 05/16/2024 Fibromyalgia, recently has been flared up over the winter months with increased joint pain and muscle aches, no obvious swelling or skin color changes or rashes, No known trigger other than has had some stressors in her life Overweight/obesity, weight now at 184 lbs, feels she is stagnant in her ability to continue to loseweight. This is frustrating to her. Has had bariatric surgery. She is interested in starting Adipexto see if this helps her + chronic fatigue + urinary frequency Currently Obesity, weight now at 190 lbs, was at 184 lbs. Didn't tolerate the Phentermine medication - causedher shortness of breath and GI upset. Has been struggling with a lot of severe fatigue and increasing joint pain and muscle pains- especially in her hands. Hands feel stiff and swollen. Also has had a lot of foggy brain symptoms Last anti EDSON panel in 2021. CRP and ESR labs in May were okay/normal. Thyroid labs have been at borderline Also noticing when she eats a carbohydrate such as a muffin, her blood glucose tends to drop- causes her to feel jittery and shaky and clammy. Doesn't always check her blood sugar at this time. Having RUQ discomfort abdomen, + nausea. No vomiting. Is going to be seeing Dr. Cortez Valet Parking Attendant next week for opinion and follow up as well. PAST MEDICAL HISTORY Diagnosis Date Abdominal pain [...] DX W/COLLJ SPEC WHEN PFRMD 06/24/2004 Colonoscopy/Dr. Jabour COLONOSCOPY FLX DX W/COLLJ SPEC WHEN PFRMD [...] uterine ablation Current Outpatient Medications Medication Sig pantoprazole DR (PROTONIX) 40 mg tablet Take 1 tablet by mouth once daily. escitalopram oxalate (LEXAPRO) 5 mg tablet Take 1 tablet by mouth daily at bedtime. For mood valACYclovir (VALTREX) 500 mg tablet Take 1 tablet by mouth two times a day. rOPINIRole (REQUIP) 0.5 mg tablet Take 1-2 tablets by mouth at bedtime as needed (restless legs). blood sugar diagnostic (BLOOD GLUCOSE TEST) test strip Test blood sugar(s) 2 times daily. Dx: OtherDM Code fluctuating blood glucose, hypoglycemia Insulin: No [...] every 8 hours as needed for nausea/vomiting. vulkep-urqdgxpz-exmrasi (CREON) 36,000-114,000- 180,000 unit delayed release capsule Take 3 capsules by mouth three times daily with meals. Miscellaneous Medical Supply (BLOOD PRESSURE CUFF) 1 Each once daily. ipratropium-albuterol (DUONEB) 0.5 mg-3 mg(2.5 mg base)/3 mL nebu Inhale 3 mL as instructed every 4hours as needed for wheezing/shortness of breath. Nebulizers 1 Each as directed. Dx: wheezing, recurrent acute bronchitis, Nebulizer Accessories misc 1 Each as directed. Dx: wheezing, recurrent acute bronchitis, Tubing andmask for nebulizer No current facility-administered medications for this visit. ALLERGIES Allergen Reactions Miconazole Itching Milnacipran Mental Status Change, Other: See Comments Duson weird. Rivaroxaban Other: See Comments, GI Upset [...] Vaping Use Vaping status: Never Used Substance Use Topics Alcohol use: Not Currently Drug use: No ROS: See HPI PE: BP 112/72 Pulse 65 Resp 14 Wt 190 lb (86.2kg) LMP 07/11/2012 Gen: A&OX3, NAD, non-toxic appearing HEENT: PERRLA, EOMs intact b/l, nares without drainage, pharynx without erythema, exudate, lesions,or drainage. Uvula midline. MMM, wearing glasses Neck: No LAD, no thyromegaly, no meningismus. CV: RRR, no murmur Lungs: CTA b/l, no wheezing Skin: No rashes, lesions, or wounds on exposed skin. + diffuse muscle aches and joint pains- especially joints of the hands + fatigued appearing Well dressed, cooperative Abd: soft, + RUQ abd discomfort without obvious masses. No edema legs, normal peripheral pulses ASSESSMENT/PLAN: 1. Myalgia - ICD9: 729.1, ICD10: M79.10 (primary diagnosis) Recheck labs Unsure cause of symptoms Concerns that she is not eating enough protein in her diet to help prevent her symptoms as well as fluid intake with her hx of bariatric surgery. Didn't tolerate adipex well for weight loss either. Needs to consider seeing a Supervisor [employer] as well - C-REACTIVE PROTEIN - SEDIMENTATION RATE, WESTERGREN - ANTOINETTE BLOOD - RHEUMATOID FACTOR - CCP ANTIBODY IGG - CREATINE KINASE/CK - MAGNESIUM 2. Arthralgia, unspecified joint - ICD9: 719.40, ICD10: M25.50 Recheck labs Unsure cause of symptoms Concerns that she is not eating enough protein in her diet to help prevent her symptoms as well as fluid intake with her hx of bariatric surgery. Didn't tolerate adipex well for weight loss either. Needs to consider seeing a Supervisor [employer] as well - C-REACTIVE PROTEIN - SEDIMENTATION RATE, WESTERGREN - ANTOINETTE BLOOD - RHEUMATOID FACTOR - CCP ANTIBODY IGG - MAGNESIUM 3. Elevated alkaline phosphatase level - ICD9: 790.5, ICD10: R74.8 Recheck labs Unsure cause of symptoms Concerns that she is not eating enough protein in her diet to help prevent her symptoms as well as fluid intake with her hx of bariatric surgery. Didn't tolerate adipex well for weight loss either. Needs to consider seeing a Supervisor [employer] as well F/u with Dr. Cortez Valet Parking Attendant as well. - ALK PHOS ISOENZYM BL - BILIRUBIN FRACTIONATED - COMPREHENSIVE METABOLIC PANEL - COMPLETE BLOOD COUNT AND DIFFERENTIAL 4. Fatigue, unspecified type - ICD9: 780.79, ICD10: R53.83 Recheck labs Unsure cause of symptoms Concerns that she is not eating enough protein in her diet to help prevent her symptoms as well as fluid intake with her hx of bariatric surgery. Didn't tolerate adipex well for weight loss either. Needs to consider seeing a Supervisor [employer] as well F/u with Dr. Cortez Valet Parking Attendant as well. - COMPREHENSIVE METABOLIC PANEL - COMPLETE BLOOD COUNT AND DIFFERENTIAL - THYROID STIMULATING HORMONE - T4 FREE/FREE THYROXINE - T3, FREE - IRON AND TIBC - VITAMIN B12 - VITAMIN D 25 HYDROXY - THYROID PEROXIDASE ANTIBODY - CREATINE KINASE/CK - MONOTEST, INFECTIOUS MONO - LYME AB LATE >30 DAYS SYMPTOMS 5. Hypoglycemia - ICD9: 251.2, ICD10: E16.2 Recheck labs Unsure cause of symptoms Concerns that she is not eating enough protein in her diet to help prevent her symptoms as well as fluid intake with her hx of bariatric surgery. Didn't tolerate adipex well for weight loss either. Needs to consider seeing a Supervisor [employer] as well F/u with Dr. Cortez Valet Parking Attendant as well. 6. Borderline abnormal thyroid function test - ICD9: 794.5, ICD10: R94.6 Recheck labs Unsure cause of symptoms Concerns that she is not eating enough protein in her diet to help prevent her symptoms as well as fluid intake with her hx of bariatric surgery. Didn't tolerate adipex well for weight loss either. Needs to consider seeing a Supervisor [employer] as well F/u with Dr. Cortez Valet Parking Attendant as well. - THYROID STIMULATING HORMONE - T4 FREE/FREE THYROXINE - T3, FREE - THYROID PEROXIDASE ANTIBODY 7. Class 1 obesity with body mass index (BMI) of 34.0 to 34.9 in adult, unspecified obesity type, unspecified whether serious comorbidity present - ICD9: 278.00, V85.34, ICD10: E66.811, Z68.34 Recheck labs Unsure cause of symptoms Concerns that she is not eating enough protein in her diet to help prevent her symptoms as well as fluid intake with her hx of bariatric surgery. Didn't tolerate adipex well for weight loss either. Needs to consider seeing a Supervisor [employer] as well F/u with Dr. Cortez Valet Parking Attendant as well. Tang Olguin DO I spent 45 minutes in the visit, with more than 50% of the total nyba-yx-xpyt time of the visit in counseling / coordination of care. Return if no improvement. Follow up with Tang Olguin DO. To ER if develops chest pain, shortness of breath. Discussed risks, benefits, alternatives, and potential side effects of medications. Patient/Guardian expressed understanding and agreed with the plan. See patient instructions. Tang Olguin DO [address] [place] [address] documented [facility]04-[facility] Telephone encounter Note * Telephone Encounter - Alesha Madrigal LPN - 06/16/2024 5:16 PM EDT Patient has been identified by name and date of : Patient phones for refill(s): Requested Prescriptions Pending Prescriptions Disp Refills pantoprazole DR (PROTONIX) 40 mg tablet 180 tablet 0 Sig: Take 1 tablet by mouth once daily. Date of last office visit in primary care: 05/16/2024 Date of next office visit in primary care: 06/25/2024 Please advise. Thank you. Alesha Madrigal LPN. [facility]04-07-[facility] Miscellaneous Notes* Telephone Encounter - Alesha Riley LPN - 06/16/2024 5:16 PM EDT Patient has been identified by name and date of : Patient phones for refill(s): Requested Prescriptions Pending Prescriptions Disp Refills pantoprazole DR (PROTONIX) 40 mg tablet 180 tablet 0 Sig: Take 1 tablet by mouth once daily. Date of last office visit in primary care: 05/16/2024 Date of next office visit in primary care: 06/25/2024 Please advise. Thank you. Alesha Madrigal LPN. documented in this encounterLuther[facility]03-28-2025 Telephone encounter Note * Telephone Encounter - Alicia Castle MA - 06/06/2024 2:51 PM EDT Faxed Alicia Castle MA [facility]03-28-[facility] Miscellaneous Notes* Telephone Encounter - Alicia Castle MA - 06/06/2024 2:51 PM EDT Faxed Alicia Castle MA * Telephone Encounter - Neva Shields APRN.CNP - 06/05/2024 2:28 PM EDT This note was completed, did it get sent? Neva Shields APRN.CNP * Telephone Encounter - Nelly Myrick LPN - 05/16/2024 3:02 PM EST I did reach out to Dr. Prajapati's office they will call her but are requesting office note. Could you please finish so I could fax that to them. * Telephone Encounter - Tang Olguin DO - 05/16/2024 2:52 PM EST Please call Dr. Prajapati office for [facility] at [facility] to let her know that I think Lorna is in needof HRT hormone therapy options to help her. Please have the office make an appointment Tang Olguin DO documented in this encounterLuther[facility]03-27-2025 Telephone encounter Note * Telephone Encounter - Neva Shields APRN.CNP - 06/05/2024 2:28 PM EDT This note was completed, did it get sent? Neva Shields APRN.CNP [facility]03-18-[facility] Telephone encounter Note* Telephone Encounter - Karen Middleton MA - 05/27/2024 12:07 PM EDT Notified via [employer] she should make an appointment to discuss medication and possible side effects. Karen Middleton MA [facility]03-18-2025 Miscellaneous Notes* Telephone Encounter - Karen Middleton MA - 05/27/2024 12:07 PM EDT Notified via [employer] she should make an appointment to discuss medication and possible side effects. Karen Middleton MA documented in this encounterLutheran Hospital03-17-2025 Evaluation note* Diagnosis Onset Date Resolution Status Admit Date URI (upper respiratory infection) resolved May 26, 2024 4:11pm Chronic post-traumatic stres s disorder (PTSD) acute June 06, 2024 9:34am Hot flashes acute June 06 025 9:34am Lichen sclerosus acute June 062024 9:34am Personal history of other venous thrombosis and embolism acute arch 2024 9:34am Vaginal atrophy acute May 9:34am Contusion of right lesser toe(s) without damage to nail, initial encounter acute July 02 4:45pm Way's esophagus chronic July 04, 2024 8:01am Dilated cbd, acquired chronic Apr 2024 8:01am Exocrine pancreatic insufficiency chronic July 04, 2024 8:01am Gastritis chronic July 04 8:01am Iron deficiency anemia chronic Ap 2024 8:01am [facility] Work Phone: 1(757) 445-656603-17-2025 Evaluation note* Diagnosis Onset Date Resolution Status Admit Date URI (upper respiratory infection) resolved May 26, 2024 4:11pm Chronic post-traumatic stres s disorder (PTSD) acute June 06, 2024 9:34am Hot flashes acute June 06, 2 025 9:34am Lichen sclerosus acute June 062024 9:34am Personal history of other venous thrombosis and embolism acute M arch 2024 9:34am Vaginal atrophy acute May 9:34am Contusion of right lesser toe(s) without damage to nail, initial encounter acute July 02 4:45pm Way's esophagus chronic July 04, 2024 8:01am Dilated cbd, acquired chronic Apr 2024 8:01am Exocrine pancreatic insufficiency chronic July 04, 2024 8:01am Gastritis chronic July 04 8:01am Iron deficiency anemia chronic Ap 2024 8:01am Diarrhea acute July 23, 2024 10:15am Early satiety acute July 23, 2 025 10:15am Way's esophagus chronic July 102024 10:15am Exocrine pancreatic insufficiency chronic July 23, 2024 1 0:15am Iron deficiency anemia chronic Ma 2024 10:15am [facility] Work Phone: 1(669) 196-156203-17-2025 Radiology Diagnostic study note [facility] Imaging Services [address] [place], [place] [address] Chest PA and Lateral MR#: [id number] Acct: [id number] Name: CLARISA MENDES Rep #: [id number] : 1970 F 54 From: Kenyetta Willis MD PCP: Dr. Tang Olguin DO Status: RE G CLI Study:Chest PA and Lateral Date of Exam: 05/26/24 Exam# [id number] Ordering Dr: St miguelito Dominique PA PA PROCEDURE: CHEST PA AND LATERAL 05/26/2024 REASON FOR EXAM: COUGH TECHNIQUE: Frontal view of the chest. COMPARISON: 01/07/2024 FINDINGS: The heart size is normal. No focal consolidation. No pneumothorax. No pleural effusion. RAD/Chest PA and Lateral IMPRESSION: No Acute Findings. Reading Location: [facility] CC: Dr. Tang Olguin DO; PRINCESS Claudio ~ Head Cook: Signed [facility]03-07-2025 Telephone encounter Note* Telephone Encounter - Nelly Myrick LPN - 05/16/2024 3:02 PM EST I did reach out to Dr. Prajapati's office they will call her but are requesting office note. Could you please finish so I could fax that to them. [facility]03[facility] Telephone encounter Note* Telephone Encounter - Tang Ogluin DO - 05/16/2024 2:52 PM EST Please call Dr. Prajapati office for [facility] [employer] [facility] at [facility] to let her know that I think Lorna is in needof HRT hormone therapy options to help her. Please have the office make an appointment Tang Olguin DO [facility]03-[facility] Instructions* Patient Instructions* Tang Olguin DO - 05/16/2024 2:51 PM EST Need for pelvic floor exercises and strengthening such as KEGEL exercises - 10 per day documented in this encounterLutheran Hospital03-07-2025 NoteHNO ID: [id number] Author: TANG OLGUIN DO Service: ? Author Type: Physician Type: Progress Notes Filed: 05/29/2024 12:51 Note Text: CC: Clarisa Mendes is a 53 year old female who presents to the office for follow up HPI: At last OFFICE VISIT August 21, 2023 Concerns for hypoglycemia and sometimes hypeglycemia- no [...] of hunger, even after her bariatric surgery Currently Fibromyalgia, recently has been flared up over the winter months with increased joint pain and muscle aches, no obvious swelling or skin color changes or rashes, No known trigger other than has had some stressors in her life Overweight/obesity, weight now at 184 lbs, feels she is stagnant in her ability to continue to lose weight. This is frustrating to her. Has had bariatric surgery. She is interested in starting Adipex to see if this helps her + chronic fatigue + urinary frequency PAST MEDICAL HISTORY Diagnosis Date Abdominal pain [...] uterine ablation Current Outpatient Medications Medication Sig escitalopram oxalate (LEXAPRO) 5 mg tablet Take 1 tablet by mouth daily at bedtime. For mood Phentermine HCl (ADIPEX-P) 37.5 mg tablet Take 1 tablet by mouth once daily for 30 days. BMI 33.[address] (PROTONIX) 40 mg tablet Take 1 tablet by mouth once daily. valACYclovir (VALTREX) 500 mg tablet Take 1 tablet by mouth two times a day. rOPINIRole (REQUIP) 0.5 mg tablet Take 1-2 tablets by mouth at bedtime as needed (restless legs). blood sugar diagnostic (BLOOD GLUCOSE TEST) test strip Test blood sugar(s) 2 times daily. 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 He is helping her with medication adjustments. + Fatigue, frustrated with constant feeling of hunger, even after her bariatric surgery Currently Fibromyalgia, recently has been flared up over the winter months with increased joint pain and muscle aches, no obvious swelling or skin color changes or rashes, No known trigger other than has had some stressors in her life Overweight/obesity, weight now at 184 lbs, feels she is stagnant in her ability to continue to loseweight. This is frustrating to her. Has had bariatric surgery. She is interested in starting Adipexto see if this helps her + chronic fatigue + urinary frequency PAST MEDICAL HISTORY Diagnosis Date Abdominal pain 02/15/2016 Abdominal pain, epigastric Anxiety state, unspecified Aortic aneurysm (HCC) ascending thoracic Asthma Calcaneal spur 05/24/2011 Carpal tunnel syndrome, right 05/2013 moderate Colon polyps Depressive disorder, not elsewhere classified Diaphragmatic hernia without mention of obstruction or gangrene DVT (deep venous thrombosis) [facility] post foot surgery, x 2 interval Endometriosis [...] uterine ablation Current Outpatient Medications Medication Sig escitalopram oxalate (LEXAPRO) 5 mg tablet Take 1 tablet by mouth daily at bedtime. For mood Phentermine HCl (ADIPEX-P) 37.5 mg tablet Take 1 tablet by mouth once daily for 30 days. BMI 33.[address] (PROTONIX) 40 mg tablet Take 1 tablet by mouth once daily. valACYclovir (VALTREX) 500 mg tablet Take 1 tablet by mouth two times a day. rOPINIRole (REQUIP) 0.5 mg tablet Take 1-2 tablets by mouth at bedtime as needed (restless legs). blood sugar diagnostic (BLOOD GLUCOSE TEST) test strip Test blood sugar(s) 2 times daily. Dx: OtherDM Code fluctuating blood glucose, hypoglycemia Insulin: No [...] every 8 hours as needed for nausea/vomiting. bnhkcp-xitcfovg-scarish (CREON) 36,000-114,000- 180,000 unit delayed release capsule Take 3 capsules by mouth three times daily with meals. Miscellaneous Medical Supply (BLOOD PRESSURE CUFF) 1 Each once daily. ipratropium-albuterol (DUONEB) 0.5 mg-3 mg(2.5 mg base)/3 mL nebu Inhale 3 mL as instructed every 4hours as needed for wheezing/shortness of breath. Nebulizers 1 Each as directed. Dx: wheezing, recurrent acute bronchitis, Nebulizer Accessories misc 1 Each as directed. Dx: wheezing, recurrent acute bronchitis, Tubing andmask for nebulizer No current facility-administered medications for this visit. ALLERGIES Allergen Reactions Miconazole Itching Milnacipran Mental Status Change, Other: See Comments Duson weird. Rivaroxaban Other: See Comments, GI Upset [...] Vaping Use Vaping status: Never Used Substance Use Topics Alcohol use: Not Currently Drug use: No ROS: See HPI PE: BP 100/60 Pulse 76 Temp (Src) 97.5 (Temporal) Resp 16 Wt 184 lb (83.5kg) LMP 07/11/2012 Gen: A&OX3, NAD, non-toxic appearing HEENT: PERRLA, EOMs intact b/l, nares without drainage, pharynx without erythema, exudate, lesions,or drainage. Uvula midline. Neck: No LAD, no thyromegaly, no meningismus. CV: RRR, no murmur Lungs: CTA b/l, no wheezing Skin: No rashes, lesions, or wounds on exposed skin. + diffuse muscle aches and joint pains + fatigue ASSESSMENT/PLAN: 1. Urinary frequency - ICD9: 788.41, ICD10: R35.0 (primary diagnosis) recurrent - Patient education for prevention given - UA DIP, URINE (POC) 2. Perimenopausal disorder - ICD9: 627.9, ICD10: N95.9 rx as below Titrate up as needed. No SI or HI - ESCITALOPRAM 5 MG TABLET 3. Menopause syndrome - ICD9: 627.2, ICD10: N95.1 rx as below Titrate up as needed. No SI or HI Labs as ordered. - THYROID STIMULATING HORMONE - T4 FREE/FREE THYROXINE 4. IFG (impaired fasting glucose) - ICD9: 790.21, ICD10: R73.01 Labs as ordered Diet controlled. Need for weight loss - HEMOGLOBIN A1C - THYROID STIMULATING HORMONE - T4 FREE/FREE THYROXINE - PHENTERMINE 37.5 MG TABLET 5. Fibromyalgia - ICD9: 729.1, ICD10: M79.7 - C-REACTIVE PROTEIN - SEDIMENTATION RATE, WESTERGREN - COMPREHENSIVE METABOLIC PANEL - COMPLETE BLOOD COUNT AND DIFFERENTIAL 6. Class 1 obesity with body mass index (BMI) of 33.0 to 33.9 in adult, unspecified obesity type, unspecified whether serious comorbidity present - ICD9: 278.00, V85.33, ICD10: E66.811, Z68.33 Stable - Pharmacological intervention She is aware of possible SE with medication, f/u in 3 months and prn - PHENTERMINE 37.5 MG TABLET Tang Olguin DO Return if no improvement. Follow up with Tang Olguin DO. To ER if develops chest pain, shortness of breath. Discussed risks, benefits, alternatives, and potential side effects of medications. Patient/Guardian expressed understanding and agreed with the plan. See patient instructions. Tang Olguin DO [address] [place] [address] documented in this encounterLutheran Hospital03-01-2025 Consult note Author Ej Awad [facility] Note Date/Time July 23, 2024 1:36p [facility] Medical Records Department [address] [place] [address] Anesthesia Postop Eval II 07/23/24 1306 MR#: [id number] Acct: [id number] Name: CLARISA MENDES Rep #:[id number] : 1970 54 From: Ej Awad MD PCP: Dr. 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 Spontaneous unlabored Yes 07/23/24 12:59 CRYSTAL SYRUP MAKER.TNES respirations Mental status nausea No 07/23/24 12:59 CRYSTAL SYRUP MAKER.TNES Vomiting No 07/23/24 12:59 CRYSTAL SYRUP MAKER.TNES Anesthesia Postop Eval I: Fluid Summary Crystalloid volume administer 800 07/23/24 12:59 CRYSTAL SYRUP MAKER.TNES (ml) Colloids volume administered ( ml) Blood Product volume administered (ml) Total IV fluid infused 800 07/23/24 12:59 CRYSTAL SYRUP MAKER.TNES Anesthesia Postop Eval I: Summary Notes Anesthesia Complication No 07/23/24 12:59 CRYSTAL SYRUP MAKER.TNES Anesthesia Complication Comment: Post-operative progress note Anesthesia: Postop Eval II Evaluation Mental status: Awake Pain Level: 0 nausea: No Vomiting: No 07/23/24 1306 <Electronically signed by Ej Awad MD > Date _ Ej Peacock Signature: Date CC: ~ Signed [facility] Work Phone: 1(765) 981-638612-25-2024 NotePatient Outreach (INTMMN) CLARISA MENDES ([id number]) 1970 F NFR Date Time Provider Department 03/05/24 TANG OLGUIN [facility]MMN During your visit today, we recorded the following information about you: Allergies As of Date: 03/05/2024 Noted Allergy Reaction MICONAZOLE 01/13/2004 9 - Itching MILNACIPRAN 07/19/2011 1 - Mental Status Change 14 - Other: See Comments Comments: Duson weird. RIVAROXABAN 12/02/2014 14 - Other: See [...] PREDNISONE 12/27/2021 9 - Itching Date Reviewed: 12/05/2023 Reviewed by: Adriana Bernal MA - Fully Assessed Visit Diagnosis:Encounter for screening mammogram for breast cancer [Z12.31] Order(s):KAVIN SCREENING W SANDY [[id number]] Order #: [id number] FUTURE Prescriptions as of 03/10/2024 - escitalopram oxalate (LEXAPRO) 5 mg tablet [...] at bedtime as needed (restless legs). - blood sugar diagnostic (BLOOD GLUCOSE TEST) [...] once daily. Rinse mouth after use. - fluticasone (FLOVENT HFA) 110 mcg/actuation inhaler [...] 8 hours as needed for nausea/vomiting. - brfgit-mtrkdcoq-wbjviwa (CREON) 36,000-114,000- 180,000 unit delayed release capsule [...] for nebulizer Problem List As Of Date 03/05/2024 Noted Resolved HYPERTROPHY OF BREAST [N62] 01/13/2004 05/18/2006 Endometriosis [617] 04/22/2014 Anxiety state [F41.1] Moderate single current episode of major depres* TM JOINT DISORDER, UNSPEC [M26.609] 05/18/2006 Unspecified Myalgia and Myositis [CHJ6567] 11/12/2009 Other and unspecified hyperlipidemia [E78.5] 03/30/2005 Personal history of colonic polyps [Z86.0100] 03/15/2006 07/01/2010 PAIN ABDOMEN( Right Upper Quadrant) [...] Diarrhea [R19.7] 05/04/2010 07/01/2010 Vertigo [R42] 10/04/2010 Hayfever [J30.1] 10/04/2010 07/25/2016 Routine general medical examination at [facility]*01/11/2011 01/15/2012 Class: Chronic Routine gynecological examination [Z01.419] 01/11/2011 01/15/2012 Class: Chronic RLS (restless legs syndrome) [G25.81] 01/11/2011 Anjel (more content not included)...[facility]12-18-2024 Evaluation note* Diagnosis Onset Date Resolution Status Admit Date Acute sinusitis, unspecified acute February 27, 2024 10:20am Contact with or exposure to other viral diseases acute February 262023 10:20am Mid back pain on right side acute February 27, 2024 10:20am URI (upper respiratory infection) acute May 26, 2024 4:11pm [facility] Work Phone: 1(332) 864-993110-28-2024 History of Present illness Narrative* Steffi Alanis PA - 01/07/2024 10:31 AM EDT 53-year-old female presents for chest heaviness, chest pain, nasal congestion. Patient states that she started getting cold about a week ago with nasal congestion. She has had a very mild cough. She states this morning when she got up she felt like something was sitting on her chest. She states her chest still feels heavy. No radiation of pain. She does feel short of breath. History of asthma, but states she does not feel like she is wheezing. Lungs clear on exam. Pulse ox 97% on room air. Atthis time due to chest heaviness/chest pain, I did recommend full evaluation in the emergency room.Patient would like to take herself to the ER. She will go to ER now. [facility]-28-[facility]24 NoteHNO ID: [id number] Author: STEFFI ALANIS PA Service: ? Author Type: Physician Deli Department Manager Type: Progress Notes Filed: 01/07/2024 10:32 Note Text: 53-year-old female presents for chest heaviness, chest pain, nasal congestion. Patient states that she started getting cold about a week ago with nasal congestion. She has had a very mild cough. She states this morning when she got up she felt like something was sitting on her chest. She states her chest still feels heavy. No radiation of pain. She does feel short of breath. History of asthma, but states she does not feel like she is wheezing. Lungs clear on exam. Pulse ox 97% on room air. At this time due to chest heaviness/chest pain, I did recommend full evaluation in the emergency room. Patient would like to take herself to the ER. She will go to ER now.[facility]10-04-[facility] Telephone encounter Note* Telephone Encounter - Alicia Castle MA - 12/14/2023 11:26 AM EDT Prescription Refill Information The patient has been [...] Castle MA December 14, 2023 11:26 AM [facility] Miscellaneous Notes* Telephone Encounter - Alicia Castle MA - 12/14/2023 11:26 AM EDT Prescription Refill Information The patient has been [...] 14, 2023 11:26 AM documented in this encounterL[facility]10-03-2024 Telephone encounter Note * Telephone Encounter - Alicia Castle MA - 12/13/2023 11:41 AM EDT See refill encounter Alicia Castle MA [facility]-03-2024 Miscellaneous Notes* Telephone Encounter - Alicia Castle MA - 12/13/2023 11:41 AM EDT See refill encounter Alicia Castle MA documented in this encounterLuther[facility]10-[facility]-2024 Telephone encounter Note * Telephone Encounter - Alicia Castle MA - 12/13/2023 11:34 AM EDT Prescription Refill Information The patient has been [...] Castle MA December 13, 2023 11:36 AM [facility] Miscellaneous Notes* Telephone Encounter - Alicia Castle MA - 12/13/2023 11:34 AM EDT Prescription Refill Information The patient has been [...] 13, 2023 11:36 AM documented in this encounterLuther[facility] Hospital09-25-2024 NoteHNO ID: [id number] Author: FITO TATE MD Service: ? Author Type: Physician [...] capsule by mouth twice daily. Open capsules rjgkel-udbglwlo-hcusqbc (CREON) 36,000-114,000- 180,000 unit delayed release capsule Take 3 capsules by mouth three times daily with meals. No current facility-administered medications for this visit. ALLERGIES: ALLERGIES Allergen Reactions Miconazole Itching Milnacipran Mental Status Change, Other: See Comments Duson weird. Rivaroxaban Other: See Comments, GI Upset [...] and NSAID contraindication from bypass surgery. Continue whlx-hgh-gjelilq acetaminophen. Discussed options for further treatment to include consult to specialist focusing on TMJ pain: dentist, oral maxillofacial surgeon, physical therapy. Fito Tate, [facility]09-25-2024 History of Present illness Narrative* Fito Tate MD - 12/05/2023 10:31 AM EDT Patient presents with: Head Congestion: dry cough, fatigue. right ear pain x 2 weeks HPI: Right ear discomfort for a couple weeks. Pain has been sharp for a couple days. The pain is radiating down the neck to the right shoulder and her trigeminal neuralgia is aggravated on the right parietal. Positive symptoms: dry Cough, right Earache, some Sinus pressure/Nasal Congestion, scratchy throat,Fatigue, Negative symptoms: Shortness of breath, Fever, Chills, [...] Test blood sugar(s) 2 times daily. Dx: OtherDM Code fluctuating blood glucose, hypoglycemia Insulin: No [...] nebu Inhale 3 mL as instructed every 4hours as needed for wheezing/shortness of breath. Nebulizers 1 Each as directed. Dx: wheezing, recurrent acute bronchitis, Nebulizer Accessories misc 1 Each as directed. Dx: wheezing, recurrent acute bronchitis, Tubing andmask for nebulizer omeprazole (PRILOSEC) 40 mg capsule Take 1 capsule by mouth twice daily. Open capsules anvmzk-abntlcej-bftkdbl (CREON) 36,000-114,000- 180,000 unit delayed release capsule Take 3 capsules by mouth three times daily with meals. No current facility-administered medications for this visit. ALLERGIES: ALLERGIES Allergen Reactions Miconazole Itching Milnacipran Mental Status Change, Other: See Comments Duson weird. Rivaroxaban Other: See Comments, GI Upset [...] bulge, or effusion. Tender right TMJ palpation reproducesright ear pain. Sinuses: non-tender frontal sinus, non-tender [...] and NSAID contraindication from bypass surgery. Continue gsgt-bhf-dqnmdnq acetaminophen. Discussed options for further treatment to include consult to specialist focusing on TMJ pain: dentist, oral maxillofacial surgeon, physical therapy. Fito Tate MD documented in this encounterLuther[facility]09-24-2024 Telephone encounter Note * Telephone Encounter - Mer Everett LPN - 12/04/2023 12:47 PM EDT Prescription Refill Information The patient has been [...] Everett LPN December 04, 2023 12:48 PM [facility]-24-[facility] Miscellaneous Notes* Telephone Encounter - Mer Everett LPN - 12/04/2023 12:47 PM EDT Prescription Refill Information The patient has been [...] 04, 2023 12:48 PM documented in this encounterLutheran Hospital09-03-2024 Telephone encounter Note * Telephone Encounter - Alesha Madrigal LPN - 11/13/2023 12:51 PM EDT Patient has been identified by name and [...] Please advise. Thank you. Alesha Madrigal LPN. [facility]09-03-2024 Miscellaneous Notes* Telephone Encounter - Alesha Riley LPN - 11/13/2023 12:51 PM EDT Patient has been identified by name and [...] you. Alesha Madrigal LPN. documented in this encounterLutheran Hospital08-13-2024 Telephone encounter Note * Telephone Encounter - Alicia Castle MA - 10/23/2023 9:43 AM EDT Sent pt mychart message Alicia Castle MA [facility]08-13-2024 Miscellaneous Notes* Telephone Encounter - Alicia Castle MA - 10/23/2023 9:43 AM EDT Sent pt mychart message Alicia Castle MA * Telephone Encounter - Tang Olguin DO - 10/23/2023 7:11 AM EDT Please let her know that options would include Metformin or Adipex or Wellbutrin (or a combination of 2 of these medications). What is she interested in starting? Tang Olguin DO * Telephone Encounter - Karen Middleton MA - 10/09/2023 2:43 PM EDT Pt sends [employer] message asking about weight loss meds. See pt message below. Eddy, we talked about putting me on something to help with my weight loss, is it possible that I can get something now since my labs were okay? Thank you documented in this encounterLutheran Hospital08-13-2024 Telephone encounter Note * Telephone Encounter - Tang Olguin DO - 10/23/2023 7:11 AM EDT Please let her know that options would include Metformin or Adipex or Wellbutrin (or a combination of 2 of these medications). What is she interested in starting? Tang Olguin DO [facility]07-30-2024 Telephone encounter Note* Telephone Encounter - Karen Middleton MA - 10/09/2023 2:43 PM EDT Pt sends [employer] message asking about weight loss meds. See pt message below. Eddy, we talked about putting me on something to help with my weight loss, is it possible that I can get something now since my labs were okay? 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 He [...] obstruction or gangrene DVT (deep venous thrombosis) ([facility]) post foot surgery, x 2 interval Endometriosis [...] syndrome 06/30/2013 Right hand paresthesia 04/28/2013 Seizures ([facility]) Snoring Temporomandibular joint disorders, unspecified Toenail deformity [...] Test blood sugar(s) 2 times daily. Dx: OtherDM Code fluctuating blood glucose, hypoglycemia Insulin: No [...] every 8 hours as needed for nausea/vomiting. zgmxfy-nupkfgad-xhffjmn (CREON) 36,000-114,000- 180,000 unit delayed release capsule Take 3 capsules by mouth three times daily with meals. Miscellaneous Medical Supply (BLOOD PRESSURE CUFF) 1 Each once daily. ipratropium-albuterol (DUONEB) 0.5 mg-3 mg(2.5 mg base)/3 mL nebu Inhale 3 mL as instructed every 4hours as needed for wheezing/shortness of breath. Nebulizers 1 Each as directed. Dx: wheezing, recurrent acute bronchitis, Nebulizer Accessories misc 1 Each as directed. Dx: wheezing, recurrent acute bronchitis, Tubing andmask for nebulizer No current facility-administered medications for this visit. ALLERGIES Allergen Reactions Miconazole Itching Milnacipran Mental Status Change, Other: See Comments Duson weird. Rivaroxaban Other: See Comments, GI Upset [...] nares without drainage, pharynx without erythema, exudate, lesions,or drainage. Uvula midline. Neck: No LAD, no [...] DIAGNOSTIC STRIPS - LANCETS 5. History of Mitchel-en-Y gastric bypass - ICD9: V45.86, ICD10: Z98.84 [...] plan. See patient instructions. Tang Olguin DO [address] [place] [address] documented in this encounterLutheran Hospital04-02-2024 Miscellaneous Notes* Telephone Encounter - Neva Shields APRN.CNP - 06/12/2023 3:54 PM EDT The following approved medication requests have been transmitted electronically. Requested Prescriptions Signed Prescriptions Disp Refills escitalopram oxalate (LEXAPRO) 5 mg tablet 30 tablet 5 Sig: Take 1 tablet by mouth daily at bedtime. For mood Neva Shields APRN.SERA * Telephone Encounter - Radha Modi MA - 06/12/2023 3:07 PM EDT Patient last visit with PCP 06/06/23 Follow up appointment scheduled 08/21/23 Radha Modi MA documented in this [facility]03-26-2024 Miscellaneous Notes* Telephone Encounter - Alesha Madrigal LPN - 06/05/2023 2:54 PM EDT Patient has been identified by name and [...] you. Alesha Madrigal LPN. documented in this encounterLutheran Hospital03-19-2024 Miscellaneous Notes* Telephone Encounter - Yuli Pike RN - 05/29/2023 10:18 AM EDT Spoke to patient and triage completed. See triage. Closing [facility] encounter. Yuli Pike RN documented in this [facility]03-19-2024 Miscellaneous Notes* Telephone Encounter - Yuli Pike RN - 05/29/2023 10:17 AM EDT Patient calls to report right foot and leg swelling. She reports the leg aches. The right foot is numb feeling and cool to touch. The numbness/tingling extends up the leg into the calf. Nurse triage completed. Protocol recommends go to ED now. Patient agreeable and aware that she should have someone take her. Patient reports that she will have someone take her to [facility] ER. Care advice reviewed. Patient verbalizes understanding. [...] history of cancer, heart failure, kidney disease, orliver failure. 9. RECURRENT SYMPTOM: Yes, previously had to be treated for blood clots. 10. OTHER SYMPTOMS: Patient reports that foot is numb feeling and cool to touch. Numbness extends up leg into calf. No chest pain or difficulty breathing. Protocols used: Leg Swelling and Maxub-NOWIX-SN documented in this encounterLutheran Hospital03-12-2024 History of Present illness Narrative* Nanci Villagran PA-C - 2023 11:02 AM EDT This note was created using [employer]. Subjective Clarisa Ann is a 53 year old female. HPI Patient presents with a chief complaint of left ear pain. She states she had COVID at the beginningof May. She still has sinus pressure and congestion and her ear has been popping and bothering her. No drainage out of her ear. Denies chest pain. She states she is still coughing and felt a littlewheezy this morning. No vomiting or diarrhea. She has been using saline spray neip-phn-bxgilsn. Review of Systems Constitutional: Negative. HENT: Positive [...] obstruction or gangrene DVT (deep venous thrombosis) ([facility]) post foot surgery, x 2 interval Endometriosis [...] syndrome 06/30/2013 Right hand paresthesia 04/28/2013 Seizures ([facility]) Snoring Temporomandibular joint disorders, unspecified Toenail deformity [...] nebu Inhale 3 mL as instructed every 4hours as needed for wheezing/shortness of breath. 3 mL 3 Nebulizers 1 Each as directed. Dx: wheezing, recurrent acute bronchitis, 1 Each 0 Nebulizer Accessories misc 1 Each as directed. Dx: wheezing, recurrent acute bronchitis, Tubing andmask for nebulizer 1 Each 0 amoxicillin-clavulanate potassium [...] taking: Reported on 04/05/2023) 8 tablet 0 ubclda-tqymsuzo-vdufxhm (CREON) 36,000-114,000- 180,000 unit delayed release capsule [...] Take 1 tablet by mouth once daily. (Patientnot taking: Reported on 2023) 90 tablet 3 cyanocobalamin (VITAMIN B-12) 1,000 mcg tab Take 1 tablet by mouth once daily. (Patient not taking:Reported on 2023) 30 tablet 2 No current [...] rx, continue zyrtec, maybe try sudafed otc. Nanci Villagran PA-C documented in this encounterLutheran Hospital02-15-2024 Procedure [facility]02[facility] Procedure [facility]02-02-2024 Instructions* Patient Instructions* Steffi Alanis PA - 04/13/2023 10:19 AM EST [...] thin washcloth between the bag and your skin.Apply the ice bag to the area for [...] pillows when lying down. documented in this encounterLutheran Hospital02-02-2024 History of Present illness Narrative* Brenda Howard RT(R) - 04/13/2023 10:00 AM EST Radiology Service Progress Note PATIENT NAME: Clarisa Ann DATE OF SERVICE: April 13, 2023 TIME: 9:51 AM PATIENT IDENTITY VERIFICATION COMPLETED USING TWO (2) IDENTIFIERS: Name and Date of confirmedby patient verbally. FALL SCREENING: Has the patient had 2 falls in the last year or 1 fall with injury or currently using an Ambulatory Assistive Device (Walker, Cane, Wheelchair, Crutches, etc.)? No PATIENT GENDER DATA: Female. status: : No status: NO. PATIENT RELEVANT IMPLANT DATA REVIEWED: Not Applicable PATIENT PRESENTS WITH AN IMPLANTABLE OR ATTACHED IT INTEGRATION ARCHITECT: No RADIOLOGY DEPARTMENT: General X-ray: Exam(s) Completed: Lower Extremity X- Ray(s): Foot, Right PERIPHERAL IV DATA: Not applicable SIGNED BY: RT Will(R) April 13, 2023 9:51 AM documented in this encounterLutheran Hospital02-02-2024 History of Present illness Narrative* Steffi Alanis PA - 04/13/2023 9:52 AM EST This note was created using [employer]. Subjective Clarisa Ann is a 52 year old female. HPI 52-year-old female presents for foot pain. Patient has been having right foot pain for the past2 days. She stepped wrong on her foot and has been having pain over the right lateral foot since then. She states that when she stepped down she kind of twisted her foot and felt a sharp pain in it. She reports pain is worse with ambulation. No numbness, occasionally has a little bit of tingling inher toes. She denies any fevers. No other [...] Miconazole, Milnacipran, Rivaroxaban, Morphine, Atorvastatin, Coumadin [Warfarin Sodium],Dilaudid [Hydromorphone (Bulk)], Lyrica [Pregabalin], and Prednisone MEDICATIONS [...] pain. (Patient not taking: Reported on 04/05/2023) twokrk-lepvykjz-annsgiu (CREON) 36,000-114,000- 180,000 unit delayed release capsule [...] nebu Inhale 3 mL as instructed every 4hours as needed for wheezing/shortness of breath. Nebulizers 1 Each as directed. Dx: wheezing, recurrent acute bronchitis, Nebulizer Accessories misc 1 Each as directed. Dx: wheezing, recurrent acute bronchitis, Tubing andmask for nebulizer FAMILY HISTORY Problem Relation Age [...] ER evaluation. PRINCESS Ferrera documented in this encounterLutheran Hospital10-09-2023 Miscellaneous Notes* Telephone Encounter - Lian Smith MA - 12/18/2022 10:58 AM EDT Patient has been identified by name and [...] 03/30/23 Lian Smith MA documented in this encounterLutheran Hospital10-09-2023 Miscellaneous Notes* Telephone Encounter - Nelly Myrick LPN - 12/18/2022 8:54 AM EDT [facility]--10/10/22 Nov--03/30/23 Last refill--06/23/22 30 with 5 refills Last labs--10/10/22 documented in this [facility]10-05-2023 Miscellaneous Notes* Telephone Encounter - Milagros Cruz LPN - 12/14/2022 8:35 AM EDT Patient given results and verbalized understanding of instructions given. Milagros Cruz LPN * Telephone Encounter - Raymond Sen APRN.CNP - 12/14/2022 7:21 AM EDT Please notify that covid/flu testing negative. Continue with plan of care as discussed during visit. documented in this encounterLutheran Hospital08-31-2023 NotePatient Name: Clarisa Ann Procedure Date: 11/09/2022 12:35 PM Date of : 1970 Admit Type: Outpatient Site: [facility] Ethnicity: Not or Race: White Attending MD: Kristal Recinos MD, [id number] Procedure: Upper EUS Indications: Common bile duct dilation (acquired) seen on MRI, Upper abdominal pain, Generalized abdominal pain, Assessment following Mitchel-en-Y gastric bypass Patient Profile: This is a 52 year old female. Refer to note in patient chart for documentation of history and physical. Providers: Kristal Recinos MD (Doctor), Amanda Muñoz RN (Nurse), Clive Boyer, Shake Packer Referring: Medicines: Monitored Anesthesia Care Complications: No [...] healthy appearing mucosa. This was traversed. The aodvx-yn-hwoexqd limb was characterized by healthy appearing mucosa. [...] present medications. Procedure Code(s): --- Professional --- 37158, Esophagogastroduodenoscopy, flexible, transoral; with endoscopic ultrasound examination limited to the esophagus, stomach or duodenum, and adjacent structures Diagnosis Code(s): --- Professional --- Z98.84, Bariatric surgery status (more content not included)...PROVATION - [id number] Miscellaneous Notes* Telephone Encounter - Brenda Ng RN - 10/19/2022 8:30 AM EDT Pt called and is notified of providers results. Brenda Ng RN * Telephone Encounter - Tang Olguin DO - 10/18/2022 10:40 PM EDT Please let patient know that overall her lab results are stable, no concerns Tang Olguin DO documented in this encounterLutheran Hospital08-01-2023 History of Present illness Narrative* Tang Olguin DO - 10/10/2022 12:19 PM EDT CC: Clarisa Ann is a 52 year old female who presents to the office for follow up HPI: Surgery was on May 26 for Mitchel n Y bypass surgery. She feesl that [...] supposed to be scheduled by specialist at [facility] for this due to her recent surgery of Mitchel n Y bypass. Was told needs to have an MRCP procedure but hasn't had this scheduled- waiting on [facility] to schedule this testing. Had CT abd/pelvis which also showed this commonbile duct dilation Struggling with some LH feeling [...] every 6 hours as needed for pain. gmnhmm-lfprugdu-zsbtlol (CREON) 36,000-114,000- 180,000 unit delayed release capsule [...] nebu Inhale 3 mL as instructed every 4hours as needed for wheezing/shortness of breath. Nebulizers 1 Each as directed. Dx: wheezing, recurrent acute bronchitis, Nebulizer Accessories misc 1 Each as directed. Dx: wheezing, recurrent acute bronchitis, Tubing andmask for nebulizer sucralfate (CARAFATE) 100 mg/mL suspension [...] Milnacipran Mental Status Change, Other: See Comments Duson weird. Rivaroxaban Other: See Comments, GI Upset [...] nares without drainage, pharynx without erythema, exudate, lesions,or drainage. Uvula midline. Neck: No LAD, no [...] or concerning any deficiencies due to recent Mitchel en Y bypass procedure. She is taking Bariatric vitamins. - TSH BLD - HEPATIC FUNCTION PNL - T4 FREE/FREE THYROX - T3 FREE BLD - COMP METABOLIC PANEL - VITAMIN B12 BLOOD - VITAMIN D 25 HYDROXY - MAGNESIUM BLD 2. Nausea - ICD9: 787.02, ICD10: R11.0 Needs follow up with Dr. Cortez/Valet Parking Attendant for further testing, recently found to have dilated CBD concerns and need for further determination of cause - TSH BLD - T4 FREE/FREE THYROX - T3 FREE BLD - COMP METABOLIC PANEL - MAGNESIUM BLD 3. RUQ abdominal pain - ICD9: 789.01, ICD10: R10.11 Needs follow up with Dr. Cortez/Valet Parking Attendant for further testing, recently found to have dilated CBD concerns and need for further determination of cause - TSH BLD - T4 FREE/FREE THYROX - T3 FREE BLD - COMP METABOLIC PANEL 4. Common bile duct dilation - ICD9: 576.8, ICD10: K83.8 Needs follow up with Dr. Cortez/Valet Parking Attendant for further testing, recently found to have dilated CBD concerns and need for further determination of cause - HEPATIC FUNCTION PNL - COMP METABOLIC PANEL 5. History of Mitchel-en-Y gastric bypass - ICD9: V45.86, ICD10: Z98.84 Needs follow up with Dr. Cortez/Valet Parking Attendant for further testing, recently found to have dilated CBD concerns and need for further determination of cause Tang Olguin DO Return if no improvement. Follow up with Tang Olguin DO. To ER if develops chest pain, shortness of breath Discussed risks, benefits, alternatives, and potential side effects of medications. Patient/Guardian expressed understanding and agreed with the plan. See patient instructions. Tang Olguin DO [address] [place] [address] documented in this encounterLutheran Hospital07-24-2023 Miscellaneous Notes* Telephone Encounter - Barbara Rojas Ma - 10/02/2022 10:29 AM EDT Call to pt and notified her of response below from Provider. 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 Barbara Rojas Ma * Telephone Encounter - Domi Jay APRN.CNP - 10/02/2022 10:16 AM EDT Patient needs to go to ER immediately. * Telephone Encounter - Yuli Pike RN - 10/02/2022 9:57 AM EDT Patient calls to report upper abdominal pain. [...] to eat or drink. Previously recommended patient seekED treatment. 2. RADIATION: to the back. 3. [...] or vomiting. Protocols used: Abdominal Pain - Wcnsz-QQESY-NN documented in this encounterLutheran Hospital07-17-2023 Miscellaneous Notes* Telephone Encounter - Celina Mendoza RN - 09/25/2022 4:58 PM EDT BMI SPECIALTY CARE COORDINATION TELEPHONE ENCOUNTER Phoned patient upon learning of her call to office. She reported feeling bloated; passing gas but unable to have BM for several days. Says she has not been hydrating well because feeling bloated makes her uncomfortable. Tried taking colace with no relief. Recommended Miralax and increasing fluids; e ncouraged exercise. Patient stated she walked on treadmill [...] will continue to keep this office updated. * Telephone Encounter - Elaine Lynch HUC - 09/25/2022 4:23 PM EDT BMI Incoming Patient Nursing Line Call Summary: Situation/Concerns:Constipation and back pain. Has taken laxatives, nothing working. Background/Duration of event: Pass 3 weeks Assessment/Subjective symptoms: as noted above. Recommendation/How message sent to provider/nurse:Celina via Telephone Encounter. NATHAN Kent documented in this encounterLutheran Hospital06-30-2023 Miscellaneous Notes* Telephone Encounter - Froylan House MD - 09/08/2022 10:25 AM EDT OK to refill as ordered Froylan House MD * Telephone Encounter - Karen Middleton Ma - 09/08/2022 10:15 AM EDT Last office visit: 06/23/22 F/u scheduled: 11/01/22 Karen Middleton Ma documented in this encounterLutheran Hospital06-30-2023 History of Present illness Narrative* Edin Powers RD - 09/08/2022 9:17 AM EDT Patient was scheduled for a nutrition appointment today. The patient did not check into their scheduled appointment. I sent the patient a Say-Hey message encouraging them to reschedule their appointment by calling [phone]. documented in this encounterLutheran Hospital06-28-2023 Miscellaneous Notes* Telephone Encounter - Alesha Madrigal LPN - 09/06/2022 12:58 PM EDT Patient has been identified by name and [...] you. Alesha Madrigal LPN documented in this encounterLutheran Hospital05-11-2023 Miscellaneous Notes* Telephone Encounter - Nelly Myrick LPN - 07/20/2022 3:49 PM EDT Robinson--06/23/22 Nov--nothing schedule Last refill-- Last labs-- documented in this encounterLutheran Hospital05-11-2023 Miscellaneous Notes* Telephone Encounter - Izabel Mcfarland MA - 07/20/2022 1:44 PM EDT Patient has been identified by name and date of : Yes Requested Prescriptions Pending Prescriptions Disp Refills cetirizine (ZYRTEC) 10 mg tablet [Pharmacy Med Name: Cetirizine HCl 10 MG Oral Tablet] 30 tablet 0 Sig: Take 1 tablet by mouth once daily RX INSTRUCTIONS: Patient aware RX will be sent to pharmacy. No need to notify patient. Izabel Mcfarland MA [facility] 06/2022 Nov 08/2022 Last refill: 05/2021 documented in this encounterLutheran Hospital04-24-2023 History of Present illness Narrative* Mayi Murillo MD - 07/03/2022 9:50 AM EDT Metabolic Surgery Postoperative Virtual Clinic Visit Name: Clarisa Ann This visit was performed virtually via Zoom technology due to the COVID-19 epidemic as an effort toprotect patients and minimize exposure.? Virtual Visit (Audio/Visual)I have discussed the nature of this visit with the patient which will occur via [facility] (Phone, Virtual Visit) and she agrees to proceed with this interaction. Index Surgery Date of Surgery: 05/26/2022 Surgeon: Mayi Murillo MD Surgical Procedure: LAPAROSCOPIC GASTRIC RESTRICTIVE SURG W/ BYPASS & MITCHEL-EN-Y 150CM OR LESS Pre-surgical weight: 112.5 kg [...] stress female DVT (deep venous thrombosis) (HCC) Kirsten's deformity, right RLS (restless legs syndrome) Vertigo Suicidal attempted Acute bronchitis Obesity Resolved Hospital Problems No resolved problems to display. DISPOSITION: Return 1 year to Post-op follow up/ individual office visit EDUCATION: Encouraged to continue with healthy lifestyle changes and incorporate cardiovascular andresistance training, Discussed weight loss expectations after bariatric and metabolic surgery, Advised PT to avoid NSAIDs, smoking tobacco given increased risk of marginal ulcers, or Discussed importance of protein intake as per the RDN note REFERRALS: N/A LABS: Mayi Powell MD [facility] Laparoscopic & Bariatric Surgery [facility] documented in this encounterLutheran Hospital04-21-2023 Instructions* Patient Instructions* Edin Powers RD - 06/30/2022 9:30 AM EDT Nutrition Action Plan 1. Continue to take all recommended vitamin/minerals: Bariatric Pal Once Daily MVI + 4106-5645 mg calcium citrate (3 soft chews) 2. Protein goal: 74 grams protein/day 3. Fluid goal: 64 ounces per day (no carbonation, caffeine, calories, alcohol) 4. Exercise goal: Continue walking; add in strength training when cleared by surgery with a goal of150+ minutes per week 5. Practice mindful eating habits-take small portions, eat slowly, chew thoroughly Follow Up on 09/08 at 8 AM documented in this encounterLutheran Hospital04-21-2023 History of Present illness Narrative* Edin Powers RD - 06/30/2022 9:11 AM EDT AMBULATORY PATIENT EDUCATION NOTE- Shared Virtual Nutrition Group I have communicated my name and active licensure. The patient s identity and physical location wereverified at the time of this visit. Either the patient or their legal quality assurance representative has been informed of the risks and benefits of -- and alternatives to -- treatment through a remote evaluation andconsents to proceed with the evaluation remotely. Patient [...] Rate: 1601 Energy needs for weight loss: 9055-3680 calories per day (10-15 kcal/kg CBW) Protein needs: 74 grams protein per day (1.2 g/kg IBW kg) Reviewed nutrition principles of: 1. Continue to take all recommended vitamin/minerals: Bariatric Pal Once Daily MVI + 1124-5316 mg calcium citrate (3 soft chews) 2. Protein goal: 74 grams protein/day 3. Fluid goal: 64 ounces per day (no carbonation, caffeine, calories, alcohol) 4. Exercise goal: Continue walking; add in strength training when cleared by surgery with a goal of150+ minutes per week 5. Practice mindful eating habits-take small portions, eat slowly, chew thoroughly Nutrition Monitoring & Evaluation:BMI <40 Criteria: weight check Need for Follow up: 3 months post op Appointment Start Time: 7:54 AM Appointment End Time: 8:47 AM Time Spent on Consult: 53 minutes - Group Edin Powers RD documented in this encounterLutheran Hospital04-20-2023 Miscellaneous Notes* Telephone Encounter - Alicia Castle - 06/29/2022 8:45 AM EDT Pt informed, verbalized understanding. Alicia Castle * Telephone Encounter - Tang Olguin DO - 06/28/2022 9:07 PM EDT Please inform patient that her iron levels are low, other labs are stable. Needs to be taking her bariatric vitamins /Tang Olguin DO documented in this encounterLutheran Hospital04-03-2023 Miscellaneous Notes* Telephone Encounter - Celina Mendoza RN - 06/12/2022 11:10 AM EDT BMI SPECIALTY CARE COORDINATION TELEPHONE ENCOUNTER Patient phoned this morning to update team on R incision. She reports same serosanguinous drainage,scant to small amounts on gauze dressing that [...] is appropriate and no immediate concerns. Instructed patientto continue keeping area clean and dry; may keep DAY or loosely covered with gauze. Will add patient to surgical fellow's schedule on 06/14 for continued close monitoring and support. This RN will alsofollow. Patient stated good understanding and agreed with plan. documented in this encounterLutheran Hospital03-31-2023 Miscellaneous Notes* Telephone Encounter - Celina Mendoza RN - 06/09/2022 4:00 PM EDT BMI SPECIALTY CARE COORDINATION TELEPHONE ENCOUNTER Sharp pain at L side near her incision that shoots up her side to her shoulder. Happening for abouta week, has become more frequent (2-3 times daily) and It takes my breath away. More intense lastnight and associated with movement. Denies pain w breathing, SOB at rest or any other trouble breathing; denies palpitations. No nausea, vomiting, constipation or diarrhea. Passing lots of gas; bloated. Has not taken any Gas X or other pain med. BM 2 days ago; has been soft and about every 2-3 dayssince surgery. Reports drainage this afternoon at L [...] Patient seemingly close to tears. I'm so scared. Asking, do you think it's infected?, and why am I having this pain? Provided emotional support and reassurance. Reviewed incision [...] and agreed with plan documented in this encounterLutheran Hospital03-31-2023 Miscellaneous Notes* Telephone Encounter - NATHAN Kent - 06/09/2022 1:[address] [facility] Incoming Patient Nursing Line Call Summary: Situation/Concerns:Today Pus is coming out of one incision. Also for the past 4 days she has had under the left breast. The pain takes her breath away Background/Duration of event: N/A Assessment/Subjective symptoms: as noted above. Recommendation/How message sent to provider/nurse:Celina via Telephone Encounter. NATHAN Kent [facility] SPECIALTY CARE COORDINATION TELEPHONE ENCOUNTER Sharp pain at L side near her incision that shoots up her side to her shoulder. Happening for abouta week, has become more frequent (2-3 times daily) and It takes my breath away. More intense lastnight and associated with movement. Denies pain w breathing, SOB at rest or any other trouble breathing; denies palpitations. No nausea, vomiting, constipation or diarrhea. Passing lots of gas; bloated. Has not taken any Gas X or other pain med. BM 2 days ago; has been soft and about every 2-3 dayssince surgery. Reports dainage this afternoon at L incision; serosanguinous white with blood - noticed her shirtwas wet this afternoon about a half-dollar sized amount on her clothing. Patient sent photo - will forward to surgical team. No odor noted. Greenish bruise above incision, small scab. She reports improved fluid intake; including decaf tea; gatorade 0; water. Today had soft boiled egg and tolerated. Met with Nutrition today. Patient seemingly close to tears. I'm so scared. Asking, do you think it's infected?, and why am I having this pain? Provided emotional support and reassurance. Reviewed incision care and encouraged patient to take Gas X, do gentle stretches, continue with oral intake and ambulating. Will notify MD and update patient of any additional recommendations or orders. Patient stated understanding and agreed with plan S/p LRYGB on 05/[address] Powell. documented in this encounterLutheran Hospital03-31-2023 History of Present illness Narrative* Dottie Ray, RD - 06/09/2022 9:30 AM EDT This visit was performed virtually due to [...] The patient s identity and physical location wereverified at the time of this visit. Either the patient or their legal quality assurance representative has been informed of the risks and benefits of -- and alternatives to -- treatment through a remote evaluation andconsents to proceed with the evaluation remotely. Patient [...] shared nutrition group. Post-op weight loss surgery (RYGB)(Dr. Powell) . Weight loss: 20 lbs since [...] carbonation, caffeine, calories, alcohol) - separate foods andfluids by 20 minutes, small sips, no straw 4. Exercise goal: begin low intensity exercise until cleared by surgeon. 5. Practice mindful eating habits-take small portions, eat slowly, and chew thoroughly You have lost 8% total weight loss (average 6-9% at 1 month) Blog: [employer] The [facility] has 2 virtual support group meetings: This is the ASSIA link with meeting number that will be used for all of the SUNDAY virtual support groups this year, on the Sunday of each month 5:30-6:30PM Join from the meeting link [email or web address] Join by meeting number Meeting number (access code): [phone] Meeting password: [email or web address] The schedule with dates, times, topics, and facilitators can be found here: [email or web address] This is the ASSIA link with meeting number that will be used for the Open Discussion (Food for Thought) support group on the Sunday of each month 5:30-6:30PM Join from the meeting link [email or web address] Join by meeting number Meeting number (access code): [phone] Meeting password: [email or web address] Hope to see you there! Nutrition Monitoring & Evaluation: Advance diet to phase 3 by next visit Criteria: patient recall Need for Follow up: 1 month post op Appointment Start Time: 9:30 AM Appointment End Time: 10:02 AM Time Spent on Consult: 32 minutes - Group Dottie Ray MS,RD,CSOWM,LD documented in this encounterLutheran Hospital03-29-2023 History of Present illness Narrative* Leonel Fisher MD - 06/07/2022 11:33 AM EDT Metabolic Surgery Postoperative Virtual Clinic Visit Name: Clarisa Ann This visit was performed virtually via Zoom technology due to the COVID-19 epidemic as an effort toprotect patients and minimize exposure.? Virtual Visit (Audio/Visual)I have discussed the nature of this visit with the patient which will occur via Distance Health (Phone, Virtual Visit) and she agrees to proceed with this interaction. Index Surgery Date of Surgery: 05/26/2022 Surgeon: Mayi Murillo MD Surgical Procedure: LAPAROSCOPIC GASTRIC RESTRICTIVE SURG W/ BYPASS & MITCHEL-EN-Y 150CM OR LESS Pre-surgical weight: 112.5 kg (248 lb) HPI: Clarisa Ann is a 52 year old female with history of NNEKA, high BMI 45.18 now s/p lap RYGB withDr. Powell on 05/26 Doing well, pain is controlled. She had dehydration few days , requiring IV hydration. She is feeling better. Tolerating PO intake. Takes around 50 oz of liquids and 1 bottles of proteins. Feels fullwhen she drinks. She also do some scrambled [...] Perimenopausal disorder Major depressive disorder, recurrent, moderate ([facility]) Post-operative state Obesity, Class III, BMI >= 40 Mild intermittent asthma without complication Seizures ([facility]) NNEKA (obstructive sleep apnea) Left cervical radiculopathy Dyspepsia Plantar fasciitis of right foot GERD with esophagitis Hypertension, essential Heel spur, right Intractable right heel pain Chronic pain syndrome Depressive disorder PTSD (post-traumatic stress disorder) Trigeminal neuralgia of right side of face Restless legs Mood swings Urinary, incontinence, stress female DVT (deep venous thrombosis) ([facility]) Kirsten's deformity, right RLS (restless legs syndrome) Vertigo Suicidal attempted Acute bronchitis Obesity Resolved Hospital Problems No resolved problems to display. DISPOSITION: Return 1 month to Post-op follow up/ individual office visit EDUCATION: Encouraged to continue with healthy lifestyle changes and incorporate cardiovascular andresistance training, Discussed weight loss expectations after bariatric [...] & Bariatric Surgery Fellow B[facility] documented in this encounterLutheran Hospital03-27-2023 Miscellaneous Notes* Addendum Note - Tulio Knight MD - 06/05/2022 7:24 PM EDTAddended by: TULIO KNIGHT on: 06/05/2022 07:24 PM Modules accepted: Orders * Telephone Encounter - Celina Mendoza RN - 06/05/2022 3:[address] [facility] SPECIALTY CARE COORDINATION TELEPHONE ENCOUNTER Phoned patient [...] and has contact info documented in this encounterLutheran Hospital03-27-2023 Miscellaneous Notes* Telephone Encounter - NATHAN Kent - 06/05/2022 10:[address] [facility] Incoming Patient Nursing Line Call Summary: Situation/Concerns:Nutrition Questions and Clarisa feels she is dehydrated. Please call her at [phone] Background/Duration of event: all the time Assessment/Subjective symptoms: as noted above. Recommendation/How message sent to provider/nurse:Celina via Telephone Encounter. NATHAN Kent [facility] SPECIALTY CARE COORDINATION TELEPHONE ENCOUNTER Phoned patient. She reported feeling well over the weekend, but noticed she is no urinating as usual, small amounts and dark in color. Patient says she knows she is dehydrated, I'm afraid to drink so much because it hurts. Says she is nauseated this morning also; has not vomiting. Patient tearful. Provided emotional support. Patient will have lottie's mom take her this morning [facility]. This RN to follow. Post-op w Surgical Fellow this Sunday, 06/07. Patient aware. documented in this encounterLutheran Hospital03-21-2023 Miscellaneous Notes* Telephone Encounter - Celina Mendoza RN - 05/30/2022 11:25 AM EDT BMI SPECIALTY CARE COORDINATION TELEPHONE ENCOUNTER Phoned patient for additional follow and and to provide support. She reported taking about 15 oz sofar today, having been awake about 4 hours this morning. Intake includes popsicles, water and 5 oz (15 g) protein shake. Denies nausea/vomiting, headache or lightheadedness. States pain is improved. States reason for nothydrating more, I'm afraid I'll hurt myself and I'm tired. Was able to take 32 oz by end of day yesterday. Has urinated twice this morning, but notes color darker yellow. RN phoned [facility] yesterday and was told no slots available this week. Will call [facility] today for possible slot tomorrow. Discussed with patient. 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 Reinforced prior instruction regarding importance of hydration [...] hours) directed by Dr. Powell. Slot available [facility] for tomorrow. Patient notified. documented in this encounterLutheran Hospital03-20-2023 Miscellaneous Notes* Telephone Encounter - Celina Mendoza RN - 05/29/2022 11:23 AM EDT BMI SPECIALTY CARE COORDINATION POST-OP TELEPHONE CALL [...] appt. Reminded patient of how to reach [facility] or their surgeons office. Patient reminded to seek medical attention if they develop chest pain, a sudden onset of shortness of breath or persistent pain in the calf of their legs - BEST TO ALWAYS present to [facility] hospital where you had your surgery [...] for the rest of the day, to stayawake and hydrate. Patient stated good understanding and agreed. She denied any pain or nausea at this time. Will call again tomorrow morning to follow. documented in this encounterLutheran Hospital03-16-2023 Miscellaneous Notes* Telephone Encounter - Celina Mendoza RN - 05/25/2022 3:45 PM EDT BMI SPECIALTY CARE COORDINATION SURGERY PRE-OP EDUCATION NOTE [...] discharge instructions & surgical guide, incentive spirometry;diet progression-mira phase I & II & 2wk liquid diet prior to surgery, activity level & pt responsibility during hospitalization. Sleep Apnea: Patient has sleep apnea? No. Do not take pain medication three hours before bedtime as it may cause breathing difficulty. If you are having pain at bedtime you may take two Extra Strength Tylenol. Celina Mendoza RN documented in this encounterLutheran Hospital03-13-2023 History of Present illness Narrative* Mayi Murillo MD - 2022 3:39 PM EDT BARIATRIC SURGERY PREOPERATIVE VISIT NOTE SERVICE DATE: 2022 SERVICE TIME: 3:25 pm This visit was performed virtually using Zoom technology due to the COVID-19 epidemic as an effort to protect patients and minimize exposure.? Patient gave me the verbal consent for the telehealth visit. Ms. Ann is a 52 year old female referred to me for preoperative evaluation. Name: Clarisa Ann Medical Record: [id number] Encounter No.: [id number] Clarisa Ann is a 52 year old female seen in Bariatric Surgery clinic today for their final preoperative assessment. WEIGHT Current Wt/BMI: 248 Ib, 45 kg/m2 Planned Procedure: Laparoscopic Mitchel en-Y Gastric Bypass PAST MEDICAL HISTORY: PAST [...] Milnacipran Mental Status Change, Other: See Comments Duson weird. Rivaroxaban Other: See Comments, GI Upset [...] Take 50 mg by mouth once daily. xmmucf-tigtoacx-tuqcnki (CREON) 36,000-114,000- 180,000 unit delayed release capsule [...] nebu Inhale 3 mL as instructed every 4hours as needed for wheezing/shortness of breath. diclofenac (VOLTAREN) 1 % topical gel Apply 2 g to affected area four times daily. uses on foot andleft arm Nebulizers 1 Each as directed. Dx: wheezing, recurrent acute bronchitis, Nebulizer Accessories misc 1 Each as directed. Dx: wheezing, recurrent acute bronchitis, Tubing andmask for nebulizer VISIT NOTE This patient was [...] will need to extend DVT chemoprophylaxis at [facility] For surgery this Sunday. SIGNATURE: Mayi Murillo MD PATIENT NAME: Clarisa Ann DATE: 2022 TIME: 3:41 PM PAGER/CONTACT #: documented in this encounterLutheran Hospital03-13-2023 Instructions* Patient Instructions* Elis Andres APRN.RESIDENCE LIFE DIRECTOR - 2022 10:57 AM EDT PATIENT PREOPERATIVE INSTRUCTIONS No ref. provider found has scheduled you for your procedure at this surgery center: [facility] [place] Scheduling Office: [phone] --[address] [place] [address]. Please read below carefully for your personalized [...] Procedures: - YOU MUST HAVE A RESPONSIBLE QUALITY PROJECT MANAGER TAKE YOU HOME. A MIXED LIVESTOCK FARM WORKER OR PRECISION ASSEMBLY INSPECTOR CANNOT BE MADE A RESPONSIBLE QUALITY PROJECT MANAGER. - We recommend that a responsible person stays with you overnight to take care of you. - You cannot stay in a hotel alone after outpatient surgery. You will not be permitted to have yoursurgery, if you do not have someone to take care of you. Arrival Time for Surgery: - To obtain your arrival time for surgery, call your physician's office the day before your surgery. - If your surgery is scheduled for Sunday, call the Sunday before. Your surgeon s blintze roller will tell you what time to call the office. - If you have not reached the departmental blintze roller by 5 P.M., call [phone] after 5 P.M. the day before your surgery. Please be aware that emergency situations arise, which may delay or change your surgical time. If this happens, we will notify you as soon as possible and regret any inconvenience. If you already have an Advance Directive, please fax a copy to [phone] or email to for it to be added to your chart. If you do not have an Advance Directive, you can find the appropriate form and more information at [email or web address]. We recommend that youcomplete the Advance Directive form found on the website and bring it with you the day of your surgery. It can be witnessed and scanned into your chart that day. Elis Andres APRN.CNP documented in this encounterLutheran Hospital03-13-2023 History and physical note * Elis Andres APRN.CNP - 2022 10:56 AM EDT Images from the original note were not included. HISTORY AND PHYSICAL EXAMINATION SERVICE DATE: 2022 SERVICE TIME: 12:15 PM PRIMARY CARE PHYSICIAN: Tang Olguin DO REASON FOR VISIT: Clarisa Ann is a 52 year old female who is scheduled for Procedure(s): LAPAROSCOPIC GASTRIC RESTRICTIVE SURG W/ BYPASS & MITCHEL-EN-Y 150CM OR LESS (N/A) at the request [...] Colon Polyps Vertigo Rls (Restless Legs Syndrome) Kirsten's Deformity, Right Dvt (Deep Venous Thrombosis) (H[facility]) [...] this time) CHIEF COMPLAINT: Pre-op exam HPI: Clarisa Ann is a 52 year old seen for PAC due to scheduled above surgery because of morbid obesity. 03/08/2022, Dr. Powell Clarisa Ann is a 51 year old female who presents on March 08, 2022 for surgical evaluationand treatment of obesity. The patient is interested in laparoscopic gastric bypass mitchel-en-y and has decided to have the procedure with Mayi Powell MD. Age at onset - adolescence. Rate of weight gain is described as gradual over years. Family history positive for obesity in the patient's sister. She considers ideal weight to be 140 lb. Maximum weight 240 lb. Previous treatments include self-directed dieting, mmd unit teacher consultation, supervised diet program, very low calorie [...] on rx. 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 [...] chest pain, CHF, congenital heart defect, recent NV, murmur/valvular heart disease, open heart surgery and [...] > 1 time per night or hematuria. 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 Yes ujftni-tjqzgwvm-sdxttme (CREON) 36,000-114,000- 180,000 unit delayed release capsule [...] 2 Sprays in the nose once daily. TakingYes fluticasone (FLOVENT HFA) 110 mcg/actuation inhaler Inhale [...] nebu Inhale 3 mL as instructed every 4hours as needed for wheezing/shortness of breath. Taking Yes diclofenac (VOLTAREN) 1 % topical gel Apply 2 g to affected area four times daily. uses on foot andleft arm Taking Yes Nebulizers 1 Each as directed. Dx: wheezing, recurrent acute bronchitis, Taking Yes Nebulizer Accessories misc 1 Each as directed. Dx: wheezing, recurrent acute bronchitis, Tubing andmask for nebulizer Taking Yes meloxicam (MOBIC) 15 mg tablet Take 1 tablet by mouth once daily. Take with food. Medication Comments documented by Trina Carr RN on 11/12/2019 at 1247. Pt reports not taking Lovenox or Keflex fatoumata longer ALLERGIES Allergen Reactions Miconazole Itching Milnacipran Mental Status Change, Other: See Comments Duson weird. Rivaroxaban Other: See Comments, GI Upset [...] 416 QTC Calculation (Bazett) 411 Calculated P [place] 58 Calculated R [place] 24 Calculated T [place] 27 Impression SINUS BRADYCARDIA LOW VOLTAGE QRS, CONSIDER PULMONARY DISEASE, PERICARDIAL EFFUSION, OR NORMAL VARIANT BORDERLINE ECG Confirmed by VERONIKA REID M.D. ([id number]) on 02/21/2022 4:09:56 PM No results found for this or any previous visit (from the past 52784 hour(s)). Assessment Patient has the following medical [...] during sleep Non-male patient STOP-Bang Score: 5 [id number] Score: Age: <65 Sex: female CHF history: No Hypertension history: Yes Stroke/TIA/thromboembolism history: No Vascular disease history: No Diabetes history: No [id number] Score: 2 ARISCAT Score: Age: 51-80 Preoperative [...] compliance. SIGNATURE: Elis Andres APRN.CNP PATIENT NAME: Clarisa Ann DATE: 2022 TIME: 10:56 AM PAGER/CONTACT #: documented in this encounterLutheran Hospital03-09-2023 Miscellaneous Notes* Telephone Encounter - Celina Mendoza RN - 05/18/2022 4:[address] [facility] SPECIALTY CARE COORDINATION SURGERY APPROVAL CALL Received e-mail confirmation of insurance approval for bariatric surgery.Pre- operative call placed to the patient, this RN spoke with patient and agreed upon a surgery date of May 26 2022. Surgicalepisode request sent to [facility] surgery scheduling. Patient understands that the surgery type is Gastric Bypass as approved by insurance. Creatinine level 0.76 Patient instructed to start pre-op 800 calorie total protein liquid diet Atkins (5) daily beginning2 weeks prior to surgery. - Stop all ASA and NSAID products, [place] 3 fish oil, herbal products such as ginko etc. Stop vitamins EXCEPT B COMPLEX- take this up to the day before surgery - Medication List reviewed. - Patient denies use of estrogen products. Sleep apnea requiring treatment? No. Patient will require FMLA forms to be completed? Yes, Pt instructed to fax FMLA forms to [phone] and allow 7-10 days for completion. - [...] ordered. Celina Mendoza RN documented in this encounterLutheran Hospital02-22-2023 Miscellaneous Notes* Telephone Encounter - Nelly Myrick LPN - 05/03/2022 6:22 PM EST Robinson--02/17/22 Nov--nothing scheduled Last refill--02/16/21 30 with 11 Last labs--01/04/22 documented in this encounterLutheran Hospital01-27-2023 Miscellaneous Notes* Telephone Encounter - Radha Modi Ma - 04/07/2022 1:57 PM EST Patient was left detailed message on confidential vm Radha Modi Ma * Telephone Encounter - Tang Olguin DO - 04/07/2022 1:41 PM EST Agree with EMERGENCY DEPARTMENT evaluation of her symptoms Tang Olguin DO * Telephone Encounter - Gisel Miles RN - 04/07/2022 9:19 AM EST Triage protocol advised: See provider within 4 hours today. Patient states she would not be able to be evaluated until after 4pm today. No appts available. Pt agreeable to possible Express Care this afternoon and ER for red flag sx's as discussed. Pt requests PCP to advise. Pt asking if this could be side effect of her Requip, which she has beentaking for awhile. Please call patient with advise. Thank you. Reason for Disposition [1] Chest pain lasts > 5 minutes AND [2] occurred > 3 days ago (72 hours) AND [3] NO chest pain or cardiac symptoms now Answer Assessment - Initial Assessment Questions Patient calling with complaints of multiple symptoms and asking for PCP advise. Patient states overthe last week she has noticed during the nights, that she becomes anxious, sweats, palpitations, breathing gets heavier, mild chest pressure, feels a flutter in her throat area and shoulders and neck feel tense. Denies any radiating pain into jaw, arms or back. States when these sx's occur, shejust lies in bed and dozes off and [...] and no distress. Has h/o Way's esophagus, hiata l hernia, and GERD. Reports she sees Dr. [...] OTHER SYMPTOMS: as above Protocols used: Chest Hmib-JSNGQ-RH documented in this encounterLutheran Hospital01-18-2023 History of Present illness Narrative* Mesha Villarreal RD - 03/29/2022 4:20 PM EST Patient did not attend today's appointment. Mesha Villarreal RD documented in this encounterLutheran Hospital01-09-2023 Miscellaneous Notes* Telephone Encounter - Brenda Hernandez LPN - 03/20/2022 11:21 AM EST Patient phones requesting refills as follows: Requested Prescriptions Pending Prescriptions Disp Refills valACYclovir (VALTREX) 500 mg tablet 60 tablet 5 Sig: Take 1 tablet by mouth twice daily. Magnesium Oxide 500 mg tab 90 tablet 3 Sig: Take 1 tablet by mouth once daily. [facility]IN[facility]-02/17/22 Labs-03/01/22 NOV-none Please review and advise. Brenda Hernandez LPN documented in this encounterLutheran Hospital01-09-2023 Miscellaneous Notes* Telephone Encounter - Brenda Hernandez LPN - 03/20/2022 11:11 AM EST Patient phones requesting refills as follows: Requested Prescriptions Pending Prescriptions Disp Refills hrzesc-rsobrhen-kbqapwg (CREON) 36,000-114,000- 180,000 unit delayed release capsule Sig: Take 3 capsules by mouth three times daily with meals. sucralfate (CARAFATE) 1 gram tablet Sig: Take 1 tablet by mouth before meals and at bedtime. [facility]-02/17/22 Labs-03/01/22 NOV-none med filled 01/04/22 Please review and advise. Brenda Hernandez LPN documented in this encounterLutheran Hospital12-28-2022 History of Present illness Narrative* Chantale Sands Osmel Sophie - 03/08/2022 2:42 PM EST BARIATRIC H&P/PRE-OPERATIVE CONSULT SERVICE DATE: 03/08/2022 SERVICE TIME: 2:40 pm Nikole Clarisa Ann is a 51 year old female who presents on March 08, 2022 for surgical evaluationand treatment of obesity. The patient is interested in laparoscopic gastric bypass mitchel-en-y and has decided to have the procedure with Mayi Powell MD. Age at onset - adolescence. Rate of weight gain is described as gradual over years. Family history positive for obesity in the patient s sister. She considers ideal weight to be 140 lb. Maximum weight 240 lb. Previous treatments include self-directed dieting, mmd unit teacher consultation, supervised diet program, very low calorie [...] syndrome 06/30/2013 Right hand paresthesia 04/28/2013 Seizures ([facility] Snoring Temporomandibular joint disorders, unspecified Toenail deformity [...] 1 tablet by mouth daily at bedtime. tsrffy-mzwymgie-kqsmmkt (CREON) 36,000-114,000- 180,000 unit delayed release capsule [...] nebu Inhale 3 mL as instructed every 4hours as needed for wheezing/shortness of breath. diclofenac (VOLTAREN) 1 % topical gel Apply 2 g to affected area four times daily. uses on foot andleft arm Nebulizers 1 Each as directed. Dx: wheezing, recurrent acute bronchitis, Nebulizer Accessories misc 1 Each as directed. Dx: wheezing, recurrent acute bronchitis, Tubing andmask for nebulizer albuterol HFA (PROVENTIL HFA, VENTOLIN [...] Milnacipran Mental Status Change, Other: See Comments Duson weird. Rivaroxaban Other: See Comments, GI Upset [...] fevers. Neuro: No history of TIA's, stroke, COMMER[employer] BUILDING [employer]CH[employer] tumor, impaired sensorium, hemiplegia, paraplegia or quadriplegia. No neurological symptoms or problems. Respiratory: No history of current cough or dyspnea, or pneumonia in the past 6 weeks. No history of respiratory/pulmonary symptoms or problems. Cardiovascular: No history of HTN requiring medication, no history of angina, CHF, NV, cardiac surgery or stents. Denies rest pain, [...] dialysis. No history of symptoms or problems. 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 PLAN/RECOMMENDATIONS: Clarisa Ann is a 51 years old lady who is here for her preoperative visit. Patient is a good candidate for metabolic surgery based on NIH criteria and will undergo laparoscopic gastric bypass. She has a history of reflux gastritis and bilateral DVTs. She also has h/o lap cholecystectomy and laphysterectomy as previous abdominal surgeries. - She is advised to continue through BMI program - Reviewed principles of energy metabolism, caloric intake and expenditure, and rationale for treatment program. Also reinforced need for reduced calorie, low fat diet and increased physical activity. SIGNATURE: Chantale Barrios (Medical Student) PATIENT NAME: Clarisa Ann DATE: March 08, 2022 TIME: 2:42 [...] which included preparing to see the patient, wewg-hv-icvi patient care, completing clinical documentation, obtaining and/or reviewing separately obtained history, performing a medically appropriate examination, ordering medications, tests, or procedures, and care coordination (not separately reported). IMPRESSION AND PLAN: Clarisa Ann is a pleasant 51 yo female patient, she is almost done with our pathway for MBS (Metabolic & Bariatric Surgery). She has class III obesity, BMI 43, h/o lap ivette, CS, lap tubal ligation. She has a long lasting history of GERD and known Way esophagus confirmed by biopsy (nometaplasia or dysplasia). Discussed the LRYGB as her best option. She has history of DVT twice, wasin coumadin and then on Xarelto. No longer on AC. We will need to extend DVT chemoprophylaxis at [place]. Mayi Powell MD documented in this encounterLutheran Hospital12-20-2022 History of Present illness Narrative* Radha Langston MD - 02/28/2022 1:30 PM EST This Team Access Model visit is a virtual encounter. It required patient- provider interaction for the medical decision making as documented below. Both audio and visual components utilized for this visit. Consent from patient received to conduct visit using telehealth. This visit was performed virtuallydue to the COVID-19 pandemic as an effort [...] on Sucralfate. 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 Use over 5-15minutes. adbjxx-kbeiwpqo-pzbauao (CREON) 36,000-114,000- 180,000 unit delayed release capsule [...] nebu Inhale 3 mL as instructed every 4hours as needed for wheezing/shortness of breath. lactobacillus rhamnosus (CULTURELLE) 15 billion cell capsule Take 1 capsule by mouth once daily. diclofenac (VOLTAREN) 1 % topical gel Apply 2 g to affected area four times daily. uses on foot andleft arm dicyclomine (BENTYL) 10 mg capsule Take 1 capsule by mouth four times daily as needed. Nebulizers 1 Each as directed. Dx: wheezing, recurrent acute bronchitis, Nebulizer Accessories misc 1 Each as directed. Dx: wheezing, recurrent acute bronchitis, Tubing andmask for nebulizer ALLERGIES Allergen Reactions Miconazole Itching Milnacipran Mental Status Change, Other: See Comments Duson weird. Rivaroxaban Other: See Comments, GI Upset [...] damage; had a sleep study done before andthis bothered her-her last PSG was mild, told by sleep med she didn't require a mask Radha Langston MD I spent a total of 30 minutes on the date of the service which included preparing to see the patient, slve-yy-kgby patient care, obtaining and/or reviewing separately obtained history, counseling andeducating the patient/family/caregiver, ordering medications, tests, or procedures, and care coordination (not separately reported). documented in this encounterLutheran Hospital12-19-2022 Miscellaneous Notes* Telephone Encounter - Kristal Tobin Ma - 02/27/2022 9:09 AM EST Surgery has been scheduled as requested. * Telephone Encounter - Kristal Tobin Ma - 02/24/2022 3:45 PM EST Surgical request completed for left CTR and left shoulder injection at [facility] on 03/22/2022. Post op appointments have been scheduled and mailed to patient. documented in this encounterLutheran Hospital12-15-2022 History of Present illness Narrative* Charlie Draper MD - 02/23/2022 9:16 AM EST Charlie Draper MD Department of Orthopaedics Orthopaedics [address] [place] [id number] Dept: [phone] Dept February 23, 2022 CHIEF COMPLAINT: Established [...] She is having some numbness in her 3- 5 fingers. It it worse with driving. 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 Patient is right hand dominant. Taking Meloxicam for the pain and is no help. She did have an EMG done on 05/23/13 on her right hand and had CTR done on 08/01/13. Pt is not , nor is she 3 months post-. Intake information documented in the prior visit with Dr. Olguin on 02/17/22. [facility] ROOMING INTAKE FLOWSHEET DATA Pain Pain [...] This seems like a reasonable request. Ms. Clarisa Ann was advised as to contrast therapies and/or to take analgesics/anti-inflammatories as needed and all contraindications were reviewed. OBJECTIVE: Ms. Clarisa Ann is a pleasant 51 year old [...] of motion and no tenderness to palpation, Spurling'ssign negative. Shoulders and elbows have pain free range of motion with still some diminished on the left elbow. She has positive neer and hawkin's exam. 4+/5 supraspinatus testing. Neg. Tinel's overthe cubital tunnel, no subluxation of ulnar nerve at the elbow with flexion. Neg Tinel's over Guyon' s canal. Inspection reveals no thenar atrophy. diminished [...] for wheezing/shortness of breath. Use over 5-15minutes. scfxal-wwveugdr-uvywkfo (CREON) 36,000-114,000- 180,000 unit delayed release capsule [...] nebu Inhale 3 mL as instructed every 4hours as needed for wheezing/shortness of breath. lactobacillus rhamnosus (CULTURELLE) 15 billion cell capsule Take 1 capsule by mouth once daily. diclofenac (VOLTAREN) 1 % topical gel Apply 2 g to affected area four times daily. uses on foot andleft arm dicyclomine (BENTYL) 10 mg capsule Take 1 capsule by mouth four times daily as needed. Nebulizer Accessories misc 1 Each as directed. Dx: wheezing, recurrent acute bronchitis, Tubing andmask for nebulizer Nebulizers 1 Each as directed. [...] anxiety) Charlie Draper MD documented in this encounterLutheran Hospital12-09-2022 History of Present illness Narrative* Brenda Howard RT(R) - 02/17/2022 10:30 AM EST Radiology Service Progress Note PATIENT NAME: Clarisa Ann DATE OF SERVICE: February 17, 2022 TIME: 10:30 AM PATIENT IDENTITY VERIFICATION COMPLETED USING TWO (2) IDENTIFIERS: Name and Date of confirmedby patient verbally. FALL SCREENING: Has the patient [...] 17, 2022 10:30 AM documented in this encounterLutheran Hospital12-09-2022 History of Present illness Narrative* Tang Olguin, DO - 02/17/2022 10:02 AM EST CC: Calrisa Ann is a 51 year old female who presents to the office for follow up HPI: Left hand pain, tingling and swelling feeling. Was seen in EMERGENCY DEPARTMENT yesterday and had xray of ulna and radius which was normal. Also xray of left shoulder showed calcific tendinitis. Xrayof wrist left side was also normal. Is interested in seeing orthopedics- this has caused her to lose her job since not able to use her left arm well without pain. Is taking meloxicam medication without relief. Cough, present for 2-3 weeks, sputum production is yellow in appearance. Did have fever and chills-those resolved. Did covid and influenza testing which [...] for wheezing/shortness of breath. Use over 5-15minutes. sxcnzs-vgghycju-oslayjj (CREON) 36,000-114,000- 180,000 unit delayed release capsule [...] nebu Inhale 3 mL as instructed every 4hours as needed for wheezing/shortness of breath. lactobacillus rhamnosus (CULTURELLE) 15 billion cell capsule Take 1 capsule by mouth once daily. diclofenac (VOLTAREN) 1 % topical gel Apply 2 g to affected area four times daily. uses on foot andleft arm dicyclomine (BENTYL) 10 mg capsule Take 1 capsule by mouth four times daily as needed. Nebulizers 1 Each as directed. Dx: wheezing, recurrent acute bronchitis, Nebulizer Accessories misc 1 Each as directed. Dx: wheezing, recurrent acute bronchitis, Tubing andmask for nebulizer No current facility-administered medications for this visit. ALLERGIES Allergen Reactions Miconazole Itching Milnacipran Mental Status Change, Other: See Comments Duson weird. Rivaroxaban Other: See Comments, GI Upset [...] nares without drainage, pharynx without erythema, exudate, lesions,or drainage. Uvula midline. Neck: No LAD, no thyromegaly, no meningismus. + neck muscle tension left >right side with spasmsof muscle present and trigger point on left mid trapezius CV: RRR, no murmur, normal s1s2 Left chest wall TTP that is reproducible Lungs: CTA b/l, coughing, rhonchi present at bases. Skin: No rashes, lesions, or wounds on exposed skin. 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 Need for influenza vaccination - ICD9: V04.81, ICD10: Z23 (primary diagnosis) - INFLUENZA VACCINE QUADRIVALENT 6 MO - 64 YRS IM 2. Left arm pain - ICD9: 729.5, ICD10: M79.602 Xray of cervical spine needed and follow up with orthopedics for opinion. Unsure where symptoms arecoming from but suspicious of potential impingement. - XR CERV OTHER 4V AP/LAT/OBL - CONSULT TO ORTHOPAEDICS 3. Left hand pain - ICD9: 729.5, ICD10: M79.642 Xray of cervical spine needed and follow up with orthopedics for opinion. Unsure where symptoms arecoming from but suspicious of potential impingement. Xray of wrist and elbow/ulna and radius was normal - XR CERV OTHER 4V AP/LAT/OBL - CONSULT TO ORTHOPAEDICS 4. Paresthesia - ICD9: 782.0, ICD10: R20.2 Xray of cervical spine needed and follow up with orthopedics for opinion. Unsure where symptoms arecoming from but suspicious of potential impingement. Xray of wrist and elbow/ulna and radius was normal - XR CERV OTHER 4V AP/LAT/OBL - CONSULT TO ORTHOPAEDICS 5. Other chest pain - ICD9: 786.59, ICD10: R07.89 Atypical chest pain, likely related to recent cough/chest cold and neck / left arm pain, not likelycardiac by description. - ECG COMPLETE 6. Subacute cough - ICD9: 786.2, ICD10: R05.2 Atypical chest pain, likely related to recent cough/chest cold and neck / left arm pain, not likelycardiac by description. - METHYLPREDNISOLONE 4 MG TABLETS [...] plan. See patient instructions. Tang Olguin DO [address] [place] [address] documented in this encounterLutheran Hospital11-30-2022 Instructions* Patient Instructions* Tawny Cope MD - 02/08/2022 1:26 PM EST I discussed regarding nature of Chronic pain syndrome. Discussed that this is not an inflammatory rheumatologic disease. It is a disorder that causes widespread muscle pain and tenderness which tendsto come and go and move about the [...] - Gentle Yoga Anyone Can Do Anywhere www.[employer]/yoga Sleep : Improving sleep hygiene and quality, [...] i.e. Vitamin D, B12, omega-3 fatty acids [place]-3 plant based rich foods are good anti-inflammatory sources such as : lydia seeds, flax seed (needs to be ground), walnuts, hemp seeds, dark green leafy vegetables Medication, while important, are not first choice and not indicated for all patients, and not the only treatment. Patient education, exercise, self- management skills and alternative therapies help treat fibromyalgia symptoms. Certain patient require anti-depressants, especially if they have a diagnosis of depression. Patients who have other associated disorders, such as depression, would need to be evaluated and treated by their Primary care physician or Psychiatrist. Recommend the Fibroguide at www.[email or web address].DWNLD website. It has shown that the website alone can be very effective in helping manage fibromyalgia symptoms. As discussed, this is a pain syndrome and usually well managed by primary care physicians. In certain cases, a referral to a nutrition specialist and multidisciplinary management may be required, in patients who fail traditional management approach as prescribed by primary care physician and as listed above. documented in this encounterLutheran Hospital11-30-2022 History of Present illness Narrative* Tawny Cope MD - 02/08/2022 1:00 PM EST Images from the original note were not included. Rheumatology Outpatient Clinic Date of Service: 02/08/2022 Patient: Clarisa Ann Medical Record: [id number] Primary Care Physician: Tang Olguin DO Referring Provider: Tang Olguin [address] [facility] [place] [address] Last Rheumatology visit: 07/23/2019 (with Andrés Bond) Chief complaint: Consult (Multiple joint pain, whole body, pain scale 8-9, aching pain, x years, just getting worse. ) History of Present Illness Clarisa Ann is a 51 year old White [...] worse. ). She is currently taking meloxicam. Clarisa is both RF - 9 (01/04/2022) and CCP - 13.5 (03/07/2019) negative. Her most recent ANTOINETTE wasnegative (01/04/2022). HISTORY OF PRESENT ILLNESS Patient was [...] trigger finger release LAPAROSCOPIC TUBAL LIGATION/RING/CLIP 2012 earl, saw vesicouterine adhesions LAPAROSCOPY DIAGNOSTIC 2015 extensive KEVYN, [...] Milnacipran Mental Status Change, Other: See Comments Duson weird. Rivaroxaban Other: See Comments, GI Upset [...] for wheezing/shortness of breath. Use over 5-15minutes. bcvngi-ovaxviyl-psxvxmd (CREON) 36,000-114,000- 180,000 unit delayed release capsule [...] nebu Inhale 3 mL as instructed every 4hours as needed for wheezing/shortness of breath. lactobacillus rhamnosus (CULTURELLE) 15 billion cell capsule Take 1 capsule by mouth once daily. diclofenac (VOLTAREN) 1 % topical gel Apply 2 g to affected area four times daily. uses on foot andleft arm dicyclomine (BENTYL) 10 mg capsule Take 1 capsule by mouth four times daily as needed. Nebulizers 1 Each as directed. Dx: wheezing, recurrent acute bronchitis, Nebulizer Accessories misc 1 Each as directed. Dx: wheezing, recurrent acute bronchitis, Tubing andmask for nebulizer No current facility-administered medications for this visit. Labs CBC Latest Ref Rng & Units 03/18/2021 07/08/2021 12/05/2021 01/04/2022 WBC 3.70 - 11.00 k/uL - 7.52 10.72 10.77 HEMOGLOBIN 11.5 - 15.5 g/dL - 12.7 13.0 13.3 HEMOGLOBIN, LEVY 11.5 - 15.5 g/dL - - - - HEMATOCRIT 36.0 - 46.0 % 39.3 39.7 41.1 41.8 PLATELETS 150 - 400 k/uL - 280 300 247 ABS NEUT (ANC) 1.45 - 7.50 k/uL - 5.19 7.60(H) - ABS NEUT, LEVY 1.45 - 7.50 k/uL - - - - ABS LYMP, LEVY 1.00 - 4.00 k/uL - - - - ABS LYMPH 1.00 - 4.00 k/uL - 1.70 2.32 - CMP Latest Ref Rng & Units 03/18/2021 07/08/2021 12/05/2021 01/04/2022 SODIUM 136 - 144 mmol/L 136 139 139 140 SODIUM, LEVY 136 - 145 mmol/L - - - - SODIUM, LEVY 136 - 145 mmol/L - - - - POTASSIUM 3.7 - 5.1 mmol/L 4.2 4.3 3.8 4.6 POTASSIUM, LEVY 3.5 - 5.1 mmol/L - - - - CHLORIDE 97 - 105 mmol/L 101 103 104 102 CHLORIDE, LEVY 98 - 107 mmol/L - - - - CO2 22 - 30 mmol/L 24 27 22 26 CO2, LEVY 21.0 - 32.0 mmol/L - - - - GLUCOSE 74 - 99 mg/dL 96 97 84 95 GLUCOSE (U), LEVY NEGAT mg/dL - - - - GLUCOSE, LEVY 70 - 99 mg/dL - - - - BUN 7 - 21 mg/dL 12 8 8 11 BUN, LEVY 7 - 18 mg/dL - - - - CREATININE 0.58 - 0.96 mg/dL 0.73 0.72 0.73 0.76 CREATININE, LEVY 0.6 - 1.0 mg/dL - - - - CALCIUM, LEVY 8.5 - 10.1 mg/dL - - - - CALCIUM, TOTAL 8.5 - 10.2 mg/dL 9.4 9.2 9.5 9.0 AST 13 - 35 U/L 15 15 16 10(L) AST, LEVY 7 - 40 U/L - - - - ALT 7 - 38 U/L 20 18 20 16 ALT, LEVY 0 - 45 U/L - - - - ALKALINE PHOSPHATASE 34 - 123 U/L 113 119 134(H) 131(H) Uric Acid Latest Ref Rng & Units 01/31/2013 03/07/2019 URIC ACID 2.5 - 6.6 mg/dL 4.7 4.3 ESR, WSR Latest Ref Rng & Units 04/07/2019 07/29/2019 05/26/2020 01/04/2022 WSR 0 - 20 mm/hr 31(H) 35(H) 52(H) 35(H) SED RATE, LEVY 0 - 20 mm/hr - - - [...] W/CONFIRMATION <30 IU/mL - - - - MAILING MANAGER ANTIBODY <1.0 AI - - <0.2 - MAILING MANAGER ANTIBODY QUAL Negative - - - Negative SSA ANTIBODY <1.0 AI - - <0.2 - SSA ANTIBODY QUAL Negative - - - Negative SSB ANTIBODY <1.0 AI - - <0.2 - TIANA-1 ANTIBODY, IGG <1.0 AI - - <0.2 <0.2 TIANA 1 ANTIBODY QUAL Negative - - - Negative RIBOSOMAL MAILING MANAGER <1.0 AI - - <0.2 - RIBOSOMAL MAILING MANAGER AB <1.0 AI - - - <0.2 RIBOSOMAL MAILING MANAGER QUAL Negative - - - Negative ANTI-SSA [...] mg/dL Negative - - - PROTEIN (U), LEVY NEGAT mg/dL - - - - PROTEIN UA (POCT) Negative mg/dL - Negative Negative Negative RBC, URINE 0 - 3 /HPF - - - - RBC, URINE, LEVY /hpf - - - - Vitamin D [...] IMPRESSION: No bone or articular disease identified. Head Cook: LEON Transcribe Date/Time: Jul 29 2019 9:33A [...] joint effusion. Bony enlargement over multiple DIP bonyenlargement over multiple DIPs Diagnoses: (M25.50) Multiple joint [...] causes widespread muscle pain and tenderness which tendsto come and go and move about the [...] - Gentle Yoga Anyone Can Do Anywhere www.[employer]/yoga Sleep : Improving sleep hygiene and quality, [...] i.e. Vitamin D, B12, omega-3 fatty acids [place]-3 plant based rich foods are good anti-inflammatory sources such as : lydia seeds, flax seed (needs to be ground), walnuts, hemp seeds, dark green leafy vegetables Medication, while important, are not first choice and not indicated for all patients, and not the only treatment. Patient education, exercise, self- management skills and alternative therapies help treat fibromyalgia symptoms. Certain patient require anti-depressants, especially if they have a diagnosis of depression. Patients who have other associated disorders, such as depression, would need to be evaluated and treated by their Primary care physician or Psychiatrist. Recommend the Fibroguide at [email or web address].[email or web address] website. It has shown that the website alone can be very effective in helping manage fibromyalgia symptoms. As discussed, this is a pain syndrome and usually well managed by primary care physicians. In certain cases, a referral to a nutrition specialist and multidisciplinary management may be required, [...] which included preparing to see the patient, wwxl-ma-ujsh patient care, completing clinical documentation, obtaining and/or reviewing separately obtained history, performing a medically appropriate examination, and counseling and educating the patient/family/caregiver. Tawny Cope MD, [facility] documented in this encounterLutheran Hospital11-17-2022 Miscellaneous Notes* Telephone Encounter - Jane Flores RPh - 01/26/2022 3:36 PM EST Left message for patient to call and reschedule PharmD appointment. Jane Flores RPh, PharmD PGY1 Liquor Commissioner documented in this encounterLutheran Hospital10-28-2022 Miscellaneous Notes* Telephone Encounter - Neva Shields APRN.CNP - 01/06/2022 8:41 AM EDT Ordered 01/04/2022. Neva Shields APRN.CNP * Telephone Encounter - Karen Middleton Ma - 01/03/2022 8:36 AM EDT Last office visit: 12/27/21 F/u scheduled: 02/17/22 Karen Middleton Ma documented in this encounterLutheran Hospital10-26-2022 History of Present illness Narrative* Neva Shields APRN.RESIDENCE LIFE DIRECTOR - 01/04/2022 2:58 PM EDT Chief Complaint Patient presents with: Hypertension HPI Clarisa Ann is a 51 year old female [...] Milnacipran Mental Status Change, Other: See Comments Duson weird. Rivaroxaban Other: See Comments, GI Upset [...] nebu Inhale 3 mL as instructed every 4hours as needed for wheezing/shortness of breath. fluticasone [...] area four times daily. uses on foot andleft arm dicyclomine (BENTYL) 10 mg capsule Take 1 capsule by mouth four times daily as needed. Nebulizers 1 Each as directed. Dx: wheezing, recurrent acute bronchitis, Nebulizer Accessories misc 1 Each as directed. Dx: wheezing, recurrent acute bronchitis, Tubing andmask for nebulizer traZODone (DESYREL) 50 mg tablet [...] 1 tablet by mouth daily at bedtime. FORblood pressure (Patient not taking: Reported on 01/04/2022) [...] in no acute distress, well-hydrated, well nourished. andMorbidly obese. Oropharynx: Lips, mucosa, and tongue normal, [...] ALBUTEROL SULFATE HFA 90 MCG/ACTUATION AEROSOL INHALER Neva Shields APRN.CNP documented in this encounterLutheran Hospital10-18-2022 Instructions* Patient Instructions* Tang Olguin DO - 12/27/2021 11:09 AM EDT Plan Rep Dr. Jhonathan Luan documented in this encounterLutheran Hospital10-18-2022 History of Present illness Narrative* Tang Olguin DO - 12/27/2021 10:59 AM EDT CC: Clarisa Ann is a 51 year old female who presents to the office for follow up HPI: Hiatal hernia, diagnosed with moderate size. Also confirmed to have Wya's esophagus [facility]. Also found to have pancreatic insufficiency and now taking Creon with meals. Still struggling with bloating and indigestion. Has a follow up. Found to have elevated CRP at 28. Has a lot of chronic muscle and joint pains. Has been diagnosed with fibromyalgia in the past. Hasn't seen Plan Rep recently. Cough, present for 3-4 weeks. Was treated with amoxicillin and cough medication without relief. Hasbeen using her albuterol and mucinex as well. No fevers or chills. Symptoms worse when trying to beactive or laying down at night. Had labs [...] A1C Mild intermittent asthma without complication 10/27/2019 NNKEA (obstructive sleep apnea) 10/27/2019 Patellofemoral disorder 03/09/2009 [...] S CATH ABLATION THERMACHOICE 2013 uterine ablation Social History: Social History Tobacco [...] nebu Inhale 3 mL as instructed every 4hours as needed for wheezing/shortness of breath. fluticasone [...] area four times daily. uses on foot andleft arm cholestyramine (QUESTRAN) 4 gram packet Take 1 Packet by mouth three times daily with meals. dicyclomine (BENTYL) 10 mg capsule Take 1 capsule by mouth four times daily as needed. Nebulizers 1 Each as directed. Dx: wheezing, recurrent acute bronchitis, Nebulizer Accessories misc 1 Each as directed. Dx: wheezing, recurrent acute bronchitis, Tubing andmask for nebulizer doxycycline (VIBRA-TABS) 100 mg tablet [...] 1 tablet by mouth daily at bedtime. FORblood pressure Allergies: ALLERGIES Allergen Reactions Miconazole Itching Milnacipran Mental Status Change, Other: See Comments Duson weird. Rivaroxaban Other: See Comments, GI Upset [...] f/u with repeat labs and referral to Plan Rep, CRP at [facility] recently at 26-28. Hx of fibromyalgia. No diagnosis in past of inflammatory arthritis. Unsure cause - CONSULT TO RHEUM/IMMUN DISEASE - ANTI EDSON ID - ANTOINETTE BLOOD - RHEUMATOID FACTOR BL 4. CRP elevated - ICD9: 790.95, ICD10: R79.82 - f/u with repeat labs and referral to Plan Rep, CRP at [facility] recently at 26-28. Hx of fibromyalgia. No diagnosis in past of inflammatory arthritis. Unsure cause - CONSULT TO RHEUM/IMMUN DISEASE - ANTI EDSON ID - ANTOINETTE BLOOD - RHEUMATOID FACTOR BL 5. 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 Hiatal hernia - [...] agreed with the plan. Tang Olguin DO [address] [place] [address] documented in this encounterLutheran Hospital09-29-2022 Miscellaneous Notes* Telephone Encounter - Silva Sweeney APRN.CNP - 12/08/2021 8:40 AM EDT Noted. Thank you, Silva Sweeney APRN.CNP * Telephone Encounter - Alicia Christian Ma - 12/08/2021 8:39 AM EDT Pt informed and agreed to go to the ER. Alicia Christian Ma * Telephone Encounter - Silva Sweeney APRN.CNP - 12/08/2021 8:33 AM EDT Please call patient and let her know that if she is having numbness or abnormal feeling to one sideof her face/body -- she needs to go to ER d/t concerns for stroke. Thank you, Silva Sweeney APRN.CNP * Telephone Encounter - Barbara Rojas Ma - 12/06/2021 12:05 PM EDT Please review labs. Pt also sent additional message regarding D-Dimer, but I'm closing it as this encounter is open. Barbara Rojas Ma documented in this encounterLutheran Hospital09-27-2022 Miscellaneous Notes* Telephone Encounter - Barbara Rojas Ma - 12/06/2021 12:07 PM EDT Duplicate request. Pt sent in additional message regarding lab results. Barbara Rojas Ma documented in this encounterLutheran Hospital09-26-2022 History of Present illness Narrative* Silva Sweeney APRN.RESIDENCE LIFE DIRECTOR - 12/05/2021 11:03 AM EDT Chief Complaint Patient presents with: Cough HPI Clarisa Ann is a 51 year old female who presents here today for Above Complaints. Clarisa is an established patient of Dr. Sharif DO. Lorna is a new patient to me today. Concerns today... Cough, Congestion, headache -- Been to [facility] urgent care x2 in the last 6 days. At first visit 6 days ago, tested negative for COVID. Given amoxicillin ATB regimen. Symptoms did not improve and returned to yesterday, given prednisone taper. COVID negative again. Today... Reports only taking 1 prednisone tablet and had extreme itchiness and throat closing sensation soshe stopped taking this and does not want [...] Milnacipran Mental Status Change, Other: See Comments Duson weird. Rivaroxaban Other: See Comments, GI Upset [...] nebu Inhale 3 mL as instructed every 4hours as needed for wheezing/shortness of breath. metoprolol succinate ER (TOPROL XL) 25 mg 24 hr tablet Take 1 tablet by mouth daily at bedtime. FORblood pressure (Patient not taking: Reported on 08/23/2021 [...] area four times daily. uses on foot andleft arm cholestyramine (QUESTRAN) 4 gram packet Take 1 Packet by mouth three times daily with meals. (Patient not taking: Reported on 03/18/2021 ) dicyclomine (BENTYL) 10 mg capsule Take 1 capsule by mouth four times daily as needed. Nebulizers 1 Each as directed. Dx: wheezing, recurrent acute bronchitis, Nebulizer Accessories misc 1 Each as directed. Dx: wheezing, recurrent acute bronchitis, Tubing andmask for nebulizer No current facility-administered medications on [...] and extension, good range of motion, no muscletenderness, reflexes are 2+ and symmetric, motor and [...] agreeable to treatment plan. Silva Sweeney APRN.CNP [address] [place] [address] documented in this encounterLutheran Hospital09-26-2022 Miscellaneous Notes* Telephone Encounter - Neva Shields APRN.CNP - 12/05/2021 9:22 AM EDT Noted, thank you. Neva Shields APRN.CNP * Telephone Encounter - Sanam Landers LPN - 12/05/2021 9:00 AM EDT Pt calls and states the following: COUGH [...] coughing Pt states went to [facility] at [facility] on 11-30-21 dx with sinus infection. Pt [...] am. Sanam Landers LPN documented in this encounterLutheran Hospital08-31-2022 History of Present illness Narrative* Tang Olguin, DO - 11/09/2021 8:10 PM EDT CC: Clarisa Ann is a 51 year old female [...] stools. Hx of hemorrhoids. Also having nausea, gassiness,abdominal bloating symptoms. No known hx of food [...] Doesn't feel that she is tolerating this. Duson better at 37.5 mg dose daily. Asking [...] blood in stool. Feels full quickly with eating,sometimes feels nausea and need to vomit after [...] nebu Inhale 3 mL as instructed every 4hours as needed for wheezing/shortness of breath. metoprolol succinate ER (TOPROL XL) 25 mg 24 hr tablet Take 1 tablet by mouth daily at bedtime. FORblood pressure (Patient not taking: Reported on 08/23/2021 [...] area four times daily. uses on foot andleft arm cholestyramine (QUESTRAN) 4 gram packet Take 1 Packet by mouth three times daily with meals. (Patient not taking: Reported on 03/18/2021 ) dicyclomine (BENTYL) 10 mg capsule Take 1 capsule by mouth four times daily as needed. Nebulizers 1 Each as directed. Dx: wheezing, recurrent acute bronchitis, Nebulizer Accessories misc 1 Each as directed. Dx: wheezing, recurrent acute bronchitis, Tubing andmask for nebulizer No current facility-administered medications for this visit. ALLERGIES Allergen Reactions Miconazole Itching Milnacipran Mental Status Change, Other: See Comments Duson weird. Rivaroxaban Other: See Comments, GI Upset [...] nares without drainage, pharynx without erythema, exudate, lesions,or drainage. Uvula midline. Neck: No LAD, no [...] - ICD9: 789.07, ICD10: R10.84 F/u with Valet Parking Attendant, has pancreatic insufficiency, also concerns for potential other causesof symptoms Tang Olguin DO Return if no improvement. Follow up with Tang Olguin DO. To ER if develops chest pain, shortness of breath, Discussed risks, benefits, alternatives, and potential side effects of medications. Patient/Guardian expressed understanding and agreed with the plan. See patient instructions. Tang Olguin DO [address] [place] [address] documented in this encounterLutheran Hospital08-31-2022 Instructions* Patient Instructions* Tang Olguin DO - 11/09/2021 4:43 PM EDT Eosinophilic esophagitis evaluation? documented in this encounterLutheran Hospital06-14-2022 History of Present illness Narrative* Deysi Mcfarland APRN.RESIDENCE LIFE DIRECTOR - 08/23/2021 9:44 AM EDT CC: Patient presents with: Chest Congestion: cough, bodyaches and sinus pressure x 3 days, boyfriend + covid on HPI: Clarisa Ann is a 51 year old female [...] of bronchitis, chronic bronchitis, bronchiectasis or COPD: yesashtma Smoker: No Seasonal/environmental allergies: No The ROS [...] nebu Inhale 3 mL as instructed every 4hours as needed for wheezing/shortness of breath. lactobacillus [...] area four times daily. uses on foot andleft arm dicyclomine (BENTYL) 10 mg capsule Take 1 capsule by mouth four times daily as needed. fluticasone (FLOVENT HFA) 110 mcg/actuation inhaler Inhale 1 Puff as instructed twice daily. Rinse mouth after using. Nebulizers 1 Each as directed. Dx: wheezing, recurrent acute bronchitis, Nebulizer Accessories misc 1 Each as directed. Dx: wheezing, recurrent acute bronchitis, Tubing andmask for nebulizer venlafaxine ER (EFFEXOR XR) 75 [...] 1 tablet by mouth daily at bedtime. FORblood pressure fluticasone (FLONASE) 50 mcg/actuation nasal spray [...] plan. Deysi Mcfarland APRN.SERA documented in this encounterLutheran Hospital05-12-2022 Miscellaneous Notes* Telephone Encounter - Sanam Landers LPN - 07/21/2021 8:09 AM EDT Pt seen in . Sanam Landers LPN * Telephone Encounter - Stacy Montalvo - 07/20/2021 2:40 PM EDT 1st attempt - LVM for patient to [...] should the patient be seen? In Office * Telephone Encounter - Nelly Myrick LPN - 07/20/2021 10:54 AM EDT Please assist in aking pt appointment to come in and be seen. , * Telephone Encounter - Tang Olguin DO - 07/20/2021 10:07 AM EDT Agree with need for appt as below Tang Olguin DO * Telephone Encounter - Sanam Landers LPN - 07/20/2021 9:40 AM EDT Pt calls and states the following: she had a shingles vaccine at [facility] 07-13-21. States feeling sluggish for the past [...] vaccine. Sanam Landers LPN documented in this encounterLutheran Hospital05-11-2022 History of Present illness Narrative* Raymond Sen APRN.RESIDENCE LIFE DIRECTOR - 07/20/2021 10:44 AM EDT Images from the original note were not included. Subjective HPI HPI Clarisa Ann is a 51 year old female [...] extensive KEVYN, severe LAPS SURG CHOLECYSTECTOMY W/CHOLANGIOGRAPHY 2/21/07 LAPS W/VAG HYSTERECT 250 GM/&RMVL TUBE&/OVARIES 2014 [...] nebu Inhale 3 mL as instructed every 4hours as needed for wheezing/shortness of breath. metoprolol succinate ER (TOPROL XL) 25 mg 24 hr tablet Take 1 tablet by mouth daily at bedtime. FORblood pressure lactobacillus rhamnosus (CULTURELLE) 15 billion cell [...] area four times daily. uses on foot andleft arm dicyclomine (BENTYL) 10 mg capsule Take 1 capsule by mouth four times daily as needed. fluticasone (FLOVENT HFA) 110 mcg/actuation inhaler Inhale 1 Puff as instructed twice daily. Rinse mouth after using. Nebulizers 1 Each as directed. Dx: wheezing, recurrent acute bronchitis, Nebulizer Accessories misc 1 Each as directed. Dx: wheezing, recurrent acute bronchitis, Tubing andmask for nebulizer predniSONE (DELTASONE) 20 mg tablet [...] 0.1 % TOPICAL CREAM Agrees to plan Raymond Sen APRN.SERA documented in this encounterLutheran Hospital04-30-2022 Miscellaneous Notes* Telephone Encounter - Sanam Landers LPN - 07/09/2021 8:17 AM EDT Spoke with pt and information listed below given. Pt verbalizes understanding. FYI: Pt states she is already taking an iron supplement (1) per day. Pt will increase to (2) per day. Sanam Landers LPN * Telephone Encounter - Tang Olguin DO - 07/09/2021 7:10 AM EDT Please inform patient that her labs show that her iron levels are low normal. Needs to be taking aniron supplemnt such as ferrous sulfate twice a day with meals. Her vitamin D is also borderline range at 37. Needs to be taking an extra 1000 international unit(s) A day of vitamin D3 supplement from what she is already taking currently. Tang Olguin DO documented in this encounterLutheran Hospital04-29-2022 History of Present illness Narrative* Tang Olguin DO - 07/08/2021 8:53 AM EDT CC: Clarisa Ann is a 51 year old female [...] stools. Hx of hemorrhoids. Also having nausea, gassiness,abdominal bloating symptoms. No known hx of food [...] nebu Inhale 3 mL as instructed every 4hours as needed for wheezing/shortness of breath. metoprolol succinate ER (TOPROL XL) 25 mg 24 hr tablet Take 1 tablet by mouth daily at bedtime. FORblood pressure lactobacillus rhamnosus (CULTURELLE) 15 billion cell [...] area four times daily. uses on foot andleft arm dicyclomine (BENTYL) 10 mg capsule Take [...] directed. Dx: wheezing, recurrent acute bronchitis, Tubing andmask for nebulizer No current facility-administered medications for this visit. ALLERGIES Allergen Reactions Miconazole Itching Milnacipran Mental Status Change, Other: See Comments Duson weird. Rivaroxaban Other: See Comments, GI Upset [...] nares without drainage, pharynx without erythema, exudate, lesions,or drainage. Uvula midline. Neck: No LAD, no [...] plan. See patient instructions. Tang Olguin DO [address] [place] [address] documented in this encounterLutheran Hospital01-07-2022 History of Present illness Narrative* Brenda Howard, RT(R) - 03/18/2021 10:20 AM EST Radiology Service Progress Note PATIENT NAME: Clarisa Ann DATE OF SERVICE: March 18, 2021 TIME: 10:19 AM PATIENT IDENTITY VERIFICATION COMPLETED USING TWO (2) IDENTIFIERS: Name and Date of confirmedby patient verbally. FALL SCREENING: Has the patient [...] 18, 2021 10:48 AM documented in this encounterLutheran Hospital12-08-2021 History of Present illness Narrative* Rufino Jones RT(R) - 02/16/2021 5:10 PM EST Radiology Service Progress Note PATIENT NAME: Clarisa Ann DATE OF SERVICE: February 16, 2021 TIME: 5:16 PM PATIENT IDENTITY VERIFICATION COMPLETED USING TWO (2) IDENTIFIERS: Name and Date of confirmedby patient verbally. FALL SCREENING: Has the patient [...] 16, 2021 5:16 PM documented in this encounterLutheran Hospital04-19-2021 History of Present illness Narrative* Brenda Howard (Rt), Tech - 06/28/2020 9:50 AM EDT Radiology Service Progress Note PATIENT NAME: Clarisa Ann DATE OF SERVICE: June 28, 2020 TIME: 10:03 AM PATIENT IDENTITY VERIFICATION COMPLETED USING TWO (2) IDENTIFIERS: Name and Date of confirmedby patient verbally. FALL SCREENING: Has the patient had 2 falls in the last year or 1 fall with injury or currently using an Ambulatory Assistive Device (Walker, Cane, Wheelchair, Crutches, etc.)? No PATIENT GENDER DATA: Female. status: : No status: NO. PATIENT RELEVANT IMPLANT DATA REVIEWED: Not Applicable RADIOLOGY DEPARTMENT: General X-ray: Exam(s) Completed: Upper Extremity X- Ray(s): Elbow, left : PERIPHERAL IV DATA: Not applicable SIGNED BY: RT Will June 28, 2020 10:03 AM documented in this encounterLutheran Hospital12-06-2016 History of Past illness Narrative* Problem Noted [...] examination 01/11/2011 01/15/2012 [facility]: [facility] Levy Godinez 10/04/2010 07/25/2016 Acute gastritis without mention [...] of this encounter (statuses as of 07/11/2021) [facility] of Past illness Narrative* Problem Noted [...] Manning Routine gynecological examination 01/11/2011 01/15/2012 Overview: [facility], [facility] Levy Godinez 10/04/2010 07/25/2016 Acute gastritis without mention [...] of this encounter (statuses as of 07/15/2021) [facility] of Past illness Narrative* Problem Noted [...] Manning Routine gynecological examination 01/11/2011 01/15/2012 Overview: [facility], [facility] 07/25/2016 Acute gastritis without mention of [...] of this encounter (statuses as of 07/20/2021) [facility] of Past illness Narrative* Problem Noted [...] gynecological examination 01/11/2011 01/15/2012 Overview: [facility] [place], [facility] Levy Pablitomagdi 10/04/2010 07/25/2016 Acute gastritis without mention [...] of this encounter (statuses as of 07/21/2021) [facility] of Past illness Narrative* Problem Noted [...] examination 01/11/2011 01/15/2012 Overview: [facility] Levy Godinez 10/04/2010 07/25/2016 Acute gastritis without mention [...] of this encounter (statuses as of 08/23/2021) [facility] illness Narrative* Problem Noted [...] Manning Routine gynecological examination 01/11/2011 01/15/2012 Overview: [facility], [facility] Levy Godniez 10/04/2010 07/25/2016 Acute gastritis without mention of [...] of this encounter (statuses as of 10/18/2021) [facility] Narrative* Problem Noted [...] Manning Routine gynecological examination 01/11/2011 01/15/2012 Overview: [facility], [facility] Levy Godinez 10/04/2010 07/25/2016 Acute gastritis without mention [...] of this encounter (statuses as of 11/10/2021) [facility] Narrative* Problem Noted [...] Routine gynecological examination 01/11/2011 01/15/2012 Overview: [facility] 07/25/2016 Acute gastritis [...] of this encounter (statuses as of 12/05/2021) [facility] Narrative* Problem Noted [...] Manning Routine gynecological examination 01/11/2011 01/15/2012 Overview: [facility], [facility] Levy Pablitomagdi 10/04/2010 07/25/2016 Acute gastritis without mention [...] of this encounter (statuses as of 12/05/2021) [facility] Narrative* Problem Noted [...] examination 01/11/2011 01/15/2012 Overview: [facility] Levy Godinez 10/04/2010 07/25/2016 Acute gastritis without mention [...] of this encounter (statuses as of 12/06/2021) [facility] Narrative* Problem Noted [...] examination 01/11/2011 01/15/2012 Overview: [facility] Levy Hayfever 10/04/2010 07/25/2016 Acute gastritis without mention of [...] of this encounter (statuses as of 12/08/2021) [facility] Narrative* Problem Noted [...] Manning Routine gynecological examination 01/11/2011 01/15/2012 Overview: [facility], [facility] Levyeusebia Kenneyrosalio 10/04/2010 07/25/2016 Acute gastritis without mention [...] of this encounter (statuses as of 12/27/2021) [facility] Narrative* Problem Noted [...] Manning Routine gynecological examination 01/11/2011 01/15/2012 Overview: [facility], [facility] Levy Godinez 10/04/2010 07/25/2016 Acute gastritis without mention [...] of this encounter (statuses as of 01/04/2022) [facility] Narrative* Problem Noted [...] examination 01/11/2011 01/15/2012 Overview: [facility]2010 07/25/2016 Acute gastritis without mention of [...] of this encounter (statuses as of 01/06/2022) [facility] Narrative* Problem Noted [...] examination 01/11/2011 01/15/2012 Overview: [facility] Levy Godinez 10/04/2010 07/25/2016 Acute gastritis without mention [...] of this encounter (statuses as of 01/09/2022) [facility] Narrative* Problem Noted [...] Manning Routine gynecological examination 01/11/2011 01/15/2012 Overview: [facility], [facility] Levy Godinez 10/04/2010 07/25/2016 Acute gastritis without mention [...] of this encounter (statuses as of 01/26/2022) [facility] Narrative* Problem Noted [...] Manning Routine gynecological examination 01/11/2011 01/15/2012 Overview: [facility], [facility] Levy Godinez 10/04/2010 07/25/2016 Acute gastritis without mention [...] of this encounter (statuses as of 02/08/2022) [facility] Narrative* Problem Noted [...] Manning Routine gynecological examination 01/11/2011 01/15/2012 Overview: [facility], [facility] Levy Godinez 10/04/2010 07/25/2016 Acute gastritis without mention [...] of this encounter (statuses as of 02/17/2022) [facility] Narrative* Problem Noted [...] examination 01/11/2011 01/15/2012 [facility]: [facility] 07/25/2016 Acute gastritis without mention of [...] of this encounter (statuses as of 02/27/2022) [facility] Narrative* Problem Noted [...] Manning Routine gynecological examination 01/11/2011 01/15/2012 Overview: [facility], [facility] Levy Godinez 10/04/2010 07/25/2016 Acute gastritis without mention [...] of this encounter (statuses as of 03/01/2022) [facility] Narrative* Problem Noted [...] examination 01/11/2011 01/15/2012 Overview: [facility] Levy Godinez 10/04/2010 07/25/2016 Acute gastritis without mention [...] of this encounter (statuses as of 03/15/2022) [facility] illness Narrative* Problem Noted [...] Routine gynecological examination 01/11/2011 01/15/2012 Overview: [facility], [facility] Levy Godinez 10/04/2010 07/25/2016 Acute gastritis without mention [...] of this encounter (statuses as of 03/16/2022) [facility] History of Past illness Narrative* Problem Noted [...] Manning Routine gynecological examination 01/11/2011 01/15/2012 Overview: [facility], [facility] Levy Godinez 10/04/2010 07/25/2016 Acute gastritis without mention [...] of this encounter (statuses as of 03/20/2022) [facility] History of Past illness Narrative* Problem Noted [...] Manning Routine gynecological examination 01/11/2011 01/15/2012 Overview: [facility], [facility] Levy Godinez 10/04/2010 07/25/2016 Acute gastritis without mention [...] of this encounter (statuses as of 03/20/2022) [facility] History of Past illness Narrative* Problem Noted [...] examination 01/11/2011 01/15/2012 Overview: [facility] 10/04/2010 07/25/2016 Acute gastritis without mention [...] of this encounter (statuses as of 03/29/2022) [facility] History of Past illness Narrative* Problem Noted [...] examination 01/11/2011 01/15/2012 Overview: [facility] Levy Godinez 10/04/2010 07/25/2016 Acute gastritis without mention [...] of this encounter (statuses as of 03/31/2022) [facility] History of Past illness Narrative* Problem Noted [...] Manning Routine gynecological examination 01/11/2011 01/15/2012 Overview: [facility], [facility] Levy Godinez 10/04/2010 07/25/2016 Acute gastritis without mention [...] of this encounter (statuses as of 04/07/2022) [facility] History of Past illness Narrative* Problem Noted [...] Manning Routine gynecological examination 01/11/2011 01/15/2012 Overview: [facility], [facility] Levy Godinez 10/04/2010 07/25/2016 Acute gastritis without mention [...] of this encounter (statuses as of 05/01/2022) [facility] History of Past illness Narrative* Problem Noted [...] Manning Routine gynecological examination 01/11/2011 01/15/2012 Overview: [facility], [facility] 07/25/2016 Acute gastritis without mention of [...] of this encounter (statuses as of 05/03/2022) [facility] History of Past illness Narrative* Problem Noted [...] examination 01/11/2011 01/15/2012 Overview: [facility] Levy Kenneymagdi 10/04/2010 07/25/2016 Acute gastritis without mention [...] of this encounter (statuses as of 05/04/2022) [facility] History of Past illness Narrative* Problem Noted [...] examination 01/11/2011 01/15/2012 Overview: [facility] Levy Godinez 10/04/2010 07/25/2016 Acute gastritis without mention [...] of this encounter (statuses as of 05/19/2022) [facility] History of Past illness Narrative* Problem Noted [...] Manning Routine gynecological examination 01/11/2011 01/15/2012 Overview: [facility], [facility] Levy Godinez 10/04/2010 07/25/2016 Acute gastritis without mention [...] of this encounter (statuses as of 2022) [facility] History of Past illness Narrative* Problem Noted [...] Manning Routine gynecological examination 01/11/2011 01/15/2012 Overview: [facility], [facility] Levy Godinez 10/04/2010 07/25/2016 Acute gastritis without mention [...] of this encounter (statuses as of 05/23/2022) [facility] History of Past illness Narrative* Problem Noted [...] Manning Routine gynecological examination 01/11/2011 01/15/2012 Overview: [facility], [facility] 07/25/2016 Acute gastritis without mention of [...] of this encounter (statuses as of 05/26/2022) [facility] History of Past illness Narrative* Problem Noted [...] Manning Routine gynecological examination 01/11/2011 01/15/2012 Overview: [facility], [facility] Levy Godinez 10/04/2010 07/25/2016 Acute gastritis without mention [...] of this encounter (statuses as of 05/29/2022) [facility] History of Past illness Narrative* Problem Noted [...] Manning Routine gynecological examination 01/11/2011 01/15/2012 Overview: [facility], [facility] 10/04/2010 07/25/2016 Acute gastritis without mention [...] of this encounter (statuses as of 05/30/2022) [facility] History of Past illness Narrative* Problem Noted [...] examination 01/11/2011 01/15/2012 Overview: [facility] Levy Godinez 10/04/2010 07/25/2016 Acute gastritis without mention [...] of this encounter (statuses as of 05/31/2022) [facility] History of Past illness Narrative* Problem Noted [...] Manning Routine gynecological examination 01/11/2011 01/15/2012 Overview: [facility], [facility] Levy Godinez 10/04/2010 07/25/2016 Acute gastritis without mention [...] of this encounter (statuses as of 05/31/2022) [facility] History of Past illness Narrative* Problem Noted [...] Manning Routine gynecological examination 01/11/2011 01/15/2012 Overview: [facility], [facility] Levy Godinez 10/04/2010 07/25/2016 Acute gastritis without mention [...] of this encounter (statuses as of 06/05/2022) [facility] History of Past illness Narrative* Problem Noted [...] examination 01/11/2011 01/15/2012 Overview: [facility] 07/25/2016 Acute gastritis without mention of [...] of this encounter (statuses as of 06/05/2022) [facility] History of Past illness Narrative* Problem Noted [...] gynecological examination 01/11/2011 01/15/2012 Overview: [facility] [place], [facility] 07/25/2016 Acute gastritis without mention of [...] of this encounter (statuses as of 06/07/2022) [facility] History of Past illness Narrative* Problem Noted [...] examination 01/11/2011 01/15/2012 Overview: [facility] Levy Godinez 10/04/2010 07/25/2016 Acute gastritis without mention [...] of this encounter (statuses as of 06/09/2022) [facility] History of Past illness Narrative* Problem Noted [...] Routine gynecological examination 01/11/2011 01/15/2012 Overview: [facility], [facility] Levy Godinez 10/04/2010 07/25/2016 Acute gastritis without mention [...] of this encounter (statuses as of 06/09/2022) [facility] History of Past illness Narrative* Problem Noted [...] Manning Routine gynecological examination 01/11/2011 01/15/2012 Overview: [facility], [facility] Levy Godinez 10/04/2010 07/25/2016 Acute gastritis without mention [...] of this encounter (statuses as of 06/10/2022) [facility] History of Past illness Narrative* Problem Noted [...] Routine gynecological examination 01/11/2011 01/15/2012 Overview: [facility], [facility] Levy Kenenytuyetver 10/04/2010 07/25/2016 Acute gastritis without mention of [...] of this encounter (statuses as of 06/12/2022) [facility] History of Past illness Narrative* Problem Noted [...] Manning Routine gynecological examination 01/11/2011 01/15/2012 Overview: [facility], [facility] Levy Godinez 10/04/2010 07/25/2016 Acute gastritis without mention [...] of this encounter (statuses as of 06/29/2022) [facility] History of Past illness Narrative* Problem Noted [...] examination 01/11/2011 01/15/2012 Overview: [facility]2010 07/25/2016 Acute gastritis without mention of [...] of this encounter (statuses as of 06/30/2022) [facility] History of Past illness Narrative* Problem Noted [...] Routine gynecological examination 01/11/2011 01/15/2012 Overview: [facility], [facility] Levy Godinez 10/04/2010 07/25/2016 Acute gastritis without mention [...] of this encounter (statuses as of 07/03/2022) [facility] History of Past illness Narrative* Problem Noted [...] Routine gynecological examination 01/11/2011 01/15/2012 Overview: [facility], [facility] Levy Godinez 10/04/2010 07/25/2016 Acute gastritis without mention [...] of this encounter (statuses as of 07/21/2022) [facility] History of Past illness Narrative* Problem Noted [...] Manning Routine gynecological examination 01/11/2011 01/15/2012 Overview: [facility], [facility] Levy Kenneyrosalio 10/04/2010 07/25/2016 Acute gastritis without mention [...] of this encounter (statuses as of 07/21/2022) [facility] History of Past illness Narrative* Problem Noted [...] Manning Routine gynecological examination 01/11/2011 01/15/2012 Overview: [facility], [facility] 07/25/2016 Acute gastritis without mention of [...] of this encounter (statuses as of 08/23/2022) [facility] History of Past illness Narrative* Problem Noted [...] gynecological examination 01/11/2011 01/15/2012 Overview: [facility] [place], [facility] Acute gastritis [...] of this encounter (statuses as of 09/07/2022) [facility] History of Past illness Narrative* Problem Noted [...] examination 01/11/2011 01/15/2012 Overview: [facility] Levy Godinez 10/04/2010 07/25/2016 Acute gastritis without mention [...] of this encounter (statuses as of 09/08/2022) [facility] History of Past illness Narrative* Problem Noted [...] Routine gynecological examination 01/11/2011 01/15/2012 Overview: [facility], [facility] Levy Hayrosalio 10/04/2010 07/25/2016 Acute gastritis without mention of [...] of this encounter (statuses as of 09/08/2022) [facility] History of Past illness Narrative* Problem Noted [...] examination 01/11/2011 01/15/2012 Overview: [facility] Levy Godinez 10/04/2010 07/25/2016 Acute gastritis without mention [...] of this encounter (statuses as of 09/26/2022) [facility] History of Past illness Narrative* Problem Noted [...] Manning Routine gynecological examination 01/11/2011 01/15/2012 Overview: [facility], [facility] Levy Godinez 10/04/2010 07/25/2016 Acute gastritis without mention of hemorrhage 05/04/1907/01/2010 Diarrhea 05/04/2010 07/01/2010 Bacterial infection due to [...] of this encounter (statuses as of 10/02/2022) [facility] History of Past illness Narrative* Problem Noted [...] examination 01/11/2011 01/15/2012 Overview: [facility] Levy Kenneymagdi 10/04/2010 07/25/2016 Acute gastritis without mention of hemorrhage 05/04/1907/01/2010 Diarrhea 05/04/2010 07/01/2010 Bacterial infection due to [...] of this encounter (statuses as of 10/17/2022) [facility] Past illness Narrative* Problem Noted [...] examination 01/11/2011 01/15/2012 Overview: [facility] Levy Godinez 10/04/2010 07/25/2016 Acute gastritis without mention [...] of this encounter (statuses as of 10/19/2022) [facility] History of Past illness Narrative* Problem Noted [...] Routine gynecological examination 01/11/2011 01/15/2012 Overview: [facility], [facility] Levy Godinez 10/04/2010 07/25/2016 Acute gastritis without mention [...] of this encounter (statuses as of 12/15/2022) [facility] History of Past illness Narrative* Problem Noted [...] Routine gynecological examination 01/11/2011 01/15/2012 Overview: [facility], [facility] Levy Godinez 10/04/2010 07/25/2016 Acute gastritis without mention [...] of this encounter (statuses as of 12/19/2022) [facility] History of Past illness Narrative* Problem Noted [...] Manning Routine gynecological examination 01/11/2011 01/15/2012 Overview: [facility], [facility] 07/25/2016 Acute gastritis without mention of [...] of this encounter (statuses as of 04/13/2023) [facility] History of Past illness Narrative* Problem Noted [...] examination 01/11/2011 01/15/2012 [facility]: [facility] 07/25/2016 Acute gastritis [...] of this encounter (statuses as of 2023) [facility] History of Past illness Narrative* Problem Noted [...] examination 01/11/2011 01/15/2012 Overview: [facility] Levy Godinez 10/04/2010 07/25/2016 Acute gastritis without mention [...] of this encounter (statuses as of 05/29/2023) [facility] History of Past illness Narrative* Problem Noted [...] examination 01/11/2011 01/15/2012 Overview: [facility] Levy Godinez 10/04/2010 07/25/2016 Acute gastritis without mention [...] of this encounter (statuses as of 05/29/2023) [facility] History of Past illness Narrative* Problem Noted [...] Manning Routine gynecological examination 01/11/2011 01/15/2012 Overview: [facility], [facility] Levy Godinez 10/04/2010 07/25/2016 Acute gastritis without mention [...] of this encounter (statuses as of 06/05/2023) [facility] History of Past illness Narrative* Problem Noted [...] Manning Routine gynecological examination 01/11/2011 01/15/2012 Overview: [facility], [facility] 10/04/2010 07/25/2016 Acute gastritis without mention [...] of this encounter (statuses as of 06/13/2023) [facility] Ajay Ruiz [facility] Note Date/Time July 23, 2024 1:00p m [facility] Medical Records Department [address] [place] [address] Anesthesia Postop Eval I 07/23/24 [id number] MR#: [id number] Acct: [id number] Name: CLARISA MENDES Rep #:[id number] : 1970 54 From: Ajay CLIFTON PCP: Dr. Tang Olguin, DO Status:RE G [facility] Y Race: C Location: [place] [address] Anesthesia: Postop Eval I Current Vital Signs Temperature: 97.4 F Pulse Rate: 67 Blood Pressure: 103/64 Respiratory Rate: 16 Pulse Ox: 97 Assessment Airway patent: Yes Spontaneous unlabored respirations: Yes nausea: No Vomiting: No Anesthesia Complication: No Fluid Hydration Crystalloid volume administer (ml): 800 Total IV fluid infused: 800 Progress Note Anesthesia document: Postop Eval 1 completed: Yes 07/23/24 1300 <Electronically signed by Ajay Ruiz CRNA> Date _ Ajay Ruiz CRNA Cosigner Signature: Date CC: ~ Signed [facility] Work Phone: Evaluation noteNo assessment information available [facility] Work Phone: Evaluation note* Diagnosis Fatigue, unspecified type- Primary Iron deficiency Iron deficiency anemia, unspecified Borderline abnormal thyroid function test Nonspecific abnormal results of thyroid function study Perimenopausal disorder Unspecified menopausal and postmenopausal disorder Situational insomnia Transient disorder of initiating or maintaining sleep [facility] Diagnosis Itching- Primary Unspecified pruritic disorder [facility] Diagnosis Close exposure to COVID-19 virus- Primary [facility] Diagnosis Onset Date Resolution Status Upper abdominal pain acute Depression chronic Encounter for routine gynecological examination noneactive Depression chronic Abdominal bloating acute Change in bowel function acu te Early satiety acute Elevated alkaline phosphatase level acute Epigastric pain acute RLQ abdominal pain acute [facility] Work Phone: Evaluation note* Diagnosis Dysuria- Primary Muscle spasm of back Other symptoms referable to back Fatigue, unspecified type Obesity, Class III, BMI 40-49.9 (morbid obesity) (HCC) Morbid obesity Perimenopausal disorder Unspecified menopausal and postmenopausal disorder Generalized abdominal pain Abdominal pain, generalized [facility] Diagnosis Acute cough- Primary Pleuritic pain Painful respiration Vaginal yeast infection Candidiasis of vulva and vagina [facility] Diagnosis Onset Date Resolution Status Upper abdominal pain acute Depression chronic Encounter for routine gynecological examination noneactive Depression chronic Abdominal bloating acute Change in bowel function acu te Early satiety acute Elevated alkaline phosphatase level acute Epigastric pain acute RLQ abdominal pain acute Exocrine pancreatic insufficiency acute Gastritis acute Iron deficiency anemia acute Acute maxillary sinusitis, unspecified acute Contact with and (suspected) exposure to other viral communicable diseases acute Acute maxillary sinusitis, unspecified acute Contact with and (suspected) exposure to other viral communicable diseases acute [facility] Work Phone: Evaluation note* Diagnosis Subacute cough- Primary Cough Acute bronchitis, unspecified organism Multiple joint pain Pain in joint, multiple sites CRP elevated Elevated C-reactive protein (CRP) Pancreatic insufficiency Other specified disease of pancreas Hiatal hernia Diaphragmatic hernia without mention of obstruction or gangrene Way's esophagus with dysplasia Way's esophagus [facility] Diagnosis Elevated BP without diagnosis of hypertension- Primary Restless legs Restless legs syndrome (RLS) Pleuritic pain Painful respiration Fatigue, unspecified type Polypharmacy Encounter for long-term (current) use of other medications Acute cough Cough Chronic cough Cough [facility]* Diagnosis Restless legs Restless legs syndrome (RLS) documented in this encounter [facility]* Diagnosis Multiple joint pain- Primary Pain in joint, multiple sites CRP elevated Elevated C-reactive protein (CRP) Fibromyalgia Mylagia and myositis, unspecified [facility]* Diagnosis Need for influenza vaccination- Primary Need for prophylactic vaccination and inoculation against influenza Left arm pain Pain in limb Left hand pain Pain in limb Paresthesia Disturbance of skin sensation Other chest pain Subacute cough Cough Acute bronchitis, unspecified organism Medication management Encounter for long-term (current) use of other medications [facility] this encounter [facility]* Diagnosis Carpal tunnel syndrome, left- Primary Carpal tunnel syndrome Carpal tunnel syndrome, left Carpal tunnel syndrome documented in this encounter [facility] note* Diagnosis Weight disorder- Primary Other symptoms concerning nutrition, metabolism, and development Abnormal weight gain Preop testing Preoperative examination, unspecified Morbid obesity with BMI of 40.0-44.9, adult (HCC) Morbid obesity Carpal tunnel syndrome, left Carpal tunnel syndrome documented in this encounter [facility] note* Diagnosis Obesity, Class III, BMI 40-49.9 (morbid obesity) (HCC)- Primary Morbid obesity Way's esophagus without dysplasia Way's esophagus Carpal tunnel syndrome, left Carpal tunnel syndrome documented in this encounter [facility] note* Diagnosis Carpal tunnel syndrome of left wrist- Primary Carpal tunnel syndrome Shoulder impingement Other affections of shoulder region, not elsewhere classified Chronic left shoulder pain Pain in joint, shoulder region Carpal tunnel syndrome, left Carpal tunnel syndrome documented in this encounter [facility] note* Diagnosis Restless legs Restless legs syndrome (RLS) Carpal tunnel syndrome, left Carpal tunnel syndrome documented in this encounter [facility] note* Diagnosis No-show for appointment- Primary documented in this encounter [facility] note* Diagnosis Encounter for screening mammogram for breast cancer documented in this encounter [facility] note* Diagnosis Morbid obesity (HCC)- Primary Morbid obesity documented in this encounter [facility] note* Diagnosis Onset Date Resolution Status Acute maxillary sinusitis, unspecified acute HTN (hypertension) chronic Breast pain acute Way's esophagus chronic GERD (gastroesophageal reflux disease) chronic [facility] Work Phone: Evaluation note* Diagnosis Pre-operative examination- Primary Preoperative examination, [...] (HCC) Morbid obesity documented in this encounter [facility] note* Diagnosis Morbid obesity with BMI of 45.0-49.9, adult (HCC)- Primary Morbid obesity NNEKA (obstructive sleep apnea) Obstructive sleep apnea (adult) (pediatric) Gastroesophageal reflux disease, unspecified whether esophagitis present VTE (venous thromboembolism) Embolism and thrombosis of unspecified site Essential (primary) hypertension Unspecified essential hypertension Morbid obesity (HCC) Morbid obesity [facility] this encounter [facility]* Diagnosis S/P gastric bypass- Primary Bariatric surgery status Post-operative state Other postprocedural status documented in this encounter [facility] note* Diagnosis Gastroesophageal reflux disease, unspecified whether esophagitis present- Primary documented in this encounter [facility] note* Diagnosis Bariatric surgery status- Primary documented in this encounter [facility] note* Diagnosis Bariatric surgery status- Primary Dietary counseling and surveillance Dietary surveillance and counseling Morbid obesity (HCC) Morbid obesity documented in this encounter [facility] note* Diagnosis Class 3 obesity (HCC)- Primary Dietary counseling and surveillance Dietary surveillance and counseling Impaired intestinal absorption Unspecified intestinal malabsorption S/P gastric bypass Bariatric surgery status documented in this encounter [facility] note* Diagnosis History of Mitchel-en-Y gastric bypass- Primary Bariatric surgery status [facility] Diagnosis Environmental allergies Other allergy, other than to medicinal agents documented [facility] this [facility]* Diagnosis Environmental allergies Other allergy, other than to medicinal agents documented in this encounter [facility] note* Diagnosis [facility] Diagnosis NO SHOW- Primary documented in this encounter [facility] note* Diagnosis Environmental allergies Other allergy, other than to medicinal agents documented in this encounter [facility] note* Diagnosis Fatigue, unspecified type- Primary Nausea Nausea alone RUQ abdominal pain Abdominal pain, right upper quadrant Common bile duct dilation Other specified disorders of biliary tract History of Mitchel-en-Y gastric bypass Bariatric surgery status documented in this encounter [facility] note* Diagnosis Onset Date Resolution Status Dilated cbd, acquired acute Exocrine pancreatic insufficiency acute Gastritis acute Iron deficiency anemia acute [facility] Work Phone: Evaluation note* Diagnosis Perimenopausal disorder Unspecified menopausal and postmenopausal disorder documented in this encounter [facility] note* Diagnosis Environmental allergies Other allergy, other than to medicinal agents documented in this encounter [facility] note* Diagnosis Upper abdominal pain, unspecified Bariatric surgery status Abnormal findings on diagnostic imaging of other parts of digestive tract documented in this encounter [facility] Work Phone: Evaluation note* Diagnosis Foot pain, right- Primary Pain in limb [facility] this [facility]* Diagnosis Onset Date Resolution Status Way's esophagus chronic Dilated cbd, acquired chroni c Exocrine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 Last Taken Unknown] valacyclovir 500 mg tablet 500 mg PO DAILY 04/20/23 [History Last Taken Unknown] Allergy/AdvReac Type Severity Reaction Status Date / Time hydromorphone HCl Allergy Chest Verified 04/26/23 09:46 [From Dilaudid] tightness prednisone Allergy Itching Verified 04/26/23 09:46 warfarin sodium Allergy Chest Verified 04/26/23 09:46 [From Coumadin] tightness milnacipran HCl AdvReac Other Verified 04/26/23 09:46 [From Savella] pregabalin [From Lyrica] AdvReac Rash Verified 04/26/23 09:46 rivaroxaban [From Xarelto] AdvReac Nausea Verified 04/26/23 09:46 Family History Mother Hypertension Hyperlipidemia alcohol/drug addiction Allergies Father alcohol/drug addiction Sister Thyroid disorder Fibromyalgia Blindness Grandmother Emphysema lung Heart disease Grandfather Emphysema lung Brother alcohol/drug addiction Surgical History (Updated 04/20/23 @ 10:21 by Maritza Stacy) History of bilateral breast reduction surgery History of bilateral salpingectomy History of carpal tunnel release History of esophagogastroduodenoscopy (EGD) History of laparoscopic cholecystectomy History of laparoscopic-assisted vaginal hysterectomy History of nasal surgery History of tubal ligation History of weight loss surgery Hx of colonoscopy Hx of tonsillectomy S/P foot surgery, left Social History 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 Smoking Status: Never smoker alcohol intake: former what type of physical activity do you participate in: walking seatbelt use: always do you feel safe at home: Yes additional social history: [place] - [place] Vital Signs Vital Signs Vital Signs: 04/26/23 09:46 04/26/23 09:53 Temperature 97.3 F L Temperature Source Temporal Pulse Rate 60 Respiratory Rate 16 Respiratory Pattern Normal Blood Pressure 104/72 Blood Pressure Mean 82 Blood Pressure Source Monitor Blood Pressure Position Semi-Fowlers Blood Pressure Location Left Arm Pulse Ox 100 Oxygen Delivery Method Room Air Weight Weight: 191 lb Body Mass Index (BMI) 34.9 04/26/23 1035 <Electronically signed by Faraz Cortez DO> Cosigner Signature (if applicable): CC: Dr. Tang Olguin DO; Faraz Cortez, ~ Signed [facility] Work Phone: [facility] Work Phone: [facility] Work Phone: [facility] Work Phone: Hospital Discharge instructions Additional Instructions Cardiac work-up negative. Follow-up with her doctor discussion of your medications. Return if any worsening symptoms.[facility] Work Phone: Hospital Discharge instructions Additional Instructions Please use the nausea medicine. Maintain hydration. Need to follow-up with your surgeon at the [facility] Work Phone: Reason for referral (narrative)* Outpatient Procedure (Routine) - Pending Review Specialty Diagnoses / Procedures Referred By Alvina ross [facility] Diagnoses Acute cough Pleuritic pain Procedures ECG COMPLETE ECG ROUTINE ECG W/LEAST 12 LDS W/I&R Silva Sweeney APRN.[employer]IDENCE [employer] DIRECTOR [address] [place] [address] [facility] [place] [address] [place] [address] Referral ID Status Reason Start Date Expiration Date Visits Requested Visits Authorized [id number] Pending Review Auto-Generat ed Referral 12/05/2021 12/05/2022 1 1 [facility] for referral (narrative)* Outpatient Procedure (Routine) - Closed Specialty Diagnoses / Procedures Referred By Contac t Referred To [facility] Diagnoses Other chest pain Procedures ECG COMPLETE ECG ROUTINE ECG W/LEAST 12 LDS W/I&R Tang Olguin DO [address] [place] [address] [facility] [address] [address] Referral ID Status Reason Start Date Expiration Date V isits Requested Visits Authorized [id number] Closed Auto-Generate d Referral 02/17/2022 02/17/2023 1 1 * Consult, Test, Treat (Routine) - Authorized Specialty Diagnoses / Procedures Referred By Contac t Referred To Contact Orthopedics Diagnoses Left arm pain Left hand pain Paresthesia Procedures CONSULT TO ORTHOPAEDICS OFFICE/OUTPATIENT [facility] MDM 60-74 MINUTES Tang Olguin DO [address] [place] [address] Referral ID Status Reason Start Date Expiration Date Visits Requested Visits Authorized [id number] Authorized PCP Requested Referral 02/17/2022 02/17/2023 1 1 * Diagnostic Procedure Only (Routine) - Closed Specialty Diagnoses / Procedures Referred By Contac t Referred To Contact XR IMAGING Diagnoses Left arm pain Left hand pain Paresthesia Procedures XR CERV OTHER 4V AP/LAT/OBL RADEX SPINE CERVICAL 4 OR 5 VIEWS Tang Olguin DO [address] [place] [address] Xr Imaging Referral ID Status Reason Start Date Expiration Date V isits Requested Visits Authorized [id number] Closed Auto-Generate d Referral 02/17/2022 03/19/2023 1 1 [facility] for referral (narrative)* Diagnostic Procedure Only (Routine) - Pending Review Specialty Diagnoses / Procedures Referred By Contac t Referred To Contact BR IM[facility] Diagnoses Encounter for screening mammogram for breast cancer Procedures KAVIN SCREENING SCREENING MAMMOGRAPHY BI 2-VIEW BREAST INC CAD Tang Olguin DO [address] [place] [address] [facility] [address] [place] [address] Referral ID Status Reason Start Date Expiration Date Visits Requested Visits Authorized [id number] Pending Review Auto-Generat ed Referral 04/26/2022 05/26/2023 1 1 [facility] for referral (narrative)* Diagnostic Procedure Only (Urgent) - Closed Specialty Diagnoses / Procedures Referred By Contac t Referred To Contact XR IMAGING Diagnoses Foot pain, right Procedures XR FOOT GENERAL 3V AP/LAT/OBL RIGHT RADEX FOOT COMPLETE MINIMUM 3 VIEWS [facility] [address] [place] [address] [place] [address] Referral ID Status Reason Start Date Expiration Date V isits Requested Visits Authorized [id number] Closed Auto-Generate d Referral 04/13/2023 05/12/2024 1 1 [facility] for referral (narrative)* Diagnostic Procedure Only (Urgent) - Closed Specialty Diagnoses / Procedures Referred By Contac t Referred To Contact XR IMAGING Diagnoses Foot pain, right Procedures XR FOOT GENERAL 3V AP/LAT/OBL RIGHT RADEX FOOT COMPLETE MINIMUM 3 VIEWS [facility] [address] [place] [address] [place] [address] Referral ID Status Reason Start Date Expiration Date V isits Requested Visits Authorized [id number] Closed Auto-Generate d Referral 04/13/2023 05/12/2024 1 1 [facility] for referral (narrative)* Diagnostic Procedure Only (Routine) - Closed Specialty Diagnoses / Procedures Referred By Contac t Referred To Contact XR IMAGING Diagnoses Left arm pain Left hand pain Paresthesia Procedures XR CERV OTHER 4V AP/LAT/OBL RADEX SPINE CERVICAL 4 OR 5 VIEWS Tang Olguin, DO [address] [place] [address] [place] [address] Referral ID Status Reason Start Date Expiration Date V isits Requested Visits Authorized [id number] Closed Auto-Generate d Referral 02/17/2022 03/19/2023 1 1 [facility] for referral (narrative)* Diagnostic Procedure Only (Routine) - Closed Specialty Diagnoses / Procedures Referred By Contac t Referred To Contact XR IMAGING Diagnoses Left hip pain Acute left-sided low back pain without sciatica Procedures XR HIP 2V AP/LAT LEFT (AK,FL,ME) RADEX HIP UNILATERAL WITH PELVIS 2-3 VIEWS Tang Olguin, DO [address] [place] [address] [place] [address] Referral ID Status Reason Start Date Expiration Date V isits Requested Visits Authorized [id number] Closed Auto-Generate d Referral 03/18/2021 04/17/2022 1 1 * Diagnostic Procedure Only (Routine) - Closed Specialty Diagnoses / Procedures Referred By Contac t Referred To Contact XR IMAGING Diagnoses Left hip pain Acute left-sided low back pain without sciatica Procedures XR LUMBAR GENERAL 3V AP/LAT/L5-S1 X-RAY L-S SPINE AP/LATERAL Tang Olguin, DO [address] [place] [address] [place] [address] Referral ID Status Reason Start Date Expiration Date V isits Requested Visits Authorized [id number] Closed Auto-Generate d Referral 03/18/2021 04/17/2022 1 1 * Diagnostic Procedure Only (Routine) - Closed Specialty Diagnoses / Procedures Referred By Alvina t Referred To Contact XR IMAGING Diagnoses Left hip pain Acute left-sided low back pain without sciatica Procedures XR HIP GENERAL 3V PELV/AP/LAT RIGHT RADEX HIP UNILATERAL WITH PELVIS 2-3 VIEWS Tnag Olguin, DO [address] [place] [address] [place] [address] Referral ID Status Reason Start Date Expiration Date V isits Requested Visits Authorized [id number] Closed Auto-Generate d Referral 03/18/2021 04/17/2022 1 1 [facility] for referral (narrative)* Diagnostic Procedure Only (Routine) - New Request Specialty Diagnoses / Procedures Referred By Alvina ross Referred To Contact [facility] IM[facility] Diagnoses Encounter for screening mammogram for breast cancer Procedures KAVIN SCREENING W SANDY SCREENING DIGITAL BREAST TOMOSYNTHESIS BI SCREENING MAMMOGRAPHY BI 2-VIEW BREAST INC CAD Tang Olguin, DO [address] [place] [address] [facility] [address] [place] [address] Referral ID Status Reason Start Date Expiration Date Visits Requested Visits Authorized [id number] New Request Auto-Generat ed Referral 04/04/2025 1 1 [facility] for referral (narrative)No reason for referral information [facility] Work Phone: Reason for visit Narrative* Diagnostic Procedure Only (Urgent) - Closed Specialty Diagnoses / Procedures Referred By Alvina t Referred To Contact XR IMAGING Diagnoses Foot pain, right Procedures XR FOOT GENERAL 3V AP/LAT/OBL RIGHT RADEX FOOT COMPLETE MINIMUM 3 VIEWS [facility] [address] [place] [address] [place] [address] Referral ID Status Reason Start Date Expiration Date V isits Requested Visits Authorized [id number] Closed Auto-Generate d Referral 04/13/2023 05/12/2024 1 1 [facility] for visit Narrative* Diagnostic Procedure Only (Routine) - Closed Specialty Diagnoses / Procedures Referred By Contac t Referred To Contact XR IMAGING Diagnoses Left arm pain Left hand pain Paresthesia Procedures XR CERV OTHER 4V AP/LAT/OBL RADEX SPINE CERVICAL 4 OR 5 VIEWS Tang Olguin, DO [address] [place] [address] [place] [address] Referral ID Status Reason Start Date Expiration Date V isits Requested Visits Authorized [id number] Closed Auto-Generate d Referral 02/17/2022 03/19/2023 1 1 [facility] for visit Narrative* Diagnostic Procedure Only (Routine) - Closed Specialty Diagnoses / Procedures Referred By Contac t Referred To Contact XR IMAGING Diagnoses Left hip pain Acute left-sided low back pain without sciatica Procedures XR LUMBAR GENERAL 3V AP/LAT/L5-S1 X-RAY L-S SPINE AP/LATERAL Tang Olguin, DO [address] [place] [address] [place] [address] Referral ID Status Reason Start Date Expiration Date V isits Requested Visits Authorized [id number] Closed Auto-Generate d Referral 03/18/2021 04/17/2022 1 1 [facility] for visit Narrative* Diagnostic Procedure Only (Urgent) - Closed Specialty Diagnoses / Procedures Referred By Contac t Referred To Contact XR IMAGING Diagnoses Right foot pain Contusion of right foot, initial encounter Procedures XR FOOT GENERAL 3V AP/LAT/OBL RIGHT RADEX FOOT COMPLETE MINIMUM 3 VIEWS Michael Degroot [address] [place] [address] Phone: tel: fax: [place] [address] Referral ID Status Reason Start Date Expiration Date V isits Requested Visits Authorized [id number] Closed Auto-Generate d Referral 07/11/2024 08/10/2025 1 1 [facility] Summary Purpose Family History No Family History Records Found Relationship Condition Age at Onset Recorded Date/T isabella mother Hypertension Unknown Hyperlipidemia Unknown Unknown Allergy Unknown father Unknown sister Disorder of thyroid Unknown Fibromyalgia Unknown Blindness Unknown grandmother Pulmonary emphysema Unknown Cardiac disease Unknown grandfather Pulmonary emphysema Unknown brother Unknown Advance Directives No Advanced Directives Records Found Advance Directive Response Recorded Date/ Time Advance Directives No March 18, 2017 9:11am Living Will No December 21 8:08am Power of Senior Government Program Analyst No December 21, 2020 8:08am Advance Directive Response Recorded Date/ Time Advance Directives No March 18, 2017 9:11am Living Will No June 26, 2021 5:22pm Power of Senior Government Program Analyst No June 26 5:22pm Documents on File Type Date Recorded 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 Advance Directive(s) 10/23/2019 8:46 AM Advance Directive(s) 05/01/2019 8:08 AM Advance Directive(s) 10/27/2018 3:58 PM Advance Directive(s) 11/23/2017 7:41 AM Advance Directive Response Recorded Date/ Time Advance Directives No March 18, 2017 9:11am Living Will No November 10 1:44pm Power of Senior Government Program Analyst No November 10, 2021 1:44pm Advance Directive Response Recorded Date/ Time Advance Directives No March 18, 2017 9:11am Living Will No December 08, 2021 1:09pm Power of Senior Government Program Analyst No November 1:09pm Advance Directive Response Recorded Date/ Time Advance Directives No March 18, 2017 8:11am Living Will No April 07 4:33pm Power of Senior Government Program Analyst No April 07, 2022 4:33pm Advance Directive Response Recorded Date/ Time Advance Directives No April 10:38am Living Will No April 25, 023 10:38am Power of Senior Government Program Analyst No April 25, 2022 10:38am Advance Directive Response Recorded Date/ Time Advance Directives No April 11:38am Living Will No July 25, 2022 1 1:09am Power of Senior Government Program Analyst No July 25, 2022 11:09am Advance Directive Response Recorded Date/ Time Advance Directives No April 11:38am Living Will No October 02, 2022 1:19pm Power of Senior Government Program Analyst No October 02 1:19pm Advance Directive Response Recorded Date/ Time Advance Directives No April 11:38am Living Will No December 11 10:37am Power of Senior Government Program Analyst No December 11 023 10:37am Advance Directive Response Recorded Date/ Time Advance Directives No April 10:38am Living Will No April 20 10:22am Power of Senior Government Program Analyst No April 20, 2023 10:22am Advance Directive Response Recorded Date/ Time Advance Directives No April 11:38am Living Will No May 29, 2023 10:44am Power of Senior Government Program Analyst No May 28 10:44am Advance Directive Response Recorded Date/ Time Advance Directives No January 9:44am Advance Directive Response Recorded Date/ Time Do you have a Healthcare Power of Senior Government Program Analyst? No July 21, 2024 1:15pm Advance Directives No January 9:44am Procedure Findings Note HNO ID: [id number] Author: Virgie Altamirano Service: ? Author Type: Anesthesiologist Type: [...] (more content not included)... Note HNO ID: [id number] Author: Arcelia Bolanos Service: ? Author Type: Nurse Learning Analyst Type: Anesthesia Procedure Notes Filed: 10/28/2019 9:38 AM Note Text: ANESTHESIOLOGY PROCEDURE NOTE Airway General Information Procedure Start Time/Medication Administration: 10/28/2019 9:16 AM Patient location during procedure: OR Patient identity confirmed: arm band and patient Staffing Anesthesiologist: Herb Altamirano CRYSTAL SYRUP MAKER: Noemy Bolanos Performed by: CRYSTAL SYRUP MAKER Indications and Patient Condition Preoxygenated: yes Patient [...] (more content not included)... Note HNO ID: [id number] Author: Virgie Altamirano Service: ? Author Type: Anesthesiologist Type: [...] popliteal Approach: pop (more content not included)... 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 Consult E-ORDER EPIGASTRIC PAIN, BLOATING early satiety abd bloating pain Reason for Visit Upper abdominal pain Depression Encounter for routine gynecological examination Depression Abdominal bloating Change in bowel function Early satiety Elevated alkaline phosphatase level Epigastric pain RLQ abdominal pain Chief Complaint 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) 4 WK FU Consult E-ORDER EPIGASTRIC PAIN, BLOATING early satiety abd bloating pain 2 WK FU COVID TEST COUGH, SORE THROAT, FEVER, NO VOICE Reason for Visit Upper abdominal pain Depression Encounter for routine gynecological examination Depression Abdominal bloating Change in bowel function Early satiety Elevated alkaline phosphatase level Epigastric pain RLQ abdominal pain Exocrine pancreatic insufficiency Gastritis Iron deficiency anemia Acute maxillary sinusitis, unspecified Contact with and (suspected) exposure to other viral communicable diseases Acute maxillary sinusitis, unspecified Contact with and (suspected) exposure to other viral communicable diseases Chief Complaint 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 face feels different Reason for Visit Upper abdominal pain Depression Encounter for routine gynecological examination Depression Abdominal bloating Change in bowel function Early satiety Elevated alkaline phosphatase level Epigastric pain RLQ abdominal pain Exocrine pancreatic insufficiency Gastritis Iron deficiency anemia Acute maxillary sinusitis, unspecified Contact with and (suspected) exposure to other viral communicable diseases Acute maxillary sinusitis, unspecified Contact with and (suspected) exposure to other viral communicable diseases Chief Complaint resp illness. face f eels different upper extremity CHEST PAIN Chief Complaint upper extremity CHEST PAIN SORE THROAT, COUGH, RUNNY NOSE BREAST PAIN, BURNING UNDER ARMPIT RT BREAST PAIN 2 MO FU Reason for Visit Acute maxillary sinu sitis, unspecified HTN (hypertension) Breast pain Way's esophagus GERD (gastroesophageal reflux disease) Chief Complaint CHEST PAIN SORE THROAT, COUGH, RUNNY NOSE BREAST PAIN, BURNING UNDER ARMPIT RT BREAST PAIN 2 MO FU FLANK Reason for Visit Acute maxillary sinu sitis, unspecified HTN (hypertension) Breast pain Way's esophagus GERD (gastroesophageal reflux disease) Chief Complaint FLANK ABD PAIN 5 MO FU E-ORDER DILATED CBD Reason for Visit Dilated cbd, acquire d Exocrine pancreatic insufficiency Gastritis Iron deficiency anemia Chief Complaint ABD PAIN 5 MO FU E-ORDER DILATED CBD chest pain Reason for Visit Dilated cbd, acquire d Exocrine pancreatic insufficiency Gastritis Iron deficiency anemia Chief Complaint LEFT EAR PAIN/SORE T HROAT/COUGH 5 MO FU Reason for Visit Way's esophagus Dilated cbd, acquired Exocrine pancreatic insufficiency Gastritis Iron deficiency anemia Chief Complaint 5 MO FU SORE THROAT, CHILLS CP Reason for Visit Way's esophagus Dilated cbd, acquired Exocrine pancreatic insufficiency Gastritis Iron deficiency anemia Acute pharyngitis Chief Complaint Admit Date CONCERN FOR SINUS INFECTION / UTI Decemb er 2023 10:20am SORE THROAT, COUGH May 26, 2024 4:1 1pm cough May 26, 2024 4:2 8pm Reason for Visit Admit Date Acute sinusitis, unspecified February 262023 10:20am Contact with or exposure to other viral diseases February 27, 2024 10:20am Mid back pain on right side February 10:20am URI (upper respiratory infection) May 26, 2024 4:11pm Chief Complaint Admit Date SORE THROAT, COUGH May 26, 2024 4:1 1pm cough May 26, 2024 4:2 8pm HOROMONE THERAPY June 06, 2024 9:3 4am R FOOT/PINKY AND RING TOE INJURY June 112024 4:45pm foot injury- RIGHT July 02, 2024 4:4 7pm fOLLOW UP July 04, 2024 8:0 1am Reason for Visit Admit Date URI (upper respiratory infection) May 26, 2024 4:11pm Chronic post-traumatic stress disorder ( PTSD) June 06, 2024 9:34am Hot flashes June 06, 2024 9:3 4am Lichen sclerosus June 06, 2024 9:3 4am Personal history of other venous thrombo sis and embolism June 06, 2024 9:34am Vaginal atrophy June 06, 2024 9:3 4am Contusion of right lesser to e(s) without damage to nail, initial encounter July 02, 2024 4:45pm Way's esophagus July 04, 2024 8:0 1am Dilated cbd, acquired July 04, 2024 8 :01am Exocrine pancreatic insufficiency July 04, 2024 8:01am Gastritis July 04, 2024 8:0 1am Iron deficiency anemia July 04, 2024 8:01am Reason for Visit Admit Date URI (upper respiratory infection) May 26, 2024 4:11pm Chronic post-traumatic stress disorder ( PTSD) June 06, 2024 9:34am Hot flashes June 06, 2024 9:3 4am Lichen sclerosus June 06, 2024 9:3 4am Personal history of other venous thrombo sis and embolism June 06, 2024 9:34am Vaginal atrophy June 06, 2024 9:3 4am Contusion of right lesser to e(s) without damage to nail, initial encounter July 02, 2024 4:45pm Way's esophagus July 04, 2024 8:0 1am Dilated cbd, acquired July 04, 2024 8 :01am Exocrine pancreatic insufficiency July 04, 2024 8:01am Gastritis July 04, 2024 8:0 1am Iron deficiency anemia July 04, 2024 8:01am Diarrhea July 23, 2024 10:15 am Early satiety July 23, 2024 10:[address]'s esophagus July 23, 2024 10:15 am Exocrine pancreatic insufficiency July 232024 10:15am Iron deficiency anemia July 23, 2024 10 :15am Chief Complaint Admit Date SORE THROAT, COUGH May 26, 2024 4:1 1pm cough May 26, 2024 4:2 8pm HOROMONE THERAPY June 06, 2024 9:3 4am R FOOT/PINKY AND RING TOE INJURY June [id number] 4:45pm foot injury- RIGHT July 02, 2024 4:4 7pm fOLLOW UP July 04, 2024 8:0 1am 1 M FU August 08, 2024 9:17a m Health Concerns Infection Onset Date Last Indicated Resolved Time COVID-19 Rule-Out 08/23/2021 08/23/2021 Infection Onset Date Last Indicated Resolved Time COVID-19 Rule-Out 02/09/2022 02/09/2022 02/10/2022 8:16 AM EST Reason for Referral Specialty Diagnoses / Procedures Referred By Alvina ross Referred To Contact Rheumatology Diagnoses Multiple joint pain CRP elevated Procedures CONSULT TO RHEUM/IMMUN DISEASE OFFICE/OUTPATIENT [facility] MDM 60-74 MINUTES [address]gu[address], [address] [place] [address] Referral ID Status Reason Start Date Expiration Date Visits Requested Visits Authorized [id number] Authorized PCP Requested Referral 12/27/2022 1 1 Specialty Diagnoses / Procedures Referred By Alvina ross Referred To Contact Diagnoses Neva Waddell APRN.[employer] [address] [place] [address] Referral ID Status Reason Start Date Expiration Date Visits Re quested Visits Authorized [id number] Closed 1 1 Medications Administered Section Inactive [...] section and content) DATE CREATED AUTHOR 10/27/2018 [facility] DATE CREATED AUTHOR AUTHOR'S ORGANIZ ATION 11/04/2019 [facility] DATE CREATED AUTHOR AUTHOR'S ORGANIZ ATION 04/04/2022 [facility] DATE CREATED AUTHOR AUTHOR'S ORGANIZ ATION 11/15/2022 [facility] DATE CREATED AUTHOR AUTHOR'S ORGANIZ ATION 12/31/2023 [facility] DATE CREATED AUTHOR AUTHOR'S ORGANIZ ATION 08/10/2024 [facility] DATE CREATED AUTHOR AUTHOR'S ORGANIZ ATION 09/30/2024 [facility] Goals (unrecognized section and content) Goals may be documented in a n alternate sectionGoals may be documented in an alternate sectionGoals may be documented in an alternate sectionGoals may be documented in an alternate sectionGoals may be documented in an alternate sectionGoals may be documented in an alternate sectionGoals may be documented in an alternate sectionGoals may be documented in an alternate sectionGoals may be documented in an alternate sectionGoals may be documented in an alternate sectionGoals may be documented in an alternate sectionGoals may be documented in an alternate sectionGoals may be documented in an alternate sectionGoals may be documented in an alternate sectionGoals may be documented in an alternate section Source Comments (unrecognize d section and content) In the event this informatio n is protected by the Federal Confidentiality of Alcohol and Drug Abuse Patient Records regulations: The Federal rules restrict any use of the information to criminally investigate or prosecute any alcohol or drug abuse patient.[facility] the event this information is protected by the Federal Confidentiality of Alcohol and Drug Abuse Patient Records regulations: The Federal rules restrict any use of the information to criminally investigate or prosecute any alcohol or drug abuse patient.[facility] HospitalIn the event this information is protected by the Federal Confidentiality of Alcohol and Drug Abuse Patient Records regulations: The Federal rules restrict any use of the information to criminally investigate or prosecute any alcohol or drug abuse patient.[facility] HospitalIn the event this information is protected by the Federal Confidentiality of Alcohol and Drug Abuse Patient Records regulations: The Federal rules restrict any use of the information to criminally investigate or prosecute any alcohol or drug abuse patient.[facility] HospitalIn the event this information is protected by the Federal Confidentiality of Alcohol and Drug Abuse Patient Records regulations: The Federal rules restrict any use of the information to criminally investigate or prosecute any alcohol or drug abuse patient.[facility] HospitalIn the event this information is protected by the Federal Confidentiality of Alcohol and Drug Abuse Patient Records regulations: The Federal rules restrict any use of the information to criminally investigate or prosecute any alcohol or drug abuse patient.[facility] HospitalIn the event this information is protected by the Federal Confidentiality of Alcohol and Drug Abuse Patient Records regulations: The Federal rules restrict any use of the information to criminally investigate or prosecute any alcohol or drug abuse patient.[facility] HospitalIn the event this information is protected by the Federal Confidentiality of Alcohol and Drug Abuse Patient Records regulations: The Federal rules restrict any use of the information to criminally investigate or prosecute any alcohol or drug abuse patient.[facility] HospitalIn the event this information is protected by the Federal Confidentiality of Alcohol and Drug Abuse Patient Records regulations: The Federal rules restrict any use of the information to criminally investigate or prosecute any alcohol or drug abuse patient.[facility] HospitalIn the event this information is protected by the Federal Confidentiality of Alcohol and Drug Abuse Patient Records regulations: The Federal rules restrict any use of the information to criminally investigate or prosecute any alcohol or drug abuse patient.[facility] HospitalIn the event this information is protected by the Federal Confidentiality of Alcohol and Drug Abuse Patient Records regulations: The Federal rules restrict any use of the information to criminally investigate or prosecute any alcohol or drug abuse patient.[facility] HospitalIn the event this information is protected by the Federal Confidentiality of Alcohol and Drug Abuse Patient Records regulations: The Federal rules restrict any use of the information to criminally investigate or prosecute any alcohol or drug abuse patient.[facility] HospitalIn the event this information is protected by the Federal Confidentiality of Alcohol and Drug Abuse Patient Records regulations: The Federal rules restrict any use of the information to criminally investigate or prosecute any alcohol or drug abuse patient.[facility] HospitalIn the event this information is protected by the Federal Confidentiality of Alcohol and Drug Abuse Patient Records regulations: The Federal rules restrict any use of the information to criminally investigate or prosecute any alcohol or drug abuse patient.[facility] HospitalIn the event this information is protected by the Federal Confidentiality of Alcohol and Drug Abuse Patient Records regulations: The Federal rules restrict any use of the information to criminally investigate or prosecute any alcohol or drug abuse patient.[facility] HospitalIn the event this information is protected by the Federal Confidentiality of Alcohol and Drug Abuse Patient Records regulations: The Federal rules restrict any use of the information to criminally investigate or prosecute any alcohol or drug abuse patient.[facility] HospitalIn the event this information is protected by the Federal Confidentiality of Alcohol and Drug Abuse Patient Records regulations: The Federal rules restrict any use of the information to criminally investigate or prosecute any alcohol or drug abuse patient.[facility] HospitalIn the event this information is protected by the Federal Confidentiality of Alcohol and Drug Abuse Patient Records regulations: The Federal rules restrict any use of the information to criminally investigate or prosecute any alcohol or drug abuse patient.[facility] HospitalIn the event this information is protected by the Federal Confidentiality of Alcohol and Drug Abuse Patient Records regulations: The Federal rules restrict any use of the information to criminally investigate or prosecute any alcohol or drug abuse patient.[facility] HospitalIn the event this information is protected by the Federal Confidentiality of Alcohol and Drug Abuse Patient Records regulations: The Federal rules restrict any use of the information to criminally investigate or prosecute any alcohol or drug abuse patient.[facility] HospitalIn the event this information is protected by the Federal Confidentiality of Alcohol and Drug Abuse Patient Records regulations: The Federal rules restrict any use of the information to criminally investigate or prosecute any alcohol or drug abuse patient.[facility] HospitalIn the event this information is protected by the Federal Confidentiality of Alcohol and Drug Abuse Patient Records regulations: The Federal rules restrict any use of the information to criminally investigate or prosecute any alcohol or drug abuse patient.[facility] HospitalIn the event this information is protected by the Federal Confidentiality of Alcohol and Drug Abuse Patient Records regulations: The Federal rules restrict any use of the information to criminally investigate or prosecute any alcohol or drug abuse patient.[facility] HospitalIn the event this information is protected by the Federal Confidentiality of Alcohol and Drug Abuse Patient Records regulations: The Federal rules restrict any use of the information to criminally investigate or prosecute any alcohol or drug abuse patient.[facility] HospitalIn the event this information is protected by the Federal Confidentiality of Alcohol and Drug Abuse Patient Records regulations: The Federal rules restrict any use of the information to criminally investigate or prosecute any alcohol or drug abuse patient.[facility] HospitalIn the event this information is protected by the Federal Confidentiality of Alcohol and Drug Abuse Patient Records regulations: The Federal rules restrict any use of the information to criminally investigate or prosecute any alcohol or drug abuse patient.[facility] HospitalIn the event this information is protected by the Federal Confidentiality of Alcohol and Drug Abuse Patient Records regulations: The Federal rules restrict any use of the information to criminally investigate or prosecute any alcohol or drug abuse patient.[facility] HospitalIn the event this information is protected by the Federal Confidentiality of Alcohol and Drug Abuse Patient Records regulations: The Federal rules restrict any use of the information to criminally investigate or prosecute any alcohol or drug abuse patient.[facility] HospitalIn the event this information is protected by the Federal Confidentiality of Alcohol and Drug Abuse Patient Records regulations: The Federal rules restrict any use of the information to criminally investigate or prosecute any alcohol or drug abuse patient.[facility] HospitalIn the event this information is protected by the Federal Confidentiality of Alcohol and Drug Abuse Patient Records regulations: The Federal rules restrict any use of the information to criminally investigate or prosecute any alcohol or drug abuse patient.[facility] HospitalIn the event this information is protected by the Federal Confidentiality of Alcohol and Drug Abuse Patient Records regulations: The Federal rules restrict any use of the information to criminally investigate or prosecute any alcohol or drug abuse patient.[facility] HospitalIn the event this information is protected by the Federal Confidentiality of Alcohol and Drug Abuse Patient Records regulations: The Federal rules restrict any use of the information to criminally investigate or prosecute any alcohol or drug abuse patient.[facility] HospitalIn the event this information is protected by the Federal Confidentiality of Alcohol and Drug Abuse Patient Records regulations: The Federal rules restrict any use of the information to criminally investigate or prosecute any alcohol or drug abuse patient.[facility] HospitalIn the event this information is protected by the Federal Confidentiality of Alcohol and Drug Abuse Patient Records regulations: The Federal rules restrict any use of the information to criminally investigate or prosecute any alcohol or drug abuse patient.[facility] HospitalIn the event this information is protected by the Federal Confidentiality of Alcohol and Drug Abuse Patient Records regulations: The Federal rules restrict any use of the information to criminally investigate or prosecute any alcohol or drug abuse patient.[facility] HospitalIn the event this information is protected by the Federal Confidentiality of Alcohol and Drug Abuse Patient Records regulations: The Federal rules restrict any use of the information to criminally investigate or prosecute any alcohol or drug abuse patient.[facility] HospitalIn the event this information is protected by the Federal Confidentiality of Alcohol and Drug Abuse Patient Records regulations: The Federal rules restrict any use of the information to criminally investigate or prosecute any alcohol or drug abuse patient.[facility] HospitalIn the event this information is protected by the Federal Confidentiality of Alcohol and Drug Abuse Patient Records regulations: The Federal rules restrict any use of the information to criminally investigate or prosecute any alcohol or drug abuse patient.[facility] HospitalIn the event this information is protected by the Federal Confidentiality of Alcohol and Drug Abuse Patient Records regulations: The Federal rules restrict any use of the information to criminally investigate or prosecute any alcohol or drug abuse patient.[facility] HospitalIn the event this information is protected by the Federal Confidentiality of Alcohol and Drug Abuse Patient Records regulations: The Federal rules restrict any use of the information to criminally investigate or prosecute any alcohol or drug abuse patient.[facility] HospitalIn the event this information is protected by the Federal Confidentiality of Alcohol and Drug Abuse Patient Records regulations: The Federal rules restrict any use of the information to criminally investigate or prosecute any alcohol or drug abuse patient.[facility] HospitalIn the event this information is protected by the Federal Confidentiality of Alcohol and Drug Abuse Patient Records regulations: The Federal rules restrict any use of the information to criminally investigate or prosecute any alcohol or drug abuse patient.[facility] HospitalIn the event this information is protected by the Federal Confidentiality of Alcohol and Drug Abuse Patient Records regulations: The Federal rules restrict any use of the information to criminally investigate or prosecute any alcohol or drug abuse patient.[facility] ClinicIn the event this information is protected by the Federal Confidentiality of Alcohol and Drug Abuse Patient Records regulations: The Federal rules restrict any use of the information to criminally investigate or prosecute any alcohol or drug abuse patient.[facility] HospitalIn the event this information is protected by the Federal Confidentiality of Alcohol and Drug Abuse Patient Records regulations: The Federal rules restrict any use of the information to criminally investigate or prosecute any alcohol or drug abuse patient.[facility] HospitalIn the event this information is protected by the Federal Confidentiality of Alcohol and Drug Abuse Patient Records regulations: The Federal rules restrict any use of the information to criminally investigate or prosecute any alcohol or drug abuse patient.[facility] HospitalIn the event this information is protected by the Federal Confidentiality of Alcohol and Drug Abuse Patient Records regulations: The Federal rules restrict any use of the information to criminally investigate or prosecute any alcohol or drug abuse patient.[facility] HospitalIn the event this information is protected by the Federal Confidentiality of Alcohol and Drug Abuse Patient Records regulations: The Federal rules restrict any use of the information to criminally investigate or prosecute any alcohol or drug abuse patient.[facility] HospitalIn the event this information is protected by the Federal Confidentiality of Alcohol and Drug Abuse Patient Records regulations: The Federal rules restrict any use of the information to criminally investigate or prosecute any alcohol or drug abuse patient.[facility] HospitalIn the event this information is protected by the Federal Confidentiality of Alcohol and Drug Abuse Patient Records regulations: The Federal rules restrict any use of the information to criminally investigate or prosecute any alcohol or drug abuse patient.[facility] HospitalIn the event this information is protected by the Federal Confidentiality of Alcohol and Drug Abuse Patient Records regulations: The Federal rules restrict any use of the information to criminally investigate or prosecute any alcohol or drug abuse patient.[facility] HospitalIn the event this information is protected by the Federal Confidentiality of Alcohol and Drug Abuse Patient Records regulations: The Federal rules restrict any use of the information to criminally investigate or prosecute any alcohol or drug abuse patient.[facility] HospitalIn the event this information is protected by the Federal Confidentiality of Alcohol and Drug Abuse Patient Records regulations: The Federal rules restrict any use of the information to criminally investigate or prosecute any alcohol or drug abuse patient.[facility] HospitalIn the event this information is protected by the Federal Confidentiality of Alcohol and Drug Abuse Patient Records regulations: The Federal rules restrict any use of the information to criminally investigate or prosecute any alcohol or drug abuse patient.[facility] HospitalIn the event this information is protected by the Federal Confidentiality of Alcohol and Drug Abuse Patient Records regulations: The Federal rules restrict any use of the information to criminally investigate or prosecute any alcohol or drug abuse patient.[facility] HospitalIn the event this information is protected by the Federal Confidentiality of Alcohol and Drug Abuse Patient Records regulations: The Federal rules restrict any use of the information to criminally investigate or prosecute any alcohol or drug abuse patient.[facility] HospitalIn the event this information is protected by the Federal Confidentiality of Alcohol and Drug Abuse Patient Records regulations: The Federal rules restrict any use of the information to criminally investigate or prosecute any alcohol or drug abuse patient.[facility] HospitalIn the event this information is protected by the Federal Confidentiality of Alcohol and Drug Abuse Patient Records regulations: The Federal rules restrict any use of the information to criminally investigate or prosecute any alcohol or drug abuse patient.[facility] HospitalIn the event this information is protected by the Federal Confidentiality of Alcohol and Drug Abuse Patient Records regulations: The Federal rules restrict any use of the information to criminally investigate or prosecute any alcohol or drug abuse patient.[facility] HospitalIn the event this information is protected by the Federal Confidentiality of Alcohol and Drug Abuse Patient Records regulations: The Federal rules restrict any use of the information to criminally investigate or prosecute any alcohol or drug abuse patient.[facility] HospitalIn the event this information is protected by the Federal Confidentiality of Alcohol and Drug Abuse Patient Records regulations: The Federal rules restrict any use of the information to criminally investigate or prosecute any alcohol or drug abuse patient.[facility] HospitalIn the event this information is protected by the Federal Confidentiality of Alcohol and Drug Abuse Patient Records regulations: The Federal rules restrict any use of the information to criminally investigate or prosecute any alcohol or drug abuse patient.[facility] HospitalIn the event this information is protected by the Federal Confidentiality of Alcohol and Drug Abuse Patient Records regulations: The Federal rules restrict any use of the information to criminally investigate or prosecute any alcohol or drug abuse patient.[facility] HospitalIn the event this information is protected by the Federal Confidentiality of Alcohol and Drug Abuse Patient Records regulations: The Federal rules restrict any use of the information to criminally investigate or prosecute any alcohol or drug abuse patient.[facility] HospitalIn the event this information is protected by the Federal Confidentiality of Alcohol and Drug Abuse Patient Records regulations: The Federal rules restrict any use of the information to criminally investigate or prosecute any alcohol or drug abuse patient.[facility] HospitalIn the event this information is protected by the Federal Confidentiality of Alcohol and Drug Abuse Patient Records regulations: The Federal rules restrict any use of the information to criminally investigate or prosecute any alcohol or drug abuse patient.[facility] HospitalIn the event this information is protected by the Federal Confidentiality of Alcohol and Drug Abuse Patient Records regulations: The Federal rules restrict any use of the information to criminally investigate or prosecute any alcohol or drug abuse patient.[facility] HospitalIn the event this information is protected by the Federal Confidentiality of Alcohol and Drug Abuse Patient Records regulations: The Federal rules restrict any use of the information to criminally investigate or prosecute any alcohol or drug abuse patient.[facility] HospitalIn the event this information is protected by the Federal Confidentiality of Alcohol and Drug Abuse Patient Records regulations: The Federal rules restrict any use of the information to criminally investigate or prosecute any alcohol or drug abuse patient.[facility] HospitalIn the event this information is protected by the Federal Confidentiality of Alcohol and Drug Abuse Patient Records regulations: The Federal rules restrict any use of the information to criminally investigate or prosecute any alcohol or drug abuse patient.[facility] HospitalIn the event this information is protected by the Federal Confidentiality of Alcohol and Drug Abuse Patient Records regulations: The Federal rules restrict any use of the information to criminally investigate or prosecute any alcohol or drug abuse patient.[facility] HospitalIn the event this information is protected by the Federal Confidentiality of Alcohol and Drug Abuse Patient Records regulations: The Federal rules restrict any use of the information to criminally investigate or prosecute any alcohol or drug abuse patient.[facility] HospitalIn the event this information is protected by the Federal Confidentiality of Alcohol and Drug Abuse Patient Records regulations: The Federal rules restrict any use of the information to criminally investigate or prosecute any alcohol or drug abuse patient.[facility] HospitalIn the event this information is protected by the Federal Confidentiality of Alcohol and Drug Abuse Patient Records regulations: The Federal rules restrict any use of the information to criminally investigate or prosecute any alcohol or drug abuse patient.[facility] HospitalIn the event this information is protected by the Federal Confidentiality of Alcohol and Drug Abuse Patient Records regulations: The Federal rules restrict any use of the information to criminally investigate or prosecute any alcohol or drug abuse patient.[facility] HospitalIn the event this information is protected by the Federal Confidentiality of Alcohol and Drug Abuse Patient Records regulations: The Federal rules restrict any use of the information to criminally investigate or prosecute any alcohol or drug abuse patient.[facility] HospitalIn the event this information is protected by the Federal Confidentiality of Alcohol and Drug Abuse Patient Records regulations: The Federal rules restrict any use of the information to criminally investigate or prosecute any alcohol or drug abuse patient.[facility] HospitalIn the event this information is protected by the Federal Confidentiality of Alcohol and Drug Abuse Patient Records regulations: The Federal rules restrict any use of the information to criminally investigate or prosecute any alcohol or drug abuse patient.[facility] HospitalIn the event this information is protected by the Federal Confidentiality of Alcohol and Drug Abuse Patient Records regulations: The Federal rules restrict any use of the information to criminally investigate or prosecute any alcohol or drug abuse patient.[facility] HospitalIn the event this information is protected by the Federal Confidentiality of Alcohol and Drug Abuse Patient Records regulations: The Federal rules restrict any use of the information to criminally investigate or prosecute any alcohol or drug abuse patient.[facility] HospitalIn the event this information is protected by the Federal Confidentiality of Alcohol and Drug Abuse Patient Records regulations: The Federal rules restrict any use of the information to criminally investigate or prosecute any alcohol or drug abuse patient.[facility] HospitalIn the event this information is protected by the Federal Confidentiality of Alcohol and Drug Abuse Patient Records regulations: The Federal rules restrict any use of the information to criminally investigate or prosecute any alcohol or drug abuse patient.[facility] HospitalIn the event this information is protected by the Federal Confidentiality of Alcohol and Drug Abuse Patient Records regulations: The Federal rules restrict any use of the information to criminally investigate or prosecute any alcohol or drug abuse patient.[facility] HospitalIn the event this information is protected by the Federal Confidentiality of Alcohol and Drug Abuse Patient Records regulations: The Federal rules restrict any use of the information to criminally investigate or prosecute any alcohol or drug abuse patient.[facility] HospitalIn the event this information is protected by the Federal Confidentiality of Alcohol and Drug Abuse Patient Records regulations: The Federal rules restrict any use of the information to criminally investigate or prosecute any alcohol or drug abuse patient.[facility] HospitalIn the event this information is protected by the Federal Confidentiality of Alcohol and Drug Abuse Patient Records regulations: The Federal rules restrict any use of the information to criminally investigate or prosecute any alcohol or drug abuse patient.[facility] HospitalIn the event this information is protected by the Federal Confidentiality of Alcohol and Drug Abuse Patient Records regulations: The Federal rules restrict any use of the information to criminally investigate or prosecute any alcohol or drug abuse patient.[facility] HospitalIn the event this information is protected by the Federal Confidentiality of Alcohol and Drug Abuse Patient Records regulations: The Federal rules restrict any use of the information to criminally investigate or prosecute any alcohol or drug abuse patient.[facility] HospitalIn the event this information is protected by the Federal Confidentiality of Alcohol and Drug Abuse Patient Records regulations: The Federal rules restrict any use of the information to criminally investigate or prosecute any alcohol or drug abuse patient.[facility] HospitalIn the event this information is protected by the Federal Confidentiality of Alcohol and Drug Abuse Patient Records regulations: The Federal rules restrict any use of the information to criminally investigate or prosecute any alcohol or drug abuse patient.[facility] HospitalIn the event this information is protected by the Federal Confidentiality of Alcohol and Drug Abuse Patient Records regulations: The Federal rules restrict any use of the information to criminally investigate or prosecute any alcohol or drug abuse patient.[facility] HospitalIn the event this information is protected by the Federal Confidentiality of Alcohol and Drug Abuse Patient Records regulations: The Federal rules restrict any use of the information to criminally investigate or prosecute any alcohol or drug abuse patient.[facility] HospitalIn the event this information is protected by the Federal Confidentiality of Alcohol and Drug Abuse Patient Records regulations: The Federal rules restrict any use of the information to criminally investigate or prosecute any alcohol or drug abuse patient.[facility] ClinicIn the event this information is protected by the Federal Confidentiality of Alcohol and Drug Abuse Patient Records regulations: The Federal rules restrict any use of the information to criminally investigate or prosecute any alcohol or drug abuse patient.[facility] HospitalIn the event this information is protected by the Federal Confidentiality of Alcohol and Drug Abuse Patient Records regulations: The Federal rules restrict any use of the information to criminally investigate or prosecute any alcohol or drug abuse patient.[facility] HospitalIn the event this information is protected by the Federal Confidentiality of Alcohol and Drug Abuse Patient Records regulations: The Federal rules restrict any use of the information to criminally investigate or prosecute any alcohol or drug abuse patient.[facility] Reason for Visit (unrecogniz ed section and [...] worse. Specialty Diagnoses / Procedures Referred By Alvina ross Referred To Contact Rheumatology Diagnoses Multiple joint pain CRP elevated Procedures CONSULT TO RHEUM/IMMUN DISEASE OFFICE/OUTPATIENT NEW HIGH MDM 60-74 MINUTES Tang Olguin, DO [address] [place] [address] Referral ID Status Reason Start Date Expiration Date V isits Requested Visits Authorized [id number] Closed PCP Requested Referral 12/27/2021 12/27/2022 1 1 Reason Onset Date Comments Follow Up Immunizations 02/17/2022 Flu vaccination Reason Comments Schedule Surgery Reason Comments Obesity Reason Comments Established Patient Left CTR - Wants to discuss surgery Last seen 07/15/20 Left elbow pain Reason Onset Date Comments Refill Request 03/17/2022 Reason Comments No Show Reason Comments Chest Pain Reason Comments 05/28/2022Sunday PSEUDO DATE Reason Onset Date Comments Refill [...] Comments Refill Request 12/18/2022 Reason Comments Other [facility] [address]192 [id number] [id number] .10 Reason Comments Pain (foot) [...] Reason Onset Date Comments Refill Request 12/14/2023 Reason Comments Cough Cough, ST, bodyaches , sinus, LONG and chest feels tight x 1 week Reason Comments Follow Up fibromyalgia, knee p ain Reason Onset Date Comments Refill Request 06/14/2024 Reason Comments Medication Problem From adipex, lungs h urt and chest hurt quit taking Reason Comments Pain New Swelling Numbness Reason Comments F/U 3 Month Reason Comments Consult cyst Care Teams (unrecognized sec tion and content) Wind Farm Support Specialist Relationship Specialty Start Date End Date Tang Olguin, DO [address] [facility] [place] [address] PCP - General Family Practice 10/24/12 Wind Farm Support Specialist Relationship Specialty Start Date End Date Tang Olguin DO [address] [place] [place] [address] PCP - General Family Practice 10/24/12 Wind Farm Support Specialist Relationship Specialty Start Date End Date Tang Olguin DO [address] [place] [address] PCP - General Family Practice 10/24/12 Wind Farm Support Specialist Relationship Specialty Start Date End Date Tang Olguin, DO [address] [place] [address] PCP - General Family Practice 10/24/12 Wind Farm Support Specialist Relationship Specialty Start Date End Date Tang Olguin, DO [address] [place] [address] PCP - General Family Practice 10/24/12 Wind Farm Support Specialist Relationship Specialty Start Date End Date Tang Olguin, DO [address] [place] [address] PCP - General Family Practice 10/24/12 Wind Farm Support Specialist Relationship Specialty Start Date End Date Tang Olguin, DO [address] [place] [address] PCP - General Family Medicine 10/24/12 Wind Farm Support Specialist Relationship Specialty Start Date End Date Tang Olguin, DO [address] [place] [address] PCP - General Family Medicine 10/24/12 Wind Farm Support Specialist Relationship Specialty Start Date End Date Tang Olguin, DO [address] [place] [address] PCP - General Family Medicine 10/24/12 Wind Farm Support Specialist Relationship Specialty Start Date End Date Tang Olguin, DO [address] [place] [address] PCP - General Family Medicine 10/24/12 Wind Farm Support Specialist Relationship Specialty Start Date End Date Tang Olguin, DO [address] [place] [address] PCP - General Family Medicine 10/24/12 Wind Farm Support Specialist Relationship Specialty Start Date End Date Tang Olguin, DO [address] [place] [address] PCP - General Family Medicine 10/24/12 Wind Farm Support Specialist Relationship Specialty Start Date End Date Tang Olguin, DO [address] [place] [address] PCP - General Family Medicine 10/24/12 Wind Farm Support Specialist Relationship Specialty Start Date End Date Tang Olguin, DO [address] [place] [address] PCP - General Family Medicine 10/24/12 Wind Farm Support Specialist Relationship Specialty Start Date End Date Tang Olguin, DO [address] [place] [address] PCP - General Family Medicine 10/24/12 Wind Farm Support Specialist Relationship Specialty Start Date End Date Tang Olguin, DO [address] [place] [address] PCP - General Family Medicine 10/24/12 Wind Farm Support Specialist Relationship Specialty Start Date End Date Tang Olguin, DO [address] [place] [address] PCP - General Family Medicine 10/24/12 Wind Farm Support Specialist Relationship Specialty Start Date End Date Tang Olguin, DO [address] [place] [address] PCP - General Family Medicine 10/24/12 Wind Farm Support Specialist Relationship Specialty Start Date End Date Tang Olguin, DO [address] [place] [address] PCP - General Family Medicine 10/24/12 Wind Farm Support Specialist Relationship Specialty Start Date End Date Tang Olguin, DO [address] [place] [address] PCP - General Family Medicine 10/24/12 Wind Farm Support Specialist Relationship Specialty Start Date End Date Tang Olguin, DO [address] [place] [address] PCP - General Family Medicine 10/24/12 Wind Farm Support Specialist Relationship Specialty Start Date End Date Tang Olguin, DO [address] [place] [address] PCP - General Family Medicine 10/24/12 Wind Farm Support Specialist Relationship Specialty Start Date End Date Tang Olguin, DO [address] [place] [address] PCP - General Family Medicine 10/24/12 Team Status: Active Member Role Status Dates Dr. Tang Olguin , DO Family Provider Active Dr. Tang Olguin , DO Primary Care Provider Active Team Status: Active Member Role Status Dates Dr. Tang Olguin , DO Primary Care Provider Active Dr. Ayad Villa MD Attending Provider Active Dr. Reggie Pina , Referring Provider Active Team Status: Inactive Member Role Status Dates Dr. Tang Olguin , DO Primary Care Provider Active Dr. Hardeep Mascorro , DO Attending Provider, Emergency Herlinda giron Active Team Status: Inactive Member Role Status Dates Dr. Tang Olguin , DO Primary Care Provider Active Dr. Reggie Pina , DO Attending Provider, Emergency Provider Active Team Status: Inactive Member Role Status Dates Dr. Tang Olguin , DO Primary Care Provider Active Dr. Geovanni Mohan , DO Emergency Provider Active Wind Farm Support Specialist Relationship Specialty Start Date End Date Tang Olguin, DO [address] [place] [place] [address] PCP - General Family Medicine 10/24/12 Wind Farm Support Specialist Relationship Specialty Start Date End Date Tang Olguin DO [address] [place] [address] PCP - General Family Medicine 10/24/12 Wind Farm Support Specialist Relationship Specialty Start Date End Date Tang Olguin, [address] [place] [address] PCP - General Family Medicine 10/24/12 Team Status: Inactive Member Role Status Dates Dr. Tang Olguin , Primary Care Provider, Referr ing Provider Active Patricia June REIMBURSEMENT DIRECTOR, REIMBURSEMENT DIRECTOR-C Attending Provider Active Team Status: Inactive Member Role Status Dates Dr. Tang Olguin DO Primary Care Provider, Referr ing Provider Active Trevor Cooper REIMBURSEMENT DIRECTOR, REIMBURSEMENT DIRECTOR-C Attending Provider Active Team Status: Inactive Member Role Status Dates Dr. Tang Olguin DO Primary Care Provider, Referr ing Provider Active Dr. Vidhya Prajapati MD Attending Provider Active Team Status: Inactive Member Role Status Dates Dr. Tang Olguin DO Primary Care Provider Active Dr. Geovanni Mohan DO Attending Provider, Emergency Provide r Active Team Status: Inactive Member Role Status Dates Dr. Tang Olguin DO Primary Care Provider Active Dr. Vidhya Prajapati MD Attending Provider, Referr ing Provider Active Wind Farm Support Specialist Relationship Specialty Start Date End Date Tang Olguin, DO [address] [place] [address] PCP - General Family Medicine 10/24/12 Wind Farm Support Specialist Relationship Specialty Start Date End Date Tang Olguin, DO [address] [place] [address] PCP - General Family Medicine 10/24/12 Wind Farm Support Specialist Relationship Specialty Start Date End Date Tang Olguin DO [address] [place] [address] PCP - General Family Medicine 10/24/12 Wind Farm Support Specialist Relationship Specialty Start Date End Date Tang Olguin DO [address] [place] [address] PCP - General Family Medicine 10/24/12 Wind Farm Support Specialist Relationship Specialty Start Date End Date Tang Olguin DO [address] [place] [address] PCP - General Family Medicine 10/24/12 Wind Farm Support Specialist Relationship Specialty Start Date End Date Tang Olguin DO [address] [place] [address] PCP - General Family Medicine 10/24/12 Team Status: Inactive Member Role Status Dates Dr. Tang Olguin , DO Primary Care Provider Active Dr. Angela Millard , DO Emergency Provider Active Wind Farm Support Specialist Relationship Specialty Start Date End Date Tang Olguin DO [address] [place] [address] PCP - General Family Medicine 10/24/12 Wind Farm Support Specialist Relationship Specialty Start Date End Date Tang Olguin DO [address] [place] [address] PCP - General Family Medicine 10/24/12 Wind Farm Support Specialist Relationship Specialty Start Date End Date Tang Olguin DO [address] [place] [address] PCP - General Family Medicine 10/24/12 Team Status: Inactive Member Role Status Dates Dr. Tang Olguin , DO Primary Care Provider, Referr ing Provider Active Dr. Faraz Cortez , DO Attending Provider Active Team Status: Inactive Member Role Status Dates Dr. Tang Olguin , DO Primary Care Provider Active Dr. Angela Millard , DO Attending Provider, Emergency Pro vider Active Team Status: Active Member Role Status Dates Dr. Tang Olguin , DO Primary Care Provider Active Dr. Faraz Cortez , DO Attending Provider, Referring Provider Active Team Status: Inactive Member Role Status Dates Dr. Tang Olguin , DO Primary Care Provider Active Dr. Faraz Crotez , DO Attending Provider, Referring Provider Active Team Status: Inactive Member Role Status Dates Dr. Tang Olguin , DO Primary Care Provider Active Dr. Delfina Gabriel , DO Emergency Provider Active Wind Farm Support Specialist Relationship Specialty Start Date End Date Tang Olguin DO [address] [place] [address] PCP - General Family Medicine 10/24/12 Wind Farm Support Specialist Relationship Specialty Start Date End Date Tang Olguin DO [address] [place] [address] PCP - General 10/30/22 Wind Farm Support Specialist Relationship Specialty Start Date End Date Tang Olguin DO [address] [place] [address] PCP - General Family Medicine 10/24/12 Team Status: Inactive Member Role Status Dates Dr. Tang Olguin DO Primary Care Provider, Referr ing Provider Active Herb SÁNCHEZ, PA Attending Provider Active Team Status: Active Member Role Status Dates Dr. Tang Olguin , DO Primary Care Provider, Referr ing Provider Active Dr. Faraz Cortez , DO Attending Provider, Other Prov ider Active Wind Farm Support Specialist Relationship Specialty Start Date End Date Tang Olguin DO [address] [place], [place] [address] PCP - General Family Medicine 10/24/12 Team Status: Inactive Member Role Status Dates Dr. Tang Olguin , DO Primary Care Provider, Referr ing Provider Active Kar SÁNCHEZ, PA Attending Provider Active Team Status: Active Member Role Status Dates Dr. Tang Olguin DO Primary Care Provider Active Dr. Ayad Villa MD Attending Provider Active Team Status: Inactive Member Role Status Dates Dr. Tang Olguin DO Primary Care Provider Active Dr. Hardeep Mascorro , DO Emergency Provider Active Wind Farm Support Specialist Relationship Specialty Start Date End Date Tang Olguin DO [address] [place] [address] PCP - General Family Medicine 10/24/12 Wind Farm Support Specialist Relationship Specialty Start Date End Date Tang Olguin DO [address] [place] [address] PCP - General Family Medicine 10/24/12 Wind Farm Support Specialist Relationship Specialty Start Date End Date Tang Olguin DO [address] [place] [address] PCP - General Family Medicine 10/24/12 Wind Farm Support Specialist Relationship Specialty Start Date End Date Tang Olguin DO [address] [place] [address] PCP - General Family Medicine 10/24/12 Wind Farm Support Specialist Relationship Specialty Start Date End Date Tang Olguin DO [address] [place] [address] PCP - General Family Medicine 10/24/12 Wind Farm Support Specialist Relationship Specialty Start Date End Date Tang Olguin DO [address] [place] [address] PCP - General Family Medicine 10/24/12 Wind Farm Support Specialist Relationship Specialty Start Date End Date Tang Olguin, [address] [place] [address] PCP - General Family Medicine 10/24/12 Wind Farm Support Specialist Relationship Specialty Start Date End Date Tang Olguin, DO [address] [place] [address] PCP - General Family Medicine 10/24/12 Wind Farm Support Specialist Relationship Specialty Start Date End Date Tang Olguin, DO [address] [place] [address] PCP - General Family Medicine 10/24/12 Wind Farm Support Specialist Relationship Specialty Start Date End Date Tang Olguin DO [address] [place] [address] PCP - General Family Medicine 10/24/12 Wind Farm Support Specialist Relationship Specialty Start Date End Date Tang Olguin, [address] [place] [address] PCP - General Family Medicine 10/24/12 Wind Farm Support Specialist Relationship Specialty Start Date End Date Tang Olguin, DO [address] [place] [address] PCP - General Family Medicine 10/24/12 Wind Farm Support Specialist Relationship Specialty Start Date End Date Tang Olguin, [address] [place] [address] PCP - General Family Medicine 10/24/12 Wind Farm Support Specialist Relationship Specialty Start Date End Date Tang Olguin, DO [address] [place] [address] PCP - General Family Medicine 10/24/12 Silva Lew, TECHNICAL SUPPORT ANALYST.RESIDENCE LIFE DIRECTOR [address] [facility] [place] [address] Personal Lines [facility] 02/17/24 Neva Shields, TECHNICAL SUPPORT ANALYST.RESIDENCE LIFE DIRECTOR [address] [place] [place] [address] Personal Lines [facility] 02/17/24 Wind Farm Support Specialist Relationship Specialty Start Date End Date Tang Olguin DO [address] [place] [place] [address] PCP - General Family Medicine 10/24/12 Silva Lew, TECHNICAL SUPPORT ANALYST.RESIDENCE LIFE DIRECTOR [address] [facility] [place] [address] Personal Lines [facility] 02/17/24 CorneliusNeva, TECHNICAL SUPPORT ANALYST.RESIDENCE LIFE DIRECTOR [address] [place] [place] [address] [facility] 02/17/24 Wind Farm Support Specialist Relationship Specialty Start Date End Date Tang Olguin DO [address] [place] [place] [address] PCP - [facility] Medicine 10/24/12 Silva Lew, TECHNICAL SUPPORT ANALYST.RESIDENCE LIFE DIRECTOR [address] [facility] [place] [address] [facility] 02/17/24 Neva Shields, TECHNICAL SUPPORT ANALYST.RESIDENCE LIFE DIRECTOR [address] [place] [place] [address] [facility] 02/17/24 Wind Farm Support Specialist Relationship Specialty Start Date End Date Tang Olguin DO [address] [place] [address] PCP - General Family Medicine 10/24/12 Silva Lew, TECHNICAL SUPPORT ANALYST.RESIDENCE LIFE DIRECTOR [address] [place] [address] Personal Lines Sales Executive Family [facility] 02/17/24 05/30/24 Neva Shileds, TECHNICAL SUPPORT ANALYST.RESIDENCE LIFE DIRECTOR [address] [place], [place] [address] Personal Lines Sales Executive [facility] 02/17/24 Team Status: Inactive Member Role Status Dates Dr. Tang Olguin DO Primary Care Provider Active Start: February 27, 2024 End: February 27, 2024 Dr. Tang Olguin DO Referring Provider Active Start: February 27, 2024 End: February 27, 2024 PRINCESS Newberry Attending Provider Active Start: February 27, 2024 End: February 27, 2024 Team Status: Inactive Member Role Status Dates Dr. Tang Olguin DO Primary Care Provider Active Start: February 27, 2024 End: February 27, 2024 PRINCESS Newberry Attending Provider Active Start: February 27, 2024 End: February 27, 2024 PRINCESS Newberry Referring Provider Active Start: February 27, 2024 End: February 27, 2024 Team Status: Inactive Member Role Status Dates Dr. Tang Olguin DO Primary Care Provider Active Start: May 26, 2024 End: May 26, 2024 Dr. Tang Olguin DO Referring Provider Active Start: May 26, 2024 End: May 26, 2024 PRINCESS Newberry Attending Provider Active Start: May 26, 2024 End: May 26, 2024 Team Status: Inactive Member Role Status Dates Dr. Tang Olguin DO Primary Care Provider Active Start: May 26, 2024 End: May 26, 2024 PRINCESS Newberry Attending Provider Active Start: May 26, 2024 End: May 26, 2024 Herb SÁNCHEZ PA Referring Provider Active Start: May 26, 2024 End: May 26, 2024 Wind Farm Support Specialist Relationship Specialty Start Date End Date Tang Olguin DO [address] [place] [address] PCP - General Family Medicine 10/24/12 [facility]Neva, TECHNICAL SUPPORT ANALYST.RESIDENCE LIFE DIRECTOR [address] [place] [address] Personal Lines Sales Executive [facility] 02/17/24 Wind Farm Support Specialist Relationship Specialty Start Date End Date Tang Olguin DO [address] [place] [address] PCP - General Family Medicine 10/24/12 CorneliusNeva, TECHNICAL SUPPORT ANALYST.RESIDENCE LIFE DIRECTOR [address] [place] [address] Personal Lines Sales Executive [facility] 02/17/24 Team Status: Inactive Member Role Status Dates Dr. Tang Olguin DO Primary Care Provider Active Start: June 06, 2024 End: June 06, 2024 Dr. Tang Olguin DO Referring Provider Active Start: June 06, 2024 End: June 06, 2024 Debbie Ying NP, REIMBURSEMENT DIRECTOR-C Attending Provider Active Start: June 06, 2024 End: June 06, 2024 Team Status: Inactive Member Role Status Dates Dr. Tang Olguin DO Primary Care Provider Active Start: July 02, 2024 End: July 02, 2024 Dr. Tang Olguin DO Referring Provider Active Start: July 02, 2024 End: July 02, 2024 Herb SÁNCHEZ PA Attending Provider Active Start: July 02, 2024 End: July 02, 2024 Team Status: Inactive Member Role Status Dates Dr. Tang Olguin DO Primary Care Provider Active Start: July 02, 2024 End: July 02, 2024 PRINCESS Newberry Attending Provider Active Start: July 02, 2024 End: July 02, 2024 PRINCESS Newberry Referring Provider Active Start: July 02, 2024 End: July 02, 2024 Team Status: Inactive Member Role Status Dates Dr. Tang Olguin DO Primary Care Provider Active Start: July 04, 2024 End: July 04, 2024 Dr. Tang Olguin DO Referring Provider Active Start: July 04, 2024 End: July 04, 2024 Dr. Faraz Cortez DO Attending Provider Active Start: July 04, 2024 End: July 04, 2024 Wind Farm Support Specialist Relationship Specialty Start Date End Date Tang Olguin DO [address] [place] [address] PCP - General Family Medicine 10/24/12 Neva Shields, TECHNICAL SUPPORT ANALYST.RESIDENCE LIFE DIRECTOR [address] [place] [address] [facility] 02/17/24 Wind Farm Support Specialist Relationship Specialty Start Date End Date Tang Olguin DO [address] [place] [address] PCP - General Family Medicine 10/24/12 Neva Shields, TECHNICAL SUPPORT ANALYST.RESIDENCE LIFE DIRECTOR [address] [place] [address] [facility] Family Medicine 02/17/24 Wind Farm Support Specialist Relationship Specialty Start Date End Date Tang Olguin DO [address] [place] [address] PCP - General Family Medicine 10/24/12 Silva Lew, TECHNICAL SUPPORT ANALYST.RESIDENCE LIFE DIRECTOR [address] [place] [address] [facility] Family Medicine 02/17/24 05/30/24 Neva Shields, TECHNICAL SUPPORT ANALYST.RESIDENCE LIFE DIRECTOR [address], [place] [address] [facility] Team Status: Active Member Role Status Dates Dr. Tang Olguin DO Primary Care Provider Active Team Status: Inactive Member Role Status Dates Dr. Tang Olguin DO Primary Care Provider Active Start: July 23, 2024 End: July 23, 2024 Dr. Tang Olguin DO Referring Provider Active Start: July 23, 2024 End: July 23, 2024 Dr. Faraz Cortez DO Attending Provider Active Start: July 23, 2024 End: July 23, 2024 Team Status: Active Member Role Status Dates Dr. Tang Olguin DO Primary Care Provider Active Start: July 23, 2024 Dr. Tang Olguin DO Referring Provider Active Start: July 23, 2024 Dr. Faraz Cortez DO Attending Provider Active Start: July 23, 2024 Dr. Faraz Cortez DO Other Provider Active St art: July 23, 2024 Team Status: Inactive Member Role Status Dates Dr. Tang Olguin DO Primary Care Provider Active Start: August 08, 2024 End: August 08, 2024 Dr. Tang Olguin DO Referring Provider Active Start: August 08, 2024 End: August 08, 2024 Dr. Faraz Cortez DO Attending Provider Active Start: August 08, 2024 End: August 08, 2024 Wind Farm Support Specialist Relationship Specialty Start Date End Date Tang Olguin DO [address] [place] [address] PCP - General Family Medicine 10/24/12 Neva Shields, TECHNICAL SUPPORT ANALYST.RESIDENCE LIFE DIRECTOR [address], [place] [id number] [facility] 02/17/24 Wind Farm Support Specialist Relationship Specialty Start Date End Date Tang Olguin DO [address], [place] [address] PCP - General [facility] 10/24/12 Neva Shields, RAMON.RESIDENCE LIFE DIRECTOR [address], [place] [address] [facility] 02/17/24 Nissa Villasenor TECHNICAL SUPPORT ANALYST.RESIDENCE LIFE DIRECTOR [address] [place], [place] [address] [facility] 08/25/24 Wind Farm Support Specialist Relationship Specialty Start Date End Date Tang Olguin DO [address] [place] [address] PCP - [facility] 10/24/12 CorneliusNeva, TECHNICAL SUPPORT ANALYST.RESIDENCE LIFE DIRECTOR [address], [place] [id number] [facility] 02/17/24 Nissa Villasenor, TECHNICAL SUPPORT ANALYST.RESIDENCE LIFE DIRECTOR [address] [place], [place] [id number] [facility] 08/25/24 FOR RECORDS PERTAINING TO PATIENTS WHO ARE [...] BE BASED ON THE PRIMARY CLINICAL RECORDS. [facility] [facility]. provides no warranty or guarantee of the accuracy or completeness of information in this document.
--- NOTE | 2024-10-01 00:11 | EX.ED.DYSGE1 ---
HPI History of Present Illness Chief Complaint: Chest Pain Informant: patient and spouse/S.O. Narrative Narrative: Patient is a 54-year-old female with past medical history of fibromyalgia hypertension GERD and previous gastric bypass surgery. She states she been under a great deal of stress recently as they are getting the house ready to move. She states that today she has been having intermittent bouts of sharp midsternal to left-sided chest pain. She states the pain is sharp and intermittent and does not cause nausea vomiting diaphoresis or shortness of breath. She states that she was trying to go to sleep tonight and the symptoms are reoccurring and she was concerned this could be cardiac in nature and secondary to this comes in for evaluation. Patient does admit to a previous history of DVT. She states she was never tested for genetic clotting disorder and states she is not on anticoagulation at this time [facility] Medical History Arthritis History of DVT (deep vein thrombosis) Easy bruising Difficulty chewing PONV (postoperative nausea and vomiting) Contusion of right lesser toe(s) without damage to nail, initial encounter URI (upper respiratory infection) Mid back pain on right side Hx of blood clots Fibromyalgia Fatty liver Restless legs Difficulty swallowing History of hiatal hernia History of IBS Gastric reflux Non-smoker Asthma History of echocardiogram History of stress test Cardiology follow-up encounter COVID-19 uterine ablation r middle trigger finger release Delivery with history of Vitamin D deficiency Trigger ring finger of right hand Trigger middle finger of right hand Temporomandibular joint disorder Seizures Right hand paresthesia Rheumatoid arthritis PTSD (post-traumatic stress disorder) Patellofemoral disorder Impaired fasting glucose HTN (hypertension) Hypercholesteremia HSV infection Hayfever GERD (gastroesophageal reflux disease) Fibromyalgia muscle pain Endometriosis Diaphragmatic hernia without mention of obstruction or gangrene Depressive disorder Colon polyps Carpal tunnel syndrome Anxiety Calcaneal spur Aortic aneurysm Home Medications ?Medication ?Instructions ?Recorded ?Last Taken ?Type cetirizine 10 mg capsule (Zyrtec) 10 mg PO QHS allergies 01/22/17 07/22/24 History escitalopram oxalate 5 mg tablet 5 mg PO QHS 04/20/23 Unknown History pantoprazole 40 mg tablet,delayed 40 mg PO QHS 04/20/23 07/21/24 History release valacyclovir 500 mg tablet 500 mg PO QHS 04/20/23 07/21/24 History ropinirole 0.25 mg tablet 0.25 mg PO QHS 10/22/23 07/22/24 History multivitamin with minerals-folic 1 tab PO DAILY 11/22/23 Unknown History acid 200 mcg chewable tablet (Women's Multivitamin Gummies) estradiol 0.01% (0.1 mg/gram) 1 appful vaginal 2XW #42.5 grams 01/29/24 Unknown Rx vaginal cream hyoscyamine sulfate 0.125 mg tablet 0.125 mg PO BID-QID PRN dyspepsia 08/08/24 Unknown Rx #90 tabs [id number] See Rx Instructions PO .COMPLEX 08/12/24 Unknown Rx 36,000-114,000-180,000 unit #300 caps capsule,delay rel (Creon) Allergy/AdvReac Type Severity Reaction Status Date / Time hydromorphone HCl (From Allergy Chest Verified 09/30/24 21:52 Dilaudid) tightness prednisone Allergy Itching Verified 09/30/24 21:52 warfarin sodium (From Allergy Chest Verified 09/30/24 21:52 Coumadin) tightness milnacipran HCl (From AdvReac Other Verified 09/30/24 21:52 Savella) pregabalin (From Lyrica) AdvReac Rash Verified 09/30/24 21:52 rivaroxaban (From Xarelto) AdvReac Nausea Verified 09/30/24 21:52 Family History Mother Hypertension Hyperlipidemia alcohol/drug addiction Allergies Father alcohol/drug addiction Sister Thyroid disorder Fibromyalgia Blindness Grandmother Emphysema lung Heart disease Grandfather Emphysema lung Brother alcohol/drug addiction Surgical History History of weight loss surgery Hx of tonsillectomy History of nasal surgery S/P foot surgery, left History of bilateral breast reduction surgery History of tubal ligation History of bilateral salpingectomy History of laparoscopic-assisted vaginal hysterectomy History of laparoscopic cholecystectomy History of esophagogastroduodenoscopy (EGD) Hx of colonoscopy History of carpal tunnel release Social History 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 Smoking Status: Never smoker alcohol intake: former what type of physical activity do you participate in: walking seatbelt use: always do you feel safe at home: Yes additional social history: lottie [facility] ROS ED Constitutional Constitutional ED: Denies chills or fever(s) Eyes Eyes: Denies change in vision ENT ENT ED: Denies sore throat Cardiovascular Cardiovascular: Reports chest pain; Denies palpitations or racing heartbeat Respiratory/Chest Respiratory/Chest: Denies cough or dyspnea Gastrointestinal Gastrointestinal: Denies abdominal pain, diarrhea, nausea or vomiting Genitourinary Genitourinary ED: Denies dysuria Musculoskeletal Musculoskeletal: Denies back pain Integumentary Denies rash Neurologic Neurologic: Denies headache(s) Hematologic/Lymphatic Hematologic/Lymphatic: Denies easy bleeding or easy bruising EXAM Physical Exam Const Vital Signs: 09/30/24 21:49 09/30/24 22:18 09/30/24 22:49 Temperature 97.8 F Temperature Source Temporal Pulse Rate 62 59 L Respiratory Rate 16 14 Respiratory Effort Normal Non-Labored Blood Pressure 149/86 H 146/72 H Blood Pressure Mean 107 96 Pulse Ox 100 99 Oxygen Delivery Method Room Air Room Air 09/30/24 23:00 09/30/24 23:03 10/01/24 00:19 Temperature 98.1 F Temperature Source Pulse Rate 59 L 58 L Respiratory Rate 18 Respiratory Effort Blood Pressure 123/78 H Blood Pressure Mean 93 Pulse Ox 98 98 Oxygen Delivery Method Room Air Positive well nourished and well developed General Appearance ED: well developed; Negative for pallor HEENT HEENT Narrative: Normocephalic atraumatic Eyes PERRL and EOMs intact bilaterally General Eye ED: Negative for scleral icterus Neck supple and no JVD Neck Narrative: No nuchal rigidity or meningeal signs Chest Wall Chest Narrative: No bony deformity or subcutaneous emphysema noted There is pain with palpation of the chest wall however patient states this is slightly different than the symptoms she has been experiencing Resp normal respiratory effort and clear to auscultation bilaterally Cardio regular rate and regular rhythm Rate: other Other Details: Heart is regular rate and rhythm without murmurs rubs or gallop Radial and carotid pulses are equal and symmetric GI normal to inspection, nondistended, normoactive bowel sounds, non-tender, non-distended and no masses Auscultation: normoactive bowel sounds Palpation: soft Extremity normal to inspection Extremity Narrative: No asymmetric edema no pitting edema negative Homans' sign bilaterally Neuro oriented x3, CN's II-XII intact bilaterally and no sensory deficits noted Sensorium / Orientation: alert Motor Exam: strength 5/5 throughout Psych mental status grossly normal Skin no rashes or lesions noted General Skin Exam: Negative for jaundice or pallor MDM MDM MDM Narrative Medical decision making narrative: Patient arrived to the ER hypertensive but otherwise with stable vitals. She reported intermittent sharp chest pain. 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 Based on the fact she has had 2 previous DVTs and is not on anticoagulation there is concern this could be PE and therefore D-dimer was obtained. In order to rule out lung pathology such as pneumonia pneumothorax or pleural effusion a chest x-ray was ordered as well. Imaging study revealed no acute finding and laboratory studies revealed no clinically significant finding. The patient's D-dimer was normal going against PE and/or dissection. The troponin was less than 6. I discussed with patient the need to obtain a repeat troponin in order to ensure there is no elevation and rule out cardiac dysfunction. However as her symptoms are not classic cardiac in the first troponin is less than 6 the concern that this is truly cardiac is low. Patient states that she no longer has chest discomfort. She states she does not want to be in the ER any longer and her vitals have improved as well. Therefore at this time with overall negative workup and resolution of symptoms there is no need for further intervention or monitoring in the ER and she is otherwise safe for discharge History & Record Review Discussion w/independent historian: Patient and Significant other Lab Data Attestation: I reviewed the patient's lab results. Labs: Laboratory Results - last 24 hr 09/30/24 21:57 WBC 6.9 RBC 4.54 Hgb 13.8 Hct 41.4 MCV 91.2 MCH 30.4 MCHC 33.3 RDW Std Deviation 41.7 RDW Coeff of [place] 12.7 Plt Count 212 MPV 11.3 Immature Gran % (Auto) 0.300 Neut % (Auto) 59.6 Lymph % (Auto) 31.7 [place] % (Auto) 6.3 Eos % (Auto) 1.4 Baso % (Auto) 0.7 Absolute Neuts (auto) 4.1 Absolute Lymphs (auto) 2.20 Nucleated RBC % 0 D-Dimer Quant (PE/DVT) < 0.27 L Sodium 140 Potassium 4.6 Chloride 102 Carbon Dioxide 25.8 Anion Gap 12 BUN 12 Creatinine 0.78 Estim Creat Clear Calc 84.74 Est GFR (MDRD) Non-Af 91 BUN/Creatinine Ratio 15.3 Glucose 92 Calcium 9.2 Magnesium 2.1 Troponin T High Sens < 6 Radiography Diagnostic Testing: Clinical Impression(s) from Imaging Studies Chest X-Ray 09/30/24 22:22 IMPRESSION: No acute chest findings Reading Location: [place] [id number] Chest x-ray is interpreted by the emergency medicine physician reveals no acute infiltrate pneumothorax or pleural effusion Discharge Plan Triage Chief Complaint: Chest Pain ED Provider: Aakash Dumont Dx/Rx/DC Orders Clinical Impression: Nonspecific chest pain, Fibromyalgia, HTN (hypertension), GERD (gastroesophageal reflux disease) Instructions: ED Chest Pain, Uncertain Cause Prescriptions: No Action valacyclovir 500 mg tablet 500 mg PO QHS Patient Comments: TAKE 1 TABLET BY MOUTH 2 TIMES A DAY pantoprazole 40 mg tablet,delayed release (DR/EC) 40 mg PO QHS Patient Comments: TAKE 1 TABLET BY MOUTH EVERY DAY escitalopram oxalate 5 mg tablet 5 mg PO QHS Patient Comments: TAKE 1 TABLET BY MOUTH AT BEDTIME FOR MOOD ropinirole 0.25 mg tablet 0.25 mg PO QHS multivit with min-folic acid [Women's Multivitamin Gummies] 200 mcg tablet,chewable 1 tab PO DAILY estradiol 0.01 % (0.1 mg/gram) cream 1 appful vaginal 2XW Qty: 42.5 3RF Rx Instructions: use just a fingertip amount to the external vaginal area hyoscyamine sulfate 0.125 mg tablet 0.125 mg PO BID-QID PRN (Reason: dyspepsia) Qty: 90 1RF Zyrtec 10 MG capsule 10 mg PO QHS Creon 36,000-114,000- 180,000 unit capsule,delayed release(DR/EC) See Rx Instructions PO .COMPLEX Qty: 300 2RF Rx Instructions: take 2-3 capsules with meals, take 1-2 capsules with snacks. Max of 10 per day Primary Care Provider: Tang Olguin Referrals: Tang Olguin, [Primary Care Provider] - Activity Restrictions/Additional Instructions: Your workup today did not show any sign of lung pathology such as pneumonia or fluid buildup in the lung, your D-dimer is negative going against a blood clot, and your EKG and troponin/heart enzyme were normal indicating no sign of heart damage. Continue all of your home medication as directed by your doctor and return to the ER should you have any further concerns Print Language: Welsh Disposition Disposition: Home, Self Care Discharge Date/Time: 10/01/24 00:19
[2024-10-01 00:19] VITALS: BP 123/78; PULSE 58; RESP 18; TEMP 36.7; O2SAT 98
== END 2024-10-01 00:19 | disposition home or self-care (01) ==
PROVIDERS: Emergency Provider Emergency Medicine; PCP Student in an Organized Health Care Education/Training Program; Visit Provider Emergency Medicine
DX: R07.9 Chest pain, unspecified (principal); E78.00 Pure hypercholesterolemia, unspecified; M79.7 Fibromyalgia; I10 Essential (primary) hypertension; K21.9 Gastro-esophageal reflux disease without esophagitis; Z79.899 Other long term (current) drug therapy; Z86.718 Personal history of other venous thrombosis and embolism; Z86.16 Personal history of COVID-19
CPT/HCPCS: 71046; 80048; 83735; 84484; 85025; 85379; 93005; 96374; 96375; 96376; 99284; A4216; J2405

== ENCOUNTER 2024-11-12 16:49 | Emergency (ER) | payer OTHER, SELFPAY ==
[2024-11-12 16:50] VITALS: BP 127/76; PULSE 55; RESP 16; TEMP 36.6; O2SAT 98; BMI 33.3
--- NOTE | 2024-11-12 17:58 | US_ITS ---
PROCEDURE: VENOUS DUPLEX IMAG/LIMITED/UNI 11/12/2024 REASON FOR EXAM: Right lower extremity swelling TECHNIQUE: Procedure Code: USVDUL Modality: US Procedure: VENOUS DUPLEX IMAG/LIMITED/UNI COMPARISON: none FINDINGS: There is no intraluminal echogenicity to suggest the presence of a deep venous thrombosis. Appropriate respiratory variation, augmentation and venous compression is noted. US/Venous Duplex Imag/Limited/Uni IMPRESSION: No acute occlusive deep vein thrombosis. Reading Location: [facility]
--- NOTE | 2024-11-12 19:45 | EX.ED.DYSGE1 ---
HPI History of Present Illness Chief Complaint: Lower Extremity Injury Detail of Chief Complaint: Sent in by surgeon to evaluate for DVT Informant: other (Nurse informing that she was sent in for DVT. She asked if she could order it. Eyes stated yes.) Narrative Narrative: Patient is a 54-year-old woman. She had recent surgery. She was sent in to rule out DVT. She has had a clot in the leg that she is complaining of pain. Verbal order was given for venous duplex study. When I went back to see patient at 1939 there was no one in the room. Registration states she has not seen her. Spoke with her nurse Karla. States she stated that patient was upset because she was not given Tylenol. Was not aware the patient wanted Tylenol until I went back to see, 1944 (is when states she inform me that she was not happy because of the way.. Prior similar symptoms: Yes Recent Illness/Hospitalization: Yes PFSH PFSH Medical History Arthritis History of DVT (deep vein thrombosis) Easy bruising Difficulty chewing PONV (postoperative nausea and vomiting) Contusion of right lesser toe(s) without damage to nail, initial encounter URI (upper respiratory infection) Mid back pain on right side Hx of blood clots Fibromyalgia Fatty liver Restless legs Difficulty swallowing History of hiatal hernia History of IBS Gastric reflux Non-smoker Asthma History of echocardiogram History of stress test Cardiology follow-up encounter COVID-19 uterine ablation r middle trigger finger release Delivery with history of Vitamin D deficiency Trigger ring finger of right hand Trigger middle finger of right hand Temporomandibular joint disorder Seizures Right hand paresthesia Rheumatoid arthritis PTSD (post-traumatic stress disorder) Patellofemoral disorder Impaired fasting glucose HTN (hypertension) Hypercholesteremia HSV infection Hayfever GERD (gastroesophageal reflux disease) Fibromyalgia muscle pain Endometriosis Diaphragmatic hernia without mention of obstruction or gangrene Depressive disorder Colon polyps Carpal tunnel syndrome Anxiety Calcaneal spur Aortic aneurysm Home Medications ?Medication ?Instructions ?Recorded ?Last Taken ?Type cetirizine 10 mg capsule (Zyrtec) 10 mg PO QHS allergies 01/22/17 07/22/24 History escitalopram oxalate 5 mg tablet 5 mg PO QHS 04/20/23 Unknown History pantoprazole 40 mg tablet,delayed 40 mg PO QHS 04/20/23 07/21/24 History release valacyclovir 500 mg tablet 500 mg PO QHS 04/20/23 07/21/24 History ropinirole 0.25 mg tablet 0.25 mg PO QHS 10/22/23 07/22/24 History multivitamin with minerals-folic 1 tab PO DAILY 11/22/23 Unknown History acid 200 mcg chewable tablet (Women's Multivitamin Gummies) estradiol 0.01% (0.1 mg/gram) 1 appful vaginal 2XW #42.5 grams 01/29/24 Unknown Rx vaginal cream hyoscyamine sulfate 0.125 mg tablet 0.125 mg PO BID-QID PRN dyspepsia 08/08/24 Unknown Rx #90 tabs [id number] See Rx Instructions PO .COMPLEX 08/12/24 Unknown Rx 36,000-114,000-180,000 unit #300 caps capsule,delay rel (Creon) Allergy/AdvReac Type Severity Reaction Status Date / Time hydromorphone HCl (From Allergy Chest Verified 11/12/24 16:50 Dilaudid) tightness prednisone Allergy Itching Verified 11/12/24 16:50 warfarin sodium (From Allergy Chest Verified 11/12/24 16:50 Coumadin) tightness milnacipran HCl (From AdvReac Other Verified 11/12/24 16:50 Savella) pregabalin (From Lyrica) AdvReac Rash Verified 11/12/24 16:50 rivaroxaban (From Xarelto) AdvReac Nausea Verified 11/12/24 16:50 Family History Mother Hypertension Hyperlipidemia alcohol/drug addiction Allergies Father alcohol/drug addiction Sister Thyroid disorder Fibromyalgia Blindness Grandmother Emphysema lung Heart disease Grandfather Emphysema lung Brother alcohol/drug addiction Surgical History History of weight loss surgery Hx of tonsillectomy History of nasal surgery S/P foot surgery, left History of bilateral breast reduction surgery History of tubal ligation History of bilateral salpingectomy History of laparoscopic-assisted vaginal hysterectomy History of laparoscopic cholecystectomy History of esophagogastroduodenoscopy (EGD) Hx of colonoscopy History of carpal tunnel release Social History 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 Smoking Status: Never smoker alcohol intake: former what type of physical activity do you participate in: walking seatbelt use: always do you feel safe at home: Yes additional social history: fiance - Chintan EXAM Physical Exam Const Vital Signs: 11/12/24 16:50 Temperature 97.9 F Temperature Source Oral Pulse Rate 55 L Respiratory Rate 16 Blood Pressure 127/76 H Blood Pressure Mean 93 Pulse Ox 98 Oxygen Delivery Method Room Air MDM MDM MDM Narrative Medical decision making narrative: Based on chief complaint and the fact that her surgeon sent her in to rule out DVT verbal order was given for venous duplex study. As of 1946 patient has not been seen by me. Radiography Diagnostic Testing: Clinical Impression(s) from Imaging Studies Venous Duplex 11/12/24 17:58 IMPRESSION: No acute occlusive deep vein thrombosis. Reading Location: [facility] Patient received on her phone that the venous duplex was negative. She left prior to me seeing her. Discharge Plan Triage Chief Complaint: Lower Extremity Injury ED Provider: Provider,Ed Physician Dx/Rx/DC Orders Clinical Impression: Pain and swelling of right lower extremity, History of deep vein thrombosis, HTN (hypertension), Fibromyalgia, Depression, History of Faith-en-Y gastric bypass Prescriptions: No Action valacyclovir 500 mg tablet 500 mg PO QHS Patient Comments: TAKE 1 TABLET BY MOUTH 2 TIMES A DAY pantoprazole 40 mg tablet,delayed release (DR/EC) 40 mg PO QHS Patient Comments: TAKE 1 TABLET BY MOUTH EVERY DAY escitalopram oxalate 5 mg tablet 5 mg PO QHS Patient Comments: TAKE 1 TABLET BY MOUTH AT BEDTIME FOR MOOD ropinirole 0.25 mg tablet 0.25 mg PO QHS multivit with min-folic acid [Women's Multivitamin Gummies] 200 mcg tablet,chewable 1 tab PO DAILY estradiol 0.01 % (0.1 mg/gram) cream 1 appful vaginal 2XW Qty: 42.5 3RF Rx Instructions: use just a fingertip amount to the external vaginal area hyoscyamine sulfate 0.125 mg tablet 0.125 mg PO BID-QID PRN (Reason: dyspepsia) Qty: 90 1RF Zyrtec 10 MG capsule 10 mg PO QHS Creon 36,000-114,000- 180,000 unit capsule,delayed release(DR/EC) See Rx Instructions PO .COMPLEX Qty: 300 2RF Rx Instructions: take 2-3 capsules with meals, take 1-2 capsules with snacks. Max of 10 per day Primary Care Provider: Tang Olguin Referrals: Tang Olguin DO [Primary Care Provider] - Print Language: Bolivian Disposition Disposition: LEFT WITHOUT BEING SEEN Discharge Date/Time: 11/12/24 20:01
== END 2024-11-12 20:01 | disposition left against medical advice (07) ==
PROVIDERS: PCP Student in an Organized Health Care Education/Training Program
DX: M79.89 Other specified soft tissue disorders (principal); M06.9 Rheumatoid arthritis, unspecified; M79.604 Pain in right leg; I10 Essential (primary) hypertension; M79.7 Fibromyalgia; K21.9 Gastro-esophageal reflux disease without esophagitis; F32.A Depression, unspecified; F41.9 Anxiety disorder, unspecified; F43.10 Post-traumatic stress disorder, unspecified; Z98.84 Bariatric surgery status; Z86.718 Personal history of other venous thrombosis and embolism; Z79.899 Other long term (current) drug therapy
CPT/HCPCS: 93971; 99282